=== PATIENT | male | born 1990 | race Caucasian/White ===

== ENCOUNTER 2017-01-12 22:11 | Emergency (ER) | payer MEDICAID ==
[~2017-01-12] VITALS: Ht 180.3 cm; Wt 72.6 kg
[~2017-01-12 22:11] MED LIST: /QUET10TA PO; /QUET25TA PO; DEPA500T2 PO; No Historical Meds; No Home Meds; QUET20XRTB PO; QUET30XR OR; RISP4TAB33 PO; SERO1TAB PO; SERO50TA PO; SEROQUEL 150 MG PO; VIMP50TA3 PO; ZYPR5TAB2 PO
[2017-01-12 22:54] LABS: MEAN CORPUSCULAR HEMOGLOBIN 30.1 pg (27.0-33.0); MEAN CORPUSCULAR VOLUME 88.5 fl (80.0-96.0); RED CELL DISTRIBUTION WIDTH 12.2 % (11.5-14.5); WHITE BLOOD COUNT 10.4 K/mm3 (4.0-10.0)
[2017-01-12 23:25] LABS: ALBUMIN 4.7 GM/DL (3.2-5.2); ALBUMIN/GLOBULIN RATIO 1.42 (1.00-1.93); ALKALINE PHOSPHATASE 134 U/L (45-117); ALT/SGPT 30 U/L (12-78); ANION GAP 9 MEQ/L (8-16); AST/SGOT 22 U/L (15-37); BILIRUBIN,DIRECT 0.2 MG/DL (0.0-0.2); BILIRUBIN,TOTAL 0.8 MG/DL (0.2-1.0); BLOOD UREA NITROGEN 7 MG/DL (7-18); CALCIUM LEVEL 9.1 MG/DL (8.5-10.1); CARBON DIOXIDE LEVEL 29 MEQ/L (21-32); CHLORIDE LEVEL 103 MEQ/L (98-107); CREATININE FOR GFR 0.81 MG/DL (0.70-1.30); GLOMERULAR FILTRATION RATE > 60.0 (>60); GLUCOSE, FASTING 76 MG/DL (70-105); POTASSIUM SERUM 3.6 MEQ/L (3.5-5.1); SODIUM LEVEL 141 MEQ/L (136-145)
[2017-01-13 00:49] VITALS: BP 128/85
== END 2017-01-13 00:09 | disposition home or self-care (01) ==
LOC: M ED 22:39
DX: F88 Other disorders of psychological development (principal); Z88.1 Allergy status to other antibiotic agents; Z79.899 Other long term (current) drug therapy; F31.9 Bipolar disorder, unspecified
CPT/HCPCS: 36415; 80048; 80076; 84443; 85027; 99284; G0480

== ENCOUNTER 2017-01-17 18:50 | Inpatient (IN) | payer MEDICAID ==
[2017-01-17 19:55] LABS: MEAN CORPUSCULAR HEMOGLOBIN 29.8 pg (27.0-33.0); MEAN CORPUSCULAR HGB CONC 34.4 g/dl (32.0-36.5); MEAN CORPUSCULAR VOLUME 86.7 fl (80.0-96.0); RED CELL DISTRIBUTION WIDTH 12.2 % (11.5-14.5); WHITE BLOOD COUNT 8.6 K/mm3 (4.0-10.0)
[2017-01-17 20:22] LABS: METHADONE URINE NEGATIVE (NEGATIVE)
[2017-01-17 20:33] LABS: ALBUMIN 4.5 GM/DL (3.2-5.2); ALKALINE PHOSPHATASE 118 U/L (45-117); ALT/SGPT 24 U/L (12-78); ANION GAP 10 MEQ/L (8-16); AST/SGOT 18 U/L (15-37); BILIRUBIN,DIRECT 0.1 MG/DL (0.0-0.2); BILIRUBIN,TOTAL 0.5 MG/DL (0.2-1.0); BLOOD UREA NITROGEN 6 MG/DL (7-18); CALCIUM LEVEL 9.3 MG/DL (8.5-10.1); CARBON DIOXIDE LEVEL 26 MEQ/L (21-32); CHLORIDE LEVEL 106 MEQ/L (98-107); CREATININE FOR GFR 0.75 MG/DL (0.70-1.30); GLOMERULAR FILTRATION RATE > 60.0 (>60); GLUCOSE, FASTING 92 MG/DL (70-105); POTASSIUM SERUM 3.6 MEQ/L (3.5-5.1); SODIUM LEVEL 142 MEQ/L (136-145); TOTAL PROTEIN 7.5 GM/DL (6.4-8.2)
[2017-01-17] MEDS ORDERED: OLANZapine INTRAMUSCULAR 10 MG VIAL (S0166) IM ONE (21:30)
[2017-01-17] MEDS ORDERED: ACETAMINOPHEN TAB 650MG DOSE (2X325MG) PO PRN (21:45)
[2017-01-17] MEDS ORDERED: MOM 30ML SUSPENSION UDC PO PRN (21:45)
[2017-01-17] MEDS ORDERED: traZODone 50 MG TAB PO PRN (21:45)
[2017-01-17] MEDS ORDERED: LORazepam 1 MG TAB PO PRN (21:45)
[2017-01-17] MEDS ORDERED: diphenhydrAMINE 25 MG CAP PO PRN (21:45)
[2017-01-17] MEDS ORDERED: MAALOX 30 ML SUSP *UDC PO PRN (21:45)
[2017-01-17] MEDS ORDERED: QUET30XR PO (22:02)
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
[2017-01-18 18:00] VITALS: BP 149/78
[2017-01-18] MEDS: QUEtiapine FUMARATE 50 MG TAB PO SCH ×2 (20:15→21:36)
[2017-01-18] MEDS: HALOPERIDOL 5 MG TAB PO PRN (20:15)
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
--- NOTE | 2017-01-19 16:32 | IPN ---
DATE: 01/19/2017 SUBJECTIVE: The patient is a 26-year-old man who was admitted on 01/17/2017 with a diagnosis of personality change due to traumatic brain injury. He had presented with paranoid ideation about others plotting to harm him. He is seen today and his treatment reviewed. He currently is being prescribed only quetiapine 50 mg orally at bedtime for insomnia. No other psychotropic medication is presently prescribed. In addition to the medication, he is provided with therapeutic programming including group and activity therapy. He reports that he has been doing fine and had a good sleep during the night. He says he is no longer experiencing thoughts that others are out to get him or to kill him. He has been observed interacting normally with his peers and participating in activities. He has not been a management problem since his admission. There is no evidence of him being depressed or experiencing any notable psychotic symptoms. OBSERVATION: His vital signs are stable. He is adequately groomed, appropriately dressed in [facility]. His speech is fluent. Thought process is coherent and logical. No evidence of delusion and he denies any form of hallucination. His mood is presently not depressed or elated. He denies suicidal thoughts, plan, or intent as well as homicidal ideation. ASSESSMENT: He continues to satisfy criteria for his diagnosis of personality change due to other medical condition, in this care traumatic brain injury. He has been noted to show some improvement in his thinking and presently does not appear to be at risk of danger to self or to others. There are no gross psychotic features present at this time. PLAN: Current treatment will be continued and patient reevaluated the next 24 hours and if stable will be scheduled for discharge the same day with appropriate followup plan.
[2017-01-19 18:00] VITALS: BP 133/82
[2017-01-19] MEDS: HALOPERIDOL 5 MG TAB PO PRN (21:09)
[2017-01-20 06:36] VITALS: BP 137/84
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
== END 2017-01-20 13:00 | disposition home or self-care (01) | DRG 752 ==
LOC: M ED 19:19 → M ED INP 21:49 → M PSY 22:20
PROVIDERS: ADMIT Psychiatry & Neurology Child & Adolescent Psychiatry; ATTEND Psychiatry & Neurology Psychiatry
DX: F60.89 Other specific personality disorders (principal); F17.200 Nicotine dependence, unspecified, uncomplicated; G47.00 Insomnia, unspecified

== ENCOUNTER 2017-01-31 18:22 | Emergency (ER) | payer MEDICAID ==
[~2017-01-31] VITALS: Ht 180.3 cm; Wt 77.1 kg
[~2017-01-31 18:22] MED LIST changes: +QUET30XR PO
[2017-01-31] MEDS ORDERED: HALDOL PO (18:40)
[2017-01-31 19:55] LABS: ALBUMIN 4.1 GM/DL (3.2-5.2); ALBUMIN/GLOBULIN RATIO 1.46 (1.00-1.93); ALKALINE PHOSPHATASE 129 U/L (45-117); ALT/SGPT 29 U/L (12-78); ANION GAP 7 MEQ/L (8-16); AST/SGOT 21 U/L (15-37); BILIRUBIN,DIRECT 0.1 MG/DL (0.0-0.2); BILIRUBIN,TOTAL 0.3 MG/DL (0.2-1.0); BLOOD UREA NITROGEN 8 MG/DL (7-18); CALCIUM LEVEL 8.5 MG/DL (8.5-10.1); CARBON DIOXIDE LEVEL 27 MEQ/L (21-32); CHLORIDE LEVEL 107 MEQ/L (98-107); CREATININE FOR GFR 0.68 MG/DL (0.70-1.30); GLOMERULAR FILTRATION RATE > 60.0 (>60); GLUCOSE, FASTING 114 MG/DL (70-105); POTASSIUM SERUM 3.7 MEQ/L (3.5-5.1); SODIUM LEVEL 141 MEQ/L (136-145); TOTAL PROTEIN 6.9 GM/DL (6.4-8.2)
[2017-01-31 19:58] LABS: MEAN CORPUSCULAR HEMOGLOBIN 30.1 pg (27.0-33.0); MEAN CORPUSCULAR HGB CONC 34.1 g/dl (32.0-36.5); MEAN CORPUSCULAR VOLUME 88.4 fl (80.0-96.0); RED CELL DISTRIBUTION WIDTH 12.6 % (11.5-14.5); WHITE BLOOD COUNT 7.4 K/mm3 (4.0-10.0)
[2017-01-31 20:43] LABS: METHADONE URINE NEGATIVE (NEGATIVE)
[2017-01-31 22:03] VITALS: BP 144/91
== END 2017-01-31 22:05 | disposition home or self-care (01) ==
LOC: M ED 19:44
DX: F88 Other disorders of psychological development (principal); Z79.899 Other long term (current) drug therapy; Z88.1 Allergy status to other antibiotic agents
CPT/HCPCS: 36415; 80048; 80076; 80306; 84443; 85027; 99283; G0480

== ENCOUNTER 2017-02-01 18:01 | Emergency (ER) | payer MEDICAID ==
[~2017-02-01] VITALS: Ht 177.8 cm; Wt 78.5 kg
[~2017-02-01 18:01] MED LIST changes: +HALDOL PO
[2017-02-01 19:36] VITALS: BP 146/72
== END 2017-02-01 19:38 | disposition home or self-care (01) ==
LOC: M ED 19:35
DX: F88 Other disorders of psychological development (principal); Z79.899 Other long term (current) drug therapy; Z88.1 Allergy status to other antibiotic agents

== ENCOUNTER 2017-04-09 15:21 | Emergency (ER) | payer MEDICAID ==
[~2017-04-09] VITALS: Ht 172.7 cm; Wt 72.7 kg
[2017-04-09 17:53] LABS: MEAN CORPUSCULAR HGB CONC 34.1 g/dl (32.0-36.5); RED CELL DISTRIBUTION WIDTH 12.9 % (11.5-14.5); WHITE BLOOD COUNT 6.5 K/mm3 (4.0-10.0)
[2017-04-09 18:12] LABS: METHADONE URINE NEGATIVE (NEGATIVE)
[2017-04-09 18:16] LABS: ALBUMIN 4.8 GM/DL (3.2-5.2); ALKALINE PHOSPHATASE 142 U/L (45-117); ALT/SGPT 33 U/L (12-78); ANION GAP 5 MEQ/L (8-16); AST/SGOT 17 U/L (15-37); BILIRUBIN,DIRECT 0.1 MG/DL (0.0-0.2); BILIRUBIN,TOTAL 0.6 MG/DL (0.2-1.0); BLOOD UREA NITROGEN 8 MG/DL (7-18); CALCIUM LEVEL 9.3 MG/DL (8.5-10.1); CARBON DIOXIDE LEVEL 31 MEQ/L (21-32); CHLORIDE LEVEL 101 MEQ/L (98-107); CREATININE FOR GFR 0.82 MG/DL (0.70-1.30); GLOMERULAR FILTRATION RATE > 60.0 (>60); GLUCOSE, FASTING 86 MG/DL (70-105); POTASSIUM SERUM 3.8 MEQ/L (3.5-5.1); SODIUM LEVEL 137 MEQ/L (136-145)
[2017-04-09] MEDS ORDERED: QUEtiapine FUMARATE 50 MG TAB PO ONE (20:45)
[2017-04-09] MEDS ORDERED: QUEtiapine FUMARATE **XR** 200MG TABLET PO SCH (21:00)
[2017-04-09] MEDS ORDERED: QUEtiapine FUMERATE XR 50 MG TABER PO SCH (21:01)
[2017-04-09] MEDS ORDERED: QUET150T PO (21:14)
[2017-04-09 23:46] VITALS: BP 124/68
--- NOTE | 2017-04-11 09:07 | ECGEPIP ---
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
== END 2017-04-09 23:51 ==
LOC: M ED 16:07
DX: F22 Delusional disorders (principal); F31.9 Bipolar disorder, unspecified; F43.10 Post-traumatic stress disorder, unspecified; F20.9 Schizophrenia, unspecified; R45.850 Homicidal ideations; G47.30 Sleep apnea, unspecified; G43.909 Migraine, unspecified, not intractable, without status migrainosus; G40.909 Epilepsy, unspecified, not intractable, without status epilepticus; R63.0 Anorexia; F17.200 Nicotine dependence, unspecified, uncomplicated; F12.10 Cannabis abuse, uncomplicated; Z79.899 Other long term (current) drug therapy; Z88.8 Allergy status to other drugs, medicaments and biological substances
CPT/HCPCS: 36415; 80048; 80076; 80306; 82550; 84443; 85027; 93005; 99285; G0480

== ENCOUNTER 2017-06-03 02:01 | Emergency (ER) | payer MEDICAID ==
[~2017-06-03] VITALS: Ht 177.8 cm; Wt 72.7 kg
[~2017-06-03 02:01] MED LIST changes: +QUET150T PO
[2017-06-03 03:10] VITALS: BP 140/90
== END 2017-06-03 03:12 | disposition home or self-care (01) ==
LOC: M ED 02:01
DX: F41.8 Other specified anxiety disorders (principal); Z60.9 Problem related to social environment, unspecified; F88 Other disorders of psychological development; F09 Unspecified mental disorder due to known physiological condition; D49.6 Neoplasm of unspecified behavior of brain; Z79.899 Other long term (current) drug therapy; Z88.8 Allergy status to other drugs, medicaments and biological substances

== ENCOUNTER 2017-06-27 19:57 | Emergency (ER) | payer MEDICAID ==
[2017-06-27 20:48] LABS: MEAN CORPUSCULAR HGB CONC 34.6 g/dl (32.0-36.5); MEAN CORPUSCULAR VOLUME 89.7 fl (80.0-96.0); WHITE BLOOD COUNT 7.6 K/mm3 (4.0-10.0)
[2017-06-27 21:20] LABS: METHADONE URINE NEGATIVE (NEGATIVE)
[2017-06-27 21:32] LABS: ALBUMIN 4.1 GM/DL (3.2-5.2); ALBUMIN/GLOBULIN RATIO 1.37 (1.00-1.93); ALKALINE PHOSPHATASE 116 U/L (45-117); ALT/SGPT 32 U/L (12-78); ANION GAP 9 MEQ/L (8-16); AST/SGOT 16 U/L (15-37); BILIRUBIN,DIRECT 0.1 MG/DL (0.0-0.2); BILIRUBIN,TOTAL 0.4 MG/DL (0.2-1.0); BLOOD UREA NITROGEN 9 MG/DL (7-18); CARBON DIOXIDE LEVEL 27 MEQ/L (21-32); CHLORIDE LEVEL 105 MEQ/L (98-107); GLOMERULAR FILTRATION RATE > 60.0 (>60); GLUCOSE, FASTING 92 MG/DL (70-105); POTASSIUM SERUM 4.3 MEQ/L (3.5-5.1); SODIUM LEVEL 141 MEQ/L (136-145); TOTAL PROTEIN 7.1 GM/DL (6.4-8.2)
[2017-06-27 22:01] VITALS: BP 138/92
== END 2017-06-27 22:04 | disposition home or self-care (01) ==
LOC: M ED 19:57
DX: F43.9 Reaction to severe stress, unspecified (principal); G40.909 Epilepsy, unspecified, not intractable, without status epilepticus; Z72.0 Tobacco use
CPT/HCPCS: 36415; 80048; 80076; 80307; 84443; 85027; 99284; G0480

== ENCOUNTER 2017-09-04 14:01 | Emergency (ER) | payer MEDICAID ==
[~2017-09-04] VITALS: Ht 180.3 cm; Wt 87.5 kg
[2017-09-04] MEDS ORDERED: ABIL1INJ2 (14:15)
[2017-09-04 15:00] VITALS: BP 127/86
[2017-09-04 15:04] LABS: MEAN CORPUSCULAR HEMOGLOBIN 30.1 pg (27.0-33.0); MEAN CORPUSCULAR HGB CONC 33.3 g/dl (32.0-36.5); MEAN CORPUSCULAR VOLUME 90.3 fl (80.0-96.0); PLATELET COUNT, AUTOMATED 247 10^3/uL (150-450); RED CELL DISTRIBUTION WIDTH 12.4 % (11.5-14.5); WHITE BLOOD COUNT 7.4 10^3/uL (4.0-10.0)
[2017-09-04 15:28] LABS: METHADONE URINE NEGATIVE (NEGATIVE)
[2017-09-04 15:32] LABS: ALBUMIN 4.1 GM/DL (3.2-5.2); ALBUMIN/GLOBULIN RATIO 1.21 (1.00-1.93); ALKALINE PHOSPHATASE 115 U/L (45-117); ALT/SGPT 47 U/L (12-78); ANION GAP 5 MEQ/L (8-16); AST/SGOT 22 U/L (7-37); BILIRUBIN,DIRECT 0.2 MG/DL (0.0-0.2); BILIRUBIN,TOTAL 0.6 MG/DL (0.2-1.0); BLOOD UREA NITROGEN 15 MG/DL (7-18); CALCIUM LEVEL 9.1 MG/DL (8.5-10.1); CARBON DIOXIDE LEVEL 30 MEQ/L (21-32); CHLORIDE LEVEL 106 MEQ/L (98-107); CREATININE FOR GFR 0.84 MG/DL (0.70-1.30); GLOMERULAR FILTRATION RATE > 60.0 (>60); GLUCOSE, FASTING 86 MG/DL (70-105); POTASSIUM SERUM 4.2 MEQ/L (3.5-5.1); SODIUM LEVEL 141 MEQ/L (136-145); TOTAL PROTEIN 7.5 GM/DL (6.4-8.2)
== END 2017-09-04 17:20 | disposition home or self-care (01) ==
LOC: M ED 14:01
DX: F33.9 Major depressive disorder, recurrent, unspecified (principal); F43.20 Adjustment disorder, unspecified; F20.9 Schizophrenia, unspecified; F90.9 Attention-deficit hyperactivity disorder, unspecified type; Z79.899 Other long term (current) drug therapy; Z88.8 Allergy status to other drugs, medicaments and biological substances
CPT/HCPCS: 36415; 80048; 80076; 80307; 84443; 85027; 99284; G0480

== ENCOUNTER 2017-10-18 12:40 | Emergency (ER) | payer MEDICAID | END 2017-10-18 14:07 | disposition home or self-care (01) | LOC: M ED 12:40 | DX: F22 Delusional disorders (principal); F43.20 Adjustment disorder, unspecified; Z79.899 Other long term (current) drug therapy; Z88.8 Allergy status to other drugs, medicaments and biological substances | CPT/HCPCS: 99284 ==

== ENCOUNTER 2017-11-11 13:48 | Inpatient (IN) | payer MEDICAID ==
[2017-11-11] MEDS: FOLIC ACID 1 MG TAB PO (09:00)
[2017-11-11] MEDS: MULTIVITAMINS/MINERALS THERAP 1 TAB PO (09:00)
[2017-11-11 14:14] LABS: HEMATOCRIT 48.9 % (42.0-52.0); HEMOGLOBIN 16.4 g/dl (14.0-18.0); MEAN CORPUSCULAR HEMOGLOBIN 29.8 pg (27.0-33.0); MEAN CORPUSCULAR HGB CONC 33.5 g/dl (32.0-36.5); MEAN CORPUSCULAR VOLUME 88.9 fl (80.0-96.0); PLATELET COUNT, AUTOMATED 234 10^3/uL (150-450); RED CELL DISTRIBUTION WIDTH 13.2 % (11.5-14.5); WHITE BLOOD COUNT 4.9 10^3/uL (4.0-10.0)
[2017-11-11 14:35] LABS: ALT/SGPT 54 U/L (12-78); ANION GAP 7 MEQ/L (8-16); AST/SGOT 27 U/L (7-37); BLOOD UREA NITROGEN 7 MG/DL (7-18); CARBON DIOXIDE LEVEL 31 MEQ/L (21-32); CHLORIDE LEVEL 107 MEQ/L (98-107); CREATININE FOR GFR 0.79 MG/DL (0.70-1.30); GLOMERULAR FILTRATION RATE > 60.0 (>60); GLUCOSE, FASTING 99 MG/DL (70-105); POTASSIUM SERUM 3.9 MEQ/L (3.5-5.1); SODIUM LEVEL 145 MEQ/L (136-145)
[2017-11-11 14:36] LABS: ACETAMINOPHEN LEVEL < 2.0 UG/ML (10.0-30.0); ALBUMIN 4.3 GM/DL (3.2-5.2); ALBUMIN/GLOBULIN RATIO 1.39 (1.00-1.93); ALKALINE PHOSPHATASE 111 U/L (45-117); BILIRUBIN,DIRECT 0.1 MG/DL (0.0-0.2); BILIRUBIN,TOTAL 0.4 MG/DL (0.2-1.0); ETHYL ALCOHOL (ETHANOL) 0.048 % (0.000-0.010); SALICYLATE LEVEL < 1.7 MG/DL (5.0-30.0); THYROID STIMULATING HORMONE 0.531 uIU/ML (0.358-3.740); TOTAL PROTEIN 7.4 GM/DL (6.4-8.2); VALPROIC ACID (DEPAKOTE) 3.2 UG/ML (50.0-100.0)
[2017-11-11 14:43] LABS: AMPHETAMINES LEVEL URINE NEGATIVE (NEGATIVE); BARBITURATES URINE NEGATIVE (NEGATIVE); BENZODIAZEPINES URINE NEGATIVE (NEGATIVE); CANNABINOIDS URINE NEGATIVE (NEGATIVE); COCAINE METABOLITE URINE NEGATIVE (NEGATIVE); METHADONE URINE NEGATIVE (NEGATIVE); OPIATES URINE NEGATIVE (NEGATIVE); PHENCYCLIDINE URINE NEGATIVE (NEGATIVE)
[2017-11-11] MEDS: LORazepam 1 MG TAB PO (14:58)
[2017-11-11] MEDS ORDERED: MAALOX 30 ML SUSP *UDC PO (19:00)
[2017-11-11] MEDS ORDERED: LORazepam 2 MG TAB PO (19:00)
[2017-11-11] MEDS ORDERED: MOM 30ML SUSPENSION UDC PO (19:00)
[2017-11-11] MEDS ORDERED: ACETAMINOPHEN TAB 650MG DOSE (2X325MG) PO (19:00)
[2017-11-11] MEDS: traZODone 50 MG TAB PO (21:56)
[2017-11-11] MEDS: THIAMINE 100 MG TAB PO (21:56)
[2017-11-11] MEDS: QUEtiapine FUMARATE 50 MG TAB PO (21:56)
[2017-11-12] MEDS: FOLIC ACID 1 MG TAB PO (09:00)
[2017-11-12] MEDS: THIAMINE 100 MG TAB PO ×2 (09:00→20:56)
[2017-11-12] MEDS: MULTIVITAMINS/MINERALS THERAP 1 TAB PO (09:00)
[2017-11-12] MEDS: QUEtiapine FUMARATE 50 MG TAB PO (20:56)
[2017-11-13] MEDS: THIAMINE 100 MG TAB PO ×2 (08:53→20:47)
[2017-11-13] MEDS: FOLIC ACID 1 MG TAB PO (08:53)
[2017-11-13] MEDS: MULTIVITAMINS/MINERALS THERAP 1 TAB PO (08:53)
[2017-11-13] MEDS: HALOPERIDOL 10 MG TAB PO (20:47)
[2017-11-13] MEDS: QUEtiapine FUMARATE 50 MG TAB PO (22:34)
[2017-11-14] MEDS: FOLIC ACID 1 MG TAB PO (08:56)
[2017-11-14] MEDS: HALOPERIDOL 10 MG TAB PO ×2 (08:57→19:54)
[2017-11-14] MEDS: THIAMINE 100 MG TAB PO (08:57)
[2017-11-14] MEDS: MULTIVITAMINS/MINERALS THERAP 1 TAB PO (08:57)
[2017-11-14] MEDS: QUEtiapine FUMARATE 50 MG TAB PO (22:39)
[2017-11-15] MEDS: FOLIC ACID 1 MG TAB PO (09:00)
[2017-11-15] MEDS: MULTIVITAMINS/MINERALS THERAP 1 TAB PO (09:00)
[2017-11-15] MEDS: HALOPERIDOL 10 MG TAB PO (09:18)
== END 2017-11-15 11:45 | disposition home or self-care (01) | DRG 750 ==
LOC: M ED 13:48 → M ED INP 17:05 → M PSY 18:00
DX: F25.0 Schizoaffective disorder, bipolar type (principal); G40.909 Epilepsy, unspecified, not intractable, without status epilepticus; F10.10 Alcohol abuse, uncomplicated; F17.200 Nicotine dependence, unspecified, uncomplicated; Z87.820 Personal history of traumatic brain injury; Z88.1 Allergy status to other antibiotic agents; Z79.899 Other long term (current) drug therapy

== ENCOUNTER 2017-11-17 15:30 | Emergency (ER) | payer MEDICAID | END 2017-11-17 17:36 | disposition home or self-care (01) | LOC: M ED 15:30 | DX: M79.1 Myalgia (principal); F31.9 Bipolar disorder, unspecified; F90.9 Attention-deficit hyperactivity disorder, unspecified type; G47.00 Insomnia, unspecified; Z88.8 Allergy status to other drugs, medicaments and biological substances | CPT/HCPCS: 99283 ==

== ENCOUNTER 2017-11-27 18:15 | Emergency (ER) | payer MEDICAID ==
[2017-11-27 21:16] LABS: HEMATOCRIT 47.1 % (42.0-52.0); HEMOGLOBIN 15.9 g/dl (14.0-18.0); MEAN CORPUSCULAR HEMOGLOBIN 29.7 pg (27.0-33.0); MEAN CORPUSCULAR HGB CONC 33.8 g/dl (32.0-36.5); PLATELET COUNT, AUTOMATED 267 10^3/uL (150-450); RED BLOOD COUNT 5.35 10^6/uL (4.30-6.10); RED CELL DISTRIBUTION WIDTH 12.8 % (11.5-14.5); WHITE BLOOD COUNT 6.5 10^3/uL (4.0-10.0)
[2017-11-27 21:45] LABS: ALBUMIN 4.2 GM/DL (3.2-5.2); ALBUMIN/GLOBULIN RATIO 1.31 (1.00-1.93); ALKALINE PHOSPHATASE 96 U/L (45-117); ALT/SGPT 32 U/L (12-78); ANION GAP 8 MEQ/L (8-16); AST/SGOT 13 U/L (7-37); BILIRUBIN,DIRECT 0.1 MG/DL (0.0-0.2); BILIRUBIN,TOTAL 0.4 MG/DL (0.2-1.0); BLOOD UREA NITROGEN 4 MG/DL (7-18); CALCIUM LEVEL 8.4 MG/DL (8.5-10.1); CARBON DIOXIDE LEVEL 26 MEQ/L (21-32); CHLORIDE LEVEL 110 MEQ/L (98-107); CREATININE FOR GFR 0.68 MG/DL (0.70-1.30); ETHYL ALCOHOL (ETHANOL) 0.242 % (0.000-0.010); GLOMERULAR FILTRATION RATE > 60.0 (>60); GLUCOSE, FASTING 90 MG/DL (70-100); POTASSIUM SERUM 3.8 MEQ/L (3.5-5.1); SALICYLATE LEVEL < 1.7 MG/DL (5.0-30.0); SODIUM LEVEL 144 MEQ/L (136-145); THYROID STIMULATING HORMONE 0.869 uIU/ML (0.358-3.740); TOTAL PROTEIN 7.4 GM/DL (6.4-8.2)
[2017-11-27 21:53] LABS: ACETAMINOPHEN LEVEL < 2.0 UG/ML (10.0-30.0)
== END 2017-11-28 06:54 | disposition home or self-care (01) ==
LOC: M ED 11-28 06:54
DX: F10.220 Alcohol dependence with intoxication, uncomplicated (principal); Y90.1 Blood alcohol level of 20-39 mg/100 ml; F31.9 Bipolar disorder, unspecified; F43.10 Post-traumatic stress disorder, unspecified; F41.9 Anxiety disorder, unspecified; F20.9 Schizophrenia, unspecified; G43.909 Migraine, unspecified, not intractable, without status migrainosus; G40.909 Epilepsy, unspecified, not intractable, without status epilepticus; Z87.820 Personal history of traumatic brain injury; Z88.8 Allergy status to other drugs, medicaments and biological substances
CPT/HCPCS: G0480

== ENCOUNTER 2018-02-02 20:50 | Observation (INO) | payer OTHER, MEDICAID ==
[2018-02-02] MEDS ORDERED: ONDANSETRON 4MG/2ML VIAL (J2405) IV (22:45)
[2018-02-02] MEDS ORDERED: MORPHINE 2 MG/ML 1ML SYRINGE (J2270) IV (22:45)
[2018-02-02] MEDS: CIPROFLOXACIN 400 MG in APPROPRIATE DILUENT 1 EA IV (23:12)
[2018-02-02] MEDS: D5W/LR 1,000 ML IV (23:13)
[2018-02-03] MEDS: ACETAMINOPHEN TAB 650MG DOSE (2X325MG) PO (02:02)
[2018-02-03] MEDS ORDERED: MORPHINE 4 MG/ML 1ML VIAL/SYRINGE (J2270) IV (03:50)
[2018-02-03] MEDS: D5W/LR 1,000 ML IV ×2 (08:25→14:46)
[2018-02-03] MEDS: CIPROFLOXACIN 400 MG in APPROPRIATE DILUENT 1 EA IV (11:21)
[2018-02-03] MEDS ORDERED: fentaNYL 100 MCG/2 ML INJECTION (J3010) As Ordered (14:59)
[2018-02-03] MEDS ORDERED: PROPOFOL 200 MG/20 ML VIAL As Ordered (14:59)
[2018-02-03] MEDS ORDERED: MIDAZOLAM INJ 2 MG/2 ML VIAL (J2250) As Ordered (14:59)
[2018-02-03] MEDS ORDERED: LIDOCAINE 2% INJ 100 MG/5 ML SDV (FOR ANES.) As Ordered (14:59)
[2018-02-03 15:39] LABS: HEMATOCRIT 43.1 % (42.0-52.0); HEMOGLOBIN 15.1 g/dl (13.5-17.5); MEAN CORPUSCULAR HEMOGLOBIN 30.1 pg (27.0-33.0); PLATELET COUNT, AUTOMATED 186 10^3/uL (150-450); RED BLOOD COUNT 5.01 10^6/uL (4.30-6.10); RED CELL DISTRIBUTION WIDTH 11.8 % (11.5-14.5); WHITE BLOOD COUNT 9.2 10^3/uL (4.0-10.0)
[2018-02-03 15:56] LABS: ANION GAP 6 MEQ/L (8-16); BLOOD UREA NITROGEN 9 MG/DL (7-18); CALCIUM LEVEL 8.4 MG/DL (8.5-10.1); CARBON DIOXIDE LEVEL 26 MEQ/L (21-32); CHLORIDE LEVEL 113 MEQ/L (98-107); CREATININE FOR GFR 1.28 MG/DL (0.70-1.30); GLOMERULAR FILTRATION RATE > 60.0 (>60); GLUCOSE, FASTING 101 MG/DL (70-100); SODIUM LEVEL 145 MEQ/L (136-145)
[2018-02-03] MEDS ORDERED: CONRAY-60 60% 50ML VIAL (Q9961) As Ordered (17:07)
[2018-02-03] MEDS ORDERED: dexameTHASONE 4 MG/ML 1ML VIAL (J1100) As Ordered ×2 (17:32)
[2018-02-03] MEDS ORDERED: ONDANSETRON 4MG/2ML VIAL (J2405) As Ordered (17:32)
[2018-02-03] MEDS ORDERED: KETOROLAC 60 MG/2 ML VIAL (J1885) As Ordered (17:33)
[2018-02-03] MEDS: HALOPERIDOL 2 MG TAB PO (20:48)
[2018-02-03] MEDS: VALPROIC ACID 250 MG CAP PO (20:48)
[2018-02-05 12:07] LABS: HIV 1&2 SCREEN CENTAUR NEGATIVE (NEGATIVE)
== END 2018-02-03 22:43 ==
LOC: M ICU 02-03 03:47 → M MSPAV 02-03 14:12 → M ED 20:50 → M ED INP 20:51
PROVIDERS: Urology Pediatric Urology
DX: N20.1 Calculus of ureter (principal); F99 Mental disorder, not otherwise specified; G40.909 Epilepsy, unspecified, not intractable, without status epilepticus; Z87.820 Personal history of traumatic brain injury; R51 Headache; F17.200 Nicotine dependence, unspecified, uncomplicated; Z88.1 Allergy status to other antibiotic agents; Z79.899 Other long term (current) drug therapy
CPT/HCPCS: 52356

== ENCOUNTER 2018-10-03 22:20 | Emergency (ER) | payer MEDICAID, OTHER | END 2018-10-04 01:02 | disposition home or self-care (01) | LOC: M ED 22:20 | DX: Z60.8 Other problems related to social environment (principal); F43.20 Adjustment disorder, unspecified; Z88.8 Allergy status to other drugs, medicaments and biological substances; Z87.891 Personal history of nicotine dependence | CPT/HCPCS: 99284 ==

== ENCOUNTER 2018-10-20 22:27 | Emergency (ER) | payer MEDICAID ==
[~2018-10-20] VITALS: Ht 177.8 cm; Wt 90.5 kg
[~2018-10-20 22:27] MED LIST changes: +ABIL1INJ2; +DEPA1TAB3 PO; +FLOM0.4C39 PO; +FOLI1TAB11 PO; +HALO1TA PO; +HALO1TAB19 PO; +HALO1TAB29 PO; +NITR100C39 PO; +OXYC1TAB23 PO; +PATIENT COMMENT; -QUET150T PO; +QUET150T2 PO; +QUET1TAB10 PO; -QUET20XRTB PO; -QUET30XR PO; +QUET5TAB PO; +SERO200T43 PO; +SERO300T20 PO; +TRAZO50TA PO; +VALP1CAP2 PO; +VITMTA PO
[2018-10-21] MEDS ORDERED: QUET1TAB8 PO (00:02)
[2018-10-21] MEDS ORDERED: DIVA250T7 PO (00:02)
[2018-10-21 00:08] VITALS: BP 151/104
== END 2018-10-21 00:13 | disposition home or self-care (01) ==
LOC: M ED 22:27
DX: Z59.0 Homelessness (principal); Z79.899 Other long term (current) drug therapy; Z88.8 Allergy status to other drugs, medicaments and biological substances

== ENCOUNTER 2019-01-17 15:36 | Emergency (ER) | payer MEDICAID ==
[~2019-01-17 15:36] MED LIST changes: -/QUET10TA PO; -/QUET25TA PO; +DIVA250T7 PO; +HALO10TA20 PO; -HALO1TAB29 PO; +QUET1TAB8 PO; -QUET30XR OR; +SERO1TAB3 PO; +SERO300T PO; +SERO300T20 OR; -SERO300T20 PO
[2019-01-17 16:11] LABS: HEMOGLOBIN 14.7 g/dl (13.5-17.5); MEAN CORPUSCULAR HEMOGLOBIN 29.8 pg (27.0-33.0); MEAN CORPUSCULAR HGB CONC 33.4 g/dl (32.0-36.5); MEAN CORPUSCULAR VOLUME 89.1 fl (80.0-96.0); PLATELET COUNT, AUTOMATED 272 10^3/uL (150-450); RED BLOOD COUNT 4.94 10^6/uL (4.30-6.10); WHITE BLOOD COUNT 7.5 10^3/uL (4.0-10.0)
[2019-01-17 16:43] LABS: ACETAMINOPHEN LEVEL < 2.0 UG/ML (10.0-30.0); ALBUMIN 4.2 GM/DL (3.2-5.2); ALT/SGPT 59 U/L (12-78); BILIRUBIN,DIRECT 0.1 MG/DL (0.0-0.2); BILIRUBIN,TOTAL 0.4 MG/DL (0.2-1.0); BLOOD UREA NITROGEN 7 MG/DL (7-18); CALCIUM LEVEL 8.7 MG/DL (8.5-10.1); CARBON DIOXIDE LEVEL 26 MEQ/L (21-32); CHLORIDE LEVEL 107 MEQ/L (98-107); CREATININE FOR GFR 0.76 MG/DL (0.70-1.30); ETHYL ALCOHOL (ETHANOL) < 0.003 % (0.000-0.010); GLOMERULAR FILTRATION RATE > 60.0 (>60); GLUCOSE, FASTING 85 MG/DL (70-100); POTASSIUM SERUM 3.5 MEQ/L (3.5-5.1); SALICYLATE LEVEL < 1.7 MG/DL (5.0-30.0); SODIUM LEVEL 141 MEQ/L (136-145)
[2019-01-17 17:37] LABS: AMPHETAMINES LEVEL URINE NEGATIVE (NEGATIVE); BARBITURATES URINE NEGATIVE (NEGATIVE); BENZODIAZEPINES URINE NEGATIVE (NEGATIVE); CANNABINOIDS URINE NEGATIVE (NEGATIVE); COCAINE METABOLITE URINE NEGATIVE (NEGATIVE); METHADONE URINE NEGATIVE (NEGATIVE); OPIATES URINE NEGATIVE (NEGATIVE); PHENCYCLIDINE URINE NEGATIVE (NEGATIVE)
[2019-01-17 20:24] VITALS: BP 145/91
[2019-01-18] MEDS ORDERED: IBUP80TA PO (09:17)
== END 2019-01-17 20:25 | disposition home or self-care (01) ==
LOC: M ED 15:36
DX: Z04.6 Encounter for general psychiatric examination, requested by authority (principal); F43.0 Acute stress reaction; F31.9 Bipolar disorder, unspecified; F43.10 Post-traumatic stress disorder, unspecified; Z86.69 Personal history of other diseases of the nervous system and sense organs; Z98.890 Other specified postprocedural states; Z88.1 Allergy status to other antibiotic agents; Z79.899 Other long term (current) drug therapy
CPT/HCPCS: 36415; 80048; 80076; 80307; 84443; 85027; 99284; G0480

== ENCOUNTER 2019-01-18 02:11 | Emergency (ER) | payer MEDICAID ==
[~2019-01-18] VITALS: Ht 182.9 cm; Wt 92.9 kg
[2019-01-18 02:11] VITALS: BP 136/76
--- NOTE | 2019-01-18 07:57 | REP ---
Left tib-fib series: Four views. History: Trauma. Findings: Four views of the left tibia and fibula demonstrate normal bones, joints and soft tissues. No fracture or subluxation is seen. Impression: No fracture noted. Electronically Signed by Jim Starr MD 01/18/2019 07:48 A
[2019-01-18] MEDS ORDERED: IBUP80TA PO (09:17)
== END 2019-01-18 03:40 | disposition home or self-care (01) ==
LOC: M ED 02:11
DX: S80.12XA Contusion of left lower leg, initial encounter (principal); W10.9XXA Fall (on) (from) unspecified stairs and steps, initial encounter; Y92.009 Unspecified place in unspecified non-institutional (private) residence as the place of occurrence of the external cause; Z88.8 Allergy status to other drugs, medicaments and biological substances

== ENCOUNTER 2019-01-18 07:37 | Emergency (ER) | payer MEDICAID ==
[~2019-01-18] VITALS: Ht 175.3 cm; Wt 92.9 kg
[2019-01-18 07:38] VITALS: BP 138/89
[2019-01-18] MEDS ORDERED: IBUP80TA PO (09:17)
[2019-01-18] MEDS ORDERED: IBUPROFEN 800 MG TAB PO ONE (09:30)
== END 2019-01-18 09:46 | disposition home or self-care (01) ==
LOC: M ED 07:37
DX: S80.12XD Contusion of left lower leg, subsequent encounter (principal); W10.8XXD Fall (on) (from) other stairs and steps, subsequent encounter; Y92.009 Unspecified place in unspecified non-institutional (private) residence as the place of occurrence of the external cause; Z88.8 Allergy status to other drugs, medicaments and biological substances

== ENCOUNTER 2019-08-20 21:31 | Emergency (ER) | payer MEDICAID ==
[~2019-08-20] VITALS: Ht 177.8 cm; Wt 98.9 kg
[~2019-08-20 21:31] MED LIST changes: +IBUP80TA PO; +TRAZ1TAB10 PO; -TRAZO50TA PO
[2019-08-20] MEDS ORDERED: QUET1TAB10 PO (21:41)
[2019-08-20 22:26] LABS: BASO # 0.1 10^3/uL (0.0-0.2); BASO % 0.6 % (0.0-1.0); EOS # 0.1 10^3/uL (0.0-0.5); EOS % 1.2 % (0.0-3.0); HEMATOCRIT 46.2 % (42.0-52.0); HEMOGLOBIN 15.8 g/dl (13.5-17.5); LYMPH # 2.6 10^3/uL (1.5-5.0); LYMPH % 28.6 % (24.0-44.0); MEAN CORPUSCULAR HEMOGLOBIN 29.8 pg (27.0-33.0); MEAN CORPUSCULAR HGB CONC 34.2 g/dl (32.0-36.5); MONO # 0.7 10^3/uL (0.0-0.8); MONO % 7.8 % (0.0-5.0); NEUTROPHILS # 5.5 10^3/uL (1.5-8.5); NEUTROPHILS % 61.4 % (36.0-66.0); PLATELET COUNT, AUTOMATED 268 10^3/uL (150-450); RED BLOOD COUNT 5.31 10^6/uL (4.30-6.10)
[2019-08-20 22:44] LABS: BLOOD UREA NITROGEN 11 MG/DL (7-18); CALCIUM LEVEL 9.2 MG/DL (8.5-10.1); CARBON DIOXIDE LEVEL 24 MEQ/L (21-32); CHLORIDE LEVEL 111 MEQ/L (98-107); CK-MB VALUE MASS 1.4 NG/ML (<3.6); CPK CREATINE PHOSPHOKINASE 222 U/L (39-308); CREATININE FOR GFR 0.79 MG/DL (0.70-1.30); GLOMERULAR FILTRATION RATE > 60.0 (>60); GLUCOSE, FASTING 94 MG/DL (70-100); MB/CK RELATIVE INDEX 0.63 (< OR =4); POTASSIUM SERUM 3.6 MEQ/L (3.5-5.1); SODIUM LEVEL 140 MEQ/L (136-145); TROPONIN I 0.02 NG/ML (< 0.10)
--- NOTE | 2019-08-20 22:51 | ECGEPIP ---
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
[2019-08-21 00:38] VITALS: BP 154/95
--- NOTE | 2019-08-21 08:00 | REP ---
Clinical: Acute chest pain . Comparison: None . Technique: PA and lateral. Findings: The mediastinum and cardiac silhouette are normal. The lung fry are clear and without acute consolidation, effusion, or pneumothorax. The skeletal structures are intact and normal. Impression: 1. No acute cardiopulmonary process. Electronically Signed by Ja Murphy MD 08/21/2019 07:52 A
== END 2019-08-21 00:42 | disposition left against medical advice (07) ==
LOC: M ED 21:31
DX: R07.89 Other chest pain (principal)

== ENCOUNTER 2019-11-22 18:21 | Emergency (ER) | payer MEDICAID ==
[2019-11-22 18:23] VITALS: BP 176/94
== END 2019-11-22 21:00 | disposition home or self-care (01) ==
LOC: M ED 18:21
DX: F43.9 Reaction to severe stress, unspecified (principal); R45.4 Irritability and anger; F31.9 Bipolar disorder, unspecified; F90.9 Attention-deficit hyperactivity disorder, unspecified type; G47.00 Insomnia, unspecified; F42.9 Obsessive-compulsive disorder, unspecified; Z79.899 Other long term (current) drug therapy

== ENCOUNTER 2020-02-14 12:40 | Emergency (ER) | payer MEDICAID ==
[~2020-02-14 12:40] MED LIST changes: +QUET100T2 PO; -QUET1TAB8 PO
[2020-02-14 14:56] VITALS: BP 137/78
== END 2020-02-14 14:58 | disposition home or self-care (01) ==
LOC: M ED 12:40
DX: F43.0 Acute stress reaction (principal); F99 Mental disorder, not otherwise specified; F17.200 Nicotine dependence, unspecified, uncomplicated; Z88.1 Allergy status to other antibiotic agents

== ENCOUNTER 2020-03-22 22:23 | Emergency (ER) | payer MEDICAID ==
[~2020-03-22] VITALS: Ht 172.7 cm; Wt 86.4 kg
[~2020-03-22 22:23] MED LIST changes: -QUET1TAB10 PO; +QUET300T2 PO; +QUET50TA3 PO; -QUET5TAB PO
[2020-03-22] MEDS ORDERED: SERO1TAB2 PO (22:44)
[2020-03-22 22:55] VITALS: BP 141/92
[2020-03-22 22:57] LABS: HEMATOCRIT 44.2 % (42.0-52.0); HEMOGLOBIN 15.2 g/dl (13.5-17.5); MEAN CORPUSCULAR HEMOGLOBIN 29.8 pg (27.0-33.0); MEAN CORPUSCULAR HGB CONC 34.4 g/dl (32.0-36.5); MEAN CORPUSCULAR VOLUME 86.7 fl (80.0-96.0); PLATELET COUNT, AUTOMATED 287 10^3/uL (150-450); WHITE BLOOD COUNT 8.6 10^3/uL (4.0-10.0)
[2020-03-22 23:34] LABS: ACETAMINOPHEN LEVEL < 2.0 UG/ML (10.0-30.0); ALBUMIN 4.3 GM/DL (3.2-5.2); ALT/SGPT 29 U/L (12-78); BILIRUBIN,DIRECT 0.2 MG/DL (0.0-0.2); BILIRUBIN,TOTAL 0.8 MG/DL (0.2-1.0); BLOOD UREA NITROGEN 10 MG/DL (7-18); CARBON DIOXIDE LEVEL 28 MEQ/L (21-32); CHLORIDE LEVEL 107 MEQ/L (98-107); CREATININE FOR GFR 0.75 MG/DL (0.70-1.30); ETHYL ALCOHOL (ETHANOL) < 0.003 % (0.000-0.010); GLOMERULAR FILTRATION RATE > 60.0 (>60); GLUCOSE, FASTING 90 MG/DL (70-100); POTASSIUM SERUM 3.6 MEQ/L (3.5-5.1); SALICYLATE LEVEL < 1.7 MG/DL (5.0-30.0); SODIUM LEVEL 140 MEQ/L (136-145); TOTAL PROTEIN 7.1 GM/DL (6.4-8.2)
== END 2020-03-23 00:07 | disposition home or self-care (01) ==
LOC: M ED 22:23
DX: R45.86 Emotional lability (principal); F29 Unspecified psychosis not due to a substance or known physiological condition; Z88.1 Allergy status to other antibiotic agents; Z79.899 Other long term (current) drug therapy
CPT/HCPCS: 36415; 80048; 80076; 84443; 85027; 99284; G0480

== ENCOUNTER 2020-05-21 12:22 | Emergency (ER) | payer MEDICAID ==
[~2020-05-21 12:22] MED LIST changes: +QUET1TAB10 PO; -QUET300T2 PO; -QUET50TA3 PO; +QUET5TAB PO; +SERO1TAB2 PO
== END 2020-05-21 18:14 | disposition home or self-care (01) ==
LOC: M ED 12:22
DX: F41.0 Panic disorder [episodic paroxysmal anxiety] (principal); Z79.899 Other long term (current) drug therapy

== ENCOUNTER 2020-07-12 21:41 | Emergency (ER) | payer MEDICAID ==
[~2020-07-12] VITALS: Ht 182.9 cm; Wt 83.1 kg
[2020-07-12] MEDS ORDERED: NS 1,000 ML IV ONE (22:30)
[2020-07-12 22:53] LABS: BASO % 0.5 % (0.0-1.0); EOS # 0.2 10^3/uL (0.0-0.5); EOS % 2.1 % (0.0-3.0); HEMATOCRIT 52.2 % (42.0-52.0); HEMOGLOBIN 17.3 g/dl (13.5-17.5); LYMPH % 23.1 % (24.0-44.0); MEAN CORPUSCULAR HEMOGLOBIN 30.1 pg (27.0-33.0); MEAN CORPUSCULAR HGB CONC 33.1 g/dl (32.0-36.5); MEAN CORPUSCULAR VOLUME 90.9 fl (80.0-96.0); MONO # 0.6 10^3/uL (0.0-0.8); NEUTROPHILS # 5.7 10^3/uL (1.5-8.5); NEUTROPHILS % 66.8 % (36.0-66.0); PLATELET COUNT, AUTOMATED 264 10^3/uL (150-450); RED BLOOD COUNT 5.74 10^6/uL (4.30-6.10); WHITE BLOOD COUNT 8.5 10^3/uL (4.0-10.0)
[2020-07-12 23:18] LABS: BLOOD UREA NITROGEN 16 MG/DL (7-18); CARBON DIOXIDE LEVEL 28 MEQ/L (21-32); CHLORIDE LEVEL 107 MEQ/L (98-107); CREATININE FOR GFR 0.73 MG/DL (0.70-1.30); GLOMERULAR FILTRATION RATE > 60.0 (>60); GLUCOSE, FASTING 93 MG/DL (70-100); POTASSIUM SERUM 4.1 MEQ/L (3.5-5.1); SODIUM LEVEL 138 MEQ/L (136-145)
[2020-07-13 00:15] VITALS: BP 129/77
== END 2020-07-13 00:25 | disposition home or self-care (01) ==
LOC: M ED 21:41
DX: R42 Dizziness and giddiness (principal); F20.0 Paranoid schizophrenia; Z86.011 Personal history of benign neoplasm of the brain; F12.10 Cannabis abuse, uncomplicated; Z79.899 Other long term (current) drug therapy; Z88.1 Allergy status to other antibiotic agents

== ENCOUNTER 2020-07-23 18:47 | Emergency (ER) | payer MEDICAID ==
[2020-07-23 18:59] VITALS: BP 144/78
== END 2020-07-23 20:07 | disposition home or self-care (01) ==
LOC: M ED 18:47
DX: R45.4 Irritability and anger (principal); Z87.820 Personal history of traumatic brain injury; Z87.442 Personal history of urinary calculi; F12.10 Cannabis abuse, uncomplicated; Z79.899 Other long term (current) drug therapy; Z88.1 Allergy status to other antibiotic agents

== ENCOUNTER 2020-08-20 10:42 | Inpatient (IN) | payer MEDICAID ==
[~2020-08-20] VITALS: Ht 182.9 cm; Wt 80.1 kg
[2020-08-20 11:22] LABS: HEMOGLOBIN 17.1 g/dl (13.5-17.5); MEAN CORPUSCULAR HEMOGLOBIN 29.6 pg (27.0-33.0); MEAN CORPUSCULAR HGB CONC 32.9 g/dl (32.0-36.5); PLATELET COUNT, AUTOMATED 297 10^3/uL (150-450); RED BLOOD COUNT 5.78 10^6/uL (4.30-6.10); WHITE BLOOD COUNT 6.2 10^3/uL (4.0-10.0)
[2020-08-20 11:59] LABS: ACETAMINOPHEN LEVEL < 2.0 UG/ML (10.0-30.0); ALBUMIN 4.4 GM/DL (3.2-5.2); ALT/SGPT 31 U/L (12-78); BILIRUBIN,DIRECT 0.1 MG/DL (0.0-0.2); BILIRUBIN,TOTAL 0.3 MG/DL (0.2-1.0); BLOOD UREA NITROGEN 4 MG/DL (7-18); CALCIUM LEVEL 8.8 MG/DL (8.5-10.1); CARBON DIOXIDE LEVEL 29 MEQ/L (21-32); CHLORIDE LEVEL 111 MEQ/L (98-107); CREATININE FOR GFR 0.72 MG/DL (0.70-1.30); ETHYL ALCOHOL (ETHANOL) 0.264 % (0.000-0.010); GLOMERULAR FILTRATION RATE > 60.0 (>60); GLUCOSE, FASTING 95 MG/DL (70-100); POTASSIUM SERUM 3.7 MEQ/L (3.5-5.1); SALICYLATE LEVEL < 1.7 MG/DL (5.0-30.0); SODIUM LEVEL 147 MEQ/L (136-145); THYROID STIMULATING HORMONE 0.542 uIU/ML (0.358-3.740); TOTAL PROTEIN 7.8 GM/DL (6.4-8.2)
[2020-08-20] MEDS ORDERED: LORazepam 2 MG TAB PO STA (16:24)
[2020-08-20] MEDS ORDERED: LORazepam 2 MG/ML VIAL IM ONE (17:15)
[2020-08-20] MEDS ORDERED: diphenhydrAMINE 50MG/ML VIAL (J1200) IM ONE (17:15)
[2020-08-20] MEDS ORDERED: HALOPERIDOL 5MG/ML VIAL (J1630 PER 1) IM ONE (17:15)
[2020-08-20 19:16] LABS: AMPHETAMINES LEVEL URINE NEGATIVE (NEGATIVE); BARBITURATES URINE NEGATIVE (NEGATIVE); BENZODIAZEPINES URINE NEGATIVE (NEGATIVE); CANNABINOIDS URINE NEGATIVE (NEGATIVE); COCAINE METABOLITE URINE NEGATIVE (NEGATIVE); METHADONE URINE NEGATIVE (NEGATIVE); OPIATES URINE NEGATIVE (NEGATIVE); PHENCYCLIDINE URINE NEGATIVE (NEGATIVE)
[2020-08-20] MEDS ORDERED: OLANZapine ORAL DISINTEGRATING TAB 5MG PO PRN (22:15)
[2020-08-20] MEDS ORDERED: MAALOX 30 ML SUSP *UDC PO PRN (22:15)
[2020-08-20] MEDS ORDERED: traZODone 50 MG TAB PO PRN (22:15)
[2020-08-20] MEDS ORDERED: ACETAMINOPHEN TAB 650MG DOSE (2X325MG) PO PRN (22:15)
[2020-08-20] MEDS ORDERED: MOM 30ML SUSPENSION UDC PO PRN (22:15)
[2020-08-21] MEDS ORDERED: LORazepam 2 MG TAB PO PRN
[2020-08-21 00:06] VITALS: BP 148/88
[2020-08-21] MEDS: THIAMINE 100 MG TAB PO SCH ×3 (00:30→20:40)
[2020-08-21 06:56] VITALS: BP 121/75
[2020-08-21] MEDS: FOLIC ACID 1 MG TAB PO SCH (09:00)
[2020-08-21] MEDS: MULTIVITAMINS/MINERALS THERAP 1 TAB PO SCH (09:00)
--- NOTE | 2020-08-21 11:03 | MHHPEPDOC ---
[facility] History & Physical History and Physical DATE OF ADMISSION: Aug 20, 2020 at 22:12 Subjective HPI/Psych ROS: The patient a 29-year-old man is admitted to the inpatient mental health unit, he was found intoxicated but was also significantly paranoid. He is a long history of psychotic illness and was notably agitated in the ER required restraints. He was admitted due to continual paranoid thoughts and disorganization. When he was met with he was quite paranoid and did not wish to speak at length about many topics. He reported feeling afraid of people but that this was due to other people's problems. He was quite paranoid and disorganized. Information was extracted from the chart to help complete the no. Was unable to obtain a full and complete review of psychiatric symptoms. MEDICAL/PSYCHIATRIC HISTORY: Appears to have diagnosis of psychotic illness, with multiple previous admissions, reports being on Seroquel 300 mg nightly, has not been taking recently. FAMILY HISTORY: Unclear SOCIAL HISTORY - OCCUPATION: Unemployed SOCIAL HISTORY - LIVING SITUATION: , living in a [facility] subsidized apartment SOCIAL HISTORY- ADDICTION: Reports alcohol use, but vehemently denies being addicted, Stern history DUI and legal problems Objective General: poor Speech: rapid Thought processes: tangential Thought content: psychotic delusions Abstract reasoning, and computation: impaired Description of associations: imparied Description of abnormal or psychotic thoughts:Unclear, appears to have psychotic processes going on. Judgment: poor Insight: poor Orientation: Alert and orientated 3 Recent and remote memory: Intact Attention span and concentration: impaired secondary to thought process Fund of knowledge: unable to determine Mood: "fine" Affect: flat, little reactivity Assessment Schizophrenia Plan Will resume Seroquel 300 mg nightly as scheduled rather than PRN Treatment priorities are 1.. Altered thoughts 2.. Substance abuse Stay for 2-5 days. Vital Signs Vital Signs Date Time Temp Pulse Resp B/P (MAP) Pulse Ox O2 Delivery O2 Flow Rate FiO2 08/21/20 06:56 98.6 59 14 121/75 (90) 96 08/21/20 00:06 Room Air Laboratory Data 24H Labs Laboratory Tests 2 08/20/20 11:14: Nucleated Red Blood Cells % (auto) 0.0, Anion Gap 7L, Glomerular Filtration Rate > 60.0, Calcium Level 8.8, Total Bilirubin 0.3, Direct Bilirubin 0.1, Aspartate Amino Transf (AST/SGOT) 17, Alanine Aminotransferase (ALT/SGPT) 31, Alkaline Phosphatase 128H, Total Protein 7.8, Albumin 4.4, Albumin/Globulin Ratio 1.3, Thyroid Stimulating Hormone (TSH) 0.542, Salicylates Level < 1.7L, Acetaminophen Level < 2.0L, Ethyl Alcohol Level 0.264H 08/20/20 18:39: Urine Opiates Screen NEGATIVE, Urine Methadone Screen NEGATIVE, Urine Barbiturates Screen NEGATIVE, Urine Phencyclidine Screen NEGATIVE, Urine Amphetamines Screen NEGATIVE, Urine Benzodiazepines Screen NEGATIVE, Urine Cocaine Metabolite Screen NEGATIVE, Urine Cannabinoids Screen NEGATIVE CBC/BMP Laboratory Tests 08/20/20 11:14 Medications Scheduled PRN Quetiapine Fumarate (Seroquel) 300 Mg Tablet, 300 MG PO QHS PRN for INSOMNIA, (Reported) Allergies Coded Allergies: cefuroxime (Verified Allergy, Unknown, 08/20/19) ANTONINO PARRISH DO Aug 21, 2020 11:03
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
[2020-08-21] MEDS ORDERED: LORazepam 0.5 MG TAB PO ONE (13:15)
[2020-08-21 14:30] VITALS: BP 143/90
[2020-08-21 16:03] VITALS: BP 143/90
[2020-08-21] MEDS ORDERED: QUEtiapine FUMARATE 200 MG TAB PO SCH (21:00)
[2020-08-22 06:47] VITALS: BP 141/89
[2020-08-22] MEDS: FOLIC ACID 1 MG TAB PO SCH (09:00)
[2020-08-22] MEDS: MULTIVITAMINS/MINERALS THERAP 1 TAB PO SCH (09:00)
[2020-08-22] MEDS: THIAMINE 100 MG TAB PO SCH (09:00)
[2020-08-22 11:19] VITALS: BP 141/89
[2020-08-22] MEDS ORDERED: HALOPERIDOL 5MG/ML VIAL (J1630 PER 1) IM STA (12:49)
[2020-08-22] MEDS ORDERED: diphenhydrAMINE 50MG/ML VIAL (J1200) IM STA (12:49)
[2020-08-22] MEDS ORDERED: LORazepam 2 MG/ML VIAL IM STA (12:49)
--- NOTE | 2020-08-22 12:53 | MHIPNPDOC ---
[facility] Progress Note Progress Note DATE OF SERVICE: 08/22/20 HISTORY: The patient is met with today, still paranoid and bizarre, he reports that people are out to get him still is upset Ago. He reports that he feels the government is out to get him and otherwise interview is difficult to engage due to psychosis.. VITAL SIGNS: See below. CURRENT MEDICATIONS: See below. MENTAL STATUS EXAMINATION: Language skills are limited. Thought processes including: Circumstantial. Thought content: Delusional. Abstract reasoning, and computation: Impaired. Description of associations: Impaired. Description of abnormal or psychotic thoughts: Paranoid. Judgment: poor Insight: poor Orientation: Alert and orientated. Recent and remote memory: Intact. Attention span and concentration: Impaired secondary thought process. Language: Fair. Fund of knowledge: Unable to assess. Mood: Irritable. Affect: Irritable. DIAGNOSES: 1. Unspecified psychotic disorder. 2. Alcohol use disorder. 3. TBI. ASSESSMENT: Will continue to offer medication schedule Seroquel MANAGEMENT PLAN: Seroquel 300 mg nightly. Vital Signs Vital Signs Date Time Temp Pulse Resp B/P (MAP) Pulse Ox O2 Delivery O2 Flow Rate FiO2 08/22/20 11:19 51 141/89 08/22/20 06:47 97.8 16 08/21/20 06:56 96 08/21/20 00:06 Room Air Current Medications Current Medications Medications (Trade) Dose Ordered Sig/Cali Route PRN Reason Start Time Stop Time Status Last Admin Dose Admin Acetaminophen (Tylenol Tab) 650 mg Q6HP PRN PO HEADACHE or DISCOMFORT 08/20/20 22:15 Al Hydrox/Mg Hydrox/Simethicone (Mylanta) 30 ml Q4HP PRN PO HEARTBURN/INDIGESTION 08/20/20 22:15 Diphenhydramine HCl (Benadryl) 50 mg STAT STAT IM 08/22/20 12:49 08/22/20 12:51 DC Folic Acid (Folic Acid) 1 mg DAILY PO 08/21/20 09:00 Haloperidol (Haldol) 10 mg STAT STAT IM 08/22/20 12:49 08/22/20 12:51 DC Home Med (Med Rec Complete!) ASDIRECTED XX 08/20/20 21:45 08/20/20 21:48 DC Lorazepam (Ativan) 2 mg ASDIRECTED PRN PO SEE PROTOCOL 08/21/20 00:00 Lorazepam (Ativan) 2 mg STAT STAT IM 08/22/20 12:49 08/22/20 12:51 DC Lorazepam (Ativan) 2 mg STAT STAT PO 08/20/20 16:24 08/20/20 16:25 Cancel Magnesium Hydroxide (Milk Of Magnesia) 30 ml DAILYPRN PRN PO CONSTIPATION 08/20/20 22:15 Multivitamins (Theragram-M) 1 tab DAILY PO 08/21/20 09:00 Olanzapine (ZyPREXA ZYDIS) 5 mg Q4HP PRN PO ANXIETY/AGITATION 08/20/20 22:15 Quetiapine Fumarate (SEROquel) 300 mg QHS PO 08/21/20 21:00 08/21/20 20:40 Thiamine HCl (Thiamine HCl) 100 mg BID PO 08/21/20 00:30 08/23/20 21:01 Trazodone HCl (Desyrel) 50 mg QHSP PRN PO INSOMNIA 08/20/20 22:15 Allergies Coded Allergies: cefuroxime (Verified Allergy, Unknown, 08/20/19) ANTONINO PARRISH DO Aug 22, 2020 12:53
[2020-08-22] MEDS ORDERED: LORazepam 2 MG TAB PO STA (12:56)
[2020-08-22] MEDS ORDERED: diphenhydrAMINE 50MG CAP PO STA (12:56)
[2020-08-22 16:24] VITALS: BP 131/70
[2020-08-22] MEDS: QUEtiapine 300 MG XR TABLET(SEROQUEL XR) PO SCH (21:00)
[2020-08-23 06:45] VITALS: BP 124/76
[2020-08-23 08:09] VITALS: BP 124/76
--- NOTE | 2020-08-23 15:02 | MHIPNPDOC ---
[facility] Progress Note Progress Note DATE OF SERVICE: 08/23/20 HISTORY: Patient is doing much better today, no paranoia, reports that he feels unusual for saying what he said when he was paranoid. He reports doing well and describes that his alcohol use tends to make him feel very strange. He is been doing well throughout the day and generally engaging with staff without any issue.. VITAL SIGNS: See below. CURRENT MEDICATIONS: See below. MENTAL STATUS EXAMINATION: General: Well dressed with good hygiene Speech: Spontaneous and fluid Thought processes: Linear and logical Thought content: Future orientated Abstract reasoning, and computation: Intact Description of associations: Intact Description of abnormal or psychotic thoughts:Denies any suicidal or homicidal ideation. Denies any auditory or visual hallucinations. Does not appear to be responding to internal stimuli. Does not appear to be endorsing any bizarre or paranoid ideation. Judgment: Improved Insight: Improved Orientation: Alert and orientated 3 Recent and remote memory: Intact Attention span and concentration: Intact Fund of knowledge: Adequate Mood: Improved Affect: Euthymic with a full range DIAGNOSES: 1. Unspecified psychotic disorder. 2. Alcohol use disorder. 3. TBI. ASSESSMENT: Immense improvement start Seroquel and alcohol wash out of system likely combination of TBI and alcohol use MANAGEMENT PLAN: Continue Seroquel, likely discharge tomorrow. Vital Signs Vital Signs Date Time Temp Pulse Resp B/P (MAP) Pulse Ox O2 Delivery O2 Flow Rate FiO2 08/23/20 08:09 73 124/76 08/23/20 06:45 98.0 14 97 Room Air Current Medications Current Medications Medications (Trade) Dose Ordered Sig/Cali Route PRN Reason Start Time Stop Time Status Last Admin Dose Admin Acetaminophen (Tylenol Tab) 650 mg Q6HP PRN PO HEADACHE or DISCOMFORT 08/20/20 22:15 Al Hydrox/Mg Hydrox/Simethicone (Mylanta) 30 ml Q4HP PRN PO HEARTBURN/INDIGESTION 08/20/20 22:15 Diphenhydramine HCl (Benadryl) 50 mg STAT STAT IM 08/22/20 12:49 08/22/20 12:59 DC Diphenhydramine HCl (Benadryl) 50 mg STAT STAT PO 08/22/20 12:56 08/22/20 12:59 DC 08/22/20 13:03 Folic Acid (Folic Acid) 1 mg DAILY PO 08/21/20 09:00 08/22/20 19:31 DC Haloperidol (Haldol) 10 mg STAT STAT IM 08/22/20 12:49 08/22/20 12:59 DC Haloperidol (Haldol) 10 mg STAT STAT PO 08/22/20 12:56 08/22/20 12:59 DC 08/22/20 13:03 Home Med (Med Rec Complete!) ASDIRECTED XX 08/20/20 21:45 08/20/20 21:48 DC Lorazepam (Ativan) 2 mg ASDIRECTED PRN PO SEE PROTOCOL 08/21/20 00:00 Cancel Lorazepam (Ativan) 2 mg STAT STAT IM 08/22/20 12:49 08/22/20 12:59 DC Lorazepam (Ativan) 2 mg STAT STAT PO 08/20/20 16:24 08/20/20 16:25 Cancel Lorazepam (Ativan) 2 mg STAT STAT PO 08/22/20 12:56 08/22/20 12:59 DC 08/22/20 13:03 Magnesium Hydroxide (Milk Of Magnesia) 30 ml DAILYPRN PRN PO CONSTIPATION 08/20/20 22:15 Multivitamins (Theragram-M) 1 tab DAILY PO 08/21/20 09:00 08/22/20 19:31 DC Olanzapine (ZyPREXA ZYDIS) 5 mg Q4HP PRN PO ANXIETY/AGITATION 08/20/20 22:15 Quetiapine Fumarate (SEROquel XR) 300 mg QHS PO 08/22/20 21:00 Quetiapine Fumarate (SEROquel) 300 mg QHS PO 08/21/20 21:00 08/22/20 14:03 DC 08/21/20 20:40 Thiamine HCl (Thiamine HCl) 100 mg BID PO 08/21/20 00:30 08/22/20 19:31 DC Trazodone HCl (Desyrel) 50 mg QHSP PRN PO INSOMNIA 08/20/20 22:15 Allergies Coded Allergies: cefuroxime (Verified Allergy, Unknown, 08/20/19) ANTONINO PARRISH DO Aug 23, 2020 15:02
[2020-08-23] MEDS: QUEtiapine 300 MG XR TABLET(SEROQUEL XR) PO SCH (17:51)
[2020-08-23 21:25] VITALS: BP 124/76
[2020-08-24 06:46] VITALS: BP 115/59
--- NOTE | 2020-08-24 10:11 | MHDSPDOC ---
[facility] Discharge Summary Discharge Summary DATE OF ADMISSION: Aug 20, 2020 at 22:12 DATE OF DISCHARGE:Aug 24, 2020 at 13:52 DISCHARGE DIAGNOSES: Z87.820 Personal history of traumatic brain injury F29 Unspecified psychosis not due to a substance or known physiological condition F10.99 Alcohol use, unspecified with unspecified alcohol-induced disorder CONSULTANTS INVOLVED:[ None (basic hospitalist screening)] REASON FOR ADMISSION & TREATMENT AND PROGRESS ON THE UNIT : The patient was admitted to the inpatient mental health unit after having paranoia after drinking. He did quite well resolved in his paranoia and bizarreness resolved as well, which he reported that he generally has these problems when he's drinking. He did well resolved him served over the weekend prior to discharge on which he return to his normal mental status exam. MEDICATIONS: He was submitted and subsequently, he did not want to take the Seroquel. He did take one dose after being convinced. MEDICAL HISTORY: He has history of TBI which appeared to be a far more likely cause of his paranoia. DISCHARGE ASSESSMENT:[improved] Legal status considerations: The patient at the time of discharge did not meet criteria for involuntary admission/extension due to having a [normal] mental status exam, [fair] insight into the situation, They are engaged in the discharge process, as well as being friendly and amenable in behavioral control and havent been engaging in any observed concerning behavior or ideation recently. They decline voluntary extension/admission at this time and must be discharged in good fanta, as Im unable to make a case for holding the patient against their will. They may have historical risk factors of admissions and other interactions with psychiatry however, those are not modifiable from a clinical perspective. The patient will need to be discharged in good fanta. MENTAL STATUS EXAMINATION ON DISCHARGE: [General: Well dressed with good hygiene Speech: Spontaneous and fluid Thought processes: Linear and logical Thought content: Future orientated Abstract reasoning, and computation: Intact Description of associations: Intact Description of abnormal or psychotic thoughts:Denies any suicidal or homicidal ideation. Denies any auditory or visual hallucinations. Does not appear to be responding to internal stimuli. Does not appear to be endorsing any bizarre or paranoid ideation. Judgment: fair Insight: fair Orientation: Alert and orientated 3 Recent and remote memory: Intact Attention span and concentration: Intact Fund of knowledge: Adequate Mood: "okay" Affect: Euthymic with a full range] PLAN/FOLLOWUP ARRANGEMENTS: Follow up appointments made (PCP and MH in 5 days of D/C date) and safety plan completed. Safety Planning aspects completed prior to discharge [Medication supplies limited to 7 days with 4 refills to prevent accumulation to OD] information systems audit manager correlated with [RN reviewed crisis hotline information and other aspects to empower patient to access care in interim before next appointment.] The amount of time spent in the coordination of care for this patient was approximately 30 minutes. Vital Signs/I&Os Vital Signs Date Time Temp Pulse Resp B/P (MAP) Pulse Ox O2 Delivery O2 Flow Rate FiO2 08/24/20 06:46 97.8 69 12 115/59 (77) Room Air 08/23/20 06:45 97 Medications Scheduled Quetiapine Fumarate (Quetiapine Fumarate ER) 300 Mg Tab.er.24h, 300 MG PO QHS for thoughts for 7 Days, #7 Allergies Coded Allergies: cefuroxime (Verified Allergy, Unknown, 08/20/19) ANTONINO PARRISH DO Aug 24, 2020 10:10
[2020-08-24] MEDS ORDERED: QUET300T53 PO (10:32)
== END 2020-08-24 13:52 | disposition home or self-care (01) | DRG 751 ==
LOC: M ED 10:42 → M ED INP 22:12 → M PSY 08-21 00:05
PROVIDERS: ADMIT Psychiatry & Neurology Psychiatry; ATTEND Psychiatry & Neurology Addiction Medicine
DX: F29 Unspecified psychosis not due to a substance or known physiological condition (principal); F10.99 Alcohol use, unspecified with unspecified alcohol-induced disorder; Z87.820 Personal history of traumatic brain injury; Z88.8 Allergy status to other drugs, medicaments and biological substances; G47.00 Insomnia, unspecified; Z79.899 Other long term (current) drug therapy; F17.200 Nicotine dependence, unspecified, uncomplicated

== ENCOUNTER 2020-08-31 22:43 | Emergency (ER) | payer MEDICAID ==
[~2020-08-31] VITALS: Ht 180.3 cm; Wt 84.0 kg
[~2020-08-31 22:43] MED LIST changes: +QUET300T53 PO
[2020-08-31 22:44] VITALS: BP 136/88
[2020-08-31] MEDS ORDERED: ACETAMINOPHEN TAB 650MG DOSE (2X325MG) PO ONE (23:15)
== END 2020-08-31 23:15 | disposition home or self-care (01) ==
LOC: M ED 22:43
DX: M25.561 Pain in right knee (principal); R45.4 Irritability and anger; F31.9 Bipolar disorder, unspecified; Z87.820 Personal history of traumatic brain injury; Z79.899 Other long term (current) drug therapy; Z88.1 Allergy status to other antibiotic agents

== ENCOUNTER 2020-10-20 11:41 | Emergency (ER) | payer MEDICAID ==
[~2020-10-20] VITALS: Ht 175.3 cm; Wt 84.8 kg
[2020-10-20] MEDS ORDERED: ACET325C5 PO (12:40)
[2020-10-20] MEDS ORDERED: IBUP-1022 PO (12:40)
[2020-10-20] MEDS ORDERED: ACETAMINOPHEN 500 MG TAB PO ONE (12:45)
[2020-10-20] MEDS ORDERED: IBUPROFEN 800 MG TAB PO ONE (12:45)
[2020-10-20 13:08] VITALS: BP 138/71
== END 2020-10-20 13:09 | disposition home or self-care (01) ==
LOC: M ED 11:41
DX: K08.89 Other specified disorders of teeth and supporting structures (principal)

== ENCOUNTER 2020-10-30 16:40 | Emergency (ER) | payer MEDICAID ==
[~2020-10-30] VITALS: Ht 177.8 cm; Wt 87.7 kg
[~2020-10-30 16:40] MED LIST changes: +ACET325C5 PO; +IBUP-1022 PO
[2020-10-30 16:41] VITALS: BP 142/87
== END 2020-10-30 18:26 | disposition home or self-care (01) ==
LOC: M ED 16:40
DX: F31.9 Bipolar disorder, unspecified (principal); F20.9 Schizophrenia, unspecified; Z87.820 Personal history of traumatic brain injury; F17.200 Nicotine dependence, unspecified, uncomplicated; Z79.899 Other long term (current) drug therapy; Z88.1 Allergy status to other antibiotic agents

== ENCOUNTER 2020-11-03 11:58 | Emergency (ER) | payer MEDICAID ==
[~2020-11-03] VITALS: Ht 180.3 cm; Wt 89.3 kg
[2020-11-03 11:58] VITALS: BP 140/82
--- OUTSIDE RECORDS SUMMARY | 2020-11-03 12:10 | CCD ---
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, With delusions Active 08/19/2020 Medications Rx Norm Medication Route Route Concept Start Date Stop Date Dosage Diego quency Duration Formula Strength Dosage Form Dosage Form Code Dosage Description Medication Id Account Npid Author First Name Author Last Name Taxonomy Code Taxonomy Desc Phone Number [phone] [facility]/04/2018 every four weeks 300 mg suspension,extended rel recon [id number] Laurie Mckeon [id number] Nurse Practitioner [phone] [id number] Seroquel 07/25/2019 30 300 mg tablet 31840 1 [phone] Irlanda Mckeon [id number] Nurse Practitioner [phone] Social History Social History Element Description Concept Effective Date Smoking Status Smoker, current status unknown [id number] Immunizations No Data in Section Vital Signs No Data in Section Procedures Date Concept Id Description Targeted Site Concept Targeted Site Concept Type 08/19/2020 75864 Extended Individual Psychotherapy - 45 min CPT Patient has no history of implantable de vices Encounters Encounter Start Date End Date Encounter Type Description Diagnosis Di agnosis Desc Location Author First Name Author Last Name Npid Taxonomy Cod e Taxonomy Desc Phone Number Location Addr1 Location Addr2 Location City Location Sta Location Zip [address]644 08/19/2020 08/19/2020 52784 Extended Individual Psych otherapy - 45 min 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
--- OUTSIDE RECORDS SUMMARY | 2020-11-03 12:10 | CCD ---
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, With delusions Active 09/24/2020 Medications Rx Norm Medication Route Route Concept Start Date Stop Date Dosage Diego quency Duration Formula Strength Dosage Form Dosage Form Code Dosage Description Medication Id Account Npid Author First Name Author Last Name Taxonomy Code Taxonomy Desc Phone Number [phone] Abishauna Chery 01/04/2018 every four weeks 300 mg suspension,extended rel recon [id number] Laurie Mckeon [id number] Nurse Practitioner [phone] [id number] Seroquel 07/25/2019 30 300 mg tablet 78984 1 [phone] Irlanda Mckeon [id number] Nurse Practitioner [phone] Social History Social History Element Description Concept Effective Date Smoking Status Smoker, current status unknown [id number] Immunizations No Data in Section Vital Signs No Data in Section Procedures Date Concept Id Description Targeted Site Concept Targeted Site Concept Type 09/24/2020 07972 Psychiatric Diagnostic Evaluation with Medical Services CPT Patient has no history of implantable de vices Encounters Encounter Start Date End Date Encounter Type Description Diagnosis Di agnosis Desc Location Author First Name Author Last Name Npid Taxonomy Cod e Taxonomy Desc Phone Number Location Addr1 Location Addr2 Location [facility] Location [facility] Location Zip [address] 09/24/2020 09/24/2020 21635 Psychiatric [place] gnostic Evaluation with Medical Services F06.2 Psychotic disorder w delusions due to kn own physl cond [facility] Rosana Teixeira [phone] [id number] Nurse Practitioner [phone] [address] [place] [phone] Plan of Treatment No Data in Section Lab Results No Data in Section Instructions No Data in Section Insurance Providers Insurance Id Policy Effective Date Policy Thru Date Company [employer] [id number] 2013 MEDICAID
--- OUTSIDE RECORDS SUMMARY | 2020-11-03 12:10 | CCD ---
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, With delusions Active 09/02/2020 Medications Rx Norm Medication Route Route Concept Start Date Stop Date Dosage Diego quency Duration Formula Strength Dosage Form Dosage Form Code Dosage Description Medication Id Account Npid Author First Name Author Last Name Taxonomy Code Taxonomy Desc Phone Number [phone] [facility] 01/04/2018 every four weeks 300 mg suspension,extended rel recon [id number] Laurie Mckeon [id number] Nurse Practitioner [phone] Seroquel 07/25/2019 30 300 mg tablet 42875 1 [phone] Irlanda Mckeon [id number] Nurse Practitioner [phone] Social History Social History Element Description Concept Effective Date Smoking Status Smoker, current status unknown [id number] Immunizations No Data in Section Vital Signs No Data in Section Procedures Date Concept Id Description Targeted Site Concept Targeted Site Concept Type 08/31/2020 31425 Extended Individual Psychotherapy - 45 min CPT Patient has no history of implantable de vices Encounters Encounter Start Date End Date Encounter Type Description Diagnosis Di agnosis Desc Location Author First Name Author Last Name Npid Taxonomy Cod e Taxonomy Desc Phone Number Location Addr1 Location Addr2 Location City Location Sta Location Zip [address] 08/31/2020 08/31/2020 33453 Extended Individual Psych otherapy - 45 min 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
--- OUTSIDE RECORDS SUMMARY | 2020-11-03 12:10 | CCD ---
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, With delusions Active 08/18/2020 Medications Rx Norm Medication Route Route Concept Start Date Stop Date Dosage Diego quency Duration Formula Strength Dosage Form Dosage Form Code Dosage Description Medication Id Account Npid Author First Name Author Last Name Taxonomy Code Taxonomy Desc Phone Number [phone] [facility]/04[facility]2018 every four weeks 300 mg suspension,extended rel recon [phone] Laurie Mckeon [id number] Nurse Practitioner [phone] Seroquel 07/25/2019 30 300 mg tablet 29736 1 [phone] Irlanda Mckeon [id number] Nurse Practitioner [phone] Social History Social History Element Description Concept Effective Date Smoking Status Smoker, current status unknown [id number] Immunizations No Data in Section Vital Signs No Data in Section Procedures Date Concept Id Description Targeted Site Concept Targeted Site Concept Type 08/17/2020 45143 Extended Individual Psychotherapy - 45 min CPT Patient has no history of implantable de vices Encounters Encounter Start Date End Date Encounter Type Description Diagnosis Di agnosis Desc Location Author First Name Author Last Name Npid Taxonomy Cod e Taxonomy Desc Phone Number Location Addr1 Location Addr2 Location City Location Sta Location Zip [address] 08/17/2020 08/17/2020 42587 Extended Individual Psych otherapy - 45 min 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
--- OUTSIDE RECORDS SUMMARY | 2020-11-03 12:10 | CCD ---
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 Medications Rx Norm Medication Route Route Concept Start Date Stop Date Dosage Diego quency Duration Formula Strength Dosage Form Dosage Form Code Dosage Description Medication Id Account Npid Author First Name Author Last Name Taxonomy Code Taxonomy Desc Phone Number [id number] Socorrolirk Chery 01/04/2018 every four weeks 300 mg suspension,extended rel recon [id number] [phone] Laurie Mckeon [id number] Nurse Practitioner [phone] [id number] Seroquel 07/25/2019 30 300 mg tablet [id number] [phone] [id number] [phone] Irlanda Mckeon [id number] Nurse Practitioner [phone] Social History Social History Element Description Concept Effective Date Smoking Status Smoker, current status unknown [id number] Immunizations No Data in Section Vital Signs No Data in Section Procedures Date Concept Id Description Targeted Site Concept Targeted Site Concept Type 10/19/2020 [id number] Brief Individual Psychotherapy - 30 min CPT Patient has no history of implantable de vices Encounters Encounter Start Date End Date Encounter Type Description Diagnosis Di agnosis Desc Location Author First Name Author Last Name Npid Taxonomy Cod e Taxonomy Desc Phone Number Location Addr1 Location Addr2 Location [facility] [place] Location [facility] Location [facility] [id number] 10/19/2020 10/19/2020 [id number] Brief Individual Psychoth erapy - 30 min 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
--- OUTSIDE RECORDS SUMMARY | 2020-11-03 12:11 | CCD ---
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 normal. Chest nontender.Abdomen: Soft and nontender.Back: No tenderness.Skin: Skin warm and dry. Normal skin color. Normal skin turgor.Extremities: Extremities exhibit normal ROM. No lower extremity edema.Psych / Neuro: Oriented X 3. Mood and affect normal. Speech normal. Cognition normal. Thoughtprocess and content normal. Appears to have delusions (Believes bleach fumes inhaled 3 days ago havedamaged his face / eyes / mouth). He expresses obsessions and compulsions (Cleanliness). Insight andjudgement not normal. He does not appear to understand his illness. Cranial nerves normal (as tested).No cerebellar findings. No motor deficit. No sensory deficit.LABS, X-RAYS, AND EKGLaboratory Tests: Laboratory tests have been ordered, with results reviewed and considered in themedical decision making process. CT ABD PEL W/O Oral W/O IV Contrast: (LULU: 08/29/2020 00:42) ( MsgRcvd 08/29/2020 02:39) Final results Exam CT ABD //T// PELV W/O ORAL W/O IV [facility] [address] [place] [address] ---------N RYANN--------- NUMBER SEX AGE ADMIT DISC. XRAY# F/C TYPE BENJAMÍN Navarro [id number] M 29 08/29/20 [id number] NA E/R DATE OF : 1990 M/R# [id number] PH#: [phone] TR-03 3 Clinical Report - Physicians/Mid Levels [facility] Emergency Department [address] [place] [address] Phone #: ext- [phone] 08/29/2020 00:12 Patient: CAMILO BUTTS Sex: M : 1990 Age: 29y LOCATION: EMERGENCY DEPT TRANSCRIBED: 08/29/20 2:[address] ABD //T// PELV W/O ORAL W/[place] [id number] COMPLETED:08/29/20 2:18 RLB [id number] Reason(s): Trauma/Injury PHYSICIAN: ANTHONY GODINEZ = R A D I O L O G Y R E P O R T PATIENT HISTORY:Patient possibly drank bleach. Trauma/Injury. Accumulated DLP(Thorax //T// Abd/PelCombined)-723.9 mGy*cm, Estimated DLP-724.5 mGy*cm. Male.Verification of 2 patient identifiers performed. - RLB / SAG (DICOM Hx)EXAM: CT Abdomen and Pelvis Without IV contrastCLINICAL HISTORY:Patient possibly drank bleach. Trauma/Injury. AccumulatedDLP(Thorax //T// Abd/Pel Combined)-723.9 mGy*cm, Estimated DLP-724.5 mGy*cm. Male.Verification of 2 patient identifiers performed. - RLBTECHNIQUE: Axial computed tomography images of the abdomen and pelvis withoutintravenous contrast.CONTRAST: No IV contrast.COMPARISON:None provided.FINDINGS:LUNG BASES: The lung bases appear clear. No pleural effusions are seen.LIVER: Unremarkable.GALLBLADDER AND BILE DUCTS: The gallbladder appears within normal limits. Noradioopaque gallstones are seen. No biliary ductal dilatation is evident.PANCREAS: Unremarkable.SPLEEN: Unremarkable.ADRENAL GLANDS: Unremarkable.KIDNEYS, URETERS, AND BLADDER: The kidneys appear within normal limits. There isno hydronephrosis or hydroureter. No urinary calculi are seen.STOMACH AND BOWEL: Unremarkable appearance of the stomach and bowel. No evidenceof bowel obstruction. No evidence suggesting enteritis or colitis.APPENDIX: No evidence of acute appendicitis on CT examination.PERITONEUM: No free fluid. No free air.LYMPH NODES: No ly mphadenopathy is evident.REPRODUCTIVE: Unremarkable as visualized.VASCULATURE: No evidence of abdominal aortic aneurysm.BONES: No aggressive appearing osseous lesion. No acute osseous pathologyevident.IMPRESSION: 4 Clinical Report - Physicians/Mid Levels [facility] Emergency Department [address] [place] [address] Phone #: ext- [phone] 08/29/2020 00:12 Patient: CAMILO BUTTS Sex: M : 1990 Age: 29y No acute intra-abdominal or pelvic abnormality. While performing the above CT examination, radiation dose reduction was accomplished utilizing automated exposure control, adjusting of the mA and kV based on the patient's body size and/or the use of imperative reconstructive techniques. Electronically Signed By: Jani Vera MD , Radiologist Date/Time: 08/29/20 02:39CT Neck Soft Tissue W/O Cont: (LULU: 08/29/2020 00:41) ( MsgRcvd 08/29/2020 02:37) Finalresults Exam CT ST NECK W/O CONTRAST [address] [place] [address] ---------NAME--------- NUMBER SEX AGE ADMIT DISC. XRAY# F/C TYPE MANTLE CAMILO D [id number] M 29 08/29/20 [id number] NA E/R DATE OF : 1990 M/R# [id number] #: [id number] TR-03 LOCATION: EMERGENCY DEPT TRANSCRIBED: 08/29/20 2:[address] NECK W/O CONTRAST [id number] COMPLETED:08/29/20 2:18 RLB [id number] Reason(s): Trauma/Injury PHYSICIAN: ANTHONY BR R A D I O L O G Y R E P O R T ===== PATIENT HISTORY: Patient possible drank bleach. Trauma/Injury. Accumulated DLP- 309.8 mGy*cm, Estimated DLP-298.2 mGy*cm. Male. Verification of 2 patient identifiers performed. - RLB / Executed [place] (DICOM Hx) EXAM: CT Neck Without IV contrast. CLINICAL HISTORY:Patient possible drank bleach. Trauma/Injury. Accumulated DLP-309.8 mGy*cm, Estimated DLP-298.2 mGy*cm. Male. Verification of 2 patient identifiers performed. - RLB TECHNIQUE: Axial computed tomography images of the neck without intravenous contrast. Sagittal and coronal reformatted images were generated. CONTRAST:Without COMPARISON:None provided. FINDINGS: PHARYNX: The nasopharynx, oropharyx, and hypopharynx are unremarkable. No pharyngeal mucosal based lesions. LARYNX: The larynx is unremarkable. Normal epiglottis. RETROPHARYNGEAL SPACE: No retropharyngeal soft tissue swelling or gas. 5 Clinical Report - Physicians/Mid Levels [facility] Emergency Department [address] [place] [address] Phone #: ext- [phone] 08/29/2020 00:12 Patient: CAMILO BUTTS Sex: M : 1990 Age: 29y SALIVARY GLANDS: The parotid, submandibular, and sublingual glands are unremarkable. LYMPH NODES: No lymphadenopathy is evident. THYROID: The thyroid gland is unremarkable. No nodule. BONES: No acute osseous abnormality. IMPRESSION: Unremarkable CT neck without IV contrast. While performing the above CT examination, radiation dose reduction was accomplished utilizing automated exposure control, adjusting of the mA and kV based on the patient's body size and/or the use of imperative reconstructive techniques. Electronically Signed By: Jani Vera MD , Radiologist Date/Time: 08/29/20 02:37CT Chest W/O Cont: (LULU: 08/29/2020 00:41) ( MsgRcvd 08/29/2020 02:56) Final results Exam CT THORAX W/[place] [address] ---------NAME--------- NUMBER SEX AGE ADMIT DISC. XRAY# F/C TYPE BENJAMÍN Navarro [id number] M 29 08/29/20 [id number] NA E/R DATE OF : 1990 M/R# [id number] #: [id number] TR-03 LOCATION: EMERGENCY DEPT TRANSCRIBED: 08/29/20 2:[address] THORAX W/O CONTRAST [id number] COMPLETED:08/29/20 2:18 RLB [id number] Reason(s): Trauma/Injury PHYSICIAN: ANTHONY BR R A D I O L O G Y R E P O R T PATIENT HISTORY: patient possibly drank bleach. Trauma/Injury. Accumulated DLP(Thorax //T// Abd/Pel Combined)-723.9 mGy*cm, Estimated DLP-724.5 mGy*cm. Male. Verification of 2 patient identifiers performed. - RLB / CHEST (DICOM Hx) CT Chest History: patient possibly drank bleach. Trauma/Injury. Accumulated DLP(Thorax //T// Abd/Pel Combined)-723.9 mGy*cm, Estimated DLP-724.5 mGy*cm. Male. Verification of 2 patient identifiers performed. - RLB (Hx) / CHEST (DICOM Hx) Technique: CT THORAX W/O CONTRAST Dose length product (mGy-cm): Not provided Reformations: None Contrast: Without Comparison: No comparison study provided. 6 Clinical Report - Physicians/Mid Levels [facility] Emergency Department [address] [place] [address] Phone #: ext- [phone] 08/29/2020 00:12 [id number] Sex[facility] M : 1990 Age: 29y Findings: Visualized esophagus and stomach appear normal. Visualized bowel loops are unremarkable. There is no aortic aneurysm. Heart size is normal. There is no pericardial effusion. No adenopathy within the mediastinum or hilar regions. No infiltrates, effusions or pneumothorax. Minimal dependent atelectasis lower lobes bilaterally are noted. No aggressive bony lesion is identified. IMPRESSIONS: Visualized esophagus and stomach appear normal. This be further evaluated by esophagram if warranted. No acute cardiopulmonary disease otherwise. While performing the above CT examination, radiation dose reduction was accomplished utilizing automated exposure control, adjusting of the mA and kV based on the patient's body size and/or the use of imperative reconstructive techniques. Electronically Signed By: Bridger Regalado M.D. , Radiologist Date/Time: 08/29/20 02:56Urinalysis: (LULU: 08/29/2020 01:15) ( MsgRcvd 08/29/2020 01:25) Final results Test Result Flag Units (Reference) URINALYSIS URINALYSIS SOURCE R COLOR yellow (NORMAL: Yello CLARITY clear (NORMAL: Clear SPEC GRAVITY 1.010 (1.001 - 1.030 pH 6.5 (5 - 9) GLUCOSE NORM (NORMAL: Negat BILIRUBIN NEG (NORMAL: Negat KETONE NEG (NORMAL: Negat PROTEIN NEG (NORMAL: Negat NITRITE NEG (NORMAL: Negat BLOOD NEG (NORMAL: Negat LEUK EST NEG (NORMAL: Negat UROBILINOGEN NOR (less than 1.0 MICROSCOPIC Not IndicateDrug Screen-Urine: (LULU: 08/29/2020 01:15) ( MsgRcvd 08/29/2020 01:40) Final results Test Result Flag Units (Reference) DRUG SCREEN URINE URINE DRUG SCREEN AMPHETAMINES NEGATIVE (NORMAL: NEGAT BARBITURATES NEGATIVE (NORMAL: NEGAT BENZO NEGATIVE (NORMAL: NEGAT COCAINE NEGATIVE (NORMAL: NEGAT 7 Clinical Report - Physicians/Mid Levels [facility] Emergency Department [address] [place] [address] Phone #: ext- [phone] 08/29/2020 00:12 Patient: CAMILO BUTTS Sex: M : 1990 Age: 29y THC NEGATIVE (NORMAL: NEGAT OPIATES NEGATIVE (NORMAL: NEGAT PCP NEGATIVE (NORMAL: NEGAT \\BLDo\\URINE DRUG SCREEN INTERPRETATION\\BLDx\\ THE CUTOFFF LEVELS FORDETECTION ARE FOLLOWS: AMPHETAMINES 1000 ng/mlBARBITUARATES 200 ng/ml BENZODIAZEPINES 100 ng/mlTHC 50 ng/ml PHENCYCLIDINE 25 ng/mlOPIATES 300 ng/ml COCAINE 300 ng/mlALL POSITIVES ARE CONSIDERED PRESUMPTIVE POSITIVE CONFIRMATION WILL [facility].CMP: (LULU: 08/29/2020 01:35) ( MsgRcvd 08/29/2020 02:03) Final results Test Result Flag Units (Reference) COMPREHENSIVE METABOLIC PANEL COMPREHENSIVE METABOLIC PANEL SODIUM 136 mEq/L (134 - 153) POTASSIUM 3.8 mEq/L (3.6 - 5.0) CHLORIDE 103 mEq/L (98 - 107) CO2 26 MEQ/L (22 - 30) GLUCOSE 106 MG/DL (65 - 110) BUN 14 MG/DL (7 - 21) CREATININE 0.6 L MG/DL (0.7 - 1.5) BUN/CREAT 23 (8 - 27) TOTAL PROTEIN 6.6 G/DL (6.3 - 8.2) ALBUMIN 4.3 G/DL (3.9 - 5.0) GLOBULIN 2.3 L GM/DL (2.4 - 3.2) A/G RATIO 1.9 (0.8 - 2.0) CALCIUM 9.3 MG/DL (8.4 - 10.2) TOTAL BILI 0.8 MG/DL (0.2 - 1.3) ALKALINE PHOS 108 U/L (38 - 126) SGOT/AST 17 U/L (5 - 40) SGPT/ALT 18 U/L (7 - 56) ANION GAP 7.0 L mmol/L (8.0 - 16.0) AGE 29 yrs NON-AA GFR >60 mL/min AFR AMER GFR >60 mL/min Male GFR Interprentation 20-49 yrs >60 mL/min Cdufob64-97 yrs >56 mL/min Normal 60-69 yrs >49 mL/min Normal 70-79yrs>42 mL/min Normal 80 and above >35 mL/min Normal Female GFRInterpretation 20-39 yrs >60 mL/min Normal 40-49 yrs >58 mL/minNormal 50-59 yrs >51 mL/min Normal 60-69 yrs >45 mL/min Iigvja47-22 yrs >39 mL/min Normal 80 and above >32 mL/min NormalCBC w Diff: (LULU: 08/29/2020 01:35) ( MsgRcvd 08/29/2020 01:43) Final results Test Result Flag Units (Reference) CBC W/AUTOMATED DIFF COMPLETE BLOOD COUNT WBC 8.4 10/uL (4.2 - 11.0) RBC 4.97 10/uL (4.50 - 6.30) HEMOGLOBIN 15.1 g/dL (14.0 - 16.0) HEMATOCRIT 43.8 % (41.0 - 51.0) MCV 88.1 fL (80.0 - 94.0) MCH 30.4 pg (27.0 - 34.0) MCHC 34.5 g/dL (31.0 - 36.0) RDW 12.6 % (11.5 - 14.8) PLATELETS 258 10/uL (150 - 450) 8 C linical Report - Physicians/Mid Levels [facility] Emergency Department [address] [place] [address] Phone #: ext- [phone] 08/29/2020 00:12 [id number] Sex: M : 1990 Age: 29y MPV 9.9 fL (7.4 - 10.4) NEUT 59.4 % (37.0 - 80.0) LYMPH 28.6 % (25.0 - 40.0) MONO 8.9 H % (3.0 - 8.0) EOS 2.1 % (0.0 - 7.0) BASO 0.6 % (0.0 - 2.0) %IG 0.4 H % (0.0 - 0.0) %NRBC 0.0 % (0.0 - 0.0) #NEUT 4.99 10/uL (2.00 - 6.90) #LYMPH 2.40 10/uL (0.60 - 3.40) #MONO 0.75 10/uL (0.00 - 0.90) #EOS 0.18 10/uL (0.00 - 0.70) #BASO 0.05 10/uL (0.00 - 0.20) #IG 0.03 10/uL (0.00 - 0.10) #NRBC 0.00 10/uL (0.00 - 0.00) MANUAL DIFF NOT INDICATED RBC MORPH NOT INDICATED Lipase: (LULU: 08/29/2020 01:35) ( [facility] 08/29/[place] 02:03) Final results Test Result Flag Units (Reference) LIPASE 37 U/L (13 - 60) Lactic Acid: (LULU: 08/29/2020 01:35) ( [facility] 08/29/2020 01:45) Final results Test Result Flag Units (Reference) LACTIC ACID 1.0 MMOL/L (0.2 - 2.2) . Note - Tests: (CT soft tissue neck - Unremarkable CT chest - Unremarkable CT abdomen / pelvis - Unremarkable EKG - Sinus bradycardia).PROGRESS AND PROCEDURESCourse of Care: 03:Aug 29 2020. Patient is stable. Symptoms much better. 03:21 Aug 29 2020. There is no indication that pt. consumed any amount of bleach. He has no visible facial or eye wounds. CT scans are unremarkable and labs are unremarkable. Pt. has no abdominal pain and has not vomited. In addition, he maintains that he has no suicidal thoughts or tendencies. Will discharge home. Critical care performed (130 minutes). Time is exclusive of separately billable procedures. Time includes: direct patient care, patient reassessment, interpretation of data (laboratory data and pulse oximetry), review of patient's medical records and documentation of patient care- see progress notes. Procedures included in critical care time: phlebotomy- see progress notes. Disposition: Discharged home in good and improved condition (03:23 Aug 29 2020). Condition: good.CLINICAL IMPRESSION Chronic paranoid schizophrenia (No suicidal tendencies.). 9 Clinical Report - Physicians/Mid Levels [facility] Emergency Department [address] [place] [address] Phone #: ext- [phone] 08/29/2020 00:12 Patient: CAMILO BUTTS Sex: M : 1990 Age: 29yINSTRUCTIONS Warnings: Further evaluation is necessary. GENERAL WARNINGS: Return or contact your physician immediately if your condition worsens or changes unexpectedly, if not improving as expected, or if other problems arise. Follow-up: Follow up with your doctor if not better. Call for the next available appointment. Reason for referral: evaluation, treatment and Schizophrenia Understanding of the discharge instructions verbalized by patient.(Electronically signed by Prudencio Cruz, Physician 08/30/2020 08:42) Name Value Range Interpretation Code Description Data Cecy rce(s) Supporting Document(s) ID Date Data Source [id number] 08/29/2020 02:56:00 [place] [address] ---------NAME--------- NUMBER SEX AGE ADMIT DISC. XRAY# F/C TYPE BENJAMÍN Navarro [id number] M 29 08/29/20 [id number] NA E/R DATE OF : 1990 M/R# [id number] #: [id number] TR-03 LOCATION: EMERGENCY DEPT TRANSCRIBED: 08/29/20 2:[address] THORAX W/O CONTRAST 74802 COMPLETED:08/29/20 2:18 RLB [id number] Reason(s): Trauma/Injury PHYSICIAN: ANTHONY GODINEZ R A D I O L O G Y R E P O R T PATIENT HISTORY:patient possibly drank bleach. Trauma/Injury. Accumulated DLP(Thorax //T// Abd/PelCombined)-723.9 mGy*cm, Estimated DLP-724.5 mGy*cm. Male.Verification of 2 patient identifiers performed. - RLB / CHEST (DICOM Hx)CT ChestHistory:patient possibly drank bleach. Trauma/Injury. Accumulated DLP(Thorax //T// Abd/PelCombined)-723.9 mGy*cm, Estimated DLP-724.5 mGy*cm. Male. Verification of 2patient identifiers performed. - RLB (Hx) / CHEST (DICOM Hx)Technique:CT THORAX W/O CONTRASTDose length product (mGy-cm): Not providedReformations: NoneContrast: WithoutComparison:No comparison study provided.Findings:Visualized esophagus and stomach appear normal.Visualized bowel loops are unremarkable.There is no aortic aneurysm.Heart size is normal.There is no pericardial effusion.No adenopathy within the mediastinum or hilar regions.No infiltrates, effusions or pneumothorax.Minimal dependent atelectasis lower lobes bilaterally are noted.No aggressive bony lesion is identified.IMPRESSIONS:Visualized esophagus and stomach appear normal. This be further evaluated byesophagram if warranted.No acute cardiopulmonary disease otherwise.While performing the above CT examination, radiation dose reduction wa saccomplished utilizing automated exposure control, adjusting of the mA and kVbased on the patient's body size and/or the use of imperative reconstructivetechniques.Electronically Signed By:Bridger Regalado M.D. , RadiologistDate/Time: 08/29/20 02:56 Name Value Range Interpretation Code Description Data Cecy rce(s) Supporting Document(s) ID Date Data Source [id number] 08/29/2020 02:39:00 AM EST [place] [address] [place] [address] ---------NAME--------- NUMBER SEX AGE ADMIT DISC. XRAY# F/C TYPE MANTLE CAMILO D [id number] M 29 08/29/20 [id number] NA E/R DATE OF : 1990 M/R# [id number] #: [id number] TR-03 LOCATION: EMERGENCY DEPT TRANSCRIBED: 08/29/20 2:[address] ABD //T// PELV W/O ORAL W/[place] [id number] COMPLETED:08/29/20 2:18 RLB [id number] Reason(s): Trauma/Injury PHYSICIAN: ANTHONY BR======== R A D I O L O G Y R E P O R T =PATIENT HISTORY:Patient possibly drank bleach. Trauma/Injury. Accumulated DLP(Thorax //T// Abd/PelCombined)-723.9 mGy*cm, Estimated DLP-724.5 mGy*cm. Male.Verification of 2 patient identifiers performed. - RLB / SAG (DICOM Hx)EXAM: CT Abdomen and Pelvis Without IV contrastCLINICAL HISTORY:Patient possibly drank bleach. Trauma/Injury. AccumulatedDLP(Thorax //T// Abd/Pel Combined)-723.9 mGy*cm, Estimated DLP-724.5 mGy*cm. Male.Verification of 2 patient identifiers performed. - RLBTECHNIQUE: Axial computed tomography images of the abdomen and pelvis withoutintravenous contrast.CONTRAST: No IV contrast.C OMPARISON:None provided.FINDINGS:LUNG BASES: The lung bases appear clear. No pleural effusions are seen.LIVER: Unremarkable.GALLBLADDER AND BILE DUCTS: The gallbladder appears within normal limits. Noradioopaque gallstones are seen. No biliary ductal dilatation is evident.PANCREAS: Unremarkable.SPLEEN: Unremarkable.ADRENAL GLANDS: Unremarkable.KIDNEYS, URETERS, AND BLADDER: The kidneys appear within normal limits. There isno hydronephrosis or hydroureter. No urinary calculi are seen.STOMACH AND BOWEL: Unremarkable appearance of the stomach and bowel. No evidenceof bowel obstruction. No evidence suggesting enteritis or colitis.APPENDIX: No evidence of acute appendicitis on CT examination.PERITONEUM: No free fluid. No free air.LYMPH NODES: No lymphadenopathy is evident.REPRODUCTIVE: Unremarkable as visualized.VASCULATURE: No evidence of abdominal aortic aneurysm.BONES: No aggressive appearing osseous lesion. No acute osseous pathologyevident.IMPRESSION:No acute intra-abdominal or pelvic abnormality.While performing the above CT examination, radiation dose reduction wasaccomplished utilizing automated exposure control, adjusting of the mA and kVbased on the patient's body size and/or the use of imperative reconstructivetechniques.Electronically Signed By:Jani Vera MD , RadiologistDate/Time: 08/29/20 02:39 Name Value Range Interpretation Code Description Data Cecy rce(s) Supporting Document(s) ID Date Data Source [id number] 08/29/2020 02:37:00 AM EST [place] [address] [facility] [place] [address] ---------NAME--------- NUMBER SEX AGE ADMIT DISC. XRAY# F/C TYPE MANTLE CAMILO Navarro [id number] M 29 08/29/20 [id number] NA E/R DATE OF : 1990 M/R# [id number] #: [id number] TR-03 LOCATION: EMERGENCY DEPT TRANSCRIBED: 08/29/20 2:[address] NECK W/O CONTRAST [id number] COMPLETED:08/29/20 2:18 RLB [id number] Reason(s): Trauma/Injury PHYSICIAN: ANTHONY BR R A D I O L O G Y R E P O R T PATIENT HISTORY:Patient possible drank bleach. Trauma/Injury. Accumulated DLP- 309.8 mGy*cm,Estimated DLP-298.2 mGy*cm. Male.Verification of 2 patient identifiers performed. - RLB / Executed [place] (DICOMHx)EXAM: CT Neck Without IV contrast.CLINICAL HISTORY:Patient possible drank bleach. Trauma/Injury. AccumulatedDLP-309.8 mGy*cm, Estimated DLP-298.2 mGy*cm. Male. Verification of 2 patientidentifiers performed. - RLBTECHNIQUE: Axial computed tomography images of the neck without intravenouscontrast. Sagittal and coronal reformatted images were generated.CONTRAST:WithoutCOMPARISON:None provided.FINDINGS:PHARYNX: The nasopharynx, oropharyx, and hypopharynx are unremarkable. Nopharyngeal mucosal based lesions.LARYNX: The larynx is unremarkable. Normal epiglottis.RETROPHARYNGEAL SPACE: No retropharyngeal soft tissue swelling or gas.SALIVARY GLANDS: The parotid, submandibular, and sublingual glands areunremarkable.LYMPH NODES: No lymphadenopathy is evident.THYROID: The thyroid gland is unremarkable. No nodule.BONES: No acute osseous abnormality.IMPRESSION:Unremarkable CT neck without IV contrast.While performing the above CT examination, radiation dose reduction wasaccomplished utilizing automated exposure control, adjusting of the mA and kVbased on the patient's body size and/or the use of imperative reconstructivetechniques.Electronically Signed By:Jani Vera MD , RadiologistDate/Time: 08/29/20 02:37 Name Value Range Interpretation Code Description Data Cecy rce(s) Supporting Document(s) ID Date Data Source [id number] 08/29/2020 02:02:00 AM [facility] Name Value Range Interpretation Code Description Data Cecy rce(s) Supporting Document(s) Lipase [Enzymatic activity/volume] in Serum or Plasma 37 U/L 13 - 60 [facility] ID Date Data Source [id number] 08/29/2020 02:02:00 AM [facility] Name Value Range Interpretation Code Description Data Cecy rce(s) Supporting Document(s) COMPREHENSIVE METABOLIC PANEL [facility] COMPREHENSIVE METABOLIC PANEL Sodium [Moles/volume] in Serum or Plasma 136 mEq/L 134 - 153 [facility] Potassium [Moles/volume] in Serum or Plasma 3.8 mEq/L 3.6 - 5.0 [facility] Chloride [Moles/volume] in Serum or Plasma 103 mEq/L 98 - 107 [facility] Carbon dioxide, total [Moles/volume] in Serum or Plasma 26 MEQ/L 22 - 30 [facility] Glucose [Mass/volume] in Serum or Plasma 106 MG/DL 65 - 110 [facility] BUN 14 MG/DL 7 - 21 [facility] Creatinine [Mass/volume] in Serum or Plasma 0.6 MG/DL 0.7 - 1.5 L [facility] BUN/CREAT 23 8 - 27 [facility] Protein [Mass/volume] in Serum or Plasma 6.6 G/DL 6.3 - 8.2 [facility] Albumin [Mass/volume] in Serum or Plasma 4.3 G/DL 3.9 - 5.0 [facility] Globulin [Mass/volume] in Serum by calculation 2.3 GM/DL 2.4 - 3.2 L [facility] A/G RATIO 1.9 0.8 - 2.0 [facility] Calcium [Mass/volume] in Serum or Plasma 9.3 MG/DL 8.4 - 10.2 [facility] Bilirubin.total [Mass/volume] in Serum or Plasma 0.8 MG/DL 0.2 - 1.3 [facility] Alkaline phosphatase [Enzymatic activity/volume] in Serum or Plasma 108 U/L 38 - 126 [facility] Aspartate aminotransferase [Enzymatic activity/volume] in Serum or Plasma 17 U/L 5 - 40 [facility] Alanine aminotransferase [Enzymatic activity/volume] in Seru m or Plasma 18 U/L 7 - 56 [facility] Anion gap 3 in Serum or Plasma 7.0 mmol/L 8.0 - 16.0 L [facility] AGE [address] [facility] al NON-AA GFR >60 mL/min [facility] ital AFR AMER GFR >60 mL/min [facility] spital Male GFR In terprentation 20-49 yrs >60 mL/min Normal 50-59 yrs >56 mL/min Normal 60-69 yrs >49 mL/min Normal 70-79yrs >42 mL/min Normal 80 and above >35 mL/min Normal Female GFR Interpretation 20-39 yrs >60 mL/min Normal 40-49 yrs >58 mL/min Normal 50-59 yrs >51 mL/min Normal 60-69 yrs >45 mL/min Normal 70-79 yrs >39 mL/min Normal 80 and above >32 mL/min Normal ID Date Data Source [id number] 08/29/2020 01:45:00 AM EST [facility] Name Value Range Interpretation Code Description Data Cecy rce(s) Supporting Document(s) Lactate [Moles/volume] in Serum or Plasma 1.0 MMOL/L 0.2 - 2.2 [facility] ID Date Data Source [id number] 08/29/2020 01:42:00 AM EST [facility] Name Value Range Interpretation Code Description Data Cecy rce(s) Supporting Document(s) CBC W/AUTOMATED DIFF [facility] COMPLETE BLOOD COUNT Leukocytes [#/volume] in Blood by Automated count 8.4 10^3/uL 4.2 - 1 1.0 [facility] Erythrocytes [#/volume] in Blood by Automated count 4.97 10^6/uL 4. 50 - 6.30 [facility] Hemoglobin [Mass/volume] in Blood 15.1 g/dL 14.0 - 16.0 [facility] Hematocrit [Volume Fraction] of Blood by Automated count 43.8 % 4 1.0 - 51.0 [facility] Erythrocyte mean corpuscular volume [Entitic volume] by Auto mated count 88.1 fL 80.0 - 94.0 [facility] Erythrocyte mean corpuscular hemoglobin [Entitic mass] by Automated count 30.4 pg 27.0 - 34.0 [facility] Erythrocyte mean corpuscular hemoglobin concentration [Mass/volume] by Automated count 34.5 g/dL 31.0 - 36.0 [facility] Erythrocyte distribution width [Ratio] by Automated count 12.6 % 11.5 - 14.8 [facility] Platelets [#/volume] in Blood by Automated count 258 10^3/uL 150 - 45 0 [facility] Platelet mean volume [Entitic volume] in Blood by Automated count 9.9 fL 7.4 - 10.4 [facility] Neutrophils/100 leukocytes in Blood by Automated count 59.4 % 37. 0 - 80.0 [facility] Lymphocytes/100 leukocytes in Blood by Manual count 28.6 % 25.0 - 40.0 [facility] Monocytes/100 leukocytes in Blood by Automated count 8.9 % 3.0 - 8.0 H [facility] Eosinophils/100 leukocytes in Blood by Automated count 2.1 % 0.0 - 7.0 [facility] Basophils/100 leukocytes in Blood by Automated count 0.6 % 0.0 - 2.0 [facility] %IG 0.4 % 0.0 - 0.0 H [facility] %NRBC 0.0 % 0.0 - 0.0 [facility] Neutrophils [#/volume] in Blood by Automated count 4.99 10^3/uL 2.00 - 6.90 [facility] Lymphocytes [#/volume] in Blood by Automated count 2.40 10^3/uL 0.60 - 3.40 [facility] Monocytes [#/volume] in Blood by Automated count 0.75 10^3/uL 0.00 - 0.90 [facility] Eosinophils [#/volume] in Blood by Automated count 0.18 10^3/uL 0.00 - 0.70 [facility] Basophils [#/volume] in Blood by Automated count 0.05 10^3/uL 0.00 - 0.20 [facility] #IG 0.03 10^3/uL 0.00 - 0.10 [facility] ospital #NRBC 0.00 10^3/uL 0.00 - 0.00 [facility] ospital MANUAL DIFF NOT INDICATED [facility] RBC MORPH NOT INDICATED [facility] spital ID Date Data Source [id number] 08/29/2020 01:40:00 AM EST [facility] Name Value Range Interpretation Code Description Data Cecy rce(s) Supporting Document(s) DRUG SCREEN URINE [facility] URINE DRUG SCREEN Amphetamine [Presence] in Urine by Screen method NEGATIVE NORMAL: N EGATIVE [facility] BARBITURATES NEGATIVE NORMAL: NEGATIVE [facility] BENZO NEGATIVE NORMAL: NEGATIVE [facility] COCAINE NEGATIVE NORMAL: NEGATIVE [facility] Tetrahydrocannabinol [Presence] in Urine NEGATIVE NORMAL: NEGATIVE [facility] OPIATES NEGATIVE NORMAL: NEGATIVE [facility] Phencyclidine [Presence] in Urine by Screen method NEGATIVE NOR MAL: NEGATIVE [facility] \\BLDo\\URINE DRUG SCR EEN INTERPRETATION\\BLDx\\ THE CUTOFFF LEVELS FOR DETECTION ARE FOLLOWS: AMPHETAMINES 1000 ng/ml BARBITUARATES 200 ng/ml BENZODIAZEPINES 100 ng/ml THC 50 ng/ml PHENCYCLIDINE 25 ng/ml OPIATES 300 ng/ml COCAINE 300 ng/ml ALL POSITIVES ARE CONSIDERED PRESUMPTIVE POSITIVE CONFIRMATION WILL BE PERFORMED AT PHYSICIAN REQUEST. ID Date Data Source [id number] 08/29/2020 01:25:00 AM EST [facility] Name Value Range Interpretation Code Description Data Ceyc rce(s) Supporting Document(s) UR[facility]YSIS [facility] ak[facility]ha URINALYSIS SOURCE R [facility] COLOR yellow NORMAL: Yellow [facility] CLARITY clear NORMAL: Clear [facility] Specific gravity of Urine by Test strip 1.010 1.001 - 1.030 [facility] pH 6.5 5 - 9 [facility] Glucose [Mass/volume] in Urine by Test strip NORM NORMAL: Negat [facility] Bilirubin.total [Presence] in Urine by Test strip NEG NORMAL: Negative [facility] Ketones [Presence] in Urine by Test strip NEG NORMAL: Negative [facility] Protein [Mass/volume] in Urine by Test strip NEG NORMAL: Negat [facility] Nitrite [Presence] in Urine by Test strip NEG NORMAL: Negative [facility] BLOOD NEG NORMAL: Negative [facility] Leukocyte esterase [Presence] in Urine by Test strip NEG [place] L: Negative [facility] Urobilinogen [Mass/volume] in Urine by Test strip NOR less alida n 1.0 mg/dL [facility] MICROSCOPIC Not Indicate [facility]sp[facility] ID Date Data Source [id number] 08/19/2020 01:52:52 PM EDT [facility] Vital SignsBlood Pressure: 138/82 Patient History Medical History:Brain TumorSeizure DisorderDepressionHx of kidney stonesBipolarSurgical History:Partial lobectomyFamily History:No known family historySocial/Personal History: Smoking Status: current some day smokerDo you vape? NoCurrent Problems: Normal examination (ICD-V65.5) (DCH63-Q49.1)Dental caries/Impaction of teeth (ICD-521.00) (VQF65-R06.9)Contact dermatitis and other eczema, unspecified cause (ICD-692.9) (DBZ56-E33.9)Depression (ICD-311) (KZW75-S26.9)Seizure Disorder (ICD-780.39) (JWZ92-L78.9)Brain Tumor (ICD-191.9) (UIU56-P46.9)Problem list reviewed during this update.Current Medications: SEROQUEL 200 MG ORAL TABLET (QUETIAPINE FUMARATE) 1 tablet PO q HSMedication list reviewed during this update.Allergy list reviewed during this update.No known allergies.Patient declined [facility].Past Medical History:(reviewed - no changes required) Brain TumorSeizure DisorderDepressionHx of kidney stonesBipolar Dental Chart: Procedures:Type - CDT Code - Description B - (D0150) Comprehensive oral evaluation - new or established patient (Performed by China Amaya DDS) B - (D0274) Bitewings, 4 radiographic images (Performed by Kimberley Wen RDH) B - (D1110) Prophylaxis, adult (Performed by Kimberley Wen RDH) Treatments:Type - CDT Code - Description T - (D7140) Extraction, erupted tooth or exposed root (elevation and/or forceps removal) on Tooth # 2 (Performed by Kimberley Wen RDH) T - (D7140) Extraction, erupted tooth or exposed root (elevation and/or forceps removal) on Tooth # 1 (Performed by Kimberley Wen RDH) T - (D2140) Amalgam-one surface, primary or permanent on Tooth # 14 on Tooth Surface O (Performed by Kimberley Wen RDH) Existing:Type - CDT Code - Description[E] Decay On #14 Surface O Chart Alert:bruce Prophy 1 per 6 month periodchild through age 12adult 13+next avail has an apt 02/09/2016Exam 1 per 6 month periodnext avail has an apt 02/09/2016Fl2 1 per 6 month periodthrough age 20next avail Bwx 4 films per 6 month periodnext avail 02/09/2016Panorex 1 every 3 yearsnext avail Sealants every 5 yearsage 5-15Pre authorization needed for perio with charting and fmx Chart Notes:shailesh (Jul 242019 2:39PM): [place]-[employer] exam, 4BW's (pt kept moving his head and barely opens), Adult prophyPt states he brushes bid. Heavy calculus removed from the #2-3 buccal area/ light to mod else where. Tissue mod papillary inflammation; mod bleeding with hand scaling and ultrasonic use. Med Hx is significant for a TBI. 6 month recall. Pt is difficult to work on aggitated state and constantly moving his head. Pt kept talking about his anger issues; throwing and breaking thinks. Some calculus remains but pt was becoming increasingly aggitated and visit was ended.Referral for extraction of #12 and 16.N/V-FillingKimberley Wen RDH by shailesh (08/19/2020 2:39 PM): ; yany (Aug 20 2020 7:29AM): [facility](-). CC: none. Reviewed Xrays. Exam: caries detected. OCS: WNL, IO/ EO completed, No significant hard findings upon clinical exam.Additional PPE requirements due to COVID-19 in the dental setting, N95, surgical mask, hair covering, gown and shieldPt was cooperative. OHI given Referral: exo # 2 and 16. NV:Kimberley Araujo RDH by yany (08/20/2020 7:29 AM): Tooth Notes and Watches: Assessment & Plan Medications:SEROQUEL 200 MG ORAL TABLETAllergies:No Known Allergies (updated 08/19/2020) Orders:Oral Surgery Referral [[id number]-[id number]] Clinical Visit Summary Declined Name Value Range Interpretation Code Description Data Cecy rce(s) Supporting Document(s) ID Date Data Source [id number] 08/14/2020 07:17:00 PM EDT [facility] 1 Medication Reconciliation Report [facility] Emergency Department [address] [place] [address] Phone #: ext- [phone] 08/14/2020 19:09 Patient: CAMILO BUTTS Sex: M : 1990 Age: 29yWeight: 81.6 kgHeight/Length: 72 in.BMI: 24.4ALLERGIES: No Known Drug AllergyThe patient's Home Medications are listed below:THE FOLLOWING MEDICATIONS NEED TO BE RECONCILED: SEROquel Oral (300 mg) 1/2 tablet, daily, at bedtimeThe source(s) of the original Home Medication information:Not obtained.The following Medications were given to the patient in the Emergency Department:None.The following Medications were prescribed to the patient:None. Name Value Range Interpretation Code Description Data Cecy rce(s) Supporting Document(s) ID Date Data Source [id number] 08/14/2020 07:17:00 PM EDT [place] [address] Medication Administration Record [facility] Emergency Department [address] [place] [address] Phone #: ext- [phone] 19:09 Patient: CAMILO BUTTS Sex: M : 1990 Age: 29yWeight: 81.6 kgHeight/Length: 72 inBMI: 24.4ALLERGIES: No Known Drug AllergyDate/Time Medication Administered Medication Ordered Name Value Range Interpretation Code Description Data Cecy rce(s) Supporting Document(s) ID Date Data Source [id number] 08/14/2020 07:17:00 PM EDT [facility] 1 General Instructions [facility] Emergency Department [address] [place] [address] Phone #: ext- [phone] 08/14/2020 19:09 Patient: CAMILO BUTTS Sex: M : 1990 Age: 29y Anxiety reaction. No hyperventilation.INSTRUCTIONS Warnings: GENERAL WARNINGS: Return or contact your physician immediately if your condition worsens or changes unexpectedly, if not improving as expected, or if other problems arise. Understanding of the discharge instructions verbalized by patient. Follow-up with: [facility], , , [address], [place], [facility] Follow up in one week. Call for an appointment. ADDITIONAL INFORMATIONAnxiety ReactionAnxiety is the feeling we all get when we think something bad might happen. It is a normal responseto stress and usually causes only a mild reacti on. When anxiety becomes more severe, itcan interfere with daily life. In some cases, you may not even be aware of what it is you're anxiousabout. There may also be a genetic link or it may be a learned behavior in the home.Both psychological and physical triggers cause stress reaction. It's often a response to fear oremotional stress, real or imagined. This stress may come from home, family, work, or socialrelationships.During an anxiety reaction, you may feel: Helpless Nervous Depressed IrritableYour body may show signs of anxiety in many ways. You may experience: Dry mouth 2 General Instructions [facility] Emergency Department [address] [place] [address] Phone #: ext- [phone] 08/14/2020 19:09 Patient: CAMILO BUTTS Sex: M : 1990 Age: 29y Shakiness Dizziness Weakness Trouble breathing Breathing fast (hyperventilating) Chest pressure Sweating Headache Nausea Diarrhea Tiredness Inability to sleep Sexual problemsHome care Try to locate the sources of stress in your life. They may not be obvious. These may include: o Daily hassles of life (such as traffic jams, missed appointments, or car troubles) o Major life changes, both good (new baby or job promotion) and bad (loss of job or loss of loved one) o Overload: feeling that you have too many responsibilities and can't take care of all of them at once o Feeling helpless or feeling that your problems are beyond what you're able to solve Notice how your body reacts to stress. Learn to listen to your body signals. This will help you take action before the stress becomes severe. When you can, do something about the source of your stress. (Avoid hassles, limit the amount of change that happens in your life at one time and take a break when you feel overloaded). Unfortunately, many stressful situations can't be avoided. It is necessary to learn how to better manage stress. There are many proven methods that will reduce your anxiety. These include simple things like exercise, good nutrition, and adequate rest. Also, there are certain 3 General Instructions [facility] Emergency Department [address] [place] [address] Phone #: ext- [phone] 08/14/2020 19:09 [id number] Sex[facility] : 1990 Age: 29y techniques that are helpful: o Relaxation o Breathing exercises o Visualization o Biofeedback o MeditationFor more information about this, consult your healthcare provider or go to a local bookstore hortencia the many books and tapes available on this subject.Follow-up careIf you feel that your anxiety is not responding to self- help measures, contact your healthcare provideror make an appointment with a counselor. You may need short-term psychological counseling andtemporary medicine to help you manage stress.Call [phone] if any of these happen: Trouble breathing Confusion Drowsiness or trouble wakening Fainting or loss of consciousness Rapid heart rate Seizure New chest pain that becomes more severe, lasts longer, or spreads into your shoulder, arm, neck, jaw, or backWhen to seek medical adviceCall your healthcare provider right away if any of these happen: Your symptoms get worse Severe headache not relieved by rest and mild pain reliever 4 General Instructions [facility] Emergency Department [address] [place] [address] Phone #: ext- [phone] 08/14/2020 19:09 Patient: CAMILO BUTTS Sex: M : 1990 Age: 29y [id number] [employer] [place] [address]. All rights reserved. This information is not intended as asubstitute for professional medical care. Always follow your healthcare professional's instructions. You have been given the following additional information: Anxiety Reaction(Electronically signed by Pedro Kim, 08/14/2020 20:15) Name Value Range Interpretation Code Description Data Cecy rce(s) Supporting Document(s) ID Date Data Source [id number] 08/14/2020 07:17:00 PM EDT [facility] 1 Clinical Report - Nurses [facility] Emergency Department [address] [place] [address] Phone #: ext- [phone] 08/14/2020 19:09 Patient: CAMILO BUTTS Sex: M : 1990 Age: 29yTRIAGEHistorian: patient.Acuity: LEVEL 4.Chief Complaint: (wants to be checked out denies any symptoms).No acute distress.No fever, weakness, cough, difficulty breathing or skin rash. Denies muscle aches. --19:30 08/14/20Alfonso Buck R.N.19:27 08/14/20. BP: 136/98. MAP: 110. HR: 80. RR: 16. O2 saturation: 98%. Temp: 97.8 F. Pain levelnow: 0/10. --19:30 08/14/20 Alfonso Buck R.N.Weight: 81.6 kg stated. Height/Length: 72 inches Per Patient. BMI: 24.4. --19:29 08/14/20 Alfonso Buck R.N.MedicationsSEROquel Oral (Tablet 300 mg) 1/2 tablet, daily at bedtime. --08/14/20 Alfonso Buck R.N.AllergiesNo Known Drug Allergy. --08/14/20 Alfonso Buck R.N.HistoryPAST MEDICAL HX: No history of diabetes mellitus, hypertension, heart disease or lung disease.SURGERY HX: Craniotomy. ( removal of tumors r/t seizures).SOCIAL HX: Never smoker. Occasional alcohol use. History of occasional drug use. He was offeredHIV testing but declined and hepatitis C testing but declined. He has not traveled outside the [place]Infectious disease exposure: No infectious disease exposure.SELF HARM ASSESSMENT: Self harm assessment was performed. The patient answered "no" to thequestion(s) "Have you recently felt down, depressed, or hopeless?" and "Do you have thoughts of harmingor killing yourself?".ABUSE ASSESSMENT: Abuse assessment.NUTRITIONAL RISK ASSESSMENT: The nutritional risk assessment revealed no deficiencies.FUNCTIONAL ASSESSMENT: Functional assessment: no impairments noted.LEARNING NEEDS ASSESSMENT: The learning needs assessment revealed no barriers. 2 Clinical Report - Nurses [facility] Emergency Department [address] [place] [address] Phone #: ext- [phone] 08/14/2020 19:09 Patient: CAMILO BUTTS Sex: M : 1990 Age: 29y FALL RISK ASSESSMENT: Fall risk assessment completed. No risk factors identified. SKIN INTEGRITY ASSESSMENT: Skin integrity risk assessment completed. No skin integrity risk identified. --19:30 08/14/20 Alfonso Buck R.N. FAMILY HX: No significant family medical history. --19:53 08/14/20 Pedro Kim.PHYSICAL [id number] 08/14/20. Ambulatory to room.GENERAL / NEURO / PSYCH: Alert. Oriented X 4. Appears in no acute distress. Appears anxious.HEENT: Pupils equal, round and reactive to light. No facial asymmetry noted. Mucous membranes arepink.RESPIRATORY: Respirations not labored. Chest nontender. Breath sounds within normal limits.CVS: Normal sinus rhythm noted. Capillary refill less than 2 seconds. Pulses within normal limits.GI / : Abdomen soft and nontender and normal bowel sounds.SKIN: Skin is warm and dry. --19:55 08/14/20 Carito Barry R.N.NURSING PROGRESS NOTESSide rails up. Bed placed in lowest position. Brakes of bed on. --19:30 08/14/20 Alfonso Buck R.N.DISPOSITION / DISCHARGE No learning barriers present. Discharge instructions provided and reviewed with the patient. Reviewed warnings. Reviewed medication(s). Treatments reviewed. Reviewed referrals. Patient verbalized understanding. Written instructions provided in [place] Ze[place]. The patient was discharged home and unaccompanied at time of discharge. He left ambulatory and via taxi. 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 --20:04 08/14/20 Carito Barry R.N. 20:03 08/14/20. BP: 141/93. MAP: 109. HR: 81. RR: 16. O2 saturation: 98%. Temp: 97.9 F. Pain level now: 0/10. --20:04 08/14/20 Carito Barry R.N.Locked/Released at 08/14/2020 20:04 by Carito Barry R.N. Name Value Range Interpretation Code Description Data Cecy rce(s) Supporting Document(s) ID Date Data Source [id number] 08/14/2020 07:17:00 PM EDT [facility] 1 Clinical Report - Physicians/Mid Levels [facility] Emergency Department [address] [place] [address] Phone #: ext- [phone] 08/14/2020 19:09 [id number] Sex: M : 1990 Age: 29y Time Seen: 19:35 08/14/2020. Arrived- By private vehicle. Historian- patient.HISTORY OF PRESENT ILLNESS Chief Complaint: ( "I want to be checked out"). This started today and is still present. At its maximum, severity described as mild. Modifying factors. Not worsened by anything. Not relieved by anything. No loss of appetite, weight loss, headache, fatigue or weakness. Denies sleep problem. (Patient wants to be checked out. He gets worried and anxious. Patient states that with "what's going on in the world" he wants to make sure he's doing "okay" Wants to know if he needs COVID testing. no recent exposure to sick contacts. no medication changes). Similar symptoms previously. Patient has had similar symptoms several times. Recent medical care: The patient was seen recently in the emergency department.REVIEW OF SYSTEMSNo fever, difficulty breathing, headache, blackouts or anorexia. No fatigue, double vision, runny nose,mouth sores or cough. No diarrhea, nausea, vomiting, neck pain or depression. No head injury,numbness, seizure, suicidal thoughts or diabetic symptoms. No difficulty with urination. Denies sleepdisorder. The patient has had anxiety. All other systems reviewed and are negative.PAST HISTORYSee nurses notes. Problems: Obsessive Compulsive Disorder. Bipolar Disorder. Seizure. STD - Sexually Transmitted Disease. Additional Surgeries: Craniotomy. Medications: SEROquel Oral (Tablet 300 mg) 1/2 tablet, daily at bedtime. Allergies: No Known Drug Allergy.SOCIAL HISTORYAlcohol use. History of drug use: marijuana. Resides in a house. He lives alone. 2 Clinical Report - Physicians/Mid Levels [facility] Emergency Department [address] [place] [address] Phone #: ext- [phone] 08/14/2020 19:09 Patient: CAMILO BUTTS Sex: M : 1990 Age: 29yFAMILY HISTORYNo significant family medical history.ADDITIONAL NOTESThe nursing notes have been reviewed.PHYSICAL EXAMVital Signs: 08/14/2020 19:27 BP: 136/98. MAP: 110. HR: 80. RR: 16. O2 saturation: 98%. Temp: 97.8 F.Pain level now: 0/10. Have been reviewed as normal.Appearance: Alert. No acute distress. Alert. Anxious.Eyes: Pupils equal, round and reactive to light. Eyes normal inspection.ENT: Ears normal. Nose normal. Pharynx normal.Neck: Normal inspection. Neck supple.CVS: Normal heart rate and rhythm. Heart sounds normal.Abdomen: No visible injury. Soft. Bowel sounds normal. No organomegaly.Back: Normal inspection.Skin: Normal skin color.Extremities: No lower extremity edema.Neuro: Oriented X 3. No motor deficit. No sensory deficit. (non-pressured speech).Psych: Cognition normal. Denies suicidal thoughts. Patient does not express homicidal thoughts.PROGRESS AND PROCEDURESCourse of Care: 19:59 08/14/20. Patient's main concern is that he is doing well. wanted to be checked out.I reviewed old records and labs. no signs of any agitation or paranoid thoughts. 20:03 08/14/20. I felt like the patient has some component of obsessive-compulsive disorder with anxiety. Patient denies depression. Disposition: Discharged. Condition: stable.CLINICAL IMPRESSION Anxiety reaction. No hyperventilation.INSTRUCTIONS Warnings: GENERAL WARNINGS: Return or contact your physician immediately if your condition worsens or changes unexpectedly, if not improving as expected, or if other problems arise. Understanding of the discharge instructions verbalized by patient. 3 Clinical Report - Physicians/Mid Levels [facility] Emergency Department [address] [place] [address] Phone #: ext- [phone] 08/14/2020 19:09 Patient: CAMILO BUTTS Sex: M : 1990 Age: 29y Follow-up with: [facility], , , [address] [place], [address] Follow up in one week. Call for an appointment.(Electronically signed by Pedro Kim, 08/14/2020 20:15) Name Value Range Interpretation Code Description Data Cecy rce(s) Supporting Document(s) ID Date Data Source [id number] 05/04/2020 10:53:00 AM EDT [facility] [address] [place] [address] PHONE: [phone] FAX: [phone] Name .................. : BENJAMÍN Navarro Acct Number.................. : [id number] ROOM. ................. : TR-07 MR Number ................... : [id number] Stay type ............. : E/R Discharge Date......... ... : Admit Date ......... : 05/02/20 Admit Phys .................... : SAQIB PA Date of ....... : 1990 Family Phys ................... : NON STAFF Phone .................. : [phone] Age ................................ : 29 Film# .................. .:[id number] Sex ................................. : M Unsigned transcriptions are preliminary reports and do not represent a medical or legal document CT HEAD W/O CONTRAST [id number] COMPLETE:05/02/20 11:52 KBO [id number] Reason(s): Head Pain CT OF THE HEAD WITHOUT CONTRAST: COMPARISON: 01/10/18 FINDINGS: There is an unchanged arachnoid cyst noted posterior to the left temporal lobe. Solid mass lesion, acute ischemic event or intracranial hemorrhage is not seen. There is no obstructive hydrocephalus. There is no fracture. Intraorbital pathology is not seen. The sinuses and orbits are unremarkable. IMPRESSION: No acute pathology or interval change from 01/10/18. Left temporal region arachnoid cyst noted without change. While performing the above CT examination, radiation dose reduction was accomplished utilizing automated exposure control, adjusting of the mA and kV based on the patient's body size and/or the use of imperative reconstructive techniques. CT dose: 857.7 mGycm Electronically Reviewed and Signed By Santosh Salguero MD , 05/04/20 10:53, KGG Transcribe Initials: DZ , Transcribe Date: 05/02/20 12:23, Dictation Date: Copy for: PARVEEN GALLAGHER via fax Copy for: EMERGENCY DEPT via [facility] Copy for: 710 MED REC DISCHARGED Page 1 of 1 Name Value Range Interpretation Code Description Data Cecy rce(s) Supporting Document(s) ID Date Data Source [id number] 05/04/2020 10:53:00 AM EDT [facility] [address] [place] [address] PHONE: [phone] FAX: [phone] Name .................. : BENJAMÍN Navarro Acct Number.................. : [id number] ROOM. ................. : TR-07 MR Number ................... : [id number] Stay type ............. : E/R Discharge Date......... ... : Admit Date ......... : 05/02/20 Admit Phys .................... : SAQIB PA Date of ....... : 1990 Family Phys ................... : NON STAFF Phone .................. : [phone] Age ................................ : 29 Film# .................. .:[id number] Sex ................................. : M Unsigned transcriptions are preliminary reports and do not represent a medical or legal document CHEST PORTABLE [id number] COMPLETE:05/02/20 11:52 KBO [id number] Reason(s): seizure PORTABLE CHEST X-RAY: COMPARISON: 11/06/19 FINDINGS: The cardiac and mediastinal silhouettes appear normal and the lungs are clear. The bones and soft tissues are normal. The upper abdomen is unremarkable. IMPRESSION: No acute disease identifiable. Electronically Reviewed and Signed By Santosh Salguero MD , 05/04/20 10:53, KGG Transcribe Initials: FIORELLA , Transcribe Date: 05/02/20 12:21, Dictation Date: Copy for: PARVEEN GALLAGHER via fax Copy for: EMERGENCY DEPT via modem Copy for: 710 MED REC DISCHARGED Page 1 of 1 Name Value Range Interpretation Code Description Data Cecy rce(s) Supporting Document(s) ID Date Data Source [id number] 05/03/2020 01:07:00 [place] [address] RESPIRATORY CARE REPORT ==== ---------NAME------- NUMBER SEX AGE ADMIT DISC. XRAY# F/C TYPEBENJAMÍN Navarro [id number] M 29 05/02/20 05/02/20 [id number] XBE E/R DATE OF : 1990 M/R# [id number] #: [id number] TR-07 LOCATION: EMERGENCY DEPT EKG [id number] COMPLE TE:05/02/20 14:[place] [id number] PHYSICIAN: SAQIB HUGGINS CH Name Value Range Interpretation Code Description Data Cecy rce(s) Supporting Document(s) ID Date Data Source [id number] 05/02/2020 10:49:00 AM EDT [facility] 1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 2+; left radial 2+; right dorsalis pedis 2+; leftdorsalis pedis 2+; right posterior tibial 2+; left posterior tibial 2+. 3 Clinical Report - Physicians/[facility] Emergency Department [address] [place] [address] Phone #: ext- [phone] 05/02/2020 10:49 Patient: CAMILO BUTTS Sex: M : 1990 Age: 29y Respiratory: Chest normal on inspection. No respiratory distress. Lungs clear. Good chest movement. Breath sounds normal and equal. [place] st nontender. Abdomen: Normal inspection. Soft and nontender. Bowel sounds normal. No distention. Back: Normal inspection. Skin: Skin warm and dry. Extremities: Extremities exhibit normal ROM. No lower extremity edema. No calf tenderness. No lower extremity edema. Neuro: Awake. Alert. Oriented X 3. Mood/affect normal. Speech normal. Cranial nerves II through XII intact and normal (as tested). No motor deficit. Moves all extremities. No sensory deficit. Reflexes normal. Reflex exam: right triceps 2+, left triceps 2+, right biceps 2+, left biceps 2+ and left brachioradialis 2+. Psych: Cognition normal. Thought process and content normal. Insight and judgement normal.LABS, X-RAYS, AND EKGEKG: No acute process. Normal EKG. Normal sinus rhythm. Rate: 88. NSR; Normal ECG Discussed and reviewed with/by attenidng. Chest X-ray: (Noemy chatman Kirwin - 05/02/2020 11:36:39 AM No acute disease). The X-rays were interpreted by the radiologist. CT Head: (Noemy chatman Kirwin - 05/02/2020 11:37:59 AM No acute disease No Significant Change). The study was interpreted by the radiologist. Laboratory Tests: Chest Portable 1 View: (LULU: 05/02/2020 11:12) ( MsgRcvd 05/02/2020 12:22) In Progress CHEST PORTABLE Reason(s): seizure TRANSPORTATION: IV? O2? Oxygen?(No) Room: ED Exam CHEST PORTABLE [facility] [address] [place] [address] PHONE: [phone] FAX: [phone] Name .................. : BENJAMÍN Navarro Acct Number.................. : [id number] ROOM. ................. : TR-07 MR Number ................... : [id number] Stay type ............. : E/R Discharge Date......... ... : Admit Date ......... : 05/02/20 Admit Phys .................... : SAQIB GRUBBS Date of ....... : 1990 Family Phys ................... : NON STAFF Phone .................. : [phone] Age ................................ : 29 Film# .................. .:[id number] Sex ................................. : M Unsigned transcriptions are preliminary reports and do not represent a medical or legal document CHEST PORTABLE [id number] COMPLETE:05/02/20 11:52 KBO [id number] Reason(s): seizure 4 Clinical Report - Physicians/Mid Levels [facility] Emergency Department [address] [place] [address] Phone #: ext- [phone] 05/02/2020 10:49 Patient: CAMILO BUTTS Sex: M : 1990 Age: 29y PORTABLE CHEST X-RAY: COMPARISON: 11/06/19 FINDI NGS: The cardiac and mediastinal silhouettes appear normal and the lungs are clear. The bones and soft tissues are normal. The upper abdomen is unremarkable. IMPRESSION: No acute disease identifiable. Electronically Reviewed and Signed By ZENAIDA SIGNDATEGRACE Transcribe Initials: FIORELLA , Transcribe Date: 05/02/20 12:21, Dictation Date: <<REPDIST>> Page 1of 1Urinalysis: (LULU: 05/02/2020 12:30) ( MsgRcvd 05/02/2020 12:52) Final results Test Result Flag Units (Reference) URINALYSIS URINALYSIS SOURCE R COLOR yellow (NORMAL: Yello CLARITY clear (NORMAL: Clear SPEC GRAVITY 1.020 (1.001 - 1.030 pH 6 (5 - 9) GLUCOSE NORM (NORMAL: Negat BILIRUBIN NEG (NORMAL: Negat KETONE NEG (NORMAL: Negat PROTEIN 15 (NORMAL: Negat NITRITE NEG (NORMAL: Negat BLOOD NEG (NORMAL: Negat LEUK EST NEG (NORMAL: Negat UROBILINOGEN NOR (less than 1.0 M ICROSCOPIC See Below WBC 0 - 1 (NORMAL: NONE RBC 0 - 1 (NORMAL: NONE EPITHELIAL FEW (NORMAL: NONE BACTERIA Trace (NORMAL: NONEDrug Screen- Urine: (LULU: 05/02/2020 12:30) ( MsgRcvd 05/02/2020 12:52) Final results Test Result Flag Units (Reference) DRUG SCREEN URINE URINE DRUG SCREEN AMPHETAMINES NEGATIVE (NORMAL: NEGAT 5 Clinical Report - Physicians/Mid Levels [facility] Emergency Department [address] [place] [address] Phone #: ext- [phone] 05/02/2020 10:49 Patient: CAMILO BUTTS Sex: M : 1990 Age: 29y BARBITURATES NEGATIVE (NORMAL: NEGAT BENZO NEGATIVE (NORMAL: NEGAT COCAINE NEGATIVE (NORMAL: NEGAT THC NEGATIVE (NORMAL: NEGAT OPIATES NEGATIVE (NORMAL: NEGAT PCP NEGATIVE (NORMAL: NEGAT \\BLDo\\URINE DRUG SCREEN INTERPRETATION\\BLDx\\ THE CUTOFFF LEVELS FORDETECTION ARE FOLLOWS: AMPHETAMINES 1000 ng/mlBARBITUARATES 200 ng/ml BENZODIAZEPINES 100 ng/mlTHC 50 ng/ml PHENCYCLIDINE 25 ng/mlOPIATES 300 ng/ml COCAINE 300 ng/mlALL POSITIVES ARE CONSIDERED PRESUMPTIVE POSITIVE CONFIRMATION WILL BE PERFORMED AT [facility].CMP: (LULU: 05/02/2020 11:13) ( MsgRcvd 05/02/2020 11:44) Final results Test Result Flag Units (Reference) COMPREHENSIVE METABOLIC PANEL COMPREHENSIVE METABOLIC PANEL SODIUM 138 mEq/L (134 - 153) POTASSIUM 3.9 mEq/L (3.6 - 5.0) CHLORIDE 105 mEq/L (98 - 107) CO2 21 L MEQ/L (22 - 30) GLUCOSE 112 H MG/DL (65 - 110) BUN 10 MG/DL (7 - 21) CREATININE 0.6 L MG/DL (0.7 - 1.5) BUN/CREAT 17 (8 - 27) TOTAL PROTEIN 6.6 G/DL (6.3 - 8.2) ALBUMIN 4.4 G/DL (3.9 - 5.0) GLOBULIN 2.2 L GM/DL (2.4 - 3.2) A/G RATIO 2.0 (0.8 - 2.0) CALCIUM 8.7 MG/DL (8.4 - 10.2) TOTAL BILI <0.7 MG/DL (0.2 - 1.3) ALKALINE PHOS 112 U/L (38 - 126) SGOT/AST 25 U/L (5 - 40) SGPT/ALT 28 U/L (7 - 56) ANION GAP 12.0 mmol/L (8.0 - 16.0) AGE 29 yrs NON-AA GFR >60 mL/min AFR AMER GFR >60 mL/min Male GFR Interprentation 20-49 yrs >60 mL/min Szrpdb74-02 yrs >56 mL/min Normal 60-69 yrs >49 mL/min Normal 70-79yrs>42 mL/min Normal 80 and above >35 mL/min Normal Female GFRInterpretation 20-39 yrs >60 mL/min Normal 40-49 yrs >58 mL/minNormal 50-59 yrs >51 mL/min Normal 60-69 yrs >45 mL/min Hechip10-97 yrs >39 mL/min Normal 80 and above >32 mL/min NormalCBC w Diff: (LULU: 05/02/2020 11:13) ( MsgRcvd 05/02/2020 11:40) Final results Test Result Flag Units * *(Reference) CBC W/AUTOMATED DIFF COMPLETE BLOOD COUNT WBC 6.9 10/uL (4.2 - 11.0) RBC 5.08 10/uL (4.50 - 6.30) HEMOGLOBIN 15.1 g/dL (14.0 - 16.0) HEMATOCRIT 44.7 % (41.0 - 51.0) MCV 88.0 fL (80.0 - 94.0) MCH 29.7 pg (27.0 - 34.0) 6 Clinical Report - Physicians/Mid Levels [facility] Emergency Department [address] [place] [address] Phone #: ext- [phone] 05/02/2020 10:49 Patient: CAMILO BUTTS Sex: M : 1990 Age: 29y MCHC 33.8 g/dL (31.0 - 36.0) RDW 12.4 % (11.5 - 14.8) PLATELETS 255 10/uL (150 - 450) MPV 9.9 fL (7.4 - 10.4) NEUT 74.4 % (37.0 - 80.0) LYMPH 14.6 L % (25.0 - 40.0) MONO 7.5 % (3.0 - 8.0) EOS 1.9 % (0.0 - 7.0) BASO 0.6 % (0.0 - 2.0) %IG 1.0 H % (0.0 - 0.0) %NRBC 0.0 % (0.0 - 0.0) #NEUT 5.15 10/uL (2.00 - 6.90) #LYMPH 1.01 10/uL (0.60 - 3.40) #MONO 0.52 10/uL (0.00 - 0.90) #EOS 0.13 10/uL (0.00 - 0.70) #BASO 0.04 10/uL (0.00 - 0.20) #IG 0.07 10/uL (0.00 - 0.10) #NRBC 0.00 10/uL (0.00 - 0.00) MANUAL DIFF NOT INDICATED RBC MORPH NOT INDICATEDCPK: (LULU: 05/02/2020 11:13) ( [facility] 05/02/2020 11:44) Final results Test Result Flag Units (Reference) CPK 204 H U/L (30 - 170)Acetaminophen Level: (LULU: 05/02/2020 11:13) ( [facility] 05/02/2020 11:41) Final results Test Result Flag Units (Reference) ACETAMINOPHEN <5.0 UG/ML (0.0 - 30.0)Salicylate Level: (LULU: 05/02/2020 11:13) ( [facility] 05/02/2020 11:44) Final results Test Result Flag Units (Reference) SALICYLATE <0.3 L mg/dL (2.0 - 20.0)CT Head W/O Cont: (LULU: 05/02/2020 11:06) ( [facility] 05/02/2020 12:26) In ProgressCT HEAD W/O CONTRASTReason(s): Head PainTRANSPORTATION: WC IV? O2? Oxygen?(No) Room: ED CMTS: Seizure Exam CT HEAD W/[place] [address] PHONE: [phone] FAX: [phone] Name .................. : BENJAMÍN Navarro Acct Number.................. : [id number] ROOM. ................. : TR-07 MR Number ................... : [id number] Stay type ............. : E/R Discharge Date......... ... : Admit Date ......... : 05/02/20 Admit Phys .................... : SAQIB GRUBBS Date of ....... : 1990 Family Phys ................... : NON STAFF Phone .................. : [phone] Age ................................ : 29 Film# .................. .:[id number] Sex ................................. : M Unsigned transcriptions are preliminary reports and do not represent a medical or legal document CT HEAD W/O CONTRAST [id number] COMPLETE:05/02/20 11:52 KBO [id number] Reason(s): Head Pain 7 Clinical Report - Physicians/Mid Levels [facility] Emergency Department [address] [place] [address] Phone #: ext- [phone] 05/02/2020 10:49 Patient: CAMILO BUTTS Sex: M : 1990 Age: 29y CT OF THE HEAD WITHOUT CONTRAST: COMPARISON: 01/10/18 FINDINGS: There is an unchanged arachnoid cyst noted posterior to the left temporal lobe. Solid mass lesion, acute ischemic event or intracranial hemorrhage is not seen. There is no obstructive hydrocephalus. There is no fracture. Intraorbital pathology is not seen. The sinuses and orbits are unremarkable. IMPRESSION: No acute pathology or interval change from 01/10/18. Left temporal region arachnoid cyst noted without change. While performing the above CT examination, radiation dose reduction was accomplished utilizing automated exposure control, adjusting of the mA and kV based on the patient's body size and/or the use of imperative reconstructive techniques. CT dose: 857.7 mGycm Electronically Reviewed and Signed By DCTNAME , SIGNDATE, ALVINAG Transcribe Initials: FIORELLA , Transcribe Date: 05/02/20 12:23, Dictation Date: <<REPDIST>> Page 1 of 1 Chest 1 View: (LULU: 05/02/2020 11:06) ( MsgRcvd 05/02/2020 11:12) Canceled Reason(s): Cough Reason(s): Cough TRANSPORTATION: IV? O2? Oxygen?(No) Room: ED.PROGRESS AND PROCEDURESCourse of Care: VSS, NAD, AOx3, interacting well and appropriately, no use of accessory muscle, able tospeak full sentences, stable, non-toxic looking. Enter room and pt lying peacefully in bed in NAD. Patient stable. Denies any new issues, concerns, or complaints. Pt has long chronic hx of seizures is brought to the ER via EMS for seizure. Pt sts that he was sleeping when it happend and his GM called the EMS. Sts that he feels good/normal now. Sts that it has been a 8 Clinical Report - Physicians/Mid Levels [facility] Emergency Department [address] [place] [address] Phone #: ext- [phone] 05/02/2020 10:49 Patient: CAMILO BUTTS Sex: M : 1990 Age: 29y few years since last seizure. Denies seeing a neurologist or taking seizure meds despite hx. Sts that it was conveyed to him that he would have seizures w/ or w/o meds and chooses to not take meds. 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 PE demos NV intact b/l UE and LE. No neuro deficits. Pt agrees to labs and rads. Declines any anti-seizure meds here in the ER. Sts that he feels fine. Sts that he does not wish to take. Will honor pts wishes as PE was benign and appears to ahve returned to base line. Pending results. 12:24 05/02/20. Witness patient lying peacefully in bed in NAD. Patient stable. Pending results. 12:40 05/02/20. Pt complaining of a tightness in his thigh. ? 2/2 seizure activitiy. Noted CK slighlty elevated. will tx iwth meds. Pt agrees to medicaitn. Pending final results. Reviewed results. discussed wiht attening. Penidng 2 labs, but are send out and iwll not get resutls. Pt not taking med. Enter room and patient lying peacefully in bed in NAD. Patient stable. Denies any new issues, concerns, or complaints. Discussed results with pt. Discussed tx plan with pt. Discussed and counseled on stable condition. Discussed importance of a f/u with PCP. Discussed return to ER criteria. Answered their questions. Indicates and verbalizes that they understand, agree, and will comply with above. Denies any new questions or concerns. Patient has capacity to understand. Discussed possibility to see neur olgoy and med management and pt indicates he understands, agree, and will consider. Discharge decision based on the following: patient's condition is stable; patient's exam is stable; social support is adequate; transportation is available; follow-up is available. Discussed of OTC Motrin and Tylenol to control inflammation and pain management. Informed to follow directions on bottle that are appropriate for age and/or weight. Discussed case with health care provider (Saqib). Disposition: Discharged home in good and improved condition. Condition: good and stable.CLINICAL IMPRESSION Generalized seizure of unknown cause, 9 Clinical Report - Physicians/Mid Levels [facility] Emergency Department [address] [place] [address] Phone #: ext- [phone] 05/02/2020 10:49 Patient: CAMILO BUTTS [facility]#: [id number] Sex: M : 1990 Age: 29yINSTRUCTIONS Take Tylenol (Acetaminophen) or Motrin (Ibuprofen) as needed for fever control. Take medication according to label instructions. No driving or operating machinery until released. No dietary restrictions. (Recommend to utilize OTC Motrin and Tylenol to control inflammation and pain management. Recommend to follow the instructions on the bottle and not to exceed.). Warnings: GENERAL WARNINGS: Return or contact your physician immediately if your condition worsens or changes unexpectedly, if not improving as expected, or if other problems arise. Follow-up: Return to the emergency department as needed. Follow up with your healthcare provider in about two days if not better. Call for an appointment. Understanding of the discharge instructions verbalized by patient. Follow-up with: [facility], , [id number], [address] [place], [address] Follow up. Call for the next available appointment. Reason for referral: evaluation and treatment.(Electronically signed by Francisco J Huggins P.A.-C 05/03/2020 10:57) Name Value Range Interpretation Code Description Data [facility](s) Supporting Document(s) ID Date Data Source [id number] 05/02/2020 12:52:00 PM EDT [facility] Name Value Range Interpretation Code Description Data [facility](s) Supporting Document(s) DRUG SCREEN URINE [facility] URINE DRUG SCREEN Amphetamine [Presence] in Urine by Screen method NEGATIVE NORMAL: N EGATIVE [facility] BARBITURATES NEGATIVE NORMAL: NEGATIVE [facility] BENZO NEGATIVE NORMAL: NEGATIVE [facility] COCAINE NEGATIVE NORMAL: NEGATIVE [facility] Tetrahydrocannabinol [Presence] in Urine NEGATIVE NORMAL: NEGATIVE [facility] OPIATES NEGATIVE NORMAL: NEGATIVE [facility] Phencyclidine [Presence] in Urine by Screen method NEGATIVE NOR MAL: NEGATIVE [facility] \\BLDo\\URINE DRUG SCR EEN INTERPRETATION\\BLDx\\ THE CUTOFFF LEVELS FOR DETECTION ARE FOLLOWS: AMPHETAMINES 1000 ng/ml BARBITUARATES 200 ng/ml BENZODIAZEPINES 100 ng/ml THC 50 ng/ml PHENCYCLIDINE 25 ng/ml OPIATES 300 ng/ml COCAINE 300 ng/ml ALL POSITIVES ARE CONSIDERED PRESUMPTIVE POSITIVE CONFIRMATION WILL BE PERFORMED AT PHYSICIAN REQUEST. ID Date Data Source [id number] 05/02/2020 12:52:00 PM EDT [facility] Name Value Range Interpretation Code Description Data Cecy rce(s) Supporting Document(s) [facility] URINALYSIS SOURCE R [facility] COLOR yellow NORMAL: Yellow [facility] CLARITY clear NORMAL: Clear [facility] Specific gravity of Urine by Test strip 1.020 1.001 - 1.030 [facility] pH 6 5 - [address] [facility] Glucose [Mass/volume] in Urine by Test strip NORM NORMAL: Negat [facility] Bilirubin.total [Presence] in Urine by Test strip NEG NORMAL: Negative [facility] Ketones [Presence] in Urine by Test strip NEG NORMAL: Negative [facility] Protein [Mass/volume] in Urine by Test strip 15 NORMAL: Negat [facility] Nitrite [Presence] in Urine by Test strip NEG NORMAL: Negative [facility] BLOOD NEG NORMAL: Negative [facility] Leukocyte esterase [Presence] in Urine by Test strip NEG [place] L: Negative [facility] Urobilinogen [Mass/volume] in Urine by Test strip NOR less alida n 1.0 mg/dL [facility] MICROSCOPIC See Below [facility] ital WBC 0 - 1 NORMAL: NONE SEEN [facility] Erythrocytes [#/volume] in Urine by Test strip 0 - 1 NORMAL: NON E SEEN [facility] EPITHELIAL FEW NORMAL: NONE SEEN [facility] Bacteria [Presence] in Urine sediment by Light microscopy Tr mela NORMAL: NONE SEEN [facility] ID Date Data Source [id number] 05/06/2020 06:25:00 AM EDT [facility] Name Value Range Interpretation Code Description Data Cecy rce(s) Supporting Document(s) Prolactin [Mass/volume] in Serum or Plasma 12.7 ng/mL 4.0-15.2 [facility] ID Date Data Source [id number] 05/05/2020 08:12:00 AM EDT [facility] Name Value Range Interpretation Code Description Data Cecy rce(s) Supporting Document(s) Valproate [Mass/volume] in Serum or Plasma <4 ug/mL 50-100 L [facility] Verified by repeat analysis Detection Limit = 4 <4 indicates None Detected Toxicity may occur at levels of 100-500. Measurements of free unbound valproic acid may improve the assess- ment of clinical response. ID Date Data Source [id number] 05/02/2020 11:44:00 AM EDT [facility] Name Value Range Interpretation Code Description Data Cecy rce(s) Supporting Document(s) SALICYLATE <0.3 mg/dL 2.0 - 20.0 L [facility] pital ID Date Data Source [id number] 05/02/2020 11:44:00 AM EDT [facility] Name Value Range Interpretation Code Description Data Cecy rce(s) Supporting Document(s) Creatine kinase [Enzymatic activity/volume] in Serum or Plasma 2 04 U/L 30 - 170 H [facility] ID Date Data Source [id number] 05/02/2020 11:44:00 AM EDT [facility] Name Value Range Interpretation Code Description Data Cecy rce(s) Supporting Document(s) COMPREHENSIVE METABOLIC PANEL [facility] COMPREHENSIVE METABOLIC PANEL Sodium [Moles/volume] in Serum or Plasma 138 mEq/L 134 - 153 [facility] Potassium [Moles/volume] in Serum or Plasma 3.9 mEq/L 3.6 - 5.0 [facility] Chloride [Moles/volume] in Serum or Plasma 105 mEq/L 98 - 107 [facility] Carbon dioxide, total [Moles/volume] in Serum or Plasma 21 MEQ/L 22 - 30 L [facility] Glucose [Mass/volume] in Serum or Plasma 112 MG/DL 65 - 110 H [facility] BUN 10 MG/DL 7 - 21 [facility] Creatinine [Mass/volume] in Serum or Plasma 0.6 MG/DL 0.7 - 1.5 L [facility] BUN/CREAT 17 8 - 27 [facility] Protein [Mass/volume] in Serum or Plasma 6.6 G/DL 6.3 - 8.2 [facility] Albumin [Mass/volume] in Serum or Plasma 4.4 G/DL 3.9 - 5.0 [facility] Globulin [Mass/volume] in Serum by calculation 2.2 GM/DL 2.4 - 3.2 L [facility] A/G RATIO 2.0 0.8 - 2.0 [facility] Calcium [Mass/volume] in Serum or Plasma 8.7 MG/DL 8.4 - 10.2 [facility] Bilirubin.total [Mass/volume] in Serum or Plasma <0.7 MG/DL 0.2 - 1.3 [facility] Alkaline phosphatase [Enzymatic activity/volume] in Serum or Plasma 112 U/L 38 - 126 [facility] Aspartate aminotransferase [Enzymatic activity/volume] in Serum or Plasma 25 U/L 5 - 40 [facility] Alanine aminotransferase [Enzymatic activity/volume] in Seru m or Plasma 28 U/L 7 - 56 [facility] Anion gap 3 in Serum or Plasma 12.0 mmol/L 8.0 - 16.0 [facility] AGE [address] [facility] al NON-AA GFR >60 mL/min [facility] ital AFR AMER GFR >60 mL/min [facility] spital Male GFR In terprentation 20-49 yrs >60 mL/min Normal 50-59 yrs >56 mL/min Normal 60-69 yrs >49 mL/min Normal 70-79yrs >42 mL/min Normal 80 and above >35 mL/min Normal Female GFR Interpretation 20-39 yrs >60 mL/min Normal 40-49 yrs >58 mL/min Normal 50-59 yrs >51 mL/min Normal 60-69 yrs >45 mL/min Normal 70-79 yrs >39 mL/min Normal 80 and above >32 mL/min Normal ID Date Data Source [id number] 05/02/2020 11:41:00 AM EDT [facility] Name Value Range Interpretation Code Description Data Cecy rce(s) Supporting Document(s) Acetaminophen [Presence] in Urine <5.0 UG/ML 0.0 - 30.0 [facility] ID Date Data Source [id number] 05/02/2020 11:40:00 AM EDT [facility] Name Value Range Interpretation Code Description Data Cecy rce(s) Supporting Document(s) CBC W/AUTOMATED DIFF [facility] COMPLETE BLOOD COUNT Leukocytes [#/volume] in Blood by Automated count 6.9 10^3/uL 4.2 - 1 1.0 [facility] Erythrocytes [#/volume] in Blood by Automated count 5.08 10^6/uL 4. 50 - 6.30 [facility] Hemoglobin [Mass/volume] in Blood 15.1 g/dL 14.0 - 16.0 [facility] Hematocrit [Volume Fraction] of Blood by Automated count 44.7 % 4 1.0 - 51.0 [facility] Erythrocyte mean corpuscular volume [Entitic volume] by Auto mated count 88.0 fL 80.0 - 94.0 [facility] Erythrocyte mean corpuscular hemoglobin [Entitic mass] by Automated count 29.7 pg 27.0 - 34.0 [facility] Erythrocyte mean corpuscular hemoglobin concentration [Mass/volume] by Automated count 33.8 g/dL 31.0 - 36.0 [facility] Erythrocyte distribution width [Ratio] by Automated count 12.4 % 11.5 - 14.8 [facility] Platelets [#/volume] in Blood by Automated count 255 10^3/uL 150 - 45 0 [facility] Platelet mean volume [Entitic volume] in Blood by Automated count 9.9 fL 7.4 - 10.4 [facility] Neutrophils/100 leukocytes in Blood by Automated count 74.4 % 37. 0 - 80.0 [facility] Lymphocytes/100 leukocytes in Blood by Manual count 14.6 % 25.0 - 40.0 L [facility] Monocytes/100 leukocytes in Blood by Automated count 7.5 % 3.0 - 8.0 [facility] Eosinophils/100 leukocytes in Blood by Automated count 1.9 % 0.0 - 7.0 [facility] Basophils/100 leukocytes in Blood by Automated count 0.6 % 0.0 - 2.0 [facility] %IG 1.0 % 0.0 - 0.0 H [facility] %NRBC 0.0 % 0.0 - 0.0 [facility] Neutrophils [#/volume] in Blood by Automated count 5.15 10^3/uL 2.00 - 6.90 [facility] Lymphocytes [#/volume] in Blood by Automated count 1.01 10^3/uL 0.60 - 3.40 [facility] Monocytes [#/volume] in Blood by Automated count 0.52 10^3/uL 0.00 - 0.90 [facility] Eosinophils [#/volume] in Blood by Automated count 0.13 10^3/uL 0.00 - 0.70 [facility] Basophils [#/volume] in Blood by Automated count 0.04 10^3/uL 0.00 - 0.20 [facility] #IG 0.07 10^3/uL 0.00 - 0.10 [facility] #NRBC 0.00 10^3/uL 0.00 - 0.00 [facility] MANUAL DIFF NOT INDICATED [facility] RBC MORPH NOT INDICATED [facility] spital ID Date Data Source [id number] 12/11/2019 07:07:00 PM EST [facility] 1 OrderSheet [facility] Emergency Department [address] [place] [address] Phone #: ext- [phone] 12/11/2019 19:05 Patient: CAMILO BUTTS Sex: M : 1990 Age: 29yWEIGHT:88.4 kg (M) HEIGHT:72 inches (S) BMI:26.5ALLERGIES: No Known Drug AllergyDIAGNOSIS: Sexually transmitted infectious diseaseLAB ORDERSOrder Description Priority Entered Acknowledged InitialedUrinalysis (Clean STAT 19:23 12/11/2019 19:25 Matthew Hernandez) Rupert GRUBBS;Chlamydia/GC STAT 19:23 12/11/2019 Ack'd: 19:25 19:29 Rupert Ross Tamra R.N. Jennifer R.N. PA;Syphilis 19:12/11/2019 Ack'd: 19:25 19:29 Rupert Ross Tamra R.N. Jennifer R.N. PA;HIV Panel STAT :12/11/2019 Ack'd: 19:25 19:29 Rupert Ross Tamra R.N. Jennifer R.N. PA;DIAGNOSTIC STUDY ORDERSOrder Description Priority Entered Acknowledged InitialedMEDICATION/IV/DRIP/FLUID ORDERSOrder Description Priority Entered Acknowledged InitialedGENERAL ORDERSOrder Description Priority Entered Acknowledged Initialed[Electronically signed by Lolis Hernandez R.N. (19:56 12/11/2019)][Electronically signed by Rupert Mccormack (21:47 12/11/2019)][Electronically locked by Lolis Hernandez R.N. (19:56 12/11/2019)] Name Value Range Interpretation Code Description Data Cecy rce(s) Supporting Document(s) ID Date Data Source [id number] 12/11/2019 07:07:00 PM EST [facility] 1 Medication Reconciliation Report [facility] Emergency Department [address] [place] [address] Phone #: ext- [phone] 12/11/2019 19:05 Patient: CAMILO BUTTS Sex: M : 1990 Age: 29yWeight: 88.4 kgHeight/Length: 72 in.BMI: 26.5ALLERGIES: No Known Drug AllergyThe patient's Home Medications are listed below:CONTINUE TAKING THE FOLLOWING MEDICATIONS: SEROquel Oral 300 mg, daily, at bedtimeThe source(s) of the original Home Medication information:patientThe following Medications were given to the patient in the Emergency Department:None.The following Medications were prescribed to the patient:None. Name Value Range Interpretation Code Description Data [facility](s) Supporting Document(s) ID Date Data Source [id number] 12/11/2019 07:07:00 PM [facility] 1 Medication Administration Record [facility] Emergency Department [address] [place] [address] Phone #: ext- [phone] 19:05 Patient: CAMILO BUTTS Sex: M : 1990 Age: 29yWeight: 88.4 kgHeight/Length: 72 inBMI: 26.5ALLERGIES: No Known Drug AllergyDate/Time Medication Administered Medication Ordered Name Value Range Interpretation Code Description Data [facility](s) Supporting Document(s) ID Date Data Source [id number] 12/11/2019 07:07:00 PM [facility] 1 General Instructions [facility] Emergency Department [address] [place] [address] Phone #: ext [phone] 12/11/2019 19:05 Patient: CAMILO BUTTS Sex: M : 1990 Age: 29yChlamydia; gonorrhea; syphilis; HIV with asymptomatic disease (STD Testing).INSTRUCTIONSYour Current Medications: Your current home medications have been reviewed.CONTINUE TAKING THE FOLLOWING MEDICATIONS:SEROquel Oral : 300 mg daily, at bedtime.Follow-up:Follow up with your doctor as needed. Reason for referral: evaluation and treatment. Summary of careprovided to patient.Understanding of the discharge instructions verbalized by patient. ADDITIONAL INFORMATIONTesting for Suspected STIYour symptoms suggest that you may have a sexually transmitted infection (STI). The most commonbacteria that cause STIs are chlamydia and gonorrhea. Both are highly contagious. They are passedby sexual contact with an infected partner.Symptoms start within 1 to 3 weeks after exposure. There is usually a discharge from the penis orvagina and burning during urination. Many women with one of these infections will have only mildsymptoms or no symptoms at all early in the disease.Tests have been done to show if you have an infection with chlamydia or gonorrhea. These infectionscan be treated and cured with antibiotic medicine.Home careDon't have sex until you know that your test result is negative.Call for the results of your tests. If the test is positive, contact your healthcare provider, local clinic, [facility] department to be treated, or return to our facility. You will be prescribed antibiotic medicine. Be sure to take all of the antibiotic as prescribed until it is gone or you are told to stop. Keep taking it even if you feel better. 2 General Instructions [facility] Emergency Department [address] [place] [address] Phone #: [phone]- [phone] 12/11/2019 19:05 Patient: CAMILO BUTTS Sex: M : 1990 Age: 29y Both you and your sexual partner or partners need to be treated, even if the partner has no symptoms. Don't have sex until both you and your partner or partners have finished all antibiotic medicine and you are told that you are no longer contagious.Learn about safe sex practices and use these in the future. The safest sex is with a partner who hastested negative for STIs and only has sex with you. Condoms can help prevent the spread ofgonorrhea and chlamydia, but are not a guarantee.Follow-up careFollow up with your healthcare provider, or as advised. Call as directed for the results of your test.This is to be sure the infection has cleared. Follow up with your provider or the public [facility] for complete STI screening, including HIV testing, and to consider ways to prevent HIV.For more information about STIs, call the CDC information line at 910-199-3068 or look at the [facility] HOSPITALwebsite online.When to seek medical adviceCall your healthcare provider if any of these occur: Fever of 100.4F (38.0C) or higher, or as directed New pain in your lower belly (abdomen) or back or pain that gets worse Unexpected vaginal bleeding Weakness, dizziness, or fainting Repeated vomiting Inability to urinate because of pain Rash or joint pain Painful open sores on the penis, or in or around the outer vagina or rectum Enlarged painful lumps (lymph nodes) in the groin Testicle p ain or scrotal swelling in men [id number] [employer]. [address] [place] [address]. All rights reserved. This information is not intended as asubstitute for professional medical care. Always follow your healthcare professional's instructions. You have been given the following additional information: Testing for Suspected STI 3 General Instructions [facility] Emergency Department [address] [place] [address] Phone #: ext- [phone] 12/11/2019 19:05 Patient: CAMILO BUTTS Sex: M : 1990 Age: 29y(Electronically signed by HUMERA Kan 12/11/2019 21:47) Name Value Range Interpretation Code Description Data Cecy rce(s) Supporting Document(s) ID Date Data Source [id number] 12/11/2019 07:07:00 PM EST [facility] 1 Clinical Report - Nurses [facility] Emergency Department [address] [place] [address] Phone #: [phone] 12/11/2019 19:05 Patient: CAMILO BUTTS Sex: M : 1990 Age: 29yTRIAGEArrived by private vehicle. Historian: patient. Accompanied by (Dropped off by Medicaid cab).Triage time: 19:05 12/11/2019. Acuity: LEVEL 5.Chief Complaint: (Requests STD testing).Alert.This started today. ( Pt states "i would like to make sure i don't have no diseases". Pt denies anysymptoms;). ( Pt very vague during triage/angry/aggressvie).Treatment TREATMENT COORDINATOR:None.SEPSIS SCREEN: NEGATIVE. Negative (no infection suspected/documented). (19:10 12/11/2019).--19:10 12/11/19 Kathryn Ross R.N.19:05 12/11/19. BP: 150/83. MAP: 105. HR: 81. RR: 18. O2 saturation: 98% on room air. Pain level now:0/10. --19:10 12/11/19 Kathryn Ross R.N.19:14 12/11/19. Temp: 98.8 F (oral). --19:15 12/11/19 Kathryn Ross R.N.Height/Length: 72 inches Per Patient. --19:05 12/11/19 Kathryn Ross R.N..Weight: 88.4 kg measured. BMI: 26.5. --19:05 12/11/19 Kathryn Ross R.N.MedicationsSEROquel Oral 300 mg, daily at bedtime. --19:07 12/11/19 Kathryn Ross R.N.AllergiesNo Known Drug Allergy. --19:07 12/11/19 Kathryn Ross R.N.PROBLEMS:Seizure. --19:08 12/11/19 Kathryn Ross R.N.Medication/allergy information source: the patient. --19:10 12/11/19 Kathryn Ross R.N.ADDITIONAL SURGERIES:Tumor removal/cranial surgery. --19:08 12/11/19 Kathryn Ross R.N.HistoryPAST MEDICAL HX: Immunizations: status is unknown.SOCIAL HX: Never smoker. No alcohol use or drug use. He was offered HIV testing, accepted and oral 2 Clinical Report - Nurses [facility] Department [address] [place] [address] Phone #: ext- [phone] 12/11/2019 19:05 Patient: CAMILO BUTTS Sex: M : 1990 Age: 29y consent was obtained unable to offer HIV testing due to the patient's condition. Patient education was provided. He was offered hepatitis C testing but declined. Patient education was provided. He has not traveled outside the [place] Infectious disease exposure: No infectious disease exposure. Patient is not a known carrier of tuberculosis, hepatitis, HIV, MRSA or VRE. Patient is not a known carrier of CRE. SELF HARM ASSESSMENT: Self harm assessment was performed. The patient answered "no" to the question(s) "Do you have thoughts of harming or killing yourself?". ABUSE ASSESSMENT: Abuse assessment. The patient had positive responses to the question(s) "Do you feel safe in your home?". Abuse denied. No suspicion of abuse. No report of abuse. NUTRITIONAL RISK ASSESSMENT: The nutritional risk assessment revealed no deficiencies. FUNCTIONAL ASSESSMENT: Functional assessment: no impairments noted. LEARNING NEEDS ASSESSMENT: The learning needs assessment revealed no barriers. FALL RISK ASSESSMENT: Fall risk assessment completed. No risk factors identified. SKIN INTEGRITY ASSESSMENT: Skin integrity risk assessment completed. No skin integrity risk identified. --19:10 12/11/19 Kathryn Ross R.N. Interventions Identification band on patient. --19:10 12/11/19 Kathryn Ross R.N.PHYSICAL ASSESSMENTAmbulatory to room.GENERAL / NEURO / PSYCH: The patient appears restless and agitated.HEENT: Mucous membranes are pink.RESPIRATORY: Respirations not labored.GI / : Normal genitalia. No genital lesions noted.SKIN: Skin is warm and dry. --:15 12/11/19 Kathryn Ross R.N.NURSING PROGRESS NOTESReassurance given. Three patient identifiers checked. Call light placed in reach. Side rails up x 2. Bedplaced in lowest position. Brakes of bed on. Patient ready for evaluation- PA notified. --:15 12/11/19Kathryn Ross R.N. Patient ID band checked for patient name and birthdate: patient confirmed. Instructions provided to collect clean catch urine and patient verbalized understanding. Clean catch urine collected; sample sent to lab for urinalysis. Specimen labeled in the presence of the patient. --19:29 12/11/19 Kathryn Ross R.N. The patient reports no complaints. --19:55 12/11/19 Lolis Hernandez R.N. 3 Clinical Report - Nurses [facility] Emergency Department [address] [place] [address] Phone #: ext- [phone] 12/11/2019 19:05 Patient: CAMILO BUTTS Sex: M : 1990 Age: 29yDISPOSITION / DISCHARGE Departure time: 19:56 12/11/2019. Condition at departure: stable. No learning barriers present. Reviewed warnings. Reviewed medication(s). Treatments reviewed. Reviewed referrals. Patient verbalized understanding. Written instructions provided in [place]. The patient was discharged by the physician assistant professor of biology. He was discharged home and unaccompanied at time of discharge. He left ambulatory and via taxi. 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 --19:56 12/11/19 Lolis Hernandez R.N. 19:55 12/11/19. BP: deferred. HR: deferred. RR: deferred. O2 saturation: deferred. Temp: deferred. --19:56 12/11/19 Lolis Hernandez R.N. 19:56 12/11/19. Pain level now: 0/10. --19:56 12/11/19 Lolis Hernandez R.N.Locked/Released at 12/11/2019 19:56 by Lolis Hernandez R.N. Name Value Range Interpretation Code Description Data Cecy rce(s) Supporting Document(s) ID Date Data Source [id number] 12/11/2019 07:07:00 PM EST [facility] 1 Clinical Report - Physicians/Mid Levels [facility] Emergency Department [address] [place] [address] Phone #: ext- [phone] 12/11/2019 19:05 Patient: CAMILO BUTTS Sex: M : 1990 Age: 29y Time Seen: 19:10 12/11/2019. Arrived- By private vehicle. Historian- patient.HISTORY OF PRESENT ILLNESS Chief Complaint: Pt would like STD testing. This started today and is still present. Not abrupt onset. At its maximum, severity described as 0 / 10. When seen in the E.D., severity described as 0 / 10. No loss of appetite, weight loss, headache, visual disturbance or fatigue. No muscle aches or weakness. Denies sleep problem. No decreased urine output. S imilar symptoms previously. Patient has had similar symptoms several times. Recent medical care: The patient was seen recently at another facility in the emergency department.REVIEW OF SYSTEMSNo fever, sore throat, sinus drainage, nasal congestion or cough. No difficulty breathing, chest pain,abdominal pain, nausea or vomiting. No diarrhea, black stools, bloody stools, chills or difficulty withurination. No skin rash, back pain, calf pain, headache or blackouts. No double vision. No difficulty withambulation.PAST HISTORYProblems:Seizure. Additional Surgeries: Tumor removal/cranial surgery. Medications: SEROquel Oral 300 mg, daily at bedtime. Allergies: No Known Drug Allergy.SOCIAL HISTORYNever smoker. No alcohol use or drug use.PHYSICAL EXAMVital Signs: 12/11/2019 19:05 BP: 150/83. MAP: 105. HR: 81. RR: 18. O2 saturation: 98% on room air.Pain level now: 0/10. Have been reviewed as normal. Oxygen saturation normal.Appearance: Alert. No acute distress.Eyes: Pupils equal, round and reactive to light. Eyes normal inspection.ENT: Ears normal. Nose normal. Pharynx normal.Neck: Normal inspection. 2 Clinical Report - Physicians/Mid Levels [facility] Emergency Department [address] [place] [address] Phone #: ext- [phone] 12/11/2019 19:05 Patient: CAMILO BUTTS Sex: M : 1990 Age: 29y CVS: Normal heart rate and rhythm. Respiratory: No respiratory distress. Abdomen: No visible injury. Back: Normal inspection. Skin: Skin warm and dry. Normal skin color. No rash. Normal skin turgor. Extremities: Extremities exhibit normal ROM. Neuro: Oriented X 3.LABS, X-RAYS, AND EKGLaboratory Tests: Laboratory tests have been ordered, with results revi ewed and considered in themedical decision making process. Urinalysis: (LULU: 12/11/2019 19:25) ( MsgRcvd 12/11/2019 19:34) Final results Test Result Flag Units (Reference) URINALYSIS URINALYSIS SOURCE R COLOR yellow (NORMAL: Yello CLARITY clear (NORMAL: Clear SPEC GRAVITY 1.010 (1.001 - 1.030 pH 6 (5 - 9) GLUCOSE NORM (NORMAL: Negat BILIRUBIN NEG (NORMAL: Negat KETONE NEG (NORMAL: Negat PROTEIN NEG (NORMAL: Negat NITRITE NEG (NORMAL: Negat BLOOD NEG (NORMAL: Negat LEUK EST NEG (NORMAL: Negat UROBILINOGEN NOR (less than 1.0 MICROSCOPIC Not Indicate.PROGRESS AND PROCEDURESCourse of Care: :Dec 11 2019. Evaluation after observation. (Pt is erratic and irrational, has nosymptoms, but demands STD testing. Seems like the path of least resistance to perform lab testing vs.physical altercation and law enforcement involvement.). Patient counseled in person regarding the patient's stable condition, diagnosis and need for follow-up. Patient agrees with plan of care. :Dec 11 2019. Disposition: Discharged home in good and improved condition (Dec 11 2019).CLINICAL IMPRESSION Chlamydia; gonorrhea; syphilis; HIV with asymptomatic disease (STD Testing).INSTRUCTIONS 3 Clinical Report - Physicians/Mid Levels [facility] Emergency Department [address] [place] [address] Phone #: ext- [phone] 12/11/2019 19:05 Patient: CAMILO BUTTS Sex: M : 1990 Age: 29y Your Current Medications: Your current home medications have been reviewed. CONTINUE TAKING THE FOLLOWING MEDICATIONS: SEROquel Oral : 300 mg daily, at bedtime. Follow-up: Follow up with your doctor as needed. Reason for referral: evaluation and treatment. Summary of care provided to patient. Understanding of the discharge instructions verbalized by patient.(Electronically signed by HUMERA Kan 12/11/2019 21:47) Name Value Range Interpretation Code Description Data Cecy rce(s) Supporting Document(s) ID Date Data Source [id number] 12/13/2019 08:10:00 AM EST [facility] Name Value Range Interpretation Code Description Data Cecy rce(s) Supporting Document(s) HIV 1+2 Ab+HIV1 p24 Ag [Presence] in Serum or Plasma b y Immunoassay Non Reactive Non Reactive [facility] ID Date Data Source [id number] 12/11/2019 08:51:00 PM [facility] Name Value Range Interpretation Code Description Data Cecy rce(s) Supporting Document(s) Treponema pallidum Ab [Presence] in Serum NON-REACTIVE NORMAL:NON MELBA CTIVE [facility] ID Date Data Source [id number] 12/14/2019 06:49:00 PM [facility] Name Value Range Interpretation Code Description Data Cecy rce(s) Supporting Document(s) Chlamydia trachomatis rRNA [Presence] in Unspecified specimen by Probe and target amplification method Negative Negative [facility] Neisseria gonorrhoeae rRNA [Presence] in Unspecified specimen by Probe and target amplification method Negative Negative [facility] ID Date Data Source [id number] 12/11/2019 07:34:00 PM [facility] Name Value Range Interpretation Code Description Data Cecy rce(s) Supporting Document(s) URINALYSIS [facility] akanksha URINALYSIS SOURCE R [facility] COLOR yellow NORMAL: Yellow [facility] ospital CLARITY clear NORMAL: Clear [facility] Specific gravity of Urine by Test strip 1.010 1.001 - 1.030 [facility] pH 6 5 - 9 [facility] Glucose [Mass/volume] in Urine by Test strip NORM NORMAL: Negat [facility] Bilirubin.total [Presence] in Urine by Test strip NEG NORMAL: Negative [facility] Ketones [Presence] in Urine by Test strip NEG NORMAL: Negative [facility] Protein [Mass/volume] in Urine by Test strip NEG NORMAL: Negat [facility] Nitrite [Presence] in Urine by Test strip NEG NORMAL: Negative [facility] BLOOD NEG NORMAL: Negative [facility] Leukocyte esterase [Presence] in Urine by Test strip NEG TRENTON L: Negative [facility] Urobilinogen [Mass/volume] in Urine by Test strip NOR less alida n 1.0 mg/dL [facility] MICROSCOPIC Not Indicate [facility] ID Date Data Source [id number] 11/07/2019 08:51:00 PM [facility] [address] [place] [address] RESPIRATORY CARE REPORT ==== ---------NAME------- NUMBER SEX AGE ADMIT DISC. XRAY# F/C JULIAN Navarro [id number] M 29 11/06/19 11/06/19 [id number] XBE E/R DATE OF : 1990 M/R# [id number] #: [id number] TR-07 LOCATION: [place] [id number] COMP LETE:11/07/19 03:07 [place] [id number] PHYSICIAN: SOLEDAD HUGGINS CH Name Value Range Interpretation Code Description Data Cecy rce(s) Supporting Document(s) ID Date Data Source [id number] 11/07/2019 04:06:00 [place] [address] PHONE: [phone] FAX: [phone] Name .................. : BENJAMÍN Navarro Acct Number.................. : [id number] ROOM. ................. : [facility] Number ................... : [id number] Stay type ............. : E/R Discharge Date......... ... : 11/06/19 Admit Date ......... : 11/06/19 Admit Phys .................... : SOLEDAD Turner Date of ....... : 1990 Family Phys ................... : NON STAFF Phone .................. : [phone] Age ................................ : 29 Film# .................. .:[id number] Sex ................................. : M Unsigned transcriptions are preliminary reports and do not represent a medical or legal document CHEST 2 VIEWS [id number] COMPLETE:11/06/19 14:30 KBO [id number] Reason(s): transient lightheadedness; resolved CHEST X-RAY: 2- VIEWS INDICATION: Transient lightheadedness, which has now resolved. FINDINGS: The cardiac and mediastinal silhouettes appear normal and the lungs are clear. The bones and soft tissues are normal. The upper abdomen is unremarkable. IMPRESSION: No acute disease identifiable. Electronically Reviewed and Signed By Kevin Ponce M.D. , 11/07/19 16:06, [facility] Transcribe Initials: FIORELLA , Transcribe Date: 11/06/19 18:06, Dictation Date: Copy for: PARVEEN GALLAGHER via fax Copy for: EMERGENCY DEPT via [facility] Copy for: 710 MED REC DISCHARGED Page 1 of 1 Name Value Range Interpretation Code Description Data Cecy rce(s) Supporting Document(s) ID Date Data Source [id number] 11/06/2019 10:57:00 AM EST [facility] 1 OrderSheet [facility] Emergency Department [address] [place] [address] Phone #: ext- [phone] 11/06/2019 10:53 Patient: CAMILO BUTTS Sex: M : 1990 Age: 29yWEIGHT:87.2 kg (M) HEIGHT:69 inches (E) BMI:28.4ALLERGIES: No Known Drug AllergyLAB ORDERSOrder Description Priority Entered Acknowledged InitialedCBC w Diff STAT 11:11/06/2019 11:28 [facility] Francisco J Huggins reports analyst, Cornelio ER P.A.-C; [id number] STAT 11:11/06/2019 11:28 [facility] Serjiokuldeep Huggins reports analyst, Cornelio ER P.A.-C; Yozk7Nnrysopaqx (Clean STAT 11:11/06/2019 11:28 [facility]) Francisco J Huggins reports analyst, Cornelio ER P.A.-C; [id number] Nasal A B STAT 11:11/06/2019 11:50 Zostevie, January Francisco J Huggins R.N. P.A.-C;HIV RNA Quant STAT 11:11/06/2019 11:43 [facility] Francisco J Huggins reports analyst, Cornelio ER P.A.-C; Tech1 NOTES: ER HIV lab; pt requests. Need waiver signedDIAGNOSTIC STUDY ORDERSOrder Description Priority Entered Acknowledged InitialedChest 2 View STAT 11:57 11/06/2019 12:01 ZostevieJanuary(Oxygen?(No)) Francisco J Huggins R.N. P.A.-C; Reason for Study: transient lightheadedness; resolvedMEDICATION/IV/DRIP/FLUID ORDERSOrder Description Priority Entered Acknowledged InitialedIV NS : Bolus 500 11:11/06/2019 Cancelled: Patient Refusal 11:50 Zoss,mL, then 125 mL/hr Francisco J Carrasquillo R.N. P.A.-C;GENERAL ORDERSOrder Description Priority Entered Acknowledged InitialedNPO 11:11/06/2019 11:33 Em, January Francisco J Huggins R.N. P.A.-C; 2 OrderSheet [facility] Emergency Department [address] [place] [address] Phone #: [phone] 11/06/2019 10:53 Patient: CAMILO BUTTS Sex: M : 1990 Age: 29ySaline Lock 11:22 11/06/2019 Cancelled: Patient Refusal 11:50 Francisco J Strickland R.N.;EKG 11:11/06/2019 Ack'd: 11:30 11:43 Ruthann Huggins [facility] reports analyst, reports analyst, Cronelio BENNETT P.A.-C; Cornelio BENNETT Tech1 Tech1[Electronically signed by Neida Strickland R.N. (:11/06/2019)][Electronically signed by Francisco J Huggins P.A.-C (01:11/07/2019)][Electronically locked by Neida Strickland R.N. (:11/06/2019)] Name Value Range Interpretation Code Description Data Cecy rce(s) Supporting Document(s) ID Date Data Source [id number] 11/06/2019 10:57:00 AM EST [facility] 1 Medication Reconciliation Report [facility] Emergency Department [address] [place] [address] Phone #: ext- [phone] 11/06/2019 10:53 Patient: CAMILO BUTTS Sex: M : 1990 Age: 29yWeight: 87.2 kgHeight/Length: 69 in.BMI: 28.4ALLERGIES: No Known Drug AllergyThe patient's Home Medications are listed below:THE FOLLOWING MEDICATIONS NEED TO BE RECONCILED: SEROquel OralThe source(s) of the original Home Medication information:Not obtained.The following Medications were given to the patient in the Emergency Department:None.The following Medications were prescribed to the patient:None. Name Value Range Interpretation Code Description Data [facility](s) Supporting Document(s) ID Date Data Source [id number] 11/06/2019 10:57:00 AM [facility] 1 Medication Administration Record [facility] Emergency Department [address] [place] [address] Phone #: ext- [phone] 10:53 Patient: CAMILO BUTTS Sex: M : 1990 Age: 29yWeight: 87.2 kgHeight/Length: 69 inBMI: 28.4ALLERGIES: No Known Drug AllergyDate/Time Medication Administered Medication Ordered Name Value Range Interpretation Code Description Data [facility](s) Supporting Document(s) ID Date Data Source [id number] 11/06/2019 10:57:00 AM [facility] 1 General Instructions [facility] Emergency Department [address] [place] [address] Phone #: ext- [phone] 11/06/2019 10:53 Patient: CAMILO BUTTS Sex: M : 1990 Age: 29y(Transient brief lightheadedness; resolved in ER.).INSTRUCTIONSNo dietary restrictions.(Recommend to utilize OTC Motrin and Tylenol to control inflammation and pain management.Recommend to follow the instructions on the bottle and not to exceed.In order to obtain the results tod ay, you will need to either f/u with your PCP or report to medical recordsas results are extremely sensitive and not released over the phone.).Warnings: GENERAL WARNINGS: Return or contact your physician immediately if your conditionworsens or changes unexpectedly, if not improving as expected, or if other problems arise.Follow-up:Return to the emergency department if not better. Follow up with your healthcare provider in about twodays if not better. Call for an appointment.Understanding of the discharge instructions verbalized by patient.(Electronically signed by Francisco J Huggins P.A.-C 11/07/2019 01:28) Name Value Range Interpretation Code Description Data Cecy rce(s) Supporting Document(s) ID Date Data Source [id number] 11/06/2019 10:57:00 AM EST [facility] 1 Clinical Report - Nurses [facility] Emergency Department [address] [place] [address] Phone #: [phone]- [phone] 11/06/2019 10:53 Patient: CAMILO BUTTS Sex: M : 1990 Age: 29yTRIAGEHistorian: patient.Triage time: 10:53 11/06/2019. Acuity: LEVEL 3.Chief Complaint: (lightheaded.).Alert. No acute distress.( pt c/o being lightheaded for past hour. denies n/v/d, denies head injury, denies etoh.).SEPSIS SCREEN: NEGATIVE. Negative (no infection suspected/documented). --10:57 11/06/19 Em, R.N.10:53 11/06/19. BP: 130/92. MAP: 104. HR: 80. RR: 17. O2 saturation: 98%. Temp: 97.1 F. Pain levelnow: 0/10. --10:57 11/06/19 Em Neida, R.N.Weight: 87.2 kg measured. Height/Length: 69 inches Estimated. BMI: 28.4. --10:52 11/06/19 EmJanuaryRBrittN.MedicationsSEROquel Oral. --10:54 11/06/19 Em, January RBrittN.AllergiesNo Known Drug Allergy. --10:54 11/06/19 Em, January RBrittN.PROBLEMS:Ocd.Paranoid schizophrenia.Tbi. --10:56 11/06/19 Em, Neida R.N.ADHD - Attention Deficit Hyperactivity Disorder. --11:20 11/06/19 Compa Logan.-CThe following entry was modified by Lucia Logan-C, 11:20 11/06/19ADHD - Attention Deficit Hyperactivity Disorder. --10:55 11/06/19 Em, Neida RBrittN..ADDITIONAL SURGERIES:Brain surgery (Removed tumors). --10:56 11/06/19 Em, January, RBrittN.HistorySOCIAL HX: Never smoker. No alcohol use or drug use. He was offered HIV testing, accepted andwritten consent was obtained. He has not traveled outside the [place]Infectious disease exposure: No infectious disease exposure. Patient is not a known carrier of tuberculosis,hepatitis, HIV, MRSA or VRE. Patient is not a known carrier of CRE. 2 Clinical Report - Nurses [facility] Emergency Department [address] [place] [address] Phone #: ext- [phone] 11/06/2019 10:53 Patient: CAMILO BUTTS Sex: M : 1990 Age: 29y SELF HARM ASSESSMENT: Self harm assessment was performed. The patient answered "no" to the question(s) "Have you recently felt down, depressed, or hopeless?", "Do you have thoughts of harming or killing yourself?", "Do you have a plan for harming or killing yourself?", "Have you recently had thoughts about harming or killing others?", "Do you have any dangerous items in your possession?", "Have you noticed less interest or pleasure in doing things?",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
--- OUTSIDE RECORDS SUMMARY | 2020-11-03 13:01 | CCD ---
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 [facility] Ketones [Presence] in Urine by Test strip NEG NORMAL: Negative [facility] Protein [Mass/volume] in Urine by Test strip NEG NORMAL: Negat [facility] Nitrite [Presence] in Urine by Test strip NEG NORMAL: Negative [facility] BLOOD NEG NORMAL: Negative [facility] Leukocyte esterase [Presence] in Urine by Test strip NEG [place] L: Negative [facility] Urobilinogen [Mass/volume] in Urine by Test strip NOR less alida n 1.0 mg/dL [facility] MICROSCOPIC Not Indicate [facility] ospital ID Date Data Source [id number] 09/06/2020 08:43:00 PM EST [facility] Name Value Range Interpretation Code Description Data Cecy rce(s) Supporting Document(s) COMPREHENSIVE METABOLIC PANEL [facility] COMPREHENSIVE METABOLIC PANEL Sodium [Moles/volume] in Serum or Plasma 138 mEq/L 134 - 153 [facility] Potassium [Moles/volume] in Serum or Plasma 4.0 mEq/L 3.6 - 5.0 [facility] Chloride [Moles/volume] in Serum or Plasma 103 mEq/L 98 - 107 [facility] Carbon dioxide, total [Moles/volume] in Serum or Plasma 26 MEQ/L 22 - 30 [facility] Glucose [Mass/volume] in Serum or Plasma 93 MG/DL 65 - 110 [facility] BUN 6 MG/DL 7 - 21 L [facility] Creatinine [Mass/volume] in Serum or Plasma 0.5 MG/DL 0.7 - 1.5 L [facility] BUN/CREAT 12 8 - 27 [facility] Protein [Mass/volume] in Serum or Plasma 7.0 G/DL 6.3 - 8.2 [facility] Albumin [Mass/volume] in Serum or Plasma 4.9 G/DL 3.9 - 5.0 [facility] Globulin [Mass/volume] in Serum by calculation 2.1 GM/DL 2.4 - 3.2 L [facility] A/G RATIO 2.3 0.8 - 2.0 H [facility] al Calcium [Mass/volume] in Serum or Plasma 10.0 MG/DL 8.4 - 10.2 [facility] Bilirubin.total [Mass/volume] in Serum or Plasma <0.7 MG/DL 0.2 - 1.3 [facility] Alkaline phosphatase [Enzymatic activity/volume] in Serum or Plasma 135 U/L 38 - 126 H [facility] Aspartate aminotransferase [Enzymatic activity/volume] in Serum or Plasma 24 U/L 5 - 40 [facility] Alanine aminotransferase [Enzymatic activity/volume] in Seru m or Plasma 28 U/L 7 - 56 [facility] Anion gap 3 in Serum or Plasma 9.0 mmol/L 8.0 - 16.0 [facility] AGE 29 yrs [facility] al NON-AA GFR >60 mL/min [facility] ital AFR AMER GFR >60 mL/min [facility] spital Male GFR In [...] >32 mL/min Normal ID Date Data Source [id number] 09/06/2020 08:43:00 PM [facility] Name Value Range Interpretation Code Description Data Cecy rce(s) Supporting Document(s) SALICYLATE <0.3 mg/dL 2.0 - 20.0 L [facility] p[facility] ID Date Data Source [id number] 09/06/2020 08:39:00 PM [facility] Name Value Range Interpretation Code Description Data Cecy rce(s) Supporting Document(s) Lipase [Enzymatic activity/volume] in Serum or Plasma 38 U/L 13 - 60 [facility] ID Date Data Source [id number] 09/06/2020 08:39:00 PM [facility] Name Value Range Interpretation Code Description Data Cecy rce(s) Supporting Document(s) Ethanol [Moles/volume] in Blood <10.0 MG/DL [facility] ALCOHOL % 0.01 % 0.00 - 0.01 [facility] ital *FOR MEDICAL PURPOSES ONLY * ID Date Data Source [id number] 09/06/2020 08:39:00 PM [facility] Name Value Range Interpretation Code Description Data Cecy rce(s) Supporting Document(s) Acetaminophen [Presence] in Urine <5.0 UG/ML 0.0 - 30.0 [facility] ID Date Data Source [id number] 09/06/2020 08:14:00 PM [facility] Name Value Range Interpretation Code Description Data Cecy rce(s) Supporting Document(s) CBC W/AUTOMATED DIFF [facility] COMPLETE BLOOD COUNT Leukocytes [#/volume] in Blood by Automated count 9.2 10^3/uL 4.2 - 1 1.0 [facility] Erythrocytes [#/volume] in Blood by Automated count 5.24 10^6/uL 4. 50 - 6.30 [facility] Hemoglobin [Mass/volume] in Blood 15.8 g/dL 14.0 - 16.0 [facility] Hematocrit [Volume Fraction] of Blood by Automated count 45.8 % 4 1.0 - 51.0 [facility] Erythrocyte mean corpuscular volume [Entitic volume] by Auto mated count 87.4 fL 80.0 - 94.0 [facility] Erythrocyte mean corpuscular hemoglobin [Entitic mass] by Automated count 30.2 pg 27.0 - 34.0 [facility] Erythrocyte mean corpuscular hemoglobin concentration [Mass/volume] by Automated count 34.5 g/dL 31.0 - 36.0 [facility] Erythrocyte distribution width [Ratio] by Automated count 12.7 % 11.5 - 14.8 [facility] Platelets [#/volume] in Blood by Automated count 318 10^3/uL 150 - 45 0 [facility] Platelet mean volume [Entitic volume] in Blood by Automated count 9.5 fL 7.4 - 10.4 [facility] Neutrophils/100 leukocytes in Blood by Automated count 63.9 % 37. 0 - 80.0 [facility] Lymphocytes/100 leukocytes in Blood by Manual count 26.6 % 25.0 - 40.0 [facility] Monocytes/100 leukocytes in Blood by Automated count 6.8 % 3.0 - 8.0 [facility] Eosinophils/100 leukocytes in Blood by Automated count 1.4 % 0.0 - 7.0 [facility] Basophils/100 leukocytes in Blood by Automated count 0.5 % 0.0 - 2.0 [facility] %IG 0.8 % 0.0 - 0.0 H [facility] al %NRBC 0.0 % 0.0 - 0.0 [facility] al Neutrophils [#/volume] in Blood by Automated count 5.90 10^3/uL 2.00 - 6.90 [facility] Lymphocytes [#/volume] in Blood by Automated count 2.46 10^3/uL 0.60 - 3.40 [facility] Monocytes [#/volume] in Blood by Automated count 0.63 10^3/uL 0.00 - 0.90 [facility] Eosinophils [#/volume] in Blood by Automated count 0.13 10^3/uL 0.00 - 0.70 [facility] Basophils [#/volume] in Blood by Automated count 0.05 10^3/uL 0.00 - 0.20 [facility] #IG 0.07 10^3/uL 0.00 - 0.10 [facility] ospital #NRBC 0.00 10^3/uL 0.00 - 0.00 [facility] MANUAL DIFF NOT INDICATED [facility] RBC MORPH NOT INDICATED [facility] spital ID Date Data Source [id number] 08/31/2020 09:29:00 AM EST [facility] [address] [place] [address] RESPIRATORY CARE REPORT ==== ---------NAME------- NUMBER SEX AGE ADMIT DISC. XRAY# F/C JULIAN Navarro [id number] M 29 08/29/20 08/29/20 [id number] XBE E/R DATE OF : 1990 M/R# [id number] #: [id number] TR-03 LOCATION: EMERGENCY DEPT EKG 74215 COMP LETE:08/29/20 01:26 [place] 74178 PHYSICIAN: ANTHONY GODINEZ Name Value Range Interpretation Code Description Data Cecy rce(s) Supporting Document(s) ID Date Data Source [id number] 08/29/2020 12:13:00 AM EST [facility] 1 OrderSheet [facility] Emergency Department [address] [place] [address] Phone #: ext- [phone] 08/29/2020 00:12 Patient: CAMILO BUTTS Sex: M : 1990 Age: 29yWEIGHT:82.8 kg (M) HEIGHT:70 inches (S) BMI:26.2ALLERGIES: No Known Drug AllergyCHIEF COMPLAINT: anxious, agitatedDIAGNOSIS: SchizophreniaLAB ORDERSOrder Description Priority Entered Acknowledged InitialedUrinalysis (Clean STAT 00:37 08/29/2020 Ack'd: 01:42 01:43 Matthew Barry) Carito William R.N. Physician; R.N. Reason for ordering with alerts: Benefits outweigh risks -- 00:37 08/29/2020 Prudencio FernandoUrine Drug Screen STAT 00:37 08/29/2020 A [...] outweigh risks -- 00:37 08/29/2020 2 OrderSheet [facility] Emergency Department [address] [place] [address] Phone #: ext- [phone] 08/29/2020 00:12 Patient: CAMILO BUTTS Sex: M [...] 08/29/2020 01:21 Prudencio Barry R.N. 3 OrderSheet [facility] Emergency Department [address] [place] [address] Phone #: ext- [phone] 08/29/2020 00:12 Patient: CAMILO BUTTS Sex: M [...] rce(s) Supporting Document(s) ID Date Data Source [id number] 08/29/2020 12:13:00 AM [place] [address] Medication Reconciliation Report [facility] Emergency Department [address] [place] [address] Phone #: ext- [phone] 08/29/2020 00:12 Patient: [...] rce(s) Supporting Document(s) ID Date Data Source [id number] 08/29/2020 12:13:00 AM [facility] 1 Medication Administration Record [facility] Emergency Department [address] [place] [address] Phone #: ext- [phone] 08/29/2020 00:12 Patient: [...] rce(s) Supporting Document(s) ID Date Data Source [id number] 08/29/2020 12:13:00 AM EST [facility] 1 General Instructions [facility] Emergency Department [address] [place] [address] Phone #: ext- [phone] 08/29/2020 00:12 Patient: [...] yourself at most times 2 General Instructions [facility] Emergency Department [address] [place] [address] Phone #: ext- [phone] 08/29/2020 00:12 Patient: CMAILO BUTTS Sex: M : 1990 Age: 29y [...] providers about all of the prescription medicines, nqzs-ebp-mabkvdo medicines, vitamins, and supplements you take. Certain [...] operates a toll-free ADA information line at: [phone] (Voice); or [phone] (TTY). They can help you locate a local office.Follow-up careFollow up with your healthcare provider, or as advised.Call [phone] if any of these occur: You have suicidal thoughts, a suicide plan, and the means to carry out the plan Trouble breathing 3 General Instructions [facility] Emergency Department [address] [place] [address] Phone #: ext- [phone] 08/29/2020 00:12 Patient: [...] who have expressed concern over your behavior [phone] [employer]. [address] [place] [address], [place] [address]. All rights reserved. This information is not intended as asubstitute for professional medical care. Always follow your healthcare professional's instructions. 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 --00:22 08/29/20 Carito Barry R.N.00:14 08/29/20. BP: [...] Barry R.N.PROBLEMS:Insomnia: Chronic. --00:20 08/29/20 Carito Barry R.N.Orange disorder.Lifestyle / Substance Problems.Bipolar Disorder.Anxiety Reaction.ADHD - Attention Deficit Hyperactivity Disorder.Neurological Disease.Tension-Type Headache.Seizure Disorder.Seizure.STD - Sexually Transmitted Disease.Tendonitis.Tbi. 2 Clinical Report - Nurses [facility] Emergency Department [address] [place] [address] Phone #: ext- [phone] 08/29/2020 00:12 Patient: CAMILO BUTTS [facility]#: [id number] Sex: M : 1990 Age: 29yObsessive Compulsive [...] integrity risk 3 Clinical Report - Nurses [facility] Emergency Department [address] [place] [address] Phone #: ext- [phone] 08/29/2020 00:12 Patient: [...] Patient verbalized understanding. Written instructions provided in [place]. The patient was discharged home. He left ambulatory and via taxi. 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 --03:44 08/29/20 Carito Barry R.N. 4 Clinical Report - Nurses [facility] Emergency Department [address] [place] [address] Phone #: ext- [phone] 08/29/2020 00:12 Patient: [...] rce(s) Supporting Document(s) ID Date Data Source [id number] 08/29/2020 12:13:00 AM EST [facility] 1 Clinical Report - Physicians/Mid Levels [facility] Emergency Department [address] [place] [address] Phone #: ext- [phone] 08/29/2020 00:12 Patient: [...] Abrasions 2 Clinical Report - Physicians/Mid Levels [facility] Emergency Department [address] [place] [address] Phone #: ext- [phone] 08/29/2020 00:12 Patient: CAMILO BUTTS Sex: M [...] ABD //T// PELV W/O ORAL W/O IV [facility] [address] [place] [address] ---------N RYANN--------- NUMBER SEX AGE ADMIT DISC. XRAY# F/C TYPE BENJAMÍN Navarro [id number] M 29 08/29/20 [id number] NA E/R DATE OF : 1990 M/R# [id number] PH#: [phone] TR-03 3 Clinical Report - Physicians/Mid Levels [facility] Emergency Department [address] [place] [address] Phone #: ext- [phone] 08/29/2020 00:12 Patient: CAMILO BUTTS Sex: M : 1990 Age: 29y LOCATION: EMERGENCY DEPT TRANSCRIBED: 08/29/20 2:[address] ABD //T// PELV W/[place] ORAL W/[place] [address] COMPLETED:08/29/20 2:18 RLB 47101 Reason(s): Trauma/Injury PHYSICIAN: ANTHONY GODINEZ = R [...] pathologyevident.IMPRESSION: 4 Clinical Report - Physicians/Mid Levels [facility] Emergency Department [address] [place] [address] Phone #: ext- [phone] 08/29/2020 00:12 Patient: CAMILO BUTTS Sex: M [...] Finalresults Exam CT ST NECK W/O CONTRAST [address] [place] [address] ---------NAME--------- NUMBER SEX AGE ADMIT DISC. XRAY# F/C TYPE MANTLE CAMILO D [id number] M 29 08/29/20 [id number] NA E/R DATE OF : 1990 M/R# [id number] #: [id number] TR-03 LOCATION: EMERGENCY DEPT TRANSCRIBED: 08/29/20 2:[address] NECK W/O CONTRAST 47823 COMPLETED:08/29/20 2:18 RLB 30271 Reason(s): Trauma/Injury PHYSICIAN: ANTHONY BR R A [...] gas. 5 Clinical Report - Physicians/Mid Levels [facility] Emergency Department [address] [place] [address] Phone #: ext- [phone] 08/29/2020 00:12 Patient: [...] Final results Exam CT THORAX W/[place] [address] ---------NAME--------- NUMBER SEX AGE ADMIT DISC. XRAY# F/C TYPE BENJAMÍN Navarro [id number] M 29 08/29/20 [id number] NA E/R DATE OF : 1990 M/R# [id number] #: [id number] TR-03 LOCATION: EMERGENCY DEPT TRANSCRIBED: 08/29/20 2:[address] THORAX W/O CONTRAST 74412 COMPLETED:08/29/20 2:18 RLB 92210 Reason(s): Trauma/Injury PHYSICIAN: ANTHONY BR R A [...] provided. 6 Clinical Report - Physicians/Mid Levels [facility] Emergency Department [address] [place] [address] Phone #: ext- [phone] 08/29/2020 00:12 [id number] Sex: M : 1990 Age: 29y Findings: [...] NEGAT 7 Clinical Report - Physicians/Mid Levels [facility] Emergency Department [address] [place] [address] Phone #: ext- [phone] 08/29/2020 00:12 Patient: [...] PRESUMPTIVE POSITIVE [facility]: (LULU: 08/29/2020 01:35) ( MsgRcvd 08/29/2020 02:03) [...] Male GFR Interprentation 20-49 yrs >60 mL/min Idotzs35-14 yrs >56 mL/min Normal 60-69 yrs >49 mL/min Normal 70-79yrs>42 mL/min Normal 80 and above >35 mL/min Normal Female GFRInterpretation 20-39 yrs >60 mL/min Normal 40-49 yrs >58 mL/minNormal 50-59 yrs >51 mL/min Normal 60-69 yrs >45 mL/min Mdcdhw29-54 yrs >39 mL/min Normal 80 and above [...] 8 C linical Report - Physicians/Mid Levels [facility] Emergency Department [address] [place] [address] Phone #: ext- [phone] 08/29/2020 00:12 Patient: [facility]ILO BUTTS [id number] Sex: M : 1990 Age: 29y MPV [...] NOT INDICATED Lipase: (LULU: 08/29/2020 01:35) ( [facility] 02:03) Final results Test Result Flag Units (Reference) LIPASE 37 U/L (13 - 60) Lactic Acid: (LULU: 08/29/2020 01:35) ( [facility] 08/29/2020 01:45) Final results Test Result Flag [...] tendencies.). 9 Clinical Report - Physicians/Mid Levels [facility] Emergency Department [address] [place] [address] Phone #: ext- [phone] 08/29/2020 00:12 Patient: [...] rce(s) Supporting Document(s) ID Date Data Source [id number] 08/29/2020 02:56:00 [place] [address] ---------NAME--------- NUMBER SEX AGE ADMIT DISC. XRAY# F/C TYPE BENJAMÍN Navarro [id number] M 29 08/29/20 [id number] NA E/R DATE OF : 1990 M/R# [id number] #: [id number] TR-03 LOCATION: EMERGENCY DEPT TRANSCRIBED: 08/29/20 2:[address] THORAX W/O CONTRAST 315[address] COMPLETED:08/29/20 2:18 RLB [id number] Reason(s): Trauma/Injury PHYSICIAN: ANTHONY GODINZE R A D I O L O [...] rce(s) Supporting Document(s) ID Date Data Source [id number] 08/29/2020 02:39:00 AM EST [place] [address] [facility] [place] [address] ---------NAME--------- NUMBER SEX AGE ADMIT DISC. XRAY# F/C TYPE MANTLE CAMILO D [id number] M 29 08/29/20 [id number] NA E/R DATE OF : 1990 M/R# [id number] #: [id number] TR-03 LOCATION: EMERGENCY DEPT TRANSCRIBED: 08/29/20 2:[address] ABD //T// PELV W/O ORAL W/[place] [address] COMPLETED:08/29/20 2:18 RLB 96381 Reason(s): Trauma/Injury PHYSICIAN: ANTHONY BR======== R A [...] rce(s) Supporting Document(s) ID Date Data Source [id number] 08/29/2020 02:37:00 AM EST [place] [address] [facility] [place] [address] ---------NAME--------- NUMBER SEX AGE ADMIT DISC. XRAY# F/C TYPE MANTLE CAMILO Navarro [id number] M 29 08/29/20 [id number] NA E/R DATE OF : 1990 M/R# [id number] #: [id number] TR-03 LOCATION: EMERGENCY DEPT TRANSCRIBED: 08/29/20 2:[address] NECK W/O CONTRAST 29534 COMPLETED:08/29/20 2:18 RLB 30296 Reason(s): Trauma/Injury PHYSICIAN: ANTHONY BR R A [...] rce(s) Supporting Document(s) ID Date Data Source [id number] 08/29/2020 02:02:00 AM [facility] Name Value Range Interpretation Code Description Data Cecy rce(s) Supporting Document(s) Lipase [Enzymatic activity/volume] in Serum or Plasma 37 U/L 13 - 60 [facility] ID Date Data Source [id number] 08/29/2020 02:02:00 AM [facility] Name Value Range Interpretation Code Description Data Cecy rce(s) Supporting Document(s) COMPREHENSIVE METABOLIC PANEL [facility] COMPREHENSIVE METABOLIC PANEL Sodium [Moles/volume] in Serum or Plasma 136 mEq/L 134 - 153 [facility] Potassium [Moles/volume] in Serum or Plasma 3.8 mEq/L 3.6 - 5.0 [facility] Chloride [Moles/volume] in Serum or Plasma 103 mEq/L 98 - 107 [facility] Carbon dioxide, total [Moles/volume] in Serum or Plasma 26 MEQ/L 22 - 30 [facility] Glucose [Mass/volume] in Serum or Plasma 106 MG/DL 65 - 110 [facility] BUN 14 MG/DL 7 - 21 [facility] Creat[facility] [Mass/volume] in Serum or Plasma 0.6 MG/DL 0.7 - 1.5 L [facility] BUN/CREAT 23 8 - 27 [facility] al Protein [Mass/volume] in Serum or Plasma 6.6 G/DL 6.3 - 8.2 [facility] Albumin [Mass/volume] in Serum or Plasma 4.3 G/DL 3.9 - 5.0 [facility] Globulin [Mass/volume] in Serum by calculation 2.3 GM/DL 2.4 - 3.2 L [facility] A/G RATIO 1.9 0.8 - 2.0 [facility] Calcium [Mass/volume] in Serum or Plasma 9.3 MG/DL 8.4 - 10.2 [facility] Bilirubin.total [Mass/volume] in Serum or Plasma 0.8 MG/DL 0.2 - 1.3 [facility] Alkaline phosphatase [Enzymatic activity/volume] in Serum or Plasma 108 U/L 38 - 126 [facility] Aspartate aminotransferase [Enzymatic activity/volume] in Serum or Plasma 17 U/L 5 - 40 [facility] Alanine aminotransferase [Enzymatic activity/volume] in Seru m or Plasma 18 U/L 7 - 56 [facility] Anion gap 3 in Serum or Plasma 7.0 mmol/L 8.0 - 16.0 L [facility] AGE 29 yrs [facility] al NON-AA GFR >60 mL/min [facility] ital AFR AMER GFR >60 mL/min [facility] Ho spital Male GFR In [...] >32 mL/min Normal ID Date Data Source [id number] 08/29/2020 01:45:00 AM EST [facility] Name Value Range Interpretation Code Description Data Cecy rce(s) Supporting Document(s) Lactate [Moles/volume] in Serum or Plasma 1.0 MMOL/L 0.2 - 2.2 [facility] ID Date Data Source [id number] 08/29/2020 01:42:00 AM EST [facility] Name Value Range Interpretation Code Description Data Cecy rce(s) Supporting Document(s) CBC W/AUTOMATED DIFF [facility] COMPLETE BLOOD COUNT Leukocytes [#/volume] in Blood by Automated count 8.4 10^3/uL 4.2 - 1 1.0 [facility] Erythrocytes [#/volume] in Blood by Automated count 4.97 10^6/uL 4. 50 - 6.30 [facility] Hemoglobin [Mass/volume] in Blood 15.1 g/dL 14.0 - 16.0 [facility] Hematocrit [Volume Fraction] of Blood by Automated count 43.8 % 4 1.0 - 51.0 [facility] Erythrocyte mean corpuscular volume [Entitic volume] by Auto mated count 88.1 fL 80.0 - 94.0 [facility] Erythrocyte mean corpuscular hemoglobin [Entitic mass] by Automated count 30.4 pg 27.0 - 34.0 [facility] Erythrocyte mean corpuscular hemoglobin concentration [Mass/volume] by Automated count 34.5 g/dL 31.0 - 36.0 [facility] Erythrocyte distribution width [Ratio] by Automated count 12.6 % 11.5 - 14.8 [facility] Platelets [#/volume] in Blood by Automated count 258 10^3/uL 150 - 45 0 [facility] Platelet mean volume [Entitic volume] in Blood by Automated count 9.9 fL 7.4 - 10.4 [facility] Neutrophils/100 leukocytes in Blood by Automated count 59.4 % 37. 0 - 80.0 [facility] Lymphocytes/100 leukocytes in Blood by Manual count 28.6 % 25.0 - 40.0 [facility] Monocytes/100 leukocytes in Blood by Automated count 8.9 % 3.0 - 8.0 H [facility] Eosinophils/100 leukocytes in Blood by Automated count 2.1 % 0.0 - 7.0 [facility] Basophils/100 leukocytes in Blood by Automated count 0.6 % 0.0 - 2.0 [facility] %IG 0.4 % 0.0 - 0.0 [facility] % 0.0 - 0.0 [facility] al Neutrophils [#/volume] in Blood by Automated count 4.99 10^3/uL 2.00 - 6.90 [facility] Lymphocytes [#/volume] in Blood by Automated count 2.40 10^3/uL 0.60 - 3.40 [facility] Monocytes [#/volume] in Blood by Automated count 0.75 10^3/uL 0.00 - 0.90 [facility] Eosinophils [#/volume] in Blood by Automated count 0.18 10^3/uL 0.00 - 0.70 [facility] Basophils [#/volume] in Blood by Automated count 0.05 10^3/uL 0.00 - 0.20 [facility] #IG 0.03 10^3/uL 0.00 - 0.10 [facility] ospital #NRBC 0.00 10^3/uL 0.00 - 0.00 [facility]ital MANUAL DIFF NOT INDICATED [facility] RBC MORPH NOT INDICATED [facility] spital ID Date Data Source [id number] 08/29/2020 01:40:00 AM EST [facility] Name Value Range Interpretation Code Description Data Cecy rce(s) Supporting Document(s) DRUG SCREEN URINE [facility] URINE DRUG SCREEN Amphetamine [Presence] in Urine by Screen method NEGATIVE NORMAL: N EGATIVE [facility] BARBITURATES NEGATIVE NORMAL: NEGATIVE [facility] BENZO NEGATIVE NORMAL: NEGATIVE [facility] COCAINE NEGATIVE NORMAL: NEGATIVE [facility] Tetrahydrocannabinol [Presence] in Urine NEGATIVE NORMAL: NEGATIVE [facility] OPIATES NEGATIVE NORMAL: NEGATIVE [facility] Phencyclidine [Presence] in Urine by Screen method NEGATIVE NOR MAL: NEGATIVE [facility] \\BLDo\\URINE DRUG SCR EEN INTERPRETATION\\BLDx\\ THE CUTOFFF LEVELS FOR DETECTION ARE FOLLOWS: AMPHETAMINES 1000 ng/ml BARBITUARATES 200 ng/ml BENZODIAZEPINES 100 ng/ml THC 50 ng/ml PHENCYCLIDINE 25 ng/ml OPIATES 300 ng/ml COCAINE 300 ng/ml ALL POSITIVES ARE CONSIDERED PRESUMPTIVE POSITIVE CONFIRMATION WILL BE PERFORMED AT PHYSICIAN REQUEST. ID Date Data Source [id number] 08/29/2020 01:25:00 AM EST [facility] Name Value Range Interpretation Code Description Data Cecy rce(s) Supporting Document(s) [facility] COL[facility] yellow NORMAL: Yellow [facility] CLARITY clear NORMAL: Clear [facility] Specific gravity of Urine by Test strip 1.010 1.001 - 1.030 [facility] pH 6.5 5 - 9 [facility] al Glucose [Mass/volume] in Urine by Test strip NORM NORMAL: Negat [facility] Bilirubin.total [Presence] in Urine by Test strip NEG NORMAL: Negative [facility] Ketones [Presence] in Urine by Test strip NEG NORMAL: Negative [facility] Protein [Mass/volume] in Urine by Test strip NEG NORMAL: Negat [facility] Nitrite [Presence] in Urine by Test strip NEG NORMAL: Negative [facility] BLOOD NEG NORMAL: Negative [facility] Leukocyte esterase [Presence] in Urine by Test strip NEG [place] L: Negative [facility] Urobilinogen [Mass/volume] in Urine by Test strip NOR less alida n 1.0 mg/dL [facility] MICROSCOPIC Not Indicate [facility]sp[facility] ID Date Data Source [id number] 08/19/2020 01:52:52 PM EDT [facility] Vital SignsBlood Pressure: 138/82 Patient History Medical History:Brain TumorSeizure DisorderDepressionHx of kidney stonesBipolarSurgical History:Partial lobectomyFamily History:No known family historySocial/Personal History: Smoking Status: current some day smokerDo you vape? NoCurrent Problems: Normal examination (ICD-V65.5) (WKT31-I24.1)Dental caries/Impaction of teeth (ICD-521.00) (HEC01-U42.9)Contact dermatitis and other eczema, unspecified cause (ICD-692.9) (BGO88-K57.9)Depression (ICD-311) (UXN44-K52.9)Seizure Disorder (ICD-780.39) (TJS27-B35.9)Brain Tumor (ICD-191.9) (XMU22-F62.9)Problem list reviewed during this update.Current Medications: SEROQUEL [...] PM): ; yany (Aug 20 2020 7:29AM): [facility](-). CC: none. Reviewed Xrays. Exam: caries detected. [...] Known Allergies (updated 08/19/2020) Orders:Oral Surgery Referral [[id number]] Clinical Visit Summary Declined Name Value Range Interpretation Code Description Data Cecy rce(s) Supporting Document(s) ID Date Data Source [id number] 08/14/2020 07:17:00 PM EDT [facility] 1 Medication Reconciliation Report [facility] Emergency Department [address] [place] [address] Phone #: ext- [phone] 08/14/2020 19:09 Patient: [...] rce(s) Supporting Document(s) ID Date Data Source [id number] 08/14/2020 07:17:00 PM EDT [place] [address] Medication Administration Record [facility] Emergency Department [address] [place] [address] Phone #: ext- [phone] 19:09 Patient: CAMILO BUTTS Sex: M : 1990 Age: 29yWeight: 81.6 kgHeight/Length: 72 inBMI: 24.4ALLERGIES: No Known Drug AllergyDate/Time Medication Administered Medication Ordered Name Value Range Interpretation Code Description Data Cecy rce(s) Supporting Document(s) ID Date Data Source [id number] 08/14/2020 07:17:00 PM EDT [facility] 1 General Instructions [facility] Emergency Department [address] [place] [address] Phone #: ext- [phone] 08/14/2020 19:09 Patient: CAMILO BUTTS Sex: M : 1990 Age: 29y Anxiety reaction. No hyperventilation.INSTRUCTIONS Warnings: GENERAL WARNINGS: Return or contact your physician immediately if your condition worsens or changes unexpectedly, if not improving as expected, or if other problems arise. Understanding of the discharge instructions verbalized by patient. Follow-up with: [facility], , , [address], [place], Critical access hospital Follow up in one week. Call for [...] may experience: Dry mouth 2 General Instructions [facility] Emergency Department [address] [place] [address] Phone #: ext- [phone] 08/14/2020 19:09 Patient: [...] Also, there are certain 3 General Instructions [facility] Emergency Department [address] [place] [address] Phone #: ext- [phone] 08/14/2020 19:09 [id number] Sex: M : 1990 Age: 29y techniques [...] andtemporary medicine to help you manage stress.Call [phone] [phone] if any of these happen: Trouble breathing [...] and mild pain reliever 4 General Instructions [facility] Emergency Department [address] [place] [address] Phone #: ext- [phone] 08/14/2020 19:09 Patient: CAMILO BUTTS Sex: M : 1990 Age: 29y [id number] [employer]. [address] [place] [address]. All rights reserved. This information is not intended as asubstitute for professional medical care. Always follow your healthcare professional's instructions. You have been given the following additional information: Anxiety Reaction(Electronically signed by Pedro Kim, 08/14/2020 20:15) Name Value Range Interpretation Code Description Data Cecy rce(s) Supporting Document(s) ID Date Data Source [id number] 08/14/2020 07:17:00 PM EDT [facility] 1 Clinical Report - Nurses [facility] Emergency Department [address] [place] [address] Phone #: ext- [phone] 08/14/2020 19:09 Patient: [...] no barriers. 2 Clinical Report - Nurses [facility] Emergency Department [address] [place] [address] Phone #: ext- [phone] 08/14/2020 19:09 Patient: CAMILO BUTTS Sex: M : 1990 Age: 29y FALL RISK ASSESSMENT: Fall risk assessment completed. No risk factors identified. SKIN INTEGRITY ASSESSMENT: Skin integrity risk assessment completed. No skin integrity risk identified. --19:30 08/14/20 Alfonso Buck R.N. FAMILY HX: No significant family medical history. --19:53 08/14/20 Pedro Kim.PHYSICAL [id number]:35 08/14/20. Ambulatory to room.GENERAL / NEURO / [...] Patient verbalized understanding. Written instructions provided in [place]. The patient was discharged home and unaccompanied at time of discharge. He left ambulatory and via taxi. 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 --20:04 08/14/20 Carito Barry R.N. 20:03 08/14/20. BP: 141/93. MAP: 109. HR: 81. RR: 16. O2 saturation: 98%. Temp: 97.9 F. Pain level now: 0/10. --20:04 08/14/20 Carito Barry R.N.Locked/Released at 08/14/2020 20:04 by Carito Barry R.N. Name Value Range Interpretation Code Description Data Cecy rce(s) Supporting Document(s) ID Date Data Source [id number] 08/14/2020 07:17:00 PM EDT [facility] 1 Clinical Report - Physicians/Mid Levels [facility] Emergency Department [address] [place] [address] Phone #: ext- [phone] 08/14/2020 19:09 Patient: [id number] Sex: M : 1990 Age: 29y Time [...] alone. 2 Clinical Report - Physicians/Mid Levels [facility] Emergency Department [address] [place] [address] Phone #: ext- [phone] 08/14/2020 19:09 Patient: [...] patient. 3 Clinical Report - Physicians/Mid Levels [facility] Emergency Department [address] [place] [address] Phone #: ext- [phone] 08/14/2020 19:09 Patient: CAMILO BUTTS Sex: M : 1990 Age: 29y Follow-up with: [facility], , , [address] [place], [address] Follow up in one week. Call for an appointment.(Electronically signed by Pedro Kim, 08/14/2020 20:15) Name Value Range Interpretation Code Description Data Cecy rce(s) Supporting Document(s) ID Date Data Source [id number] 05/04/2020 10:53:00 AM EDT [facility] [address] [place] [address] PHONE: [phone] FAX: [phone] Name .................. : BENJAMÍN Navarro Acct Number.................. : [id number] ROOM. ................. : TR-07 MR Number ................... : [id number] Stay type ............. : E/R Discharge Date......... ... : Admit Date ......... : 05/02/20 Admit Phys .................... : SAQIB PA Date of ....... : 1990 Family Phys ................... : NON STAFF Phone .................. : [phone] Age ................................ : 29 Film# .................. .:[id number] Sex ................................. : M Unsigned transcriptions are preliminary reports and do not represent a medical or legal document CT HEAD W/O CONTRAST [id number] COMPLETE:05/02/20 11:52 KBO 24884 Reason(s): Head Pain CT OF THE HEAD [...] via fax Copy for: EMERGENCY DEPT via [employer] Copy for: 710 MED REC DISCHARGED Page 1 of 1 Name Value Range Interpretation Code Description Data Cecy rce(s) Supporting Document(s) ID Date Data Source [id number] 05/04/2020 10:53:00 AM EDT [facility] [address] [place] [address] PHONE: [phone] FAX: [phone] Name .................. : BENJAMÍN Navarro Acct Number.................. : [id number] ROOM. ................. : TR-07 MR Number ................... : [id number] Stay type ............. : E/R Discharge Date......... ... : Admit Date ......... : 05/02/20 Admit Phys .................... : SAQIB PA Date of ....... : 1990 Family Phys ................... : NON STAFF Phone .................. : [phone] Age ................................ : 29 Film# .................. .:[id number] Sex ................................. : M Unsigned transcriptions are preliminary reports and do not represent a medical or legal document CHEST PORTABLE [id number] COMPLETE:05/02/20 11:52 KBO 84913 Reason(s): seizure PORTABLE CHEST X-RAY: COMPARISON: 11/06/19 [...] rce(s) Supporting Document(s) ID Date Data Source [id number] 05/03/2020 01:07:00 [place] [address] RESPIRATORY CARE REPORT ==== ---------NAME------- NUMBER SEX AGE ADMIT DISC. XRAY# F/C TYPEBENJAMÍN Navarro [id number] M 29 05/02/20 05/02/20 [id number] XBE E/R DATE OF : 1990 M/R# [id number] #: [id number] TR-07 LOCATION: EMERGENCY DEPT EKG 09227 COMPLE TE:05/02/20 14:[place] [address] PHYSICIAN: SAQIB HUGGINS CH Name Value Range Interpretation Code Description Data Cecy rce(s) Supporting Document(s) ID Date Data Source [id number] 05/02/2020 10:49:00 AM EDT [facility] 1 OrderSheet [facility] Emergency Department [address] [place] [address] Phone #: ext- [phone] 05/02/2020 10:49 Patient: [...] STAT 11:06 05/02/2020 11:14 Freddy 2 OrderSheet [facility] Emergency Department [address] [place] [address] Phone #: ext- [phone] 05/02/2020 10:49 Patient: [...] 05/02/2020 11:14 JanineyMonitor Francisco J Blanchard RN P.A.-C;B[employer]le [employer] Inspector 11:11 05/02/2020 11:14 Freddy(continuous) Francisco J Blanchard RN P.A.-C;NPO 11:11 05/02/2020 11:14 Freddy 3 OrderSheet [facility] Emergency Department [address] [place] [address] Phone #: ext- [phone] 05/02/2020 10:49 Patient: CAMILO BUTTS Sex: M [...] rce(s) Supporting Document(s) ID Date Data Source [id number] 05/02/2020 10:49:00 AM EDT [facility] 1 Medication Reconciliation Report [facility] Emergency Department [address] [place] [address] Phone #: ext- [phone] 05/02/2020 10:49 Patient: [...] rce(s) Supporting Document(s) ID Date Data Source [id number] 05/02/2020 10:49:00 AM EDT [facility] 1 Medication Administration Record [facility] Emergency Department [address] [place] [address] Phone #: ext- [phone] 05/02/2020 10:49 Patient: [...] rce(s) Supporting Document(s) ID Date Data Source [id number] 05/02/2020 10:49:00 AM EDT [facility] 1 General Instructions [facility] Emergency Department [address] [place] [address] Phone #: [phone] kfr- [phone] 05/02/2020 10:49 Patient: [facility] BUTTS [id number] Sex: M : 1990 Age: 29yGeneralized seizure [...] discharge instructions verbalized by patient.Follow-up with: [facility], , [id number], [facility] [place], [address] Follow up. Call for the next available [...] change to another medicine. 2 General Instructions [facility] Emergency Department [address] [place] [address] Phone #: ext- [phone] 05/02/2020 10:49 Patient: [...] and/or another type of 3 General Instructions [facility] Emergency Department [address] [place] [address] Phone #: ext- [phone] 05/02/2020 10:49 Patient: [...] Headache that gets worse 4 General Instructions [facility] Emergency Department [address] [place] [address] Phone #: ext- [phone] 05/02/2020 10:49 Patient: CAMILO BUTTS Sex: M : 1990 Age: 29y [id number] [employer]. [address] [place], [place] [address]. All rights reserved. This information is not intended as asubstitute for professional medical care. Always follow your healthcare professional's instructions. You have been given the following additional information: Seizure, Recurrent (Adult) No driving or operating machinery until released.(Electronically signed by Francisco J Huggins P.A.-C 05/03/2020 10:57) Name Value Range Interpretation Code Description Data Cecy rce(s) Supporting Document(s) ID Date Data Source [id number] 05/02/2020 10:49:00 AM EDT [facility] 1 Clinical Report - Nurses [facility] Emergency Department [address] [place] [address] Phone #: ext- [phone] 05/02/2020 10:49 Patient: CAMILO BUTTS Sex: M [...] trauma. 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 Sepsis Screen negative. [...] Known Drug Allergy. --10:56 05/02/20 Freddy Blanchard RN.Fittsyi36:59 05/02/20.PAST MEDICAL HX: Seizures. No history of [...] no deficiencies. 2 Clinical Report - Nurses [facility] Emergency Department [address] [place] [address] Phone #: ext- [phone] 05/02/2020 10:49 Patient: [...] patient. To room. --10:05/02/20 Freddy Blanchard RN.PHYSICAL [id number]:05/02/20. To room via stretcher.GENERAL / NEURO / [...] 11:05/02/20. Cardiac rhythm: normal sinus rhythm; (1050). traffic monitor specialist, NIBP monitor and pulse oximeter placed on patient; traffic monitor specialist- Lead II; monitor alarms on; monitor strip [...] at 75 3 Clinical Report - Nurses [facility] Emergency Department [address] [place] [address] Phone #: ext- [phone] 05/02/2020 10:49 Patient: CAMILO BUTTS A cct#: [id number] Sex: M : 1990 Age: 29ymL/hr over 5 hour(s) via site #1 via IV pump. Allergies verified and confirmed 5 rights. IV patencyestablished. IV site checked: no pain, redness, or swelling. IV flushed thoroughly pre- and post-medicationadministration. Information reviewed with patient. --11:43 05/02/20 Freddy Blanchard RNChecked patient name and birthdate. Blood samples drawn by tech. (7272). Finger stick glucose: 1140accu check 101. Portable chest x-ray completed. Shown to the PA (1120). Patient transported to [facility] with nurse and injection maintenance technician. (1130). Patient returned from CT by stretcher [...] Specimen labeled in the presenceof the patient (7638). --12:34 05/02/20 Freddy Blanchard RN12:44 05/02/2020 Tylenol [...] Blanchard RN 4 Clinical Report - Nurses [facility] Emergency Department [address] [place] [address] Phone #: ext- [phone] 05/02/2020 10:49 Patient: CAMILO BUTTS Sex: M : 1990 Age: 29y 13:34 05/02/2020 Tylenol PO Response: pain is improving. Symptoms have improved the patient feels better. Physician tutoring assistant notified. --13:34 05/02/20 Freddy Blanchard RN 13:34 05/02/2020 Ativan PO Response: pain is improving. Symptoms have improved the patient feels better. Physician tutoring assistant notified. --13:34 05/02/20 Freddy Blanchard RN 13:00 [...] parent verbalized understanding. Written instructions provided in [place]. The patient was discharged by the physician tutoring assistant. He was discharged home and accompanied by parent. He left ambulatory and via private vehicle. Parent driving. --13:57 05/02/20 Freddy Blanchard RN 13:45 05/02/2020 Site #1 removed upon discharge. Catheter intact. Bandaid applied. --13:58 05/02/20 Freddy Blanchard RN.Locked/Released at 05/02/2020 16:59 by Freddy Blanchard RN Name Value Range Interpretation Code Description Data Cecy rce(s) Supporting Document(s) ID Date Data Source [id number] 05/02/2020 10:49:00 AM EDT [facility] 1 Clinical Report - Physicians/Mid Levels [facility] Emergency Department [address] [place] [address] Phone #: ext- [phone] 05/02/2020 10:49 Patient: CAMILO BUTTS Sex: M [...] tumor. See old chart. Problems: Insomnia [Chronic]. Orange disorder. Lifestyle / Substance Problems. Neurological Disease. Bipolar Disorder. Obsessive Compulsive Disorder. ADHD - Attention Deficit Hyperactivity Disorder. Seizure. Tendonitis. STD - Sexually Transmitted Disease. 2 Clinical Report - Physicians/Mid Levels [facility] Emergency Department [address] [place] [address] Phone #: ext- [phone] 05/02/2020 10:49 Patient: CAMILO BUTTS Sex: M [...] posterior tibial 2+. 3 Clinical Report - Physicians/[facility] Emergency Department [address] [place] [address] Phone #: ext- [phone] 05/02/2020 10:49 Patient: [...] O2? Oxygen?(No) Room: ED Exam CHEST PORTABLE [facility] [address] [place] [address] PHONE: [phone] FAX: [phone] Name .................. : BENJAMÍN Navarro Acct Number.................. : [id number] ROOM. ................. : TR-07 MR Number ................... : [id number] Stay type ............. : E/R Discharge Date......... ... : Admit Date ......... : 05/02/20 Admit Phys .................... : SAQIB GRUBBS Date of ....... : 1990 Family Phys ................... : NON STAFF Phone .................. : [phone] Age ................................ : 29 Film# .................. .:[id number] Sex ................................. : M Unsigned transcriptions are preliminary reports and do not represent a medical or legal document CHEST PORTABLE [id number] COMPLETE:05/02/20 11:52 KBO 60573 Reason(s): seizure 4 Clinical Report - Physicians/Mid Levels [facility] Emergency Department [address] [place] [address] Phone #: ext- [phone] 05/02/2020 10:49 Patient: [...] NEGAT 5 Clinical Report - Physicians/Mid Levels [facility] Emergency Department [address] [place] [address] Phone #: ext- [phone] 05/02/2020 10:49 Patient: [...] PRESUMPTIVE POSITIVE CONFIRMATION WILL BE PERFORMED AT [facility].CMP: (LULU: 05/02/2020 11:13) ( MsgRcvd 05/02/2020 11:44) [...] Male GFR Interprentation 20-49 yrs >60 mL/min Anbnqg79-31 yrs >56 mL/min Normal 60-69 yrs >49 mL/min Normal 70-79yrs>42 mL/min Normal 80 and above >35 mL/min Normal Female GFRInterpretation 20-39 yrs >60 mL/min Normal 40-49 yrs >58 mL/minNormal 50-59 yrs >51 mL/min Normal 60-69 yrs >45 mL/min Ilylsm89-23 yrs >39 mL/min Normal 80 and above [...] 34.0) 6 Clinical Report - Physicians/Mid Levels [facility] Emergency Department [address] [place] [address] Phone #: ext- [phone] 05/02/2020 10:49 Patient: [...] MORPH NOT INDICATEDCPK: (LULU: 05/02/2020 11:13) ( [facility] 05/02/2020 11:44) Final results Test Result Flag Units (Reference) CPK 204 H U/L (30 - 170)Acetaminophen Level: (LULU: 05/02/2020 11:13) ( [facility] 05/02/2020 11:41) Final results Test Result Flag Units (Reference) ACETAMINOPHEN <5.0 UG/ML (0.0 - 30.0)Salicylate Level: (LULU: 05/02/2020 11:13) ( [facility] 05/02/2020 11:44) Final results Test Result Flag Units (Reference) SALICYLATE <0.3 L mg/dL (2.0 - 20.0)CT Head W/O Cont: (LULU: 05/02/2020 11:06) ( [facility] 05/02/2020 12:26) In ProgressCT HEAD W/O CONTRASTReason(s): Head PainTRANSPORTATION: WC IV? O2? Oxygen?(No) Room: ED CMTS: Seizure Exam CT HEAD [place] [address] PHONE: [phone] FAX: [phone] Name .................. : BENJAMÍN Navarro Acct Number.................. : [id number] ROOM. ................. : TR-07 MR Number ................... : [id number] Stay type ............. : E/R Discharge Date......... ... : Admit Date ......... : 05/02/20 Admit Phys .................... : SAQIB GRUBBS Date of ....... : 1990 Family Phys ................... : NON STAFF Phone .................. : [phone] Age ................................ : 29 Film# .................. .:[id number] Sex ................................. : M Unsigned transcriptions are preliminary reports and do not represent a medical or legal document CT HEAD W/O CONTRAST [id number] COMPLETE:05/02/20 11:52 KBO 80109 Reason(s): Head Pain 7 Clinical Report - Physicians/Mid Levels [facility] Emergency Department [address] [place] [address] Phone #: ext- [phone] 05/02/2020 10:49 Patient: [...] a 8 Clinical Report - Physicians/Mid Levels [facility] Emergency Department [address] [place] [address] Phone #: ext- [phone] 05/02/2020 10:49 Patient: [...] cause, 9 Clinical Report - Physicians/Mid Levels [facility] Emergency Department [address] [place] [address] Phone #: ext- [phone] 05/02/2020 10:49 Patient: CAMILO BUTTS [facility]#: [id number] Sex: M : 1990 Age: 29yINSTRUCTIONS Take [...] instructions verbalized by patient. Follow-up with: [facility], , [id number], [address] [place], [address] Follow up. Call for the next available appointment. Reason for referral: evaluation and treatment.(Electronically signed by Francisco J Huggins P.A.-C 05/03/2020 10:57) Name Value Range Interpretation Code Description Data [facility](s) Supporting Document(s) ID Date Data Source [id number] 05/02/2020 12:52:00 PM EDT [facility] Name Value Range Interpretation Code Description Data [facility](s) Supporting Document(s) DRUG SCREEN URINE [facility] URINE DRUG SCREEN Amphetamine [Presence] in Urine by Screen method NEGATIVE NORMAL: N EGATIVE [facility] BARBITURATES NEGATIVE NORMAL: NEGATIVE [facility] BENZO NEGATIVE NORMAL: NEGATIVE [facility] COCAINE NEGATIVE NORMAL: NEGATIVE [facility] Tetrahydrocannabinol [Presence] in Urine NEGATIVE NORMAL: NEGATIVE [facility] OPIATES NEGATIVE NORMAL: NEGATIVE [facility] Phencyclidine [Presence] in Urine by Screen method NEGATIVE NOR MAL: NEGATIVE [facility] \\BLDo\\URINE DRUG SCR EEN INTERPRETATION\\BLDx\\ THE CUTOFFF LEVELS FOR DETECTION ARE FOLLOWS: AMPHETAMINES 1000 ng/ml BARBITUARATES 200 ng/ml BENZODIAZEPINES 100 ng/ml THC 50 ng/ml PHENCYCLIDINE 25 ng/ml OPIATES 300 ng/ml COCAINE 300 ng/ml ALL POSITIVES ARE CONSIDERED PRESUMPTIVE POSITIVE CONFIRMATION WILL BE PERFORMED AT PHYSICIAN REQUEST. ID Date Data Source [id number] 05/02/2020 12:52:00 PM EDT [facility] Name Value Range Interpretation Code Description Data Cecy rce(s) Supporting Document(s) [facility] S[facility] R [facility] al COLOR yellow NORMAL: Yellow [facility] CLARITY clear NORMAL: Clear [facility] Specific gravity of Urine by Test strip 1.020 1.001 - 1.030 [facility] pH 6 5 - 9 [facility] al Glucose [Mass/volume] in Urine by Test strip NORM NORMAL: Negat [facility] Bilirubin.total [Presence] in Urine by Test strip NEG NORMAL: Negative [facility] Ketones [Presence] in Urine by Test strip NEG NORMAL: Negative [facility] Protein [Mass/volume] in Urine by Test strip 15 NORMAL: Negat [facility] Nitrite [Presence] in Urine by Test strip NEG NORMAL: Negative [facility] BLOOD NEG NORMAL: Negative [facility] Leukocyte esterase [Presence] in Urine by Test strip NEG TR[place]ON L: Negative [facility] Urobilinogen [Mass/volume] in Urine by Test strip NOR less alida n 1.0 mg/dL [facility] MICROSCOPIC See Below [facility] ital WBC 0 - 1 NORMAL: NONE SEEN [facility] Erythrocytes [#/volume] in Urine by Test strip 0 - 1 NORMAL: NON E SEEN [facility] EPITHELIAL FEW NORMAL: NONE SEEN [facility] Bacteria [Presence] in Urine sediment by Light microscopy Tr mela NORMAL: NONE SEEN [facility] ID Date Data Source [id number] 05/06/2020 06:25:00 AM EDT [facility] Name Value Range Interpretation Code Description Data Cecy rce(s) Supporting Document(s) Prolactin [Mass/volume] in Serum or Plasma 12.7 ng/mL 4.0-15.2 [facility] ID Date Data Source [id number] 05/05/2020 08:12:00 AM EDT [facility] Name Value Range Interpretation Code Description Data Cecy rce(s) Supporting Document(s) Valproate [Mass/volume] in Serum or Plasma <4 ug/mL 50-100 L [facility] Verified by repeat analysis Detection Limit = 4 <4 indicates None Detected Toxicity may occur at levels of 100-500. Measurements of free unbound valproic acid may improve the assess- ment of clinical response. ID Date Data Source [id number] 05/02/2020 11:44:00 AM EDT [facility] Name Value Range Interpretation Code Description Data Cecy rce(s) Supporting Document(s) SALICYLATE <0.3 mg/dL 2.0 - 20.0 L [facility] pital ID Date Data Source [id number] 05/02/2020 11:44:00 AM EDT [facility] Name Value Range Interpretation Code Description Data Cecy rce(s) Supporting Document(s) Creatine kinase [Enzymatic activity/volume] in Serum or Plasma 2 04 U/L 30 - 170 H [facility] ID Date Data Source [id number] 05/02/2020 11:44:00 AM EDT [facility] Name Value Range Interpretation Code Description Data Cecy rce(s) Supporting Document(s) COMPREHENSIVE METABOLIC PANEL [facility] COMPREHENSIVE METABOLIC PANEL Sodium [Moles/volume] in Serum or Plasma 138 mEq/L 134 - 153 [facility] Potassium [Moles/volume] in Serum or Plasma 3.9 mEq/L 3.6 - 5.0 [facility] Chloride [Moles/volume] in Serum or Plasma 105 mEq/L 98 - 107 [facility] Carbon dioxide, total [Moles/volume] in Serum or Plasma 21 MEQ/L 22 - 30 L [facility] Glucose [Mass/volume] in Serum or Plasma 112 MG/DL 65 - 110 H [facility] BUN 10 MG/DL 7 - 21 [facility] Creatinine [Mass/volume] in Serum or Plasma 0.6 MG/DL 0.7 - 1.5 L [facility] BUN/CREAT 17 8 - 27 [facility] al Protein [Mass/volume] in Serum or Plasma 6.6 G/DL 6.3 - 8.2 [facility] Albumin [Mass/volume] in Serum or Plasma 4.4 G/DL 3.9 - 5.0 [facility] Globulin [Mass/volume] in Serum by calculation 2.2 GM/DL 2.4 - 3.2 L [facility] A/G RATIO 2.0 0.8 - 2.0 [facility] Calcium [Mass/volume] in Serum or Plasma 8.7 MG/DL 8.4 - 10.2 [facility] Bilirubin.total [Mass/volume] in Serum or Plasma <0.7 MG/DL 0.2 - 1.3 [facility] Alkaline phosphatase [Enzymatic activity/volume] in Serum or Plasma 112 U/L 38 - 126 [facility] Aspartate aminotransferase [Enzymatic activity/volume] in Serum or Plasma 25 U/L 5 - 40 [facility] Alanine aminotransferase [Enzymatic activity/volume] in Seru m or Plasma 28 U/L 7 - 56 [facility] Anion gap 3 in Serum or Plasma 12.0 mmol/L 8.0 - 16.0 [facility] AGE 29 yrs [facility] al NON-AA GFR >60 mL/min [facility] ital AFR AMER GFR >60 mL/min [facility] spital Male GFR In [...] >32 mL/min Normal ID Date Data Source [id number] 05/02/2020 11:41:00 AM EDT [facility] Name Value Range Interpretation Code Description Data Cecy rce(s) Supporting Document(s) Acetaminophen [Presence] in Urine <5.0 UG/ML 0.0 - 30.0 [facility] ID Date Data Source [id number] 05/02/2020 11:40:00 AM EDT [facility] Name Value Range Interpretation Code Description Data Cecy rce(s) Supporting Document(s) CBC W/AUTOMATED DIFF [facility] COMPLETE BLOOD COUNT Leukocytes [#/volume] in Blood by Automated count 6.9 10^3/uL 4.2 - 1 1.0 [facility] Erythrocytes [#/volume] in Blood by Automated count 5.08 10^6/uL 4. 50 - 6.30 [facility] Hemoglobin [Mass/volume] in Blood 15.1 g/dL 14.0 - 16.0 [facility] Hematocrit [Volume Fraction] of Blood by Automated count 44.7 % 4 1.0 - 51.0 [facility] Erythrocyte mean corpuscular volume [Entitic volume] by Auto mated count 88.0 fL 80.0 - 94.0 [facility] Erythrocyte mean corpuscular hemoglobin [Entitic mass] by Automated count 29.7 pg 27.0 - 34.0 [facility] Erythrocyte mean corpuscular hemoglobin concentration [Mass/volume] by Automated count 33.8 g/dL 31.0 - 36.0 [facility] Erythrocyte distribution width [Ratio] by Automated count 12.4 % 11.5 - 14.8 [facility] Platelets [#/volume] in Blood by Automated count 255 10^3/uL 150 - 45 0 [facility] Platelet mean volume [Entitic volume] in Blood by Automated count 9.9 fL 7.4 - 10.4 [facility] Neutrophils/100 leukocytes in Blood by Automated count 74.4 % 37. 0 - 80.0 [facility] Lymphocytes/100 leukocytes in Blood by Manual count 14.6 % 25.0 - 40.0 L [facility] Monocytes/100 leukocytes in Blood by Automated count 7.5 % 3.0 - 8.0 [facility] Eosinophils/100 leukocytes in Blood by Automated count 1.9 % 0.0 - 7.0 [facility] Basophils/100 leukocytes in Blood by Automated count 0.6 % 0.0 - 2.0 [facility] %IG 1.0 % 0.0 - 0.0 H [facility] %NRBC 0.0 % 0.0 - 0.0 [facility] Neutrophils [#/volume] in Blood by Automated count 5.15 10^3/uL 2.00 - 6.90 [facility] Lymphocytes [#/volume] in Blood by Automated count 1.01 10^3/uL 0.60 - 3.40 [facility] Monocytes [#/volume] in Blood by Automated count 0.52 10^3/uL 0.00 - 0.90 [facility] Eosinophils [#/volume] in Blood by Automated count 0.13 10^3/uL 0.00 - 0.70 [facility] Basophils [#/volume] in Blood by Automated count 0.04 10^3/uL 0.00 - 0.20 [facility] #IG 0.07 10^3/uL 0.00 - 0.10 [facility] #NRBC 0.00 10^3/uL 0.00 - 0.00 [facility] MANUAL DIFF NOT INDICATED [facility] RBC MORPH NOT INDICATED [facility] spital ID Date Data Source [id number] 12/11/2019 07:07:00 PM EST [facility] 1 OrderSheet [facility] Emergency Department [address] [place] [address] Phone #: ext- [phone] 12/11/2019 19:05 Patient: [...] rce(s) Supporting Document(s) ID Date Data Source [id number] 12/11/2019 07:07:00 PM EST [facility] 1 Medication Reconciliation Report [facility] Emergency Department [address] [place] [address] Phone #: ext- [phone] 12/11/2019 19:05 Patient: [...] Name Value Range Interpretation Code Description Data [facility](s) Supporting Document(s) ID Date Data Source [id number] 12/11/2019 07:07:00 PM [facility] 1 Medication Administration Record [facility] Emergency Department [address] [place] [address] Phone #: ext- [phone] 19:05 Patient: CAMILO BUTTS Sex: M : 1990 Age: 29yWeight: 88.4 kgHeight/Length: 72 inBMI: 26.5ALLERGIES: No Known Drug AllergyDate/Time Medication Administered Medication Ordered Name Value Range Interpretation Code Description Data [facility](s) Supporting Document(s) ID Date Data Source [id number] 12/11/2019 07:07:00 PM [facility] 1 General Instructions [facility] Emergency Department [address] [place] [address] Phone #: ext [phone] 12/11/2019 19:05 Patient: CAMILO BUTTS Sex: M [...] positive, contact your healthcare provider, local clinic, [facility] department to be treated, or return to our facility. You will be prescribed antibiotic medicine. Be sure to take all of the antibiotic as prescribed until it is gone or you are told to stop. Keep taking it even if you feel better. 2 General Instructions [facility] Emergency Department [address] [place] [address] Phone #: [phone]- [phone] 12/11/2019 19:05 Patient: CAMILO BUTTS Sex: M [...] up with your provider or the [facility] for complete STI screening, including HIV testing, and to consider ways to prevent HIV.For more information about STIs, call the CDC information line at 617-745-1767 or look at the [facility]ICSwebsite online.When to seek medical adviceCall your healthcare [...] p ain or scrotal swelling in men 4358-1764 [employer]. [address] [place] [address]. All rights reserved. This information is not intended as asubstitute for professional medical care. Always follow your healthcare professional's instructions. You have been given the following additional information: Testing for Suspected STI 3 General Instructions [facility] Emergency Department [address] [place] [address] Phone #: ext- [phone] 12/11/2019 19:05 Patient: CAMILO BUTTS Sex: M : 1990 Age: 29y(Electronically signed by HUMERA Kan 12/11/2019 21:47) Name Value Range Interpretation Code Description Data Cecy rce(s) Supporting Document(s) ID Date Data Source [id number] 12/11/2019 07:07:00 PM EST [facility] 1 Clinical Report - Nurses [facility] Emergency Department [address] [place] [address] Phone #: [phone]- [phone] 12/11/2019 19:05 Patient: CAMILO BUTTS Sex: M : 1990 Age: 29yTRIAGEArrived by private vehicle. Historian: patient. Accompanied by (Dropped off by Medicaid cab).Triage time: 19:05 12/11/2019. Acuity: LEVEL 5.Chief Complaint: (Requests STD testing).Alert.This started today. ( Pt states "i would like to make sure i don't have no diseases". Pt denies anysymptoms;). 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 Negative (no infection suspected/documented). (19:10 [...] and oral 2 Clinical Report - Nurses [facility] Department [address] [place] [address] Phone #: ext- [phone] 12/11/2019 19:05 Patient: [...] Hernandez R.N. 3 Clinical Report - Nurses [facility] Emergency Department [address] [place] [address] Phone #: ext- [phone] 12/11/2019 19:05 Patient: CAMILO BUTTS Sex: M : 1990 Age: 29yDISPOSITION / DISCHARGE Departure time: 19:56 12/11/2019. Condition at departure: stable. No learning barriers present. Reviewed warnings. Reviewed medication(s). Treatments reviewed. Reviewed referrals. Patient verbalized understanding. Written instructions provided in [place]. The patient was discharged by the physician tutoring assistant. He was discharged home and unaccompanied at [...] rce(s) Supporting Document(s) ID Date Data Source [id number] 12/11/2019 07:07:00 PM EST [facility] 1 Clinical Report - Physicians/Mid Levels [facility] Emergency Department [address] [place] [address] Phone #: ext- [phone] 12/11/2019 19:05 Patient: [...] inspection. 2 Clinical Report - Physicians/Mid Levels [facility] Emergency Department [address] [place] [address] Phone #: ext- [phone] 12/11/2019 19:05 Patient: CAMILO BUTTS Sex: M [...] Testing).INSTRUCTIONS 3 Clinical Report - Physicians/Mid Levels [facility] Emergency Department [address] [place] [address] Phone #: ext- [phone] 12/11/2019 19:05 Patient: [...] rce(s) Supporting Document(s) ID Date Data Source [id number] 12/13/2019 08:10:00 AM EST [facility] Name Value Range Interpretation Code Description Data Cecy rce(s) Supporting Document(s) HIV 1+2 Ab+HIV1 p24 Ag [Presence] in Serum or Plasma b y Immunoassay Non Reactive Non Reactive [facility] ID Date Data Source [id number] 12/11/2019 08:51:00 PM [facility] Name Value Range Interpretation Code Description Data Cecy rce(s) Supporting Document(s) Treponema pallidum Ab [Presence] in Serum NON-REACTIVE NORMAL:NON MELBA CTIVE [facility] ID Date Data Source [id number] 12/14/2019 06:49:00 PM [facility] Name Value Range Interpretation Code Description Data Cecy rce(s) Supporting Document(s) Chlamydia trachomatis rRNA [Presence] in Unspecified specimen by Probe and target amplification method Negative Negative [facility] Neisseria gonorrhoeae rRNA [Presence] in Unspecified specimen by Probe and target amplification method Negative Negative [facility] ID Date Data Source [id number] 12/11/2019 07:34:00 PM [facility] Name Value Range Interpretation Code Description Data Cecy rce(s) Supporting Document(s) URINALYSIS [facility] akanksha URINALYSIS SOURCE R [facility] COLOR yellow NORMAL: Yellow [facility] ospital CLARITY clear NORMAL: Clear [facility] Specific gravity of Urine by Test strip 1.010 1.001 - 1.030 [facility] pH 6 5 - 9 [facility] Glucose [Mass/volume] in Urine by Test strip NORM NORMAL: Negat [facility] Bilirubin.total [Presence] in Urine by Test strip NEG NORMAL: Negative [facility] Ketones [Presence] in Urine by Test strip NEG NORMAL: Negative [facility] Protein [Mass/volume] in Urine by Test strip NEG NORMAL: Negat [facility] Nitrite [Presence] in Urine by Test strip NEG NORMAL: Negative [facility] BLOOD NEG NORMAL: Negative [facility] Leukocyte esterase [Presence] in Urine by Test strip NEG [place] L: Negative [facility] Urobilinogen [Mass/volume] in Urine by Test strip NOR less alida n 1.0 mg/dL [facility] MICROSCOPIC Not Indicate [facility] ID Date Data Source [id number] 11/07/2019 08:51:00 PM [facility] [address] [place] [address] RESPIRATORY CARE REPORT ==== ---------NAME------- NUMBER SEX AGE ADMIT DISC. XRAY# F/C JULIAN Navarro [id number] M 29 11/06/19 11/06/19 [id number] XBE E/R DATE OF : 1990 M/R# [id number] #: [id number] TR-07 LOCATION: [place] [id number] COMP LETE:11/07/19 03:07 VMT [id number] PHYSICIAN: SOLEDAD HUGGINS CH Name Value Range Interpretation Code Description Data Cecy rce(s) Supporting Document(s) ID Date Data Source [id number] 11/07/2019 04:06:00 [place] [address] PHONE: [phone] FAX: [phone] Name .................. : BENJAMÍN Navarro Acct Number.................. : [id number] ROOM. ................. : [facility] Number ................... : [id number] Stay type ............. : E/R Discharge Date......... ... : 11/06/19 Admit Date ......... : 11/06/19 Admit Phys .................... : SOLEDAD Turner Date of ....... : 1990 Family Phys ................... : NON STAFF Phone .................. : [phone] Age ................................ : 29 Film# .................. .:[id number] Sex ................................. : M Unsigned transcriptions are preliminary reports and do not represent a medical or legal document CHEST 2 VIEWS [id number] COMPLETE:11/06/19 14:30 KBO 09672 Reason(s): transient lightheadedness; resolved CHEST X-RAY: 2- VIEWS INDICATION: Transient lightheadedness, which has now resolved. FINDINGS: The cardiac and mediastinal silhouettes appear normal and the lungs are clear. The bones and soft tissues are normal. The upper abdomen is unremarkable. IMPRESSION: No acute disease identifiable. Electronically Reviewed and Signed By Kevin Ponce M.D. , 11/07/19 16:06, [facility] Transcribe Initials: FIORELLA , Transcribe Date: 11/06/19 18:06, Dictation Date: Copy for: PARVEEN GALLAGHER via fax Copy for: EMERGENCY DEPT via [employer] Copy for: 710 MED REC DISCHARGED Page 1 of 1 Name Value Range Interpretation Code Description Data Cecy rce(s) Supporting Document(s) ID Date Data Source [id number] 11/06/2019 10:57:00 AM EST [facility] 1 OrderSheet [facility] Emergency Department [address] [place] [address] Phone #: ext- [phone] 11/06/2019 10:53 Patient: CAMILO BUTTS Sex: M : 1990 Age: 29yWEIGHT:87.2 kg (M) HEIGHT:69 inches (E) BMI:28.4ALLERGIES: No Known Drug AllergyLAB ORDERSOrder Description Priority Entered Acknowledged InitialedCBC w Diff STAT 11:11/06/2019 11:28 [place] Francisco J Huggins fructose loader, Cornelio ER P.A.-C; [id number] STAT 11:11/06/2019 11:28 [place] Serjiokuldeep Huggins fructose loader, Cornelio ER P.A.-C; [id number] (Clean STAT 11:11/06/2019 11:28 [facility]) Francisco J Huggins fructose loader, Cornelio ER P.A.-C; [id number] Nasal A B STAT 11:11/06/2019 11:50 [place], January Francisco J Huggins R.N. P.A.-C;HIV RNA Quant STAT 11:11/06/2019 11:43 [place] Francisco J Huggins fructose loader, Cornelio ER P.A.-C; Tech1 NOTES: ER HIV [...] Francisco J Huggins R.N. P.A.-C; 2 OrderSheet [facility] Emergency Department [address] [place] [address] Phone #: [phone]- [phone] 11/06/2019 10:53 Patient: CAMILO BUTTS Sex: M : 1990 Age: 29ySaline Lock 11:22 11/06/2019 Cancelled: Patient Refusal 11:50 Francisco J Strickland R.N.;EKG 11:11/06/2019 Ack'd: 11:30 11:43 Ruthann Huggins [place] fructose loader, fructose loader, Cornelio BENNETT P.A.-C; Cornelio BENNETT Tech1 Tech1[Electronically signed by Neida Strickland R.N. (:11/06/2019)][Electronically signed by Francisco J Huggins P.A.-C (01:11/07/2019)][Electronically locked by Neida Strickland R.N. (:11/06/2019)] Name Value Range Interpretation Code Description Data Cecy rce(s) Supporting Document(s) ID Date Data Source [id number] 11/06/2019 10:57:00 AM EST [facility] 1 Medication Reconciliation Report [facility] Emergency Department [address] [place] [address] Phone #: ext- [phone] 11/06/2019 10:53 Patient: [...] Name Value Range Interpretation Code Description Data [facility](s) Supporting Document(s) ID Date Data Source [id number] 11/06/2019 10:57:00 AM [facility] 1 Medication Administration Record [facility] Emergency Department [address] [place] [address] Phone #: ext- [phone] 10:53 Patient: CAMILO BUTTS Sex: M : 1990 Age: 29yWeight: 87.2 kgHeight/Length: 69 inBMI: 28.4ALLERGIES: No Known Drug AllergyDate/Time Medication Administered Medication Ordered Name Value Range Interpretation Code Description Data [facility](s) Supporting Document(s) ID Date Data Source [id number] 11/06/2019 10:57:00 AM [facility] 1 General Instructions [facility] Emergency Department [address] [place] [address] Phone #: ext- [phone] 11/06/2019 10:53 Patient: CAMILO BUTTS Sex: M [...] rce(s) Supporting Document(s) ID Date Data Source [id number] 11/06/2019 10:57:00 AM EST [facility] 1 Clinical Report - Nurses [facility] Emergency Department [address] [place] [address] Phone #: [phone]- [phone] 11/06/2019 10:53 Patient: CAMILO BUTTS Sex: M [...] of CRE. 2 Clinical Report - Nurses [facility] Emergency Department [address] [place] [address] Phone #: ext- [phone] 11/06/2019 10:53 Patient: [...] and shown to the PA. --11:43 11/06/19 [place] fructose loaderCornelio Rivera ER Tech1 11:40 11/06/19. Patient ID band checked for patient name and birthdate: patient confirmed. Flu swab obtained by RN via nasal swab. Labeled in the presence of the patient and sent to lab. --11:50 11/06/19 Neida Strickland R.N. 3 Clinical Report - Nurses [facility] Emergency Department [address] [place] [address] Phone #: ext- [phone] 11/06/2019 10:53 Patient: CAMILO BUTTS Sex: M : 1990 Age: 29y 11:45 11/06/19. ( blood drawn by molder labels.). --11:51 11/06/19 Neida Strickland R.N. ( RN [...] he [facility] de[facility] and sign them out or see a pcp and they will request results and discuss treatment if he is positive. pt verbalized understanding.). --13:03 11/06/19 Neida Strickland R.N.DISPOSITION / DISCHARGE 13:00 11/06/19. BP: 126/86. HR: 73. RR: 17. O2 saturation: 99%. Temp: 98.2 F. Pain level now 0/10. --13:00 11/06/19 [facility] TechCornelio ER Tech1 Condition at departure: improved and stable. No learning barriers present. Discharge instructions provided and reviewed with the patient. Patient verbalized understanding. Written instructions provided in [place]. The patient was discharged by the physician tutoring assistant. He was discharged home. He left ambulatory and via taxi. 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 --13:01 11/06/19 Neida Strickland R.N.Locked/Released at 11/06/2019 13:03 by Neida Strickland R.N. Name Value Range Interpretation Code Description Data Cecy rce(s) Supporting Document(s) ID Date Data Source [id number] 11/06/2019 10:57:00 AM EST [facility] 1 Clinical Report - Physicians/Mid Levels [facility] Emergency Department [address] [place] [address] Phone #: ext- [phone] 11/06/2019 10:53 Patient: [...] HISTORYSee nurses notes. Seizures. Problems: Insomnia [Chronic]. Orange disorder. Lifestyle / Substance Problems. Neurological Disease. Bipolar Disorder. ADHD - Attention Deficit Hyperactivity Disorder. Other Disease. Seizure Disorder. Tendonitis. Tension-Type Headache. Obsessive Compulsive Disorder. Ocd. Paranoid schizophrenia. Tbi. 2 Clinical Report - Physicians/Mid [facility] Emergency Department [address] [place] [address] Phone #: ext- [phone] 11/06/2019 10:53 Patient: [...] normal. 3 Clinical Report - Physicians/Mid Levels [facility] Emergency Department [address] [place] [address] Phone #: ext- [phone] 11/06/2019 10:53 Patient: [...] 68-79yrs 4 Clinical Report - Physicians/Mid Levels [facility] Emergency Department [address] [place] [address] Phone #: ext- [phone] 11/06/2019 10:53 Patient: [...] results. 5 Clinical Report - Physicians/Mid Levels [facility] Emergency Department [address] [place] [address] Phone #: ext- [phone] 11/06/2019 10:53 Patient: CAMILO BUTTS Sex: M [...] patient. 6 Clinical Report - Physicians/Mid Levels [facility] Emergency Department [address] [place] [address] Phone #: ext- [phone] 11/06/2019 10:53 Patient: CAMILO BUTTS [facility]#: [id number] Sex: M : 1990 Age: 29y(Electronically signed by Francisco J Huggins P.A.-C 11/07/2019 01:28) Name Value Range Interpretation Code Description Data Cecy rce(s) Supporting Document(s) ID Date Data Source [id number] 11/07/2019 10:12:00 AM [facility] Name Value Range Interpretation Code Description Data Cecy rce(s) Supporting Document(s) HIV 1+2 Ab+HIV1 p24 Ag [Presence] in Serum or Plasma b y Immunoassay Non Reactive Non Reactive [facility] ID Date Data Source [id number] 11/06/2019 12:10:00 PM [facility] Name Value Range Interpretation Code Description Data Cecy rce(s) Supporting Document(s) COMPREHENSIVE METABOLIC PANEL [facility] COMPREHENSIVE METABOLIC PANEL Sodium [Moles/volume] in Serum or Plasma 141 mEq/L 134 - 153 [facility] Potassium [Moles/volume] in Serum or Plasma 4.0 mEq/L 3.6 - 5.0 [facility] Chloride [Moles/volume] in Serum or Plasma 105 mEq/L 98 - 107 [facility] Carbon dioxide, total [Moles/volume] in Serum or Plasma 26 MEQ/L 22 - 30 [facility] Glucose [Mass/volume] in Serum or Plasma 98 MG/DL 65 - 110 [facility] BUN 17 MG/DL 7 - [facility] Creatinine [Mass/volume] in Serum or Plasma 0.7 MG/DL 0.7 - 1.5 [facility] BUN/CREAT 24 8 - 27 [facility] Protein [Mass/volume] in Serum or Plasma 6.7 G/DL 6.3 - 8.2 [facility] Albumin [Mass/volume] in Serum or Plasma 4.3 G/DL 3.9 - 5.0 [facility] Globulin [Mass/volume] in Serum by calculation 2.4 GM/DL 2.4 - 3.2 [facility] A/G RATIO 1.8 0.8 - 2.0 [facility] al Calcium [Mass/volume] in Serum or Plasma 9.5 MG/DL 8.4 - 10.2 [facility] Bilirubin.total [Mass/volume] in Serum or Plasma 0.8 MG/DL 0.2 - 1.3 [facility] Alkaline phosphatase [Enzymatic activity/volume] in Serum or Plasma 107 U/L 38 - 126 [facility] Aspartate aminotransferase [Enzymatic activity/volume] in Serum or Plasma 18 U/L 5 - 40 [facility] Alanine aminotransferase [Enzymatic activity/volume] in Seru m or Plasma 24 U/L 7 - 56 [facility] Anion gap 3 in Serum or Plasma 10.0 mmol/L 8.0 - 16.0 [facility] AGE 29 yrs [facility] al NON-AA GFR >60 mL/min [facility] ital AFR AMER GFR >60 mL/min [facility] Male GFR In [...] >32 mL/min Normal ID Date Data Source [id number] 11/06/2019 11:57:00 AM EST [facility] Name Value Range Interpretation Code Description Data Cecy rce(s) Supporting Document(s) CBC W/AUTOMATED DIFF [facility] COMPLETE BLOOD COUNT Leukocytes [#/volume] in Blood by Automated count 6.8 10^3/uL 4.2 - 1 1.0 [facility] Erythrocytes [#/volume] in Blood by Automated count 5.42 10^6/uL 4. 50 - 6.30 [facility] Hemoglobin [Mass/volume] in Blood 16.1 g/dL 14.0 - 16.0 H [facility] Hematocrit [Volume Fraction] of Blood by Automated count 47.4 % 4 1.0 - 51.0 [facility] Erythrocyte mean corpuscular volume [Entitic volume] by Auto mated count 87.5 fL 80.0 - 94.0 [facility] Erythrocyte mean corpuscular hemoglobin [Entitic mass] by Automated count 29.7 pg 27.0 - 34.0 [facility] Erythrocyte mean corpuscular hemoglobin concentration [Mass/volume] by Automated count 34.0 g/dL 31.0 - 36.0 [facility] Erythrocyte distribution width [Ratio] by Automated count 12.4 % 11.5 - 14.8 [facility] Platelets [#/volume] in Blood by Automated count 237 10^3/uL 150 - 45 0 [facility] Platelet mean volume [Entitic volume] in Blood by Automated count 9.5 fL 7.4 - 10.4 [facility] Neutrophils/100 leukocytes in Blood by Automated count 69.2 % 37. 0 - 80.0 [facility] Lymphocytes/100 leukocytes in Blood by Manual count 20.1 % 25.0 - 40.0 L [facility] Monocytes/100 leukocytes in Blood by Automated count 7.3 % 3.0 - 8.0 [facility] Eosinophils/100 leukocytes in Blood by Automated count 2.2 % 0.0 - 7.0 [facility] Basophils/100 leukocytes in Blood by Automated count 0.6 % 0.0 - 2.0 [facility] %IG 0.6 % 0.0 - 0.0 [facility] %NRBC 0.0 % 0.0 - 0.0 [facility] al Neutrophils [#/volume] in Blood by Automated count 4.73 10^3/uL 2.00 - 6.90 [facility] Lymphocytes [#/volume] in Blood by Automated count 1.37 10^3/uL 0.60 - 3.40 [facility] Monocytes [#/volume] in Blood by Automated count 0.50 10^3/uL 0.00 - 0.90 [facility] Eosinophils [#/volume] in Blood by Automated count 0.15 10^3/uL 0.00 - 0.70 [facility] Basophils [#/volume] in Blood by Automated count 0.04 10^3/uL 0.00 - 0.20 [facility] #IG 0.04 10^3/uL 0.00 - 0.10 [facility] #NRBC 0.00 10^3/uL 0.00 - 0.00 [facility] ospital MANUAL DIFF NOT INDICATED [facility] RBC MORPH NOT INDICATED [facility] ID Date Data Source [id number] 11/06/2019 12:11:00 PM EST [facility] Name Value Range Interpretation Code Description Data Cecy rce(s) Supporting Document(s) Influenza virus A Ag [Presence] in Nasopharynx by Immunoassa y NEGATIVE NORMAL: NEGATIVE [facility] Influenza virus B Ag [Presence] in Nasopharynx by Immunoassa y NEGATIVE NORMAL: NEGATIVE [facility] NEGATIVENEGATIVE PROCEDURAL CO NTROL VALID KIT [...] other patient managementdecisions. ID Date Data Source [id number] 11/06/2019 11:55:00 AM EST [facility] Name Value Range Interpretation Code Description Data Cecy rce(s) Supporting Document(s) [facility] SOURCE R [facility] COLOR yellow NORMAL: Yellow [facility] CLARITY clear NORMAL: Clear [facility] Specific gravity of Urine by Test strip 1.020 1.001 - 1.030 [facility] pH 7 5 - 9 [facility] al Glucose [Mass/volume] in Urine by Test strip NORM NORMAL: Negat delia [facility] Bilirubin.total [Presence] in Urine by Test strip NEG NORMAL: Negative [facility] Ketones [Presence] in Urine by Test strip NEG NORMAL: Negative [facility] Protein [Mass/volume] in Urine by Test strip NEG NORMAL: Negat delia [facility] Nitrite [Presence] in Urine by Test strip NEG NORMAL: Negative [facility] BLOOD NEG NORMAL: Negative [facility] Leukocyte esterase [Presence] in Urine by Test strip NEG [place] L: Negative [facility] Urobilinogen [Mass/volume] in Urine by Test strip 4 less alida n 1.0 mg/dL [facility] MICROSCOPIC Not Indicate [facility] Procedure Social History Code Duration Value Status Description Data Source(s ) Smoking 10/20/2020 12:00:00 AM EST Smoker, current status unkn own completed Smoker, current status unknown [facility]) Smoking 09/24/2020 12:00:00 AM EST Smoker, current status unkn own completed Smoker, current status unknown [facility] ([facility]) Smoking 09/02/2020 12:00:00 AM EST Smoker, current status unkn own completed Smoker, current status unknown [facility] ([facility]) Smoking 08/19/2020 12:00:00 AM EDT Smoker, current status unkn own completed Smoker, current status unknown [facility] ([facility]) Smoking 08/18/2020 12:00:00 AM EDT Smoker, current status unkn own completed Smoker, current status unknown [facility] ([facility]) Smoking 07/29/2020 12:00:00 AM EDT Smoker, current status unkn own completed Smoker, current status unknown [facility] ([facility]) Smoking 07/22/2020 12:00:00 AM EDT Smoker, current status unkn own completed Smoker, current status unknown [facility] ([facility]) Smoking 07/10/2020 12:00:00 AM EDT Smoker, current status unkn own completed Smoker, current status unknown [facility] ([facility]) Smoking 04/13/2020 12:00:00 AM EDT Smoker, current status unkn own completed Smoker, current status unknown [facility] ([facility]) Smoking 02/24/2020 12:00:00 AM EDT Smoker, current status unkn own completed Smoker, current status unknown [facility] ([facility]) Smoking 02/19/2020 12:00:00 AM EDT Smoker, current status unkn own completed Smoker, current status unknown [facility] ([facility]) Smoking 01/28/2020 12:00:00 AM EDT Smoker, current status unkn own completed Smoker, current status unknown [facility] ([facility]) Smoking 01/10/2020 12:00:00 AM EDT Smoker, current status unkn own completed Smoker, current status unknown [facility] ([facility]) Smoking 12/26/2019 12:00:00 AM EST Smoker, current status unkn own completed Smoker, current status unknown [facility] ([facility]) Smoking 12/09/2019 12:00:00 AM EST Smoker, current status unkn own completed Smoker, current status unknown [facility] ([facility]) Smoking 10/21/2019 12:00:00 AM EST Smoker, current status unkn own completed Smoker, current status unknown [facility] ([facility]) Smoking 10/07/2019 12:00:00 AM EST Smoker, current status unkn own completed Smoker, current status unknown [facility] ([facility]) Smoking 09/17/2019 12:00:00 AM EST Smoker, current status unkn own completed Smoker, current status unknown [facility] ([facility])
== END 2020-11-03 13:03 | disposition home or self-care (01) ==
LOC: M ED 11:58
DX: M79.10 Myalgia, unspecified site (principal); R56.9 Unspecified convulsions; Z87.442 Personal history of urinary calculi; Z79.899 Other long term (current) drug therapy; Z88.1 Allergy status to other antibiotic agents

== ENCOUNTER 2020-11-14 20:08 | Emergency (ER) | payer MEDICAID ==
[~2020-11-14] VITALS: Ht 182.9 cm; Wt 80.1 kg
[~2020-11-14 20:08] MED LIST changes: -QUET1TAB10 PO; +QUET300T2 PO; +QUET50TA3 PO; -QUET5TAB PO
[2020-11-14 20:41] LABS: HEMATOCRIT 48.7 % (42.0-52.0); HEMOGLOBIN 16.2 g/dl (13.5-17.5); MEAN CORPUSCULAR HEMOGLOBIN 29.8 pg (27.0-33.0); MEAN CORPUSCULAR HGB CONC 33.3 g/dl (32.0-36.5); MEAN CORPUSCULAR VOLUME 89.7 fl (80.0-96.0); PLATELET COUNT, AUTOMATED 274 10^3/uL (150-450); RED BLOOD COUNT 5.43 10^6/uL (4.30-6.10)
[2020-11-14 21:08] LABS: AMPHETAMINES LEVEL URINE NEGATIVE (NEGATIVE); BARBITURATES URINE NEGATIVE (NEGATIVE); BENZODIAZEPINES URINE NEGATIVE (NEGATIVE); CANNABINOIDS URINE NEGATIVE (NEGATIVE); COCAINE METABOLITE URINE NEGATIVE (NEGATIVE); METHADONE URINE NEGATIVE (NEGATIVE); OPIATES URINE NEGATIVE (NEGATIVE); PHENCYCLIDINE URINE NEGATIVE (NEGATIVE)
[2020-11-14] MEDS ORDERED: LORazepam 2 MG/ML VIAL IM STA (21:36)
[2020-11-14] MEDS ORDERED: HALOPERIDOL 5MG/ML VIAL (J1630 PER 1) IM STA (21:36)
[2020-11-14 21:49] LABS: ACETAMINOPHEN LEVEL < 2.0 UG/ML (10.0-30.0); ALBUMIN 4.6 GM/DL (3.2-5.2); ALT/SGPT 30 U/L (12-78); BILIRUBIN,DIRECT 0.2 MG/DL (0.0-0.2); BILIRUBIN,TOTAL 0.4 MG/DL (0.2-1.0); BLOOD UREA NITROGEN 5 MG/DL (7-18); CARBON DIOXIDE LEVEL 25 MEQ/L (21-32); CHLORIDE LEVEL 111 MEQ/L (98-107); CREATININE FOR GFR 0.79 MG/DL (0.70-1.30); ETHYL ALCOHOL (ETHANOL) 0.178 % (0.000-0.010); GLOMERULAR FILTRATION RATE > 60.0 (>60); GLUCOSE, FASTING 90 MG/DL (70-100); POTASSIUM SERUM 3.5 MEQ/L (3.5-5.1); SALICYLATE LEVEL < 1.7 MG/DL (5.0-30.0); SODIUM LEVEL 144 MEQ/L (136-145); TOTAL PROTEIN 7.8 GM/DL (6.4-8.2)
[2020-11-15 06:31] VITALS: BP 140/89
== END 2020-11-15 06:35 | disposition home or self-care (01) ==
LOC: M ED 20:08
DX: F10.129 Alcohol abuse with intoxication, unspecified (principal)
CPT/HCPCS: 36415; 80048; 80076; 80307; 84443; 85027; 96372; 99285; G0480; J1630; J2060

== ENCOUNTER 2020-11-18 06:17 | Emergency (ER) | payer MEDICAID ==
--- OUTSIDE RECORDS SUMMARY | 2020-11-18 06:23 | CCD ---
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 Medications Rx Norm Medication Route Route Concept Start Date Stop Date Dosage Diego quency Duration Formula Strength Dosage Form Dosage Form Code Dosage Description Medication Id Account Npid Author First Name Author Last Name Taxonomy Code Taxonomy Desc Phone Number [id number] Sanchez Chery 01/04/2018 every four weeks 300 mg suspension,extended rel recon [phone] Laurie Mckeon [id number] Nurse Practitioner [phone] Seroquel 07/25/2019 30 300 mg tablet 00002 1 [phone] Irlanda Mckeon [id number] Nurse Practitioner [phone] Social History Social History Element Description Concept Effective Date Smoking Status Smoker, current status unknown [id number] Immunizations No Data in Section Vital Signs No Data in Section Procedures Date Concept Id Description Targeted Site Concept Targeted Site Concept Type 11/16/2020 12300 Extended Individual Psychotherapy - 45 min CPT Patient has no history of implantable de vices Encounters Encounter Start Date End Date Encounter Type Description Diagnosis Di agnosis Desc Location Author First Name Author Last Name Npid Taxonomy Cod e Taxonomy Desc Phone Number Location Addr1 Location Addr2 Location City Location Sta Location Zip [id number] 11/16/2020 11/16/2020 56594 Extended Individual Psych otherapy - 45 min 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 C[place] Jensen [phone] [id number] [place] [phone] [phone] Plan of Treatment No Data in Section Lab Results No Data in Section Instructions No Data in Section Insurance Providers Insurance Id Policy Effective Date Policy Thru Date Company [employer] ivan [id number] MEDICAID
--- OUTSIDE RECORDS SUMMARY | 2020-11-18 06:23 | CCD ---
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, With delusions Active 11/03/2020 Medications Rx Norm Medication Route Route Concept Start Date Stop Date Dosage Diego quency Duration Formula Strength Dosage Form Dosage Form Code Dosage Description Medication Id Account Npid Author First Name Author Last Name Taxonomy Code Taxonomy Desc Phone Number [phone] Sanchez Chery 01/04/2018 every four weeks 300 mg suspension,extended rel recon [phone] Laurie Mckeon [id number] Nurse Practitioner [phone] Seroquel 07/25/2019 30 300 mg tablet 71913 1 [phone] Irlanda Mckeon [id number] Nurse Practitioner [phone] Social History Social History Element Description Concept Effective Date Smoking Status Smoker, current status unknown [id number] Immunizations No Data in Section Vital Signs No Data in Section Procedures Date Concept Id Description Targeted Site Concept Targeted Site Concept Type 11/02/2020 75340 Extended Individual Psychotherapy - 45 min CPT Patient has no history of implantable de vices Encounters Encounter Start Date End Date Encounter Type Description Diagnosis Di agnosis Desc Location Author First Name Author Last Name Npid Taxonomy Cod e Taxonomy Desc Phone Number Location Addr1 Location Addr2 Location City Location Sta Location [facility] [id number] 11/02/2020 11/02/2020 61759 Extended Individual Psych otherapy - 45 min 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
--- OUTSIDE RECORDS SUMMARY | 2020-11-18 06:24 | CCD ---
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 [...] rce(s) Supporting Document(s) ID Date Data Source [id number] 08/29/2020 02:39:[address] [address] ---------NAME--------- NUMBER SEX AGE ADMIT DISC. XRAY# F/C TYPE MANTLE CAMILO D [id number] M 29 08/29/20 [id number] NA E/R DATE OF : 1990 M/R# [id number] #: [id number] TR-03 LOCATION: EMERGENCY DEPT TRANSCRIBED: 08/29/20 2:[address] ABD //T// PELV W/[place] ORAL W/[place] [id number] COMPLETED:08/29/20 2:18 RLB [id number] Reason(s): Trauma/Injury PHYSICIAN: ANTHONY BR======== R A [...] rce(s) Supporting Document(s) ID Date Data Source [id number] 08/29/2020 02:37:00 AM [facility] [address] [place] [address] ---------NAME--------- NUMBER SEX AGE ADMIT DISC. XRAY# F/C TYPE MANTLE CAMILO D [id number] M 29 08/29/20 [id number] NA E/R DATE OF : 1990 M/R# [id number] PH#: [phone] TR-03 LOCATION: EMERGENCY DEPT TRANSCRIBED: 08/29/20 2:[address] NECK W/O CONTRAST [id number] COMPLETED:08/29/20 2:18 RLB [id number] Reason(s): Trauma/Injury PHYSICIAN: ANTHONY BR R A [...] rce(s) Supporting Document(s) ID Date Data Source [id number] 08/29/2020 02:02:00 AM [facility] Name Value Range Interpretation Code Description Data Cecy rce(s) Supporting Document(s) Lipase [Enzymatic activity/volume] in Serum or Plasma 37 U/L 13 - 60 [facility] ID Date Data Source [id number] 08/29/2020 02:02:00 AM [facility] Name Value Range Interpretation Code Description Data Cecy rce(s) Supporting Document(s) COMPREHENSIVE METABOLIC PANEL [facility] COMPREHENSIVE METABOLIC PANEL Sodium [Moles/volume] in Serum or Plasma 136 mEq/L 134 - 153 [facility] Potassium [Moles/volume] in Serum or Plasma 3.8 mEq/L 3.6 - 5.0 [facility] Chloride [Moles/volume] in Serum or Plasma 103 mEq/L 98 - 107 [facility] Carbon dioxide, total [Moles/volume] in Serum or Plasma 26 MEQ/L 22 - 30 [facility] Glucose [Mass/volume] in Serum or Plasma 106 MG/DL 65 - 110 [facility] BUN 14 MG/DL 7 - 21 [facility] al Creatinine [Mass/volume] in Serum or Plasma 0.6 MG/DL 0.7 - 1.5 L [facility] BUN/CREAT 23 8 - 27 [facility] Protein [Mass/volume] in Serum or Plasma 6.6 G/DL 6.3 - 8.2 [facility] Albumin [Mass/volume] in Serum or Plasma 4.3 G/DL 3.9 - 5.0 [facility] Globulin [Mass/volume] in Serum by calculation 2.3 GM/DL 2.4 - 3.2 L [facility] A/G RATIO 1.9 0.8 - 2.0 [facility] Calcium [Mass/volume] in Serum or Plasma 9.3 MG/DL 8.4 - 10.2 [facility] Bilirubin.total [Mass/volume] in Serum or Plasma 0.8 MG/DL 0.2 - 1.3 [facility] Alkaline phosphatase [Enzymatic activity/volume] in Serum or Plasma 108 U/L 38 - 126 [facility] Aspartate aminotransferase [Enzymatic activity/volume] in Serum or Plasma 17 U/L 5 - 40 [facility] Alanine aminotransferase [Enzymatic activity/volume] in Seru m or Plasma 18 U/L 7 - 56 [facility] Anion gap 3 in Serum or Plasma 7.0 mmol/L 8.0 - 16.0 L [facility] AGE 29 yrs [facility] al NON-AA GFR >60 mL/min [facility] ital AFR AMER GFR >60 mL/min [facility] Ho spital Male GFR In terprentation 20-49 [...] >32 mL/min Normal ID Date Data Source [id number] 08/29/2020 01:45:00 AM [facility] Name Value Range Interpretation Code Description Data Cecy rce(s) Supporting Document(s) Lactate [Moles/volume] in Serum or Plasma 1.0 MMOL/L 0.2 - 2.2 [facility] ID Date Data Source [id number] 08/29/2020 01:42:00 AM [facility] Name Value Range Interpretation Code Description Data Cecy rce(s) Supporting Document(s) CBC W/AUTOMATED DIFF [facility] COMPLETE BLOOD COUNT Leukocytes [#/volume] in Blood by Automated count 8.4 10^3/uL 4.2 - 1 1.0 [facility] Erythrocytes [#/volume] in Blood by Automated count 4.97 10^6/uL 4. 50 - 6.30 [facility] Hemoglobin [Mass/volume] in Blood 15.1 g/dL 14.0 - 16.0 [facility] Hematocrit [Volume Fraction] of Blood by Automated count 43.8 % 4 1.0 - 51.0 [facility] Erythrocyte mean corpuscular volume [Entitic volume] by Auto mated count 88.1 fL 80.0 - 94.0 [facility] Erythrocyte mean corpuscular hemoglobin [Entitic mass] by Automated count 30.4 pg 27.0 - 34.0 [facility] Erythrocyte mean corpuscular hemoglobin concentration [Mass/volume] by Automated count 34.5 g/dL 31.0 - 36.0 [facility] Erythrocyte distribution width [Ratio] by Automated count 12.6 % 11.5 - 14.8 [facility] Platelets [#/volume] in Blood by Automated count 258 10^3/uL 150 - 45 0 [facility] Platelet mean volume [Entitic volume] in Blood by Automated count 9.9 fL 7.4 - 10.4 [facility] Neutrophils/100 leukocytes in Blood by Automated count 59.4 % 37. 0 - 80.0 [facility] Lymphocytes/100 leukocytes in Blood by Manual count 28.6 % 25.0 - 40.0 [facility] Monocytes/100 leukocytes in Blood by Automated count 8.9 % 3.0 - 8.0 H [facility] Eosinophils/100 leukocytes in Blood by Automated count 2.1 % 0.0 - 7.0 [facility] Basophils/100 leukocytes in Blood by Automated count 0.6 % 0.0 - 2.0 [facility] %IG 0.4 % 0.0 - 0.0 H [facility] al %NRBC 0.0 % 0.0 - 0.0 [facility] al Neutrophils [#/volume] in Blood by Automated count 4.99 10^3/uL 2.00 - 6.90 [facility] Lymphocytes [#/volume] in Blood by Automated count 2.40 10^3/uL 0.60 - 3.40 [facility] Monocytes [#/volume] in Blood by Automated count 0.75 10^3/uL 0.00 - 0.90 [facility] Eosinophils [#/volume] in Blood by Automated count 0.18 10^3/uL 0.00 - 0.70 [facility] Basophils [#/volume] in Blood by Automated count 0.05 10^3/uL 0.00 - 0.20 [facility] #IG 0.03 10^3/uL 0.00 - 0.10 [facility] ospital #NRBC 0.00 10^3/uL 0.00 - 0.00 [facility] ospital MANUAL DIFF NOT INDICATED [facility] RBC MORPH NOT INDICATED [facility] spital ID Date Data Source [id number] 08/29/2020 01:40:00 AM EST [facility] Name Value Range Interpretation Code Description Data Cecy rce(s) Supporting Document(s) DRUG SCREEN URINE [facility] URINE DRUG SCREEN Amphetamine [Presence] in Urine by Screen method NEGATIVE NORMAL: N EGATIVE [facility] BARBITURATES NEGATIVE NORMAL: NEGATIVE [facility] BENZO NEGATIVE NORMAL: NEGATIVE [facility] COCAINE NEGATIVE NORMAL: NEGATIVE [facility] Tetrahydrocannabinol [Presence] in Urine NEGATIVE NORMAL: NEGATIVE [facility] OPIATES NEGATIVE NORMAL: NEGATIVE [facility] Phencyclidine [Presence] in Urine by Screen method NEGATIVE NOR MAL: NEGATIVE [facility] \\BLDo\\URINE DRUG SCR EEN INTERPRETATION\\BLDx\\ THE CUTOFFF LEVELS FOR DETECTION ARE FOLLOWS: AMPHETAMINES 1000 ng/ml BARBITUARATES 200 ng/ml BENZODIAZEPINES 100 ng/ml THC 50 ng/ml PHENCYCLIDINE 25 ng/ml OPIATES 300 ng/ml COCAINE 300 ng/ml ALL POSITIVES ARE CONSIDERED PRESUMPTIVE POSITIVE CONFIRMATION WILL BE PERFORMED AT PHYSICIAN REQUEST. ID Date Data Source [id number] 08/29/2020 01:25:00 AM EST [facility] Name Value Range Interpretation Code Description Data Cecy rce(s) Supporting Document(s) URINALYSIS [facility] URINALYSIS SOURCE R [facility] al COLOR yellow NORMAL: Yellow [facility] ospital CLARITY clear NORMAL: Clear [facility] Ho spital Specific gravity of Urine by Test strip 1.010 1.001 - 1.030 [facility] pH 6.5 5 - 9 [facility] Glucose [Mass/volume] in Urine by Test strip NORM NORMAL: Negat [facility] Bilirubin.total [Presence] in Urine by Test strip NEG NORMAL: Negative [facility] Ketones [Presence] in Urine by Test strip NEG NORMAL: Negative [facility] Protein [Mass/volume] in Urine by Test strip NEG NORMAL: Negat [facility] Nitrite [Presence] in Urine by Test strip NEG NORMAL: Negative [facility] BLOOD NEG NORMAL: Negative [facility] Leukocyte esterase [Presence] in Urine by Test strip NEG [place] L: Negative [facility] Urobilinogen [Mass/volume] in Urine by Test strip NOR less alida n 1.0 mg/dL [facility] MICROSCOPIC Not Indicate [facility] H ospital ID Date Data Source [id number] 08/19/2020 01:52:52 PM EDT [facility] Vital SignsBlood Pressure: 138/82 Patient History Medical History:Brain TumorSeizure DisorderDepressionHx of kidney stonesBipolarSurgical History:Partial lobectomyFamily History:No known family historySocial/Personal History: Smoking Status: current some day smokerDo you vape? NoCurrent Problems: Normal examination (ICD-V65.5) (CXW34-C12.1)Dental caries/Impaction of teeth (ICD-521.00) (NZS00-E48.9)Contact dermatitis and other eczema, unspecified cause (ICD-692.9) (PFT70-J07.9)Depression (ICD-311) (VKM68-Q14.9)Seizure Disorder (ICD-780.39) (YSU89-F56.9)Brain Tumor (ICD-191.9) (VPA27-P47.9)Problem list reviewed during this update.Current Medications: SEROQUEL [...] RDH by shailesh (08/19/2020 2:39 PM): ; ayny (Aug 20 2020 7:29AM): [facility](-). CC: none. Reviewed Xrays. Exam: caries detected. [...] Known Allergies (updated 08/19/2020) Orders:Oral Surgery Referral [[id number]] Clinical Visit Summary Declined Name Value Range Interpretation Code Description Data Cecy rce(s) Supporting Document(s) ID Date Data Source [id number] 08/14/2020 07:17:00 PM EDT [facility] 1 Medication Reconciliation Report [facility] Emergency Department [address] [place] [address] Phone #: ext- [phone] 08/14/2020 19:09 Patient: CAMILO BTUTS Sex: M : 1990 Age: 29yWeight: 81.6 [...] rce(s) Supporting Document(s) ID Date Data Source [id number] 08/14/2020 07:17:00 PM EDT [facility] 1 Medication Administration Record [facility] Emergency Department [address] [place] [address] Phone #: ext- [phone] 19:09 Patient: CAMILO BUTTS Sex: M : 1990 Age: 29yWeight: 81.6 kgHeight/Length: 72 inBMI: 24.4ALLERGIES: No Known Drug AllergyDate/Time Medication Administered Medication Ordered Name Value Range Interpretation Code Description Data Cecy rce(s) Supporting Document(s) ID Date Data Source [id number] 08/14/2020 07:17:00 PM EDT [facility] 1 General Instructions [facility] Emergency Department [address] [place] [address] Phone #: ext- [phone] 08/14/2020 19:09 Patient: CAMILO BUTTS Sex: M : 1990 Age: 29y Anxiety reaction. No hyperventilation.INSTRUCTIONS Warnings: GENERAL WARNINGS: Return or contact your physician immediately if your condition worsens or changes unexpectedly, if not improving as expected, or if other problems arise. Understanding of the discharge instructions verbalized by patient. Follow-up with: [facility], , , [address] [place] [address], [id number] Follow up in one week. Call for [...] may experience: Dry mouth 2 General Instructions [facility] Emergency Department [address] [place] [address] Phone #: ext- [phone] 08/14/2020 19:09 Patient: [...] Also, there are certain 3 General Instructions [facility] Emergency Department [address] [place] [address] Phone #: ext- [phone] 08/14/2020 19:09 Patient: CAMILO BUTTS Sex: M : 1990 Age: 29y techniques [...] andtemporary medicine to help you manage stress.Call [phone] if any of these happen: Trouble breathing [...] and mild pain reliever 4 General Instructions [facility] Emergency Department [address] [place] [address] Phone #: ext- [phone] 08/14/2020 19:09 Patient: CAMILO BUTTS Sex: M : 1990 Age: 29y [phone] [employer]. [address] [place] [address]. All rights reserved. This information is not intended as asubstitute for professional medical care. Always follow your healthcare professional's instructions. You have been given the following additional information: Anxiety Reaction(Electronically signed by Pedro Kim, 08/14/2020 20:15) Name Value Range Interpretation Code Description Data Cecy rce(s) Supporting Document(s) ID Date Data Source [id number] 08/14/2020 07:17:00 PM EDT [facility] 1 Clinical Report - Nurses [facility] Emergency Department [address] [place] [address] Phone #: ext- [phone] 08/14/2020 19:09 Patient: CAMILO BUTTS [facility]#: [id number] Sex: M : 1990 Age: 29yTRIAGEHistorian: patient.Acuity: [...] 300 mg) 1/2 tablet, daily at bedtime. --19:08/14/20 Alfonso Buck R.N.AllergiesNo Known Drug Allergy. --19:08/14/20 Alfonso Buck R.N.HistoryPAST MEDICAL HX: No history [...] no barriers. 2 Clinical Report - Nurses [facility] Emergency Department [address] [place] [address] Phone #: ext- [phone] 08/14/2020 19:09 Patient: CAMILO BUTTS Sex: M : 1990 Age: 29y FALL RISK ASSESSMENT: Fall risk assessment completed. No risk factors identified. SKIN INTEGRITY ASSESSMENT: Skin integrity risk assessment completed. No skin integrity risk identified. --19:30 08/14/20 Alfonso Buck R.N. FAMILY HX: No significant family medical history. --19:53 08/14/20 Pedro Kim.PHYSICAL [id number]:35 08/14/20. Ambulatory to room.GENERAL / NEURO / [...] Patient verbalized understanding. Written instructions provided in Vietnamese. The patient was discharged home and unaccompanied at time of discharge. He left ambulatory and via taxi. 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 --20:04 08/14/20 Carito Barry R.N. 20:03 08/14/20. BP: 141/93. MAP: 109. HR: 81. RR: 16. O2 saturation: 98%. Temp: 97.9 F. Pain level now: 0. --20:04 08/14/20 Carito Barry R.N.Locked/Released at 08/14/2020 20:04 by Carito Barry R.N. Name Value Range Interpretation Code Description Data Cecy rce(s) Supporting Document(s) ID Date Data Source [id number] 08/14/2020 07:17:00 PM EDT [facility] 1 Clinical Report - Physicians/Mid Levels [facility] Emergency Department [address] [place] [address] Phone #: ext- [phone] 08/14/2020 19:09 Patient: [...] alone. 2 Clinical Report - Physicians/Mid Levels [facility] Emergency Department [address] [place] [address] Phone #: ext- [phone] 08/14/2020 19:09 Patient: [...] patient. 3 Clinical Report - Physicians/Mid Levels [facility] Emergency Department [address] [place] [address] Phone #: ext- [phone] 08/14/2020 19:09 Patient: CAMILO BUTTS Sex: M : 1990 Age: 29y Follow-up with: [facility], , , [address] [place] [address], [facility] Follow up in one week. Call for an appointment.(Electronically signed by Pedro Kim, 08/14/2020 20:15) Name Value Range Interpretation Code Description Data Cecy rce(s) Supporting Document(s) ID Date Data Source [id number] 05/04/2020 10:53:00 [place] [address] PHONE: [phone] FAX: [phone] Name .................. : BENJAMÍN Navarro Acct Number.................. : [id number] ROOM. ................. : TR-07 MR Number ................... : [id number] Stay type ............. : E/R Discharge Date......... ... : Admit Date ......... : 05/02/20 Admit Phys .................... : SAQIB GRUBBS Date of ....... : 1990 Family Phys ................... : NON STAFF Phone .................. : [phone] Age ................................ : 29 Film# .................. .:[id number] Sex ................................. : M Unsigned transcriptions are preliminary reports and do not represent a medical or legal document CT HEAD W/O CONTRAST [id number] COMPLETE:05/02/20 11:52 KBO [id number] Reason(s): Head Pain CT OF THE HEAD [...] 05/02/20 12:23, Dictation Date: Copy for: PARVEEN ROQUELA via fax Copy for: EMERGENCY DEPT via modem Copy for: 710 MED REC DISCHARGED Page 1 of 1 Name Value Range Interpretation Code Description Data Cecy rce(s) Supporting Document(s) ID Date Data Source [id number] 05/04/2020 10:53:00 AM EDT [facility] [address] [place] [address] PHONE: [phone] FAX: [phone] Name .................. : BENJAMÍN Navarro Acct Number.................. : [id number] ROOM. ................. : TR-07 Number ................... : [id number] Stay type ............. : E/R Discharge Date......... ... : Admit Date ......... : 05/02/20 Admit Phys .................... : SAQIB HUMERA Date of ....... : 1990 Family Phys ................... : NON STAFF Phone .................. : [phone] Age ................................ : 29 Film# .................. .:[id number] Sex ................................. : M Unsigned transcriptions are preliminary reports and do not represent a medical or legal document CHEST PORTABLE [id number] COMPLETE:05/02/20 11:52 KBO 67076 Reason(s): seizure PORTABLE CHEST X-RAY: COMPARISON: 11/06/19 FINDINGS: The cardiac and mediastinal silhouettes appear normal and the lungs are clear. The bones and soft tissues are normal. The upper abdomen is unremarkable. IMPRESSION: No acute disease identifiable. Electronically Reviewed and Signed By Santosh Salguero MD , 05/04/20 10:53, KGG Transcribe Initials: DZ , Transcribe Date: 05/02/20 12:21, Dictation Date: Copy for: PARVEEN GALLAGHER via fax Copy for: EMERGENCY DEPT via modem Copy for: [address] [place] [address] REC DISCHARGED Page 1 of 1 Name Value Range Interpretation Code Description Data Cecy rce(s) Supporting Document(s) ID Date Data Source [id number] 05/03/2020 01:07:00 [place] [address] RESPIRATORY CARE REPORT ==== ---------NAME------- NUMBER SEX AGE ADMIT DISC. XRAY# F/C JULIAN Navarro [id number] M 29 05/02/20 05/02/20 [id number] XBE E/R DATE OF : 1990 M/R# [id number] #: [id number] TR-07 LOCATION: EMERGENCY DEPT EKG 07047 COMPLE TE:05/02/20 14:49 [place] [id number] PHYSICIAN: SAQIB SAINI CH Name Value Range Interpretation Code Description Data Cecy rce(s) Supporting Document(s) ID Date Data Source [id number] 05/02/2020 10:49:00 AM EDT [facility] 1 OrderSheet [facility] Emergency Department [address] [place] [address] Phone #: ext- [phone] 05/02/2020 10:49 Patient: CAMILO BUTTS Sex: M [...] 11:07 Mai Thomas RN P.A.-C;Depakene (Valproic STAT 11:06 05/02/2020 11:07 Gino Thomas) Francisco J Saini RN P.A.-C;Salicylate Level STAT 11:06 05/02/2020 11:07 Angeles Thomas RN P.A.-C;DIAGNOSTIC STUDY ORDERSOrder Description Priority Entered Acknowledged InitialedCT Head W/O Cont STAT 11:06 05/02/2020 11:14 Freddy 2 OrderSheet [facility] Emergency Department [address] [place] [address] Phone #: ext- [phone] 05/02/2020 10:49 Patient: CAMILO BUTTS Sex: M : 1990 Age: 29y(Oxygen?(No)) Francisco J Blanchard RN P.A.-C; NOTES: Seizure Reason for Study: Head PainChest 1 View STAT 11:06 05/02/2020 Initialed: 11:12 Francisco J Cr(Oxygen?(No)) Francisco J Saini Cancelled: Other 11:12 Francisco J Ivory; Parveen P.A.- Shaye Reason for Study: CoughChest Portable 1 STAT [...] Blanchard RN P.A.-C;Blood Pressure 11:11 05/02/2020 11:14 TerryMonitor Francisco J Blanchard RN P.A.-C;Metal Door Assembler 11:11 05/02/2020 11:14 Freddy(continuous) Francisco J Blanchard RN P.A.-C;NPO 11:11 05/02/2020 11:14 Freddy 3 OrderSheet [facility] Emergency Department [address] [place] [address] Phone #: ext- [phone] 05/02/2020 10:49 Patient: [...] RN (16:59 05/02/2020)][Electronically signed by Francisco J Saini P.A.-C (10:57 05/03/2020)][Electronically locked by Freddy Blanchard RN (16:59 05/02/2020)] Name Value Range Interpretation Code Description Data Cecy rce(s) Supporting Document(s) ID Date Data Source [id number] 05/02/2020 10:49:00 AM EDT [facility] 1 Medication Reconciliation Report [facility] Emergency Department [address] [place] [address] Phone #: ext- [phone] 05/02/2020 10:49 Patient: CAMILO BUTTS [facility]#: [id number] Sex: M : 1990 Age: 29yWeight: 83.9 [...] rce(s) Supporting Document(s) ID Date Data Source [id number] 05/02/2020 10:49:00 AM EDT [facility] 1 Medication Administration Record [facility] Emergency Department [address] [place] [address] Phone #: ext- [phone] 05/02/2020 10:49 Patient: CAMIOL BUTTS Sex: M : 1990 Age: 29yWeight: 83.9 kgHeight/Length: 7 inBMI: 2678ALLERGIES: No Known Drug Allergy Date/Time Medication Administered Medication OrderedStart IV NS IV NS : Bolus 500 mL, then 7511:40 05/02/2020 Dose: IV Fluids mL/hrTizaiah Blanchard RN Rate: 75 mL/hr over 5 hour(s)---- Bolus: 500 mL over 30 minute(s)Stop Dispensed: 1000 mL bag13:43 05/02/2020 Site: #1 left Nikhil Blanchard RNGiven TYLENOL [PO] (APAP) Tylenol 1 g PO X1 dose: 1000 mg12:44 05/02/2020 Dose: 1000 mg Tablets PO (NOW x1)Freddy Blanchard RNGiven ATIVAN [PO] (LORAZEPAM) Ativan PO 1 mg12:44 05/02/2020 Dose: 1 mg Tablets Clyde Blanchard RN Name Value Range Interpretation Code Description Data Cecy rce(s) Supporting Document(s) ID Date Data Source [id number] 05/02/2020 10:49:00 AM EDT [facility] 1 General Instructions [facility] Emergency Department [address] [place] [address] Phone #: [phone] nke- [phone] 05/02/2020 10:49 Patient: CAMILO BUTTS Sex: M : 1990 Age: 29yGeneralized seizure [...] discharge instructions verbalized by patient.Follow-up with: [facility], , [id number], [facility] [place], [address] Follow up. Call for the next available [...] change to another medicine. 2 General Instructions [facility] Emergency Department [address] [place] [address] Phone #: ext- [phone] 05/02/2020 10:49 Patient: CAMILO BUTTS Sex: M [...] and/or another type of 3 General Instructions [facility] Emergency Department [address] [place] [address] Phone #: ext- [phone] 05/02/2020 10:49 Patient: [...] Headache that gets worse 4 General Instructions [facility] Emergency Department [address] [place] [address] Phone #: ext- [phone] 05/02/2020 10:49 Patient: CAMILO BUTTS Sex: M : 1990 Age: 29y [id number] [employer]. [address] [place] [address]. All rights reserved. This information is not intended as asubstitute for professional medical care. Always follow your healthcare professional's instructions. You have been given the following additional information: Seizure, Recurrent (Adult) No driving or operating machinery until released.(Electronically signed by Francisco J Saini P.A.-C 05/03/2020 10:57) Name Value Range Interpretation Code Description Data Cecy rce(s) Supporting Document(s) ID Date Data Source [id number] 05/02/2020 10:49:00 AM EDT [facility] 1 Clinical Report - Nurses [facility] Emergency Department [address] [place] [address] Phone #: ext- [phone] 05/02/2020 10:49 Patient: [...] trauma. Did not miss recentdose of anticonvulsant.Treatment COMPLIANCE MGR:None.SEPSIS SCREEN: SIRS Screen negative. Sepsis Screen negative. No suspected or confirmed signs ofinfection present. (10:58 05/02/2020). --10:59 05/02/20 Freddy Blanchard RN10:54 05/02/20. BP: 121/85. MAP: 97. HR: 93. RR: 18. O2 saturation: 96% on room air. Temp: 98.7 F(oral). Pain level now: 0/10. --10:59 05/02/20 Freddy Blanchard RN.Weight: 83.9 kg measured. --10:52 05/02/20 Freddy Blanchard RN.Height/Length: 7 inches. BMI: 2678. --10:52 05/02/20 Freddy Blanchard RN.MedicationsSEROquel Oral (Tablet 300 mg) 1/2 tablet, daily at bedtime. --10:56 05/02/20 Freddy Blanchard RN.AllergiesNo Known Drug Allergy. --10:56 05/02/20 Freddy Blanchard RN.Guxbnfs07:59 05/02/20.PAST MEDICAL HX: Seizures. No history of [...] no deficiencies. 2 Clinical Report - Nurses [facility] Emergency Department [address] [place] [address] Phone #: ext- [phone] 05/02/2020 10:49 Patient: CAMILO BUTTS [facility]#: [id number] Sex: M : 1990 Age: 29y FUNCTIONAL [...] ever tried to hurt yourself before today?". --11:03 05/02/20 Freddy Blanchard RN. Interventions 10:59 05/02/20. Identification band on patient. To room. --10:59 05/02/20 Freddy Blanchard RN.PHYSICAL [id number]:05/02/20. To room via stretcher.GENERAL / NEURO / PSYCH: Alert. Oriented X 4. Speech within normal limits. Patient appearswell- nourished.HEENT: No facial asymmetry noted.RESPIRATORY: Respirations not la bored. Breath sounds within normal limits.CVS: Cardiac rhythm: normal sinus rhythm; (1053). Capillary refill less than 2 seconds.GI / : Abdomen soft and nontender. Bowel sounds within normal limits.SKIN: Skin is warm and dry. --11:01 05/02/20 Freddy Blanchard RN.NURSING PROGRESS NOTES10:38 05/02/2020 Site #1 started prior to arrival by EMS via IV in the left antecubital space with an 20gangiocath; one attempt. Saline lock flushed with 10 mL saline. --11:03 05/02/20 Freddy Blanchard RN 11:03 05/02/20. Cardiac rhythm: normal sinus rhythm; (1050). director sales and marketing, NIBP monitor and pulse oximeter placed on patient; grain sacker- Lead II; monitor alarms on; monitor strip [...] at 75 3 Clinical Report - Nurses [facility] Emergency Department [address] [place] [address] Phone #: ext- [phone] 05/02/2020 10:49 Patient: CAMILO BUTTS A cct#: [id number] Sex: M : 1990 Age: 29ymL/hr over 5 hour(s) via site #1 via IV pump. Allergies verified and confirmed 5 rights. IV patencyestablished. IV site checked: no pain, redness, or swelling. IV flushed thoroughly pre- and post-medicationadministration. Information reviewed with patient. --11:43 05/02/20 Freddy Blanchard, RNChecked patient name and birthdate. Blood samples drawn by tech. (1125). Finger stick glucose: 1140accu check 101. Portable chest x-ray completed. Shown to the PA (1120). Patient transported to [facility] ER with nurse and radiology resident. (1130). Patient returned from CT by stretcher with nurse andradiology tech. (1135). --11:44 05/02/20 Donovan Pretty precautions maintained: side rails up x2 and padded, suction and O2 at bedside, patient in view ofQuantance's station and call abbasi in reach (1050). [...] of head but refusing medication.,). --12:08 05/02/20 Sondra Pretty patient name and birthdate: patient confirmed. Clean catch urine collected with return ofamber-colored urine; sample sent to lab for urinalysis and drug screen. Specimen labeled in the presenceof the patient (1230). --12:34 05/02/20 Freddy Blanchard RN12:44 05/02/2020 Tylenol [...] Blanchard RN 4 Clinical Report - Nurses [facility] Emergency Department [address] [place] [address] Phone #: ext- [phone] 05/02/2020 10:49 Patient: CAMILO BUTTS Sex: M : 1990 Age: 29y 13:34 05/02/2020 Tylenol PO Response: pain is improving. Symptoms have improved the patient feels better. Physician anesthesiology physician assistant notified. --13:34 05/02/20 Freddy Blanchard RN 13:34 05/02/2020 Ativan PO Response: pain is improving. Symptoms have improved the patient feels better. Physician anesthesiology physician assistant notified. --13:34 05/02/20 Freddy Blanchard RN [...] parent verbalized understanding. Written instructions provided in Vietnamese. The patient was discharged by the physician anesthesiology physician assistant. He was discharged home and accompanied by parent. He left ambulatory and via private vehicle. Parent driving. --13:57 05/02/20 Freddy Blanchard RN 13:45 05/02/2020 Site #1 removed upon discharge. Catheter intact. Bandaid applied. --13:58 05/02/20 Freddy Blanchard RN.Locked/Released at 05/02/2020 16:59 by Freddy Blanchard RN Name Value Range Interpretation Code Description Data Cecy rce(s) Supporting Document(s) ID Date Data Source [id number] 05/02/2020 10:49:00 AM EDT [facility] 1 Clinical Report - Physicians/Mid Levels [facility] Emergency Department [address] [place] [address] Phone #: ext- [phone] 05/02/2020 10:49 Patient: CAMILO BUTTS [facility]#: [id number] Sex: M : 1990 Age: 29y Time [...] tumor. See old chart. Problems: Insomnia [Chronic]. Sinclair disorder. Lifestyle / Substance Problems. Neurological Disease. Bipolar Disorder. Obsessive Compulsive Disorder. ADHD - Attention Deficit Hyperactivity Disorder. Seizure. Tendonitis. STD - Sexually Transmitted Disease. 2 Clinical Report - Physicians/Mid Levels [facility] Emergency Department [address] [place] [address] Phone #: ext- [phone] 05/02/2020 10:49 Patient: CAMILO BUTTS [facility]#: [id number] Sex: M : 1990 Age: 29y Tbi. [...] posterior tibial 2+. 3 Clinical Report - Physicians/Mid Levels [facility] Emergency Department [address] [place] [address] Phone #: ext- [phone] 05/02/2020 10:49 Patient: CAMILO BUTTS [facility]#: [id number] Sex: M : 1990 Age: 29y Respiratory: [...] In Progress CHEST PORTABLE Reason(s): seizure TRANSPORTATION: WC IV? O2? Oxygen?(No) Room: ED Exam CHEST PORTABLE [facility] [address] [place] [address] PHONE: [phone] FAX: [phone] Name .................. : BENJAMÍN Navarro Acct Number.................. : [id number] ROOM. ................. : TR-07 MR Number ................... : [id number] Stay type ............. : E/R Discharge Date......... ... : Admit Date ......... : 05/02/20 Admit Phys .................... : SAQIB GRUBBS Date of ....... : 1990 Family Phys ................... : NON STAFF Phone .................. : [phone] Age ................................ : 29 Film# .................. .:[id number] Sex ................................. : M Unsigned transcriptions are preliminary reports and do not represent a medical or legal document CHEST PORTABLE [id number] COMPLETE:05/02/20 11:52 KBO 02606 Reason(s): seizure 4 Clinical Report - Physicians/Mid Levels [facility] Emergency Department [address] [place] [address] Phone #: ext- [phone] 05/02/2020 10:49 Patient: CAMILO BUTTS Sex: M : 1990 Age: 29y PORTABLE CHEST X-RAY: COMPARISON: 11/06/19 FINDI NGS: The cardiac and mediastinal silhouettes appear normal and the lungs are clear. The bones and soft tissues are normal. The upper abdomen is unremarkable. IMPRESSION: No acute disease identifiable. Electronically Reviewed and Signed By DCTNAME , [...] NEGAT 5 Clinical Report - Physicians/Mid Levels [facility] Emergency Department [address] [place] [address] Phone #: ext- [phone] 05/02/2020 10:49 Patient: CAMILO BUTTS Sex: M [...] PRESUMPTIVE POSITIVE CONFIRMATION WILL BE PERFORMED AT [facility].CMP: (LULU: 05/02/2020 11:13) ( MsgRcvd 05/02/2020 11:44) [...] Male GFR Interprentation 20-49 yrs >60 mL/min Hgnumf15-94 yrs >56 mL/min Normal 60-69 yrs >49 mL/min Normal 70-79yrs>42 mL/min Normal 80 and above >35 mL/min Normal Female GFRInterpretation 20-39 yrs >60 mL/min Normal 40-49 yrs >58 mL/minNormal 50-59 yrs >51 mL/min Normal 60-69 yrs >45 mL/min Kghfbf99-14 yrs >39 mL/min Normal 80 and above [...] 34.0) 6 Clinical Report - Physicians/Mid Levels [facility] Emergency Department [address] [place] [address] Phone #: ext- [phone] 05/02/2020 10:49 Patient: [...] MORPH NOT INDICATEDCPK: (LULU: 05/02/2020 11:13) ( [facility] 05/02/2020 11:44) Final results Test Result Flag Units (Reference) CPK 204 H U/L (30 - 170)Acetaminophen Level: (LULU: 05/02/2020 11:13) ( [facility] 05/02/2020 11:41) Final results Test Result Flag Units (Reference) ACETAMINOPHEN <5.0 UG/ML (0.0 - 30.0)Salicylate Level: (LULU: 05/02/2020 11:13) ( [facility] 05/02/2020 11:44) Final results Test Result Flag Units (Reference) SALICYLATE <0.3 L mg/dL (2.0 - 20.0)CT Head W/O Cont: (LULU: 05/02/2020 11:06) ( [facility] 05/02/2020 12:26) In ProgressCT HEAD W/O CONTRASTReason(s): Head PainTRANSPORTATION: WC IV? O2? Oxygen?(No) Room: ED CMTS: Seizure Exam CT HEAD W/[place] [address] PHONE: [phone] FAX: [phone] Name .................. : BENJAMÍN Navarro Acct Number.................. : [id number] ROOM. ................. : [facility] MR Number ................... : [id number] Stay type ............. : E/R Discharge Date......... ... : Admit Date ......... : 05/02/20 Admit Phys .................... : SAQIB HUMERA Date of ....... : 1990 Family Phys ................... : NON STAFF Phone .................. : [phone] Age ................................ : 29 Film# .................. .:[id number] Sex ................................. : M Unsigned transcriptions are preliminary reports and do not represent a medical or legal document CT HEAD W/O CONTRAST [id number] COMPLETE:05/02/20 11:52 KBO 73957 Reason(s): Head Pain 7 Clinical Report - Physicians/Mid Levels [facility] Emergency Department [address] [place] [address] Phone #: ext- [phone] 05/02/2020 10:49 Patient: CAMILO BUTTS [facility]#: [id number] Sex: M : 1990 Age: 29y CT [...] Reviewed and Signed By DCTNAME , SIGNDATE, KGG Transcribe Initials: FIORELLA , Transcribe Date: 05/02/20 12:23, Dictation Date: <<REPDIST>> Page 1 of 1 Chest 1 View: (LULU: 05/02/2020 11:06) ( MsgRcvd 05/02/2020 11:12) Canceled Reason(s): Cough Reason(s): Cough TRANSPORTATION: WC IV? O2? Oxygen?(No) Room: ED.PROGRESS AND PROCEDURESCourse [...] a 8 Clinical Report - Physicians/Mid Levels [facility] Emergency Department [address] [place] [address] Phone #: ext- [phone] 05/02/2020 10:49 Patient: CAMILO BUTTS Sex: M [...] cause, 9 Clinical Report - Physicians/Mid Levels [facility] Emergency Department [address] [place] [address] Phone #: ext- [phone] 05/02/2020 10:49 Patient: CAMILO BUTTS Sex: M : 1990 Age: 29yINSTRUCTIONS Take [...] instructions verbalized by patient. Follow-up with: [facility], , [id number], [address] [place], [address] Follow up. Call for the next available appointment. Reason for referral: evaluation and treatment.(Electronically signed by Francisco J Saini P.A.-C 05/03/2020 10:57) Name Value Range Interpretation Code Description Data Cecy rce(s) Supporting Document(s) ID Date Data Source [id number] 05/02/2020 12:52:00 PM EDT [facility] Name Value Range Interpretation Code Description Data Cecy rce(s) Supporting Document(s) DRUG SCREEN URINE [facility] URINE DRUG SCREEN Amphetamine [Presence] in Urine by Screen method NEGATIVE NORMAL: N EGATIVE [facility] BARBITURATES NEGATIVE NORMAL: NEGATIVE [facility] BENZO NEGATIVE NORMAL: NEGATIVE [facility] COCAINE NEGATIVE NORMAL: NEGATIVE [facility] Tetrahydrocannabinol [Presence] in Urine NEGATIVE NORMAL: NEGATIVE [facility] OPIATES NEGATIVE NORMAL: NEGATIVE [facility] Phencyclidine [Presence] in Urine by Screen method NEGATIVE NOR MAL: NEGATIVE [facility] \\BLDo\\URINE DRUG SCR EEN INTERPRETATION\\BLDx\\ THE CUTOFFF LEVELS FOR DETECTION ARE FOLLOWS: AMPHETAMINES 1000 ng/ml BARBITUARATES 200 ng/ml BENZODIAZEPINES 100 ng/ml THC 50 ng/ml PHENCYCLIDINE 25 ng/ml OPIATES 300 ng/ml COCAINE 300 ng/ml ALL POSITIVES ARE CONSIDERED PRESUMPTIVE POSITIVE CONFIRMATION WILL BE PERFORMED AT PHYSICIAN REQUEST. ID Date Data Source [id number] 05/02/2020 12:52:00 PM EDT [facility] Name Value Range Interpretation Code Description Data Cecy rce(s) Supporting Document(s) URINALYSIS [facility] akanksha URINALYSIS SOURCE R [facility] al COLOR yellow NORMAL: Yellow [facility] CLARITY clear NORMAL: Clear [facility] Specific gravity of Urine by Test strip 1.020 1.001 - 1.030 [facility] pH 6 5 - 9 [facility] al Glucose [Mass/volume] in Urine by Test strip NORM NORMAL: Negat [facility] Bilirubin.total [Presence] in Urine by Test strip NEG NORMAL: Negative [facility] Ketones [Presence] in Urine by Test strip NEG NORMAL: Negative [facility] Protein [Mass/volume] in Urine by Test strip 15 NORMAL: Negat [facility] Nitrite [Presence] in Urine by Test strip NEG NORMAL: Negative [facility] BLOOD NEG NORMAL: Negative [facility] Leukocyte esterase [Presence] in Urine by Test strip NEG TR[place] L: Negative [facility] Urobilinogen [Mass/volume] in Urine by Test strip NOR less alida n 1.0 mg/dL [facility] MICROSCOPIC See Below [facility] Hosp ital WBC 0 - 1 NORMAL: NONE SEEN [facility] Erythrocytes [#/volume] in Urine by Test strip 0 - 1 NORMAL: NON E SEEN [facility] EPITHELIAL FEW NORMAL: NONE SEEN [facility] Bacteria [Presence] in Urine sediment by Light microscopy Tr mela NORMAL: NONE SEEN [facility] ID Date Data Source [id number] 05/06/2020 06:25:00 AM EDT [facility] Name Value Range Interpretation Code Description Data Cecy rce(s) Supporting Document(s) Prolactin [Mass/volume] in Serum or Plasma 12.7 ng/mL 4.0-15.2 [facility] ID Date Data Source [id number] 05/05/2020 08:12:00 AM EDT [facility] Name Value Range Interpretation Code Description Data Cecy rce(s) Supporting Document(s) Valproate [Mass/volume] in Serum or Plasma <4 ug/mL 50-100 L [facility] Verified by repeat analysis Detection Limit = 4 <4 indicates None Detected Toxicity may occur at levels of 100-500. Measurements of free unbound valproic acid may improve the assess- ment of clinical response. ID Date Data Source [id number] 05/02/2020 11:44:00 AM EDT [facility] Name Value Range Interpretation Code Description Data Cecy rce(s) Supporting Document(s) SALICYLATE <0.3 mg/dL 2.0 - 20.0 L [facility] ID Date Data Source [id number] 05/02/2020 11:44:00 AM EDT [facility] Name Value Range Interpretation Code Description Data Cecy rce(s) Supporting Document(s) Creatine kinase [Enzymatic activity/volume] in Serum or Plasma 2 04 U/L 30 - 170 H [facility] ID Date Data Source [id number] 05/02/2020 11:44:00 AM EDT [facility] Name Value Range Interpretation Code Description Data Cecy rce(s) Supporting Document(s) COMPREHENSIVE METABOLIC PANEL [facility] COMPREHENSIVE METABOLIC PANEL Sodium [Moles/volume] in Serum or Plasma 138 mEq/L 134 - 153 [facility] Potassium [Moles/volume] in Serum or Plasma 3.9 mEq/L 3.6 - 5.0 [facility] Chloride [Moles/volume] in Serum or Plasma 105 mEq/L 98 - 107 [facility] Carbon dioxide, total [Moles/volume] in Serum or Plasma 21 MEQ/L 22 - 30 L [facility] Glucose [Mass/volume] in Serum or Plasma 112 MG/DL 65 - 110 H [facility] BUN 10 MG/DL 7 - 21 [facility] al Creatinine [Mass/volume] in Serum or Plasma 0.6 MG/DL 0.7 - 1.5 L [facility] BUN/CREAT 17 8 - 27 [facility] Protein [Mass/volume] in Serum or Plasma 6.6 G/DL 6.3 - 8.2 [facility] Albumin [Mass/volume] in Serum or Plasma 4.4 G/DL 3.9 - 5.0 [facility] Globulin [Mass/volume] in Serum by calculation 2.2 GM/DL 2.4 - 3.2 L [facility] A/G RATIO 2.0 0.8 - 2.0 [facility] Calcium [Mass/volume] in Serum or Plasma 8.7 MG/DL 8.4 - 10.2 [facility] Bilirubin.total [Mass/volume] in Serum or Plasma <0.7 MG/DL 0.2 - 1.3 [facility] Alkaline phosphatase [Enzymatic activity/volume] in Serum or Plasma 112 U/L 38 - 126 [facility] Aspartate aminotransferase [Enzymatic activity/volume] in Serum or Plasma 25 U/L 5 - 40 [facility] Alanine aminotransferase [Enzymatic activity/volume] in Seru m or Plasma 28 U/L 7 - 56 [facility] Anion gap 3 in Serum or Plasma 12.0 mmol/L 8.0 - 16.0 [facility] AGE 29 yrs [facility] al NON-AA GFR >60 mL/min [facility] ital AFR AMER GFR >60 mL/min [facility] Ho spital Male GFR In terprentation 20-49 [...] >32 mL/min Normal ID Date Data Source [id number] 05/02/2020 11:41:00 AM EDT [facility] Name Value Range Interpretation Code Description Data Cecy rce(s) Supporting Document(s) Acetaminophen [Presence] in Urine <5.0 UG/ML 0.0 - 30.0 [facility] ID Date Data Source [id number] 05/02/2020 11:40:00 AM EDT [facility] Name Value Range Interpretation Code Description Data Cecy rce(s) Supporting Document(s) CBC W/AUTOMATED DIFF [facility] COMPLETE BLOOD COUNT Leukocytes [#/volume] in Blood by Automated count 6.9 10^3/uL 4.2 - 1 1.0 [facility] Erythrocytes [#/volume] in Blood by Automated count 5.08 10^6/uL 4. 50 - 6.30 [facility] Hemoglobin [Mass/volume] in Blood 15.1 g/dL 14.0 - 16.0 [facility] Hematocrit [Volume Fraction] of Blood by Automated count 44.7 % 4 1.0 - 51.0 [facility] Erythrocyte mean corpuscular volume [Entitic volume] by Auto mated count 88.0 fL 80.0 - 94.0 [facility] Erythrocyte mean corpuscular hemoglobin [Entitic mass] by Automated count 29.7 pg 27.0 - 34.0 [facility] Erythrocyte mean corpuscular hemoglobin concentration [Mass/volume] by Automated count 33.8 g/dL 31.0 - 36.0 [facility] Erythrocyte distribution width [Ratio] by Automated count 12.4 % 11.5 - 14.8 [facility] Platelets [#/volume] in Blood by Automated count 255 10^3/uL 150 - 45 0 [facility] Platelet mean volume [Entitic volume] in Blood by Automated count 9.9 fL 7.4 - 10.4 [facility] Neutrophils/100 leukocytes in Blood by Automated count 74.4 % 37. 0 - 80.0 [facility] Lymphocytes/100 leukocytes in Blood by Manual count 14.6 % 25.0 - 40.0 L [facility] Monocytes/100 leukocytes in Blood by Automated count 7.5 % 3.0 - 8.0 [facility] Eosinophils/100 leukocytes in Blood by Automated count 1.9 % 0.0 - 7.0 [facility] Basophils/100 leukocytes in Blood by Automated count 0.6 % 0.0 - 2.0 [facility] %IG 1.0 % 0.0 - 0.0 H [facility] al %NRBC 0.0 % 0.0 - 0.0 [facility] al Neutrophils [#/volume] in Blood by Automated count 5.15 10^3/uL 2.00 - 6.90 [facility] Lymphocytes [#/volume] in Blood by Automated count 1.01 10^3/uL 0.60 - 3.40 [facility] Monocytes [#/volume] in Blood by Automated count 0.52 10^3/uL 0.00 - 0.90 [facility] Eosinophils [#/volume] in Blood by Automated count 0.13 10^3/uL 0.00 - 0.70 [facility] Basophils [#/volume] in Blood by Automated count 0.04 10^3/uL 0.00 - 0.20 [facility] #IG 0.07 10^3/uL 0.00 - 0.10 [facility] H ospital #NRBC 0.00 10^3/uL 0.00 - 0.00 [facility] H ospital MANUAL DIFF NOT INDICATED [facility] RBC MORPH NOT INDICATED [facility] spital ID Date Data Source [id number] 12/11/2019 07:07:00 PM EST [facility] 1 OrderSheet [facility] Emergency Department [address] [place] [address] Phone #: ext- [phone] 12/11/2019 19:05 Patient: CAMILO BUTTS Sex: M : 1990 Age: 29yWEIGHT:88.4 kg (M) HEIGHT:72 inches (S) BMI:26.5ALLERGIES: No Known Drug AllergyDIAGNOSIS: Sexually transmitted infectious diseaseLAB ORDERSOrder Description Priority Entered Acknowledged InitialedUrinalysis (Clean STAT 19:23 12/11/2019 19:25 Rodrigo Hernandez R.N.;Chlamydia/GC STAT 19:23 12/11/2019 Ack'd: 19:25 19:29 Rupert Ross Tamra R.N. Jennifer R.N. PA;Syphilis 19:23 12/11/2019 Ack'd: 19:25 19:29 Rupert Ross Tamra R.N. Jennifer R.N. PA;HIV Panel STAT 19:23 12/11/2019 Ack'd: 19:25 19:29 Rupert [...] rce(s) Supporting Document(s) ID Date Data Source [id number] 12/11/2019 07:07:00 PM EST [facility] 1 Medication Reconciliation Report [facility] Emergency Department [address] [place] [address] Phone #: ext- [phone] 12/11/2019 19:05 Patient: [...] Value Range Interpretation Code Description Data Cecy [facility](s) Supporting Document(s) ID Date Data Source [id number] 12/11/2019 07:07:00 PM [place] [address] Medication Administration Record [facility] Emergency Department [address] [place] [address] Phone #: ext [phone] 19:05 Patient: CAMILO BUTTS Sex: M : 1990 Age: 29yWeight: 88.4 kgHeight/Length: 72 inBMI: 26.5ALLERGIES: No Known Drug AllergyDate/Time Medication Administered Medication Ordered Name Value Range Interpretation Code Description Data Cecy rce(s) Supporting Document(s) ID Date Data Source [id number] 12/11/2019 07:07:00 PM [facility] 1 General Instructions [facility] Emergency Department [address] [place] [address] Phone #: ext- [phone] 12/11/2019 19:05 Patient: CAMILO BUTTS [facility] [id number] Sex: M : 1990 Age: 29yChlamydia; gonorrhea; [...] positive, contact your healthcare provider, local clinic, [facility] department to be treated, or return to our facility. You will be prescribed antibiotic medicine. Be sure to take all of the antibiotic as prescribed until it is gone or you are told to stop. Keep taking it even if you feel better. 2 General Instructions [facility] Emergency Department [address] [place] [address] Phone #: [phone] [id number]- [phone] 12/11/2019 19:05 Patient: CAMILO BUTTS [facility]#: [id number] Sex: M : 1990 Age: 29y Both [...] up with your provider or the [facility] for complete STI screening, including HIV testing, and to consider ways to prevent HIV.For more information about STIs, call the CDC information line at 191-095-2547 or look at the [employer] online.When to seek medical adviceCall your healthcare [...] p ain or scrotal swelling in men 2223-2199 [employer]. [address] [place] [address]. All rights reserved. This information is not intended as asubstitute for professional medical care. Always follow your healthcare professional's instructions. You have been given the following additional information: Testing for Suspected STI 3 General Instructions [facility] Emergency Department [address] [place] [address] Phone #: ext- [phone] 12/11/2019 19:05 Patient: CAMILO BUTTS Sex: M : 1990 Age: 29y(Electronically signed by HUMERA Kan 12/11/2019 21:47) Name Value Range Interpretation Code Description Data Cecy rce(s) Supporting Document(s) ID Date Data Source [id number] 12/11/2019 07:07:00 PM EST [facility] 1 Clinical Report - Nurses [facility] Emergency Department [address] [place] [address] Phone #: rdz- [phone] 12/11/2019 19:05 Patient: CAMILO BUTTS Sex: M : 1990 Age: 29yTRIAGEArrived by private vehicle. Historian: patient. Accompanied by (Dropped off by Medicaid cab).Triage time: 19:05 12/11/2019. Acuity: LEVEL 5.Chief Complaint: (Requests STD testing).Alert.This started today. ( Pt states "i would like to make sure i don't have no diseases". Pt denies anysymptoms;). ( Pt very vague during triage/angry/aggressvie).Treatment COMPLIANCE MGR:None.SEPSIS SCREEN: NEGATIVE. Negative (no infection suspected/documented). (19:10 [...] 12/11/19 Kathryn Ross R.N.ADDITIONAL SURGERIES:Tumor removal/cranial surgery. --19:12/11/19 Kathryn Ross R.N.HistoryPAST MEDICAL HX: Immunizations: status is unknown.SOCIAL HX: Never smoker. No alcohol use or drug use. He was offered HIV testing, accepted and oral 2 Clinical Report - Nurses [facility] Department [address] [place] [address] Phone #: ext- [phone] 12/11/2019 19:05 Patient: [...] lesions noted.SKIN: Skin is warm and dry. --19:15 12/11/19 Kathryn Ross R.N.NURSING PROGRESS NOTESReassurance given. Three patient identifiers checked. Call light placed in reach. Side rails up x 2. Bedplaced in lowest position. Brakes of bed on. Patient ready for evaluation- PA notified. --19:15 12/11/19Kathryn Ross R.N. Patient ID band checked for patient name and birthdate: patient confirmed. Instructions provided to collect clean catch urine and patient verbalized understanding. Clean catch urine collected; sample sent to lab for urinalysis. Specimen labeled in the presence of the patient. --19:29 12/11/19 Kathryn Ross R.N. The patient reports no complaints. --19:55 12/11/19 Lolis Hernandez R.N. 3 Clinical Report - Nurses [facility] Emergency Department [address] [place] [address] Phone #: ext- [phone] 12/11/2019 19:05 Patient: CAMILO BUTTS Sex: M : 1990 Age: 29yDISPOSITION / DISCHARGE Departure time: 19:56 12/11/2019. Condition at departure: stable. No learning barriers present. Reviewed warnings. Reviewed medication(s). Treatments reviewed. Reviewed referrals. Patient verbalized understanding. Written instructions provided in Vietnamese. The patient was discharged by the physician anesthesiology physician assistant. He was discharged home and unaccompanied [...] rce(s) Supporting Document(s) ID Date Data Source [id number] 12/11/2019 07:07:00 PM [facility] 1 Clinical Report - Physicians/Mid Levels [facility] Emergency Department [address] [place] [address] Phone #: ext- [phone] 12/11/2019 19:05 Patient: CAMILO BUTTS Sex: M [...] Normal inspection. 2 Clinical Report - Physicians/Mid [facility] Emergency Department [address] [place] [address] Phone #: ext- [phone] 12/11/2019 19:05 Patient: CAMILO BUTTS Sex: M [...] MICROSCOPIC Not Indicate.PROGRESS AND PROCEDURESCourse of Care: 19:23 Dec 11 2019. Evaluation after observation. (Pt is erratic and irrational, has nosymptoms, but demands STD testing. Seems like the path of least resistance to perform lab testing vs.physical altercation and law enforcement involvement.). Patient counseled in person regarding the patient's stable condition, diagnosis and need for follow-up. Patient agrees with plan of care. 19:25 Dec 11 2019. Disposition: Discharged home in good and improved condition (19:25 Dec 11 2019).CLINICAL IMPRESSION Chlamydia; gonorrhea; syphilis; HIV with asymptomatic disease (STD Testing).INSTRUCTIONS 3 Clinical Report - Physicians/Mid Levels [facility] Emergency Department [address] [place] [address] Phone #: ext- [phone] 12/11/2019 19:05 Patient: CAMILO BUTTS Sex: M [...] rce(s) Supporting Document(s) ID Date Data Source [id number] 12/13/2019 08:10:00 AM [facility] Name Value Range Interpretation Code Description Data Cecy rce(s) Supporting Document(s) HIV 1+2 Ab+HIV1 p24 Ag [Presence] in Serum or Plasma b y Immunoassay Non Reactive Non Reactive [facility] ID Date Data Source [id number] 12/11/2019 08:51:00 PM [facility] Name Value Range Interpretation Code Description Data Cecy rce(s) Supporting Document(s) Treponema pallidum Ab [Presence] in Serum NON-REACTIVE NORMAL:NON MELBA CTIVE [facility] ID Date Data Source [id number] 12/14/2019 06:49:00 PM [facility] Name Value Range Interpretation Code Description Data Cecy rce(s) Supporting Document(s) Chlamydia trachomatis rRNA [Presence] in Unspecified specimen by Probe and target amplification method Negative Negative [facility] Neisseria gonorrhoeae rRNA [Presence] in Unspecified specimen by Probe and target amplification method Negative Negative [facility] ID Date Data Source [id number] 12/11/2019 07:34:00 PM [facility] Name Value Range Interpretation Code Description Data Cecy rce(s) Supporting Document(s) URINALYSIS [facility] akanksha URINALYSIS SOURCE R [facility] COLOR yellow NORMAL: Yellow [facility] CLARITY clear NORMAL: Clear [facility] Specific gravity of Urine by Test strip 1.010 1.001 - 1.030 [facility] pH 6 5 - 9 [facility] Gl[facility] [Mass/volume] in Urine by Test strip NORM NORMAL: Negat delia [facility] Bilirubin.total [Presence] in Urine by Test strip NEG NORMAL: Negative [facility] Ketones [Presence] in Urine by Test strip NEG NORMAL: Negative [facility] Protein [Mass/volume] in Urine by Test strip NEG NORMAL: Negat delia [facility] Nitrite [Presence] in Urine by Test strip NEG NORMAL: Negative [facility] BLOOD NEG NORMAL: Negative [facility] Leukocyte esterase [Presence] in Urine by Test strip NEG TR[place] L: Negative [facility] Urobilinogen [Mass/volume] in Urine by Test strip NOR less alida n 1.0 mg/dL [facility] MICROSCOPIC Not Indicate [facility] ospital ID Date Data Source [id number] 11/07/2019 08:51:00 [place] [address] RESPIRATORY CARE REPORT ==== ---------NAME------- NUMBER SEX AGE ADMIT DISC. XRAY# F/C JULIAN Navarro [id number] 29 11/06/19 11/06/19 [id number] XBE E/R DATE OF : 1990 M/R# [id number] #: [id number] TR-07 LOCATION: EMERGENCY DEPT EKG [id number] COMP LETE:11/07/19 03:07 [place] [id number] PHYSICIAN: SOLEDAD SAINI CH Name Value Range Interpretation Code Description Data Cecy rce(s) Supporting Document(s) ID Date Data Source [id number] 11/07/2019 04:06:00 [place] [address] PHONE: [phone] FAX: [phone] Name .................. : BENJAMÍN Navarro Acct Number.................. : [id number] ROOM. ................. : TR-07 MR Number ................... : [id number] Stay type ............. : E/R Discharge Date......... ... : 11/06/19 Admit Date ......... : 11/06/19 Admit Phys .................... : AMERNATH L Date of ....... : 1990 Family Phys ................... : NON STAFF Phone .................. : [phone] Age ................................ : 29 Film# .................. .:[id number] Sex ................................. : M Unsigned transcriptions are preliminary reports and do not represent a medical or legal document CHEST 2 VIEWS [id number] COMPLETE:11/06/19 14:30 KBO 83591 Reason(s): transient lightheadedness; resolved CHEST X-RAY: 2- VIEWS INDICATION: Transient lightheadedness, which has now resolved. FINDINGS: The cardiac and mediastinal silhouettes appear normal and the lungs are clear. The bones and soft tissues are normal. The upper abdomen is unremarkable. IMPRESSION: No acute disease identifiable. Electronically Reviewed and Signed By Kevin Ponce M.D. , 11/07/19 16:06, [facility] Transcribe Initials: FIORELLA , Transcribe Date: 11/06/19 18:06, Dictation Date: Copy for: PARVEEN GALLAGHER via fax Copy for: EMERGENCY DEPT via modem Copy for: 710 MED REC DISCHARGED Page 1 of 1 Name Value Range Interpretation Code Description Data Cecy rce(s) Supporting Document(s) ID Date Data Source [id number] 11/06/2019 10:57:00 AM EST [facility] 1 OrderSheet [facility] Emergency Department [address] [place] [address] Phone #: ext- [phone] 11/06/2019 10:53 Patient: CAMILO BUTTS Sex: M : 1990 Age: 29yWEIGHT:87.2 kg (M) HEIGHT:69 inches (E) BMI:28.4ALLERGIES: No Known Drug AllergyLAB ORDERSOrder Description Priority Entered Acknowledged InitialedCBC w Diff STAT 11:22 11/06/2019 11:28 [place] Francisco J Saini design printing machine set up operator, Cornelio ER P.A.-C; [id number] STAT 11:22 11/06/2019 11:28 [place] Francisco J Saini design printing machine set up operator, Cornelio BENNETT P.A.-C; [id number] (Clean STAT 11:22 11/06/2019 11:28 [facility]) Francisco J Saini design printing machine set up operator, Cornelio BENNETT P.A.-C; [id number] Nasal A B STAT 11:22 11/06/2019 11:50 January Francisco J Lawson.N. P.A.-C;HIV RNA Quant STAT 11:22 11/06/2019 11:43 [place] Francisco J Saini design printing machine set up operator, Cornelio BENNETT P.A.-C; Tech1 NOTES: ER HIV lab; pt requests. Need waiver signedDIAGNOSTIC STUDY ORDERSOrder Description Priority Entered Acknowledged InitialedChest 2 View STAT 11:57 11/06/2019 12:01 January(Oxygen?(No)) Francisco J Saini R.N. P.A.-C; Reason for Study: transient lightheadedness; resolvedMEDICATION/IV/DRIP/FLUID ORDERSOrder Description Priority Entered Acknowledged InitialedIV NS : Bolus 500 11:11/06/2019 Cancelled: Patient Refusal 11:50 Em,mL, then 125 mL/hr Francisco J Carrasquillo R.N., P.A.-C;GENERAL ORDERSOrder Description Priority Entered Acknowledged InitialedNPO 11:22 11/06/2019 11:33 Neida Strickland R.N., P.A.-C; 2 OrderSheet [facility] Emergency Department [address] [place] [address] Phone #: [phone] mxv- [phone] 11/06/2019 10:53 Patient: CAMILO BUTTS Sex: M : 1990 Age: 29ySaline Lock 11:11/06/2019 Cancelled: Patient Refusal 11:50 Francisco J Strickland R.N.;EKG 11:11/06/2019 Ack'd: 11:30 11:43 Ruthann Saini [place] design printing machine set up operator, design printing machine set up operator, Cornelio BENNETT P.A.-C; Cornelio BENNETT Tech1 Tech1[Electronically signed by Neida Strickland R.N. (:11/06/2019)][Electronically signed by Francisco J Saini P.A.-C (01:11/07/2019)][Electronically locked by Neida Strickland R.N. (13:11/06/2019)] Name Value Range Interpretation Code Description Data Cecy rce(s) Supporting Document(s) ID Date Data Source [id number] 11/06/2019 10:57:00 AM EST [facility] 1 Medication Reconciliation Report [facility] Emergency Department [address] [place] [address] Phone #: ext- [phone] 11/06/2019 10:53 Patient: [...] Name Value Range Interpretation Code Description Data [facility](s) Supporting Document(s) ID Date Data Source [id number] 11/06/2019 10:57:00 AM EST [facility] 1 Medication Administration Record [facility] Emergency Department [address] [place] [address] Phone #: ext- [phone] 10:53 Patient: CAMILO BUTTS Sex: M : 1990 Age: 29yWeight: 87.2 kgHeight/Length: 69 inBMI: 28.4ALLERGIES: No Known Drug AllergyDate/Time Medication Administered Medication Ordered Name Value Range Interpretation Code Description Data Cecy [facility](s) Supporting Document(s) ID Date Data Source [id number] 11/06/2019 10:57:00 AM EST [facility] 1 General Instructions [facility] Emergency Department [address] [place] [address] Phone #: ext- [phone] 11/06/2019 10:53 Patient: [...] verbalized by patient.(Electronically signed by Francisco J Saini P.A.-C 11/07/2019 01:28) Name Value Range Interpretation Code Description Data Cecy rce(s) Supporting Document(s) ID Date Data Source [id number] 11/06/2019 10:57:00 AM EST [facility] 1 Clinical Report - Nurses [facility] Emergency Department [address] [place] [address] Phone #: ymb- [phone] 11/06/2019 10:53 Patient: CAMILO BUTTS Sex: M : 1990 Age: 29yTRIAGEHistorian: patient.Triage time: 10:53 11/06/2019. Acuity: LEVEL 3.Chief Complaint: (lightheaded.).Alert. No acute distress.( pt c/o being lightheaded for past hour. denies n/v/d, denies head injury, denies etoh.).SEPSIS SCREEN: NEGATIVE. Negative (no infection suspected/documented). --10:57 11/06/19 R.N.10:53 11/06/19. BP: 130/92. MAP: 104. HR: 80. RR: 17. O2 saturation: 98%. Temp: 97.1 F. Pain levelnow: 0/10. --10:57 11/06/19 January, R.N.Weight: 87.2 kg measured. Height/Length: 69 inches Estimated. BMI: 28.4. --10:52 11/06/19January,R.N.MedicationsSEROquel Oral. --10:54 11/06/19January RBrittN.AllergiesNo Known Drug Allergy. --10:54 11/06/19 January RBrittN.PROBLEMS:Ocd.Paranoid schizophrenia.Tbi. --10:56 11/06/19 Gayle January RBrittN.ADHD - Attention Deficit Hyperactivity Disorder. --11:20 11/06/19 Compa Logan.-CThe following entry was modified by Compa Logan.-C, 11:20 11/06/19ADHD - Attention Deficit Hyperactivity Disorder. --10:55 11/06/19 Gayle January RBrittN..ADDITIONAL SURGERIES:Brain surgery (Removed tumors). --10:56 11/06/19 Em January RBrittN.HistorySOCIAL HX: Never smoker. No alcohol use or drug use. He was offered HIV testing, accepted andwritten consent was obtained. He has not traveled outside the [place]Infectious disease exposure: No infectious disease exposure. Patient is not a known carrier of tuberculosis,hepatitis, HIV, MRSA or VRE. Patient is not a known carrier of CRE. 2 Clinical Report - Nurses [facility] Emergency Department [address] [place] [address] Phone #: ext- [phone] 11/06/2019 10:53 Patient: CAMILO BUTTS [facility]#: [id number] Sex: M : 1990 Age: 29y SELF [...] integrity risk identified. --10:57 11/06/19 Neida Strickland RShirley. Interventions To treatment room. --10:57 11/06/19 Neida Strickland RShirley.PHYSICAL ASSESSMENT( pt has several layers of clothing, [...] Normal skin turgor. --11:04 11/06/19 Neida Strickland RShirley.NURSING PROGRESS NOTESPatient gowned. Head of bed elevated. Reassurance given. Bed placed in lowest position. Brakes ofbed on. Patient ready for evaluation- ED physician notified. --10:57 11/06/19 Neida Strickland R.N. EKG time: (11:39 11/06/2019). EKG was performed by a tech and shown to the PA. --11:43 11/06/19 [place] design printing machine set up operatorCornelio ER Tech1 11:40 11/06/19. Patient ID band checked for patient name and birthdate: patient confirmed. Flu swab obtained by RN via nasal swab. Labeled in the presence of the patient and sent to lab. --11:50 11/06/19 Neida Strickland R.N. 3 Clinical Report - Nurses [facility] Emergency Department [address] [place] [address] Phone #: ext- [phone] 11/06/2019 10:53 Patient: CAMILO BUTTS Sex: M : 1990 Age: 29y 11:45 11/06/19. ( blood drawn by label paster.). --11:51 11/06/19 Neida Strickland R.N. ( RN [...] he either has to come to the hospital medical r ecords dept and sign them out or see a pcp and they will request results and discuss treatment if he is positive. pt verbalized understanding.). --13:03 11/06/19 Neida Strickland R.N.DISPOSITION / DISCHARGE 13:00 11/06/19. BP: 126/86. HR: 73. RR: 17. O2 saturation: 99%. Temp: 98.2 F. Pain level now 0/10. --13:00 11/06/19 [place] design printing machine set up operator, Cornelio, ER Tech1 Condition at departure: improved and stable. No learning barriers present. Discharge instructions provided and reviewed with the patient. Patient verbalized understanding. Written instructions provided in Vietnamese. The patient was discharged by the physician anesthesiology physician assistant. He was discharged home. He left ambulatory and via taxi. 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 --13:11/06/19 Neida Strickland R.N.Locked/Released at 11/06/2019 13:03 by Neida Strickland R.N. Name Value Range Interpretation Code Description Data Cecy rce(s) Supporting Document(s) ID Date Data Source [id number] 11/06/2019 10:57:00 AM [facility] 1 Clinical Report - Physicians/Mid Levels [facility] Emergency Department [address] [place] [address] Phone #: ext- [phone] 11/06/2019 10:53 Patient: [...] HISTORYSee nurses notes. Seizures. Problems: Insomnia [Chronic]. Sinclair disorder. Lifestyle / Substance Problems. Neurological Disease. Bipolar Disorder. ADHD - Attention Deficit Hyperactivity Disorder. Other Disease. Seizure Disorder. Tendonitis. Tension-Type Headache. Obsessive Compulsive Disorder. Ocd. Paranoid schizophrenia. Tbi. 2 Clinical Report - Physicians/Mid Levels [facility] Emergency Department [address] [place] [address] Phone #: ext- [phone] 11/06/2019 10:53 Patient: [...] normal. 3 Clinical Report - Physicians/Mid Levels [facility] Emergency Department [address] [place] [address] Phone #: ext- [phone] 11/06/2019 10:53 Patient: [...] 70-79yrs 4 Clinical Report - Physicians/Mid Levels [facility] Emergency Department [address] [place] [address] Phone #: ext- [phone] 11/06/2019 10:53 Patient: CAMILO BUTTS Sex: M : 1990 Age: 29y >42 mL/min Normal 80 and above >35 mL/min Normal Female GFR Interpretation 20-39 yrs >60 mL/min Normal 40-49 yrs >58 mL/min Normal 50-59 yrs >51 mL/min Normal 60-69 yrs >45 mL/min Normal 70-79 yrs >39 mL/min Normal 80 and above >32 mL/min Normal Urinalysis: ([facility]: 11/06/2019 11:18) ( [facility] [place]/06/[place] 11:55) Final results Test Result Flag [...] Nasal A B: ([facility]: 11/06/2019 11:35) ( [facility] [place] 11/06/2019 12:11) Final results Test Result Flag Units (Reference) INFLUENZA A NEGATIVE (NORMAL: NEGAT INFLUENZA B NEGATIVE (NORMAL: NEGAT INFLUENZA A REENTER NEGATIVE (NORMAL: NEGAT INFLUENZA B REENTER NEGATIVE (NORMAL: NEGAT PROCEDURAL CONTROL VALID KIT LOT # _[id number] 11/06/19.1. . KIT EXP DATE _07.16.20 11/06/19.121Irene. .The Influenza A utilizin g an isothermal nucleic acid amplification technology for thequalitative detection of influenza A and B viral RNA.Negative results do not preclude influenza virus infection and should not beused as the sole basis for diagnosis, treatment or other patient managementdecisions. HIV RNA Quant: ([facility]: 11/06/2019 11:22) [facility] 11[facility]30[facility] Canceled CMTS: ER HIV lab; pt requests. Need waiver signed.PROGRESS AND PROCEDURESCourse of Care: VSS, NAD, AOx3, interacting well and appropriately, no use of accessory muscle, able tospeak full sentences, stable, non-toxic loo john. Enter room and pt lying peacefully in bed in NAD. Patient stable. Denies any new issues, concerns, or complaints. PE adriano NV intact b/l UE and LE. Pt [...] results. 5 Clinical Report - Physicians/Mid Levels [facility] Emergency Department [address] [place] [address] Phone #: ext- [phone] 11/06/2019 10:53 Patient: CAMILO BUTTS Sex: M [...] patient. 6 Clinical Report - Physicians/Mid Levels [facility] Emergency Department [address] [place] [address] Phone #: ext- [phone] 11/06/2019 10:53 Patient: CAMILO BUTTS Sex: M : 1990 Age: 29y(Electronically signed by Francisco J Saini P.A.-C 11/07/2019 01:28) Name Value Range Interpretation Code Description Data Cecy rce(s) Supporting Document(s) ID Date Data Source [id number] 11/07/2019 10:12:00 AM [facility] Name Value Range Interpretation Code Description Data Cecy rce(s) Supporting Document(s) HIV 1+2 Ab+HIV1 p24 Ag [Presence] in Serum or Plasma b y Immunoassay Non Reactive Non Reactive [facility] ID Date Data Source [id number] 11/06/2019 12:10:00 PM [facility] Name Value Range Interpretation Code Description Data Cecy rce(s) Supporting Document(s) COMPREHENSIVE METABOLIC PANEL [facility] COMPREHENSIVE METABOLIC PANEL Sodium [Moles/volume] in Serum or Plasma 141 mEq/L 134 - 153 [facility] Potassium [Moles/volume] in Serum or Plasma 4.0 mEq/L 3.6 - 5.0 [facility] Chloride [Moles/volume] in Serum or Plasma 105 mEq/L 98 - 107 [facility] Carbon dioxide, total [Moles/volume] in Serum or Plasma 26 MEQ/L 22 - 30 [facility] Glucose [Mass/volume] in Serum or Plasma 98 MG/DL 65 - 110 [facility] BUN 17 MG/DL 7 - 21 [facility] Creatinine [Mass/volume] in Serum or Plasma 0.7 MG/DL 0.7 - 1.5 [facility] BUN/CREAT 24 8 - 27 [facility] Protein [Mass/volume] in Serum or Plasma 6.7 G/DL 6.3 - 8.2 [facility] Albumin [Mass/volume] in Serum or Plasma 4.3 G/DL 3.9 - 5.0 [facility] Globulin [Mass/volume] in Serum by calculation 2.4 GM/DL 2.4 - 3.2 [facility] A/G RATIO 1.8 0.8 - 2.0 [facility] Calcium [Mass/volume] in Serum or Plasma 9.5 MG/DL 8.4 - 10.2 [facility] Bilirubin.total [Mass/volume] in Serum or Plasma 0.8 MG/DL 0.2 - 1.3 [facility] Alkaline phosphatase [Enzymatic activity/volume] in Serum or Plasma 107 U/L 38 - 126 [facility] Aspartate aminotransferase [Enzymatic activity/volume] in Serum or Plasma 18 U/L 5 - 40 [facility] Alanine aminotransferase [Enzymatic activity/volume] in Seru m or Plasma 24 U/L 7 - 56 [facility] Anion gap 3 in Serum or Plasma 10.0 mmol/L 8.0 - 16.0 [facility] AGE 29 yrs [facility] NON-AA GFR >60 mL/min [facility] ital AFR AMER GFR >60 mL/min [facility] Male GFR In terprentation 20-49 [...] >32 mL/min Normal ID Date Data Source [id number] 11/06/2019 11:57:00 AM EST [facility] Name Value Range Interpretation Code Description Data Cecy rce(s) Supporting Document(s) CBC W/AUTOMATED DIFF [facility] COMPLETE BLOOD COUNT Leukocytes [#/volume] in Blood by Automated count 6.8 10^3/uL 4.2 - 1 1.0 [facility] Erythrocytes [#/volume] in Blood by Automated count 5.42 10^6/uL 4. 50 - 6.30 [facility] Hemoglobin [Mass/volume] in Blood 16.1 g/dL 14.0 - 16.0 H [facility] Hematocrit [Volume Fraction] of Blood by Automated count 47.4 % 4 1.0 - 51.0 [facility] Erythrocyte mean corpuscular volume [Entitic volume] by Auto mated count 87.5 fL 80.0 - 94.0 [facility] Erythrocyte mean corpuscular hemoglobin [Entitic mass] by Automated count 29.7 pg 27.0 - 34.0 [facility] Erythrocyte mean corpuscular hemoglobin concentration [Mass/volume] by Automated count 34.0 g/dL 31.0 - 36.0 [facility] Erythrocyte distribution width [Ratio] by Automated count 12.4 % 11.5 - 14.8 [facility] Platelets [#/volume] in Blood by Automated count 237 10^3/uL 150 - 45 0 [facility] Platelet mean volume [Entitic volume] in Blood by Automated count 9.5 fL 7.4 - 10.4 [facility] Neutrophils/100 leukocytes in Blood by Automated count 69.2 % 37. 0 - 80.0 [facility] Lymphocytes/100 leukocytes in Blood by Manual count 20.1 % 25.0 - 40.0 L [facility] Monocytes/100 leukocytes in Blood by Automated count 7.3 % 3.0 - 8.0 [facility] Eosinophils/100 leukocytes in Blood by Automated count 2.2 % 0.0 - 7.0 [facility] Basophils/100 leukocytes in Blood by Automated count 0.6 % 0.0 - 2.0 [facility] %IG 0.6 % 0.0 - 0.0 H [facility] %NRBC 0.0 % 0.0 - 0.0 [facility] Neut[facility]ils [#/volume] in Blood by Automated count 4.73 10^3/uL 2.00 - 6.90 [facility] Lymphocytes [#/volume] in Blood by Automated count 1.37 10^3/uL 0.60 - 3.40 [facility] Monocytes [#/volume] in Blood by Automated count 0.50 10^3/uL 0.00 - 0.90 [facility] Eosinophils [#/volume] in Blood by Automated count 0.15 10^3/uL 0.00 - 0.70 [facility] Basophils [#/volume] in Blood by Automated count 0.04 10^3/uL 0.00 - 0.20 [facility] #IG 0.04 10^3/uL 0.00 - 0.10 [facility] #NRBC 0.00 10^3/uL 0.00 - 0.00 [facility] MANUAL DIFF NOT INDICATED [facility] RBC MORPH NOT INDICATED [facility] spital ID Date Data Source [id number] 11/06/2019 12:11:00 PM EST [facility] Name Value Range Interpretation Code Description Data Cecy rce(s) Supporting Document(s) Influenza virus A Ag [Presence] in Nasopharynx by Immunoassa y NEGATIVE NORMAL: NEGATIVE [facility] Influenza virus B Ag [Presence] in Nasopharynx by Immunoassa y NEGATIVE NORMAL: NEGATIVE [facility] NEGATIVENEGATIVE PROCEDURAL CO NTROL VALID KIT LOT # _[id number] 11/06/19.1210 . KIT EXP DATE _07.16.20 11/06/19 .The Influenza A & B assay is a rapid molecular in vitro diagnostic testutilizing an isothermal nucleic acid amplification technology for thequalitative detection of influenza A and B viral RNA.Negative results do not preclude influenza virus infection and should not beused as the sole basis for diagnosis, treatment or other patient managementdecisions. ID Date Data Source [id number] 11/06/2019 11:55:00 AM EST [facility] Name Value Range Interpretation Code Description Data Cecy rce(s) Supporting Document(s) [facility] COL[facility] yellow NORMAL: Yellow [facility] CLARITY clear NORMAL: Clear [facility] Specific gravity of Urine by Test strip 1.020 1.001 - 1.030 [facility] pH 7 5 - 9 [facility] al Glucose [Mass/volume] in Urine by Test strip NORM NORMAL: Negat [facility] Bilirubin.total [Presence] in Urine by Test strip NEG NORMAL: Negative [facility] Ketones [Presence] in Urine by Test strip NEG NORMAL: Negative [facility] Protein [Mass/volume] in Urine by Test strip NEG NORMAL: Negat [facility] Nitrite [Presence] in Urine by Test strip NEG NORMAL: Negative [facility] BLOOD NEG NORMAL: Negative [facility] Leukocyte esterase [Presence] in Urine by Test strip NEG [place] L: Negative [facility] Urobilinogen [Mass/volume] in Urine by Test strip 4 less alida n 1.0 mg/dL [facility] MICROSCOPIC Not Indicate [facility] Procedure Social History Code Duration Value Status Description Data Source(s ) Smoking 11/17/2020 12:00:00 AM EST Smoker, current status unkn own completed Smoker, current status unknown [facility] ([facility]) Smoking 11/02/2020 12:00:00 AM EST Smoker, current status unkn own completed Smoker, current status unknown [facility] ([facility]) Smoking 10/20/2020 12:00:00 AM EST Smoker, current status unkn own completed Smoker, current status unknown [facility] ([facility]) Smoking 09/24/2020 12:00:00 AM EST Smoker, current status unkn own completed Smoker, current status unknown [facility] ([facility]) Smoking 09/02/2020 12:00:00 AM EST Smoker, current status unkn own completed Smoker, current status unknown [facility]) Smoking 08/19/2020 12:00:00 AM EDT Smoker, current status unkn own completed Smoker, current status unknown [facility] ([facility]) Smoking 08/18/2020 12:00:00 AM EDT Smoker, current status unkn own completed Smoker, current status unknown [facility] ([facility]) Smoking 07/29/2020 12:00:00 AM EDT Smoker, current status unkn own completed Smoker, current status unknown [facility] ([facility]) Smoking 07/22/2020 12:00:00 AM EDT Smoker, current status unkn own completed Smoker, current status unknown [facility] ([facility]) Smoking 07/10/2020 12:00:00 AM EDT Smoker, current status unkn own completed Smoker, current status unknown [facility] ([facility]) Smoking 04/13/2020 12:00:00 AM EDT Smoker, current status unkn own completed Smoker, current status unknown [facility] ([facility]) Smoking 02/24/2020 12:00:00 AM EDT Smoker, current status unkn own completed Smoker, current status unknown [facility] ([facility]) Smoking 02/19/2020 12:00:00 AM EDT Smoker, current status unkn own completed Smoker, current status unknown [facility] ([facility]) Smoking 01/28/2020 12:00:00 AM EDT Smoker, current status unkn own completed Smoker, current status unknown [facility] ([facility]) Smoking 01/10/2020 12:00:00 AM EDT Smoker, current status unkn own completed Smoker, current status unknown [facility] ([facility]) Smoking 12/26/2019 12:00:00 AM EST Smoker, current status unkn own completed Smoker, current status unknown [facility] ([facility]) Smoking 12/09/2019 12:00:00 AM EST Smoker, current status unkn own completed Smoker, current status unknown [facility] ([facility]) Smoking 10/21/2019 12:00:00 AM EST Smoker, current status unkn own completed Smoker, current status unknown [facility] ([facility]) Smoking 10/07/2019 12:00:00 AM EST Smoker, current status unkn own completed Smoker, current status unknown [facility] ([facility])
[2020-11-18 08:26] VITALS: BP 166/92
--- OUTSIDE RECORDS SUMMARY | 2020-11-18 08:27 | CCD ---
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 --03:44 08/29/20 Carito Barry R.N.Locked/Released at 08/29/2020 05:19 by Carito Barry R.N. Name Value Range Interpretation Code Description Data Cecy rce(s) Supporting Document(s) ID Date Data Source [id number] 08/29/2020 12:13:[address] [facility] 1 Clinical Report - Physicians/Mid Levels [facility] Emergency Department [address] [place] [address] Phone #: ext- [phone] 08/29/2020 00:12 Patient: [...] Abrasions 2 Clinical Report - Physicians/Mid Levels [facility] Emergency Department [address] [place] [address] Phone #: ext- [phone] 08/29/2020 00:12 Patient: [...] ABD //T// PELV W/O ORAL W/[place] [address] ---------N RYANN--------- NUMBER SEX AGE ADMIT DISC. XRAY# F/C TYPE BENJAMÍN Navarro [id number] M 29 08/29/20 [id number] NA E/R DATE OF : 1990 M/R# [id number] #: [id number] TR-03 3 Clinical Report - Physicians/Mid Levels [facility] Emergency Department [address] [place] [address] Phone #: ext- [phone] 08/29/2020 00:12 [id number] Sex: M : 1990 Age: 29y LOCATION: EMERGENCY DEPT TRANSCRIBED: 08/29/20 2:[address] ABD //T// PELV W/O ORAL W/[place] [address] COMPLETED:08/29/20 2:18 RLB [id number] Reason(s): Trauma/Injury PHYSICIAN: ANTHONY BR = R [...] acute osseous pathologyevident.IMPRESSION: 4 Clinical Report - Physicians/[facility] Emergency Department [address] [place] [address] Phone #: ext- [phone] 08/29/2020 00:12 Patient: [...] Finalresults Exam CT ST NECK W/[place] [address] ---------NAME--------- NUMBER SEX AGE ADMIT DISC. XRAY# F/C TYPE BENJAMÍN Navarro [id number] M 29 08/29/20 [id number] NA E/R DATE OF : 1990 M/R# [id number] #: [id number] TR-03 LOCATION: EMERGENCY DEPT TRANSCRIBED: 08/29/20 2:[address] NECK W/O CONTRAST 56455 COMPLETED:08/29/20 2:18 RLB [id number] Reason(s): Trauma/Injury PHYSICIAN: ANTHONY BR R A [...] or gas. 5 Clinical Report - Physicians/[facility] Emergency Department [address] [place] [address] Phone #: ext- [phone] 08/29/2020 00:12 Patient: [...] Final results Exam CT THORAX W/[place] [address] ---------NAME--------- NUMBER SEX AGE ADMIT DISC. XRAY# F/C TYPE MANTLE CAMILO D [id number] M 29 08/29/20 [id number] NA E/R DATE OF : 1990 M/R# [id number] #: [id number] TR-03 LOCATION: EMERGENCY DEPT TRANSCRIBED: 08/29/20 2:[address] THORAX W/O CONTRAST 95969 COMPLETED:08/29/20 2:18 RLB [id number] Reason(s): Trauma/Injury PHYSICIAN: ANTHONY BR R A [...] provided. 6 Clinical Report - Physicians/Mid Levels [facility] Emergency Department [address] [place] [address] Phone #: ext- [phone] 08/29/2020 00:12 Patient: [...] NEGATIVE (NORMAL: NEGAT 7 Clinical Report - Physicians/[facility] Emergency Department [address] [place] [address] Phone #: ext- [phone] 08/29/2020 00:12 Patient: [...] PRESUMPTIVE POSITIVE [facility]CMP: (LULU: 08/29/2020 01:35) ( MsgRcvd 08/29/2020 [...] Male GFR Interprentation 20-49 yrs >60 mL/min Lgffaq94-29 yrs >56 mL/min Normal 60-69 yrs >49 mL/min Normal 70-79yrs>42 mL/min Normal 80 and above >35 mL/min Normal Female GFRInterpretation 20-39 yrs >60 mL/min Normal 40-49 yrs >58 mL/minNormal 50-59 yrs >51 mL/min Normal 60-69 yrs >45 mL/min Tkzpqz28-83 yrs >39 mL/min Normal 80 and above [...] 8 C linical Report - Physicians/Mid Levels [facility] Emergency Department [address] [place] [address] Phone #: ext- [phone] 08/29/2020 00:12 Patient: CAMILO BUTTS Sex: M [...] tendencies.). 9 Clinical Report - Physicians/Mid Levels [facility] Emergency Department [address] [place] [address] Phone #: ext- [phone] 08/29/2020 00:12 Patient: [...] rce(s) Supporting Document(s) ID Date Data Source [id number] 08/29/2020 02:56:00 AM [facility] [address] [facility] [place] [address] ---------NAME--------- NUMBER SEX AGE ADMIT DISC. XRAY# F/C TYPE MANTLE CAMILO Navarro [id number] M 29 08/29/20 [id number] NA E/R DATE OF : 1990 M/R# [id number] #: [id number] TR-03 LOCATION: EMERGENCY DEPT TRANSCRIBED: 08/29/20 2:[address] THORAX W/O CONTRAST 60768 COMPLETED:08/29/20 2:18 RLB [id number] Reason(s): Trauma/Injury PHYSICIAN: ANTHONY BR R A [...] rce(s) Supporting Document(s) ID Date Data Source [id number] 08/29/2020 02:39:[address] [address] ---------NAME--------- NUMBER SEX AGE ADMIT DISC. XRAY# F/C TYPE MANTLE CAMILO D [id number] M 29 08/29/20 [id number] NA E/R DATE OF : 1990 M/R# [id number] #: [id number] TR-03 LOCATION: EMERGENCY DEPT TRANSCRIBED: 08/29/20 2:[address] ABD //T// PELV W/O ORAL W/[place] [address] COMPLETED:08/29/20 2:18 RLB [id number] Reason(s): Trauma/Injury PHYSICIAN: ANTHONY BR======== R A [...] rce(s) Supporting Document(s) ID Date Data Source [id number] 08/29/2020 02:37:00 AM [facility] [address] [facility] [place] [address] ---------NAME--------- NUMBER SEX AGE ADMIT DISC. XRAY# F/C TYPE MANTLE CAMILO D [id number] M 29 08/29/20 [id number] NA E/R DATE OF : 1990 M/R# [id number] PH#: [phone] TR-03 LOCATION: EMERGENCY DEPT TRANSCRIBED: 08/29/20 2:[address] NECK W/O CONTRAST 80925 COMPLETED:08/29/20 2:18 RLB [id number] Reason(s): Trauma/Injury PHYSICIAN: ANTHONY BR R A [...] rce(s) Supporting Document(s) ID Date Data Source [id number] 08/29/2020 02:02:00 AM [facility] Name Value Range Interpretation Code Description Data Cecy rce(s) Supporting Document(s) Lipase [Enzymatic activity/volume] in Serum or Plasma 37 U/L 13 - 60 [facility] ID Date Data Source [id number] 08/29/2020 02:02:00 AM [facility] Name Value Range Interpretation Code Description Data Cecy rce(s) Supporting Document(s) COMPREHENSIVE METABOLIC PANEL [facility] COMPREHENSIVE METABOLIC PANEL Sodium [Moles/volume] in Serum or Plasma 136 mEq/L 134 - 153 [facility] Potassium [Moles/volume] in Serum or Plasma 3.8 mEq/L 3.6 - 5.0 [facility] Chloride [Moles/volume] in Serum or Plasma 103 mEq/L 98 - 107 [facility] Carbon dioxide, total [Moles/volume] in Serum or Plasma 26 MEQ/L 22 - 30 [facility] Glucose [Mass/volume] in Serum or Plasma 106 MG/DL 65 - 110 [facility] BUN 14 MG/DL 7 - 21 [facility] al Creatinine [Mass/volume] in Serum or Plasma 0.6 MG/DL 0.7 - 1.[address] [facility] BUN/CREAT 23 8 - 27 [facility] Protein [Mass/volume] in Serum or Plasma 6.6 G/DL 6.3 - 8.2 [facility] Albumin [Mass/volume] in Serum or Plasma 4.3 G/DL 3.9 - 5.0 [facility] Globulin [Mass/volume] in Serum by calculation 2.3 GM/DL 2.4 - 3.[address] [facility] A/G RATIO 1.9 0.8 - 2.0 [facility] Calcium [Mass/volume] in Serum or Plasma 9.3 MG/DL 8.4 - 10.2 [facility] Bilirubin.total [Mass/volume] in Serum or Plasma 0.8 MG/DL 0.2 - 1.3 [facility] Alkaline phosphatase [Enzymatic activity/volume] in Serum or Plasma 108 U/L 38 - 126 [facility] Aspartate aminotransferase [Enzymatic activity/volume] in Serum or Plasma 17 U/L 5 - 40 [facility] Alanine aminotransferase [Enzymatic activity/volume] in Seru m or Plasma 18 U/L 7 - 56 [facility] Anion gap 3 in Serum or Plasma 7.0 mmol/L 8.0 - 16.[address] [facility] AGE 29 yrs [facility] al NON-AA GFR >60 mL/min [facility] ital AFR AMER GFR >60 mL/min [facility] Ho spital Male GFR In terprentation [...] >32 mL/min Normal ID Date Data Source [id number] 08/29/2020 01:45:00 AM [facility] Name Value Range Interpretation Code Description Data Cecy rce(s) Supporting Document(s) Lactate [Moles/volume] in Serum or Plasma 1.0 MMOL/L 0.2 - 2.2 [facility] ID Date Data Source [id number] 08/29/2020 01:42:00 AM [facility] Name Value Range Interpretation Code Description Data Cecy rce(s) Supporting Document(s) CBC W/AUTOMATED DIFF [facility] COMPLETE BLOOD COUNT Leukocytes [#/volume] in Blood by Automated count 8.4 10^3/uL 4.2 - [address] [facility] Erythrocytes [#/volume] in Blood by Automated count 4.97 10^6/uL 4. 50 - 6.30 [facility] Hemoglobin [Mass/volume] in Blood 15.1 g/dL 14.0 - 16.0 [facility] Hematocrit [Volume Fraction] of Blood by Automated count 43.8 % 4 1.0 - 51.0 [facility] Erythrocyte mean corpuscular volume [Entitic volume] by Auto mated count 88.1 fL 80.0 - 94.0 [facility] Erythrocyte mean corpuscular hemoglobin [Entitic mass] by Automated count 30.4 pg 27.0 - 34.0 [facility] Erythrocyte mean corpuscular hemoglobin concentration [Mass/volume] by Automated count 34.5 g/dL 31.0 - 36.0 [facility] Erythrocyte distribution width [Ratio] by Automated count 12.6 % 11.5 - 14.8 [facility] Platelets [#/volume] in Blood by Automated count 258 10^3/uL 150 - [address] [facility] Platelet mean volume [Entitic volume] in Blood by Automated count 9.9 fL 7.4 - 10.4 [facility] Neutrophils/100 leukocytes in Blood by Automated count 59.4 % 37. 0 - 80.0 [facility] Lymphocytes/100 leukocytes in Blood by Manual count 28.6 % 25.0 - 40.0 [facility] Monocytes/100 leukocytes in Blood by Automated count 8.9 % 3.0 - 8.[address] [facility] Eosinophils/100 leukocytes in Blood by Automated count 2.1 % 0.0 - 7.0 [facility] Basophils/100 leukocytes in Blood by Automated count 0.6 % 0.0 - 2.0 [facility] %IG 0.4 % 0.0 - 0.0 H [facility] al %NRBC 0.0 % 0.0 - 0.0 [facility] al Neutrophils [#/volume] in Blood by Automated count 4.99 10^3/uL 2.00 - 6.90 [facility] Lymphocytes [#/volume] in Blood by Automated count 2.40 10^3/uL 0.60 - 3.40 [facility] Monocytes [#/volume] in Blood by Automated count 0.75 10^3/uL 0.00 - 0.90 [facility] Eosinophils [#/volume] in Blood by Automated count 0.18 10^3/uL 0.00 - 0.70 [facility] Basophils [#/volume] in Blood by Automated count 0.05 10^3/uL 0.00 - 0.20 [facility] #IG 0.03 10^3/uL 0.00 - 0.10 [facility] ospital #NRBC 0.00 10^3/uL 0.00 - 0.00 [facility] ospital MANUAL DIFF NOT INDICATED [facility] RBC MORPH NOT INDICATED [facility] spital ID Date Data Source [id number] 08/29/2020 01:40:[address] [facility] Name Value Range Interpretation Code Description Data Cecy rce(s) Supporting Document(s) DRUG SCREEN URINE [facility] URINE DRUG SCREEN Amphetamine [Presence] in Urine by Screen method NEGATIVE NORMAL: N EGATIVE [facility] BARBITURATES NEGATIVE NORMAL: NEGATIVE [facility] BENZO NEGATIVE NORMAL: NEGATIVE [facility] COCAINE NEGATIVE NORMAL: NEGATIVE [facility] Tetrahydrocannabinol [Presence] in Urine NEGATIVE NORMAL: NEGATIVE [facility] OPIATES NEGATIVE NORMAL: NEGATIVE [facility] Phencyclidine [Presence] in Urine by Screen method NEGATIVE NOR MAL: NEGATIVE [facility] \\BLDo\\URINE DRUG SCR EEN INTERPRETATION\\BLDx\\ THE CUTOFFF LEVELS FOR DETECTION ARE FOLLOWS: AMPHETAMINES 1000 ng/ml BARBITUARATES 200 ng/ml BENZODIAZEPINES 100 ng/ml THC 50 ng/ml PHENCYCLIDINE 25 ng/ml OPIATES 300 ng/ml COCAINE 300 ng/ml ALL POSITIVES ARE CONSIDERED PRESUMPTIVE POSITIVE CONFIRMATION WILL BE PERFORMED AT PHYSICIAN REQUEST. ID Date Data Source [id number] 08/29/2020 01:25:[address] [facility] Name Value Range Interpretation Code Description Data Cecy rce(s) Supporting Document(s) URINALYSIS [facility] URINALYSIS SOURCE R [facility] al COLOR yellow NORMAL: Yellow [facility] ospital CLARITY clear NORMAL: Clear [facility] Ho spital Specific gravity of Urine by Test strip 1.010 1.001 - 1.030 [facility] pH 6.5 5 - 9 [facility] Glucose [Mass/volume] in Urine by Test strip NORM NORMAL: Negat [facility] Bilirubin.total [Presence] in Urine by Test strip NEG NORMAL: Negative [facility] Ketones [Presence] in Urine by Test strip NEG NORMAL: Negative [facility] Protein [Mass/volume] in Urine by Test strip NEG NORMAL: Negat [facility] Nitrite [Presence] in Urine by Test strip NEG NORMAL: Negative [facility] BLOOD NEG NORMAL: Negative [facility] Leukocyte esterase [Presence] in Urine by Test strip NEG [place] L: Negative [facility] Urobilinogen [Mass/volume] in Urine by Test strip NOR less alida n 1.0 mg/dL [facility] MICROSCOPIC Not Indicate [facility] ospital ID Date Data Source [id number] 08/19/2020 01:52:52 PM EDT [facility] Vital SignsBlood Pressure: 138/82 Patient History Medical History:Brain TumorSeizure DisorderDepressionHx of kidney stonesBipolarSurgical History:Partial lobectomyFamily History:No known family historySocial/Personal History: Smoking Status: current some day smokerDo you vape? NoCurrent Problems: Normal examination (ICD-V65.5) (ILJ07-X74.1)Dental caries/Impaction of teeth (ICD-521.00) (UCX53-K28.9)Contact dermatitis and other eczema, unspecified cause (ICD-692.9) (DAW00-N08.9)Depression (ICD-311) (WUY71-Y70.9)Seizure Disorder (ICD-780.39) (BEC66-P90.9)Brain Tumor (ICD-191.9) (TZG90-M38.9)Problem list reviewed during this update.Current Medications: SEROQUEL [...] PM): ; yany (Aug 20 2020 7:29AM): [facility] CC: none. Reviewed Xrays. Exam: caries detected. [...] Known Allergies (updated 08/19/2020) Orders:Oral Surgery Referral [[id number]] Clinical Visit Summary Declined Name Value Range Interpretation Code Description Data Cecy rce(s) Supporting Document(s) ID Date Data Source [id number] 08/14/2020 07:17:[address] [facility] [address] [facility] Emergency Department [address] [place] [address] Phone #: ext- [phone] 08/14/2020 19:09 Patient: [...] rce(s) Supporting Document(s) ID Date Data Source [id number] 08/14/2020 07:17:[address] [facility] [address] [facility] Emergency Department [address] [place] [address] Phone #: ext- [phone] 19:09 Patient: CAMILO BUTTS Sex: M : 1990 Age: 29yWeight: 81.6 kgHeight/Length: 72 inBMI: 24.4ALLERGIES: No Known Drug AllergyDate/Time Medication Administered Medication Ordered Name Value Range Interpretation Code Description Data Cecy rce(s) Supporting Document(s) ID Date Data Source [id number] 08/14/2020 07:17:[address] [facility] [address] [facility] Emergency Department [address] [place] [address] Phone #: ext- [phone] 08/14/2020 19:09 Patient: CAMILO BUTTS Sex: M : 1990 Age: 29y Anxiety reaction. No hyperventilation.INSTRUCTIONS Warnings: GENERAL WARNINGS: Return or contact your physician immediately if your condition worsens or changes unexpectedly, if not improving as expected, or if other problems arise. Understanding of the discharge instructions verbalized by patient. Follow-up with: [facility], , , [address] [place] [address], [address] Follow up in one week. Call for [...] may experience: Dry mouth [address] [facility] Emergency Department [address] [place] [address] Phone #: ext- [phone] 08/14/2020 19:09 Patient: [...] Also, there are certain [address] [facility] Emergency Department [address] [place] [address] Phone #: ext- [phone] 08/14/2020 19:09 Patient: [...] andtemporary medicine to help you manage stress.Call [phone] [phone] if any of these happen: Trouble breathing [...] and mild pain reliever [address] [facility] Emergency Department [address] [place] [address] Phone #: ext- [phone] 08/14/2020 19:09 Patient: CAMILO BUTTS Sex: M : 1990 Age: 29y [phone] [employer]. [address] [place] [address]. All rights reserved. This information is not intended as asubstitute for professional medical care. Always follow your healthcare professional's instructions. You have been given the following additional information: Anxiety Reaction(Electronically signed by Pedro Kim, 08/14/2020 20:15) Name Value Range Interpretation Code Description Data Cecy rce(s) Supporting Document(s) ID Date Data Source [id number] 08/14/2020 07:17:[address] [facility] 1 Clinical Report - Nurses [facility] Emergency Department [address] [place] [address] Phone #: ext- [phone] 08/14/2020 19:09 Patient: CAMILO BUTTS [facility]#: [id number] Sex: M : 1990 Age: 29yTRIAGEHistorian: patient.Acuity: [...] no barriers. 2 Clinical Report - Nurses [facility] Emergency Department [address] [place] [address] Phone #: ext- [phone] 08/14/2020 19:09 Patient: CAMILO BUTTS Sex: M : 1990 Age: 29y FALL RISK ASSESSMENT: Fall risk assessment completed. No risk factors identified. SKIN INTEGRITY ASSESSMENT: Skin integrity risk assessment completed. No skin integrity risk identified. --19:30 08/14/20 Alfonso Buck R.N. FAMILY HX: No significant family medical history. --19:53 08/14/20 Pedro Kim.PHYSICAL LPMUJYPRJI21:35 08/14/20. Ambulatory to room.GENERAL / NEURO / [...] Patient verbalized understanding. Written instructions provided in Jordanian. The patient was discharged home and unaccompanied at time of discharge. He left ambulatory and via taxi. 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 --20:04 08/14/20 Carito Barry R.N. 20:03 08/14/20. BP: 141/93. MAP: 109. HR: 81. RR: 16. O2 saturation: 98%. Temp: 97.9 F. Pain level now: 0. --20:04 08/14/20 Carito Barry R.N.Locked/Released at 08/14/2020 20:04 by Carito Barry R.N. Name Value Range Interpretation Code Description Data Cecy rce(s) Supporting Document(s) ID Date Data Source [id number] 08/14/2020 07:17:[address] [facility] 1 Clinical Report - Physicians/Mid Levels [facility] Emergency Department [address] [place] [address] Phone #: ext- [phone] 08/14/2020 19:09 Patient: [...] alone. 2 Clinical Report - Physicians/Mid Levels [facility] Emergency Department [address] [place] [address] Phone #: ext- [phone] 08/14/2020 19:09 Patient: [...] patient. 3 Clinical Report - Physicians/Mid Levels [facility] Emergency Department [address] [place] [address] Phone #: ext- [phone] 08/14/2020 19:09 Patient: CAMILO BUTTS Sex: M : 1990 Age: 29y Follow-up with: [facility], , , [address] [place] [address], [facility] Follow up in one week. Call for an appointment.(Electronically signed by Pedro Kim, 08/14/2020 20:15) Name Value Range Interpretation Code Description Data Cecy rce(s) Supporting Document(s) ID Date Data Source [id number] 05/04/2020 10:53:00 [place] [address] PHONE: [phone] FAX: [phone] Name .................. : BENJAMÍN Navarro Acct Number.................. : [id number] ROOM. ................. : TR-07 MR Number ................... : [id number] Stay type ............. : E/R Discharge Date......... ... : Admit Date ......... : 05/02/20 Admit Phys .................... : SAQIB GRUBBS Date of ....... : 1990 Family Phys ................... : NON STAFF Phone .................. : [phone] Age ................................ : 29 Film# .................. .:[id number] Sex ................................. : M Unsigned transcriptions are preliminary reports and do not represent a medical or legal document CT HEAD W/O CONTRAST [id number] COMPLETE:05/02/20 11:52 KBO 79701 Reason(s): Head Pain CT OF THE HEAD [...] rce(s) Supporting Document(s) ID Date Data Source [id number] 05/04/2020 10:53:00 AM EDT [facility] [address] [place] [address] PHONE: [phone] FAX: [phone] Name .................. : BENJAMÍN Navarro Acct Number.................. : [id number] ROOM. ................. : TR-07 Number ................... : [id number] Stay type ............. : E/R Discharge Date......... ... : Admit Date ......... : 05/02/20 Admit Phys .................... : SAQIB HUMERA Date of ....... : 1990 Family Phys ................... : NON STAFF Phone .................. : [phone] Age ................................ : 29 Film# .................. .:[id number] Sex ................................. : M Unsigned transcriptions are preliminary reports and do not represent a medical or legal document CHEST PORTABLE [id number] COMPLETE:05/02/20 11:52 KBO 54722 Reason(s): seizure PORTABLE CHEST X-RAY: COMPARISON: 11/06/19 [...] for: EMERGENCY DEPT via modem Copy for: [address] [place] [address] REC DISCHARGED Page 1 of 1 Name Value Range Interpretation Code Description Data Cecy rce(s) Supporting Document(s) ID Date Data Source [id number] 05/03/2020 01:07:00 [place] [address] RESPIRATORY CARE REPORT ==== ---------NAME------- NUMBER SEX AGE ADMIT DISC. XRAY# F/C JULIAN Navarro [id number] M 29 05/02/20 05/02/20 [id number] XBE E/R DATE OF : 1990 M/R# [id number] #: [id number] TR-07 LOCATION: EMERGENCY DEPT EKG 61879 COMPLE TE:05/02/20 14:49 [place] [address] PHYSICIAN: SAQIB SAINI CH Name Value Range Interpretation Code Description Data Cecy rce(s) Supporting Document(s) ID Date Data Source [id number] 05/02/2020 10:49:[address] [facility] [address] [facility] Emergency Department [address] [place] [address] Phone #: ext- [phone] 05/02/2020 10:49 Patient: CAMILO BUTTS Sex: M [...] STAT 11:06 05/02/2020 11:[address] [facility] Emergency Department [address] [place] [address] Phone #: ext- [phone] 05/02/2020 10:49 Patient: CAMILO BUTTS Sex: M : 1990 Age: 29y(Oxygen?(No)) Francisco J Blanchard RN P.A.-C; NOTES: Seizure Reason for Study: Head PainChest 1 View STAT 11:06 05/02/2020 Initialed: 11:12 Francisco J Cr(Oxygen?(No)) Francisco J Saini Cancelled: Other 11:12 Francisco J Ivory; Parvene P.A.- Shaye Reason for Study: CoughChest Portable [...] 05/02/2020 11:14 TerryMonitor Francisco J Blanchard RN P.A.-C;Slubber Operator 11:11 05/02/2020 11:14 Freddy(continuous) Francisco J Blanchard RN P.A.-C;NPO 11:11 05/02/2020 11:14 [address] [facility] Emergency Department [address] [place] [address] Phone #: ext- [phone] 05/02/2020 10:49 Patient: [...] rce(s) Supporting Document(s) ID Date Data Source [id number] 05/02/2020 10:49:[address] [facility] [address] [facility] Emergency Department [address] [place] [address] Phone #: ext- [phone] 05/02/2020 10:49 [id number] Sex: [facility] : 1990 Age: 29yWeight: 83.9 [...] rce(s) Supporting Document(s) ID Date Data Source [id number] 05/02/2020 10:49:[address] [facility] [address] [facility] Emergency Department [address] [place] [address] Phone #: ext- [phone] 05/02/2020 10:49 Patient: [...] rce(s) Supporting Document(s) ID Date Data Source [id number] 05/02/2020 10:49:[address] [facility] [address] [facility] Emergency Department [address] [place] [address] Phone #: [phone] wvg- [phone] 05/02/2020 10:49 Patient: CAMILO BUTTS Sex: M [...] discharge instructions verbalized by patient.Follow-up with: [facility], , [id number], [facility] [place], [address] Follow up. Call for the next available [...] change to another medicine. [address] [facility] Emergency Department [address] [place] [address] Phone #: ext- [phone] 05/02/2020 10:49 Patient: CAMILO BUTTS Sex: M [...] and/or another type of [address] [facility] Emergency Department [address] [place] [address] Phone #: ext- [phone] 05/02/2020 10:49 Patient: [...] Headache that gets worse [address] [facility] Emergency Department [address] [place] [address] Phone #: ext- [phone] 05/02/2020 10:49 Patient: CAMILO BUTTS Sex: M : 1990 Age: 29y [phone] [employer] [address] [place] [address]. All rights reserved. This information is not intended as asubstitute for professional medical care. Always follow your healthcare professional's instructions. You have been given the following additional information: Seizure, Recurrent (Adult) No driving or operating machinery until released.(Electronically signed by Francisco J Saini P.A.-C 05/03/2020 10:57) Name Value Range Interpretation Code Description Data Cecy rce(s) Supporting Document(s) ID Date Data Source [id number] 05/02/2020 10:49:[address] [facility] 1 Clinical Report - Nurses [facility] Emergency Department [address] [place] [address] Phone #: ext- [phone] 05/02/2020 10:49 Patient: [...] trauma. Did not miss recentdose of anticonvulsant.Treatment MEASUREMENT AND SENSING TECHNICIAN:None.SEPSIS SCREEN: SIRS Screen negative. Sepsis Screen negative. [...] Known Drug Allergy. --10:56 05/02/20 Freddy Blanchard RN.Jcmoaxy94:59 05/02/20.PAST MEDICAL HX: Seizures. No history of [...] no deficiencies. 2 Clinical Report - Nurses [facility] Emergency Department [address] [place] [address] Phone #: ext- [phone] 05/02/2020 10:49 [id number] Sex: M : 1990 Age: 29y FUNCTIONAL [...] To room. --10:59 05/02/20 Freddy Blanchard RN.PHYSICAL TGNGWEWSWO31:05/02/20. To room via stretcher.GENERAL / NEURO / [...] 05/02/20. Cardiac rhythm: normal sinus rhythm; (1050). monitoring coordinator, NIBP monitor and pulse oximeter placed on patient; laboratory monitor- Lead II; monitor alarms on; monitor strip [...] at 75 3 Clinical Report - Nurses [facility] Emergency Department [address] [place] [address] Phone #: ext- [phone] 05/02/2020 10:49 Patient: CAMILO BUTTS A cct#: [id number] Sex: M : 1990 Age: 29ymL/hr over [...] the PA (1120). Patient transported to [facility] with nurse and pharmacy order entry technician. (1130). Patient returned from CT by stretcher with nurse andradiology tech. (1135). --11:44 05/02/20 Donovan Pretty precautions maintained: side rails up x2 and padded, suction and O2 at bedside, patient in view ofNew Relic's station and call abbasi in reach (1050). [...] Blanchard RN 4 Clinical Report - Nurses [facility] Emergency Department [address] [place] [address] Phone #: ext- [phone] 05/02/2020 10:49 Patient: CAMILO BUTTS Sex: M : 1990 Age: 29y 13:34 05/02/2020 Tylenol PO Response: pain is improving. Symptoms have improved the patient feels better. Physician fleet administrative assistant notified. --13:34 05/02/20 Freddy Blanchard RN 13:34 05/02/2020 Ativan PO Response: pain is improving. Symptoms have improved the patient feels better. Physician fleet administrative assistant notified. --13:34 05/02/20 Freddy Blanchard RN [...] parent verbalized understanding. Written instructions provided in Jordanian. The patient was discharged by the physician fleet administrative assistant. He was discharged home and accompanied by parent. He left ambulatory and via private vehicle. Parent driving. --13:57 05/02/20 Freddy Blanchard RN 13:45 05/02/2020 Site #1 removed upon discharge. Catheter intact. Bandaid applied. --13:58 05/02/20 Freddy Blanchard RN.Locked/Released at 05/02/2020 16:59 by Freddy Blanchard RN Name Value Range Interpretation Code Description Data Cecy rce(s) Supporting Document(s) ID Date Data Source [id number] 05/02/2020 10:49:[address] [facility] 1 Clinical Report - Physicians/Mid Levels [facility] Emergency Department [address] [place] [address] Phone #: ext- [phone] 05/02/2020 10:49 Patient: [facility] BUTTS [id number] Sex: M : 1990 Age: 29y Time [...] tumor. See old chart. Problems: Insomnia [Chronic]. [place] disorder. Lifestyle / Substance Problems. Neurological Disease. Bipolar Disorder. Obsessive Compulsive Disorder. ADHD - Attention Deficit Hyperactivity Disorder. Seizure. Tendonitis. STD - Sexually Transmitted Disease. 2 Clinical Report - Physicians/Mid Levels [facility] Emergency Department [address] [place] [address] Phone #: ext- [phone] 05/02/2020 10:49 Patient: [id number] Sex: M : 1990 Age: 29y Tbi. [...] 2+. 3 Clinical Report - Physicians/Mid Levels [facility] Emergency Department [address] [place] [address] Phone #: ext- [phone] 05/02/2020 10:49 Patient: CAMILO BUTTS [facility]#: [id number] Sex: M : 1990 Age: 29y Respiratory: [...] Oxygen?(No) Room: ED Exam CHEST PORTABLE [facility] [address] [place] [address] PHONE: [phone] FAX: [phone] Name .................. : BENJAMÍN Navarro Acct Number.................. : [id number] ROOM. ................. : TR-07 MR Number ................... : [id number] Stay type ............. : E/R Discharge Date......... ... : Admit Date ......... : 05/02/20 Admit Phys .................... : SAQIB GRUBBS Date of ....... : 1990 Family Phys ................... : NON STAFF Phone .................. : [phone] Age ................................ : 29 Film# .................. .:[id number] Sex ................................. : M Unsigned transcriptions are preliminary reports and do not represent a medical or legal document CHEST PORTABLE [id number] COMPLETE:05/02/20 11:52 KBO 48172 Reason(s): seizure 4 Clinical Report - Physicians/Mid Levels [facility] Emergency Department [address] [place] [address] Phone #: ext- [phone] 05/02/2020 10:49 Patient: [...] NEGAT 5 Clinical Report - Physicians/Mid Levels [facility] Emergency Department [address] [place] [address] Phone #: ext- [phone] 05/02/2020 10:49 Patient: CAMILO BUTTS Sex: M [...] PERFORMED AT [facility].CMP: (LULU: 05/02/2020 11:13) ( MsgRcvd 05/02/2020 11:44) [...] Male GFR Interprentation 20-49 yrs >60 mL/min Zllush51-02 yrs >56 mL/min Normal 60-69 yrs >49 mL/min Normal 70-79yrs>42 mL/min Normal 80 and above >35 mL/min Normal Female GFRInterpretation 20-39 yrs >60 mL/min Normal 40-49 yrs >58 mL/minNormal 50-59 yrs >51 mL/min Normal 60-69 yrs >45 mL/min Memgyr40-21 yrs >39 mL/min Normal 80 and above [...] 34.0) 6 Clinical Report - Physicians/Mid Levels [facility] Emergency Department [address] [place] [address] Phone #: ext- [phone] 05/02/2020 10:49 Patient: [...] MORPH NOT INDICATEDCPK: (LULU: 05/02/2020 11:13) ( [facility] 05/02/2020 11:44) Final results Test Result Flag Units (Reference) CPK 204 H U/L (30 - 170)Acetaminophen Level: (LULU: 05/02/2020 11:13) ( [facility] 05/02/2020 11:41) Final results Test Result Flag Units (Reference) ACETAMINOPHEN <5.0 UG/ML (0.0 - 30.0)Salicylate Level: (LULU: 05/02/2020 11:13) ( [facility] 05/02/2020 11:44) Final results Test Result Flag Units (Reference) SALICYLATE <0.3 L mg/dL (2.0 - 20.0)CT Head W/O Cont: (LULU: 05/02/2020 11:06) ( [facility] 05/02/2020 12:26) In ProgressCT HEAD W/O CONTRASTReason(s): Head PainTRANSPORTATION: WC IV? O2? Oxygen?(No) Room: ED CMTS: Seizure Exam CT HEAD W/[place] [address] PHONE: [phone] FAX: [phone] Name .................. : BENJAMÍN Navarro Acct Number.................. : [id number] ROOM. ................. : [facility] MR Number ................... : [id number] Stay type ............. : E/R Discharge Date......... ... : Admit Date ......... : 05/02/20 Admit Phys .................... : SAQIB HUMERA Date of ....... : 1990 Family Phys ................... : NON STAFF Phone .................. : [phone] Age ................................ : 29 Film# .................. .:[id number] Sex ................................. : M Unsigned transcriptions are preliminary reports and do not represent a medical or legal document CT HEAD W/O CONTRAST [id number] COMPLETE:05/02/20 11:52 KBO 87859 Reason(s): Head Pain 7 Clinical Report - Physicians/Mid Levels [facility] Emergency Department [address] [place] [address] Phone #: ext- [phone] 05/02/2020 10:49 Patient: CAMILO BUTTS [facility]#: [id number] Sex: M : 1990 Age: 29y CT [...] a 8 Clinical Report - Physicians/Mid Levels [facility] Emergency Department [address] [place] [address] Phone #: ext- [phone] 05/02/2020 10:49 Patient: CAMILO BUTTS Sex: M [...] cause, 9 Clinical Report - Physicians/Mid Levels [facility] Emergency Department [address] [place] [address] Phone #: ext- [phone] 05/02/2020 10:49 Patient: [...] instructions verbalized by patient. Follow-up with: [facility]UROLOGY [facility], , [id number], [address] [place], [address] Follow up. Call for the next available appointment. Reason for referral: evaluation and treatment.(Electronically signed by Francisco J Saini P.A.-C 05/03/2020 10:57) Name Value Range Interpretation Code Description Data Cecy rce(s) Supporting Document(s) ID Date Data Source [id number] 05/02/2020 12:52:[address] [facility] Name Value Range Interpretation Code Description Data Cecy rce(s) Supporting Document(s) DRUG SCREEN URINE [facility] URINE DRUG SCREEN Amphetamine [Presence] in Urine by Screen method NEGATIVE NORMAL: N EGATIVE [facility] BARBITURATES NEGATIVE NORMAL: NEGATIVE [facility] BENZO NEGATIVE NORMAL: NEGATIVE [facility] COCAINE NEGATIVE NORMAL: NEGATIVE [facility] Tetrahydrocannabinol [Presence] in Urine NEGATIVE NORMAL: NEGATIVE [facility] OPIATES NEGATIVE NORMAL: NEGATIVE [facility] Phencyclidine [Presence] in Urine by Screen method NEGATIVE NOR MAL: NEGATIVE [facility] \\BLDo\\URINE DRUG SCR EEN INTERPRETATION\\BLDx\\ THE CUTOFFF LEVELS FOR DETECTION ARE FOLLOWS: AMPHETAMINES 1000 ng/ml BARBITUARATES 200 ng/ml BENZODIAZEPINES 100 ng/ml THC 50 ng/ml PHENCYCLIDINE 25 ng/ml OPIATES 300 ng/ml COCAINE 300 ng/ml ALL POSITIVES ARE CONSIDERED PRESUMPTIVE POSITIVE CONFIRMATION WILL BE PERFORMED AT PHYSICIAN REQUEST. ID Date Data Source [id number] 05/02/2020 12:52:[address] [facility] Name Value Range Interpretation Code Description Data Cecy rce(s) Supporting Document(s) URINALYSIS [facility] akanksha URINALYSIS SOURCE R [facility] al COLOR yellow NORMAL: Yellow [facility] CLARITY clear NORMAL: Clear [facility] sp[facility] Specific gravity of Urine by Test strip 1.020 1.001 - 1.030 [facility] pH 6 5 - 9 [facility] al Glucose [Mass/volume] in Urine by Test strip NORM NORMAL: Negat [facility] Bilirubin.total [Presence] in Urine by Test strip NEG NORMAL: Negative [facility] Ketones [Presence] in Urine by Test strip NEG NORMAL: Negative [facility] Protein [Mass/volume] in Urine by Test strip 15 NORMAL: Negat [facility] Nitrite [Presence] in Urine by Test strip NEG NORMAL: Negative [facility] BLOOD NEG NORMAL: Negative [facility] Leukocyte esterase [Presence] in Urine by Test strip NEG [place] L: Negative [facility] Urobilinogen [Mass/volume] in Urine by Test strip NOR less alida n 1.0 mg/dL [facility] MICROSCOPIC See Below [facility] Hosp ital WBC 0 - 1 NORMAL: NONE SEEN [facility] Erythrocytes [#/volume] in Urine by Test strip 0 - 1 NORMAL: NON E SEEN [facility] EPITHELIAL FEW NORMAL: NONE SEEN [facility] Bacteria [Presence] in Urine sediment by Light microscopy Tr mela NORMAL: NONE SEEN [facility] ID Date Data Source [id number] 05/06/2020 06:25:[address] [facility] Name Value Range Interpretation Code Description Data Cecy rce(s) Supporting Document(s) Prolactin [Mass/volume] in Serum or Plasma 12.7 ng/mL 4.0-15.2 [facility] ID Date Data Source [id number] 05/05/2020 08:12:[address] [facility] Name Value Range Interpretation Code Description Data Cecy rce(s) Supporting Document(s) Valproate [Mass/volume] in Serum or Plasma <4 ug/mL 50-[address] [facility] Verified by repeat analysis Detection Limit = 4 <4 indicates None Detected Toxicity may occur at levels of 100-500. Measurements of free unbound valproic acid may improve the assess- ment of clinical response. ID Date Data Source [id number] 05/02/2020 11:44:[address] [facility] Name Value Range Interpretation Code Description Data Cecy rce(s) Supporting Document(s) SALICYLATE <0.3 mg/dL 2.0 - 20.0 L [facility] ID Date Data Source [id number] 05/02/2020 11:44:[address] [facility] Name Value Range Interpretation Code Description Data Cecy rce(s) Supporting Document(s) Creatine kinase [Enzymatic activity/volume] in Serum or Plasma 2 04 U/L 30 - [address] [facility] ID Date Data Source [id number] 05/02/2020 11:44:[address] [facility] Name Value Range Interpretation Code Description Data Cecy rce(s) Supporting Document(s) COMPREHENSIVE METABOLIC PANEL [facility] COMPREHENSIVE METABOLIC PANEL Sodium [Moles/volume] in Serum or Plasma 138 mEq/L 134 - 153 [facility] Potassium [Moles/volume] in Serum or Plasma 3.9 mEq/L 3.6 - 5.0 [facility] Chloride [Moles/volume] in Serum or Plasma 105 mEq/L 98 - 107 [facility] Carbon dioxide, total [Moles/volume] in Serum or Plasma 21 MEQ/L 22 - [address] [facility] Glucose [Mass/volume] in Serum or Plasma 112 MG/DL 65 - [address] [facility] BUN 10 MG/DL 7 - 21 [facility] al Creatinine [Mass/volume] in Serum or Plasma 0.6 MG/DL 0.7 - 1.[address] [facility] BUN/CREAT 17 8 - 27 [facility] Protein [Mass/volume] in Serum or Plasma 6.6 G/DL 6.3 - 8.2 [facility] Albumin [Mass/volume] in Serum or Plasma 4.4 G/DL 3.9 - 5.0 [facility] Globulin [Mass/volume] in Serum by calculation 2.2 GM/DL 2.4 - 3.[address] [facility] A/G RATIO 2.0 0.8 - 2.0 [facility] Calcium [Mass/volume] in Serum or Plasma 8.7 MG/DL 8.4 - 10.2 [facility] Bilirubin.total [Mass/volume] in Serum or Plasma <0.7 MG/DL 0.2 - 1.3 [facility] Alkaline phosphatase [Enzymatic activity/volume] in Serum or Plasma 112 U/L 38 - 126 [facility] Aspartate aminotransferase [Enzymatic activity/volume] in Serum or Plasma 25 U/L 5 - 40 [facility] Alanine aminotransferase [Enzymatic activity/volume] in Seru m or Plasma 28 U/L 7 - 56 [facility] Anion gap 3 in Serum or Plasma 12.0 mmol/L 8.0 - 16.0 [facility] AGE 29 yrs [facility] al NON-AA GFR >60 mL/min [facility] ital AFR AMER GFR >60 mL/min [facility] Male GFR In terprentation [...] >32 mL/min Normal ID Date Data Source [id number] 05/02/2020 11:41:[address] [facility] Name Value Range Interpretation Code Description Data Cecy rce(s) Supporting Document(s) Acetaminophen [Presence] in Urine <5.0 UG/ML 0.0 - 30.0 [facility] ID Date Data Source [id number] 05/02/2020 11:40:[address] [facility] Name Value Range Interpretation Code Description Data Cecy rce(s) Supporting Document(s) CBC W/AUTOMATED DIFF [facility] COMPLETE BLOOD COUNT Leukocytes [#/volume] in Blood by Automated count 6.9 10^3/uL 4.2 - [address] [facility] Erythrocytes [#/volume] in Blood by Automated count 5.08 10^6/uL 4. 50 - 6.30 [facility] Hemoglobin [Mass/volume] in Blood 15.1 g/dL 14.0 - 16.0 [facility] Hematocrit [Volume Fraction] of Blood by Automated count 44.7 % 4 1.0 - 51.0 [facility] Erythrocyte mean corpuscular volume [Entitic volume] by Auto mated count 88.0 fL 80.0 - 94.0 [facility] Erythrocyte mean corpuscular hemoglobin [Entitic mass] by Automated count 29.7 pg 27.0 - 34.0 [facility] Erythrocyte mean corpuscular hemoglobin concentration [Mass/volume] by Automated count 33.8 g/dL 31.0 - 36.0 [facility] Erythrocyte distribution width [Ratio] by Automated count 12.4 % 11.5 - 14.8 [facility] Platelets [#/volume] in Blood by Automated count 255 10^3/uL 150 - [address] [facility] Platelet mean volume [Entitic volume] in Blood by Automated count 9.9 fL 7.4 - 10.4 [facility] Neutrophils/100 leukocytes in Blood by Automated count 74.4 % 37. 0 - 80.0 [facility] Lymphocytes/100 leukocytes in Blood by Manual count 14.6 % 25.0 - 40.[address] [facility] Monocytes/100 leukocytes in Blood by Automated count 7.5 % 3.0 - 8.0 [facility] Eosinophils/100 leukocytes in Blood by Automated count 1.9 % 0.0 - 7.0 [facility] Basophils/100 leukocytes in Blood by Automated count 0.6 % 0.0 - 2.0 [facility] %IG 1.0 % 0.0 - 0.0 H [facility] %NRBC 0.0 % 0.0 - 0.0 [facility] al Neutrophils [#/volume] in Blood by Automated count 5.15 10^3/uL 2.00 - 6.90 [facility] Lymphocytes [#/volume] in Blood by Automated count 1.01 10^3/uL 0.60 - 3.40 [facility] Monocytes [#/volume] in Blood by Automated count 0.52 10^3/uL 0.00 - 0.90 [facility] Eosinophils [#/volume] in Blood by Automated count 0.13 10^3/uL 0.00 - 0.70 [facility] Basophils [#/volume] in Blood by Automated count 0.04 10^3/uL 0.00 - 0.20 [facility] #IG 0.07 10^3/uL 0.00 - 0.10 [facility] #NRBC 0.00 10^3/uL 0.00 - 0.00 [facility] MANUAL DIFF NOT INDICATED [facility] RBC MORPH NOT INDICATED [facility] spital ID Date Data Source [id number] 12/11/2019 07:07:[address] [facility] [address] [facility] Emergency Department [address] [place] [address] Phone #: ext- [phone] 12/11/2019 19:05 Patient: [...] rce(s) Supporting Document(s) ID Date Data Source [id number] 12/11/2019 07:07:[address] [facility] [address] [facility] Emergency Department [address] [place] [address] Phone #: ext- [phone] 12/11/2019 19:05 Patient: [...] Value Range Interpretation Code Description Data Cecy [facility](s) Supporting Document(s) ID Date Data Source [id number] 12/11/2019 07:07:00 PM [place] [address] [facility] Emergency Department [address] [place] [address] Phone #: ext [phone] 19:05 Patient: CAMILO BUTTS Sex: M : 1990 Age: 29yWeight: 88.4 kgHeight/Length: 72 inBMI: 26.5ALLERGIES: No Known Drug AllergyDate/Time Medication Administered Medication Ordered Name Value Range Interpretation Code Description Data Cecy rce(s) Supporting Document(s) ID Date Data Source [id number] 12/11/2019 07:07:00 PM [facility] [address] [facility] Emergency Department [address] [place] [address] Phone #: ext- [phone] 12/11/2019 19:05 [id number] Sex: M : 1990 Age: 29yChlamydia; gonorrhea; [...] positive, contact your healthcare provider, local clinic, [facility] to be treated, or return to our facility. You will be prescribed antibiotic medicine. Be sure to take all of the antibiotic as prescribed until it is gone or you are told to stop. Keep taking it even if you feel better. [address] [facility] Emergency Department [address] [place] [address] Phone #: [phone]- [phone] 12/11/2019 19:05 [id number] Sex: M : 1990 Age: 29y Both [...] up with your provider or the [facility] for complete STI screening, including HIV testing, and to consider ways to prevent HIV.For more information about STIs, call the CDC information line at 360-387-5894 or look at the [employer] online.When to seek medical adviceCall your healthcare [...] p ain or scrotal swelling in men 1453-4829 [employer]. [address] [place] [address]. All rights reserved. This information is not intended as asubstitute for professional medical care. Always follow your healthcare professional's instructions. You have been given the following additional information: Testing for Suspected STI [address] [facility] Emergency Department [address] [place] [address] Phone #: ext- [phone] 12/11/2019 19:05 Patient: CAMILO BUTTS Sex: M : 1990 Age: 29y(Electronically signed by HUMERA Kan 12/11/2019 21:47) Name Value Range Interpretation Code Description Data Cecy rce(s) Supporting Document(s) ID Date Data Source [id number] 12/11/2019 07:07:[address] [facility] 1 Clinical Report - Nurses [facility] Emergency Department [address] [place] [address] Phone #: [phone]- [phone] 12/11/2019 19:05 Patient: CAMILO BUTTS Sex: M : 1990 Age: 29yTRIAGEArrived by private vehicle. Historian: patient. Accompanied by (Dropped off by Medicaid cab).Triage time: 19:05 12/11/2019. Acuity: LEVEL 5.Chief Complaint: (Requests STD testing).Alert.This started today. ( Pt states "i would like to make sure i don't have no diseases". Pt denies anysymptoms;). ( Pt very vague during triage/angry/aggressvie).Treatment MEASUREMENT AND SENSING TECHNICIAN:None.SEPSIS SCREEN: NEGATIVE. Negative (no infection suspected/documented). (19:10 [...] and oral 2 Clinical Report - Nurses [facility] Department [address] [place] [address] Phone #: ext- [phone] 12/11/2019 19:05 Patient: [...] Hernandez R.N. 3 Clinical Report - Nurses [facility] Emergency Department [address] [place] [address] Phone #: ext- [phone] 12/11/2019 19:05 Patient: CAMILO BUTTS Sex: M : 1990 Age: 29yDISPOSITION / DISCHARGE Departure time: 19:56 12/11/2019. Condition at departure: stable. No learning barriers present. Reviewed warnings. Reviewed medication(s). Treatments reviewed. Reviewed referrals. Patient verbalized understanding. Written instructions provided in Jordanian. The patient was discharged by the physician fleet administrative assistant. He was discharged home and unaccompanied [...] rce(s) Supporting Document(s) ID Date Data Source [id number] 12/11/2019 07:07:00 PM [facility] 1 Clinical Report - Physicians/Mid Levels [facility] Emergency Department [address] [place] [address] Phone #: ext- [phone] 12/11/2019 19:05 Patient: CAMILO BUTTS Sex: M [...] Normal inspection. 2 Clinical Report - Physicians/Mid [facility] Emergency Department [address] [place] [address] Phone #: ext- [phone] 12/11/2019 19:05 Patient: CAMILO BUTTS Sex: M [...] Testing).INSTRUCTIONS 3 Clinical Report - Physicians/Mid Levels [facility] Emergency Department [address] [place] [address] Phone #: ext- [phone] 12/11/2019 19:05 Patient: CAMILO BUTTS Sex: M [...] rce(s) Supporting Document(s) ID Date Data Source [id number] 12/13/2019 08:10:00 AM [facility] Name Value Range Interpretation Code Description Data Cecy rce(s) Supporting Document(s) HIV 1+2 Ab+HIV1 p24 Ag [Presence] in Serum or Plasma b y Immunoassay Non Reactive Non Reactive [facility] ID Date Data Source [id number] 12/11/2019 08:51:00 PM [facility] Name Value Range Interpretation Code Description Data Cecy rce(s) Supporting Document(s) Treponema pallidum Ab [Presence] in Serum NON-REACTIVE NORMAL:NON MELBA CTIVE [facility] ID Date Data Source [id number] 12/14/2019 06:49:00 PM [facility] Name Value Range Interpretation Code Description Data Cecy rce(s) Supporting Document(s) Chlamydia trachomatis rRNA [Presence] in Unspecified specimen by Probe and target amplification method Negative Negative [facility] Neisseria gonorrhoeae rRNA [Presence] in Unspecified specimen by Probe and target amplification method Negative Negative [facility] ID Date Data Source [id number] 12/11/2019 07:34:00 PM [facility] Name Value Range Interpretation Code Description Data Cecy rce(s) Supporting Document(s) URINALYSIS [facility] akanksha URINALYSIS SOURCE R [facility] COLOR yellow NORMAL: Yellow [facility] CLARITY clear NORMAL: Clear [facility] Specific gravity of Urine by Test strip 1.010 1.001 - 1.030 [facility] pH 6 5 - [facility] Glucose [Mass/volume] in Urine by Test strip NORM NORMAL: Negat delia [facility] Bilirubin.total [Presence] in Urine by Test strip NEG NORMAL: Negative [facility] Ketones [Presence] in Urine by Test strip NEG NORMAL: Negative [facility] Protein [Mass/volume] in Urine by Test strip NEG NORMAL: Negat delia [facility] Nitrite [Presence] in Urine by Test strip NEG NORMAL: Negative [facility] BLOOD NEG NORMAL: Negative [facility] Leukocyte esterase [Presence] in Urine by Test strip NEG [place] L: Negative [facility] Urobilinogen [Mass/volume] in Urine by Test strip NOR less alida n 1.0 mg/dL [facility] MICROSCOPIC Not Indicate [facility] ospital ID Date Data Source [id number] 11/07/2019 08:51:00 [place] [address] RESPIRATORY CARE REPORT ==== ---------NAME------- NUMBER SEX AGE ADMIT DISC. XRAY# F/C JULIAN Navarro [id number] 29 11/06/19 11/06/19 [id number] XBE E/R DATE OF : 1990 M/R# [id number] #: [id number] TR-07 LOCATION: EMERGENCY DEPT EKG [id number] COMP LETE:11/07/19 03:07 [place] [id number] PHYSICIAN: SOLEDAD SAINI [facility] Name Value Range Interpretation Code Description Data Cecy rce(s) Supporting Document(s) ID Date Data Source [id number] 11/07/2019 04:06:00 [place] [address] PHONE: [phone] FAX: [phone] Name .................. : BENJAMÍN Navarro Acct Number.................. : [id number] ROOM. ................. : TR-07 MR Number ................... : [id number] Stay type ............. : E/R Discharge Date......... ... : 11/06/19 Admit Date ......... : 11/06/19 Admit Phys .................... : AMERNATH L Date of ....... : 1990 Family Phys ................... : NON STAFF Phone .................. : [phone] Age ................................ : 29 Film# .................. .:[id number] Sex ................................. : M Unsigned transcriptions are preliminary reports and do not represent a medical or legal document CHEST 2 VIEWS [id number] COMPLETE:11/06/19 14:30 KBO 47088 Reason(s): transient lightheadedness; resolved CHEST X-RAY: 2- VIEWS INDICATION: Transient lightheadedness, which has now resolved. FINDINGS: The cardiac and mediastinal silhouettes appear normal and the lungs are clear. The bones and soft tissues are normal. The upper abdomen is unremarkable. IMPRESSION: No acute disease identifiable. Electronically Reviewed and Signed By Kevin Ponce M.D. , 11/07/19 16:06, [facility] Transcribe Initials: FIORELLA , Transcribe Date: 11/06/19 18:06, Dictation Date: Copy for: PARVEEN GALLAGHER via fax Copy for: EMERGENCY DEPT via modem Copy for: 710 MED REC DISCHARGED Page 1 of 1 Name Value Range Interpretation Code Description Data Cecy rce(s) Supporting Document(s) ID Date Data Source [id number] 11/06/2019 10:57:[address] [facility] [address] [facility] Emergency Department [address] [place] [address] Phone #: ext- [phone] 11/06/2019 10:53 Patient: CAMILO BUTTS Sex: M : 1990 Age: 29yWEIGHT:87.2 kg (M) HEIGHT:69 inches (E) BMI:28.4ALLERGIES: No Known Drug AllergyLAB ORDERSOrder Description Priority Entered Acknowledged InitialedCBC w Diff STAT 11:22 11/06/2019 11:28 Willis Francisco J Saini clay molder, Cornelio ER P.A.-C; [id number] STAT 11:22 11/06/2019 11:28 Willis Francisco J Saini clay molder, Cornelio BENNETT P.A.-C; [id number] (Clean STAT 11:22 11/06/2019 11:28 [facility]) Francisco J Saini clay molder, Cornelio BENNETT P.A.-C; [id number] Nasal A B STAT 11:22 11/06/2019 11:50 January Francisco J Lawson.N. P.A.-C;HIV RNA Quant STAT 11:22 11/06/2019 11:43 Willis Francisco J Saini clay molder, Cornelio BENNETT P.A.-C; Tech1 NOTES: ER HIV [...] 11:33 Neida Strickland R.N., P.A.-C; [address] [facility] Emergency Department [address] [place] [address] Phone #: [phone]- [phone] 11/06/2019 10:53 Patient: CAMILO BUTTS Sex: M : 1990 Age: 29ySaline Lock 11:11/06/2019 Cancelled: Patient Refusal 11:50 Francisco J Strickland R.N.;EKG 11:11/06/2019 Ack'd: 11:30 11:43 Ruthann Saini Willis clay molder, clay molder, Cornelio BENNETT P.A.-C; Cornelio BENNETT Tech1 Tech1[Electronically signed by Neida Strickland R.N. (:11/06/2019)][Electronically signed by Francisco J Saini P.A.-C (01:11/07/2019)][Electronically locked by Neida Strickland R.N. (13:11/06/2019)] Name Value Range Interpretation Code Description Data Cecy rce(s) Supporting Document(s) ID Date Data Source [id number] 11/06/2019 10:57:[address] [facility] [address] [facility] Emergency Department [address] [place] [address] Phone #: ext- [phone] 11/06/2019 10:53 Patient: [...] Value Range Interpretation Code Description Data [facility](s) Supporting Document(s) ID Date Data Source [id number] 11/06/2019 10:57:[address] [facility] [address] [facility] Emergency Department [address] [place] [address] Phone #: ext- [phone] 10:53 Patient: CAMILO BUTTS Sex: M : 1990 Age: 29yWeight: 87.2 kgHeight/Length: 69 inBMI: 28.4ALLERGIES: No Known Drug AllergyDate/Time Medication Administered Medication Ordered Name Value Range Interpretation Code Description Data Cecy [facility](s) Supporting Document(s) ID Date Data Source [id number] 11/06/2019 10:57:[address] [facility] [address] [facility] Emergency Department [address] [place] [address] Phone #: ext- [phone] 11/06/2019 10:53 Patient: [...] rce(s) Supporting Document(s) ID Date Data Source [id number] 11/06/2019 10:57:[address] [facility] 1 Clinical Report - Nurses [facility] Emergency Department [address] [place] [address] Phone #: [phone]- [phone] 11/06/2019 10:53 Patient: CAMILO BUTTS Sex: M [...] Attention Deficit Hyperactivity Disorder. --11:20 11/06/19 Compa Logna.-CThe following entry was modified by Compa Logan.-C, [...] of CRE. 2 Clinical Report - Nurses [facility] Emergency Department [address] [place] [address] Phone #: ext- [phone] 11/06/2019 10:53 Patient: CAMILO BUTTS [facility]#: [id number] Sex: M : 1990 Age: 29y SELF [...] and shown to the PA. --11:43 11/06/19 Willis clay molderCornelio ER Tech1 11:40 11/06/19. Patient ID band checked for patient name and birthdate: patient confirmed. Flu swab obtained by RN via nasal swab. Labeled in the presence of the patient and sent to lab. --11:50 11/06/19 Neida Strickland R.N. 3 Clinical Report - Nurses [facility] Emergency Department [address] [place] [address] Phone #: ext- [phone] 11/06/2019 10:53 Patient: CAMILO BUTTS Sex: M : 1990 Age: 29y 11:45 11/06/19. 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 --11:51 11/06/19 Neida Strickland R.N. ( RN [...] F. Pain level now 0/10. --13:00 11/06/19 Willis clay molder, Cornelio, ER Tech1 Condition at departure: improved and stable. No learning barriers present. Discharge instructions provided and reviewed with the patient. Patient verbalized understanding. Written instructions provided in Jordanian. The patient was discharged by the physician fleet administrative assistant. He was discharged home. He left ambulatory and via taxi. 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 --13:11/06/19 Neida Strickland R.N.Locked/Released at 11/06/2019 13:03 by Neida Strickland R.N. Name Value Range Interpretation Code Description Data Cecy rce(s) Supporting Document(s) ID Date Data Source [id number] 11/06/2019 10:57:00 AM [facility] 1 Clinical Report - Physicians/Mid Levels [facility] Emergency Department [address] [place] [address] Phone #: ext- [phone] 11/06/2019 10:53 Patient: [...] HISTORYSee nurses notes. Seizures. Problems: Insomnia [Chronic]. [place] disorder. Lifestyle / Substance Problems. Neurological Disease. Bipolar Disorder. ADHD - Attention Deficit Hyperactivity Disorder. Other Disease. Seizure Disorder. Tendonitis. Tension-Type Headache. Obsessive Compulsive Disorder. Ocd. Paranoid schizophrenia. Tbi. 2 Clinical Report - Physicians/Mid Levels [facility] Emergency Department [address] [place] [address] Phone #: ext- [phone] 11/06/2019 10:53 Patient: [...] normal. 3 Clinical Report - Physicians/Mid Levels [facility] Emergency Department [address] [place] [address] Phone #: ext- [phone] 11/06/2019 10:53 Patient: [...] 70-79yrs 4 Clinical Report - Physicians/Mid Levels [facility] Emergency Department [address] [place] [address] Phone #: ext- [phone] 11/06/2019 10:53 Patient: CAMILO BUTTS Sex: M : 1990 Age: 29y >42 mL/min Normal 80 and above >35 mL/min Normal Female GFR Interpretation 20-39 yrs >60 mL/min Normal 40-49 yrs >58 mL/min Normal 50-59 yrs >51 mL/min Normal 60-69 yrs >45 mL/min Normal 70-79 yrs >39 mL/min Normal 80 and above >32 mL/min Normal Urinalysis: ([facility]: 11/06/2019 11:18) ( [facility] 11/06/2019 11:55) Final results Test Result Flag [...] Nasal A B: ([facility]: 11/06/2019 11:35) ( [facility] 11/06/2019 12:11) Final results Test Result Flag [...] HIV RNA Quant: ([facility]: 11/06/2019 11:22) ( [facility] 11/06/2019 11:30) Canceled CMTS: ER HIV lab; [...] results. 5 Clinical Report - Physicians/Mid Levels [facility] Emergency Department [address] [place] [address] Phone #: ext- [phone] 11/06/2019 10:53 Patient: CAMILO BUTTS Sex: M [...] patient. 6 Clinical Report - Physicians/Mid Levels [facility] Emergency Department [address] [place] [address] Phone #: ext- [phone] 11/06/2019 10:53 Patient: CAMILO BUTTS Sex: M : 1990 Age: 29y(Electronically signed by Francisco J Saini P.A.-C 11/07/2019 01:28) Name Value Range Interpretation Code Description Data Cecy rce(s) Supporting Document(s) ID Date Data Source [id number] 11/07/2019 10:12:00 AM [facility] Name Value Range Interpretation Code Description Data Cecy rce(s) Supporting Document(s) HIV 1+2 Ab+HIV1 p24 Ag [Presence] in Serum or Plasma b y Immunoassay Non Reactive Non Reactive [facility] ID Date Data Source [id number] 11/06/2019 12:10:00 PM [facility] Name Value Range Interpretation Code Description Data Cecy rce(s) Supporting Document(s) COMPREHENSIVE METABOLIC PANEL [facility] COMPREHENSIVE METABOLIC PANEL Sodium [Moles/volume] in Serum or Plasma 141 mEq/L 134 - 153 [facility] Potassium [Moles/volume] in Serum or Plasma 4.0 mEq/L 3.6 - 5.0 [facility] Chloride [Moles/volume] in Serum or Plasma 105 mEq/L 98 - 107 [facility] Carbon dioxide, total [Moles/volume] in Serum or Plasma 26 MEQ/L 22 - 30 [facility] Glucose [Mass/volume] in Serum or Plasma 98 MG/DL 65 - 110 [facility] BUN 17 MG/DL 7 - 21 [facility] Creatinine [Mass/volume] in Serum or Plasma 0.7 MG/DL 0.7 - 1.5 [facility] BUN/CREAT 24 8 - 27 [facility] Protein [Mass/volume] in Serum or Plasma 6.7 G/DL 6.3 - 8.2 [facility] Albumin [Mass/volume] in Serum or Plasma 4.3 G/DL 3.9 - 5.0 [facility] Globulin [Mass/volume] in Serum by calculation 2.4 GM/DL 2.4 - 3.2 [facility] A/G RATIO 1.8 0.8 - 2.0 [facility] Calcium [Mass/volume] in Serum or Plasma 9.5 MG/DL 8.4 - 10.2 [facility] Bilirubin.total [Mass/volume] in Serum or Plasma 0.8 MG/DL 0.2 - 1.3 [facility] Alkaline phosphatase [Enzymatic activity/volume] in Serum or Plasma 107 U/L 38 - 126 [facility] Aspartate aminotransferase [Enzymatic activity/volume] in Serum or Plasma 18 U/L 5 - 40 [facility] Alanine aminotransferase [Enzymatic activity/volume] in Seru m or Plasma 24 U/L 7 - 56 [facility] Anion gap 3 in Serum or Plasma 10.0 mmol/L 8.0 - 16.0 [facility] AGE 29 yrs [facility] NON-AA GFR >60 mL/min [facility] ital AFR AMER GFR >60 mL/min [facility] Male GFR In terprentation [...] >32 mL/min Normal ID Date Data Source [id number] 11/06/2019 11:57:[address] [facility] Name Value Range Interpretation Code Description Data Cecy rce(s) Supporting Document(s) CBC W/AUTOMATED DIFF [facility] COMPLETE BLOOD COUNT Leukocytes [#/volume] in Blood by Automated count 6.8 10^3/uL 4.2 - [address] [facility] Erythrocytes [#/volume] in Blood by Automated count 5.42 10^6/uL 4. 50 - 6.30 [facility] Hemoglobin [Mass/volume] in Blood 16.1 g/dL 14.0 - 16.[address] [facility] Hematocrit [Volume Fraction] of Blood by Automated count 47.4 % 4 1.0 - 51.0 [facility] Erythrocyte mean corpuscular volume [Entitic volume] by Auto mated count 87.5 fL 80.0 - 94.0 [facility] Erythrocyte mean corpuscular hemoglobin [Entitic mass] by Automated count 29.7 pg 27.0 - 34.0 [facility] Erythrocyte mean corpuscular hemoglobin concentration [Mass/volume] by Automated count 34.0 g/dL 31.0 - 36.0 [facility] Erythrocyte distribution width [Ratio] by Automated count 12.4 % 11.5 - 14.8 [facility] Platelets [#/volume] in Blood by Automated count 237 10^3/uL 150 - [address] [facility] Platelet mean volume [Entitic volume] in Blood by Automated count 9.5 fL 7.4 - 10.4 [facility] Neutrophils/100 leukocytes in Blood by Automated count 69.2 % 37. 0 - 80.0 [facility] Lymphocytes/100 leukocytes in Blood by Manual count 20.1 % 25.0 - 40.[address] [facility] Monocytes/100 leukocytes in Blood by Automated count 7.3 % 3.0 - 8.0 [facility] Eosinophils/100 leukocytes in Blood by Automated count 2.2 % 0.0 - 7.0 [facility] Basophils/100 leukocytes in Blood by Automated count 0.6 % 0.0 - 2.0 [facility] %IG 0.6 % 0.0 - 0.0 H [facility] %NRBC 0.0 % 0.0 - 0.0 [facility] Neut[facility] [#/volume] in Blood by Automated count 4.73 10^3/uL 2.00 - 6.90 [facility] Lymphocytes [#/volume] in Blood by Automated count 1.37 10^3/uL 0.60 - 3.40 [facility] Monocytes [#/volume] in Blood by Automated count 0.50 10^3/uL 0.00 - 0.90 [facility] Eosinophils [#/volume] in Blood by Automated count 0.15 10^3/uL 0.00 - 0.70 [facility] Basophils [#/volume] in Blood by Automated count 0.04 10^3/uL 0.00 - 0.20 [facility] #IG 0.04 10^3/uL 0.00 - 0.10 [facility] #NRBC 0.00 10^3/uL 0.00 - 0.00 [facility] MANUAL DIFF NOT INDICATED [facility] RBC MORPH NOT INDICATED [facility] spital ID Date Data Source [id number] 11/06/2019 12:11:[address] [facility] Name Value Range Interpretation Code Description Data Cecy rce(s) Supporting Document(s) Influenza virus A Ag [Presence] in Nasopharynx by Immunoassa y NEGATIVE NORMAL: NEGATIVE [facility] Influenza virus B Ag [Presence] in Nasopharynx by Immunoassa y NEGATIVE NORMAL: NEGATIVE [facility] NEGATIVENEGATIVE PROCEDURAL CO NTROL VALID KIT LOT [...] other patient managementdecisions. ID Date Data Source [id number] 11/06/2019 11:55:[address] [facility] Name Value Range Interpretation Code Description Data Cecy rce(s) Supporting Document(s) [facility]YS[facility] SOURCE R [facility] COL[facility] yellow NORMAL: Yellow [facility] CLARITY clear NORMAL: Clear [facility] Specific gravity of Urine by Test strip 1.020 1.001 - 1.030 [facility] pH 7 5 - 9 [facility] al Glucose [Mass/volume] in Urine by Test strip NORM NORMAL: Negat [facility] Bilirubin.total [Presence] in Urine by Test strip NEG NORMAL: Negative [facility] Ketones [Presence] in Urine by Test strip NEG NORMAL: Negative [facility] Protein [Mass/volume] in Urine by Test strip NEG NORMAL: Negat [facility] Nitrite [Presence] in Urine by Test strip NEG NORMAL: Negative [facility] BLOOD NEG NORMAL: Negative [facility] Leukocyte esterase [Presence] in Urine by Test strip NEG [place] L: Negative [facility] Urobilinogen [Mass/volume] in Urine by Test strip 4 less alida n 1.0 mg/dL [facility] MICROSCOPIC Not Indicate [facility] Procedure Social History Code Duration Value Status Description Data Source(s ) Smoking 11/17/2020 12:00:00 AM EST Smoker, current status unkn own completed Smoker, current status unknown [facility] ([facility]) Smoking 11/02/2020 12:00:00 AM EST Smoker, current status unkn own completed Smoker, current status unknown [facility] ([facility]) Smoking 10/20/2020 12:00:00 AM EST Smoker, current status unkn own completed Smoker, current status unknown [facility] ([facility]) Smoking 09/24/2020 12:00:00 AM EST Smoker, current status unkn own completed Smoker, current status unknown [facility] ([facility]) Smoking 09/02/2020 12:00:00 AM EST Smoker, current status unkn own completed Smoker, current status unknown [facility]) Smoking 08/19/2020 12:00:00 AM EDT Smoker, current status unkn own completed Smoker, current status unknown [facility] ([facility]) Smoking 08/18/2020 12:00:00 AM EDT Smoker, current status unkn own completed Smoker, current status unknown [facility] ([facility]) Smoking 07/29/2020 12:00:00 AM EDT Smoker, current status unkn own completed Smoker, current status unknown [facility] ([facility]) Smoking 07/22/2020 12:00:00 AM EDT Smoker, current status unkn own completed Smoker, current status unknown [facility] ([facility]) Smoking 07/10/2020 12:00:00 AM EDT Smoker, current status unkn own completed Smoker, current status unknown [facility] ([facility]) Smoking 04/13/2020 12:00:00 AM EDT Smoker, current status unkn own completed Smoker, current status unknown [facility] ([facility]) Smoking 02/24/2020 12:00:00 AM EDT Smoker, current status unkn own completed Smoker, current status unknown [facility] ([facility]) Smoking 02/19/2020 12:00:00 AM EDT Smoker, current status unkn own completed Smoker, current status unknown [facility] ([facility]) Smoking 01/28/2020 12:00:00 AM EDT Smoker, current status unkn own completed Smoker, current status unknown [facility] ([facility]) Smoking 01/10/2020 12:00:00 AM EDT Smoker, current status unkn own completed Smoker, current status unknown [facility] ([facility]) Smoking 12/26/2019 12:00:00 AM EST Smoker, current status unkn own completed Smoker, current status unknown [facility] ([facility]) Smoking 12/09/2019 12:00:00 AM EST Smoker, current status unkn own completed Smoker, current status unknown [facility] ([facility]) Smoking 10/21/2019 12:00:00 AM EST Smoker, current status unkn own completed Smoker, current status unknown [facility] ([facility]) Smoking 10/07/2019 12:00:00 AM EST Smoker, current status unkn own completed Smoker, current status unknown [facility] ([facility])
== END 2020-11-18 09:22 | disposition home or self-care (01) ==
LOC: M ED 06:17
DX: F43.0 Acute stress reaction (principal); Z87.820 Personal history of traumatic brain injury; F17.200 Nicotine dependence, unspecified, uncomplicated; Z79.899 Other long term (current) drug therapy; Z88.1 Allergy status to other antibiotic agents

== ENCOUNTER 2020-11-18 13:34 | Emergency (ER) | payer MEDICAID ==
[~2020-11-18] VITALS: Ht 175.3 cm; Wt 89.1 kg
--- OUTSIDE RECORDS SUMMARY | 2020-11-18 13:41 | CCD ---
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 [...] rce(s) Supporting Document(s) ID Date Data Source [id number] 08/29/2020 12:13:[address] [facility] 1 General Instructions [facility] Emergency Department [address] [place] [address] Phone #: ext- [phone] 08/29/2020 00:12 Patient: [...] yourself at most times 2 General Instructions [facility] Emergency Department [address] [place] [address] Phone #: ext- [phone] 08/29/2020 00:12 Patient: [...] providers about all of the prescription medicines, irix-lxr-urpqfcp medicines, vitamins, and supplements you take. Certain [...] operates a toll-free ADA information line at: [phone] (Voice); or [phone] (TTY). They can help you locate a local office.Follow-up careFollow up with your healthcare provider, or as advised.Call [phone] if any of these occur: You have suicidal thoughts, a suicide plan, and the means to carry out the plan Trouble breathing 3 General Instructions [facility] Emergency Department [address] [place] [address] Phone #: ext- [phone] 08/29/2020 00:12 [id number] Sex: M : 1990 Age: 29y Very [...] who have expressed concern over your behavior [id number] [employer]. [address] [place] [address]. All rights reserved. This information is not intended as asubstitute for professional medical care. Always follow your healthcare professional's instructions. You have been given the following additional information: Schizophrenia, Paranoid Type(Electronically signed by Prudencio Cruz, Physician 08/30/2020 08:42) Name Value Range Interpretation Code Description Data Cecy rce(s) Supporting Document(s) ID Date Data Source [id number] 08/29/2020 12:13:00 AM EST [facility] 1 Clinical Report - Nurses [facility] Emergency Department [address] [place] [address] Phone #: ext- [phone] 08/29/2020 00:12 Patient: [...] full sentences, no distress noted, patent airway.).Treatment RADIOLOGICAL ENGINEER:None. --00:22 08/29/20 Carito Barry R.N.00:14 08/29/20. BP: [...] Barry R.N.PROBLEMS:Insomnia: Chronic. --00:20 08/29/20 Carito Barry R.N.[place] disorder.Lifestyle / Substance Problems.Bipolar Disorder.Anxiety Reaction.ADHD - Attention Deficit Hyperactivity Disorder.Neurological Disease.Tension-Type Headache.Seizure Disorder.Seizure.STD - Sexually Transmitted Disease.Tendonitis.Tbi. 2 Clinical Report - Nurses [facility] Emergency Department [address] [place] [address] Phone #: ext- [phone] 08/29/2020 00:12 Patient: [...] integrity risk 3 Clinical Report - Nurses [facility] Emergency Department [address] [place] [address] Phone #: ext- [phone] 08/29/2020 00:12 Patient: CAMILO BUTTS [facility]#: [id number] Sex: M : 1990 Age: 29y identified. [...] reviewed with patient. Verbalizes understanding. --01:40 08/29/20 Hnah Carr RN The patient is calm, resting [...] Patient verbalized understanding. Written instructions provided in Spanish. The patient was discharged home. He left ambulatory and via taxi. 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 --03:44 08/29/20 Carito Barry R.N. 4 Clinical Report - Nurses [facility] Emergency Department [address] [place] [address] Phone #: ext- [phone] 08/29/2020 00:12 Patient: [...] rce(s) Supporting Document(s) ID Date Data Source [id number] 08/29/2020 12:13:00 AM EST [facility] 1 Clinical Report - Physicians/Mid Levels [facility] Emergency Department [address] [place] [address] Phone #: ext- [phone] 08/29/2020 00:12 Patient: [...] Abrasions 2 Clinical Report - Physicians/Mid Levels [facility] Emergency Department [address] [place] [address] Phone #: ext- [phone] 08/29/2020 00:12 Patient: [...] ABD //T// PELV W/O ORAL W/[place] [address] ---------N RYANN--------- NUMBER SEX AGE ADMIT DISC. XRAY# F/C TYPE BENJAMÍN Navarro [id number] M 29 08/29/20 [id number] NA E/R DATE OF : 1990 M/R# [id number] #: [id number] TR-03 3 Clinical Report - Physicians/Mid Levels [facility] Emergency Department [address] [place] [address] Phone #: ext- [phone] 08/29/2020 00:12 [id number] Sex: M : 1990 Age: 29y LOCATION: EMERGENCY DEPT TRANSCRIBED: 08/29/20 2:[address] ABD //T// PELV W/O ORAL W/[place] [address] COMPLETED:08/29/20 2:18 RLB [id number] Reason(s): Trauma/Injury PHYSICIAN: ANTHONY BR = R [...] pathologyevident.IMPRESSION: 4 Clinical Report - Physicians/Mid Levels [facility] Emergency Department [address] [place] [address] Phone #: ext- [phone] 08/29/2020 00:12 Patient: [...] Finalresults Exam CT ST NECK W/[place] [address] ---------NAME--------- NUMBER SEX AGE ADMIT DISC. XRAY# F/C TYPE BENJAMÍN Navarro [id number] M 29 08/29/20 [id number] NA E/R DATE OF : 1990 M/R# [id number] #: [id number] TR-03 LOCATION: EMERGENCY DEPT TRANSCRIBED: 08/29/20 2:[address] NECK W/O CONTRAST [address]08[address] COMPLETED:08/29/20 2:18 RLB [id number] Reason(s): Trauma/Injury PHYSICIAN: ANTHONY BR R A [...] or gas. 5 Clinical Report - Physicians/Mid [facility] Emergency Department [address] [place] [address] Phone #: ext- [phone] 08/29/2020 00:12 Patient: [...] Final results Exam CT THORAX W/O CONTRAST [address] [address] ---------NAME--------- NUMBER SEX AGE ADMIT DISC. XRAY# F/C TYPE MANTLE CAMILO D [id number] M 29 08/29/20 [id number] NA E/R DATE OF : 1990 M/R# [id number] #: [id number] TR-03 LOCATION: EMERGENCY DEPT TRANSCRIBED: 08/29/20 2:[address] THORAX W/O CONTRAST 901[address] COMPLETED:08/29/20 2:18 RLB [id number] Reason(s): Trauma/Injury PHYSICIAN: ANTHONY BR R A [...] provided. 6 Clinical Report - Physicians/Mid Levels [facility] Emergency Department [address] [place] [address] Phone #: ext- [phone] 08/29/2020 00:12 Patient: [...] of imperative reconstructive techniques. Electronically Signed By: rBidger Regalado M.D. , Radiologist Date/Time: 08/29/20 02:56Urinalysis: [...] NEGATIVE (NORMAL: NEGAT 7 Clinical Report - Physicians/[facility] Emergency Department [address] [place] [address] Phone #: ext- [phone] 08/29/2020 00:12 Patient: [...] PRESUMPTIVE POSITIVE CONFIRMATION WILL BE PERFORMED AT PHYSICIANRUST.CMP: (LULU: 08/29/2020 01:35) ( MsgRcvd 08/29/2020 02:03) [...] Male GFR Interprentation 20-49 yrs >60 mL/min Yldxdr45-98 yrs >56 mL/min Normal 60-69 yrs >49 mL/min Normal 70-79yrs>42 mL/min Normal 80 and above >35 mL/min Normal Female GFRInterpretation 20-39 yrs >60 mL/min Normal 40-49 yrs >58 mL/minNormal 50-59 yrs >51 mL/min Normal 60-69 yrs >45 mL/min Wneaev90-00 yrs >39 mL/min Normal 80 and above [...] 8 C linical Report - Physicians/Mid Levels [facility] Emergency Department [address] [place] [address] Phone #: ext- [phone] 08/29/2020 00:12 Patient: CAMILO BUTTS Sex: M [...] tendencies.). 9 Clinical Report - Physicians/Mid Levels [facility] Emergency Department [address] [place] [address] Phone #: ext- [phone] 08/29/2020 00:12 Patient: [...] rce(s) Supporting Document(s) ID Date Data Source [id number] 08/29/2020 02:56:00 AM [facility] [address] [facility] [place] [address] ---------NAME--------- NUMBER SEX AGE ADMIT DISC. XRAY# F/C TYPE MANTLE CAMILO Navarro [id number] M 29 08/29/20 [id number] NA E/R DATE OF : 1990 M/R# [id number] #: [id number] TR-03 LOCATION: EMERGENCY DEPT TRANSCRIBED: 08/29/20 2:[address] THORAX W/O CONTRAST 246[address] COMPLETED:08/29/20 2:18 RLB [id number] Reason(s): Trauma/Injury PHYSICIAN: ANTHONY BR R A [...] rce(s) Supporting Document(s) ID Date Data Source [id number] 08/29/2020 02:39:[address] [address] ---------NAME--------- NUMBER SEX AGE ADMIT DISC. XRAY# F/C TYPE MANTLE CAMILO D [id number] M 29 08/29/20 [id number] NA E/R DATE OF : 1990 M/R# [id number] #: [id number] TR-03 LOCATION: EMERGENCY DEPT TRANSCRIBED: 08/29/20 2:[address] ABD //T// PELV W/O ORAL W/[place] [address] COMPLETED:08/29/20 2:18 RLB [id number] Reason(s): Trauma/Injury PHYSICIAN: ANTHONY BR======== R A [...] rce(s) Supporting Document(s) ID Date Data Source [id number] 08/29/2020 02:37:00 AM [place] [address] [facility] [place] [place] [address] ---------NAME--------- NUMBER SEX AGE ADMIT DISC. XRAY# F/C TYPE MANTLE CAMILO D [id number] M 29 08/29/20 [id number] NA E/R DATE OF : 1990 M/R# [id number] PH#: [phone] TR-03 LOCATION: EMERGENCY DEPT TRANSCRIBED: 08/29/20 2:[address] NECK W/O CONTRAST [address] COMPLETED:08/29/20 2:18 RLB [id number] Reason(s): Trauma/Injury PHYSICIAN: ANTHONY BR R A [...] rce(s) Supporting Document(s) ID Date Data Source [id number] 08/29/2020 02:02:[address] [facility] Name Value Range Interpretation Code Description Data Cecy rce(s) Supporting Document(s) Lipase [Enzymatic activity/volume] in Serum or Plasma 37 U/L 13 - 60 [facility] ID Date Data Source [id number] 08/29/2020 02:02:[address] [facility] Name Value Range Interpretation Code Description Data Cecy rce(s) Supporting Document(s) COMPREHENSIVE METABOLIC PANEL [facility] COMPREHENSIVE METABOLIC PANEL Sodium [Moles/volume] in Serum or Plasma 136 mEq/L 134 - 153 [facility] Potassium [Moles/volume] in Serum or Plasma 3.8 mEq/L 3.6 - 5.0 [facility] Chloride [Moles/volume] in Serum or Plasma 103 mEq/L 98 - 107 [facility] Carbon dioxide, total [Moles/volume] in Serum or Plasma 26 MEQ/L 22 - 30 [facility] Glucose [Mass/volume] in Serum or Plasma 106 MG/DL 65 - 110 [facility] BUN 14 MG/DL 7 - 21 [facility] al Creatinine [Mass/volume] in Serum or Plasma 0.6 MG/DL 0.7 - 1.5 L [facility] BUN/CREAT 23 8 - 27 [facility] Protein [Mass/volume] in Serum or Plasma 6.6 G/DL 6.3 - 8.2 [facility] Albumin [Mass/volume] in Serum or Plasma 4.3 G/DL 3.9 - 5.0 [facility] Globulin [Mass/volume] in Serum by calculation 2.3 GM/DL 2.4 - 3.2 L [facility] A/G RATIO 1.9 0.8 - 2.0 [facility] Calcium [Mass/volume] in Serum or Plasma 9.3 MG/DL 8.4 - 10.2 [facility] Bilirubin.total [Mass/volume] in Serum or Plasma 0.8 MG/DL 0.2 - 1.3 [facility] Alkaline phosphatase [Enzymatic activity/volume] in Serum or Plasma 108 U/L 38 - 126 [facility] Aspartate aminotransferase [Enzymatic activity/volume] in Serum or Plasma 17 U/L 5 - 40 [facility] Alanine aminotransferase [Enzymatic activity/volume] in Seru m or Plasma 18 U/L 7 - 56 [facility] Anion gap 3 in Serum or Plasma 7.0 mmol/L 8.0 - 16.0 L [facility] AGE 29 yrs [facility] al NON-AA GFR >60 mL/min [facility] ital AFR AMER GFR >60 mL/min [facility] Male GFR In terprentation [...] >32 mL/min Normal ID Date Data Source [id number] 08/29/2020 01:45:[address] [facility] Name Value Range Interpretation Code Description Data Cecy rce(s) Supporting Document(s) Lactate [Moles/volume] in Serum or Plasma 1.0 MMOL/L 0.2 - 2.2 [facility] ID Date Data Source [id number] 08/29/2020 01:42:[address] [facility] Name Value Range Interpretation Code Description Data Cecy rce(s) Supporting Document(s) CBC W/AUTOMATED DIFF [facility] COMPLETE BLOOD COUNT Leukocytes [#/volume] in Blood by Automated count 8.4 10^3/uL 4.2 - 1 1.0 [facility] Erythrocytes [#/volume] in Blood by Automated count 4.97 10^6/uL 4. 50 - 6.30 [facility] Hemoglobin [Mass/volume] in Blood 15.1 g/dL 14.0 - 16.0 [facility] Hematocrit [Volume Fraction] of Blood by Automated count 43.8 % 4 1.0 - 51.0 [facility] Erythrocyte mean corpuscular volume [Entitic volume] by Auto mated count 88.1 fL 80.0 - 94.0 [facility] Erythrocyte mean corpuscular hemoglobin [Entitic mass] by Automated count 30.4 pg 27.0 - 34.0 [facility] Erythrocyte mean corpuscular hemoglobin concentration [Mass/volume] by Automated count 34.5 g/dL 31.0 - 36.0 [facility] Erythrocyte distribution width [Ratio] by Automated count 12.6 % 11.5 - 14.8 [facility] Platelets [#/volume] in Blood by Automated count 258 10^3/uL 150 - 45 0 [facility] Platelet mean volume [Entitic volume] in Blood by Automated count 9.9 fL 7.4 - 10.4 [facility] Neutrophils/100 leukocytes in Blood by Automated count 59.4 % 37. 0 - 80.0 [facility] Lymphocytes/100 leukocytes in Blood by Manual count 28.6 % 25.0 - 40.0 [facility] Monocytes/100 leukocytes in Blood by Automated count 8.9 % 3.0 - 8.0 H [facility] Eosinophils/100 leukocytes in Blood by Automated count 2.1 % 0.0 - 7.0 [facility] Basophils/100 leukocytes in Blood by Automated count 0.6 % 0.0 - 2.0 [facility] %IG 0.4 % 0.0 - 0.0 H [facility] al %NRBC 0.0 % 0.0 - 0.0 [facility] al Neutrophils [#/volume] in Blood by Automated count 4.99 10^3/uL 2.00 - 6.90 [facility] Lymphocytes [#/volume] in Blood by Automated count 2.40 10^3/uL 0.60 - 3.40 [facility] Monocytes [#/volume] in Blood by Automated count 0.75 10^3/uL 0.00 - 0.90 [facility] Eosinophils [#/volume] in Blood by Automated count 0.18 10^3/uL 0.00 - 0.70 [facility] Basophils [#/volume] in Blood by Automated count 0.05 10^3/uL 0.00 - 0.20 [facility] #IG 0.03 10^3/uL 0.00 - 0.10 [facility] ospital #NRBC 0.00 10^3/uL 0.00 - 0.00 [facility]ital MANUAL DIFF NOT INDICATED [facility] RBC MORPH NOT INDICATED [facility] spital ID Date Data Source [id number] 08/29/2020 01:40:00 AM EST [facility] Name Value Range Interpretation Code Description Data Cecy rce(s) Supporting Document(s) DRUG SCREEN URINE [facility] URINE DRUG SCREEN Amphetamine [Presence] in Urine by Screen method NEGATIVE NORMAL: N EGATIVE [facility] BARBITURATES NEGATIVE NORMAL: NEGATIVE [facility] BENZO NEGATIVE NORMAL: NEGATIVE [facility] COCAINE NEGATIVE NORMAL: NEGATIVE [facility] Tetrahydrocannabinol [Presence] in Urine NEGATIVE NORMAL: NEGATIVE [facility] OPIATES NEGATIVE NORMAL: NEGATIVE [facility] Phencyclidine [Presence] in Urine by Screen method NEGATIVE NOR MAL: NEGATIVE [facility] \\BLDo\\URINE DRUG SCR EEN INTERPRETATION\\BLDx\\ THE CUTOFFF LEVELS FOR DETECTION ARE FOLLOWS: AMPHETAMINES 1000 ng/ml BARBITUARATES 200 ng/ml BENZODIAZEPINES 100 ng/ml THC 50 ng/ml PHENCYCLIDINE 25 ng/ml OPIATES 300 ng/ml COCAINE 300 ng/ml ALL POSITIVES ARE CONSIDERED PRESUMPTIVE POSITIVE CONFIRMATION WILL BE PERFORMED AT PHYSICIAN REQUEST. ID Date Data Source [id number] 08/29/2020 01:25:00 AM EST [facility] Name Value Range Interpretation Code Description Data Cecy rce(s) Supporting Document(s) URINALYSIS [facility] URINALYSIS SOURCE R [facility] al COLOR yellow NORMAL: Yellow [facility] ospital CLARITY clear NORMAL: Clear [facility] spital Specific gravity of Urine by Test strip 1.010 1.001 - 1.030 [facility] pH 6.5 5 - 9 [facility] Glucose [Mass/volume] in Urine by Test strip NORM NORMAL: Negat [facility] Bilirubin.total [Presence] in Urine by Test strip NEG NORMAL: Negative [facility] Ketones [Presence] in Urine by Test strip NEG NORMAL: Negative [facility] Protein [Mass/volume] in Urine by Test strip NEG NORMAL: Negat [facility] Nitrite [Presence] in Urine by Test strip NEG NORMAL: Negative [facility] BLOOD NEG NORMAL: Negative [facility] Leukocyte esterase [Presence] in Urine by Test strip NEG TR[place]ON L: Negative [facility] Urobilinogen [Mass/volume] in Urine by Test strip NOR less alida n 1.0 mg/dL [facility] MICROSCOPIC Not Indicate [facility] ID Date Data Source [id number] 08/19/2020 01:52:52 PM EDT [facility] Vital SignsBlood Pressure: 138/82 Patient History Medical History:Brain TumorSeizure DisorderDepressionHx of kidney stonesBipolarSurgical History:Partial lobectomyFamily History:No known family historySocial/Personal History: Smoking Status: current some day smokerDo you vape? NoCurrent Problems: Normal examination (ICD-V65.5) (JTA26-Q83.1)Dental caries/Impaction of teeth (ICD-521.00) (EXK71-N74.9)Contact dermatitis and other eczema, unspecified cause (ICD-692.9) (GPE49-S02.9)Depression (ICD-311) (TLF53-D68.9)Seizure Disorder (ICD-780.39) (STD92-S37.9)Brain Tumor (ICD-191.9) (IHI71-P01.9)Problem list reviewed during this update.Current Medications: SEROQUEL [...] B - (D1110) Prophylaxis, adult (Performed by Behzad HOWARDKimberley) Treatments:Type - CDT Code - Description T - (D7140) Extraction, erupted tooth or exposed root (elevation and/or forceps removal) on Tooth # 2 (Performed by Behzad HOWARDKimberley) T - (D7140) Extraction, erupted tooth or exposed root (elevation and/or forceps removal) on Tooth # 1 (Performed by Behzad HOWARDKimberley) T - (D2140) Amalgam-one surface, primary or permanent on Tooth # 14 on Tooth Surface O (Performed by Kimberley Wen RDH) Existing:Type - CDT Code - Description[E] Decay On #14 Surface O Chart Alert:[facility] Prophy 1 per 6 month periodchild through [...] PM): ; yany (Aug 20 2020 7:29AM): [facility](-). CC: none. Reviewed Xrays. Exam: caries detected. [...] Known Allergies (updated 08/19/2020) Orders:Oral Surgery Referral [CPT-22702] Clinical Visit Summary Declined Name Value Range Interpretation Code Description Data Cecy rce(s) Supporting Document(s) ID Date Data Source [id number] 08/14/2020 07:17:00 PM EDT [facility] 1 Medication Reconciliation Report [facility] Emergency Department [address] [place] [address] Phone #: ext- [phone] 08/14/2020 19:09 Patient: [...] rce(s) Supporting Document(s) ID Date Data Source [id number] 08/14/2020 07:17:00 PM EDT [facility] 1 Medication Administration Record [facility] Emergency Department [address] [place] [address] Phone #: ext- [phone] 19:09 Patient: CAMILO BUTTS Sex: M : 1990 Age: 29yWeight: 81.6 kgHeight/Length: 72 inBMI: 24.4ALLERGIES: No Known Drug AllergyDate/Time Medication Administered Medication Ordered Name Value Range Interpretation Code Description Data Cecy rce(s) Supporting Document(s) ID Date Data Source [id number] 08/14/2020 07:17:00 PM EDT [facility] 1 General Instructions [facility] Emergency Department [address] [place] [address] Phone #: ext- [phone] 08/14/2020 19:09 Patient: CAMILO BUTTS Sex: M : 1990 Age: 29y Anxiety reaction. No hyperventilation.INSTRUCTIONS Warnings: GENERAL WARNINGS: Return or contact your physician immediately if your condition worsens or changes unexpectedly, if not improving as expected, or if other problems arise. Understanding of the discharge instructions verbalized by patient. Follow-up with: [facility], , , [address] [place] [address], [facility] Follow up in one week. Call for [...] may experience: Dry mouth 2 General Instructions [facility] Emergency Department [address] [place] [address] Phone #: ext- [phone] 08/14/2020 19:09 Patient: [...] Also, there are certain 3 General Instructions [facility] Emergency Department [address] [place] [address] Phone #: ext- [phone] 08/14/2020 19:09 Patient: [...] andtemporary medicine to help you manage stress.Call [phone] if any of these happen: Trouble breathing [...] and mild pain reliever 4 General Instructions [facility] Emergency Department [address] [place] [address] Phone #: ext- [phone] 08/14/2020 19:09 Patient: CAMILO BUTTS Sex: M : 1990 Age: 29y [id number] [employer]. [address] [place] [address]. All rights reserved. This information is not intended as asubstitute for professional medical care. Always follow your healthcare professional's instructions. You have been given the following additional information: Anxiety Reaction(Electronically signed by Pedro Kim, 08/14/2020 20:15) Name Value Range Interpretation Code Description Data Cecy rce(s) Supporting Document(s) ID Date Data Source [id number] 08/14/2020 07:17:00 PM EDT [facility] 1 Clinical Report - Nurses [facility] Emergency Department [address] [place] [address] Phone #: ext- [phone] 08/14/2020 19:09 [id number] Sex: M : 1990 Age: 29yTRIAGEHistorian: patient.Acuity: [...] no barriers. 2 Clinical Report - Nurses [facility] Emergency Department [address] [place] [address] Phone #: ext- [phone] 08/14/2020 19:09 Patient: CAMILO BUTTS Sex: M : 1990 Age: 29y FALL RISK ASSESSMENT: Fall risk assessment completed. No risk factors identified. SKIN INTEGRITY ASSESSMENT: Skin integrity risk assessment completed. No skin integrity risk identified. --19:30 08/14/20 Alfonso Buck R.N. FAMILY HX: No significant family medical history. --19:53 08/14/20 Pedro Kim.PHYSICAL BNQXZFOHAZ69:35 08/14/20. Ambulatory to room.GENERAL / NEURO / [...] Patient verbalized understanding. Written instructions provided in Spanish. The patient was discharged home and unaccompanied at time of discharge. He left ambulatory and via taxi. 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 --20:04 08/14/20 Carito Barry R.N. 20:03 08/14/20. BP: 141/93. MAP: 109. HR: 81. RR: 16. O2 saturation: 98%. Temp: 97.9 F. Pain level now: 0. --20:04 08/14/20 Carito Barry R.N.Locked/Released at 08/14/2020 20:04 by Carito Barry R.N. Name Value Range Interpretation Code Description Data Cecy rce(s) Supporting Document(s) ID Date Data Source [id number] 08/14/2020 07:17:00 PM EDT [facility] 1 Clinical Report - Physicians/Mid Levels [facility] Emergency Department [address] [place] [address] Phone #: ext- [phone] 08/14/2020 19:09 Patient: [...] alone. 2 Clinical Report - Physicians/Mid Levels [facility] Emergency Department [address] [place] [address] Phone #: ext- [phone] 08/14/2020 19:09 Patient: CAMILO BUTTS Sex: M [...] patient. 3 Clinical Report - Physicians/Mid Levels [facility] Emergency Department [address] [place] [address] Phone #: ext- [phone] 08/14/2020 19:09 Patient: CAMILO BUTTS Sex: M : 1990 Age: 29y Follow-up with: [facility], , , [address] [place] [address], [facility] Follow up in one week. Call for an appointment.(Electronically signed by Pedro Kim, 08/14/2020 20:15) Name Value Range Interpretation Code Description Data Cecy rce(s) Supporting Document(s) ID Date Data Source [id number] 05/04/2020 10:53:00 [place] [address] PHONE: [phone] FAX: [phone] Name .................. : BENJAMÍN Navarro Acct Number.................. : [id number] ROOM. ................. : TR-07 MR Number ................... : [id number] Stay type ............. : E/R Discharge Date......... ... : Admit Date ......... : 05/02/20 Admit Phys .................... : SAQIB GRUBBS Date of ....... : 1990 Family Phys ................... : NON STAFF Phone .................. : [phone] Age ................................ : 29 Film# .................. .:[id number] Sex ................................. : M Unsigned transcriptions are preliminary reports and do not represent a medical or legal document CT HEAD W/O CONTRAST [id number] COMPLETE:05/02/20 11:52 KBO 01079 Reason(s): Head Pain CT OF THE HEAD [...] rce(s) Supporting Document(s) ID Date Data Source [id number] 05/04/2020 10:53:00 AM EDT [facility] [address] [place] [address] PHONE: [phone] FAX: [phone] Name .................. : BENJAMÍN Navarro Acct Number.................. : [id number] ROOM. ................. : TR-07 Number ................... : [id number] Stay type ............. : E/R Discharge Date......... ... : Admit Date ......... : 05/02/20 Admit Phys .................... : SAQIB HUMERA Date of ....... : 1990 Family Phys ................... : NON STAFF Phone .................. : [phone] Age ................................ : 29 Film# .................. .:[id number] Sex ................................. : M Unsigned transcriptions are preliminary reports and do not represent a medical or legal document CHEST PORTABLE [id number] COMPLETE:05/02/20 11:52 KBO 42032 Reason(s): seizure PORTABLE CHEST X-RAY: COMPARISON: 11/06/19 [...] for: EMERGENCY DEPT via modem Copy for: [address] [place] [address] REC DISCHARGED Page 1 of 1 Name Value Range Interpretation Code Description Data Cecy rce(s) Supporting Document(s) ID Date Data Source [id number] 05/03/2020 01:07:00 [place] [address] RESPIRATORY CARE REPORT ==== ---------NAME------- NUMBER SEX AGE ADMIT DISC. XRAY# F/C JULIAN Navarro [id number] M 29 05/02/20 05/02/20 [id number] XBE E/R DATE OF : 1990 M/R# [id number] #: [id number] TR-07 LOCATION: EMERGENCY DEPT EKG [id number] COMPLE TE:05/02/20 14:[place] [address] PHYSICIAN: SAQIB HUGGINS CH Name Value Range Interpretation Code Description Data Cecy rce(s) Supporting Document(s) ID Date Data Source [id number] 05/02/2020 10:49:00 AM EDT [facility] 1 OrderSheet [facility] Emergency Department [address] [place] [address] Phone #: ext- [phone] 05/02/2020 10:49 Patient: CAMILO BUTTS Sex: M [...] 11:06 05/02/2020 11:07 Gino Thomas) Francisco J Huggins RN P.A.-C;Salicylate Level STAT 11:06 05/02/2020 11:07 Angeles Thomas RN P.A.-C;DIAGNOSTIC STUDY ORDERSOrder Description Priority Entered Acknowledged InitialedCT Head W/O Cont STAT 11:06 05/02/2020 11:14 Freddy 2 OrderSheet [facility] Emergency Department [address] [place] [address] Phone #: ext- [phone] 05/02/2020 10:49 Patient: CAMILO BUTTS Sex: M : 1990 Age: 29y(Oxygen?(No)) Francisco J Blanchard RN P.A.-C; NOTES: Seizure Reason for Study: Head PainChest 1 View STAT 11:06 05/02/2020 Initialed: 11:12 Francisco J Cr(Oxygen?(No)) Francisco J Huggins Cancelled: Other 11:12 Francisco J Ivory; Parveen PBrittA.- Shaye Reason for Study: CoughChest Portable 1 [...] 05/02/2020 11:14 TerryMonitor Francisco J Blanchard RN P.A.-C;Prawn Trawler Hand 11:11 05/02/2020 11:14 Freddy(continuous) Francisco J Blanchard RN P.A.-C;NPO 11:11 05/02/2020 11:14 Freddy 3 OrderSheet [facility] Emergency Department [address] [place] [address] Phone #: ext- [phone] 05/02/2020 10:49 Patient: [...] rce(s) Supporting Document(s) ID Date Data Source [id number] 05/02/2020 10:49:00 AM EDT [facility] 1 Medication Reconciliation Report [facility] Emergency Department [address] [place] [address] Phone #: ext- [phone] 05/02/2020 10:49 [id number] Sex: M : 1990 Age: 29yWeight: 83.9 [...] rce(s) Supporting Document(s) ID Date Data Source [id number] 05/02/2020 10:49:00 AM EDT [facility] 1 Medication Administration Record [facility] Emergency Department [address] [place] [address] Phone #: ext- [phone] 05/02/2020 10:49 Patient: [...] rce(s) Supporting Document(s) ID Date Data Source [id number] 05/02/2020 10:49:00 AM EDT [facility] 1 General Instructions [facility] Emergency Department [address] [place] [address] Phone #: lxl- [phone] 05/02/2020 10:49 Patient: CAMILO BUTTS Sex: M [...] patient.Follow-up with: [facility], , [id number], [address] [place], [address] Follow up. Call for the next available [...] change to another medicine. 2 General Instructions [facility] Emergency Department [address] [place] [address] Phone #: ext- [phone] 05/02/2020 10:49 Patient: [...] and/or another type of 3 General Instructions [facility] Emergency Department [address] [place] [address] Phone #: ext- [phone] 05/02/2020 10:49 Patient: [...] Headache that gets worse 4 General Instructions [facility] Emergency Department [address] [place] [address] Phone #: ext- [phone] 05/02/2020 10:49 Patient: CAMILO BUTTS Sex: M : 1990 Age: 29y [id number] [employer]. [address] [place] [address]. All rights reserved. This information is not intended as asubstitute for professional medical care. Always follow your healthcare professional's instructions. You have been given the following additional information: Seizure, Recurrent (Adult) No driving or operating machinery until released.(Electronically signed by Francisco J Huggins P.A.-C 05/03/2020 10:57) Name Value Range Interpretation Code Description Data Cecy rce(s) Supporting Document(s) ID Date Data Source [id number] 05/02/2020 10:49:00 AM EDT [facility] 1 Clinical Report - Nurses [facility] Emergency Department [address] [place] [address] Phone #: ext- [phone] 05/02/2020 10:49 Patient: [...] trauma. Did not miss recentdose of anticonvulsant.Treatment RADIOLOGICAL ENGINEER:None.SEPSIS SCREEN: SIRS Screen negative. Sepsis Screen negative. [...] Known Drug Allergy. --10:56 05/02/20 Freddy Blanchard RN.Ntijyae50:59 05/02/20.PAST MEDICAL HX: Seizures. No history of [...] no deficiencies. 2 Clinical Report - Nurses [facility] Emergency Department [address] [place] [address] Phone #: ext- [phone] 05/02/2020 10:49 [facility]: [facility]TS [id number] Sex: M : 1990 Age: 29y FUNCTIONAL [...] To room. --10:59 05/02/20 Freddy Blanchard RN.PHYSICAL AMCTFIRZOP31:05/02/20. To room via stretcher.GENERAL / NEURO / [...] 05/02/20. Cardiac rhythm: normal sinus rhythm; (1050). bus driver/monitor, NIBP monitor and pulse oximeter placed on patient; athletic monitor- Lead II; monitor alarms on; monitor [...] at 75 3 Clinical Report - Nurses [facility] Emergency Department [address] [place] [address] Phone #: ext- [phone] 05/02/2020 10:49 Patient: CAMILO BUTTS A cct#: [id number] Sex: M : 1990 Age: 29ymL/hr over [...] PA (1120). Patient transported to [facility] with nurse and industrial cleaning technician. (1130). Patient returned from CT by stretcher with nurse andradiology tech. (1135). --11:44 05/02/20 Shmuel Prettyzudustin precautions maintained: side rails up x2 and padded, suction and O2 at bedside, patient in view of[employer]'s station and call abbasi in reach (1050). [...] saturation: 94% on room air. --12:06 05/02/20 Vanessa RN12:00 05/02/20. BP: 133/77. MAP: 95. HR: 72. [...] Specimen labeled in the presenceof the patient (5908). --12:34 05/02/20 Freddy Blanchard RN12:44 05/02/2020 Tylenol [...] Blanchard RN 4 Clinical Report - Nurses [facility] Emergency Department [address] [place] [address] Phone #: ext- [phone] 05/02/2020 10:49 Patient: CAMILO BUTTS Sex: M : 1990 Age: 29y 13:34 05/02/2020 Tylenol PO Response: pain is improving. Symptoms have improved the patient feels better. Physician customer assistant notified. --13:34 05/02/20 Freddy Blanchard RN 13:34 05/02/2020 Ativan PO Response: pain is improving. Symptoms have improved the patient feels better. Physician customer assistant notified. --13:34 05/02/20 Freddy Blanchard RN [...] parent verbalized understanding. Written instructions provided in Spanish. The patient was discharged by the physician customer assistant. He was discharged home and accompanied by parent. He left ambulatory and via private vehicle. Parent driving. --13:57 05/02/20 Freddy Blanchard RN 13:45 05/02/2020 Site #1 removed upon discharge. Catheter intact. Bandaid applied. --13:58 05/02/20 Freddy Blanchard RN.Locked/Released at 05/02/2020 16:59 by Freddy Blanchard RN Name Value Range Interpretation Code Description Data Cecy rce(s) Supporting Document(s) ID Date Data Source [id number] 05/02/2020 10:49:00 AM EDT [facility] 1 Clinical Report - Physicians/Mid Levels [facility] Emergency Department [address] [place] [address] Phone #: ext- [phone] 05/02/2020 10:49 [facility]: [facility]TS [id number] Sex: M : 1990 Age: 29y Time [...] tumor. See old chart. Problems: Insomnia [Chronic]. [place] disorder. Lifestyle / Substance Problems. Neurological Disease. Bipolar Disorder. Obsessive Compulsive Disorder. ADHD - Attention Deficit Hyperactivity Disorder. Seizure. Tendonitis. STD - Sexually Transmitted Disease. 2 Clinical Report - Physicians/Mid Levels [facility] Emergency Department [address] [place] [address] Phone #: ext- [phone] 05/02/2020 10:49 Patient: [facility]TS [id number] Sex: M : 1990 Age: 29y Tbi. [...] 2+. 3 Clinical Report - Physicians/Mid Levels [facility] Emergency Department [address] [place] [address] Phone #: ext- [phone] 05/02/2020 10:49 Patient: CAMILO BUTTS [facility]#: [id number] Sex: M : 1990 Age: 29y Respiratory: [...] O2? Oxygen?(No) Room: ED Exam CHEST PORTABLE [facility] [address] [place] [address] PHONE: [phone] FAX: [phone] Name .................. : BENJAMÍN Navarro Acct Number.................. : [id number] ROOM. ................. : TR-07 MR Number ................... : [id number] Stay type ............. : E/R Discharge Date......... ... : Admit Date ......... : 05/02/20 Admit Phys .................... : SAQIB GRUBBS Date of ....... : 1990 Family Phys ................... : NON STAFF Phone .................. : [phone] Age ................................ : 29 Film# .................. .:[id number] Sex ................................. : M Unsigned transcriptions are preliminary reports and do not represent a medical or legal document CHEST PORTABLE [id number] COMPLETE:05/02/20 11:52 KBO 75038 Reason(s): seizure 4 Clinical Report - Physicians/Mid Levels [facility] Emergency Department [address] [place] [address] Phone #: ext- [phone] 05/02/2020 10:49 Patient: CAMILO BUTTS Sex: M : 1990 Age: 29y PORTABLE CHEST X-RAY: COMPARISON: 11/06/19 FINDI NGS: The cardiac and mediastinal silhouettes appear normal and the lungs are clear. The bones and soft tissues are normal. The upper abdomen is unremarkable. IMPRESSION: No acute disease identifiable. Electronically Reviewed and Signed By DCTNAME SIGNDATE, ALVINAG Transcribe Initials: FIORELLA , Transcribe Date: 05/02/20 12:21, Dictation Date: <<REPDIST>> Page 1of 1Urinalysis: ([facility]: 05/02/2020 12:30) ( [facility] 05/02[facility] 12:52) Final results Test Result Flag [...] NONEDrug Screen- Urine: ([facility]UL[facility]: 05/02/2020 12:30) ( [facility] 05/02/2020 12:52) Final results Test Result Flag Units (Reference) DRUG SCREEN URINE URINE DRUG SCREEN AMPHETAMINES NEGATIVE (NORMAL: NEGAT 5 Clinical Report - Physicians/Mid Levels [facility] Emergency Department [address] [place] [address] Phone #: ext- [phone] 05/02/2020 10:49 Patient: CAMILO BUTTS Sex: M [...] PRESUMPTIVE POSITIVE CONFIRMATION WILL BE PERFORMED AT [facility].CMP: (LULU: 05/02/2020 11:13) ( [facility] 05/02/2020 11:44) [...] Male GFR Interprentation 20-49 yrs >60 mL/min Ukdfjc10-35 yrs >56 mL/min Normal 60-69 yrs >49 mL/min Normal 70-79yrs>42 mL/min Normal 80 and above >35 mL/min Normal Female GFRInterpretation 20-39 yrs >60 mL/min Normal 40-49 yrs >58 mL/minNormal 50-59 yrs >51 mL/min Normal 60-69 yrs >45 mL/min Hfvxmw76-08 yrs >39 mL/min Normal 80 and above [...] 34.0) 6 Clinical Report - Physicians/Mid Levels [facility] Emergency Department [address] [place] [address] Phone #: ext- [phone] 05/02/2020 10:49 Patient: [...] MORPH NOT INDICATEDCPK: (LULU: 05/02/2020 11:13) ( [facility] 05/02/2020 11:44) Final results Test Result Flag Units (Reference) CPK 204 H U/L (30 - 170)Acetaminophen Level: (LULU: 05/02/2020 11:13) ( [facility] 05/02/2020 11:41) Final results Test Result Flag Units (Reference) ACETAMINOPHEN <5.0 UG/ML (0.0 - 30.0)Salicylate Level: (LULU: 05/02/2020 11:13) ( [facility] 05/02/2020 11:44) Final results Test Result Flag Units (Reference) SALICYLATE <0.3 L mg/dL (2.0 - 20.0)CT Head W/O Cont: (LULU: 05/02/2020 11:06) ( [facility] 05/02/2020 12:26) In ProgressCT HEAD W/O CONTRASTReason(s): Head PainTRANSPORTATION: WC IV? O2? Oxygen?(No) Room: ED CMTS: Seizure Exam CT HEAD W/[place] [address] PHONE: [phone] FAX: [phone] Name .................. : BENJAMÍN Navarro Acct Number.................. : [id number] ROOM. ................. : [facility] MR Number ................... : [id number] Stay type ............. : E/R Discharge Date......... ... : Admit Date ......... : 05/02/20 Admit Phys .................... : SAQIB HUMERA Date of ....... : 1990 Family Phys ................... : NON STAFF Phone .................. : [phone] Age ................................ : 29 Film# .................. .:[id number] Sex ................................. : M Unsigned transcriptions are preliminary reports and do not represent a medical or legal document CT HEAD W/O CONTRAST [id number] COMPLETE:05/02/20 11:52 KBO 60801 Reason(s): Head Pain 7 Clinical Report - Physicians/Mid Levels [facility] Emergency Department [address] [place] [address] Phone #: ext- [phone] 05/02/2020 10:49 Patient: CAMILO BUTTS [facility]#: [id number] Sex: M : 1990 Age: 29y CT [...] a 8 Clinical Report - Physicians/Mid Levels [facility] Emergency Department [address] [place] [address] Phone #: ext- [phone] 05/02/2020 10:49 Patient: CAMILO BUTTS Sex: M [...] cause, 9 Clinical Report - Physicians/Mid Levels [facility] Emergency Department [address] [place] [address] Phone #: ext- [phone] 05/02/2020 10:49 Patient: [...] Follow-up with: [facility], , [id number], [address] [place], [address] Follow up. Call for the next available appointment. Reason for referral: evaluation and treatment.(Electronically signed by Francisco J Huggins P.A.-C 05/03/2020 10:57) Name Value Range Interpretation Code Description Data Cecy rce(s) Supporting Document(s) ID Date Data Source [id number] 05/02/2020 12:52:00 PM EDT [facility] Name Value Range Interpretation Code Description Data Cecy rce(s) Supporting Document(s) DRUG SCREEN URINE [facility] URINE DRUG SCREEN Amphetamine [Presence] in Urine by Screen method NEGATIVE NORMAL: N EGATIVE [facility] BARBITURATES NEGATIVE NORMAL: NEGATIVE [facility] BENZO NEGATIVE NORMAL: NEGATIVE [facility] COCAINE NEGATIVE NORMAL: NEGATIVE [facility] Tetrahydrocannabinol [Presence] in Urine NEGATIVE NORMAL: NEGATIVE [facility] OPIATES NEGATIVE NORMAL: NEGATIVE [facility] Phencyclidine [Presence] in Urine by Screen method NEGATIVE NOR MAL: NEGATIVE [facility] \\BLDo\\URINE DRUG SCR EEN INTERPRETATION\\BLDx\\ THE CUTOFFF LEVELS FOR DETECTION ARE FOLLOWS: AMPHETAMINES 1000 ng/ml BARBITUARATES 200 ng/ml BENZODIAZEPINES 100 ng/ml THC 50 ng/ml PHENCYCLIDINE 25 ng/ml OPIATES 300 ng/ml COCAINE 300 ng/ml ALL POSITIVES ARE CONSIDERED PRESUMPTIVE POSITIVE CONFIRMATION WILL BE PERFORMED AT PHYSICIAN REQUEST. ID Date Data Source [id number] 05/02/2020 12:52:00 PM EDT [facility] Name Value Range Interpretation Code Description Data Cecy rce(s) Supporting Document(s) URINALYSIS [facility] akanksha URINALYSIS SOURCE R [facility] al COLOR yellow NORMAL: Yellow [facility] CLARITY clear NORMAL: Clear [facility] Specific gravity of Urine by Test strip 1.020 1.001 - 1.030 [facility] pH 6 5 - 9 [facility] al Glucose [Mass/volume] in Urine by Test strip NORM NORMAL: Negat [facility] Bilirubin.total [Presence] in Urine by Test strip NEG NORMAL: Negative [facility] Ketones [Presence] in Urine by Test strip NEG NORMAL: Negative [facility] Protein [Mass/volume] in Urine by Test strip 15 NORMAL: Negat [facility] Nitrite [Presence] in Urine by Test strip NEG NORMAL: Negative [facility] BLOOD NEG NORMAL: Negative [facility] Leukocyte esterase [Presence] in Urine by Test strip NEG TRENTON L: Negative [facility] Urobilinogen [Mass/volume] in Urine by Test strip NOR less alida n 1.0 mg/dL [facility] MICROSCOPIC See Below [facility] ital WBC 0 - 1 NORMAL: NONE SEEN [facility] Erythrocytes [#/volume] in Urine by Test strip 0 - 1 NORMAL: NON E SEEN [facility] EPITHELIAL FEW NORMAL: NONE SEEN [facility] Bacteria [Presence] in Urine sediment by Light microscopy Tr mela NORMAL: NONE SEEN [facility] ID Date Data Source [id number] 05/06/2020 06:25:00 AM EDT [facility] Name Value Range Interpretation Code Description Data Cecy rce(s) Supporting Document(s) Prolactin [Mass/volume] in Serum or Plasma 12.7 ng/mL 4.0-15.2 [facility] ID Date Data Source [id number] 05/05/2020 08:12:00 AM EDT [facility] Name Value Range Interpretation Code Description Data Cecy rce(s) Supporting Document(s) Valproate [Mass/volume] in Serum or Plasma <4 ug/mL 50-100 L [facility] Verified by repeat analysis Detection Limit = 4 <4 indicates None Detected Toxicity may occur at levels of 100-500. Measurements of free unbound valproic acid may improve the assess- ment of clinical response. ID Date Data Source [id number] 05/02/2020 11:44:00 AM EDT [facility] Name Value Range Interpretation Code Description Data Cecy rce(s) Supporting Document(s) SALICYLATE <0.3 mg/dL 2.0 - 20.0 L [facility] ID Date Data Source [id number] 05/02/2020 11:44:00 AM EDT [facility] Name Value Range Interpretation Code Description Data Cecy rce(s) Supporting Document(s) Creatine kinase [Enzymatic activity/volume] in Serum or Plasma 2 04 U/L 30 - 170 H [facility] ID Date Data Source [id number] 05/02/2020 11:44:00 AM EDT [facility] Name Value Range Interpretation Code Description Data Cecy rce(s) Supporting Document(s) COMPREHENSIVE METABOLIC PANEL [facility] COMPREHENSIVE METABOLIC PANEL Sodium [Moles/volume] in Serum or Plasma 138 mEq/L 134 - 153 [facility] Potassium [Moles/volume] in Serum or Plasma 3.9 mEq/L 3.6 - 5.0 [facility] Chloride [Moles/volume] in Serum or Plasma 105 mEq/L 98 - 107 [facility] Carbon dioxide, total [Moles/volume] in Serum or Plasma 21 MEQ/L 22 - 30 L [facility] Glucose [Mass/volume] in Serum or Plasma 112 MG/DL 65 - 110 H [facility] BUN 10 MG/DL 7 - 21 [facility] al Creatinine [Mass/volume] in Serum or Plasma 0.6 MG/DL 0.7 - 1.5 L [facility] BUN/CREAT 17 8 - 27 [facility] Protein [Mass/volume] in Serum or Plasma 6.6 G/DL 6.3 - 8.2 [facility] Albumin [Mass/volume] in Serum or Plasma 4.4 G/DL 3.9 - 5.0 [facility] Globulin [Mass/volume] in Serum by calculation 2.2 GM/DL 2.4 - 3.2 L [facility] A/G RATIO 2.0 0.8 - 2.0 [facility] Calcium [Mass/volume] in Serum or Plasma 8.7 MG/DL 8.4 - 10.2 [facility] Bilirubin.total [Mass/volume] in Serum or Plasma <0.7 MG/DL 0.2 - 1.3 [facility] Alkaline phosphatase [Enzymatic activity/volume] in Serum or Plasma 112 U/L 38 - 126 [facility] Aspartate aminotransferase [Enzymatic activity/volume] in Serum or Plasma 25 U/L 5 - 40 [facility] Alanine aminotransferase [Enzymatic activity/volume] in Seru m or Plasma 28 U/L 7 - 56 [facility] Anion gap 3 in Serum or Plasma 12.0 mmol/L 8.0 - 16.0 [facility] AGE 29 yrs [facility] al NON-AA GFR >60 mL/min [facility] ital AFR AMER GFR >60 mL/min [facility] Male GFR In terprentation [...] >32 mL/min Normal ID Date Data Source [id number] 05/02/2020 11:41:00 AM EDT [facility] Name Value Range Interpretation Code Description Data Cecy rce(s) Supporting Document(s) Acetaminophen [Presence] in Urine <5.0 UG/ML 0.0 - 30.0 [facility] ID Date Data Source [id number] 05/02/2020 11:40:00 AM EDT [facility] Name Value Range Interpretation Code Description Data Cecy rce(s) Supporting Document(s) CBC W/AUTOMATED DIFF [facility] COMPLETE BLOOD COUNT Leukocytes [#/volume] in Blood by Automated count 6.9 10^3/uL 4.2 - 1 1.0 [facility] Erythrocytes [#/volume] in Blood by Automated count 5.08 10^6/uL 4. 50 - 6.30 [facility] Hemoglobin [Mass/volume] in Blood 15.1 g/dL 14.0 - 16.0 [facility] Hematocrit [Volume Fraction] of Blood by Automated count 44.7 % 4 1.0 - 51.0 [facility] Erythrocyte mean corpuscular volume [Entitic volume] by Auto mated count 88.0 fL 80.0 - 94.0 [facility] Erythrocyte mean corpuscular hemoglobin [Entitic mass] by Automated count 29.7 pg 27.0 - 34.0 [facility] Erythrocyte mean corpuscular hemoglobin concentration [Mass/volume] by Automated count 33.8 g/dL 31.0 - 36.0 [facility] Erythrocyte distribution width [Ratio] by Automated count 12.4 % 11.5 - 14.8 [facility] Platelets [#/volume] in Blood by Automated count 255 10^3/uL 150 - 45 0 [facility] Platelet mean volume [Entitic volume] in Blood by Automated count 9.9 fL 7.4 - 10.4 [facility] Neutrophils/100 leukocytes in Blood by Automated count 74.4 % 37. 0 - 80.0 [facility] Lymphocytes/100 leukocytes in Blood by Manual count 14.6 % 25.0 - 40.0 L [facility] Monocytes/100 leukocytes in Blood by Automated count 7.5 % 3.0 - 8.0 [facility] Eosinophils/100 leukocytes in Blood by Automated count 1.9 % 0.0 - 7.0 [facility] Basophils/100 leukocytes in Blood by Automated count 0.6 % 0.0 - 2.0 [facility] %IG 1.0 % 0.0 - 0.0 H [facility] al %NRBC 0.0 % 0.0 - 0.0 [facility] al Neutrophils [#/volume] in Blood by Automated count 5.15 10^3/uL 2.00 - 6.90 [facility] Lymphocytes [#/volume] in Blood by Automated count 1.01 10^3/uL 0.60 - 3.40 [facility] Monocytes [#/volume] in Blood by Automated count 0.52 10^3/uL 0.00 - 0.90 [facility] Eosinophils [#/volume] in Blood by Automated count 0.13 10^3/uL 0.00 - 0.70 [facility] Basophils [#/volume] in Blood by Automated count 0.04 10^3/uL 0.00 - 0.20 [facility] #IG 0.07 10^3/uL 0.00 - 0.10 [facility] #NRBC 0.00 10^3/uL 0.00 - 0.00 [facility] MANUAL DIFF NOT INDICATED [facility] RBC MORPH NOT INDICATED [facility] spital ID Date Data Source [id number] 12/11/2019 07:07:00 PM EST [facility] 1 OrderSheet [facility] Emergency Department [address] [place] [address] Phone #: ext- [phone] 12/11/2019 19:05 Patient: [...] rce(s) Supporting Document(s) ID Date Data Source [id number] 12/11/2019 07:07:00 PM EST [facility] 1 Medication Reconciliation Report [facility] Emergency Department [address] [place] [address] Phone #: ext- [phone] 12/11/2019 19:05 Patient: [...] Value Range Interpretation Code Description Data Cecy [facility](s) Supporting Document(s) ID Date Data Source [id number] 12/11/2019 07:07:00 PM [place] [address] Medication Administration Record [facility] Emergency Department [address] [place] [address] Phone #: ext- [phone] 19:05 Patient: CAMILO BUTTS Sex: M : 1990 Age: 29yWeight: 88.4 kgHeight/Length: 72 inBMI: 26.5ALLERGIES: No Known Drug AllergyDate/Time Medication Administered Medication Ordered Name Value Range Interpretation Code Description Data Cecy [facility](s) Supporting Document(s) ID Date Data Source [id number] 12/11/2019 07:07:[address] [facility] 1 General Instructions [facility] Emergency Department [address] [place] [address] Phone #: ext- [phone] 12/11/2019 19:05 Patient: [...] positive, contact your healthcare provider, local clinic, [facility] department to be treated, or return to our facility. You will be prescribed antibiotic medicine. Be sure to take all of the antibiotic as prescribed until it is gone or you are told to stop. Keep taking it even if you feel better. 2 General Instructions [facility] Emergency Department [address] [place] [address] Phone #: [phone]- [phone] 12/11/2019 19:05 Patient: CAMILO BUTTS Sex: M [...] up with your provider or the [facility] for complete STI screening, including HIV testing, and to consider ways to prevent HIV.For more information about STIs, call the CDC information line at 638-864-4978 or look at the [employer] online.When to seek medical adviceCall your healthcare [...] p ain or scrotal swelling in men [phone] [employer]. [address] [place] [address]. All rights reserved. This information is not intended as asubstitute for professional medical care. Always follow your healthcare professional's instructions. You have been given the following additional information: Testing for Suspected STI 3 General Instructions [facility] Emergency Department [address] [place] [address] Phone #: ext- [phone] 12/11/2019 19:05 Patient: CAMILO BUTTS Sex: M : 1990 Age: 29y(Electronically signed by HUMERA Kan 12/11/2019 21:47) Name Value Range Interpretation Code Description Data Cecy rce(s) Supporting Document(s) ID Date Data Source [id number] 12/11/2019 07:07:00 PM EST [facility] 1 Clinical Report - Nurses [facility] Emergency Department [address] [place] [address] Phone #: [phone]- [phone] 12/11/2019 19:05 Patient: CAMILO BUTTS Sex: M : 1990 Age: 29yTRIAGEArrived by private vehicle. Historian: patient. Accompanied by (Dropped off by Medicaid cab).Triage time: 19:05 12/11/2019. Acuity: LEVEL 5.Chief Complaint: (Requests STD testing).Alert.This started today. ( Pt states "i would like to make sure i don't have no diseases". Pt denies anysymptoms;). ( Pt very vague during triage/angry/aggressvie).Treatment RADIOLOGICAL ENGINEER:None.SEPSIS SCREEN: NEGATIVE. Negative (no infection suspected/documented). (19:10 12/11/2019).--19:10 12/11/19 Kathryn Ross R.N.19:05 12/11/19. BP: 150/83. MAP: 105. HR: 81. RR: 18. O2 saturation: 98% on room air. Pain level now:0/10. --19:10 12/11/19 Kathryn Ross R.N.19:14 12/11/19. Temp: 98.8 F (oral). --19:15 12/11/19 Kathryn Ross R.N.Height/Length: 72 inches Per Patient. --19:05 2/19/20 Kathryn Ross R.N..Weight: 88.4 kg measured. BMI: [...] and oral 2 Clinical Report - Nurses [facility] Department [address] [place] [address] Phone #: ext- [phone] 12/11/2019 19:05 Patient: [...] Hernandez R.N. 3 Clinical Report - Nurses [facility] Emergency Department [address] [place] [address] Phone #: ext- [phone] 12/11/2019 19:05 Patient: CAMILO BUTTS Ramon Sex: M : 1990 Age: 29yDISPOSITION / DISCHARGE Departure time: 19:56 12/11/2019. Condition at departure: stable. No learning barriers present. Reviewed warnings. Reviewed medication(s). Treatments reviewed. Reviewed referrals. Patient verbalized understanding. Written instructions provided in Spanish. The patient was discharged by the physician customer assistant. He was discharged home and unaccompanied [...] rce(s) Supporting Document(s) ID Date Data Source [id number] 12/11/2019 07:07:00 PM EST [facility] 1 Clinical Report - Physicians/Mid Levels [facility] Emergency Department [address] [place] [address] Phone #: ext- [phone] 12/11/2019 19:05 Patient: CAMILO BUTTS Sex: M [...] inspection. 2 Clinical Report - Physicians/Mid Levels [facility] Emergency Department [address] [place] [address] Phone #: ext- [phone] 12/11/2019 19:05 Patient: CAMILO BUTTS Sex: M [...] Testing).INSTRUCTIONS 3 Clinical Report - Physicians/Mid Levels [facility] Emergency Department [address] [place] [address] Phone #: ext- [phone] 12/11/2019 19:05 Patient: CAMILO BUTTS Sex: M [...] rce(s) Supporting Document(s) ID Date Data Source [id number] 12/13/2019 08:10:[address] [facility] Name Value Range Interpretation Code Description Data Cecy rce(s) Supporting Document(s) HIV 1+2 Ab+HIV1 p24 Ag [Presence] in Serum or Plasma b y Immunoassay Non Reactive Non Reactive [facility] ID Date Data Source [id number] 12/11/2019 08:51:[address] [facility] Name Value Range Interpretation Code Description Data Cecy rce(s) Supporting Document(s) Treponema pallidum Ab [Presence] in Serum NON-REACTIVE NORMAL:NON MELBA CTIVE [facility] ID Date Data Source [id number] 12/14/2019 06:49:[address] [facility] Name Value Range Interpretation Code Description Data Cecy rce(s) Supporting Document(s) Chlamydia trachomatis rRNA [Presence] in Unspecified specimen by Probe and target amplification method Negative Negative [facility] Neisseria gonorrhoeae rRNA [Presence] in Unspecified specimen by Probe and target amplification method Negative Negative [facility] ID Date Data Source [id number] 12/11/2019 07:34:[address] [facility] Name Value Range Interpretation Code Description Data Cecy rce(s) Supporting Document(s) URINALYSIS [facility] akanksha URINALYSIS SOURCE R [facility] al COLOR yellow NORMAL: Yellow [facility] CLARITY clear NORMAL: Clear [facility] Specific gravity of Urine by Test strip 1.010 1.001 - 1.030 [facility] 6 5 - 9 [facility] Gl[facility] [Mass/volume] in Urine by Test strip NORM NORMAL: Negat delia [facility] Bilirubin.total [Presence] in Urine by Test strip NEG NORMAL: Negative [facility] Ketones [Presence] in Urine by Test strip NEG NORMAL: Negative [facility] Protein [Mass/volume] in Urine by Test strip NEG NORMAL: Negat delia [facility] Nitrite [Presence] in Urine by Test strip NEG NORMAL: Negative [facility] BLOOD NEG NORMAL: Negative [facility] Leukocyte esterase [Presence] in Urine by Test strip NEG TRENTON L: Negative [facility] Urobilinogen [Mass/volume] in Urine by Test strip NOR less alida n 1.0 mg/dL [facility] MICROSCOPIC Not Indicate [facility] ospital ID Date Data Source [id number] 11/07/2019 08:51:00 [place] [address] RESPIRATORY CARE REPORT ==== ---------NAME------- NUMBER SEX AGE ADMIT DISC. XRAY# F/C JULIAN Navarro [id number] 29 11/06/19 11/06/19 [id number] XBE E/R DATE OF : 1990 M/R# [id number] #: [id number] TR-07 LOCATION: EMERGENCY DEPT EKG [id number] COMP LETE:11/07/19 03:07 [place] [id number] PHYSICIAN: SOLEDAD HUGGINS CH Name Value Range Interpretation Code Description Data Cecy rce(s) Supporting Document(s) ID Date Data Source [id number] 11/07/2019 04:06:00 [place] [address] PHONE: [phone] FAX: [phone] Name .................. : BENJAMÍN Navarro Acct Number.................. : [id number] ROOM. ................. : TR-07 MR Number ................... : [id number] Stay type ............. : E/R Discharge Date......... ... : 11/06/19 Admit Date ......... : 11/06/19 Admit Phys .................... : AMERNATH L Date of ....... : 1990 Family Phys ................... : NON STAFF Phone .................. : [phone] Age ................................ : 29 Film# .................. .:[id number] Sex ................................. : M Unsigned transcriptions are preliminary reports and do not represent a medical or legal document CHEST 2 VIEWS [id number] COMPLETE:11/06/19 14:30 KBO [id number] Reason(s): transient lightheadedness; resolved CHEST X-RAY: 2- VIEWS INDICATION: Transient lightheadedness, which has now resolved. FINDINGS: The cardiac and mediastinal silhouettes appear normal and the lungs are clear. The bones and soft tissues are normal. The upper abdomen is unremarkable. IMPRESSION: No acute disease identifiable. Electronically Reviewed and Signed By Kevin Ponce M.D. , 11/07/19 16:06, [facility] Transcribe Initials: FIORELLA , Transcribe Date: 11/06/19 18:06, Dictation Date: Copy for: PARVEEN GALLAGHER via fax Copy for: EMERGENCY DEPT via modem Copy for: 710 MED REC DISCHARGED Page 1 of 1 Name Value Range Interpretation Code Description Data Cecy rce(s) Supporting Document(s) ID Date Data Source [id number] 11/06/2019 10:57:00 AM EST [facility] 1 OrderSheet [facility] Emergency Department [address] [place] [address] Phone #: ext- [phone] 11/06/2019 10:53 Patient: CAMILO BUTTS Sex: M : 1990 Age: 29yWEIGHT:87.2 kg (M) HEIGHT:69 inches (E) BMI:28.4ALLERGIES: No Known Drug AllergyLAB ORDERSOrder Description Priority Entered Acknowledged InitialedCBC w Diff STAT 11:22 11/06/2019 11:28 Doyle Francisco J Huggins paper inserter, Cornelio BENNETT P.A.-C; [id number] STAT 11:22 11/06/2019 11:28 Doyle Francisco J Huggins paper inserter, Cornelio BENNETT P.A.-C; [id number] (Clean STAT 11:22 11/06/2019 11:28 [facility]) Francisco J Huggins paper inserterCornelio P.A.-C; [id number] Nasal A B STAT 11:22 11/06/2019 11:50 January Francisco J SifuentesN. P.A.-C;HIV RNA Quant STAT 11:22 11/06/2019 11:43 Doyle Francisco J Huggins paper inserter, Cornelio BENNETT P.A.-C; Tech1 NOTES: ER HIV lab; pt requests. Need waiver signedDIAGNOSTIC STUDY ORDERSOrder Description Priority Entered Acknowledged InitialedChest 2 View STAT 11:57 11/06/2019 12:01 January(Oxygen?(No)) Francisco J Huggins R.N. P.A.-C; Reason for Study: transient lightheadedness; resolvedMEDICATION/IV/DRIP/FLUID ORDERSOrder Description Priority Entered Acknowledged InitialedIV NS : Bolus 500 11:11/06/2019 Cancelled: Patient Refusal 11:50 Em,mL, then 125 mL/hr Francisco J Carrasquillo R.N., P.A.-C;GENERAL ORDERSOrder Description Priority Entered Acknowledged InitialedNPO 11:11/06/2019 11:33 Neida Strickland R.N., P.A.-C; 2 OrderSheet [facility] Emergency Department [address] [place] [address] Phone #: [phone]- [phone] 11/06/2019 10:53 Patient: CAMILO BUTTS Sex: M : 1990 Age: 29ySaline Lock 11:11/06/2019 Cancelled: Patient Refusal 11:50 Francisco J Strickladn R.N.;EKG 11:11/06/2019 Ack'd: 11:30 11:43 Ruthann Huggins Doyle paper inserter, paper inserter, Cornelio BENNETT P.A.-C; Cornelio BENNETT Tech1 Tech1[Electronically signed by Neida Strickland R.N. (:11/06/2019)][Electronically signed by Francisco J Huggins P.A.-C (01:28 11/07/2019)][Electronically locked by Neida Strickland R.N. (13:11/06/2019)] Name Value Range Interpretation Code Description Data Cecy rce(s) Supporting Document(s) ID Date Data Source [id number] 11/06/2019 10:57:00 AM EST [facility] 1 Medication Reconciliation Report [facility] Emergency Department [address] [place] [address] Phone #: ext- [phone] 11/06/2019 10:53 Patient: [...] Value Range Interpretation Code Description Data Cecy [facility](s) Supporting Document(s) ID Date Data Source [id number] 11/06/2019 10:57:00 AM EST [facility] 1 Medication Administration Record [facility] Emergency Department [address] [place] [address] Phone #: ext- [phone] 10:53 Patient: CAMILO BUTTS Sex: M : 1990 Age: 29yWeight: 87.2 kgHeight/Length: 69 inBMI: 28.4ALLERGIES: No Known Drug AllergyDate/Time Medication Administered Medication Ordered Name Value Range Interpretation Code Description Data Cecy [facility](s) Supporting Document(s) ID Date Data Source [id number] 11/06/2019 10:57:[address] [facility] 1 General Instructions [facility] Emergency Department [address] [place] [address] Phone #: ext- [phone] 11/06/2019 10:53 Patient: [...] rce(s) Supporting Document(s) ID Date Data Source [id number] 11/06/2019 10:57:00 AM EST [facility] 1 Clinical Report - Nurses [facility] Emergency Department [address] [place] [address] Phone #: [phone] 11/06/2019 10:53 Patient: CAMILO BUTTS Sex: M : 1990 Age: 29yTRIAGEHistorian: patient.Triage time: 10:53 11/06/2019. Acuity: LEVEL 3.Chief Complaint: (lightheaded.).Alert. No acute distress.( pt c/o being lightheaded for past hour. denies n/v/d, denies head injury, denies etoh.).SEPSIS SCREEN: NEGATIVE. Negative (no infection suspected/documented). --10:57 11/06/19, R.N.10:53 11/06/19. BP: 130/92. MAP: 104. HR: 80. RR: 17. O2 saturation: 98%. Temp: 97.1 F. Pain levelnow: 0/10. --10:57 11/06/19, January, R.N.Weight: 87.2 kg measured. Height/Length: 69 inches Estimated. BMI: 28.4. --10:52 11/06/19January,R.N.MedicationsSEROquel Oral. --10:54 11/06/19January R.N.AllergiesNo Known Drug Allergy. --10:54 11/06/19, January R.N.PROBLEMS:Ocd.Paranoid schizophrenia.Tbi. --10:56 11/06/19 January RBrittN.ADHD - Attention Deficit Hyperactivity Disorder. --11:20 11/06/19 Compa Logan.-CThe following entry was modified by Compa Logan.-C, 11:20 11/06/19ADHD - Attention Deficit Hyperactivity Disorder. --10:55 11/06/19 January RBrittN..ADDITIONAL SURGERIES:Brain surgery (Removed tumors). --10:56 [...] of CRE. 2 Clinical Report - Nurses [facility] Emergency Department [address] [place] [address] Phone #: ext- [phone] 11/06/2019 10:53 Patient: CAMILO BUTTS [facility]#: [id number] Sex: M : 1990 Age: 29y SELF [...] and shown to the PA. --11:43 11/06/19 Doyle paper inserterCornelio ER Tech1 11:40 11/06/19. Patient ID band checked for patient name and birthdate: patient confirmed. Flu swab obtained by RN via nasal swab. Labeled in the presence of the patient and sent to lab. --11:50 11/06/19 Neida Strickland R.N. 3 Clinical Report - Nurses [facility] [facility] [address] [place] [address] Phone #: ext- [phone] 11/06/2019 10:53 Patient: CAMILO BUTTS Sex: M : 1990 Age: 29y 11:45 11/06/19. ( blood drawn by laboratory scientist.). --11:51 11/06/19 Neida Strickland R.N. ( RN [...] F. Pain level now 0/10. --13:00 11/06/19 Doyle paper inserter, Cornelio, ER Tech1 Condition at departure: improved and stable. No learning barriers present. Discharge instructions provided and reviewed with the patient. Patient verbalized understanding. Written instructions provided in Spanish. The patient was discharged by the physician customer assistant. He was discharged home. He left ambulatory and via taxi. 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 --13:11/06/19 Neida Strickland R.N.Locked/Released at 11/06/2019 13:03 by Neida Strickland R.N. Name Value Range Interpretation Code Description Data Cecy rce(s) Supporting Document(s) ID Date Data Source [id number] 11/06/2019 10:57:00 AM EST [facility] 1 Clinical Report - Physicians/Mid Levels [facility] Emergency Department [address] [place] [address] Phone #: ext- [phone] 11/06/2019 10:53 Patient: [...] HISTORYSee nurses notes. Seizures. Problems: Insomnia [Chronic]. [place] disorder. Lifestyle / Substance Problems. Neurological Disease. Bipolar Disorder. ADHD - Attention Deficit Hyperactivity Disorder. Other Disease. Seizure Disorder. Tendonitis. Tension-Type Headache. Obsessive Compulsive Disorder. Ocd. Paranoid schizophrenia. Tbi. 2 Clinical Report - Physicians/Mid Levels [facility] Emergency Department [address] [place] [address] Phone #: ext- [phone] 11/06/2019 10:53 Patient: [...] normal. 3 Clinical Report - Physicians/Mid Levels [facility] Emergency Department [address] [place] [address] Phone #: ext- [phone] 11/06/2019 10:53 Patient: [...] 70-79yrs 4 Clinical Report - Physicians/Mid Levels [facility] Emergency Department [address] [place] [address] Phone #: ext- [phone] 11/06/2019 10:53 Patient: CAMILO BUTTS Sex: M : 1990 Age: 29y >42 mL/min Normal 80 and above >35 mL/min Normal Female GFR Interpretation 20-39 yrs >60 mL/min Normal 40-49 yrs >58 mL/min Normal 50-59 yrs >51 mL/min Normal 60-69 yrs >45 mL/min Normal 70-79 yrs >39 mL/min Normal 80 and above >32 mL/min Normal Urinalysis: (LULU: 11/06/2019 11:18) ( [facility] 11/06/2019 11:55) Final results Test Result Flag [...] Nasal A B: ([facility]: 11/06/2019 11:35) ( [facility] 11/06/2019 12:11) Final results Test Result Flag [...] HIV RNA Quant: (LULU: 11/06/2019 11:22) ( [facility] 11/06/2019 11:30) Canceled CMTS: ER HIV lab; pt requests. Need waiver signed.PROGRESS AND PROCEDURESCourse of Care: VSS, NAD, AOx3, interacting well and appropriately, no use of accessory muscle, able tospeak full sentences, stable, non-toxic loo john. Enter room and pt lying peacefully in bed in NAD. Patient stable. Denies any new issues, concerns, or complaints. PE abdelrahmanos [place] intact b/l UE and LE. Pt [...] results. 5 Clinical Report - Physicians/Mid Levels [facility] Emergency Department [address] [place] [address] Phone #: ext- [phone] 11/06/2019 10:53 Patient: CAMILO BUTTS Sex: M [...] patient. 6 Clinical Report - Physicians/Mid Levels [facility] Emergency Department [address] [place] [address] Phone #: ext- [phone] 11/06/2019 10:53 Patient: CAMILO BUTTS Sex: M : 1990 Age: 29y(Electronically signed by Francisco J Huggins P.A.-C 11/07/2019 01:28) Name Value Range Interpretation Code Description Data Cecy rce(s) Supporting Document(s) ID Date Data Source [id number] 11/07/2019 10:12:[address] [facility] Name Value Range Interpretation Code Description Data Cecy rce(s) Supporting Document(s) HIV 1+2 Ab+HIV1 p24 Ag [Presence] in Serum or Plasma b y Immunoassay Non Reactive Non Reactive [facility] ID Date Data Source [id number] 11/06/2019 12:10:[address] [facility] Name Value Range Interpretation Code Description Data Cecy rce(s) Supporting Document(s) COMPREHENSIVE METABOLIC PANEL [facility] COMPREHENSIVE METABOLIC PANEL Sodium [Moles/volume] in Serum or Plasma 141 mEq/L 134 - 153 [facility] Potassium [Moles/volume] in Serum or Plasma 4.0 mEq/L 3.6 - 5.0 [facility] Chloride [Moles/volume] in Serum or Plasma 105 mEq/L 98 - 107 [facility] Carbon dioxide, total [Moles/volume] in Serum or Plasma 26 MEQ/L 22 - 30 [facility] Glucose [Mass/volume] in Serum or Plasma 98 MG/DL 65 - 110 [facility] BUN 17 MG/DL 7 - 21 [facility] Creatinine [Mass/volume] in Serum or Plasma 0.7 MG/DL 0.7 - 1.5 [facility] BUN/CREAT 24 8 - 27 [facility] Protein [Mass/volume] in Serum or Plasma 6.7 G/DL 6.3 - 8.2 [facility] Albumin [Mass/volume] in Serum or Plasma 4.3 G/DL 3.9 - 5.0 [facility] Globulin [Mass/volume] in Serum by calculation 2.4 GM/DL 2.4 - 3.2 [facility] A/G RATIO 1.8 0.8 - 2.0 [facility] Calcium [Mass/volume] in Serum or Plasma 9.5 MG/DL 8.4 - 10.2 [facility] Bilirubin.total [Mass/volume] in Serum or Plasma 0.8 MG/DL 0.2 - 1.3 [facility] Alkaline phosphatase [Enzymatic activity/volume] in Serum or Plasma 107 U/L 38 - 126 [facility] Aspartate aminotransferase [Enzymatic activity/volume] in Serum or Plasma 18 U/L 5 - 40 [facility] Alanine aminotransferase [Enzymatic activity/volume] in Seru m or Plasma 24 U/L 7 - 56 [facility] Anion gap 3 in Serum or Plasma 10.0 mmol/L 8.0 - 16.0 [facility] AGE 29 yrs [facility] NON-AA GFR >60 mL/min [facility] ital AFR AMER GFR >60 mL/min [facility] Male GFR In terprentation [...] >32 mL/min Normal ID Date Data Source [id number] 11/06/2019 11:57:00 AM EST [facility] Name Value Range Interpretation Code Description Data Cecy rce(s) Supporting Document(s) CBC W/AUTOMATED DIFF [facility] COMPLETE BLOOD COUNT Leukocytes [#/volume] in Blood by Automated count 6.8 10^3/uL 4.2 - 1 1.0 [facility] Erythrocytes [#/volume] in Blood by Automated count 5.42 10^6/uL 4. 50 - 6.30 [facility] Hemoglobin [Mass/volume] in Blood 16.1 g/dL 14.0 - 16.0 H [facility] Hematocrit [Volume Fraction] of Blood by Automated count 47.4 % 4 1.0 - 51.0 [facility] Erythrocyte mean corpuscular volume [Entitic volume] by Auto mated count 87.5 fL 80.0 - 94.0 [facility] Erythrocyte mean corpuscular hemoglobin [Entitic mass] by Automated count 29.7 pg 27.0 - 34.0 [facility] Erythrocyte mean corpuscular hemoglobin concentration [Mass/volume] by Automated count 34.0 g/dL 31.0 - 36.0 [facility] Erythrocyte distribution width [Ratio] by Automated count 12.4 % 11.5 - 14.8 [facility] Platelets [#/volume] in Blood by Automated count 237 10^3/uL 150 - 45 0 [facility] Platelet mean volume [Entitic volume] in Blood by Automated count 9.5 fL 7.4 - 10.4 [facility] Neutrophils/100 leukocytes in Blood by Automated count 69.2 % 37. 0 - 80.0 [facility] Lymphocytes/100 leukocytes in Blood by Manual count 20.1 % 25.0 - 40.0 L [facility] Monocytes/100 leukocytes in Blood by Automated count 7.3 % 3.0 - 8.0 [facility] Eosinophils/100 leukocytes in Blood by Automated count 2.2 % 0.0 - 7.0 [facility] Basophils/100 leukocytes in Blood by Automated count 0.6 % 0.0 - 2.0 [facility] %IG 0.6 % 0.0 - 0.0 H [facility] %NRBC 0.0 % 0.0 - 0.[facility] Neut[facility]ils [#/volume] in Blood by Automated count 4.73 10^3/uL 2.00 - 6.90 [facility] Lymphocytes [#/volume] in Blood by Automated count 1.37 10^3/uL 0.60 - 3.40 [facility] Monocytes [#/volume] in Blood by Automated count 0.50 10^3/uL 0.00 - 0.90 [facility] Eosinophils [#/volume] in Blood by Automated count 0.15 10^3/uL 0.00 - 0.70 [facility] Basophils [#/volume] in Blood by Automated count 0.04 10^3/uL 0.00 - 0.20 [facility] #IG 0.04 10^3/uL 0.00 - 0.10 [facility] #NRBC 0.00 10^3/uL 0.00 - 0.00 [facility] MANUAL DIFF NOT INDICATED [facility] RBC MORPH NOT INDICATED [facility] spital ID Date Data Source [id number] 11/06/2019 12:11:00 PM EST [facility] Name Value Range Interpretation Code Description Data Cecy rce(s) Supporting Document(s) Influenza virus A Ag [Presence] in Nasopharynx by Immunoassa y NEGATIVE NORMAL: NEGATIVE [facility] Influenza virus B Ag [Presence] in Nasopharynx by Immunoassa y NEGATIVE NORMAL: NEGATIVE [facility] NEGATIVENEGATIVE PROCEDURAL CO NTROL VALID KIT [...] other patient managementdecisions. ID Date Data Source [id number] 11/06/2019 11:55:00 AM EST [facility] Name Value Range Interpretation Code Description Data Cecy rce(s) Supporting Document(s) [facility] COL[facility] yellow NORMAL: Yellow [facility] CLARITY clear NORMAL: Clear [facility] Specific gravity of Urine by Test strip 1.020 1.001 - 1.030 [facility] pH 7 5 - 9 [facility] al Glucose [Mass/volume] in Urine by Test strip NORM NORMAL: Negat [facility] Bilirubin.total [Presence] in Urine by Test strip NEG NORMAL: Negative [facility] Ketones [Presence] in Urine by Test strip NEG NORMAL: Negative [facility] Protein [Mass/volume] in Urine by Test strip NEG NORMAL: Negat [facility] Nitrite [Presence] in Urine by Test strip NEG NORMAL: Negative [facility] BLOOD NEG NORMAL: Negative [facility] Leukocyte esterase [Presence] in Urine by Test strip NEG [place] L: Negative [facility] Urobilinogen [Mass/volume] in Urine by Test strip 4 less alida n 1.0 mg/dL [facility] MICROSCOPIC Not Indicate [facility] Procedure Social History Code Duration Value Status Description Data Source(s ) Smoking 11/17/2020 12:00:00 AM EST Smoker, current status unkn own completed Smoker, current status unknown [facility]) Smoking 11/02/2020 12:00:00 AM EST Smoker, current status unkn own completed Smoker, current status unknown [facility] ([facility]) Smoking 10/20/2020 12:00:00 AM EST Smoker, current status unkn own completed Smoker, current status unknown [facility] ([facility]) Smoking 09/24/2020 12:00:00 AM EST Smoker, current status unkn own completed Smoker, current status unknown [facility] ([facility]) Smoking 09/02/2020 12:00:00 AM EST Smoker, current status unkn own completed Smoker, current status unknown [facility] ([facility]) Smoking 08/19/2020 12:00:00 AM EDT Smoker, current status unkn own completed Smoker, current status unknown [facility] ([facility]) Smoking 08/18/2020 12:00:00 AM EDT Smoker, current status unkn own completed Smoker, current status unknown [facility] ([facility]) Smoking 07/29/2020 12:00:00 AM EDT Smoker, current status unkn own completed Smoker, current status unknown [facility] ([facility]) Smoking 07/22/2020 12:00:00 AM EDT Smoker, current status unkn own completed Smoker, current status unknown [facility] ([facility]) Smoking 07/10/2020 12:00:00 AM EDT Smoker, current status unkn own completed Smoker, current status unknown [facility] ([facility]) Smoking 04/13/2020 12:00:00 AM EDT Smoker, current status unkn own completed Smoker, current status unknown [facility] ([facility]) Smoking 02/24/2020 12:00:00 AM EDT Smoker, current status unkn own completed Smoker, current status unknown [facility] ([facility]) Smoking 02/19/2020 12:00:00 AM EDT Smoker, current status unkn own completed Smoker, current status unknown [facility] ([facility]) Smoking 01/28/2020 12:00:00 AM EDT Smoker, current status unkn own completed Smoker, current status unknown [facility] ([facility]) Smoking 01/10/2020 12:00:00 AM EDT Smoker, current status unkn own completed Smoker, current status unknown [facility] ([facility]) Smoking 12/26/2019 12:00:00 AM EST Smoker, current status unkn own completed Smoker, current status unknown [facility] ([facility]) Smoking 12/09/2019 12:00:00 AM EST Smoker, current status unkn own completed Smoker, current status unknown [facility] ([facility]) Smoking 10/21/2019 12:00:00 AM EST Smoker, current status unkn own completed Smoker, current status unknown [facility] ([facility]) Smoking 10/07/2019 12:00:00 AM EST Smoker, current status unkn own completed Smoker, current status unknown [facility])
--- OUTSIDE RECORDS SUMMARY | 2020-11-18 14:26 | CCD ---
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 [facility] 1 Clinical Report - Physicians/Mid Levels [facility] Emergency Department [address] [place] [address] Phone #: ext- [phone] 08/29/2020 00:12 Patient: [...] Abrasions 2 Clinical Report - Physicians/Mid Levels [facility] Emergency Department [address] [place] [address] Phone #: ext- [phone] 08/29/2020 00:12 Patient: [...] ABD //T// PELV W/O ORAL W/[place] [address] ---------N RYANN--------- NUMBER SEX AGE ADMIT DISC. XRAY# F/C TYPE BENJAMÍN Navarro [id number] M 29 08/29/20 [id number] NA E/R DATE OF : 1990 M/R# [id number] #: [id number] TR-03 3 Clinical Report - Physicians/Mid Levels [facility] Emergency Department [address] [place] [address] Phone #: ext- [phone] 08/29/2020 00:12 [id number] Sex: M : 1990 Age: 29y LOCATION: EMERGENCY DEPT TRANSCRIBED: 08/29/20 2:[address] ABD //T// PELV W/O ORAL W/[place] [address] COMPLETED:08/29/20 2:18 RLB 24707 Reason(s): Trauma/Injury PHYSICIAN: ANTHONY BR = R [...] pathologyevident.IMPRESSION: 4 Clinical Report - Physicians/Mid Levels [facility] Emergency Department [address] [place] [address] Phone #: ext- [phone] 08/29/2020 00:12 Patient: [...] Finalresults Exam CT ST NECK W/[place] [address] ---------NAME--------- NUMBER SEX AGE ADMIT DISC. XRAY# F/C TYPE BENJAMÍN Navarro [id number] M 29 08/29/20 [id number] NA E/R DATE OF : 1990 M/R# [id number] #: [id number] TR-03 LOCATION: EMERGENCY DEPT TRANSCRIBED: 08/29/20 2:[address] NECK W/O CONTRAST [address] COMPLETED:08/29/20 2:18 RLB [id number] Reason(s): Trauma/Injury PHYSICIAN: ANTHONY BR R A [...] or gas. 5 Clinical Report - Physicians/[facility] Emergency Department [address] [place] [address] Phone #: ext- [phone] 08/29/2020 00:12 Patient: [...] Final results Exam CT THORAX W/O CONTRAST [address] [address] ---------NAME--------- NUMBER SEX AGE ADMIT DISC. XRAY# F/C TYPE MANTLE CAMILO D [id number] M 29 08/29/20 [id number] NA E/R DATE OF : 1990 M/R# [id number] #: [id number] TR-03 LOCATION: EMERGENCY DEPT TRANSCRIBED: 08/29/20 2:[address] THORAX W/O CONTRAST [address] COMPLETED:08/29/20 2:18 RLB 53662 Reason(s): Trauma/Injury PHYSICIAN: ANTHONY BR R A [...] provided. 6 Clinical Report - Physicians/Mid Levels [facility] Emergency Department [address] [place] [address] Phone #: ext- [phone] 08/29/2020 00:12 Patient: [...] NEGATIVE (NORMAL: NEGAT 7 Clinical Report - Physicians/[facility] Emergency Department [address] [place] [address] Phone #: ext- [phone] 08/29/2020 00:12 Patient: [...] PRESUMPTIVE POSITIVE CONFIRMATION [facility]CMP: (LULU: 08/29/2020 01:35) ( MsgRcvd [...] Male GFR Interprentation 20-49 yrs >60 mL/min Rebtdq93-39 yrs >56 mL/min Normal 60-69 yrs >49 mL/min Normal 70-79yrs>42 mL/min Normal 80 and above >35 mL/min Normal Female GFRInterpretation 20-39 yrs >60 mL/min Normal 40-49 yrs >58 mL/minNormal 50-59 yrs >51 mL/min Normal 60-69 yrs >45 mL/min Bibjqz83-33 yrs >39 mL/min Normal 80 and above [...] 8 C linical Report - Physicians/Mid Levels [facility] Emergency Department [address] [place] [address] Phone #: ext- [phone] 08/29/2020 00:12 Patient: CAMILO BUTTS Sex: M [...] tendencies.). 9 Clinical Report - Physicians/Mid Levels [facility] Emergency Department [address] [place] [address] Phone #: ext- [phone] 08/29/2020 00:12 Patient: [...] rce(s) Supporting Document(s) ID Date Data Source [id number] 08/29/2020 02:56:00 AM [facility] [address] [facility] [place] [address] ---------NAME--------- NUMBER SEX AGE ADMIT DISC. XRAY# F/C TYPE MANTLE CAMILO Navarro [id number] M 29 08/29/20 [id number] NA E/R DATE OF : 1990 M/R# [id number] #: [id number] TR-03 LOCATION: EMERGENCY DEPT TRANSCRIBED: 08/29/20 2:[address] THORAX W/O CONTRAST [address] COMPLETED:08/29/20 2:18 RLB 85097 Reason(s): Trauma/Injury PHYSICIAN: ANTHONY BR R A [...] rce(s) Supporting Document(s) ID Date Data Source [id number] 08/29/2020 02:39:[address] [address] ---------NAME--------- NUMBER SEX AGE ADMIT DISC. XRAY# F/C TYPE MANTLE CAMILO D [id number] M 29 08/29/20 [id number] NA E/R DATE OF : 1990 M/R# [id number] #: [id number] TR-03 LOCATION: EMERGENCY DEPT TRANSCRIBED: 08/29/20 2:[address] ABD //T// PELV W/O ORAL W/[place] [address] COMPLETED:08/29/20 2:18 RLB 42592 Reason(s): Trauma/Injury PHYSICIAN: ANTHONY BR======== R A [...] Name Value Range Interpretation Code Description Data Ccey rce(s) Supporting Document(s) ID Date Data Source [id number] 08/29/2020 02:37:[address] [place] [address] [facility] [place] [address] ---------NAME--------- NUMBER SEX AGE ADMIT DISC. XRAY# F/C TYPE MANTLE CAMILO D [id number] M 29 08/29/20 [id number] NA E/R DATE OF : 1990 M/R# [id number] PH#: [phone] TR-03 LOCATION: EMERGENCY DEPT TRANSCRIBED: 08/29/20 2:[address] NECK W/O CONTRAST 74774 COMPLETED:08/29/20 2:18 RLB [id number] Reason(s): Trauma/Injury PHYSICIAN: ANTHONY BR R A [...] rce(s) Supporting Document(s) ID Date Data Source [id number] 08/29/2020 02:02:[address] [facility] Name Value Range Interpretation Code Description Data Cecy rce(s) Supporting Document(s) Lipase [Enzymatic activity/volume] in Serum or Plasma 37 U/L 13 - 60 [facility] ID Date Data Source [id number] 08/29/2020 02:02:[address] [facility] Name Value Range Interpretation Code Description Data Cecy rce(s) Supporting Document(s) COMPREHENSIVE METABOLIC PANEL [facility] COMPREHENSIVE METABOLIC PANEL Sodium [Moles/volume] in Serum or Plasma 136 mEq/L 134 - 153 [facility] Potassium [Moles/volume] in Serum or Plasma 3.8 mEq/L 3.6 - 5.0 [facility] Chloride [Moles/volume] in Serum or Plasma 103 mEq/L 98 - 107 [facility] Carbon dioxide, total [Moles/volume] in Serum or Plasma 26 MEQ/L 22 - 30 [facility] Glucose [Mass/volume] in Serum or Plasma 106 MG/DL 65 - 110 [facility] BUN 14 MG/DL 7 - 21 [facility] al Creatinine [Mass/volume] in Serum or Plasma 0.6 MG/DL 0.7 - 1.5 L [facility] BUN/CREAT 23 8 - 27 [facility] Protein [Mass/volume] in Serum or Plasma 6.6 G/DL 6.3 - 8.2 [facility] Albumin [Mass/volume] in Serum or Plasma 4.3 G/DL 3.9 - 5.0 [facility] Globulin [Mass/volume] in Serum by calculation 2.3 GM/DL 2.4 - 3.2 L [facility] A/G RATIO 1.9 0.8 - 2.0 [facility] Calcium [Mass/volume] in Serum or Plasma 9.3 MG/DL 8.4 - 10.2 [facility] Bilirubin.total [Mass/volume] in Serum or Plasma 0.8 MG/DL 0.2 - 1.3 [facility] Alkaline phosphatase [Enzymatic activity/volume] in Serum or Plasma 108 U/L 38 - 126 [facility] Aspartate aminotransferase [Enzymatic activity/volume] in Serum or Plasma 17 U/L 5 - 40 [facility] Alanine aminotransferase [Enzymatic activity/volume] in Seru m or Plasma 18 U/L 7 - 56 [facility] Anion gap 3 in Serum or Plasma 7.0 mmol/L 8.0 - 16.0 L [facility] AGE 29 yrs [facility] al NON-AA GFR >60 mL/min [facility] ital AFR AMER GFR >60 mL/min [facility] Male GFR In terprentation [...] >32 mL/min Normal ID Date Data Source [id number] 08/29/2020 01:45:[address] [facility] Name Value Range Interpretation Code Description Data Cecy rce(s) Supporting Document(s) Lactate [Moles/volume] in Serum or Plasma 1.0 MMOL/L 0.2 - 2.2 [facility] ID Date Data Source [id number] 08/29/2020 01:42:[address] [facility] Name Value Range Interpretation Code Description Data Cecy rce(s) Supporting Document(s) CBC W/AUTOMATED DIFF [facility] COMPLETE BLOOD COUNT Leukocytes [#/volume] in Blood by Automated count 8.4 10^3/uL 4.2 - 1 1.0 [facility] Erythrocytes [#/volume] in Blood by Automated count 4.97 10^6/uL 4. 50 - 6.30 [facility] Hemoglobin [Mass/volume] in Blood 15.1 g/dL 14.0 - 16.0 [facility] Hematocrit [Volume Fraction] of Blood by Automated count 43.8 % 4 1.0 - 51.0 [facility] Erythrocyte mean corpuscular volume [Entitic volume] by Auto mated count 88.1 fL 80.0 - 94.0 [facility] Erythrocyte mean corpuscular hemoglobin [Entitic mass] by Automated count 30.4 pg 27.0 - 34.0 [facility] Erythrocyte mean corpuscular hemoglobin concentration [Mass/volume] by Automated count 34.5 g/dL 31.0 - 36.0 [facility] Erythrocyte distribution width [Ratio] by Automated count 12.6 % 11.5 - 14.8 [facility] Platelets [#/volume] in Blood by Automated count 258 10^3/uL 150 - 45 0 [facility] Platelet mean volume [Entitic volume] in Blood by Automated count 9.9 fL 7.4 - 10.4 [facility] Neutrophils/100 leukocytes in Blood by Automated count 59.4 % 37. 0 - 80.0 [facility] Lymphocytes/100 leukocytes in Blood by Manual count 28.6 % 25.0 - 40.0 [facility] Monocytes/100 leukocytes in Blood by Automated count 8.9 % 3.0 - 8.0 H [facility] Eosinophils/100 leukocytes in Blood by Automated count 2.1 % 0.0 - 7.0 [facility] Basophils/100 leukocytes in Blood by Automated count 0.6 % 0.0 - 2.0 [facility] %IG 0.4 % 0.0 - 0.0 H [facility] al %NRBC 0.0 % 0.0 - 0.0 [facility] al Neutrophils [#/volume] in Blood by Automated count 4.99 10^3/uL 2.00 - 6.90 [facility] Lymphocytes [#/volume] in Blood by Automated count 2.40 10^3/uL 0.60 - 3.40 [facility] Monocytes [#/volume] in Blood by Automated count 0.75 10^3/uL 0.00 - 0.90 [facility] Eosinophils [#/volume] in Blood by Automated count 0.18 10^3/uL 0.00 - 0.70 [facility] Basophils [#/volume] in Blood by Automated count 0.05 10^3/uL 0.00 - 0.20 [facility] #IG 0.03 10^3/uL 0.00 - 0.10 [facility] ospital #NRBC 0.00 10^3/uL 0.00 - 0.00 [facility] MANUAL DIFF NOT INDICATED [facility] RBC MORPH NOT INDICATED [facility] spital ID Date Data Source [id number] 08/29/2020 01:40:00 AM EST [facility] Name Value Range Interpretation Code Description Data Cecy rce(s) Supporting Document(s) DRUG SCREEN URINE [facility] URINE DRUG SCREEN Amphetamine [Presence] in Urine by Screen method NEGATIVE NORMAL: N EGATIVE [facility] BARBITURATES NEGATIVE NORMAL: NEGATIVE [facility] BENZO NEGATIVE NORMAL: NEGATIVE [facility] COCAINE NEGATIVE NORMAL: NEGATIVE [facility] Tetrahydrocannabinol [Presence] in Urine NEGATIVE NORMAL: NEGATIVE [facility] OPIATES NEGATIVE NORMAL: NEGATIVE [facility] Phencyclidine [Presence] in Urine by Screen method NEGATIVE NOR MAL: NEGATIVE [facility] \\BLDo\\URINE DRUG SCR EEN INTERPRETATION\\BLDx\\ THE CUTOFFF LEVELS FOR DETECTION ARE FOLLOWS: AMPHETAMINES 1000 ng/ml BARBITUARATES 200 ng/ml BENZODIAZEPINES 100 ng/ml THC 50 ng/ml PHENCYCLIDINE 25 ng/ml OPIATES 300 ng/ml COCAINE 300 ng/ml ALL POSITIVES ARE CONSIDERED PRESUMPTIVE POSITIVE CONFIRMATION WILL BE PERFORMED AT PHYSICIAN REQUEST. ID Date Data Source [id number] 08/29/2020 01:25:00 AM EST [facility] Name Value Range Interpretation Code Description Data Cecy rce(s) Supporting Document(s) URINALYSIS [facility] URINALYSIS SOURCE R [facility] al COLOR yellow NORMAL: Yellow [facility] ospital CLARITY clear NORMAL: Clear [facility] Ho spital Specific gravity of Urine by Test strip 1.010 1.001 - 1.030 [facility] pH 6.5 5 - 9 [facility] Glucose [Mass/volume] in Urine by Test strip NORM NORMAL: Negat [facility] Bilirubin.total [Presence] in Urine by Test strip NEG NORMAL: Negative [facility] Ketones [Presence] in Urine by Test strip NEG NORMAL: Negative [facility] Protein [Mass/volume] in Urine by Test strip NEG NORMAL: Negat [facility] Nitrite [Presence] in Urine by Test strip NEG NORMAL: Negative [facility] BLOOD NEG NORMAL: Negative [facility] Leukocyte esterase [Presence] in Urine by Test strip NEG [place] L: Negative [facility] Urobilinogen [Mass/volume] in Urine by Test strip NOR less alida n 1.0 mg/dL [facility] MICROSCOPIC Not Indicate [facility] H ospital ID Date Data Source [id number] 08/19/2020 01:52:52 PM EDT [facility] Vital SignsBlood Pressure: 138/82 Patient History Medical History:Brain TumorSeizure DisorderDepressionHx of kidney stonesBipolarSurgical History:Partial lobectomyFamily History:No known family historySocial/Personal History: Smoking Status: current some day smokerDo you vape? NoCurrent Problems: Normal examination (ICD-V65.5) (EOC59-I71.1)Dental caries/Impaction of teeth (ICD-521.00) (ZJZ60-M54.9)Contact dermatitis and other eczema, unspecified cause (ICD-692.9) (RML22-Q98.9)Depression (ICD-311) (VLI44-J81.9)Seizure Disorder (ICD-780.39) (JMT04-V13.9)Brain Tumor (ICD-191.9) (BTQ88-X40.9)Problem list reviewed during this update.Current Medications: SEROQUEL [...] Description[E] Decay On #14 Surface O Chart Alert:[facility] Prophy 1 per 6 month periodchild through [...] PM): ; yany (Aug 20 2020 7:29AM): [facility](-). CC: none. Reviewed Xrays. Exam: caries [...] Known Allergies (updated 08/19/2020) Orders:Oral Surgery Referral [[id number]] Clinical Visit Summary Declined Name Value Range Interpretation Code Description Data Cecy rce(s) Supporting Document(s) ID Date Data Source [id number] 08/14/2020 07:17:00 PM EDT [facility] 1 Medication Reconciliation Report [facility] Emergency Department [address] [place] [address] Phone #: ext- [phone] 08/14/2020 19:09 Patient: [...] rce(s) Supporting Document(s) ID Date Data Source [id number] 08/14/2020 07:17:00 PM EDT [facility] 1 Medication Administration Record [facility] Emergency Department [address] [place] [address] Phone #: ext- [phone] 19:09 Patient: CAMILO BUTTS Sex: M : 1990 Age: 29yWeight: 81.6 kgHeight/Length: 72 inBMI: 24.4ALLERGIES: No Known Drug AllergyDate/Time Medication Administered Medication Ordered Name Value Range Interpretation Code Description Data Cecy rce(s) Supporting Document(s) ID Date Data Source [id number] 08/14/2020 07:17:00 PM EDT [facility] 1 General Instructions [facility] Emergency Department [address] [place] [address] Phone #: ext- [phone] 08/14/2020 19:09 Patient: CAMILO BUTTS Sex: M : 1990 Age: 29y Anxiety reaction. No hyperventilation.INSTRUCTIONS Warnings: GENERAL WARNINGS: Return or contact your physician immediately if your condition worsens or changes unexpectedly, if not improving as expected, or if other problems arise. Understanding of the discharge instructions verbalized by patient. Follow-up with: [facility], , , [address] [place] [address], [facility] Follow up in one week. Call [...] may experience: Dry mouth 2 General Instructions [facility] Emergency Department [address] [place] [address] Phone #: ext- [phone] 08/14/2020 19:09 Patient: [...] Also, there are certain 3 General Instructions [facility] Emergency Department [address] [place] [address] Phone #: ext- [phone] 08/14/2020 19:09 Patient: [...] andtemporary medicine to help you manage stress.Call [id number] [phone] if any of these happen: Trouble breathing [...] and mild pain reliever 4 General Instructions [facility] Emergency Department [address] [place] [address] Phone #: ext- [phone] 08/14/2020 19:09 Patient: CAMILO BUTTS Sex: M : 1990 Age: 29y [phone] [employer]. [address] [place] [address]. All rights reserved. This information is not intended as asubstitute for professional medical care. Always follow your healthcare professional's instructions. You have been given the following additional information: Anxiety Reaction(Electronically signed by Pedro Kim, 08/14/2020 20:15) Name Value Range Interpretation Code Description Data Cecy rce(s) Supporting Document(s) ID Date Data Source [id number] 08/14/2020 07:17:00 PM EDT [facility] 1 Clinical Report - Nurses [facility] Emergency Department [address] [place] [address] Phone #: ext- [phone] 08/14/2020 19:09 [id number] Sex: M : 1990 Age: 29yTRIAGEHistorian: patient.Acuity: [...] no barriers. 2 Clinical Report - Nurses [facility] Emergency Department [address] [place] [address] Phone #: ext- [phone] 08/14/2020 19:09 Patient: CAMILO BUTTS Sex: M : 1990 Age: 29y FALL RISK ASSESSMENT: Fall risk assessment completed. No risk factors identified. SKIN INTEGRITY ASSESSMENT: Skin integrity risk assessment completed. No skin integrity risk identified. --19:30 08/14/20 Alfonso Buck R.N. FAMILY HX: No significant family medical history. --19:53 08/14/20 Pedro Kim.PHYSICAL OZOFPOEPKE23:35 08/14/20. Ambulatory to room.GENERAL / NEURO / [...] understanding. Written instructions provided in [place]. The patient was discharged home and unaccompanied at time of discharge. He left ambulatory and via taxi. 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 --20:04 08/14/20 Carito Barry R.N. 20:03 08/14/20. BP: 141/93. MAP: 109. HR: 81. RR: 16. O2 saturation: 98%. Temp: 97.9 F. Pain level now: 0. --20:04 08/14/20 Carito Barry R.N.Locked/Released at 08/14/2020 20:04 by Carito Barry R.N. Name Value Range Interpretation Code Description Data Cecy rce(s) Supporting Document(s) ID Date Data Source [id number] 08/14/2020 07:17:00 PM EDT [facility] 1 Clinical Report - Physicians/Mid Levels [facility] Emergency Department [address] [place] [address] Phone #: ext- [phone] 08/14/2020 19:09 Patient: [...] alone. 2 Clinical Report - Physicians/Mid Levels [facility] Emergency Department [address] [place] [address] Phone #: ext- [phone] 08/14/2020 19:09 Patient: CAMILO BUTTS Sex: M [...] patient. 3 Clinical Report - Physicians/Mid Levels [facility] Emergency Department [address] [place] [address] Phone #: ext- [phone] 08/14/2020 19:09 Patient: CAMILO BUTTS Sex: M : 1990 Age: 29y Follow-up with: [facility], , , [address] [place] [address], [facility] Follow up in one week. Call for an appointment.(Electronically signed by Pedro Kim, 08/14/2020 20:15) Name Value Range Interpretation Code Description Data Cecy rce(s) Supporting Document(s) ID Date Data Source [id number] 05/04/2020 10:53:00 [place] [address] PHONE: [phone] FAX: [phone] Name .................. : BENJAMÍN Navarro Acct Number.................. : [id number] ROOM. ................. : TR-07 MR Number ................... : [id number] Stay type ............. : E/R Discharge Date......... ... : Admit Date ......... : 05/02/20 Admit Phys .................... : SAQIB GRUBBS Date of ....... : 1990 Family Phys ................... : NON STAFF Phone .................. : [phone] Age ................................ : 29 Film# .................. .:[id number] Sex ................................. : M Unsigned transcriptions are preliminary reports and do not represent a medical or legal document CT HEAD W/O CONTRAST [id number] COMPLETE:05/02/20 11:52 KBO 68080 Reason(s): Head Pain CT OF THE HEAD [...] rce(s) Supporting Document(s) ID Date Data Source [id number] 05/04/2020 10:53:00 AM EDT [facility] [address] [place] [address] PHONE: [phone] FAX: [phone] Name .................. : BENJAMÍN Navarro Acct Number.................. : [id number] ROOM. ................. : TR-07 Number ................... : [id number] Stay type ............. : E/R Discharge Date......... ... : Admit Date ......... : 05/02/20 Admit Phys .................... : SAQIB HUMERA Date of ....... : 1990 Family Phys ................... : NON STAFF Phone .................. : [phone] Age ................................ : 29 Film# .................. .:[id number] Sex ................................. : M Unsigned transcriptions are preliminary reports and do not represent a medical or legal document CHEST PORTABLE [id number] COMPLETE:05/02/20 11:52 KBO 38884 Reason(s): seizure PORTABLE CHEST X-RAY: COMPARISON: 11/06/19 [...] for: EMERGENCY DEPT via modem Copy for: [address] [place] [address] REC DISCHARGED Page 1 of 1 Name Value Range Interpretation Code Description Data Cecy rce(s) Supporting Document(s) ID Date Data Source [id number] 05/03/2020 01:07:00 [place] [address] RESPIRATORY CARE REPORT ==== ---------NAME------- NUMBER SEX AGE ADMIT DISC. XRAY# F/C JULIAN Navarro [id number] M 29 05/02/20 05/02/20 [id number] XBE E/R DATE OF : 1990 M/R# [id number] #: [id number] TR-07 LOCATION: EMERGENCY DEPT EKG 93996 COMPLE TE:05/02/20 14:49 [place] [address] PHYSICIAN: SAQIB HUGGINS CH Name Value Range Interpretation Code Description Data Cecy rce(s) Supporting Document(s) ID Date Data Source [id number] 05/02/2020 10:49:00 AM EDT [facility] 1 OrderSheet [facility] Emergency Department [address] [place] [address] Phone #: ext- [phone] 05/02/2020 10:49 Patient: CAMILO BUTTS Sex: M [...] STAT 11:06 05/02/2020 11:14 Freddy 2 OrderSheet [facility] Emergency Department [address] [place] [address] Phone #: ext- [phone] 05/02/2020 10:49 Patient: CAMILO BUTTS Sex: M [...] 05/02/2020 11:14 TerryMonitor Francisco J Blanchard RN P.A.-C;Reception Manager 11:11 05/02/2020 11:14 Freddy(continuous) Francisco J Blanchard RN P.A.-C;NPO 11:11 05/02/2020 11:14 Freddy 3 OrderSheet [facility] Emergency Department [address] [place] [address] Phone #: ext- [phone] 05/02/2020 10:49 Patient: [...] rce(s) Supporting Document(s) ID Date Data Source [id number] 05/02/2020 10:49:00 AM EDT [facility] 1 Medication Reconciliation Report [facility] Emergency Department [address] [place] [address] Phone #: ext- [phone] 05/02/2020 10:49 Patient: [facility]IL[facility] BUTTS [id number] Sex: M : 1990 Age: 29yWeight: 83.9 [...] rce(s) Supporting Document(s) ID Date Data Source [id number] 05/02/2020 10:49:00 AM EDT [facility] 1 Medication Administration Record [facility] Emergency Department [address] [place] [address] Phone #: ext- [phone] 05/02/2020 10:49 Patient: [...] rce(s) Supporting Document(s) ID Date Data Source [id number] 05/02/2020 10:49:00 AM EDT [facility] 1 General Instructions [facility] Emergency Department [address] [place] [address] Phone #: [phone] cyl- [phone] 05/02/2020 10:49 Patient: CAMILO BUTTS Sex: M [...] discharge instructions verbalized by patient.Follow-up with: [facility], , [id number], [address] [place], [address] Follow up. Call for the next available [...] change to another medicine. 2 General Instructions [facility] Emergency Department [address] [place] [address] Phone #: ext- [phone] 05/02/2020 10:49 Patient: [...] and/or another type of 3 General Instructions [facility] Emergency Department [address] [place] [address] Phone #: ext- [phone] 05/02/2020 10:49 Patient: [...] Headache that gets worse 4 General Instructions [facility] Emergency Department [address] [place] [address] Phone #: ext- [phone] 05/02/2020 10:49 Patient: CAMILO BUTTS Sex: M : 1990 Age: 29y [phone] [employer]. [address] [place] [address]. All rights reserved. This information is not intended as asubstitute for professional medical care. Always follow your healthcare professional's instructions. You have been given the following additional information: Seizure, Recurrent (Adult) No driving or operating machinery until released.(Electronically signed by Francisco J Huggins P.A.-C 05/03/2020 10:57) Name Value Range Interpretation Code Description Data Cecy rce(s) Supporting Document(s) ID Date Data Source [id number] 05/02/2020 10:49:00 AM EDT [facility] 1 Clinical Report - Nurses [facility] Emergency Department [address] [place] [address] Phone #: ext- [phone] 05/02/2020 10:49 Patient: [...] trauma. Did not miss recentdose of anticonvulsant.Treatment DEVELOPMENT ARCHITECT:None.SEPSIS SCREEN: SIRS Screen negative. Sepsis Screen negative. [...] tablet, daily at bedtime. --10:56 05/02/20 Freddy Blanhcard RN.AllergiesNo Known Drug Allergy. --10:56 05/02/20 Freddy Blanchard RN.Edlpfqe76:59 05/02/20.PAST MEDICAL HX: Seizures. No history of [...] no deficiencies. 2 Clinical Report - Nurses [facility] Emergency Department [address] [place] [address] Phone #: ext- [phone] 05/02/2020 10:49 Patient: [facility]ILO BUTTS [id number] Sex: M : 1990 Age: 29y FUNCTIONAL [...] To room. --10:59 05/02/20 Freddy Blanchard RN.PHYSICAL WCEEDRQMFB53:05/02/20. To room via stretcher.GENERAL / NEURO / [...] Cardiac rhythm: normal sinus rhythm; (1050). monitoring tech, NIBP monitor and pulse oximeter placed on patient; cardiac cath lab technologist- Lead II; monitor alarms on; monitor strip [...] at 75 3 Clinical Report - Nurses [facility] Emergency Department [address] [place] [address] Phone #: ext- [phone] 05/02/2020 10:49 Patient: CAMILO BUTTS A cct#: [id number] Sex: M : 1990 Age: 29ymL/hr over [...] to the PA (1120). Patient transported to [facility] with nurse and customer service technician. (1130). Patient returned from CT by stretcher with nurse andradiology tech. (1135). --11:44 05/02/20 Shmuel Prettyzudustin precautions maintained: side rails up x2 and padded, suction and O2 at bedside, patient in view of[employer] Network's station and call abbasi in reach (1050). [...] Specimen labeled in the presenceof the patient (7159). --12:34 05/02/20 Freddy Blanchard RN12:44 05/02/2020 Tylenol [...] Blanchard RN 4 Clinical Report - Nurses [facility] Emergency Department [address] [place] [address] Phone #: ext- [phone] 05/02/2020 10:49 Patient: CAMILO BUTTS Sex: M : 1990 Age: 29y 13:34 05/02/2020 Tylenol PO Response: pain is improving. Symptoms have improved the patient feels better. Physician assistant dean notified. --13:34 05/02/20 Freddy Blanchard RN 13:34 05/02/2020 Ativan PO Response: pain is improving. Symptoms have improved the patient feels better. Physician assistant dean notified. --13:34 05/02/20 Freddy Blanchard RN 13:00 [...] understanding. Written instructions provided in [place]. The patient was discharged by the physician assistant dean. He was discharged home and accompanied by parent. He left ambulatory and via private vehicle. Parent driving. --13:57 05/02/20 Freddy Blanchard RN 13:45 05/02/2020 Site #1 removed upon discharge. Catheter intact. Bandaid applied. --13:58 05/02/20 Freddy Blanchard RN.Locked/Released at 05/02/2020 16:59 by Freddy Blanchard RN Name Value Range Interpretation Code Description Data Cecy rce(s) Supporting Document(s) ID Date Data Source [id number] 05/02/2020 10:49:00 AM EDT [facility] 1 Clinical Report - Physicians/Mid Levels [facility] Emergency Department [address] [place] [address] Phone #: ext- [phone] 05/02/2020 10:49 Patient: [facility]ILO BUTTS [id number] Sex: M : 1990 Age: 29y Time [...] tumor. See old chart. Problems: Insomnia [Chronic]. [place] disorder. Lifestyle / Substance Problems. Neurological Disease. Bipolar Disorder. Obsessive Compulsive Disorder. ADHD - Attention Deficit Hyperactivity Disorder. Seizure. Tendonitis. STD - Sexually Transmitted Disease. 2 Clinical Report - Physicians/Mid Levels [facility] Emergency Department [address] [place] [address] Phone #: ext- [phone] 05/02/2020 10:49 Patient: CAMILO BUTTS [id number] Sex: M : 1990 Age: 29y Tbi. [...] 2+. 3 Clinical Report - Physicians/Mid Levels [facility] Emergency Department [address] [place] [address] Phone #: ext- [phone] 05/02/2020 10:49 Patient: CAMILO BUTTS [facility]#: [id number] Sex: M : 1990 Age: 29y Respiratory: [...] O2? Oxygen?(No) Room: ED Exam CHEST PORTABLE [facility] [address] [place] [address] PHONE: [phone] FAX: [phone] Name .................. : BENJAMÍN Navarro Acct Number.................. : [id number] ROOM. ................. : TR-07 MR Number ................... : [id number] Stay type ............. : E/R Discharge Date......... ... : Admit Date ......... : 05/02/20 Admit Phys .................... : SAQIB GRUBBS Date of ....... : 1990 Family Phys ................... : NON STAFF Phone .................. : [phone] Age ................................ : 29 Film# .................. .:[id number] Sex ................................. : M Unsigned transcriptions are preliminary reports and do not represent a medical or legal document CHEST PORTABLE [id number] COMPLETE:05/02/20 11:52 KBO 78203 Reason(s): seizure 4 Clinical Report - Physicians/Mid Levels [facility] Emergency Department [address] [place] [address] Phone #: ext- [phone] 05/02/2020 10:49 Patient: [...] Page 1of 1Urinalysis: (LULU: 05/02/2020 12:30) ( [facility] 05/02/2020 12:52) Final results Test Result Flag [...] NONEDrug Screen- Urine: (LULU: 05/02/2020 12:30) ( [facility] 05/02/2020 12:52) Final results Test Result Flag Units (Reference) DRUG SCREEN URINE URINE DRUG SCREEN AMPHETAMINES NEGATIVE (NORMAL: NEGAT 5 Clinical Report - Physicians/Mid Levels [facility] Emergency Department [address] [place] [address] Phone #: ext- [phone] 05/02/2020 10:49 Patient: CAMILO BUTTS Sex: M [...] PRESUMPTIVE POSITIVE CONFIRMATION WILL BE PERFORMED AT [facility].CMP: (LULU: 05/02/2020 11:13) ( Msg[facility]cvd 05/02/2020 11:44) [...] Male GFR Interprentation 20-49 yrs >60 mL/min Jlaanq11-59 yrs >56 mL/min Normal 60-69 yrs >49 mL/min Normal 70-79yrs>42 mL/min Normal 80 and above >35 mL/min Normal Female GFRInterpretation 20-39 yrs >60 mL/min Normal 40-49 yrs >58 mL/minNormal 50-59 yrs >51 mL/min Normal 60-69 yrs >45 mL/min Wfddfq06-67 yrs >39 mL/min Normal 80 and above [...] 34.0) 6 Clinical Report - Physicians/Mid Levels [facility] Emergency Department [address] [place] [address] Phone #: ext- [phone] 05/02/2020 10:49 Patient: [...] MORPH NOT INDICATEDCPK: (LULU: 05/02/2020 11:13) ( [facility] 05/02/2020 11:44) Final results Test Result Flag Units (Reference) CPK 204 H U/L (30 - 170)Acetaminophen Level: (LULU: 05/02/2020 11:13) ( [facility] 05/02/2020 11:41) Final results Test Result Flag Units (Reference) ACETAMINOPHEN <5.0 UG/ML (0.0 - 30.0)Salicylate Level: (LULU: 05/02/2020 11:13) ( [facility] 05/02/2020 11:44) Final results Test Result Flag Units (Reference) SALICYLATE <0.3 L mg/dL (2.0 - 20.0)CT Head W/O Cont: (LULU: 05/02/2020 11:06) ( [facility] 05/02/2020 12:26) In ProgressCT HEAD W/O CONTRASTReason(s): Head PainTRANSPORTATION: WC IV? O2? Oxygen?(No) Room: ED CMTS: Seizure Exam CT HEAD W/[place] [address] PHONE: [phone] FAX: [phone] Name .................. : BENJAMÍN Navarro Acct Number.................. : [id number] ROOM. ................. : [facility] MR Number ................... : [id number] Stay type ............. : E/R Discharge Date......... ... : Admit Date ......... : 05/02/20 Admit Phys .................... : SAQIB HUMERA Date of ....... : 1990 Family Phys ................... : NON STAFF Phone .................. : [phone] Age ................................ : 29 Film# .................. .:[id number] Sex ................................. : M Unsigned transcriptions are preliminary reports and do not represent a medical or legal document CT HEAD W/O CONTRAST [id number] COMPLETE:05/02/20 11:52 KBO 95736 Reason(s): Head Pain 7 Clinical Report - Physicians/Mid Levels [facility] Emergency Department [address] [place] [address] Phone #: ext- [phone] 05/02/2020 10:49 Patient: CAMILO BUTTS [facility]#: [id number] Sex: M : 1990 Age: 29y CT [...] a 8 Clinical Report - Physicians/Mid Levels [facility] Emergency Department [address] [place] [address] Phone #: ext- [phone] 05/02/2020 10:49 Patient: CAMILO BUTTS Sex: M [...] cause, 9 Clinical Report - Physicians/Mid Levels [facility] Emergency Department [address] [place] [address] Phone #: ext- [phone] 05/02/2020 10:49 Patient: [...] instructions verbalized by patient. Follow-up with: [facility], , [id number], [address] [place], [address] Follow up. Call for the next available appointment. Reason for referral: evaluation and treatment.(Electronically signed by Francisco J Huggins P.A.-C 05/03/2020 10:57) Name Value Range Interpretation Code Description Data Cecy rce(s) Supporting Document(s) ID Date Data Source [id number] 05/02/2020 12:52:00 PM EDT [facility] Name Value Range Interpretation Code Description Data Cecy rce(s) Supporting Document(s) DRUG SCREEN URINE [facility] URINE DRUG SCREEN Amphetamine [Presence] in Urine by Screen method NEGATIVE NORMAL: N EGATIVE [facility] BARBITURATES NEGATIVE NORMAL: NEGATIVE [facility] BENZO NEGATIVE NORMAL: NEGATIVE [facility] COCAINE NEGATIVE NORMAL: NEGATIVE [facility] Tetrahydrocannabinol [Presence] in Urine NEGATIVE NORMAL: NEGATIVE [facility] OPIATES NEGATIVE NORMAL: NEGATIVE [facility] Phencyclidine [Presence] in Urine by Screen method NEGATIVE NOR MAL: NEGATIVE [facility] \\BLDo\\URINE DRUG SCR EEN INTERPRETATION\\BLDx\\ THE CUTOFFF LEVELS FOR DETECTION ARE FOLLOWS: AMPHETAMINES 1000 ng/ml BARBITUARATES 200 ng/ml BENZODIAZEPINES 100 ng/ml THC 50 ng/ml PHENCYCLIDINE 25 ng/ml OPIATES 300 ng/ml COCAINE 300 ng/ml ALL POSITIVES ARE CONSIDERED PRESUMPTIVE POSITIVE CONFIRMATION WILL BE PERFORMED AT PHYSICIAN REQUEST. ID Date Data Source [id number] 05/02/2020 12:52:00 PM EDT [facility] Name Value Range Interpretation Code Description Data Cecy rce(s) Supporting Document(s) URINALYSIS [facility] akanksha URINALYSIS SOURCE R [facility] al COLOR yellow NORMAL: Yellow [facility] CLARITY clear NORMAL: Clear [facility] Specific gravity of Urine by Test strip 1.020 1.001 - 1.030 [facility] pH 6 5 - 9 [facility] al Glucose [Mass/volume] in Urine by Test strip NORM NORMAL: Negat [facility] Bilirubin.total [Presence] in Urine by Test strip NEG NORMAL: Negative [facility] Ketones [Presence] in Urine by Test strip NEG NORMAL: Negative [facility] Protein [Mass/volume] in Urine by Test strip 15 NORMAL: Negat [facility] Nitrite [Presence] in Urine by Test strip NEG NORMAL: Negative [facility] BLOOD NEG NORMAL: Negative [facility] Leukocyte esterase [Presence] in Urine by Test strip NEG TRENTON L: Negative [facility] Urobilinogen [Mass/volume] in Urine by Test strip NOR less alida n 1.0 mg/dL [facility] MICROSCOPIC See Below [facility] Hosp ital WBC 0 - 1 NORMAL: NONE SEEN [facility] Erythrocytes [#/volume] in Urine by Test strip 0 - 1 NORMAL: NON E SEEN [facility] EPITHELIAL FEW NORMAL: NONE SEEN [facility] Bacteria [Presence] in Urine sediment by Light microscopy Tr mela NORMAL: NONE SEEN [facility] ID Date Data Source [id number] 05/06/2020 06:25:00 AM EDT [facility] Name Value Range Interpretation Code Description Data Cecy rce(s) Supporting Document(s) Prolactin [Mass/volume] in Serum or Plasma 12.7 ng/mL 4.0-15.2 [facility] ID Date Data Source [id number] 05/05/2020 08:12:00 AM EDT [facility] Name Value Range Interpretation Code Description Data Cecy rce(s) Supporting Document(s) Valproate [Mass/volume] in Serum or Plasma <4 ug/mL 50-100 L [facility] Verified by repeat analysis Detection Limit = 4 <4 indicates None Detected Toxicity may occur at levels of 100-500. Measurements of free unbound valproic acid may improve the assess- ment of clinical response. ID Date Data Source [id number] 05/02/2020 11:44:00 AM EDT [facility] Name Value Range Interpretation Code Description Data Cecy rce(s) Supporting Document(s) SALICYLATE <0.3 mg/dL 2.0 - 20.0 L [facility] ID Date Data Source [id number] 05/02/2020 11:44:00 AM EDT [facility] Name Value Range Interpretation Code Description Data Cecy rce(s) Supporting Document(s) Creatine kinase [Enzymatic activity/volume] in Serum or Plasma 2 04 U/L 30 - 170 H [facility] ID Date Data Source [id number] 05/02/2020 11:44:00 AM EDT [facility] Name Value Range Interpretation Code Description Data Cecy rce(s) Supporting Document(s) COMPREHENSIVE METABOLIC PANEL [facility] COMPREHENSIVE METABOLIC PANEL Sodium [Moles/volume] in Serum or Plasma 138 mEq/L 134 - 153 [facility] Potassium [Moles/volume] in Serum or Plasma 3.9 mEq/L 3.6 - 5.0 [facility] Chloride [Moles/volume] in Serum or Plasma 105 mEq/L 98 - 107 [facility] Carbon dioxide, total [Moles/volume] in Serum or Plasma 21 MEQ/L 22 - 30 L [facility] Glucose [Mass/volume] in Serum or Plasma 112 MG/DL 65 - 110 H [facility] BUN 10 MG/DL 7 - 21 [facility] al Creatinine [Mass/volume] in Serum or Plasma 0.6 MG/DL 0.7 - 1.5 L [facility] BUN/CREAT 17 8 - 27 [facility] Protein [Mass/volume] in Serum or Plasma 6.6 G/DL 6.3 - 8.2 [facility] Albumin [Mass/volume] in Serum or Plasma 4.4 G/DL 3.9 - 5.0 [facility] Globulin [Mass/volume] in Serum by calculation 2.2 GM/DL 2.4 - 3.2 L [facility] A/G RATIO 2.0 0.8 - 2.0 [facility] Calcium [Mass/volume] in Serum or Plasma 8.7 MG/DL 8.4 - 10.2 [facility] Bilirubin.total [Mass/volume] in Serum or Plasma <0.7 MG/DL 0.2 - 1.3 [facility] Alkaline phosphatase [Enzymatic activity/volume] in Serum or Plasma 112 U/L 38 - 126 [facility] Aspartate aminotransferase [Enzymatic activity/volume] in Serum or Plasma 25 U/L 5 - 40 [facility] Alanine aminotransferase [Enzymatic activity/volume] in Seru m or Plasma 28 U/L 7 - 56 [facility] Anion gap 3 in Serum or Plasma 12.0 mmol/L 8.0 - 16.0 [facility] AGE 29 yrs [facility] al NON-AA GFR >60 mL/min [facility] ital AFR AMER GFR >60 mL/min [facility] Male GFR In terprentation [...] >32 mL/min Normal ID Date Data Source [id number] 05/02/2020 11:41:00 AM EDT [facility] Name Value Range Interpretation Code Description Data Cecy rce(s) Supporting Document(s) Acetaminophen [Presence] in Urine <5.0 UG/ML 0.0 - 30.0 [facility] ID Date Data Source [id number] 05/02/2020 11:40:00 AM EDT [facility] Name Value Range Interpretation Code Description Data Cecy rce(s) Supporting Document(s) CBC W/AUTOMATED DIFF [facility] COMPLETE BLOOD COUNT Leukocytes [#/volume] in Blood by Automated count 6.9 10^3/uL 4.2 - 1 1.0 [facility] Erythrocytes [#/volume] in Blood by Automated count 5.08 10^6/uL 4. 50 - 6.30 [facility] Hemoglobin [Mass/volume] in Blood 15.1 g/dL 14.0 - 16.0 [facility] Hematocrit [Volume Fraction] of Blood by Automated count 44.7 % 4 1.0 - 51.0 [facility] Erythrocyte mean corpuscular volume [Entitic volume] by Auto mated count 88.0 fL 80.0 - 94.0 [facility] Erythrocyte mean corpuscular hemoglobin [Entitic mass] by Automated count 29.7 pg 27.0 - 34.0 [facility] Erythrocyte mean corpuscular hemoglobin concentration [Mass/volume] by Automated count 33.8 g/dL 31.0 - 36.0 [facility] Erythrocyte distribution width [Ratio] by Automated count 12.4 % 11.5 - 14.8 [facility] Platelets [#/volume] in Blood by Automated count 255 10^3/uL 150 - 45 0 [facility] Platelet mean volume [Entitic volume] in Blood by Automated count 9.9 fL 7.4 - 10.4 [facility] Neutrophils/100 leukocytes in Blood by Automated count 74.4 % 37. 0 - 80.0 [facility] Lymphocytes/100 leukocytes in Blood by Manual count 14.6 % 25.0 - 40.0 L [facility] Monocytes/100 leukocytes in Blood by Automated count 7.5 % 3.0 - 8.0 [facility] Eosinophils/100 leukocytes in Blood by Automated count 1.9 % 0.0 - 7.0 [facility] Basophils/100 leukocytes in Blood by Automated count 0.6 % 0.0 - 2.0 [facility] %IG 1.0 % 0.0 - 0.0 H [facility] al %NRBC 0.0 % 0.0 - 0.0 [facility] al Neutrophils [#/volume] in Blood by Automated count 5.15 10^3/uL 2.00 - 6.90 [facility] Lymphocytes [#/volume] in Blood by Automated count 1.01 10^3/uL 0.60 - 3.40 [facility] Monocytes [#/volume] in Blood by Automated count 0.52 10^3/uL 0.00 - 0.90 [facility] Eosinophils [#/volume] in Blood by Automated count 0.13 10^3/uL 0.00 - 0.70 [facility] Basophils [#/volume] in Blood by Automated count 0.04 10^3/uL 0.00 - 0.20 [facility] #IG 0.07 10^3/uL 0.00 - 0.10 [facility] #NRBC 0.00 10^3/uL 0.00 - 0.00 [facility] MANUAL DIFF NOT INDICATED [facility] RBC MORPH NOT INDICATED [facility] spital ID Date Data Source [id number] 12/11/2019 07:07:00 PM EST [facility] 1 OrderSheet [facility] Emergency Department [address] [place] [address] Phone #: ext- [phone] 12/11/2019 19:05 Patient: [...] rce(s) Supporting Document(s) ID Date Data Source [id number] 12/11/2019 07:07:00 PM EST [facility] 1 Medication Reconciliation Report [facility] Emergency Department [address] [place] [address] Phone #: ext- [phone] 12/11/2019 19:05 Patient: [...] Value Range Interpretation Code Description Data [facility] Supporting Document(s) ID Date Data Source [id number] 12/11/2019 07:07:00 PM [place] [address] Medication Administration Record [facility] Emergency Department [address] [place] [address] Phone #: ext- [phone] 19:05 Patient: CAMILO BUTTS Sex: M : 1990 Age: 29yWeight: 88.4 kgHeight/Length: 72 inBMI: 26.5ALLERGIES: No Known Drug AllergyDate/Time Medication Administered Medication Ordered Name Value Range Interpretation Code Description Data [facility] Supporting Document(s) ID Date Data Source [id number] 12/11/2019 07:07:[address] [facility] 1 General Instructions [facility] Emergency Department [address] [place] [address] Phone #: ext- [phone] 12/11/2019 19:05 Patient: [...] positive, contact your healthcare provider, local clinic, [facility] to be treated, or return to our facility. You will be prescribed antibiotic medicine. Be sure to take all of the antibiotic as prescribed until it is gone or you are told to stop. Keep taking it even if you feel better. 2 General Instructions [facility] Emergency Department [address] [place] [address] Phone #: [phone]- [phone] 12/11/2019 19:05 Patient: CAMILO BUTTS Sex: M [...] up with your provider or the public centervilledepartment for complete STI screening, including HIV testing, and to consider ways to prevent HIV.For more information about STIs, call the CDC information line at [phone] or look at the [employer] online.When to seek medical adviceCall your healthcare [...] p ain or scrotal swelling in men 1882-0611 [employer]. [address] [place] [address]. All rights reserved. This information is not intended as asubstitute for professional medical care. Always follow your healthcare professional's instructions. You have been given the following additional information: Testing for Suspected STI 3 General Instructions [facility] Emergency Department [address] [place] [address] Phone #: ext- [phone] 12/11/2019 19:05 Patient: CAMILO BUTTS Sex: M : 1990 Age: 29y(Electronically signed by HUMERA Kan 12/11/2019 21:47) Name Value Range Interpretation Code Description Data Cecy rce(s) Supporting Document(s) ID Date Data Source [id number] 12/11/2019 07:07:00 PM EST [facility] 1 Clinical Report - Nurses [facility] Emergency Department [address] [place] [address] Phone #: [phone]- [phone] 12/11/2019 19:05 Patient: CAMILO BUTTS Sex: M : 1990 Age: 29yTRIAGEArrived by private vehicle. Historian: patient. Accompanied by (Dropped off by Medicaid cab).Triage time: 19:05 12/11/2019. Acuity: LEVEL 5.Chief Complaint: (Requests STD testing).Alert.This started today. ( Pt states "i would like to make sure i don't have no diseases". Pt denies anysymptoms;). ( Pt very vague during triage/angry/aggressvie).Treatment DEVELOPMENT ARCHITECT:None.SEPSIS SCREEN: NEGATIVE. Negative (no infection suspected/documented). (19:10 [...] and oral 2 Clinical Report - Nurses [facility] Department [address] [place] [address] Phone #: ext- [phone] 12/11/2019 19:05 Patient: [...] Hernandez R.N. 3 Clinical Report - Nurses [facility] Emergency Department [address] [place] [address] Phone #: ext- [phone] 12/11/2019 19:05 Patient: CAMILO BUTST Ramon Sex: M : 1990 Age: 29yDISPOSITION / DISCHARGE Departure time: 19:56 12/11/2019. Condition at departure: stable. No learning barriers present. Reviewed warnings. Reviewed medication(s). Treatments reviewed. Reviewed referrals. Patient verbalized understanding. Written instructions provided in [place]. The patient was discharged by the physician assistant dean. He was discharged home and unaccompanied at [...] rce(s) Supporting Document(s) ID Date Data Source [id number] 12/11/2019 07:07:00 PM EST [facility] 1 Clinical Report - Physicians/Mid Levels [facility] Emergency Department [address] [place] [address] Phone #: ext- [phone] 12/11/2019 19:05 Patient: CAMILO BUTTS Sex: M [...] inspection. 2 Clinical Report - Physicians/Mid Levels [facility] Emergency Department [address] [place] [address] Phone #: ext- [phone] 12/11/2019 19:05 Patient: CAMILO BUTTS Sex: M [...] Testing).INSTRUCTIONS 3 Clinical Report - Physicians/Mid Levels [facility] Emergency Department [address] [place] [address] Phone #: ext- [phone] 12/11/2019 19:05 Patient: CAMILO BUTTS Sex: M [...] rce(s) Supporting Document(s) ID Date Data Source [id number] 12/13/2019 08:10:[address] [facility] Name Value Range Interpretation Code Description Data Cecy rce(s) Supporting Document(s) HIV 1+2 Ab+HIV1 p24 Ag [Presence] in Serum or Plasma b y Immunoassay Non Reactive Non Reactive [facility] ID Date Data Source [id number] 12/11/2019 08:51:[address] [facility] Name Value Range Interpretation Code Description Data Cecy rce(s) Supporting Document(s) Treponema pallidum Ab [Presence] in Serum NON-REACTIVE NORMAL:NON MELBA CTIVE [facility] ID Date Data Source [id number] 12/14/2019 06:49:[address] [facility] Name Value Range Interpretation Code Description Data Cecy rce(s) Supporting Document(s) Chlamydia trachomatis rRNA [Presence] in Unspecified specimen by Probe and target amplification method Negative Negative [facility] Neisseria gonorrhoeae rRNA [Presence] in Unspecified specimen by Probe and target amplification method Negative Negative [facility] ID Date Data Source [id number] 12/11/2019 07:34:[address] [facility] Name Value Range Interpretation Code Description Data Cecy rce(s) Supporting Document(s) URINALYSIS [facility] akanksha URINALYSIS SOURCE R [facility] COLOR yellow NORMAL: Yellow [facility] CLARITY clear NORMAL: Clear [facility] Specific gravity of Urine by Test strip 1.010 1.001 - 1.030 [facility] pH 6 5 - 9 [facility] Gl[facility] [Mass/volume] in Urine by Test strip NORM NORMAL: Negat delia [facility] Bilirubin.total [Presence] in Urine by Test strip NEG NORMAL: Negative [facility] Ketones [Presence] in Urine by Test strip NEG NORMAL: Negative [facility] Protein [Mass/volume] in Urine by Test strip NEG NORMAL: Negat delia [facility] Nitrite [Presence] in Urine by Test strip NEG NORMAL: Negative [facility] BLOOD NEG NORMAL: Negative [facility] Leukocyte esterase [Presence] in Urine by Test strip NEG TRENTON L: Negative [facility] Urobilinogen [Mass/volume] in Urine by Test strip NOR less alida n 1.0 mg/dL [facility] MICROSCOPIC Not Indicate [facility] ospital ID Date Data Source [id number] 11/07/2019 08:51:00 [place] [address] RESPIRATORY CARE REPORT ==== ---------NAME------- NUMBER SEX AGE ADMIT DISC. XRAY# F/C JULIAN Navarro [id number] 11/06/19 11/06/19 [id number] XBE E/R DATE OF : 1990 M/R# [id number] #: [id number] TR-07 LOCATION: EMERGENCY DEPT EKG [id number] COMP LETE:11/07/19 03:07 [place] [id number] PHYSICIAN: SOLEDAD HUGGINS CH Name Value Range Interpretation Code Description Data Cecy rce(s) Supporting Document(s) ID Date Data Source [id number] 11/07/2019 04:06:00 [place] [address] PHONE: [phone] FAX: [phone] Name .................. : BENJAMÍN Navarro Acct Number.................. : [id number] ROOM. ................. : TR-07 MR Number ................... : [id number] Stay type ............. : E/R Discharge Date......... ... : 11/06/19 Admit Date ......... : 11/06/19 Admit Phys .................... : AMERNATH L Date of ....... : 1990 Family Phys ................... : NON STAFF Phone .................. : [phone] Age ................................ : 29 Film# .................. .:[id number] Sex ................................. : M Unsigned transcriptions are preliminary reports and do not represent a medical or legal document CHEST 2 VIEWS [id number] COMPLETE:11/06/19 14:30 KBO [id number] Reason(s): transient lightheadedness; resolved CHEST X-RAY: 2- VIEWS INDICATION: Transient lightheadedness, which has now resolved. FINDINGS: The cardiac and mediastinal silhouettes appear normal and the lungs are clear. The bones and soft tissues are normal. The upper abdomen is unremarkable. IMPRESSION: No acute disease identifiable. Electronically Reviewed and Signed By Kevin Ponce M.D. , 11/07/19 16:06, [facility] Transcribe Initials: FIORELLA , Transcribe Date: 11/06/19 18:06, Dictation Date: Copy for: PARVEEN GALLAGHER via fax Copy for: EMERGENCY DEPT via modem Copy for: 710 MED REC DISCHARGED Page 1 of 1 Name Value Range Interpretation Code Description Data Cecy rce(s) Supporting Document(s) ID Date Data Source [id number] 11/06/2019 10:57:00 AM EST [facility] 1 OrderSheet [facility] Emergency Department [address] [place] [address] Phone #: ext- [phone] 11/06/2019 10:53 Patient: CAMILO BUTTS Sex: M : 1990 Age: 29yWEIGHT:87.2 kg (M) HEIGHT:69 inches (E) BMI:28.4ALLERGIES: No Known Drug AllergyLAB ORDERSOrder Description Priority Entered Acknowledged InitialedCBC w Diff STAT 11:22 11/06/2019 11:28 [place] Francisco J Huggins mixer blender, Cornelio BENNETT P.A.-C; [id number] STAT 11:22 11/06/2019 11:28 [place] Francisco J Huggins mixer blender, Cornelio BENNETT P.A.-C; [id number] (Clean STAT 11:22 11/06/2019 11:28 [facility]) Francisco J Huggins mixer blenderCornelio P.A.-C; [id number] Nasal A B STAT 11:22 11/06/2019 11:50 January Francisco J SifuentesN. P.A.-C;HIV RNA Quant STAT 11:22 11/06/2019 11:43 [place] Francisco J Huggins mixer blender, Cornelio BENNETT P.A.-C; Tech1 NOTES: ER HIV [...] 11:33 Neida Strickland R.N., P.A.-C; 2 OrderSheet [facility] Emergency Department [address] [place] [address] Phone #: [phone]- [phone] 11/06/2019 10:53 Patient: CAMILO BUTTS Sex: M : 1990 Age: 29ySaline Lock 11:11/06/2019 Cancelled: Patient Refusal 11:50 Francisco J Strickland R.N.;EKG 11:11/06/2019 Ack'd: 11:30 11:43 Ruthann Huggins [place] mixer blender, mixer blender, Cornelio BENNETT P.A.-C; Cornelio BENNETT Tech1 Tech1[Electronically signed by Neida Strickland R.N. (:11/06/2019)][Electronically signed by Francisco J Huggins P.A.-C (01:28 11/07/2019)][Electronically locked by Neida Strickland R.N. (13:11/06/2019)] Name Value Range Interpretation Code Description Data Cecy rce(s) Supporting Document(s) ID Date Data Source [id number] 11/06/2019 10:57:00 AM EST [facility] 1 Medication Reconciliation Report [facility] Emergency Department [address] [place] [address] Phone #: ext- [phone] 11/06/2019 10:53 Patient: [...] Value Range Interpretation Code Description Data [facility] Document(s) ID Date Data Source [id number] 11/06/2019 10:57:00 AM EST [facility] 1 Medication Administration Record [facility] Emergency Department [address] [place] [address] Phone #: ext- [phone] 10:53 Patient: CAMILO BUTTS Sex: M : 1990 Age: 29yWeight: 87.2 kgHeight/Length: 69 inBMI: 28.4ALLERGIES: No Known Drug AllergyDate/Time Medication Administered Medication Ordered Name Value Range Interpretation Code Description Data [facility] Supporting Document(s) ID Date Data Source [id number] 11/06/2019 10:57:[address] [facility] 1 General Instructions [facility] Emergency Department [address] [place] [address] Phone #: ext- [phone] 11/06/2019 10:53 Patient: [...] rce(s) Supporting Document(s) ID Date Data Source [id number] 11/06/2019 10:57:00 AM EST [facility] 1 Clinical Report - Nurses [facility] Emergency Department [address] [place] [address] Phone #: [phone] 11/06/2019 10:53 Patient: CAMILO BUTTS Sex: M [...] of CRE. 2 Clinical Report - Nurses [facility] Emergency Department [address] [place] [address] Phone #: ext- [phone] 11/06/2019 10:53 Patient: CAMLIO BUTTS [facility]#: [id number] Sex: M : 1990 Age: 29y SELF [...] and shown to the PA. --11:43 11/06/19 [place] mixer blenderCornelio ER Tech1 11:40 11/06/19. Patient ID band checked for patient name and birthdate: patient confirmed. Flu swab obtained by RN via nasal swab. Labeled in the presence of the patient and sent to lab. --11:50 11/06/19 Neida Strickland R.N. 3 Clinical Report - Nurses [facility] Emergency Department [address] [place] [address] Phone #: [phone] 11/06/2019 10:53 Patient: CAMILO BUTTS Sex: M : 1990 Age: 29y 11:45 11/06/19. ( blood drawn by lab animal technician.). --11:51 11/06/19 Neida Strickland R.N. ( RN [...] F. Pain level now 0/10. --13:00 11/06/19 [place] mixer blender, Cornelio, ER Tech1 Condition at departure: improved and stable. No learning barriers present. Discharge instructions provided and reviewed with the patient. Patient verbalized understanding. Written instructions provided in [place]. The patient was discharged by the physician assistant dean. He was discharged home. He left ambulatory and via taxi. 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 --13:11/06/19 Neida Strickland R.N.Locked/Released at 11/06/2019 13:03 by Neida Strickland R.N. Name Value Range Interpretation Code Description Data Cecy rce(s) Supporting Document(s) ID Date Data Source [id number] 11/06/2019 10:57:00 AM EST [facility] 1 Clinical Report - Physicians/Mid Levels [facility] Emergency Department [address] [place] [address] Phone #: [phone] 11/06/2019 10:53 Patient: [...] HISTORYSee nurses notes. Seizures. Problems: Insomnia [Chronic]. [place] disorder. Lifestyle / Substance Problems. Neurological Disease. Bipolar Disorder. ADHD - Attention Deficit Hyperactivity Disorder. Other Disease. Seizure Disorder. Tendonitis. Tension-Type Headache. Obsessive Compulsive Disorder. Ocd. Paranoid schizophrenia. Tbi. 2 Clinical Report - Physicians/Mid Levels [facility] Emergency Department [address] [place] [address] Phone #: [phone] 11/06/2019 10:53 Patient: [...] normal. 3 Clinical Report - Physicians/Mid Levels [facility] Emergency Department [address] [place] [address] Phone #: ext- [phone] 11/06/2019 10:53 Patient: [...] 70-79yrs 4 Clinical Report - Physicians/Mid Levels [facility] Emergency Department [address] [place] [address] Phone #: [phone]- [phone] 11/06/2019 10:53 Patient: CAMILO BUTTS Sex: M : 1990 Age: 29y >42 mL/min Normal 80 and above >35 mL/min Normal Female GFR Interpretation 20-39 yrs >60 mL/min Normal 40-49 yrs >58 mL/min Normal 50-59 yrs >51 mL/min Normal 60-69 yrs >45 mL/min Normal 70-79 yrs >39 mL/min Normal 80 and above >32 mL/min Normal Urinalysis: ([facility]ULU: 11/06/2019 11:18) ( [facility] 11/06/2019 11:55) Final results Test Result Flag [...] Nasal A B: (LULU: 11/06/2019 11:35) ( [facility] 11/06/2019 12:11) Final results Test Result Flag [...] HIV RNA Quant: (LULU: 11/06/2019 11:22) ( [facility] 11/06/2019 11:30) Canceled CMTS: ER HIV [...] results. 5 Clinical Report - Physicians/Mid Levels [facility] Emergency Department [address] [place] [address] Phone #: [phone] 11/06/2019 10:53 Patient: CAMILO BUTTS Sex: M [...] patient. 6 Clinical Report - Physicians/Mid Levels [facility] Emergency Department [address] [place] [address] Phone #: [phone] 11/06/2019 10:53 Patient: CAMILO BUTTS Sex: M : 1990 Age: 29y(Electronically signed by Francisco J Huggins P.A.-C 11/07/2019 01:28) Name Value Range Interpretation Code Description Data Cecy rce(s) Supporting Document(s) ID Date Data Source [id number] 11/07/2019 10:12:[address] [facility] Name Value Range Interpretation Code Description Data Cecy rce(s) Supporting Document(s) HIV 1+2 Ab+HIV1 p24 Ag [Presence] in Serum or Plasma b y Immunoassay Non Reactive Non Reactive [facility] ID Date Data Source [id number] 11/06/2019 12:10:[address] [facility] Name Value Range Interpretation Code Description Data Cecy rce(s) Supporting Document(s) COMPREHENSIVE METABOLIC PANEL [facility] COMPREHENSIVE METABOLIC PANEL Sodium [Moles/volume] in Serum or Plasma 141 mEq/L 134 - 153 [facility] Potassium [Moles/volume] in Serum or Plasma 4.0 mEq/L 3.6 - 5.0 [facility] Chloride [Moles/volume] in Serum or Plasma 105 mEq/L 98 - 107 [facility] Carbon dioxide, total [Moles/volume] in Serum or Plasma 26 MEQ/L 22 - 30 [facility] Glucose [Mass/volume] in Serum or Plasma 98 MG/DL 65 - 110 [facility] BUN 17 MG/DL 7 - 21 [facility] Creatinine [Mass/volume] in Serum or Plasma 0.7 MG/DL 0.7 - 1.5 [facility] BUN/CREAT 24 8 - 27 [facility] Protein [Mass/volume] in Serum or Plasma 6.7 G/DL 6.3 - 8.2 [facility] Albumin [Mass/volume] in Serum or Plasma 4.3 G/DL 3.9 - 5.0 [facility] Globulin [Mass/volume] in Serum by calculation 2.4 GM/DL 2.4 - 3.2 [facility] A/G RATIO 1.8 0.8 - 2.0 [facility] Calcium [Mass/volume] in Serum or Plasma 9.5 MG/DL 8.4 - 10.2 [facility] Bilirubin.total [Mass/volume] in Serum or Plasma 0.8 MG/DL 0.2 - 1.3 [facility] Alkaline phosphatase [Enzymatic activity/volume] in Serum or Plasma 107 U/L 38 - 126 [facility] Aspartate aminotransferase [Enzymatic activity/volume] in Serum or Plasma 18 U/L 5 - 40 [facility] Alanine aminotransferase [Enzymatic activity/volume] in Seru m or Plasma 24 U/L 7 - 56 [facility] Anion gap 3 in Serum or Plasma 10.0 mmol/L 8.0 - 16.0 [facility] AGE 29 yrs [facility] NON-AA GFR >60 mL/min [facility] ital AFR AMER GFR >60 mL/min [facility] Male GFR In terprentation [...] >32 mL/min Normal ID Date Data Source [id number] 11/06/2019 11:57:00 AM EST [facility] Name Value Range Interpretation Code Description Data Cecy rce(s) Supporting Document(s) CBC W/AUTOMATED DIFF [facility] COMPLETE BLOOD COUNT Leukocytes [#/volume] in Blood by Automated count 6.8 10^3/uL 4.2 - 1 1.0 [facility] Erythrocytes [#/volume] in Blood by Automated count 5.42 10^6/uL 4. 50 - 6.30 [facility] Hemoglobin [Mass/volume] in Blood 16.1 g/dL 14.0 - 16.0 H [facility] Hematocrit [Volume Fraction] of Blood by Automated count 47.4 % 4 1.0 - 51.0 [facility] Erythrocyte mean corpuscular volume [Entitic volume] by Auto mated count 87.5 fL 80.0 - 94.0 [facility] Erythrocyte mean corpuscular hemoglobin [Entitic mass] by Automated count 29.7 pg 27.0 - 34.0 [facility] Erythrocyte mean corpuscular hemoglobin concentration [Mass/volume] by Automated count 34.0 g/dL 31.0 - 36.0 [facility] Erythrocyte distribution width [Ratio] by Automated count 12.4 % 11.5 - 14.8 [facility] Platelets [#/volume] in Blood by Automated count 237 10^3/uL 150 - 45 0 [facility] Platelet mean volume [Entitic volume] in Blood by Automated count 9.5 fL 7.4 - 10.4 [facility] Neutrophils/100 leukocytes in Blood by Automated count 69.2 % 37. 0 - 80.0 [facility] Lymphocytes/100 leukocytes in Blood by Manual count 20.1 % 25.0 - 40.0 L [facility] Monocytes/100 leukocytes in Blood by Automated count 7.3 % 3.0 - 8.0 [facility] Eosinophils/100 leukocytes in Blood by Automated count 2.2 % 0.0 - 7.0 [facility] Basophils/100 leukocytes in Blood by Automated count 0.6 % 0.0 - 2.0 [facility] %IG 0.6 % 0.0 - 0.0 H [facility] al %NRBC 0.0 % 0.0 - 0.0 [facility] Neutrophils [#/volume] in Blood by Automated count 4.73 10^3/uL 2.00 - 6.90 [facility] Lymphocytes [#/volume] in Blood by Automated count 1.37 10^3/uL 0.60 - 3.40 [facility] Monocytes [#/volume] in Blood by Automated count 0.50 10^3/uL 0.00 - 0.90 [facility] Eosinophils [#/volume] in Blood by Automated count 0.15 10^3/uL 0.00 - 0.70 [facility] Basophils [#/volume] in Blood by Automated count 0.04 10^3/uL 0.00 - 0.20 [facility] #IG 0.04 10^3/uL 0.00 - 0.10 [facility] #NRBC 0.00 10^3/uL 0.00 - 0.00 [facility] MANUAL DIFF NOT INDICATED [facility] RBC MORPH NOT INDICATED [facility] spital ID Date Data Source [id number] 11/06/2019 12:11:00 PM EST [facility] Name Value Range Interpretation Code Description Data Cecy rce(s) Supporting Document(s) Influenza virus A Ag [Presence] in Nasopharynx by Immunoassa y NEGATIVE NORMAL: NEGATIVE [facility] Influenza virus B Ag [Presence] in Nasopharynx by Immunoassa y NEGATIVE NORMAL: NEGATIVE [facility] NEGATIVENEGATIVE PROCEDURAL CO NTROL VALID [...] other patient managementdecisions. ID Date Data Source [id number] 11/06/2019 11:55:00 AM EST [facility] Name Value Range Interpretation Code Description Data Cecy rce(s) Supporting Document(s) [facility] COL[facility] yellow NORMAL: Yellow [facility] CLARITY clear NORMAL: Clear [facility] Specific gravity of Urine by Test strip 1.020 1.001 - 1.030 [facility] pH 7 5 - 9 [facility] al Glucose [Mass/volume] in Urine by Test strip NORM NORMAL: Negat [facility] Bilirubin.total [Presence] in Urine by Test strip NEG NORMAL: Negative [facility] Ketones [Presence] in Urine by Test strip NEG NORMAL: Negative [facility] Protein [Mass/volume] in Urine by Test strip NEG NORMAL: Negat [facility] Nitrite [Presence] in Urine by Test strip NEG NORMAL: Negative [facility] BLOOD NEG NORMAL: Negative [facility] Leukocyte esterase [Presence] in Urine by Test strip NEG [place] L: Negative [facility] Urobilinogen [Mass/volume] in Urine by Test strip 4 less alida n 1.0 mg/dL [facility] MICROSCOPIC Not Indicate [facility] Procedure Social History Code Duration Value Status Description Data Source(s ) Smoking 11/17/2020 12:00:00 AM EST Smoker, current status unkn own completed Smoker, current status unknown [facility]) Smoking 11/02/2020 12:00:00 AM EST Smoker, current status unkn own completed Smoker, current status unknown [facility] ([facility]) Smoking 10/20/2020 12:00:00 AM EST Smoker, current status unkn own completed Smoker, current status unknown [facility] ([facility]) Smoking 09/24/2020 12:00:00 AM EST Smoker, current status unkn own completed Smoker, current status unknown [facility] ([facility]) Smoking 09/02/2020 12:00:00 AM EST Smoker, current status unkn own completed Smoker, current status unknown [facility] ([facility]) Smoking 08/19/2020 12:00:00 AM EDT Smoker, current status unkn own completed Smoker, current status unknown [facility] ([facility]) Smoking 08/18/2020 12:00:00 AM EDT Smoker, current status unkn own completed Smoker, current status unknown [facility] ([facility]) Smoking 07/29/2020 12:00:00 AM EDT Smoker, current status unkn own completed Smoker, current status unknown [facility] ([facility]) Smoking 07/22/2020 12:00:00 AM EDT Smoker, current status unkn own completed Smoker, current status unknown [facility] ([facility]) Smoking 07/10/2020 12:00:00 AM EDT Smoker, current status unkn own completed Smoker, current status unknown [facility] ([facility]) Smoking 04/13/2020 12:00:00 AM EDT Smoker, current status unkn own completed Smoker, current status unknown [facility] ([facility]) Smoking 02/24/2020 12:00:00 AM EDT Smoker, current status unkn own completed Smoker, current status unknown [facility] ([facility]) Smoking 02/19/2020 12:00:00 AM EDT Smoker, current status unkn own completed Smoker, current status unknown [facility] ([facility]) Smoking 01/28/2020 12:00:00 AM EDT Smoker, current status unkn own completed Smoker, current status unknown [facility] ([facility]) Smoking 01/10/2020 12:00:00 AM EDT Smoker, current status unkn own completed Smoker, current status unknown [facility] ([facility]) Smoking 12/26/2019 12:00:00 AM EST Smoker, current status unkn own completed Smoker, current status unknown [facility] ([facility]) Smoking 12/09/2019 12:00:00 AM EST Smoker, current status unkn own completed Smoker, current status unknown [facility] ([facility]) Smoking 10/21/2019 12:00:00 AM EST Smoker, current status unkn own completed Smoker, current status unknown [facility] ([facility]) Smoking 10/07/2019 12:00:00 AM EST Smoker, current status unkn own completed Smoker, current status unknown [facility] ([facility])
[2020-11-18 15:32] VITALS: BP 121/79
== END 2020-11-18 15:49 | disposition home or self-care (01) ==
LOC: M ED 13:34
DX: F10.10 Alcohol abuse, uncomplicated (principal); F31.9 Bipolar disorder, unspecified; F90.9 Attention-deficit hyperactivity disorder, unspecified type; F42.9 Obsessive-compulsive disorder, unspecified; G47.00 Insomnia, unspecified; Z79.899 Other long term (current) drug therapy; Z88.1 Allergy status to other antibiotic agents

== ENCOUNTER 2020-12-09 17:42 | Emergency (ER) | payer MEDICAID ==
[~2020-12-09] VITALS: Ht 175.3 cm; Wt 89.1 kg
--- OUTSIDE RECORDS SUMMARY | 2020-12-09 17:49 | CCD ---
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 ................. : TR-07 MR Number ................... : [id number] Stay type ............. : E/R Discharge Date......... ... : Admit Date ......... : 05/02/20 Admit Phys .................... : SAQIB PA Date of ....... : 1990 Family Phys ................... : NON STAFF Phone .................. : [phone] Age ................................ : 29 Film# .................. .:[id number] Sex ................................. : M Unsigned transcriptions are preliminary reports and do not represent a medical or legal document CT HEAD W/O CONTRAST [id number] COMPLETE:05/02/20 11:52 KBO 70181 Reason(s): Head Pain CT OF THE HEAD [...] rce(s) Supporting Document(s) ID Date Data Source [id number] 05/04/2020 10:53:00 [place] [address] PHONE: [phone] FAX: [phone] Name .................. : BENJAMÍN Navarro Acct Number.................. : [id number] ROOM. ................. : TR-07 MR Number ................... : [id number] Stay type ............. : E/R Discharge Date......... ... : Admit Date ......... : 05/02/20 Admit Phys .................... : SAQIB GRUBBS Date of ....... : 1990 Family Phys ................... : NON STAFF Phone .................. : [phone] Age ................................ : 29 Film# .................. .:[id number] Sex ................................. : M Unsigned transcriptions are preliminary reports and do not represent a medical or legal document CHEST PORTABLE [id number] COMPLETE:05/02/20 11:52 KBO 56650 Reason(s): seizure PORTABLE CHEST X-RAY: COMPARISON: 11/06/19 [...] rce(s) Supporting Document(s) ID Date Data Source [id number] 05/03/2020 01:07:00 PM EDT [facility] [address] [facility] [place] [address] RESPIRATORY CARE REPORT ==== ---------NAME------- NUMBER SEX AGE ADMIT DISC. XRAY# F/C JULIAN Navarro [id number] M 29 05/02/20 05/02/20 [id number] XBE E/R DATE OF : 1990 M/R# [id number] #: [id number] TR-07 LOCATION: EMERGENCY DEPT EKG [id number] COMPLE TE:05/02/20 14:49 [place] [id number] PHYSICIAN: SAQIB SAINI CH Name Value Range Interpretation Code Description Data Cecy rce(s) Supporting Document(s) ID Date Data Source [id number] 05/02/2020 10:49:00 AM EDT [facility] 1 OrderSheet [facility] Emergency Department [address] [place] [address] Phone #: ext- [phone] 05/02/2020 10:49 Patient: [...] RN P.A.-C;Depakene (Valproic STAT 11:06 05/02/2020 11:07 Hernandez Thomasid) Francisco J Saini RN P.A.-C;Salicylate Level STAT 11:06 05/02/2020 11:07 Angeles Thomas RN P.A.-C;DIAGNOSTIC STUDY ORDERSOrder Description Priority Entered Acknowledged InitialedCT Head W/O Cont STAT 11:06 05/02/2020 11:14 Freddy 2 OrderSheet [facility] Emergency Department [address] [place] [address] Phone #: ext- [phone] 05/02/2020 10:49 Patient: CAMILO BUTTS Sex: M : 1990 Age: 29y(Oxygen?(No)) Francisco J Blanchard RN P.A.-C; NOTES: Seizure Reason for Study: Head PainChest 1 View STAT 11:06 05/02/2020 Initialed: 11:12 Francisco J Cr(Oxygen?(No)) Francisco J Saini Cancelled: Other 11:12 Francisco J Ivory; Parveen Cr Reason for Study: CoughChest Portable 1 [...] 05/02/2020 11:14 TerryMonitor Francisco J Blanchard RN P.A.-C;Dough Cutting Machine Operator 11:11 05/02/2020 11:14 Freddy(continuous) Francisco J Blanchard RN P.A.-C;NPO 11:11 05/02/2020 11:14 Freddy 3 OrderSheet [facility] Emergency Department [address] [place] [address] Phone #: ext- [phone] 05/02/2020 10:49 Patient: CAMILO BUTTS Sex: M : 1990 Age: 29y Francisco J Blanchard RN P.A.-C;Ntfy if Abnml Vitals 11:11 05/02/2020 11:14 Freddy Blanchard RN P.A.-C;Pulse oximeter 11:11 05/02/2020 11:14 Freddy(Continuous) Francisco J Blanchard RN P.A.-C;Seizure 11:11 05/02/2020 11:14 TerryPrecautions Francisco J Blanchard RN P.A.-C;Vitals 11:11 05/02/2020 11:14 Freddy Blanchard RN, P.A.-C;[Electronically signed by Freddy Blanchard RN (16:59 05/02/2020)][Electronically signed by Francisco J Saini P.A.-C (10:57 05/03/2020)][Electronically locked by Freddy Blanchard RN (16:59 05/02/2020)] Name Value Range Interpretation Code Description Data Cecy rce(s) Supporting Document(s) ID Date Data Source [id number] 05/02/2020 10:49:00 AM EDT [place] [address] Medication Reconciliation Report [facility] Emergency Department [address] [place] [address] Phone #: ext- [phone] 05/02/2020 10:49 Patient: [...] rce(s) Supporting Document(s) ID Date Data Source [id number] 05/02/2020 10:49:00 AM EDT [facility] 1 Medication Administration Record [facility] Emergency Department [address] [place] [address] Phone #: ext- [phone] 05/02/2020 10:49 Patient: [...] rce(s) Supporting Document(s) ID Date Data Source [id number] 05/02/2020 10:49:00 AM EDT [facility] 1 General Instructions [facility] Emergency Department [address] [place] [address] Phone #: [phone]- [phone] 05/02/2020 10:49 Patient: CAMILO BUTTS Sex: M [...] discharge instructions verbalized by patient.Follow-up with: [facility], , [id number], [address] [place] [address], [address] Follow up. Call for the next available [...] change to another medicine. 2 General Instructions [facility] Emergency Department [address] [place] [address] Phone #: ext- [phone] 05/02/2020 10:49 Patient: [...] and/or another type of 3 General Instructions [facility] Emergency Department [address] [place] [address] Phone #: ext- [phone] 05/02/2020 10:49 Patient: [...] Headache that gets worse 4 General Instructions [facility] Emergency Department [address] [place] [address] Phone #: ext- [phone] 05/02/2020 10:49 Patient: CAMILO BUTTS Sex: M : 1990 Age: 29y [id number] [employer]. [address] [place] [address]. All rights reserved. This information is not intended as asubstitute for professional medical care. Always follow your healthcare professional's instructions. You have been given the following additional information: Seizure, Recurrent (Adult) No driving or operating machinery until released.(Electronically signed by Francisco J Saini P.A.-C 05/03/2020 10:57) Name Value Range Interpretation Code Description Data Cecy rce(s) Supporting Document(s) ID Date Data Source [id number] 05/02/2020 10:49:00 AM EDT [facility] 1 Clinical Report - Nurses [facility] Emergency Department [address] [place] [address] Phone #: ext- [phone] 05/02/2020 10:49 Patient: [...] trauma. Did not miss recentdose of anticonvulsant.Treatment PIN INSERTER:None.SEPSIS SCREEN: SIRS Screen negative. Sepsis Screen negative. [...] Known Drug Allergy. --10:56 05/02/20 Freddy Blanchard RN.Emsvqbp71:59 05/02/20.PAST MEDICAL HX: Seizures. No history of [...] no deficiencies. 2 Clinical Report - Nurses [facility] Emergency Department [address] [place] [address] Phone #: ext- [phone] 05/02/2020 10:49 Patient: [...] To room. --10:59 05/02/20 Freddy Blanchard RN.PHYSICAL [id number]:05/02/20. To room via stretcher.GENERAL / NEURO / [...] 11:05/02/20. Cardiac rhythm: normal sinus rhythm; (1050). residential monitor, NIBP monitor and pulse oximeter placed on patient; bus monitor- Lead II; monitor alarms on; monitor [...] at 75 3 Clinical Report - Nurses [facility] Emergency Department [address] [place] [address] Phone #: ext- [phone] 05/02/2020 10:49 Patient: CAMILO BUTTS A cct#: [id number] Sex: M : 1990 Age: 29ymL/hr over [...] to the PA (1120). [facility] transported [facility] with nurse and broadcast operations technician. (1130). Patient returned from CT by stretcher with nurse andradiology tech. (1135). --11:44 05/02/20 Donovan Pretty precautions maintained: side rails up x2 and padded, suction and O2 at bedside, patient in view of[employer]'s station and call abbasi in reach (1050). [...] Specimen labeled in the presenceof the patient (9755). --12:34 05/02/20 Freddy Blanchard RN12:44 05/02/2020 Tylenol [...] Blanchard RN 4 Clinical Report - Nurses [facility] Emergency Department [address] [place] [address] Phone #: ext- [phone] 05/02/2020 10:49 Patient: CAMILO BUTTS [facility]#: [id number] Sex: M : 1990 Age: 29y 13:34 05/02/2020 Tylenol PO Response: pain is improving. Symptoms have improved the patient feels better. Physician dam tender assistant notified. --13:34 05/02/20 Freddy Blanchard RN 13:34 05/02/2020 Ativan PO Response: pain is improving. Symptoms have improved the patient feels better. Physician dam tender assistant notified. --13:34 05/02/20 Freddy Blanchard RN [...] parent verbalized understanding. Written instructions provided in Mauritanian. The patient was discharged by the physician dam tender assistant. He was discharged home and accompanied by parent. He left ambulatory and via private vehicle. Parent driving. --13:57 05/02/20 Freddy Blanchard RN 13:45 05/02/2020 Site #1 removed upon discharge. Catheter intact. Bandaid applied. --13:58 05/02/20 Freddy Blanchard RN.Locked/Released at 05/02/2020 16:59 by Freddy Blanchard RN Name Value Range Interpretation Code Description Data Cecy rce(s) Supporting Document(s) ID Date Data Source [id number] 05/02/2020 10:49:00 AM EDT [facility] 1 Clinical Report - Physicians/Mid Levels [facility] Emergency Department [address] [place] [address] Phone #: ext- [phone] 05/02/2020 10:49 Patient: CAMILO BUTTS Sex: M [...] tumor. See old chart. Problems: Insomnia [Chronic]. Arroyo disorder. Lifestyle / Substance Problems. Neurological Disease. Bipolar Disorder. Obsessive Compulsive Disorder. ADHD - Attention Deficit Hyperactivity Disorder. Seizure. Tendonitis. STD - Sexually Transmitted Disease. 2 Clinical Report - Physicians/Mid Levels [facility] Emergency Department [address] [place] [address] Phone #: ext- [phone] 05/02/2020 10:49 Patient: CAMILO BUTTS Sex: M [...] tibial 2+. 3 Clinical Report - Physicians/Mid [facility] Emergency Department [address] [place] [address] Phone #: ext- [phone] 05/02/2020 10:49 Patient: [...] O2? Oxygen?(No) Room: ED Exam CHEST PORTABLE [facility] [address] [place] [address] PHONE: [phone] FAX: [phone] Name .................. : BENJAMÍN Navarro Acct Number.................. : [id number] [facility]... : [id number] Stay type ............. : E/R Discharge Date......... ... : Admit Date ......... : 05/02/20 Admit Phys .................... : SAQIB GRUBBS Date of ....... : 1990 Family Phys ................... : NON STAFF Phone .................. : [phone] Age ................................ : 29 Film# .................. .:[id number] Sex ................................. : M Unsigned transcriptions are preliminary reports and do not represent a medical or legal document CHEST PORTABLE [id number] COMPLETE:05/02/20 11:52 KBO 18307 Reason(s): seizure 4 Clinical Report - Physicians/Mid Levels [facility] Emergency Department [address] [place] [address] Phone #: ext- [phone] 05/02/2020 10:49 Patient: [...] NONE BACTERIA Trace (NORMAL: NONEDrug Screen- Urine: (LLUU: 05/02/2020 12:30) ( TxgRcvd 05/02/2020 12:52) Final results Test Result Flag Units (Reference) DRUG SCREEN URINE URINE DRUG SCREEN AMPHETAMINES NEGATIVE (NORMAL: NEGAT 5 Clinical Report - Physicians/[facility] Emergency Department [address] [place] [address] Phone #: ext- [phone] 05/02/2020 10:49 Patient: [...] PERFORMED AT [facility].CMP: (LULU: 05/02/2020 11:13) ( MsgRcvd 05/02/2020 11:44) [...] Male GFR Interprentation 20-49 yrs >60 mL/min Bwvfiz63-91 yrs >56 mL/min Normal 60-69 yrs >49 mL/min Normal 70-79yrs>42 mL/min Normal 80 and above >35 mL/min Normal Female GFRInterpretation 20-39 yrs >60 mL/min Normal 40-49 yrs >58 mL/minNormal 50-59 yrs >51 mL/min Normal 60-69 yrs >45 mL/min Eikqbp60-43 yrs >39 mL/min Normal 80 and above [...] 34.0) 6 Clinical Report - Physicians/Mid Levels [facility] Emergency Department [address] [place] [address] Phone #: ext- [phone] 05/02/2020 10:49 Patient: CAMILO BUTTS Sex: M [...] MORPH NOT INDICATEDCPK: (LULU: 05/02/2020 11:13) ( MsgRcvd 05/02/2020 11:44) Final results Test Result Flag Units (Reference) CPK 204 H U/L (30 - 170)Acetaminophen Level: (LULU: 05/02/2020 11:13) ( MsgRcvd 05/02/2020 11:41) Final results Test Result Flag Units (Reference) ACETAMINOPHEN <5.0 UG/ML (0.0 - 30.0)Salicylate Level: (LULU: 05/02/2020 11:13) ( MsgRcvd 05/02/2020 11:44) Final results Test Result Flag Units (Reference) SALICYLATE <0.3 L mg/dL (2.0 - 20.0)CT Head W/O Cont: (LULU: 05/02/2020 11:06) ( TxgRcvd 05/02/2020 12:26) In ProgressCT HEAD W/O CONTRASTReason(s): Head PainTRANSPORTATION: WC IV? O2? Oxygen?(No) Room: ED CMTS: Seizure Exam CT HEAD W/O CONTRAST [facility] [address] [place] [address] PHONE: [phone] FAX: [phone] Name .................. : BENJAMÍN VYASUA Ramon Acct Number.................. : [id number] ROOM. ................. : TR-07 MR Number ................... : [id number] Stay type ............. : E/R Discharge Date......... ... : Admit Date ......... : 05/02/20 Admit Phys .................... : SAQIB GRUBBS Date of ....... : 1990 Family Phys ................... : NON STAFF Phone .................. : [phone] Age ................................ : 29 Film# .................. .:[id number] Sex ................................. : M Unsigned transcriptions are preliminary reports and do not represent a medical or legal document CT HEAD W/O CONTRAST [id number] COMPLETE:05/02/20 11:52 KBO 74069 Reason(s): Head Pain 7 Clinical Report - Physicians/Mid Levels [facility] Emergency Department [address] [place] [address] Phone #: ext- [phone] 05/02/2020 10:49 Patient: [...] Reviewed and Signed By DCTNAME , SIGNDATE, GRACE Transcribe Initials: FIORELLA , Transcribe Date: 05/02/20 [...] a 8 Clinical Report - Physicians/Mid Levels [facility] Emergency Department [address] [place] [address] Phone #: ext- [phone] 05/02/2020 10:49 Patient: CAMILO BUTTS Sex: M [...] cause, 9 Clinical Report - Physicians/Mid Levels [facility] Emergency Department [address] [place] [address] Phone #: ext- [phone] 05/02/2020 10:49 Patient: CAMILO BUTTS Sex: M [...] instructions verbalized by patient. Follow-up with: NEUROLOGY [facility], , [id number], [address] [place], [address] Follow up. Call for the next available appointment. Reason for referral: evaluation and treatment.(Electronically signed by Francisco J Saini P.A.-C 05/03/2020 10:57) Name Value Range Interpretation Code Description Data Cecy rce(s) Supporting Document(s) ID Date Data Source [id number] 05/02/2020 12:52:00 PM EDT [facility] Name Value Range Interpretation Code Description Data [facility] rce(s) Supporting Document(s) DRUG SCREEN URINE [facility] URINE DRUG SCREEN Amphetamine [Presence] in Urine by Screen method NEGATIVE NORMAL: N EGATIVE [facility] BARBITURATES NEGATIVE NORMAL: NEGATIVE [facility] BENZO NEGATIVE NORMAL: NEGATIVE [facility] COCAINE NEGATIVE NORMAL: NEGATIVE [facility] Tetrahydrocannabinol [Presence] in Urine NEGATIVE NORMAL: NEGATIVE [facility] OPIATES NEGATIVE NORMAL: NEGATIVE [facility] Phencyclidine [Presence] in Urine by Screen method NEGATIVE NOR MAL: NEGATIVE [facility] \\BLDo\\URINE DRUG SCR EEN INTERPRETATION\\BLDx\\ THE CUTOFFF LEVELS FOR DETECTION ARE FOLLOWS: AMPHETAMINES 1000 ng/ml BARBITUARATES 200 ng/ml BENZODIAZEPINES 100 ng/ml THC 50 ng/ml PHENCYCLIDINE 25 ng/ml OPIATES 300 ng/ml COCAINE 300 ng/ml ALL POSITIVES ARE CONSIDERED PRESUMPTIVE POSITIVE CONFIRMATION WILL BE PERFORMED AT PHYSICIAN REQUEST. ID Date Data Source [id number] 05/02/2020 12:52:00 PM EDT [facility] Name Value Range Interpretation Code Description Data Cecy rce(s) Supporting Document(s) URINALYSIS [facility] akanksha URINALYSIS SOURCE R [facility] COLOR yellow NORMAL: Yellow [facility] CLARITY clear NORMAL: Clear [facility] Specific gravity of Urine by Test strip 1.020 1.001 - 1.030 [facility] 6 5 - 9 [facility] Glucose [Mass/volume] in Urine by Test strip NORM NORMAL: Negat [facility] Bilirubin.total [Presence] in Urine by Test strip NEG NORMAL: Negative [facility] Ketones [Presence] in Urine by Test strip NEG NORMAL: Negative [facility] Protein [Mass/volume] in Urine by Test strip 15 NORMAL: Negat [facility] Nitrite [Presence] in Urine by Test strip NEG NORMAL: Negative [facility] BLOOD NEG NORMAL: Negative [facility] Leukocyte esterase [Presence] in Urine by Test strip NEG TR[place]ON L: Negative [facility] Urobilinogen [Mass/volume] in Urine by Test strip NOR less alida n 1.0 mg/dL [facility] MICROSCOPIC See Below [facility] ital WBC 0 - 1 NORMAL: NONE SEEN [facility] Erythrocytes [#/volume] in Urine by Test strip 0 - 1 NORMAL: NON E SEEN [facility] EPITHELIAL FEW NORMAL: NONE SEEN [facility] Bacteria [Presence] in Urine sediment by Light microscopy Tr mela NORMAL: NONE SEEN [facility] ID Date Data Source [id number] 05/06/2020 06:25:00 AM EDT [facility] Name Value Range Interpretation Code Description Data Cecy rce(s) Supporting Document(s) Prolactin [Mass/volume] in Serum or Plasma 12.7 ng/mL 4.0-15.2 [facility] ID Date Data Source [id number] 05/05/2020 08:12:00 AM EDT [facility] Name Value Range Interpretation Code Description Data Cecy rce(s) Supporting Document(s) Valproate [Mass/volume] in Serum or Plasma <4 ug/mL 50-100 L [facility] Verified by repeat analysis Detection Limit = 4 <4 indicates None Detected Toxicity may occur at levels of 100-500. Measurements of free unbound valproic acid may improve the assess- ment of clinical response. ID Date Data Source [id number] 05/02/2020 11:44:00 AM EDT [facility] Name Value Range Interpretation Code Description Data Cecy rce(s) Supporting Document(s) SALICYLATE <0.3 mg/dL 2.0 - 20.0 L [facility] ID Date Data Source [id number] 05/02/2020 11:44:00 AM EDT [facility] Name Value Range Interpretation Code Description Data Cecy rce(s) Supporting Document(s) Creatine kinase [Enzymatic activity/volume] in Serum or Plasma 2 04 U/L 30 - 170 H [facility] ID Date Data Source [id number] 05/02/2020 11:44:00 AM EDT [facility] Name Value Range Interpretation Code Description Data Cecy rce(s) Supporting Document(s) COMPREHENSIVE METABOLIC PANEL [facility] COMPREHENSIVE METABOLIC PANEL Sodium [Moles/volume] in Serum or Plasma 138 mEq/L 134 - 153 [facility] Potassium [Moles/volume] in Serum or Plasma 3.9 mEq/L 3.6 - 5.0 [facility] Chloride [Moles/volume] in Serum or Plasma 105 mEq/L 98 - 107 [facility] Carbon dioxide, total [Moles/volume] in Serum or Plasma 21 MEQ/L 22 - 30 L [facility] Glucose [Mass/volume] in Serum or Plasma 112 MG/DL 65 - 110 H [facility] BUN 10 MG/DL 7 - 21 [facility] Creatinine [Mass/volume] in Serum or Plasma 0.6 MG/DL 0.7 - 1.5 L [facility] BUN/CREAT 17 8 - 27 [facility] Protein [Mass/volume] in Serum or Plasma 6.6 G/DL 6.3 - 8.2 [facility] Albumin [Mass/volume] in Serum or Plasma 4.4 G/DL 3.9 - 5.0 [facility] Globulin [Mass/volume] in Serum by calculation 2.2 GM/DL 2.4 - 3.2 L [facility] A/G RATIO 2.0 0.8 - 2.0 [facility] Calcium [Mass/volume] in Serum or Plasma 8.7 MG/DL 8.4 - 10.2 [facility] Bilirubin.total [Mass/volume] in Serum or Plasma <0.7 MG/DL 0.2 - 1.3 [facility] Alkaline phosphatase [Enzymatic activity/volume] in Serum or Plasma 112 U/L 38 - 126 [facility] Aspartate aminotransferase [Enzymatic activity/volume] in Serum or Plasma 25 U/L 5 - 40 [facility] Alanine aminotransferase [Enzymatic activity/volume] in Seru m or Plasma 28 U/L 7 - 56 [facility] Anion gap 3 in Serum or Plasma 12.0 mmol/L 8.0 - 16.0 [facility] AGE 29 yrs [facility] NON-AA GFR >60 mL/min [facility] AFR AMER GFR >60 mL/min [facility] Male GFR In terprentation [...] >32 mL/min Normal ID Date Data Source [id number] 05/02/2020 11:41:00 AM T [facility] Name Value Range Interpretation Code Description Data Cecy rce(s) Supporting Document(s) Acetaminophen [Presence] in Urine <5.0 UG/ML 0.0 - 30.0 [facility] ID Date Data Source [id number] 05/02/2020 11:40:00 AM EDT [facility] Name Value Range Interpretation Code Description Data Cecy rce(s) Supporting Document(s) CBC W/AUTOMATED DIFF [facility] COMPLETE BLOOD COUNT Leukocytes [#/volume] in Blood by Automated count 6.9 10^3/uL 4.2 - 1 1.0 [facility] Erythrocytes [#/volume] in Blood by Automated count 5.08 10^6/uL 4. 50 - 6.30 [facility] Hemoglobin [Mass/volume] in Blood 15.1 g/dL 14.0 - 16.0 [facility] Hematocrit [Volume Fraction] of Blood by Automated count 44.7 % 4 1.0 - 51.0 [facility] Erythrocyte mean corpuscular volume [Entitic volume] by Auto mated count 88.0 fL 80.0 - 94.0 [facility] Erythrocyte mean corpuscular hemoglobin [Entitic mass] by Automated count 29.7 pg 27.0 - 34.0 [facility] Erythrocyte mean corpuscular hemoglobin concentration [Mass/volume] by Automated count 33.8 g/dL 31.0 - 36.0 [facility] Erythrocyte distribution width [Ratio] by Automated count 12.4 % 11.5 - 14.8 [facility] Platelets [#/volume] in Blood by Automated count 255 10^3/uL 150 - 45 0 [facility] Platelet mean volume [Entitic volume] in Blood by Automated count 9.9 fL 7.4 - 10.4 [facility] Neutrophils/100 leukocytes in Blood by Automated count 74.4 % 37. 0 - 80.0 [facility] Lymphocytes/100 leukocytes in Blood by Manual count 14.6 % 25.0 - 40.0 L [facility] Monocytes/100 leukocytes in Blood by Automated count 7.5 % 3.0 - 8.0 [facility] Eosinophils/100 leukocytes in Blood by Automated count 1.9 % 0.0 - 7.0 [facility] Basophils/100 leukocytes in Blood by Automated count 0.6 % 0.0 - 2.0 [facility] %IG 1.0 % 0.0 - 0.0 [facility] %NRBC 0.0 % 0.0 - 0.0 [facility] al Neutrophils [#/volume] in Blood by Automated count 5.15 10^3/uL 2.00 - 6.90 [facility] Lymphocytes [#/volume] in Blood by Automated count 1.01 10^3/uL 0.60 - 3.40 [facility] Monocytes [#/volume] in Blood by Automated count 0.52 10^3/uL 0.00 - 0.90 [facility] Eosinophils [#/volume] in Blood by Automated count 0.13 10^3/uL 0.00 - 0.70 [facility] Basophils [#/volume] in Blood by Automated count 0.04 10^3/uL 0.00 - 0.20 [facility] #IG 0.07 10^3/uL 0.00 - 0.10 [facility] #NRBC 0.00 10^3/uL 0.00 - 0.00 [facility] MANUAL DIFF NOT INDICATED [facility] RBC MORPH NOT INDICATED [facility] spital ID Date Data Source [id number] 12/11/2019 07:07:00 PM EST [facility] 1 OrderSheet [facility] Emergency Department [address] [place] [address] Phone #: ext- [phone] 12/11/2019 19:05 Patient: CAMILO BUTTS Sex: M : 1990 Age: 29yWEIGHT:88.4 kg (M) HEIGHT:72 inches (S) BMI:26.5ALLERGIES: No Known Drug AllergyDIAGNOSIS: Sexually transmitted infectious diseaseLAB ORDERSOrder Description Priority Entered Acknowledged InitialedUrinalysis (Clean STAT 19:12/11/2019 19:25 Rodrigo Hernandez R.N.;Chlamydia/GC STAT 19:12/11/2019 Ack'd: 19:25 19:29 Rupert Ross Tamra R.N. Jennifer R.N. PA;Syphilis 19:23 12/11/2019 Ack'd: 19:25 19:29 Rupert Ross Tamra R.N. Jennifer R.N. PA;HIV Panel STAT 19:12/11/2019 Ack'd: 19:25 19:29 Rupert Ross Tamra [...] rce(s) Supporting Document(s) ID Date Data Source [id number] 12/11/2019 07:07:[address] [facility] 1 Medication Reconciliation Report [facility] Emergency Department [address] [place] [address] Phone #: ext- [phone] 12/11/2019 19:05 Patient: [...] rce(s) Supporting Document(s) ID Date Data Source [id number] 12/11/2019 07:07:[address] [facility] 1 Medication Administration Record [facility] Emergency Department [address] [place] [address] Phone #: ext- [phone] 19:05 Patient: CAMILO BUTTS Sex: M : 1990 Age: 29yWeight: 88.4 kgHeight/Length: 72 inBMI: 26.5ALLERGIES: No Known Drug AllergyDate/Time Medication Administered Medication Ordered Name Value Range Interpretation Code Description Data Cecy rce(s) Supporting Document(s) ID Date Data Source [id number] 12/11/2019 07:07:00 PM EST [facility] 1 General Instructions [facility] Emergency Department [address] [place] [address] Phone #: ext- [phone] 12/11/2019 19:05 Patient: [...] positive, contact your healthcare provider, local clinic, [facility] department to be treated, or return to our facility. You will be prescribed antibiotic medicine. Be sure to take all of the antibiotic as prescribed until it is gone or you are told to stop. Keep taking it even if you feel better. 2 General Instructions [facility] Emergency Department [address] [place] [address] Phone #: exk- [phone] 12/11/2019 19:05 Patient: CAMILO BUTTS Sex: M [...] up with your provider or the [facility] for complete STI screening, including HIV testing, and to consider ways to prevent HIV.For more information about STIs, call the CDC information line at [phone] or look at the CDCwebsite online.When to seek medical adviceCall your healthcare [...] p ain or scrotal swelling in men 6726-3988 [employer]. [address] [place] [address], [place] [address]. All rights reserved. This information is not intended as asubstitute for professional medical care. Always follow your healthcare professional's instructions. You have been given the following additional information: Testing for Suspected STI 3 General Instructions [facility] Emergency Department [address] [place] [address] Phone #: ext- [phone] 12/11/2019 19:05 Patient: CAMILO BUTTS Sex: M : 1990 Age: 29y(Electronically signed by HUMERA Kan 12/11/2019 21:47) Name Value Range Interpretation Code Description Data Cecy rce(s) Supporting Document(s) ID Date Data Source [id number] 12/11/2019 07:07:[address] [facility] 1 Clinical Report - Nurses [facility] Emergency Department [address] [place] [address] Phone #: vhf- [phone] 12/11/2019 19:05 Patient: CAMILO BUTTS Sex: M : 1990 Age: 29yTRIAGEArrived by private vehicle. Historian: patient. Accompanied by (Dropped off by Medicaid cab).Triage time: 19:05 12/11/2019. Acuity: LEVEL 5.Chief Complaint: (Requests STD testing).Alert.This started today. ( Pt states "i would like to make sure i don't have no diseases". Pt denies anysymptoms;). ( Pt very vague during triage/angry/aggressvie).Treatment PIN INSERTER:None.SEPSIS SCREEN: NEGATIVE. Negative (no infection suspected/documented). (19:10 [...] and oral 2 Clinical Report - Nurses [facility] Department [address] [place] [address] Phone #: ext- [phone] 12/11/2019 19:05 [id number] Sex: M : 1990 Age: 29y consent [...] Hernandez R.N. 3 Clinical Report - Nurses [facility] Emergency Department [address] [place] [address] Phone #: ext- [phone] 12/11/2019 19:05 Patient: CAMILO BUTTS Sex: M : 1990 Age: 29yDISPOSITION / DISCHARGE Departure time: 19:56 12/11/2019. Condition at departure: stable. No learning barriers present. Reviewed warnings. Reviewed medication(s). Treatments reviewed. Reviewed referrals. Patient verbalized understanding. Written instructions provided in Mauritanian. The patient was discharged by the physician dam tender assistant. He was discharged home and unaccompanied [...] rce(s) Supporting Document(s) ID Date Data Source [id number] 12/11/2019 07:07:00 PM EST [facility] 1 Clinical Report - Physicians/Mid Levels [facility] Emergency Department [address] [place] [address] Phone #: ext- [phone] 12/11/2019 19:05 Patient: CAMILO BUTTS Sex: M [...] inspection. 2 Clinical Report - Physicians/Mid Levels [facility] Emergency Department [address] [place] [address] Phone #: ext- [phone] 12/11/2019 19:05 Patient: CAMILO BUTTS Sex: M [...] MICROSCOPIC Not Indicate.PROGRESS AND PROCEDURESCourse of Care: 19:Dec 11 2019. Evaluation after observation. (Pt is [...] Discharged home in good and improved condition (:Dec 11 2019).CLINICAL IMPRESSION Chlamydia; gonorrhea; syphilis; HIV with asymptomatic disease (STD Testing).INSTRUCTIONS 3 Clinical Report - Physicians/Mid Levels [facility] Emergency Department [address] [place] [address] Phone #: ext- [phone] 12/11/2019 19:05 Patient: [...] rce(s) Supporting Document(s) ID Date Data Source [id number] 12/13/2019 08:10:[address] [facility] Name Value Range Interpretation Code Description Data Cecy rce(s) Supporting Document(s) HIV 1+2 Ab+HIV1 p24 Ag [Presence] in Serum or Plasma b y Immunoassay Non Reactive Non Reactive [facility] ID Date Data Source [id number] 12/11/2019 08:51:[address] [facility] Name Value Range Interpretation Code Description Data Cecy rce(s) Supporting Document(s) Treponema pallidum Ab [Presence] in Serum NON-REACTIVE NORMAL:NON MELBA CTIVE [facility] ID Date Data Source [id number] 12/14/2019 06:49:[address] [facility] Name Value Range Interpretation Code Description Data Cecy rce(s) Supporting Document(s) Chlamydia trachomatis rRNA [Presence] in Unspecified specimen by Probe and target amplification method Negative Negative [facility] Neisseria gonorrhoeae rRNA [Presence] in Unspecified specimen by Probe and target amplification method Negative Negative [facility] ID Date Data Source [id number] 12/11/2019 07:34:00 PM EST [facility] Name Value Range Interpretation Code Description Data Cecy rce(s) Supporting Document(s) URINALYSIS [facility] akanksha URINALYSIS SOURCE R [facility] COLOR yellow NORMAL: Yellow [facility] CLARITY clear NORMAL: Clear [facility] Specific gravity of Urine by Test strip 1.010 1.001 - 1.030 [facility] pH 6 5 - 9 [facility] Glucose [Mass/volume] in Urine by Test strip NORM NORMAL: Negat [facility] Bilirubin.total [Presence] in Urine by Test strip NEG NORMAL: Negative [facility] Ketones [Presence] in Urine by Test strip NEG NORMAL: Negative [facility] Protein [Mass/volume] in Urine by Test strip NEG NORMAL: Negat [facility] Nitrite [Presence] in Urine by Test strip NEG NORMAL: Negative [facility] BLOOD NEG NORMAL: Negative [facility] Leukocyte esterase [Presence] in Urine by Test strip NEG [place] L: Negative [facility] Urobilinogen [Mass/volume] in Urine by Test strip NOR less alida n 1.0 mg/dL [facility] MICROSCOPIC Not Indicate [facility] ID Date Data Source [id number] 11/07/2019 08:51:00 PM [facility] [address] [place] [address] RESPIRATORY CARE REPORT ==== ---------NAME------- NUMBER SEX AGE ADMIT DISC. XRAY# F/C JULIAN Navarro [id number] M 29 11/06/19 11/06/19 [id number] [id number] E/R DATE OF : 1990 M/R# [id number] #: [id number] TR-07 LOCATION: [place] [id number] COMP LETE:11/07/19 03:07 [place] [id number] PHYSICIAN: SOLEDAD SAINI CH Name Value Range Interpretation Code Description Data Cecy rce(s) Supporting Document(s) ID Date Data Source [id number] 11/07/2019 04:06:00 PM EST [facility] [address] [place] [address] PHONE: [phone] FAX: [phone] Name .................. : BENJAMÍN Navarro Acct Number.................. : [id number] ROOM. ................. : [address] Number ................... : [id number] Stay type ............. : E/R Discharge Date......... ... : 11/06/19 Admit Date ......... : 11/06/19 Admit Phys .................... : SOLEDAD Turner Date of ....... : 1990 Family Phys ................... : NON STAFF Phone .................. : [phone] Age ................................ : 29 Film# .................. .:[id number] Sex ................................. : M Unsigned transcriptions are preliminary reports and do not represent a medical or legal document CHEST 2 VIEWS [id number] COMPLETE:11/06/19 14:30 KBO 17223 Reason(s): transient lightheadedness; resolved CHEST X-RAY: 2- VIEWS INDICATION: Transient lightheadedness, which has now resolved. FINDINGS: The cardiac and mediastinal silhouettes appear normal and the lungs are clear. The bones and soft tissues are normal. The upper abdomen is unremarkable. IMPRESSION: No acute disease identifiable. Electronically Reviewed and Signed By Kevin Ponce M.D. , 11/07/19 16:06, [facility] Transcribe Initials: FIORELLA , Transcribe Date: 11/06/19 18:06, Dictation Date: Copy for: PARVEEN GALLAGHER via fax Copy for: EMERGENCY DEPT via modem Copy for: 710 MED REC DISCHARGED Page 1 of 1 Name Value Range Interpretation Code Description Data Cecy rce(s) Supporting Document(s) ID Date Data Source [id number] 11/06/2019 10:57:00 AM EST [facility] 1 OrderSheet [facility] Emergency Department [address] [place] [address] Phone #: ext- [phone] 11/06/2019 10:53 Patient: CAMILO BUTTS Sex: M : 1990 Age: 29yWEIGHT:87.2 kg (M) HEIGHT:69 inches (E) BMI:28.4ALLERGIES: No Known Drug AllergyLAB ORDERSOrder Description Priority Entered Acknowledged InitialedCBC w Diff STAT 11:22 11/06/2019 11:28 Ruthann Saini plugmanCornelio P.A.-C; [id number] STAT 11:22 11/06/2019 11:28 Ruthann Saini plugmanCornelio P.A.-C; [id number] (Clean STAT 11:22 11/06/2019 11:28 [facility] Francisco J Saini plugman, Cornelio BENNETT P.A.-C; [id number] Nasal A B STAT 11:22 11/06/2019 11:50 Neida Strickland R.N.ABritt-C;HIV RNA Quant STAT 11:11/06/2019 11:43 [place] Francisco J Saini plugman, Cornelio BENNETT P.A.-C; Tech1 NOTES: ER HIV lab; pt requests. Need waiver signedDIAGNOSTIC STUDY ORDERSOrder Description Priority Entered Acknowledged InitialedChest 2 View STAT 11:57 11/06/2019 12:01 Em, January(Oxygen?(No)) Francisco J Recio.A.-C; Reason for Study: transient lightheadedness; resolvedMEDICATION/IV/DRIP/FLUID ORDERSOrder Description Priority Entered Acknowledged InitialedIV NS : Bolus 500 11:11/06/2019 Cancelled: Patient Refusal 11:50 Em,mL, then 125 mL/hr Francisco J Lawson.N. P.A.-C;GENERAL ORDERSOrder Description Priority Entered Acknowledged InitialedNPO 11:11/06/2019 11:33 Neida Strickland R.N. P.A.-C; 2 OrderSheet [facility] Emergency Department [address] [place] [address] Phone #: [phone]- [phone] 11/06/2019 10:53 Patient: CAMILO BUTTS Sex: M : 1990 Age: 29ySaline Lock 11:22 11/06/2019 Cancelled: Patient Refusal 11:50 Francisco J Strickland.N. P.A.- C;EKG 11:22 11/06/2019 Ack'd: 11:30 11:43 Ruthann Saini Greene plugman, plugman, Cornelio BENNETT P.A.-C; Cornelio BENNETT Tech1 Tech1[Electronically signed by Neida Strickland R.N. (13:11/06/2019)][Electronically signed by Francisco J Saini P.A.-C (01:28 11/07/2019)][Electronically locked by Neida Strickland R.N. (13:11/06/2019)] Name Value Range Interpretation Code Description Data Cecy e(s) Supporting Document(s) ID Date Data Source [id number] 11/06/2019 10:57:[address] [facility] 1 Medication Reconciliation Report [facility] Emergency Department [address] [place] [address] Phone #: ext- [phone] 11/06/2019 10:53 Patient: [...] rce(s) Supporting Document(s) ID Date Data Source [id number] 11/06/2019 10:57:[address] [facility] 1 Medication Administration Record [facility] Emergency Department [address] [place] [address] Phone #: ext- [phone] 10:53 Patient: CAMILO BUTTS Sex: M : 1990 Age: 29yWeight: 87.2 kgHeight/Length: 69 inBMI: 28.4ALLERGIES: No Known Drug AllergyDate/Time Medication Administered Medication Ordered Name Value Range Interpretation Code Description Data [facility] rce(s) Supporting Document(s) ID Date Data Source [id number] 11/06/2019 10:57:[address] [facility] 1 General Instructions [facility] Emergency Department [address] [place] [address] Phone #: ext- [phone] 11/06/2019 10:53 Patient: CAMILO BUTST Sex: M : 1990 Age: 29y(Transient brief [...] rce(s) Supporting Document(s) ID Date Data Source [id number] 11/06/2019 10:57:[address] [facility] 1 Clinical Report - Nurses [facility] Emergency Department [address] [place] [address] Phone #: ldi- [phone] 11/06/2019 10:53 Patient: CAMILO BUTTS Sex: M [...] 97.1 F. Pain levelnow: 0/10. --10:57 11/06/19 Em, January, R.N.Weight: 87.2 kg measured. Height/Length: 69 inches Estimated. BMI: 28.4. --10:52 11/06/19 EmJanuary,R.N.MedicationsSEROquel Oral. --10:54 11/06/19January, R.N.AllergiesNo Known Drug Allergy. --10:54 11/06/19January, R.N.PROBLEMS:Ocd.Paranoid schizophrenia.Tbi. --10:56 11/06/19January, R.N.ADHD - Attention Deficit Hyperactivity Disorder. --11:20 11/06/19 Compa Logan.-CThe following entry was modified by Compa Logan.-C, 11:20 11/06/19ADHD - Attention Deficit Hyperactivity Disorder. --10:55 1/15/20 Neida Strickland RShirley..ADDITIONAL SURGERIES:Brain surgery (Removed tumors). --10:56 11/06/19 Neida Strickland R.N.HistorySOCIAL HX: Never smoker. No alcohol use or drug use. He was offered HIV testing, accepted andwritten consent was obtained. He has not traveled outside the [place]Infectious disease exposure: No infectious disease exposure. Patient is not a known carrier of tuberculosis,hepatitis, HIV, MRSA or VRE. Patient is not a known carrier of CRE. 2 Clinical Report - Nurses [facility] Emergency Department [address] [place] [address] Phone #: ext- [phone] 11/06/2019 10:53 Patient: [...] R.N. Interventions To treatment room. --10:57 11/06/19 Nieda Strickland R.N.PHYSICAL ASSESSMENT( pt has several layers [...] and shown to the PA. --11:43 11/06/19 Greene plugman, DONALD Grimes Tech1 11:40 11/06/19. Patient ID band checked for patient name and birthdate: patient confirmed. Flu swab obtained by RN via nasal swab. Labeled in the presence of the patient and sent to lab. --11:50 11/06/19 Neida Strickland R.N. 3 Clinical Report - Nurses [facility] Emergency Department [address] [place] [address] Phone #: ext- [phone] 11/06/2019 10:53 Patient: CAMILO BUTTS Sex: M : 1990 Age: 29y 11:45 11/06/19. ( blood drawn by slab lifting engineer.). --11:51 11/06/19 Neida Strickland R.N. ( RN went in to start IV to give fluids, pt states he "doesn't want all that complicated stuff", will make provider aware. Ice water provided.). --11:51 11/06/19 Nieda Strickland R.N. ( pt up to restroom [...] he either has to come to the [facility] medical r ecords dept and sign them out or see a pcp and they will request results and discuss treatment if he is positive. pt verbalized understanding.). --13:03 11/06/19 Neida Strickland R.N.DISPOSITION / DISCHARGE 13:00 11/06/19. BP: 126/86. HR: 73. RR: 17. O2 saturation: 99%. Temp: 98.2 F. Pain level now 0/10. --13:00 11/06/19 Greene plugman, Cornelio, ER Tech1 Condition at departure: improved and stable. No learning barriers present. Discharge instructions provided and reviewed with the patient. Patient verbalized understanding. Written instructions provided in Mauritanian. The patient was discharged by the physician dam tender assistant. He was discharged home. He left ambulatory and via taxi. 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 --13:01 11/06/19 Neida Strickland R.N.Locked/Released at 11/06/2019 13:03 by Neida Strickland R.N. Name Value Range Interpretation Code Description Data Cecy rce(s) Supporting Document(s) ID Date Data Source [id number] 11/06/2019 10:57:00 AM EST [facility] 1 Clinical Report - Physicians/Mid Levels [facility] Emergency Department [address] [place] [address] Phone #: ext- [phone] 11/06/2019 10:53 Patient: [...] HISTORYSee nurses notes. Seizures. Problems: Insomnia [Chronic]. Arroyo disorder. Lifestyle / Substance Problems. Neurological Disease. Bipolar Disorder. ADHD - Attention Deficit Hyperactivity Disorder. Other Disease. Seizure Disorder. Tendonitis. Tension-Type Headache. Obsessive Compulsive Disorder. Ocd. Paranoid schizophrenia. Tbi. 2 Clinical Report - Physicians/Mid Levels [facility] Emergency Department [address] [place] [address] Phone #: ext- [phone] 11/06/2019 10:53 Patient: CAMILO BUTTS [facility]#: [id number] Sex: M : 1990 Age: 29y Pneumonia [...] normal. 3 Clinical Report - Physicians/Mid Levels [facility] Emergency Department [address] [place] [address] Phone #: ext- [phone] 11/06/2019 10:53 Patient: [...] 70-79yrs 4 Clinical Report - Physicians/Mid Levels [facility] Emergency Department [address] [place] [address] Phone #: ext- [phone] 11/06/2019 10:53 Patient: CAMILO BUTTS Sex: M : 1990 Age: 29y >42 mL/min Normal 80 and above >35 mL/min Normal Female GFR Interpretation 20-39 yrs >60 mL/min Normal 40-49 yrs >58 mL/min Normal 50-59 yrs >51 mL/min Normal 60-69 yrs >45 mL/min Normal 70-79 yrs >39 mL/min Normal 80 and above >32 mL/min Normal Urinalysis: (LULU: 11/06/2019 11:18) ( [facility] 11/06/2019 11:55) Final results Test Result Flag [...] Nasal A B: ([facility]: 11/06/2019 11:35) ( [facility] 11/06/2019 12:11) Final results Test Result Flag Units (Reference) INFLUENZA A NEGATIVE (NORMAL: NEGAT INFLUENZA B NEGATIVE (NORMAL: NEGAT INFLUENZA A REENTER NEGATIVE (NORMAL: NEGAT INFLUENZA B REENTER NEGATIVE (NORMAL: NEGAT PROCEDURAL CONTROL VALID KIT LOT # _[id number] 11/06/19. . KIT EXP DATE _07.16.20 11/06/19.1211. .The Influenza A utilizin g an isothermal nucleic acid amplification technology for thequalitative detection of influenza A and B viral RNA.Negative results do not preclude influenza virus infection and should not beused as the sole basis for diagnosis, treatment or other patient managementdecisions. HIV RNA Quant: (ULLU: 11/06/2019 11:22) ( [facility] 11/06/2019 11:30) Canceled [...] results. 5 Clinical Report - Physicians/Mid Levels [facility] Emergency Department [address] [place] [address] Phone #: ext- [phone] 11/06/2019 10:53 Patient: CAMILO BUTTS Sex: M [...] patient. 6 Clinical Report - Physicians/Mid Levels [facility] Emergency Department [address] [place] [address] Phone #: ext- [phone] 11/06/2019 10:53 Patient: CAMILO BUTTS Sex: M : 1990 Age: 29y(Electronically signed by Francisco J Saini P.A.-C 11/07/2019 01:28) Name Value Range Interpretation Code Description Data Cecy rce(s) Supporting Document(s) ID Date Data Source [id number] 11/07/2019 10:12:00 AM EST [facility] Name Value Range Interpretation Code Description Data Cecy rce(s) Supporting Document(s) HIV 1+2 Ab+HIV1 p24 Ag [Presence] in Serum or Plasma b y Immunoassay Non Reactive Non Reactive [facility] ID Date Data Source [id number] 11/06/2019 12:10:00 PM EST [facility] Name Value Range Interpretation Code Description Data Cecy rce(s) Supporting Document(s) COMPREHENSIVE METABOLIC PANEL [facility] COMPREHENSIVE METABOLIC PANEL Sodium [Moles/volume] in Serum or Plasma 141 mEq/L 134 - 153 [facility] Potassium [Moles/volume] in Serum or Plasma 4.0 mEq/L 3.6 - 5.0 [facility] Chloride [Moles/volume] in Serum or Plasma 105 mEq/L 98 - 107 [facility] Carbon dioxide, total [Moles/volume] in Serum or Plasma 26 MEQ/L 22 - 30 [facility] Glucose [Mass/volume] in Serum or Plasma 98 MG/DL 65 - 110 [facility] BUN 17 MG/DL 7 - 21 [facility] al Creatinine [Mass/volume] in Serum or Plasma 0.7 MG/DL 0.7 - 1.5 [facility] BUN/CREAT 24 8 - 27 [facility] Protein [Mass/volume] in Serum or Plasma 6.7 G/DL 6.3 - 8.2 [facility] Albumin [Mass/volume] in Serum or Plasma 4.3 G/DL 3.9 - 5.0 [facility] Globulin [Mass/volume] in Serum by calculation 2.4 GM/DL 2.4 - 3.2 [facility] A/G RATIO 1.8 0.8 - 2.0 [facility] al Calcium [Mass/volume] in Serum or Plasma 9.5 MG/DL 8.4 - 10.2 [facility] Bilirubin.total [Mass/volume] in Serum or Plasma 0.8 MG/DL 0.2 - 1.3 [facility] Alkaline phosphatase [Enzymatic activity/volume] in Serum or Plasma 107 U/L 38 - 126 [facility] Aspartate aminotransferase [Enzymatic activity/volume] in Serum or Plasma 18 U/L 5 - 40 [facility] Alanine aminotransferase [Enzymatic activity/volume] in Seru m or Plasma 24 U/L 7 - 56 [facility] Anion gap 3 in Serum or Plasma 10.0 mmol/L 8.0 - 16.0 [facility] AGE 29 yrs [facility] NON-AA GFR >60 mL/min [facility] AFR AMER GFR >60 mL/min [facility] Male GFR In terprentation [...] >32 mL/min Normal ID Date Data Source [id number] 11/06/2019 11:57:00 AM EST [facility] Name Value Range Interpretation Code Description Data Cecy rce(s) Supporting Document(s) CBC W/AUTOMATED DIFF [facility] COMPLETE BLOOD COUNT Leukocytes [#/volume] in Blood by Automated count 6.8 10^3/uL 4.2 - 1 1.0 [facility] Erythrocytes [#/volume] in Blood by Automated count 5.42 10^6/uL 4. 50 - 6.30 [facility] Hemoglobin [Mass/volume] in Blood 16.1 g/dL 14.0 - 16.0 H [facility] Hematocrit [Volume Fraction] of Blood by Automated count 47.4 % 4 1.0 - 51.0 [facility] Erythrocyte mean corpuscular volume [Entitic volume] by Auto mated count 87.5 fL 80.0 - 94.0 [facility] Erythrocyte mean corpuscular hemoglobin [Entitic mass] by Automated count 29.7 pg 27.0 - 34.0 [facility] Erythrocyte mean corpuscular hemoglobin concentration [Mass/volume] by Automated count 34.0 g/dL 31.0 - 36.0 [facility] Erythrocyte distribution width [Ratio] by Automated count 12.4 % 11.5 - 14.8 [facility] Platelets [#/volume] in Blood by Automated count 237 10^3/uL 150 - 45 0 [facility] Platelet mean volume [Entitic volume] in Blood by Automated count 9.5 fL 7.4 - 10.4 [facility] Neutrophils/100 leukocytes in Blood by Automated count 69.2 % 37. 0 - 80.0 [facility] Lymphocytes/100 leukocytes in Blood by Manual count 20.1 % 25.0 - 40.0 L [facility] Monocytes/100 leukocytes in Blood by Automated count 7.3 % 3.0 - 8.0 [facility] Eosinophils/100 leukocytes in Blood by Automated count 2.2 % 0.0 - 7.0 [facility] Basophils/100 leukocytes in Blood by Automated count 0.6 % 0.0 - 2.0 [facility] %IG 0.6 % 0.0 - 0.0 H [facility] %NRBC 0.0 % 0.0 - 0.0 [facility] al Neutrophils [#/volume] in Blood by Automated count 4.73 10^3/uL 2.00 - 6.90 [facility] Lymphocytes [#/volume] in Blood by Automated count 1.37 10^3/uL 0.60 - 3.40 [facility] Monocytes [#/volume] in Blood by Automated count 0.50 10^3/uL 0.00 - 0.90 [facility] Eosinophils [#/volume] in Blood by Automated count 0.15 10^3/uL 0.00 - 0.70 [facility] Basophils [#/volume] in Blood by Automated count 0.04 10^3/uL 0.00 - 0.20 [facility] #IG 0.04 10^3/uL 0.00 - 0.10 [facility] #NRBC 0.00 10^3/uL 0.00 - 0.00 [facility] MANUAL DIFF NOT INDICATED [facility] RBC MORPH NOT INDICATED [facility] ID Date Data Source [id number] 11/06/2019 12:11:00 PM EST [facility] Name Value Range Interpretation Code Description Data Cecy rce(s) Supporting Document(s) Influenza virus A Ag [Presence] in Nasopharynx by Immunoassa y NEGATIVE NORMAL: NEGATIVE [facility] Influenza virus B Ag [Presence] in Nasopharynx by Immunoassa y NEGATIVE NORMAL: NEGATIVE [facility] NEGATIVENEGATIVE PROCEDURAL CO NTROL VALID KIT LOT # _[id number] 11/06/19.1210 . KIT EXP DATE _07.16.20 11/06/19. .The Influenza A & B assay is a rapid molecular in vitro diagnostic testutilizing an isothermal nucleic acid amplification technology for thequalitative detection of influenza A and B viral RNA.Negative results do not preclude influenza virus infection and should not beused as the sole basis for diagnosis, treatment or other patient managementdecisions. ID Date Data Source [id number] 11/06/2019 11:55:00 AM EST [facility] Name Value Range Interpretation Code Description Data [facility] rce(s) Supporting Document(s) [facility] S[facility] R [facility] COLOR yellow NORMAL: Yellow [facility]ital CLARITY clear NORMAL: Clear [facility] Specific gravity of Urine by Test strip 1.020 1.001 - 1.030 [facility] pH 7 5 - 9 [facility] al Glucose [Mass/volume] in Urine by Test strip NORM NORMAL: Negat [facility] Bilirubin.total [Presence] in Urine by Test strip NEG NORMAL: Negative [facility] Ketones [Presence] in Urine by Test strip NEG NORMAL: Negative [facility] Protein [Mass/volume] in Urine by Test strip NEG NORMAL: Negat [facility] Nitrite [Presence] in Urine by Test strip NEG NORMAL: Negative [facility] BLOOD NEG NORMAL: Negative [facility] Leukocyte esterase [Presence] in Urine by Test strip NEG [place] L: Negative [facility] Urobilinogen [Mass/volume] in Urine by Test strip 4 less alida n 1.0 mg/dL [facility] MICROSCOPIC Not Indicate [facility] Procedure Social History Code Duration Value Status Description Data Source(s ) Smoking 11/17/2020 12:00:00 AM EST Smoker, current status unkn own completed Smoker, current status unknown [facility] ([facility]) Smoking 11/02/2020 12:00:00 AM EST Smoker, current status unkn own completed Smoker, current status unknown [facility] ([facility]) Smoking 10/20/2020 12:00:00 AM EST Smoker, current status unkn own completed Smoker, current status unknown [facility] ([facility]) Smoking 09/24/2020 12:00:00 AM EST Smoker, current status unkn own completed Smoker, current status unknown [facility] ([facility]) Smoking 09/02/2020 12:00:00 AM EST Smoker, current status unkn own completed Smoker, current status unknown [facility] ([facility]) Smoking 08/19/2020 12:00:00 AM EDT Smoker, current status unkn own completed Smoker, current status unknown [facility] ([facility]) Smoking 08/18/2020 12:00:00 AM EDT Smoker, current status unkn own completed Smoker, current status unknown [facility] ([facility]) Smoking 07/29/2020 12:00:00 AM EDT Smoker, current status unkn own completed Smoker, current status unknown [facility] ([facility]) Smoking 07/22/2020 12:00:00 AM EDT Smoker, current status unkn own completed Smoker, current status unknown [facility] ([facility]) Smoking 07/10/2020 12:00:00 AM EDT Smoker, current status unkn own completed Smoker, current status unknown [facility] ([facility]) Smoking 04/13/2020 12:00:00 AM EDT Smoker, current status unkn own completed Smoker, current status unknown [facility] ([facility]) Smoking 02/24/2020 12:00:00 AM EDT Smoker, current status unkn own completed Smoker, current status unknown [facility] ([facility]) Smoking 02/19/2020 12:00:00 AM EDT Smoker, current status unkn own completed Smoker, current status unknown [facility] ([facility]) Smoking 01/28/2020 12:00:00 AM EDT Smoker, current status unkn own completed Smoker, current status unknown [facility] ([facility]) Smoking 01/10/2020 12:00:00 AM EDT Smoker, current status unkn own completed Smoker, current status unknown [facility] ([facility]) Smoking 12/26/2019 12:00:00 AM EST Smoker, current status unkn own completed Smoker, current status unknown [facility] ([facility]) Smoking 12/09/2019 12:00:00 AM EST Smoker, current status unkn own completed Smoker, current status unknown [facility] ([facility]) Smoking 10/21/2019 12:00:00 AM EST Smoker, current status unkn own completed Smoker, current status unknown [facility] ([facility])
[2020-12-09 17:53] VITALS: BP 147/95
[2020-12-09 18:51] LABS: HEMATOCRIT 48.9 % (42.0-52.0); MEAN CORPUSCULAR HEMOGLOBIN 30.2 pg (27.0-33.0); MEAN CORPUSCULAR HGB CONC 32.7 g/dl (32.0-36.5); MEAN CORPUSCULAR VOLUME 92.4 fl (80.0-96.0); PLATELET COUNT, AUTOMATED 295 10^3/uL (150-450); RED BLOOD COUNT 5.29 10^6/uL (4.30-6.10); WHITE BLOOD COUNT 8.4 10^3/uL (4.0-10.0)
--- OUTSIDE RECORDS SUMMARY | 2020-12-09 18:54 | CCD ---
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 08/29/2020 00:12 Patient: [...] rce(s) Supporting Document(s) ID Date Data Source [id number] 08/29/2020 12:13:00 AM [facility] 1 Clinical Report - Physicians/Mid Levels [facility] Emergency Department [address] [place] [address] Phone #: ext- [phone] 08/29/2020 00:12 Patient: [...] Abrasions 2 Clinical Report - Physicians/Mid Levels [facility] Emergency Department [address] [place] [address] Phone #: ext- [phone] 08/29/2020 00:12 [id number] Sex: M : 1990 Age: 29y Pneumonia). [...] ABD //T// PELV W/O ORAL [place] [address] ---------N RYANN--------- NUMBER SEX AGE ADMIT DISC. XRAY# F/C TYPE MANTLE CAMILO D [id number] M 29 08/29/20 [id number] NA E/R DATE OF : 1990 M/R# [id number] #: [id number] TR-03 3 Clinical Report - Physicians/Mid Levels [facility] Emergency Department [address] [place] [address] Phone #: ext- [phone] 08/29/2020 00:12 [id number] Sex: M : 1990 Age: 29y LOCATION: EMERGENCY DEPT TRANSCRIBED: 08/29/20 2:[address] ABD //T// PELV W/[place] ORAL W/[place] [address] COMPLETED:08/29/20 2:18 RLB [id number] Reason(s): Trauma/Injury PHYSICIAN: ANTHONY GODINEZ = R [...] pathologyevident.IMPRESSION: 4 Clinical Report - Physicians/Mid Levels [facility] Emergency Department [address] [place] [address] Phone #: ext- [phone] 08/29/2020 00:12 Patient: [...] Finalresults Exam CT ST NECK W/[place] [address] ---------NAME--------- NUMBER SEX AGE ADMIT DISC. XRAY# F/C TYPE BENJAMÍN Navarro [id number] M 29 08/29/20 [id number] NA E/R DATE OF : 1990 M/R# [id number] #: [id number] TR-03 LOCATION: EMERGENCY DEPT TRANSCRIBED: 08/29/20 2:[address] NECK W/O CONTRAST [id number] COMPLETED:08/29/20 2:18 RLB [id number] Reason(s): Trauma/Injury PHYSICIAN: ANTHONY GODINEZ R A [...] swelling or gas. 5 Clinical Report - Physicians/[facility] Emergency Department [address] [place] [address] Phone #: ext- [phone] 08/29/2020 00:12 Patient: [...] Final results Exam CT THORAX W/[place] [address] ---------NAME--------- NUMBER SEX AGE ADMIT DISC. XRAY# F/C TYPE BENJAMÍN Navarro [id number] M 29 08/29/20 [id number] NA E/R DATE OF : 1990 M/R# [id number] PH#: [phone] TR-03 LOCATION: EMERGENCY DEPT TRANSCRIBED: 08/29/20 2:[address] THORAX W/O CONTRAST [id number] COMPLETED:08/29/20 2:18 RLB [id number] Reason(s): Trauma/Injury PHYSICIAN: ANTHONY BR R A [...] study provided. 6 Clinical Report - Physicians/[facility] Emergency Department [address] [place] [address] Phone #: ext- [phone] 08/29/2020 00:12 Patient: [...] Date/Time: 08/29/20 02:56Urinalysis: (LULU: 08/29/2020 01:15) ( IdgRcvd 08/29/2020 01:25) Final results Test Result Flag [...] NEGAT 7 Clinical Report - Physicians/Mid Levels [facility] Emergency Department [address] [place] [address] Phone #: ext- [phone] 08/29/2020 00:12 Patient: [...] PRESUMPTIVE POSITIVE CONFIRMATION WILL BE PERFORMED AT [facility].CMP: (LULU: 08/29/2020 01:35) ( MsgRcvd 08/29/2020 [...] Male GFR Interprentation 20-49 yrs >60 mL/min Eqektd23-44 yrs >56 mL/min Normal 60-69 yrs >49 mL/min Normal 70-79yrs>42 mL/min Normal 80 and above >35 mL/min Normal Female GFRInterpretation 20-39 yrs >60 mL/min Normal 40-49 yrs >58 mL/minNormal 50-59 yrs >51 mL/min Normal 60-69 yrs >45 mL/min Htlcwp42-37 yrs >39 mL/min Normal 80 and above [...] 8 C linical Report - Physicians/Mid Levels [facility] Emergency Department [address] [place] [address] Phone #: ext- [phone] 08/29/2020 00:12 Patient: [...] NOT INDICATED Lipase: (LULU: 08/29/2020 01:35) ( [facility] 08/29/2020 02:03) Final results Test Result Flag Units (Reference) LIPASE 37 U/L (13 - 60) Lactic Acid: (LULU: 08/29/2020 01:35) ( [facility] 08/29/2020 01:45) Final results Test Result Flag [...] tendencies.). 9 Clinical Report - Physicians/Mid Levels [facility] Emergency Department [address] [place] [address] Phone #: ext- [phone] 08/29/2020 00:12 Patient: [...] rce(s) Supporting Document(s) ID Date Data Source [id number] 08/29/2020 02:56:00 [place] [address] ---------NAME--------- NUMBER SEX AGE ADMIT DISC. XRAY# F/C TYPE BENJAMÍN Navarro [id number] M 29 08/29/20 [id number] NA E/R DATE OF : 1990 M/R# [id number] #: [id number] TR-03 LOCATION: EMERGENCY DEPT TRANSCRIBED: 08/29/20 2:[address] THORAX W/O CONTRAST [id number] COMPLETED:08/29/20 2:18 RLB [id number] Reason(s): Trauma/Injury PHYSICIAN: ANTHONY BR R A [...] rce(s) Supporting Document(s) ID Date Data Source [id number] 08/29/2020 02:39:00 AM [facility] [address] [place] [address] ---------NAME--------- NUMBER SEX AGE ADMIT DISC. XRAY# F/C TYPE MANTLE CAMILO D [id number] M 29 08/29/20 [id number] NA E/R DATE OF : 1990 M/R# [id number] #: [id number] TR-03 LOCATION: EMERGENCY DEPT TRANSCRIBED: 08/29/20 2:[address] ABD //T// PELV W/O ORAL W/[place] [address] COMPLETED:08/29/20 2:18 RLB 13591 Reason(s): Trauma/Injury PHYSICIAN: ANTHONY GODINEZ======== R A [...] rce(s) Supporting Document(s) ID Date Data Source [id number] 08/29/2020 02:37:[address] [address] ---------NAME--------- NUMBER SEX AGE ADMIT DISC. XRAY# F/C TYPE MANTLE CAMILO D [id number] M 29 08/29/20 [id number] NA E/R DATE OF : 1990 M/R# [id number] #: [id number] TR-03 LOCATION: EMERGENCY DEPT TRANSCRIBED: 08/29/20 2:[address] NECK W/O CONTRAST [address] COMPLETED:08/29/20 2:18 RLB [id number] Reason(s): Trauma/Injury PHYSICIAN: ANTHONY BR R A [...] rce(s) Supporting Document(s) ID Date Data Source [id number] 08/29/2020 02:02:00 AM [facility] Name Value Range Interpretation Code Description Data Cecy rce(s) Supporting Document(s) Lipase [Enzymatic activity/volume] in Serum or Plasma 37 U/L 13 - 60 [facility] ID Date Data Source [id number] 08/29/2020 02:02:00 AM [facility] Name Value Range Interpretation Code Description Data [facility] Supporting Document(s) COMPREHENSIVE METABOLIC PANEL [facility] COMPREHENSIVE METABOLIC PANEL Sodium [Moles/volume] in Serum or Plasma 136 mEq/L 134 - 153 [facility] Potassium [Moles/volume] in Serum or Plasma 3.8 mEq/L 3.6 - 5.0 [facility] Chloride [Moles/volume] in Serum or Plasma 103 mEq/L 98 - 107 [facility] Carbon dioxide, total [Moles/volume] in Serum or Plasma 26 MEQ/L 22 - 30 [facility] Glucose [Mass/volume] in Serum or Plasma 106 MG/DL 65 - 110 [facility] BUN 14 MG/DL 7 - 21 [facility] Creatinine [Mass/volume] in Serum or Plasma 0.6 MG/DL 0.7 - 1.5 L [facility] BUN/CREAT 23 8 - 27 [facility] Protein [Mass/volume] in Serum or Plasma 6.6 G/DL 6.3 - 8.2 [facility] Albumin [Mass/volume] in Serum or Plasma 4.3 G/DL 3.9 - 5.0 [facility] Globulin [Mass/volume] in Serum by calculation 2.3 GM/DL 2.4 - 3.2 L [facility] A/G RATIO 1.9 0.8 - 2.0 [facility] Calcium [Mass/volume] in Serum or Plasma 9.3 MG/DL 8.4 - 10.2 [facility] Bilirubin.total [Mass/volume] in Serum or Plasma 0.8 MG/DL 0.2 - 1.3 [facility] Alkaline phosphatase [Enzymatic activity/volume] in Serum or Plasma 108 U/L 38 - 126 [facility] Aspartate aminotransferase [Enzymatic activity/volume] in Serum or Plasma 17 U/L 5 - 40 [facility] Alanine aminotransferase [Enzymatic activity/volume] in Seru m or Plasma 18 U/L 7 - 56 [facility] Anion gap 3 in Serum or Plasma 7.0 mmol/L 8.0 - 16.0 L [facility] AGE 29 yrs [facility] Hospit al NON-AA GFR >60 mL/min [facility] Hosp ital AFR AMER GFR >60 mL/min [facility] Ho spital Male GFR In [...] >32 mL/min Normal ID Date Data Source [id number] 08/29/2020 01:45:00 AM [facility] Name Value Range Interpretation Code Description Data Cecy rce(s) Supporting Document(s) Lactate [Moles/volume] in Serum or Plasma 1.0 MMOL/L 0.2 - 2.2 [facility] ID Date Data Source [id number] 08/29/2020 01:42:00 AM [facility] Name Value Range Interpretation Code Description Data Cecy rce(s) Supporting Document(s) CBC W/AUTOMATED DIFF [facility] COMPLETE BLOOD COUNT Leukocytes [#/volume] in Blood by Automated count 8.4 10^3/uL 4.2 - 1 1.0 [facility] Erythrocytes [#/volume] in Blood by Automated count 4.97 10^6/uL 4. 50 - 6.30 [facility] Hemoglobin [Mass/volume] in Blood 15.1 g/dL 14.0 - 16.0 [facility] Hematocrit [Volume Fraction] of Blood by Automated count 43.8 % 4 1.0 - 51.0 [facility] Erythrocyte mean corpuscular volume [Entitic volume] by Auto mated count 88.1 fL 80.0 - 94.0 [facility] Erythrocyte mean corpuscular hemoglobin [Entitic mass] by Automated count 30.4 pg 27.0 - 34.0 [facility] Erythrocyte mean corpuscular hemoglobin concentration [Mass/volume] by Automated count 34.5 g/dL 31.0 - 36.0 [facility] Erythrocyte distribution width [Ratio] by Automated count 12.6 % 11.5 - 14.8 [facility] Platelets [#/volume] in Blood by Automated count 258 10^3/uL 150 - 45 0 [facility] Platelet mean volume [Entitic volume] in Blood by Automated count 9.9 fL 7.4 - 10.4 [facility] Neutrophils/100 leukocytes in Blood by Automated count 59.4 % 37. 0 - 80.0 [facility] Lymphocytes/100 leukocytes in Blood by Manual count 28.6 % 25.0 - 40.0 [facility] Monocytes/100 leukocytes in Blood by Automated count 8.9 % 3.0 - 8.0 H [facility] Eosinophils/100 leukocytes in Blood by Automated count 2.1 % 0.0 - 7.0 [facility] Basophils/100 leukocytes in Blood by Automated count 0.6 % 0.0 - 2.0 [facility] %IG 0.4 % 0.0 - 0.0 [facility] %NRBC 0.0 % 0.0 - 0.0 [facility] al Neutrophils [#/volume] in Blood by Automated count 4.99 10^3/uL 2.00 - 6.90 [facility] Lymphocytes [#/volume] in Blood by Automated count 2.40 10^3/uL 0.60 - 3.40 [facility] Monocytes [#/volume] in Blood by Automated count 0.75 10^3/uL 0.00 - 0.90 [facility] Eosinophils [#/volume] in Blood by Automated count 0.18 10^3/uL 0.00 - 0.70 [facility] Basophils [#/volume] in Blood by Automated count 0.05 10^3/uL 0.00 - 0.20 [facility] #IG 0.03 10^3/uL 0.00 - 0.10 [facility] H ospital #NRBC 0.00 10^3/uL 0.00 - 0.00 [facility] ospital MANUAL DIFF NOT INDICATED [facility] RBC MORPH NOT INDICATED [facility] Ho spital ID Date Data Source [id number] 08/29/2020 01:40:00 AM [facility] Name Value Range Interpretation Code Description Data Cecy rce(s) Supporting Document(s) DRUG SCREEN URINE [facility] URINE DRUG SCREEN Amphetamine [Presence] in Urine by Screen method NEGATIVE NORMAL: N EGATIVE [facility] BARBITURATES NEGATIVE NORMAL: NEGATIVE [facility] BENZO NEGATIVE NORMAL: NEGATIVE [facility] COCAINE NEGATIVE NORMAL: NEGATIVE [facility] Tetrahydrocannabinol [Presence] in Urine NEGATIVE NORMAL: NEGATIVE [facility] OPIATES NEGATIVE NORMAL: NEGATIVE [facility] Phencyclidine [Presence] in Urine by Screen method NEGATIVE NOR MAL: NEGATIVE [facility] \\BLDo\\URINE DRUG SCR EEN INTERPRETATION\\BLDx\\ THE CUTOFFF LEVELS FOR DETECTION ARE FOLLOWS: AMPHETAMINES 1000 ng/ml BARBITUARATES 200 ng/ml BENZODIAZEPINES 100 ng/ml THC 50 ng/ml PHENCYCLIDINE 25 ng/ml OPIATES 300 ng/ml COCAINE 300 ng/ml ALL POSITIVES ARE CONSIDERED PRESUMPTIVE POSITIVE CONFIRMATION WILL BE PERFORMED AT PHYSICIAN REQUEST. ID Date Data Source [id number] 08/29/2020 01:25:00 AM [facility] Name Value Range Interpretation Code Description Data Cecy rce(s) Supporting Document(s) [facility] R [facility] COLOR yellow NORMAL: Yellow [facility]sp[facility] CLARITY clear NORMAL: Clear [facility] spital Specific gravity of Urine by Test strip 1.010 1.001 - 1.030 [facility] pH 6.5 5 - 9 [facility] al Glucose [Mass/volume] in Urine by Test strip NORM NORMAL: Negat [facility] Bilirubin.total [Presence] in Urine by Test strip NEG NORMAL: Negative [facility] Ketones [Presence] in Urine by Test strip NEG NORMAL: Negative [facility] Protein [Mass/volume] in Urine by Test strip NEG NORMAL: Negat [facility] Nitrite [Presence] in Urine by Test strip NEG NORMAL: Negative [facility] BLOOD NEG NORMAL: Negative [facility] Leukocyte esterase [Presence] in Urine by Test strip NEG TRENTON L: Negative [facility] Urobilinogen [Mass/volume] in Urine by Test strip NOR less alida n 1.0 mg/dL [facility] MICROSCOPIC Not Indicate [facility] ospital ID Date Data Source [id number] 08/19/2020 01:52:52 PM EDT [facility] Vital SignsBlood Pressure: 138/82 Patient History Medical History:Brain TumorSeizure DisorderDepressionHx of kidney stonesBipolarSurgical History:Partial lobectomyFamily History:No known family historySocial/Personal History: Smoking Status: current some day smokerDo you vape? NoCurrent Problems: Normal examination (ICD-V65.5) (YPE96-V73.1)Dental caries/Impaction of teeth (ICD-521.00) (JDG21-S24.9)Contact dermatitis and other eczema, unspecified cause (ICD-692.9) (VPB86-W06.9)Depression (ICD-311) (DTM04-S52.9)Seizure Disorder (ICD-780.39) (GRE37-O86.9)Brain Tumor (ICD-191.9) (MYB76-X35.9)Problem list reviewed during this update.Current Medications: SEROQUEL [...] on Tooth # 1 (Performed by Kimberley eWn [facility]) T - (D2140) Amalgam-one surface, primary [...] Known Allergies (updated 08/19/2020) Orders:Oral Surgery Referral [[id number]] Clinical Visit Summary Declined Name Value Range Interpretation Code Description Data Cecy rce(s) Supporting Document(s) ID Date Data Source [id number] 08/14/2020 07:17:00 PM EDT [facility] 1 Medication Reconciliation Report [facility] Emergency Department [address] [place] [address] Phone #: ext- [phone] 08/14/2020 19:09 Patient: [...] e(s) Supporting Document(s) ID Date Data Source [id number] 08/14/2020 07:17:00 PM EDT [facility] 1 Medication Administration Record [facility] Emergency Department [address] [place] [address] Phone #: ext- [phone] 19:09 Patient: CAMILO BUTTS Sex: M : 1990 Age: 29yWeight: 81.6 kgHeight/Length: 72 inBMI: 24.4ALLERGIES: No Known Drug AllergyDate/Time Medication Administered Medication Ordered Name Value Range Interpretation Code Description Data [facility](s) Supporting Document(s) ID Date Data Source [id number] 08/14/2020 07:17:00 PM EDT [facility] 1 General Instructions [facility] Emergency Department [address] [place] [address] Phone #: ext- [phone] 08/14/2020 19:09 Patient: CAMILO BUTTS Sex: M : 1990 Age: 29y Anxiety reaction. No hyperventilation.INSTRUCTIONS Warnings: GENERAL WARNINGS: Return or contact your physician immediately if your condition worsens or changes unexpectedly, if not improving as expected, or if other problems arise. Understanding of the discharge instructions verbalized by patient. Follow-up with: [facility], , , [address] [place], [address] Follow up in one week. Call for [...] may experience: Dry mouth 2 General Instructions [facility] Emergency Department [address] [place] [address] Phone #: ext- [phone] 08/14/2020 19:09 Patient: [...] Also, there are certain 3 General Instructions [facility] Emergency Department [address] [place] [address] Phone #: ext- [phone] 08/14/2020 19:09 Patient: [...] andtemporary medicine to help you manage stress.Call [phone] if any of these happen: Trouble breathing [...] and mild pain reliever 4 General Instructions [facility] Emergency Department [address] [place] [address] Phone #: ext- [phone] 08/14/2020 19:09 Patient: CAMILO BUTTS Sex: M : 1990 Age: 29y [id number] [employer]. [address] [place] [address], [place] [address]. All rights reserved. This information is not intended as asubstitute for professional medical care. Always follow your healthcare professional's instructions. You have been given the following additional information: Anxiety Reaction(Electronically signed by Pedro Kim, 08/14/2020 20:15) Name Value Range Interpretation Code Description Data Cecy rce(s) Supporting Document(s) ID Date Data Source [id number] 08/14/2020 07:17:00 PM EDT [facility] 1 Clinical Report - Nurses [facility] Emergency Department [address] [place] [address] Phone #: ext- [phone] 08/14/2020 19:09 Patient: [...] 1/2 tablet, daily at bedtime. --19:27 08/14/20 Seaview, Alfonso, R.N.AllergiesNo Known Drug Allergy. --19:27 08/14/20 [...] no barriers. 2 Clinical Report - Nurses [facility] Emergency Department [address] [place] [address] Phone #: ext- [phone] 08/14/2020 19:09 Patient: CAMILO BUTTS Sex: M : 1990 Age: 29y FALL RISK ASSESSMENT: Fall risk assessment completed. No risk factors identified. SKIN INTEGRITY ASSESSMENT: Skin integrity risk assessment completed. No skin integrity risk identified. --19:30 08/14/20 Alfonso Buck R.N. FAMILY HX: No significant family medical history. --19:53 08/14/20 Pedro Kim.PHYSICAL PTFEMHEKVA15:35 08/14/20. Ambulatory to room.GENERAL / NEURO / [...] Patient verbalized understanding. Written instructions provided in Maltese. The patient was discharged home and unaccompanied at time of discharge. He left ambulatory and via taxi. 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 --20:04 08/14/20 Carito Barry R.N. 20:03 08/14/20. BP: 141/93. MAP: 109. HR: 81. RR: 16. O2 saturation: 98%. Temp: 97.9 F. Pain level now: 0/10. --20:04 08/14/20 Carito Barry R.N.Locked/Released at 08/14/2020 20:04 by Carito Barry R.N. Name Value Range Interpretation Code Description Data Cecy rce(s) Supporting Document(s) ID Date Data Source [id number] 08/14/2020 07:17:00 PM EDT [facility] 1 Clinical Report - Physicians/Mid Levels [facility] Emergency Department [address] [place] [address] Phone #: ext- [phone] 08/14/2020 19:09 Patient: [...] alone. 2 Clinical Report - Physicians/Mid Levels [facility] Emergency Department [address] [place] [address] Phone #: ext- [phone] 08/14/2020 19:09 Patient: CAMILO BUTTS Sex: M [...] patient. 3 Clinical Report - Physicians/Mid Levels [facility] Emergency Department [address] [place] [address] Phone #: ext- [phone] 08/14/2020 19:09 Patient: CAMILO BUTTS Sex: M : 1990 Age: 29y Follow-up with: [facility], , , [address] [place], [address] Follow up in one week. Call for an appointment.(Electronically signed by Pedro Kim, 08/14/2020 20:15) Name Value Range Interpretation Code Description Data Cecy rce(s) Supporting Document(s) ID Date Data Source [id number] 05/04/2020 10:53:00 AM EDT [facility] [address] [place] [address] PHONE: [phone] FAX: [phone] Name .................. : BENJAMÍN Navarro Acct Number.................. : [id number] ROOM. ................. : TR-07 MR Number ................... : [id number] Stay type ............. : E/R Discharge Date......... ... : Admit Date ......... : 05/02/20 Admit Phys .................... : SAQIB PA Date of ....... : 1990 Family Phys ................... : NON STAFF Phone .................. : [phone] Age ................................ : 29 Film# .................. .:[id number] Sex ................................. : M Unsigned transcriptions are preliminary reports and do not represent a medical or legal document CT HEAD W/O CONTRAST [id number] COMPLETE:05/02/20 11:52 KBO 26244 Reason(s): Head Pain CT OF THE HEAD [...] 05/02/20 12:23, Dictation Date: Copy for: PARVEEN GALLAHGER via fax Copy for: EMERGENCY DEPT via modem Copy for: 710 MED REC DISCHARGED Page 1 of 1 Name Value Range Interpretation Code Description Data Cecy rce(s) Supporting Document(s) ID Date Data Source [id number] 05/04/2020 10:53:00 [place] [address] PHONE: [phone] FAX: [phone] Name .................. : BENJAMÍN Navarro Acct Number.................. : [id number] ROOM. ................. : TR-07 MR Number ................... : [id number] Stay type ............. : E/R Discharge Date......... ... : Admit Date ......... : 05/02/20 Admit Phys .................... : SAQIB GRUBBS Date of ....... : 1990 Family Phys ................... : NON STAFF Phone .................. : [phone] Age ................................ : 29 Film# .................. .:[id number] Sex ................................. : M Unsigned transcriptions are preliminary reports and do not represent a medical or legal document CHEST PORTABLE [id number] COMPLETE:05/02/20 11:52 KBO 72650 Reason(s): seizure PORTABLE CHEST X-RAY: COMPARISON: 11/06/19 [...] rce(s) Supporting Document(s) ID Date Data Source [id number] 05/03/2020 01:07:00 PM EDT [facility] [address] [facility] [place] [address] RESPIRATORY CARE REPORT ==== ---------NAME------- NUMBER SEX AGE ADMIT DISC. XRAY# F/C JULIAN Navarro [id number] M 29 05/02/20 05/02/20 [id number] XBE E/R DATE OF : 1990 M/R# [id number] #: [id number] TR-07 LOCATION: EMERGENCY DEPT EKG [id number] COMPLE TE:05/02/20 14:49 [place] [address] PHYSICIAN: SAQIB SAINI CH Name Value Range Interpretation Code Description Data Cecy rce(s) Supporting Document(s) ID Date Data Source [id number] 05/02/2020 10:49:00 AM EDT [facility] 1 OrderSheet [facility] Emergency Department [address] [place] [address] Phone #: ext- [phone] 05/02/2020 10:49 Patient: [...] STAT 11:06 05/02/2020 11:14 Freddy 2 OrderSheet [facility] Emergency Department [address] [place] [address] Phone #: ext- [phone] 05/02/2020 10:49 Patient: [...] 05/02/2020 11:14 TerryMonitor Francisco J Blanchard RN P.A.-C;Clinical Account Executive 11:11 05/02/2020 11:14 Freddy(continuous) Francisco J Blanchard RN P.A.-C;NPO 11:11 05/02/2020 11:14 Freddy 3 OrderSheet [facility] Emergency Department [address] [place] [address] Phone #: ext- [phone] 05/02/2020 10:49 Patient: [...] rce(s) Supporting Document(s) ID Date Data Source [id number] 05/02/2020 10:49:00 AM EDT [place] [address] Medication Reconciliation Report [facility] Emergency Department [address] [place] [address] Phone #: ext- [phone] 05/02/2020 10:49 Patient: [...] rce(s) Supporting Document(s) ID Date Data Source [id number] 05/02/2020 10:49:00 AM EDT [facility] 1 Medication Administration Record [facility] Emergency Department [address] [place] [address] Phone #: ext- [phone] 05/02/2020 10:49 Patient: [...] rce(s) Supporting Document(s) ID Date Data Source [id number] 05/02/2020 10:49:00 AM EDT [facility] 1 General Instructions [facility] Emergency Department [address] [place] [address] Phone #: [phone] inn- [phone] 05/02/2020 10:49 Patient: CAMILO BUTTS Sex: M [...] discharge instructions verbalized by patient.Follow-up with: [facility], , [id number], [address] [place] [address], [address] Follow up. Call for the next available [...] change to another medicine. 2 General Instructions [facility] Emergency Department [address] [place] [address] Phone #: ext- [phone] 05/02/2020 10:49 Patient: [...] and/or another type of 3 General Instructions [facility] Emergency Department [address] [place] [address] Phone #: ext- [phone] 05/02/2020 10:49 Patient: [...] Headache that gets worse 4 General Instructions [facility] Emergency Department [address] [place] [address] Phone #: ext- [phone] 05/02/2020 10:49 Patient: CAMILO BUTTS Sex: M : 1990 Age: 29y [id number] [employer]. [address] [place] [address]. All rights reserved. This information is not intended as asubstitute for professional medical care. Always follow your healthcare professional's instructions. You have been given the following additional information: Seizure, Recurrent (Adult) No driving or operating machinery until released.(Electronically signed by Francisco J Saini P.A.-C 05/03/2020 10:57) Name Value Range Interpretation Code Description Data Cecy rce(s) Supporting Document(s) ID Date Data Source [id number] 05/02/2020 10:49:00 AM EDT [facility] 1 Clinical Report - Nurses [facility] Emergency Department [address] [place] [address] Phone #: ext- [phone] 05/02/2020 10:49 Patient: [...] trauma. Did not miss recentdose of anticonvulsant.Treatment COST REDUCTION ENGINEER:None.SEPSIS SCREEN: SIRS Screen negative. Sepsis Screen [...] Known Drug Allergy. --10:56 05/02/20 Freddy Blanchard RN.Xcsbepc74:59 05/02/20.PAST MEDICAL HX: Seizures. No history of [...] no deficiencies. 2 Clinical Report - Nurses [facility] Emergency Department [address] [place] [address] Phone #: ext- [phone] 05/02/2020 10:49 Patient: [...] To room. --10:59 05/02/20 Freddy Blanchard RN.PHYSICAL GZFPCCJMTV32:05/02/20. To room via stretcher.GENERAL / NEURO / [...] 11:05/02/20. Cardiac rhythm: normal sinus rhythm; (1050). quality assurance monitor final, NIBP monitor and pulse oximeter placed on patient; cardiac catheterization technician- Lead II; monitor alarms on; monitor strip [...] at 73 3 Clinical Report - Nurses [facility] Emergency Department [address] [place] [address] Phone #: ext- [phone] 05/02/2020 10:49 Patient: CAMILO BUTTS A cct#: [id number] Sex: M : 1990 Age: 29ymL/hr over [...] the PA (1120). Patient transported to [facility] with nurse and radiology administrator. (1130). Patient returned from CT by stretcher with nurse andradiology tech. (1135). --11:44 05/02/20 Donovan Pretty precautions maintained: side rails up x2 and padded, suction and O2 at bedside, patient in view ofBlip's station and call abbasi in reach (1050). [...] Specimen labeled in the presenceof the patient (7822). --12:34 05/02/20 Freddy Blanchard RN12:44 05/02/2020 Tylenol [...] Blanchard RN 4 Clinical Report - Nurses [facility] Emergency Department [address] [place] [address] Phone #: ext- [phone] 05/02/2020 10:49 Patient: CAMILO BUTTS [facility]#: [id number] Sex: M : 1990 Age: 29y 13:34 05/02/2020 Tylenol PO Response: pain is improving. Symptoms have improved the patient feels better. Physician assistant cross country coach notified. --13:34 05/02/20 Freddy Blanchard RN 13:34 05/02/2020 Ativan PO Response: pain is improving. Symptoms have improved the patient feels better. Physician assistant cross country coach notified. --13:34 05/02/20 Freddy Blanchard RN 13:00 [...] parent verbalized understanding. Written instructions provided in Maltese. The patient was discharged by the physician assistant cross country coach. He was discharged home and accompanied by parent. He left ambulatory and via private vehicle. Parent driving. --13:57 05/02/20 Freddy Blanchard RN 13:45 05/02/2020 Site #1 removed upon discharge. Catheter intact. Bandaid applied. --13:58 05/02/20 Freddy Blanchard RN.Locked/Released at 05/02/2020 16:59 by Freddy Blanchard RN Name Value Range Interpretation Code Description Data Cecy rce(s) Supporting Document(s) ID Date Data Source [id number] 05/02/2020 10:49:00 AM EDT [facility] 1 Clinical Report - Physicians/Mid Levels [facility] Emergency Department [address] [place] [address] Phone #: ext- [phone] 05/02/2020 10:49 Patient: CAMILO BUTTS Sex: M [...] tumor. See old chart. Problems: Insomnia [Chronic]. [place] disorder. Lifestyle / Substance Problems. Neurological Disease. Bipolar Disorder. Obsessive Compulsive Disorder. ADHD - Attention Deficit Hyperactivity Disorder. Seizure. Tendonitis. STD - Sexually Transmitted Disease. 2 Clinical Report - Physicians/Mid Levels [facility] Emergency Department [address] [place] [address] Phone #: ext- [phone] 05/02/2020 10:49 Patient: CAMILO BUTTS Sex: M [...] tibial 2+. 3 Clinical Report - Physicians/Mid [facility] Emergency Department [address] [place] [address] Phone #: ext- [phone] 05/02/2020 10:49 Patient: [...] Oxygen?(No) Room: ED Exam CHEST PORTABLE [facility] [address] [place] [address] PHONE: [phone] FAX: [phone] Name .................. : EBNJAMÍN Navarro Acct Number.................. : [id number] [facility] ................... : [id number] Stay type ............. : E/R Discharge Date......... ... : Admit Date ......... : 05/02/20 Admit Phys .................... : SAQIB GRUBBS Date of ....... : 1990 Family Phys ................... : NON STAFF Phone .................. : [phone] Age ................................ : 29 Film# .................. .:[id number] Sex ................................. : M Unsigned transcriptions are preliminary reports and do not represent a medical or legal document CHEST PORTABLE [id number] COMPLETE:05/02/20 11:52 KBO 48073 Reason(s): seizure 4 Clinical Report - Physicians/Mid Levels [facility] Emergency Department [address] [place] [address] Phone #: ext- [phone] 05/02/2020 10:49 Patient: [...] NONEDrug Screen- Urine: (LULU: 05/02/2020 12:30) ( IdgRcvd 05/02/2020 12:52) Final results Test Result Flag Units (Reference) DRUG SCREEN URINE URINE DRUG SCREEN AMPHETAMINES NEGATIVE (NORMAL: NEGAT 5 Clinical Report - Physicians/[facility] Emergency Department [address] [place] [address] Phone #: ext- [phone] 05/02/2020 10:49 Patient: [...] PRESUMPTIVE POSITIVE CONFIRMATION WILL BE PERFORMED AT [facility].CMP: (LULU: 05/02/2020 11:13) ( MsgRcvd 05/02/2020 11:44) [...] Male GFR Interprentation 20-49 yrs >60 mL/min Eamxvn81-31 yrs >56 mL/min Normal 60-69 yrs >49 mL/min Normal 70-79yrs>42 mL/min Normal 80 and above >35 mL/min Normal Female GFRInterpretation 20-39 yrs >60 mL/min Normal 40-49 yrs >58 mL/minNormal 50-59 yrs >51 mL/min Normal 60-69 yrs >45 mL/min Qhnsuv98-82 yrs >39 mL/min Normal 80 and above [...] 34.0) 6 Clinical Report - Physicians/Mid Levels [facility] Emergency Department [address] [place] [address] Phone #: ext- [phone] 05/02/2020 10:49 Patient: CAMILO BUTTS Sex: M [...] Head W/O Cont: (LULU: 05/02/2020 11:06) ( IdgRcvd 05/02/2020 12:26) In ProgressCT HEAD W/O CONTRASTReason(s): Head PainTRANSPORTATION: WC IV? O2? Oxygen?(No) Room: ED CMTS: Seizure Exam CT HEAD W/O CONTRAST [facility] [address] [place] [address] PHONE: [phone] FAX: [phone] Name .................. : BENJAMÍN VYASUA Ramon Acct Number.................. : [id number] ROOM. ................. : TR-07 MR Number ................... : [id number] Stay type ............. : E/R Discharge Date......... ... : Admit Date ......... : 05/02/20 Admit Phys .................... : SAQIB GRUBBS Date of ....... : 1990 Family Phys ................... : NON STAFF Phone .................. : [phone] Age ................................ : 29 Film# .................. .:[id number] Sex ................................. : M Unsigned transcriptions are preliminary reports and do not represent a medical or legal document CT HEAD W/O CONTRAST [id number] COMPLETE:05/02/20 11:52 KBO 99138 Reason(s): Head Pain 7 Clinical Report - Physicians/Mid Levels [facility] Emergency Department [address] [place] [address] Phone #: ext- [phone] 05/02/2020 10:49 Patient: [...] a 8 Clinical Report - Physicians/Mid Levels [facility] Emergency Department [address] [place] [address] Phone #: ext- [phone] 05/02/2020 10:49 Patient: CAMILO BUTTS Sex: M [...] cause, 9 Clinical Report - Physicians/Mid Levels [facility] Emergency Department [address] [place] [address] Phone #: ext- [phone] 05/02/2020 10:49 Patient: CAMILO BUTTS Sex: M [...] instructions verbalized by patient. Follow-up with: [facility], , [id number], [address] [place], [address] Follow up. Call for the next available appointment. Reason for referral: evaluation and treatment.(Electronically signed by Francisco J Saini P.A.-C 05/03/2020 10:57) Name Value Range Interpretation Code Description Data Cecy rce(s) Supporting Document(s) ID Date Data Source [id number] 05/02/2020 12:52:00 PM EDT [facility] Name Value Range Interpretation Code Description Data [facility] rce(s) Supporting Document(s) DRUG SCREEN URINE [facility] URINE DRUG SCREEN Amphetamine [Presence] in Urine by Screen method NEGATIVE NORMAL: N EGATIVE [facility] BARBITURATES NEGATIVE NORMAL: NEGATIVE [facility] BENZO NEGATIVE NORMAL: NEGATIVE [facility] COCAINE NEGATIVE NORMAL: NEGATIVE [facility] Tetrahydrocannabinol [Presence] in Urine NEGATIVE NORMAL: NEGATIVE [facility] OPIATES NEGATIVE NORMAL: NEGATIVE [facility] Phencyclidine [Presence] in Urine by Screen method NEGATIVE NOR MAL: NEGATIVE [facility] \\BLDo\\URINE DRUG SCR EEN INTERPRETATION\\BLDx\\ THE CUTOFFF LEVELS FOR DETECTION ARE FOLLOWS: AMPHETAMINES 1000 ng/ml BARBITUARATES 200 ng/ml BENZODIAZEPINES 100 ng/ml THC 50 ng/ml PHENCYCLIDINE 25 ng/ml OPIATES 300 ng/ml COCAINE 300 ng/ml ALL POSITIVES ARE CONSIDERED PRESUMPTIVE POSITIVE CONFIRMATION WILL BE PERFORMED AT PHYSICIAN REQUEST. ID Date Data Source [id number] 05/02/2020 12:52:00 PM EDT [facility] Name Value Range Interpretation Code Description Data Cecy rce(s) Supporting Document(s) URINALYSIS [facility] akanksha URINALYSIS SOURCE R [facility] COLOR yellow NORMAL: Yellow [facility] CLARITY clear NORMAL: Clear [facility] Specific gravity of Urine by Test strip 1.020 1.001 - 1.030 [facility] 6 5 - [facility] Gl[facility] [Mass/volume] in Urine by Test strip NORM NORMAL: Negat [facility] Bilirubin.total [Presence] in Urine by Test strip NEG NORMAL: Negative [facility] Ketones [Presence] in Urine by Test strip NEG NORMAL: Negative [facility] Protein [Mass/volume] in Urine by Test strip 15 NORMAL: Negat [facility] Nitrite [Presence] in Urine by Test strip NEG NORMAL: Negative [facility] BLOOD NEG NORMAL: Negative [facility] Leukocyte esterase [Presence] in Urine by Test strip NEG [place] L: Negative [facility] Urobilinogen [Mass/volume] in Urine by Test strip NOR less alida n 1.0 mg/dL [facility] MICROSCOPIC See Below [facility] ital WBC 0 - 1 NORMAL: NONE SEEN [facility] Erythrocytes [#/volume] in Urine by Test strip 0 - 1 NORMAL: NON E SEEN [facility] EPITHELIAL FEW NORMAL: NONE SEEN [facility] Bacteria [Presence] in Urine sediment by Light microscopy Tr mela NORMAL: NONE SEEN [facility] ID Date Data Source [id number] 05/06/2020 06:25:00 AM EDT [facility] Name Value Range Interpretation Code Description Data Cecy rce(s) Supporting Document(s) Prolactin [Mass/volume] in Serum or Plasma 12.7 ng/mL 4.0-15.2 [facility] ID Date Data Source [id number] 05/05/2020 08:12:00 AM EDT [facility] Name Value Range Interpretation Code Description Data Cecy rce(s) Supporting Document(s) Valproate [Mass/volume] in Serum or Plasma <4 ug/mL 50-100 L [facility] Verified by repeat analysis Detection Limit = 4 <4 indicates None Detected Toxicity may occur at levels of 100-500. Measurements of free unbound valproic acid may improve the assess- ment of clinical response. ID Date Data Source [id number] 05/02/2020 11:44:00 AM EDT [facility] Name Value Range Interpretation Code Description Data Cecy rce(s) Supporting Document(s) SALICYLATE <0.3 mg/dL 2.0 - 20.0 L [facility] ID Date Data Source [id number] 05/02/2020 11:44:00 AM EDT [facility] Name Value Range Interpretation Code Description Data Cecy rce(s) Supporting Document(s) Creatine kinase [Enzymatic activity/volume] in Serum or Plasma 2 04 U/L 30 - 170 H [facility] ID Date Data Source [id number] 05/02/2020 11:44:00 AM EDT [facility] Name Value Range Interpretation Code Description Data Cecy rce(s) Supporting Document(s) COMPREHENSIVE METABOLIC PANEL [facility] COMPREHENSIVE METABOLIC PANEL Sodium [Moles/volume] in Serum or Plasma 138 mEq/L 134 - 153 [facility] Potassium [Moles/volume] in Serum or Plasma 3.9 mEq/L 3.6 - 5.0 [facility] Chloride [Moles/volume] in Serum or Plasma 105 mEq/L 98 - 107 [facility] Carbon dioxide, total [Moles/volume] in Serum or Plasma 21 MEQ/L 22 - 30 L [facility] Glucose [Mass/volume] in Serum or Plasma 112 MG/DL 65 - 110 H [facility] BUN 10 MG/DL 7 - 21 [facility] Creatinine [Mass/volume] in Serum or Plasma 0.6 MG/DL 0.7 - 1.5 L [facility] BUN/CREAT 17 8 - 27 [facility] Protein [Mass/volume] in Serum or Plasma 6.6 G/DL 6.3 - 8.2 [facility] Albumin [Mass/volume] in Serum or Plasma 4.4 G/DL 3.9 - 5.0 [facility] Globulin [Mass/volume] in Serum by calculation 2.2 GM/DL 2.4 - 3.2 L [facility] A/G RATIO 2.0 0.8 - 2.0 [facility] Calcium [Mass/volume] in Serum or Plasma 8.7 MG/DL 8.4 - 10.2 [facility] Bilirubin.total [Mass/volume] in Serum or Plasma <0.7 MG/DL 0.2 - 1.3 [facility] Alkaline phosphatase [Enzymatic activity/volume] in Serum or Plasma 112 U/L 38 - 126 [facility] Aspartate aminotransferase [Enzymatic activity/volume] in Serum or Plasma 25 U/L 5 - 40 [facility] Alanine aminotransferase [Enzymatic activity/volume] in Seru m or Plasma 28 U/L 7 - 56 [facility] Anion gap 3 in Serum or Plasma 12.0 mmol/L 8.0 - 16.0 [facility] AGE 29 yrs [facility] al NON-AA GFR >60 mL/min [facility] ital AFR AMER GFR >60 mL/min [facility] spital Male GFR In [...] >32 mL/min Normal ID Date Data Source [id number] 05/02/2020 11:41:00 AM T [facility] Name Value Range Interpretation Code Description Data Cecy rce(s) Supporting Document(s) Acetaminophen [Presence] in Urine <5.0 UG/ML 0.0 - 30.0 [facility] ID Date Data Source [id number] 05/02/2020 11:40:00 AM EDT [facility] Name Value Range Interpretation Code Description Data Cecy rce(s) Supporting Document(s) CBC W/AUTOMATED DIFF [facility] COMPLETE BLOOD COUNT Leukocytes [#/volume] in Blood by Automated count 6.9 10^3/uL 4.2 - 1 1.0 [facility] Erythrocytes [#/volume] in Blood by Automated count 5.08 10^6/uL 4. 50 - 6.30 [facility] Hemoglobin [Mass/volume] in Blood 15.1 g/dL 14.0 - 16.0 [facility] Hematocrit [Volume Fraction] of Blood by Automated count 44.7 % 4 1.0 - 51.0 [facility] Erythrocyte mean corpuscular volume [Entitic volume] by Auto mated count 88.0 fL 80.0 - 94.0 [facility] Erythrocyte mean corpuscular hemoglobin [Entitic mass] by Automated count 29.7 pg 27.0 - 34.0 [facility] Erythrocyte mean corpuscular hemoglobin concentration [Mass/volume] by Automated count 33.8 g/dL 31.0 - 36.0 [facility] Erythrocyte distribution width [Ratio] by Automated count 12.4 % 11.5 - 14.8 [facility] Platelets [#/volume] in Blood by Automated count 255 10^3/uL 150 - 45 0 [facility] Platelet mean volume [Entitic volume] in Blood by Automated count 9.9 fL 7.4 - 10.4 [facility] Neutrophils/100 leukocytes in Blood by Automated count 74.4 % 37. 0 - 80.0 [facility] Lymphocytes/100 leukocytes in Blood by Manual count 14.6 % 25.0 - 40.0 L [facility] Monocytes/100 leukocytes in Blood by Automated count 7.5 % 3.0 - 8.0 [facility] Eosinophils/100 leukocytes in Blood by Automated count 1.9 % 0.0 - 7.0 [facility] Basophils/100 leukocytes in Blood by Automated count 0.6 % 0.0 - 2.0 [facility] %IG 1.0 % 0.0 - 0.0 [facility] %NR[facility] 0.0 % 0.0 - 0.0 [facility] al Neutrophils [#/volume] in Blood by Automated count 5.15 10^3/uL 2.00 - 6.90 [facility] Lymphocytes [#/volume] in Blood by Automated count 1.01 10^3/uL 0.60 - 3.40 [facility] Monocytes [#/volume] in Blood by Automated count 0.52 10^3/uL 0.00 - 0.90 [facility] Eosinophils [#/volume] in Blood by Automated count 0.13 10^3/uL 0.00 - 0.70 [facility] Basophils [#/volume] in Blood by Automated count 0.04 10^3/uL 0.00 - 0.20 [facility] #IG 0.07 10^3/uL 0.00 - 0.10 [facility] #NRBC 0.00 10^3/uL 0.00 - 0.00 [facility] MANUAL DIFF NOT INDICATED [facility] RBC MORPH NOT INDICATED [facility] spital ID Date Data Source [id number] 12/11/2019 07:07:00 PM EST [facility] 1 OrderSheet [facility] Emergency Department [address] [place] [address] Phone #: ext- [phone] 12/11/2019 19:05 Patient: [...] rce(s) Supporting Document(s) ID Date Data Source [id number] 12/11/2019 07:07:00 PM [facility] 1 Medication Reconciliation Report [facility] Emergency Department [address] [place] [address] Phone #: ext- [phone] 12/11/2019 19:05 Patient: [...] rce(s) Supporting Document(s) ID Date Data Source [id number] 12/11/2019 07:07:00 PM [facility] 1 Medication Administration Record [facility] Emergency Department [address] [place] [address] Phone #: ext- [phone] 19:05 Patient: CAMILO BUTTS Sex: M : 1990 Age: 29yWeight: 88.4 kgHeight/Length: 72 inBMI: 26.5ALLERGIES: No Known Drug AllergyDate/Time Medication Administered Medication Ordered Name Value Range Interpretation Code Description Data Cecy rce(s) Supporting Document(s) ID Date Data Source [id number] 12/11/2019 07:07:00 PM EST [facility] 1 General Instructions [facility] Emergency Department [address] [place] [address] Phone #: ext- [phone] 12/11/2019 19:05 Patient: [...] positive, contact your healthcare provider, local clinic, [facility] department to be treated, or return to our facility. You will be prescribed antibiotic medicine. Be sure to take all of the antibiotic as prescribed until it is gone or you are told to stop. Keep taking it even if you feel better. 2 General Instructions [facility] Emergency Department [address] [place] [address] Phone #: [phone] pqt- [phone] 12/11/2019 19:05 Patient: CAMILO BUTTS Sex: M [...] up with your provider or the [facility] for complete STI screening, including HIV testing, and to consider ways to prevent HIV.For more information about STIs, call the CDC information line at [phone] or look at the CDCwebsite online.When to [...] p ain or scrotal swelling in men 0122-4722 [employer]. [address] [place] [address], [place] [address]. All rights reserved. This information is not intended as asubstitute for professional medical care. Always follow your healthcare professional's instructions. You have been given the following additional information: Testing for Suspected STI 3 General Instructions [facility] Emergency Department [address] [place] [address] Phone #: ext- [phone] 12/11/2019 19:05 Patient: CAMILO BUTTS Sex: M : 1990 Age: 29y(Electronically signed by HUMERA Kan 12/11/2019 21:47) Name Value Range Interpretation Code Description Data Cecy rce(s) Supporting Document(s) ID Date Data Source [id number] 12/11/2019 07:07:00 PM [facility] 1 Clinical Report - Nurses [facility] Emergency Department [address] [place] [address] Phone #: [phone]- [phone] 12/11/2019 19:05 Patient: CAMILO BUTTS Sex: M : 1990 Age: 29yTRIAGEArrived by private vehicle. Historian: patient. Accompanied by (Dropped off by Medicaid cab).Triage time: 19:05 12/11/2019. Acuity: LEVEL 5.Chief Complaint: (Requests STD testing).Alert.This started today. ( Pt states "i would like to make sure i don't have no diseases". Pt denies anysymptoms;). ( Pt very vague during triage/angry/aggressvie).Treatment COST REDUCTION ENGINEER:None.SEPSIS SCREEN: NEGATIVE. Negative (no infection suspected/documented). [...] and oral 2 Clinical Report - Nurses [facility] Department [address] [place] [address] Phone #: ext- [phone] 12/11/2019 19:05 [id number] Sex: M : 1990 Age: 29y consent [...] Hernandez R.N. 3 Clinical Report - Nurses [facility] Emergency Department [address] [place] [address] Phone #: ext- [phone] 12/11/2019 19:05 Patient: CAMILO BUTTS Sex: M : 1990 Age: 29yDISPOSITION / DISCHARGE Departure time: 19:56 12/11/2019. Condition at departure: stable. No learning barriers present. Reviewed warnings. Reviewed medication(s). Treatments reviewed. Reviewed referrals. Patient verbalized understanding. Written instructions provided in Maltese. The patient was discharged by the physician assistant cross country coach. He was discharged home and unaccompanied at [...] rce(s) Supporting Document(s) ID Date Data Source [id number] 12/11/2019 07:07:00 PM EST [facility] 1 Clinical Report - Physicians/Mid Levels [facility] Emergency Department [address] [place] [address] Phone #: ext- [phone] 12/11/2019 19:05 Patient: CAMILO BUTTS Sex: M [...] inspection. 2 Clinical Report - Physicians/Mid Levels [facility] Emergency Department [address] [place] [address] Phone #: ext- [phone] 12/11/2019 19:05 Patient: CAMILO BUTTS Sex: M [...] Testing).INSTRUCTIONS 3 Clinical Report - Physicians/Mid Levels [facility] Emergency Department [address] [place] [address] Phone #: ext- [phone] 12/11/2019 19:05 Patient: [...] rce(s) Supporting Document(s) ID Date Data Source [id number] 12/13/2019 08:10:00 AM [facility] Name Value Range Interpretation Code Description Data Cecy rce(s) Supporting Document(s) HIV 1+2 Ab+HIV1 p24 Ag [Presence] in Serum or Plasma b y Immunoassay Non Reactive Non Reactive [facility] ID Date Data Source [id number] 12/11/2019 08:51:00 PM [facility] Name Value Range Interpretation Code Description Data Cecy rce(s) Supporting Document(s) Treponema pallidum Ab [Presence] in Serum NON-REACTIVE NORMAL:NON MELBA CTIVE [facility] ID Date Data Source [id number] 12/14/2019 06:49:00 PM [facility] Name Value Range Interpretation Code Description Data Cecy rce(s) Supporting Document(s) Chlamydia trachomatis rRNA [Presence] in Unspecified specimen by Probe and target amplification method Negative Negative [facility] Neisseria gonorrhoeae rRNA [Presence] in Unspecified specimen by Probe and target amplification method Negative Negative [facility] ID Date Data Source [id number] 12/11/2019 07:34:00 PM EST [facility] Name Value Range Interpretation Code Description Data Cecy rce(s) Supporting Document(s) URINALYSIS [facility] akanksha URINALYSIS SOURCE R [facility] COLOR yellow NORMAL: Yellow [facility] CLARITY clear NORMAL: Clear [facility] Specific gravity of Urine by Test strip 1.010 1.001 - 1.030 [facility] pH 6 5 - 9 [facility] Glucose [Mass/volume] in Urine by Test strip NORM NORMAL: Negat [facility] Bilirubin.total [Presence] in Urine by Test strip NEG NORMAL: Negative [facility] Ketones [Presence] in Urine by Test strip NEG NORMAL: Negative [facility] Protein [Mass/volume] in Urine by Test strip NEG NORMAL: Negat [facility] Nitrite [Presence] in Urine by Test strip NEG NORMAL: Negative [facility] BLOOD NEG NORMAL: Negative [facility] Leukocyte esterase [Presence] in Urine by Test strip NEG [place] L: Negative [facility] Urobilinogen [Mass/volume] in Urine by Test strip NOR less alida n 1.0 mg/dL [facility] MICROSCOPIC Not Indicate [facility] ID Date Data Source [id number] 11/07/2019 08:51:00 PM [facility] [address] [place] [address] RESPIRATORY CARE REPORT ==== ---------NAME------- NUMBER SEX AGE ADMIT DISC. XRAY# F/C JULIAN Navarro [id number] M 29 11/06/19 11/06/19 [id number] [id number] E/R DATE OF : 1990 M/R# [id number] #: [id number] TR-07 LOCATION[place] [id number] COMP LETE:11/07/19 03:07 VMT [id number] PHYSICIAN: SOLEDAD SAINI CH Name Value Range Interpretation Code Description Data Cecy rce(s) Supporting Document(s) ID Date Data Source [id number] 11/07/2019 04:06:00 PM EST [facility] [address] [place] [address] PHONE: [phone] FAX: [phone] Name .................. : BENJAMÍN Navarro Acct Number.................. : [id number] ROOM. ................. : [address] Number ................... : [id number] Stay type ............. : E/R Discharge Date......... ... : 11/06/19 Admit Date ......... : 11/06/19 Admit Phys .................... : SOLEDAD Turner Date of ....... : 1990 Family Phys ................... : NON STAFF Phone .................. : [phone] Age ................................ : 29 Film# .................. .:[id number] Sex ................................. : M Unsigned transcriptions are preliminary reports and do not represent a medical or legal document CHEST 2 VIEWS [id number] COMPLETE:11/06/19 14:30 KBO [id number] Reason(s): transient lightheadedness; resolved CHEST X-RAY: 2- VIEWS INDICATION: Transient lightheadedness, which has now resolved. FINDINGS: The cardiac and mediastinal silhouettes appear normal and the lungs are clear. The bones and soft tissues are normal. The upper abdomen is unremarkable. IMPRESSION: No acute disease identifiable. Electronically Reviewed and Signed By Kevin Ponce M.D. , 11/07/19 16:06, [facility] Transcribe Initials: FIORELLA , Transcribe Date: 11/06/19 18:06, Dictation Date: Copy for: PARVEEN GALLAGHER via fax Copy for: EMERGENCY DEPT via modem Copy for: 710 MED REC DISCHARGED Page 1 of 1 Name Value Range Interpretation Code Description Data Cecy rce(s) Supporting Document(s) ID Date Data Source [id number] 11/06/2019 10:57:00 AM EST [facility] 1 OrderSheet [facility] Emergency Department [address] [place] [address] Phone #: ext- [phone] 11/06/2019 10:53 Patient: CAMILO BUTTS Sex: M : 1990 Age: 29yWEIGHT:87.2 kg (M) HEIGHT:69 inches (E) BMI:28.4ALLERGIES: No Known Drug AllergyLAB ORDERSOrder Description Priority Entered Acknowledged InitialedCBC w Diff STAT 11:22 11/06/2019 11:28 Ruthann Saini dormitory maidConrelio P.A.-C; [id number] STAT 11:22 11/06/2019 11:28 Ruthann Saini dormitory maidCornelio P.A.-C; [id number] (Clean STAT 11:22 11/06/2019 11:28 [facility] Francisco J Saini dormitory maid, Cornelio BENNETT P.A.-C; [id number] Nasal A B STAT 11:22 11/06/2019 11:50 Neida Strickland R.N.ABritt-C;HIV RNA Quant STAT 11:11/06/2019 11:43 [place] Francisco J Saini dormitory maid, Cornelio BENNETT P.A.-C; Tech1 NOTES: ER HIV [...] 11:33 Neida Strickland R.N. P.A.-C; 2 OrderSheet [facility] Emergency Department [address] [place] [address] Phone #: [phone]- [phone] 11/06/2019 10:53 Patient: CAMILO BUTTS Sex: M : 1990 Age: 29ySaline Lock 11:22 11/06/2019 Cancelled: Patient Refusal 11:50 Francisco J Strickland.N. P.A.- C;EKG 11:22 11/06/2019 Ack'd: 11:30 11:43 Ruthann Saini [place] dormitory maid, dormitory maid, Cornelio BENNETT P.A.-C; Cornelio BENNETT Tech1 Tech1[Electronically signed by Neida Strickland R.N. (13:11/06/2019)][Electronically signed by Francisco J Saini P.A.-C (01:28 11/07/2019)][Electronically locked by Neida Strickland R.N. (13:11/06/2019)] Name Value Range Interpretation Code Description Data Cecy e(s) Supporting Document(s) ID Date Data Source [id number] 11/06/2019 10:57:00 AM [facility] 1 Medication Reconciliation Report [facility] Emergency Department [address] [place] [address] Phone #: ext- [phone] 11/06/2019 10:53 Patient: [...] rce(s) Supporting Document(s) ID Date Data Source [id number] 11/06/2019 10:57:00 AM [facility] 1 Medication Administration Record [facility] Emergency Department [address] [place] [address] Phone #: ext- [phone] 10:53 Patient: CAMILO BUTTS Sex: M : 1990 Age: 29yWeight: 87.2 kgHeight/Length: 69 inBMI: 28.4ALLERGIES: No Known Drug AllergyDate/Time Medication Administered Medication Ordered Name Value Range Interpretation Code Description Data [facility] rce(s) Supporting Document(s) ID Date Data Source [id number] 11/06/2019 10:57:00 AM [facility] 1 General Instructions [facility] Emergency Department [address] [place] [address] Phone #: ext- [phone] 11/06/2019 10:53 Patient: [...] rce(s) Supporting Document(s) ID Date Data Source [id number] 11/06/2019 10:57:00 AM [facility] 1 Clinical Report - Nurses [facility] Emergency Department [address] [place] [address] Phone #: oik- [phone] 11/06/2019 10:53 Patient: CAMILO BUTTS Sex: M [...] of CRE. 2 Clinical Report - Nurses [facility] Emergency Department [address] [place] [address] Phone #: ext- [phone] 11/06/2019 10:53 Patient: [...] and shown to the PA. --11:43 11/06/19 [place] dormitory maid, DONALD Grimes Tech1 11:40 11/06/19. Patient ID band checked for patient name and birthdate: patient confirmed. Flu swab obtained by RN via nasal swab. Labeled in the presence of the patient and sent to lab. --11:50 11/06/19 Neida Strickland R.N. 3 Clinical Report - Nurses [facility] Emergency Department [address] [place] [address] Phone #: ext- [phone] 11/06/2019 10:53 Patient: CAMILO BUTTS Sex: M : 1990 Age: 29y 11:45 11/06/19. ( blood drawn by school laboratory technician.). --11:51 11/06/19 Neida Strickland R.N. ( [...] he either has to come to [facility] and sign them out or see a pcp and they will request results and discuss treatment if he is positive. pt verbalized understanding.). --13:03 11/06/19 Neida Strickland R.N.DISPOSITION / DISCHARGE 13:00 11/06/19. BP: 126/86. HR: 73. RR: 17. O2 saturation: 99%. Temp: 98.2 F. Pain level now 0/10. --13:00 11/06/19 [place] dormitory maid, Cornelio, ER Tech1 Condition at departure: improved and stable. No learning barriers present. Discharge instructions provided and reviewed with the patient. Patient verbalized understanding. Written instructions provided in Maltese. The patient was discharged by the physician assistant cross country coach. He was discharged home. He left ambulatory and via taxi. 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 --13:01 11/06/19 Neida Strickland R.N.Locked/Released at 11/06/2019 13:03 by Neida Strickland R.N. Name Value Range Interpretation Code Description Data Cecy rce(s) Supporting Document(s) ID Date Data Source [id number] 11/06/2019 10:57:00 AM EST [facility] 1 Clinical Report - Physicians/Mid Levels [facility] Emergency Department [address] [place] [address] Phone #: ext- [phone] 11/06/2019 10:53 Patient: [...] HISTORYSee nurses notes. Seizures. Problems: Insomnia [Chronic]. [place] disorder. Lifestyle / Substance Problems. Neurological Disease. Bipolar Disorder. ADHD - Attention Deficit Hyperactivity Disorder. Other Disease. Seizure Disorder. Tendonitis. Tension-Type Headache. Obsessive Compulsive Disorder. Ocd. Paranoid schizophrenia. Tbi. 2 Clinical Report - Physicians/Mid Levels [facility] Emergency Department [address] [place] [address] Phone #: ext- [phone] 11/06/2019 10:53 Patient: CAMILO BUTTS [facility]#: [id number] Sex: M : 1990 Age: 29y Pneumonia [...] normal. 3 Clinical Report - Physicians/Mid Levels [facility] Emergency Department [address] [place] [address] Phone #: ext- [phone] 11/06/2019 10:53 Patient: [...] 70-79yrs 4 Clinical Report - Physicians/Mid Levels [facility] Emergency Department [address] [place] [address] Phone #: [phone] 11/06/2019 10:53 Patient: CAMILO BUTTS Sex: M : 1990 Age: 29y >42 mL/min Normal 80 and above >35 mL/min Normal Female GFR Interpretation 20-39 yrs >60 mL/min Normal 40-49 yrs >58 mL/min Normal 50-59 yrs >51 mL/min Normal 60-69 yrs >45 mL/min Normal 70-79 yrs >39 mL/min Normal 80 and above >32 mL/min Normal Urinalysis: (LULU: 11/06/2019 11:18) ( [facility] 11/06/2019 11:55) Final results Test Result Flag [...] Nasal A B: ([facility]: 11/06/2019 11:35) ( [facility] 11/06/2019 12:11) Final results Test Result Flag [...] results. 5 Clinical Report - Physicians/Mid Levels [facility] Emergency Department [address] [place] [address] Phone #: [phone] 11/06/2019 10:53 Patient: CAMILO BUTTS Sex: M [...] patient. 6 Clinical Report - Physicians/Mid Levels [facility] Emergency Department [address] [place] [address] Phone #: [phone] 11/06/2019 10:53 Patient: CAMILO BUTTS Sex: M : 1990 Age: 29y(Electronically signed by Francisco J Saini P.A.-C 11/07/2019 01:28) Name Value Range Interpretation Code Description Data Cecy rce(s) Supporting Document(s) ID Date Data Source [id number] 11/07/2019 10:12:00 AM EST [facility] Name Value Range Interpretation Code Description Data Cecy rce(s) Supporting Document(s) HIV 1+2 Ab+HIV1 p24 Ag [Presence] in Serum or Plasma b y Immunoassay Non Reactive Non Reactive [facility] ID Date Data Source [id number] 11/06/2019 12:10:00 PM EST [facility] Name Value Range Interpretation Code Description Data Cecy rce(s) Supporting Document(s) COMPREHENSIVE METABOLIC PANEL [facility] COMPREHENSIVE METABOLIC PANEL Sodium [Moles/volume] in Serum or Plasma 141 mEq/L 134 - 153 [facility] Potassium [Moles/volume] in Serum or Plasma 4.0 mEq/L 3.6 - 5.0 [facility] Chloride [Moles/volume] in Serum or Plasma 105 mEq/L 98 - 107 [facility] Carbon dioxide, total [Moles/volume] in Serum or Plasma 26 MEQ/L 22 - 30 [facility] Glucose [Mass/volume] in Serum or Plasma 98 MG/DL 65 - 110 [facility] BUN 17 MG/DL 7 - 21 [facility] al Creatinine [Mass/volume] in Serum or Plasma 0.7 MG/DL 0.7 - 1.5 [facility] BUN/CREAT 24 8 - 27 [facility] Protein [Mass/volume] in Serum or Plasma 6.7 G/DL 6.3 - 8.2 [facility] Albumin [Mass/volume] in Serum or Plasma 4.3 G/DL 3.9 - 5.0 [facility] Globulin [Mass/volume] in Serum by calculation 2.4 GM/DL 2.4 - 3.2 [facility] A/G RATIO 1.8 0.8 - 2.0 [facility] Calcium [Mass/volume] in Serum or Plasma 9.5 MG/DL 8.4 - 10.2 [facility] Bilirubin.total [Mass/volume] in Serum or Plasma 0.8 MG/DL 0.2 - 1.3 [facility] Alkaline phosphatase [Enzymatic activity/volume] in Serum or Plasma 107 U/L 38 - 126 [facility] Aspartate aminotransferase [Enzymatic activity/volume] in Serum or Plasma 18 U/L 5 - 40 [facility] Alanine aminotransferase [Enzymatic activity/volume] in Seru m or Plasma 24 U/L 7 - 56 [facility] Anion gap 3 in Serum or Plasma 10.0 mmol/L 8.0 - 16.0 [facility] AGE 29 yrs [facility] Hospit al NON-AA GFR >60 mL/min [facility] Hosp ital AFR AMER GFR >60 mL/min [facility] Ho spital Male GFR In [...] >32 mL/min Normal ID Date Data Source [id number] 11/06/2019 11:57:00 AM EST [facility] Name Value Range Interpretation Code Description Data Cecy rce(s) Supporting Document(s) CBC W/AUTOMATED DIFF [facility] COMPLETE BLOOD COUNT Leukocytes [#/volume] in Blood by Automated count 6.8 10^3/uL 4.2 - 1 1.0 [facility] Erythrocytes [#/volume] in Blood by Automated count 5.42 10^6/uL 4. 50 - 6.30 [facility] Hemoglobin [Mass/volume] in Blood 16.1 g/dL 14.0 - 16.0 H [facility] Hematocrit [Volume Fraction] of Blood by Automated count 47.4 % 4 1.0 - 51.0 [facility] Erythrocyte mean corpuscular volume [Entitic volume] by Auto mated count 87.5 fL 80.0 - 94.0 [facility] Erythrocyte mean corpuscular hemoglobin [Entitic mass] by Automated count 29.7 pg 27.0 - 34.0 [facility] Erythrocyte mean corpuscular hemoglobin concentration [Mass/volume] by Automated count 34.0 g/dL 31.0 - 36.0 [facility] Erythrocyte distribution width [Ratio] by Automated count 12.4 % 11.5 - 14.8 [facility] Platelets [#/volume] in Blood by Automated count 237 10^3/uL 150 - 45 0 [facility] Platelet mean volume [Entitic volume] in Blood by Automated count 9.5 fL 7.4 - 10.4 [facility] Neutrophils/100 leukocytes in Blood by Automated count 69.2 % 37. 0 - 80.0 [facility] Lymphocytes/100 leukocytes in Blood by Manual count 20.1 % 25.0 - 40.0 L [facility] Monocytes/100 leukocytes in Blood by Automated count 7.3 % 3.0 - 8.0 [facility] Eosinophils/100 leukocytes in Blood by Automated count 2.2 % 0.0 - 7.0 [facility] Basophils/100 leukocytes in Blood by Automated count 0.6 % 0.0 - 2.0 [facility] %IG 0.6 % 0.0 - 0.0 H [facility] Hospit al %NRBC 0.0 % 0.0 - 0.0 [facility] al Neutrophils [#/volume] in Blood by Automated count 4.73 10^3/uL 2.00 - 6.90 [facility] Lymphocytes [#/volume] in Blood by Automated count 1.37 10^3/uL 0.60 - 3.40 [facility] Monocytes [#/volume] in Blood by Automated count 0.50 10^3/uL 0.00 - 0.90 [facility] Eosinophils [#/volume] in Blood by Automated count 0.15 10^3/uL 0.00 - 0.70 [facility] Basophils [#/volume] in Blood by Automated count 0.04 10^3/uL 0.00 - 0.20 [facility] #IG 0.04 10^3/uL 0.00 - 0.10 [facility] #NRBC 0.00 10^3/uL 0.00 - 0.00 [facility] MANUAL DIFF NOT INDICATED [facility] RBC MORPH NOT INDICATED [facility] ID Date Data Source [id number] 11/06/2019 12:11:00 PM EST [facility] Name Value Range Interpretation Code Description Data Cecy rce(s) Supporting Document(s) Influenza virus A Ag [Presence] in Nasopharynx by Immunoassa y NEGATIVE NORMAL: NEGATIVE [facility] Influenza virus B Ag [Presence] in Nasopharynx by Immunoassa y NEGATIVE NORMAL: NEGATIVE [facility] NEGATIVENEGATIVE PROCEDURAL CO NTROL VALID KIT [...] other patient managementdecisions. ID Date Data Source [id number] 11/06/2019 11:55:00 AM EST [facility] Name Value Range Interpretation Code Description Data [facility] rce(s) Supporting Document(s) [facility] S[facility] R [facility] COLOR yellow NORMAL: Yellow [facility] ospital CLARITY clear NORMAL: Clear [facility] sp[facility] Specific gravity of Urine by Test strip 1.020 1.001 - 1.030 [facility] pH 7 5 - 9 [facility] Glucose [Mass/volume] in Urine by Test strip NORM NORMAL: Negat [facility] Bilirubin.total [Presence] in Urine by Test strip NEG NORMAL: Negative [facility] Ketones [Presence] in Urine by Test strip NEG NORMAL: Negative [facility] Protein [Mass/volume] in Urine by Test strip NEG NORMAL: Negat [facility] Nitrite [Presence] in Urine by Test strip NEG NORMAL: Negative [facility] BLOOD NEG NORMAL: Negative [facility] Leukocyte esterase [Presence] in Urine by Test strip NEG [place] L: Negative [facility] Urobilinogen [Mass/volume] in Urine by Test strip 4 less alida n 1.0 mg/dL [facility] MICROSCOPIC Not Indicate [facility] Procedure Social History Code Duration Value Status Description Data Source(s ) Smoking 11/17/2020 12:00:00 AM EST Smoker, current status unkn own completed Smoker, current status unknown [facility] Smoking 11/02/2020 12:00:00 AM EST Smoker, current status unkn own completed Smoker, current status unknown [facility]) Smoking 10/20/2020 12:00:00 AM EST Smoker, current status unkn own completed Smoker, current status unknown [facility]) Smoking 09/24/2020 12:00:00 AM EST Smoker, current status unkn own completed Smoker, current status unknown [facility]) Smoking 09/02/2020 12:00:00 AM EST Smoker, current status unkn own completed Smoker, current status unknown [facility]) Smoking 08/19/2020 12:00:00 AM EDT Smoker, current status unkn own completed Smoker, current status unknown [facility]) Smoking 08/18/2020 12:00:00 AM EDT Smoker, current status unkn own completed Smoker, current status unknown [facility]) Smoking 07/29/2020 12:00:00 AM EDT Smoker, current status unkn own completed Smoker, current status unknown [facility]) Smoking 07/22/2020 12:00:00 AM EDT Smoker, current status unkn own completed Smoker, current status unknown [facility]) Smoking 07/10/2020 12:00:00 AM EDT Smoker, current status unkn own completed Smoker, current status unknown [facility]) Smoking 04/13/2020 12:00:00 AM EDT Smoker, current status unkn own completed Smoker, current status unknown [facility]) Smoking 02/24/2020 12:00:00 AM EDT Smoker, current status unkn own completed Smoker, current status unknown [facility]) Smoking 02/19/2020 12:00:00 AM EDT Smoker, current status unkn own completed Smoker, current status unknown [facility]) Smoking 01/28/2020 12:00:00 AM EDT Smoker, current status unkn own completed Smoker, current status unknown [facility]) Smoking 01/10/2020 12:00:00 AM EDT Smoker, current status unkn own completed Smoker, current status unknown [facility]) Smoking 12/26/2019 12:00:00 AM EST Smoker, current status unkn own completed Smoker, current status unknown [facility]) Smoking 12/09/2019 12:00:00 AM EST Smoker, current status unkn own completed Smoker, current status unknown [facility]) Smoking 10/21/2019 12:00:00 AM EST Smoker, current status unkn own completed Smoker, current status unknown [facility])
[2020-12-09 19:04] LABS: ALBUMIN 4.3 GM/DL (3.2-5.2); ALT/SGPT 37 U/L (12-78); BILIRUBIN,DIRECT 0.2 MG/DL (0.0-0.2); BILIRUBIN,TOTAL 0.5 MG/DL (0.2-1.0); BLOOD UREA NITROGEN 17 MG/DL (7-18); CALCIUM LEVEL 9.6 MG/DL (8.5-10.1); CARBON DIOXIDE LEVEL 29 MEQ/L (21-32); CHLORIDE LEVEL 106 MEQ/L (98-107); CREATININE FOR GFR 0.95 MG/DL (0.70-1.30); GLOMERULAR FILTRATION RATE > 60.0 (>60); GLUCOSE, FASTING 100 MG/DL (70-100); POTASSIUM SERUM 4.2 MEQ/L (3.5-5.1); SALICYLATE LEVEL < 1.7 MG/DL (5.0-30.0); SODIUM LEVEL 141 MEQ/L (136-145); THYROID STIMULATING HORMONE 0.869 uIU/ML (0.358-3.740); TOTAL PROTEIN 7.2 GM/DL (6.4-8.2)
[2020-12-09 19:05] LABS: ACETAMINOPHEN LEVEL < 2.0 UG/ML (10.0-30.0); ETHYL ALCOHOL (ETHANOL) < 0.003 % (0.000-0.010)
[2020-12-09 19:15] LABS: AMPHETAMINES LEVEL URINE NEGATIVE (NEGATIVE); BARBITURATES URINE NEGATIVE (NEGATIVE); BENZODIAZEPINES URINE NEGATIVE (NEGATIVE); CANNABINOIDS URINE NEGATIVE (NEGATIVE); COCAINE METABOLITE URINE NEGATIVE (NEGATIVE); METHADONE URINE NEGATIVE (NEGATIVE); OPIATES URINE NEGATIVE (NEGATIVE); PHENCYCLIDINE URINE NEGATIVE (NEGATIVE)
== END 2020-12-09 21:15 | disposition home or self-care (01) ==
LOC: M ED 17:42
DX: F43.0 Acute stress reaction (principal); F31.9 Bipolar disorder, unspecified; F20.9 Schizophrenia, unspecified; Z79.899 Other long term (current) drug therapy; Z88.8 Allergy status to other drugs, medicaments and biological substances

== ENCOUNTER 2020-12-18 08:03 | Emergency (ER) | payer MEDICAID ==
--- OUTSIDE RECORDS SUMMARY | 2020-12-18 08:12 | CCD ---
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 Data Cecy rce(s) Supporting Document(s) ID Date Data Source [id number] 08/14/2020 07:17:00 PM EDT [facility] 1 General Instructions [facility] Emergency Department [address] [place] [address] Phone #: ext- [phone] 08/14/2020 19:09 Patient: CAMILO BUTTS Sex: M : 1990 Age: 29y Anxiety reaction. No hyperventilation.INSTRUCTIONS Warnings: GENERAL WARNINGS: Return or contact your physician immediately if your condition worsens or changes unexpectedly, if not improving as expected, or if other problems arise. Understanding of the discharge instructions verbalized by patient. Follow-up with: [facility], , , [address] [place] [address], [address] Follow up in one week. Call for [...] may experience: Dry mouth 2 General Instructions [facility] Emergency Department [address] [place] [address] Phone #: ext- [phone] 08/14/2020 19:09 Patient: [...] Also, there are certain 3 General Instructions [facility] Emergency Department [address] [place] [address] Phone #: ext- [phone] 08/14/2020 19:09 Patient: [...] andtemporary medicine to help you manage stress.Call [phone] if any of these happen: Trouble breathing [...] and mild pain reliever 4 General Instructions [facility] Emergency Department [address] [place] [address] Phone #: ext- [phone] 08/14/2020 19:09 Patient: CAMILO BUTTS Sex: M : 1990 Age: 29y [id number] [employer]. [address] [place] [address], [place] [address]. All rights reserved. This information is not intended as asubstitute for professional medical care. Always follow your healthcare professional's instructions. You have been given the following additional information: Anxiety Reaction(Electronically signed by Pedro Kim, 08/14/2020 20:15) Name Value Range Interpretation Code Description Data Cecy rce(s) Supporting Document(s) ID Date Data Source [id number] 08/14/2020 07:17:00 PM EDT [facility] 1 Clinical Report - Nurses [facility] Emergency Department [address] [place] [address] Phone #: ext- [phone] 08/14/2020 19:09 Patient: [...] no barriers. 2 Clinical Report - Nurses [facility] Emergency Department [address] [place] [address] Phone #: ext- [phone] 08/14/2020 19:09 Patient: CAMILO BUTTS Sex: M : 1990 Age: 29y FALL RISK ASSESSMENT: Fall risk assessment completed. No risk factors identified. SKIN INTEGRITY ASSESSMENT: Skin integrity risk assessment completed. No skin integrity risk identified. --19:30 08/14/20 Alfonso Buck R.N. FAMILY HX: No significant family medical history. --19:53 08/14/20 Pedro Kim.PHYSICAL RKFYKOVYFK20:35 08/14/20. Ambulatory to room.GENERAL / NEURO / [...] Patient verbalized understanding. Written instructions provided in Andorran. The patient was discharged home and unaccompanied at time of discharge. He left ambulatory and via taxi. 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 --20:04 08/14/20 Carito Barry R.N. 20:03 08/14/20. BP: 141/93. MAP: 109. HR: 81. RR: 16. O2 saturation: 98%. Temp: 97.9 F. Pain level now: 010. --20:04 08/14/20 Carito Barry R.N.Locked/Released at 08/14/2020 20:04 by Carito Barry R.N. Name Value Range Interpretation Code Description Data Cecy rce(s) Supporting Document(s) ID Date Data Source [id number] 08/14/2020 07:17:00 PM EDT [facility] 1 Clinical Report - Physicians/Mid Levels [facility] Emergency Department [address] [place] [address] Phone #: ext- [phone] 08/14/2020 19:09 Patient: [...] alone. 2 Clinical Report - Physicians/Mid Levels [facility] Emergency Department [address] [place] [address] Phone #: ext- [phone] 08/14/2020 19:09 Patient: [...] patient. 3 Clinical Report - Physicians/Mid Levels [facility] Emergency Department [address] [place] [address] Phone #: ext- [phone] 08/14/2020 19:09 Patient: CAMILO BUTTS Sex: M : 1990 Age: 29y Follow-up with: [facility], , , [address] [place] [address], [facility] Follow up in one week. Call for an appointment.(Electronically signed by Pedro Kim, 08/14/2020 20:15) Name Value Range Interpretation Code Description Data Cecy rce(s) Supporting Document(s) ID Date Data Source [id number] 05/04/2020 10:53:00 [place] [address] PHONE: [phone] FAX: [phone] Name .................. : BENJAMÍN Navarro Acct Number.................. : [id number] ROOM. ................. : TR-07 MR Number ................... : [id number] Stay type ............. : E/R Discharge Date......... ... : Admit Date ......... : 05/02/20 Admit Phys .................... : SAQIB PA Date of ....... : 1990 Family Phys ................... : NON STAFF Phone .................. : [phone] Age ................................ : 29 Film# .................. .:[id number] Sex ................................. : M Unsigned transcriptions are preliminary reports and do not represent a medical or legal document CT HEAD W/O CONTRAST [id number] COMPLETE:05/02/20 11:52 KBO 27156 Reason(s): Head Pain CT OF THE HEAD [...] rce(s) Supporting Document(s) ID Date Data Source [id number] 05/04/2020 10:53:00 [place] [address] PHONE: [phone] FAX: [phone] Name .................. : BENJAMÍN Navarro Acct Number.................. : [id number] ROOM. ................. : TR-07 MR Number ................... : [id number] Stay type ............. : E/R Discharge Date......... ... : Admit Date ......... : 05/02/20 Admit Phys .................... : SAQIB PA Date of ....... : 1990 Family Phys ................... : NON STAFF Phone .................. : [phone] Age ................................ : 29 Film# .................. .:[id number] Sex ................................. : M Unsigned transcriptions are preliminary reports and do not represent a medical or legal document CHEST PORTABLE [id number] COMPLETE:05/02/20 11:52 KBO 77886 Reason(s): seizure PORTABLE CHEST X-RAY: COMPARISON: 11/06/19 [...] rce(s) Supporting Document(s) ID Date Data Source [id number] 05/03/2020 01:07:00 [place] [address] RESPIRATORY CARE REPORT ==== ---------NAME------- NUMBER SEX AGE ADMIT DISC. XRAY# F/C JULIAN Navarro [id number] M 29 05/02/20 05/02/20 [id number] XBE E/R DATE OF : 1990 M/R# [id number] #: [phone] TR-07 LOCATION: EMERGENCY DEPT EKG 17365 COMPLE TE:05/02/20 14:[place] [address] PHYSICIAN: SAQIB HUGGINS CH Name Value Range Interpretation Code Description Data Cecy rce(s) Supporting Document(s) ID Date Data Source [id number] 05/02/2020 10:49:00 AM EDT [facility] 1 OrderSheet [facility] Emergency Department [address] [place] [address] Phone #: ext- [phone] 05/02/2020 10:49 Patient: [...] STAT 11:06 05/02/2020 11:14 Freddy 2 OrderSheet [facility] Emergency Department [address] [place] [address] Phone #: ext- [phone] 05/02/2020 10:49 Patient: CAMILO BUTTS Sex: M : 1990 Age: 29y(Oxygen?(No)) Francisco J Blanchard RN P.A.-C; NOTES: Seizure Reason for Study: Head PainChest 1 View STAT 11:06 05/02/2020 Initialed: 11:12 Francisco J LimaA.- Shaye(Oxygen?(No)) Francisco J Huggins Cancelled: Other 11:12 Francisco J LimaANorma; Parveen PBrittADerrek Cr Reason for Study: CoughChest Portable 1 [...] 05/02/2020 11:14 JanineyMonitor Francisco J Blanchard RN P.A.-C;Hand I Tube Bender 11:11 05/02/2020 11:14 Freddy(continuous) Francisco J Blanchard RN P.A.-C;NPO 11:11 05/02/2020 11:14 Freddy 3 OrderSheet [facility] Emergency Department [address] [place] [address] Phone #: ext- [phone] 05/02/2020 10:49 Patient: [...] rce(s) Supporting Document(s) ID Date Data Source [id number] 05/02/2020 10:49:00 AM EDT [facility] 1 Medication Reconciliation Report [facility] Emergency Department [address] [place] [address] Phone #: ext [phone] 05/02/2020 10:49 Patient: CAMILO BUTTS Sex: M [...] rce(s) Supporting Document(s) ID Date Data Source [id number] 05/02/2020 10:49:00 AM EDT [facility] 1 Medication Administration Record [facility] Emergency Department [address] [place] [address] Phone #: ext- [phone] 05/02/2020 10:49 Patient: CAMILO BUTTS Sex: M : 1990 Age: 29yWeight: 83.9 kgHeight/Length: 7 inBMI: 2678ALLERGIES: No Known Drug Allergy Date/Time Medication Administered Medication OrderedStart IV NS IV NS : Bolus 500 mL, then 7511:40 05/02/2020 Dose: IV Fluids mL/Enrico Blanchard RN Rate: 75 mL/hr over 5 hour(s)---- Bolus: 500 mL over 30 minute(s)Stop Dispensed: 1000 mL bag13:43 05/02/2020 Site: #1 left Manas Alexanderven TYLENOL [PO] (APAP) Tylenol 1 g PO X1 dose: 1000 mg12:44 05/02/2020 Dose: 1000 mg Tablets PO (NOW x1)Mae Pretty ATIVAN [PO] (LORAZEPAM) Ativan PO 1 mg12:44 05/02/2020 Dose: 1 mg Tablets Clyde Blanchard RN Name Value Range Interpretation Code Description Data Cecy rce(s) Supporting Document(s) ID Date Data Source [id number] 05/02/2020 10:49:00 AM EDT [facility] 1 General Instructions [facility] Emergency Department [address] [place] [address] Phone #: [phone] osq- [phone] 05/02/2020 10:49 Patient: CMAILO BUTTS Sex: M : 1990 Age: 29yGeneralized [...] discharge instructions verbalized by patient.Follow-up with: [facility], , [id number], [address] [place], [address] Follow up. Call for the next available [...] change to another medicine. 2 General Instructions [facility] Emergency Department [address] [place] [address] Phone #: ext- [phone] 05/02/2020 10:49 Patient: [...] and/or another type of 3 General Instructions [facility] Emergency Department [address] [place] [address] Phone #: ext- [phone] 05/02/2020 10:49 Patient: [...] Headache that gets worse 4 General Instructions [facility] Emergency Department [address] [place] [address] Phone #: ext- [phone] 05/02/2020 10:49 Patient: CAMILO BUTTS Sex: M : 1990 Age: 29y [phone] [employer]. [address] [place] [address]. All rights reserved. This information is not intended as asubstitute for professional medical care. Always follow your healthcare professional's instructions. You have been given the following additional information: Seizure, Recurrent (Adult) No driving or operating machinery until released.(Electronically signed by Francisco J Huggins P.A.-C 05/03/2020 10:57) Name Value Range Interpretation Code Description Data Cecy rce(s) Supporting Document(s) ID Date Data Source [id number] 05/02/2020 10:49:00 AM EDT [facility] 1 Clinical Report - Nurses [facility] Emergency Department [address] [place] [address] Phone #: ext- [phone] 05/02/2020 10:49 Patient: [...] trauma. Did not miss recentdose of anticonvulsant.Treatment SENIOR VISUAL DESIGNER:None.SEPSIS SCREEN: SIRS Screen negative. Sepsis Screen negative. [...] Known Drug Allergy. --10:56 05/02/20 Freddy Blanchard RN.Liygjka98:59 05/02/20.PAST MEDICAL HX: Seizures. No history of [...] no deficiencies. 2 Clinical Report - Nurses [facility] Emergency Department [address] [place] [address] Phone #: ext- [phone] 05/02/2020 10:49 Patient: [...] To room. --10:59 05/02/20 Freddy Blanchard RN.PHYSICAL [id number]:05/02/20. To room via stretcher.GENERAL / NEURO / [...] 05/02/20. Cardiac rhythm: normal sinus rhythm; (1050). monitor technician, NIBP monitor and pulse oximeter placed on patient; monitor technician- Lead II; monitor alarms on; monitor [...] at 75 3 Clinical Report - Nurses [facility] Emergency Department [address] [place] [address] Phone #: ext- [phone] 05/02/2020 10:49 Patient: CAMILO BUTTS A cct#: [id number] Sex: M : 1990 Age: 29ymL/hr over [...] the PA (1120). Patient transported to [facility] with nurse and technical report writer. (1130). Patient returned from CT by stretcher with nurse andradiology tech. (1135). --11:44 05/02/20 TODD Prettyeizudustin precautions maintained: side rails up x2 and padded, suction and O2 at bedside, patient in view of[employer] Pharm[employer]'s station and call abbasi in reach (1050). [...] Specimen labeled in the presenceof the patient (9531). --12:34 05/02/20 Freddy Blanchard RN12:44 05/02/2020 Tylenol [...] Blanchard RN 4 Clinical Report - Nurses [facility] Emergency Department [address] [place] [address] Phone #: ext- [phone] 05/02/2020 10:49 Patient: CAMILO BUTTS Sex: M : 1990 Age: 29y 13:34 05/02/2020 Tylenol PO Response: pain is improving. Symptoms have improved the patient feels better. Physician hardware sales assistant notified. --13:34 05/02/20 Freddy Blanchard RN 13:34 05/02/2020 Ativan PO Response: pain is improving. Symptoms have improved the patient feels better. Physician hardware sales assistant notified. --13:34 05/02/20 Freddy Blanchard RN 13:00 05/02/20. BP: 117/85. MAP: 95. HR: 72. O2 saturation: 96%. --13:34 05/02/20 Freddy Blanchadr RN. Intake Output 12:34 05/02/20. Urine output: [...] parent verbalized understanding. Written instructions provided in Andorran. The patient was discharged by the physician hardware sales assistant. He was discharged home and accompanied by parent. He left ambulatory and via private vehicle. Parent driving. --13:57 05/02/20 Freddy Blanchard RN 13:45 05/02/2020 Site #1 removed upon discharge. Catheter intact. Bandaid applied. --13:58 05/02/20 Freddy Blanchard RN.Locked/Released at 05/02/2020 16:59 by Freddy Blanchard RN Name Value Range Interpretation Code Description Data Cecy rce(s) Supporting Document(s) ID Date Data Source [id number] 05/02/2020 10:49:00 AM EDT [facility] 1 Clinical Report - Physicians/Mid Levels [facility] Emergency Department [address] [place] [address] Phone #: ext- [phone] 05/02/2020 10:49 Patient: CAMILO BUTTS Sex: M [...] tumor. See old chart. Problems: Insomnia [Chronic]. [place] disorder. Lifestyle / Substance Problems. Neurological Disease. Bipolar Disorder. Obsessive Compulsive Disorder. ADHD - Attention Deficit Hyperactivity Disorder. Seizure. Tendonitis. STD - Sexually Transmitted Disease. 2 Clinical Report - Physicians/Mid Levels [facility] Emergency Department [address] [place] [address] Phone #: ext- [phone] 05/02/2020 10:49 Patient: [...] 2+. 3 Clinical Report - Physicians/Mid Levels [facility] Emergency Department [address] [place] [address] Phone #: ext- [phone] 05/02/2020 10:49 Patient: CAMILO BUTTS Sex: M [...] O2? Oxygen?(No) Room: [place] [address] PHONE: [phone] FAX: [phone] Name .................. : BENJAMÍN Navarro Acct Number.................. : [id number] ROOM. ................. : [facility] MR Number ................... : [id number] Stay type ............. : E/R Discharge Date......... ... : Admit Date ......... : 05/02/20 Admit Phys .................... : SAQIB PA Date of ....... : 1990 Family Phys ................... : NON STAFF Phone .................. : [phone] Age ................................ : 29 Film# .................. .:[id number] Sex ................................. : M Unsigned transcriptions are preliminary reports and do not represent a medical or legal document [place] [id number] COMPLETE:05/02/20 11:52 KBO 99005 Reason(s): seizure 4 Clinical Report - Physicians/Mid Levels [facility] Emergency Department [address] [place] [address] Phone #: ext- [phone] 05/02/2020 10:49 Patient: CAMILO BUTTS Sex: M [...] NEGAT 5 Clinical Report - Physicians/Mid Levels [facility] Emergency Department [address] [place] [address] Phone #: ext- [phone] 05/02/2020 10:49 Patient: CAMILO BUTTS Sex: M [...] PRESUMPTIVE POSITIVE [facility]: (LULU: 05/02/2020 11:13) ( MsgRcvd 05/02/2020 [...] Male GFR Interprentation 20-49 yrs >60 mL/min Geanzu06-81 yrs >56 mL/min Normal 60-69 yrs >49 mL/min Normal 70-79yrs>42 mL/min Normal 80 and above >35 mL/min Normal Female GFRInterpretation 20-39 yrs >60 mL/min Normal 40-49 yrs >58 mL/minNormal 50-59 yrs >51 mL/min Normal 60-69 yrs >45 mL/min Rujbzf08-21 yrs >39 mL/min Normal 80 and above [...] 34.0) 6 Clinical Report - Physicians/Mid Levels [facility] Emergency Department [address] [place] [address] Phone #: ext- [phone] 05/02/2020 10:49 Patient: [...] MORPH NOT INDICATEDCPK: (LULU: 05/02/2020 11:13) ( [facility] 05/02/2020 11:44) Final results Test Result Flag Units (Reference) CPK 204 H U/L (30 - 170)Acetaminophen Level: (LULU: 05/02/2020 11:13) ( [facility] 05/02/2020 11:41) Final results Test Result Flag Units (Reference) ACETAMINOPHEN <5.0 UG/ML (0.0 - 30.0)Salicylate Level: (LULU: 05/02/2020 11:13) ( [facility] 05/02/2020 11:44) Final results Test Result Flag Units (Reference) SALICYLATE <0.3 L mg/dL (2.0 - 20.0)CT Head W/O Cont: (LULU: 05/02/2020 11:06) ( MsgRcvd 05/02/2020 12:26) In ProgressCT HEAD W/O CONTRASTReason(s): Head PainTRANSPORTATION: WC IV? O2? Oxygen?(No) Room: ED CMTS: Seizure Exam CT HEAD W/O CONTRAST [id number] [place] [address] PHONE: [phone] FAX: [phone] Name .................. : BENJAMÍN CAMILO Navarro Acct Number.................. : [id number] ROOM. ................. : TR-07 Number ................... : [id number] Stay type ............. : E/R Discharge Date......... ... : Admit Date ......... : 05/02/20 Admit Phys .................... : SAQIB HUMERA Date of ....... : 1990 Family Phys ................... : NON STAFF Phone .................. : [phone] Age ................................ : 29 Film# .................. .:[id number] Sex ................................. : M Unsigned transcriptions are preliminary reports and do not represent a medical or legal document CT HEAD W/O CONTRAST [id number] COMPLETE:05/02/20 11:52 KBO 62555 Reason(s): Head Pain 7 Clinical Report - Physicians/Mid Levels [facility] Emergency Department [address] [place] [address] Phone #: ext- [phone] 05/02/2020 10:49 Patient: [...] a 8 Clinical Report - Physicians/Mid Levels [facility] Emergency Department [address] [place] [address] Phone #: ext- [phone] 05/02/2020 10:49 Patient: [...] cause, 9 Clinical Report - Physicians/Mid Levels [facility] Emergency Department [address] [place] [address] Phone #: ext- [phone] 05/02/2020 10:49 Patient: [...] instructions verbalized by patient. Follow-up with: [facility], , [id number], [address] [place] [address], [address] Follow up. Call for the next available appointment. Reason for referral: evaluation and treatment.(Electronically signed by Francisco J Huggins P.A.-C 05/03/2020 10:57) Name Value Range Interpretation Code Description Data [facility] rce(s) Supporting Document(s) ID Date Data Source [id number] 05/02/2020 12:52:00 PM EDT [facility] Name Value Range Interpretation Code Description Data [facility] rc(s) Supporting Document(s) DRUG SCREEN URINE [facility] URINE DRUG SCREEN Amphetamine [Presence] in Urine by Screen method NEGATIVE NORMAL: N EGATIVE [facility] BARBITURATES NEGATIVE NORMAL: NEGATIVE [facility] BENZO NEGATIVE NORMAL: NEGATIVE [facility] COCAINE NEGATIVE NORMAL: NEGATIVE [facility] Tetrahydrocannabinol [Presence] in Urine NEGATIVE NORMAL: NEGATIVE [facility] OPIATES NEGATIVE NORMAL: NEGATIVE [facility] Phencyclidine [Presence] in Urine by Screen method NEGATIVE NOR MAL: NEGATIVE [facility] \\BLDo\\URINE DRUG SCR EEN INTERPRETATION\\BLDx\\ THE CUTOFFF LEVELS FOR DETECTION ARE FOLLOWS: AMPHETAMINES 1000 ng/ml BARBITUARATES 200 ng/ml BENZODIAZEPINES 100 ng/ml THC 50 ng/ml PHENCYCLIDINE 25 ng/ml OPIATES 300 ng/ml COCAINE 300 ng/ml ALL POSITIVES ARE CONSIDERED PRESUMPTIVE POSITIVE CONFIRMATION WILL BE PERFORMED AT PHYSICIAN REQUEST. ID Date Data Source [id number] 05/02/2020 12:52:00 PM EDT [facility] Name Value Range Interpretation Code Description Data [facility](s) Supporting Document(s) [facility] COLOR yellow NORMAL: Yellow [facility] CLARITY clear NORMAL: Clear [facility] Specific gravity of Urine by Test strip 1.020 1.001 - 1.030 [facility] pH 6 5 - 9 [facility] al Glucose [Mass/volume] in Urine by Test strip NORM NORMAL: Negat delia [facility] Bilirubin.total [Presence] in Urine by Test strip NEG NORMAL: Negative [facility] Ketones [Presence] in Urine by Test strip NEG NORMAL: Negative [facility] Protein [Mass/volume] in Urine by Test strip 15 NORMAL: Negat delia [facility] Nitrite [Presence] in Urine by Test strip NEG NORMAL: Negative [facility] BLOOD NEG NORMAL: Negative [facility] Leukocyte esterase [Presence] in Urine by Test strip NEG TRENTON L: Negative [facility] Urobilinogen [Mass/volume] in Urine by Test strip NOR less alida n 1.0 mg/dL [facility] MICROSCOPIC See Below [facility] ital WBC 0 - 1 NORMAL: NONE SEEN [facility] Erythrocytes [#/volume] in Urine by Test strip 0 - 1 NORMAL: NON E SEEN [facility] EPITHELIAL FEW NORMAL: NONE SEEN [facility] Bacteria [Presence] in Urine sediment by Light microscopy Tr mela NORMAL: NONE SEEN [facility] ID Date Data Source [id number] 05/06/2020 06:25:00 AM EDT [facility] Name Value Range Interpretation Code Description Data Cecy rce(s) Supporting Document(s) Prolactin [Mass/volume] in Serum or Plasma 12.7 ng/mL 4.0-15.2 [facility] ID Date Data Source [id number] 05/05/2020 08:12:[address] [facility] Value Range Interpretation Code Description Data Cecy rce(s) Supporting Document(s) Valproate [Mass/volume] in Serum or Plasma <4 ug/mL 50-100 L [facility] Verified by repeat analysis Detection Limit = 4 <4 indicates None Detected Toxicity may occur at levels of 100-500. Measurements of free unbound valproic acid may improve the assess- ment of clinical response. ID Date Data Source [id number] 05/02/2020 11:44:00 AM EDT [facility] Name Value Range Interpretation Code Description Data Cecy rce(s) Supporting Document(s) SALICYLATE <0.3 mg/dL 2.0 - 20.0 L [facility] ID Date Data Source [id number] 05/02/2020 11:44:00 AM EDT [facility] Name Value Range Interpretation Code Description Data Cecy rce(s) Supporting Document(s) Creatine kinase [Enzymatic activity/volume] in Serum or Plasma 2 04 U/L 30 - 170 H [facility] ID Date Data Source [id number] 05/02/2020 11:44:00 AM EDT [facility] Name Value Range Interpretation Code Description Data Cecy rce(s) Supporting Document(s) COMPREHENSIVE METABOLIC PANEL [facility] COMPREHENSIVE METABOLIC PANEL Sodium [Moles/volume] in Serum or Plasma 138 mEq/L 134 - 153 [facility] Potassium [Moles/volume] in Serum or Plasma 3.9 mEq/L 3.6 - 5.0 [facility] Chloride [Moles/volume] in Serum or Plasma 105 mEq/L 98 - 107 [facility] Carbon dioxide, total [Moles/volume] in Serum or Plasma 21 MEQ/L 22 - 30 L [facility] Glucose [Mass/volume] in Serum or Plasma 112 MG/DL 65 - 110 H [facility] BUN 10 MG/DL 7 - 21 [facility] al Creatinine [Mass/volume] in Serum or Plasma 0.6 MG/DL 0.7 - 1.5 L [facility] BUN/CREAT 17 8 - 27 [facility] al Protein [Mass/volume] in Serum or Plasma 6.6 G/DL 6.3 - 8.2 [facility] Albumin [Mass/volume] in Serum or Plasma 4.4 G/DL 3.9 - 5.0 [facility] Globulin [Mass/volume] in Serum by calculation 2.2 GM/DL 2.4 - 3.2 L [facility] A/G RATIO 2.0 0.8 - 2.0 [facility] Calcium [Mass/volume] in Serum or Plasma 8.7 MG/DL 8.4 - 10.2 [facility] Bilirubin.total [Mass/volume] in Serum or Plasma <0.7 MG/DL 0.2 - 1.3 [facility] Alkaline phosphatase [Enzymatic activity/volume] in Serum or Plasma 112 U/L 38 - 126 [facility] Aspartate aminotransferase [Enzymatic activity/volume] in Serum or Plasma 25 U/L 5 - 40 [facility] Alanine aminotransferase [Enzymatic activity/volume] in Seru m or Plasma 28 U/L 7 - 56 [facility] Anion gap 3 in Serum or Plasma 12.0 mmol/L 8.0 - 16.0 [facility] AGE 29 yrs [facility] NON-AA GFR >60 mL/min [facility] >32 mL/min Normal ID Date Data Source [id number] 05/02/2020 11:41:00 AM EDT [facility] Name Value Range Interpretation Code Description Data Cecy rce(s) Supporting Document(s) Acetaminophen [Presence] in Urine <5.0 UG/ML 0.0 - 30.0 [facility] ID Date Data Source [id number] 05/02/2020 11:40:00 AM EDT [facility] Name Value Range Interpretation Code Description Data Cecy rce(s) Supporting Document(s) CBC W/AUTOMATED DIFF [facility] COMPLETE BLOOD COUNT Leukocytes [#/volume] in Blood by Automated count 6.9 10^3/uL 4.2 - 1 1.0 [facility] Erythrocytes [#/volume] in Blood by Automated count 5.08 10^6/uL 4. 50 - 6.30 [facility] Hemoglobin [Mass/volume] in Blood 15.1 g/dL 14.0 - 16.0 [facility] Hematocrit [Volume Fraction] of Blood by Automated count 44.7 % 4 1.0 - 51.0 [facility] Erythrocyte mean corpuscular volume [Entitic volume] by Auto mated count 88.0 fL 80.0 - 94.0 [facility] Erythrocyte mean corpuscular hemoglobin [Entitic mass] by Automated count 29.7 pg 27.0 - 34.0 [facility] Erythrocyte mean corpuscular hemoglobin concentration [Mass/volume] by Automated count 33.8 g/dL 31.0 - 36.0 [facility] Erythrocyte distribution width [Ratio] by Automated count 12.4 % 11.5 - 14.8 [facility] Platelets [#/volume] in Blood by Automated count 255 10^3/uL 150 - 45 0 [facility] Platelet mean volume [Entitic volume] in Blood by Automated count 9.9 fL 7.4 - 10.4 [facility] Neutrophils/100 leukocytes in Blood by Automated count 74.4 % 37. 0 - 80.0 [facility] Lymphocytes/100 leukocytes in Blood by Manual count 14.6 % 25.0 - 40.0 L [facility] Monocytes/100 leukocytes in Blood by Automated count 7.5 % 3.0 - 8.0 [facility] Eosinophils/100 leukocytes in Blood by Automated count 1.9 % 0.0 - 7.0 [facility] Basophils/100 leukocytes in Blood by Automated count 0.6 % 0.0 - 2.0 [facility] %IG 1.0 % 0.0 - 0.0 H [facility] %NRBC 0.0 % 0.0 - 0.0 [facility] al Neutrophils [#/volume] in Blood by Automated count 5.15 10^3/uL 2.00 - 6.90 [facility] Lymphocytes [#/volume] in Blood by Automated count 1.01 10^3/uL 0.60 - 3.40 [facility] Monocytes [#/volume] in Blood by Automated count 0.52 10^3/uL 0.00 - 0.90 [facility] Eosinophils [#/volume] in Blood by Automated count 0.13 10^3/uL 0.00 - 0.70 [facility] Basophils [#/volume] in Blood by Automated count 0.04 10^3/uL 0.00 - 0.20 [facility] #IG 0.07 10^3/uL 0.00 - 0.10 [facility] #NRBC 0.00 10^3/uL 0.00 - 0.00 [facility] MANUAL DIFF NOT INDICATED [facility] RBC MORPH NOT INDICATED [facility] spital ID Date Data Source [id number] 12/11/2019 07:07:00 PM EST [facility] 1 OrderSheet [facility] Emergency Department [address] [place] [address] Phone #: ext- [phone] 12/11/2019 19:05 Patient: [...] rce(s) Supporting Document(s) ID Date Data Source [id number] 12/11/2019 07:07:00 PM [facility] 1 Medication Reconciliation Report [facility] Emergency Department [address] [place] [address] Phone #: ext- [phone] 12/11/2019 19:05 Patient: [...] Hospital(s) Supporting Document(s) ID Date Data Source [id number] 12/11/2019 07:07:00 PM [place] [address] Medication Administration Record [facility] Emergency Department [address] [place] [address] Phone #: ext- [phone] 19:05 Patient: CAMILO BUTTS Sex: M : 1990 Age: 29yWeight: 88.4 kgHeight/Length: 72 inBMI: 26.5ALLERGIES: No Known Drug AllergyDate/Time Medication Administered Medication Ordered Name Value Range Interpretation Code Description Data [facility](s) Supporting Document(s) ID Date Data Source [id number] 12/11/2019 07:07:00 PM EST [facility] 1 General Instructions [facility] Emergency Department [address] [place] [address] Phone #: ext- [phone] 12/11/2019 19:05 Patient: [...] positive, contact your healthcare provider, local clinic, [facility] to be treated, or return to our facility. You will be prescribed antibiotic medicine. Be sure to take all of the antibiotic as prescribed until it is gone or you are told to stop. Keep taking it even if you feel better. 2 General Instructions [facility] Emergency Department [address] [place], [place] [address] Phone #: ext [phone] 12/11/2019 19:05 [id number] Sex: M : 1990 Age: 29y Both [...] up with your provider or the public healthdepartment for complete STI screening, including HIV testing, and to consider ways to prevent HIV.For more information about STIs, call the CDC information line at 510-935-8717 or look at the CDCwebsite online.When to [...] p ain or scrotal swelling in men 3817-2619 [employer]. [address] [place] [address], [place] [address]. All rights reserved. This information is not intended as asubstitute for professional medical care. Always follow your healthcare professional's instructions. You have been given the following additional information: Testing for Suspected STI 3 General Instructions [facility] Emergency Department [address] [place] [address] Phone #: ext- [phone] 12/11/2019 19:05 Patient: CAMILO BUTTS Sex: M : 1990 Age: 29y(Electronically signed by HUMERA Kan 12/11/2019 21:47) Name Value Range Interpretation Code Description Data Cecy rce(s) Supporting Document(s) ID Date Data Source [id number] 12/11/2019 07:07:00 PM EST [facility] 1 Clinical Report - Nurses [facility] Emergency Department [address] [place] [address] Phone #: hfo- [phone] 12/11/2019 19:05 Patient: CAMILO BUTTS Sex: M : 1990 Age: 29yTRIAGEArrived by private vehicle. Historian: patient. Accompanied by (Dropped off by Medicaid cab).Triage time: 19:05 12/11/2019. Acuity: LEVEL 5.Chief Complaint: (Requests STD testing).Alert.This started today. ( Pt states "i would like to make sure i don't have no diseases". Pt denies anysymptoms;). ( Pt very vague during triage/angry/aggressvie).Treatment SENIOR VISUAL DESIGNER:None.SEPSIS SCREEN: NEGATIVE. Negative (no infection suspected/documented). (19:10 [...] and oral 2 Clinical Report - Nurses [facility] Department [address] [place] [address] Phone #: ext- [phone] 12/11/2019 19:05 Patient: [...] Hernandez R.N. 3 Clinical Report - Nurses [facility] Emergency Department [address] [place] [address] Phone #: ext- [phone] 12/11/2019 19:05 Patient: CAMILO BUTTS Sex: M : 1990 Age: 29yDISPOSITION / DISCHARGE Departure time: 19:56 12/11/2019. Condition at departure: stable. No learning barriers present. Reviewed warnings. Reviewed medication(s). Treatments reviewed. Reviewed referrals. Patient verbalized understanding. Written instructions provided in Andorran. The patient was discharged by the physician hardware sales assistant. He was discharged home and unaccompanied [...] rce(s) Supporting Document(s) ID Date Data Source [id number] 12/11/2019 07:07:00 PM EST [facility] 1 Clinical Report - Physicians/Mid Levels [facility] Emergency Department [address] [place] [address] Phone #: ext- [phone] 12/11/2019 19:05 Patient: [...] inspection. 2 Clinical Report - Physicians/Mid Levels [facility] Emergency Department [address] [place] [address] Phone #: ext- [phone] 12/11/2019 19:05 Patient: CAMILO BUTTS Sex: M [...] Testing).INSTRUCTIONS 3 Clinical Report - Physicians/Mid Levels [facility] Emergency Department [address] [place] [address] Phone #: ext- [phone] 12/11/2019 19:05 Patient: CAMILO BUTTS Sex: M [...] rce(s) Supporting Document(s) ID Date Data Source [id number] 12/13/2019 08:10:00 AM [facility] Name Value Range Interpretation Code Description Data Cecy rce(s) Supporting Document(s) HIV 1+2 Ab+HIV1 p24 Ag [Presence] in Serum or Plasma b y Immunoassay Non Reactive Non Reactive [facility] ID Date Data Source [id number] 12/11/2019 08:51:00 PM [facility] Name Value Range Interpretation Code Description Data Cecy rce(s) Supporting Document(s) Treponema pallidum Ab [Presence] in Serum NON-REACTIVE NORMAL:NON MELBA CTIVE [facility] ID Date Data Source [id number] 12/14/2019 06:49:00 PM [facility] Name Value Range Interpretation Code Description Data Cecy rce(s) Supporting Document(s) Chlamydia trachomatis rRNA [Presence] in Unspecified specimen by Probe and target amplification method Negative Negative [facility] Neisseria gonorrhoeae rRNA [Presence] in Unspecified specimen by Probe and target amplification method Negative Negative [facility] ID Date Data Source [id number] 12/11/2019 07:34:00 PM [facility] Name Value Range Interpretation Code Description Data Cecy rce(s) Supporting Document(s) URINALYSIS [facility] akanksha URINALYSIS SOURCE R [facility] COLOR yellow NORMAL: Yellow [facility] CLARITY clear NORMAL: Clear [facility] Specific gravity of Urine by Test strip 1.010 1.001 - 1.030 [facility] pH 6 5 - 9 [facility] Glucose [Mass/volume] in Urine by Test strip NORM NORMAL: Negat [facility] Bilirubin.total [Presence] in Urine by Test strip NEG NORMAL: Negative [facility] Ketones [Presence] in Urine by Test strip NEG NORMAL: Negative [facility] Protein [Mass/volume] in Urine by Test strip NEG NORMAL: Negat [facility] Nitrite [Presence] in Urine by Test strip NEG NORMAL: Negative [facility] BLOOD NEG NORMAL: Negative [facility] Leukocyte esterase [Presence] in Urine by Test strip NEG TRENTON L: Negative [facility] Urobilinogen [Mass/volume] in Urine by Test strip NOR less alida n 1.0 mg/dL [facility] MICROSCOPIC Not Indicate [facility] ID Date Data Source [id number] 11/07/2019 08:51:[address] [place] [address] RESPIRATORY CARE REPORT ==== ---------NAME------- NUMBER SEX AGE ADMIT DISC. XRAY# F/C JULIAN Navarro [id number] M 29 11/06/19 11/06/19 [id number] [id number] E/R DATE OF : 1990 M/R# [id number] PH#: [phone] TR-07 LOCATION: EMERGENCY DEPT EKG 56823 COMP LETE:11/07/19 03:07 T 44097 PHYSICIAN: SOLEDAD HUGGINS CH Name Value Range Interpretation Code Description Data Cecy rce(s) Supporting Document(s) ID Date Data Source [id number] 11/07/2019 04:06:[address] [place] [address] PHONE: [phone] FAX: [phone] Name .................. : BENJAMÍN Navarro Acct Number.................. : [id number] [facility]... : [id number] Stay type ............. : E/R Discharge Date......... ... : 11/06/19 Admit Date ......... : 11/06/19 Admit Phys .................... : ANUP Yue Date of ....... : 1990 Family Phys ................... : NON STAFF Phone .................. : [phone] Age ................................ : 29 Film# .................. .:[id number] Sex ................................. : M Unsigned transcriptions are preliminary reports and do not represent a medical or legal document CHEST 2 VIEWS [id number] COMPLETE:11/06/19 14:30 KBO [id number] Reason(s): transient lightheadedness; resolved CHEST X-RAY: 2- VIEWS INDICATION: Transient lightheadedness, which has now resolved. FINDINGS: The cardiac and mediastinal silhouettes appear normal and the lungs are clear. The bones and soft tissues are normal. The upper abdomen is unremarkable. IMPRESSION: No acute disease identifiable. Electronically Reviewed and Signed By Kevin Ponce M.D. , 11/07/19 16:06, VERONICAY Transcribe Initials: FIORELLA , Transcribe Date: 11/06/19 18:06, Dictation Date: Copy for: PARVEEN GALLAGHER via fax Copy for: EMERGENCY DEPT via modem Copy for: 710 MED REC DISCHARGED Page 1 of 1 Name Value Range Interpretation Code Description Data Cecy rce(s) Supporting Document(s) ID Date Data Source [id number] 11/06/2019 10:57:00 AM EST [facility] 1 OrderSheet [facility] Emergency Department [address] [place] [address] Phone #: ext- [phone] 11/06/2019 10:53 Patient: CAMILO BUTTS Sex: M : 1990 Age: 29yWEIGHT:87.2 kg (M) HEIGHT:69 inches (E) BMI:28.4ALLERGIES: No Known Drug AllergyLAB ORDERSOrder Description Priority Entered Acknowledged InitialedCBC w Diff STAT 11:11/06/2019 11:28 [place] Francisco J Huggins construction schedulerCornelio P.A.-C; Acpz0CQU STAT 11:11/06/2019 11:28 [place] Francisco J Huggins construction schedulerCornelio P.A.-C; [id number] (Clean STAT 11:11/06/2019 11:28 [facility]) Francisco J Huggins construction schedulerCornelio.A.-C; [id number] Nasal A B STAT 11:11/06/2019 11:50 Neida Strickland R.N.ABritt-C;HIV RNA Quant STAT 11:11/06/2019 11:43 [place] Francisco J Huggins construction schedulerCornelio.A.-C; Tech1 NOTES: ER HIV lab; pt requests. Need waiver signedDIAGNOSTIC STUDY ORDERSOrder Description Priority Entered Acknowledged InitialedChest 2 View STAT 11:57 11/06/2019 12:01 Em [place]ida(Oxygen?(No)) Francisco J Huggins R.N., P.A.-C; Reason for Study: transient lightheadedness; resolvedMEDICATION/IV/DRIP/FLUID ORDERSOrder Description Priority Entered Acknowledged InitialedIV NS : Bolus 500 11:22 11/06/2019 Cancelled: Patient Refusal 11:50 Em,mL, then 125 mL/hr Francisco J Carrasquillo R.N., P.A.-C;GENERAL ORDERSOrder Description Priority Entered Acknowledged InitialedNPO 11:22 11/06/2019 11:33 Neida Strickland R.N., P.A.-C; 2 OrderSheet [facility] Emergency Department [address] [place] [address] Phone #: [phone] 11/06/2019 10:53 Patient: CAMILO BUTTS Sex: M : 1990 Age: 29ySaline Lock 11:22 11/06/2019 Cancelled: Patient Refusal 11:50 Francisco J Strickland R.N.;EKG 11:11/06/2019 Ack'd: 11:30 11:43 Ruthann Huggins [place] construction scheduler, construction scheduler, Cornelio BENNETT P.A.-C; Cornelio BENNETT Tech1 Tech1[Electronically signed by Neida Strickland R.N. (13:11/06/2019)][Electronically signed by Francisco J Huggins P.A.-C (01:28 11/07/2019)][Electronically locked by Neida Strickland R.N. (13:03 11/06/2019)] Name Value Range Interpretation Code Description Data Cecy rce(s) Supporting Document(s) ID Date Data Source [id number] 11/06/2019 10:57:00 AM EST [facility] 1 Medication Reconciliation Report [facility] Emergency Department [address] [place] [address] Phone #: ext- [phone] 11/06/2019 10:53 Patient: [...] Name Value Range Interpretation Code Description Data [facility] Supporting Document(s) ID Date Data Source [id number] 11/06/2019 10:57:00 AM [facility] 1 Medication Administration Record [facility] Emergency Department [address] [place] [address] Phone #: ext- [phone] 10:53 Patient: CAMILO BUTTS Sex: M : 1990 Age: 29yWeight: 87.2 kgHeight/Length: 69 inBMI: 28.4ALLERGIES: No Known Drug AllergyDate/Time Medication Administered Medication Ordered Name Value Range Interpretation Code Description Data Cecy rce(s) Supporting Document(s) ID Date Data Source [id number] 11/06/2019 10:57:00 AM [facility] 1 General Instructions [facility] Emergency Department [address] [place] [address] Phone #: ext- [phone] 11/06/2019 10:53 Patient: [...] rce(s) Supporting Document(s) ID Date Data Source [id number] 11/06/2019 10:57:00 AM [facility] 1 Clinical Report - Nurses [facility] Emergency Department [address] [place] [address] Phone #: [phone] 11/06/2019 10:53 Patient: CAMILO BUTTS Sex: M [...] Temp: 97.1 F. Pain levelnow: 0/10. --10:57 11/06/19January, R.N.Weight: 87.2 kg measured. Height/Length: 69 inches Estimated. BMI: 28.4. --10:52 11/06/19January,R.N.MedicationsSEROquel Oral. --10:54 11/06/19January, R.N.AllergiesNo Known Drug Allergy. --10:54 11/06/19January, R.N.PROBLEMS:Ocd.Paranoid schizophrenia.Tbi. --10:56 11/06/19January, R.N.ADHD - Attention Deficit Hyperactivity Disorder. --11:20 11/06/19 Compa Logan.-CThe following entry was modified by Compa Logan.-C, 11:20 11/06/19ADHD - Attention Deficit Hyperactivity Disorder. --10:55 11/06/19January, R.N..ADDITIONAL SURGERIES:Brain surgery (Removed tumors). --10:56 11/06/19January, R.N.HistorySOCIAL HX: Never smoker. No alcohol use or drug use. He was offered HIV testing, accepted andwritten consent was obtained. He has not traveled outside the [place]Infectious disease exposure: No infectious disease exposure. Patient is not a known carrier of tuberculosis,hepatitis, HIV, MRSA or VRE. Patient is not a known carrier of CRE. 2 Clinical Report - Nurses [facility] Emergency Department [address] [place] [address] Phone #: ext- [phone] 11/06/2019 10:53 Patient: [...] skin integrity risk identified. --10:57 11/06/19 Neida Strickland, RBrittN. Interventions To treatment room. --10:57 11/06/19 Neida Strickland, RShirley.PHYSICAL ASSESSMENT( pt has several layers of [...] and shown to the PA. --11:43 11/06/19 [place] construction schedulerCornelio ER Tech1 11:40 11/06/19. Patient ID band checked for patient name and birthdate: patient confirmed. Flu swab obtained by RN via nasal swab. Labeled in the presence of the patient and sent to lab. --11:50 11/06/19 Neida Strickland R.N. 3 Clinical Report - Nurses [facility] Emergency Department [address] [place] [address] Phone #: ext- [phone] 11/06/2019 10:53 Patient: CAMILO BUTTS Sex: M : 1990 Age: 29y 11:45 11/06/19. ( blood drawn by lab scientist.). --11:51 11/06/19 Neida Strickland R.N. ( [...] he either has to come to the [facility] dept and sign them out or see a pcp and they will request results and discuss treatment if he is positive. pt verbalized understanding.). --13:03 11/06/19 Neida Strickland R.N.DISPOSITION / DISCHARGE 13:00 11/06/19. BP: 126/86. HR: 73. RR: 17. O2 saturation: 99%. Temp: 98.2 F. Pain level now 0/10. --13:00 11/06/19 [facility] Tech, Cornelio, DONALD Tech1 Condition at departure: improved and stable. No learning barriers present. Discharge instructions provided and reviewed with the patient. Patient verbalized understanding. Written instructions provided in Andorran. The patient was discharged by the physician hardware sales assistant. He was discharged home. He left ambulatory and via taxi. 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 --13:01 11/06/19 Neida Strickland R.N.Locked/Released at 11/06/2019 13:03 by Neida Strickland R.N. Name Value Range Interpretation Code Description Data Cecy rce(s) Supporting Document(s) ID Date Data Source [id number] 11/06/2019 10:57:00 AM EST [facility] 1 Clinical Report - Physicians/Mid Levels [facility] Emergency Department [address] [place] [address] Phone #: ext- [phone] 11/06/2019 10:53 Patient: [...] HISTORYSee nurses notes. Seizures. Problems: Insomnia [Chronic]. [place] disorder. Lifestyle / Substance Problems. Neurological Disease. Bipolar Disorder. ADHD - Attention Deficit Hyperactivity Disorder. Other Disease. Seizure Disorder. Tendonitis. Tension-Type Headache. Obsessive Compulsive Disorder. Ocd. Paranoid schizophrenia. Tbi. 2 Clinical Report - Physicians/Mid [facility] Emergency Department [address] [place] [address] Phone #: ext- [phone] 11/06/2019 10:53 Patient: [...] normal. 3 Clinical Report - Physicians/Mid Levels [facility] Emergency Department [address] [place] [address] Phone #: ext- [phone] 11/06/2019 10:53 Patient: CAMILO BUTTS Sex: M [...] 70-79yrs 4 Clinical Report - Physicians/Mid Levels [facility] Emergency Department [address] [place] [address] Phone #: ext- [phone] 11/06/2019 10:53 Patient: CAMILO BUTTS Sex: M : 1990 Age: 29y >42 mL/min Normal 80 and above >35 mL/min Normal Female GFR Interpretation 20-39 yrs >60 mL/min Normal 40-49 yrs >58 mL/min Normal 50-59 yrs >51 mL/min Normal 60-69 yrs >45 mL/min Normal 70-79 yrs >39 mL/min Normal 80 and above >32 mL/min Normal Urinalysis: ([facility]: 11/06/2019 11:18) ( [facility] 11/06/[facility] 11:55) Final results Test Result Flag [...] Nasal A B: ([facility]: 11/06/2019 11:35) ( [facility] 11/06/[place] 12:11) Final results Test Result Flag Units (Reference) INFLUENZA A NEGATIVE (NORMAL: NEGAT INFLUENZA B NEGATIVE (NORMAL: NEGAT INFLUENZA A REENTER NEGATIVE (NORMAL: NEGAT INFLUENZA B REENTER NEGATIVE (NORMAL: NEGAT PROCEDURAL CONTROL VALID KIT LOT # _[id number] 11/06/19.121. . KIT EXP DATE _07.16.20 11/06/19.1210. .The Influenza A utilizin g an isothermal nucleic acid amplification technology for thequalitative detection of influenza A and B viral RNA.Negative results do not preclude influenza virus infection and should not beused as the sole basis for diagnosis, treatment or other patient managementdecisions. HIV RNA Quant: (LULU: 11/06/2019 11:22) ( [facility] 11/06/2019 11:30) Canceled [...] results. 5 Clinical Report - Physicians/Mid Levels [facility] Emergency Department [address] [place] [address] Phone #: ext- [phone] 11/06/2019 10:53 Patient: CAMILO BUTTS Sex: M [...] patient. 6 Clinical Report - Physicians/Mid Levels [facility] Emergency Department [address] [place] [address] Phone #: ext- [phone] 11/06/2019 10:53 Patient: CAMILO BUTTS Sex: M : 1990 Age: 29y(Electronically signed by Francisco J Huggins P.A.-C 11/07/2019 01:28) Name Value Range Interpretation Code Description Data Cecy rce(s) Supporting Document(s) ID Date Data Source [id number] 11/07/2019 10:12:00 AM [facility] Name Value Range Interpretation Code Description Data Cecy rce(s) Supporting Document(s) HIV 1+2 Ab+HIV1 p24 Ag [Presence] in Serum or Plasma b y Immunoassay Non Reactive Non Reactive [facility] ID Date Data Source [id number] 11/06/2019 12:10:00 PM [facility] Name Value Range Interpretation Code Description Data Cecy rce(s) Supporting Document(s) COMPREHENSIVE METABOLIC PANEL [facility] COMPREHENSIVE METABOLIC PANEL Sodium [Moles/volume] in Serum or Plasma 141 mEq/L 134 - 153 [facility] Potassium [Moles/volume] in Serum or Plasma 4.0 mEq/L 3.6 - 5.0 [facility] Chloride [Moles/volume] in Serum or Plasma 105 mEq/L 98 - 107 [facility] Carbon dioxide, total [Moles/volume] in Serum or Plasma 26 MEQ/L 22 - 30 [facility] Glucose [Mass/volume] in Serum or Plasma 98 MG/DL 65 - 110 [facility] BUN 17 MG/DL 7 - 21 [facility] al Creatinine [Mass/volume] in Serum or Plasma 0.7 MG/DL 0.7 - 1.5 [facility] BUN/CREAT 24 8 - 27 [facility] Protein [Mass/volume] in Serum or Plasma 6.7 G/DL 6.3 - 8.2 [facility] Albumin [Mass/volume] in Serum or Plasma 4.3 G/DL 3.9 - 5.0 [facility] Globulin [Mass/volume] in Serum by calculation 2.4 GM/DL 2.4 - 3.2 [facility] A/G RATIO 1.8 0.8 - 2.0 [facility] Calcium [Mass/volume] in Serum or Plasma 9.5 MG/DL 8.4 - 10.2 [facility] Bilirubin.total [Mass/volume] in Serum or Plasma 0.8 MG/DL 0.2 - 1.3 [facility] Alkaline phosphatase [Enzymatic activity/volume] in Serum or Plasma 107 U/L 38 - 126 [facility] Aspartate aminotransferase [Enzymatic activity/volume] in Serum or Plasma 18 U/L 5 - 40 [facility] Alanine aminotransferase [Enzymatic activity/volume] in Seru m or Plasma 24 U/L 7 - 56 [facility] Anion gap 3 in Serum or Plasma 10.0 mmol/L 8.0 - 16.0 [facility] AGE 29 yrs [facility] al NON-AA GFR >60 mL/min [facility] ital AFR AMER GFR >60 [...] >32 mL/min Normal ID Date Data Source [id number] 11/06/2019 11:57:00 AM EST [facility] Name Value Range Interpretation Code Description Data Cecy rce(s) Supporting Document(s) CBC W/AUTOMATED DIFF [facility] COMPLETE BLOOD COUNT Leukocytes [#/volume] in Blood by Automated count 6.8 10^3/uL 4.2 - 1 1.0 [facility] Erythrocytes [#/volume] in Blood by Automated count 5.42 10^6/uL 4. 50 - 6.30 [facility] Hemoglobin [Mass/volume] in Blood 16.1 g/dL 14.0 - 16.0 H [facility] Hematocrit [Volume Fraction] of Blood by Automated count 47.4 % 4 1.0 - 51.0 [facility] Erythrocyte mean corpuscular volume [Entitic volume] by Auto mated count 87.5 fL 80.0 - 94.0 [facility] Erythrocyte mean corpuscular hemoglobin [Entitic mass] by Automated count 29.7 pg 27.0 - 34.0 [facility] Erythrocyte mean corpuscular hemoglobin concentration [Mass/volume] by Automated count 34.0 g/dL 31.0 - 36.0 [facility] Erythrocyte distribution width [Ratio] by Automated count 12.4 % 11.5 - 14.8 [facility] Platelets [#/volume] in Blood by Automated count 237 10^3/uL 150 - 45 0 [facility] Platelet mean volume [Entitic volume] in Blood by Automated count 9.5 fL 7.4 - 10.4 [facility] Neutrophils/100 leukocytes in Blood by Automated count 69.2 % 37. 0 - 80.0 [facility] Lymphocytes/100 leukocytes in Blood by Manual count 20.1 % 25.0 - 40.0 L [facility] Monocytes/100 leukocytes in Blood by Automated count 7.3 % 3.0 - 8.0 [facility] Eosinophils/100 leukocytes in Blood by Automated count 2.2 % 0.0 - 7.0 [facility] Basophils/100 leukocytes in Blood by Automated count 0.6 % 0.0 - 2.0 [facility] %IG 0.6 % 0.0 - 0.0 H [facility] %NRBC 0.0 % 0.0 - 0.0 [facility] al Neutrophils [#/volume] in Blood by Automated count 4.73 10^3/uL 2.00 - 6.90 [facility] Lymphocytes [#/volume] in Blood by Automated count 1.37 10^3/uL 0.60 - 3.40 [facility] Monocytes [#/volume] in Blood by Automated count 0.50 10^3/uL 0.00 - 0.90 [facility] Eosinophils [#/volume] in Blood by Automated count 0.15 10^3/uL 0.00 - 0.70 [facility] Basophils [#/volume] in Blood by Automated count 0.04 10^3/uL 0.00 - 0.20 [facility] #IG 0.04 10^3/uL 0.00 - 0.10 [facility] #NRBC 0.00 10^3/uL 0.00 - 0.00 [facility] MANUAL DIFF NOT INDICATED [facility] RBC MORPH NOT INDICATED [facility] spital ID Date Data Source [id number] 11/06/2019 12:11:00 PM EST [facility] Name Value Range Interpretation Code Description Data Cecy rce(s) Supporting Document(s) Influenza virus A Ag [Presence] in Nasopharynx by Immunoassa y NEGATIVE NORMAL: NEGATIVE [facility] Influenza virus B Ag [Presence] in Nasopharynx by Immunoassa y NEGATIVE NORMAL: NEGATIVE [facility] NEGATIVENEGATIVE PROCEDURAL CO NTROL VALID KIT LOT # _[id number] 11/06/19.1211. . KIT EXP DATE _07.16.20 11/06/19.121 .The Influenza A & B assay is a rapid molecular in vitro diagnostic testutilizing an isothermal nucleic acid amplification technology for thequalitative detection of influenza A and B viral RNA.Negative results do not preclude influenza virus infection and should not beused as the sole basis for diagnosis, treatment or other patient managementdecisions. ID Date Data Source [id number] 11/06/2019 11:55:00 AM EST [facility] Name Value Range Interpretation Code Description Data Cecy rce(s) Supporting Document(s) [facility] COL[facility] yellow NORMAL: Yellow [facility] CLARITY clear NORMAL: Clear [facility] Specific gravity of Urine by Test strip 1.020 1.001 - 1.030 [facility] pH 7 5 - 9 [facility] al Glucose [Mass/volume] in Urine by Test strip NORM NORMAL: Negat [facility] Bilirubin.total [Presence] in Urine by Test strip NEG NORMAL: Negative [facility] Ketones [Presence] in Urine by Test strip NEG NORMAL: Negative [facility] Protein [Mass/volume] in Urine by Test strip NEG NORMAL: Negat [facility] Nitrite [Presence] in Urine by Test strip NEG NORMAL: Negative [facility] BLOOD NEG NORMAL: Negative [facility] Leukocyte esterase [Presence] in Urine by Test strip NEG [place] L: Negative [facility] Urobilinogen [Mass/volume] in Urine by Test strip 4 less alida n 1.0 mg/dL [facility] MICROSCOPIC Not Indicate [facility] Procedure Social History Code Duration Value Status Description Data Source(s ) Smoking 11/17/2020 12:00:00 AM EST Smoker, current status unkn own completed Smoker, current status unknown [facility]) Smoking 11/02/2020 12:00:00 AM EST Smoker, current status unkn own completed Smoker, current status unknown [facility] ([facility]) Smoking 10/20/2020 12:00:00 AM EST Smoker, current status unkn own completed Smoker, current status unknown [facility] ([facility]) Smoking 09/24/2020 12:00:00 AM EST Smoker, current status unkn own completed Smoker, current status unknown [facility] ([facility]) Smoking 09/02/2020 12:00:00 AM EST Smoker, current status unkn own completed Smoker, current status unknown [facility] ([facility]) Smoking 08/19/2020 12:00:00 AM EDT Smoker, current status unkn own completed Smoker, current status unknown [facility] ([facility]) Smoking 08/18/2020 12:00:00 AM EDT Smoker, current status unkn own completed Smoker, current status unknown [facility] ([facility]) Smoking 07/29/2020 12:00:00 AM EDT Smoker, current status unkn own completed Smoker, current status unknown [facility] ([facility]) Smoking 07/22/2020 12:00:00 AM EDT Smoker, current status unkn own completed Smoker, current status unknown [facility] ([facility]) Smoking 07/10/2020 12:00:00 AM EDT Smoker, current status unkn own completed Smoker, current status unknown [facility] ([facility]) Smoking 04/13/2020 12:00:00 AM EDT Smoker, current status unkn own completed Smoker, current status unknown [facility] ([facility]) Smoking 02/24/2020 12:00:00 AM EDT Smoker, current status unkn own completed Smoker, current status unknown [facility] ([facility]) Smoking 02/19/2020 12:00:00 AM EDT Smoker, current status unkn own completed Smoker, current status unknown [facility] ([facility]) Smoking 01/28/2020 12:00:00 AM EDT Smoker, current status unkn own completed Smoker, current status unknown [facility] ([facility]) Smoking 01/10/2020 12:00:00 AM EDT Smoker, current status unkn own completed Smoker, current status unknown [facility] ([facility]) Smoking 12/26/2019 12:00:00 AM EST Smoker, current status unkn own completed Smoker, current status unknown [facility] ([facility]) Smoking 12/09/2019 12:00:00 AM EST Smoker, current status unkn own completed Smoker, current status unknown [facility] ([facility]) Smoking 10/21/2019 12:00:00 AM EST Smoker, current status unkn own completed Smoker, current status unknown [facility])
[2020-12-18] MEDS ORDERED: LORazepam 2 MG TAB PO PRN (08:20)
[2020-12-18 08:24] VITALS: BP 128/74
--- OUTSIDE RECORDS SUMMARY | 2020-12-18 08:46 | CCD ---
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 understand why people kill themselves because life is so hard. States that he can see ghosts and that the Devil is trying to kill him. Getting loud using curse words. Pt redirected and encouraged to try to rest.). --20:23 12/17/20 Karrie Connelly Clinical Report - Nurses [facility] Emergency Department [address] [place] [address] Phone #: ext- [phone] 12/17/2020 17:48 Patient: CAMILO LAWSON Sex: M : 1990 Age: 30yKatelynReassurance given.Rounding: Pain: denies pain. Position: states comfortable. Personal care / toileting: denies toileting needs.Proximity of possessions / care items: call light within easy reach. Plug ins: assured IV pump plugged in;checked status of equipment in use; located all cords, tubes, and lines to prevent fall hazard. --20:5612/17/20 Desi Connellyn20:58 12/17/20. BP: 129/85. MAP: 99. HR: 77. RR: 16. O2 saturation: 97%. --20:58 12/17/20 Peggy Beckwith R.N.21:15 12/17/2020 HALDOL (Haloperidol Lactate) IVP 5 mg given over 1 minute(s) via site #1. Allergiesverified and confirmed 5 rights. IV patency established. IV site checked: no pain, redness, or swelling. IVflushed thoroughly pre- and post-medication administration. IVP given by RN. Information reviewed withpatient including reason for taking this medication, signs of allergic reaction, precautions and sedativewarning. Verbalizes understanding. --21:15 12/17/20 GodwinKristin2:12/17/20. The patient is sleeping.RESPIRATORY: No respiratory distress.SKIN: Skin is warm and dry. --04:02 12/18/20 Peggy Chapin R.N.00:02 12/18/20. The patient is resting quietly. Overall patient status is improved. ( Per Provider, let ptsleep. Plan is to re-draw ETOH at 4am to proceed with sending pt to [facility] (which is where pt wants to go)for Psych Eval).RESPIRATORY: No respiratory distress.SKIN: Skin is warm and dry. --04:03 12/18/20 Peggy Chapin R.N.01:03 12/18/20. ( No changes noted pt quiet, resting on stretcher in ED room 7. Curtain open for frequentobservation by staff.). --04:05 12/18/20 Peggy Chapin R.N.03:05 12/18/20. ( pt up out of bed, sipping on water. gait steady, speech clear. Pt provided addionalcup of water per request and settled back to sleep.). --04:06 12/18/20 Peggy Chapin R.N.Checked patient name and birthdate: patient confirmed. Blood samples drawn from the left antecubitalspace peripheral IV site with Vacutainer by nurse: larisa go. (Repeat EKG). --04:08 12/18/20 Peggy Beckwith R.N.04:00 12/18/20. BP: 120/73. MAP: 88. HR: 96. RR: 16. O2 saturation: 98%. Temp: 98 F. Pain level now:0/10. --04:08 12/18/20 Peggy Chapin R.N.( chart faxed to [facility]). --04:40 12/18/20 Peggy Chapin R.N.The patient is sleeping. --04:40 12/18/20 Peggy Chapin R.N. 5 Clinical Report - Nurses [facility] Emergency Department [address] [place] [address] Phone #: ext- [phone] 12/17/2020 17:48 Patient: CAMILO LAWSON Sex: M : 1990 Age: 30y ( Call placed to Stefania at [facility] to confirm receipt of faxed chart. Chart faxed again to [phone] per request.). --04:59 12/18/20 Peggy Chapin R.N. The patient is sleeping. Overall patient status is improved. RESPIRATORY: No respiratory distress. SKIN: Skin is warm and dry. --04:59 12/18/20 Peggy Chapin R.N. ( Call placed to [facility], who verified that they did receive the fax, this time. Awaiting call back.). --05:21 12/18/20 Peggy Chapin R.N. The patient is sleeping. ( Call placed to [facility] [employer] at [phone]. Stefania states that Dr Sandra has not had a chance to look at the paperwork yet.). --05:55 12/18/20 Peggy Chapin R.N. ( 0615 no changes. Pt sleeping at long periods.). --06:48 12/18/20 Peggy Chapin R.N. ( 0715 pt resting on right side awaiting transfer t [facility], pt stating feeling antsy but feeling a lot better than last night). --07:19 12/18/20 Freddy Blanchard RN.DISPOSITION / DISCHARGE Report was given to a nurse via a phone call. Report was acknowledged. (Phuong Doe RN). --06:29 12/18/20 Peggy Chapin R.N. 06:29 12/18/2020 Site #1 removed upon transfer. --06:29 12/18/20 Peggy Chapin R.N. Condition at departure: stable. Transferred to [facility]. Visit overview, summary of care (CCDA), Emtala forms and Face Sheet provided to EMS and transfer facility via paper and digital media (ED For Psych Eval). --06:30 12/18/20 Peggy Chapin R.N. ( 0640 CARS phoned regarding transport. They state that they will send a BLS crew when the day shift gets in (at 7am) Transfer forms underway. 9.[address] Kim. Call placed to Cee Lawson, pt's family contact.). --06:48 12/18/20 Peggy Chapin R.N. 06:48 12/18/20. BP: 118/80. MAP: 92. HR: 96. RR: 16. O2 saturation: 96%. Temp: 97.1 F. Pain level now: 0/10. --06:49 12/18/20 Peggy Chapin R.N. Departure time: 07:12/18/2020. --07:25 12/18/20 Freddy Blanchard RN 07:20 12/18/20. BP: 116/80. MAP: 92. HR: 98. RR: 18. O2 saturation: 98% on room air. Temp: 97.2 F (oral). Pain level now: 0/10. --07:25 12/18/20 Freddy Blanchard RN. 6 Clinical Report - Nurses [facility] Emergency Department [address] [place] [address] Phone #: ext- [phone] 12/17/2020 17:48 Patient: CAMILO LAWSON Sex: M : 1990 Age: 30yLocked/Released at 12/18/2020 08:38 by Freddy Blanchard RN Name Value Range Interpretation Code Description Data Cecy rce(s) Supporting Document(s) ID Date Data Source [id number] 12/17/2020 05:55:00 PM EST [facility] 1 Clinical Report - Physicians/Mid Levels [facility] Emergency Department [address] [place] [address] Phone #: ext- [phone] 12/17/2020 17:48 Patient: CAMILO LAWSON Sex: M : 1990 Age: 30y Time Seen: 18:17 12/17/2020. Arrived- By ambulance. Historian- patient and EMS personnel. History limited by psychosis and intoxication. Disposition decision: 06:32 12/18/2020.HISTORY OF PRESENT ILLNESS Chief Complaint: DEPRESSION. REQUEST FOR LEGAL BLOOD ALCOHOL CHECK. ( Patient found on stairs with alcohol intoxication). This started today and is still present. Modifying factors. Not worsened by anything. No loss of appetite, headache, visual disturbance or fatigue. Denies sleep problem. No decreased urine output. (Patient admitted to drinking 3 four locos today. He states it helps his stress. Police found him sitting at bottom of stairs on premises where he lives alone. Denies any injury, headache, vomiting. He currently complains of depression and is not sure why they brought him to ED). Similar symptoms previously. Patient has had similar symptoms many times. Recent medical care: The patient was seen recently in the emergency department.REVIEW OF SYSTEMSNo fever, sinus drainage, chest pain or pain or vomiting. No diarrhea, difficulty with urination, back pain orhead injury. No difficulty with ambulation. He has had depression. All other systems reviewed and arenegative.PAST HISTORYSee nurses notes. Problems: Bipolar Disorder. Tension-Type Headache. Obsessive Compulsive Disorder. Anxiety Reaction. Seizure. Schizophrenia. Nephrolithiasis. Additional Surgeries: Brain surgery. Craniotomy. Medications: SEROquel Oral (Tablet 300 mg), daily. 2 Clinical Report - Physicians/Mid Levels [facility] Emergency Department [address] [place] [address] Phone #: ext- [phone] 12/17/2020 17:48 Patient: CAMILO LAWSON Sex: M : 1990 Age: 30y Allergies: None.SOCIAL HISTORYCurrent some days smoker. Alcohol use. No recent travel.FAMILY HISTORYUnable to obtain family medical history (alcohol intoxication).ADDITIONAL NOTESThe nursing notes have been reviewed.PHYSICAL EXAMVital Signs: 12/17/2020 17:51 BP: 160/112. MAP: 128. HR: 80. RR: 17. O2 saturation: 95%. Temp: 98 F.Pain level now: 0/10.Appearance: Alert. No acute distress. Alert.Eyes: Pupils equal, round and reactive to light. Eyes normal inspection. (sclera injected).ENT: Ears normal. Nose normal. Pharynx normal. (alcohol noted on his breath).Neck: Normal inspection. Neck supple.CVS: Normal heart rate and rhythm. Heart sounds normal.Abdomen: No visible injury. Soft. No organomegaly.Back: Normal inspection.Skin: Skin warm and dry. Normal skin color. Normal skin turgor.Extremities: No lower extremity edema.Neuro: Oriented X 3. No cranial nerve deficit. No motor deficit. No sensory deficit. (no ataxia.horizontal nystagmus.).Psych: (euphoric). Speech is abnormal. The patient exhibits altered thought processes, verbalized asloose associations and non-sensical thoughts. He does not appear to understand his illness.LABS, X-RAYS, AND EKGEKG: EKG time: 20:23 12/17/2020. No acute process. No acute ischemia. Normal sinus rhythm.Rate: 78. Normal P waves. Normal ANGELA. Normal QRS complex. Normal axis. Normal ST and Twaves and QT. The study has been interpreted contemporaneously by me. Interpretation time: :.Laboratory Tests: ETOH: (LULU: 12/18/2020 03:50) ( [facility] 12/18/2020 04:32) Final results Test Result Flag Units (Reference) ALCOHOL 100.0 MG/DL ALCOHOL % 0.10 H % (0.00 - 0.01) *FOR MEDICAL PURPOSES ONLY* Chest Portable 1 View: (LULU: 12/17/2020 20:14) ( [facility] 12/17/2020 23:41) In Progress Exam CHEST PORTABLE [facility] 3 Clinical Report - Physicians/Mid Levels [facility] Emergency Department [address] [place] [address] Phone #: ext- [phone] 12/17/2020 17:48 Patient: CAMILO LAWSON Sex: M : 1990 Age: 30y [address] [place] [address] PHONE: [phone] FAX: [phone] Name .................. : BENJAMÍN Navarro Acct Number.................. : [id number] ROOM. ................. : TR-07 MR Number ................... : [id number] Stay type ............. : E/R Discharge Date......... ... : Admit Date ......... : 12/17/20 Admit Phys .................... : JUDY Cr Date of ....... : 1990 Family Phys ................... : NON STAFF Phone .................. : [phone] Age ................................ : 30 Film# .................. .:[id number] Sex ................................. : M Unsigned transcriptions are preliminary reports and do not represent a medical or legal document CHEST PORTABLE [id number] COMPLETE:12/17/20 20:14 5122 Reason(s): [facility] PORTABLE CHEST X-RAY: INDICATION: Altered mental status. FINDINGS: The cardiac and mediastinal silhouettes appear normal and the lungs are clear. The bones and soft tissues are normal. The upper abdomen is unremarkable. IMPRESSION: No acute disease identifiable. Electronically Reviewed and Signed By CHERYL ESTEVEZ NHY Transcribe Initials: FIORELLA , Transcribe Date: 12/17/20 21:54, Dictation Date: <<REPDIST>> Page 1of 1Urinalysis: (LULU: 12/17/2020 19:25) ( MsgRcvd 12/17/2020 20:23) Final results Test Result Flag Units (Reference) URINALYSIS URINALYSIS SOURCE R COLOR yellow (NORMAL: Yello CLARITY clear (NORMAL: Clear SPEC GRAVITY 1.010 (1.001 - 1.030 pH 7 (5 - 9) GLUCOSE NORM (NORMAL: Negat BILIRUBIN NEG (NORMAL: Negat KETONE NEG (NORMAL: Negat PROTEIN NEG (NORMAL: Negat NITRITE NEG (NORMAL: Negat 4 Clinical Report - Physicians/Mid Levels [facility] Emergency Department [address] [place] [address] Phone #: ivp- [phone] 12/17/2020 17:48 Patient: CAMILO LAWSON Sex: M : 1990 Age: 30y BLOOD NEG (NORMAL: Negat LEUK EST NEG (NORMAL: Negat UROBILINOGEN NOR (less than 1.0 MICROSCOPIC Not IndicateAcetaminophen Level: (LULU: 12/17/2020 19:20) ( MsgRcvd 12/17/2020 20:10) Final results Test Result Flag Units (Reference) ACETAMINOPHEN <5.0 UG/ML (0.0 - 30.0)BMP: (LULU: 12/17/2020 19:20) ( MsgRcvd 12/17/2020 20:10) Final results Test Result Flag Units (Reference) BASIC METABOLIC PANEL BASIC METABOLIC PANEL SODIUM 142 mEq/L (134 - 153) POTASSIUM 3.3 L mEq/L (3.6 - 5.0) CHLORIDE 104 mEq/L (98 - 107) CO2 28 MEQ/L (22 - 30) GLUCOSE 91 MG/DL (70 - 99) BUN 5 L MG/DL (7 - 21) CREATININE 0.6 L MG/DL (0.7 - 1.5) BUN/CREAT 8 (8 - 27) CALCIUM 9.0 MG/DL (8.4 - 10.2) ANION GAP 10.0 mmol/L (8.0 - 16.0) AGE 30 yrs AFR AMER GFR >60 mL/min NON-AA GFR >60 mL/min Male GFR Interprentation 20-49 yrs >60 mL/min Fsjltb12-97 yrs >56 mL/min Normal 60-69 yrs >49 mL/min Normal 70-79yrs>42 mL/min Normal 80 and above >35 mL/min Normal Female GFRInterpretation 20-39 yrs >60 mL/min Normal 40-49 yrs >58 mL/minNormal 50-59 yrs >51 mL/min Normal 60-69 yrs >45 mL/min Oeecgs94-79 yrs >39 mL/min Normal 80 and above >32 mL/min NormalCBC w Diff: (LULU: 12/17/2020 19:20) ( MsgRcvd 12/17/2020 19:34) Final results Test Result Flag Units (Reference) CBC W/AUTOMATED DIFF COMPLETE BLOOD COUNT WBC 5.9 10/uL (4.2 - 11.0) RBC 5.71 10/uL (4.50 - 6.30) HEMOGLOBIN 18.0 H g/dL (14.0 - 16.0) HEMATOCRIT 50.9 % (41.0 - 51.0) MCV 89.1 fL (80.0 - 94.0) MCH 31.5 pg (27.0 - 34.0) MCHC 35.4 g/dL (31.0 - 36.0) RDW 12.6 % (11.5 - 14.8) PLATELETS 304 10/uL (150 - 450) MPV 9.2 fL (7.4 - 10.4) NEUT 46.7 % (37.0 - 80.0) LYMPH 43.1 H % (25.0 - 40.0) MONO 7.3 % (3.0 - 8.0) EOS 1.5 % (0.0 - 7.0) BASO 0.7 % (0.0 - 2.0) %IG 0.7 H % (0.0 - 0.0) %NRBC 0.0 % (0.0 - 0.0) #NEUT 2.75 10/uL (2.00 - 6.90) #LYMPH 2.54 10/uL (0.60 - 3.40) 5 Clinical Report - Physicians/Mid Levels [facility] Emergency Department [address] [place] [address] Phone #: ext- [phone] 12/17/2020 17:48 Patient: CAMILO LAWSON Sex: M : 1990 Age: 30y #MONO 0.43 10/uL (0.00 - 0.90) #EOS 0.09 10/uL (0.00 - 0.70) #BASO 0.04 10/uL (0.00 - 0.20) #IG 0.04 10/uL ( 0.00 - 0.10) #NRBC 0.00 10/uL (0.00 - 0.00) MANUAL DIFF NOT INDICATED RBC MORPH NOT INDICATEDSalicylate Level: (LULU: 12/17/2020 19:20) ( [facility] 12/17/2020 20:10) Final results Test Result Flag Units (Reference) SALICYLATE <0.3 L mg/dL (2.0 - 20.0)ETOH: (LULU: 12/17/2020 19:20) ( [facility] 12/17/2020 20:10) Final results Test Result Flag Units (Reference) ALCOHOL 265.0 MG/DL ALCOHOL % 0.27 H % (0.00 - 0.01) *FOR MEDICAL PURPOSES ONLY*TSH: (LULU: 12/17/2020 19:20) ( [facility] 12/17/2020 20:23) Final results Test Result Flag Units (Reference) TSH 0.47 uIU/mL (0.47 - 5.01)Drug Screen-Urine: (LULU: 12/17/2020 19:25) ( [facility] 12/17/2020 19:59) Final results Test Result Flag Units (Reference) [...] PRESUMPTIVE POSITIVE CONFIRMATION WILL BE PERFORMED [facility].COVID-19 CAH: (LULU: 12/17/2020 19:20) ( [facility] 12/17/2020 19:49) Final results Test Result Flag Units (Reference) COVID-19 NOT DETECTED COVID-19 REENTER NOT DETECTED { PROCEDURAL CONTROL VALID KIT LOT # [id number] 12/17/20.JOVANNA. KIT EXP DATE _[id number] 45/25/21.JOVANNA. NORMAL RANGE IS NOT DETECTEDNEGATIVE RESULTS SHOULD BE TREATEDAS PRESUMPTIVE AND, IF INCONSISTENT WITHCLINICAL SIGNS AND SYMPTOMS OR NECESSARY FOR PATIENT MANAGEMENT, SHOULDBETESTED WITH DIFFERENT AUTHORIZED OR CLEARED MOLECULAR TESTS. NEGATIVE RESULTSDO NOT PRECLUDE [id number] AND SHOULD NOT BE USED THE SOLE BASISFOR PATIENT MANAGEMENT DECISIONS. 6 Clinical Report - Physicians/Mid Levels [facility] Emergency Department [address] [place] [address] Phone #: ext- [phone] 12/17/2020 17:48 [id number] Sex: M : 1990 Age: 30y.PROGRESS AND PROCEDURESCourse of Care: 18:47 12/17/20. Patient ambulatory without difficulty. No obvious injuries. He denies anyself injury. He currently has no complaints. 20:21 12/17/20. Patient is acting erratic. reporting feeling depressed. 06:36 12/18/20. Patient awake and requesting to go to [facility]. "Send me to [facility] or send me home" Patient's case discussed with ED physician at [facility] who is familiar with the patient. Dr. Sandra agrees to accept to patient to the ED. 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, associated with schizophrenia.(Electronically signed by Pedro Kim 12/18/2020 06:44) Name Value Range Interpretation Code Description Data Ceyc rce(s) Supporting Document(s) ID Date Data Source [id number] 12/18/2020 04:31:00 AM EST [facility] Name Value Range Interpretation Code Description Data Cecy rce(s) Supporting Document(s) Ethanol [Moles/volume] in Blood 100.0 MG/DL [facility] ALCOHOL % 0.10 % 0.00 - 0.01 H [facility] *FOR MEDICAL PURPOSES ONLY * ID Date Data Source [id number] 12/17/2020 08:23:00 PM EST [facility] Name Value Range Interpretation Code Description Data Cecy rce(s) Supporting Document(s) URINALYSIS [facility] akanksha URINALYSIS SOURCE R [facility] COLOR yellow NORMAL: Yellow [facility] CLARITY clear NORMAL: Clear [facility] Specific gravity of Urine by Test strip 1.010 1.001 - 1.030 [facility] 7 5 - 9 [facility] Glucose [Mass/volume] in Urine by Test strip NORM NORMAL: Negat [facility] Bilirubin.total [Presence] in Urine by Test strip NEG NORMAL: Negative [facility] Ketones [Presence] in Urine by Test strip NEG NORMAL: Negative [facility] Protein [Mass/volume] in Urine by Test strip NEG NORMAL: Negat [facility] Nitrite [Presence] in Urine by Test strip NEG NORMAL: Negative [facility] BLOOD NEG NORMAL: Negative [facility] Leukocyte esterase [Presence] in Urine by Test strip NEG [place] L: Negative [facility] Urobilinogen [Mass/volume] in Urine by Test strip NOR less alida n 1.0 mg/dL [facility] MICROSCOPIC Not Indicate [facility] ospital ID Date Data Source [id number] 12/17/2020 07:58:00 PM EST [facility] Name Value Range Interpretation Code Description Data Cecy rce(s) Supporting Document(s) DRUG SCREEN URINE [facility] URINE DRUG SCREEN Amphetamine [Presence] in Urine by Screen method NEGATIVE NORMAL: N EGATIVE [facility] BARBITURATES NEGATIVE NORMAL: NEGATIVE [facility] BENZO NEGATIVE NORMAL: NEGATIVE [facility] COCAINE NEGATIVE NORMAL: NEGATIVE [facility] Tetrahydrocannabinol [Presence] in Urine NEGATIVE NORMAL: NEGATIVE [facility] OPIATES NEGATIVE NORMAL: NEGATIVE [facility] Phencyclidine [Presence] in Urine by Screen method NEGATIVE NOR MAL: NEGATIVE [facility] \\BLDo\\URINE DRUG SCR EEN INTERPRETATION\\BLDx\\ THE CUTOFFF LEVELS FOR DETECTION ARE FOLLOWS: AMPHETAMINES 1000 ng/ml BARBITUARATES 200 ng/ml BENZODIAZEPINES 100 ng/ml THC 50 ng/ml PHENCYCLIDINE 25 ng/ml OPIATES 300 ng/ml COCAINE 300 ng/ml ALL POSITIVES ARE CONSIDERED PRESUMPTIVE POSITIVE CONFIRMATION WILL BE PERFORMED AT PHYSICIAN REQUEST. ID Date Data Source [id number] 12/17/2020 08:23:00 PM [facility] Name Value Range Interpretation Code Description Data Cecy rce(s) Supporting Document(s) Thyrotropin [Units/volume] in Serum or Plasma by Detec tion limit <= 0.05 mIU/L 0.47 uIU/mL 0.47 - 5.01 [facility] ID Date Data Source [id number] 12/17/2020 08:10:00 PM EST [facility] Name Value Range Interpretation Code Description Data Cecy rce(s) Supporting Document(s) Ethanol [Moles/volume] in Blood 265.0 MG/DL [facility] ALCOHOL % 0.27 % 0.00 - 0.01 H [facility] *FOR MEDICAL PURPOSES ONLY * ID Date Data Source [id number] 12/17/2020 08:10:00 PM EST [facility] Name Value Range Interpretation Code Description Data Cecy rce(s) Supporting Document(s) BASIC METABOLIC PANEL [facility] BASIC METABOLIC PANEL Sodium [Moles/volume] in Serum or Plasma 142 mEq/L 134 - 153 [facility] Potassium [Moles/volume] in Serum or Plasma 3.3 mEq/L 3.6 - 5.0 L [facility] Chloride [Moles/volume] in Serum or Plasma 104 mEq/L 98 - 107 [facility] Carbon dioxide, total [Moles/volume] in Serum or Plasma 28 MEQ/L 22 - 30 [facility] Glucose [Mass/volume] in Serum or Plasma 91 MG/DL 70 - 99 [facility] BUN 5 MG/DL 7 - 21 L [facility] Creatinine [Mass/volume] in Serum or Plasma 0.6 MG/DL 0.7 - 1.5 L [facility] BUN/CREAT 8 8 - 27 [facility] Calcium [Mass/volume] in Serum or Plasma 9.0 MG/DL 8.4 - 10.2 [facility] Anion gap 3 in Serum or Plasma 10.0 mmol/L 8.0 - 16.0 [facility] AGE 30 yrs [facility] AFR AMER GFR >60 mL/min [facility] NON-AA GFR >60 mL/min [facility] ital Male GFR Inter prentation 20-49 [...] >32 mL/min Normal ID Date Data Source [id number] 12/17/2020 08:10:00 PM [facility] Name Value Range Interpretation Code Description Data Cecy rce(s) Supporting Document(s) SALICYLATE <0.3 mg/dL 2.0 - 20.0 L [facility] ID Date Data Source [id number] 12/17/2020 08:10:00 PM [facility] Name Value Range Interpretation Code Description Data [facility] Supporting Document(s) Acetaminophen [Presence] in Urine <5.0 UG/ML 0.0 - 30.0 [facility] ID Date Data Source [id number] 12/17/2020 07:48:00 PM [facility] NOT DETECTEDNOT DETECTED{ PROC EDURAL CONTROL VALID KIT LOT # [id number] 12/17/20.JOVANNA. KIT EXP DATE _[id number] 12/17/20.JOVANNA. NORMAL RANGE IS NOT DETECTEDNEGATIVE RESULTS [...] rce(s) Supporting Document(s) ID Date Data Source [id number] 12/17/2020 07:34:00 PM [facility] Name Value Range Interpretation Code Description Data [facility] Supporting Document(s) CBC W/AUTOMATED DIFF [facility] COMPLETE BLOOD COUNT Leukocytes [#/volume] in Blood by Automated count 5.9 10^3/uL 4.2 - 1 1.0 [facility] Erythrocytes [#/volume] in Blood by Automated count 5.71 10^6/uL 4. 50 - 6.30 [facility] Hemoglobin [Mass/volume] in Blood 18.0 g/dL 14.0 - 16.0 H [facility] Hematocrit [Volume Fraction] of Blood by Automated count 50.9 % 4 1.0 - 51.0 [facility] Erythrocyte mean corpuscular volume [Entitic volume] by Auto mated count 89.1 fL 80.0 - 94.0 [facility] Erythrocyte mean corpuscular hemoglobin [Entitic mass] by Automated count 31.5 pg 27.0 - 34.0 [facility] Erythrocyte mean corpuscular hemoglobin concentration [Mass/volume] by Automated count 35.4 g/dL 31.0 - 36.0 [facility] Erythrocyte distribution width [Ratio] by Automated count 12.6 % 11.5 - 14.8 [facility] Platelets [#/volume] in Blood by Automated count 304 10^3/uL 150 - 45 0 [facility] Platelet mean volume [Entitic volume] in Blood by Automated count 9.2 fL 7.4 - 10.4 [facility] Neutrophils/100 leukocytes in Blood by Automated count 46.7 % 37. 0 - 80.0 [facility] Lymphocytes/100 leukocytes in Blood by Manual count 43.1 % 25.0 - 40.0 H [facility] Monocytes/100 leukocytes in Blood by Automated count 7.3 % 3.0 - 8.0 [facility] Eosinophils/100 leukocytes in Blood by Automated count 1.5 % 0.0 - 7.0 [facility] Basophils/100 leukocytes in Blood by Automated count 0.7 % 0.0 - 2.0 [facility] %IG 0.7 % 0.0 - 0.0 [facility] 0.[facility] % 0.0 - 0.0 [facility] al Neutrophils [#/volume] in Blood by Automated count 2.75 10^3/uL 2.00 - 6.90 [facility] Lymphocytes [#/volume] in Blood by Automated count 2.54 10^3/uL 0.60 - 3.40 [facility] Monocytes [#/volume] in Blood by Automated count 0.43 10^3/uL 0.00 - 0.90 [facility] Eosinophils [#/volume] in Blood by Automated count 0.09 10^3/uL 0.00 - 0.70 [facility] Basophils [#/volume] in Blood by Automated count 0.04 10^3/uL 0.00 - 0.20 [facility] #IG 0.04 10^3/uL 0.00 - 0.10 [facility] #NRBC 0.00 10^3/uL 0.00 - 0.00 [facility] MANUAL DIFF NOT INDICATED [facility] RBC MORPH NOT INDICATED [facility] spital ID Date Data Source [id number] 11/19/2020 06:01:00 [place] [address] RESPIRATORY CARE REPORT ==== ---------NAME------- NUMBER SEX AGE ADMIT DISC. XRAY# F/C JULIAN WADESHUA Ramon [id number] 30 11/17/20 11/18/20 [id number] XBE E/R DATE OF : 1990 M/R# [id number] #: [id number] TR-03 LOCATION: EMERGENCY DEPT EKG 42403 COMP LETE:11/18/20 01:52 T 40402 PHYSICIAN: JUDY Cr Name Value Range Interpretation Code Description Data Cecy rce(s) Supporting Document(s) ID Date Data Source [id number] 11/17/2020 10:05:00 PM EST [facility] 1 OrderSheet [facility] Emergency Department [address] [place] [address] Phone #: ext- [phone] 11/17/2020 22:04 [id number] Sex: M : 1990 Age: 30yWEIGHT:83.9 kg HEIGHT:70 inches BMI:26.5ALLERGIES: No Known Drug AllergyCHIEF COMPLAINT: depressed, anxious, agitated, angryDIAGNOSIS: Depressive disorder, Bipolar disorderLAB ORDERSOrder Description Priority Entered Acknowledged InitialedCBC w Diff STAT 22:11/17/2020 22:32 Judy Dorado Jack ; Shweta Trujillo.CMP STAT 22:11/17/2020 22:32 Judy Dorado Jack ; Shweta R.Vira.TSH STAT 22:11/17/2020 22:32 Judy Dorado Jack ; Shweta Lawson.Vira.Acetaminophen STAT 22:11/17/2020 22:32 Lexi Dorado Jack ; Shweta MayerSalicylate Level STAT 22:11/17/2020 22:32 Judy Dorado Jack ; Shweta Lawson.Vira.ETOH STAT 22:11/17/2020 22:32 Judy Dorado Jack ; Shweta Lawson.WaiDrug Screen-Urine STAT 22:11/17/2020 22:32 Judy Dorado Jack ; Shweta MayerCOVID-19 CAH (Not STAT 23:55 11/17/2020 00:27 11/18/2020ymptomatic as Pedro Kim ; Shweta Dorado R.N.Defined by CDC)(11/17/2020) (NotFirst Test) (NotHospitalized) (Not) (NotResident inCongregate CareSetting) (NotEmployed inHealthcare Setting)DIAGNOSTIC STUDY ORDERSOrder Desc ription Priority Entered Acknowledged InitialedMEDICATION/IV/DRIP/FLUID ORDERS 2 OrderSheet [facility] Emergency Department [address] [place] [address] Phone #: ext- [phone] 11/17/2020 22:04 Patient: CAMILO LAWSON Sex: M : 1990 Age: 30yOrder Description Priority Entered Acknowledged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 the [...] prior toexamination. Exam has been sent to [facility] - If further informationis needed, the [...] Value Range Interpretation Code Description Data [facility] rce(s) Supporting Document(s) ID Date Data Source [id number] 09/06/2020 09:10:00 PM EST [facility] Name Value Range Interpretation Code Description Data [facility](s) Supporting Document(s) DRUG SCREEN URINE [facility] URINE DRUG SCREEN Amphetamine [Presence] in Urine by Screen method NEGATIVE NORMAL: N EGATIVE [facility] BARBITURATES NEGATIVE NORMAL: NEGATIVE [facility] BENZO NEGATIVE NORMAL: NEGATIVE [facility] COCAINE NEGATIVE NORMAL: NEGATIVE [facility] Tetrahydrocannabinol [Presence] in Urine NEGATIVE NORMAL: NEGATIVE [facility] OPIATES NEGATIVE NORMAL: NEGATIVE [facility] Phencyclidine [Presence] in Urine by Screen method NEGATIVE NOR MAL: NEGATIVE [facility] \\BLDo\\URINE DRUG SCR EEN INTERPRETATION\\BLDx\\ THE CUTOFFF LEVELS FOR DETECTION ARE FOLLOWS: AMPHETAMINES 1000 ng/ml BARBITUARATES 200 ng/ml BENZODIAZEPINES 100 ng/ml THC 50 ng/ml PHENCYCLIDINE 25 ng/ml OPIATES 300 ng/ml COCAINE 300 ng/ml ALL POSITIVES ARE CONSIDERED PRESUMPTIVE POSITIVE CONFIRMATION WILL BE PERFORMED AT PHYSICIAN REQUEST. ID Date Data Source [id number] 09/06/2020 08:53:00 PM EST [facility] Name Value Range Interpretation Code Description Data Cecy rce(s) Supporting Document(s) [facility]ALYS[facility] SOURCE R [facility] al COLOR yellow NORMAL: Yellow [facility] ospital CLARITY clear NORMAL: Clear [facility] spital Specific gravity of Urine by Test strip 1.010 1.001 - 1.030 [facility] pH 7 5 - 9 [facility] Glucose [Mass/volume] in Urine by Test strip NORM NORMAL: Negat [facility] Bilirubin.total [Presence] in Urine by Test strip NEG NORMAL: Negative [facility] Ketones [Presence] in Urine by Test strip NEG NORMAL: Negative [facility] Protein [Mass/volume] in Urine by Test strip NEG NORMAL: Negat [facility] Nitrite [Presence] in Urine by Test strip NEG NORMAL: Negative [facility] BLOOD NEG NORMAL: Negative [facility] Leukocyte esterase [Presence] in Urine by Test strip NEG [place] L: Negative [facility] Urobilinogen [Mass/volume] in Urine by Test strip NOR less alida n 1.0 mg/dL [facility] MICROSCOPIC Not Indicate [facility] ospital ID Date Data Source [id number] 09/06/2020 08:43:00 PM [facility] Name Value Range Interpretation Code Description Data Cecy rce(s) Supporting Document(s) COMPREHENSIVE METABOLIC PANEL [facility] COMPREHENSIVE METABOLIC PANEL Sodium [Moles/volume] in Serum or Plasma 138 mEq/L 134 - 153 [facility] Potassium [Moles/volume] in Serum or Plasma 4.0 mEq/L 3.6 - 5.0 [facility] Chloride [Moles/volume] in Serum or Plasma 103 mEq/L 98 - 107 [facility] Carbon dioxide, total [Moles/volume] in Serum or Plasma 26 MEQ/L 22 - 30 [facility] Glucose [Mass/volume] in Serum or Plasma 93 MG/DL 65 - 110 [facility] BUN 6 MG/DL 7 - 21 L [facility] Creatinine [Mass/volume] in Serum or Plasma 0.5 MG/DL 0.7 - 1.5 L [facility] BUN/CREAT 12 8 - 27 [facility] Protein [Mass/volume] in Serum or Plasma 7.0 G/DL 6.3 - 8.2 [facility] Albumin [Mass/volume] in Serum or Plasma 4.9 G/DL 3.9 - 5.0 [facility] Globulin [Mass/volume] in Serum by calculation 2.1 GM/DL 2.4 - 3.2 L [facility] A/G RATIO 2.3 0.8 - 2.0 H [facility] Calcium [Mass/volume] in Serum or Plasma 10.0 MG/DL 8.4 - 10.2 [facility] Bilirubin.total [Mass/volume] in Serum or Plasma <0.7 MG/DL 0.2 - 1.3 [facility] Alkaline phosphatase [Enzymatic activity/volume] in Serum or Plasma 135 U/L 38 - 126 H [facility] Aspartate aminotransferase [Enzymatic activity/volume] in Serum or Plasma 24 U/L 5 - 40 [facility] Alanine aminotransferase [Enzymatic activity/volume] in Seru m or Plasma 28 U/L 7 - 56 [facility] Anion gap 3 in Serum or Plasma 9.0 mmol/L 8.0 - 16.0 [facility] AGE 29 yrs [facility] al NON-AA GFR >60 mL/min [facility] ital AFR AMER GFR >60 mL/min [facility] spital Male GFR In [...] >32 mL/min Normal ID Date Data Source [id number] 09/06/2020 08:43:00 PM [facility] Name Value Range Interpretation Code Description Data Cecy rce(s) Supporting Document(s) SALICYLATE <0.3 mg/dL 2.0 - 20.0 L [facility] pital ID Date Data Source [id number] 09/06/2020 08:39:00 PM [facility] Name Value Range Interpretation Code Description Data Cecy rce(s) Supporting Document(s) Lipase [Enzymatic activity/volume] in Serum or Plasma 38 U/L 13 - 60 [facility] ID Date Data Source [id number] 09/06/2020 08:39:00 PM [facility] Name Value Range Interpretation Code Description Data Cecy rce(s) Supporting Document(s) Ethanol [Moles/volume] in Blood <10.0 MG/DL [facility] ALCOHOL % 0.01 % 0.00 - 0.01 [facility] Hosp ital *FOR MEDICAL PURPOSES ONLY * ID Date Data Source [id number] 09/06/2020 08:39:00 PM [facility] Name Value Range Interpretation Code Description Data Cecy rce(s) Supporting Document(s) Acetaminophen [Presence] in Urine <5.0 UG/ML 0.0 - 30.0 [facility] ID Date Data Source [id number] 09/06/2020 08:14:00 PM [facility] Name Value Range Interpretation Code Description Data Cecy rce(s) Supporting Document(s) CBC W/AUTOMATED DIFF [facility] COMPLETE BLOOD COUNT Leukocytes [#/volume] in Blood by Automated count 9.2 10^3/uL 4.2 - 1 1.0 [facility] Erythrocytes [#/volume] in Blood by Automated count 5.24 10^6/uL 4. 50 - 6.30 [facility] Hemoglobin [Mass/volume] in Blood 15.8 g/dL 14.0 - 16.0 [facility] Hematocrit [Volume Fraction] of Blood by Automated count 45.8 % 4 1.0 - 51.0 [facility] Erythrocyte mean corpuscular volume [Entitic volume] by Auto mated count 87.4 fL 80.0 - 94.0 [facility] Erythrocyte mean corpuscular hemoglobin [Entitic mass] by Automated count 30.2 pg 27.0 - 34.0 [facility] Erythrocyte mean corpuscular hemoglobin concentration [Mass/volume] by Automated count 34.5 g/dL 31.0 - 36.0 [facility] Erythrocyte distribution width [Ratio] by Automated count 12.7 % 11.5 - 14.8 [facility] Platelets [#/volume] in Blood by Automated count 318 10^3/uL 150 - 45 0 [facility] Platelet mean volume [Entitic volume] in Blood by Automated count 9.5 fL 7.4 - 10.4 [facility] Neutrophils/100 leukocytes in Blood by Automated count 63.9 % 37. 0 - 80.0 [facility] Lymphocytes/100 leukocytes in Blood by Manual count 26.6 % 25.0 - 40.0 [facility] Monocytes/100 leukocytes in Blood by Automated count 6.8 % 3.0 - 8.0 [facility] Eosinophils/100 leukocytes in Blood by Automated count 1.4 % 0.0 - 7.0 [facility] Basophils/100 leukocytes in Blood by Automated count 0.5 % 0.0 - 2.0 [facility] %IG 0.8 % 0.0 - 0.0 H [facility] al %NRBC 0.0 % 0.0 - 0.0 [facility] Neutrophils [#/volume] in Blood by Automated count 5.90 10^3/uL 2.00 - 6.90 [facility] Lymphocytes [#/volume] in Blood by Automated count 2.46 10^3/uL 0.60 - 3.40 [facility] Monocytes [#/volume] in Blood by Automated count 0.63 10^3/uL 0.00 - 0.90 [facility] Eosinophils [#/volume] in Blood by Automated count 0.13 10^3/uL 0.00 - 0.70 [facility] Basophils [#/volume] in Blood by Automated count 0.05 10^3/uL 0.00 - 0.20 [facility] #IG 0.07 10^3/uL 0.00 - 0.10 [facility] ospital #NRBC 0.00 10^3/uL 0.00 - 0.00 [facility] ospital MANUAL DIFF NOT INDICATED [facility] RBC MORPH NOT INDICATED [facility] spital ID Date Data Source [id number] 08/31/2020 09:29:00 [place] [address] RESPIRATORY CARE REPORT ==== ---------NAME------- NUMBER SEX AGE ADMIT DISC. XRAY# F/C TYPEMANTLE CAMILO Navarro [id number] M 29 08/29/20 08/29/20 [id number] XBE E/R DATE OF : 1990 M/R# [id number] #: [id number] TR-03 LOCATION: EMERGENCY DEPT EKG 85623 COMP LETE:08/29/20 01:26 T [id number] PHYSICIAN: ANTHONY GODINEZ Name Value Range Interpretation Code Description Data Cecy rce(s) Supporting Document(s) ID Date Data Source [id number] 08/29/2020 12:13:00 AM [facility] 1 OrderSheet [facility] Emergency Department [address] [place] [address] Phone #: ext- [phone] 08/29/2020 00:12 Patient: CAMILO LAWSON Sex: M : 1990 Age: 29yWEIGHT:82.8 kg [...] outweigh risks -- 00:37 08/29/2020 2 OrderSheet [facility] Emergency Department [address] [place] [address] Phone #: ext- [phone] 08/29/2020 00:12 Patient: CAMILO LAWSON Sex: M : 1990 Age: 29y Prudencio [...] Prudencio Gross PhysicianEKG 00:37 08/29/2020 01:21 Prudencio Barry R.N. 3 OrderSheet [facility] Emergency Department [address] [place] [address] Phone #: ext- [phone] 08/29/2020 00:12 Patient: CAMILO LAWSON Sex: M : 1990 Age: 29y Physician; [...] rce(s) Supporting Document(s) ID Date Data Source [id number] 08/29/2020 12:13:00 AM EST [facility] 1 Medication Reconciliation Report [facility] Emergency Department [address] [place] [address] Phone #: ext- [phone] 08/29/2020 00:12 Patient: CAMILO LAWSON Sex: M : 1990 Age: 29yWeight: 82.8 [...] rce(s) Supporting Document(s) ID Date Data Source [id number] 08/29/2020 12:13:00 AM [facility] 1 Medication Administration Record [facility] Emergency Department [address] [place] [address] Phone #: ext- [phone] 08/29/2020 00:12 Patient: CAMILO LAWSON Sex: M : 1990 Age: 29yWeight: 82.8 [...] rce(s) Supporting Document(s) ID Date Data Source [id number] 08/29/2020 12:13:00 AM [facility] 1 General Instructions [facility] Emergency Department [address] [place] [address] Phone #: ext- [phone] 08/29/2020 00:12 Patient: CAMILO LAWSON Sex: M : 1990 Age: 29yChronic paranoid [...] yourself at most times 2 General Instructions [facility] Emergency Department [address] [place] [address] Phone #: ext- [phone] 08/29/2020 00:12 Patient: CAMILO LAWSON Sex: M : 1990 Age: 29y Wanting [...] providers about all of the prescription medicines, zxqo-lnm-rnwjvke medicines, vitamins, and supplements you take. Certain [...] operates a toll-free ADA information line at: [phone] (Voice); or [phone] (TTY). They can help you locate a local office.Follow-up careFollow up with your healthcare provider, or as advised.Call [phone] if any of these occur: You have suicidal thoughts, a suicide plan, and the means to carry out the plan Trouble breathing 3 General Instructions [facility] Emergency Department [address] [place] [address] Phone #: ext- [phone] 08/29/2020 00:12 Patient: CAMILO LAWSON Sex: M : 1990 Age: 29y Very [...] who have expressed concern over your behavior [phone] [employer] [place] [address], [place] [address]. All rights reserved. This information is not intended as asubstitute for professional medical care. Always follow your healthcare professional's instructions. You have been given the following additional information: Schizophrenia, Paranoid Type(Electronically signed by Prudencio Gross, Physician 08/30/2020 08:42) Name Value Range Interpretation Code Description Data Cecy rce(s) Supporting Document(s) ID Date Data Source [id number] 08/29/2020 12:13:00 AM EST [facility] 1 Clinical Report - Nurses [facility] Emergency Department [address] [place] [address] Phone #: ext- [phone] 08/29/2020 00:12 Patient: CAMILO LAWSON Sex: M : 1990 Age: 29yTRIAGEArrived by [...] full sentences, no distress noted, patent airway.).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 --00:22 08/29/20 Carito Barry R.N.00:14 08/29/20. BP: 140/91. MAP: 107. HR: 62. RR: 16. O2 saturation: 96% on room air. Temp: 97.9 F.Pain level now: 03/01. --00:22 08/29/20 Carito Barry R.N.Weight: 82.8 kg measured. Height/Length: 70 inches Per Patient. BMI: 26.2. --00:17 08/29/20 Carito Barry R.N.MedicationsSEROquel Oral (Tablet 300 mg) 1/2 tablet, daily at bedtime. --00:08/29/20 Carito Barry R.N.AllergiesNo Known Drug Allergy. --00:20 08/29/20 Carito Barry R.N.PROBLEMS:Insomnia: Chronic. --00:20 08/29/20 Carito Barry R.N.Bastrop disorder.Lifestyle / Substance Problems.Bipolar Disorder.Anxiety Reaction.ADHD - Attention Deficit Hyperactivity Disorder.Neurological Disease.Tension-Type Headache.Seizure Disorder.Seizure.STD - Sexually Transmitted Disease.Tendonitis.Tbi. 2 Clinical Report - Nurses [facility] Emergency Department [address] [place] [address] Phone #: ext- [phone] 08/29/2020 00:12 [id number] Sex: M : 1990 Age: 29yObsessive Compulsive [...] integrity risk 3 Clinical Report - Nurses [facility] Emergency Department [address] [place] [address] Phone #: ext- [phone] 08/29/2020 00:12 Patient: CAMILO LAWSON [facility]#: [id number] Sex: M : 1990 Age: 29y identified. [...] 96% on room air. Pain level now: 10. --01:21 08/29/20 Carito Barry R.N. 01:40 08/29/2020 [...] Patient verbalized understanding. Written instructions provided in Emirati. The patient was discharged home. He left ambulatory and via taxi. 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 --03:44 08/29/20 Carito Barry R.N. 4 Clinical Report - Nurses [facility] Emergency Department [address] [place] [address] Phone #: ext- [phone] 08/29/2020 00:12 Patient: CAMILO LAWSON Sex: M : 1990 Age: 29y 03:44 08/29/20. BP: 126/82. MAP: 96. HR: 71. RR: 16. O2 saturation: 97% on room air. Temp: 98.1 F. Pain level now: 0/10. --03:44 08/29/20 Carito Barry R.N.Locked/Released at 08/29/2020 05:19 by Carito Barry R.N. Name Value Range Interpretation Code Description Data Cecy rce(s) Supporting Document(s) ID Date Data Source [id number] 08/29/2020 12:13:00 AM EST [facility] 1 Clinical Report - Physicians/Mid Levels [facility] Emergency Department [address] [place] [address] Phone #: ext- [phone] 08/29/2020 00:12 Patient: CAMILO LAWSON Sex: M : 1990 Age: 29y Time [...] Abrasions 2 Clinical Report - Physicians/Mid Levels [facility] Emergency Department [address] [place] [address] Phone #: ext- [phone] 08/29/2020 00:12 Patient: CAMILO LAWSON Sex: M : 1990 Age: 29y Pneumonia). [...] ABD //T// PELV W/O ORAL [place] [address] ---------N RYANN--------- NUMBER SEX AGE ADMIT DISC. XRAY# F/C TYPE BENJAMÍN Navarro [id number] M 29 08/29/20 [id number] NA E/R DATE OF : 1990 M/R# [id number] #: [id number] TR-03 3 Clinical Report - Physicians/Mid Levels [facility] Emergency Department [address] [place] [address] Phone #: ext- [phone] 08/29/2020 00:12 Patient: CAMILO LAWSON Sex: M : 1990 Age: 29y LOCATION: EMERGENCY DEPT TRANSCRIBED: 08/29/20 2:[address] ABD //T// PELV W/O ORAL W/[place] [id number] COMPLETED:08/29/20 2:18 RLB [id number] Reason(s): Trauma/Injury PHYSICIAN: ANTHONY BR = R [...] pathologyevident.IMPRESSION: 4 Clinical Report - Physicians/Mid Levels [facility] Emergency Department [address] [place] [address] Phone #: ext- [phone] 08/29/2020 00:12 [id number] Sex: M : 1990 Age: 29y No [...] Finalresults Exam CT ST NECK W/[place] [address] ---------NAME--------- NUMBER SEX AGE ADMIT DISC. XRAY# F/C TYPE BENJAMÍN Navarro [id number] M 29 08/29/20 [id number] NA E/R DATE OF : 1990 M/R# [id number] PH#: [phone] TR-03 LOCATION: EMERGENCY DEPT TRANSCRIBED: 08/29/20 2:[address] NECK W/O CONTRAST [id number] COMPLETED:08/29/20 2:18 RLB [id number] Reason(s): Trauma/Injury PHYSICIAN: ANTHONY BR R A [...] gas. 5 Clinical Report - Physicians/Mid Levels [facility] Emergency Department [address] [place] [address] Phone #: ext- [phone] 08/29/2020 00:12 Patient: CAMILO LAWSON Sex: M : 1990 Age: 29y SALIVARY [...] Final results Exam CT THORAX W/O CONTRAST [place] [address] [facility] [place] [address] ---------NAME--------- NUMBER SEX AGE ADMIT DISC. XRAY# F/C TYPE MANTLE CAMILO D [id number] M 29 08/29/20 [id number] NA E/R DATE OF : 1990 M/R# [id number] #: [id number] TR-03 LOCATION: EMERGENCY DEPT TRANSCRIBED: 08/29/20 2:[address] THORAX W/O CONTRAST [id number] COMPLETED:08/29/20 2:18 RLB [id number] Reason(s): Trauma/Injury PHYSICIAN: ANTHONY BR R A [...] provided. 6 Clinical Report - Physicians/Mid Levels [facility] Emergency Department [address] [place] [address] Phone #: ext- [phone] 08/29/2020 00:12 Patient: CAMILO LAWSON Sex: M : 1990 Age: 29y Findings: [...] NEGAT 7 Clinical Report - Physicians/Mid Levels [facility] Emergency Department [address] [place] [address] Phone #: ext- [phone] 08/29/2020 00:12 Patient: CAMILO LAWSON Sex: M : 1990 Age: 29y THC NEGATIVE (NORMAL: NEGAT OPIATES NEGATIVE (NORMAL: NEGAT PCP NEGATIVE (NORMAL: NEGAT \\BLDo\\URINE DRUG SCREEN INTERPRETATION\\BLDx\\ THE CUTOFFF LEVELS FORDETECTION ARE FOLLOWS: AMPHETAMINES 1000 ng/mlBARBITUARATES 200 ng/ml BENZODIAZEPINES 100 ng/mlTHC 50 ng/ml PHENCYCLIDINE 25 ng/mlOPIATES 300 ng/ml COCAINE 300 ng/mlALL POSITIVES ARE CONSIDERED PRESUMPTIVE POSITIVE CONFIRMATION WILL BE PERFORMED AT [facility].CMP: (LULU: 08/29/2020 01:35) ( MsgRcvd [...] Male GFR Interprentation 20-49 yrs >60 mL/min Lfkhnm49-23 yrs >56 mL/min Normal 60-69 yrs >49 mL/min Normal 70-79yrs>42 mL/min Normal 80 and above >35 mL/min Normal Female GFRInterpretation 20-39 yrs >60 mL/min Normal 40-49 yrs >58 mL/minNormal 50-59 yrs >51 mL/min Normal 60-69 yrs >45 mL/min Tgbzqa95-40 yrs >39 mL/min Normal 80 and above [...] 8 C linical Report - Physicians/Mid Levels [facility] Emergency Department [address] [place] [address] Phone #: ext- [phone] 08/29/2020 00:12 Patient: CAMILO LAWSON Sex: M : 1990 Age: 29y MPV [...] tendencies.). 9 Clinical Report - Physicians/Mid Levels [facility] Emergency Department [address] [place] [address] Phone #: ext- [phone] 08/29/2020 00:12 Patient: CAMILO LAWSON Sex: M : 1990 Age: 29yINSTRUCTIONS Warnings: [...] rce(s) Supporting Document(s) ID Date Data Source [id number] 08/29/2020 02:56:00 AM EST [facility] [address] [place] [address] ---------NAME--------- NUMBER SEX AGE ADMIT DISC. XRAY# F/C TYPE MANTLE CAMILO D [id number] M 29 08/29/20 [id number] NA E/R DATE OF : 1990 M/R# [id number] #: [id number] TR-03 LOCATION: EMERGENCY DEPT TRANSCRIBED: 08/29/20 2:[address] THORAX W/O CONTRAST [id number] COMPLETED:08/29/20 2:18 RLB 90507 Reason(s): Trauma/Injury PHYSICIAN: ANTHONY BR R A [...] rce(s) Supporting Document(s) ID Date Data Source [id number] 08/29/2020 02:39:[address] [address] ---------NAME--------- NUMBER SEX AGE ADMIT DISC. XRAY# F/C TYPE MANTLE CAMILO D [id number] M 29 08/29/20 [id number] NA E/R DATE OF : 1990 M/R# [id number] #: [id number] TR-03 LOCATION: EMERGENCY DEPT TRANSCRIBED: 08/29/20 2:[address] ABD //T// PELV W/O ORAL W/[place] [address] COMPLETED:08/29/20 2:18 RLB 19217 Reason(s): Trauma/Injury PHYSICIAN: ANTHONY BR======== R A [...] rce(s) Supporting Document(s) ID Date Data Source [id number] 08/29/2020 02:37:00 AM EST [facility] [address] [facility] [place] [address] ---------NAME--------- NUMBER SEX AGE ADMIT DISC. XRAY# F/C TYPE MANTLE CAMILO D [id number] M 29 08/29/20 [id number] NA E/R DATE OF : 1990 M/R# [id number] PH#: [phone] TR-03 LOCATION: EMERGENCY DEPT TRANSCRIBED: 08/29/20 2:[address] NECK W/O CONTRAST [id number] COMPLETED:08/29/20 2:18 RLB [id number] Reason(s): Trauma/Injury PHYSICIAN: ANTHONY BR R A [...] rce(s) Supporting Document(s) ID Date Data Source [id number] 08/29/2020 02:02:00 AM [facility] Name Value Range Interpretation Code Description Data Cecy rce(s) Supporting Document(s) Lipase [Enzymatic activity/volume] in Serum or Plasma 37 U/L 13 - 60 [facility] ID Date Data Source [id number] 08/29/2020 02:02:00 AM [facility] Name Value Range Interpretation Code Description Data Cecy rce(s) Supporting Document(s) COMPREHENSIVE METABOLIC PANEL [facility] COMPREHENSIVE METABOLIC PANEL Sodium [Moles/volume] in Serum or Plasma 136 mEq/L 134 - 153 [facility] Potassium [Moles/volume] in Serum or Plasma 3.8 mEq/L 3.6 - 5.0 [facility] Chloride [Moles/volume] in Serum or Plasma 103 mEq/L 98 - 107 [facility] Carbon dioxide, total [Moles/volume] in Serum or Plasma 26 MEQ/L 22 - 30 [facility] Glucose [Mass/volume] in Serum or Plasma 106 MG/DL 65 - 110 [facility] BUN 14 MG/DL 7 - 21 [facility] Creatinine [Mass/volume] in Serum or Plasma 0.6 MG/DL 0.7 - 1.5 L [facility] BUN/CREAT 23 8 - 27 [facility] al Protein [Mass/volume] in Serum or Plasma 6.6 G/DL 6.3 - 8.2 [facility] Albumin [Mass/volume] in Serum or Plasma 4.3 G/DL 3.9 - 5.0 [facility] Globulin [Mass/volume] in Serum by calculation 2.3 GM/DL 2.4 - 3.2 L [facility] A/G RATIO 1.9 0.8 - 2.0 [facility] Calcium [Mass/volume] in Serum or Plasma 9.3 MG/DL 8.4 - 10.2 [facility] Bilirubin.total [Mass/volume] in Serum or Plasma 0.8 MG/DL 0.2 - 1.3 [facility] Alkaline phosphatase [Enzymatic activity/volume] in Serum or Plasma 108 U/L 38 - 126 [facility] Aspartate aminotransferase [Enzymatic activity/volume] in Serum or Plasma 17 U/L 5 - 40 [facility] Alanine aminotransferase [Enzymatic activity/volume] in Seru m or Plasma 18 U/L 7 - 56 [facility] Anion gap 3 in Serum or Plasma 7.0 mmol/L 8.0 - 16.0 L [facility] AGE 29 yrs [facility] al NON-AA GFR >60 mL/min [facility] ital AFR AMER GFR >60 mL/min [facility] spital Male GFR In [...] >32 mL/min Normal ID Date Data Source [id number] 08/29/2020 01:45:00 AM EST [facility] Name Value Range Interpretation Code Description Data Cecy rce(s) Supporting Document(s) Lactate [Moles/volume] in Serum or Plasma 1.0 MMOL/L 0.2 - 2.2 [facility] ID Date Data Source [id number] 08/29/2020 01:42:00 AM EST [facility] Name Value Range Interpretation Code Description Data Cecy rce(s) Supporting Document(s) CBC W/AUTOMATED DIFF [facility] COMPLETE BLOOD COUNT Leukocytes [#/volume] in Blood by Automated count 8.4 10^3/uL 4.2 - 1 1.0 [facility] Erythrocytes [#/volume] in Blood by Automated count 4.97 10^6/uL 4. 50 - 6.30 [facility] Hemoglobin [Mass/volume] in Blood 15.1 g/dL 14.0 - 16.0 [facility] Hematocrit [Volume Fraction] of Blood by Automated count 43.8 % 4 1.0 - 51.0 [facility] Erythrocyte mean corpuscular volume [Entitic volume] by Auto mated count 88.1 fL 80.0 - 94.0 [facility] Erythrocyte mean corpuscular hemoglobin [Entitic mass] by Automated count 30.4 pg 27.0 - 34.0 [facility] Erythrocyte mean corpuscular hemoglobin concentration [Mass/volume] by Automated count 34.5 g/dL 31.0 - 36.0 [facility] Erythrocyte distribution width [Ratio] by Automated count 12.6 % 11.5 - 14.8 [facility] Platelets [#/volume] in Blood by Automated count 258 10^3/uL 150 - 45 0 [facility] Platelet mean volume [Entitic volume] in Blood by Automated count 9.9 fL 7.4 - 10.4 [facility] Neutrophils/100 leukocytes in Blood by Automated count 59.4 % 37. 0 - 80.0 [facility] Lymphocytes/100 leukocytes in Blood by Manual count 28.6 % 25.0 - 40.0 [facility] Monocytes/100 leukocytes in Blood by Automated count 8.9 % 3.0 - 8.0 H [facility] Eosinophils/100 leukocytes in Blood by Automated count 2.1 % 0.0 - 7.0 [facility] Basophils/100 leukocytes in Blood by Automated count 0.6 % 0.0 - 2.0 [facility] %IG 0.4 % 0.0 - 0.0 H [facility] al %NRBC 0.0 % 0.0 - 0.0 [facility] al Neutrophils [#/volume] in Blood by Automated count 4.99 10^3/uL 2.00 - 6.90 [facility] Lymphocytes [#/volume] in Blood by Automated count 2.40 10^3/uL 0.60 - 3.40 [facility] Monocytes [#/volume] in Blood by Automated count 0.75 10^3/uL 0.00 - 0.90 [facility] Eosinophils [#/volume] in Blood by Automated count 0.18 10^3/uL 0.00 - 0.70 [facility] Basophils [#/volume] in Blood by Automated count 0.05 10^3/uL 0.00 - 0.20 [facility] #IG 0.03 10^3/uL 0.00 - 0.10 [facility] ospital #NRBC 0.00 10^3/uL 0.00 - 0.00 [facility] ospital MANUAL DIFF NOT INDICATED [facility] RBC MORPH NOT INDICATED [facility] spital ID Date Data Source [id number] 08/29/2020 01:40:00 AM EST [facility] Name Value Range Interpretation Code Description Data Cecy rce(s) Supporting Document(s) DRUG SCREEN URINE [facility] URINE DRUG SCREEN Amphetamine [Presence] in Urine by Screen method NEGATIVE NORMAL: N EGATIVE [facility] BARBITURATES NEGATIVE NORMAL: NEGATIVE [facility] BENZO NEGATIVE NORMAL: NEGATIVE [facility] COCAINE NEGATIVE NORMAL: NEGATIVE [facility] Tetrahydrocannabinol [Presence] in Urine NEGATIVE NORMAL: NEGATIVE [facility] OPIATES NEGATIVE NORMAL: NEGATIVE [facility] Phencyclidine [Presence] in Urine by Screen method NEGATIVE NOR MAL: NEGATIVE [facility] \\BLDo\\URINE DRUG SCR EEN INTERPRETATION\\BLDx\\ THE CUTOFFF LEVELS FOR DETECTION ARE FOLLOWS: AMPHETAMINES 1000 ng/ml BARBITUARATES 200 ng/ml BENZODIAZEPINES 100 ng/ml THC 50 ng/ml PHENCYCLIDINE 25 ng/ml OPIATES 300 ng/ml COCAINE 300 ng/ml ALL POSITIVES ARE CONSIDERED PRESUMPTIVE POSITIVE CONFIRMATION WILL BE PERFORMED AT PHYSICIAN REQUEST. ID Date Data Source [id number] 08/29/2020 01:25:00 AM EST [facility] Name Value Range Interpretation Code Description Data Cecy rce(s) Supporting Document(s) URINALYSIS [facility] akanksha URINALYSIS SOURCE R [facility] COLOR yellow NORMAL: Yellow [facility] ospital CLARITY clear NORMAL: Clear [facility] spital Specific gravity of Urine by Test strip 1.010 1.001 - 1.030 [facility] pH 6.5 5 - 9 [facility] Glucose [Mass/volume] in Urine by Test strip NORM NORMAL: Negat [facility] Bilirubin.total [Presence] in Urine by Test strip NEG NORMAL: Negative [facility] Ketones [Presence] in Urine by Test strip NEG NORMAL: Negative [facility] Protein [Mass/volume] in Urine by Test strip NEG NORMAL: Negat [facility] Nitrite [Presence] in Urine by Test strip NEG NORMAL: Negative [facility] BLOOD NEG NORMAL: Negative [facility] Leukocyte esterase [Presence] in Urine by Test strip NEG [place] L: Negative [facility] Urobilinogen [Mass/volume] in Urine by Test strip NOR less alida n 1.0 mg/dL [facility] MICROSCOPIC Not Indicate [facility] ospital ID Date Data Source [id number] 08/19/2020 01:52:52 PM EDT [facility] Vital SignsBlood Pressure: 138/82 Patient History Medical History:Brain TumorSeizure DisorderDepressionHx of kidney stonesBipolarSurgical History:Partial lobectomyFamily History:No known family historySocial/Personal History: Smoking Status: current some day smokerDo you vape? NoCurrent Problems: Normal examination (ICD-V65.5) (JPD88-B01.1)Dental caries/Impaction of teeth (ICD-521.00) (JVX98-M99.9)Contact dermatitis and other eczema, unspecified cause (ICD-692.9) (CCM57-N83.9)Depression (ICD-311) (TFW39-I62.9)Seizure Disorder (ICD-780.39) (JXM44-I22.9)Brain Tumor (ICD-191.9) (IMC24-E70.9)Problem list reviewed during this update.Current Medications: SEROQUEL [...] PM): ; yany (Aug 20 2020 7:29AM): [facility](-). CC: none. Reviewed Xrays. Exam: caries [...] Known Allergies (updated 08/19/2020) Orders:Oral Surgery Referral [[id number]] Clinical Visit Summary Declined Name Value Range Interpretation Code Description Data Cecy rce(s) Supporting Document(s) ID Date Data Source [id number] 08/14/2020 07:17:00 PM EDT [facility] 1 Medication Reconciliation Report [facility] Emergency Department [address] [place] [address] Phone #: ext- [phone] 08/14/2020 19:09 Patient: CAMILO LAWSON Sex: M : 1990 Age: 29yWeight: 81.6 [...] Name Value Range Interpretation Code Description [facility] Supporting Document(s) ID Date Data Source [id number] 08/14/2020 07:17:00 PM EDT [facility] 1 Medication Administration Record [facility] Emergency Department [address] [place] [address] Phone #: ext [phone] 19:09 Patient: CAMILO LAWSON Sex: M : 1990 Age: 29yWeight: 81.6 kgHeight/Length: 72 inBMI: 24.4ALLERGIES: No Known Drug AllergyDate/Time Medication Administered Medication Ordered Name Value Range Interpretation Code Description Data Cecy rce(s) Supporting Document(s) ID Date Data Source [id number] 08/14/2020 07:17:00 PM EDT [facility] 1 General Instructions [facility] Emergency Department [address] [place] [address] Phone #: ext- [phone] 08/14/2020 19:09 Patient: CAMILO LAWSON Sex: M : 1990 Age: 29y Anxiety reaction. No hyperventilation.INSTRUCTIONS Warnings: GENERAL WARNINGS: Return or contact your physician immediately if your condition worsens or changes unexpectedly, if not improving as expected, or if other problems arise. Understanding of the discharge instructions verbalized by patient. Follow-up with: [facility], , , [address] [place] [address], [address] Follow up in one week. Call for [...] may experience: Dry mouth 2 General Instructions [facility] Emergency Department [address] [place] [address] Phone #: ext- [phone] 08/14/2020 19:09 Patient: CAMILO LAWSON Sex: M : 1990 Age: 29y Shakiness [...] Also, there are certain 3 General Instructions [facility] Emergency Department [address] [place] [address] Phone #: ext- [phone] 08/14/2020 19:09 Patient: CAMILO LAWSON Sex: M : 1990 Age: 29y techniques [...] andtemporary medicine to help you manage stress.Call [phone] if any of these happen: Trouble breathing [...] and mild pain reliever 4 General Instructions [facility] Emergency Department [address] [place] [address] Phone #: ext- [phone] 08/14/2020 19:09 Patient: CAMILO LAWSON Sex: M : 1990 Age: 29y [id number] [employer]. [address] [place] [address]. All rights reserved. This information is not intended as asubstitute for professional medical care. Always follow your healthcare professional's instructions. You have been given the following additional information: Anxiety Reaction(Electronically signed by Pedro Kim, 08/14/2020 20:15) Name Value Range Interpretation Code Description Data Cecy rce(s) Supporting Document(s) ID Date Data Source [id number] 08/14/2020 07:17:00 PM EDT [facility] 1 Clinical Report - Nurses [facility] Emergency Department [address] [place] [address] Phone #: ext- [phone] 08/14/2020 19:09 Patient: CAMILO LAWSON Sex: M : 1990 Age: 29yTRIAGEHistorian: patient.Acuity: LEVEL 4.Chief Complaint: (wants to be checked out denies any symptoms).No acute distress.No fever, weakness, cough, difficulty breathing or skin rash. Denies muscle aches. --19:08/14/20Alfonso Buck R.N.19:08/14/20. BP: 136/98. MAP: 110. HR: 80. RR: 16. O2 saturation: 98%. Temp: 97.8 F. Pain levelnow: 0/10. --19:08/14/20 Alfonso Buck R.N.Weight: 81.6 kg stated. Height/Length: 72 inches Per Patient. BMI: 24.4. --19:08/14/20 Alfonso Buck R.N.MedicationsSEROquel Oral (Tablet 300 mg) 1/2 tablet, daily at bedtime. --:08/14/20 Alfonso Buck R.N.AllergiesNo Known Drug Allergy. --:08/14/20 Alfonso Buck R.N.HistoryPAST MEDICAL HX: No history [...] no barriers. 2 Clinical Report - Nurses [facility] Emergency Department [address] [place] [address] Phone #: ext- [phone] 08/14/2020 19:09 [id number] Sex: M : 1990 Age: 29y FALL RISK ASSESSMENT: Fall risk assessment completed. No risk factors identified. SKIN INTEGRITY ASSESSMENT: Skin integrity risk assessment completed. No skin integrity risk identified. --19:30 08/14/20 Alfonso Buck R.N. FAMILY HX: No significant family medical history. --19:53 08/14/20 Pedro Kim.PHYSICAL [id number] 08/14/20. Ambulatory to room.GENERAL / NEURO / [...] Skin is warm and dry. --19:55 08/14/20 aCrito Barry R.N.NURSING PROGRESS NOTESSide rails up. Bed placed in lowest position. Brakes of bed on. --19:30 08/14/20 Alfonso Buck R.N.DISPOSITION / DISCHARGE No learning barriers present. Discharge instructions provided and reviewed with the patient. Reviewed warnings. Reviewed medication(s). Treatments reviewed. Reviewed referrals. Patient verbalized understanding. Written instructions provided in Emir[place]. The patient was discharged home and unaccompanied at time of discharge. He left ambulatory and via taxi. 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 --20:04 08/14/20 Carito Barry R.N. 20:03 08/14/20. BP: 141/93. MAP: 109. HR: 81. RR: 16. O2 saturation: 98%. Temp: 97.9 F. Pain level now: 0/10. --20:04 08/14/20 Carito Barry R.N.Locked/Released at 08/14/2020 20:04 by Carito Barry R.N. Name Value Range Interpretation Code Description Data Cecy rce(s) Supporting Document(s) ID Date Data Source [id number] 08/14/2020 07:17:00 PM EDT [facility] 1 Clinical Report - Physicians/Mid Levels [facility] Emergency Department [address] [place] [address] Phone #: ext- [phone] 08/14/2020 19:09 Patient: CAMILO LAWSON Sex: M : 1990 Age: 29y Time [...] alone. 2 Clinical Report - Physicians/Mid Levels [facility] Emergency Department [address] [place] [address] Phone #: ext- [phone] 08/14/2020 19:09 Patient: CAMILO LAWSON Sex: M : 1990 Age: 29yFAMILY HISTORYNo [...] patient. 3 Clinical Report - Physicians/Mid Levels [facility] Emergency Department [address] [place] [address] Phone #: ext- [phone] 08/14/2020 19:09 Patient: CAMILO LAWSON Sex: M : 1990 Age: 29y Follow-up with: [facility], , , [address] [place] [address], [facility] Follow up in one week. Call for an appointment.(Electronically signed by Pedro Kim, 08/14/2020 20:15) Name Value Range Interpretation Code Description Data Cecy rce(s) Supporting Document(s) ID Date Data Source [id number] 05/04/2020 10:53:00 [place] [address] PHONE: [phone] FAX: [phone] Name .................. : BENJAMÍN Navarro Acct Number.................. : [id number] ROOM. ................. : TR-07 MR Number ................... : [id number] Stay type ............. : E/R Discharge Date......... ... : Admit Date ......... : 05/02/20 Admit Phys .................... : SAQIB GRUBBS Date of ....... : 1990 Family Phys ................... : NON STAFF Phone .................. : [phone] Age ................................ : 29 Film# .................. .:[id number] Sex ................................. : M Unsigned transcriptions are preliminary reports and do not represent a medical or legal document CT HEAD W/O CONTRAST [id number] COMPLETE:05/02/20 11:52 KBO 64429 Reason(s): Head Pain CT OF THE HEAD [...] via fax Copy for: EMERGENCY DEPT via isolam Copy for: 710 MED REC DISCHARGED Page 1 of 1 Name Value Range Interpretation Code Description Data Cecy rce(s) Supporting Document(s) ID Date Data Source [id number] 05/04/2020 10:53:00 AM EDT [facility] [address] [place] [address] PHONE: [phone] FAX: [phone] Name .................. : BENJAMÍN Navarro Acct Number.................. : [id number] ROOM. ................. : TR-07 MR Number ................... : [id number] Stay type ............. : E/R Discharge Date......... ... : Admit Date ......... : 05/02/20 Admit Phys .................... : SAQIB PA Date of ....... : 1990 Family Phys ................... : NON STAFF Phone .................. : [phone] Age ................................ : 29 Film# .................. .:[id number] Sex ................................. : M Unsigned transcriptions are preliminary reports and do not represent a medical or legal document CHEST PORTABLE [id number] COMPLETE:05/02/20 11:52 KBO 36642 Reason(s): seizure PORTABLE CHEST X-RAY: COMPARISON: 11/06/19 [...] rce(s) Supporting Document(s) ID Date Data Source [id number] 05/03/2020 01:07:[place] [address] RESPIRATORY CARE REPORT ==== ---------NAME------- NUMBER SEX AGE ADMIT DISC. XRAY# F/C JULIAN Navarro [id number] M 29 05/02/20 05/02/20 [id number] XBE E/R DATE OF : 1990 M/R# [id number] #: [id number] TR-07 LOCATION: EMERGENCY DEPT EKG [id number] COMPLE TE:05/02/20 14:49 WL [id number] PHYSICIAN: SAQIB SAINI CH Name Value Range Interpretation Code Description Data Cecy rce(s) Supporting Document(s) ID Date Data Source [id number] 05/02/2020 10:49:00 AM EDT [facility] 1 OrderSheet [facility] Emergency Department [address] [place] [address] Phone #: ext- [phone] 05/02/2020 10:49 Patient: CAMILO LAWSON Sex: M : 1990 Age: 29yWEIGHT:83.9 kg (M)ALLERGIES: No Known Drug AllergyCHIEF COMPLAINT: seizureDIAGNOSIS: SeizureLAB ORDERSOrder Description Priority Entered Acknowledged InitialedUrinalysis (Clean STAT 11:06 05/02/2020 12:34 JanineyCkaden) Francisco J Blanchard RN P.A.-C;Urine Drug Screen STAT 11:05/02/2020 12:34 Freddy Blanchard RN P.A.-C;CMP STAT 11:05/02/2020 11:07 Angeles Thomas RN P.A.-C;CBC w Diff [...] STAT 11:06 05/02/2020 11:14 Freddy 2 OrderSheet [facility] Emergency Department [address] [place] [address] Phone #: ext- [phone] 05/02/2020 10:49 Patient: CAMILO LAWSON Sex: M : 1990 Age: 29y(Oxygen?(No)) Francisco J Blanchard RN P.A.-C; NOTES: Seizure Reason for Study: Head PainChest 1 View STAT 11:06 05/02/2020 Initialed: 11:12 Francisco J Cr(Oxygen?(No)) Francisco J Saini Cancelled: Other 11:12 Francisco J Ivory; Parveen PRoxann Cr Reason for Study: CoughChest [...] 05/02/2020 11:14 JanineyMonitor Francisco J Blanchard RN P.A.-C;Stabber 11:11 05/02/2020 11:14 Freddy(continuous) Francisco J Blanchard RN P.A.-C;NPO 11:11 05/02/2020 11:14 Freddy 3 OrderSheet [facility] Emergency Department [address] [place] [address] Phone #: ext- [phone] 05/02/2020 10:49 [id number] Sex: M : 1990 Age: 29y Francisco J Blanchard RN P.A.-C;Ntfy if Abnml Vitals 11:11 05/02/2020 11:14 Freddy Blanchard RN P.A.-C;Pulse oximeter 11:11 05/02/2020 11:14 Freddy(Continuous) Francisco J Blanchard RN P.A.-C;Seizure 11:11 05/02/2020 11:14 TerryPrecautions Francisco J Blanchard RN P.A.-C;Vitals 11:11 05/02/2020 11:14 Freddy Blanchard RN P.A.-C;[Electronically signed by Freddy Blanchard RN (16:59 05/02/2020)][Electronically signed by Francisco J Saini PBrittABritt-C (10:57 05/03/2020)][Electronically locked by Freddy Blanchard RN (16:59 05/02/2020)] Name Value Range Interpretation Code Description Data Cecy rce(s) Supporting Document(s) ID Date Data Source [id number] 05/02/2020 10:49:00 AM EDT [facility] 1 Medication Reconciliation Report [facility] Emergency Department [address] [place] [address] Phone #: ext- [phone] 05/02/2020 10:49 Patient: CAMILO LASWON Sex: M : 1990 Age: 29yWeight: 83.9 [...] rce(s) Supporting Document(s) ID Date Data Source [id number] 05/02/2020 10:49:00 AM EDT [facility] 1 Medication Administration Record [facility] Emergency Department [address] [place] [address] Phone #: ext- [phone] 05/02/2020 10:49 Patient: CAMILO LAWSON Sex: M : 1990 Age: 29yWeight: 83.9 [...] 05/02/2020 Dose: 1000 mg Tablets PO (NOW x1)Manas Prettyven ATIVAN [PO] (LORAZEPAM) Ativan PO 1 mg12:44 05/02/2020 Dose: 1 mg Tablets Clyde Blanchard RN Name Value Range Interpretation Code Description Data Cecy rce(s) Supporting Document(s) ID Date Data Source [id number] 05/02/2020 10:49:00 AM EDT [facility] 1 General Instructions [facility] Emergency Department [address] [place] [address] Phone #: [phone] ext- [phone] 05/02/2020 10:49 Patient: CAMILO LAWSON Sex: M : 1990 Age: 29yGeneralized seizure [...] discharge instructions verbalized by patient.Follow-up with: [facility], , [id number], [facility] [place], [address] Follow up. Call for the next available [...] change to another medicine. 2 General Instructions [facility] Emergency Department [address] [place] [address] Phone #: ext- [phone] 05/02/2020 10:49 Patient: CAMILO LAWSON Sex: M : 1990 Age: 29yHome careFollow [...] and/or another type of 3 General Instructions [facility] Emergency Department [address] [place] [address] Phone #: ext- [phone] 05/02/2020 10:49 Patient: CAMILO LAWSON Sex: M : 1990 Age: 29y infection.For [...] Headache that gets worse 4 General Instructions [facility] Emergency Department [address] [place] [address] Phone #: ext- [phone] 05/02/2020 10:49 Patient: CAMILO LAWSON Sex: M : 1990 Age: 29y [id number] [employer] [place] [address]. All rights reserved. This information is not intended as asubstitute for professional medical care. Always follow your healthcare professional's instructions. You have been given the following additional information: Seizure, Recurrent (Adult) No driving or operating machinery until released.(Electronically signed by Francisco J Saini P.A.-C 05/03/2020 10:57) Name Value Range Interpretation Code Description Data Cecy rce(s) Supporting Document(s) ID Date Data Source [id number] 05/02/2020 10:49:00 AM EDT [facility] 1 Clinical Report - Nurses [facility] Emergency Department [address] [place] [address] Phone #: ext- [phone] 05/02/2020 10:49 Patient: CAMILO LAWSON Sex: M : 1990 Age: 29yTRIAGEArrived by [...] trauma. 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 Sepsis Screen negative. No suspected or confirmed signs ofinfection present. (10:58 05/02/2020). --10:59 05/02/20 Freddy Blanchard RN10:54 05/02/20. BP: 121/85. MAP: 97. HR: 93. RR: 18. O2 saturation: 96% on room air. Temp: 98.7 F(oral). Pain level now: 010. --10:59 05/02/20 Freddy Blanchard RN.Weight: 83.9 kg measured. --10:52 05/02/20 Freddy Blanchard RN.Height/Length: 7 inches. BMI: 2678. --10:52 05/02/20 Freddy Blanchard RN.MedicationsSEROquel Oral (Tablet 300 mg) 1/2 tablet, daily at bedtime. --10:56 05/02/20 Freddy Blanchard RN.AllergiesNo Known Drug Allergy. --10:56 05/02/20 Freddy Blanchard RN.Dlgvixf95:59 05/02/20.PAST MEDICAL HX: Seizures. No history of [...] no deficiencies. 2 Clinical Report - Nurses [facility] Emergency Department [address] [place] [address] Phone #: ext- [phone] 05/02/2020 10:49 [id number] Sex: M : 1990 Age: 29y FUNCTIONAL [...] To room. --10:59 05/02/20 Freddy Blanchard RN.PHYSICAL AMZWVFORQQ41:05/02/20. To room via stretcher.GENERAL / NEURO / [...] 05/02/20. Cardiac rhythm: normal sinus rhythm; (1050). senior bi architect, NIBP monitor and pulse oximeter placed on patient; housing project manager- Lead II; monitor alarms on; monitor strip [...] at 75 3 Clinical Report - Nurses [facility] Emergency Department [address] [place] [address] Phone #: ext- [phone] 05/02/2020 10:49 Patient: CAMILO LAWSON A cct#: [id number] Sex: M : 1990 Age: 29ymL/hr over 5 hour(s) via site #1 via IV pump. Allergies verified and confirmed 5 rights. IV patencyestablished. IV site checked: no pain, redness, or swelling. IV flushed thoroughly pre- and post-medicationadministration. Information reviewed with patient. --11:43 05/02/20 Freddy Blanchard RNChecked patient name and birthdate. Blood samples drawn by tech. (7310). Finger stick glucose: 1140accu check 101. Portable chest x-ray completed. Shown to the PA (1120). Patient transported to [facility] with nurse and radiology transcriptionist. (1130). Patient returned from CT by stretcher with nurse andradiology tech. (1135). --11:44 05/02/20 Donovan Pretty precautions maintained: side rails up x2 and padded, suction and O2 at bedside, patient in view ofnCircadence's station and call abbasi in reach (1050). [...] Specimen labeled in the presenceof the patient (9901). --12:34 05/02/20 Freddy Blanchard RN12:44 05/02/2020 Tylenol [...] Blanchard RN 4 Clinical Report - Nurses [facility] Emergency Department [address] [place] [address] Phone #: ext- [phone] 05/02/2020 10:49 Patient: CAMILO LAWSON Sex: M : 1990 Age: 29y 13:34 05/02/2020 Tylenol PO Response: pain is improving. Symptoms have improved the patient feels better. Physician anatomic pathology assistant notified. --13:34 05/02/20 Freddy Blanchard RN 13:34 05/02/2020 Ativan PO Response: pain is improving. Symptoms have improved the patient feels better. Physician anatomic pathology assistant notified. --13:34 05/02/20 Freddy Blanchard RN [...] parent verbalized understanding. Written instructions provided in Emirati. The patient was discharged by the physician anatomic pathology assistant. He was discharged home and accompanied by parent. He left ambulatory and via private vehicle. Parent driving. --13:57 05/02/20 Freddy Blanchard RN 13:45 05/02/2020 Site #1 removed upon discharge. Catheter intact. Bandaid applied. --13:58 05/02/20 Freddy Blanchard RN.Locked/Released at 05/02/2020 16:59 by Freddy Blanchard RN Name Value Range Interpretation Code Description Data Cecy rce(s) Supporting Document(s) ID Date Data Source [id number] 05/02/2020 10:49:00 AM EDT [facility] 1 Clinical Report - Physicians/Mid Levels [facility] Emergency Department [address] [place] [address] Phone #: ext- [phone] 05/02/2020 10:49 Patient: CAMILO LAWSON Sex: M : 1990 Age: 29y Time [...] tumor. See old chart. Problems: Insomnia [Chronic]. [place] disorder. Lifestyle / Substance Problems. Neurological Disease. Bipolar Disorder. Obsessive Compulsive Disorder. ADHD - Attention Deficit Hyperactivity Disorder. Seizure. Tendonitis. STD - Sexually Transmitted Disease. 2 Clinical Report - Physicians/Mid Levels [facility] Emergency Department [address] [place] [address] Phone #: ext- [phone] 05/02/2020 10:49 Patient: CAMILO LAWSON Sex: M : 1990 Age: 29y Tbi. [...] 2+. 3 Clinical Report - Physicians/Mid Levels [facility] Emergency Department [address] [place] [address] Phone #: ext- [phone] 05/02/2020 10:49 Patient: CAMILO LAWSON Sex: M : 1990 Age: 29y Respiratory: [...] O2? Oxygen?(No) Room: ED Exam CHEST PORTABLE [facility] [address] [place] [address] PHONE: [phone] FAX: [phone] Name .................. : BENJAMÍN Navarro Acct Number.................. : [id number] ROOM. ................. : TR-07 MR Number ................... : [id number] Stay type ............. : E/R Discharge Date......... ... : Admit Date ......... : 05/02/20 Admit Phys .................... : SAQIB PA Date of ....... : 1990 Family Phys ................... : NON STAFF Phone .................. : [phone] Age ................................ : 29 Film# .................. .:[id number] Sex ................................. : M Unsigned transcriptions are preliminary reports and do not represent a medical or legal document CHEST PORTABLE [id number] COMPLETE:05/02/20 11:52 KBO [id number] Reason(s): seizure 4 Clinical Report - Physicians/Mid Levels [facility] Emergency Department [address] [place] [address] Phone #: ext- [phone] 05/02/2020 10:49 Patient: CAMILO LAWSON Sex: M : 1990 Age: 29y PORTABLE CHEST X-RAY: COMPARISON: 11/06/19 FINDI NGS: The cardiac and mediastinal silhouettes appear normal and the lungs are clear. The bones and soft tissues are normal. The upper abdomen is unremarkable. IMPRESSION: No acute disease identifiable. Electronically Reviewed and Signed By ZENAIDA SIGNDAGRACE SINGH Transcribe Initials: FIORELLA , Transcribe Date: 05/02/20 12:21, Dictation Date: <<REPDIST>> Page 1of 1Urinalysis: (LULU: 05/02/2020 12:30) ( [facility] 05/02/2020 12:52) Final results Test Result Flag [...] NONEDrug Screen- Urine: (LULU: 05/02/2020 12:30) ( [facility] 05/02/2020 12:52) Final results Test Result Flag Units (Reference) DRUG SCREEN URINE URINE DRUG SCREEN AMPHETAMINES NEGATIVE (NORMAL: NEGAT 5 Clinical Report - Physicians/Mid Levels [facility] Emergency Department [address] [place] [address] Phone #: ext- [phone] 05/02/2020 10:49 Patient: CAMILO LAWSON Sex: M : 1990 Age: 29y BARBITURATES [...] PERFORMED AT [facility].CMP: (LULU: 05/02/2020 11:13) ( MsgRcvd 05/02/2020 11:44) [...] Male GFR Interprentation 20-49 yrs >60 mL/min Esaxxm16-11 yrs >56 mL/min Normal 60-69 yrs >49 mL/min Normal 70-79yrs>42 mL/min Normal 80 and above >35 mL/min Normal Female GFRInterpretation 20-39 yrs >60 mL/min Normal 40-49 yrs >58 mL/minNormal 50-59 yrs >51 mL/min Normal 60-69 yrs >45 mL/min Ayncmc95-78 yrs >39 mL/min Normal 80 and above [...] 34.0) 6 Clinical Report - Physicians/Mid Levels [facility] Emergency Department [address] [place] [address] Phone #: ext- [phone] 05/02/2020 10:49 Patient: CAMILO LAWSON Sex: M : 1990 Age: 29y MCHC [...] MORPH NOT INDICATEDCPK: (LULU: 05/02/2020 11:13) ( [facility] 05/02/2020 11:44) Final results Test Result Flag Units (Reference) CPK 204 H U/L (30 - 170)Acetaminophen Level: (LULU: 05/02/2020 11:13) ( [facility] 05/02/2020 11:41) Final results Test Result Flag Units (Reference) ACETAMINOPHEN <5.0 UG/ML (0.0 - 30.0)Salicylate Level: (LULU: 05/02/2020 11:13) ( [facility] 05/02/2020 11:44) Final results Test Result Flag Units (Reference) SALICYLATE <0.3 L mg/dL (2.0 - 20.0)CT Head W/O Cont: (LULU: 05/02/2020 11:06) ( [facility] 05/02/2020 12:26) In ProgressCT HEAD W/O CONTRASTReason(s): Head PainTRANSPORTATION: WC IV? O2? Oxygen?(No) Room: ED CMTS: Seizure Exam CT HEAD W/O CONTRAST [facility] [address] [place] [address] PHONE: [phone] FAX: [phone] Name .................. : BENJAMÍN Navarro Acct Number.................. : [id number] ROOM. ................. : TR-07 MR Number ................... : [id number] Stay type ............. : E/R Discharge Date......... ... : Admit Date ......... : 05/02/20 Admit Phys .................... : SAQIB PA Date of ....... : 1990 Family Phys ................... : NON STAFF Phone .................. : [phone] Age ................................ : 29 Film# .................. .:[id number] Sex ................................. : M Unsigned transcriptions are preliminary reports and do not represent a medical or legal document CT HEAD W/O CONTRAST [id number] COMPLETE:05/02/20 11:52 KBO [id number] Reason(s): Head Pain 7 Clinical Report - Physicians/Mid Levels [facility] Emergency Department [address] [place] [address] Phone #: ext- [phone] 05/02/2020 10:49 Patient: CAMILO LAWSON Sex: M : 1990 Age: 29y CT [...] a 8 Clinical Report - Physicians/Mid Levels [facility] Emergency Department [address] [place] [address] Phone #: ext- [phone] 05/02/2020 10:49 Patient: CAMILO LAWSON Sex: M : 1990 Age: 29y few [...] cause, 9 Clinical Report - Physicians/Mid Levels [facility] Emergency Department [address] [place] [address] Phone #: ext- [phone] 05/02/2020 10:49 Patient: CAMILO LAWSON Sex: M : 1990 Age: 29yINSTRUCTIONS Take [...] instructions verbalized by patient. Follow-up with: [facility], , [id number], [facility] [place], [address] Follow up. Call for the next available appointment. Reason for referral: evaluation and treatment.(Electronically signed by Francisco J Saini P.A.-C 05/03/2020 10:57) Name Value Range Interpretation Code Description Data Cecy rce(s) Supporting Document(s) ID Date Data Source [id number] 05/02/2020 12:52:00 PM EDT [facility] Name Value Range Interpretation Code Description Data Cecy rce(s) Supporting Document(s) DRUG SCREEN URINE [facility] URINE DRUG SCREEN Amphetamine [Presence] in Urine by Screen method NEGATIVE NORMAL: N EGATIVE [facility] BARBITURATES NEGATIVE NORMAL: NEGATIVE [facility] BENZO NEGATIVE NORMAL: NEGATIVE [facility] COCAINE NEGATIVE NORMAL: NEGATIVE [facility] Tetrahydrocannabinol [Presence] in Urine NEGATIVE NORMAL: NEGATIVE [facility] OPIATES NEGATIVE NORMAL: NEGATIVE [facility] Phencyclidine [Presence] in Urine by Screen method NEGATIVE NOR MAL: NEGATIVE [facility] \\BLDo\\URINE DRUG SCR EEN INTERPRETATION\\BLDx\\ THE CUTOFFF LEVELS FOR DETECTION ARE FOLLOWS: AMPHETAMINES 1000 ng/ml BARBITUARATES 200 ng/ml BENZODIAZEPINES 100 ng/ml THC 50 ng/ml PHENCYCLIDINE 25 ng/ml OPIATES 300 ng/ml COCAINE 300 ng/ml ALL POSITIVES ARE CONSIDERED PRESUMPTIVE POSITIVE CONFIRMATION WILL BE PERFORMED AT PHYSICIAN REQUEST. ID Date Data Source [id number] 05/02/2020 12:52:00 PM EDT [facility] Name Value Range Interpretation Code Description Data Cecy rce(s) Supporting Document(s) URINALYSIS [facility] akanksha [facility] yellow NORMAL: Yellow [facility] CLARITY clear NORMAL: Clear [facility] Specific gravity of Urine by Test strip 1.020 1.001 - 1.030 [facility] pH 6 5 - 9 [facility] al Glucose [Mass/volume] in Urine by Test strip NORM NORMAL: Negat [facility] Bilirubin.total [Presence] in Urine by Test strip NEG NORMAL: Negative [facility] Ketones [Presence] in Urine by Test strip NEG NORMAL: Negative [facility] Protein [Mass/volume] in Urine by Test strip 15 NORMAL: Negat [facility] Nitrite [Presence] in Urine by Test strip NEG NORMAL: Negative [facility] BLOOD NEG NORMAL: Negative [facility] Leukocyte esterase [Presence] in Urine by Test strip NEG [place] L: Negative [facility] Urobilinogen [Mass/volume] in Urine by Test strip NOR less alida n 1.0 mg/dL [facility] MICROSCOPIC See Below [facility] ital WBC 0 - 1 NORMAL: NONE SEEN [facility] Erythrocytes [#/volume] in Urine by Test strip 0 - 1 NORMAL: NON E SEEN [facility] EPITHELIAL FEW NORMAL: NONE SEEN [facility] Bacteria [Presence] in Urine sediment by Light microscopy Tr mela NORMAL: NONE SEEN [facility] ID Date Data Source [id number] 05/06/2020 06:25:00 AM EDT [facility] Name Value Range Interpretation Code Description Data Cecy rce(s) Supporting Document(s) Prolactin [Mass/volume] in Serum or Plasma 12.7 ng/mL 4.0-15.2 [facility] ID Date Data Source [id number] 05/05/2020 08:12:00 AM EDT [facility] Name Value Range Interpretation Code Description Data Cecy rce(s) Supporting Document(s) Valproate [Mass/volume] in Serum or Plasma <4 ug/mL 50-100 L [facility] Verified by repeat analysis Detection Limit = 4 <4 indicates None Detected Toxicity may occur at levels of 100-500. Measurements of free unbound valproic acid may improve the assess- ment of clinical response. ID Date Data Source [id number] 05/02/2020 11:44:00 AM EDT [facility] Name Value Range Interpretation Code Description Data Cecy rce(s) Supporting Document(s) SALICYLATE <0.3 mg/dL 2.0 - 20.0 L [facility] ID Date Data Source [id number] 05/02/2020 11:44:00 AM EDT [facility] Name Value Range Interpretation Code Description Data Cecy rce(s) Supporting Document(s) Creatine kinase [Enzymatic activity/volume] in Serum or Plasma 2 04 U/L 30 - 170 H [facility] ID Date Data Source [id number] 05/02/2020 11:44:00 AM EDT [facility] Value Range Interpretation Code Description Data Cecy rce(s) Supporting Document(s) COMPREHENSIVE METABOLIC PANEL [facility] COMPREHENSIVE METABOLIC PANEL Sodium [Moles/volume] in Serum or Plasma 138 mEq/L 134 - 153 [facility] Potassium [Moles/volume] in Serum or Plasma 3.9 mEq/L 3.6 - 5.0 [facility] Chloride [Moles/volume] in Serum or Plasma 105 mEq/L 98 - 107 [facility] Carbon dioxide, total [Moles/volume] in Serum or Plasma 21 MEQ/L 22 - 30 L [facility] Glucose [Mass/volume] in Serum or Plasma 112 MG/DL 65 - 110 H [facility] BUN 10 MG/DL 7 - 21 [facility] Creatinine [Mass/volume] in Serum or Plasma 0.6 MG/DL 0.7 - 1.5 L [facility] BUN/CREAT 17 8 - 27 [facility] Protein [Mass/volume] in Serum or Plasma 6.6 G/DL 6.3 - 8.2 [facility] Albumin [Mass/volume] in Serum or Plasma 4.4 G/DL 3.9 - 5.0 [facility] Globulin [Mass/volume] in Serum by calculation 2.2 GM/DL 2.4 - 3.2 L [facility] A/G RATIO 2.0 0.8 - 2.0 [facility] Calcium [Mass/volume] in Serum or Plasma 8.7 MG/DL 8.4 - 10.2 [facility] Bilirubin.total [Mass/volume] in Serum or Plasma <0.7 MG/DL 0.2 - 1.3 [facility] Alkaline phosphatase [Enzymatic activity/volume] in Serum or Plasma 112 U/L 38 - 126 [facility] Aspartate aminotransferase [Enzymatic activity/volume] in Serum or Plasma 25 U/L 5 - 40 [facility] Alanine aminotransferase [Enzymatic activity/volume] in Seru m or Plasma 28 U/L 7 - 56 [facility] Anion gap 3 in Serum or Plasma 12.0 mmol/L 8.0 - 16.0 [facility] AGE 29 yrs [facility] al NON-AA GFR >60 mL/min [facility] ital AFR AMER GFR >60 mL/min [facility] Male GFR In [...] >32 mL/min Normal ID Date Data Source [id number] 05/02/2020 11:41:00 AM EDT [facility] Name Value Range Interpretation Code Description Data Cecy rce(s) Supporting Document(s) Acetaminophen [Presence] in Urine <5.0 UG/ML 0.0 - 30.0 [facility] ID Date Data Source [id number] 05/02/2020 11:40:00 AM EDT [facility] Name Value Range Interpretation Code Description Data Cecy rce(s) Supporting Document(s) CBC W/AUTOMATED DIFF [facility] COMPLETE BLOOD COUNT Leukocytes [#/volume] in Blood by Automated count 6.9 10^3/uL 4.2 - 1 1.0 [facility] Erythrocytes [#/volume] in Blood by Automated count 5.08 10^6/uL 4. 50 - 6.30 [facility] Hemoglobin [Mass/volume] in Blood 15.1 g/dL 14.0 - 16.0 [facility] Hematocrit [Volume Fraction] of Blood by Automated count 44.7 % 4 1.0 - 51.0 [facility] Erythrocyte mean corpuscular volume [Entitic volume] by Auto mated count 88.0 fL 80.0 - 94.0 [facility] Erythrocyte mean corpuscular hemoglobin [Entitic mass] by Automated count 29.7 pg 27.0 - 34.0 [facility] Erythrocyte mean corpuscular hemoglobin concentration [Mass/volume] by Automated count 33.8 g/dL 31.0 - 36.0 [facility] Erythrocyte distribution width [Ratio] by Automated count 12.4 % 11.5 - 14.8 [facility] Platelets [#/volume] in Blood by Automated count 255 10^3/uL 150 - 45 0 [facility] Platelet mean volume [Entitic volume] in Blood by Automated count 9.9 fL 7.4 - 10.4 [facility] Neutrophils/100 leukocytes in Blood by Automated count 74.4 % 37. 0 - 80.0 [facility] Lymphocytes/100 leukocytes in Blood by Manual count 14.6 % 25.0 - 40.0 L [facility] Monocytes/100 leukocytes in Blood by Automated count 7.5 % 3.0 - 8.0 [facility] Eosinophils/100 leukocytes in Blood by Automated count 1.9 % 0.0 - 7.0 [facility] Basophils/100 leukocytes in Blood by Automated count 0.6 % 0.0 - 2.0 [facility] %IG 1.0 % 0.0 - 0.0 [facility] Hospit al %NRBC 0.0 % 0.0 - 0.0 [facility] al Neutrophils [#/volume] in Blood by Automated count 5.15 10^3/uL 2.00 - 6.90 [facility] Lymphocytes [#/volume] in Blood by Automated count 1.01 10^3/uL 0.60 - 3.40 [facility] Monocytes [#/volume] in Blood by Automated count 0.52 10^3/uL 0.00 - 0.90 [facility] Eosinophils [#/volume] in Blood by Automated count 0.13 10^3/uL 0.00 - 0.70 [facility] Basophils [#/volume] in Blood by Automated count 0.04 10^3/uL 0.00 - 0.20 [facility] #IG 0.07 10^3/uL 0.00 - 0.10 [facility]spital #NRBC 0.00 10^3/uL 0.00 - 0.00 [facility] MANUAL DIFF NOT INDICATED [facility] RBC MORPH NOT INDICATED [facility] spital ID Date Data Source [id number] 12/11/2019 07:07:00 PM EST [facility] 1 OrderSheet [facility] Emergency Department [address] [place] [address] Phone #: ext- [phone] 12/11/2019 19:05 Patient: CAMILO LAWSON Sex: M : 1990 Age: 29yWEIGHT:88.4 kg [...] rce(s) Supporting Document(s) ID Date Data Source [id number] 12/11/2019 07:07:00 PM EST [facility] 1 Medication Reconciliation Report [facility] Emergency Department [address] [place] [address] Phone #: ext- [phone] 12/11/2019 19:05 Patient: CAMILO LAWSON Sex: M : 1990 Age: 29yWeight: 88.4 [...] rce(s) Supporting Document(s) ID Date Data Source [id number] 12/11/2019 07:07:00 PM [facility] 1 Medication Administration Record [facility] Emergency Department [address] [place] [address] Phone #: ext- [phone] 19:05 Patient: CAMILO LAWSON Sex: M : 1990 Age: 29yWeight: 88.4 kgHeight/Length: 72 inBMI: 26.5ALLERGIES: No Known Drug AllergyDate/Time Medication Administered Medication Ordered Name Value Range Interpretation Code Description Data Cecy rce(s) Supporting Document(s) ID Date Data Source [id number] 12/11/2019 07:07:00 PM EST [facility] 1 General Instructions [facility] Emergency Department [address] [place] [address] Phone #: ext- [phone] 12/11/2019 19:05 Patient: CAMILO LAWSON Sex: Chelo : 1990 Age: 29yChlamydia; gonorrhea; syphilis; HIV [...] positive, contact your healthcare provider, local clinic, [facility] to be treated, or return to our facility. You will be prescribed antibiotic medicine. Be sure to take all of the antibiotic as prescribed until it is gone or you are told to stop. Keep taking it even if you feel better. 2 General Instructions [facility] Emergency Department [address] [place] [address] Phone #: [phone]- [phone] 12/11/2019 19:05 Patient: CAMILO LAWSON Sex: M : 1990 Age: 29y Both [...] Follow [facility] with your provider or [facility] for complete STI screening, including HIV testing, and to consider ways to prevent HIV.For more information about STIs, call the CDC information line at 166-635-1780 or look at the [facility]lectrochaeabsite online.When to seek medical adviceCall your healthcare [...] p ain or scrotal swelling in men 0319-7505 [employer]. [address] [place] [address]. All rights reserved. This information is not intended as asubstitute for professional medical care. Always follow your healthcare professional's instructions. You have been given the following additional information: Testing for Suspected STI 3 General Instructions [facility] Emergency Department [address] [place] [address] Phone #: ext- [phone] 12/11/2019 19:05 Patient: CAMILO LAWSON Sex: M : 1990 Age: 29y(Electronically signed by HUMERA Kan 12/11/2019 21:47) Name Value Range Interpretation Code Description Data Cecy rce(s) Supporting Document(s) ID Date Data Source [id number] 12/11/2019 07:07:00 PM EST [facility] 1 Clinical Report - Nurses [facility] Emergency Department [address] [place] [address] Phone #: [phone]- [phone] 12/11/2019 19:05 Patient: CAMILO LAWSON Sex: M : 1990 Age: 29yTRIAGEArrived by private vehicle. Historian: patient. Accompanied by (Dropped off by Medicaid cab).Triage time: 19:05 12/11/2019. Acuity: LEVEL 5.Chief Complaint: (Requests STD testing).Alert.This started today. ( Pt states "i would like to make sure i don't have no diseases". Pt denies anysymptoms;). 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 Negative (no infection suspected/documented). (19:10 [...] and oral 2 Clinical Report - Nurses [facility] Department [address] [place] [address] Phone #: ext- [phone] 12/11/2019 19:05 Patient: CAMILO LAWSON Sex: M : 1990 Age: 29y consent [...] Hernandez R.N. 3 Clinical Report - Nurses [facility] Emergency Department [address] [place] [address] Phone #: ext- [phone] 12/11/2019 19:05 Patient: CAMILO LAWSON Sex: M : 1990 Age: 29yDISPOSITION / DISCHARGE Departure time: 19:56 12/11/2019. Condition at departure: stable. No learning barriers present. Reviewed warnings. Reviewed medication(s). Treatments reviewed. Reviewed referrals. Patient verbalized understanding. Written instructions provided in Emirati. The patient was discharged by the physician anatomic pathology assistant. He was discharged home and unaccompanied [...] rce(s) Supporting Document(s) ID Date Data Source [id number] 12/11/2019 07:07:00 PM [facility] 1 Clinical Report - Physicians/Mid Levels [facility] Emergency Department [address] [place] [address] Phone #: ext- [phone] 12/11/2019 19:05 Patient: CAMILO LAWSON Sex: M : 1990 Age: 29y Time [...] inspection. 2 Clinical Report - Physicians/Mid Levels [facility] Emergency Department [address] [place] [address] Phone #: ext- [phone] 12/11/2019 19:05 Patient: CAMILO LAWSON Sex: M : 1990 Age: 29y CVS: [...] Testing).INSTRUCTIONS 3 Clinical Report - Physicians/Mid Levels [facility] Emergency Department [address] [place] [address] Phone #: ext- [phone] 12/11/2019 19:05 Patient: CAMILO LAWSON Sex: M : 1990 Age: 29y Your [...] rce(s) Supporting Document(s) ID Date Data Source [id number] 12/13/2019 08:10:00 AM [facility] Name Value Range Interpretation Code Description Data Cecy rce(s) Supporting Document(s) HIV 1+2 Ab+HIV1 p24 Ag [Presence] in Serum or Plasma b y Immunoassay Non Reactive Non Reactive [facility] ID Date Data Source [id number] 12/11/2019 08:51:00 PM [facility] Name Value Range Interpretation Code Description Data Cecy rce(s) Supporting Document(s) Treponema pallidum Ab [Presence] in Serum NON-REACTIVE NORMAL:NON MELBA CTIVE [facility] ID Date Data Source [id number] 12/14/2019 06:49:00 PM [facility] Name Value Range Interpretation Code Description Data Cecy rce(s) Supporting Document(s) Chlamydia trachomatis rRNA [Presence] in Unspecified specimen by Probe and target amplification method Negative Negative [facility] Neisseria gonorrhoeae rRNA [Presence] in Unspecified specimen by Probe and target amplification method Negative Negative [facility] ID Date Data Source [id number] 12/11/2019 07:34:00 PM [facility] Name Value Range Interpretation Code Description Data Cecy rce(s) Supporting Document(s) URINALYSIS [facility] akanksha URINALYSIS SOURCE R [facility] al COLOR yellow NORMAL: Yellow [facility] CLARITY clear NORMAL: Clear [facility] sp[facility] Specific gravity of Urine by Test strip 1.010 1.001 - 1.030 [facility] pH 6 5 - 9 [facility] Glucose [Mass/volume] in Urine by Test strip NORM NORMAL: Negat [facility] Bilirubin.total [Presence] in Urine by Test strip NEG NORMAL: Negative [facility] Ketones [Presence] in Urine by Test strip NEG NORMAL: Negative [facility] Protein [Mass/volume] in Urine by Test strip NEG NORMAL: Negat [facility] Nitrite [Presence] in Urine by Test strip NEG NORMAL: Negative [facility] BLOOD NEG NORMAL: Negative [facility] Leukocyte esterase [Presence] in Urine by Test strip NEG TR[place] L: Negative [facility] Urobilinogen [Mass/volume] in Urine by Test strip NOR less alida n 1.0 mg/dL [facility] MICROSCOPIC Not Indicate [facility] ID Date Data Source [id number] 11/07/2019 08:51:00 [place] [address] RESPIRATORY CARE REPORT ==== ---------NAME------- NUMBER SEX AGE ADMIT DISC. XRAY# F/C JULIAN Navarro [id number] 11/06/19 11/06/19 [id number] XBE E/R DATE OF : 1990 M/R# [id number] #: [id number] TR-07 LOCATION: EMERGENCY DEPT EKG [id number] COMP LETE:11/07/19 03:07 [place] [id number] PHYSICIAN: SOLEDAD SAINI CH Name Value Range Interpretation Code Description Data Cecy rce(s) Supporting Document(s) ID Date Data Source [id number] 11/07/2019 04:06:00 [place] [address] PHONE: [phone] FAX: [phone] Name .................. : BENJAMÍN Navarro Acct Number.................. : [id number] ROOM. ................. : TR- Number ................... : [id number] Stay type ............. : E/R Discharge Date......... ... : 11/06/19 Admit Date ......... : 11/06/19 Admit Phys .................... : SOLEDAD L Date of ....... : 1990 Family Phys ................... : NON STAFF Phone .................. : [phone] Age ................................ : 29 Film# .................. .:[id number] Sex ................................. : M Unsigned transcriptions are preliminary reports and do not represent a medical or legal document CHEST 2 VIEWS [id number] COMPLETE:11/06/19 14:30 KBO 51235 Reason(s): transient lightheadedness; resolved CHEST X-RAY: 2- VIEWS INDICATION: Transient lightheadedness, which has now resolved. FINDINGS: The cardiac and mediastinal silhouettes appear normal and the lungs are clear. The bones and soft tissues are normal. The upper abdomen is unremarkable. IMPRESSION: No acute disease identifiable. Electronically Reviewed and Signed By Kevin Ponce M.D. , 11/07/19 16:06, HIDeangelo Transcribe Initials: FIORELLA , Transcribe Date: 11/06/19 18:06, Dictation Date: Copy for: PARVEEN GALLAGHER via fax Copy for: EMERGENCY DEPT via modem Copy for: 710 MED REC DISCHARGED Page 1 of 1 Name Value Range Interpretation Code Description Data Cecy rce(s) Supporting Document(s) ID Date Data Source [id number] 11/06/2019 10:57:00 AM EST [facility] 1 OrderSheet [facility] Emergency Department [address] [place] [address] Phone #: ext- [phone] 11/06/2019 10:53 Patient: CAMILO LAWSON Sex: M : 1990 Age: 29yWEIGHT:87.2 kg (M) HEIGHT:69 inches (E) BMI:28.4ALLERGIES: No Known Drug AllergyLAB ORDERSOrder Description Priority Entered Acknowledged InitialedCBC w Diff STAT 11:22 11/06/2019 11:28 [place] Francisco J Saini filler leaf cutter long, Cornelio ER P.A.-C; [id number] STAT 11:11/06/2019 11:28 [place] Francisco J Saini filler leaf cutter long, Cornelio ER P.A.-C; [id number] (Clean STAT 11:11/06/2019 11:28 [facility]) Francisco J Saini filler leaf cutter long, Cornelio ER P.A.-C; [id number] Nasal A B STAT 11:22 11/06/2019 11:50 Zoss, January Francisco J Lawson.N. P.A.-C;HIV RNA Quant STAT 11:11/06/2019 11:43 [place] Francisco J Saini filler leaf cutter long, Cornelio ER P.A.-C; Tech1 NOTES: ER HIV lab; pt requests. Need waiver signedDIAGNOSTIC STUDY ORDERSOrder Description Priority Entered Acknowledged InitialedChest 2 View STAT 11:57 11/06/2019 12:01 ZossJanuary(Oxygen?(No)) Francisco J Lawson.N. P.A.-C; Reason for Study: transient lightheadedness; resolvedMEDICATION/IV/DRIP/FLUID ORDERSOrder Description Priority Entered Acknowledged InitialedIV NS : Bolus 500 11:22 11/06/2019 Cancelled: Patient Refusal 11:50 Zoss,mL, then 125 mL/hr Francisco J Carrasquillo R.N., P.A.-C;GENERAL ORDERSOrder Description Priority Entered Acknowledged InitialedNPO 11:11/06/2019 11:33 Neida Strickland R.N., P.A.-C; 2 OrderSheet [facility] Emergency Department [address] [place] [address] Phone #: [phone]- [phone] 11/06/2019 10:53 Patient: CAMILO LASWON Sex: M : 1990 Age: 29ySaline Lock 11:11/06/2019 Cancelled: Patient Refusal 11:50 Francisco J Strickland R.N.;EKG 11:11/06/2019 Ack'd: 11:30 11:43 Ruthann Saini [place] filler leaf cutter long, filler leaf cutter long, Cornelio BENNETT P.A.-C; Cornelio BENNETT Tech1 Tech1[Electronically signed by Neida tSrickland R.N. (13:11/06/2019)][Electronically signed by Francisco J Saini P.A.-C (01:28 11/07/2019)][Electronically locked by Neida Strickland R.N. (13:11/06/2019)] Name Value Range Interpretation Code Description Data Cecy rce(s) Supporting Document(s) ID Date Data Source [id number] 11/06/2019 10:57:00 AM EST [facility] 1 Medication Reconciliation Report [facility] Emergency Department [address] [place] [address] Phone #: ext- [phone] 11/06/2019 10:53 Patient: CAMILO LAWSON Sex: M : 1990 Age: 29yWeight: 87.2 kgHeight/Length: 69 in.BMI: 28.4ALLERGIES: No Known Drug AllergyThe patient's Home Medications are listed below:THE FOLLOWING MEDICATIONS NEED TO BE RECONCILED: SEROquel OralThe source(s) of the original Home Medication information:Not obtained.The following Medications were given to the patient in the Emergency Department:None.The following Medications were prescribed to the patient:None. Name Value Range Interpretation Code Description Data Cecy [facility](s) Supporting Document(s) ID Date Data Source [id number] 11/06/2019 10:57:00 AM [facility] 1 Medication Administration Record [facility] Emergency Department [address] [place] [address] Phone #: ext- [phone] 10:53 Patient: CAMILO LAWSON Sex: M : 1990 Age: 29yWeight: 87.2 kgHeight/Length: 69 inBMI: 28.4ALLERGIES: No Known Drug AllergyDate/Time Medication Administered Medication Ordered Name Value Range Interpretation Code Description Data Cecy rce(s) Supporting Document(s) ID Date Data Source [id number] 11/06/2019 10:57:00 AM [facility] 1 General Instructions [facility] Emergency Department [address] [place] [address] Phone #: ext- [phone] 11/06/2019 10:53 Patient: CAMILO LAWSON Sex: M : 1990 Age: 29y(Transient brief [...] rce(s) Supporting Document(s) ID Date Data Source [id number] 11/06/2019 10:57:00 AM EST [facility] 1 Clinical Report - Nurses [facility] Emergency Department [address] [place] [address] Phone #: [phone]- [phone] 11/06/2019 10:53 Patient: CAMILO LAWSON Sex: M : 1990 Age: 29yTRIAGEHistorian: patient.Triage time: 10:53 11/06/2019. Acuity: LEVEL 3.Chief Complaint: (lightheaded.).Alert. No acute distress.( pt c/o being lightheaded for past hour. denies n/v/d, denies head injury, denies etoh.).SEPSIS SCREEN: NEGATIVE. Negative (no infection suspected/documented). --10:57 11/06/19 Neida Strickland R.N.10:53 11/06/19. BP: 130/92. MAP: 104. HR: 80. RR: 17. O2 saturation: 98%. Temp: 97.1 F. Pain levelnow: 010. --10:57 11/06/19, January, R.N.Weight: 87.2 kg measured. Height/Length: 69 inches Estimated. BMI: 28.4. --10:52 11/06/19January,R.N.MedicationsSEROquel Oral. --10:54 11/06/19January, R.N.AllergiesNo Known Drug Allergy. --10:54 11/06/19, January, R.N.PROBLEMS:Ocd.Paranoid schizophrenia.Tbi. --10:56 11/06/19January, R.N.ADHD - Attention [...] of CRE. 2 Clinical Report - Nurses [facility] Emergency Department [address] [place] [address] Phone #: ext- [phone] 11/06/2019 10:53 Patient: CAMILO LAWSON Sex: M : 1990 Age: 29y SELF [...] and shown to the PA. --11:43 11/06/19 [place] filler leaf cutter longCornelio ER Tech1 11:40 11/06/19. Patient ID band checked for patient name and birthdate: patient confirmed. Flu swab obtained by RN via nasal swab. Labeled in the presence of the patient and sent to lab. --11:50 11/06/19 Neida Strickland R.N. 3 Clinical Report - Nurses [facility] Emergency Department [address] [place] [address] Phone #: ext- [phone] 11/06/2019 10:53 Patient: CAMILO LAWSON Sex: M : 1990 Age: 29y 11:45 11/06/19. ( blood drawn by labor relations worker.). --11:51 11/06/19 Neida Strickland R.N. ( RN [...] he either has to come [facility] and sign them out or see a pcp and they will request results and discuss treatment if he is positive. pt verbalized understanding.). --13:03 11/06/19 eNida Strickland R.N.DISPOSITION / DISCHARGE 13:00 11/06/19. BP: 126/86. HR: 73. RR: 17. O2 saturation: 99%. Temp: 98.2 F. Pain level now 0/10. --13:00 11/06/19 [place] filler leaf cutter longCornelio Rivera, DONALD Tech1 Condition at departure: improved and stable. No learning barriers present. Discharge instructions provided and reviewed with the patient. Patient verbalized understanding. Written instructions provided in Emirati. The patient was discharged by the physician anatomic pathology assistant. He was discharged home. He left ambulatory and via taxi. 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 --13:01 11/06/19 Neida Strickland R.N.Locked/Released at 11/06/2019 13:03 by Neida Strickland R.N. Name Value Range Interpretation Code Description Data Cecy rce(s) Supporting Document(s) ID Date Data Source [id number] 11/06/2019 10:57:00 AM EST [facility] 1 Clinical Report - Physicians/Mid Levels [facility] Emergency Department [address] [place] [address] Phone #: ext- [phone] 11/06/2019 10:53 Patient: CAMILO LAWSON Sex: M : 1990 Age: 29y Time [...] HISTORYSee nurses notes. Seizures. Problems: Insomnia [Chronic]. [place] disorder. Lifestyle / Substance Problems. Neurological Disease. Bipolar Disorder. ADHD - Attention Deficit Hyperactivity Disorder. Other Disease. Seizure Disorder. Tendonitis. Tension-Type Headache. Obsessive Compulsive Disorder. Ocd. Paranoid schizophrenia. Tbi. 2 Clinical Report - Physicians/Mid [facility] Emergency Department [address] [place] [address] Phone #: ext- [phone] 11/06/2019 10:53 [id number] Sex: M : 1990 Age: 29y Pneumonia [...] normal. 3 Clinical Report - Physicians/Mid Levels [facility] Emergency Department [address] [place] [address] Phone #: ext- [phone] 11/06/2019 10:53 Patient: [facility] LAWSON [id number] Sex: M : 1990 Age: 29yLABS, X-RAYS, [...] 70-79yrs 4 Clinical Report - Physicians/Mid Levels [facility] Emergency Department [address] [place] [address] Phone #: ext- [phone] 11/06/2019 10:53 Patient: CAMILO LAWSON Sex: M : 1990 Age: 29y >42 [...] A B: (LULU: 11/06/2019 11:35) ( [facility] 11/06/2019 12:11) Final results Test Result Flag Units (Reference) INFLUENZA A NEGATIVE (NORMAL: NEGAT INFLUENZA B NEGATIVE (NORMAL: NEGAT INFLUENZA A REENTER NEGATIVE (NORMAL: NEGAT INFLUENZA B REENTER NEGATIVE (NORMAL: NEGAT PROCEDURAL CONTROL VALID KIT LOT # _[id number] 11/06/19.1210. . KIT EXP DATE _07.16.20 11/06/19.1. .The Influenza A utilizin g an isothermal nucleic acid amplification technology for thequalitative detection of influenza A and B viral RNA.Negative results do not preclude influenza virus infection and should not beused as the sole basis for diagnosis, treatment or other patient managementdecisions. HIV RNA Quant: (LULU: 11/06/2019 11:22) ( [facility] 11/06/2019 11:30) Canceled CMTS: ER HIV lab; [...] results. 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 6 Clinical Report - Physicians/Mid Levels [facility] Emergency Department [address] [place] [address] Phone #: ext- [phone] 11/06/2019 10:53 Patient: CAMILO LAWSON Sex: M : 1990 Age: 29y(Electronically signed by Francisco J Saini P.A.-C 11/07/2019 01:28) Name Value Range Interpretation Code Description Data Cecy rce(s) Supporting Document(s) ID Date Data Source [id number] 11/07/2019 10:12:00 AM [facility] Name Value Range Interpretation Code Description Data Cecy rce(s) Supporting Document(s) HIV 1+2 Ab+HIV1 p24 Ag [Presence] in Serum or Plasma b y Immunoassay Non Reactive Non Reactive [facility] ID Date Data Source [id number] 11/06/2019 12:10:00 PM [facility] Name Value Range Interpretation Code Description Data Cecy rce(s) Supporting Document(s) COMPREHENSIVE METABOLIC PANEL [facility] COMPREHENSIVE METABOLIC PANEL Sodium [Moles/volume] in Serum or Plasma 141 mEq/L 134 - 153 [facility] Potassium [Moles/volume] in Serum or Plasma 4.0 mEq/L 3.6 - 5.0 [facility] Chloride [Moles/volume] in Serum or Plasma 105 mEq/L 98 - 107 [facility] Carbon dioxide, total [Moles/volume] in Serum or Plasma 26 MEQ/L 22 - 30 [facility] Glucose [Mass/volume] in Serum or Plasma 98 MG/DL 65 - 110 [facility] BUN 17 MG/DL 7 - 21 [facility] Creatinine [Mass/volume] in Serum or Plasma 0.7 MG/DL 0.7 - 1.5 [facility] BUN/CREAT 24 8 - 27 [facility] Protein [Mass/volume] in Serum or Plasma 6.7 G/DL 6.3 - 8.2 [facility] Albumin [Mass/volume] in Serum or Plasma 4.3 G/DL 3.9 - 5.0 [facility] Globulin [Mass/volume] in Serum by calculation 2.4 GM/DL 2.4 - 3.2 [facility] A/G RATIO 1.8 0.8 - 2.0 [facility] Calcium [Mass/volume] in Serum or Plasma 9.5 MG/DL 8.4 - 10.2 [facility] Bilirubin.total [Mass/volume] in Serum or Plasma 0.8 MG/DL 0.2 - 1.3 [facility] Alkaline phosphatase [Enzymatic activity/volume] in Serum or Plasma 107 U/L 38 - 126 [facility] Aspartate aminotransferase [Enzymatic activity/volume] in Serum or Plasma 18 U/L 5 - 40 [facility] Alanine aminotransferase [Enzymatic activity/volume] in Seru m or Plasma 24 U/L 7 - 56 [facility] Anion gap 3 in Serum or Plasma 10.0 mmol/L 8.0 - 16.0 [facility] AGE 29 yrs [facility] al NON-AA GFR >60 mL/min [facility] ital AFR AMER GFR >60 mL/min [facility] Male GFR In [...] >32 mL/min Normal ID Date Data Source [id number] 11/06/2019 11:57:00 AM EST [facility] Name Value Range Interpretation Code Description Data Cecy rce(s) Supporting Document(s) CBC W/AUTOMATED DIFF [facility] COMPLETE BLOOD COUNT Leukocytes [#/volume] in Blood by Automated count 6.8 10^3/uL 4.2 - 1 1.0 [facility] Erythrocytes [#/volume] in Blood by Automated count 5.42 10^6/uL 4. 50 - 6.30 [facility] Hemoglobin [Mass/volume] in Blood 16.1 g/dL 14.0 - 16.0 H [facility] Hematocrit [Volume Fraction] of Blood by Automated count 47.4 % 4 1.0 - 51.0 [facility] Erythrocyte mean corpuscular volume [Entitic volume] by Auto mated count 87.5 fL 80.0 - 94.0 [facility] Erythrocyte mean corpuscular hemoglobin [Entitic mass] by Automated count 29.7 pg 27.0 - 34.0 [facility] Erythrocyte mean corpuscular hemoglobin concentration [Mass/volume] by Automated count 34.0 g/dL 31.0 - 36.0 [facility] Erythrocyte distribution width [Ratio] by Automated count 12.4 % 11.5 - 14.8 [facility] Platelets [#/volume] in Blood by Automated count 237 10^3/uL 150 - 45 0 [facility] Platelet mean volume [Entitic volume] in Blood by Automated count 9.5 fL 7.4 - 10.4 [facility] Neutrophils/100 leukocytes in Blood by Automated count 69.2 % 37. 0 - 80.0 [facility] Lymphocytes/100 leukocytes in Blood by Manual count 20.1 % 25.0 - 40.0 L [facility] Monocytes/100 leukocytes in Blood by Automated count 7.3 % 3.0 - 8.0 [facility] Eosinophils/100 leukocytes in Blood by Automated count 2.2 % 0.0 - 7.0 [facility] Basophils/100 leukocytes in Blood by Automated count 0.6 % 0.0 - 2.0 [facility] %IG 0.6 % 0.0 - 0.0 [facility] % 0.0 - 0.0 [facility] Neutrophils [#/volume] in Blood by Automated count 4.73 10^3/uL 2.00 - 6.90 [facility] Lymphocytes [#/volume] in Blood by Automated count 1.37 10^3/uL 0.60 - 3.40 [facility] Monocytes [#/volume] in Blood by Automated count 0.50 10^3/uL 0.00 - 0.90 [facility] Eosinophils [#/volume] in Blood by Automated count 0.15 10^3/uL 0.00 - 0.70 [facility] Basophils [#/volume] in Blood by Automated count 0.04 10^3/uL 0.00 - 0.20 [facility] #IG 0.04 10^3/uL 0.00 - 0.10 [facility] #NRBC 0.00 10^3/uL 0.00 - 0.00 [facility] ospital MANUAL DIFF NOT INDICATED [facility] RBC MORPH NOT INDICATED [facility] ID Date Data Source [id number] 11/06/2019 12:11:00 PM EST [facility] Name Value Range Interpretation Code Description Data Cecy rce(s) Supporting Document(s) Influenza virus A Ag [Presence] in Nasopharynx by Immunoassa y NEGATIVE NORMAL: NEGATIVE [facility] Influenza virus B Ag [Presence] in Nasopharynx by Immunoassa y NEGATIVE NORMAL: NEGATIVE [facility] NEGATIVENEGATIVE PROCEDURAL CO NTROL VALID KIT LOT # _[id number] 11/06/19 . KIT EXP DATE _07.16.20 11/06/19. .The Influenza A & B assay is a rapid molecular in vitro diagnostic testutilizing an isothermal nucleic acid amplification technology for thequalitative detection of influenza A and B viral RNA.Negative results do not preclude influenza virus infection and should not beused as the sole basis for diagnosis, treatment or other patient managementdecisions. ID Date Data Source [id number] 11/06/2019 11:55:00 AM EST [facility] Name Value Range Interpretation Code Description Data Cecy rce(s) Supporting Document(s) [facility] COLOR yellow NORMAL: Yellow [facility] CLARITY clear NORMAL: Clear [facility] Specific gravity of Urine by Test strip 1.020 1.001 - 1.030 [facility] pH 7 5 - 9 [facility] Glucose [Mass/volume] in Urine by Test strip NORM NORMAL: Negat [facility] Bilirubin.total [Presence] in Urine by Test strip NEG NORMAL: Negative [facility] Ketones [Presence] in Urine by Test strip NEG NORMAL: Negative [facility] Protein [Mass/volume] in Urine by Test strip NEG NORMAL: Negat [facility] Nitrite [Presence] in Urine by Test strip NEG NORMAL: Negative [facility] BLOOD NEG NORMAL: Negative [facility] Leukocyte esterase [Presence] in Urine by Test strip NEG [place] L: Negative [facility] Urobilinogen [Mass/volume] in Urine by Test strip 4 less alida n 1.0 mg/dL [facility] MICROSCOPIC Not Indicate [facility] Procedure Social History Code Duration Value Status Description Data Source(s ) Smoking 11/17/2020 12:00:00 AM EST Smoker, current status unkn own completed Smoker, current status unknown [facility] ([facility]) Smoking 11/02/2020 12:00:00 AM EST Smoker, current status unkn own completed Smoker, current status unknown [facility] ([facility]) Smoking 10/20/2020 12:00:00 AM EST Smoker, current status unkn own completed Smoker, current status unknown [facility] ([facility]) Smoking 09/24/2020 12:00:00 AM EST Smoker, current status unkn own completed Smoker, current status unknown [facility] ([facility]) Smoking 09/02/2020 12:00:00 AM EST Smoker, current status unkn own completed Smoker, current status unknown [facility] ([facility]) Smoking 08/19/2020 12:00:00 AM EDT Smoker, current status unkn own completed Smoker, current status unknown [facility] ([facility]) Smoking 08/18/2020 12:00:00 AM EDT Smoker, current status unkn own completed Smoker, current status unknown [facility] ([facility]) Smoking 07/29/2020 12:00:00 AM EDT Smoker, current status unkn own completed Smoker, current status unknown [facility] ([facility]) Smoking 07/22/2020 12:00:00 AM EDT Smoker, current status unkn own completed Smoker, current status unknown [facility] ([facility]) Smoking 07/10/2020 12:00:00 AM EDT Smoker, current status unkn own completed Smoker, current status unknown [facility] ([facility]) Smoking 04/13/2020 12:00:00 AM EDT Smoker, current status unkn own completed Smoker, current status unknown [facility] ([facility]) Smoking 02/24/2020 12:00:00 AM EDT Smoker, current status unkn own completed Smoker, current status unknown [facility] ([facility]) Smoking 02/19/2020 12:00:00 AM EDT Smoker, current status unkn own completed Smoker, current status unknown [facility] ([facility]) Smoking 01/28/2020 12:00:00 AM EDT Smoker, current status unkn own completed Smoker, current status unknown [facility] ([facility]) Smoking 01/10/2020 12:00:00 AM EDT Smoker, current status unkn own completed Smoker, current status unknown [facility] ([facility]) Smoking 12/26/2019 12:00:00 AM EST Smoker, current status unkn own completed Smoker, current status unknown [facility] ([facility]) Smoking 12/09/2019 12:00:00 AM EST Smoker, current status unkn own completed Smoker, current status unknown [facility] ([facility]) Smoking 10/21/2019 12:00:00 AM EST Smoker, current status unkn own completed Smoker, current status unknown [facility] ([facility])
[2020-12-18] MEDS ORDERED: MULTIVITAMINS/MINERALS THERAP 1 TAB PO SCH (09:00)
[2020-12-18] MEDS ORDERED: THIAMINE 100 MG TAB PO SCH (09:00)
[2020-12-18] MEDS ORDERED: FOLIC ACID 1 MG TAB PO SCH (09:00)
== END 2020-12-18 08:50 | disposition home or self-care (01) ==
LOC: M ED 08:03
DX: F10.10 Alcohol abuse, uncomplicated (principal); F17.200 Nicotine dependence, unspecified, uncomplicated; Z79.899 Other long term (current) drug therapy; Z88.1 Allergy status to other antibiotic agents

== ENCOUNTER 2021-01-02 18:02 | Emergency (ER) | payer MEDICAID ==
[~2021-01-02] VITALS: Ht 175.3 cm; Wt 89.0 kg
[2021-01-02 19:51] VITALS: BP 142/90
== END 2021-01-02 19:45 | disposition home or self-care (01) ==
LOC: M ED 18:02
DX: F43.0 Acute stress reaction (principal); F20.9 Schizophrenia, unspecified; R56.9 Unspecified convulsions; Z87.820 Personal history of traumatic brain injury; F17.200 Nicotine dependence, unspecified, uncomplicated; Z79.899 Other long term (current) drug therapy; Z88.8 Allergy status to other drugs, medicaments and biological substances
CPT/HCPCS: 99284; U0003

== ENCOUNTER 2021-01-04 12:25 | Emergency (ER) | payer MEDICAID ==
[~2021-01-04] VITALS: Ht 182.9 cm; Wt 89.8 kg
[2021-01-04 12:26] VITALS: BP 151/84
== END 2021-01-04 13:59 | disposition home or self-care (01) ==
LOC: M ED 12:25
DX: F43.0 Acute stress reaction (principal); F31.9 Bipolar disorder, unspecified; F42.9 Obsessive-compulsive disorder, unspecified; F90.9 Attention-deficit hyperactivity disorder, unspecified type; F10.10 Alcohol abuse, uncomplicated; Z79.899 Other long term (current) drug therapy; Z88.8 Allergy status to other drugs, medicaments and biological substances

== ENCOUNTER 2021-01-21 10:24 | Emergency (ER) | payer MEDICAID ==
[2021-01-21 10:29] VITALS: BP 132/78
== END 2021-01-21 13:11 | disposition home or self-care (01) ==
LOC: M ED 10:24
DX: F43.0 Acute stress reaction (principal); F31.9 Bipolar disorder, unspecified; R56.9 Unspecified convulsions; G43.909 Migraine, unspecified, not intractable, without status migrainosus; Z79.899 Other long term (current) drug therapy; Z88.1 Allergy status to other antibiotic agents

== ENCOUNTER 2021-01-21 18:30 | Emergency (ER) | payer MEDICAID ==
[~2021-01-21] VITALS: Ht 175.3 cm; Wt 85.6 kg
[2021-01-21 18:32] VITALS: BP 135/85
== END 2021-01-21 20:47 | disposition home or self-care (01) ==
LOC: M ED 18:30
DX: F43.0 Acute stress reaction (principal); F31.9 Bipolar disorder, unspecified; G43.909 Migraine, unspecified, not intractable, without status migrainosus; R56.9 Unspecified convulsions; Z79.899 Other long term (current) drug therapy; Z88.1 Allergy status to other antibiotic agents

== ENCOUNTER 2021-01-24 17:39 | Emergency (ER) | payer MEDICAID ==
[2021-01-24 17:48] VITALS: BP 135/84
== END 2021-01-24 18:35 | disposition home or self-care (01) ==
LOC: M ED 17:39
DX: F43.0 Acute stress reaction (principal); Z79.899 Other long term (current) drug therapy; Z88.1 Allergy status to other antibiotic agents

== ENCOUNTER 2021-01-27 03:28 | Emergency (ER) | payer MEDICAID ==
[2021-01-27 04:06] LABS: HEMATOCRIT 46.2 % (42.0-52.0); HEMOGLOBIN 15.6 g/dl (13.5-17.5); MEAN CORPUSCULAR HEMOGLOBIN 30.6 pg (27.0-33.0); MEAN CORPUSCULAR HGB CONC 33.8 g/dl (32.0-36.5); MEAN CORPUSCULAR VOLUME 90.8 fl (80.0-96.0); PLATELET COUNT, AUTOMATED 292 10^3/uL (150-450); RED BLOOD COUNT 5.09 10^6/uL (4.30-6.10); WHITE BLOOD COUNT 6.7 10^3/uL (4.0-10.0)
[2021-01-27 04:54] LABS: ACETAMINOPHEN LEVEL < 2.0 UG/ML (10.0-30.0); ALBUMIN 4.3 GM/DL (3.2-5.2); ALT/SGPT 31 U/L (12-78); BILIRUBIN,DIRECT 0.2 MG/DL (0.0-0.2); BILIRUBIN,TOTAL 0.3 MG/DL (0.2-1.0); BLOOD UREA NITROGEN 7 MG/DL (7-18); CALCIUM LEVEL 8.4 MG/DL (8.5-10.1); CARBON DIOXIDE LEVEL 25 MEQ/L (21-32); CHLORIDE LEVEL 112 MEQ/L (98-107); CREATININE FOR GFR 0.68 MG/DL (0.70-1.30); ETHYL ALCOHOL (ETHANOL) 0.192 % (0.000-0.010); GLOMERULAR FILTRATION RATE > 60.0 (>60); GLUCOSE, FASTING 93 MG/DL (70-100); POTASSIUM SERUM 3.6 MEQ/L (3.5-5.1); SALICYLATE LEVEL < 1.7 MG/DL (5.0-30.0); SODIUM LEVEL 143 MEQ/L (136-145); TOTAL PROTEIN 7.1 GM/DL (6.4-8.2)
[2021-01-27 05:07] LABS: AMPHETAMINES LEVEL URINE NEGATIVE (NEGATIVE); BARBITURATES URINE NEGATIVE (NEGATIVE); BENZODIAZEPINES URINE NEGATIVE (NEGATIVE); CANNABINOIDS URINE NEGATIVE (NEGATIVE); COCAINE METABOLITE URINE NEGATIVE (NEGATIVE); METHADONE URINE NEGATIVE (NEGATIVE); OPIATES URINE NEGATIVE (NEGATIVE); PHENCYCLIDINE URINE NEGATIVE (NEGATIVE)
[2021-01-27] MEDS ORDERED: LORazepam 2 MG/ML VIAL IM ONE (05:50)
[2021-01-27] MEDS ORDERED: HALOPERIDOL 5MG/ML VIAL (J1630 PER 1) IM ONE (05:50)
[2021-01-27] MEDS ORDERED: diphenhydrAMINE 50MG/ML VIAL (J1200) IM ONE (05:50)
[2021-01-27 19:10] VITALS: BP 138/74
== END 2021-01-27 19:14 | disposition home or self-care (01) ==
LOC: M ED 03:28
DX: F10.129 Alcohol abuse with intoxication, unspecified (principal); F10.10 Alcohol abuse, uncomplicated; F20.9 Schizophrenia, unspecified; Z87.820 Personal history of traumatic brain injury; Z79.899 Other long term (current) drug therapy; Z88.1 Allergy status to other antibiotic agents
CPT/HCPCS: 80048; 80076; 80143; 80307; 82077; 84443; 85027; 96372; 99285; J1200; J1630; J2060

== ENCOUNTER 2021-02-02 16:06 | Emergency (ER) | payer MEDICAID ==
[~2021-02-02] VITALS: Ht 180.3 cm; Wt 86.4 kg
[2021-02-02 16:34] VITALS: BP 124/77
--- NOTE | 2021-02-03 08:00 | ECGEPIP ---
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
== END 2021-02-02 18:08 | disposition home or self-care (01) ==
LOC: EDBD 16:06 → M ED 16:06
DX: F41.9 Anxiety disorder, unspecified (principal); F31.9 Bipolar disorder, unspecified; R56.9 Unspecified convulsions; Z86.59 Personal history of other mental and behavioral disorders; Z79.899 Other long term (current) drug therapy; Z88.1 Allergy status to other antibiotic agents

== ENCOUNTER 2021-02-08 04:49 | Emergency (ER) | payer MEDICAID ==
[~2021-02-08] VITALS: Ht 177.8 cm; Wt 86.4 kg
[2021-02-08 05:01] VITALS: BP 135/88
== END 2021-02-08 06:07 | disposition home or self-care (01) ==
LOC: M ED 04:49
DX: F43.0 Acute stress reaction (principal); F25.9 Schizoaffective disorder, unspecified; Z87.820 Personal history of traumatic brain injury; Z79.899 Other long term (current) drug therapy; Z88.8 Allergy status to other drugs, medicaments and biological substances

== ENCOUNTER 2021-03-04 21:13 | Emergency (ER) | payer MEDICAID ==
[~2021-03-04] VITALS: Ht 177.8 cm; Wt 83.5 kg
[2021-03-04 21:14] VITALS: BP 108/69
== END 2021-03-04 22:14 | disposition home or self-care (01) ==
LOC: M ED 21:13
DX: F10.10 Alcohol abuse, uncomplicated (principal); Z76.5 Malingerer [conscious simulation]; Z87.820 Personal history of traumatic brain injury; R56.9 Unspecified convulsions; Z79.899 Other long term (current) drug therapy; Z88.1 Allergy status to other antibiotic agents

== ENCOUNTER 2021-03-05 16:38 | Emergency (ER) | payer MEDICAID ==
[~2021-03-05] VITALS: Ht 180.3 cm; Wt 79.9 kg
[2021-03-05 17:01] VITALS: BP 138/91
[2021-03-05 17:36] LABS: HEMATOCRIT 47.6 % (42.0-52.0); HEMOGLOBIN 15.8 g/dl (13.5-17.5); MEAN CORPUSCULAR HEMOGLOBIN 31.1 pg (27.0-33.0); MEAN CORPUSCULAR HGB CONC 33.2 g/dl (32.0-36.5); MEAN CORPUSCULAR VOLUME 93.7 fl (80.0-96.0); PLATELET COUNT, AUTOMATED 254 10^3/uL (150-450); RED BLOOD COUNT 5.08 10^6/uL (4.30-6.10); WHITE BLOOD COUNT 7.9 10^3/uL (4.0-10.0)
[2021-03-05 17:56] LABS: AMPHETAMINES LEVEL URINE NEGATIVE (NEGATIVE); BARBITURATES URINE NEGATIVE (NEGATIVE); BENZODIAZEPINES URINE NEGATIVE (NEGATIVE); CANNABINOIDS URINE NEGATIVE (NEGATIVE); COCAINE METABOLITE URINE NEGATIVE (NEGATIVE); METHADONE URINE NEGATIVE (NEGATIVE); OPIATES URINE NEGATIVE (NEGATIVE); PHENCYCLIDINE URINE NEGATIVE (NEGATIVE)
[2021-03-05 18:05] LABS: ACETAMINOPHEN LEVEL < 2.0 UG/ML (10.0-30.0); ALBUMIN 4.1 GM/DL (3.2-5.2); ALT/SGPT 32 U/L (12-78); BILIRUBIN,DIRECT 0.3 MG/DL (0.0-0.2); BILIRUBIN,TOTAL 0.8 MG/DL (0.2-1.0); BLOOD UREA NITROGEN 16 MG/DL (7-18); CALCIUM LEVEL 9.4 MG/DL (8.5-10.1); CARBON DIOXIDE LEVEL 28 MEQ/L (21-32); CHLORIDE LEVEL 106 MEQ/L (98-107); CREATININE FOR GFR 0.79 MG/DL (0.70-1.30); ETHYL ALCOHOL (ETHANOL) < 0.003 % (0.000-0.010); GLOMERULAR FILTRATION RATE > 60.0 (>60); GLUCOSE, FASTING 82 MG/DL (70-100); POTASSIUM SERUM 3.9 MEQ/L (3.5-5.1); SALICYLATE LEVEL < 1.7 MG/DL (5.0-30.0); SODIUM LEVEL 139 MEQ/L (136-145); THYROID STIMULATING HORMONE 0.695 uIU/ML (0.358-3.740); TOTAL PROTEIN 7.1 GM/DL (6.4-8.2)
== END 2021-03-05 21:42 | disposition home or self-care (01) ==
LOC: M ED 16:38
DX: F41.9 Anxiety disorder, unspecified (principal); F43.0 Acute stress reaction; F20.9 Schizophrenia, unspecified; Z87.820 Personal history of traumatic brain injury; R56.9 Unspecified convulsions; F12.10 Cannabis abuse, uncomplicated; Z79.899 Other long term (current) drug therapy; Z88.1 Allergy status to other antibiotic agents

== ENCOUNTER 2021-03-13 17:57 | Emergency (ER) | payer MEDICAID ==
[2021-03-13 19:48] LABS: AMPHETAMINES LEVEL URINE NEGATIVE (NEGATIVE); BARBITURATES URINE NEGATIVE (NEGATIVE); BENZODIAZEPINES URINE NEGATIVE (NEGATIVE); CANNABINOIDS URINE NEGATIVE (NEGATIVE); COCAINE METABOLITE URINE NEGATIVE (NEGATIVE); METHADONE URINE NEGATIVE (NEGATIVE); OPIATES URINE NEGATIVE (NEGATIVE); PHENCYCLIDINE URINE NEGATIVE (NEGATIVE)
[2021-03-13 20:11] LABS: HEMATOCRIT 43.1 % (42.0-52.0); HEMOGLOBIN 14.6 g/dl (13.5-17.5); MEAN CORPUSCULAR HEMOGLOBIN 31.4 pg (27.0-33.0); MEAN CORPUSCULAR HGB CONC 33.9 g/dl (32.0-36.5); MEAN CORPUSCULAR VOLUME 92.7 fl (80.0-96.0); PLATELET COUNT, AUTOMATED 293 10^3/uL (150-450); RED BLOOD COUNT 4.65 10^6/uL (4.30-6.10); WHITE BLOOD COUNT 11.4 10^3/uL (4.0-10.0)
[2021-03-13 20:45] LABS: ACETAMINOPHEN LEVEL < 2.0 UG/ML (10.0-30.0); ALBUMIN 3.8 GM/DL (3.2-5.2); ALT/SGPT 36 U/L (12-78); BILIRUBIN,DIRECT 0.1 MG/DL (0.0-0.2); BILIRUBIN,TOTAL 0.5 MG/DL (0.2-1.0); BLOOD UREA NITROGEN 12 MG/DL (7-18); CALCIUM LEVEL 8.7 MG/DL (8.5-10.1); CARBON DIOXIDE LEVEL 27 MEQ/L (21-32); CHLORIDE LEVEL 108 MEQ/L (98-107); CREATININE FOR GFR 0.85 MG/DL (0.70-1.30); ETHYL ALCOHOL (ETHANOL) < 0.003 % (0.000-0.010); GLOMERULAR FILTRATION RATE > 60.0 (>60); GLUCOSE, FASTING 91 MG/DL (70-100); POTASSIUM SERUM 3.3 MEQ/L (3.5-5.1); SALICYLATE LEVEL < 1.7 MG/DL (5.0-30.0); SODIUM LEVEL 142 MEQ/L (136-145); THYROID STIMULATING HORMONE 0.398 uIU/ML (0.358-3.740); TOTAL PROTEIN 6.6 GM/DL (6.4-8.2)
[2021-03-13] MEDS ORDERED: POTASSIUM CHLORIDE 10 MEQ SR TABLET PO ONE (21:00)
[2021-03-13 21:15] VITALS: BP 134/85
== END 2021-03-13 21:21 | disposition home or self-care (01) ==
LOC: M ED 17:57
DX: F41.9 Anxiety disorder, unspecified (principal); F31.9 Bipolar disorder, unspecified; F20.9 Schizophrenia, unspecified; F60.3 Borderline personality disorder; Z87.820 Personal history of traumatic brain injury; R56.9 Unspecified convulsions; F17.200 Nicotine dependence, unspecified, uncomplicated; Z79.899 Other long term (current) drug therapy; Z88.1 Allergy status to other antibiotic agents

== ENCOUNTER 2021-03-29 17:46 | Emergency (ER) | payer MEDICAID ==
[~2021-03-29] VITALS: Ht 182.9 cm; Wt 82.6 kg
[2021-03-29 22:20] LABS: BASO # 0.1 10^3/uL (0.0-0.2); BASO % 0.8 % (0.0-1.0); EOS # 0.2 10^3/uL (0.0-0.5); EOS % 2.9 % (0.0-3.0); HEMATOCRIT 48.3 % (42.0-52.0); HEMOGLOBIN 15.7 g/dl (13.5-17.5); LYMPH # 1.9 10^3/uL (1.5-5.0); LYMPH % 25.5 % (24.0-44.0); MEAN CORPUSCULAR HEMOGLOBIN 30.5 pg (27.0-33.0); MEAN CORPUSCULAR HGB CONC 32.5 g/dl (32.0-36.5); MONO # 0.7 10^3/uL (0.0-0.8); MONO % 8.9 % (2.0-8.0); NEUTROPHILS # 4.7 10^3/uL (1.5-8.5); NEUTROPHILS % 61.4 % (36.0-66.0); PLATELET COUNT, AUTOMATED 284 10^3/uL (150-450); RED BLOOD COUNT 5.14 10^6/uL (4.30-6.10); WHITE BLOOD COUNT 7.6 10^3/uL (4.0-10.0)
[2021-03-29 23:01] LABS: FREE THYROXINE INDEX 2.5 % (1.4-3.8); THYROID STIMULATING HORMONE 0.624 uIU/ML (0.358-3.740); THYROXINE (T4) 8.6 UG/DL (4.5-12.0)
[2021-03-29 23:12] VITALS: BP 150/90
--- NOTE | 2021-03-30 05:38 | ECGEPIP ---
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
== END 2021-03-29 23:14 | disposition home or self-care (01) ==
LOC: M ED 17:46
DX: Z03.89 Encounter for observation for other suspected diseases and conditions ruled out (principal); F31.9 Bipolar disorder, unspecified; F42.9 Obsessive-compulsive disorder, unspecified; F90.9 Attention-deficit hyperactivity disorder, unspecified type; G40.909 Epilepsy, unspecified, not intractable, without status epilepticus; Z79.899 Other long term (current) drug therapy

== ENCOUNTER 2021-04-10 20:00 | Emergency (ER) | payer MEDICAID ==
[2021-04-10 20:02] VITALS: BP 154/91
== END 2021-04-10 21:37 | disposition home or self-care (01) ==
LOC: M ED 20:00
DX: F43.0 Acute stress reaction (principal); F31.9 Bipolar disorder, unspecified

== ENCOUNTER 2021-04-20 19:34 | Emergency (ER) | payer MEDICAID ==
[~2021-04-20] VITALS: Ht 177.8 cm; Wt 83.5 kg
[2021-04-20 23:06] VITALS: BP 157/85
== END 2021-04-20 23:08 | disposition home or self-care (01) ==
LOC: M ED 19:34
DX: F43.0 Acute stress reaction (principal); F17.200 Nicotine dependence, unspecified, uncomplicated; F12.10 Cannabis abuse, uncomplicated; Z79.899 Other long term (current) drug therapy

== ENCOUNTER 2021-05-12 17:50 | Emergency (ER) | payer MEDICAID ==
[~2021-05-12] VITALS: Ht 175.3 cm; Wt 90.9 kg
[2021-05-12 18:13] VITALS: BP 148/81
== END 2021-05-12 18:14 | disposition left against medical advice (07) ==
LOC: M ED 17:50
DX: Z53.21 Procedure and treatment not carried out due to patient leaving prior to being seen by health care provider (principal)

== ENCOUNTER 2021-05-27 21:46 | Emergency (ER) | payer MEDICAID ==
[~2021-05-27 21:46] MED LIST changes: -HALO1TA PO; +HALO1TAB PO; -QUET50TA3 PO; +QUET50TA4 PO
[2021-05-27] MEDS ORDERED: NS 1,000 ML IV ONE (21:55)
[2021-05-27 22:25] LABS: VENOUS BASE EXCESS -1.6 (-2.0-2.0); VENOUS HCO3 24.2 MEQ/L (23.0-27.0); VENOUS O2 SATURATION 93.4 % (60.0-80.0); VENOUS PARTIAL PRESSURE CO2 44.8 mmHg (38.0-50.0); VENOUS PARTIAL PRESSURE O2 69.5 mmHg (30.0-50.0); VENOUS PH 7.351 UNITS (7.330-7.430); VENOUS TOTAL CO2 25.6 MEQ/L (24.0-28.0)
[2021-05-27 22:29] LABS: BASO # 0.1 10^3/uL (0.0-0.2); BASO % 0.7 % (0.0-1.0); EOS # 0.1 10^3/uL (0.0-0.5); EOS % 1.4 % (0.0-3.0); HEMATOCRIT 46.9 % (42.0-52.0); HEMOGLOBIN 16.1 g/dl (13.5-17.5); LYMPH # 2.4 10^3/uL (1.5-5.0); LYMPH % 31.8 % (24.0-44.0); MEAN CORPUSCULAR HEMOGLOBIN 31.5 pg (27.0-33.0); MEAN CORPUSCULAR HGB CONC 34.3 g/dl (32.0-36.5); MEAN CORPUSCULAR VOLUME 91.8 fl (80.0-96.0); MONO # 0.5 10^3/uL (0.0-0.8); MONO % 6.8 % (2.0-8.0); NEUTROPHILS # 4.5 10^3/uL (1.5-8.5); NEUTROPHILS % 58.9 % (36.0-66.0); PLATELET COUNT, AUTOMATED 277 10^3/uL (150-450); RED BLOOD COUNT 5.11 10^6/uL (4.30-6.10); WHITE BLOOD COUNT 7.7 10^3/uL (4.0-10.0)
[2021-05-27 22:51] LABS: AMPHETAMINES LEVEL URINE NEGATIVE (NEGATIVE); BARBITURATES URINE NEGATIVE (NEGATIVE); BENZODIAZEPINES URINE NEGATIVE (NEGATIVE); CANNABINOIDS URINE NEGATIVE (NEGATIVE); COCAINE METABOLITE URINE NEGATIVE (NEGATIVE); METHADONE URINE NEGATIVE (NEGATIVE); OPIATES URINE NEGATIVE (NEGATIVE); PHENCYCLIDINE URINE NEGATIVE (NEGATIVE)
[2021-05-27 22:53] LABS: OSMOLALITY SERUM 363 MOSM/KG (275-295)
[2021-05-27 23:00] LABS: ACETAMINOPHEN LEVEL < 2.0 UG/ML (10.0-30.0); ALBUMIN 4.3 GM/DL (3.2-5.2); ALT/SGPT 31 U/L (12-78); BILIRUBIN,DIRECT 0.2 MG/DL (0.0-0.2); BILIRUBIN,TOTAL 0.5 MG/DL (0.2-1.0); BLOOD UREA NITROGEN 6 MG/DL (7-18); CALCIUM LEVEL 8.2 MG/DL (8.5-10.1); CARBON DIOXIDE LEVEL 27 MEQ/L (21-32); CHLORIDE LEVEL 112 MEQ/L (98-107); CPK CREATINE PHOSPHOKINASE 160 U/L (39-308); CREATININE FOR GFR 0.71 MG/DL (0.70-1.30); ETHYL ALCOHOL (ETHANOL) 0.297 % (0.000-0.010); GLOMERULAR FILTRATION RATE > 60.0 (>60); GLUCOSE, FASTING 93 MG/DL (70-100); POTASSIUM SERUM 3.4 MEQ/L (3.5-5.1); SALICYLATE LEVEL < 1.7 MG/DL (5.0-30.0); SODIUM LEVEL 145 MEQ/L (136-145); TOTAL PROTEIN 7.1 GM/DL (6.4-8.2)
[2021-05-28 05:55] VITALS: BP 109/59
== END 2021-05-28 08:23 | disposition home or self-care (01) ==
LOC: M ED 21:46
DX: F10.129 Alcohol abuse with intoxication, unspecified (principal); Z87.820 Personal history of traumatic brain injury; F41.9 Anxiety disorder, unspecified; F17.200 Nicotine dependence, unspecified, uncomplicated; Z79.899 Other long term (current) drug therapy

== ENCOUNTER 2021-06-02 16:39 | Emergency (ER) | payer MEDICAID ==
[~2021-06-02] VITALS: Ht 172.7 cm; Wt 81.6 kg
[~2021-06-02 16:39] MED LIST changes: +HALO1TA PO; -HALO1TAB PO
[2021-06-02 18:30] VITALS: BP 133/76
== END 2021-06-02 18:31 | disposition home or self-care (01) ==
LOC: M ED 16:39
DX: F41.9 Anxiety disorder, unspecified (principal); Z87.820 Personal history of traumatic brain injury; Z79.899 Other long term (current) drug therapy

== ENCOUNTER 2021-06-09 21:12 | Emergency (ER) | payer MEDICAID ==
[~2021-06-09] VITALS: Ht 177.8 cm; Wt 58.6 kg
[2021-06-09 21:25] VITALS: BP 138/91
[2021-06-09] MEDS ORDERED: QUET300T53 PO (22:47)
[2021-06-09] MEDS ORDERED: HOME MED LIST COMPLETE! XX SCH (22:50)
== END 2021-06-10 02:20 | disposition home or self-care (01) ==
LOC: M ED 21:12
DX: F43.0 Acute stress reaction (principal); F20.9 Schizophrenia, unspecified; Z87.820 Personal history of traumatic brain injury; F12.10 Cannabis abuse, uncomplicated

== ENCOUNTER 2021-06-15 00:32 | Emergency (ER) | payer MEDICAID ==
[~2021-06-15] VITALS: Ht 167.6 cm; Wt 79.5 kg
[2021-06-15 02:40] LABS: HEMATOCRIT 44.6 % (42.0-52.0); HEMOGLOBIN 15.2 g/dl (13.5-17.5); MEAN CORPUSCULAR HEMOGLOBIN 31.3 pg (27.0-33.0); MEAN CORPUSCULAR HGB CONC 34.1 g/dl (32.0-36.5); MEAN CORPUSCULAR VOLUME 91.8 fl (80.0-96.0); PLATELET COUNT, AUTOMATED 250 10^3/uL (150-450); RED BLOOD COUNT 4.86 10^6/uL (4.30-6.10); WHITE BLOOD COUNT 7.4 10^3/uL (4.0-10.0)
[2021-06-15 03:27] LABS: ACETAMINOPHEN LEVEL < 2.0 UG/ML (10.0-30.0); ALBUMIN 3.7 GM/DL (3.2-5.2); ALT/SGPT 26 U/L (12-78); BILIRUBIN,DIRECT 0.1 MG/DL (0.0-0.2); BILIRUBIN,TOTAL 0.5 MG/DL (0.2-1.0); BLOOD UREA NITROGEN 7 MG/DL (7-18); CALCIUM LEVEL 8.7 MG/DL (8.5-10.1); CARBON DIOXIDE LEVEL 27 MEQ/L (21-32); CHLORIDE LEVEL 111 MEQ/L (98-107); CREATININE FOR GFR 0.67 MG/DL (0.70-1.30); ETHYL ALCOHOL (ETHANOL) 0.032 % (0.000-0.010); GLOMERULAR FILTRATION RATE > 60.0 (>60); GLUCOSE, FASTING 91 MG/DL (70-100); POTASSIUM SERUM 4.2 MEQ/L (3.5-5.1); SALICYLATE LEVEL < 1.7 MG/DL (5.0-30.0); SODIUM LEVEL 143 MEQ/L (136-145); TOTAL PROTEIN 6.6 GM/DL (6.4-8.2)
[2021-06-15 05:43] VITALS: BP 132/58
== END 2021-06-15 05:40 | disposition home or self-care (01) ==
LOC: M ED 00:32
DX: F43.0 Acute stress reaction (principal); F31.9 Bipolar disorder, unspecified; F17.200 Nicotine dependence, unspecified, uncomplicated; Z79.899 Other long term (current) drug therapy

== ENCOUNTER 2021-07-05 18:41 | Emergency (ER) | payer MEDICAID ==
[~2021-07-05] VITALS: Ht 172.7 cm; Wt 80.1 kg
[2021-07-05 18:42] VITALS: BP 122/81
== END 2021-07-05 20:49 | disposition home or self-care (01) ==
LOC: M ED 18:41
DX: F43.0 Acute stress reaction (principal); F31.9 Bipolar disorder, unspecified; F17.200 Nicotine dependence, unspecified, uncomplicated

== ENCOUNTER 2021-07-23 22:09 | Emergency (ER) | payer MEDICAID ==
[~2021-07-23] VITALS: Ht 177.8 cm; Wt 83.8 kg
[2021-07-24 03:12] VITALS: BP 129/70
== END 2021-07-24 03:17 | disposition home or self-care (01) ==
LOC: M ED 22:09
DX: F43.0 Acute stress reaction (principal); G43.909 Migraine, unspecified, not intractable, without status migrainosus; F12.10 Cannabis abuse, uncomplicated

== ENCOUNTER 2021-07-26 01:28 | Emergency (ER) | payer MEDICAID ==
[2021-07-26 06:39] VITALS: BP 125/82
== END 2021-07-26 06:40 | disposition home or self-care (01) ==
LOC: M ED 01:28
DX: F43.0 Acute stress reaction (principal); F31.9 Bipolar disorder, unspecified; F17.200 Nicotine dependence, unspecified, uncomplicated; Z79.899 Other long term (current) drug therapy

== ENCOUNTER 2021-07-27 21:02 | Emergency (ER) | payer MEDICAID ==
[~2021-07-27] VITALS: Ht 182.9 cm; Wt 83.3 kg
[2021-07-27 21:03] VITALS: BP 134/96
== END 2021-07-27 23:59 | disposition left against medical advice (07) ==
LOC: M ED 21:02
DX: Z53.21 Procedure and treatment not carried out due to patient leaving prior to being seen by health care provider (principal)

== ENCOUNTER 2021-07-31 16:19 | Emergency (ER) | payer MEDICAID ==
[~2021-07-31] VITALS: Ht 167.6 cm; Wt 70.0 kg
--- NOTE | 2021-07-31 17:16 | REP ---
INDICATION: syncope v seizure COMPARISON: 08/20/2019 TECHNIQUE: Portable AP view of the chest FINDINGS: The mediastinum and cardiac silhouette are stable and within normal limits for portable technique. The lung fry are clear without acute consolidation, effusion, or pneumothorax. Skeletal structures are intact. IMPRESSION: No acute cardiopulmonary process appreciated. <Electronically signed by Ja Murphy > 07/31/21 [id number]
[2021-07-31 18:58] LABS: BASO % 0.5 % (0.0-1.0); EOS # 0.1 10^3/uL (0.0-0.5); EOS % 1.7 % (0.0-3.0); HEMATOCRIT 44.9 % (42.0-52.0); HEMOGLOBIN 15.1 g/dl (13.5-17.5); LYMPH % 11.8 % (24.0-44.0); MEAN CORPUSCULAR HGB CONC 33.6 g/dl (32.0-36.5); MEAN CORPUSCULAR VOLUME 92.2 fl (80.0-96.0); MONO # 0.6 10^3/uL (0.0-0.8); MONO % 7.3 % (2.0-8.0); NEUTROPHILS # 6.5 10^3/uL (1.5-8.5); NEUTROPHILS % 78.1 % (36.0-66.0); PLATELET COUNT, AUTOMATED 246 10^3/uL (150-450); RED BLOOD COUNT 4.87 10^6/uL (4.30-6.10); WHITE BLOOD COUNT 8.3 10^3/uL (4.0-10.0)
--- NOTE | 2021-07-31 19:19 | REPVR ---
PROCEDURE INFORMATION: Exam: CT Head Without Contrast Exam date and time: 07/31/2021 6:22 PM Age: 30 years old Clinical indication: Other: Seizure; Additional info: Seizures TECHNIQUE: Imaging protocol: Computed tomography of the head without contrast. Axial and coronal reformatted images were created and reviewed. Radiation optimization: All CT scans at this facility use at least one of these dose optimization techniques: automated exposure control; mA and/or kV adjustment per patient size (includes targeted exams where dose is matched to clinical indication); or iterative reconstruction. COMPARISON: CT Head without contrast 12/29/2015 1:10 PM FINDINGS: Brain: Unchanged left temporal encephalomalacia. No CT evidence of acute intracranial hemorrhage or acute territorial infarction. No significant mass effect or midline shift. Basal cisterns patent. Cerebral ventricles: Normal in size and configuration. Paranasal sinuses: Minimal ethmoid and sphenoid sinus mucosal thickening. No fluid levels. Mastoid air cells: Grossly unremarkable. Bones/joints: No acute osseous abnormality. Evidence of prior left temporal craniotomy. Soft tissues: Grossly unremarkable. IMPRESSION: 1. No CT evidence of acute intracranial pathology. 2. Additional findings, as above. Electronically signed by: Valentin Amaya On 07/31/2021 19:19:15 PM
[2021-07-31 19:24] LABS: ALBUMIN 3.7 GM/DL (3.2-5.2); ALT/SGPT 25 U/L (12-78); BILIRUBIN,DIRECT 0.2 MG/DL (0.0-0.2); BILIRUBIN,TOTAL 0.5 MG/DL (0.2-1.0); BLOOD UREA NITROGEN 10 MG/DL (7-18); CALCIUM LEVEL 8.9 MG/DL (8.5-10.1); CARBON DIOXIDE LEVEL 26 MEQ/L (21-32); CHLORIDE LEVEL 110 MEQ/L (98-107); CREATININE FOR GFR 0.68 MG/DL (0.70-1.30); GLOMERULAR FILTRATION RATE > 60.0 (>60); GLUCOSE, FASTING 103 MG/DL (70-100); MAGNESIUM LEVEL 2.1 MG/DL (1.8-2.4); PHOSPHORUS LEVEL 2.3 MG/DL (2.5-4.9); POTASSIUM SERUM 4.3 MEQ/L (3.5-5.1); SODIUM LEVEL 141 MEQ/L (136-145); TOTAL PROTEIN 6.8 GM/DL (6.4-8.2)
[2021-07-31 20:00] VITALS: BP 128/70
[2021-08-01] MEDS ORDERED: KEPP1TAB PO (08:32)
== END 2021-07-31 20:58 | disposition home or self-care (01) ==
LOC: M ED 16:19
DX: G40.909 Epilepsy, unspecified, not intractable, without status epilepticus (principal); G93.89 Other specified disorders of brain; G47.00 Insomnia, unspecified; Z91.19 Patient's noncompliance with other medical treatment and regimen; Z87.820 Personal history of traumatic brain injury; Z79.899 Other long term (current) drug therapy

== ENCOUNTER 2021-08-01 05:20 | Emergency (ER) | payer MEDICAID ==
[2021-08-01] MEDS ORDERED: KEPP1TAB PO (08:32)
== END 2021-08-01 05:30 | disposition left against medical advice (07) ==
LOC: M ED 05:20
DX: Z53.21 Procedure and treatment not carried out due to patient leaving prior to being seen by health care provider (principal)

== ENCOUNTER 2021-08-01 08:00 | Emergency (ER) | payer MEDICAID ==
[2021-08-01] MEDS ORDERED: levETIRAcetam 250MG TABLET (KEPPRA) PO ONE (08:25)
[2021-08-01] MEDS ORDERED: KEPP1TAB PO (08:32)
[2021-08-01 08:58] VITALS: BP 130/90
== END 2021-08-01 09:08 | disposition home or self-care (01) ==
LOC: M ED 08:00
DX: G40.909 Epilepsy, unspecified, not intractable, without status epilepticus (principal); F60.89 Other specific personality disorders; F17.200 Nicotine dependence, unspecified, uncomplicated; F10.10 Alcohol abuse, uncomplicated; Z79.899 Other long term (current) drug therapy

== ENCOUNTER 2021-08-09 15:06 | Emergency (ER) | payer MEDICAID ==
[~2021-08-09] VITALS: Ht 175.3 cm; Wt 82.6 kg
[~2021-08-09 15:06] MED LIST changes: +KEPP1TAB PO
[2021-08-09 15:07] VITALS: BP 145/82
--- OUTSIDE RECORDS SUMMARY | 2021-08-09 15:13 | CCD ---
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, With delusions Active 07/06/2021 Medications Rx Norm Medication Route Route Concept Start Date Stop Date Dosage Diego quency Duration Formula Strength Dosage Form Dosage Form Code Dosage Description Medication Id Account Npid Author First Name Author Last Name Taxonomy Code Taxonomy Desc Phone Number [phone] Socorrolifmary Chery 01/04/2018 every four weeks 300 mg suspension,extended rel recon [id number] Laurie Mckeon [id number] Nurse Practitioner [phone] [id number] Seroquel 07/25/2019 30 300 mg tablet [id number] [phone] Irlanda Mckeon [id number] Nurse Practitioner [phone] Social History Social History Element Description Concept Effective Date Smoking Status Smoker, current status unknown [id number] Immunizations No Data in Section Vital Signs No Data in Section Procedures Date Concept Id Description Targeted Site Concept Targeted Site Concept Type 07/05/2021 25786 Brief Individual Psychotherapy - 30 min CPT Patient has no history of implantable de vices Encounters Encounter Start Date End Date Encounter Type Description Diagnosis Di agnosis Desc Location Author First Name Author Last Name Npid Taxonomy Cod e Taxonomy Desc Phone Number Location Addr1 Location Addr2 Location City Location [place] Location Zip [id number] 07/05/2021 07/05/2021 78196 Brief Individual Psychoth erapy - 30 min 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
--- OUTSIDE RECORDS SUMMARY | 2021-08-09 15:13 | CCD ---
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, With delusions Active 07/23/2021 Medications Rx Norm Medication Route Route Concept Start Date Stop Date Dosage Diego quency Duration Formula Strength Dosage Form Dosage Form Code Dosage Description Medication Id Account Npid Author First Name Author Last Name Taxonomy Code Taxonomy Desc Phone Number [phone] Sanchez Chery 01/04/2018 every four weeks 300 mg suspension,extended rel recon [phone] Laurie Mckeon [id number] Nurse Practitioner [phone] Seroquel 07/25/2019 30 300 mg tablet 11169 1 [phone] [phone] Irlanda Mckeon [id number] Nurse Practitioner [phone] Social History Social History Element Description Concept Effective Date Smoking Status Smoker, current status unknown [id number] Immunizations No Data in Section Vital Signs No Data in Section Procedures Date Concept Id Description Targeted Site Concept Targeted Site Concept Type 07/20/2021 12337 Extended Individual Psychotherapy - 45 min CPT Patient has no history of implantable de vices Encounters Encounter Start Date End Date Encounter Type Description Diagnosis Di agnosis Desc Location Author First Name Author Last Name Npid Taxonomy Cod e Taxonomy Desc Phone Number Location Addr1 Location Addr2 Location City Location Sta Location Zip [id number] 07/20/2021 07/20/2021 51153 Extended Individual Psych otherapy - 45 min 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
--- OUTSIDE RECORDS SUMMARY | 2021-08-09 15:14 | CCD ---
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 on cell phone talking to law enforcement 5 minutes later [facility] and [place] [employer] in ED arrived and talking with [...] encouraged to try to rest.). --20:23 12/17/20 Godwin, Karrie Clinical Report - Nurses [facility] Emergency Department [address] [place] [address] Phone #: ext- [phone] 12/17/2020 17:48 [id number] Sex[facility] : 1990 Age: 30yKatelynReassurance given.Rounding: Pain: denies pain. Position: states comfortable. Personal care / toileting: denies toileting needs.Proximity of possessions / care items: call light within easy reach. Plug ins: assured IV pump plugged in;checked status of equipment in use; located all cords, tubes, and lines to prevent fall hazard. --20:5612/17/20 Kristin Connelly0:58 12/17/20. BP: 129/85. MAP: 99. HR: 77. [...] precautions and sedativewarning. Verbalizes understanding. --21:15 12/17/20 Kristin Connelly2:12/17/20. The patient is sleeping.RESPIRATORY: No respiratory distress.SKIN: Skin is warm and dry. --04:02 12/18/20 Peggy Chapin R.N.00:02 12/18/20. The patient is resting quietly. Overall patient status is improved. ( Per Provider, let ptsleep. Plan is to re-draw ETOH at 4am to proceed with sending pt to [facility] (which is where pt wants to go)for [...] 12/18/20 Peggy Chapin R.N.( chart faxed to [facility]). --04:40 12/18/20 Peggy Chapin R.N.The patient is sleeping. --04:40 12/18/20 Peggy Chapin R.N. 5 Clinical Report - Nurses [facility] Emergency Department [address] [place] [address] Phone #: ext- [phone] 12/17/2020 17:48 Patient: TEDDY LAWSON Sex: M : 1990 Age: 30y ( Call placed to Stefania at [facility] to confirm receipt of faxed chart. Chart faxed again to [phone] per request.). --04:59 12/18/20 Peggy Chapin R.N. The patient is sleeping. Overall patient status is improved. RESPIRATORY: No respiratory distress. SKIN: Skin is warm and dry. --04:59 12/18/20 Peggy Chapin R.N. ( Call placed to [facility], who verified that they did receive the fax, this time. Awaiting call back.). --05:21 12/18/20 Peggy Chapin R.N. The patient is sleeping. ( Call placed to [facility] Out Of Town Collection Clerk at [phone]. Stefania states that Dr Sandra has not had a chance to look at the paperwork yet.). --05:55 12/18/20 Peggy Chapin R.N. ( 0615 no changes. Pt sleeping at long periods.). --06:48 12/18/20 Peggy Chapin R.N. ( 0715 pt resting on right side awaiting transfer t [facility], pt stating feeling antsy but feeling a lot better than last night). --07:19 12/18/20 Freddy Blanchard RN.DISPOSITION / DISCHARGE Report was given to a nurse via a phone call. Report was acknowledged. (Phuong Doe RN). --06:29 12/18/20 Peggy Chapin R.N. 06:29 12/18/2020 Site #1 removed upon transfer. --06:29 12/18/20 Peggy Chapin R.N. Condition at departure: stable. Transferred to [facility]. Visit overview, summary of care (CCDA), Emtala forms and Face Sheet provided to EMS and transfer facility via paper and digital media (ED For Psych Eval). --06:30 12/18/20 Peggy Chapin R.N. ( 0640 [facility]ARS phoned regarding transport. They state that they will send a BLS crew when the day shift gets in (at 7am) Transfer forms underway. 9.[address] Rizo. Call placed to Cee Lawson, pt's family contact.). --06:48 12/18/20 Peggy Chapin R.N. 06:48 12/18/20. BP: 118/80. MAP: 92. HR: 96. RR: 16. O2 saturation: 96%. Temp: 97.1 F. Pain level now: 010. --06:49 12/18/20 Peggy Chapin R.N. Departure time: 07:25 12/18/2020. --07:25 12/18/20 Freddy Blanchard RN 07:20 12/18/20. BP: 116/80. MAP: 92. HR: 98. RR: 18. O2 saturation: 98% on room air. Temp: 97.2 F (oral). Pain level now: 0/10. --07:25 12/18/20 Freddy Blanchard RN. 6 Clinical Report - Nurses [facility] Emergency Department [address] [place] [address] Phone #: ext- [phone] 12/17/2020 17:48 Patient: TEDDY LAWSON Sex: M : 1990 Age: 30yLocked/Released at 12/18/2020 08:38 by Freddy Blanchard RN Name Value Range Interpretation Code Description Data Cecy rce(s) Supporting Document(s) ID Date Data Source [id number] 12/17/2020 05:55:00 PM EST [facility] 1 Clinical Report - Physicians/Mid Levels [facility] Emergency Department [address] [place] [address] Phone #: ext- [phone] 12/17/2020 17:48 Patient: TEDDY LAWSON Sex: M : 1990 Age: 30y [...] daily. 2 Clinical Report - Physicians/Mid Levels [facility] Emergency Department [address] [place] [address] Phone #: ext- [phone] 12/17/2020 17:48 Patient: TEDDY LAWSON Sex: M : 1990 Age: 30y [...] :.Laboratory Tests: ETOH: ([facility]: 12/18/2020 03:50) ( [facility] 12/18/[place] 04:32) Final results Test Result Flag Units (Reference) ALCOHOL 100.0 MG/DL ALCOHOL % 0.10 H % (0.00 - 0.01) *FOR MEDICAL PURPOSES ONLY* Chest Portable 1 View: (LULU: 12/17/2020 20:14) ( [facility] 12/17/2020 23:41) In Progress Exam CHEST PORTABLE [facility] 3 Clinical Report - Physicians/Mid Levels [facility] Emergency Department [address] [place] [address] Phone #: ext- [phone] 12/17/2020 17:48 Patient: TEDDY LAWSON Sex: M : 1990 Age: 30y [address] [place] [address] PHONE: [phone] FAX: [phone] Name .................. : LULU Navarro Acct Number.................. : [id number] ROOM. ................. : [facility] MR Number ................... : [id number] Stay type ............. : E/R Discharge Date......... ... : Admit Date ......... : 12/17/20 Admit Phys .................... : JUDY Cr Date of ....... : 1990 Family Phys ................... : NON STAFF Phone .................. : [phone] Age ................................ : 30 Film# .................. .:[id number] Sex ................................. : M Unsigned transcriptions are preliminary reports and do not represent a medical or legal document CHEST PORTABLE [id number] COMPLETE:12/17/20 20:14 5122 Reason(s): AMS PORTABLE CHEST X-RAY: INDICATION: Altered mental status. FINDINGS: The cardiac and mediastinal silhouettes appear normal and the lungs are clear. The bones and soft tissues are normal. The upper abdomen is unremarkable. IMPRESSION: No acute disease identifiable. Electronically Reviewed and Signed By DCTNAME , SIGNDATE, TEJA Transcribe Initials: DZ , Transcribe Date: 12/17/20 21:54, Dictation Date: [...] Negat 4 Clinical Report - Physicians/Mid Levels [facility] Emergency Department [address] [place] [address] Phone #: [phone] yrq- [phone] 12/17/2020 17:48 Patient: TEDDY LAWSON Sex: M : 1990 Age: 30y [...] Male GFR Interprentation 20-49 yrs >60 mL/min Bqsdur56-74 yrs >56 mL/min Normal 60-69 yrs >49 mL/min Normal 70-79yrs>42 mL/min Normal 80 and above >35 mL/min Normal Female GFRInterpretation 20-39 yrs >60 mL/min Normal 40-49 yrs >58 mL/minNormal 50-59 yrs >51 mL/min Normal 60-69 yrs >45 mL/min Rccemc63-43 yrs >39 mL/min Normal 80 and above [...] 3.40) 5 Clinical Report - Physicians/Mid Levels [facility] Emergency Department [address] [place] [address] Phone #: ext- [phone] 12/17/2020 17:48 Patient: TEDDY LAWSON Sex: M : 1990 Age: 30y #MONO 0.43 10/uL (0.00 - 0.90) #EOS 0.09 10/uL (0.00 - 0.70) #BASO 0.04 10/uL (0.00 - 0.20) #IG 0.04 10/uL ( 0.00 - 0.10) #NRBC 0.00 10/uL (0.00 - 0.00) MANUAL DIFF NOT INDICATED RBC MORPH NOT INDICATEDSalicylate Level: (LULU: 12/17/2020 19:20) ( MsgRcvd 12/17/2020 20:10) Final results Test Result Flag Units (Reference) SALICYLATE <0.3 L mg/dL (2.0 - 20.0)ETOH: ([facility]UL[facility]: 12/17/2020 19:20) ( [facility] [place] 20:10) Final results Test Result Flag Units (Reference) ALCOHOL 265.0 MG/DL ALCOHOL % 0.27 H % (0.00 - 0.01) *FOR MEDICAL PURPOSES ONLY*TSH: ([facility]UL[facility]: 12/17/2020 19:20) ( [facility] [place] 12/17/2020 20:23) Final results Test Result Flag Units (Reference) TSH 0.47 uIU/mL (0.47 - 5.01)Drug Screen-Urine: ([facility]: 12/17/2020 19:25) ( [facility] [place]/17/[place] 19:59) Final results Test Result Flag [...] PRESUMPTIVE POSITIVE CONFIRMATION [facility]COVID-19 CAH: ([facility]UL[facility]: 12/17/2020 19:20) ( [facility] [place] 12/17/2020 19:49) Final results Test Result Flag Units (Reference) COVID-19 NOT DETECTED COVID-19 REENTER NOT DETECTED { PROCEDURAL CONTROL VALID KIT LOT # [id number] 12/17/20.1948.JOVANNA. KIT EXP DATE _[id number] 36/25/21.1948.JOVANNA. NORMAL RANGE IS NOT DETECTEDNEGATIVE RESULTS SHOULD BE TREATEDAS PRESUMPTIVE AND, IF INCONSISTENT WITHCLINICAL SIGNS AND SYMPTOMS OR NECESSARY FOR PATIENT MANAGEMENT, SHOULDBETESTED WITH DIFFERENT AUTHORIZED OR CLEARED MOLECULAR TESTS. NEGATIVE RESULTSDO NOT PRECLUDE [id number] AND SHOULD NOT BE USED THE SOLE BASISFOR PATIENT MANAGEMENT DECISIONS. 6 Clinical Report - Physicians/Mid Levels [facility] Emergency Department [address] [place] [address] Phone #: ext- [phone] 12/17/2020 17:48 Patient: TEDDY LAWSON Sex: M : 1990 Age: 30y.PROGRESS AND PROCEDURESCourse of Care: 18:47 12/17/20. Patient ambulatory without difficulty. No obvious injuries. He denies anyself injury. He currently has no complaints. 20:21 12/17/20. Patient is acting erratic. reporting feeling depressed. 06:36 12/18/20. Patient awake and requesting to go to [facility]. "Send me to [facility] or send me home" Patient's case discussed with ED physician at [facility] who is familiar with the patient. Dr. Sandra agrees to accept to patient to the ED. Disposition: Transferred to 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, associated with schizophrenia.(Electronically signed by Pedro Rizo 12/18/2020 06:44) Name Value Range Interpretation Code Description Data Cecy rce(s) Supporting Document(s) ID Date Data Source [id number] 12/18/2020 04:31:00 AM EST [facility] Name Value Range Interpretation Code Description Data Cecy rce(s) Supporting Document(s) Ethanol [Moles/volume] in Blood 100.0 MG/DL [facility] ALCOHOL % 0.10 % 0.00 - 0.01 H [facility] ital *FOR MEDICAL PURPOSES ONLY * ID Date Data Source [id number] 12/17/2020 08:23:00 PM EST [facility] Name Value Range Interpretation Code Description Data Cecy rce(s) Supporting Document(s) [facility]IS [facility] URINALYSIS SOURCE R [facility] COLOR yellow NORMAL: Yellow [facility] ospital CLARITY clear NORMAL: Clear [facility] spital Specific gravity of Urine by Test strip 1.010 1.001 - 1.030 [facility] pH 7 5 - 9 [facility] al Glucose [Mass/volume] in Urine by Test strip NORM NORMAL: Negat [facility] Bilirubin.total [Presence] in Urine by Test strip NEG NORMAL: Negative [facility] Ketones [Presence] in Urine by Test strip NEG NORMAL: Negative [facility] Protein [Mass/volume] in Urine by Test strip NEG NORMAL: Negat [facility] Nitrite [Presence] in Urine by Test strip NEG NORMAL: Negative [facility] BLOOD NEG NORMAL: Negative [facility] Leukocyte esterase [Presence] in Urine by Test strip NEG [place] L: Negative [facility] Urobilinogen [Mass/volume] in Urine by Test strip NOR less alida n 1.0 mg/dL [facility] MICROSCOPIC Not Indicate [facility] ospital ID Date Data Source [id number] 12/17/2020 07:58:00 PM EST [facility] Name Value Range Interpretation Code Description Data Cecy rce(s) Supporting Document(s) DRUG SCREEN URINE [facility] URINE DRUG SCREEN Amphetamine [Presence] in Urine by Screen method NEGATIVE NORMAL: N EGATIVE [facility] BARBITURATES NEGATIVE NORMAL: NEGATIVE [facility] BENZO NEGATIVE NORMAL: NEGATIVE [facility] COCAINE NEGATIVE NORMAL: NEGATIVE [facility] Tetrahydrocannabinol [Presence] in Urine NEGATIVE NORMAL: NEGATIVE [facility] OPIATES NEGATIVE NORMAL: NEGATIVE [facility] Phencyclidine [Presence] in Urine by Screen method NEGATIVE NOR MAL: NEGATIVE [facility] \\BLDo\\URINE DRUG SCR EEN INTERPRETATION\\BLDx\\ THE CUTOFFF LEVELS FOR DETECTION ARE FOLLOWS: AMPHETAMINES 1000 ng/ml BARBITUARATES 200 ng/ml BENZODIAZEPINES 100 ng/ml THC 50 ng/ml PHENCYCLIDINE 25 ng/ml OPIATES 300 ng/ml COCAINE 300 ng/ml ALL POSITIVES ARE CONSIDERED PRESUMPTIVE POSITIVE CONFIRMATION WILL BE PERFORMED AT PHYSICIAN REQUEST. ID Date Data Source [id number] 12/17/2020 07:20:00 PM EST [facility] Name Value Range Interpretation Code Description Data Cecy rce(s) Supporting Document(s) COVID19 Case rprt NOT DETECTED [facility] This lab was ordered by [facility] and reported by [facility]. ID Date Data Source [id number] 12/17/2020 08:23:00 PM EST [facility] Name Value Range Interpretation Code Description Data Cecy rce(s) Supporting Document(s) Thyrotropin [Units/volume] in Serum or Plasma by Detec tion limit <= 0.05 mIU/L 0.47 uIU/mL 0.47 - 5.01 [facility] ID Date Data Source [id number] 12/17/2020 08:10:00 PM EST [facility] Name Value Range Interpretation Code Description Data Cecy rce(s) Supporting Document(s) Ethanol [Moles/volume] in Blood 265.0 MG/DL [facility] ALCOHOL % 0.27 % 0.00 - 0.01 H [facility] ital *FOR MEDICAL PURPOSES ONLY * ID Date Data Source [id number] 12/17/2020 08:10:00 PM EST [facility] Name Value Range Interpretation Code Description Data Cecy rce(s) Supporting Document(s) BASIC METABOLIC PANEL [facility] BASIC METABOLIC PANEL Sodium [Moles/volume] in Serum or Plasma 142 mEq/L 134 - 153 [facility] Potassium [Moles/volume] in Serum or Plasma 3.3 mEq/L 3.6 - 5.0 L [facility] Chloride [Moles/volume] in Serum or Plasma 104 mEq/L 98 - 107 [facility] Carbon dioxide, total [Moles/volume] in Serum or Plasma 28 MEQ/L 22 - 30 [facility] Glucose [Mass/volume] in Serum or Plasma 91 MG/DL 70 - 99 [facility] BUN 5 MG/DL 7 - 21 L [facility] Creatinine [Mass/volume] in Serum or Plasma 0.6 MG/DL 0.7 - 1.5 L [facility] BUN/CREAT 8 8 - 27 [facility] al Calcium [Mass/volume] in Serum or Plasma 9.0 MG/DL 8.4 - 10.2 [facility] Anion gap 3 in Serum or Plasma 10.0 mmol/L 8.0 - 16.0 [facility] AGE 30 yrs [facility] AFR AMER GFR >60 mL/min [facility] NON-AA GFR >60 mL/min [facility] ital Male GFR Inter prentation 20-49 yrs [...] >32 mL/min Normal ID Date Data Source [id number] 12/17/2020 08:10:00 PM [facility] Name Value Range Interpretation Code Description Data Cecy rce(s) Supporting Document(s) SALICYLATE <0.3 mg/dL 2.0 - 20.0 L [facility] p[facility] ID Date Data Source [id number] 12/17/2020 08:10:00 PM [facility] Name Value Range Interpretation Code Description Data Cecy rce(s) Supporting Document(s) Acetaminophen [Presence] in Urine <5.0 UG/ML 0.0 - 30.0 [facility] ID Date Data Source [id number] 12/17/2020 07:48:00 PM [facility] NOT DETECTEDNOT DETECTED{ PROC EDURAL CONTROL VALID KIT LOT # [id number] 12/17/20.JOVANNA. KIT EXP DATE _[id number] 12/17/20.JOVANNA. NORMAL RANGE IS NOT DETECTEDNEGATIVE RESULTS SHOULD BE TREATED PRESUMPTIVE AND, IF INCONSISTENT WITHCLINICAL SIGNS AND SYMPTOMS OR NECESSARY FOR PATIENT MANAGEMENT, SHOULD BETESTED WITH DIFFERENT AUTHORIZED OR CLEARED MOLECULAR TESTS. NEGATIVE RESULTSDO NOT PRECLUDE SARS-CoV-2 INFECTION AND SHOULD NOT BE USED THE SOLE BASISFOR PATIENT MANAGEMENT DECISIONS. Name Value Range Interpretation Code Description Data [facility](s) Supporting Document(s) ID Date Data Source [id number] 12/17/2020 07:34:00 PM EST [facility] Name Value Range Interpretation Code Description Data [facility](s) Supporting Document(s) CBC W/AUTOMATED DIFF [facility] COMPLETE BLOOD COUNT Leukocytes [#/volume] in Blood by Automated count 5.9 10^3/uL 4.2 - 1 1.0 [facility] Erythrocytes [#/volume] in Blood by Automated count 5.71 10^6/uL 4. 50 - 6.30 [facility] Hemoglobin [Mass/volume] in Blood 18.0 g/dL 14.0 - 16.0 H [facility] Hematocrit [Volume Fraction] of Blood by Automated count 50.9 % 4 1.0 - 51.0 [facility] Erythrocyte mean corpuscular volume [Entitic volume] by Auto mated count 89.1 fL 80.0 - 94.0 [facility] Erythrocyte mean corpuscular hemoglobin [Entitic mass] by Automated count 31.5 pg 27.0 - 34.0 [facility] Erythrocyte mean corpuscular hemoglobin concentration [Mass/volume] by Automated count 35.4 g/dL 31.0 - 36.0 [facility] Erythrocyte distribution width [Ratio] by Automated count 12.6 % 11.5 - 14.8 [facility] Platelets [#/volume] in Blood by Automated count 304 10^3/uL 150 - 45 0 [facility] Platelet mean volume [Entitic volume] in Blood by Automated count 9.2 fL 7.4 - 10.4 [facility] Neutrophils/100 leukocytes in Blood by Automated count 46.7 % 37. 0 - 80.0 [facility] Lymphocytes/100 leukocytes in Blood by Manual count 43.1 % 25.0 - 40.0 H [facility] Monocytes/100 leukocytes in Blood by Automated count 7.3 % 3.0 - 8.0 [facility] Eosinophils/100 leukocytes in Blood by Automated count 1.5 % 0.0 - 7.0 [facility] Basophils/100 leukocytes in Blood by Automated count 0.7 % 0.0 - 2.0 [facility] %IG 0.7 % 0.0 - 0.0 H [facility] al %NRBC 0.0 % 0.0 - 0.0 [facility] al Neutrophils [#/volume] in Blood by Automated count 2.75 10^3/uL 2.00 - 6.90 [facility] Lymphocytes [#/volume] in Blood by Automated count 2.54 10^3/uL 0.60 - 3.40 [facility] Monocytes [#/volume] in Blood by Automated count 0.43 10^3/uL 0.00 - 0.90 [facility] Eosinophils [#/volume] in Blood by Automated count 0.09 10^3/uL 0.00 - 0.70 [facility] Basophils [#/volume] in Blood by Automated count 0.04 10^3/uL 0.00 - 0.20 [facility] #IG 0.04 10^3/uL 0.00 - 0.10 [facility] #NRBC 0.00 10^3/uL 0.00 - 0.00 [facility] MANUAL DIFF NOT INDICATED [facility] RBC MORPH NOT INDICATED [facility] spital ID Date Data Source [id number] 11/19/2020 06:01:00 [place] [id number] RESPIRATORY CARE REPORT ==== ---------NAME------- NUMBER SEX AGE ADMIT DISCBritt CRONINAY# F/C JULIAN Navarro [id number] M 30 11/17/20 11/18/20 [id number] XBE E/R DATE OF : 1990 M/R# [id number] #: [phone] TR-03 LOCATION: EMERGENCY DEPT EKG 11351 COMP LETE:11/18/20 01:52 [place] [id number] PHYSICIAN: JUDY Cr Name Value Range Interpretation Code Description Data Cecy rce(s) Supporting Document(s) ID Date Data Source [id number] 11/17/2020 10:05:00 PM EST [facility] 1 OrderSheet [facility] Emergency Department [address] [place] [address] Phone #: ext- [phone] 11/17/2020 22:04 Patient: TEDDY LAWSON Sex: M : 1990 Age: 30yWEIGHT:83.9 kg HEIGHT:70 inches BMI:26.5ALLERGIES: No Known Drug AllergyCHIEF COMPLAINT: depressed, anxious, agitated, angryDIAGNOSIS: Depressive disorder, Bipolar disorderLAB ORDERSOrder Description Priority Entered Acknowledged InitialedCBC w Diff STAT 22:25 11/17/2020 22:32 Judy Dorado Jack ; Shweta MayerCMP STAT 22:11/17/2020 22:32 Judy Dorado Jack ; Shweta Lawson.WaiTSH STAT 22:11/17/2020 22:32 Judy Dorado Jack ; Shweta R.Vira.Acetaminophen STAT 22:11/17/2020 22:32 Lexi Dorado Jack ; Shweta R.WaiSalicylate Level STAT 22:11/17/2020 22:32 Judy Dorado Jack ; Shweta R.N.ETOH STAT 22:11/17/2020 22:32 Judy Dorado Jack ; Shweta R.Vira.Drug Screen-Urine STAT 22:25 11/17/2020 22:32 Judy Dorado Jack ; Shwtea MayerCOVID-19 CAH (Not STAT 23:55 11/17/2020 00:27 11/18/2020ymptomatic as Pedro Rizo ; Shweta Dorado R.N.Defined by CDC)(11/17/2020) (NotFirst Test) (NotHospitalized) (Not) (NotResident inCongregate CareSetting) (NotEmployed inHealthcare Setting)DIAGNOSTIC STUDY ORDERSOrder Desc ription Priority Entered Acknowledged InitialedMEDICATION/IV/DRIP/FLUID ORDERS 2 OrderSheet [facility] Emergency Department [address] [place] [address] Phone #: ext- [phone] 11/17/2020 22:04 Patient: TEDDY LAWSON Sex: M : 1990 Age: 30yOrder Description Priority Entered Acknowledged InitialedAcetaminophen PO 03:21 11/18/2020 03:27 Estrada1000 mg (NOW x1) Pedro Rizo ; Shweta MayerGENERAL ORDERSOrder Description Priority Entered Acknowledged In itialedEKG 22:25 11/17/2020 22:32 Judy Dorado Jack ; Shweta Mayer[Electronically signed by Pedro Rizo (05:29 11/18/2020)][Electronically signed by Shweta Dorado R.N. (05:38 11/18/2020)][Electronically locked by Shweta Dorado R.N. (05:38 11/18/2020)] Name Value Range Interpretation Code Description Data Cecy rce(s) Supporting Document(s) ID Date Data Source [id number] 11/17/2020 10:05:00 PM EST [facility] 1 Medication Reconciliation Report [facility] Emergency Department [address] [place] [address] Phone #: ext- [phone] 11/17/2020 22:04 [id number] Sex: [facility] : 1990 Age: 30yWeight: 83.9 [...] Value Range Interpretation Code Description Data [facility] rce(s) Supporting Document(s) ID Date Data Source [id number] 11/17/2020 10:05:00 PM [place] [address] Medication Administration Record [facility] Emergency Department [address] [place] [address] Phone #: flr- [phone] 11/17/2020 22:04 Patient: TEDDY LAWSON Sex: M : 1990 Age: 30yWeight: 83.9 kgHeight/Length: 70 inBMI: 26.5ALLERGIES: No Known Drug Allergy Date/Time Medication Administered Medication OrderedGiven ACETAMINOPHEN [PO] Acetaminophen PO 1000 mg03:11/18/2020 Dose: 1000 mg Tablets PO (NOW x1)Shweta Dorado R.N. Name Value Range Interpretation Code Description Data [facility] rce(s) Supporting Document(s) ID Date Data Source [id number] 11/17/2020 10:05:00 PM [facility] 1 General Instructions [facility] Emergency Department [address] [place] [address] Phone #: ext- [phone] 11/17/2020 22:04 Patient: TEDDY LAWSON Sex: M : 1990 Age: 30yAcute bipolar disorder with the current episode being severely manic without psychosis.Recurrent moderate major depressive disorder without psychosis.(Electronically signed by Pedro Rizo 11/18/2020 05:29) Name Value Range Interpretation Code Description Data Cecy rce(s) Supporting Document(s) ID Date Data Source [id number] 11/17/2020 10:05:00 PM EST [facility] 1 Clinical Report - Nurses [facility] Emergency Department [address] [place] [address] Phone #: ext- [phone] 11/17/2020 22:04 Patient: TEDDY LAWSON Sex: M : 1990 Age: 30yTRIAGEArrived [...] covid", "I wish I never met them".).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 --22:15 11/17/20 Shweta Dorado R.N.22:08 11/17/20. BP: [...] "Do you 2 Clinical Report - Nurses [facility] Emergency Department [address] [place] [address] Phone #: ext- [phone] 11/17/2020 22:04 Patient: TEDDY LAWSON [facility]#: [id number] Sex: M : 1990 Age: 30y feel safe in your home?" and "Are you afraid to go home?". No report of abuse. --22:15 11/17/20 Shweta Dorado R.N. FALL RISK ASSESSMENT: Fall risk assessment completed. No risk factors identified. --05:37 11/18/20 Shweta Dorado R.N. FAMILY HX: No significant family medical history. --22:31 11/17/20 Pedro Rizo.PHYSICAL ASSESSMENTGENERAL / NEURO / PSYCH: Appears anxious. [...] the ambulance door at this time. Dr. Rizo made aware.). GENERAL / NEURO / PSYCH: [...] this time to come back in the [place] [facility] and wait for transfer to another facility. Patient is c ooperative at this time.). --01:13 11/18/20 Shweta Dorado R.N. ( Patient is sleeping at this time.). --01:51 11/18/20 Shweta Dorado R.N. Patient waiting for disposition. ( Patient updated on plan of care, information has been faxed to [facility] for review. Patient is cooperative at this [...] will make 3 Clinical Report - Nurses [facility] Emergency Department [address] [place] [address] Phone #: ext- [phone] 11/17/2020 22:04 Patient: TEDDY LAWSON Sex: M : 1990 Age: 30y MD aware.). Call light placed in reach. --03:12 11/18/20 Jordin Hitchcock 03:27 11/18/2020 Acetaminophen PO Tablets 1000 mg given. Allergies verified. Information reviewed with patient. --03:27 11/18/20 Shweta Dorado R.N. ( Attempted to call [facility] regarding transfer.). --04:45 11/18/20 Shweta Dorado R.N.DISPOSITION / DISCHARGE Departure time: 05:37 11/18/2020. Condition at departure: unchanged. Transferred to [facility]. Visit overview, summary of care [...] rce(s) Supporting Document(s) ID Date Data Source [id number] 11/17/2020 10:05:00 PM [facility] 1 Clinical Report - Physicians/Mid Levels [facility] Emergency Department [address] [place] [address] Phone #: ext- [phone] 11/17/2020 22:04 Patient: TEDDY LAWSON Sex: M : 1990 Age: 30y [...] Surgery. 2 Clinical Report - Physicians/Mid Levels [facility] Emergency Department [address] [place] [address] Phone #: ext- [phone] 11/17/2020 22:04 Patient: TEDDY LAWSON Sex: M : 1990 Age: 30y [...] # _[id number] 11/18/20.0039.AB . KIT EXP DATE _[id number] 11/18/20.0039.AB . NORMAL RANGE IS NOT DETECTEDNEGATIVE [...] DIFF 3 Clinical Report - Physicians/Mid Levels [facility] Emergency Department [address] [place] [address] Phone #: ext- [phone] 11/17/2020 22:04 Patient: TEDDY LAWSON Sex: M : 1990 Age: 30y [...] Male GFR Interprentation 20-49 yrs >60 mL/min Maeqtf28-56 yrs >56 mL/min Normal 60-69 yrs >49 mL/min Normal 70-79yrs>42 mL/min Normal 80 and above >35 mL/min Normal Female GFRInterpretation 20-39 yrs >60 mL/min Normal 40-49 yrs >58 mL/minNormal 50-59 yrs >51 mL/min Normal 60-69 yrs >45 mL/min Chyrcu36-92 yrs >39 mL/min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 hemoglobin [Entitic mass] by Automated count 30.2 pg 27.0 - 34.0 [facility] Erythrocyte mean corpuscular hemoglobin concentration [Mass/volume] by Automated count 34.5 g/dL 31.0 - 36.0 [facility] Erythrocyte distribution width [Ratio] by Automated count 12.7 % 11.5 - 14.8 [facility] Platelets [#/volume] in Blood by Automated count 318 10^3/uL 150 - 45 0 [facility] Platelet mean volume [Entitic volume] in Blood by Automated count 9.5 fL 7.4 - 10.4 [facility] Neutrophils/100 leukocytes in Blood by Automated count 63.9 % 37. 0 - 80.0 [facility] Lymphocytes/100 leukocytes in Blood by Manual count 26.6 % 25.0 - 40.0 [facility] Monocytes/100 leukocytes in Blood by Automated count 6.8 % 3.0 - 8.0 [facility] Eosinophils/100 leukocytes in Blood by Automated count 1.4 % 0.0 - 7.0 [facility] Basophils/100 leukocytes in Blood by Automated count 0.5 % 0.0 - 2.0 [facility] %IG 0.8 % 0.0 - 0.0 H [facility] Hospit al %NRBC 0.0 % 0.0 - 0.0 [facility] Neutrophils [#/volume] in Blood by Automated count 5.90 10^3/uL 2.00 - 6.90 [facility] Lymphocytes [#/volume] in Blood by Automated count 2.46 10^3/uL 0.60 - 3.40 [facility] Monocytes [#/volume] in Blood by Automated count 0.63 10^3/uL 0.00 - 0.90 [facility] Eosinophils [#/volume] in Blood by Automated count 0.13 10^3/uL 0.00 - 0.70 [facility] Basophils [#/volume] in Blood by Automated count 0.05 10^3/uL 0.00 - 0.20 [facility] #IG 0.07 10^3/uL 0.00 - 0.10 [facility] #NRBC 0.00 10^3/uL 0.00 - 0.00 [facility] MANUAL DIFF NOT INDICATED [facility] RBC MORPH NOT INDICATED [facility] spital ID Date Data Source [id number] 08/31/2020 09:29:00 [place] [address] RESPIRATORY CARE REPORT ==== ---------NAME------- NUMBER SEX AGE ADMIT DISC. XRAY# F/C JULIAN Navarro [id number] M 29 08/29/20 08/29/20 [id number] XBE E/R DATE OF : 1990 M/R# [id number] #: [id number] TR-03 LOCATION: EMERGENCY DEPT EKG 13574 COMP LETE:08/29/20 01:26 VMT 99072 PHYSICIAN: ANTHONY GODINEZ Name Value Range Interpretation Code Description Data Cecy rce(s) Supporting Document(s) ID Date Data Source [id number] 08/29/2020 12:13:00 AM EST [facility] 1 OrderSheet [facility] Emergency Department [address] [place] [address] Phone #: ext- [phone] 08/29/2020 00:12 Patient: TEDDY LAWSON Sex: M : 1990 Age: 29yWEIGHT:82.8 [...] Prudencio FernandoCMP STAT 00:37 08/29/2020 01:42 Prudencio Brary R.N. Physician; Reason for ordering with alerts: Benefits outweigh risks -- 00:37 08/29/2020 Prudencio DicksonC w Diff STAT 00:37 08/29/2020 01:41 Prudencio Barry R.N. Physician; Reason for ordering with alerts: Benefits outweigh risks -- 00:37 08/29/2020 Prudencio Cruz PhysicianLipase STAT 00:37 08/29/2020 01:41 Prudencio Barry R.N. Physician; Reason for ordering with alerts: Benefits outw eigh risks -- 00:37 08/29/2020 Prudencio FernandoLactic Acid STAT 00:37 08/29/2020 01:41 Prudencio Barry R.N. Physician; Reason for ordering with alerts: Benefits outweigh risks -- 00:37 08/29/2020 2 OrderSheet [facility] Emergency Department [address] [place] [address] Phone #: ext- [phone] 08/29/2020 00:12 Patient: TEDDY LAWSON Sex: M : 1990 Age: 29y [...] 08/29/2020 01:21 Prudencio Barry R.N. 3 OrderSheet [facility] Emergency Department [address] [place] [address] Phone #: ext- [phone] 08/29/2020 00:12 Patient: TEDDY LAWSON Sex: M : 1990 Age: 29y [...] rce(s) Supporting Document(s) ID Date Data Source [id number] 08/29/2020 12:13:00 AM EST [facility] 1 Medication Reconciliation Report [facility] Emergency Department [address] [place] [address] Phone #: ext- [phone] 08/29/2020 00:12 Patient: TEDDY LAWSON Sex: M : 1990 Age: 29yWeight: [...] rce(s) Supporting Document(s) ID Date Data Source [id number] 08/29/2020 12:13:00 AM EST [facility] 1 Medication Administration Record [facility] Emergency Department [address] [place] [address] Phone #: ext- [phone] 08/29/2020 00:12 Patient: TEDDY LAWSON Sex: M : 1990 Age: 29yWeight: [...] rce(s) Supporting Document(s) ID Date Data Source [id number] 08/29/2020 12:13:00 AM EST [facility] 1 General Instructions [facility] Emergency Department [address] [place] [address] Phone #: ext- [phone] 08/29/2020 00:12 Patient: TEDDY LAWSON Sex: M : 1990 Age: 29yChronic [...] yourself at most times 2 General Instructions [facility] Emergency Department [address] [place] [address] Phone #: ext- [phone] 08/29/2020 00:12 Patient: TEDDY LAWSON Sex: M : 1990 Age: 29y [...] providers about all of the prescription medicines, zsfl-nkn-cynwcoi medicines, vitamins, and supplements you take. Certain [...] operates a toll-free ADA information line at: [phone] (Voice); or [phone] (TTY). They can help you locate a local office.Follow-up careFollow up with your healthcare provider, or as advised.Call [phone] if any of these occur: You have suicidal thoughts, a suicide plan, and the means to carry out the plan Trouble breathing 3 General Instructions [facility] Emergency Department [address] [place] [address] Phone #: ext- [phone] 08/29/2020 00:12 Patient: TEDDY LAWSON Sex: M : 1990 Age: 29y [...] who have expressed concern over your behavior [phone] [employer]. [address] [place] [address]. All rights reserved. This information is not intended as asubstitute for professional medical care. Always follow your healthcare professional's instructions. You have been given the following additional information: Schizophrenia, Paranoid Type(Electronically signed by Prudencio Cruz, Physician 08/30/2020 08:42) Name Value Range Interpretation Code Description Data Cecy rce(s) Supporting Document(s) ID Date Data Source [id number] 08/29/2020 12:13:00 AM EST [facility] 1 Clinical Report - Nurses [facility] Emergency Department [address] [place] [address] Phone #: ext- [phone] 08/29/2020 00:12 Patient: TEDDY LAWSON Sex: M : 1990 Age: 29yTRIAGEArrived [...] full sentences, no distress noted, patent airway.).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 --00:22 08/29/20 Carito Barry R.N.00:14 08/29/20. BP: 140/91. MAP: 107. HR: 62. RR: 16. O2 saturation: 96% on room air. Temp: 97.9 F.Pain level now: 03/01. --00:22 08/29/20 Carito Barry R.N.Weight: 82.8 kg measured. Height/Length: 70 inches Per Patient. BMI: 26.2. --00:17 08/29/20 Cairto Barry R.N.MedicationsSEROquel Oral (Tablet 300 mg) 1/2 tablet, daily at bedtime. --00:20 08/29/20 Carito Barry R.N.AllergiesNo Known Drug Allergy. --00:20 08/29/20 Carito Barry R.N.PROBLEMS:Insomnia: Chronic. --00:20 08/29/20 Carito Barry R.N.[place] disorder.Lifestyle / Substance Problems.Bipolar Disorder.Anxiety Reaction.ADHD - Attention Deficit Hyperactivity Disorder.Neurological Disease.Tension-Type Headache.Seizure Disorder.Seizure.STD - Sexually Transmitted Disease.Tendonitis.Tbi. 2 Clinical Report - Nurses [facility] Emergency Department [address] [place] [address] Phone #: ext- [phone] 08/29/2020 00:12 Patient: TEDDY LAWSON Sex: M : 1990 Age: 29yObsessive Compulsive [...] integrity risk 3 Clinical Report - Nurses [facility] Emergency Department [address] [place] [address] Phone #: ext- [phone] 08/29/2020 00:12 Patient: TEDDY LAWSON Sex: M : 1990 Age: 29y identified. [...] Barry R.N. 4 Clinical Report - Nurses [facility] Emergency Department [address] [place] [address] Phone #: ext- [phone] 08/29/2020 00:12 Patient: TEDDY LAWSON Sex: M : 1990 Age: 29y 03:44 08/29/20. BP: 126/82. MAP: 96. HR: 71. RR: 16. O2 saturation: 97% on room air. Temp: 98.1 F. Pain level now: 0/10. --03:44 08/29/20 Carito Barry R.N.Locked/Released at 08/29/2020 05:19 by Carito Barry R.N. Name Value Range Interpretation Code Description Data Cecy rce(s) Supporting Document(s) ID Date Data Source [id number] 08/29/2020 12:13:00 AM [facility] 1 Clinical Report - Physicians/Mid Levels [facility] Emergency Department [address] [place] [address] Phone #: ext- [phone] 08/29/2020 00:12 Patient: TEDDY LAWSON Sex: M : 1990 Age: 29y [...] Abrasions 2 Clinical Report - Physicians/Mid Levels [facility] Emergency Department [address] [place] [address] Phone #: ext- [phone] 08/29/2020 00:12 Patient: TEDDY LAWSON Sex: M : 1990 Age: 29y [...] ABD //T// PELV W/O ORAL [place] [address] ---------N RYANN--------- NUMBER SEX AGE ADMIT DISC. XRAY# F/C TYPE LULU PAGE Ramon [id number] M 29 08/29/20 [id number] NA E/R DATE OF : 1990 M/R# [id number] PH#: [phone] TR-03 3 Clinical Report - Physicians/Mid Levels [facility] Emergency Department [address] [place] [address] Phone #: ext- [phone] 08/29/2020 00:12 [id number] Sex[facility] M : 1990 Age: 29y LOCATION: EMERGENCY DEPT TRANSCRIBED: 08/29/20 2:[address] ABD //T// PELV W/O ORAL W/[place] [address] COMPLETED:08/29/20 2:18 RLB 30164 Reason(s): Trauma/Injury PHYSICIAN: ANTHONY BR = R [...] pathologyevident.IMPRESSION: 4 Clinical Report - Physicians/Mid Levels [facility] Emergency Department [address] [place] [address] Phone #: ext- [phone] 08/29/2020 00:12 Patient: TEDDY LAWSON Sex: M : 1990 Age: 29y No [...] Finalresults Exam CT ST [place]EC[place] W/[place] [address] ---------NAME--------- NUMBER SEX AGE ADMIT DISC. XRAY# F/C TYPE LULU Navarro [id number] M 29 08/29/20 [id number] NA E/R DATE OF : 1990 M/R# [id number] #: [id number] TR-03 LOCATION: EMERGENCY DEPT TRANSCRIBED: 08/29/20 2:[address] NECK W/O CONTRAST 62250 COMPLETED:08/29/20 2:18 RLB 76612 Reason(s): Trauma/Injury PHYSICIAN: ANTHONY BR R A [...] gas. 5 Clinical Report - Physicians/Mid Levels [facility] Emergency Department [address] [place] [address] Phone #: ext- [phone] 08/29/2020 00:12 Patient: TEDDY LAWSON Sex: M : 1990 Age: 29y [...] Final results Exam CT THORAX W/[place] [address] ---------NAME--------- NUMBER SEX AGE ADMIT DISC. XRAY# F/C TYPE LULU Navarro [id number] M 29 08/29/20 [id number] NA E/R DATE OF : 1990 M/R# [id number] #: [id number] TR-03 LOCATION: EMERGENCY DEPT TRANSCRIBED: 08/29/20 2:[address] THORAX W/O CONTRAST 54718 COMPLETED:08/29/20 2:18 RLB 13812 Reason(s): Trauma/Injury PHYSICIAN: ANTHONY BR R A [...] provided. 6 Clinical Report - Physicians/Mid Levels [facility] Emergency Department [address] [place] [address] Phone #: ext- [phone] 08/29/2020 00:12 Patient: TEDDY LAWSON Sex: M : 1990 Age: 29y [...] NEGAT 7 Clinical Report - Physicians/Mid Levels [facility] Emergency Department [address] [place] [address] Phone #: ext- [phone] 08/29/2020 00:12 Patient: TEDDY LAWSON Sex: M : 1990 Age: 29y THC NEGATIVE (NORMAL: NEGAT OPIATES NEGATIVE (NORMAL: NEGAT PCP NEGATIVE (NORMAL: NEGAT \\BLDo\\URINE DRUG SCREEN INTERPRETATION\\BLDx\\ THE CUTOFFF LEVELS FORDETECTION ARE FOLLOWS: AMPHETAMINES 1000 ng/mlBARBITUARATES 200 ng/ml BENZODIAZEPINES 100 ng/mlTHC 50 ng/ml PHENCYCLIDINE 25 ng/mlOPIATES 300 ng/ml COCAINE 300 ng/mlALL POSITIVES ARE CONSIDERED PRESUMPTIVE POSITIVE CONFIRMATION WILL BE PERFORMED AT [facility].CMP: (LULU: 08/29/2020 01:35) ( MsgRcvd 08/29/2020 02:03) [...] Male GFR Interprentation 20-49 yrs >60 mL/min Hkkvte64-58 yrs >56 mL/min Normal 60-69 yrs >49 mL/min Normal 70-79yrs>42 mL/min Normal 80 and above >35 mL/min Normal Female GFRInterpretation 20-39 yrs >60 mL/min Normal 40-49 yrs >58 mL/minNormal 50-59 yrs >51 mL/min Normal 60-69 yrs >45 mL/min Zcpylc62-98 yrs >39 mL/min Normal 80 and above [...] 8 C linical Report - Physicians/Mid Levels [facility] Emergency Department [address] [place] [address] Phone #: ext- [phone] 08/29/2020 00:12 Patient: TEDDY LAWSON Sex: M : 1990 Age: 29y [...] NOT INDICATED Lipase: (LULU: 08/29/2020 01:35) ( [facility] 02:03) Final results Test Result Flag Units (Reference) LIPASE 37 U/L (13 - 60) Lactic Acid: (LULU: 08/29/2020 01:35) ( [facility] [place] 01:45) Final results Test Result Flag Units (Reference) LACTIC ACID 1.0 MMOL/L (0.2 - 2.2) . Note - Tests: (CT soft tissue neck - Unremarkable CT chest - Unremarkable CT abdomen / pelvis - Unremarkable EKG - Sinus bradycardia).PROGRESS AND PROCEDURESCourse of Care: 03:20 Aug 29 2020. Patient is stable. Symptoms much better. 03:Aug 29 2020. There is no indication that [...] tendencies.). 9 Clinical Report - Physicians/Mid Levels [facility] Emergency Department [address] [place] [address] Phone #: ext- [phone] 08/29/2020 00:12 Patient: TEDDY LAWSON Sex: M : 1990 Age: 29yINSTRUCTIONS [...] rce(s) Supporting Document(s) ID Date Data Source [id number] 08/29/2020 02:56:[address] [address] ---------NAME--------- NUMBER SEX AGE ADMIT DISC. XRAY# F/C TYPE LULU Navarro [id number] M 29 08/29/20 [id number] NA E/R DATE OF : 1990 M/R# [id number] #: [id number] TR-03 LOCATION: EMERGENCY DEPT TRANSCRIBED: 08/29/20 2:[address] THORAX W/O CONTRAST 97981 COMPLETED:08/29/20 2:18 RLB 87811 Reason(s): Trauma/Injury PHYSICIAN: ANTHONY BR R A [...] rce(s) Supporting Document(s) ID Date Data Source [id number] 08/29/2020 02:39:00 AM [facility] 1001 [facility] [place] [address] ---------NAME--------- NUMBER SEX AGE ADMIT DISC. XRAY# F/C TYPE MANTLE TEDDY Navarro [id number] M 29 08/29/20 [id number] NA E/R DATE OF : 1990 M/R# [id number] #: [id number] TR-03 LOCATION: EMERGENCY DEPT TRANSCRIBED: 08/29/20 2:[address] ABD //T// PELV W/[place] [id number] COMPLETED:08/29/20 2:18 RLB [id number] Reason(s): Trauma/Injury PHYSICIAN: ANTHONY GODINEZ======== R A [...] rce(s) Supporting Document(s) ID Date Data Source [id number] 08/29/2020 02:37:[address] [address] ---------NAME--------- NUMBER SEX AGE ADMIT DISC. XRAY# F/C TYPE MANTLE TEDDY D [id number] M 29 08/29/20 [id number] NA E/R DATE OF : 1990 M/R# [id number] #: [id number] TR-03 LOCATION: EMERGENCY DEPT TRANSCRIBED: 08/29/20 2:[address] NECK W/O CONTRAST [id number] COMPLETED:08/29/20 2:18 RLB [id number] Reason(s): Trauma/Injury PHYSICIAN: ANTHONY BR R A [...] rce(s) Supporting Document(s) ID Date Data Source [id number] 08/29/2020 02:02:00 AM [facility] Name Value Range Interpretation Code Description Data Cecy rce(s) Supporting Document(s) Lipase [Enzymatic activity/volume] in Serum or Plasma 37 U/L 13 - 60 [facility] ID Date Data Source [id number] 08/29/2020 02:02:00 AM [facility] Name Value Range Interpretation Code Description Data Cecy rce(s) Supporting Document(s) COMPREHENSIVE METABOLIC PANEL [facility] COMPREHENSIVE METABOLIC PANEL Sodium [Moles/volume] in Serum or Plasma 136 mEq/L 134 - 153 [facility] Potassium [Moles/volume] in Serum or Plasma 3.8 mEq/L 3.6 - 5.0 [facility] Chloride [Moles/volume] in Serum or Plasma 103 mEq/L 98 - 107 [facility] Carbon dioxide, total [Moles/volume] in Serum or Plasma 26 MEQ/L 22 - 30 [facility] Glucose [Mass/volume] in Serum or Plasma 106 MG/DL 65 - 110 [facility] BUN 14 MG/DL 7 - 21 [facility] al Creatinine [Mass/volume] in Serum or Plasma 0.6 MG/DL 0.7 - 1.5 L [facility] BUN/CREAT 23 8 - 27 [facility] al Protein [Mass/volume] in Serum or Plasma 6.6 G/DL 6.3 - 8.2 [facility] Albumin [Mass/volume] in Serum or Plasma 4.3 G/DL 3.9 - 5.0 [facility] Globulin [Mass/volume] in Serum by calculation 2.3 GM/DL 2.4 - 3.2 L [facility] A/G RATIO 1.9 0.8 - 2.0 [facility] Calcium [Mass/volume] in Serum or Plasma 9.3 MG/DL 8.4 - 10.2 [facility] Bilirubin.total [Mass/volume] in Serum or Plasma 0.8 MG/DL 0.2 - 1.3 [facility] Alkaline phosphatase [Enzymatic activity/volume] in Serum or Plasma 108 U/L 38 - 126 [facility] Aspartate aminotransferase [Enzymatic activity/volume] in Serum or Plasma 17 U/L 5 - 40 [facility] Alanine aminotransferase [Enzymatic activity/volume] in Seru m or Plasma 18 U/L 7 - 56 [facility] Anion gap 3 in Serum or Plasma 7.0 mmol/L 8.0 - 16.0 L [facility] AGE 29 yrs [facility] Hospit al NON-AA GFR >60 mL/min [facility] Hosp ital AFR AMER GFR >60 mL/min [facility] Ho spital Male GFR In terprentation [...] >32 mL/min Normal ID Date Data Source [id number] 08/29/2020 01:45:00 AM [facility] Name Value Range Interpretation Code Description Data Cecy rce(s) Supporting Document(s) Lactate [Moles/volume] in Serum or Plasma 1.0 MMOL/L 0.2 - 2.2 [facility] ID Date Data Source [id number] 08/29/2020 01:42:00 AM [facility] Name Value Range Interpretation Code Description Data Cecy rce(s) Supporting Document(s) CBC W/AUTOMATED DIFF [facility] COMPLETE BLOOD COUNT Leukocytes [#/volume] in Blood by Automated count 8.4 10^3/uL 4.2 - 1 1.0 [facility] Erythrocytes [#/volume] in Blood by Automated count 4.97 10^6/uL 4. 50 - 6.30 [facility] Hemoglobin [Mass/volume] in Blood 15.1 g/dL 14.0 - 16.0 [facility] Hematocrit [Volume Fraction] of Blood by Automated count 43.8 % 4 1.0 - 51.0 [facility] Erythrocyte mean corpuscular volume [Entitic volume] by Auto mated count 88.1 fL 80.0 - 94.0 [facility] Erythrocyte mean corpuscular hemoglobin [Entitic mass] by Automated count 30.4 pg 27.0 - 34.0 [facility] Erythrocyte mean corpuscular hemoglobin concentration [Mass/volume] by Automated count 34.5 g/dL 31.0 - 36.0 [facility] Erythrocyte distribution width [Ratio] by Automated count 12.6 % 11.5 - 14.8 [facility] Platelets [#/volume] in Blood by Automated count 258 10^3/uL 150 - 45 0 [facility] Platelet mean volume [Entitic volume] in Blood by Automated count 9.9 fL 7.4 - 10.4 [facility] Neutrophils/100 leukocytes in Blood by Automated count 59.4 % 37. 0 - 80.0 [facility] Lymphocytes/100 leukocytes in Blood by Manual count 28.6 % 25.0 - 40.0 [facility] Monocytes/100 leukocytes in Blood by Automated count 8.9 % 3.0 - 8.0 H [facility] Eosinophils/100 leukocytes in Blood by Automated count 2.1 % 0.0 - 7.0 [facility] Basophils/100 leukocytes in Blood by Automated count 0.6 % 0.0 - 2.0 [facility] %IG 0.4 % 0.0 - 0.0 H [facility] al %NRBC 0.0 % 0.0 - 0.0 [facility] al Neutrophils [#/volume] in Blood by Automated count 4.99 10^3/uL 2.00 - 6.90 [facility] Lymphocytes [#/volume] in Blood by Automated count 2.40 10^3/uL 0.60 - 3.40 [facility] Monocytes [#/volume] in Blood by Automated count 0.75 10^3/uL 0.00 - 0.90 [facility] Eosinophils [#/volume] in Blood by Automated count 0.18 10^3/uL 0.00 - 0.70 [facility] Basophils [#/volume] in Blood by Automated count 0.05 10^3/uL 0.00 - 0.20 [facility] #IG 0.03 10^3/uL 0.00 - 0.10 [facility] H ospital #NRBC 0.00 10^3/uL 0.00 - 0.00 [facility] ospital MANUAL DIFF NOT INDICATED [facility] RBC MORPH NOT INDICATED [facility] Ho spital ID Date Data Source [id number] 08/29/2020 01:40:00 AM EST [facility] Name Value Range Interpretation Code Description Data Cecy rce(s) Supporting Document(s) DRUG SCREEN URINE [facility] URINE DRUG SCREEN Amphetamine [Presence] in Urine by Screen method NEGATIVE NORMAL: N EGATIVE [facility] BARBITURATES NEGATIVE NORMAL: NEGATIVE [facility] BENZO NEGATIVE NORMAL: NEGATIVE [facility] COCAINE NEGATIVE NORMAL: NEGATIVE [facility] Tetrahydrocannabinol [Presence] in Urine NEGATIVE NORMAL: NEGATIVE [facility] OPIATES NEGATIVE NORMAL: NEGATIVE [facility] Phencyclidine [Presence] in Urine by Screen method NEGATIVE NOR MAL: NEGATIVE [facility] \\BLDo\\URINE DRUG SCR EEN INTERPRETATION\\BLDx\\ THE CUTOFFF LEVELS FOR DETECTION ARE FOLLOWS: AMPHETAMINES 1000 ng/ml BARBITUARATES 200 ng/ml BENZODIAZEPINES 100 ng/ml THC 50 ng/ml PHENCYCLIDINE 25 ng/ml OPIATES 300 ng/ml COCAINE 300 ng/ml ALL POSITIVES ARE CONSIDERED PRESUMPTIVE POSITIVE CONFIRMATION WILL BE PERFORMED AT PHYSICIAN REQUEST. ID Date Data Source [id number] 08/29/2020 01:25:00 AM [facility] Name Value Range Interpretation Code Description Data Cecy rce(s) Supporting Document(s) [facility]IS [facility] ak[facility]ha URINALYSIS SOURCE R [facility] COLOR yellow NORMAL: Yellow [facility] ospital CLARITY clear NORMAL: Clear [facility] Ho spital Specific gravity of Urine by Test strip 1.010 1.001 - 1.030 [facility] pH 6.5 5 - 9 [facility] al Glucose [Mass/volume] in Urine by Test strip NORM NORMAL: Negat delia [facility] Bilirubin.total [Presence] in Urine by Test strip NEG NORMAL: Negative [facility] Ketones [Presence] in Urine by Test strip NEG NORMAL: Negative [facility] Protein [Mass/volume] in Urine by Test strip NEG NORMAL: Negat delia [facility] Nitrite [Presence] in Urine by Test strip NEG NORMAL: Negative [facility] BLOOD NEG NORMAL: Negative [facility] Leukocyte esterase [Presence] in Urine by Test strip NEG [place] L: Negative [facility] Urobilinogen [Mass/volume] in Urine by Test strip NOR less alida n 1.0 mg/dL [facility] MICROSCOPIC Not Indicate [facility] ospital ID Date Data Source [id number] 08/19/2020 01:52:52 PM EDT [facility] Vital SignsBlood Pressure: 138/82 Patient History Medical History:Brain TumorSeizure DisorderDepressionHx of kidney stonesBipolarSurgical History:Partial lobectomyFamily History:No known family historySocial/Personal History: Smoking Status: current some day smokerDo you vape? NoCurrent Problems: Normal examination (ICD-V65.5) (YWN37-D55.1)Dental caries/Impaction of teeth (ICD-521.00) (EEG54-Q27.9)Contact dermatitis and other eczema, unspecified cause (ICD-692.9) (ATM22-N33.9)Depression (ICD-311) (DDM59-Q94.9)Seizure Disorder (ICD-780.39) (TMA95-N26.9)Brain Tumor (ICD-191.9) (NUQ23-F87.9)Problem list reviewed during this update.Current Medications: SEROQUEL [...] PM): ; yany (Aug 20 2020 7:29AM): [facility](-). CC: none. Reviewed Xrays. Exam: caries [...] Known Allergies (updated 08/19/2020) Orders:Oral Surgery Referral [[id number]] Clinical Visit Summary Declined Name Value Range Interpretation Code Description Data Cecy rce(s) Supporting Document(s) ID Date Data Source [id number] 08/14/2020 07:17:00 PM EDT [facility] 1 Medication Reconciliation Report [facility] Emergency Department [address] [place] [address] Phone #: ext- [phone] 08/14/2020 19:09 Patient: TEDDY LAWSON Sex: M : 1990 Age: 29yWeight: [...] rce(s) Supporting Document(s) ID Date Data Source [id number] 08/14/2020 07:17:00 PM EDT [facility] 1 Medication Administration Record [facility] Emergency Department [address] [place] [address] Phone #: ext- [phone] 19:09 Patient: TEDDY LAWSON Sex: M : 1990 Age: 29yWeight: 81.6 kgHeight/Length: 72 inBMI: 24.4ALLERGIES: No Known Drug AllergyDate/Time Medication Administered Medication Ordered Name Value Range Interpretation Code Description Data Cecy rce(s) Supporting Document(s) ID Date Data Source [id number] 08/14/2020 07:17:00 PM EDT [facility] 1 General Instructions [facility] Emergency Department [address] [place] [address] Phone #: ext- [phone] 08/14/2020 19:09 Patient: TEDDY LAWSON Sex: M : 1990 Age: 29y Anxiety reaction. No hyperventilation.INSTRUCTIONS Warnings: GENERAL WARNINGS: Return or contact your physician immediately if your condition worsens or changes unexpectedly, if not improving as expected, or if other problems arise. Understanding of the discharge instructions verbalized by patient. Follow-up with: [facility], , , [address] [place], [address] Follow up in one week. Call for [...] may experience: Dry mouth 2 General Instructions [facility] Emergency Department [address] [place] [address] Phone #: ext- [phone] 08/14/2020 19:09 Patient: TEDDY LAWSON Sex: M : 1990 Age: 29y [...] Also, there are certain 3 General Instructions [facility] Emergency Department [address] [place] [address] Phone #: ext- [phone] 08/14/2020 19:09 Patient: TEDDY LAWSON Sex: M : 1990 Age: 29y techniques that are helpful: o Relaxation o Breathing exercises o Visualization o Biofeedback o MeditationFor more information about this, consult your healthcare provider or go to a local bookstore andrepatito the many books and tapes available on this subject.Follow-up careIf you feel that your anxiety is not responding to self- help measures, contact your healthcare provideror make an appointment with a counselor. You may need short-term psychological counseling andtemporary medicine to help you manage stress.Call [phone] if any of these happen: Trouble breathing [...] and mild pain reliever 4 General Instructions [facility] Emergency Department [address] [place] [address] Phone #: ext- [phone] 08/14/2020 19:09 Patient: TEDDY LAWSON Sex: M : 1990 Age: 29y [id number] [employer] [address] [place] [address]. All rights reserved. This information is not intended as asubstitute for professional medical care. Always follow your healthcare professional's instructions. You have been given the following additional information: Anxiety Reaction(Electronically signed by Pedro Rizo, 08/14/2020 20:15) Name Value Range Interpretation Code Description Data Cecy rce(s) Supporting Document(s) ID Date Data Source [id number] 08/14/2020 07:17:00 PM EDT [facility] 1 Clinical Report - Nurses [facility] Emergency Department [address] [place] [address] Phone #: ext- [phone] 08/14/2020 19:09 Patient: TEDDY LAWSON Sex: M : 1990 Age: 29yTRIAGEHistorian: patient.Acuity: LEVEL 4.Chief Complaint: (wants to be checked out denies any symptoms).No acute distress.No fever, weakness, cough, difficulty breathing or skin rash. Denies muscle aches. --19:08/14/20Alfonso Buck R.N.19:08/14/20. BP: 136/98. MAP: 110. HR: 80. RR: 16. O2 saturation: 98%. Temp: 97.8 F. Pain levelnow: 0/10. --19:08/14/20 Alfonso Bcuk R.N.Weight: 81.6 kg stated. Height/Length: 72 inches [...] no barriers. 2 Clinical Report - Nurses [facility] Emergency Department [address] [place] [address] Phone #: ext- [phone] 08/14/2020 19:09 Patient: TEDDY LAWSON Sex: M : 1990 Age: 29y FALL RISK ASSESSMENT: Fall risk assessment completed. No risk factors identified. SKIN INTEGRITY ASSESSMENT: Skin integrity risk assessment completed. No skin integrity risk identified. --19:30 08/14/20 Alfonso Buck R.N. FAMILY HX: No significant family medical history. --19:53 08/14/20 Pedro Rizo.PHYSICAL BONIUZWSRE41:35 08/14/20. Ambulatory to room.GENERAL / NEURO / [...] He left ambulatory and via taxi. 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 --20:04 08/14/20 Carito Barry R.N. 20:03 08/14/20. BP: 141/93. MAP: 109. HR: 81. RR: 16. O2 saturation: 98%. Temp: 97.9 F. Pain level now: 010. --20:04 08/14/20 Carito Barry R.N.Locked/Released at 08/14/2020 20:04 by Carito Brary R.N. Name Value Range Interpretation Code Description Data Cecy rce(s) Supporting Document(s) ID Date Data Source [id number] 08/14/2020 07:17:00 PM EDT [facility] 1 Clinical Report - Physicians/Mid Levels [facility] Emergency Department [address] [place] [address] Phone #: ext- [phone] 08/14/2020 19:09 Patient: TEDDY LAWSON Sex: M : 1990 Age: 29y [...] alone. 2 Clinical Report - Physicians/Mid Levels [facility] Emergency Department [address] [place] [address] Phone #: ext- [phone] 08/14/2020 19:09 Patient: TEDDY LAWSON Sex: M : 1990 Age: 29yFAMILY [...] patient. 3 Clinical Report - Physicians/Mid Levels [facility] Emergency Department [address] [place] [address] Phone #: ext- [phone] 08/14/2020 19:09 Patient: TEDDY LAWSON Sex: M : 1990 Age: 29y Follow-up with: [facility], , , [address] [place] [address], [id number] Follow up in one week. Call for an appointment.(Electronically signed by Pedro Rizo, 08/14/2020 20:15) Name Value Range Interpretation Code Description Data Cecy rce(s) Supporting Document(s) Procedure Social History Code Duration Value Status Description Data Source(s ) Smoking 07/20/2021 12:00:00 AM EDT Smoker, current status unkn own completed Smoker, current status unknown [facility] ([facility]) Smoking 07/05/2021 12:00:00 AM EDT Smoker, current status unkn own completed Smoker, current status unknown [facility] ([facility]) Smoking 03/29/2021 12:00:00 AM EDT Smoker, current status unkn own completed Smoker, current status unknown [facility] ([facility]) Smoking 02/17/2021 12:00:00 AM EDT Smoker, current status unkn own completed Smoker, current status unknown [facility] ([facility]) Smoking 01/01/2021 12:00:00 AM EST Smoker, current status unkn own completed Smoker, current status unknown [facility] ([facility]) Smoking 11/17/2020 12:00:00 AM EST Smoker, current status unkn own completed Smoker, current status unknown [facility] ([facility]) Smoking 11/02/2020 12:00:00 AM EST Smoker, current status unkn own completed Smoker, current status unknown [facility] ([facility]) Smoking 10/20/2020 12:00:00 AM EST Smoker, current status unkn own completed Smoker, current status unknown [facility] ([facility]) Smoking 09/24/2020 12:00:00 AM EST Smoker, current status unkn own completed Smoker, current status unknown [facility] ([facility]) Smoking 09/02/2020 12:00:00 AM EST Smoker, current status unkn own completed Smoker, current status unknown [facility] ([facility]) Smoking 08/19/2020 12:00:00 AM EDT Smoker, current status unkn own completed Smoker, current status unknown [facility] ([facility]) Smoking 08/18/2020 12:00:00 AM EDT Smoker, current status unkn own completed Smoker, current status unknown [facility] ([facility]) Smoking 07/29/2020 12:00:00 AM EDT Smoker, current status unkn own completed Smoker, current status unknown [facility] ([facility]) Smoking 07/22/2020 12:00:00 AM EDT Smoker, current status unkn own completed Smoker, current status unknown [facility] ([facility]) Smoking 07/10/2020 12:00:00 AM EDT Smoker, current status unkn own completed Smoker, current status unknown [facility] ([facility])
--- OUTSIDE RECORDS SUMMARY | 2021-08-09 18:28 | CCD ---
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, associated with schizophrenia.(Electronically signed by Pedro Rizo 12/18/2020 06:44) Name Value Range Interpretation Code Description Data Cecy rce(s) Supporting Document(s) ID Date Data Source [id number] 12/18/2020 04:31:00 AM EST [facility] Name Value Range Interpretation Code Description Data Cecy rce(s) Supporting Document(s) Ethanol [Moles/volume] in Blood 100.0 MG/DL [facility] ALCOHOL % 0.10 % 0.00 - 0.01 H [facility] ital *FOR MEDICAL PURPOSES ONLY * ID Date Data Source [id number] 12/17/2020 08:23:00 PM EST [facility] Name Value Range Interpretation Code Description Data Cecy rce(s) Supporting Document(s) [facility]IS [facility] ak[facility]ha UR[facility]ALYS[facility] SOURCE R [facility] COLOR yellow NORMAL: Yellow [facility] ospital CLARITY clear NORMAL: Clear [facility] sp[facility] Specific gravity of Urine by Test strip 1.010 1.001 - 1.030 [facility] pH 7 5 - 9 [facility] al Glucose [Mass/volume] in Urine by Test strip NORM NORMAL: Negat [facility] Bilirubin.total [Presence] in Urine by Test strip NEG NORMAL: Negative [facility] Ketones [Presence] in Urine by Test strip NEG NORMAL: Negative [facility] Protein [Mass/volume] in Urine by Test strip NEG NORMAL: Negat [facility] Nitrite [Presence] in Urine by Test strip NEG NORMAL: Negative [facility] BLOOD NEG NORMAL: Negative [facility] Leukocyte esterase [Presence] in Urine by Test strip NEG [place] L: Negative [facility] Urobilinogen [Mass/volume] in Urine by Test strip NOR less alida n 1.0 mg/dL [facility] MICROSCOPIC Not Indicate [facility] ID Date Data Source [id number] 12/17/2020 07:58:00 PM EST [facility] Name Value Range Interpretation Code Description Data Cecy rce(s) Supporting Document(s) DRUG SCREEN URINE [facility] URINE DRUG SCREEN Amphetamine [Presence] in Urine by Screen method NEGATIVE NORMAL: N EGATIVE [facility] BARBITURATES NEGATIVE NORMAL: NEGATIVE [facility] BENZO NEGATIVE NORMAL: NEGATIVE [facility] COCAINE NEGATIVE NORMAL: NEGATIVE [facility] Tetrahydrocannabinol [Presence] in Urine NEGATIVE NORMAL: NEGATIVE [facility] OPIATES NEGATIVE NORMAL: NEGATIVE [facility] Phencyclidine [Presence] in Urine by Screen method NEGATIVE NOR MAL: NEGATIVE [facility] \\BLDo\\URINE DRUG SCR EEN INTERPRETATION\\BLDx\\ THE CUTOFFF LEVELS FOR DETECTION ARE FOLLOWS: AMPHETAMINES 1000 ng/ml BARBITUARATES 200 ng/ml BENZODIAZEPINES 100 ng/ml THC 50 ng/ml PHENCYCLIDINE 25 ng/ml OPIATES 300 ng/ml COCAINE 300 ng/ml ALL POSITIVES ARE CONSIDERED PRESUMPTIVE POSITIVE CONFIRMATION WILL BE PERFORMED AT PHYSICIAN REQUEST. ID Date Data Source [id number] 12/17/2020 07:20:00 PM EST [facility] Name Value Range Interpretation Code Description Data Cecy rce(s) Supporting Document(s) COVID19 Case rprt NOT DETECTED [facility] This lab was ordered by [facility] and reported by [facility]. ID Date Data Source [id number] 12/17/2020 08:23:00 PM EST [facility] Name Value Range Interpretation Code Description Data Cecy rce(s) Supporting Document(s) Thyrotropin [Units/volume] in Serum or Plasma by Detec tion limit <= 0.05 mIU/L 0.47 uIU/mL 0.47 - 5.01 [facility] ID Date Data Source [id number] 12/17/2020 08:10:00 PM EST [facility] Name Value Range Interpretation Code Description Data Cecy rce(s) Supporting Document(s) Ethanol [Moles/volume] in Blood 265.0 MG/DL [facility] ALCOHOL % 0.27 % 0.00 - 0.[address] [facility] ital *FOR MEDICAL PURPOSES ONLY * ID Date Data Source [id number] 12/17/2020 08:10:00 PM EST [facility] Name Value Range Interpretation Code Description Data Cecy rce(s) Supporting Document(s) BASIC METABOLIC PANEL [facility] BASIC METABOLIC PANEL Sodium [Moles/volume] in Serum or Plasma 142 mEq/L 134 - 153 [facility] Potassium [Moles/volume] in Serum or Plasma 3.3 mEq/L 3.6 - 5.0 L [facility] Chloride [Moles/volume] in Serum or Plasma 104 mEq/L 98 - 107 [facility] Carbon dioxide, total [Moles/volume] in Serum or Plasma 28 MEQ/L 22 - 30 [facility] Glucose [Mass/volume] in Serum or Plasma 91 MG/DL 70 - 99 [facility] BUN 5 MG/DL 7 - 21 L [facility] Creatinine [Mass/volume] in Serum or Plasma 0.6 MG/DL 0.7 - 1.5 L [facility] BUN/CREAT 8 8 - 27 [facility] al Calcium [Mass/volume] in Serum or Plasma 9.0 MG/DL 8.4 - 10.2 [facility] Anion gap 3 in Serum or Plasma 10.0 mmol/L 8.0 - 16.0 [facility] AGE [address] [facility] AFR AMER GFR >60 mL/min [facility] NON-AA GFR >60 mL/min [facility] ital Male GFR Inter prentation 20-49 yrs [...] >32 mL/min Normal ID Date Data Source [id number] 12/17/2020 08:10:00 PM [facility] Name Value Range Interpretation Code Description Data Cecy rce(s) Supporting Document(s) SALICYLATE <0.3 mg/dL 2.0 - 20.0 L [facility] p[facility] ID Date Data Source [id number] 12/17/2020 08:10:00 PM [facility] Name Value Range Interpretation Code Description Data Cecy rce(s) Supporting Document(s) Acetaminophen [Presence] in Urine <5.0 UG/ML 0.0 - 30.0 [facility] ID Date Data Source [id number] 12/17/2020 07:48:00 PM [facility] NOT DETECTEDNOT DETECTED{ PROC EDURAL CONTROL VALID KIT LOT # _[id number] 12/17/20.JOVANNA. KIT EXP DATE _[id number] 12/17/20.JOVANNA. NORMAL RANGE IS NOT DETECTEDNEGATIVE RESULTS SHOULD BE TREATED PRESUMPTIVE AND, IF INCONSISTENT WITHCLINICAL SIGNS AND SYMPTOMS OR NECESSARY FOR PATIENT MANAGEMENT, SHOULD BETESTED WITH DIFFERENT AUTHORIZED OR CLEARED MOLECULAR TESTS. NEGATIVE RESULTSDO NOT PRECLUDE SARS-CoV-2 INFECTION AND SHOULD NOT BE USED THE SOLE BASISFOR PATIENT MANAGEMENT DECISIONS. Name Value Range Interpretation Code Description Data [facility](s) Supporting Document(s) ID Date Data Source [id number] 12/17/2020 07:34:00 PM EST [facility] Name Value Range Interpretation Code Description Data [facility](s) Supporting Document(s) CBC W/AUTOMATED DIFF [facility] COMPLETE BLOOD COUNT Leukocytes [#/volume] in Blood by Automated count 5.9 10^3/uL 4.2 - 1 1.0 [facility] Erythrocytes [#/volume] in Blood by Automated count 5.71 10^6/uL 4. 50 - 6.30 [facility] Hemoglobin [Mass/volume] in Blood 18.0 g/dL 14.0 - 16.0 H [facility] Hematocrit [Volume Fraction] of Blood by Automated count 50.9 % 4 1.0 - 51.0 [facility] Erythrocyte mean corpuscular volume [Entitic volume] by Auto mated count 89.1 fL 80.0 - 94.0 [facility] Erythrocyte mean corpuscular hemoglobin [Entitic mass] by Automated count 31.5 pg 27.0 - 34.0 [facility] Erythrocyte mean corpuscular hemoglobin concentration [Mass/volume] by Automated count 35.4 g/dL 31.0 - 36.0 [facility] Erythrocyte distribution width [Ratio] by Automated count 12.6 % 11.5 - 14.8 [facility] Platelets [#/volume] in Blood by Automated count 304 10^3/uL 150 - 45 0 [facility] Platelet mean volume [Entitic volume] in Blood by Automated count 9.2 fL 7.4 - 10.4 [facility] Neutrophils/100 leukocytes in Blood by Automated count 46.7 % 37. 0 - 80.0 [facility] Lymphocytes/100 leukocytes in Blood by Manual count 43.1 % 25.0 - 40.0 H [facility] Monocytes/100 leukocytes in Blood by Automated count 7.3 % 3.0 - 8.0 [facility] Eosinophils/100 leukocytes in Blood by Automated count 1.5 % 0.0 - 7.0 [facility] Basophils/100 leukocytes in Blood by Automated count 0.7 % 0.0 - 2.0 [facility] %IG 0.7 % 0.0 - 0.0 H [facility] al %NRBC 0.0 % 0.0 - 0.0 [facility] al Neutrophils [#/volume] in Blood by Automated count 2.75 10^3/uL 2.00 - 6.90 [facility] Lymphocytes [#/volume] in Blood by Automated count 2.54 10^3/uL 0.60 - 3.40 [facility] Monocytes [#/volume] in Blood by Automated count 0.43 10^3/uL 0.00 - 0.90 [facility] Eosinophils [#/volume] in Blood by Automated count 0.09 10^3/uL 0.00 - 0.70 [facility] Basophils [#/volume] in Blood by Automated count 0.04 10^3/uL 0.00 - 0.20 [facility] #IG 0.04 10^3/uL 0.00 - 0.10 [facility] #NRBC 0.00 10^3/uL 0.00 - 0.00 [facility] MANUAL DIFF NOT INDICATED [facility] RBC MORPH NOT INDICATED [facility] spital ID Date Data Source [id number] 11/19/2020 06:01:00 [place] [address] RESPIRATORY CARE REPORT ==== ---------NAME------- NUMBER SEX AGE ADMIT DISCBritt CRONINAY# F/C JULIAN Navarro [id number] M 30 11/17/20 11/18/20 [id number] XBE E/R DATE OF : 1990 M/R# [id number] #: [phone] TR-03 LOCATION: EMERGENCY DEPT EKG [id number] COMP LETE:11/18/20 01:52 VMT [id number] PHYSICIAN: JUDY Cr Name Value Range Interpretation Code Description Data Cecy rce(s) Supporting Document(s) ID Date Data Source [id number] 11/17/2020 10:05:00 PM EST [facility] 1 OrderSheet [facility] Emergency Department [address] [place] [address] Phone #: ext- [phone] 11/17/2020 22:04 Patient: [...] Acknowledged InitialedMEDICATION/IV/DRIP/FLUID ORDERS 2 OrderSheet [facility] Emergency Department [address] [place] [address] Phone #: ext- [phone] 11/17/2020 22:04 Patient: [...] rce(s) Supporting Document(s) ID Date Data Source [id number] 11/17/2020 10:05:00 PM EST [facility] 1 Medication Reconciliation Report [facility] Emergency Department [address] [place] [address] Phone #: ext- [phone] 11/17/2020 22:04 [id number] Sex: M : 1990 Age: 30yWeight: 83.9 [...] Name Value Range Interpretation Code Description Data [facility] rce(s) Supporting Document(s) ID Date Data Source [id number] 11/17/2020 10:05:00 PM [place] [address] Medication Administration Record [facility] Emergency Department [address] [place] [address] Phone #: [phone] fkg- [phone] 11/17/2020 22:04 Patient: TEDDY LAWSON Sex: M : 1990 Age: 30yWeight: 83.9 kgHeight/Length: 70 inBMI: 26.5ALLERGIES: No Known Drug Allergy Date/Time Medication Administered Medication OrderedGiven ACETAMINOPHEN [PO] Acetaminophen PO 1000 mg03:11/18/2020 Dose: 1000 mg Tablets PO (NOW x1)Shweta Dorado R.N. Name Value Range Interpretation Code Description Data [facility] rce(s) Supporting Document(s) ID Date Data Source [id number] 11/17/2020 10:05:00 PM [facility] 1 General Instructions [facility] Emergency Department [address] [place] [address] Phone #: ext- [phone] 11/17/2020 22:04 Patient: TEDDY LAWSON Sex: M : 1990 Age: 30yAcute bipolar disorder with the current episode being severely manic without psychosis.Recurrent moderate major depressive disorder without psychosis.(Electronically signed by Pedro Rizo 11/18/2020 05:29) Name Value Range Interpretation Code Description Data Cecy rce(s) Supporting Document(s) ID Date Data Source [id number] 11/17/2020 10:05:00 PM EST [facility] 1 Clinical Report - Nurses [facility] Emergency Department [address] [place] [address] Phone #: ext- [phone] 11/17/2020 22:04 Patient: TEDDY LAWSON Sex: M : 1990 Age: 30yTRIAGEArrived by EMS. Historian: patient. ( Patient reports feeling anxious and being depressed today. Deniesany ETOH today, did some marijuana this morning. Patient has a history anxiety/depression. States that 3days ago had a psuedoseizure and was evaluated at [facility]. Denies any SI.).Triage time: 22:03 11/17/2020. Acuity: LEVEL 4.Chief Complaint: ANXIETY.Alert. No acute distress.Onset: today. He has had anxiety and describes feelings of depression. 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 --22:15 11/17/20 Shweta Dorado R.N.22:08 11/17/20. BP: 151/96. HR: 92. RR: 20. O2 saturation: 95%. Temp: 98.0 F. Pain level now 0/10.--22:15 11/17/20 Shweta Dorado R.N.Weight: 83.9 kg. Height/Length: 70 inches. BMI: 26.5. --22:14 11/17/20 Shweta Dorado R.N.MedicationsSEROquel Oral (Tablet 300 mg) 1/2 tablet, daily at bedtime. --22:11 11/17/20 hSweta Dorado R.N.AllergiesNo Known Drug Allergy. --22:11 11/17/20 [...] 2 Clinical Report - Nurses [facility] Emergency Department [address] [place] [address] Phone #: ext- [phone] 11/17/2020 22:04 Patient: TEDDY LAWSON [facility]#: [id number] Sex: M : 1990 Age: 30y feel [...] this time to come back in the [place] [facility] and wait for transfer to another facility. Patient is c ooperative at this time.). --01:13 11/18/20 Shweta Dorado R.N. ( Patient is sleeping at this time.). --01:51 11/18/20 Shweta Dorado R.N. Patient waiting for disposition. ( Patient updated on plan of care, information has been faxed to [facility] for review. Patient is cooperative at this time. Patient keeps stating that he hates technology, "Some day there will be a war on technology".). --02:17 11/18/20 Shweta Dorado R.N. 02:16 11/18/20. BP: 133/89. HR: 98. RR: 16. O2 saturation: 98%. Temp: 98.8 F. Pain level now 0/10. --02:17 11/18/20 hSweta Dorado R.N. The plan of care for this patient has been created. Reassurance given. ( Patient states that he has a dent in his forehead where his metal plate is and it is bothering him, explained to patient that I will make 3 Clinical Report - Nurses [facility] Emergency Department [address] [place] [address] Phone #: ext- [phone] 11/17/2020 22:04 Patient: TEDDY LAWSON Sex: M : 1990 Age: 30y MD aware.). Call light placed in reach. --03:12 11/18/20 Jordin Hitchcock 03:27 11/18/2020 Acetaminophen PO Tablets 1000 mg given. Allergies verified. Information reviewed with patient. --03:27 11/18/20 Shweta Dorado R.N. ( Attempted to call [facility] regarding transfer.). --04:45 11/18/20 Shweta Dorado R.N.DISPOSITION / DISCHARGE Departure time: 05:37 11/18/2020. Condition at departure: unchanged. Transferred to [facility]. Visit overview, summary of care (CCDA), [...] rce(s) Supporting Document(s) ID Date Data Source [id number] 11/17/2020 10:05:00 PM [facility] 1 Clinical Report - Physicians/Mid Levels [facility] Emergency Department [address] [place] [address] Phone #: ext- [phone] 11/17/2020 22:04 Patient: TEDDY LAWSON Sex: M [...] Clinical Report - Physicians/Mid Levels [facility] Emergency Department [address] [place] [address] Phone #: ext- [phone] 11/17/2020 22:04 Patient: TEDDY LAWSON Sex: M [...] # _[id number] 11/18/20.0039.AB . KIT EXP DATE _[id number] 11/18/20.0039.AB . NORMAL RANGE IS NOT DETECTEDNEGATIVE [...] DIFF 3 Clinical Report - Physicians/Mid Levels [facility] Emergency Department [address] [place] [address] Phone #: ext- [phone] 11/17/2020 22:04 Patient: [...] Male GFR Interprentation 20-49 yrs >60 mL/min Uqtrui02-08 yrs >56 mL/min Normal 60-69 yrs >49 mL/min Normal 70-79yrs>42 mL/min Normal 80 and above >35 mL/min Normal Female GFRInterpretation 20-39 yrs >60 mL/min Normal 40-49 yrs >58 mL/minNormal 50-59 yrs >51 mL/min Normal 60-69 yrs >45 mL/min Hbmurl60-06 yrs >39 mL/min Normal 80 and above >32 mL/min Normal 4 Clinical Report - Physicians/Mid Levels [facility] Emergency Department [address] [place] [address] Phone #: ext- [phone] 11/17/2020 22:04 Patient: TEDDY LAWSON Sex: M : 1990 Age: 30y TSH: (LULU: 11/17/2020 22:49) ( [facility] 11/17/2020 23:31) Final results Test Result Flag [...] He is requesting to speak with social science manager/psychiatrist. 00:26 11/18/20. Patient informed that he is waiting for remainder of results and then his case will be brought to [facility]'s attention for psych evaluation. 00:49 11/18/20. Patient agreed to return back to ED. 30 mins ago he decided to leave the ED because he was tired of waiting. Patient is medically cleared. 5 Clinical Report - Physicians/Mid Levels [facility] Emergency Department [address] [place] [address] Phone #: ext- [phone] 11/17/2020 22:04 Patient: TEDDY LAWSON Sex: M : 1990 Age: 30y 05:26 11/18/20. Patient accepted to [facility]. Dr. Villagomez is the accepting physician. Disposition: Benefits, risks and alternatives to transfer explained to patient. Transferred to [facility]. Summary of care (CCDA) pro vided to transfer facility.CLINICAL IMPRESSION Acute bipolar disorder with the current episode being severely manic without psychosis. Recurrent moderate major depressive disorder without psychosis.(Electronically signed by Pedro Rizo 11/18/2020 05:29) Name Value Range Interpretation Code Description Data Cecy rce(s) Supporting Document(s) ID Date Data Source [id number] 11/17/2020 10:05:00 PM [facility] Addenda for TEDDY LAWSON VisitID: [id number] Date: 2:39Faxed chart to [facility] for psych review at 0130(Electronically signed by Justin Maldonado - 11/18/2020 2:39) Name Value Range Interpretation Code Description Data [facility](s) Supporting Document(s) ID Date Data Source [id number] 11/18/2020 12:39:00 AM [facility] NOT DETECTEDNOT DETECTED{ PROC EDURAL CONTROL VALID KIT LOT # _[id number] 11/18/20.0039.AB . KIT EXP DATE _37-27-29 11/18/20.0039.AB . NORMAL RANGE IS NOT DETECTEDNEGATIVE [...] Hospitale(s) Supporting Document(s) ID Date Data Source [id number] 11/17/2020 11:46:00 PM [facility] Name Value Range Interpretation Code Description Data [facility](s) Supporting Document(s) DRUG SCREEN URINE [facility] URINE DRUG SCREEN Amphetamine [Presence] in Urine by Screen method NEGATIVE NORMAL: N EGATIVE [facility] BARBITURATES NEGATIVE NORMAL: NEGATIVE [facility] BENZO NEGATIVE NORMAL: NEGATIVE [facility] COCAINE NEGATIVE NORMAL: NEGATIVE [facility] Tetrahydrocannabinol [Presence] in Urine NEGATIVE NORMAL: NEGATIVE [facility] OPIATES NEGATIVE NORMAL: NEGATIVE [facility] Phencyclidine [Presence] in Urine by Screen method NEGATIVE NOR MAL: NEGATIVE [facility] \\BLDo\\URINE DRUG SCR EEN INTERPRETATION\\BLDx\\ THE CUTOFFF LEVELS FOR DETECTION ARE FOLLOWS: AMPHETAMINES 1000 ng/ml BARBITUARATES 200 ng/ml BENZODIAZEPINES 100 ng/ml THC 50 ng/ml PHENCYCLIDINE 25 ng/ml OPIATES 300 ng/ml COCAINE 300 ng/ml ALL POSITIVES ARE CONSIDERED PRESUMPTIVE POSITIVE CONFIRMATION WILL BE PERFORMED AT PHYSICIAN REQUEST. ID Date Data Source [id number] 11/17/2020 11:31:00 PM [facility] Name Value Range Interpretation Code Description Data Cecy rce(s) Supporting Document(s) SALICYLATE <0.3 mg/dL 2.0 - 20.0 [facility] [facility] ID Date Data Source [id number] 11/17/2020 11:31:00 PM [facility] Name Value Range Interpretation Code Description Data Cecy rce(s) Supporting Document(s) COMPREHENSIVE METABOLIC PANEL [facility] COMPREHENSIVE METABOLIC PANEL Sodium [Moles/volume] in Serum or Plasma 141 mEq/L 134 - 153 [facility] Potassium [Moles/volume] in Serum or Plasma 3.8 mEq/L 3.6 - 5.0 [facility] Chloride [Moles/volume] in Serum or Plasma 104 mEq/L 98 - 107 [facility] Carbon dioxide, total [Moles/volume] in Serum or Plasma 23 MEQ/L 22 - 30 [facility] Glucose [Mass/volume] in Serum or Plasma 116 MG/DL 70 - 99 H [facility] BUN 8 MG/DL 7 - 21 [facility] Creatinine [Mass/volume] in Serum or Plasma 0.6 MG/DL 0.7 - 1.5 L [facility] BUN/CREAT 13 8 - 27 [facility] Protein [Mass/volume] in Serum or Plasma 6.1 G/DL 6.3 - 8.2 L [facility] Albumin [Mass/volume] in Serum or Plasma 4.8 G/DL 3.9 - 5.0 [facility] Globulin [Mass/volume] in Serum by calculation 1.3 GM/DL 2.4 - 3.2 L [facility] A/G RATIO 3.7 0.8 - 2.0 H [facility] Calcium [Mass/volume] in Serum or Plasma 9.0 MG/DL 8.4 - 10.2 [facility] Bilirubin.total [Mass/volume] in Serum or Plasma <0.7 MG/DL 0.2 - 1.3 [facility] Alkaline phosphatase [Enzymatic activity/volume] in Serum or Plasma 95 U/L 38 - 126 [facility] Aspartate aminotransferase [Enzymatic activity/volume] in Serum or Plasma 27 U/L 5 - 40 [facility] Alanine aminotransferase [Enzymatic activity/volume] in Seru m or Plasma 24 U/L 7 - 56 [facility] Anion gap 3 in Serum or Plasma 14.0 mmol/L 8.0 - 16.0 [facility] AGE 30 yrs [facility] NON-AA GFR >60 mL/min [facility] ital AFR AMER GFR >60 mL/min [facility] Male GFR In terprentation 20-49 [...] >32 mL/min Normal ID Date Data Source [id number] 11/17/2020 11:31:00 PM [facility] Name Value Range Interpretation Code Description Data Cecy rce(s) Supporting Document(s) Ethanol [Moles/volume] in Blood <10.0 MG/DL [facility] ALCOHOL % 0.01 % 0.00 - 0.01 [facility] ital *FOR MEDICAL PURPOSES ONLY * ID Date Data Source [id number] 11/17/2020 11:31:[address] [facility] Value Range Interpretation Code Description Data Cecy rce(s) Supporting Document(s) Thyrotropin [Units/volume] in Serum or Plasma by Detec tion limit <= 0.05 mIU/L 1.06 uIU/mL 0.47 - 5.01 [facility] ID Date Data Source [id number] 11/17/2020 10:56:00 PM [facility] Name Value Range Interpretation Code Description Data Cecy rce(s) Supporting Document(s) CBC W/AUTOMATED DIFF [facility] COMPLETE BLOOD COUNT Leukocytes [#/volume] in Blood by Automated count 8.3 10^3/uL 4.2 - 1 1.0 [facility] Erythrocytes [#/volume] in Blood by Automated count 5.28 10^6/uL 4. 50 - 6.30 [facility] Hemoglobin [Mass/volume] in Blood 16.1 g/dL 14.0 - 16.0 H [facility] Hematocrit [Volume Fraction] of Blood by Automated count 46.5 % 4 1.0 - 51.0 [facility] Erythrocyte mean corpuscular volume [Entitic volume] by Auto mated count 88.1 fL 80.0 - 94.0 [facility] Erythrocyte mean corpuscular hemoglobin [Entitic mass] by Automated count 30.5 pg 27.0 - 34.0 [facility] Erythrocyte mean corpuscular hemoglobin concentration [Mass/volume] by Automated count 34.6 g/dL 31.0 - 36.0 [facility] Erythrocyte distribution width [Ratio] by Automated count 12.4 % 11.5 - 14.8 [facility] Platelets [#/volume] in Blood by Automated count 299 10^3/uL 150 - 45 0 [facility] Platelet mean volume [Entitic volume] in Blood by Automated count 9.2 fL 7.4 - 10.4 [facility] Neutrophils/100 leukocytes in Blood by Automated count 68.8 % 37. 0 - 80.0 [facility] Lymphocytes/100 leukocytes in Blood by Manual count 21.8 % 25.0 - 40.0 L [facility] Monocytes/100 leukocytes in Blood by Automated count 7.4 % 3.0 - 8.0 [facility] Eosinophils/100 leukocytes in Blood by Automated count 0.7 % 0.0 - 7.0 [facility] Basophils/100 leukocytes in Blood by Automated count 0.8 % 0.0 - 2.0 [facility] %IG 0.5 % 0.0 - 0.[address] [facility] %NRBC 0.0 % 0.0 - 0.0 [facility] al Neutrophils [#/volume] in Blood by Automated count 5.69 10^3/uL 2.00 - 6.90 [facility] Lymphocytes [#/volume] in Blood by Automated count 1.80 10^3/uL 0.60 - 3.40 [facility] Monocytes [#/volume] in Blood by Automated count 0.61 10^3/uL 0.00 - 0.90 [facility] Eosinophils [#/volume] in Blood by Automated count 0.06 10^3/uL 0.00 - 0.70 [facility] Basophils [#/volume] in Blood by Automated count 0.07 10^3/uL 0.00 - 0.20 [facility] #IG 0.04 10^3/uL 0.00 - 0.10 [facility] #NRBC 0.00 10^3/uL 0.00 - 0.00 [facility] MANUAL DIFF NOT INDICATED [facility] RBC MORPH NOT INDICATED [facility] spital ID Date Data Source [id number] 11/18/2020 01:40:00 AM [facility] Name Value Range Interpretation Code Description Data Cecy rce(s) Supporting Document(s) Acetaminophen [Presence] in Urine <5.0 UG/ML 0.0 - 30.0 [facility] ID Date Data Source [id number] 09/06/2020 07:03:00 PM [facility] 1 OrderSheet [facility] Emergency Department [address] [place] [address] Phone #: ext- [phone] 09/06/2020 19:02 Patient: [...] Chapin R.N.Contrast Physician;(Oxygen?(No)) 2 OrderSheet [facility] Emergency Department [address] [place] [address] Phone #: ext- [phone] 09/06/2020 19:02 Patient: TEDDY LAWSON Sex: M : 1990 Age: 29y(IV?(No)) NOTES: Rectal pain Reason for Study: Abdominal PainMEDICATION/IV/DRIP/FLUID ORDERSOrder Description Priority Entered Acknowledged InitialedGENERAL ORDERSOrder Description Priority Entered Acknowledged Initialed[Electronically signed by Prudencio Cruz (:09/06/2020)][Electronically signed by Peggy Dye R.N. (09/06/2020)][Electronically locked by Peggy Dye R.N. (09/06/2020)] Name Value Range Interpretation Code Description Data Cecy rce(s) Supporting Document(s) ID Date Data Source [id number] 09/06/2020 07:03:00 PM [place] [address] Medication Reconciliation Report [facility] Emergency Department [address] [place] [address] Phone #: ext- [phone] 09/06/2020 19:02 Patient: [...] rce(s) Supporting Document(s) ID Date Data Source [id number] 09/06/2020 07:03:00 PM [facility] 1 Medication Administration Record [facility] Emergency Department [address] [place] [address] Phone #: ext [phone] 19:02 Patient: TEDDY LAWSON Sex: M : 1990 Age: 29yWeight: 90.2 kgHeight/Length: 66 inBMI: 32.1ALLERGIES: No Known Drug AllergyDate/Time Medication Administered Medication Ordered Name Value Range Interpretation Code Description Data Cecy rce(s) Supporting Document(s) ID Date Data Source [id number] 09/06/2020 07:03:00 PM [facility] 1 General Instructions [facility] Emergency Department [address] [place] [address] Phone #: ext [phone] 09/06/2020 19:02 Patient: [...] rce(s) Supporting Document(s) ID Date Data Source [id number] 09/06/2020 07:03:00 PM EST [facility] 1 Clinical Report - Nurses [facility] Emergency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 [Moles/volume] in Serum or Plasma 26 MEQ/L 22 - 30 [facility] Glucose [Mass/volume] in Serum or Plasma 106 MG/DL 65 - 110 [facility] BUN 14 MG/DL 7 - 21 [facility] al Creatinine [Mass/volume] in Serum or Plasma 0.6 MG/DL 0.7 - 1.5 L [facility] BUN/CREAT 23 8 - 27 [facility] al Protein [Mass/volume] in Serum or Plasma 6.6 G/DL 6.3 - 8.2 [facility] Albumin [Mass/volume] in Serum or Plasma 4.3 G/DL 3.9 - 5.0 [facility] Globulin [Mass/volume] in Serum by calculation 2.3 GM/DL 2.4 - 3.2 L [facility] A/G RATIO 1.9 0.8 - 2.0 [facility] Calcium [Mass/volume] in Serum or Plasma 9.3 MG/DL 8.4 - 10.2 [facility] Bilirubin.total [Mass/volume] in Serum or Plasma 0.8 MG/DL 0.2 - 1.3 [facility] Alkaline phosphatase [Enzymatic activity/volume] in Serum or Plasma 108 U/L 38 - 126 [facility] Aspartate aminotransferase [Enzymatic activity/volume] in Serum or Plasma 17 U/L 5 - 40 [facility] Alanine aminotransferase [Enzymatic activity/volume] in Seru m or Plasma 18 U/L 7 - 56 [facility] Anion gap 3 in Serum or Plasma 7.0 mmol/L 8.0 - 16.0 L [facility] AGE 29 yrs [facility] NON-AA GFR >60 mL/min [facility] ital AFR AMER GFR >60 mL/min [facility] spital Male GFR In terprentation 20-49 [...] >32 mL/min Normal ID Date Data Source [id number] 08/29/2020 01:45:00 AM [facility] Name Value Range Interpretation Code Description Data Cecy rce(s) Supporting Document(s) Lactate [Moles/volume] in Serum or Plasma 1.0 MMOL/L 0.2 - 2.2 [facility] ID Date Data Source [id number] 08/29/2020 01:42:00 AM [facility] Name Value Range Interpretation Code Description Data Cecy rce(s) Supporting Document(s) CBC W/AUTOMATED DIFF [facility] COMPLETE BLOOD COUNT Leukocytes [#/volume] in Blood by Automated count 8.4 10^3/uL 4.2 - 1 1.0 [facility] Erythrocytes [#/volume] in Blood by Automated count 4.97 10^6/uL 4. 50 - 6.30 [facility] Hemoglobin [Mass/volume] in Blood 15.1 g/dL 14.0 - 16.0 [facility] Hematocrit [Volume Fraction] of Blood by Automated count 43.8 % 4 1.0 - 51.0 [facility] Erythrocyte mean corpuscular volume [Entitic volume] by Auto mated count 88.1 fL 80.0 - 94.0 [facility] Erythrocyte mean corpuscular hemoglobin [Entitic mass] by Automated count 30.4 pg 27.0 - 34.0 [facility] Erythrocyte mean corpuscular hemoglobin concentration [Mass/volume] by Automated count 34.5 g/dL 31.0 - 36.0 [facility] Erythrocyte distribution width [Ratio] by Automated count 12.6 % 11.5 - 14.8 [facility] Platelets [#/volume] in Blood by Automated count 258 10^3/uL 150 - 45 0 [facility] Platelet mean volume [Entitic volume] in Blood by Automated count 9.9 fL 7.4 - 10.4 [facility] Neutrophils/100 leukocytes in Blood by Automated count 59.4 % 37. 0 - 80.0 [facility] Lymphocytes/100 leukocytes in Blood by Manual count 28.6 % 25.0 - 40.0 [facility] Monocytes/100 leukocytes in Blood by Automated count 8.9 % 3.0 - 8.0 H [facility] Eosinophils/100 leukocytes in Blood by Automated count 2.1 % 0.0 - 7.0 [facility] Basophils/100 leukocytes in Blood by Automated count 0.6 % 0.0 - 2.0 [facility] %IG 0.4 % 0.0 - 0.0 H [facility] al %NRBC 0.0 % 0.0 - 0.0 [facility] al Neutrophils [#/volume] in Blood by Automated count 4.99 10^3/uL 2.00 - 6.90 [facility] Lymphocytes [#/volume] in Blood by Automated count 2.40 10^3/uL 0.60 - 3.40 [facility] Monocytes [#/volume] in Blood by Automated count 0.75 10^3/uL 0.00 - 0.90 [facility] Eosinophils [#/volume] in Blood by Automated count 0.18 10^3/uL 0.00 - 0.70 [facility] Basophils [#/volume] in Blood by Automated count 0.05 10^3/uL 0.00 - 0.20 [facility] #IG 0.03 10^3/uL 0.00 - 0.10 [facility] #NRBC 0.00 10^3/uL 0.00 - 0.00 [facility] ospital MANUAL DIFF NOT INDICATED [facility] RBC MORPH NOT INDICATED [facility] spital ID Date Data Source [id number] 08/29/2020 01:40:00 AM EST [facility] Name Value Range Interpretation Code Description Data Cecy rce(s) Supporting Document(s) DRUG SCREEN URINE [facility] URINE DRUG SCREEN Amphetamine [Presence] in Urine by Screen method NEGATIVE NORMAL: N EGATIVE [facility] BARBITURATES NEGATIVE NORMAL: NEGATIVE [facility] BENZO NEGATIVE NORMAL: NEGATIVE [facility] COCAINE NEGATIVE NORMAL: NEGATIVE [facility] Tetrahydrocannabinol [Presence] in Urine NEGATIVE NORMAL: NEGATIVE [facility] OPIATES NEGATIVE NORMAL: NEGATIVE [facility] Phencyclidine [Presence] in Urine by Screen method NEGATIVE NOR MAL: NEGATIVE [facility] \\BLDo\\URINE DRUG SCR EEN INTERPRETATION\\BLDx\\ THE CUTOFFF LEVELS FOR DETECTION ARE FOLLOWS: AMPHETAMINES 1000 ng/ml BARBITUARATES 200 ng/ml BENZODIAZEPINES 100 ng/ml THC 50 ng/ml PHENCYCLIDINE 25 ng/ml OPIATES 300 ng/ml COCAINE 300 ng/ml ALL POSITIVES ARE CONSIDERED PRESUMPTIVE POSITIVE CONFIRMATION WILL BE PERFORMED AT PHYSICIAN REQUEST. ID Date Data Source [id number] 08/29/2020 01:25:00 AM [facility] Name Value Range Interpretation Code Description Data Cecy rce(s) Supporting Document(s) [facility] UR[facility]ALYS[facility] SOURCE R [facility] COLOR yellow NORMAL: Yellow [facility] ospital CLARITY clear NORMAL: Clear [facility] Specific gravity of Urine by Test strip 1.010 1.001 - 1.030 [facility] pH 6.5 5 - 9 [facility] al Glucose [Mass/volume] in Urine by Test strip NORM NORMAL: Negat delia [facility] Bilirubin.total [Presence] in Urine by Test strip NEG NORMAL: Negative [facility] Ketones [Presence] in Urine by Test strip NEG NORMAL: Negative [facility] Protein [Mass/volume] in Urine by Test strip NEG NORMAL: Negat delia [facility] Nitrite [Presence] in Urine by Test strip NEG NORMAL: Negative [facility] BLOOD NEG NORMAL: Negative [facility] Leukocyte esterase [Presence] in Urine by Test strip NEG TR[place] L: Negative [facility] Urobilinogen [Mass/volume] in Urine by Test strip NOR less alida n 1.0 mg/dL [facility] MICROSCOPIC Not Indicate [facility] ospital ID Date Data Source [id number] 08/19/2020 01:52:52 PM EDT [facility] Vital SignsBlood Pressure: 138/82 Patient History Medical History:Brain TumorSeizure DisorderDepressionHx of kidney stonesBipolarSurgical History:Partial lobectomyFamily History:No known family historySocial/Personal History: Smoking Status: current some day smokerDo you vape? NoCurrent Problems: Normal examination (ICD-V65.5) (HHG98-W86.1)Dental caries/Impaction of teeth (ICD-521.00) (LXA26-B13.9)Contact dermatitis and other eczema, unspecified cause (ICD-692.9) (NDU15-I34.9)Depression (ICD-311) (CEZ74-Y75.9)Seizure Disorder (ICD-780.39) (PSY48-F68.9)Brain Tumor (ICD-191.9) (FXU92-Q71.9)Problem list reviewed during this update.Current Medications: SEROQUEL [...] PM): ; yany (Aug 20 2020 7:29AM): [facility]). CC: none. Reviewed Xrays. Exam: caries detected. [...] Known Allergies (updated 08/19/2020) Orders:Oral Surgery Referral [[id number]] Clinical Visit Summary Declined Name Value Range Interpretation Code Description Data Cecy rce(s) Supporting Document(s) ID Date Data Source [id number] 08/14/2020 07:17:00 PM EDT [facility] 1 Medication Reconciliation Report [facility] Emergency Department [address] [place] [address] Phone #: ext- [phone] 08/14/2020 19:09 Patient: [...] rce(s) Supporting Document(s) ID Date Data Source [id number] 08/14/2020 07:17:00 PM EDT [facility] 1 Medication Administration Record [facility] Emergency Department [address] [place] [address] Phone #: ext- [phone] 19:09 Patient: TEDDY LAWSON Sex: M : 1990 Age: 29yWeight: 81.6 kgHeight/Length: 72 inBMI: 24.4ALLERGIES: No Known Drug AllergyDate/Time Medication Administered Medication Ordered Name Value Range Interpretation Code Description Data Cecy rce(s) Supporting Document(s) ID Date Data Source [id number] 08/14/2020 07:17:00 PM EDT [facility] 1 General Instructions [facility] Emergency Department [address] [place] [address] Phone #: ext- [phone] 08/14/2020 19:09 Patient: TEDDY LAWSON Sex: M : 1990 Age: 29y Anxiety reaction. No hyperventilation.INSTRUCTIONS Warnings: GENERAL WARNINGS: Return or contact your physician immediately if your condition worsens or changes unexpectedly, if not improving as expected, or if other problems arise. Understanding of the discharge instructions verbalized by patient. Follow-up with: [facility], , , [address] [place], [address] Follow up in one week. Call for [...] Dry mouth 2 General Instructions [facility] Emergency Department [address] [place] [address] Phone #: ext- [phone] 08/14/2020 19:09 Patient: [...] are certain 3 General Instructions [facility] Emergency Department [address] [place] [address] Phone #: ext- [phone] 08/14/2020 19:09 Patient: [...] andtemporary medicine to help you manage stress.Call [phone] if any of these happen: Trouble breathing [...] pain reliever 4 General Instructions [facility] Emergency Department [address] [place] [address] Phone #: ext- [phone] 08/14/2020 19:09 Patient: TEDDY LAWSON Sex: M : 1990 Age: 29y [id number] [employer]. [address] [place] [address]. All rights reserved. This information is not intended as asubstitute for professional medical care. Always follow your healthcare professional's instructions. You have been given the following additional information: Anxiety Reaction(Electronically signed by Pedro Rizo, 08/14/2020 20:15) Name Value Range Interpretation Code Description Data Cecy rce(s) Supporting Document(s) ID Date Data Source [id number] 08/14/2020 07:17:00 PM EDT [facility] 1 Clinical Report - Nurses [facility] Emergency Department [address] [place] [address] Phone #: ext- [phone] 08/14/2020 19:09 Patient: [...] 2 Clinical Report - Nurses [facility] Emergency Department [address] [place] [address] Phone #: ext- [phone] 08/14/2020 19:09 Patient: TEDDY LAWSON Sex: M : 1990 Age: 29y FALL RISK ASSESSMENT: Fall risk assessment completed. No risk factors identified. SKIN INTEGRITY ASSESSMENT: Skin integrity risk assessment completed. No skin integrity risk identified. --19:30 08/14/20 Alfonso Buck R.N. FAMILY HX: No significant family medical history. --19:53 08/14/20 Pedro Rizo.PHYSICAL [id number] 08/14/20. Ambulatory to room.GENERAL / NEURO / [...] Patient verbalized understanding. Written instructions provided in Nauruan. The patient was discharged home and unaccompanied at time of discharge. He left ambulatory and via taxi. 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 --20:04 08/14/20 Carito Barry R.N. 20:03 08/14/20. BP: 141/93. MAP: 109. HR: 81. RR: 16. O2 saturation: 98%. Temp: 97.9 F. Pain level now: 010. --20:04 08/14/20 Carito Barry R.N.Locked/Released at 08/14/2020 20:04 by Carito Barry R.N. Name Value Range Interpretation Code Description Data Cecy rce(s) Supporting Document(s) ID Date Data Source [id number] 08/14/2020 07:17:00 PM EDT [facility] 1 Clinical Report - Physicians/Mid Levels [facility] Emergency Department [address] [place] [place] [address] Phone #: ext- [phone] 08/14/2020 19:09 Patient: [...] Clinical Report - Physicians/Mid Levels [facility] Emergency Department [address] [place] [address] Phone #: ext- [phone] 08/14/2020 19:09 Patient: [...] Clinical Report - Physicians/Mid Levels [facility] Emergency Department [address] [place] [address] Phone #: ext- [phone] 08/14/2020 19:09 Patient: TEDDY LAWSON Sex: M : 1990 Age: 29y Follow-up with: [facility], , , [address] [place] [address], [phone] Follow up in one week. Call for an appointment.(Electronically signed by Pedro Rizo, 08/14/2020 20:15) Name Value Range Interpretation Code Description Data Cecy rce(s) Supporting Document(s) Procedure Social History Code Duration Value Status Description Data Source(s ) Smoking 07/20/2021 12:00:00 AM EDT Smoker, current status unkn own completed Smoker, current status unknown [facility] ([facility]) Smoking 07/05/2021 12:00:00 AM EDT Smoker, current status unkn own completed Smoker, current status unknown [facility] ([facility]) Smoking 03/29/2021 12:00:00 AM EDT Smoker, current status unkn own completed Smoker, current status unknown [facility] ([facility]) Smoking 02/17/2021 12:00:00 AM EDT Smoker, current status unkn own completed Smoker, current status unknown [facility] ([facility]) Smoking 01/01/2021 12:00:00 AM EST Smoker, current status unkn own completed Smoker, current status unknown [facility] ([facility]) Smoking 11/17/2020 12:00:00 AM EST Smoker, current status unkn own completed Smoker, current status unknown [facility] ([facility]) Smoking 11/02/2020 12:00:00 AM EST Smoker, current status unkn own completed Smoker, current status unknown [facility] ([facility]) Smoking 10/20/2020 12:00:00 AM EST Smoker, current status unkn own completed Smoker, current status unknown [facility] ([facility]) Smoking 09/24/2020 12:00:00 AM EST Smoker, current status unkn own completed Smoker, current status unknown [facility] ([facility]) Smoking 09/02/2020 12:00:00 AM EST Smoker, current status unkn own completed Smoker, current status unknown [facility] ([facility]) Smoking 08/19/2020 12:00:00 AM EDT Smoker, current status unkn own completed Smoker, current status unknown [facility] ([facility]) Smoking 08/18/2020 12:00:00 AM EDT Smoker, current status unkn own completed Smoker, current status unknown [facility] ([facility]) Smoking 07/29/2020 12:00:00 AM EDT Smoker, current status unkn own completed Smoker, current status unknown [facility] ([facility]) Smoking 07/22/2020 12:00:00 AM EDT Smoker, current status unkn own completed Smoker, current status unknown [facility] ([facility]) Smoking 07/10/2020 12:00:00 AM EDT Smoker, current status unkn own completed Smoker, current status unknown [facility] ([facility])
== END 2021-08-09 22:32 | disposition home or self-care (01) ==
LOC: M ED 15:06
DX: F60.9 Personality disorder, unspecified (principal); R56.9 Unspecified convulsions; F19.10 Other psychoactive substance abuse, uncomplicated; F17.200 Nicotine dependence, unspecified, uncomplicated; Z79.899 Other long term (current) drug therapy

== ENCOUNTER 2021-08-10 23:07 | Emergency (ER) | payer MEDICAID ==
[~2021-08-10] VITALS: Ht 175.3 cm; Wt 82.6 kg
--- OUTSIDE RECORDS SUMMARY | 2021-08-10 23:13 | CCD ---
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 POSITIVE CONFIRMATION WILL BE PERFORMED [facility].COVID-19 CAH: (LULU: 12/17/2020 19:20) ( [facility] 12/17/2020 19:49) Final results Test Result Flag Units (Reference) COVID-19 NOT DETECTED COVID-19 REENTER NOT DETECTED { PROCEDURAL CONTROL VALID KIT LOT # _[id number] 12/17/20.1948.JOVANNA. KIT EXP DATE _[id number] 49/25/21.1948.JOVANNA. NORMAL RANGE IS NOT DETECTEDNEGATIVE RESULTS SHOULD BE TREATEDAS PRESUMPTIVE AND, IF INCONSISTENT WITHCLINICAL SIGNS AND SYMPTOMS OR NECESSARY FOR PATIENT MANAGEMENT, SHOULDBETESTED WITH DIFFERENT AUTHORIZED OR CLEARED MOLECULAR TESTS. NEGATIVE RESULTSDO NOT PRECLUDE [id number] AND SHOULD NOT BE USED THE SOLE BASISFOR PATIENT MANAGEMENT DECISIONS. 6 Clinical Report - Physicians/Mid Levels [facility] Emergency Department [address] [place] [address] Phone #: ext- [phone] 12/17/2020 17:48 Patient: CAMILO LAWSON Sex: M : 1990 Age: 30y.PROGRESS AND PROCEDURESCourse of Care: 18:47 12/17/20. Patient ambulatory without difficulty. No obvious injuries. He denies anyself injury. He currently has no complaints. 20:21 12/17/20. Patient is acting erratic. reporting feeling depressed. 06:36 12/18/20. Patient awake and requesting to go to [facility]. "Send me to [facility] or send me home" Patient's case discussed with ED physician at [facility] who is familiar with the patient. Dr. Sandra agrees to accept to patient to the ED. 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, associated with schizophrenia.(Electronically signed by Pedro Rizo 12/18/2020 06:44) Name Value Range Interpretation Code Description Data Cecy rce(s) Supporting Document(s) ID Date Data Source [id number] 12/18/2020 04:31:00 AM EST [facility] Name Value Range Interpretation Code Description Data Cecy rce(s) Supporting Document(s) Ethanol [Moles/volume] in Blood 100.0 MG/DL [facility] ALCOHOL % 0.10 % 0.00 - 0.01 H [facility] *FOR MEDICAL PURPOSES ONLY * ID Date Data Source [id number] 12/17/2020 08:23:00 PM EST [facility] Name Value Range Interpretation Code Description Data Cecy rce(s) Supporting Document(s) [facility] COLOR yellow NORMAL: Yellow [facility]ital CLARITY clear NORMAL: Clear [facility] Specific gravity of Urine by Test strip 1.010 1.001 - 1.030 [facility] pH 7 5 - 9 [facility] al Glucose [Mass/volume] in Urine by Test strip NORM NORMAL: Negat [facility] Bilirubin.total [Presence] in Urine by Test strip NEG NORMAL: Negative [facility] Ketones [Presence] in Urine by Test strip NEG NORMAL: Negative [facility] Protein [Mass/volume] in Urine by Test strip NEG NORMAL: Negat [facility] Nitrite [Presence] in Urine by Test strip NEG NORMAL: Negative [facility] BLOOD NEG NORMAL: Negative [facility] Leukocyte esterase [Presence] in Urine by Test strip NEG [place] L: Negative [facility] Urobilinogen [Mass/volume] in Urine by Test strip NOR less alida n 1.0 mg/dL [facility] MICROSCOPIC Not Indicate [facility] ID Date Data Source [id number] 12/17/2020 07:58:00 PM [facility] Name Value Range Interpretation Code Description Data Cecy rce(s) Supporting Document(s) DRUG SCREEN URINE [facility] URINE DRUG SCREEN Amphetamine [Presence] in Urine by Screen method NEGATIVE NORMAL: N EGATIVE [facility] BARBITURATES NEGATIVE NORMAL: NEGATIVE [facility] BENZO NEGATIVE NORMAL: NEGATIVE [facility] COCAINE NEGATIVE NORMAL: NEGATIVE [facility] Tetrahydrocannabinol [Presence] in Urine NEGATIVE NORMAL: NEGATIVE [facility] OPIATES NEGATIVE NORMAL: NEGATIVE [facility] Phencyclidine [Presence] in Urine by Screen method NEGATIVE NOR MAL: NEGATIVE [facility] \\BLDo\\URINE DRUG SCR EEN INTERPRETATION\\BLDx\\ THE CUTOFFF LEVELS FOR DETECTION ARE FOLLOWS: AMPHETAMINES 1000 ng/ml BARBITUARATES 200 ng/ml BENZODIAZEPINES 100 ng/ml THC 50 ng/ml PHENCYCLIDINE 25 ng/ml OPIATES 300 ng/ml COCAINE 300 ng/ml ALL POSITIVES ARE CONSIDERED PRESUMPTIVE POSITIVE CONFIRMATION WILL BE PERFORMED AT PHYSICIAN REQUEST. ID Date Data Source [id number] 12/17/2020 07:20:00 PM EST [facility] Name Value Range Interpretation Code Description Data Cecy rce(s) Supporting Document(s) COVID19 Case rprt NOT DETECTED [facility] This lab was ordered by [facility] and reported by [facility]. ID Date Data Source [id number] 12/17/2020 08:23:00 PM EST [facility] Name Value Range Interpretation Code Description Data Cecy rce(s) Supporting Document(s) Thyrotropin [Units/volume] in Serum or Plasma by Detec tion limit <= 0.05 mIU/L 0.47 uIU/mL 0.47 - 5.01 [facility] ID Date Data Source [id number] 12/17/2020 08:10:00 PM EST [facility] Name Value Range Interpretation Code Description Data Cecy rce(s) Supporting Document(s) Ethanol [Moles/volume] in Blood 265.0 MG/DL [facility] ALCOHOL % 0.27 % 0.00 - 0.01 H [facility] ital *FOR MEDICAL PURPOSES ONLY * ID Date Data Source [id number] 12/17/2020 08:10:00 PM EST [facility] Name Value Range Interpretation Code Description Data Cecy rce(s) Supporting Document(s) BASIC METABOLIC PANEL [facility] BASIC METABOLIC PANEL Sodium [Moles/volume] in Serum or Plasma 142 mEq/L 134 - 153 [facility] Potassium [Moles/volume] in Serum or Plasma 3.3 mEq/L 3.6 - 5.0 L [facility] Chloride [Moles/volume] in Serum or Plasma 104 mEq/L 98 - 107 [facility] Carbon dioxide, total [Moles/volume] in Serum or Plasma 28 MEQ/L 22 - 30 [facility] Glucose [Mass/volume] in Serum or Plasma 91 MG/DL 70 - 99 [facility] BUN 5 MG/DL 7 - 21 L [facility] Creatinine [Mass/volume] in Serum or Plasma 0.6 MG/DL 0.7 - 1.5 L [facility] BUN/CREAT 8 8 - 27 [facility] al Calcium [Mass/volume] in Serum or Plasma 9.0 MG/DL 8.4 - 10.2 [facility] Anion gap 3 in Serum or Plasma 10.0 mmol/L 8.0 - 16.0 [facility] AGE 30 yrs [facility] al AFR AMER GFR >60 mL/min [facility] NON-AA GFR >60 mL/min [facility] ital Male GFR Inter prentation 20-49 yrs [...] >32 mL/min Normal ID Date Data Source [id number] 12/17/2020 08:10:00 PM [facility] Name Value Range Interpretation Code Description Data Cecy rce(s) Supporting Document(s) SALICYLATE <0.3 mg/dL 2.0 - 20.0 L [facility] ID Date Data Source [id number] 12/17/2020 08:10:00 PM [facility] Name Value Range Interpretation Code Description Data Cecy rce(s) Supporting Document(s) Acetaminophen [Presence] in Urine <5.0 UG/ML 0.0 - 30.0 [facility] ID Date Data Source [id number] 12/17/2020 07:48:00 PM [facility] NOT DETECTEDNOT DETECTED{ PROC EDURAL CONTROL VALID KIT LOT # _[id number] 12/17/20.JOVANNA. KIT EXP DATE _[id number] 12/17/20.JOVANNA. NORMAL RANGE IS NOT DETECTEDNEGATIVE RESULTS SHOULD BE TREATED PRESUMPTIVE AND, IF INCONSISTENT WITHCLINICAL SIGNS AND SYMPTOMS OR NECESSARY FOR PATIENT MANAGEMENT, SHOULD BETESTED WITH DIFFERENT AUTHORIZED OR CLEARED MOLECULAR TESTS. NEGATIVE RESULTSDO NOT PRECLUDE SARS-CoV-2 INFECTION AND SHOULD NOT BE USED THE SOLE BASISFOR PATIENT MANAGEMENT DECISIONS. Name Value Range Interpretation Code Description Data [facility](s) Supporting Document(s) ID Date Data Source [id number] 12/17/2020 07:34:00 PM EST [facility] Name Value Range Interpretation Code Description Data [facility](s) Supporting Document(s) CBC W/AUTOMATED DIFF [facility] COMPLETE BLOOD COUNT Leukocytes [#/volume] in Blood by Automated count 5.9 10^3/uL 4.2 - 1 1.0 [facility] Erythrocytes [#/volume] in Blood by Automated count 5.71 10^6/uL 4. 50 - 6.30 [facility] Hemoglobin [Mass/volume] in Blood 18.0 g/dL 14.0 - 16.0 H [facility] Hematocrit [Volume Fraction] of Blood by Automated count 50.9 % 4 1.0 - 51.0 [facility] Erythrocyte mean corpuscular volume [Entitic volume] by Auto mated count 89.1 fL 80.0 - 94.0 [facility] Erythrocyte mean corpuscular hemoglobin [Entitic mass] by Automated count 31.5 pg 27.0 - 34.0 [facility] Erythrocyte mean corpuscular hemoglobin concentration [Mass/volume] by Automated count 35.4 g/dL 31.0 - 36.0 [facility] Erythrocyte distribution width [Ratio] by Automated count 12.6 % 11.5 - 14.8 [facility] Platelets [#/volume] in Blood by Automated count 304 10^3/uL 150 - 45 0 [facility] Platelet mean volume [Entitic volume] in Blood by Automated count 9.2 fL 7.4 - 10.4 [facility] Neutrophils/100 leukocytes in Blood by Automated count 46.7 % 37. 0 - 80.0 [facility] Lymphocytes/100 leukocytes in Blood by Manual count 43.1 % 25.0 - 40.0 H [facility] Monocytes/100 leukocytes in Blood by Automated count 7.3 % 3.0 - 8.0 [facility] Eosinophils/100 leukocytes in Blood by Automated count 1.5 % 0.0 - 7.0 [facility] Basophils/100 leukocytes in Blood by Automated count 0.7 % 0.0 - 2.0 [facility] %IG 0.7 % 0.0 - 0.0 H [facility] %NRBC 0.0 % 0.0 - 0.0 [facility] Neutrophils [#/volume] in Blood by Automated count 2.75 10^3/uL 2.00 - 6.90 [facility] Lymphocytes [#/volume] in Blood by Automated count 2.54 10^3/uL 0.60 - 3.40 [facility] Monocytes [#/volume] in Blood by Automated count 0.43 10^3/uL 0.00 - 0.90 [facility] Eosinophils [#/volume] in Blood by Automated count 0.09 10^3/uL 0.00 - 0.70 [facility] Basophils [#/volume] in Blood by Automated count 0.04 10^3/uL 0.00 - 0.20 [facility] #IG 0.04 10^3/uL 0.00 - 0.10 [facility] #NRBC 0.00 10^3/uL 0.00 - 0.00 [facility] MANUAL DIFF NOT INDICATED [facility] RBC MORPH NOT INDICATED [facility] spital ID Date Data Source [id number] 11/19/2020 06:01:00 AM EST [facility] [address] [place] [address] RESPIRATORY CARE REPORT ==== ---------NAME------- NUMBER SEX AGE ADMIT DISCBritt CRONINAY# F/C JULIAN Navarro [id number] 11/17/20 11/18/20 [id number] XBE E/R DATE OF : 1990 M/R# [id number] #: [id number] TR-03 LOCATION: EMERGENCY DEPT EKG [id number] COMP LETE:11/18/20 01:52 [place] [id number] PHYSICIAN: JUDY Cr Name Value Range Interpretation Code Description Data Cecy rce(s) Supporting Document(s) ID Date Data Source [id number] 11/17/2020 10:05:00 PM EST [facility] 1 OrderSheet [facility] Emergency Department [address] [place] [address] Phone #: ext- [phone] 11/17/2020 22:04 Patient: CAMILO LAWSON Sex: M : 1990 Age: 30yWEIGHT:83.9 kg HEIGHT:70 inches BMI:26.5ALLERGIES: No Known Drug AllergyCHIEF COMPLAINT: depressed, anxious, agitated, angryDIAGNOSIS: Depressive disorder, Bipolar disorderLAB ORDERSOrder Description Priority Entered Acknowledged InitialedCBC w Diff STAT 22:11/17/2020 22:32 Juyd Dorado Jack ; Shweta MayerCMP STAT 22:11/17/2020 22:32 Judy Dorado Jack ; Shweta Lawson.WaiTSH STAT 22:11/17/2020 22:32 Judy Dorado Jack ; Shweta Lawson.WaiAcetaminophen STAT 22:11/17/2020 22:32 Lexi Dorado Jack ; Shweta MayerSalicylate Level STAT 22:11/17/2020 22:32 Judy Dorado Jack ; Shweta Lawson.Vira.ETOH STAT 22:11/17/2020 22:32 Judy Dorado Jack ; Shweta MayerDrug Screen-Urine STAT 22:11/17/2020 22:32 Judy Dorado Jack ; Shweta MayerCOVID-19 CAH (Not STAT 23:55 11/17/2020 00:27 11/18/2020ymptomatic as Pedro Rizo ; Shweta Dorado R.N.Defined by CDC)(11/17/2020) (NotFirst Test) (NotHospitalized) (Not) (NotResident inCongregate CareSetting) (NotEmployed inHealthcare Setting)DIAGNOSTIC STUDY ORDERSOrder Desc ription Priority Entered Acknowledged InitialedMEDICATION/IV/DRIP/FLUID ORDERS 2 OrderSheet [facility] Emergency Department [address] [place] [address] Phone #: ext- [phone] 11/17/2020 22:04 Patient: [...] rce(s) Supporting Document(s) ID Date Data Source [id number] 11/17/2020 10:05:00 PM EST [facility] 1 Medication Reconciliation Report [facility] Emergency Department [address] [place] [address] Phone #: ext- [phone] 11/17/2020 22:04 [id number] Sex[facility] M : 1990 Age: 30yWeight: 83.9 [...] rce(s) Supporting Document(s) ID Date Data Source [id number] 11/17/2020 10:05:00 PM [place] [address] Medication Administration Record [facility] Emergency Department [address] [place] [address] Phone #: [phone]- [phone] 11/17/2020 22:04 Patient: CAMILO LAWSON Sex: M : 1990 Age: 30yWeight: 83.9 kgHeight/Length: 70 inBMI: 26.5ALLERGIES: No Known Drug Allergy Date/Time Medication Administered Medication OrderedGiven ACETAMINOPHEN [PO] Acetaminophen PO 1000 mg03:11/18/2020 Dose: 1000 mg Tablets PO (NOW x1)Shweta Dorado R.N. Name Value Range Interpretation Code Description Data Cecy rce(s) Supporting Document(s) ID Date Data Source [id number] 11/17/2020 10:05:00 PM [place] [address] General Instructions [facility] Emergency Department [address] [place] [address] Phone #: ext- [phone] 11/17/2020 22:04 Patient: CAMILO LAWSON Sex: M : 1990 Age: 30yAcute bipolar disorder with the current episode being severely manic without psychosis.Recurrent moderate major depressive disorder without psychosis.(Electronically signed by Pedro Rizo 11/18/2020 05:29) Name Value Range Interpretation Code Description Data Cecy rce(s) Supporting Document(s) ID Date Data Source [id number] 11/17/2020 10:05:00 PM EST [facility] 1 Clinical Report - Nurses [facility] Emergency Department [address] [place] [address] Phone #: ext [phone] 11/17/2020 22:04 Patient: CAMILO LAWSON Sex: M : 1990 Age: 30yTRIAGEArrived by EMS. Historian: patient. ( Patient reports feeling anxious and being depressed today. Deniesany ETOH today, did some marijuana this morning. Patient has a history anxiety/depression. States that 3days ago had a psuedoseizure and was evaluated at [facility]. Denies any SI.).Triage time: 22:03 11/17/2020. Acuity: LEVEL 4.Chief Complaint: ANXIETY.Alert. No acute distress.Onset: today. He has had anxiety and describes feelings of depression. ( Patient keeps repeating thathe hates his family, "I could careless if they of covid", "I wish I never met them".).Treatment BEATER BOSS:None. --22:15 11/17/20 Shweta Dorado R.N.22:08 11/17/20. BP: [...] "Do you 2 Clinical Report - Nurses [facility] Emergency Department [address] [place] [address] Phone #: ext- [phone] 11/17/2020 22:04 Patient: CAMILO LAWSON [facility]#: [id number] Sex: M : 1990 Age: 30y feel [...] this time to come back in the [place] ER and wait for transfer to another facility. Patient is c ooperative at this time.). --01:13 11/18/20 Shweta Dorado R.N. ( Patient is sleeping at this time.). --01:51 11/18/20 Shweta Dorado R.N. Patient waiting for disposition. ( Patient updated on plan of care, information has been faxed to [facility] for review. Patient is cooperative [...] will make 3 Clinical Report - Nurses [facility] Emergency Department [address] [place] [address] Phone #: ext- [phone] 11/17/2020 22:04 Patient: CAMILO LAWSON Sex: M : 1990 Age: 30y MD aware.). Call light placed in reach. --03:12 11/18/20 Jordin Hitchcock 03:27 11/18/2020 Acetaminophen PO Tablets 1000 mg given. Allergies verified. Information reviewed with patient. --03:27 11/18/20 Shweta Dorado R.N. ( Attempted to call [facility] regarding transfer.). --04:45 11/18/20 Shweta Dorado R.N.DISPOSITION / DISCHARGE Departure time: 05:37 11/18/2020. Condition at departure: unchanged. Transferred to [facility]. Visit overview, summary of care (CCDA), [...] rce(s) Supporting Document(s) ID Date Data Source [id number] 11/17/2020 10:05:00 PM [facility] 1 Clinical Report - Physicians/Mid Levels [facility] Emergency Department [address] [place] [address] Phone #: ext- [phone] 11/17/2020 22:04 Patient: CAMILO LAWSON Sex: M [...] Surgery. 2 Clinical Report - Physicians/Mid Levels [facility] Emergency Department [address] [place] [address] Phone #: ext- [phone] 11/17/2020 22:04 [id number] Sex: M : 1990 Age: 30y Medications: [...] # _[id number] 11/18/20.0039.AB . KIT EXP DATE _[id number] 11/18/20.0039.AB . NORMAL RANGE IS NOT DETECTEDNEGATIVE [...] DIFF 3 Clinical Report - Physicians/Mid Levels [facility] Emergency Department [address] [place] [address] Phone #: ext- [phone] 11/17/2020 22:04 Patient: [...] Male GFR Interprentation 20-49 yrs >60 mL/min Sozrca85-82 yrs >56 mL/min Normal 60-69 yrs >49 mL/min Normal 70-79yrs>42 mL/min Normal 80 and above >35 mL/min Normal Female GFRInterpretation 20-39 yrs >60 mL/min Normal 40-49 yrs >58 mL/minNormal 50-59 yrs >51 mL/min Normal 60-69 yrs >45 mL/min Xzlgia81-38 yrs >39 mL/min Normal 80 and above >32 mL/min Normal 4 Clinical Report - Physicians/Mid Levels [facility] Emergency Department [address] [place], [place] [address] Phone #: ext- [phone] 11/17/2020 22:04 Patient: [...] He is requesting to speak with social media specialist/psychiatrist. 00:26 11/18/20. Patient informed that he is waiting for remainder of results and then his case will be brought to [facility]'s attention for psych evaluation. 00:49 11/18/20. Patient agreed to return back to ED. 30 mins ago he decided to leave the ED because he was tired of waiting. Patient is medically cleared. 5 Clinical Report - Physicians/Mid Levels [facility] Emergency Department [address] [place] [address] Phone #: ext- [phone] 11/17/2020 22:04 Patient: CAMILO LAWSON Sex: M : 1990 Age: 30y 05:26 11/18/20. Patient accepted to [facility]. Dr. Villagomez is the accepting physician. Disposition: Benefits, risks and alternatives to transfer explained to patient. Transferred to [facility]. Summary of care (CCDA) pro vided to transfer facility.CLINICAL IMPRESSION Acute bipolar disorder with the current episode being severely manic without psychosis. Recurrent moderate major depressive disorder without psychosis.(Electronically signed by Pedro Rizo 11/18/2020 05:29) Name Value Range Interpretation Code Description Data Cecy rce(s) Supporting Document(s) ID Date Data Source [id number] 11/17/2020 10:05:00 PM [facility] Shahid for CAMILO LAWSON VisitID: [id number] Date: 2:39Faxed chart to [facility] for psych review at 0130(Electronically signed by Justin Maldonado - 11/18/2020 2:39) Name Value Range Interpretation Code Description [facility] Supporting Document[facility]s) ID Date Data Source [id number] 11/18/2020 12:39:00 AM [facility] NOT DETECTEDNOT DETECTED{ PROC EDURAL CONTROL VALID KIT LOT # _[id number] 11/18/20.0039.AB . KIT EXP DATE _[id number] 11/18/20.0039.AB . NORMAL RANGE IS NOT DETECTEDNEGATIVE RESULTS SHOULD BE TREATED PRESUMPTIVE AND, IF INCONSISTENT WITHCLINICAL SIGNS AND SYMPTOMS OR NECESSARY FOR PATIENT MANAGEMENT, SHOULD BETESTED WITH DIFFERENT AUTHORIZED OR CLEARED MOLECULAR TESTS. NEGATIVE RESULTSDO NOT PRECLUDE SARS-CoV-2 INFECTION AND SHOULD NOT BE USED THE SOLE BASISFOR PATIENT MANAGEMENT DECISIONS. Name Value Range Interpretation Code Description Data [facility] rce(s) Supporting Document(s) ID Date Data Source [id number] 11/17/2020 11:46:00 PM [facility] Name Value Range Interpretation Code Description Data [facility](s) Supporting Document(s) DRUG SCREEN URINE [facility] URINE DRUG SCREEN Amphetamine [Presence] in Urine by Screen method NEGATIVE NORMAL: N EGATIVE [facility] BARBITURATES NEGATIVE NORMAL: NEGATIVE [facility] BENZO NEGATIVE NORMAL: NEGATIVE [facility] COCAINE NEGATIVE NORMAL: NEGATIVE [facility] Tetrahydrocannabinol [Presence] in Urine NEGATIVE NORMAL: NEGATIVE [facility] OPIATES NEGATIVE NORMAL: NEGATIVE [facility] Phencyclidine [Presence] in Urine by Screen method NEGATIVE NOR MAL: NEGATIVE [facility] \\BLDo\\URINE DRUG SCR EEN INTERPRETATION\\BLDx\\ THE CUTOFFF LEVELS FOR DETECTION ARE FOLLOWS: AMPHETAMINES 1000 ng/ml BARBITUARATES 200 ng/ml BENZODIAZEPINES 100 ng/ml THC 50 ng/ml PHENCYCLIDINE 25 ng/ml OPIATES 300 ng/ml COCAINE 300 ng/ml ALL POSITIVES ARE CONSIDERED PRESUMPTIVE POSITIVE CONFIRMATION WILL BE PERFORMED AT PHYSICIAN REQUEST. ID Date Data Source [id number] 11/17/2020 11:31:00 PM [facility] Name Value Range Interpretation Code Description Data Cecy rce(s) Supporting Document(s) SALICYLATE <0.3 mg/dL 2.0 - 20.0 L [facility] ID Date Data Source [id number] 11/17/2020 11:31:00 PM [facility] Name Value Range Interpretation Code Description Data Cecy rce(s) Supporting Document(s) COMPREHENSIVE METABOLIC PANEL [facility] COMPREHENSIVE METABOLIC PANEL Sodium [Moles/volume] in Serum or Plasma 141 mEq/L 134 - 153 [facility] Potassium [Moles/volume] in Serum or Plasma 3.8 mEq/L 3.6 - 5.0 [facility] Chloride [Moles/volume] in Serum or Plasma 104 mEq/L 98 - 107 [facility] Carbon dioxide, total [Moles/volume] in Serum or Plasma 23 MEQ/L 22 - 30 [facility] Glucose [Mass/volume] in Serum or Plasma 116 MG/DL 70 - 99 H [facility] BUN 8 MG/DL 7 - 21 [facility] Creatinine [Mass/volume] in Serum or Plasma 0.6 MG/DL 0.7 - 1.5 L [facility] BUN/CREAT 13 8 - 27 [facility] Protein [Mass/volume] in Serum or Plasma 6.1 G/DL 6.3 - 8.2 L [facility] Albumin [Mass/volume] in Serum or Plasma 4.8 G/DL 3.9 - 5.0 [facility] Globulin [Mass/volume] in Serum by calculation 1.3 GM/DL 2.4 - 3.2 L [facility] A/G RATIO 3.7 0.8 - 2.0 H [facility] Calcium [Mass/volume] in Serum or Plasma 9.0 MG/DL 8.4 - 10.2 [facility] Bilirubin.total [Mass/volume] in Serum or Plasma <0.7 MG/DL 0.2 - 1.3 [facility] Alkaline phosphatase [Enzymatic activity/volume] in Serum or Plasma 95 U/L 38 - 126 [facility] Aspartate aminotransferase [Enzymatic activity/volume] in Serum or Plasma 27 U/L 5 - 40 [facility] Alanine aminotransferase [Enzymatic activity/volume] in Seru m or Plasma 24 U/L 7 - 56 [facility] Anion gap 3 in Serum or Plasma 14.0 mmol/L 8.0 - 16.0 [facility] AGE 30 yrs [facility] NON-AA GFR >60 mL/min [facility] AFR AMER GFR >60 mL/min [facility] Male GFR In terprentation [...] >32 mL/min Normal ID Date Data Source [id number] 11/17/2020 11:31:00 PM [facility] Name Value Range Interpretation Code Description Data Cecy rce(s) Supporting Document(s) Ethanol [Moles/volume] in Blood <10.0 MG/DL [facility] ALCOHOL % 0.01 % 0.00 - 0.01 [facility] *FOR MEDICAL PURPOSES ONLY * ID Date Data Source [id number] 11/17/2020 11:31:00 PM [facility] Name Value Range Interpretation Code Description Data Cecy rce(s) Supporting Document(s) Thyrotropin [Units/volume] in Serum or Plasma by Detec tion limit <= 0.05 mIU/L 1.06 uIU/mL 0.47 - 5.01 [facility] ID Date Data Source [id number] 11/17/2020 10:56:00 PM [facility] Value Range Interpretation Code Description Data Cecy rce(s) Supporting Document(s) CBC W/AUTOMATED DIFF [facility] COMPLETE BLOOD COUNT Leukocytes [#/volume] in Blood by Automated count 8.3 10^3/uL 4.2 - 1 1.0 [facility] Erythrocytes [#/volume] in Blood by Automated count 5.28 10^6/uL 4. 50 - 6.30 [facility] Hemoglobin [Mass/volume] in Blood 16.1 g/dL 14.0 - 16.0 H [facility] Hematocrit [Volume Fraction] of Blood by Automated count 46.5 % 4 1.0 - 51.0 [facility] Erythrocyte mean corpuscular volume [Entitic volume] by Auto mated count 88.1 fL 80.0 - 94.0 [facility] Erythrocyte mean corpuscular hemoglobin [Entitic mass] by Automated count 30.5 pg 27.0 - 34.0 [facility] Erythrocyte mean corpuscular hemoglobin concentration [Mass/volume] by Automated count 34.6 g/dL 31.0 - 36.0 [facility] Erythrocyte distribution width [Ratio] by Automated count 12.4 % 11.5 - 14.8 [facility] Platelets [#/volume] in Blood by Automated count 299 10^3/uL 150 - 45 0 [facility] Platelet mean volume [Entitic volume] in Blood by Automated count 9.2 fL 7.4 - 10.4 [facility] Neutrophils/100 leukocytes in Blood by Automated count 68.8 % 37. 0 - 80.0 [facility] Lymphocytes/100 leukocytes in Blood by Manual count 21.8 % 25.0 - 40.0 L [facility] Monocytes/100 leukocytes in Blood by Automated count 7.4 % 3.0 - 8.0 [facility] Eosinophils/100 leukocytes in Blood by Automated count 0.7 % 0.0 - 7.0 [facility] Basophils/100 leukocytes in Blood by Automated count 0.8 % 0.0 - 2.0 [facility] %IG 0.5 % 0.0 - 0.0 [facility] %NRBC 0.0 % 0.0 - 0.0 [facility] al Neutrophils [#/volume] in Blood by Automated count 5.69 10^3/uL 2.00 - 6.90 [facility] Lymphocytes [#/volume] in Blood by Automated count 1.80 10^3/uL 0.60 - 3.40 [facility] Monocytes [#/volume] in Blood by Automated count 0.61 10^3/uL 0.00 - 0.90 [facility] Eosinophils [#/volume] in Blood by Automated count 0.06 10^3/uL 0.00 - 0.70 [facility] Basophils [#/volume] in Blood by Automated count 0.07 10^3/uL 0.00 - 0.20 [facility] #IG 0.04 10^3/uL 0.00 - 0.10 [facility] #NRBC 0.00 10^3/uL 0.00 - 0.00 [facility] MANUAL DIFF NOT INDICATED [facility] RBC MORPH NOT INDICATED [facility] spital ID Date Data Source [id number] 11/18/2020 01:40:00 AM [facility] Name Value Range Interpretation Code Description Data Cecy rce(s) Supporting Document(s) Acetaminophen [Presence] in Urine <5.0 UG/ML 0.0 - 30.0 [facility] ID Date Data Source [id number] 09/06/2020 07:03:00 PM [facility] 1 OrderSheet [facility] Emergency Department [address] [place] [address] Phone #: ext- [phone] 09/06/2020 19:02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 50-59 yrs >51 mL/min Normal 60-69 yrs >45 mL/min Sbbgpz19-45 yrs >39 mL/min Normal 80 and above [...] 8 C linical Report - Physicians/Mid Levels [facility] Emergency Department [address] [place] [address] Phone #: ext- [phone] 08/29/2020 00:12 Patient: [...] NOT INDICATED Lipase: (LULU: 08/29/2020 01:35) ( [facility] 08/29/2020 02:03) Final results Test Result Flag Units (Reference) LIPASE 37 U/L (13 - 60) Lactic Acid: (LULU: 08/29/2020 01:35) ( [facility] 08/29/2020 01:45) Final results Test Result [...] tendencies.). 9 Clinical Report - Physicians/Mid Levels [facility] Emergency Department [address] [place] [address] Phone #: ext- [phone] 08/29/2020 00:12 Patient: [...] rce(s) Supporting Document(s) ID Date Data Source [id number] 08/29/2020 02:56:00 AM EST [address] [place] [address] ---------NAME--------- NUMBER SEX AGE ADMIT DISC. XRAY# F/C TYPE BENJAMÍN Navarro [id number] M 29 08/29/20 [id number] NA E/R DATE OF : 1990 M/R# [id number] #: [id number] TR-03 LOCATION: EMERGENCY DEPT TRANSCRIBED: 08/29/20 2:[address] THORAX W/O CONTRAST 65597 COMPLETED:08/29/20 2:18 RLB [id number] Reason(s): Trauma/Injury PHYSICIAN: ANTHONY BR R A [...] rce(s) Supporting Document(s) ID Date Data Source [id number] 08/29/2020 02:39:00 AM [facility] [address] [place] [address] ---------NAME--------- NUMBER SEX AGE ADMIT DISC. XRAY# F/C TYPE MANTLE CAMILO Navarro [id number] M 29 08/29/20 [id number] NA E/R DATE OF : 1990 M/R# [id number] PH#: [phone] TR-03 LOCATION: EMERGENCY DEPT TRANSCRIBED: 08/29/20 2:[address] ABD //T// PELV W/O ORAL W/[place] [address] COMPLETED:08/29/20 2:18 RLB [id number] Reason(s): Trauma/Injury PHYSICIAN: ANTHONY GODINEZ======== R A [...] rce(s) Supporting Document(s) ID Date Data Source [id number] 08/29/2020 02:37:[address] [address] ---------NAME--------- NUMBER SEX AGE ADMIT DISC. XRAY# F/C TYPE MANTLE CAMILO D [id number] M 29 08/29/20 [id number] NA E/R DATE OF : 1990 M/R# [id number] #: [id number] TR-03 LOCATION: EMERGENCY DEPT TRANSCRIBED: 08/29/20 2:[address] NECK W/O CONTRAST [id number] COMPLETED:08/29/20 2:18 RLB [id number] Reason(s): Trauma/Injury PHYSICIAN: ANTHONY BR R A [...] rce(s) Supporting Document(s) ID Date Data Source [id number] 08/29/2020 02:02:00 AM [facility] Name Value Range Interpretation Code Description Data Cecy rce(s) Supporting Document(s) Lipase [Enzymatic activity/volume] in Serum or Plasma 37 U/L 13 - 60 [facility] ID Date Data Source [id number] 08/29/2020 02:02:00 AM [facility] Name Value Range Interpretation Code Description Data Cecy rce(s) Supporting Document(s) COMPREHENSIVE METABOLIC PANEL [facility] COMPREHENSIVE METABOLIC PANEL Sodium [Moles/volume] in Serum or Plasma 136 mEq/L 134 - 153 [facility] Potassium [Moles/volume] in Serum or Plasma 3.8 mEq/L 3.6 - 5.0 [facility] Chloride [Moles/volume] in Serum or Plasma 103 mEq/L 98 - 107 [facility] Carbon dioxide, total [Moles/volume] in Serum or Plasma 26 MEQ/L 22 - 30 [facility] Glucose [Mass/volume] in Serum or Plasma 106 MG/DL 65 - 110 [facility] BUN 14 MG/DL 7 - 21 [facility] al Creatinine [Mass/volume] in Serum or Plasma 0.6 MG/DL 0.7 - 1.5 L [facility] BUN/CREAT 23 8 - 27 [facility] Protein [Mass/volume] in Serum or Plasma 6.6 G/DL 6.3 - 8.2 [facility] Albumin [Mass/volume] in Serum or Plasma 4.3 G/DL 3.9 - 5.0 [facility] Globulin [Mass/volume] in Serum by calculation 2.3 GM/DL 2.4 - 3.2 L [facility] A/G RATIO 1.9 0.8 - 2.0 [facility] Calcium [Mass/volume] in Serum or Plasma 9.3 MG/DL 8.4 - 10.2 [facility] Bilirubin.total [Mass/volume] in Serum or Plasma 0.8 MG/DL 0.2 - 1.3 [facility] Alkaline phosphatase [Enzymatic activity/volume] in Serum or Plasma 108 U/L 38 - 126 [facility] Aspartate aminotransferase [Enzymatic activity/volume] in Serum or Plasma 17 U/L 5 - 40 [facility] Alanine aminotransferase [Enzymatic activity/volume] in Seru m or Plasma 18 U/L 7 - 56 [facility] Anion gap 3 in Serum or Plasma 7.0 mmol/L 8.0 - 16.0 L [facility] AGE 29 yrs [facility] NON-AA GFR >60 mL/min [facility] AFR AMER GFR >60 mL/min [facility] Male GFR In terprentation [...] >32 mL/min Normal ID Date Data Source [id number] 08/29/2020 01:45:00 AM [facility] Name Value Range Interpretation Code Description Data Cecy rce(s) Supporting Document(s) Lactate [Moles/volume] in Serum or Plasma 1.0 MMOL/L 0.2 - 2.2 [facility] ID Date Data Source [id number] 08/29/2020 01:42:00 AM [facility] Name Value Range Interpretation Code Description Data Cecy rce(s) Supporting Document(s) CBC W/AUTOMATED DIFF [facility] COMPLETE BLOOD COUNT Leukocytes [#/volume] in Blood by Automated count 8.4 10^3/uL 4.2 - 1 1.0 [facility] Erythrocytes [#/volume] in Blood by Automated count 4.97 10^6/uL 4. 50 - 6.30 [facility] Hemoglobin [Mass/volume] in Blood 15.1 g/dL 14.0 - 16.0 [facility] Hematocrit [Volume Fraction] of Blood by Automated count 43.8 % 4 1.0 - 51.0 [facility] Erythrocyte mean corpuscular volume [Entitic volume] by Auto mated count 88.1 fL 80.0 - 94.0 [facility] Erythrocyte mean corpuscular hemoglobin [Entitic mass] by Automated count 30.4 pg 27.0 - 34.0 [facility] Erythrocyte mean corpuscular hemoglobin concentration [Mass/volume] by Automated count 34.5 g/dL 31.0 - 36.0 [facility] Erythrocyte distribution width [Ratio] by Automated count 12.6 % 11.5 - 14.8 [facility] Platelets [#/volume] in Blood by Automated count 258 10^3/uL 150 - 45 0 [facility] Platelet mean volume [Entitic volume] in Blood by Automated count 9.9 fL 7.4 - 10.4 [facility] Neutrophils/100 leukocytes in Blood by Automated count 59.4 % 37. 0 - 80.0 [facility] Lymphocytes/100 leukocytes in Blood by Manual count 28.6 % 25.0 - 40.0 [facility] Monocytes/100 leukocytes in Blood by Automated count 8.9 % 3.0 - 8.0 H [facility] Eosinophils/100 leukocytes in Blood by Automated count 2.1 % 0.0 - 7.0 [facility] Basophils/100 leukocytes in Blood by Automated count 0.6 % 0.0 - 2.0 [facility] %IG 0.4 % 0.0 - 0.0 [facility] %NRBC 0.0 % 0.0 - 0.0 [facility] al Neutrophils [#/volume] in Blood by Automated count 4.99 10^3/uL 2.00 - 6.90 [facility] Lymphocytes [#/volume] in Blood by Automated count 2.40 10^3/uL 0.60 - 3.40 [facility] Monocytes [#/volume] in Blood by Automated count 0.75 10^3/uL 0.00 - 0.90 [facility] Eosinophils [#/volume] in Blood by Automated count 0.18 10^3/uL 0.00 - 0.70 [facility] Basophils [#/volume] in Blood by Automated count 0.05 10^3/uL 0.00 - 0.20 [facility] #IG 0.03 10^3/uL 0.00 - 0.10 [facility] #NRBC 0.00 10^3/uL 0.00 - 0.00 [facility] ospital MANUAL DIFF NOT INDICATED [facility] RBC MORPH NOT INDICATED [facility] ID Date Data Source [id number] 08/29/2020 01:40:00 AM EST [facility] Name Value Range Interpretation Code Description Data Cecy rce(s) Supporting Document(s) DRUG SCREEN URINE [facility] URINE DRUG SCREEN Amphetamine [Presence] in Urine by Screen method NEGATIVE NORMAL: N EGATIVE [facility] BARBITURATES NEGATIVE NORMAL: NEGATIVE [facility] BENZO NEGATIVE NORMAL: NEGATIVE [facility] COCAINE NEGATIVE NORMAL: NEGATIVE [facility] Tetrahydrocannabinol [Presence] in Urine NEGATIVE NORMAL: NEGATIVE [facility] OPIATES NEGATIVE NORMAL: NEGATIVE [facility] Phencyclidine [Presence] in Urine by Screen method NEGATIVE NOR MAL: NEGATIVE [facility] \\BLDo\\URINE DRUG SCR EEN INTERPRETATION\\BLDx\\ THE CUTOFFF LEVELS FOR DETECTION ARE FOLLOWS: AMPHETAMINES 1000 ng/ml BARBITUARATES 200 ng/ml BENZODIAZEPINES 100 ng/ml THC 50 ng/ml PHENCYCLIDINE 25 ng/ml OPIATES 300 ng/ml COCAINE 300 ng/ml ALL POSITIVES ARE CONSIDERED PRESUMPTIVE POSITIVE CONFIRMATION WILL BE PERFORMED AT PHYSICIAN REQUEST. ID Date Data Source [id number] 08/29/2020 01:25:00 AM [facility] Name Value Range Interpretation Code Description Data Cecy rce(s) Supporting Document(s) [facility] COL[facility] yellow NORMAL: Yellow [facility] CLARITY clear NORMAL: Clear [facility] Specific gravity of Urine by Test strip 1.010 1.001 - 1.030 [facility] pH 6.5 5 - 9 [facility] al Glucose [Mass/volume] in Urine by Test strip NORM NORMAL: Negat delia [facility] Bilirubin.total [Presence] in Urine by Test strip NEG NORMAL: Negative [facility] Ketones [Presence] in Urine by Test strip NEG NORMAL: Negative [facility] Protein [Mass/volume] in Urine by Test strip NEG NORMAL: Negat delia [facility] Nitrite [Presence] in Urine by Test strip NEG NORMAL: Negative [facility] BLOOD NEG NORMAL: Negative [facility] Leukocyte esterase [Presence] in Urine by Test strip NEG [place] L: Negative [facility] Urobilinogen [Mass/volume] in Urine by Test strip NOR less alida n 1.0 mg/dL [facility] MICROSCOPIC Not Indicate [facility] ospital ID Date Data Source [id number] 08/19/2020 01:52:52 PM EDT [facility] Vital SignsBlood Pressure: 138/82 Patient History Medical History:Brain TumorSeizure DisorderDepressionHx of kidney stonesBipolarSurgical History:Partial lobectomyFamily History:No known family historySocial/Personal History: Smoking Status: current some day smokerDo you vape? NoCurrent Problems: Normal examination (ICD-V65.5) (ZHS59-H88.1)Dental caries/Impaction of teeth (ICD-521.00) (FBJ87-N54.9)Contact dermatitis and other eczema, unspecified cause (ICD-692.9) (BQG89-Y96.9)Depression (ICD-311) (VZC03-I03.9)Seizure Disorder (ICD-780.39) (EAK07-M63.9)Brain Tumor (ICD-191.9) (DCD66-S47.9)Problem list reviewed during this update.Current Medications: SEROQUEL [...] PM): ; yany (Aug 20 2020 7:29AM): Karyn(-). CC: none. Reviewed Xrays. Exam: caries detected. [...] Known Allergies (updated 08/19/2020) Orders:Oral Surgery Referral [[id number]] Clinical Visit Summary Declined Name Value Range Interpretation Code Description Data Cecy rce(s) Supporting Document(s) ID Date Data Source [id number] 08/14/2020 07:17:00 PM EDT [facility] 1 Medication Reconciliation Report [facility] Emergency Department [address] [place] [address] Phone #: ext- [phone] 08/14/2020 19:09 Patient: [...] rce(s) Supporting Document(s) ID Date Data Source [id number] 08/14/2020 07:17:00 PM EDT [facility] 1 Medication Administration Record [facility] Emergency Department [address] [place] [address] Phone #: ext- [phone] 19:09 Patient: CAMILO LAWSON Sex: M : 1990 Age: 29yWeight: 81.6 kgHeight/Length: 72 inBMI: 24.4ALLERGIES: No Known Drug AllergyDate/Time Medication Administered Medication Ordered Name Value Range Interpretation Code Description Data Cecy rce(s) Supporting Document(s) ID Date Data Source [id number] 08/14/2020 07:17:00 PM EDT [facility] 1 General Instructions [facility] Emergency Department [address] [place] [address] Phone #: ext- [phone] 08/14/2020 19:09 Patient: CAMILO LAWSON Sex: M : 1990 Age: 29y Anxiety reaction. No hyperventilation.INSTRUCTIONS Warnings: GENERAL WARNINGS: Return or contact your physician immediately if your condition worsens or changes unexpectedly, if not improving as expected, or if other problems arise. Understanding of the discharge instructions verbalized by patient. Follow-up with: [facility], , , [address] [place], [address] Follow up in one week. Call for [...] may experience: Dry mouth 2 General Instructions [facility] Emergency Department [address] [place] [address] Phone #: ext- [phone] 08/14/2020 19:09 Patient: [...] Also, there are certain 3 General Instructions [facility] Emergency Department [address] [place] [address] Phone #: ext- [phone] 08/14/2020 19:09 Patient: [...] andtemporary medicine to help you manage stress.Call [phone] if any of these happen: Trouble breathing [...] and mild pain reliever 4 General Instructions [facility] Emergency Department [address] [place], [place] [id number] Phone #: ext- [phone] 08/14/2020 19:09 Patient: CAMILO LAWSON Sex: M : 1990 Age: 29y [id number] [employer]. [address] [place] [address]. All rights reserved. This information is not intended as asubstitute for professional medical care. Always follow your healthcare professional's instructions. You have been given the following additional information: Anxiety Reaction(Electronically signed by Pedro Rizo, 08/14/2020 20:15) Name Value Range Interpretation Code Description Data Cecy rce(s) Supporting Document(s) ID Date Data Source [id number] 08/14/2020 07:17:00 PM EDT [facility] 1 Clinical Report - Nurses [facility] Emergency Department [address] [place] [address] Phone #: ext- [phone] 08/14/2020 19:09 Patient: [...] no barriers. 2 Clinical Report - Nurses [facility] Emergency Department [address] [place] [address] Phone #: ext- [phone] 08/14/2020 19:09 Patient: CAMILO LAWSON Sex: M : 1990 Age: 29y FALL RISK ASSESSMENT: Fall risk assessment completed. No risk factors identified. SKIN INTEGRITY ASSESSMENT: Skin integrity risk assessment completed. No skin integrity risk identified. --19:30 08/14/20 Alfonso Buck R.N. FAMILY HX: No significant family medical history. --19:53 08/14/20 Pedro Rizo.PHYSICAL CILVCPAPXT98:35 08/14/20. Ambulatory to room.GENERAL / NEURO / [...] Patient verbalized understanding. Written instructions provided in [place]. The patient was discharged home and unaccompanied at time of discharge. He left ambulatory and via taxi. 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 --20:04 08/14/20 Carito Barry R.N. 20:03 08/14/20. BP: 141/93. MAP: 109. HR: 81. RR: 16. O2 saturation: 98%. Temp: 97.9 F. Pain level now: 010. --20:04 08/14/20 Carito Barry R.N.Locked/Released at 08/14/2020 20:04 by Carito Barry R.N. Name Value Range Interpretation Code Description Data Cecy rce(s) Supporting Document(s) ID Date Data Source [id number] 08/14/2020 07:17:00 PM EDT [facility] 1 Clinical Report - Physicians/Mid Levels [facility] Emergency Department [address] [place] [address] Phone #: ext- [phone] 08/14/2020 19:09 Patient: [...] alone. 2 Clinical Report - Physicians/Mid Levels [facility] Emergency Department [address] [place] [address] Phone #: ext- [phone] 08/14/2020 19:09 Patient: CAMILO LAWSON Sex: M [...] patient. 3 Clinical Report - Physicians/Mid Levels [facility] Emergency Department [address] [place] [address] Phone #: ext- [phone] 08/14/2020 19:09 Patient: CAMILO LAWSON Sex: M : 1990 Age: 29y Follow-up with: [facility], , , [address] [place], [address] Follow up in one week. Call for an appointment.(Electronically signed by Pedro Rizo, 08/14/2020 20:15) Name Value Range Interpretation Code Description Data Cecy rce(s) Supporting Document(s) Procedure Social History Code Duration Value Status Description Data Source(s ) Smoking 07/20/2021 12:00:00 AM EDT Smoker, current status unkn own completed Smoker, current status unknown [facility]) Smoking 07/05/2021 12:00:00 AM EDT Smoker, current status unkn own completed Smoker, current status unknown [facility] ([facility]) Smoking 03/29/2021 12:00:00 AM EDT Smoker, current status unkn own completed Smoker, current status unknown [facility] ([facility]) Smoking 02/17/2021 12:00:00 AM EDT Smoker, current status unkn own completed Smoker, current status unknown [facility] ([facility]) Smoking 01/01/2021 12:00:00 AM EST Smoker, current status unkn own completed Smoker, current status unknown [facility] ([facility]) Smoking 11/17/2020 12:00:00 AM EST Smoker, current status unkn own completed Smoker, current status unknown [facility] ([facility]) Smoking 11/02/2020 12:00:00 AM EST Smoker, current status unkn own completed Smoker, current status unknown [facility] ([facility]) Smoking 10/20/2020 12:00:00 AM EST Smoker, current status unkn own completed Smoker, current status unknown [facility] ([facility]) Smoking 09/24/2020 12:00:00 AM EST Smoker, current status unkn own completed Smoker, current status unknown [facility] ([facility]) Smoking 09/02/2020 12:00:00 AM EST Smoker, current status unkn own completed Smoker, current status unknown [facility] ([facility]) Smoking 08/19/2020 12:00:00 AM EDT Smoker, current status unkn own completed Smoker, current status unknown [facility] ([facility]) Smoking 08/18/2020 12:00:00 AM EDT Smoker, current status unkn own completed Smoker, current status unknown [facility] ([facility]) Smoking 07/29/2020 12:00:00 AM EDT Smoker, current status unkn own completed Smoker, current status unknown [facility] ([facility]) Smoking 07/22/2020 12:00:00 AM EDT Smoker, current status unkn own completed Smoker, current status unknown [facility] ([facility]) Smoking 07/10/2020 12:00:00 AM EDT Smoker, current status unkn own completed Smoker, current status unknown [facility] ([facility])
[2021-08-10 23:35] LABS: HEMATOCRIT 45.1 % (42.0-52.0); HEMOGLOBIN 15.3 g/dl (13.5-17.5); MEAN CORPUSCULAR HEMOGLOBIN 31.1 pg (27.0-33.0); MEAN CORPUSCULAR HGB CONC 33.9 g/dl (32.0-36.5); MEAN CORPUSCULAR VOLUME 91.7 fl (80.0-96.0); PLATELET COUNT, AUTOMATED 288 10^3/uL (150-450); RED BLOOD COUNT 4.92 10^6/uL (4.30-6.10); WHITE BLOOD COUNT 11.5 10^3/uL (4.0-10.0)
[2021-08-11 00:04] LABS: AMPHETAMINES LEVEL URINE NEGATIVE (NEGATIVE); BARBITURATES URINE NEGATIVE (NEGATIVE); BENZODIAZEPINES URINE NEGATIVE (NEGATIVE); CANNABINOIDS URINE NEGATIVE (NEGATIVE); COCAINE METABOLITE URINE NEGATIVE (NEGATIVE); METHADONE URINE NEGATIVE (NEGATIVE); OPIATES URINE NEGATIVE (NEGATIVE); PHENCYCLIDINE URINE NEGATIVE (NEGATIVE)
[2021-08-11 00:10] LABS: ACETAMINOPHEN LEVEL < 2.0 UG/ML (10.0-30.0); ALBUMIN 4.1 GM/DL (3.2-5.2); ALT/SGPT 36 U/L (12-78); BILIRUBIN,DIRECT 0.2 MG/DL (0.0-0.2); BILIRUBIN,TOTAL 0.8 MG/DL (0.2-1.0); BLOOD UREA NITROGEN 5 MG/DL (7-18); CALCIUM LEVEL 8.7 MG/DL (8.5-10.1); CARBON DIOXIDE LEVEL 28 MEQ/L (21-32); CHLORIDE LEVEL 110 MEQ/L (98-107); CREATININE FOR GFR 0.79 MG/DL (0.70-1.30); ETHYL ALCOHOL (ETHANOL) 0.137 % (0.000-0.010); GLOMERULAR FILTRATION RATE > 60.0 (>60); GLUCOSE, FASTING 89 MG/DL (70-100); POTASSIUM SERUM 3.9 MEQ/L (3.5-5.1); SALICYLATE LEVEL < 1.7 MG/DL (5.0-30.0); SODIUM LEVEL 143 MEQ/L (136-145); TOTAL PROTEIN 7.4 GM/DL (6.4-8.2)
--- OUTSIDE RECORDS SUMMARY | 2021-08-11 05:43 | CCD ---
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, associated with schizophrenia.(Electronically signed by Pedro Rizo 12/18/2020 06:44) Name Value Range Interpretation Code Description Data Cecy rce(s) Supporting Document(s) ID Date Data Source [id number] 12/18/2020 04:31:00 AM EST [facility] Name Value Range Interpretation Code Description Data Cecy rce(s) Supporting Document(s) Ethanol [Moles/volume] in Blood 100.0 MG/DL [facility] ALCOHOL % 0.10 % 0.00 - 0.01 H [facility] *FOR MEDICAL PURPOSES ONLY * ID Date Data Source [id number] 12/17/2020 08:23:00 PM EST [facility] Name Value Range Interpretation Code Description Data Cecy rce(s) Supporting Document(s) [facility] COL[facility] yellow NORMAL: Yellow [facility] ospital CLARITY clear NORMAL: Clear [facility] Specific gravity of Urine by Test strip 1.010 1.001 - 1.030 [facility] pH 7 5 - 9 [facility] al Glucose [Mass/volume] in Urine by Test strip NORM NORMAL: Negat [facility] Bilirubin.total [Presence] in Urine by Test strip NEG NORMAL: Negative [facility] Ketones [Presence] in Urine by Test strip NEG NORMAL: Negative [facility] Protein [Mass/volume] in Urine by Test strip NEG NORMAL: Negat [facility] Nitrite [Presence] in Urine by Test strip NEG NORMAL: Negative [facility] BLOOD NEG NORMAL: Negative [facility] Leukocyte esterase [Presence] in Urine by Test strip NEG TR[place] L: Negative [facility] Urobilinogen [Mass/volume] in Urine by Test strip NOR less alida n 1.0 mg/dL [facility] MICROSCOPIC Not Indicate [facility] ID Date Data Source [id number] 12/17/2020 07:58:00 PM [facility] Name Value Range Interpretation Code Description Data Cecy rce(s) Supporting Document(s) DRUG SCREEN URINE [facility] URINE DRUG SCREEN Amphetamine [Presence] in Urine by Screen method NEGATIVE NORMAL: N EGATIVE [facility] BARBITURATES NEGATIVE NORMAL: NEGATIVE [facility] BENZO NEGATIVE NORMAL: NEGATIVE [facility] COCAINE NEGATIVE NORMAL: NEGATIVE [facility] Tetrahydrocannabinol [Presence] in Urine NEGATIVE NORMAL: NEGATIVE [facility] OPIATES NEGATIVE NORMAL: NEGATIVE [facility] Phencyclidine [Presence] in Urine by Screen method NEGATIVE NOR MAL: NEGATIVE [facility] \\BLDo\\URINE DRUG SCR EEN INTERPRETATION\\BLDx\\ THE CUTOFFF LEVELS FOR DETECTION ARE FOLLOWS: AMPHETAMINES 1000 ng/ml BARBITUARATES 200 ng/ml BENZODIAZEPINES 100 ng/ml THC 50 ng/ml PHENCYCLIDINE 25 ng/ml OPIATES 300 ng/ml COCAINE 300 ng/ml ALL POSITIVES ARE CONSIDERED PRESUMPTIVE POSITIVE CONFIRMATION WILL BE PERFORMED AT PHYSICIAN REQUEST. ID Date Data Source [id number] 12/17/2020 07:20:00 PM EST [facility] Name Value Range Interpretation Code Description Data Cecy rce(s) Supporting Document(s) COVID19 Case rprt NOT DETECTED [facility] This lab was ordered by [facility] and reported by [facility]. ID Date Data Source [id number] 12/17/2020 08:23:00 PM EST [facility] Name Value Range Interpretation Code Description Data Cecy rce(s) Supporting Document(s) Thyrotropin [Units/volume] in Serum or Plasma by Detec tion limit <= 0.05 mIU/L 0.47 uIU/mL 0.47 - 5.01 [facility] ID Date Data Source [id number] 12/17/2020 08:10:00 PM EST [facility] Name Value Range Interpretation Code Description Data Cecy rce(s) Supporting Document(s) Ethanol [Moles/volume] in Blood 265.0 MG/DL [facility] ALCOHOL % 0.27 % 0.00 - 0.01 H [facility] *FOR MEDICAL PURPOSES ONLY * ID Date Data Source [id number] 12/17/2020 08:10:00 PM EST [facility] Name Value Range Interpretation Code Description Data Cecy rce(s) Supporting Document(s) BASIC METABOLIC PANEL [facility] BASIC METABOLIC PANEL Sodium [Moles/volume] in Serum or Plasma 142 mEq/L 134 - 153 [facility] Potassium [Moles/volume] in Serum or Plasma 3.3 mEq/L 3.6 - 5.0 L [facility] Chloride [Moles/volume] in Serum or Plasma 104 mEq/L 98 - 107 [facility] Carbon dioxide, total [Moles/volume] in Serum or Plasma 28 MEQ/L 22 - 30 [facility] Glucose [Mass/volume] in Serum or Plasma 91 MG/DL 70 - 99 [facility] BUN 5 MG/DL 7 - 21 [facility] Creatinine [Mass/volume] in Serum or Plasma 0.6 MG/DL 0.7 - 1.5 L [facility] BUN/CREAT 8 8 - 27 [facility] Calcium [Mass/volume] in Serum or Plasma 9.0 MG/DL 8.4 - 10.2 [facility] Anion gap 3 in Serum or Plasma 10.0 mmol/L 8.0 - 16.0 [facility] AGE 30 yrs [facility] al AFR AMER GFR >60 mL/min [facility] NON-AA GFR >60 mL/min [facility] Male GFR Inter prentation 20-49 yrs [...] >32 mL/min Normal ID Date Data Source [id number] 12/17/2020 08:10:00 PM [facility] Name Value Range Interpretation Code Description Data Cecy rce(s) Supporting Document(s) SALICYLATE <0.3 mg/dL 2.0 - 20.0 [facility] ID Date Data Source [id number] 12/17/2020 08:10:00 PM [facility] Name Value Range Interpretation Code Description Data Cecy rce(s) Supporting Document(s) Acetaminophen [Presence] in Urine <5.0 UG/ML 0.0 - 30.0 [facility] ID Date Data Source [id number] 12/17/2020 07:48:00 PM [facility] NOT DETECTEDNOT DETECTED{ PROC EDURAL CONTROL VALID KIT LOT # _[id number] 12/17/20.JOVANNA. KIT EXP DATE _[id number] 12/17/20.JOVANNA. NORMAL RANGE IS NOT DETECTEDNEGATIVE RESULTS SHOULD BE TREATED PRESUMPTIVE AND, IF INCONSISTENT WITHCLINICAL SIGNS AND SYMPTOMS OR NECESSARY FOR PATIENT MANAGEMENT, SHOULD BETESTED WITH DIFFERENT AUTHORIZED OR CLEARED MOLECULAR TESTS. NEGATIVE RESULTSDO NOT PRECLUDE SARS-CoV-2 INFECTION AND SHOULD NOT BE USED THE SOLE BASISFOR PATIENT MANAGEMENT DECISIONS. Name Value Range Interpretation Code Description Data [facility](s) Supporting Document(s) ID Date Data Source [id number] 12/17/2020 07:34:00 PM EST [facility] Name Value Range Interpretation Code Description Data [facility](s) Supporting Document(s) CBC W/AUTOMATED DIFF [facility] COMPLETE BLOOD COUNT Leukocytes [#/volume] in Blood by Automated count 5.9 10^3/uL 4.2 - 1 1.0 [facility] Erythrocytes [#/volume] in Blood by Automated count 5.71 10^6/uL 4. 50 - 6.30 [facility] Hemoglobin [Mass/volume] in Blood 18.0 g/dL 14.0 - 16.0 H [facility] Hematocrit [Volume Fraction] of Blood by Automated count 50.9 % 4 1.0 - 51.0 [facility] Erythrocyte mean corpuscular volume [Entitic volume] by Auto mated count 89.1 fL 80.0 - 94.0 [facility] Erythrocyte mean corpuscular hemoglobin [Entitic mass] by Automated count 31.5 pg 27.0 - 34.0 [facility] Erythrocyte mean corpuscular hemoglobin concentration [Mass/volume] by Automated count 35.4 g/dL 31.0 - 36.0 [facility] Erythrocyte distribution width [Ratio] by Automated count 12.6 % 11.5 - 14.8 [facility] Platelets [#/volume] in Blood by Automated count 304 10^3/uL 150 - 45 0 [facility] Platelet mean volume [Entitic volume] in Blood by Automated count 9.2 fL 7.4 - 10.4 [facility] Neutrophils/100 leukocytes in Blood by Automated count 46.7 % 37. 0 - 80.0 [facility] Lymphocytes/100 leukocytes in Blood by Manual count 43.1 % 25.0 - 40.0 H [facility] Monocytes/100 leukocytes in Blood by Automated count 7.3 % 3.0 - 8.0 [facility] Eosinophils/100 leukocytes in Blood by Automated count 1.5 % 0.0 - 7.0 [facility] Basophils/100 leukocytes in Blood by Automated count 0.7 % 0.0 - 2.0 [facility] %IG 0.7 % 0.0 - 0.0 [facility] %NRBC 0.0 % 0.0 - 0.0 [facility] Neutrophils [#/volume] in Blood by Automated count 2.75 10^3/uL 2.00 - 6.90 [facility] Lymphocytes [#/volume] in Blood by Automated count 2.54 10^3/uL 0.60 - 3.40 [facility] Monocytes [#/volume] in Blood by Automated count 0.43 10^3/uL 0.00 - 0.90 [facility] Eosinophils [#/volume] in Blood by Automated count 0.09 10^3/uL 0.00 - 0.70 [facility] Basophils [#/volume] in Blood by Automated count 0.04 10^3/uL 0.00 - 0.20 [facility] #IG 0.04 10^3/uL 0.00 - 0.10 [facility] #NRBC 0.00 10^3/uL 0.00 - 0.00 [facility] MANUAL DIFF NOT INDICATED [facility] RBC MORPH NOT INDICATED [facility] spital ID Date Data Source [id number] 11/19/2020 06:01:00 AM EST [facility] [address] [place] [address] RESPIRATORY CARE REPORT ==== ---------NAME------- NUMBER SEX AGE ADMIT DISCBritt CRONINAY# F/C JULIAN Navarro [id number] 11/17/20 11/18/20 [id number] XBE E/R DATE OF : 1990 M/R# [id number] #: [id number] TR-03 LOCATION: EMERGENCY DEPT EKG [id number] COMP LETE:11/18/20 01:52 [place] [id number] PHYSICIAN: JUDY Cr Name Value Range Interpretation Code Description Data Cecy rce(s) Supporting Document(s) ID Date Data Source [id number] 11/17/2020 10:05:00 PM EST [facility] 1 OrderSheet [facility] Emergency Department [address] [place] [address] Phone #: ext- [phone] 11/17/2020 22:04 Patient: CAMILO LAWSON Sex: M : 1990 Age: 30yWEIGHT:83.9 kg HEIGHT:70 inches BMI:26.5ALLERGIES: No Known Drug AllergyCHIEF COMPLAINT: depressed, anxious, agitated, angryDIAGNOSIS: Depressive disorder, Bipolar disorderLAB ORDERSOrder Description Priority Entered Acknowledged InitialedCBC w Diff STAT 22:11/17/2020 22:32 Judy Dorado Jack ; Shweta MayerCMP [...] 11/17/2020 00:27 11/18/2020ymptomatic as Pedro Rizo ; Shwtea Dorado R.N.Defined by CDC)(11/17/2020) (NotFirst Test) (NotHospitalized) (Not) (NotResident inCongregate CareSetting) (NotEmployed inHealthcare Setting)DIAGNOSTIC STUDY ORDERSOrder Desc ription Priority Entered Acknowledged InitialedMEDICATION/IV/DRIP/FLUID ORDERS 2 OrderSheet [facility] Emergency Department [address] [place] [address] Phone #: ext- [phone] 11/17/2020 22:04 Patient: [...] rce(s) Supporting Document(s) ID Date Data Source [id number] 11/17/2020 10:05:00 PM EST [facility] 1 Medication Reconciliation Report [facility] Emergency Department [address] [place] [address] Phone #: ext- [phone] 11/17/2020 22:04 [id number] Sex: M : 1990 Age: 30yWeight: 83.9 [...] rce(s) Supporting Document(s) ID Date Data Source [id number] 11/17/2020 10:05:00 PM [place] [address] Medication Administration Record [facility] Emergency Department [address] [place] [address] Phone #: [phone] 11/17/2020 22:04 Patient: CAMILO LAWSON Sex: M : 1990 Age: 30yWeight: 83.9 kgHeight/Length: 70 inBMI: 26.5ALLERGIES: No Known Drug Allergy Date/Time Medication Administered Medication OrderedGiven ACETAMINOPHEN [PO] Acetaminophen PO 1000 mg03:11/18/2020 Dose: 1000 mg Tablets PO (NOW x1)Shweta Dorado R.N. Name Value Range Interpretation Code Description Data Cecy rce(s) Supporting Document(s) ID Date Data Source [id number] 11/17/2020 10:05:00 PM [place] [address] General Instructions [facility] Emergency Department [address] [place] [address] Phone #: ext- [phone] 11/17/2020 22:04 Patient: CAMILO LAWSON Sex: M : 1990 Age: 30yAcute bipolar disorder with the current episode being severely manic without psychosis.Recurrent moderate major depressive disorder without psychosis.(Electronically signed by Pedro Rizo 11/18/2020 05:29) Name Value Range Interpretation Code Description Data Cecy rce(s) Supporting Document(s) ID Date Data Source [id number] 11/17/2020 10:05:00 PM EST [facility] 1 Clinical Report - Nurses [facility] Emergency Department [address] [place] [address] Phone #: ext [phone] 11/17/2020 22:04 Patient: CAMILO LAWSON Sex: M : 1990 Age: 30yTRIAGEArrived by EMS. Historian: patient. ( Patient reports feeling anxious and being depressed today. Deniesany ETOH today, did some marijuana this morning. Patient has a history anxiety/depression. States that 3days ago had a psuedoseizure and was evaluated at [facility]. Denies any SI.).Triage time: 22:03 11/17/2020. Acuity: LEVEL 4.Chief Complaint: ANXIETY.Alert. No acute distress.Onset: today. He has had anxiety and describes feelings of depression. ( Patient keeps repeating thathe hates his family, "I could careless if they of covid", "I wish I never met them".).Treatment INSPECTOR FINISHING:None. --22:15 11/17/20 Shweta Dorado R.N.22:08 11/17/20. BP: [...] "Do you 2 Clinical Report - Nurses [facility] Emergency Department [address] [place] [address] Phone #: ext- [phone] 11/17/2020 22:04 Patient: CAMILO LAWSON [facility]#: [id number] Sex: M : 1990 Age: 30y feel [...] this time to come back in the [facility] and wait for transfer to another facility. Patient is c ooperative at this time.). --01:13 11/18/20 Shweta Dorado R.N. ( Patient is sleeping at this time.). --01:51 11/18/20 Shweta Dorado R.N. Patient waiting for disposition. ( Patient updated on plan of care, information has been faxed to [facility] for review. Patient is cooperative [...] will make 3 Clinical Report - Nurses [facility] Emergency Department [address] [place] [address] Phone #: ext- [phone] 11/17/2020 22:04 Patient: CAMILO LAWSON Sex: M : 1990 Age: 30y MD aware.). Call light placed in reach. --03:12 11/18/20 Jordin Hitchcock 03:27 11/18/2020 Acetaminophen PO Tablets 1000 mg given. Allergies verified. Information reviewed with patient. --03:27 11/18/20 Shweta Dorado R.N. ( Attempted to call [facility] regarding transfer.). --04:45 11/18/20 Shweta Dorado R.N.DISPOSITION / DISCHARGE Departure time: 05:37 11/18/2020. Condition at departure: unchanged. Transferred to [facility]. Visit overview, summary of care (CCDA), [...] rce(s) Supporting Document(s) ID Date Data Source [id number] 11/17/2020 10:05:00 PM [facility] 1 Clinical Report - Physicians/Mid Levels [facility] Emergency Department [address] [place] [address] Phone #: ext- [phone] 11/17/2020 22:04 Patient: CAMILO LAWSON Sex: M [...] Surgery. 2 Clinical Report - Physicians/Mid Levels [facility] Emergency Department [address] [place] [address] Phone #: ext- [phone] 11/17/2020 22:04 [id number] Sex: M : 1990 Age: 30y Medications: [...] # _[id number] 11/18/20.0039.AB . KIT EXP DATE _[id number] 11/18/20.0039.AB . NORMAL RANGE IS NOT DETECTEDNEGATIVE [...] DIFF 3 Clinical Report - Physicians/Mid Levels [facility] Emergency Department [address] [place] [address] Phone #: ext- [phone] 11/17/2020 22:04 Patient: [...] Male GFR Interprentation 20-49 yrs >60 mL/min Haowkf38-90 yrs >56 mL/min Normal 60-69 yrs >49 mL/min Normal 70-79yrs>42 mL/min Normal 80 and above >35 mL/min Normal Female GFRInterpretation 20-39 yrs >60 mL/min Normal 40-49 yrs >58 mL/minNormal 50-59 yrs >51 mL/min Normal 60-69 yrs >45 mL/min Spqypz66-18 yrs >39 mL/min Normal 80 and above >32 mL/min Normal 4 Clinical Report - Physicians/Mid Levels [facility] Emergency Department [address] [place], [place] [address] Phone #: ext- [phone] 11/17/2020 22:04 Patient: [...] OCD. He is requesting to speak with group social worker/psychiatrist. 00:26 11/18/20. Patient informed that he is waiting for remainder of results and then his case will be brought to [facility]'s attention for psych evaluation. 00:49 11/18/20. Patient agreed to return back to ED. 30 mins ago he decided to leave the ED because he was tired of waiting. Patient is medically cleared. 5 Clinical Report - Physicians/Mid Levels [facility] Emergency Department [address] [place] [address] Phone #: ext- [phone] 11/17/2020 22:04 Patient: CAMILO LAWSON Sex: M : 1990 Age: 30y 05:26 11/18/20. Patient accepted to [facility]. Dr. Villagomez is the accepting physician. Disposition: Benefits, risks and alternatives to transfer explained to patient. Transferred to [facility]. Summary of care (CCDA) pro vided to transfer facility.CLINICAL IMPRESSION Acute bipolar disorder with the current episode being severely manic without psychosis. Recurrent moderate major depressive disorder without psychosis.(Electronically signed by Pedro Rizo 11/18/2020 05:29) Name Value Range Interpretation Code Description Data Cecy rce(s) Supporting Document(s) ID Date Data Source [id number] 11/17/2020 10:05:00 PM [facility] Shhaid for CAMILO LAWSON VisitID: [id number] Date: 2:39Faxed chart to [facility] for psych review at 0130(Electronically signed by Justin Maldonado - 11/18/2020 2:39) Name Value Range Interpretation Code Description Data [facility] Supporting Document(s) ID Date Data Source [id number] 11/18/2020 12:39:00 AM [facility] NOT DETECTEDNOT DETECTED{ PROC EDURAL CONTROL VALID KIT LOT # _[id number] 11/18/20.0039.AB . KIT EXP DATE _[id number] 11/18/20.0039.AB . NORMAL RANGE IS NOT DETECTEDNEGATIVE RESULTS SHOULD BE TREATED PRESUMPTIVE AND, IF INCONSISTENT WITHCLINICAL SIGNS AND SYMPTOMS OR NECESSARY FOR PATIENT MANAGEMENT, SHOULD BETESTED WITH DIFFERENT AUTHORIZED OR CLEARED MOLECULAR TESTS. NEGATIVE RESULTSDO NOT PRECLUDE SARS-CoV-2 INFECTION AND SHOULD NOT BE USED THE SOLE BASISFOR PATIENT MANAGEMENT DECISIONS. Name Value Range Interpretation Code Description Data [facility] rce(s) Supporting Document(s) ID Date Data Source [id number] 11/17/2020 11:46:00 PM [facility] Name Value Range Interpretation Code Description Data [facility](s) Supporting Document(s) DRUG SCREEN URINE [facility] URINE DRUG SCREEN Amphetamine [Presence] in Urine by Screen method NEGATIVE NORMAL: N EGATIVE [facility] BARBITURATES NEGATIVE NORMAL: NEGATIVE [facility] BENZO NEGATIVE NORMAL: NEGATIVE [facility] COCAINE NEGATIVE NORMAL: NEGATIVE [facility] Tetrahydrocannabinol [Presence] in Urine NEGATIVE NORMAL: NEGATIVE [facility] OPIATES NEGATIVE NORMAL: NEGATIVE [facility] Phencyclidine [Presence] in Urine by Screen method NEGATIVE NOR MAL: NEGATIVE [facility] \\BLDo\\URINE DRUG SCR EEN INTERPRETATION\\BLDx\\ THE CUTOFFF LEVELS FOR DETECTION ARE FOLLOWS: AMPHETAMINES 1000 ng/ml BARBITUARATES 200 ng/ml BENZODIAZEPINES 100 ng/ml THC 50 ng/ml PHENCYCLIDINE 25 ng/ml OPIATES 300 ng/ml COCAINE 300 ng/ml ALL POSITIVES ARE CONSIDERED PRESUMPTIVE POSITIVE CONFIRMATION WILL BE PERFORMED AT PHYSICIAN REQUEST. ID Date Data Source [id number] 11/17/2020 11:31:00 PM [facility] Name Value Range Interpretation Code Description Data Cecy rce(s) Supporting Document(s) SALICYLATE <0.3 mg/dL 2.0 - 20.0 L [facility] ID Date Data Source [id number] 11/17/2020 11:31:00 PM [facility] Name Value Range Interpretation Code Description Data Cecy rce(s) Supporting Document(s) COMPREHENSIVE METABOLIC PANEL [facility] COMPREHENSIVE METABOLIC PANEL Sodium [Moles/volume] in Serum or Plasma 141 mEq/L 134 - 153 [facility] Potassium [Moles/volume] in Serum or Plasma 3.8 mEq/L 3.6 - 5.0 [facility] Chloride [Moles/volume] in Serum or Plasma 104 mEq/L 98 - 107 [facility] Carbon dioxide, total [Moles/volume] in Serum or Plasma 23 MEQ/L 22 - 30 [facility] Glucose [Mass/volume] in Serum or Plasma 116 MG/DL 70 - 99 H [facility] BUN 8 MG/DL 7 - 21 [facility] Creatinine [Mass/volume] in Serum or Plasma 0.6 MG/DL 0.7 - 1.5 L [facility] BUN/CREAT 13 8 - 27 [facility] Protein [Mass/volume] in Serum or Plasma 6.1 G/DL 6.3 - 8.2 L [facility] Albumin [Mass/volume] in Serum or Plasma 4.8 G/DL 3.9 - 5.0 [facility] Globulin [Mass/volume] in Serum by calculation 1.3 GM/DL 2.4 - 3.2 L [facility] A/G RATIO 3.7 0.8 - 2.0 H [facility] Calcium [Mass/volume] in Serum or Plasma 9.0 MG/DL 8.4 - 10.2 [facility] Bilirubin.total [Mass/volume] in Serum or Plasma <0.7 MG/DL 0.2 - 1.3 [facility] Alkaline phosphatase [Enzymatic activity/volume] in Serum or Plasma 95 U/L 38 - 126 [facility] Aspartate aminotransferase [Enzymatic activity/volume] in Serum or Plasma 27 U/L 5 - 40 [facility] Alanine aminotransferase [Enzymatic activity/volume] in Seru m or Plasma 24 U/L 7 - 56 [facility] Anion gap 3 in Serum or Plasma 14.0 mmol/L 8.0 - 16.0 [facility] AGE 30 yrs [facility] NON-AA GFR >60 mL/min [facility] AFR AMER GFR >60 mL/min [facility] Male GFR In terprentation 20-49 [...] >32 mL/min Normal ID Date Data Source [id number] 11/17/2020 11:31:00 PM [facility] Name Value Range Interpretation Code Description Data Cecy rce(s) Supporting Document(s) Ethanol [Moles/volume] in Blood <10.0 MG/DL [facility] ALCOHOL % 0.01 % 0.00 - 0.01 [facility] *FOR MEDICAL PURPOSES ONLY * ID Date Data Source [id number] 11/17/2020 11:31:00 PM [facility] Name Value Range Interpretation Code Description Data Cecy rce(s) Supporting Document(s) Thyrotropin [Units/volume] in Serum or Plasma by Detec tion limit <= 0.05 mIU/L 1.06 uIU/mL 0.47 - 5.01 [facility] ID Date Data Source [id number] 11/17/2020 10:56:00 PM [facility] Value Range Interpretation Code Description Data Cecy rce(s) Supporting Document(s) CBC W/AUTOMATED DIFF [facility] COMPLETE BLOOD COUNT Leukocytes [#/volume] in Blood by Automated count 8.3 10^3/uL 4.2 - 1 1.0 [facility] Erythrocytes [#/volume] in Blood by Automated count 5.28 10^6/uL 4. 50 - 6.30 [facility] Hemoglobin [Mass/volume] in Blood 16.1 g/dL 14.0 - 16.0 H [facility] Hematocrit [Volume Fraction] of Blood by Automated count 46.5 % 4 1.0 - 51.0 [facility] Erythrocyte mean corpuscular volume [Entitic volume] by Auto mated count 88.1 fL 80.0 - 94.0 [facility] Erythrocyte mean corpuscular hemoglobin [Entitic mass] by Automated count 30.5 pg 27.0 - 34.0 [facility] Erythrocyte mean corpuscular hemoglobin concentration [Mass/volume] by Automated count 34.6 g/dL 31.0 - 36.0 [facility] Erythrocyte distribution width [Ratio] by Automated count 12.4 % 11.5 - 14.8 [facility] Platelets [#/volume] in Blood by Automated count 299 10^3/uL 150 - 45 0 [facility] Platelet mean volume [Entitic volume] in Blood by Automated count 9.2 fL 7.4 - 10.4 [facility] Neutrophils/100 leukocytes in Blood by Automated count 68.8 % 37. 0 - 80.0 [facility] Lymphocytes/100 leukocytes in Blood by Manual count 21.8 % 25.0 - 40.0 L [facility] Monocytes/100 leukocytes in Blood by Automated count 7.4 % 3.0 - 8.0 [facility] Eosinophils/100 leukocytes in Blood by Automated count 0.7 % 0.0 - 7.0 [facility] Basophils/100 leukocytes in Blood by Automated count 0.8 % 0.0 - 2.0 [facility] %IG 0.5 % 0.0 - 0.0 [facility] %NRBC 0.0 % 0.0 - 0.0 [facility] Neutrophils [#/volume] in Blood by Automated count 5.69 10^3/uL 2.00 - 6.90 [facility] Lymphocytes [#/volume] in Blood by Automated count 1.80 10^3/uL 0.60 - 3.40 [facility] Monocytes [#/volume] in Blood by Automated count 0.61 10^3/uL 0.00 - 0.90 [facility] Eosinophils [#/volume] in Blood by Automated count 0.06 10^3/uL 0.00 - 0.70 [facility] Basophils [#/volume] in Blood by Automated count 0.07 10^3/uL 0.00 - 0.20 [facility] #IG 0.04 10^3/uL 0.00 - 0.10 [facility] #NRBC 0.00 10^3/uL 0.00 - 0.00 [facility] MANUAL DIFF NOT INDICATED [facility] RBC MORPH NOT INDICATED [facility] spital ID Date Data Source [id number] 11/18/2020 01:40:00 AM [facility] Name Value Range Interpretation Code Description Data Cecy rce(s) Supporting Document(s) Acetaminophen [Presence] in Urine <5.0 UG/ML 0.0 - 30.0 [facility] ID Date Data Source [id number] 09/06/2020 07:03:00 PM [facility] 1 OrderSheet [facility] Emergency Department [address] [place] [address] Phone #: ext- [phone] 09/06/2020 19:02 Patient: [...] IV Prudencio Chapin R.N.Contrast Physician;(Oxygen?(No)) 2 OrderSheet [facility] Emergency Department [address] [place] [address] Phone #: ext- [phone] 09/06/2020 19:02 Patient: CAMILO LAWSON Sex: M : 1990 Age: 29y(IV?(No)) NOTES: Rectal pain Reason for Study: Abdominal PainMEDICATION/IV/DRIP/FLUID ORDERSOrder Description Priority Entered Acknowledged InitialedGENERAL ORDERSOrder Description Priority Entered Acknowledged Initialed[Electronically signed by Prudencio Cruz (23:09/06/2020)][Electronically signed by Peggy Dye R.N. (09/06/2020)][Electronically locked by Peggy Dye R.N. (09/06/2020)] Name Value Range Interpretation Code Description Data Cecy rce(s) Supporting Document(s) ID Date Data Source [id number] 09/06/2020 07:03:00 PM [facility] 1 Medication Reconciliation Report [facility] Emergency Department [address] [place] [address] Phone #: ext- [phone] 09/06/2020 19:02 Patient: [...] rce(s) Supporting Document(s) ID Date Data Source [id number] 09/06/2020 07:03:00 PM [facility] 1 Medication Administration Record [facility] Emergency Department [address] [place] [address] Phone #: ext- [phone] 19:02 Patient: CAMILO LAWSON Sex: M : 1990 Age: 29yWeight: 90.2 kgHeight/Length: 66 inBMI: 32.1ALLERGIES: No Known Drug AllergyDate/Time Medication Administered Medication Ordered Name Value Range Interpretation Code Description Data Cecy rce(s) Supporting Document(s) ID Date Data Source [id number] 09/06/2020 07:03:00 PM [facility] 1 General Instructions [facility] Emergency Department [address] [place] [address] Phone #: ext [phone] 09/06/2020 19:02 Patient: CAMILO LAWSON Sex: M [...] rce(s) Supporting Document(s) ID Date Data Source [id number] 09/06/2020 07:03:00 PM EST [facility] 1 Clinical Report - Nurses [facility] Emergency Department [address] [place] [address] Phone #: ext- [phone] 09/06/2020 19:02 Patient: [...]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 calculation 2.3 GM/DL 2.4 - 3.2 L [facility] A/G RATIO 1.9 0.8 - 2.0 [facility] Calcium [Mass/volume] in Serum or Plasma 9.3 MG/DL 8.4 - 10.2 [facility] Bilirubin.total [Mass/volume] in Serum or Plasma 0.8 MG/DL 0.2 - 1.3 [facility] Alkaline phosphatase [Enzymatic activity/volume] in Serum or Plasma 108 U/L 38 - 126 [facility] Aspartate aminotransferase [Enzymatic activity/volume] in Serum or Plasma 17 U/L 5 - 40 [facility] Alanine aminotransferase [Enzymatic activity/volume] in Seru m or Plasma 18 U/L 7 - 56 [facility] Anion gap 3 in Serum or Plasma 7.0 mmol/L 8.0 - 16.0 L [facility] AGE 29 y[facility] NON-AA GFR >60 mL/min [facility] AFR AMER GFR >60 mL/min [facility] Male GFR In terprentation 20-49 [...] >32 mL/min Normal ID Date Data Source [id number] 08/29/2020 01:45:00 AM [facility] Name Value Range Interpretation Code Description Data Cecy rce(s) Supporting Document(s) Lactate [Moles/volume] in Serum or Plasma 1.0 MMOL/L 0.2 - 2.2 [facility] ID Date Data Source [id number] 08/29/2020 01:42:00 AM [facility] Name Value Range Interpretation Code Description Data Cecy rce(s) Supporting Document(s) CBC W/AUTOMATED DIFF [facility] COMPLETE BLOOD COUNT Leukocytes [#/volume] in Blood by Automated count 8.4 10^3/uL 4.2 - 1 1.0 [facility] Erythrocytes [#/volume] in Blood by Automated count 4.97 10^6/uL 4. 50 - 6.30 [facility] Hemoglobin [Mass/volume] in Blood 15.1 g/dL 14.0 - 16.0 [facility] Hematocrit [Volume Fraction] of Blood by Automated count 43.8 % 4 1.0 - 51.0 [facility] Erythrocyte mean corpuscular volume [Entitic volume] by Auto mated count 88.1 fL 80.0 - 94.0 [facility] Erythrocyte mean corpuscular hemoglobin [Entitic mass] by Automated count 30.4 pg 27.0 - 34.0 [facility] Erythrocyte mean corpuscular hemoglobin concentration [Mass/volume] by Automated count 34.5 g/dL 31.0 - 36.0 [facility] Erythrocyte distribution width [Ratio] by Automated count 12.6 % 11.5 - 14.8 [facility] Platelets [#/volume] in Blood by Automated count 258 10^3/uL 150 - 45 0 [facility] Platelet mean volume [Entitic volume] in Blood by Automated count 9.9 fL 7.4 - 10.4 [facility] Neutrophils/100 leukocytes in Blood by Automated count 59.4 % 37. 0 - 80.0 [facility] Lymphocytes/100 leukocytes in Blood by Manual count 28.6 % 25.0 - 40.0 [facility] Monocytes/100 leukocytes in Blood by Automated count 8.9 % 3.0 - 8.0 H [facility] Eosinophils/100 leukocytes in Blood by Automated count 2.1 % 0.0 - 7.0 [facility] Basophils/100 leukocytes in Blood by Automated count 0.6 % 0.0 - 2.0 [facility] %IG 0.4 % 0.0 - 0.0 [facility] %NRBC 0.0 % 0.0 - 0.0 [facility] al Neutrophils [#/volume] in Blood by Automated count 4.99 10^3/uL 2.00 - 6.90 [facility] Lymphocytes [#/volume] in Blood by Automated count 2.40 10^3/uL 0.60 - 3.40 [facility] Monocytes [#/volume] in Blood by Automated count 0.75 10^3/uL 0.00 - 0.90 [facility] Eosinophils [#/volume] in Blood by Automated count 0.18 10^3/uL 0.00 - 0.70 [facility] Basophils [#/volume] in Blood by Automated count 0.05 10^3/uL 0.00 - 0.20 [facility] #IG 0.03 10^3/uL 0.00 - 0.10 [facility] #NRBC 0.00 10^3/uL 0.00 - 0.00 [facility] MANUAL DIFF NOT INDICATED [facility] RBC MORPH NOT INDICATED [facility] ID Date Data Source [id number] 08/29/2020 01:40:00 AM EST [facility] Name Value Range Interpretation Code Description Data Cecy rce(s) Supporting Document(s) DRUG SCREEN URINE [facility] URINE DRUG SCREEN Amphetamine [Presence] in Urine by Screen method NEGATIVE NORMAL: N EGATIVE [facility] BARBITURATES NEGATIVE NORMAL: NEGATIVE [facility] BENZO NEGATIVE NORMAL: NEGATIVE [facility] COCAINE NEGATIVE NORMAL: NEGATIVE [facility] Tetrahydrocannabinol [Presence] in Urine NEGATIVE NORMAL: NEGATIVE [facility] OPIATES NEGATIVE NORMAL: NEGATIVE [facility] Phencyclidine [Presence] in Urine by Screen method NEGATIVE NOR MAL: NEGATIVE [facility] \\BLDo\\URINE DRUG SCR EEN INTERPRETATION\\BLDx\\ THE CUTOFFF LEVELS FOR DETECTION ARE FOLLOWS: AMPHETAMINES 1000 ng/ml BARBITUARATES 200 ng/ml BENZODIAZEPINES 100 ng/ml THC 50 ng/ml PHENCYCLIDINE 25 ng/ml OPIATES 300 ng/ml COCAINE 300 ng/ml ALL POSITIVES ARE CONSIDERED PRESUMPTIVE POSITIVE CONFIRMATION WILL BE PERFORMED AT PHYSICIAN REQUEST. ID Date Data Source [id number] 08/29/2020 01:25:00 AM [facility] Name Value Range Interpretation Code Description Data Cecy rce(s) Supporting Document(s) [facility] COLOR yellow NORMAL: Yellow [facility] CLARITY clear NORMAL: Clear [facility] Specific gravity of Urine by Test strip 1.010 1.001 - 1.030 [facility] pH 6.5 5 - 9 [facility] al Glucose [Mass/volume] in Urine by Test strip NORM NORMAL: Negat delia [facility] Bilirubin.total [Presence] in Urine by Test strip NEG NORMAL: Negative [facility] Ketones [Presence] in Urine by Test strip NEG NORMAL: Negative [facility] Protein [Mass/volume] in Urine by Test strip NEG NORMAL: Negat delia [facility] Nitrite [Presence] in Urine by Test strip NEG NORMAL: Negative [facility] BLOOD NEG NORMAL: Negative [facility] Leukocyte esterase [Presence] in Urine by Test strip NEG TR[place]ON L: Negative [facility] Urobilinogen [Mass/volume] in Urine by Test strip NOR less alida n 1.0 mg/dL [facility] MICROSCOPIC Not Indicate [facility] ID Date Data Source [id number] 08/19/2020 01:52:52 PM EDT [facility] Vital SignsBlood Pressure: 138/82 Patient History Medical History:Brain TumorSeizure DisorderDepressionHx of kidney stonesBipolarSurgical History:Partial lobectomyFamily History:No known family historySocial/Personal History: Smoking Status: current some day smokerDo you vape? NoCurrent Problems: Normal examination (ICD-V65.5) (VOO28-T19.1)Dental caries/Impaction of teeth (ICD-521.00) (JGB99-G00.9)Contact dermatitis and other eczema, unspecified cause (ICD-692.9) (NOA38-A52.9)Depression (ICD-311) (YSP70-G49.9)Seizure Disorder (ICD-780.39) (ZPH91-K40.9)Brain Tumor (ICD-191.9) (PAP58-N92.9)Problem list reviewed during this update.Current Medications: SEROQUEL [...] Known Allergies (updated 08/19/2020) Orders:Oral Surgery Referral [[id number]] Clinical Visit Summary Declined Name Value Range Interpretation Code Description Data Cecy rce(s) Supporting Document(s) ID Date Data Source [id number] 08/14/2020 07:17:00 PM EDT [facility] 1 Medication Reconciliation Report [facility] Emergency Department [address] [place] [address] Phone #: ext- [phone] 08/14/2020 19:09 Patient: [...] rce(s) Supporting Document(s) ID Date Data Source [id number] 08/14/2020 07:17:00 PM EDT [facility] 1 Medication Administration Record [facility] Emergency Department [address] [place] [address] Phone #: ext- [phone] 19:09 Patient: CAMILO LAWSON Sex: M : 1990 Age: 29yWeight: 81.6 kgHeight/Length: 72 inBMI: 24.4ALLERGIES: No Known Drug AllergyDate/Time Medication Administered Medication Ordered Name Value Range Interpretation Code Description Data Cecy rce(s) Supporting Document(s) ID Date Data Source [id number] 08/14/2020 07:17:00 PM EDT [facility] 1 General Instructions [facility] Emergency Department [address] [place] [address] Phone #: ext- [phone] 08/14/2020 19:09 Patient: CAMILO LAWSON Sex: M : 1990 Age: 29y Anxiety reaction. No hyperventilation.INSTRUCTIONS Warnings: GENERAL WARNINGS: Return or contact your physician immediately if your condition worsens or changes unexpectedly, if not improving as expected, or if other problems arise. Understanding of the discharge instructions verbalized by patient. Follow-up with: [facility], , , [address] [place], [address] Follow up in one week. Call for [...] may experience: Dry mouth 2 General Instructions [facility] Emergency Department [address] [place] [address] Phone #: ext- [phone] 08/14/2020 19:09 Patient: [...] Also, there are certain 3 General Instructions [facility] Emergency Department [address] [place] [address] Phone #: ext- [phone] 08/14/2020 19:09 Patient: [...] andtemporary medicine to help you manage stress.Call [phone] if any of these happen: Trouble breathing [...] and mild pain reliever 4 General Instructions [facility] Emergency Department [address] [place], [place] [address] Phone #: ext- [phone] 08/14/2020 19:09 Patient: CAMILO LAWSON Sex: M : 1990 Age: 29y [phone] [employer]. [address] [place] [address]. All rights reserved. This information is not intended as asubstitute for professional medical care. Always follow your healthcare professional's instructions. You have been given the following additional information: Anxiety Reaction(Electronically signed by Pedro Rizo, 08/14/2020 20:15) Name Value Range Interpretation Code Description Data Cecy rce(s) Supporting Document(s) ID Date Data Source [id number] 08/14/2020 07:17:00 PM EDT [facility] 1 Clinical Report - Nurses [facility] Emergency Department [address] [place] [address] Phone #: ext- [phone] 08/14/2020 19:09 Patient: [...] no barriers. 2 Clinical Report - Nurses [facility] Emergency Department [address] [place] [address] Phone #: ext- [phone] 08/14/2020 19:09 Patient: CAMILO LAWSON Sex: M : 1990 Age: 29y FALL RISK ASSESSMENT: Fall risk assessment completed. No risk factors identified. SKIN INTEGRITY ASSESSMENT: Skin integrity risk assessment completed. No skin integrity risk identified. --19:30 08/14/20 Alfonso Buck R.N. FAMILY HX: No significant family medical history. --19:53 08/14/20 Pedro Rizo.PHYSICAL EZGLHCUGOV02:35 08/14/20. Ambulatory to room.GENERAL / NEURO / [...] Patient verbalized understanding. Written instructions provided in Serbian. The patient was discharged home and unaccompanied at time of discharge. He left ambulatory and via taxi. 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 --20:04 08/14/20 Carito Barry R.N. 20:03 08/14/20. BP: 141/93. MAP: 109. HR: 81. RR: 16. O2 saturation: 98%. Temp: 97.9 F. Pain level now: 010. --20:04 08/14/20 Carito Barry R.N.Locked/Released at 08/14/2020 20:04 by Carito Barry R.N. Name Value Range Interpretation Code Description Data Cecy rce(s) Supporting Document(s) ID Date Data Source [id number] 08/14/2020 07:17:00 PM EDT [facility] 1 Clinical Report - Physicians/Mid Levels [facility] Emergency Department [address] [place] [address] Phone #: ext- [phone] 08/14/2020 19:09 Patient: [...] alone. 2 Clinical Report - Physicians/Mid Levels [facility] Emergency Department [address] [place] [address] Phone #: ext- [phone] 08/14/2020 19:09 Patient: CAMILO LAWSON Sex: M [...] patient. 3 Clinical Report - Physicians/Mid Levels [facility] Emergency Department [address] [place] [address] Phone #: ext- [phone] 08/14/2020 19:09 Patient: CAMILO LAWSON Sex: M : 1990 Age: 29y Follow-up with: [facility], , , [address] [place], [address] Follow up in one week. Call for an appointment.(Electronically signed by Pedro Rizo, 08/14/2020 20:15) Name Value Range Interpretation Code Description Data Cecy rce(s) Supporting Document(s) Procedure Social History Code Duration Value Status Description Data Source(s ) Smoking 07/20/2021 12:00:00 AM EDT Smoker, current status unkn own completed Smoker, current status unknown [facility] ([facility]) Smoking 07/05/2021 12:00:00 AM EDT Smoker, current status unkn own completed Smoker, current status unknown [facility] ([facility]) Smoking 03/29/2021 12:00:00 AM EDT Smoker, current status unkn own completed Smoker, current status unknown [facility] ([facility]) Smoking 02/17/2021 12:00:00 AM EDT Smoker, current status unkn own completed Smoker, current status unknown [facility] ([facility]) Smoking 01/01/2021 12:00:00 AM EST Smoker, current status unkn own completed Smoker, current status unknown [facility] ([facility]) Smoking 11/17/2020 12:00:00 AM EST Smoker, current status unkn own completed Smoker, current status unknown [facility] ([facility]) Smoking 11/02/2020 12:00:00 AM EST Smoker, current status unkn own completed Smoker, current status unknown [facility] ([facility]) Smoking 10/20/2020 12:00:00 AM EST Smoker, current status unkn own completed Smoker, current status unknown [facility] ([facility]) Smoking 09/24/2020 12:00:00 AM EST Smoker, current status unkn own completed Smoker, current status unknown [facility] ([facility]) Smoking 09/02/2020 12:00:00 AM EST Smoker, current status unkn own completed Smoker, current status unknown [facility] ([facility]) Smoking 08/19/2020 12:00:00 AM EDT Smoker, current status unkn own completed Smoker, current status unknown [facility] ([facility]) Smoking 08/18/2020 12:00:00 AM EDT Smoker, current status unkn own completed Smoker, current status unknown [facility] ([facility]) Smoking 07/29/2020 12:00:00 AM EDT Smoker, current status unkn own completed Smoker, current status unknown [facility] ([facility]) Smoking 07/22/2020 12:00:00 AM EDT Smoker, current status unkn own completed Smoker, current status unknown [facility] ([facility]) Smoking 07/10/2020 12:00:00 AM EDT Smoker, current status unkn own completed Smoker, current status unknown [facility] ([facility])
[2021-08-11 06:55] VITALS: BP 128/69
== END 2021-08-11 06:57 | disposition home or self-care (01) ==
LOC: M ED 23:07
DX: F10.129 Alcohol abuse with intoxication, unspecified (principal); F20.9 Schizophrenia, unspecified; Z87.820 Personal history of traumatic brain injury; Z79.899 Other long term (current) drug therapy

== ENCOUNTER 2021-08-18 16:14 | Emergency (ER) | payer MEDICAID ==
[~2021-08-18] VITALS: Ht 180.3 cm; Wt 83.5 kg
[2021-08-18] MEDS ORDERED: HALOPERIDOL 5MG/ML VIAL (J1630 PER 1) IM ONE (16:25)
[2021-08-18] MEDS ORDERED: diphenhydrAMINE 50MG/ML VIAL (J1200) IM ONE (16:25)
--- OUTSIDE RECORDS SUMMARY | 2021-08-18 16:25 | CCD ---
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 PROCEDURESCourse of Care: 18:47 12/17/20. Patient ambulatory without difficulty. No obvious injuries. He denies anyself injury. He currently has no complaints. 20:21 12/17/20. Patient is acting erratic. reporting feeling depressed. 06:36 12/18/20. Patient awake and requesting to go to [facility]. "Send me to [facility] or send me home" Patient's case discussed with ED physician at [facility] who is familiar with the patient. Dr. Sandra agrees to accept to patient to the ED. 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, associated with schizophrenia.(Electronically signed by Pedro Rizo 12/18/2020 06:44) Name Value Range Interpretation Code Description Data Cecy rce(s) Supporting Document(s) ID Date Data Source [id number] 12/18/2020 04:31:00 AM EST [facility] Name Value Range Interpretation Code Description Data Cecy rce(s) Supporting Document(s) Ethanol [Moles/volume] in Blood 100.0 MG/DL [facility] ALCOHOL % 0.10 % 0.00 - 0.01 H [facility] ital *FOR MEDICAL PURPOSES ONLY * ID Date Data Source [id number] 12/17/2020 08:23:00 PM EST [facility] Name Value Range Interpretation Code Description Data Cecy rce(s) Supporting Document(s) [facility] COL[facility] yellow NORMAL: Yellow [facility] ospital CLARITY clear NORMAL: Clear [facility] spital Specific gravity of Urine by Test strip 1.010 1.001 - 1.030 [facility] pH 7 5 - 9 [facility] al Glucose [Mass/volume] in Urine by Test strip NORM NORMAL: Negat [facility] Bilirubin.total [Presence] in Urine by Test strip NEG NORMAL: Negative [facility] Ketones [Presence] in Urine by Test strip NEG NORMAL: Negative [facility] Protein [Mass/volume] in Urine by Test strip NEG NORMAL: Negat [facility] Nitrite [Presence] in Urine by Test strip NEG NORMAL: Negative [facility] BLOOD NEG NORMAL: Negative [facility] Leukocyte esterase [Presence] in Urine by Test strip NEG TR[place] L: Negative [facility] Urobilinogen [Mass/volume] in Urine by Test strip NOR less alida n 1.0 mg/dL [facility] MICROSCOPIC Not Indicate [facility] ID Date Data Source [id number] 12/17/2020 07:58:00 PM [facility] Name Value Range Interpretation Code Description Data Cecy rce(s) Supporting Document(s) DRUG SCREEN URINE [facility] URINE DRUG SCREEN Amphetamine [Presence] in Urine by Screen method NEGATIVE NORMAL: N EGATIVE [facility] BARBITURATES NEGATIVE NORMAL: NEGATIVE [facility] BENZO NEGATIVE NORMAL: NEGATIVE [facility] COCAINE NEGATIVE NORMAL: NEGATIVE [facility] Tetrahydrocannabinol [Presence] in Urine NEGATIVE NORMAL: NEGATIVE [facility] OPIATES NEGATIVE NORMAL: NEGATIVE [facility] Phencyclidine [Presence] in Urine by Screen method NEGATIVE NOR MAL: NEGATIVE [facility] \\BLDo\\URINE DRUG SCR EEN INTERPRETATION\\BLDx\\ THE CUTOFFF LEVELS FOR DETECTION ARE FOLLOWS: AMPHETAMINES 1000 ng/ml BARBITUARATES 200 ng/ml BENZODIAZEPINES 100 ng/ml THC 50 ng/ml PHENCYCLIDINE 25 ng/ml OPIATES 300 ng/ml COCAINE 300 ng/ml ALL POSITIVES ARE CONSIDERED PRESUMPTIVE POSITIVE CONFIRMATION WILL BE PERFORMED AT PHYSICIAN REQUEST. ID Date Data Source [id number] 12/17/2020 07:20:00 PM EST [facility] Name Value Range Interpretation Code Description Data Cecy rce(s) Supporting Document(s) COVID19 Case rprt NOT DETECTED [facility] This lab was ordered by [facility] and reported by [facility]. ID Date Data Source [id number] 12/17/2020 08:23:00 PM EST [facility] Name Value Range Interpretation Code Description Data Cecy rce(s) Supporting Document(s) Thyrotropin [Units/volume] in Serum or Plasma by Detec tion limit <= 0.05 mIU/L 0.47 uIU/mL 0.47 - 5.01 [facility] ID Date Data Source [id number] 12/17/2020 08:10:00 PM EST [facility] Name Value Range Interpretation Code Description Data Cecy rce(s) Supporting Document(s) Ethanol [Moles/volume] in Blood 265.0 MG/DL [facility] ALCOHOL % 0.27 % 0.00 - 0.01 H [facility] ital *FOR MEDICAL PURPOSES ONLY * ID Date Data Source [id number] 12/17/2020 08:10:00 PM EST [facility] Name Value Range Interpretation Code Description Data Cecy rce(s) Supporting Document(s) BASIC METABOLIC PANEL [facility] BASIC METABOLIC PANEL Sodium [Moles/volume] in Serum or Plasma 142 mEq/L 134 - 153 [facility] Potassium [Moles/volume] in Serum or Plasma 3.3 mEq/L 3.6 - 5.0 L [facility] Chloride [Moles/volume] in Serum or Plasma 104 mEq/L 98 - 107 [facility] Carbon dioxide, total [Moles/volume] in Serum or Plasma 28 MEQ/L 22 - 30 [facility] Glucose [Mass/volume] in Serum or Plasma 91 MG/DL 70 - 99 [facility] BUN 5 MG/DL 7 - 21 L [facility] Creatinine [Mass/volume] in Serum or Plasma 0.6 MG/DL 0.7 - 1.5 L [facility] BUN/CREAT 8 8 - 27 [facility] al Calcium [Mass/volume] in Serum or Plasma 9.0 MG/DL 8.4 - 10.2 [facility] Anion gap 3 in Serum or Plasma 10.0 mmol/L 8.0 - 16.0 [facility] AGE 30 yrs [facility] al AFR AMER GFR >60 mL/min [facility] NON-AA GFR >60 mL/min [facility] ital Male GFR Inter prentation 20-49 [...] >32 mL/min Normal ID Date Data Source [id number] 12/17/2020 08:10:00 PM [facility] Name Value Range Interpretation Code Description Data Cecy rce(s) Supporting Document(s) SALICYLATE <0.3 mg/dL 2.0 - 20.0 L [facility] ID Date Data Source [id number] 12/17/2020 08:10:00 PM [facility] Name Value Range Interpretation Code Description Data Cecy rce(s) Supporting Document(s) Acetaminophen [Presence] in Urine <5.0 UG/ML 0.0 - 30.0 [facility] ID Date Data Source [id number] 12/17/2020 07:48:00 PM [facility] NOT DETECTEDNOT DETECTED{ PROC EDURAL CONTROL VALID KIT LOT # _[id number] 12/17/20.JOVANNA. KIT EXP DATE _[id number] 12/17/20.JOVANNA. NORMAL RANGE IS NOT DETECTEDNEGATIVE RESULTS SHOULD BE TREATED PRESUMPTIVE AND, IF INCONSISTENT WITHCLINICAL SIGNS AND SYMPTOMS OR NECESSARY FOR PATIENT MANAGEMENT, SHOULD BETESTED WITH DIFFERENT AUTHORIZED OR CLEARED MOLECULAR TESTS. NEGATIVE RESULTSDO NOT PRECLUDE SARS-CoV-2 INFECTION AND SHOULD NOT BE USED THE SOLE BASISFOR PATIENT MANAGEMENT DECISIONS. Name Value Range Interpretation Code Description Data [facility](s) Supporting Document(s) ID Date Data Source [id number] 12/17/2020 07:34:00 PM EST [facility] Name Value Range Interpretation Code Description Data [facility](s) Supporting Document(s) CBC W/AUTOMATED DIFF [facility] COMPLETE BLOOD COUNT Leukocytes [#/volume] in Blood by Automated count 5.9 10^3/uL 4.2 - 1 1.0 [facility] Erythrocytes [#/volume] in Blood by Automated count 5.71 10^6/uL 4. 50 - 6.30 [facility] Hemoglobin [Mass/volume] in Blood 18.0 g/dL 14.0 - 16.0 H [facility] Hematocrit [Volume Fraction] of Blood by Automated count 50.9 % 4 1.0 - 51.0 [facility] Erythrocyte mean corpuscular volume [Entitic volume] by Auto mated count 89.1 fL 80.0 - 94.0 [facility] Erythrocyte mean corpuscular hemoglobin [Entitic mass] by Automated count 31.5 pg 27.0 - 34.0 [facility] Erythrocyte mean corpuscular hemoglobin concentration [Mass/volume] by Automated count 35.4 g/dL 31.0 - 36.0 [facility] Erythrocyte distribution width [Ratio] by Automated count 12.6 % 11.5 - 14.8 [facility] Platelets [#/volume] in Blood by Automated count 304 10^3/uL 150 - 45 0 [facility] Platelet mean volume [Entitic volume] in Blood by Automated count 9.2 fL 7.4 - 10.4 [facility] Neutrophils/100 leukocytes in Blood by Automated count 46.7 % 37. 0 - 80.0 [facility] Lymphocytes/100 leukocytes in Blood by Manual count 43.1 % 25.0 - 40.0 H [facility] Monocytes/100 leukocytes in Blood by Automated count 7.3 % 3.0 - 8.0 [facility] Eosinophils/100 leukocytes in Blood by Automated count 1.5 % 0.0 - 7.0 [facility] Basophils/100 leukocytes in Blood by Automated count 0.7 % 0.0 - 2.0 [facility] %IG 0.7 % 0.0 - 0.0 H [facility] %NRBC 0.0 % 0.0 - 0.0 [facility] Neutrophils [#/volume] in Blood by Automated count 2.75 10^3/uL 2.00 - 6.90 [facility] Lymphocytes [#/volume] in Blood by Automated count 2.54 10^3/uL 0.60 - 3.40 [facility] Monocytes [#/volume] in Blood by Automated count 0.43 10^3/uL 0.00 - 0.90 [facility] Eosinophils [#/volume] in Blood by Automated count 0.09 10^3/uL 0.00 - 0.70 [facility] Basophils [#/volume] in Blood by Automated count 0.04 10^3/uL 0.00 - 0.20 [facility] #IG 0.04 10^3/uL 0.00 - 0.10 [facility] #NRBC 0.00 10^3/uL 0.00 - 0.00 [facility] MANUAL DIFF NOT INDICATED [facility] RBC MORPH NOT INDICATED [facility] spital ID Date Data Source [id number] 11/19/2020 06:01:00 AM EST [facility] [address] [place] [address] RESPIRATORY CARE REPORT ==== ---------NAME------- NUMBER SEX AGE ADMIT DISCBritt CRONINAY# F/C JULIAN Navarro [id number] 11/17/20 11/18/20 [id number] XBE E/R DATE OF : 1990 M/R# [id number] #: [id number] TR-03 LOCATION: EMERGENCY DEPT EKG [id number] COMP LETE:11/18/20 01:52 [place] [id number] PHYSICIAN: JUDY Cr Name Value Range Interpretation Code Description Data Cecy rce(s) Supporting Document(s) ID Date Data Source [id number] 11/17/2020 10:05:00 PM EST [facility] 1 OrderSheet [facility] Emergency Department [address] [place] [address] Phone #: ext- [phone] 11/17/2020 22:04 Patient: [...] Priority Entered Acknowledged InitialedMEDICATION/IV/DRIP/FLUID ORDERS 2 OrderSheet [facility] Emergency Department [address] [place] [address] Phone #: ext- [phone] 11/17/2020 22:04 Patient: [...] rce(s) Supporting Document(s) ID Date Data Source [id number] 11/17/2020 10:05:00 PM EST [facility] 1 Medication Reconciliation Report [facility] Emergency Department [address] [place] [address] Phone #: ext- [phone] 11/17/2020 22:04 [id number] Sex: M : 1990 Age: 30yWeight: 83.9 [...] rce(s) Supporting Document(s) ID Date Data Source [id number] 11/17/2020 10:05:00 PM [place] [address] Medication Administration Record [facility] Emergency Department [address] [place] [address] Phone #: [phone]- [phone] 11/17/2020 22:04 Patient: CAMILO LAWSON Sex: M : 1990 Age: 30yWeight: 83.9 kgHeight/Length: 70 inBMI: 26.5ALLERGIES: No Known Drug Allergy Date/Time Medication Administered Medication OrderedGiven ACETAMINOPHEN [PO] Acetaminophen PO 1000 mg03:11/18/2020 Dose: 1000 mg Tablets PO (NOW x1)Shweta Dorado R.N. Name Value Range Interpretation Code Description Data Cecy rce(s) Supporting Document(s) ID Date Data Source [id number] 11/17/2020 10:05:00 PM [place] [address] General Instructions [facility] Emergency Department [address] [place] [address] Phone #: ext- [phone] 11/17/2020 22:04 Patient: CAMILO LAWSON Sex: M : 1990 Age: 30yAcute bipolar disorder with the current episode being severely manic without psychosis.Recurrent moderate major depressive disorder without psychosis.(Electronically signed by Pedro Rizo 11/18/2020 05:29) Name Value Range Interpretation Code Description Data Cecy rce(s) Supporting Document(s) ID Date Data Source [id number] 11/17/2020 10:05:00 PM EST [facility] 1 Clinical Report - Nurses [facility] Emergency Department [address] [place] [address] Phone #: ext [phone] 11/17/2020 22:04 Patient: CAMILO LAWSON Sex: M : 1990 Age: 30yTRIAGEArrived by EMS. Historian: patient. ( Patient reports feeling anxious and being depressed today. Deniesany ETOH today, did some marijuana this morning. Patient has a history anxiety/depression. States that 3days ago had a psuedoseizure and was evaluated at [facility]. Denies any SI.).Triage time: 22:03 11/17/2020. Acuity: LEVEL 4.Chief Complaint: ANXIETY.Alert. No acute distress.Onset: today. He has had anxiety and describes feelings of depression. ( Patient keeps repeating thathe hates his family, "I could careless if they of covid", "I wish I never met them".).Treatment RUG CLEANER HAND:None. --22:15 11/17/20 Shweta Dorado R.N.22:08 11/17/20. BP: [...] "Do you 2 Clinical Report - Nurses [facility] Emergency Department [address] [place] [address] Phone #: ext- [phone] 11/17/2020 22:04 Patient: CAMILO LAWSON [facility]#: [id number] Sex: M : 1990 Age: 30y feel [...] this time to come back in the [facility] and wait for transfer to another facility. Patient is c ooperative at this time.). --01:13 11/18/20 Shweta Dorado R.N. ( Patient is sleeping at this time.). --01:51 11/18/20 Shweta Dorado R.N. Patient waiting for disposition. ( Patient updated on plan of care, information has been faxed to [facility] for review. Patient is cooperative at [...] will make 3 Clinical Report - Nurses [facility] Emergency Department [address] [place] [address] Phone #: ext- [phone] 11/17/2020 22:04 Patient: CAMILO LAWSON Sex: M : 1990 Age: 30y MD aware.). Call light placed in reach. --03:12 11/18/20 Jordin Hitchcock 03:27 11/18/2020 Acetaminophen PO Tablets 1000 mg given. Allergies verified. Information reviewed with patient. --03:27 11/18/20 Shweta Dorado R.N. ( Attempted to call [facility] regarding transfer.). --04:45 11/18/20 Shweta Dorado R.N.DISPOSITION / DISCHARGE Departure time: 05:37 11/18/2020. Condition at departure: unchanged. Transferred to [facility]. Visit overview, summary of care (CCDA), [...] rce(s) Supporting Document(s) ID Date Data Source [id number] 11/17/2020 10:05:00 PM [facility] 1 Clinical Report - Physicians/Mid Levels [facility] Emergency Department [address] [place] [address] Phone #: ext- [phone] 11/17/2020 22:04 Patient: CAMILO LAWSON Sex: M [...] Surgery. 2 Clinical Report - Physicians/Mid Levels [facility] Emergency Department [address] [place] [address] Phone #: ext- [phone] 11/17/2020 22:04 [id number] Sex: M : 1990 Age: 30y Medications: [...] # _[id number] 11/18/20.0039.AB . KIT EXP DATE _[id number] 11/18/20.0039.AB . NORMAL RANGE IS NOT DETECTEDNEGATIVE [...] DIFF 3 Clinical Report - Physicians/Mid Levels [facility] Emergency Department [address] [place] [address] Phone #: ext- [phone] 11/17/2020 22:04 Patient: [...] Male GFR Interprentation 20-49 yrs >60 mL/min Oveyie29-34 yrs >56 mL/min Normal 60-69 yrs >49 mL/min Normal 70-79yrs>42 mL/min Normal 80 and above >35 mL/min Normal Female GFRInterpretation 20-39 yrs >60 mL/min Normal 40-49 yrs >58 mL/minNormal 50-59 yrs >51 mL/min Normal 60-69 yrs >45 mL/min Zfhmik78-36 yrs >39 mL/min Normal 80 and above >32 mL/min Normal 4 Clinical Report - Physicians/Mid Levels [facility] Emergency Department [address] [place], [place] [address] Phone #: ext- [phone] 11/17/2020 22:04 Patient: [...] OCD. He is requesting to speak with health and social care teacher/psychiatrist. 00:26 11/18/20. Patient informed that he is waiting for remainder of results and then his case will be brought to [facility]'s attention for psych evaluation. 00:49 11/18/20. Patient agreed to return back to ED. 30 mins ago he decided to leave the ED because he was tired of waiting. Patient is medically cleared. 5 Clinical Report - Physicians/Mid Levels [facility] Emergency Department [address] [place] [address] Phone #: ext- [phone] 11/17/2020 22:04 Patient: CAMILO LAWSON Sex: M : 1990 Age: 30y 05:26 11/18/20. Patient accepted to [facility]. Dr. Villagomez is the accepting physician. Disposition: Benefits, risks and alternatives to transfer explained to patient. Transferred to [facility]. Summary of care (CCDA) pro vided to transfer facility.CLINICAL IMPRESSION Acute bipolar disorder with the current episode being severely manic without psychosis. Recurrent moderate major depressive disorder without psychosis.(Electronically signed by Pedro Rizo 11/18/2020 05:29) Name Value Range Interpretation Code Description Data Cecy rce(s) Supporting Document(s) ID Date Data Source [id number] 11/17/2020 10:05:00 PM [facility] Shahid for CAMILO LAWSON VisitID: [id number] Date: 2:39Faxed chart to [facility] for psych review at 0130(Electronically signed by Justin Maldonado - 11/18/2020 2:39) Name Value Range Interpretation Code Description [facility] Document(s) ID Date Data Source [id number] 11/18/2020 12:39:00 AM [facility] NOT DETECTEDNOT DETECTED{ PROC EDURAL CONTROL VALID KIT LOT # _[id number] 11/18/20.0039.AB . KIT EXP DATE _[id number] 11/18/20.0039.AB . NORMAL RANGE IS NOT DETECTEDNEGATIVE RESULTS SHOULD BE TREATED PRESUMPTIVE AND, IF INCONSISTENT WITHCLINICAL SIGNS AND SYMPTOMS OR NECESSARY FOR PATIENT MANAGEMENT, SHOULD BETESTED WITH DIFFERENT AUTHORIZED OR CLEARED MOLECULAR TESTS. NEGATIVE RESULTSDO NOT PRECLUDE SARS-CoV-2 INFECTION AND SHOULD NOT BE USED THE SOLE BASISFOR PATIENT MANAGEMENT DECISIONS. Name Value Range Interpretation Code Description Data [facility] rce(s) Supporting Document(s) ID Date Data Source [id number] 11/17/2020 11:46:00 PM [facility] Name Value Range Interpretation Code Description Data [facility](s) Supporting Document(s) DRUG SCREEN URINE [facility] URINE DRUG SCREEN Amphetamine [Presence] in Urine by Screen method NEGATIVE NORMAL: N EGATIVE [facility] BARBITURATES NEGATIVE NORMAL: NEGATIVE [facility] BENZO NEGATIVE NORMAL: NEGATIVE [facility] COCAINE NEGATIVE NORMAL: NEGATIVE [facility] Tetrahydrocannabinol [Presence] in Urine NEGATIVE NORMAL: NEGATIVE [facility] OPIATES NEGATIVE NORMAL: NEGATIVE [facility] Phencyclidine [Presence] in Urine by Screen method NEGATIVE NOR MAL: NEGATIVE [facility] \\BLDo\\URINE DRUG SCR EEN INTERPRETATION\\BLDx\\ THE CUTOFFF LEVELS FOR DETECTION ARE FOLLOWS: AMPHETAMINES 1000 ng/ml BARBITUARATES 200 ng/ml BENZODIAZEPINES 100 ng/ml THC 50 ng/ml PHENCYCLIDINE 25 ng/ml OPIATES 300 ng/ml COCAINE 300 ng/ml ALL POSITIVES ARE CONSIDERED PRESUMPTIVE POSITIVE CONFIRMATION WILL BE PERFORMED AT PHYSICIAN REQUEST. ID Date Data Source [id number] 11/17/2020 11:31:00 PM [facility] Name Value Range Interpretation Code Description Data Cecy rce(s) Supporting Document(s) SALICYLATE <0.3 mg/dL 2.0 - 20.0 L [facility] p[facility] ID Date Data Source [id number] 11/17/2020 11:31:[address] [facility] Name Value Range Interpretation Code Description Data Cecy rce(s) Supporting Document(s) COMPREHENSIVE METABOLIC PANEL [facility] COMPREHENSIVE METABOLIC PANEL Sodium [Moles/volume] in Serum or Plasma 141 mEq/L 134 - 153 [facility] Potassium [Moles/volume] in Serum or Plasma 3.8 mEq/L 3.6 - 5.0 [facility] Chloride [Moles/volume] in Serum or Plasma 104 mEq/L 98 - 107 [facility] Carbon dioxide, total [Moles/volume] in Serum or Plasma 23 MEQ/L 22 - 30 [facility] Glucose [Mass/volume] in Serum or Plasma 116 MG/DL 70 - 99 H [facility] BUN 8 MG/DL 7 - [facility] Creatinine [Mass/volume] in Serum or Plasma 0.6 MG/DL 0.7 - 1.5 L [facility] BUN/CREAT 13 8 - 27 [facility] Protein [Mass/volume] in Serum or Plasma 6.1 G/DL 6.3 - 8.2 L [facility] Albumin [Mass/volume] in Serum or Plasma 4.8 G/DL 3.9 - 5.0 [facility] Globulin [Mass/volume] in Serum by calculation 1.3 GM/DL 2.4 - 3.2 L [facility] A/G RATIO 3.7 0.8 - 2.0 H [facility] Calcium [Mass/volume] in Serum or Plasma 9.0 MG/DL 8.4 - 10.2 [facility] Bilirubin.total [Mass/volume] in Serum or Plasma <0.7 MG/DL 0.2 - 1.3 [facility] Alkaline phosphatase [Enzymatic activity/volume] in Serum or Plasma 95 U/L 38 - 126 [facility] Aspartate aminotransferase [Enzymatic activity/volume] in Serum or Plasma 27 U/L 5 - 40 [facility] Alanine aminotransferase [Enzymatic activity/volume] in Seru m or Plasma 24 U/L 7 - 56 [facility] Anion gap 3 in Serum or Plasma 14.0 mmol/L 8.0 - 16.0 [facility] AGE 30 yrs [facility] Hospit al NON-AA GFR >60 mL/min [facility] Hosp ital AFR AMER GFR >60 mL/min [facility] Ho spital Male GFR In terprentation [...] >32 mL/min Normal ID Date Data Source [id number] 11/17/2020 11:31:00 PM [facility] Name Value Range Interpretation Code Description Data Cecy rce(s) Supporting Document(s) Ethanol [Moles/volume] in Blood <10.0 MG/DL [facility] ALCOHOL % 0.01 % 0.00 - 0.01 [facility] ital *FOR MEDICAL PURPOSES ONLY * ID Date Data Source [id number] 11/17/2020 11:31:00 PM [facility] Name Value Range Interpretation Code Description Data Cecy rce(s) Supporting Document(s) Thyrotropin [Units/volume] in Serum or Plasma by Detec tion limit <= 0.05 mIU/L 1.06 uIU/mL 0.47 - 5.01 [facility] ID Date Data Source [id number] 11/17/2020 10:56:[address] [facility] Value Range Interpretation Code Description Data Cecy rce(s) Supporting Document(s) CBC W/AUTOMATED DIFF [facility] COMPLETE BLOOD COUNT Leukocytes [#/volume] in Blood by Automated count 8.3 10^3/uL 4.2 - 1 1.0 [facility] Erythrocytes [#/volume] in Blood by Automated count 5.28 10^6/uL 4. 50 - 6.30 [facility] Hemoglobin [Mass/volume] in Blood 16.1 g/dL 14.0 - 16.0 H [facility] Hematocrit [Volume Fraction] of Blood by Automated count 46.5 % 4 1.0 - 51.0 [facility] Erythrocyte mean corpuscular volume [Entitic volume] by Auto mated count 88.1 fL 80.0 - 94.0 [facility] Erythrocyte mean corpuscular hemoglobin [Entitic mass] by Automated count 30.5 pg 27.0 - 34.0 [facility] Erythrocyte mean corpuscular hemoglobin concentration [Mass/volume] by Automated count 34.6 g/dL 31.0 - 36.0 [facility] Erythrocyte distribution width [Ratio] by Automated count 12.4 % 11.5 - 14.8 [facility] Platelets [#/volume] in Blood by Automated count 299 10^3/uL 150 - 45 0 [facility] Platelet mean volume [Entitic volume] in Blood by Automated count 9.2 fL 7.4 - 10.4 [facility] Neutrophils/100 leukocytes in Blood by Automated count 68.8 % 37. 0 - 80.0 [facility] Lymphocytes/100 leukocytes in Blood by Manual count 21.8 % 25.0 - 40.0 L [facility] Monocytes/100 leukocytes in Blood by Automated count 7.4 % 3.0 - 8.0 [facility] Eosinophils/100 leukocytes in Blood by Automated count 0.7 % 0.0 - 7.0 [facility] Basophils/100 leukocytes in Blood by Automated count 0.8 % 0.0 - 2.0 [facility] %IG 0.5 % 0.0 - 0.0 [facility] %NRBC 0.0 % 0.0 - 0.0 [facility] al Neutrophils [#/volume] in Blood by Automated count 5.69 10^3/uL 2.00 - 6.90 [facility] Lymphocytes [#/volume] in Blood by Automated count 1.80 10^3/uL 0.60 - 3.40 [facility] Monocytes [#/volume] in Blood by Automated count 0.61 10^3/uL 0.00 - 0.90 [facility] Eosinophils [#/volume] in Blood by Automated count 0.06 10^3/uL 0.00 - 0.70 [facility] Basophils [#/volume] in Blood by Automated count 0.07 10^3/uL 0.00 - 0.20 [facility] #IG 0.04 10^3/uL 0.00 - 0.10 [facility] #NRBC 0.00 10^3/uL 0.00 - 0.00 [facility] MANUAL DIFF NOT INDICATED [facility] RBC MORPH NOT INDICATED [facility] spital ID Date Data Source [id number] 11/18/2020 01:40:00 AM [facility] Name Value Range Interpretation Code Description Data Cecy rce(s) Supporting Document(s) Acetaminophen [Presence] in Urine <5.0 UG/ML 0.0 - 30.0 [facility] ID Date Data Source [id number] 09/06/2020 07:03:00 PM [facility] 1 OrderSheet [facility] Emergency Department [address] [place] [address] Phone #: ext- [phone] 09/06/2020 19:02 Patient: [...] IV Prudencio Chapin R.N.Contrast Physician;(Oxygen?(No)) 2 OrderSheet [facility] Emergency Department [address] [place] [address] Phone #: ext- [phone] 09/06/2020 19:02 Patient: CAMILO LAWSON Sex: M : 1990 Age: 29y(IV?(No)) NOTES: Rectal pain Reason for Study: Abdominal PainMEDICATION/IV/DRIP/FLUID ORDERSOrder Description Priority Entered Acknowledged InitialedGENERAL ORDERSOrder Description Priority Entered Acknowledged Initialed[Electronically signed by Prudencio Cruz (23:09/06/2020)][Electronically signed by Peggy Dye R.N. (09/06/2020)][Electronically locked by Peggy Dye R.N. (09/06/2020)] Name Value Range Interpretation Code Description Data Cecy rce(s) Supporting Document(s) ID Date Data Source [id number] 09/06/2020 07:03:00 PM [facility] 1 Medication Reconciliation Report [facility] Emergency Department [address] [place] [address] Phone #: ext- [phone] 09/06/2020 19:02 Patient: [...] rce(s) Supporting Document(s) ID Date Data Source [id number] 09/06/2020 07:03:00 PM [facility] 1 Medication Administration Record [facility] Emergency Department [address] [place] [address] Phone #: ext- [phone] 19:02 Patient: CAMILO LAWSON Sex: M : 1990 Age: 29yWeight: 90.2 kgHeight/Length: 66 inBMI: 32.1ALLERGIES: No Known Drug AllergyDate/Time Medication Administered Medication Ordered Name Value Range Interpretation Code Description Data Cecy rce(s) Supporting Document(s) ID Date Data Source [id number] 09/06/2020 07:03:00 PM [facility] 1 General Instructions [facility] Emergency Department [address] [place] [address] Phone #: ext [phone] 09/06/2020 19:02 Patient: CAMILO LAWSON Sex: M [...] rce(s) Supporting Document(s) ID Date Data Source [id number] 09/06/2020 07:03:00 PM EST [facility] 1 Clinical Report - Nurses [facility] Emergency Department [address] [place] [address] Phone #: ext- [phone] 09/06/2020 19:02 Patient: [...]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 MEQ/L 22 - 30 [facility] Glucose [Mass/volume] in Serum or Plasma 106 MG/DL 65 - 110 [facility] BUN 14 MG/DL 7 - 21 [facility] al Creatinine [Mass/volume] in Serum or Plasma 0.6 MG/DL 0.7 - 1.5 L [facility] BUN/CREAT 23 8 - 27 [facility] Protein [Mass/volume] in Serum or Plasma 6.6 G/DL 6.3 - 8.2 [facility] Albumin [Mass/volume] in Serum or Plasma 4.3 G/DL 3.9 - 5.0 [facility] Globulin [Mass/volume] in Serum by calculation 2.3 GM/DL 2.4 - 3.2 L [facility] A/G RATIO 1.9 0.8 - 2.0 [facility] Calcium [Mass/volume] in Serum or Plasma 9.3 MG/DL 8.4 - 10.2 [facility] Bilirubin.total [Mass/volume] in Serum or Plasma 0.8 MG/DL 0.2 - 1.3 [facility] Alkaline phosphatase [Enzymatic activity/volume] in Serum or Plasma 108 U/L 38 - 126 [facility] Aspartate aminotransferase [Enzymatic activity/volume] in Serum or Plasma 17 U/L 5 - 40 [facility] Alanine aminotransferase [Enzymatic activity/volume] in Seru m or Plasma 18 U/L 7 - 56 [facility] Anion gap 3 in Serum or Plasma 7.0 mmol/L 8.0 - 16.0 L [facility] AGE 29 yrs [facility] Hospit al NON-AA GFR >60 mL/min [facility] Hosp ital AFR AMER GFR >60 mL/min [facility] Ho spital Male GFR In terprentation [...] >32 mL/min Normal ID Date Data Source [id number] 08/29/2020 01:45:00 AM [facility] Name Value Range Interpretation Code Description Data Cecy rce(s) Supporting Document(s) Lactate [Moles/volume] in Serum or Plasma 1.0 MMOL/L 0.2 - 2.2 [facility] ID Date Data Source [id number] 08/29/2020 01:42:00 AM [facility] Name Value Range Interpretation Code Description Data Cecy rce(s) Supporting Document(s) CBC W/AUTOMATED DIFF [facility] COMPLETE BLOOD COUNT Leukocytes [#/volume] in Blood by Automated count 8.4 10^3/uL 4.2 - 1 1.0 [facility] Erythrocytes [#/volume] in Blood by Automated count 4.97 10^6/uL 4. 50 - 6.30 [facility] Hemoglobin [Mass/volume] in Blood 15.1 g/dL 14.0 - 16.0 [facility] Hematocrit [Volume Fraction] of Blood by Automated count 43.8 % 4 1.0 - 51.0 [facility] Erythrocyte mean corpuscular volume [Entitic volume] by Auto mated count 88.1 fL 80.0 - 94.0 [facility] Erythrocyte mean corpuscular hemoglobin [Entitic mass] by Automated count 30.4 pg 27.0 - 34.0 [facility] Erythrocyte mean corpuscular hemoglobin concentration [Mass/volume] by Automated count 34.5 g/dL 31.0 - 36.0 [facility] Erythrocyte distribution width [Ratio] by Automated count 12.6 % 11.5 - 14.8 [facility] Platelets [#/volume] in Blood by Automated count 258 10^3/uL 150 - 45 0 [facility] Platelet mean volume [Entitic volume] in Blood by Automated count 9.9 fL 7.4 - 10.4 [facility] Neutrophils/100 leukocytes in Blood by Automated count 59.4 % 37. 0 - 80.0 [facility] Lymphocytes/100 leukocytes in Blood by Manual count 28.6 % 25.0 - 40.0 [facility] Monocytes/100 leukocytes in Blood by Automated count 8.9 % 3.0 - 8.0 H [facility] Eosinophils/100 leukocytes in Blood by Automated count 2.1 % 0.0 - 7.0 [facility] Basophils/100 leukocytes in Blood by Automated count 0.6 % 0.0 - 2.0 [facility] %IG 0.4 % 0.0 - 0.0 [facility] %NRBC 0.0 % 0.0 - 0.0 [facility] al Neutrophils [#/volume] in Blood by Automated count 4.99 10^3/uL 2.00 - 6.90 [facility] Lymphocytes [#/volume] in Blood by Automated count 2.40 10^3/uL 0.60 - 3.40 [facility] Monocytes [#/volume] in Blood by Automated count 0.75 10^3/uL 0.00 - 0.90 [facility] Eosinophils [#/volume] in Blood by Automated count 0.18 10^3/uL 0.00 - 0.70 [facility] Basophils [#/volume] in Blood by Automated count 0.05 10^3/uL 0.00 - 0.20 [facility] #IG 0.03 10^3/uL 0.00 - 0.10 [facility] H ospital #NRBC 0.00 10^3/uL 0.00 - 0.00 [facility] ospital MANUAL DIFF NOT INDICATED [facility] RBC MORPH NOT INDICATED [facility] Ho spital ID Date Data Source [id number] 08/29/2020 01:40:00 AM EST [facility] Name Value Range Interpretation Code Description Data Cecy rce(s) Supporting Document(s) DRUG SCREEN URINE [facility] URINE DRUG SCREEN Amphetamine [Presence] in Urine by Screen method NEGATIVE NORMAL: N EGATIVE [facility] BARBITURATES NEGATIVE NORMAL: NEGATIVE [facility] BENZO NEGATIVE NORMAL: NEGATIVE [facility] COCAINE NEGATIVE NORMAL: NEGATIVE [facility] Tetrahydrocannabinol [Presence] in Urine NEGATIVE NORMAL: NEGATIVE [facility] OPIATES NEGATIVE NORMAL: NEGATIVE [facility] Phencyclidine [Presence] in Urine by Screen method NEGATIVE NOR MAL: NEGATIVE [facility] \\BLDo\\URINE DRUG SCR EEN INTERPRETATION\\BLDx\\ THE CUTOFFF LEVELS FOR DETECTION ARE FOLLOWS: AMPHETAMINES 1000 ng/ml BARBITUARATES 200 ng/ml BENZODIAZEPINES 100 ng/ml THC 50 ng/ml PHENCYCLIDINE 25 ng/ml OPIATES 300 ng/ml COCAINE 300 ng/ml ALL POSITIVES ARE CONSIDERED PRESUMPTIVE POSITIVE CONFIRMATION WILL BE PERFORMED AT PHYSICIAN REQUEST. ID Date Data Source [id number] 08/29/2020 01:25:00 AM [facility] Name Value Range Interpretation Code Description Data Cecy rce(s) Supporting Document(s) [facility] COL[facility] yellow NORMAL: Yellow [facility]sp[facility] CLARITY clear NORMAL: Clear [facility] spital Specific gravity of Urine by Test strip 1.010 1.001 - 1.030 [facility] pH 6.5 5 - 9 [facility] al Glucose [Mass/volume] in Urine by Test strip NORM NORMAL: Negat delia [facility] Bilirubin.total [Presence] in Urine by Test strip NEG NORMAL: Negative [facility] Ketones [Presence] in Urine by Test strip NEG NORMAL: Negative [facility] Protein [Mass/volume] in Urine by Test strip NEG NORMAL: Negat delia [facility] Nitrite [Presence] in Urine by Test strip NEG NORMAL: Negative [facility] BLOOD NEG NORMAL: Negative [facility] Leukocyte esterase [Presence] in Urine by Test strip NEG [place] L: Negative [facility] Urobilinogen [Mass/volume] in Urine by Test strip NOR less alida n 1.0 mg/dL [facility] MICROSCOPIC Not Indicate [facility] ospital ID Date Data Source [id number] 08/19/2020 01:52:52 PM EDT [facility] Vital SignsBlood Pressure: 138/82 Patient History Medical History:Brain TumorSeizure DisorderDepressionHx of kidney stonesBipolarSurgical History:Partial lobectomyFamily History:No known family historySocial/Personal History: Smoking Status: current some day smokerDo you vape? NoCurrent Problems: Normal examination (ICD-V65.5) (VKJ40-R20.1)Dental caries/Impaction of teeth (ICD-521.00) (TTR77-Q69.9)Contact dermatitis and other eczema, unspecified cause (ICD-692.9) (FAF87-C67.9)Depression (ICD-311) (CLC89-G20.9)Seizure Disorder (ICD-780.39) (FSK05-T37.9)Brain Tumor (ICD-191.9) (PIV61-K18.9)Problem list reviewed during this update.Current Medications: SEROQUEL [...] Known Allergies (updated 08/19/2020) Orders:Oral Surgery Referral [[id number]] Clinical Visit Summary Declined Name Value Range Interpretation Code Description Data Cecy rce(s) Supporting Document(s) ID Date Data Source [id number] 08/14/2020 07:17:00 PM EDT [facility] 1 Medication Reconciliation Report [facility] Emergency Department [address] [place] [address] Phone #: ext- [phone] 08/14/2020 19:09 Patient: [...] rce(s) Supporting Document(s) ID Date Data Source [id number] 08/14/2020 07:17:00 PM EDT [facility] 1 Medication Administration Record [facility] Emergency Department [address] [place] [address] Phone #: ext- [phone] 19:09 Patient: CAMILO LAWSON Sex: M : 1990 Age: 29yWeight: 81.6 kgHeight/Length: 72 inBMI: 24.4ALLERGIES: No Known Drug AllergyDate/Time Medication Administered Medication Ordered Name Value Range Interpretation Code Description Data Cecy rce(s) Supporting Document(s) ID Date Data Source [id number] 08/14/2020 07:17:00 PM EDT [facility] 1 General Instructions [facility] Emergency Department [address] [place] [address] Phone #: ext- [phone] 08/14/2020 19:09 Patient: CAMILO LAWSON Sex: M : 1990 Age: 29y Anxiety reaction. No hyperventilation.INSTRUCTIONS Warnings: GENERAL WARNINGS: Return or contact your physician immediately if your condition worsens or changes unexpectedly, if not improving as expected, or if other problems arise. Understanding of the discharge instructions verbalized by patient. Follow-up with: [facility], , , [address] [place], [address] Follow up in one week. Call for [...] may experience: Dry mouth 2 General Instructions [facility] Emergency Department [address] [place] [address] Phone #: ext- [phone] 08/14/2020 19:09 Patient: [...] Also, there are certain 3 General Instructions [facility] Emergency Department [address] [place] [address] Phone #: ext- [phone] 08/14/2020 19:09 Patient: [...] andtemporary medicine to help you manage stress.Call [id number] [phone] if any of these happen: Trouble breathing [...] and mild pain reliever 4 General Instructions [facility] Emergency Department [address] [place], [place] [id number] Phone #: ext- [phone] 08/14/2020 19:09 Patient: CAMILO LAWSON Sex: M : 1990 Age: 29y [id number] [employer]. [address] [place] [address]. All rights reserved. This information is not intended as asubstitute for professional medical care. Always follow your healthcare professional's instructions. You have been given the following additional information: Anxiety Reaction(Electronically signed by Pedro Rizo, 08/14/2020 20:15) Name Value Range Interpretation Code Description Data Cecy rce(s) Supporting Document(s) ID Date Data Source [id number] 08/14/2020 07:17:00 PM EDT [facility] 1 Clinical Report - Nurses [facility] Emergency Department [address] [place] [address] Phone #: ext- [phone] 08/14/2020 19:09 Patient: [...] no barriers. 2 Clinical Report - Nurses [facility] Emergency Department [address] [place] [address] Phone #: ext- [phone] 08/14/2020 19:09 Patient: CAMILO LAWSON Sex: M : 1990 Age: 29y FALL RISK ASSESSMENT: Fall risk assessment completed. No risk factors identified. SKIN INTEGRITY ASSESSMENT: Skin integrity risk assessment completed. No skin integrity risk identified. --19:30 08/14/20 Alfonso Buck R.N. FAMILY HX: No significant family medical history. --19:53 08/14/20 Pedro Rizo.PHYSICAL [id number] 08/14/20. Ambulatory to room.GENERAL / NEURO / [...] Patient verbalized understanding. Written instructions provided in [employer]. The patient was discharged home and unaccompanied at time of discharge. He left ambulatory and via taxi. 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 --20:04 08/14/20 Carito Barry R.N. 20:03 08/14/20. BP: 141/93. MAP: 109. HR: 81. RR: 16. O2 saturation: 98%. Temp: 97.9 F. Pain level now: 010. --20:04 08/14/20 Carito Barry R.N.Locked/Released at 08/14/2020 20:04 by Carito Barry R.N. Name Value Range Interpretation Code Description Data Cecy rce(s) Supporting Document(s) ID Date Data Source [id number] 08/14/2020 07:17:00 PM EDT [facility] 1 Clinical Report - Physicians/Mid Levels [facility] Emergency Department [address] [place] [address] Phone #: ext- [phone] 08/14/2020 19:09 Patient: [...] alone. 2 Clinical Report - Physicians/Mid Levels [facility] Emergency Department [address] [place] [address] Phone #: ext- [phone] 08/14/2020 19:09 Patient: CAMILO LAWSON Sex: M [...] patient. 3 Clinical Report - Physicians/Mid Levels [facility] Emergency Department [address] [place] [address] Phone #: ext- [phone] 08/14/2020 19:09 Patient: CAMILO LAWSON Sex: M : 1990 Age: 29y Follow-up with: [facility], , , [address] [place], [address] Follow up in one week. Call for an appointment.(Electronically signed by Pedro Rizo, 08/14/2020 20:15) Name Value Range Interpretation Code Description Data Cecy rce(s) Supporting Document(s) Procedure Social History Code Duration Value Status Description Data Source(s ) Smoking 07/20/2021 12:00:00 AM EDT Smoker, current status unkn own completed Smoker, current status unknown [facility] ([facility]) Smoking 07/05/2021 12:00:00 AM EDT Smoker, current status unkn own completed Smoker, current status unknown [facility] ([facility]) Smoking 03/29/2021 12:00:00 AM EDT Smoker, current status unkn own completed Smoker, current status unknown [facility] ([facility]) Smoking 02/17/2021 12:00:00 AM EDT Smoker, current status unkn own completed Smoker, current status unknown [facility] ([facility]) Smoking 01/01/2021 12:00:00 AM EST Smoker, current status unkn own completed Smoker, current status unknown [facility] ([facility]) Smoking 11/17/2020 12:00:00 AM EST Smoker, current status unkn own completed Smoker, current status unknown [facility] ([facility]) Smoking 11/02/2020 12:00:00 AM EST Smoker, current status unkn own completed Smoker, current status unknown [facility] ([facility]) Smoking 10/20/2020 12:00:00 AM EST Smoker, current status unkn own completed Smoker, current status unknown [facility] ([facility]) Smoking 09/24/2020 12:00:00 AM EST Smoker, current status unkn own completed Smoker, current status unknown [facility] ([facility]) Smoking 09/02/2020 12:00:00 AM EST Smoker, current status unkn own completed Smoker, current status unknown [facility] ([facility]) Smoking 08/19/2020 12:00:00 AM EDT Smoker, current status unkn own completed Smoker, current status unknown [facility] ([facility]) Smoking 08/18/2020 12:00:00 AM EDT Smoker, current status unkn own completed Smoker, current status unknown [facility] ([facility]) Smoking 07/29/2020 12:00:00 AM EDT Smoker, current status unkn own completed Smoker, current status unknown [facility] ([facility]) Smoking 07/22/2020 12:00:00 AM EDT Smoker, current status unkn own completed Smoker, current status unknown [facility] ([facility]) Smoking 07/10/2020 12:00:00 AM EDT Smoker, current status unkn own completed Smoker, current status unknown [facility] ([facility])
[2021-08-18] MEDS ORDERED: LORazepam 2 MG TAB PO PRN (16:35)
--- OUTSIDE RECORDS SUMMARY | 2021-08-18 16:49 | CCD ---
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 depressed. 06:36 12/18/20. Patient awake and requesting to go to [facility]. "Send me to [facility] or send me home" Patient's case discussed with ED physician at [facility] who is familiar with the patient. Dr. Sandra agrees to accept to patient to the ED. 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, associated with schizophrenia.(Electronically signed by Pedro Rizo 12/18/2020 06:44) Name Value Range Interpretation Code Description Data Cecy rce(s) Supporting Document(s) ID Date Data Source [id number] 12/18/2020 04:31:00 AM EST [facility] Name Value Range Interpretation Code Description Data Cecy rce(s) Supporting Document(s) Ethanol [Moles/volume] in Blood 100.0 MG/DL [facility] ALCOHOL % 0.10 % 0.00 - 0.01 H [facility] ital *FOR MEDICAL PURPOSES ONLY * ID Date Data Source [id number] 12/17/2020 08:23:00 PM EST [facility] Name Value Range Interpretation Code Description Data Cecy rce(s) Supporting Document(s) [facility] COL[facility] yellow NORMAL: Yellow [facility] ospital CLARITY clear NORMAL: Clear [facility] Ho spital Specific gravity of Urine by Test strip 1.010 1.001 - 1.030 [facility] pH 7 5 - 9 [facility] al Glucose [Mass/volume] in Urine by Test strip NORM NORMAL: Negat [facility] Bilirubin.total [Presence] in Urine by Test strip NEG NORMAL: Negative [facility] Ketones [Presence] in Urine by Test strip NEG NORMAL: Negative [facility] Protein [Mass/volume] in Urine by Test strip NEG NORMAL: Negat [facility] Nitrite [Presence] in Urine by Test strip NEG NORMAL: Negative [facility] BLOOD NEG NORMAL: Negative [facility] Leukocyte esterase [Presence] in Urine by Test strip NEG [place] L: Negative [facility] Urobilinogen [Mass/volume] in Urine by Test strip NOR less alida n 1.0 mg/dL [facility] MICROSCOPIC Not Indicate [facility] H ospital ID Date Data Source [id number] 12/17/2020 07:58:00 PM [facility] Name Value Range Interpretation Code Description Data Cecy rce(s) Supporting Document(s) DRUG SCREEN URINE [facility] URINE DRUG SCREEN Amphetamine [Presence] in Urine by Screen method NEGATIVE NORMAL: N EGATIVE [facility] BARBITURATES NEGATIVE NORMAL: NEGATIVE [facility] BENZO NEGATIVE NORMAL: NEGATIVE [facility] COCAINE NEGATIVE NORMAL: NEGATIVE [facility] Tetrahydrocannabinol [Presence] in Urine NEGATIVE NORMAL: NEGATIVE [facility] OPIATES NEGATIVE NORMAL: NEGATIVE [facility] Phencyclidine [Presence] in Urine by Screen method NEGATIVE NOR MAL: NEGATIVE [facility] \\BLDo\\URINE DRUG SCR EEN INTERPRETATION\\BLDx\\ THE CUTOFFF LEVELS FOR DETECTION ARE FOLLOWS: AMPHETAMINES 1000 ng/ml BARBITUARATES 200 ng/ml BENZODIAZEPINES 100 ng/ml THC 50 ng/ml PHENCYCLIDINE 25 ng/ml OPIATES 300 ng/ml COCAINE 300 ng/ml ALL POSITIVES ARE CONSIDERED PRESUMPTIVE POSITIVE CONFIRMATION WILL BE PERFORMED AT PHYSICIAN REQUEST. ID Date Data Source [id number] 12/17/2020 07:20:00 PM EST [facility] Name Value Range Interpretation Code Description Data Cecy rce(s) Supporting Document(s) COVID19 Case rprt NOT DETECTED [facility] This lab was ordered by [facility] and reported by [facility]. ID Date Data Source [id number] 12/17/2020 08:23:00 PM EST [facility] Name Value Range Interpretation Code Description Data Cecy rce(s) Supporting Document(s) Thyrotropin [Units/volume] in Serum or Plasma by Detec tion limit <= 0.05 mIU/L 0.47 uIU/mL 0.47 - 5.01 [facility] ID Date Data Source [id number] 12/17/2020 08:10:00 PM EST [facility] Name Value Range Interpretation Code Description Data Cecy rce(s) Supporting Document(s) Ethanol [Moles/volume] in Blood 265.0 MG/DL [facility] ALCOHOL % 0.27 % 0.00 - 0.01 H [facility] ital *FOR MEDICAL PURPOSES ONLY * ID Date Data Source [id number] 12/17/2020 08:10:00 PM EST [facility] Name Value Range Interpretation Code Description Data Cecy rce(s) Supporting Document(s) BASIC METABOLIC PANEL [facility] BASIC METABOLIC PANEL Sodium [Moles/volume] in Serum or Plasma 142 mEq/L 134 - 153 [facility] Potassium [Moles/volume] in Serum or Plasma 3.3 mEq/L 3.6 - 5.0 L [facility] Chloride [Moles/volume] in Serum or Plasma 104 mEq/L 98 - 107 [facility] Carbon dioxide, total [Moles/volume] in Serum or Plasma 28 MEQ/L 22 - 30 [facility] Glucose [Mass/volume] in Serum or Plasma 91 MG/DL 70 - 99 [facility] BUN 5 MG/DL 7 - 21 [facility] Creatinine [Mass/volume] in Serum or Plasma 0.6 MG/DL 0.7 - 1.5 L [facility] BUN/CREAT 8 8 - 27 [facility] al Calcium [Mass/volume] in Serum or Plasma 9.0 MG/DL 8.4 - 10.2 [facility] Anion gap 3 in Serum or Plasma 10.0 mmol/L 8.0 - 16.0 [facility] AGE 30 yrs [facility] al AFR AMER GFR >60 mL/min [facility] Ho spital NON-AA GFR >60 mL/min [facility] ital Male GFR Inter prentation [...] >32 mL/min Normal ID Date Data Source [id number] 12/17/2020 08:10:00 PM [facility] Name Value Range Interpretation Code Description Data Cecy rce(s) Supporting Document(s) SALICYLATE <0.3 mg/dL 2.0 - 20.0 L [facility] ID Date Data Source [id number] 12/17/2020 08:10:00 PM [facility] Name Value Range Interpretation Code Description Data Cecy rce(s) Supporting Document(s) Acetaminophen [Presence] in Urine <5.0 UG/ML 0.0 - 30.0 [facility] ID Date Data Source [id number] 12/17/2020 07:48:00 PM [facility] NOT DETECTEDNOT DETECTED{ PROC EDURAL CONTROL VALID KIT LOT # _[id number] 12/17/20.JOVANNA. KIT EXP DATE _[id number] 12/17/20.JOVANNA. NORMAL RANGE IS NOT DETECTEDNEGATIVE RESULTS SHOULD BE TREATED PRESUMPTIVE AND, IF INCONSISTENT WITHCLINICAL SIGNS AND SYMPTOMS OR NECESSARY FOR PATIENT MANAGEMENT, SHOULD BETESTED WITH DIFFERENT AUTHORIZED OR CLEARED MOLECULAR TESTS. NEGATIVE RESULTSDO NOT PRECLUDE SARS-CoV-2 INFECTION AND SHOULD NOT BE USED THE SOLE BASISFOR PATIENT MANAGEMENT DECISIONS. Name Value Range Interpretation Code Description Data [facility](s) Supporting Document(s) ID Date Data Source [id number] 12/17/2020 07:34:00 PM EST [facility] Name Value Range Interpretation Code Description Data [facility](s) Supporting Document(s) CBC W/AUTOMATED DIFF [facility] COMPLETE BLOOD COUNT Leukocytes [#/volume] in Blood by Automated count 5.9 10^3/uL 4.2 - 1 1.0 [facility] Erythrocytes [#/volume] in Blood by Automated count 5.71 10^6/uL 4. 50 - 6.30 [facility] Hemoglobin [Mass/volume] in Blood 18.0 g/dL 14.0 - 16.0 H [facility] Hematocrit [Volume Fraction] of Blood by Automated count 50.9 % 4 1.0 - 51.0 [facility] Erythrocyte mean corpuscular volume [Entitic volume] by Auto mated count 89.1 fL 80.0 - 94.0 [facility] Erythrocyte mean corpuscular hemoglobin [Entitic mass] by Automated count 31.5 pg 27.0 - 34.0 [facility] Erythrocyte mean corpuscular hemoglobin concentration [Mass/volume] by Automated count 35.4 g/dL 31.0 - 36.0 [facility] Erythrocyte distribution width [Ratio] by Automated count 12.6 % 11.5 - 14.8 [facility] Platelets [#/volume] in Blood by Automated count 304 10^3/uL 150 - 45 0 [facility] Platelet mean volume [Entitic volume] in Blood by Automated count 9.2 fL 7.4 - 10.4 [facility] Neutrophils/100 leukocytes in Blood by Automated count 46.7 % 37. 0 - 80.0 [facility] Lymphocytes/100 leukocytes in Blood by Manual count 43.1 % 25.0 - 40.0 H [facility] Monocytes/100 leukocytes in Blood by Automated count 7.3 % 3.0 - 8.0 [facility] Eosinophils/100 leukocytes in Blood by Automated count 1.5 % 0.0 - 7.0 [facility] Basophils/100 leukocytes in Blood by Automated count 0.7 % 0.0 - 2.0 [facility] %IG 0.7 % 0.0 - 0.0 H [facility] al %NRBC 0.0 % 0.0 - 0.0 [facility] Neutrophils [#/volume] in Blood by Automated count 2.75 10^3/uL 2.00 - 6.90 [facility] Lymphocytes [#/volume] in Blood by Automated count 2.54 10^3/uL 0.60 - 3.40 [facility] Monocytes [#/volume] in Blood by Automated count 0.43 10^3/uL 0.00 - 0.90 [facility] Eosinophils [#/volume] in Blood by Automated count 0.09 10^3/uL 0.00 - 0.70 [facility] Basophils [#/volume] in Blood by Automated count 0.04 10^3/uL 0.00 - 0.20 [facility] #IG 0.04 10^3/uL 0.00 - 0.10 [facility] #NRBC 0.00 10^3/uL 0.00 - 0.00 [facility] MANUAL DIFF NOT INDICATED [facility] RBC MORPH NOT INDICATED [facility] spital ID Date Data Source [id number] 11/19/2020 06:01:00 AM EST [facility] [address] [place] [address] RESPIRATORY CARE REPORT ==== ---------NAME------- NUMBER SEX AGE ADMIT DISCBritt CRONINAY# F/C JULIAN Navarro [id number] 11/17/20 11/18/20 [id number] XBE E/R DATE OF : 1990 M/R# [id number] #: [phone] TR-03 LOCATION: EMERGENCY DEPT EKG [id number] COMP LETE:11/18/20 01:52 VMT [id number] PHYSICIAN: JUDY Cr Name Value Range Interpretation Code Description Data Cecy rce(s) Supporting Document(s) ID Date Data Source [id number] 11/17/2020 10:05:00 PM EST [facility] 1 OrderSheet [facility] Emergency Department [address] [place] [address] Phone #: ext- [phone] 11/17/2020 22:04 Patient: [...] Priority Entered Acknowledged InitialedMEDICATION/IV/DRIP/FLUID ORDERS 2 OrderSheet [facility] Department [address] [place] [address] Phone #: ext- [phone] 11/17/2020 22:04 Patient: [...] rce(s) Supporting Document(s) ID Date Data Source [id number] 11/17/2020 10:05:00 PM EST [facility] 1 Medication Reconciliation Report [facility] Department [address] [place] [address] Phone #: ext- [phone] 11/17/2020 22:04 [id number] Sex: M : 1990 Age: 30yWeight: 83.9 [...] rce(s) Supporting Document(s) ID Date Data Source [id number] 11/17/2020 10:05:00 PM [place] [address] Medication Administration Record [facility] [address] [place] [address] Phone #: [phone] tov- [phone] 11/17/2020 22:04 Patient: CAMILO LAWSON Sex: M : 1990 Age: 30yWeight: 83.9 kgHeight/Length: 70 inBMI: 26.5ALLERGIES: No Known Drug Allergy Date/Time Medication Administered Medication OrderedGiven ACETAMINOPHEN [PO] Acetaminophen PO 1000 mg03:11/18/2020 Dose: 1000 mg Tablets PO (NOW x1)Shweta Dorado R.N. Name Value Range Interpretation Code Description Data Cecy rce(s) Supporting Document(s) ID Date Data Source [id number] 11/17/2020 10:05:00 PM [place] [address] General Instructions [facility] [address] [place] [address] Phone #: ext- [phone] 11/17/2020 22:04 Patient: CAMILO LAWSON Sex: M : 1990 Age: 30yAcute bipolar disorder with the current episode being severely manic without psychosis.Recurrent moderate major depressive disorder without psychosis.(Electronically signed by Pedro Rizo 11/18/2020 05:29) Name Value Range Interpretation Code Description Data Cecy rce(s) Supporting Document(s) ID Date Data Source [id number] 11/17/2020 10:05:00 PM EST [facility] 1 Clinical Report - Nurses [facility] Emergency Department [address] [place] [address] Phone #: ext [phone] 11/17/2020 22:04 Patient: CAMILO LAWSON Sex: M [...] covid", "I wish I never met them".).Treatment WIRELESS WATCHER:None. --22:15 11/17/20 Shweta Dorado R.N.22:08 11/17/20. BP: [...] "Do you 2 Clinical Report - Nurses [facility] [address] [place] [address] Phone #: ext- [phone] 11/17/2020 22:04 Patient: CAMILO LAWSON [facility]#: [id number] Sex: M : 1990 Age: 30y feel [...] this time to come back in [facility] and wait for transfer to another facility. Patient is c ooperative at this time.). --01:13 11/18/20 Shweta Dorado R.N. ( Patient is sleeping at this time.). --01:51 11/18/20 Shweta Dorado R.N. Patient waiting for disposition. ( Patient updated on plan of care, information has been faxed to [facility] for review. Patient is cooperative [...] will make 3 Clinical Report - Nurses [facility] [address] [place] [address] Phone #: ext- [phone] 11/17/2020 22:04 Patient: CAMILO LAWSON Sex: M : 1990 Age: 30y MD aware.). Call light placed in reach. --03:12 11/18/20 Jordin Hitchcock 03:27 11/18/2020 Acetaminophen PO Tablets 1000 mg given. Allergies verified. Information reviewed with patient. --03:27 11/18/20 Shweta Dorado R.N. ( Attempted to call [facility] regarding transfer.). --04:45 11/18/20 Shweta Dorado R.N.DISPOSITION / DISCHARGE Departure time: 05:37 11/18/2020. Condition at departure: unchanged. Transferred to [facility]. Visit overview, summary of care (CCDA), [...] rce(s) Supporting Document(s) ID Date Data Source [id number] 11/17/2020 10:05:00 PM [facility] 1 Clinical Report - Physicians/Mid Levels [facility] Emergency Department [address] [place] [address] Phone #: ext- [phone] 11/17/2020 22:04 Patient: CAMILO LAWSON Sex: M [...] Surgery. 2 Clinical Report - Physicians/Mid Levels [facility] Emergency Department [address] [place] [address] Phone #: ext- [phone] 11/17/2020 22:04 [id number] Sex: M : 1990 Age: 30y Medications: [...] # _[id number] 11/18/20.0039.AB . KIT EXP DATE _[id number] 11/18/20.0039.AB . NORMAL RANGE IS NOT DETECTEDNEGATIVE [...] DIFF 3 Clinical Report - Physicians/Mid Levels [facility] Department [address] [place] [address] Phone #: ext- [phone] 11/17/2020 22:04 Patient: [...] Male GFR Interprentation 20-49 yrs >60 mL/min Atrtzq84-37 yrs >56 mL/min Normal 60-69 yrs >49 mL/min Normal 70-79yrs>42 mL/min Normal 80 and above >35 mL/min Normal Female GFRInterpretation 20-39 yrs >60 mL/min Normal 40-49 yrs >58 mL/minNormal 50-59 yrs >51 mL/min Normal 60-69 yrs >45 mL/min Vnmsja23-06 yrs >39 mL/min Normal 80 and above >32 mL/min Normal 4 Clinical Report - Physicians/Mid Levels [facility] Emergency Department [address] [place], [place] [address] Phone #: ext- [phone] 11/17/2020 22:04 Patient: [...] is requesting to speak with social sciences professor/psychiatrist. 00:26 11/18/20. Patient informed that he is waiting for remainder of results and then his case will be brought to [facility]'s attention for psych evaluation. 00:49 11/18/20. Patient agreed to return back to ED. 30 mins ago he decided to leave the ED because he was tired of waiting. Patient is medically cleared. 5 Clinical Report - Physicians/Mid Levels [facility] Department [address] [place] [address] Phone #: ext- [phone] 11/17/2020 22:04 Patient: CAMILO LAWSON Sex: M : 1990 Age: 30y 05:26 11/18/20. Patient accepted to [facility]. Dr. Villagomez is the accepting physician. Disposition: Benefits, risks and alternatives to transfer explained to patient. Transferred to [facility]. Summary of care (CCDA) pro vided to transfer facility.CLINICAL IMPRESSION Acute bipolar disorder with the current episode being severely manic without psychosis. Recurrent moderate major depressive disorder without psychosis.(Electronically signed by Pedro Rizo 11/18/2020 05:29) Name Value Range Interpretation Code Description Data Cecy rce(s) Supporting Document(s) ID Date Data Source [id number] 11/17/2020 10:05:00 PM [facility] Shahid for CAMILO LAWSON VisitID: [id number] Date: 2:39Faxed chart to [facility] for psych review at 0130(Electronically signed by Justin Maldonado - 11/18/2020 2:39) Name Value Range Interpretation Code Description Data [facility] Supporting Document(s) ID Date Data Source [id number] 11/18/2020 12:39:00 AM [facility] NOT DETECTEDNOT DETECTED{ PROC EDURAL CONTROL VALID KIT LOT # _[id number] 11/18/20.0039.AB . KIT EXP DATE _[id number] 11/18/20.0039.AB . NORMAL RANGE IS NOT DETECTEDNEGATIVE RESULTS SHOULD BE TREATED PRESUMPTIVE AND, IF INCONSISTENT WITHCLINICAL SIGNS AND SYMPTOMS OR NECESSARY FOR PATIENT MANAGEMENT, SHOULD BETESTED WITH DIFFERENT AUTHORIZED OR CLEARED MOLECULAR TESTS. NEGATIVE RESULTSDO NOT PRECLUDE SARS-CoV-2 INFECTION AND SHOULD NOT BE USED THE SOLE BASISFOR PATIENT MANAGEMENT DECISIONS. Name Value Range Interpretation Code Description Data [facility] rce(s) Supporting Document(s) ID Date Data Source [id number] 11/17/2020 11:46:00 PM [facility] Name Value Range Interpretation Code Description Data [facility](s) Supporting Document(s) DRUG SCREEN URINE [facility] URINE DRUG SCREEN Amphetamine [Presence] in Urine by Screen method NEGATIVE NORMAL: N EGATIVE [facility] BARBITURATES NEGATIVE NORMAL: NEGATIVE [facility] BENZO NEGATIVE NORMAL: NEGATIVE [facility] COCAINE NEGATIVE NORMAL: NEGATIVE [facility] Tetrahydrocannabinol [Presence] in Urine NEGATIVE NORMAL: NEGATIVE [facility] OPIATES NEGATIVE NORMAL: NEGATIVE [facility] Phencyclidine [Presence] in Urine by Screen method NEGATIVE NOR MAL: NEGATIVE [facility] \\BLDo\\URINE DRUG SCR EEN INTERPRETATION\\BLDx\\ THE CUTOFFF LEVELS FOR DETECTION ARE FOLLOWS: AMPHETAMINES 1000 ng/ml BARBITUARATES 200 ng/ml BENZODIAZEPINES 100 ng/ml THC 50 ng/ml PHENCYCLIDINE 25 ng/ml OPIATES 300 ng/ml COCAINE 300 ng/ml ALL POSITIVES ARE CONSIDERED PRESUMPTIVE POSITIVE CONFIRMATION WILL BE PERFORMED AT PHYSICIAN REQUEST. ID Date Data Source [id number] 11/17/2020 11:31:00 PM [facility] Name Value Range Interpretation Code Description Data Cecy rce(s) Supporting Document(s) SALICYLATE <0.3 mg/dL 2.0 - 20.0 L [facility] ID Date Data Source [id number] 11/17/2020 11:31:00 PM [facility] Name Value Range Interpretation Code Description Data Cecy rce(s) Supporting Document(s) COMPREHENSIVE METABOLIC PANEL [facility] COMPREHENSIVE METABOLIC PANEL Sodium [Moles/volume] in Serum or Plasma 141 mEq/L 134 - 153 [facility] Potassium [Moles/volume] in Serum or Plasma 3.8 mEq/L 3.6 - 5.0 [facility] Chloride [Moles/volume] in Serum or Plasma 104 mEq/L 98 - 107 [facility] Carbon dioxide, total [Moles/volume] in Serum or Plasma 23 MEQ/L 22 - 30 [facility] Glucose [Mass/volume] in Serum or Plasma 116 MG/DL 70 - 99 H [facility] BUN 8 MG/DL 7 - 21 [facility] Creat[facility] [Mass/volume] in Serum or Plasma 0.6 MG/DL 0.7 - 1.5 L [facility] BUN/CREAT 13 8 - 27 [facility] Protein [Mass/volume] in Serum or Plasma 6.1 G/DL 6.3 - 8.2 L [facility] Albumin [Mass/volume] in Serum or Plasma 4.8 G/DL 3.9 - 5.0 [facility] Globulin [Mass/volume] in Serum by calculation 1.3 GM/DL 2.4 - 3.2 L [facility] A/G RATIO 3.7 0.8 - 2.0 H [facility] Calcium [Mass/volume] in Serum or Plasma 9.0 MG/DL 8.4 - 10.2 [facility] Bilirubin.total [Mass/volume] in Serum or Plasma <0.7 MG/DL 0.2 - 1.3 [facility] Alkaline phosphatase [Enzymatic activity/volume] in Serum or Plasma 95 U/L 38 - 126 [facility] Aspartate aminotransferase [Enzymatic activity/volume] in Serum or Plasma 27 U/L 5 - 40 [facility] Alanine aminotransferase [Enzymatic activity/volume] in Seru m or Plasma 24 U/L 7 - 56 [facility] Anion gap 3 in Serum or Plasma 14.0 mmol/L 8.0 - 16.0 [facility] AGE 30 yrs [facility] NON-AA GFR >60 mL/min [facility] H[facility] ital AFR AMER GFR >60 mL/min [facility] Ho spital Male GFR In terprentation 20-49 [...] >32 mL/min Normal ID Date Data Source [id number] 11/17/2020 11:31:00 PM [facility] Name Value Range Interpretation Code Description Data Cecy rce(s) Supporting Document(s) Ethanol [Moles/volume] in Blood <10.0 MG/DL [facility] ALCOHOL % 0.01 % 0.00 - 0.01 [facility] ital *FOR MEDICAL PURPOSES ONLY * ID Date Data Source [id number] 11/17/2020 11:31:00 PM [facility] Name Value Range Interpretation Code Description Data Cecy rce(s) Supporting Document(s) Thyrotropin [Units/volume] in Serum or Plasma by Detec tion limit <= 0.05 mIU/L 1.06 uIU/mL 0.47 - 5.01 [facility] ID Date Data Source [id number] 11/17/2020 10:56:00 PM [facility] Value Range Interpretation Code Description Data Cecy rce(s) Supporting Document(s) CBC W/AUTOMATED DIFF [facility] COMPLETE BLOOD COUNT Leukocytes [#/volume] in Blood by Automated count 8.3 10^3/uL 4.2 - 1 1.0 [facility] Erythrocytes [#/volume] in Blood by Automated count 5.28 10^6/uL 4. 50 - 6.30 [facility] Hemoglobin [Mass/volume] in Blood 16.1 g/dL 14.0 - 16.0 H [facility] Hematocrit [Volume Fraction] of Blood by Automated count 46.5 % 4 1.0 - 51.0 [facility] Erythrocyte mean corpuscular volume [Entitic volume] by Auto mated count 88.1 fL 80.0 - 94.0 [facility] Erythrocyte mean corpuscular hemoglobin [Entitic mass] by Automated count 30.5 pg 27.0 - 34.0 [facility] Erythrocyte mean corpuscular hemoglobin concentration [Mass/volume] by Automated count 34.6 g/dL 31.0 - 36.0 [facility] Erythrocyte distribution width [Ratio] by Automated count 12.4 % 11.5 - 14.8 [facility] Platelets [#/volume] in Blood by Automated count 299 10^3/uL 150 - 45 0 [facility] Platelet mean volume [Entitic volume] in Blood by Automated count 9.2 fL 7.4 - 10.4 [facility] Neutrophils/100 leukocytes in Blood by Automated count 68.8 % 37. 0 - 80.0 [facility] Lymphocytes/100 leukocytes in Blood by Manual count 21.8 % 25.0 - 40.0 L [facility] Monocytes/100 leukocytes in Blood by Automated count 7.4 % 3.0 - 8.0 [facility] Eosinophils/100 leukocytes in Blood by Automated count 0.7 % 0.0 - 7.0 [facility] Basophils/100 leukocytes in Blood by Automated count 0.8 % 0.0 - 2.0 [facility] %IG 0.5 % 0.0 - 0.0 [facility] %NRBC 0.0 % 0.0 - 0.0 [facility] al Neutrophils [#/volume] in Blood by Automated count 5.69 10^3/uL 2.00 - 6.90 [facility] Lymphocytes [#/volume] in Blood by Automated count 1.80 10^3/uL 0.60 - 3.40 [facility] Monocytes [#/volume] in Blood by Automated count 0.61 10^3/uL 0.00 - 0.90 [facility] Eosinophils [#/volume] in Blood by Automated count 0.06 10^3/uL 0.00 - 0.70 [facility] Basophils [#/volume] in Blood by Automated count 0.07 10^3/uL 0.00 - 0.20 [facility] #IG 0.04 10^3/uL 0.00 - 0.10 [facility] H ospital #NRBC 0.00 10^3/uL 0.00 - 0.00 [facility] H ospital MANUAL DIFF NOT INDICATED [facility] RBC MORPH NOT INDICATED [facility] spital ID Date Data Source [id number] 11/18/2020 01:40:00 AM [facility] Name Value Range Interpretation Code Description Data Cecy rce(s) Supporting Document(s) Acetaminophen [Presence] in Urine <5.0 UG/ML 0.0 - 30.0 [facility] ID Date Data Source [id number] 09/06/2020 07:03:00 PM [facility] 1 OrderSheet [facility] Emergency Department [address] [place] [address] Phone #: ext- [phone] 09/06/2020 19:02 Patient: [...] IV Prudencio Chapin R.N.Contrast Physician;(Oxygen?(No)) 2 OrderSheet [facility] Emergency Department [address] [place] [address] Phone #: ext- [phone] 09/06/2020 19:02 Patient: CAMILO LAWSON Sex: M : 1990 Age: 29y(IV?(No)) NOTES: Rectal pain Reason for Study: Abdominal PainMEDICATION/IV/DRIP/FLUID ORDERSOrder Description Priority Entered Acknowledged InitialedGENERAL ORDERSOrder Description Priority Entered Acknowledged Initialed[Electronically signed by Prudenico Cruz (23:09/06/2020)][Electronically signed by Peggy Dye R.N. (09/06/2020)][Electronically locked by Peggy Dye R.N. (09/06/2020)] Name Value Range Interpretation Code Description Data Cecy rce(s) Supporting Document(s) ID Date Data Source [id number] 09/06/2020 07:03:00 PM [facility] 1 Medication Reconciliation Report [facility] Emergency Department [address] [place] [address] Phone #: ext- [phone] 09/06/2020 19:02 Patient: [...] rce(s) Supporting Document(s) ID Date Data Source [id number] 09/06/2020 07:03:00 PM [facility] 1 Medication Administration Record [facility] Emergency Department [address] [place] [address] Phone #: ext- [phone] 19:02 Patient: CAMILO LAWSON Sex: M : 1990 Age: 29yWeight: 90.2 kgHeight/Length: 66 inBMI: 32.1ALLERGIES: No Known Drug AllergyDate/Time Medication Administered Medication Ordered Name Value Range Interpretation Code Description Data Cecy rce(s) Supporting Document(s) ID Date Data Source [id number] 09/06/2020 07:03:00 PM [facility] 1 General Instructions [facility] Emergency Department [address] [place] [address] Phone #: ext [phone] 09/06/2020 19:02 Patient: [...] rce(s) Supporting Document(s) ID Date Data Source [id number] 09/06/2020 07:03:00 PM EST [facility] 1 Clinical Report - Nurses [facility] Emergency Department [address] [place] [address] Phone #: ext- [phone] 09/06/2020 19:02 Patient: [...] (friend). Occurred at home. Police department notified.Treatment WIRELESS WATCHER:None.SEPSIS SCREEN: SIRS Screen negative. Sepsis Screen negative. [...] SURGERIES:Brain surgery. 2 Clinical Report - Nurses [facility] Emergency Department [address] [place] [address] Phone #: ext- [phone] 09/06/2020 19:02 [id number] Sex: M : 1990 Age: 29y BRAIN [...] well.). --19:41 3 Clinical Report - Nurses [facility] Emergency Department [address] [place] [address] Phone #: ext- [phone] 09/06/2020 19:02 Patient: CAMILO LAWSON Sex: M : 1990 Age: 29y 09/06/20 Peggy Chapin R.N. ( [facility] in to speak with pt.). --19:42 09/06/20 Peggy Chapin R.N. 20:20 09/06/20. Blood samples drawn by lab. Urine collected. --22:41 09/06/20 Peggy Chapin R.N. 20:50 09/06/20. Patient transported to CT with technology officer. Patient returned from CT by wheelchair with technology officer. ([id number]). --22:40 09/06/20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 Code Description Data Cecy rce(s) Supporting Document(s) CBC W/AUTOMATED DIFF [facility] COMPLETE BLOOD COUNT Leukocytes [#/volume] in Blood by Automated count 8.4 10^3/uL 4.2 - 1 1.0 [facility] Erythrocytes [#/volume] in Blood by Automated count 4.97 10^6/uL 4. 50 - 6.30 [facility] Hemoglobin [Mass/volume] in Blood 15.1 g/dL 14.0 - 16.0 [facility] Hematocrit [Volume Fraction] of Blood by Automated count 43.8 % 4 1.0 - 51.0 [facility] Erythrocyte mean corpuscular volume [Entitic volume] by Auto mated count 88.1 fL 80.0 - 94.0 [facility] Erythrocyte mean corpuscular hemoglobin [Entitic mass] by Automated count 30.4 pg 27.0 - 34.0 [facility] Erythrocyte mean corpuscular hemoglobin concentration [Mass/volume] by Automated count 34.5 g/dL 31.0 - 36.0 [facility] Erythrocyte distribution width [Ratio] by Automated count 12.6 % 11.5 - 14.8 [facility] Platelets [#/volume] in Blood by Automated count 258 10^3/uL 150 - 45 0 [facility] Platelet mean volume [Entitic volume] in Blood by Automated count 9.9 fL 7.4 - 10.4 [facility] Neutrophils/100 leukocytes in Blood by Automated count 59.4 % 37. 0 - 80.0 [facility] Lymphocytes/100 leukocytes in Blood by Manual count 28.6 % 25.0 - 40.0 [facility] Monocytes/100 leukocytes in Blood by Automated count 8.9 % 3.0 - 8.0 H [facility] Eosinophils/100 leukocytes in Blood by Automated count 2.1 % 0.0 - 7.0 [facility] Basophils/100 leukocytes in Blood by Automated count 0.6 % 0.0 - 2.0 [facility] %IG 0.4 % 0.0 - 0.0 [facility] %NRBC 0.0 % 0.0 - 0.0 [facility] al Neutrophils [#/volume] in Blood by Automated count 4.99 10^3/uL 2.00 - 6.90 [facility] Lymphocytes [#/volume] in Blood by Automated count 2.40 10^3/uL 0.60 - 3.40 [facility] Monocytes [#/volume] in Blood by Automated count 0.75 10^3/uL 0.00 - 0.90 [facility] Eosinophils [#/volume] in Blood by Automated count 0.18 10^3/uL 0.00 - 0.70 [facility] Basophils [#/volume] in Blood by Automated count 0.05 10^3/uL 0.00 - 0.20 [facility] #IG 0.03 10^3/uL 0.00 - 0.10 [facility] H [facility]spital #NRBC 0.00 10^3/uL 0.00 - 0.00 [facility] ospital MANUAL DIFF NOT INDICATED [facility] RBC MORPH NOT INDICATED [facility] Ho [facility]ital ID Date Data Source [id number] 08/29/2020 01:40:00 AM EST [facility] Name Value Range Interpretation Code Description Data Cecy rce(s) Supporting Document(s) DRUG SCREEN URINE [facility] URINE DRUG SCREEN Amphetamine [Presence] in Urine by Screen method NEGATIVE NORMAL: N EGATIVE [facility] BARBITURATES NEGATIVE NORMAL: NEGATIVE [facility] BENZO NEGATIVE NORMAL: NEGATIVE [facility] COCAINE NEGATIVE NORMAL: NEGATIVE [facility] Tetrahydrocannabinol [Presence] in Urine NEGATIVE NORMAL: NEGATIVE [facility] OPIATES NEGATIVE NORMAL: NEGATIVE [facility] Phencyclidine [Presence] in Urine by Screen method NEGATIVE NOR MAL: NEGATIVE [facility] \\BLDo\\URINE DRUG SCR EEN INTERPRETATION\\BLDx\\ THE CUTOFFF LEVELS FOR DETECTION ARE FOLLOWS: AMPHETAMINES 1000 ng/ml BARBITUARATES 200 ng/ml BENZODIAZEPINES 100 ng/ml THC 50 ng/ml PHENCYCLIDINE 25 ng/ml OPIATES 300 ng/ml COCAINE 300 ng/ml ALL POSITIVES ARE CONSIDERED PRESUMPTIVE POSITIVE CONFIRMATION WILL BE PERFORMED AT PHYSICIAN REQUEST. ID Date Data Source [id number] 08/29/2020 01:25:00 AM [facility] Name Value Range Interpretation Code Description Data Cecy rce(s) Supporting Document(s) [facility] R [facility] COL[facility] yellow NORMAL: Yellow [facility] CLARITY clear NORMAL: Clear [facility] Specific gravity of Urine by Test strip 1.010 1.001 - 1.030 [facility] pH 6.5 5 - 9 [facility] al Glucose [Mass/volume] in Urine by Test strip NORM NORMAL: Negat delia [facility] Bilirubin.total [Presence] in Urine by Test strip NEG NORMAL: Negative [facility] Ketones [Presence] in Urine by Test strip NEG NORMAL: Negative [facility] Protein [Mass/volume] in Urine by Test strip NEG NORMAL: Negat delia [facility] Nitrite [Presence] in Urine by Test strip NEG NORMAL: Negative [facility] BLOOD NEG NORMAL: Negative [facility] Leukocyte esterase [Presence] in Urine by Test strip NEG [place] L: Negative [facility] Urobilinogen [Mass/volume] in Urine by Test strip NOR less alida n 1.0 mg/dL [facility] MICROSCOPIC Not Indicate [facility] ospital ID Date Data Source [id number] 08/19/2020 01:52:52 PM EDT [facility] Vital SignsBlood Pressure: 138/82 Patient History Medical History:Brain TumorSeizure DisorderDepressionHx of kidney stonesBipolarSurgical History:Partial lobectomyFamily History:No known family historySocial/Personal History: Smoking Status: current some day smokerDo you vape? NoCurrent Problems: Normal examination (ICD-V65.5) (QFJ70-K88.1)Dental caries/Impaction of teeth (ICD-521.00) (RIZ70-O85.9)Contact dermatitis and other eczema, unspecified cause (ICD-692.9) (CXD37-F93.9)Depression (ICD-311) (IUG36-Q26.9)Seizure Disorder (ICD-780.39) (AGJ30-E72.9)Brain Tumor (ICD-191.9) (PBD44-K96.9)Problem list reviewed during this update.Current Medications: SEROQUEL [...] was ended.Referral for extraction of #12 and 16.N/V-FillingiKmberley Wen RDH by shailesh (08/19/2020 2:39 PM): [...] Known Allergies (updated 08/19/2020) Orders:Oral Surgery Referral [[id number]] Clinical Visit Summary Declined Name Value Range Interpretation Code Description Data Cecy rce(s) Supporting Document(s) ID Date Data Source [id number] 08/14/2020 07:17:00 PM EDT [facility] 1 Medication Reconciliation Report [facility] Emergency Department [address] [place] [address] Phone #: ext- [phone] 08/14/2020 19:09 Patient: [...] rce(s) Supporting Document(s) ID Date Data Source [id number] 08/14/2020 07:17:00 PM EDT [facility] 1 Medication Administration Record [facility] Emergency Department [address] [place] [address] Phone #: ext- [phone] 19:09 Patient: CAMILO LAWSON Sex: M : 1990 Age: 29yWeight: 81.6 kgHeight/Length: 72 inBMI: 24.4ALLERGIES: No Known Drug AllergyDate/Time Medication Administered Medication Ordered Name Value Range Interpretation Code Description Data Cecy rce(s) Supporting Document(s) ID Date Data Source [id number] 08/14/2020 07:17:00 PM EDT [facility] 1 General Instructions [facility] Emergency Department [address] [place] [address] Phone #: ext- [phone] 08/14/2020 19:09 Patient: CAMILO LAWSON Sex: M : 1990 Age: 29y Anxiety reaction. No hyperventilation.INSTRUCTIONS Warnings: GENERAL WARNINGS: Return or contact your physician immediately if your condition worsens or changes unexpectedly, if not improving as expected, or if other problems arise. Understanding of the discharge instructions verbalized by patient. Follow-up with: [facility], , , [address] [place], [address] Follow up in one week. Call for [...] may experience: Dry mouth 2 General Instructions [facility] Emergency Department [address] [place] [address] Phone #: ext- [phone] 08/14/2020 19:09 Patient: [...] Also, there are certain 3 General Instructions [facility] Emergency Department [address] [place] [address] Phone #: ext- [phone] 08/14/2020 19:09 Patient: [...] andtemporary medicine to help you manage stress.Call [phone] if any of these happen: Trouble breathing [...] and mild pain reliever 4 General Instructions [facility] Emergency Department [address] [place], [place] [address] Phone #: ext- [phone] 08/14/2020 19:09 Patient: CAMILO LAWSON Sex: M : 1990 Age: 29y [phone] [employer]. [address] [place] [address]. All rights reserved. This information is not intended as asubstitute for professional medical care. Always follow your healthcare professional's instructions. You have been given the following additional information: Anxiety Reaction(Electronically signed by Pedro Rizo, 08/14/2020 20:15) Name Value Range Interpretation Code Description Data Cecy rce(s) Supporting Document(s) ID Date Data Source [id number] 08/14/2020 07:17:00 PM EDT [facility] 1 Clinical Report - Nurses [facility] Emergency Department [address] [place] [address] Phone #: ext- [phone] 08/14/2020 19:09 Patient: [...] no barriers. 2 Clinical Report - Nurses [facility] Emergency Department [address] [place] [address] Phone #: ext- [phone] 08/14/2020 19:09 Patient: CAMILO LAWSON Sex: M : 1990 Age: 29y FALL RISK ASSESSMENT: Fall risk assessment completed. No risk factors identified. SKIN INTEGRITY ASSESSMENT: Skin integrity risk assessment completed. No skin integrity risk identified. --19:30 08/14/20 Alfonso Buck R.N. FAMILY HX: No significant family medical history. --19:53 08/14/20 Pedro Rizo.PHYSICAL [id number] 08/14/20. Ambulatory to room.GENERAL / NEURO / [...] He left ambulatory and via taxi. 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 --20:04 08/14/20 Carito Barry R.N. 20:03 08/14/20. BP: 141/93. MAP: 109. HR: 81. RR: 16. O2 saturation: 98%. Temp: 97.9 F. Pain level now: 010. --20:04 08/14/20 Carito Barry R.N.Locked/Released at 08/14/2020 20:04 by Carito Barry R.N. Name Value Range Interpretation Code Description Data Cecy rce(s) Supporting Document(s) ID Date Data Source [id number] 08/14/2020 07:17:00 PM EDT [facility] 1 Clinical Report - Physicians/Mid Levels [facility] Emergency Department [address] [place] [address] Phone #: ext- [phone] 08/14/2020 19:09 Patient: [...] alone. 2 Clinical Report - Physicians/Mid Levels [facility] Emergency Department [address] [place] [address] Phone #: ext- [phone] 08/14/2020 19:09 Patient: CAMILO LAWSON Sex: M [...] patient. 3 Clinical Report - Physicians/Mid Levels [facility] Emergency Department [address] [place] [address] Phone #: ext- [phone] 08/14/2020 19:09 Patient: CAMILO LAWSON Sex: M : 1990 Age: 29y Follow-up with: [facility], , , [address] [place], [address] Follow up in one week. Call for an appointment.(Electronically signed by Pedro Rizo, 08/14/2020 20:15) Name Value Range Interpretation Code Description Data Cecy rce(s) Supporting Document(s) Procedure Social History Code Duration Value Status Description Data Source(s ) Smoking 07/20/2021 12:00:00 AM EDT Smoker, current status unkn own completed Smoker, current status unknown [facility] ([facility]) Smoking 07/05/2021 12:00:00 AM EDT Smoker, current status unkn own completed Smoker, current status unknown [facility] ([facility]) Smoking 03/29/2021 12:00:00 AM EDT Smoker, current status unkn own completed Smoker, current status unknown [facility] ([facility]) Smoking 02/17/2021 12:00:00 AM EDT Smoker, current status unkn own completed Smoker, current status unknown [facility] ([facility]) Smoking 01/01/2021 12:00:00 AM EST Smoker, current status unkn own completed Smoker, current status unknown [facility] ([facility]) Smoking 11/17/2020 12:00:00 AM EST Smoker, current status unkn own completed Smoker, current status unknown [facility] ([facility]) Smoking 11/02/2020 12:00:00 AM EST Smoker, current status unkn own completed Smoker, current status unknown [facility] ([facility]) Smoking 10/20/2020 12:00:00 AM EST Smoker, current status unkn own completed Smoker, current status unknown [facility] ([facility]) Smoking 09/24/2020 12:00:00 AM EST Smoker, current status unkn own completed Smoker, current status unknown [facility] ([facility]) Smoking 09/02/2020 12:00:00 AM EST Smoker, current status unkn own completed Smoker, current status unknown [facility] ([facility]) Smoking 08/19/2020 12:00:00 AM EDT Smoker, current status unkn own completed Smoker, current status unknown [facility] ([facility]) Smoking 08/18/2020 12:00:00 AM EDT Smoker, current status unkn own completed Smoker, current status unknown [facility] ([facility]) Smoking 07/29/2020 12:00:00 AM EDT Smoker, current status unkn own completed Smoker, current status unknown [facility] ([facility]) Smoking 07/22/2020 12:00:00 AM EDT Smoker, current status unkn own completed Smoker, current status unknown [facility] ([facility]) Smoking 07/10/2020 12:00:00 AM EDT Smoker, current status unkn own completed Smoker, current status unknown [facility] ([facility])
[2021-08-18 17:28] LABS: HEMATOCRIT 51.7 % (42.0-52.0); HEMOGLOBIN 16.9 g/dl (13.5-17.5); MEAN CORPUSCULAR HEMOGLOBIN 31.1 pg (27.0-33.0); MEAN CORPUSCULAR HGB CONC 32.7 g/dl (32.0-36.5); MEAN CORPUSCULAR VOLUME 95.2 fl (80.0-96.0); PLATELET COUNT, AUTOMATED 351 10^3/uL (150-450); RED BLOOD COUNT 5.43 10^6/uL (4.30-6.10); WHITE BLOOD COUNT 9.6 10^3/uL (4.0-10.0)
[2021-08-18 18:15] LABS: ACETAMINOPHEN LEVEL < 2.0 UG/ML (10.0-30.0); ALBUMIN 4.8 GM/DL (3.2-5.2); ALT/SGPT 44 U/L (12-78); BILIRUBIN,DIRECT < 0.1 MG/DL (0.0-0.2); BILIRUBIN,TOTAL 0.5 MG/DL (0.2-1.0); BLOOD UREA NITROGEN 15 MG/DL (7-18); CALCIUM LEVEL 9.1 MG/DL (8.5-10.1); CARBON DIOXIDE LEVEL 24 MEQ/L (21-32); CHLORIDE LEVEL 107 MEQ/L (98-107); ETHYL ALCOHOL (ETHANOL) 0.287 % (0.000-0.010); GLOMERULAR FILTRATION RATE > 60.0 (>60); GLUCOSE, FASTING 102 MG/DL (70-100); SALICYLATE LEVEL < 1.7 MG/DL (5.0-30.0); SODIUM LEVEL 141 MEQ/L (136-145); THYROID STIMULATING HORMONE 0.614 uIU/ML (0.358-3.740); TOTAL PROTEIN 8.2 GM/DL (6.4-8.2)
[2021-08-18] MEDS ORDERED: THIAMINE 100 MG TAB PO SCH (21:00)
[2021-08-19 02:45] LABS: AMPHETAMINES LEVEL URINE NEGATIVE (NEGATIVE); BARBITURATES URINE NEGATIVE (NEGATIVE); BENZODIAZEPINES URINE NEGATIVE (NEGATIVE); CANNABINOIDS URINE NEGATIVE (NEGATIVE); COCAINE METABOLITE URINE NEGATIVE (NEGATIVE); METHADONE URINE NEGATIVE (NEGATIVE); OPIATES URINE NEGATIVE (NEGATIVE); PHENCYCLIDINE URINE NEGATIVE (NEGATIVE)
[2021-08-19 04:19] VITALS: BP 133/91
[2021-08-19] MEDS ORDERED: MULTIVITAMINS/MINERALS THERAP 1 TAB PO SCH (09:00)
[2021-08-19] MEDS ORDERED: FOLIC ACID 1 MG TAB PO SCH (09:00)
[2021-08-20] MEDS ORDERED: KEPP1TAB PO (07:19)
== END 2021-08-19 04:22 | disposition home or self-care (01) ==
LOC: M ED 16:14
DX: F10.129 Alcohol abuse with intoxication, unspecified (principal); F20.9 Schizophrenia, unspecified; Z87.820 Personal history of traumatic brain injury; R56.9 Unspecified convulsions; Z79.899 Other long term (current) drug therapy
CPT/HCPCS: 80048; 80076; 80143; 80307; 82077; 84443; 85027; 96372; 99285; J1200; J1630

== ENCOUNTER 2021-08-19 20:59 | Inpatient (IN) | payer MEDICAID ==
[2021-08-19] MEDS ORDERED: levETIRAcetam 250MG TABLET (KEPPRA) PO ONE (21:20)
[2021-08-19 21:41] LABS: HEMATOCRIT 43.7 % (42.0-52.0); MEAN CORPUSCULAR HEMOGLOBIN 31.2 pg (27.0-33.0); MEAN CORPUSCULAR HGB CONC 34.1 g/dl (32.0-36.5); MEAN CORPUSCULAR VOLUME 91.6 fl (80.0-96.0); PLATELET COUNT, AUTOMATED 296 10^3/uL (150-450); RED BLOOD COUNT 4.77 10^6/uL (4.30-6.10); WHITE BLOOD COUNT 8.1 10^3/uL (4.0-10.0)
[2021-08-19 21:47] LABS: HEMOGLOBIN 14.9 g/dl (13.5-17.5)
[2021-08-19 22:21] LABS: ACETAMINOPHEN LEVEL < 2.0 UG/ML (10.0-30.0); ALBUMIN 3.9 GM/DL (3.2-5.2); ALT/SGPT 47 U/L (12-78); BILIRUBIN,DIRECT 0.2 MG/DL (0.0-0.2); BILIRUBIN,TOTAL 0.5 MG/DL (0.2-1.0); BLOOD UREA NITROGEN 16 MG/DL (7-18); CALCIUM LEVEL 8.9 MG/DL (8.5-10.1); CARBON DIOXIDE LEVEL 28 MEQ/L (21-32); CHLORIDE LEVEL 105 MEQ/L (98-107); CREATININE FOR GFR 0.73 MG/DL (0.70-1.30); ETHYL ALCOHOL (ETHANOL) < 0.003 % (0.000-0.010); GLOMERULAR FILTRATION RATE > 60.0 (>60); GLUCOSE, FASTING 92 MG/DL (70-100); SALICYLATE LEVEL < 1.7 MG/DL (5.0-30.0); SODIUM LEVEL 141 MEQ/L (136-145); TOTAL PROTEIN 6.7 GM/DL (6.4-8.2)
[2021-08-20] MEDS ORDERED: KEPP1TAB PO (07:19)
[2021-08-20] MEDS ORDERED: HOME MED LIST COMPLETE! XX SCH (07:20)
[2021-08-20] MEDS ORDERED: levETIRAcetam 250MG TABLET (KEPPRA) PO ONE (09:00)
[2021-08-20] MEDS ORDERED: LORazepam 2 MG/ML VIAL IM ONE (12:35)
[2021-08-20] MEDS ORDERED: HALOPERIDOL 5MG/ML VIAL (J1630 PER 1) IM ONE (12:35)
[2021-08-20] MEDS ORDERED: diphenhydrAMINE 50MG/ML VIAL (J1200) IM ONE (12:35)
[2021-08-20] MEDS ORDERED: LORazepam 2 MG TAB PO PRN (13:35)
[2021-08-20] MEDS ORDERED: traZODone 50 MG TAB PO PRN (13:35)
[2021-08-20] MEDS ORDERED: MAALOX 30 ML SUSP *UDC PO PRN (13:35)
[2021-08-20] MEDS ORDERED: MOM 30ML SUSPENSION UDC PO PRN (13:35)
[2021-08-20] MEDS ORDERED: haloperidoL 5 MG TAB PO PRN (13:35)
[2021-08-20] MEDS ORDERED: ACETAMINOPHEN TAB 650MG DOSE (2X325MG) PO PRN (13:35)
--- OUTSIDE RECORDS SUMMARY | 2021-08-20 14:19 | CCD ---
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 [facility].COVID-19 CAH: (LULU: 12/17/2020 19:20) ( [facility] 12/17/2020 19:49) Final results Test Result Flag Units (Reference) COVID-19 NOT DETECTED COVID-19 REENTER NOT DETECTED { PROCEDURAL CONTROL VALID KIT LOT # _[id number] 12/17/20.1947.JOVANNA. KIT EXP DATE _[id number] 19/25/21.1947.JOVANNA. NORMAL RANGE IS NOT DETECTEDNEGATIVE RESULTS SHOULD BE TREATEDAS PRESUMPTIVE AND, IF INCONSISTENT WITHCLINICAL SIGNS AND SYMPTOMS OR NECESSARY FOR PATIENT MANAGEMENT, SHOULDBETESTED WITH DIFFERENT AUTHORIZED OR CLEARED MOLECULAR TESTS. NEGATIVE RESULTSDO NOT PRECLUDE [id number] AND SHOULD NOT BE USED THE SOLE BASISFOR PATIENT MANAGEMENT DECISIONS. 6 Clinical Report - Physicians/Mid Levels [facility] Emergency Department [address] [place] [address] Phone #: ext- [phone] 12/17/2020 17:48 Patient: CAMILO LAWSON Sex: M : 1990 Age: 30y.PROGRESS AND PROCEDURESCourse of Care: 18:47 12/17/20. Patient ambulatory without difficulty. No obvious injuries. He denies anyself injury. He currently has no complaints. 20:21 12/17/20. Patient is acting erratic. reporting feeling depressed. 06:36 12/18/20. Patient awake and requesting to go to [facility]. "Send me to [facility] or send me home" Patient's case discussed with ED physician at [facility] who is familiar with the patient. Dr. Sandra agrees to accept to patient to the ED. 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 Name Value Range Interpretation Code Description Data Cecy rce(s) Supporting Document(s) Ethanol [Moles/volume] in Blood 100.0 MG/DL [facility] ALCOHOL % 0.10 % 0.00 - 0.01 H [facility] *FOR MEDICAL PURPOSES ONLY * ID Date Data Source [id number] 12/17/2020 08:23:[address] [facility] Name Value Range Interpretation Code Description Data Cecy rce(s) Supporting Document(s) [facility] SOURCE R [facility] COLOR yellow NORMAL: Yellow [facility] CLARITY clear NORMAL: Clear [facility] Specific gravity of Urine by Test strip 1.010 1.001 - 1.030 [facility] pH 7 5 - 9 [facility] Glucose [Mass/volume] in Urine by Test strip NORM [facility]: [facility] Bil[facility].total [Presence] in Urine by Test strip NEG NORMAL: Negative [facility] Ketones [Presence] in Urine by Test strip NEG NORMAL: Negative [facility] Protein [Mass/volume] in Urine by Test strip NEG NORMAL: Negat [facility] Nitrite [Presence] in Urine by Test strip NEG NORMAL: Negative [facility] BLOOD NEG NORMAL: Negative [facility] Leukocyte esterase [Presence] in Urine by Test strip NEG [place] L: Negative [facility] Urobilinogen [Mass/volume] in Urine by Test strip NOR less alida n 1.0 mg/dL [facility] MICROSCOPIC Not Indicate [facility] ID Date Data Source [id number] 12/17/2020 07:58:[address] [facility] Name Value Range Interpretation Code Description Data Cecy rce(s) Supporting Document(s) DRUG SCREEN URINE [facility] URINE DRUG SCREEN Amphetamine [Presence] in Urine by Screen method NEGATIVE NORMAL: N EGATIVE [facility] BARBITURATES NEGATIVE NORMAL: NEGATIVE [facility] BENZO NEGATIVE NORMAL: NEGATIVE [facility] COCAINE NEGATIVE NORMAL: NEGATIVE [facility] Tetrahydrocannabinol [Presence] in Urine NEGATIVE NORMAL: NEGATIVE [facility] OPIATES NEGATIVE NORMAL: NEGATIVE [facility] Phencyclidine [Presence] in Urine by Screen method NEGATIVE NOR MAL: NEGATIVE [facility] \\BLDo\\URINE DRUG SCR EEN INTERPRETATION\\BLDx\\ THE CUTOFFF LEVELS FOR DETECTION ARE FOLLOWS: AMPHETAMINES 1000 ng/ml BARBITUARATES 200 ng/ml BENZODIAZEPINES 100 ng/ml THC 50 ng/ml PHENCYCLIDINE 25 ng/ml OPIATES 300 ng/ml COCAINE 300 ng/ml ALL POSITIVES ARE CONSIDERED PRESUMPTIVE POSITIVE CONFIRMATION WILL BE PERFORMED AT PHYSICIAN REQUEST. ID Date Data Source [id number] 12/17/2020 07:20:00 PM EST [facility] Name Value Range Interpretation Code Description Data Cecy rce(s) Supporting Document(s) COVID19 Case rprt NOT DETECTED [facility] This lab was ordered by [facility] and reported by [facility]. ID Date Data Source [id number] 12/17/2020 08:23:[address] [facility] Name Value Range Interpretation Code Description Data Cecy rce(s) Supporting Document(s) Thyrotropin [Units/volume] in Serum or Plasma by Detec tion limit <= 0.05 mIU/L 0.47 uIU/mL 0.47 - 5.01 [facility] ID Date Data Source [id number] 12/17/2020 08:10:[address] [facility] Name Value Range Interpretation Code Description Data Cecy rce(s) Supporting Document(s) Ethanol [Moles/volume] in Blood 265.0 MG/DL [facility] ALCOHOL % 0.27 % 0.00 - 0.01 H [facility] *FOR MEDICAL PURPOSES ONLY * ID Date Data Source [id number] 12/17/2020 08:10:[address] [facility] Name Value Range Interpretation Code Description Data Cecy rce(s) Supporting Document(s) BASIC METABOLIC PANEL [facility] BASIC METABOLIC PANEL Sodium [Moles/volume] in Serum or Plasma 142 mEq/L 134 - 153 [facility] Potassium [Moles/volume] in Serum or Plasma 3.3 mEq/L 3.6 - 5.[address] [facility] Chloride [Moles/volume] in Serum or Plasma 104 mEq/L 98 - 107 [facility] Carbon dioxide, total [Moles/volume] in Serum or Plasma 28 MEQ/L 22 - 30 [facility] Glucose [Mass/volume] in Serum or Plasma 91 MG/DL 70 - 99 [facility] BUN 5 MG/DL 7 - 21 L [facility] al Creatinine [Mass/volume] in Serum or Plasma 0.6 MG/DL 0.7 - 1.[address] [facility] BUN/CREAT 8 8 - 27 [facility] Calcium [Mass/volume] in Serum or Plasma 9.0 MG/DL 8.4 - 10.2 [facility] Anion gap 3 in Serum or Plasma 10.0 mmol/L 8.0 - 16.0 [facility] AGE 30 yrs [facility] al AFR AMER GFR >60 mL/min [facility] NON-AA GFR >60 mL/min [facility] Male GFR Inter prentation 20-49 [...] >32 mL/min Normal ID Date Data Source [id number] 12/17/2020 08:10:00 PM [facility] Name Value Range Interpretation Code Description Data Cecy rce(s) Supporting Document(s) SALICYLATE <0.3 mg/dL 2.0 - 20.0 L [facility] ID Date Data Source [id number] 12/17/2020 08:10:00 PM [facility] Name Value Range Interpretation Code Description Data Cecy rce(s) Supporting Document(s) Acetaminophen [Presence] in Urine <5.0 UG/ML 0.0 - 30.0 [facility] ID Date Data Source [id number] 12/17/2020 07:48:00 PM [facility] NOT DETECTEDNOT DETECTED{ PROC EDURAL CONTROL VALID KIT LOT # _[id number] 12/17/20.1948.JOVANNA. KIT EXP DATE _[id number] 12/17/20.1948.JOVANNA. NORMAL RANGE IS NOT DETECTEDNEGATIVE RESULTS SHOULD BE TREATED PRESUMPTIVE AND, IF INCONSISTENT WITHCLINICAL SIGNS AND SYMPTOMS OR NECESSARY FOR PATIENT MANAGEMENT, SHOULD BETESTED WITH DIFFERENT AUTHORIZED OR CLEARED MOLECULAR TESTS. NEGATIVE RESULTSDO NOT PRECLUDE SARS-CoV-2 INFECTION AND SHOULD NOT BE USED THE SOLE BASISFOR PATIENT MANAGEMENT DECISIONS. Name Value Range Interpretation Code Description Data [facility] Supporting Document(s) ID Date Data Source [id number] 12/17/2020 07:34:[address] [facility] Name Value Range Interpretation Code Description Data [facility](s) Supporting Document(s) CBC W/AUTOMATED DIFF [facility] COMPLETE BLOOD COUNT Leukocytes [#/volume] in Blood by Automated count 5.9 10^3/uL 4.2 - [address] [facility] Erythrocytes [#/volume] in Blood by Automated count 5.71 10^6/uL 4. 50 - 6.30 [facility] Hemoglobin [Mass/volume] in Blood 18.0 g/dL 14.0 - 16.[address] [facility] Hematocrit [Volume Fraction] of Blood by Automated count 50.9 % 4 1.0 - 51.0 [facility] Erythrocyte mean corpuscular volume [Entitic volume] by Auto mated count 89.1 fL 80.0 - 94.0 [facility] Erythrocyte mean corpuscular hemoglobin [Entitic mass] by Automated count 31.5 pg 27.0 - 34.0 [facility] Erythrocyte mean corpuscular hemoglobin concentration [Mass/volume] by Automated count 35.4 g/dL 31.0 - 36.0 [facility] Erythrocyte distribution width [Ratio] by Automated count 12.6 % 11.5 - 14.8 [facility] Platelets [#/volume] in Blood by Automated count 304 10^3/uL 150 - [address] [facility] Platelet mean volume [Entitic volume] in Blood by Automated count 9.2 fL 7.4 - 10.4 [facility] Neutrophils/100 leukocytes in Blood by Automated count 46.7 % 37. 0 - 80.0 [facility] Lymphocytes/100 leukocytes in Blood by Manual count 43.1 % 25.0 - 40.[address] [facility] Monocytes/100 leukocytes in Blood by Automated count 7.3 % 3.0 - 8.0 [facility] Eosinophils/100 leukocytes in Blood by Automated count 1.5 % 0.0 - 7.0 [facility] Basophils/100 leukocytes in Blood by Automated count 0.7 % 0.0 - 2.0 [facility] %IG 0.7 % 0.0 - 0.0 H [facility] %NRBC 0.0 % 0.0 - 0.0 [facility] al Neutrophils [#/volume] in Blood by Automated count 2.75 10^3/uL 2.00 - 6.90 [facility] Lymphocytes [#/volume] in Blood by Automated count 2.54 10^3/uL 0.60 - 3.40 [facility] Monocytes [#/volume] in Blood by Automated count 0.43 10^3/uL 0.00 - 0.90 [facility] Eosinophils [#/volume] in Blood by Automated count 0.09 10^3/uL 0.00 - 0.70 [facility] Basophils [#/volume] in Blood by Automated count 0.04 10^3/uL 0.00 - 0.20 [facility] #IG 0.04 10^3/uL 0.00 - 0.10 [facility] #NRBC 0.00 10^3/uL 0.00 - 0.00 [facility] MANUAL DIFF NOT INDICATED [facility] RBC MORPH NOT INDICATED [facility] spital ID Date Data Source [id number] 11/19/2020 06:01:00 [place] [address] RESPIRATORY CARE REPORT ==== ---------NAME------- NUMBER SEX AGE ADMIT DISC. XRAY# F/C JULIAN Navarro [id number] M 30 11/17/20 11/18/20 [id number] XBE E/R DATE OF : 1990 M/R# [id number] #: [id number] TR-03 LOCATION: EMERGENCY DEPT EKG [id number] COMP LETE:11/18/20 01:52 [place] [id number] PHYSICIAN: JUDY Cr Name Value Range Interpretation Code Description Data Cecy rce(s) Supporting Document(s) ID Date Data Source [id number] 11/17/2020 10:05:[address] [facility] [address] [facility] Emergency Department [address] [place] [address] Phone #: ext- [phone] 11/17/2020 22:04 Patient: CAMILO LAWSON Sex: M : 1990 Age: 30yWEIGHT:83.9 kg HEIGHT:70 inches BMI:26.5ALLERGIES: No Known Drug AllergyCHIEF COMPLAINT: depressed, anxious, agitated, angryDIAGNOSIS: Depressive disorder, Bipolar disorderLAB ORDERSOrder Description Priority Entered Acknowledged InitialedCBC w Diff STAT 22:11/17/2020 22:32 Judy Dorado Jack ; Shweta MayerCMP STAT 22:11/17/2020 22:32 Judy Dorado Jack ; Shweta Lawson.Vira.TSH STAT 22:11/17/2020 22:32 Judy Dorado Jack ; Shweta Lawson.WaiAcetaminophen STAT 22:11/17/2020 22:32 Lexi Dorado Jack ; Shweta Lawson.WaiSalicylate Level STAT 22:11/17/2020 22:32 Judy Dorado Jack [...] Entered Acknowledged InitialedMEDICATION/IV/DRIP/FLUID ORDERS [address] [facility] Emergency Department [address] [place] [address] Phone #: ext- [phone] 11/17/2020 22:04 Patient: [...] rce(s) Supporting Document(s) ID Date Data Source [id number] 11/17/2020 10:05:[address] [facility] [address] [facility] Emergency Department [address] [place] [address] Phone #: ext- [phone] 11/17/2020 22:04 Patient: [...] Name Value Range Interpretation Code Description Data [facility](s) Supporting Document(s) ID Date Data Source [id number] 11/17/2020 10:05:[address] [facility] [address] [facility] Emergency Department [address] [place] [address] Phone #: ext- [phone] 11/17/2020 22:04 Patient: CAMILO LAWSON Sex: M : 1990 Age: 30yWeight: 83.9 kgHeight/Length: 70 inBMI: 26.5ALLERGIES: No Known Drug Allergy Date/Time Medication Administered Medication OrderedGiven ACETAMINOPHEN [PO] Acetaminophen PO 1000 mg03:27 11/18/2020 Dose: 1000 mg Tablets PO (NOW x1)Shweta Dorado R.N. Name Value Range Interpretation Code Description Data [facility] Supporting Document(s) ID Date Data Source [id number] 11/17/2020 10:05:[address] [facility] [address] [facility] Emergency Department [address] [place] [address] Phone #: ext- [phone] 11/17/2020 22:04 Patient: CAMILO LAWSON Sex: M : 1990 Age: 30yAcute bipolar disorder with the current episode being severely manic without psychosis.Recurrent moderate major depressive disorder without psychosis.(Electronically signed by Pedro Rizo 11/18/2020 05:29) Name Value Range Interpretation Code Description Data Cecy rce(s) Supporting Document(s) ID Date Data Source [id number] 11/17/2020 10:05:00 PM [facility] 1 Clinical Report - Nurses [facility] Emergency Department [address] [place] [address] Phone #: ext [phone] 11/17/2020 22:04 Patient: CAMILO LAWSON Sex: M : 1990 Age: 30yTRIAGEArrived by EMS. Historian: patient. ( Patient reports feeling anxious and being depressed today. Deniesany ETOH today, did some marijuana this morning. Patient has a history anxiety/depression. States that 3days ago had a psuedoseizure and was evaluated at [facility]. Denies any SI.).Triage time: 22:03 11/17/2020. Acuity: LEVEL 4.Chief Complaint: ANXIETY.Alert. No acute distress.Onset: today. He has had anxiety and describes feelings of depression. ( Patient keeps repeating thathe hates his family, "I could careless if they of covid", "I wish I never met them".).Treatment TELEVISION PRODUCTION ASSISTANT:None. --22:15 11/17/20 Shweta Dorado R.N.22:08 11/17/20. BP: [...] you 2 Clinical Report - Nurses [facility] Emergency Department [address] [place] [address] Phone #: ext- [phone] 11/17/2020 22:04 [id number] Sex: [facility] : 1990 Age: 30y feel [...] this time to come back in the [place] [facility] and wait for transfer to another facility. Patient is c ooperative at this time.). --01:13 11/18/20 Shweta Dorado R.N. ( Patient is sleeping at this time.). --01:51 11/18/20 Shweta Dorado R.N. Patient waiting for disposition. ( Patient updated on plan of care, information has been faxed to [facility] for review. Patient is cooperative at [...] make 3 Clinical Report - Nurses [facility] Emergency Department [address] [place] [address] Phone #: ext- [phone] 11/17/2020 22:04 Patient: CAMILO LAWSON Sex: M : 1990 Age: 30y MD aware.). Call light placed in reach. --03:12 11/18/20 Jordin Hitchcock 03:27 11/18/2020 Acetaminophen PO Tablets 1000 mg given. Allergies verified. Information reviewed with patient. --03:27 11/18/20 Shweta Dorado R.N. ( Attempted to call [facility] regarding transfer.). --04:45 11/18/20 Shweta Dorado R.N.DISPOSITION / DISCHARGE Departure time: 05:37 11/18/2020. Condition at departure: unchanged. Transferred to [facility]. Visit overview, summary of care [...] was transferred. (GUDELIA HUNT RN). --05:37 11/18/20 hSweta Dorado R.N. 05:34 11/18/20. BP: 133/98. HR: 88. RR: 18. O2 saturation: 99%. Temp: 97.8 F. Pain level now 0/10. --05:37 11/18/20 Shweta Dorado R.N.Locked/Released at 11/18/2020 05:38 by Shweta Dorado R.N. Name Value Range Interpretation Code Description Data Cecy rce(s) Supporting Document(s) ID Date Data Source [id number] 11/17/2020 10:05:[address] [facility] 1 Clinical Report - Physicians/Mid Levels [facility] Emergency Department [address] [place] [address] Phone #: ext- [phone] 11/17/2020 22:04 Patient: CAMILO LAWSON Sex: M [...] 2 Clinical Report - Physicians/Mid Levels [facility] Emergency Department [address] [place] [address] Phone #: ext- [phone] 11/17/2020 22:04 [id number] Sex: M : 1990 Age: 30y Medications: [...] # _[id number] 11/18/20.0039.AB . KIT EXP DATE _25-07-30 11/18/20.0039.AB . NORMAL RANGE IS NOT DETECTEDNEGATIVE [...] 3 Clinical Report - Physicians/Mid Levels [facility] Emergency Department [address] [place] [address] Phone #: ext- [phone] 11/17/2020 22:04 Patient: [...] Male GFR Interprentation 20-49 yrs >60 mL/min Vjdopd58-12 yrs >56 mL/min Normal 60-69 yrs >49 mL/min Normal 70-79yrs>42 mL/min Normal 80 and above >35 mL/min Normal Female GFRInterpretation 20-39 yrs >60 mL/min Normal 40-49 yrs >58 mL/minNormal 50-59 yrs >51 mL/min Normal 60-69 yrs >45 mL/min Kdiaua33-73 yrs >39 mL/min Normal 80 and above >32 mL/min Normal 4 Clinical Report - Physicians/Mid Levels [facility] Emergency Department [address] [place] [address] Phone #: ext- [phone] 11/17/2020 22:04 Patient: CAMILO LAWSON Sex: M : 1990 Age: 30y TSH: (LULU: 11/17/2020 22:49) [facility] 11[facility]17[facility] 23:31) Final results Test Result Flag [...] He is requesting to speak with social staff worker/psychiatrist. 00:26 11/18/20. Patient informed that he is waiting for remainder of results and then his case will be brought to [facility]'s attention for psych evaluation. 00:49 11/18/20. Patient agreed to return back to ED. 30 mins ago he decided to leave the ED because he was tired of waiting. Patient is medically cleared. 5 Clinical Report - Physicians/Mid Levels [facility] Emergency Department [address] [place] [address] Phone #: ext- [phone] 11/17/2020 22:04 Patient: CAMILO LAWSON Sex: M : 1990 Age: 30y 05:26 11/18/20. Patient accepted to [facility]. Dr. Villagomez is the accepting physician. Disposition: Benefits, risks and alternatives to transfer explained to patient. Transferred to [facility]. Summary of care (CCDA) pro vided to transfer facility.CLINICAL IMPRESSION Acute bipolar disorder with the current episode being severely manic without psychosis. Recurrent moderate major depressive disorder without psychosis.(Electronically signed by Pedro Rizo 11/18/2020 05:29) Name Value Range Interpretation Code Description Data Cecy rce(s) Supporting Document(s) ID Date Data Source [id number] 11/17/2020 10:05:00 PM [facility] Shahid for CAMILO LAWSON VisitID: [id number] Date: 2:39Faxed chart to [facility] for psych review at 0130(Electronically signed by Justin Maldonado - 11/18/2020 2:39) Name Value Range Interpretation Code Description Data Cecy rce(s) Supporting Document(s) ID Date Data Source [id number] 11/18/2020 12:39:00 AM [facility] NOT DETECTEDNOT DETECTED{ PROC EDURAL CONTROL VALID KIT LOT # _[id number] 11/18/20.0039.AB . KIT EXP DATE _95-31-09 11/18/20.0039.AB . NORMAL RANGE IS NOT DETECTEDNEGATIVE RESULTS SHOULD BE TREATED PRESUMPTIVE AND, IF INCONSISTENT WITHCLINICAL SIGNS AND SYMPTOMS OR NECESSARY FOR PATIENT MANAGEMENT, SHOULD BETESTED WITH DIFFERENT AUTHORIZED OR CLEARED MOLECULAR TESTS. NEGATIVE RESULTSDO NOT PRECLUDE SARS-CoV-2 INFECTION AND SHOULD NOT BE USED THE SOLE BASISFOR PATIENT MANAGEMENT DECISIONS. Name Value Range Interpretation Code Description Data [facility] rce(s) Supporting Document(s) ID Date Data Source [id number] 11/17/2020 11:46:00 PM [facility] Name Value Range Interpretation Code Description Data [facility](s) Supporting Document(s) DRUG SCREEN URINE [facility] URINE DRUG SCREEN Amphetamine [Presence] in Urine by Screen method NEGATIVE NORMAL: N EGATIVE [facility] BARBITURATES NEGATIVE NORMAL: NEGATIVE [facility] BENZO NEGATIVE NORMAL: NEGATIVE [facility] COCAINE NEGATIVE NORMAL: NEGATIVE [facility] Tetrahydrocannabinol [Presence] in Urine NEGATIVE NORMAL: NEGATIVE [facility] OPIATES NEGATIVE NORMAL: NEGATIVE [facility] Phencyclidine [Presence] in Urine by Screen method NEGATIVE NOR MAL: NEGATIVE [facility] \\BLDo\\URINE DRUG SCR EEN INTERPRETATION\\BLDx\\ THE CUTOFFF LEVELS FOR DETECTION ARE FOLLOWS: AMPHETAMINES 1000 ng/ml BARBITUARATES 200 ng/ml BENZODIAZEPINES 100 ng/ml THC 50 ng/ml PHENCYCLIDINE 25 ng/ml OPIATES 300 ng/ml COCAINE 300 ng/ml ALL POSITIVES ARE CONSIDERED PRESUMPTIVE POSITIVE CONFIRMATION WILL BE PERFORMED AT PHYSICIAN REQUEST. ID Date Data Source [id number] 11/17/2020 11:31:00 PM [facility] Name Value Range Interpretation Code Description Data Cecy rce(s) Supporting Document(s) SALICYLATE <0.3 mg/dL 2.0 - 20.0 L [facility] ID Date Data Source [id number] 11/17/2020 11:31:00 PM [facility] Name Value Range Interpretation Code Description Data Cecy rce(s) Supporting Document(s) COMPREHENSIVE METABOLIC PANEL [facility] COMPREHENSIVE METABOLIC PANEL Sodium [Moles/volume] in Serum or Plasma 141 mEq/L 134 - 153 [facility] Potassium [Moles/volume] in Serum or Plasma 3.8 mEq/L 3.6 - 5.0 [facility] Chloride [Moles/volume] in Serum or Plasma 104 mEq/L 98 - 107 [facility] Carbon dioxide, total [Moles/volume] in Serum or Plasma 23 MEQ/L 22 - 30 [facility] Glucose [Mass/volume] in Serum or Plasma 116 MG/DL 70 - [address] [facility] BUN 8 MG/DL 7 - 21 [facility] al Creatinine [Mass/volume] in Serum or Plasma 0.6 MG/DL 0.7 - 1.[address] [facility] BUN/CREAT 13 8 - 27 [facility] Protein [Mass/volume] in Serum or Plasma 6.1 G/DL 6.3 - 8.[address] [facility] Albumin [Mass/volume] in Serum or Plasma 4.8 G/DL 3.9 - 5.0 [facility] Globulin [Mass/volume] in Serum by calculation 1.3 GM/DL 2.4 - 3.[address] [facility] A/G RATIO 3.7 0.8 - 2.0 [facility] Calcium [Mass/volume] in Serum or Plasma 9.0 MG/DL 8.4 - 10.2 [facility] Bilirubin.total [Mass/volume] in Serum or Plasma <0.7 MG/DL 0.2 - 1.3 [facility] Alkaline phosphatase [Enzymatic activity/volume] in Serum or Plasma 95 U/L 38 - 126 [facility] Aspartate aminotransferase [Enzymatic activity/volume] in Serum or Plasma 27 U/L 5 - 40 [facility] Alanine aminotransferase [Enzymatic activity/volume] in Seru m or Plasma 24 U/L 7 - 56 [facility] Anion gap 3 in Serum or Plasma 14.0 mmol/L 8.0 - 16.0 [facility] AGE 30 yrs [facility] NON-AA GFR >60 mL/min [facility] ital AFR AMER GFR >60 mL/min [facility] spital Male GFR In terprentation [...] >32 mL/min Normal ID Date Data Source [id number] 11/17/2020 11:31:00 PM [facility] Name Value Range Interpretation Code Description Data Cecy rce(s) Supporting Document(s) Ethanol [Moles/volume] in Blood <10.0 MG/DL [facility] ALCOHOL % 0.01 % 0.00 - 0.01 [facility] ital *FOR MEDICAL PURPOSES ONLY * ID Date Data Source [id number] 11/17/2020 11:31:00 PM [facility] Name Value Range Interpretation Code Description Data Cecy rce(s) Supporting Document(s) Thyrotropin [Units/volume] in Serum or Plasma by Detec tion limit <= 0.05 mIU/L 1.06 uIU/mL 0.47 - 5.01 [facility] ID Date Data Source [id number] 11/17/2020 10:56:00 PM [facility] Name Value Range Interpretation Code Description Data Cecy rce(s) Supporting Document(s) CBC W/AUTOMATED DIFF [facility] COMPLETE BLOOD COUNT Leukocytes [#/volume] in Blood by Automated count 8.3 10^3/uL 4.2 - [address] [facility] Erythrocytes [#/volume] in Blood by Automated count 5.28 10^6/uL 4. 50 - 6.30 [facility] Hemoglobin [Mass/volume] in Blood 16.1 g/dL 14.0 - 16.[address] [facility] Hematocrit [Volume Fraction] of Blood by Automated count 46.5 % 4 1.0 - 51.0 [facility] Erythrocyte mean corpuscular volume [Entitic volume] by Auto mated count 88.1 fL 80.0 - 94.0 [facility] Erythrocyte mean corpuscular hemoglobin [Entitic mass] by Automated count 30.5 pg 27.0 - 34.0 [facility] Erythrocyte mean corpuscular hemoglobin concentration [Mass/volume] by Automated count 34.6 g/dL 31.0 - 36.0 [facility] Erythrocyte distribution width [Ratio] by Automated count 12.4 % 11.5 - 14.8 [facility] Platelets [#/volume] in Blood by Automated count 299 10^3/uL 150 - [address] [facility] Platelet mean volume [Entitic volume] in Blood by Automated count 9.2 fL 7.4 - 10.4 [facility] Neutrophils/100 leukocytes in Blood by Automated count 68.8 % 37. 0 - 80.0 [facility] Lymphocytes/100 leukocytes in Blood by Manual count 21.8 % 25.0 - 40.[address] [facility] Monocytes/100 leukocytes in Blood by Automated count 7.4 % 3.0 - 8.0 [facility] Eosinophils/100 leukocytes in Blood by Automated count 0.7 % 0.0 - 7.0 [facility] Basophils/100 leukocytes in Blood by Automated count 0.8 % 0.0 - 2.0 [facility] %IG 0.5 % 0.0 - 0.0 [facility] %NRBC 0.0 % 0.0 - 0.0 [facility] al Neutrophils [#/volume] in Blood by Automated count 5.69 10^3/uL 2.00 - 6.90 [facility] Lymphocytes [#/volume] in Blood by Automated count 1.80 10^3/uL 0.60 - 3.40 [facility] Monocytes [#/volume] in Blood by Automated count 0.61 10^3/uL 0.00 - 0.90 [facility] Eosinophils [#/volume] in Blood by Automated count 0.06 10^3/uL 0.00 - 0.70 [facility] Basophils [#/volume] in Blood by Automated count 0.07 10^3/uL 0.00 - 0.20 [facility] #IG 0.04 10^3/uL 0.00 - 0.10 [facility] #NRBC 0.00 10^3/uL 0.00 - 0.00 [facility] MANUAL DIFF NOT INDICATED [facility] RBC MORPH NOT INDICATED [facility] spital ID Date Data Source [id number] 11/18/2020 01:40:00 AM [facility] Name Value Range Interpretation Code Description Data Cecy rce(s) Supporting Document(s) Acetaminophen [Presence] in Urine <5.0 UG/ML 0.0 - 30.0 [facility] ID Date Data Source [id number] 09/06/2020 07:03:00 PM [facility] [address] [facility] Emergency Department [address] [place] [address] Phone #: ext- [phone] 09/06/2020 19:02 Patient: CAMILO LAWSON Sex: M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
[2021-08-20 15:37] LABS: AMPHETAMINES LEVEL URINE NEGATIVE (NEGATIVE); BARBITURATES URINE NEGATIVE (NEGATIVE); BENZODIAZEPINES URINE NEGATIVE (NEGATIVE); CANNABINOIDS URINE NEGATIVE (NEGATIVE); COCAINE METABOLITE URINE NEGATIVE (NEGATIVE); METHADONE URINE NEGATIVE (NEGATIVE); OPIATES URINE NEGATIVE (NEGATIVE); PHENCYCLIDINE URINE NEGATIVE (NEGATIVE)
[2021-08-20 16:59] LABS: RSV AMPLIFICATION NEGATIVE (NEGATIVE)
[2021-08-20] MEDS: levETIRAcetam 250MG TABLET (KEPPRA) PO SCH (21:40)
[2021-08-20] MEDS: QUEtiapine 300 MG XR TABLET(SEROQUEL XR) PO SCH (21:40)
[2021-08-21 07:07] VITALS: BP 109/56
[2021-08-21] MEDS: levETIRAcetam 250MG TABLET (KEPPRA) PO SCH ×2 (09:13→21:37)
[2021-08-21] MEDS ORDERED: OLANZapine ORAL DISINTEGRATING TAB 5MG PO ONE (15:00)
[2021-08-21 16:28] VITALS: BP 129/88
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
[2021-08-21] MEDS: OLANZapine ORAL DISINTEGRATING TAB 5MG PO SCH (21:37)
[2021-08-21] MEDS: QUEtiapine 300 MG XR TABLET(SEROQUEL XR) PO SCH (21:37)
[2021-08-22 07:15] VITALS: BP 115/75
[2021-08-22] MEDS: OLANZapine ORAL DISINTEGRATING TAB 5MG PO SCH ×2 (09:00→20:45)
[2021-08-22] MEDS: levETIRAcetam 250MG TABLET (KEPPRA) PO SCH ×2 (09:00→20:45)
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
--- NOTE | 2021-08-22 15:34 | MHHPEPDOC ---
General Legal Status: 9.39 Chief Complaint paranoia History of Present Illness HISTORY OF THE PRESENT ILLNESS: Patient is a 30 -year-old , male, who. as per Ed records: "Patient arrived by police after dialing 911 himself and stating that he wanted to be transported here, "For help". Upon arrival he was agitated and refused to engage CDP (Ramon Mathis) for interview. He was reportedly quite hostile with CDP, with whom he normally has good rapport. CDP attempted several more times to nterview patient, however he continued to display hostil ity and refuse." Chief Complaint "I'm not a retard, I wasn't born yesterday. Don't treat me like one. Just because the [facility] wants me locked up and institutionalized doesn't mean I don't know what's going on here." tTHE PATIENT WAS EXTREMELY PARANOID, ANGRY AND HSTILE, REFUSED TO COOPERATE WITH INITIAL EVALUATION Past Psychiatric History PATIENT WAS COMPLETELY UNCOOPERATIVE, GUARDED AND PARANOID. REFUSED TO COOPERATE WITH THE INTERVIEW Previous Psychiatric Diagnosis: Says he has been hospitlized in here any times before but he rather stays in here instead of [facility] Previous Psychiatric Admissions: . Suicide Attempts: . Psychiatric Follow-up: . Psychiatric medications: . Past Medical History Medical Problems PATIENT REFUSED TO COOPERATE WITH THE INTERVIEW WAS HOSTILE, ANGRY AND PARANOID Head Injury: Yes Seizures: Yes (HE SAYS HE HAD THEM OVER THE YEARS, THAT'S WHY HE HAD THE SURGERIES) Hospitalizations: Yes Surgeries: Yes (KNEE3 SURGERY, HE SAYS HE HAD "BRAIN SURGERY") Family Medical/Psychiatric HX Medical Problems PATIENT REFUSED TO COOPERATE WITH THE INTERVIEW, WAS HISTILE, AGGRESSIVE AND PARANOID Social History PATIENT WAS EXTREMELY PARANOID, ANGRY, HOSTILE. REFUSED TO COOPERATE WITH INITIAL EVLAUATION Childhood: . Abuse/Trauma:. Current Living Situation: . Education: . Employment: . Social Support: . Legal: . Marital: . Mental Status Examination General Appearance: well groomed, hospital scubs/clothing Build: average Demeanor: hostile, guarded Eye Contact: avoidant Activity: average Behavior: uncooperative, resistant Speech: rapid, spontaneous, normal volume Mood: angry, irritable Affect: constricted Thought Content (Delusions): persecutory, paranoia Thought Content (Other): guarded, ideas of reference Thought Content (Aggressive): none reported Perception (Hallucinations): none reported Perception (Other): none reported Cognition (Impairment of): none reported Cognition(Intelligence Est.): average Oriented: Awake, Alert, Oriented times three Insight: poor Judgment: Poor A-FIB/CHADSVASC A-FIB History Current/History of A-Fib/PAF?: No Current PO Anticoag Therapy: No Age/Risk Factor Scoring CHADSVASC: CHADSVASC Response (Comments) Value Age Risk Factor Age < 65 years old 0 Gender Risk Factor Male 0 Hx of CHF No 0 Hx of HTN No 0 Hx of Stroke/TIA/or VTE No 0 Hx of Diabetes No 0 Hx of Vascular Disease No 0 Total 0 Treatment Treatment ordered: NONE Reason Anticoagulant not given: Not indicated/[id number] Assessment Extremely paranoid, everybody is out to get him the Police wants to kill him, the CO"s are horrible people. He is hostile and he could easily become aggressive to others. Initial Treatment Plan 1. Patient was admitted on a [9.39] status. 2. Complete history was obtained. 3. With patients permission, family will be contacted and database will be expanded. 4. Patients medication regimen will be reviewed and changed accordingly. 5. Patient will be provided with protected environment. 6. Patient will be treated with individual, group, and milieu therapies. 7. Patient will receive supportive psych-education. 8. Discharge planning will commence immediately. 9. Outpatient follow-up treatment will be strongly recommended. 10. The initial treatment plan will focus initially on: * Paranoia * Risk of harming others * Risk for suicide. * Ineffective coping * poor impulse control * poor judgment * anger ESTIMATED LENGTH OF STAY: 5-7 DAYS. TIME SPENT COUNSELING AND COORDINATING INITIAL CARE: 35 minutes. Tobacco Cessation Screen If Patient is a Smoker yes Tobacco Cessation Tx Ordered?: Yes N/A-No Antipsychotics Vital Signs Vital Signs Date Time Temp Pulse Resp B/P (MAP) Pulse Ox O2 Delivery O2 Flow Rate FiO2 08/21/21 07:07 97.4 61 16 109/56 (73) 08/20/21 16:00 100 Room Air Laboratory Data 24H Labs Laboratory Tests 2 08/20/21 14:56: Urine Opiates Screen NEGATIVE, Urine Methadone Screen NEGATIVE, Urine Barbiturates Screen NEGATIVE, Urine Phencyclidine Screen NEGATIVE, Urine Amphetamines Screen NEGATIVE, Urine Benzodiazepines Screen NEGATIVE, Urine Cocaine Metabolite Screen NEGATIVE, Urine Cannabinoids Screen NEGATIVE 08/20/21 15:47: Coronavirus (COVID-19)(PCR) NEGATIVE, Influenza Type A (RT-PCR) NEGATIVE, Influenza Type B (RT-PCR) NEGATIVE, Respiratory Syncytial Virus (PCR) NEGATIVE Medications Scheduled Levetiracetam (Keppra) 500 Mg Tablet, 500 MG PO BID, (Reported) Quetiapine Fumarate (Quetiapine Fumarate ER) 300 Mg Tab.er.24h, 300 MG PO QHS, (Reported) Allergies Coded Allergies: No Known Drug Allergies (Verified Allergy, Unknown, 03/29/21) CARO WILLARD MD Aug 21, 2021 12:46
[2021-08-22] MEDS: QUEtiapine 300 MG XR TABLET(SEROQUEL XR) PO SCH (20:45)
[2021-08-23 06:48] VITALS: BP 115/70
[2021-08-23] MEDS: levETIRAcetam 250MG TABLET (KEPPRA) PO SCH ×2 (09:31→20:38)
[2021-08-23] MEDS: OLANZapine ORAL DISINTEGRATING TAB 5MG PO SCH ×2 (09:32→20:38)
--- NOTE | 2021-08-23 12:21 | MHIPNPDOC ---
[facility] Progress Note Progress Note DATE OF SERVICE: 08/23/21 HISTORY: Patient is a 30 -year-old , male, who. as per Ed records: " Patient arrived by police after dialing 911 himself and stating that he wanted to be transported here, "For help". Upon arrival he was agitated and refused to engage CDP (Ramon Mathis) for interview. He was reportedly quite hostile with CDP, with whom he normally has good rapport. CDP attempted several more times to nterview patient, however he continued to display hostility and refuse." Has a history of psychosis, paranoia, angry, aggressive behavior Chief Complaint "I'm not a retard, I wasn't born yesterday. Don't treat me like one. Just because the [facility] wants me locked up and institutionalized doesn't mean I don't know what's going on here." VITAL SIGNS: See below. NEW TEST RESULTS: See below CURRENT MEDICATIONS: See below. MENTAL STATUS EXAMINATION: General Appearance: well groomed, hospital scrubs/clothing Build: average Demeanor: He is still hostile, guarded, defensive Eye Contact: avoidant Activity: average Behavior: resistant, hostile Speech: rapid, spontaneous, loud Mood: angry, irritable Affect: angry Thought Content (Delusions): persecutory, paranoia Thought Content (Other): guarded, ideas of reference, paranoid ideas Thought Content (Aggressive): none reported Perception (Hallucinations): none reported Perception (Other): none reported Cognition (Impairment of): none reported Cognition(Intelligence Est.): average Oriented: Awake, Alert, Oriented times three Insight: fair Judgment: fair DIAGNOSES: 1. Schizoaffective bipolar type versus Bipolar 1 disorder, manic, with psychosis ASSESSMENT: Attempted to meet patient this morning. Patient was unwilling to wake up and meet with provider this morning. When asked to wake up and meet in interview room, patient stated "No." According to staff patient is not a mo rning person. 2nd attempt at 1212 - patient remained superficial in the interview, demands to be discharged today. As this is provider's first meeting with patient, encouraged patient to be agreeable to discharged tomorrow. Patient was mildly irritable and undertones of agitation, he denies suicidal or homicidal thoughts. States he came to the hospital because he was agitated and angry. When asked what has changed, he states he feels "better" Patient sat in the interview with his eyes closed, refused to be engaged in the interview and was very dismissive. Per reports - He is not engaged in the treatment, withdrawn, isolative and guarded. 3rd encounter patient states he has court on 08/26. Wants to be discharged and feels that since he came to the hospital voluntarily that he should not be held involuntarily another day. Stated "I am sick and tired of people treating me like shimaya, I am tired of being locked up and being institutionalized!" MANAGEMENT PLAN: Continue with the same treatment plan TIME SPENT: 25 minutes. Vital Signs Vital Signs Date Time Temp Pulse Resp B/P (MAP) Pulse Ox O2 Delivery O2 Flow Rate FiO2 08/23/21 06:48 98.1 63 16 115/70 (85) 98 Room Air Current Medications Current Medications Medications (Trade) Dose Ordered Sig/Cali Route PRN Reason Start Time Stop Time Status Last Admin Dose Admin Acetaminophen (Tylenol Tab) 650 mg Q6HP PRN PO HEADACHE or MILD DISCOMFORT 08/20/21 13:35 Al Hydrox/Mg Hydrox/Simethicone (Mylanta) 30 ml Q4HP PRN PO HEARTBURN/INDIGESTION 08/20/21 13:35 Haloperidol (Haldol) 10 mg Q4HP PRN PO ANXIETY/AGITATION 08/20/21 13:35 Home Med (Home Med List Complete!) ASDIRECTED XX 08/20/21 07:20 08/20/21 07:22 DC Levetiracetam (Keppra) 500 mg BID PO 08/20/21 21:00 08/23/21 09:31 Lorazepam (Ativan) 2 mg Q4HP PRN PO ANXIETY/AGITATION 08/20/21 13:35 Magnesium Hydroxide (Milk Of Magnesia) 30 ml DAILYPRN PRN PO CONSTIPATION 08/20/21 13:35 Olanzapine (ZyPREXA ZYDIS) 10 mg BID PO 08/21/21 21:00 08/23/21 09:32 Quetiapine Fumarate (SEROquel XR) 300 mg QHS PO 08/20/21 21:00 08/21/21 21:37 Trazodone HCl (Desyrel) 50 mg QHSP PRN PO INSOMNIA 08/20/21 13:35 Allergies Coded Allergies: No Known Drug Allergies (Verified Allergy, Unknown, 03/29/21) PAUL SPIVEY NP Aug 23, 2021 11:55
[2021-08-23] MEDS ORDERED: KEPP1TAB PO (12:25)
[2021-08-23] MEDS ORDERED: QUET300T53 PO (12:25)
[2021-08-23 16:05] VITALS: BP 133/71
[2021-08-23] MEDS: QUEtiapine 300 MG XR TABLET(SEROQUEL XR) PO SCH (20:36)
[2021-08-24 07:17] VITALS: BP 94/56
[2021-08-24] MEDS: levETIRAcetam 250MG TABLET (KEPPRA) PO SCH (08:52)
[2021-08-24] MEDS: OLANZapine ORAL DISINTEGRATING TAB 5MG PO SCH (08:54)
[2021-08-24] MEDS ORDERED: ZYPR10TA PO (09:03)
--- NOTE | 2021-08-24 11:05 | MHDSPDOC ---
[facility] Discharge Summary Discharge Summary DATE OF ADMISSION: Aug 20, 2021 at 13:35 DATE OF DISCHARGE: August 24, 2021 at 1020 DISCHARGE DIAGNOSES: Bipolar 1 disorder, manic, with psychosis History of TBI REASON FOR ADMISSION: Patient is a 30 -year-old , male, who. as per Ed records: "Patient arrived by police after dialing 911 himself and stating that he wanted to be transported here, "For help". Upon arrival he was agitated and refused to engage CDP (Ramon Mathis) for interview. He was reportedly quite hostile with CDP, with whom he normally has good rapport. CDP attempted several more times to interview patient, however he continued to display hostility and refuse." Has a history of psychosis, paranoia, angry, aggressive behavior Chief Complaint "I'm not a retard, I wasn't born yesterday. Don't treat me like one. Just because the [facility] wants me locked up and institutionalized doesn't mean I don't know what's going on here." VITAL SIGNS: See below. CONSULTANTS INVOLVED: See Medical H + P by Hospitalist TREATMENT AND PROGRESS ON THE UNIT: Patient was admitted to the [facility] on a 9.39 legal status was afforded the following treatment modalities: 1) Individual Therapy 2) Group Therapy 3) Medication Management 4) Milieu Therapy 5) Safe Environment HOSPITAL COURSE: Patient was admitted to [facility] on a 9.39 legal status. Patient was started on his home medications of Keppra and Seroquel . He reported that Zyprexa Zydis was helpful. pt found medications beneficial and tolerated them well. Mood, anxiety, and intrusive thoughts improved with treatment. Pt a ttended groups daily during stay. Pts symptoms improved with treatment. On day of discharge pt. denied depression, anxiety, insomnia, SI/HI, hallucinations, delusions. Pt was discharged home with follow-up with [facility]. . Pt felt safe for discharge DISCHARGE ASSESSMENT: In today's interview, patient is alert and oriented, pt.s dress is appropriate. Hygiene and grooming is well-kempt. Smiles on approach and is pleasant and engaged in the interview. Denies depression and anxiety. Denies suicidal and homicidal ideation, planning or intent. Denies and is not observed with brianna, psychotic symptoms of delusions, bizarre thinking, obsessions, paranoia, ruminations illogical thoughts, flight of ideas or having poor insight and judgement. Reinforced with patient need to abstain from alcohol and drugs. At discharge patient has normal mentation, declines further hospitalization on a voluntary status and meets criteria for discharge today. Discussed indications of medications, potential benefits and risks, alternatives (including no treatment) and questions were encouraged and answered. Patient encouraged to return to hospital if symptoms worsen or change and encouraged to call unit if he/she/they needs to speak to provider for questions regarding medications or care. Patient no longer exhibiting hostility and irritation. Patient was engaged in the interview and discussed that Zyprexa was helpful for him and requests that this be prescribed. MENTAL STATUS EXAMINATION ON DISCHARGE: Patient is a 30 -year-old , male, who. as per Ed records: "Patient a rrived by police after dialing 911 himself and stating that he wanted to be transported here, "For help". Upon arrival he was agitated and refused to engage CDP (Ramon Mathis) for interview. Speech: Is fluid, conversant, normal rate, tone and volume Language skills are intact Thought processes including: linear and goal oriented Thought content: denies depression and anxiety. Denies suicidal/homicidal ideation, planning or intent. Abstract reasoning, and computation: fair Description of associations: denies, none observed Description of abnormal or psychotic thoughts: denies, none observed. Judgment: fair Insight: fair Orientation: alert and oriented to person, place, time and situation Recent and remote memory: intact Attention span and concentration: good Language: expansive Fund of knowledge: average Mood: Euthymic Mood Affect: reactive Suicide Risk Assessment: 1) Does the patient wish to be ? No 2) Since your admission, have you had any actual thought of killing yourself? No 3) Since your admission, have you been thinking about how you might do this? No 4) Since your admission, have you had these thoughts and had some intention of acting on them? No 5) Since your admission, have you started to work out or worked out the details of how to kill yourself? No 5A) Do you intent to carry out this plan? No and NA 6) Have you ever done anything, started anything, or prepared to do anything with any intent to ? No 6A) How long since your admission did you do any of these? NA MEDICATIONS ON DISCHARGE: See Medication Reconciliation PLAN/FOLLOWUP ARRANGEMENTS: Pt was discharged home with follow-up with [facility]. . Pt felt safe for discharge The amount of time spent in the coordination of care for this patient was approximately 20 minutes. ETOH/Disorder Med Rx ETOH/DRUG DISORDER RX: Offrd @ d/c & pt refused Vital Signs/I&Os Vital Signs Date Time Temp Pulse Resp B/P (MAP) Pulse Ox O2 Delivery O2 Flow Rate FiO2 08/24/21 07:17 97.7 61 15 94/56 (69) 97 Room Air Medications Scheduled Levetiracetam (Keppra) 500 Mg Tablet, 500 MG PO BID for Seizures, #14 Olanzapine (Zyprexa) 10 Mg Tablet, 10 MG PO BID for Anger, #14 Quetiapine Fumarate (Quetiapine Fumarate ER) 300 Mg Tab.er.24h, 300 MG PO QHS for Psychosis, #7 Allergies Coded Allergies: No Known Drug Allergies (Verified Allergy, Unknown, 03/29/21) PAUL SPIVEY [employer] Aug 24, 2021 10:29
== END 2021-08-24 11:52 | disposition home or self-care (01) | DRG 753 ==
LOC: M ED 20:59 → M ED INP 08-20 13:35 → M PSY 08-20 18:34
PROVIDERS: ADMIT Student in an Organized Health Care Education/Training Program; ATTEND Psychiatry & Neurology Psychiatry
DX: F31.2 Bipolar disorder, current episode manic severe with psychotic features (principal); G40.909 Epilepsy, unspecified, not intractable, without status epilepticus; G43.909 Migraine, unspecified, not intractable, without status migrainosus; F10.10 Alcohol abuse, uncomplicated; F41.9 Anxiety disorder, unspecified; F32.A Depression, unspecified; F90.9 Attention-deficit hyperactivity disorder, unspecified type; G47.00 Insomnia, unspecified; F42.9 Obsessive-compulsive disorder, unspecified; F17.210 Nicotine dependence, cigarettes, uncomplicated; Z79.899 Other long term (current) drug therapy; Z20.822 Contact with and (suspected) exposure to COVID-19; Z87.820 Personal history of traumatic brain injury; Z91.19 Patient's noncompliance with other medical treatment and regimen

== ENCOUNTER 2021-08-27 21:07 | Emergency (ER) | payer MEDICAID ==
[~2021-08-27] VITALS: Ht 172.7 cm; Wt 68.2 kg
[~2021-08-27 21:07] MED LIST changes: +ZYPR10TA PO
--- OUTSIDE RECORDS SUMMARY | 2021-08-27 21:13 | CCD ---
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 ................................. : M Unsigned transcriptions are preliminary reports and do not represent a medical or legal document CHEST PORTABLE [id number] COMPLETE:12/17/20 20:14 5122 Reason(s): AMS PORTABLE CHEST X-RAY: INDICATION: Altered mental status. FINDINGS: The cardiac and mediastinal silhouettes appear normal and the lungs are clear. The bones and soft tissues are normal. The upper abdomen is unremarkable. IMPRESSION: No acute disease identifiable. Electronically Reviewed and Signed By DCTNAME , SIGNDATE, TEJA Transcribe Initials: FIORELLA , Transcribe Date: 12/17/20 [...] Negat 4 Clinical Report - Physicians/Mid Levels [facility] Emergency Department [address] [place] [address] Phone #: [phone]- [phone] 12/17/2020 17:48 Patient: CAMILO LAWSON Sex: M : 1990 Age: 30y BLOOD NEG (NORMAL: Negat LEUK EST NEG (NORMAL: Negat UROBILINOGEN NOR (less than 1.0 MICROSCOPIC Not IndicateAcetaminophen Level: (LULU: 12/17/2020 19:20) ( AlgRcvd 12/17/2020 20:10) Final results Test Result Flag [...] Male GFR Interprentation 20-49 yrs >60 mL/min Ulmnno65-24 yrs >56 mL/min Normal 60-69 yrs >49 mL/min Normal 70-79yrs>42 mL/min Normal 80 and above >35 mL/min Normal Female GFRInterpretation 20-39 yrs >60 mL/min Normal 40-49 yrs >58 mL/minNormal 50-59 yrs >51 mL/min Normal 60-69 yrs >45 mL/min Wuqeif70-56 yrs >39 mL/min Normal 80 and above >32 mL/min NormalCBC w Diff: (LULU: 12/17/2020 19:20) ( AlgRcvd 12/17/2020 19:34) Final results Test Result Flag [...] 3.40) 5 Clinical Report - Physicians/Mid Levels [facility] Emergency Department [address] [place] [address] Phone #: ext- [phone] 12/17/2020 17:48 Patient: CAMILO LAWSON Sex: M : 1990 Age: 30y #MONO 0.43 10/uL (0.00 - 0.90) #EOS 0.09 10/uL (0.00 - 0.70) #BASO 0.04 10/uL (0.00 - 0.20) #IG 0.04 10/uL ( 0.00 - 0.10) #NRBC 0.00 10/uL (0.00 - 0.00) MANUAL DIFF NOT INDICATED RBC MORPH NOT INDICATEDSalicylate Level: (LULU: 12/17/2020 19:20) ( [facility] 12/17/2020 20:10) Final results Test Result Flag Units (Reference) SALICYLATE <0.3 L mg/dL (2.0 - 20.0)ETOH: (LULU: 12/17/2020 19:20) ( [facility] 12/17/2020 20:10) Final results Test Result Flag Units (Reference) ALCOHOL 265.0 MG/DL ALCOHOL % 0.27 H % (0.00 - 0.01) *FOR MEDICAL PURPOSES ONLY*TSH: (LULU: 12/17/2020 19:20) ( [facility] 12/17/2020 20:23) Final results Test Result Flag Units (Reference) TSH 0.47 uIU/mL (0.47 - 5.01)Drug Screen-Urine: (LULU: 12/17/2020 19:25) ( [facility] 12/17/2020 19:59) Final results Test Result Flag [...] PRESUMPTIVE POSITIVE CONFIRMATION WILL BE PERFORMED AT [facility].COVID-19 CAH: (LULU: 12/17/2020 19:20) ( [facility] 12/17/2020 19:49) Final results Test Result Flag Units (Reference) COVID-19 NOT DETECTED COVID-19 REENTER NOT DETECTED { PROCEDURAL CONTROL VALID KIT LOT # _[id number] 12/17/20.1947.JOVANNA. KIT EXP DATE _14-72-1902 01/25/21.JOVANNA. NORMAL RANGE IS NOT DETECTEDNEGATIVE RESULTS SHOULD BE TREATEDAS PRESUMPTIVE AND, IF INCONSISTENT WITHCLINICAL SIGNS AND SYMPTOMS OR NECESSARY FOR PATIENT MANAGEMENT, SHOULDBETESTED WITH DIFFERENT AUTHORIZED OR CLEARED MOLECULAR TESTS. NEGATIVE RESULTSDO NOT PRECLUDE [id number] AND SHOULD NOT BE USED THE SOLE BASISFOR PATIENT MANAGEMENT DECISIONS. 6 Clinical Report - Physicians/Mid Levels [facility] Emergency Department [address] [place] [address] Phone #: ext- [phone] 12/17/2020 17:48 Patient: CAMILO LAWSON Sex: M : 1990 Age: 30y.PROGRESS AND PROCEDURESCourse of Care: 18:47 12/17/20. Patient ambulatory without difficulty. No obvious injuries. He denies anyself injury. He currently has no complaints. 20:21 12/17/20. Patient is acting erratic. reporting feeling depressed. 06:36 12/18/20. Patient awake and requesting to go to [facility]. "Send me to [facility] or send me home" Patient's case discussed with ED physician at [facility] who is familiar with the patient. Dr. Sandra agrees to accept to patient to the ED. 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, associated with schizophrenia.(Electronically signed by Pedro Rizo 12/18/2020 06:44) Name Value Range Interpretation Code Description Data Cecy rce(s) Supporting Document(s) ID Date Data Source [id number] 12/18/2020 04:31:00 AM EST [facility] Name Value Range Interpretation Code Description Data Cecy rce(s) Supporting Document(s) Ethanol [Moles/volume] in Blood 100.0 MG/DL [facility] ALCOHOL % 0.10 % 0.00 - 0.01 H [facility] ital *FOR MEDICAL PURPOSES ONLY * ID Date Data Source [id number] 12/17/2020 08:23:00 PM [facility] Name Value Range Interpretation Code Description Data Cecy rce(s) Supporting Document(s) [facility] COLOR yellow NORMAL: Yellow [facility] ospital CLARITY clear NORMAL: Clear [facility] spital Specific gravity of Urine by Test strip 1.010 1.001 - 1.030 [facility] pH 7 5 - 9 [facility] al Glucose [Mass/volume] in Urine by Test strip NORM NORMAL: Negat [facility] Bilirubin.total [Presence] in Urine by Test strip NEG NORMAL: Negative [facility] Ketones [Presence] in Urine by Test strip NEG NORMAL: Negative [facility] Protein [Mass/volume] in Urine by Test strip NEG NORMAL: [facility] Nitrite [Presence] in Urine by Test strip NEG NORMAL: Negative [facility] BLOOD NEG NORMAL: Negative [facility] Leukocyte esterase [Presence] in Urine by Test strip NEG [place] L: Negative [facility] Urobilinogen [Mass/volume] in Urine by Test strip NOR less alida n 1.0 mg/dL [facility] MICROSCOPIC Not Indicate [facility] ID Date Data Source [id number] 12/17/2020 07:58:00 PM [facility] Name Value Range Interpretation Code Description Data [facility] rce(s) Supporting Document(s) DRUG SCREEN URINE [facility] URINE DRUG SCREEN Amphetamine [Presence] in Urine by Screen method NEGATIVE NORMAL: N EGATIVE [facility] BARBITURATES NEGATIVE NORMAL: NEGATIVE [facility] BENZO NEGATIVE NORMAL: NEGATIVE [facility] COCAINE NEGATIVE NORMAL: NEGATIVE [facility] Tetrahydrocannabinol [Presence] in Urine NEGATIVE NORMAL: NEGATIVE [facility] OPIATES NEGATIVE NORMAL: NEGATIVE [facility] Phencyclidine [Presence] in Urine by Screen method NEGATIVE NOR MAL: NEGATIVE [facility] \\BLDo\\URINE DRUG SCR EEN INTERPRETATION\\BLDx\\ THE CUTOFFF LEVELS FOR DETECTION ARE FOLLOWS: AMPHETAMINES 1000 ng/ml BARBITUARATES 200 ng/ml BENZODIAZEPINES 100 ng/ml THC 50 ng/ml PHENCYCLIDINE 25 ng/ml OPIATES 300 ng/ml COCAINE 300 ng/ml ALL POSITIVES ARE CONSIDERED PRESUMPTIVE POSITIVE CONFIRMATION WILL BE PERFORMED AT PHYSICIAN REQUEST. ID Date Data Source [id number] 12/17/2020 07:20:00 PM EST [facility] Name Value Range Interpretation Code Description Data Cecy rce(s) Supporting Document(s) COVID19 Case rprt NOT DETECTED [facility] This lab was ordered by [facility] and reported by [facility]. ID Date Data Source [id number] 12/17/2020 08:23:00 PM EST [facility] Name Value Range Interpretation Code Description Data Cecy rce(s) Supporting Document(s) Thyrotropin [Units/volume] in Serum or Plasma by Detec tion limit <= 0.05 mIU/L 0.47 uIU/mL 0.47 - 5.01 [facility] ID Date Data Source [id number] 12/17/2020 08:10:00 PM [facility] Name Value Range Interpretation Code Description Data Cecy rce(s) Supporting Document(s) Ethanol [Moles/volume] in Blood 265.0 MG/DL [facility] ALCOHOL % 0.27 % 0.00 - 0.01 H [facility] ital *FOR MEDICAL PURPOSES ONLY * ID Date Data Source [id number] 12/17/2020 08:10:00 PM [facility] Name Value Range Interpretation Code Description Data Cecy rce(s) Supporting Document(s) BASIC METABOLIC PANEL [facility] BASIC METABOLIC PANEL Sodium [Moles/volume] in Serum or Plasma 142 mEq/L 134 - 153 [facility] Potassium [Moles/volume] in Serum or Plasma 3.3 mEq/L 3.6 - 5.0 L [facility] Chloride [Moles/volume] in Serum or Plasma 104 mEq/L 98 - 107 [facility] Carbon dioxide, total [Moles/volume] in Serum or Plasma 28 MEQ/L 22 - 30 [facility] Glucose [Mass/volume] in Serum or Plasma 91 MG/DL 70 - 99 [facility] BUN 5 MG/DL 7 - 21 L [facility] Creatinine [Mass/volume] in Serum or Plasma 0.6 MG/DL 0.7 - 1.5 L [facility] BUN/CREAT 8 8 - 27 [facility] Calcium [Mass/volume] in Serum or Plasma 9.0 MG/DL 8.4 - 10.2 [facility] Anion gap 3 in Serum or Plasma 10.0 mmol/L 8.0 - 16.0 [facility] AGE 30 yrs [facility] al AFR AMER GFR >60 mL/min [facility] NON-AA GFR >60 mL/min [facility] ital Male GFR Inter prentation 20-49 [...] >32 mL/min Normal ID Date Data Source [id number] 12/17/2020 08:10:00 PM [facility] Name Value Range Interpretation Code Description Data Cecy rce(s) Supporting Document(s) SALICYLATE <0.3 mg/dL 2.0 - 20.0 L [facility] ID Date Data Source [id number] 12/17/2020 08:10:00 PM [facility] Name Value Range Interpretation Code Description Data Cecy rce(s) Supporting Document(s) Acetaminophen [Presence] in Urine <5.0 UG/ML 0.0 - 30.0 [facility] ID Date Data Source [id number] 12/17/2020 07:48:00 PM EST [facility] NOT DETECTEDNOT DETECTED{ PROC EDURAL CONTROL VALID KIT LOT # _[id number] 12/17/20.JOVANNA. KIT EXP DATE _04-92-7594 12/17/20.JOVANNA. NORMAL RANGE IS NOT DETECTEDNEGATIVE RESULTS [...] rce(s) Supporting Document(s) ID Date Data Source [id number] 12/17/2020 07:34:00 PM [facility] Name Value Range Interpretation Code Description Data Cecy rce(s) Supporting Document(s) CBC W/AUTOMATED DIFF [facility] COMPLETE BLOOD COUNT Leukocytes [#/volume] in Blood by Automated count 5.9 10^3/uL 4.2 - 1 1.0 [facility] Erythrocytes [#/volume] in Blood by Automated count 5.71 10^6/uL 4. 50 - 6.30 [facility] Hemoglobin [Mass/volume] in Blood 18.0 g/dL 14.0 - 16.0 H [facility] Hematocrit [Volume Fraction] of Blood by Automated count 50.9 % 4 1.0 - 51.0 [facility] Erythrocyte mean corpuscular volume [Entitic volume] by Auto mated count 89.1 fL 80.0 - 94.0 [facility] Erythrocyte mean corpuscular hemoglobin [Entitic mass] by Automated count 31.5 pg 27.0 - 34.0 [facility] Erythrocyte mean corpuscular hemoglobin concentration [Mass/volume] by Automated count 35.4 g/dL 31.0 - 36.0 [facility] Erythrocyte distribution width [Ratio] by Automated count 12.6 % 11.5 - 14.8 [facility] Platelets [#/volume] in Blood by Automated count 304 10^3/uL 150 - 45 0 [facility] Platelet mean volume [Entitic volume] in Blood by Automated count 9.2 fL 7.4 - 10.4 [facility] Neutrophils/100 leukocytes in Blood by Automated count 46.7 % 37. 0 - 80.0 [facility] Lymphocytes/100 leukocytes in Blood by Manual count 43.1 % 25.0 - 40.0 H [facility] Monocytes/100 leukocytes in Blood by Automated count 7.3 % 3.0 - 8.0 [facility] Eosinophils/100 leukocytes in Blood by Automated count 1.5 % 0.0 - 7.0 [facility] Basophils/100 leukocytes in Blood by Automated count 0.7 % 0.0 - 2.0 [facility] %IG 0.7 % 0.0 - 0.0 H [facility] %NRBC 0.0 % 0.0 - 0.0 [facility] al Neutrophils [#/volume] in Blood by Automated count 2.75 10^3/uL 2.00 - 6.90 [facility] Lymphocytes [#/volume] in Blood by Automated count 2.54 10^3/uL 0.60 - 3.40 [facility] Monocytes [#/volume] in Blood by Automated count 0.43 10^3/uL 0.00 - 0.90 [facility] Eosinophils [#/volume] in Blood by Automated count 0.09 10^3/uL 0.00 - 0.70 [facility] Basophils [#/volume] in Blood by Automated count 0.04 10^3/uL 0.00 - 0.20 [facility] #IG 0.04 10^3/uL 0.00 - 0.10 [facility] #NRBC 0.00 10^3/uL 0.00 - 0.00 [facility] MANUAL DIFF NOT INDICATED [facility] RBC MORPH NOT INDICATED [facility] spital ID Date Data Source [id number] 11/19/2020 06:01:00 AM EST [facility] [address] [place] [address] RESPIRATORY CARE REPORT ==== ---------NAME------- NUMBER SEX AGE ADMIT DISC. XRAY# F/C JULIAN Navarro [id number] 30 11/17/20 11/18/20 [id number] XBE E/R DATE OF : 1990 M/R# [id number] PH#: [phone] TR-03 LOCATION: EMERGENCY DEPT EKG [id number] COMP LETE:11/18/20 01:52 [place] [id number] PHYSICIAN: JUDY Cr Name Value Range Interpretation Code Description Data Cecy rce(s) Supporting Document(s) ID Date Data Source [id number] 11/17/2020 10:05:00 PM EST [facility] 1 OrderSheet [facility] Emergency Department [address] [place] [address] Phone #: ext- [phone] 11/17/2020 22:04 Patient: CAMILO LAWSON Sex: M : 1990 Age: 30yWEIGHT:83.9 kg HEIGHT:70 inches BMI:26.5ALLERGIES: No Known Drug AllergyCHIEF COMPLAINT: depressed, anxious, agitated, angryDIAGNOSIS: Depressive disorder, Bipolar disorderLAB ORDERSOrder Description Priority Entered Acknowledged InitialedCBC w Diff STAT 22:11/17/2020 22:32 Judy Dorado Jack ; Shweta MayerCMP STAT 22:11/17/2020 22:32 Judy Dorado Jack ; Shweta MayerTSH STAT 22:11/17/2020 22:32 Judy Dorado Jack ; Shweta MayerAcetaminophen STAT 22:11/17/2020 22:32 Estrada,Level Pedro Rizo ; Shweta MayerSalicylate Level STAT 22:25 11/17/2020 22:32 Judy Dorado Jack ; Shweta MayerETOH STAT 22:25 11/17/2020 22:32 Judy Dorado Jack ; Shweta MayerDrug Screen-Urine STAT 22:25 11/17/2020 22:32 Judy Dorado Jack ; Shweta MayerCOVID-19 CAH (Not STAT 23:55 11/17/2020 00:27 11/18/2020ymptomatic as Pedro Rizo ; Shweta Dorado R.N.Defined by CDC)(11/17/2020) (NotFirst Test) (NotHospitalized) (Not) (NotResident inCongregate CareSetting) (NotEmployed inHealthcare Setting)DIAGNOSTIC STUDY ORDERSOrder Desc ription Priority Entered Acknowledged InitialedMEDICATION/IV/DRIP/FLUID ORDERS 2 OrderSheet [facility] Emergency Department [address] [place] [address] Phone #: ext- [phone] 11/17/2020 22:04 Patient: [...] rce(s) Supporting Document(s) ID Date Data Source [id number] 11/17/2020 10:05:00 PM [facility] 1 Medication Reconciliation Report [facility] Emergency Department [address] [place] [address] Phone #: ext [phone] 11/17/2020 22:04 Patient: CAMILO LAWSON Sex: M [...] Name Value Range Interpretation Code Description Data [facility] Supporting Document(s) ID Date Data Source [id number] 11/17/2020 10:05:00 PM [facility] 1 Medication Administration Record [facility] Emergency Department [address] [place] [address] Phone #: [phone] 11/17/2020 22:04 Patient: CAMILO LAWSON Sex: M : 1990 Age: 30yWeight: 83.9 kgHeight/Length: 70 inBMI: 26.5ALLERGIES: No Known Drug Allergy Date/Time Medication Administered Medication OrderedGiven ACETAMINOPHEN [PO] Acetaminophen PO 1000 mg03:27 11/18/2020 Dose: 1000 mg Tablets PO (NOW x1)Shweta Dorado R.N. Name Value Range Interpretation Code Description Data Cecy rce(s) Supporting Document(s) ID Date Data Source [id number] 11/17/2020 10:05:00 PM [facility] 1 General Instructions [facility] Emergency Department [address] [place] [address] Phone #: ext [phone] 11/17/2020 22:04 Patient: CAMILO LAWSON Sex: M : 1990 Age: 30yAcute bipolar disorder with the current episode being severely manic without psychosis.Recurrent moderate major depressive disorder without psychosis.(Electronically signed by Pedro Rizo 11/18/2020 05:29) Name Value Range Interpretation Code Description Data Cecy rce(s) Supporting Document(s) ID Date Data Source [id number] 11/17/2020 10:05:00 PM [facility] 1 Clinical Report - Nurses [facility] Emergency Department [address] [place] [address] Phone #: ext [phone] 11/17/2020 22:04 Patient: CAMILO LAWSON Sex: M : 1990 Age: 30yTRIAGEArrived by EMS. Historian: patient. ( Patient reports feeling anxious and being depressed today. Deniesany ETOH today, did some marijuana this morning. Patient has a history anxiety/depression. States that 3days ago had a psuedoseizure and was evaluated at [facility]. Denies any SI.).Triage time: 22:03 11/17/2020. Acuity: LEVEL 4.Chief Complaint: ANXIETY.Alert. No acute distress.Onset: today. He has had anxiety and describes feelings of depression. ( Patient keeps repeating thathe hates his family, "I could careless if they of covid", "I wish I never met them".).Treatment [address] COURT CLERK:None. --22:15 11/17/20 Shweta Dorado R.N.22:08 11/17/20. BP: 151/96. HR: 92. RR: 20. O2 saturation: 95%. Temp: 98.0 F. Pain level now 0/10.--22:15 11/17/20 Shweta Dorado R.N.Weight: 83.9 kg. Height/Length: 70 inches. BMI: 26.5. --22:14 11/17/20 Shweta Dorado R.N.MedicationsSEROquel Oral (Tablet 300 mg) 1/2 tablet, daily at bedtime. --22:11 11/17/20 Swheta Dorado R.N.AllergiesNo Known Drug Allergy. --22:11 11/17/20 [...] "Do you 2 Clinical Report - Nurses [facility] Emergency Department [address] [place] [address] Phone #: ext- [phone] 11/17/2020 22:04 Patient: [...] this time to come back in the [place] [facility] and wait for transfer to another facility. Patient is c ooperative at this time.). --01:13 11/18/20 Shweta Dorado R.N. ( Patient is sleeping at this time.). --01:51 11/18/20 Shweta Dorado R.N. Patient waiting for disposition. ( Patient updated on plan of care, information has been faxed to [facility] for review. Patient is cooperative at this time. Patient keeps stating that he hates technology, "Some day there will be a war on technology".). --02:17 11/18/20 Shweta Dorado R.N. 02:16 11/18/20. BP: 133/89. HR: 98. RR: 16. O2 saturation: 98%. Temp: 98.8 F. Pain level now 0/10. --02:17 11/18/20 Shweta Dorado RBrittN. The plan of care for this patient has been created. Reassurance given. ( Patient states that he has a dent in his forehead where his metal plate is and it is bothering him, explained to patient that I will make 3 Clinical Report - Nurses [facility] Emergency Department [address] [place] [address] Phone #: ext- [phone] 11/17/2020 22:04 Patient: CAMILO LAWSON Sex: M : 1990 Age: 30y MD aware.). Call light placed in reach. --03:12 11/18/20 Jordin Hitchcock 03:27 11/18/2020 Acetaminophen PO Tablets 1000 mg given. Allergies verified. Information reviewed with patient. --03:27 11/18/20 Shweta Dorado R.N. ( Attempted to call [facility] regarding transfer.). --04:45 11/18/20 Shweta Dorado R.N.DISPOSITION / DISCHARGE Departure time: 05:37 11/18/2020. Condition at departure: unchanged. Transferred to [facility]. Visit overview, summary of care (CCDA), [...] rce(s) Supporting Document(s) ID Date Data Source [id number] 11/17/2020 10:05:00 PM EST [facility] 1 Clinical Report - Physicians/Mid Levels [facility] Emergency Department [address] [place] [address] Phone #: ext- [phone] 11/17/2020 22:04 Patient: CAMILO LAWSON [facility]#: [id number] Sex: M : 1990 Age: 30y Time [...] Surgery. 2 Clinical Report - Physicians/Mid Levels [facility] Emergency Department [address] [place] [address] Phone #: ext- [phone] 11/17/2020 22:04 Patient: CAMILO LAWSON Sex: M [...] PROCEDURAL CONTROL VALID KIT LOT # _[id number] 11/18/20.38.AB . KIT EXP DATE _08-85-40 11/18/20.38.AB . NORMAL RANGE IS NOT DETECTEDNEGATIVE RESULTS [...] DIFF 3 Clinical Report - Physicians/Mid Levels [facility] Emergency Department [address] [place] [address] Phone #: ext- [phone] 11/17/2020 22:04 Patient: CAMILO LAWSON Sex: M [...] Male GFR Interprentation 20-49 yrs >60 mL/min Qnxxac57-83 yrs >56 mL/min Normal 60-69 yrs >49 mL/min Normal 70-79yrs>42 mL/min Normal 80 and above >35 mL/min Normal Female GFRInterpretation 20-39 yrs >60 mL/min Normal 40-49 yrs >58 mL/minNormal 50-59 yrs >51 mL/min Normal 60-69 yrs >45 mL/min Dmgaxh45-48 yrs >39 mL/min Normal 80 and above >32 mL/min Normal 4 Clinical Report - Physicians/Mid Levels [facility] Emergency Department [address] [place] [address] Phone #: ext- [phone] 11/17/2020 22:04 Patient: CAMILO LAWSON Sex: M : 1990 Age: 30y TSH: (LULU: 11/17/2020 22:49) ( [facility] 11/17/2020 23:31) Final results Test Result Flag Units (Reference) TSH 1.06 uIU/mL (0.47 - 5.01) Salicylate Level: (LULU: 11/17/2020 22:49) ( AlgRcvd 11/17/2020 23:31) Final results Test Result Flag Units (Reference) SALICYLATE <0.3 L mg/dL (2.0 - 20.0) ETOH: (LULU: 11/17/2020 22:49) ( MsgRcvd 11/17/2020 23:31) Final results Test Result Flag Units (Reference) ALCOHOL <10.0 MG/DL ALCOHOL % 0.01 % (0.00 - 0.01) *FOR MEDICAL PURPOSES ONLY* Drug Screen-Urine: (LULU: 11/17/2020 23:24) ( [facility] 11/17/2020 23:46) Final results Test Result Flag [...] is requesting to speak with social media designer/psychiatrist. 00:26 11/18/20. Patient informed that he is waiting for remainder of results and then his case will be brought to [facility]'s attention for psych evaluation. 00:49 11/18/20. Patient agreed to return back to ED. 30 mins ago he decided to leave the ED because he was tired of waiting. Patient is medically cleared. 5 Clinical Report - Physicians/Mid Levels [facility] Emergency Department [address] [place] [address] Phone #: ext- [phone] 11/17/2020 22:04 Patient: CAMILO LAWSON Sex: M : 1990 Age: 30y 05:26 11/18/20. Patient accepted to [facility]. Dr. Villagomez is the accepting physician. Disposition: Benefits, risks and alternatives to transfer explained to patient. Transferred to [facility]. Summary of care (CCDA) pro vided to transfer facility.CLINICAL IMPRESSION Acute bipolar disorder with the current episode being severely manic without psychosis. Recurrent moderate major depressive disorder without psychosis.(Electronically signed by Pedro Rizo 11/18/2020 05:29) Name Value Range Interpretation Code Description Data [facility] rce(s) Supporting Document(s) ID Date Data Source [id number] 11/17/2020 10:05:00 PM [facility] Addenda for CAMILO LAWSON VisitID: [id number] Date: 2:39Faxed chart to [facility] for psych review at 0130(Electronically signed by Justin Maldonado - 11/18/2020 2:39) Name Value Range Interpretation Code Description Data [facility] Supporting Document(s) ID Date Data Source [id number] 11/18/2020 12:39:00 AM [facility] NOT DETECTEDNOT DETECTED{ PROC EDURAL CONTROL VALID KIT LOT # _[id number] 11/18/20.0039.AB . KIT EXP DATE _[id number] 11/18/20.0039.AB . NORMAL RANGE IS NOT DETECTEDNEGATIVE RESULTS SHOULD BE TREATED PRESUMPTIVE AND, IF INCONSISTENT WITHCLINICAL SIGNS AND SYMPTOMS OR NECESSARY FOR PATIENT MANAGEMENT, SHOULD BETESTED WITH DIFFERENT AUTHORIZED OR CLEARED MOLECULAR TESTS. NEGATIVE RESULTSDO NOT PRECLUDE SARS-CoV-2 INFECTION AND SHOULD NOT BE USED THE SOLE BASISFOR PATIENT MANAGEMENT DECISIONS. Name Value Range Interpretation Code Description Data [facility] Supporting Document(s) ID Date Data Source [id number] 11/17/2020 11:46:00 PM [facility] Name Value Range Interpretation Code Description Data [facility](s) Supporting Document(s) DRUG SCREEN URINE [facility] URINE DRUG SCREEN Amphetamine [Presence] in Urine by Screen method NEGATIVE NORMAL: N EGATIVE [facility] BARBITURATES NEGATIVE NORMAL: NEGATIVE [facility] BENZO NEGATIVE NORMAL: NEGATIVE [facility] COCAINE NEGATIVE NORMAL: NEGATIVE [facility] Tetrahydrocannabinol [Presence] in Urine NEGATIVE NORMAL: NEGATIVE [facility] OPIATES NEGATIVE NORMAL: NEGATIVE [facility] Phencyclidine [Presence] in Urine by Screen method NEGATIVE NOR MAL: NEGATIVE [facility] \\BLDo\\URINE DRUG SCR EEN INTERPRETATION\\BLDx\\ THE CUTOFFF LEVELS FOR DETECTION ARE FOLLOWS: AMPHETAMINES 1000 ng/ml BARBITUARATES 200 ng/ml BENZODIAZEPINES 100 ng/ml THC 50 ng/ml PHENCYCLIDINE 25 ng/ml OPIATES 300 ng/ml COCAINE 300 ng/ml ALL POSITIVES ARE CONSIDERED PRESUMPTIVE POSITIVE CONFIRMATION WILL BE PERFORMED AT PHYSICIAN REQUEST. ID Date Data Source [id number] 11/17/2020 11:31:00 PM [facility] Name Value Range Interpretation Code Description Data Cecy rce(s) Supporting Document(s) SALICYLATE <0.3 mg/dL 2.0 - 20.0 L [facility] pital ID Date Data Source [id number] 11/17/2020 11:31:00 PM [facility] Name Value Range Interpretation Code Description Data Cecy rce(s) Supporting Document(s) COMPREHENSIVE METABOLIC PANEL [facility] COMPREHENSIVE METABOLIC PANEL Sodium [Moles/volume] in Serum or Plasma 141 mEq/L 134 - 153 [facility] Potassium [Moles/volume] in Serum or Plasma 3.8 mEq/L 3.6 - 5.0 [facility] Chloride [Moles/volume] in Serum or Plasma 104 mEq/L 98 - 107 [facility] Carbon dioxide, total [Moles/volume] in Serum or Plasma 23 MEQ/L 22 - 30 [facility] Glucose [Mass/volume] in Serum or Plasma 116 MG/DL 70 - 99 H [facility] BUN 8 MG/DL 7 - 21 [facility] al Creatinine [Mass/volume] in Serum or Plasma 0.6 MG/DL 0.7 - 1.5 L [facility] BUN/CREAT 13 8 - 27 [facility] Protein [Mass/volume] in Serum or Plasma 6.1 G/DL 6.3 - 8.2 L [facility] Albumin [Mass/volume] in Serum or Plasma 4.8 G/DL 3.9 - 5.0 [facility] Globulin [Mass/volume] in Serum by calculation 1.3 GM/DL 2.4 - 3.2 L [facility] A/G RATIO 3.7 0.8 - 2.0 H [facility] al Calcium [Mass/volume] in Serum or Plasma 9.0 MG/DL 8.4 - 10.2 [facility] Bilirubin.total [Mass/volume] in Serum or Plasma <0.7 MG/DL 0.2 - 1.3 [facility] Alkaline phosphatase [Enzymatic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 distress noted, patent airway.).Treatment CIRCUIT COURT CLERK:None. --00:22 08/29/20 Carito Barry R.N.00:14 08/29/20. BP: [...] Allergy. --00:20 08/29/20 Carito Barry R.N.PROBLEMS:Insomnia: Chronic. --00:08/29/20 Carito Barry R.N.Morrow disorder.Lifestyle / Substance Problems.Bipolar Disorder.Anxiety Reaction.ADHD - Attention Deficit Hyperactivity Disorder.Neurological Disease.Tension-Type Headache.Seizure Disorder.Seizure.STD - Sexually Transmitted Disease.Tendonitis.Tbi. 2 Clinical Report - Nurses [facility] Emergency Department [address] [place] [address] Phone #: ext- [phone] 08/29/2020 00:12 [id number] Sex: M : 1990 Age: 29yObsessive Compulsive [...] integrity risk 3 Clinical Report - Nurses [facility] Emergency Department [address] [place] [address] Phone #: ext- [phone] 08/29/2020 00:12 Patient: [...] Patient verbalized understanding. Written instructions provided in Finnish. The patient was discharged home. He left ambulatory and via taxi. 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 --03:44 08/29/20 Carito Barry R.N. 4 Clinical Report - Nurses [facility] Emergency Department [address] [place] [address] Phone #: ext- [phone] 08/29/2020 00:12 Patient: CAMILO LAWSON Sex: M : 1990 Age: 29y 03:44 08/29/20. BP: 126/82. MAP: 96. HR: 71. RR: 16. O2 saturation: 97% on room air. Temp: 98.1 F. Pain level now: 010. --03:44 08/29/20 Carito Barry R.N.Locked/Released at 08/29/2020 05:19 by Carito Barry R.N. Name Value Range Interpretation Code Description Data Cecy rce(s) Supporting Document(s) ID Date Data Source [id number] 08/29/2020 12:13:00 AM EST [facility] 1 Clinical Report - Physicians/Mid Levels [facility] Emergency Department [address] [place] [address] Phone #: ext- [phone] 08/29/2020 00:12 Patient: CAMILO LAWSON Sex: M [...] Abrasions 2 Clinical Report - Physicians/Mid Levels [facility] Emergency Department [address] [place] [address] Phone #: ext- [phone] 08/29/2020 00:12 Patient: [...] ABD //T// PELV W/O ORAL W/[place] [address] ---------N RYANN--------- NUMBER SEX AGE ADMIT DISC. XRAY# F/C TYPE MANTLE CAMILO D [id number] M 29 08/29/20 [id number] NA E/R DATE OF : 1990 M/R# [id number] #: [id number] TR-03 3 Clinical Report - Physicians/Mid Levels [facility] Emergency Department [address] [place] [address] Phone #: ext- [phone] 08/29/2020 00:12 Patient: CAMILO LAWSON Sex: M : 1990 Age: 29y LOCATION: EMERGENCY DEPT TRANSCRIBED: 08/29/20 2:[address] ABD //T// PELV W/O ORAL W/[place] [id number] COMPLETED:08/29/20 2:18 RLB [id number] Reason(s): Trauma/Injury PHYSICIAN: ANTHONY BR = R [...] pathologyevident.IMPRESSION: 4 Clinical Report - Physicians/Mid Levels [facility] Emergency Department [address] [place] [address] Phone #: ext- [phone] 08/29/2020 00:12 Patient: [...] Finalresults Exam CT ST NECK W/O CONTRAST [facility] [address] [place] [address] ---------NAME--------- NUMBER SEX AGE ADMIT DISC. XRAY# F/C TYPE MANTLE CAMILO Navarro [id number] M 29 08/29/20 [id number] NA E/R DATE OF : 1990 M/R# [id number] #: [id number] TR-03 LOCATION: EMERGENCY DEPT TRANSCRIBED: 08/29/20 2:[address] NECK W/O CONTRAST [id number] COMPLETED:08/29/20 2:18 RLB [id number] Reason(s): Trauma/Injury PHYSICIAN: ANTHONY GODINEZ R A [...] gas. 5 Clinical Report - Physicians/Mid Levels [facility] Emergency Department [address] [place] [address] Phone #: ext- [phone] 08/29/2020 00:12 Patient: [...] Final results Exam CT THORAX W/[place] [address] ---------NAME--------- NUMBER SEX AGE ADMIT DISC. XRAY# F/C TYPE BENJAMÍN Navarro [id number] M 29 08/29/20 [id number] NA E/R DATE OF : 1990 M/R# [id number] #: [id number] TR-03 LOCATION: EMERGENCY DEPT TRANSCRIBED: 08/29/20 2:[address] THORAX W/O CONTRAST [id number] COMPLETED:08/29/20 2:18 RLB [id number] Reason(s): Trauma/Injury PHYSICIAN: ANTHONY GODINEZ R A [...] comparison study provided. 6 Clinical Report - Physicians/[facility] Emergency Department [address] [place] [address] Phone #: ext- [phone] 08/29/2020 00:12 Patient: [...] NEGAT 7 Clinical Report - Physicians/Mid Levels [facility] Emergency Department [address] [place] [address] Phone #: ext- [phone] 08/29/2020 00:12 Patient: [facility] LAWSON [id number] Sex: M : 1990 Age: 29y THC NEGATIVE (NORMAL: NEGAT OPIATES NEGATIVE (NORMAL: NEGAT PCP NEGATIVE (NORMAL: NEGAT \\BLDo\\URINE DRUG SCREEN INTERPRETATION\\BLDx\\ THE CUTOFFF LEVELS FORDETECTION ARE FOLLOWS: AMPHETAMINES 1000 ng/mlBARBITUARATES 200 ng/ml BENZODIAZEPINES 100 ng/mlTHC 50 ng/ml PHENCYCLIDINE 25 ng/mlOPIATES 300 ng/ml COCAINE 300 ng/mlALL POSITIVES ARE CONSIDERED PRESUMPTIVE POSITIVE CONFIRMATION WILL BE PERFORMED AT [facility].CMP: (LULU: 08/29/2020 01:35) ( MsgRcvd 08/29/2020 [...] Male GFR Interprentation 20-49 yrs >60 mL/min Hcyqej78-38 yrs >56 mL/min Normal 60-69 yrs >49 mL/min Normal 70-79yrs>42 mL/min Normal 80 and above >35 mL/min Normal Female GFRInterpretation 20-39 yrs >60 mL/min Normal 40-49 yrs >58 mL/minNormal 50-59 yrs >51 mL/min Normal 60-69 yrs >45 mL/min Gnlths31-68 yrs >39 mL/min Normal 80 and above [...] 8 C linical Report - Physicians/Mid Levels [facility] Emergency Department [address] [place] [address] Phone #: ext- [phone] 08/29/2020 00:12 Patient: [...] NOT INDICATED Lipase: (LULU: 08/29/2020 01:35) ( [facility] 08/29/2020 02:03) Final results Test Result Flag Units (Reference) LIPASE 37 U/L (13 - 60) Lactic Acid: (LULU: 08/29/2020 01:35) ( [facility] 08/29/2020 01:45) Final results Test Result Flag [...] tendencies.). 9 Clinical Report - Physicians/Mid Levels [facility] Emergency Department [address] [place] [address] Phone #: ext- [phone] 08/29/2020 00:12 Patient: [...] rce(s) Supporting Document(s) ID Date Data Source [id number] 08/29/2020 02:56:00 [place] [address] ---------NAME--------- NUMBER SEX AGE ADMIT DISC. XRAY# F/C TYPE BENJAMÍN Navarro [id number] M 29 08/29/20 [id number] NA E/R DATE OF : 1990 M/R# [id number] #: [id number] TR-03 LOCATION: EMERGENCY DEPT TRANSCRIBED: 08/29/20 2:[address] THORAX W/O CONTRAST [id number] COMPLETED:11/07/20 2:18 RLB [id number] Reason(s): Trauma/Injury PHYSICIAN: ANTHONY BR R A [...] rce(s) Supporting Document(s) ID Date Data Source [id number] 08/29/2020 02:39:00 AM EST [address] [place] [address] ---------NAME--------- NUMBER SEX AGE ADMIT DISC. XRAY# F/C TYPE MANTLE CAMILO D [id number] M 29 08/29/20 [id number] NA E/R DATE OF : 1990 M/R# [id number] PH#: [phone] TR-03 LOCATION: EMERGENCY DEPT TRANSCRIBED: 08/29/20 2:[address] ABD //T// PELV W/O ORAL W/[place] [id number] COMPLETED:08/29/20 2:18 RLB [id number] Reason(s): Trauma/Injury PHYSICIAN: ANTHONY BR======== R A [...] rce(s) Supporting Document(s) ID Date Data Source [id number] 08/29/2020 02:37:00 AM [facility] [address] [place] [address] ---------NAME--------- NUMBER SEX AGE ADMIT DISC. XRAY# F/C TYPE MANTLE CAMILO D [id number] M 29 08/29/20 [id number] NA E/R DATE OF : 1990 M/R# [id number] #: [id number] TR-03 LOCATION: EMERGENCY DEPT TRANSCRIBED: 08/29/20 2:[address] NECK W/O CONTRAST [id number] COMPLETED:08/29/20 2:18 RLB [id number] Reason(s): Trauma/Injury PHYSICIAN: ANTHONY BR R A [...] rce(s) Supporting Document(s) ID Date Data Source [id number] 08/29/2020 02:02:00 AM [facility] Name Value Range Interpretation Code Description Data Cecy rce(s) Supporting Document(s) Lipase [Enzymatic activity/volume] in Serum or Plasma 37 U/L 13 - 60 [facility] ID Date Data Source [id number] 08/29/2020 02:02:00 AM [facility] Name Value Range Interpretation Code Description Data Cecy rce(s) Supporting Document(s) COMPREHENSIVE METABOLIC PANEL [facility] COMPREHENSIVE METABOLIC PANEL Sodium [Moles/volume] in Serum or Plasma 136 mEq/L 134 - 153 [facility] Potassium [Moles/volume] in Serum or Plasma 3.8 mEq/L 3.6 - 5.0 [facility] Chloride [Moles/volume] in Serum or Plasma 103 mEq/L 98 - 107 [facility] Carbon dioxide, total [Moles/volume] in Serum or Plasma 26 MEQ/L 22 - 30 [facility] Glucose [Mass/volume] in Serum or Plasma 106 MG/DL 65 - 110 [facility] BUN 14 MG/DL 7 - 21 [facility] al Creatinine [Mass/volume] in Serum or Plasma 0.6 MG/DL 0.7 - 1.5 L [facility] BUN/CREAT 23 8 - 27 [facility] al Protein [Mass/volume] in Serum or Plasma 6.6 G/DL 6.3 - 8.2 [facility] Albumin [Mass/volume] in Serum or Plasma 4.3 G/DL 3.9 - 5.0 [facility] Globulin [Mass/volume] in Serum by calculation 2.3 GM/DL 2.4 - 3.2 L [facility] A/G RATIO 1.9 0.8 - 2.0 [facility] al Calcium [Mass/volume] in Serum or Plasma 9.3 MG/DL 8.4 - 10.2 [facility] Bilirubin.total [Mass/volume] in Serum or Plasma 0.8 MG/DL 0.2 - 1.3 [facility] Alkaline phosphatase [Enzymatic activity/volume] in Serum or Plasma 108 U/L 38 - 126 [facility] Aspartate aminotransferase [Enzymatic activity/volume] in Serum or Plasma 17 U/L 5 - 40 [facility] Alanine aminotransferase [Enzymatic activity/volume] in Seru m or Plasma 18 U/L 7 - 56 [facility] Anion gap 3 in Serum or Plasma 7.0 mmol/L 8.0 - 16.0 L [facility] AGE 29 yrs [facility] al NON-AA GFR >60 mL/min [facility] ital AFR AMER GFR >60 mL/min [facility] Male GFR In [...] >32 mL/min Normal ID Date Data Source [id number] 08/29/2020 01:45:00 AM [facility] Name Value Range Interpretation Code Description Data Cecy rce(s) Supporting Document(s) Lactate [Moles/volume] in Serum or Plasma 1.0 MMOL/L 0.2 - 2.2 [facility] ID Date Data Source [id number] 08/29/2020 01:42:00 AM [facility] Name Value Range Interpretation Code Description Data Cecy rce(s) Supporting Document(s) CBC W/AUTOMATED DIFF [facility] COMPLETE BLOOD COUNT Leukocytes [#/volume] in Blood by Automated count 8.4 10^3/uL 4.2 - 1 1.0 [facility] Erythrocytes [#/volume] in Blood by Automated count 4.97 10^6/uL 4. 50 - 6.30 [facility] Hemoglobin [Mass/volume] in Blood 15.1 g/dL 14.0 - 16.0 [facility] Hematocrit [Volume Fraction] of Blood by Automated count 43.8 % 4 1.0 - 51.0 [facility] Erythrocyte mean corpuscular volume [Entitic volume] by Auto mated count 88.1 fL 80.0 - 94.0 [facility] Erythrocyte mean corpuscular hemoglobin [Entitic mass] by Automated count 30.4 pg 27.0 - 34.0 [facility] Erythrocyte mean corpuscular hemoglobin concentration [Mass/volume] by Automated count 34.5 g/dL 31.0 - 36.0 [facility] Erythrocyte distribution width [Ratio] by Automated count 12.6 % 11.5 - 14.8 [facility] Platelets [#/volume] in Blood by Automated count 258 10^3/uL 150 - 45 0 [facility] Platelet mean volume [Entitic volume] in Blood by Automated count 9.9 fL 7.4 - 10.4 [facility] Neutrophils/100 leukocytes in Blood by Automated count 59.4 % 37. 0 - 80.0 [facility] Lymphocytes/100 leukocytes in Blood by Manual count 28.6 % 25.0 - 40.0 [facility] Monocytes/100 leukocytes in Blood by Automated count 8.9 % 3.0 - 8.0 H [facility] Eosinophils/100 leukocytes in Blood by Automated count 2.1 % 0.0 - 7.0 [facility] Basophils/100 leukocytes in Blood by Automated count 0.6 % 0.0 - 2.0 [facility] %IG 0.4 % 0.0 - 0.0 H [facility] al %NRBC 0.0 % 0.0 - 0.0 [facility] al Neutrophils [#/volume] in Blood by Automated count 4.99 10^3/uL 2.00 - 6.90 [facility] Lymphocytes [#/volume] in Blood by Automated count 2.40 10^3/uL 0.60 - 3.40 [facility] Monocytes [#/volume] in Blood by Automated count 0.75 10^3/uL 0.00 - 0.90 [facility] Eosinophils [#/volume] in Blood by Automated count 0.18 10^3/uL 0.00 - 0.70 [facility] Basophils [#/volume] in Blood by Automated count 0.05 10^3/uL 0.00 - 0.20 [facility] #IG 0.03 10^3/uL 0.00 - 0.10 [facility] ospital #NRBC 0.00 10^3/uL 0.00 - 0.00 [facility]ital MANUAL DIFF NOT INDICATED [facility] RBC MORPH NOT INDICATED [facility] spital ID Date Data Source [id number] 08/29/2020 01:40:00 AM [facility] Name Value Range Interpretation Code Description Data Cecy rce(s) Supporting Document(s) DRUG SCREEN URINE [facility] URINE DRUG SCREEN Amphetamine [Presence] in Urine by Screen method NEGATIVE NORMAL: N EGATIVE [facility] BARBITURATES NEGATIVE NORMAL: NEGATIVE [facility] BENZO NEGATIVE NORMAL: NEGATIVE [facility] COCAINE NEGATIVE NORMAL: NEGATIVE [facility] Tetrahydrocannabinol [Presence] in Urine NEGATIVE NORMAL: NEGATIVE [facility] OPIATES NEGATIVE NORMAL: NEGATIVE [facility] Phencyclidine [Presence] in Urine by Screen method NEGATIVE NOR MAL: NEGATIVE [facility] \\BLDo\\URINE DRUG SCR EEN INTERPRETATION\\BLDx\\ THE CUTOFFF LEVELS FOR DETECTION ARE FOLLOWS: AMPHETAMINES 1000 ng/ml BARBITUARATES 200 ng/ml BENZODIAZEPINES 100 ng/ml THC 50 ng/ml PHENCYCLIDINE 25 ng/ml OPIATES 300 ng/ml COCAINE 300 ng/ml ALL POSITIVES ARE CONSIDERED PRESUMPTIVE POSITIVE CONFIRMATION WILL BE PERFORMED AT PHYSICIAN REQUEST. ID Date Data Source [id number] 08/29/2020 01:25:00 AM [facility] Name Value Range Interpretation Code Description Data Cecy rce(s) Supporting Document(s) URINALYSIS [facility] [place] URINALYSIS SOURCE R [facility] COLOR yellow NORMAL: Yellow [facility] CLARITY clear NORMAL: Clear [facility] Specific gravity of Urine by Test strip 1.010 1.001 - 1.030 [facility] pH 6.5 5 - 9 [facility] Glucose [Mass/volume] in Urine by Test strip NORM NORMAL: Negat [facility] Bilirubin.total [Presence] in Urine by Test strip NEG NORMAL: Negative [facility] Ketones [Presence] in Urine by Test strip NEG NORMAL: Negative [facility] Protein [Mass/volume] in Urine by Test strip NEG NORMAL: Negat [facility] Nitrite [Presence] in Urine by Test strip NEG NORMAL: Negative [facility] BLOOD NEG NORMAL: Negative [facility] Leukocyte esterase [Presence] in Urine by Test strip NEG TRENTNO L: Negative [facility] Urobilinogen [Mass/volume] in Urine by Test strip NOR less alida n 1.0 mg/dL [facility] MICROSCOPIC Not Indicate [facility] ID Date Data Source [id number] 08/19/2020 01:52:52 PM EDT [facility] Vital SignsBlood Pressure: 138/82 Patient History Medical History:Brain TumorSeizure DisorderDepressionHx of kidney stonesBipolarSurgical History:Partial lobectomyFamily History:No known family historySocial/Personal History: Smoking Status: current some day smokerDo you vape? NoCurrent Problems: Normal examination (ICD-V65.5) (HIR52-Q33.1)Dental caries/Impaction of teeth (ICD-521.00) (MZL25-Q93.9)Contact dermatitis and other eczema, unspecified cause (ICD-692.9) (NKY56-J23.9)Depression (ICD-311) (BEG36-N45.9)Seizure Disorder (ICD-780.39) (GFL93-O88.9)Brain Tumor (ICD-191.9) ([id number])Problem list reviewed during this update.Current Medications: SEROQUEL [...] was ended.Referral for extraction of #12 and 16.N/V-FillingRoly Wen RDHya by shailesh (08/19/2020 2:39 PM): ; yany (Aug 20 2020 7:29AM): [facility](-). CC: none. Reviewed Xrays. Exam: caries [...] Known Allergies (updated 08/19/2020) Orders:Oral Surgery Referral [[id number]] Clinical Visit Summary Declined Name Value Range Interpretation Code Description Data Cecy rce(s) Supporting Document(s) ID Date Data Source [id number] 08/14/2020 07:17:00 PM EDT [facility] 1 Medication Reconciliation Report [facility] Emergency Department [address] [place] [address] Phone #: ext- [phone] 08/14/2020 19:09 Patient: [...] Name Value Range Interpretation Code Description Data [facility](s) Supporting Document(s) ID Date Data Source [id number] 08/14/2020 07:17:00 PM EDT [place] [address] Medication Administration Record [facility] Emergency Department [address] [place] [address] Phone #: ext- [phone] 19:09 Patient: CAMILO LAWSON Sex: M : 1990 Age: 29yWeight: 81.6 kgHeight/Length: 72 inBMI: 24.4ALLERGIES: No Known Drug AllergyDate/Time Medication Administered Medication Ordered Name Value Range Interpretation Code Description Data [facility](s) Supporting Document(s) ID Date Data Source [id number] 08/14/2020 07:17:00 PM EDT [facility] 1 General Instructions [facility] Emergency Department [address] [place] [address] Phone #: ext- [phone] 08/14/2020 19:09 Patient: CAMILO LAWSON Sex: M : 1990 Age: 29y Anxiety reaction. No hyperventilation.INSTRUCTIONS Warnings: GENERAL WARNINGS: Return or contact your physician immediately if your condition worsens or changes unexpectedly, if not improving as expected, or if other problems arise. Understanding of the discharge instructions verbalized by patient. Follow-up with: [facility], , , [address], [place], [address] Follow up in one week. Call for [...] may experience: Dry mouth 2 General Instructions [facility] Emergency Department [address] [place] [address] Phone #: ext- [phone] 08/14/2020 19:09 Patient: [...] Also, there are certain 3 General Instructions [facility] Emergency Department [address] [place] [address] Phone #: ext- [phone] 08/14/2020 19:09 Patient: [...] andtemporary medicine to help you manage stress.Call [phone] if any of these happen: Trouble breathing [...] and mild pain reliever 4 General Instructions [facility] Emergency Department [address] [place] [address] Phone #: ext- [phone] 08/14/2020 19:09 Patient: CAMILO LAWSON Sex: M : 1990 Age: 29y [id number] [employer]. [address] [place] [address], [place] [address]. All rights reserved. This information is not intended as asubstitute for professional medical care. Always follow your healthcare professional's instructions. You have been given the following additional information: Anxiety Reaction(Electronically signed by Pedro Rizo, 08/14/2020 20:15) Name Value Range Interpretation Code Description Data Cecy rce(s) Supporting Document(s) ID Date Data Source [id number] 08/14/2020 07:17:00 PM EDT [facility] 1 Clinical Report - Nurses [facility] Emergency Department [address] [place] [address] Phone #: ext- [phone] 08/14/2020 19:09 Patient: [...] 1/2 tablet, daily at bedtime. --19:27 08/14/20 Alfonso Buck R.N.AllergiesNo Known Drug Allergy. --19:27 08/14/20 Alfonso [...] no barriers. 2 Clinical Report - Nurses [facility] Emergency Department [address] [place] [address] Phone #: ext- [phone] 08/14/2020 19:09 [id number] Sex: M : 1990 Age: 29y FALL RISK ASSESSMENT: Fall risk assessment completed. No risk factors identified. SKIN INTEGRITY ASSESSMENT: Skin integrity risk assessment completed. No skin integrity risk identified. --19:30 08/14/20 Alfonso Buck R.N. FAMILY HX: No significant family medical history. --19:53 08/14/20 Jack. JudyPHYSICAL [id number] 08/14/20. Ambulatory to room.GENERAL / NEURO / [...] Patient verbalized understanding. Written instructions provided in Finnish. The patient was discharged home and unaccompanied [...] rce(s) Supporting Document(s) ID Date Data Source [id number] 08/14/2020 07:17:00 PM EDT [facility] 1 Clinical Report - Physicians/Mid Levels [facility] Emergency Department [address] [place] [address] Phone #: ext- [phone] 08/14/2020 19:09 Patient: CAMILO LAWSON Sex: M [...] alone. 2 Clinical Report - Physicians/Mid Levels [facility] Emergency Department [address] [place] [address] Phone #: ext- [phone] 08/14/2020 19:09 Patient: CAMILO LAWSON Sex: M [...] patient. 3 Clinical Report - Physicians/Mid Levels [facility] Emergency Department [address] [place] [address] Phone #: ext- [phone] 08/14/2020 19:09 Patient: CAMILO LAWSON Sex: M : 1990 Age: 29y Follow-up with: [facility], , , [address], , [place], [address] Follow up in one week. Call for an appointment.(Electronically signed by Pedro Rizo, 08/14/2020 20:15) Name Value Range Interpretation Code Description Data Cecy rce(s) Supporting Document(s) Procedure Social History Code Duration Value Status Description Data Source(s ) Smoking 07/20/2021 12:00:00 AM EDT Smoker, current status unkn own completed Smoker, current status unknown [facility] ([facility]) Smoking 07/05/2021 12:00:00 AM EDT Smoker, current status unkn own completed Smoker, current status unknown [facility] ([facility]) Smoking 03/29/2021 12:00:00 AM EDT Smoker, current status unkn own completed Smoker, current status unknown [facility] ([facility]) Smoking 02/17/2021 12:00:00 AM EDT Smoker, current status unkn own completed Smoker, current status unknown [facility] ([facility]) Smoking 01/01/2021 12:00:00 AM EST Smoker, current status unkn own completed Smoker, current status unknown [facility] ([facility]) Smoking 11/17/2020 12:00:00 AM EST Smoker, current status unkn own completed Smoker, current status unknown [facility] ([facility]) Smoking 11/02/2020 12:00:00 AM EST Smoker, current status unkn own completed Smoker, current status unknown [facility] ([facility]) Smoking 10/20/2020 12:00:00 AM EST Smoker, current status unkn own completed Smoker, current status unknown [facility] ([facility]) Smoking 09/24/2020 12:00:00 AM EST Smoker, current status unkn own completed Smoker, current status unknown [facility] ([facility]) Smoking 09/02/2020 12:00:00 AM EST Smoker, current status unkn own completed Smoker, current status unknown [facility] ([facility]) Smoking 08/19/2020 12:00:00 AM EDT Smoker, current status unkn own completed Smoker, current status unknown [facility] ([facility]) Smoking 08/18/2020 12:00:00 AM EDT Smoker, current status unkn own completed Smoker, current status unknown [facility] ([facility]) Smoking 07/29/2020 12:00:00 AM EDT Smoker, current status unkn own completed Smoker, current status unknown [facility] ([facility]) Smoking 07/22/2020 12:00:00 AM EDT Smoker, current status unkn own completed Smoker, current status unknown [facility] ([facility]) Smoking 07/10/2020 12:00:00 AM EDT Smoker, current status unkn own completed Smoker, current status unknown [facility])
--- OUTSIDE RECORDS SUMMARY | 2021-08-27 21:36 | CCD ---
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 complaints. 20:21 12/17/20. Patient is acting erratic. reporting feeling depressed. 06:36 12/18/20. Patient awake and requesting to go to [facility]. "Send me to [facility] or send me home" Patient's case discussed with ED physician at [facility] who is familiar with the patient. Dr. Sandra agrees to accept to patient to the ED. 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 ital *FOR MEDICAL PURPOSES ONLY * ID Date Data Source [id number] 12/17/2020 08:23:00 PM [facility] Name Value Range Interpretation Code Description Data Cecy rce(s) Supporting Document(s) [facility]IS [facility] SOURCE [facility] COLOR yellow NORMAL: Yellow [facility] ospital CLARITY clear NORMAL: Clear [facility] spital Specific gravity of Urine by Test strip 1.010 1.001 - 1.030 [facility] pH 7 5 - 9 [facility] al Glucose [Mass/volume] in Urine by Test strip NORM NORMAL: Negat [facility] Bilirubin.total [Presence] in Urine by Test strip NEG NORMAL: Negative [facility] Ketones [Presence] in Urine by Test strip NEG NORMAL: Negative [facility] Protein [Mass/volume] in Urine by Test strip NEG NORMAL: [facility] Nitrite [Presence] in Urine by Test strip NEG NORMAL: Negative [facility] BLOOD NEG NORMAL: Negative [facility] Leukocyte esterase [Presence] in Urine by Test strip NEG [place] L: Negative [facility] Urobilinogen [Mass/volume] in Urine by Test strip NOR less alida n 1.0 mg/dL [facility] MICROSCOPIC Not Indicate [facility] ID Date Data Source [id number] 12/17/2020 07:58:00 PM [facility] Name Value Range Interpretation Code Description Data [facility] rce(s) Supporting Document(s) DRUG SCREEN URINE [facility] URINE DRUG SCREEN Amphetamine [Presence] in Urine by Screen method NEGATIVE NORMAL: N EGATIVE [facility] BARBITURATES NEGATIVE NORMAL: NEGATIVE [facility] BENZO NEGATIVE NORMAL: NEGATIVE [facility] COCAINE NEGATIVE NORMAL: NEGATIVE [facility] Tetrahydrocannabinol [Presence] in Urine NEGATIVE NORMAL: NEGATIVE [facility] OPIATES NEGATIVE NORMAL: NEGATIVE [facility] Phencyclidine [Presence] in Urine by Screen method NEGATIVE NOR MAL: NEGATIVE [facility] \\BLDo\\URINE DRUG SCR EEN INTERPRETATION\\BLDx\\ THE CUTOFFF LEVELS FOR DETECTION ARE FOLLOWS: AMPHETAMINES 1000 ng/ml BARBITUARATES 200 ng/ml BENZODIAZEPINES 100 ng/ml THC 50 ng/ml PHENCYCLIDINE 25 ng/ml OPIATES 300 ng/ml COCAINE 300 ng/ml ALL POSITIVES ARE CONSIDERED PRESUMPTIVE POSITIVE CONFIRMATION WILL BE PERFORMED AT PHYSICIAN REQUEST. ID Date Data Source [id number] 12/17/2020 07:20:00 PM EST [facility] Name Value Range Interpretation Code Description Data Cecy rce(s) Supporting Document(s) COVID19 Case rprt NOT DETECTED [facility] This lab was ordered by [facility] and reported by [facility]. ID Date Data Source [id number] 12/17/2020 08:23:00 PM EST [facility] Name Value Range Interpretation Code Description Data Cecy rce(s) Supporting Document(s) Thyrotropin [Units/volume] in Serum or Plasma by Detec tion limit <= 0.05 mIU/L 0.47 uIU/mL 0.47 - 5.01 [facility] ID Date Data Source [id number] 12/17/2020 08:10:00 PM [facility] Name Value Range Interpretation Code Description Data Cecy rce(s) Supporting Document(s) Ethanol [Moles/volume] in Blood 265.0 MG/DL [facility] ALCOHOL % 0.27 % 0.00 - 0.01 H [facility] ital *FOR MEDICAL PURPOSES ONLY * ID Date Data Source [id number] 12/17/2020 08:10:00 PM [facility] Name Value Range Interpretation Code Description Data Cecy rce(s) Supporting Document(s) BASIC METABOLIC PANEL [facility] BASIC METABOLIC PANEL Sodium [Moles/volume] in Serum or Plasma 142 mEq/L 134 - 153 [facility] Potassium [Moles/volume] in Serum or Plasma 3.3 mEq/L 3.6 - 5.0 L [facility] Chloride [Moles/volume] in Serum or Plasma 104 mEq/L 98 - 107 [facility] Carbon dioxide, total [Moles/volume] in Serum or Plasma 28 MEQ/L 22 - 30 [facility] Glucose [Mass/volume] in Serum or Plasma 91 MG/DL 70 - 99 [facility] BUN 5 MG/DL 7 - 21 L [facility] Creatinine [Mass/volume] in Serum or Plasma 0.6 MG/DL 0.7 - 1.5 L [facility] BUN/CREAT 8 8 - 27 [facility] Calcium [Mass/volume] in Serum or Plasma 9.0 MG/DL 8.4 - 10.2 [facility] Anion gap 3 in Serum or Plasma 10.0 mmol/L 8.0 - 16.0 [facility] AGE 30 yrs [facility] al AFR AMER GFR >60 mL/min [facility] NON-AA GFR >60 mL/min [facility] ital Male GFR Inter prentation [...] >32 mL/min Normal ID Date Data Source [id number] 12/17/2020 08:10:00 PM [facility] Name Value Range Interpretation Code Description Data Cecy rce(s) Supporting Document(s) SALICYLATE <0.3 mg/dL 2.0 - 20.[address] [facility] ID Date Data Source [id number] 12/17/2020 08:10:00 PM [facility] Name Value Range Interpretation Code Description Data Cecy rce(s) Supporting Document(s) Acetaminophen [Presence] in Urine <5.0 UG/ML 0.0 - 30.0 [facility] ID Date Data Source [id number] 12/17/2020 07:48:00 PM EST [facility] NOT DETECTEDNOT DETECTED{ PROC EDURAL CONTROL VALID KIT LOT # _[id number] 12/17/20.JOVANNA. KIT EXP DATE _05-81-3914 12/17/20.JOVANNA. NORMAL RANGE IS NOT DETECTEDNEGATIVE RESULTS [...] rce(s) Supporting Document(s) ID Date Data Source [id number] 12/17/2020 07:34:00 PM [facility] Name Value Range Interpretation Code Description Data Cecy rce(s) Supporting Document(s) CBC W/AUTOMATED DIFF [facility] COMPLETE BLOOD COUNT Leukocytes [#/volume] in Blood by Automated count 5.9 10^3/uL 4.2 - 1 1.0 [facility] Erythrocytes [#/volume] in Blood by Automated count 5.71 10^6/uL 4. 50 - 6.30 [facility] Hemoglobin [Mass/volume] in Blood 18.0 g/dL 14.0 - 16.0 H [facility] Hematocrit [Volume Fraction] of Blood by Automated count 50.9 % 4 1.0 - 51.0 [facility] Erythrocyte mean corpuscular volume [Entitic volume] by Auto mated count 89.1 fL 80.0 - 94.0 [facility] Erythrocyte mean corpuscular hemoglobin [Entitic mass] by Automated count 31.5 pg 27.0 - 34.0 [facility] Erythrocyte mean corpuscular hemoglobin concentration [Mass/volume] by Automated count 35.4 g/dL 31.0 - 36.0 [facility] Erythrocyte distribution width [Ratio] by Automated count 12.6 % 11.5 - 14.8 [facility] Platelets [#/volume] in Blood by Automated count 304 10^3/uL 150 - 45 0 [facility] Platelet mean volume [Entitic volume] in Blood by Automated count 9.2 fL 7.4 - 10.4 [facility] Neutrophils/100 leukocytes in Blood by Automated count 46.7 % 37. 0 - 80.0 [facility] Lymphocytes/100 leukocytes in Blood by Manual count 43.1 % 25.0 - 40.0 H [facility] Monocytes/100 leukocytes in Blood by Automated count 7.3 % 3.0 - 8.0 [facility] Eosinophils/100 leukocytes in Blood by Automated count 1.5 % 0.0 - 7.0 [facility] Basophils/100 leukocytes in Blood by Automated count 0.7 % 0.0 - 2.0 [facility] %IG 0.7 % 0.0 - 0.[address] [facility] %NRBC 0.0 % 0.0 - 0.0 [facility] al Neutrophils [#/volume] in Blood by Automated count 2.75 10^3/uL 2.00 - 6.90 [facility] Lymphocytes [#/volume] in Blood by Automated count 2.54 10^3/uL 0.60 - 3.40 [facility] Monocytes [#/volume] in Blood by Automated count 0.43 10^3/uL 0.00 - 0.90 [facility] Eosinophils [#/volume] in Blood by Automated count 0.09 10^3/uL 0.00 - 0.70 [facility] Basophils [#/volume] in Blood by Automated count 0.04 10^3/uL 0.00 - 0.20 [facility] #IG 0.04 10^3/uL 0.00 - 0.10 [facility] #NRBC 0.00 10^3/uL 0.00 - 0.00 [facility] MANUAL DIFF NOT INDICATED [facility] RBC MORPH NOT INDICATED [facility] spital ID Date Data Source [id number] 11/19/2020 06:01:00 AM EST [facility] [address] [place] [address] RESPIRATORY CARE REPORT ==== ---------NAME------- NUMBER SEX AGE ADMIT DISC. XRAY# F/C JULIAN Navarro [id number] 11/17/20 11/18/20 [id number] XBE E/R DATE OF : 1990 M/R# [id number] PH#: [phone] TR-03 LOCATION: EMERGENCY DEPT EKG [id number] COMP LETE:11/18/20 01:52 VMT 10179 PHYSICIAN: JUDY Cr Name Value Range Interpretation Code Description Data Cecy rce(s) Supporting Document(s) ID Date Data Source [id number] 11/17/2020 10:05:00 PM EST [facility] 1 OrderSheet [facility] Emergency Department [address] [place] [address] Phone #: ext- [phone] 11/17/2020 22:04 Patient: [...] Priority Entered Acknowledged InitialedMEDICATION/IV/DRIP/FLUID ORDERS 2 OrderSheet [facility] Emergency Department [address] [place] [address] Phone #: ext- [phone] 11/17/2020 22:04 Patient: [...] rce(s) Supporting Document(s) ID Date Data Source [id number] 11/17/2020 10:05:00 PM [facility] 1 Medication Reconciliation Report [facility] Emergency Department [address] [place] [address] Phone #: ext [phone] 11/17/2020 22:04 Patient: CAMILO LAWSON Sex: M [...] Name Value Range Interpretation Code Description [facility](s[facility] ID Date Data Source [id number] 11/17/2020 10:05:00 PM [facility] 1 Medication Administration Record [facility] Emergency Department [address] [place] [address] Phone #: [phone] qlq- [phone] 11/17/2020 22:04 Patient: CAMILO LAWSON Sex: M : 1990 Age: 30yWeight: 83.9 kgHeight/Length: 70 inBMI: 26.5ALLERGIES: No Known Drug Allergy Date/Time Medication Administered Medication OrderedGiven ACETAMINOPHEN [PO] Acetaminophen PO 1000 mg03:27 11/18/2020 Dose: 1000 mg Tablets PO (NOW x1)Shweta Dorado R.N. Name Value Range Interpretation Code Description Data Cecy rce(s) Supporting Document(s) ID Date Data Source [id number] 11/17/2020 10:05:00 PM [facility] 1 General Instructions [facility] Emergency Department [address] [place] [address] Phone #: ext [phone] 11/17/2020 22:04 Patient: CAMILO LAWSON Sex: M : 1990 Age: 30yAcute bipolar disorder with the current episode being severely manic without psychosis.Recurrent moderate major depressive disorder without psychosis.(Electronically signed by Pedro Rizo 11/18/2020 05:29) Name Value Range Interpretation Code Description Data Cecy rce(s) Supporting Document(s) ID Date Data Source [id number] 11/17/2020 10:05:00 PM [facility] 1 Clinical Report - Nurses [facility] Emergency Department [address] [place] [address] Phone #: ext [phone] 11/17/2020 22:04 Patient: CAMILO LAWSON Sex: M : 1990 Age: 30yTRIAGEArrived by EMS. Historian: patient. ( Patient reports feeling anxious and being depressed today. Deniesany ETOH today, did some marijuana this morning. Patient has a history anxiety/depression. States that 3days ago had a psuedoseizure and was evaluated at [facility]. Denies any SI.).Triage time: 22:03 11/17/2020. Acuity: LEVEL 4.Chief Complaint: ANXIETY.Alert. No acute distress.Onset: today. He has had anxiety and describes feelings of depression. 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 --22:15 11/17/20 Shweta Dorado R.N.22:08 11/17/20. BP: [...] "Do you 2 Clinical Report - Nurses [facility] Emergency Department [address] [place] [address] Phone #: ext- [phone] 11/17/2020 22:04 Patient: [...] this time to come back in the [place] ER and wait for transfer to another facility. Patient is c ooperative at this time.). --01:13 11/18/20 Shweta Dorado R.N. ( Patient is sleeping at this time.). --01:51 11/18/20 Shweta Dorado R.N. Patient waiting for disposition. ( Patient updated on plan of care, information has been faxed to [facility] for review. Patient is cooperative at this [...] will make 3 Clinical Report - Nurses [facility] Emergency Department [address] [place] [address] Phone #: ext- [phone] 11/17/2020 22:04 Patient: CAMILO LAWSON Sex: M : 1990 Age: 30y MD aware.). Call light placed in reach. --03:12 11/18/20 Jordin Hitchcock 03:27 11/18/2020 Acetaminophen PO Tablets 1000 mg given. Allergies verified. Information reviewed with patient. --03:27 11/18/20 Shweta Dorado R.N. ( Attempted to call [facility] regarding transfer.). --04:45 11/18/20 Shweta Dorado R.N.DISPOSITION / DISCHARGE Departure time: 05:37 11/18/2020. Condition at departure: unchanged. Transferred to [facility]. Visit overview, summary of care (CCDA), Emtala [...] rce(s) Supporting Document(s) ID Date Data Source [id number] 11/17/2020 10:05:00 PM EST [facility] 1 Clinical Report - Physicians/Mid Levels [facility] Emergency Department [address] [place] [address] Phone #: ext- [phone] 11/17/2020 22:04 Patient: CAMILO LAWSON [facility]#: [id number] Sex: M : 1990 Age: 30y Time [...] Surgery. 2 Clinical Report - Physicians/Mid Levels [facility] Emergency Department [address] [place] [address] Phone #: ext- [phone] 11/17/2020 22:04 Patient: CAMILO LAWSON Sex: M [...] # _[id number] 11/18/20.38.AB . KIT EXP DATE _27-15-64 11/18/20.38.AB . NORMAL RANGE IS NOT DETECTEDNEGATIVE [...] DIFF 3 Clinical Report - Physicians/Mid Levels [facility] Emergency Department [address] [place] [address] Phone #: ext- [phone] 11/17/2020 22:04 Patient: CAMILO LAWSON Sex: M [...] Male GFR Interprentation 20-49 yrs >60 mL/min Dvpdhz67-44 yrs >56 mL/min Normal 60-69 yrs >49 mL/min Normal 70-79yrs>42 mL/min Normal 80 and above >35 mL/min Normal Female GFRInterpretation 20-39 yrs >60 mL/min Normal 40-49 yrs >58 mL/minNormal 50-59 yrs >51 mL/min Normal 60-69 yrs >45 mL/min Lxxknq75-87 yrs >39 mL/min Normal 80 and above >32 mL/min Normal 4 Clinical Report - Physicians/Mid Levels [facility] Emergency Department [address] [place] [address] Phone #: ext- [phone] 11/17/2020 22:04 Patient: CAMILO LAWSON Sex: M : 1990 Age: 30y TSH: (LULU: 11/17/2020 22:49) ( [facility] 11/17/2020 23:31) Final results Test Result Flag Units (Reference) TSH 1.06 uIU/mL (0.47 - 5.01) Salicylate Level: (LULU: 11/17/2020 22:49) ( WvgRcvd 11/17/2020 23:31) Final results Test Result Flag Units (Reference) SALICYLATE <0.3 L mg/dL (2.0 - 20.0) ETOH: (LULU: 11/17/2020 22:49) ( MsgRcvd 11/17/2020 23:31) Final results Test Result Flag Units (Reference) ALCOHOL <10.0 MG/DL ALCOHOL % 0.01 % (0.00 - 0.01) *FOR MEDICAL PURPOSES ONLY* Drug Screen-Urine: (LULU: 11/17/2020 23:24) ( [facility] 11/17/2020 23:46) Final results Test Result Flag [...] cleared. 5 Clinical Report - Physicians/Mid Levels [facility] Emergency Department [address] [place] [address] Phone #: ext- [phone] 11/17/2020 22:04 Patient: CAMILO LAWSON Sex: M : 1990 Age: 30y 05:26 11/18/20. Patient accepted to [facility]. Dr. Villagomez is the accepting physician. Disposition: Benefits, risks and alternatives to transfer explained to patient. Transferred to [facility]. Summary of care (CCDA) pro vided to transfer facility.CLINICAL IMPRESSION Acute bipolar disorder with the current episode being severely manic without psychosis. Recurrent moderate major depressive disorder without psychosis.(Electronically signed by Pedro Rizo 11/18/2020 05:29) Name Value Range Interpretation Code Description Data [facility] rce(s) Supporting Document(s) ID Date Data Source [id number] 11/17/2020 10:05:00 PM [facility] Addenda for CAMILO LAWSON VisitID: [id number] Date: 2:39Faxed chart to [facility] for psych review at 0130(Electronically signed by Justin Maldonado - 11/18/2020 2:39) Name Value Range Interpretation Code Description Data [facility] Supporting Document(s) ID Date Data Source [id number] 11/18/2020 12:39:00 AM [facility] NOT DETECTEDNOT DETECTED{ PROC EDURAL CONTROL VALID KIT LOT # _[id number] 11/18/20.0039.AB . KIT EXP DATE _92-44-75 11/18/20.0039.AB . NORMAL RANGE IS NOT DETECTEDNEGATIVE RESULTS SHOULD BE TREATED PRESUMPTIVE AND, IF INCONSISTENT WITHCLINICAL SIGNS AND SYMPTOMS OR NECESSARY FOR PATIENT MANAGEMENT, SHOULD BETESTED WITH DIFFERENT AUTHORIZED OR CLEARED MOLECULAR TESTS. NEGATIVE RESULTSDO NOT PRECLUDE SARS-CoV-2 INFECTION AND SHOULD NOT BE USED THE SOLE BASISFOR PATIENT MANAGEMENT DECISIONS. Name Value Range Interpretation Code Description Data [facility] Supporting Document(s) ID Date Data Source [id number] 11/17/2020 11:46:00 PM [facility] Name Value Range Interpretation Code Description Data [facility](s) Supporting Document(s) DRUG SCREEN URINE [facility] URINE DRUG SCREEN Amphetamine [Presence] in Urine by Screen method NEGATIVE NORMAL: N EGATIVE [facility] BARBITURATES NEGATIVE NORMAL: NEGATIVE [facility] BENZO NEGATIVE NORMAL: NEGATIVE [facility] COCAINE NEGATIVE NORMAL: NEGATIVE [facility] Tetrahydrocannabinol [Presence] in Urine NEGATIVE NORMAL: NEGATIVE [facility] OPIATES NEGATIVE NORMAL: NEGATIVE [facility] Phencyclidine [Presence] in Urine by Screen method NEGATIVE NOR MAL: NEGATIVE [facility] \\BLDo\\URINE DRUG SCR EEN INTERPRETATION\\BLDx\\ THE CUTOFFF LEVELS FOR DETECTION ARE FOLLOWS: AMPHETAMINES 1000 ng/ml BARBITUARATES 200 ng/ml BENZODIAZEPINES 100 ng/ml THC 50 ng/ml PHENCYCLIDINE 25 ng/ml OPIATES 300 ng/ml COCAINE 300 ng/ml ALL POSITIVES ARE CONSIDERED PRESUMPTIVE POSITIVE CONFIRMATION WILL BE PERFORMED AT PHYSICIAN REQUEST. ID Date Data Source [id number] 11/17/2020 11:31:00 PM [facility] Name Value Range Interpretation Code Description Data Cecy rce(s) Supporting Document(s) SALICYLATE <0.3 mg/dL 2.0 - 20.0 L [facility] pital ID Date Data Source [id number] 11/17/2020 11:31:00 PM [facility] Name Value Range Interpretation Code Description Data Cecy rce(s) Supporting Document(s) COMPREHENSIVE METABOLIC PANEL [facility] COMPREHENSIVE METABOLIC PANEL Sodium [Moles/volume] in Serum or Plasma 141 mEq/L 134 - 153 [facility] Potassium [Moles/volume] in Serum or Plasma 3.8 mEq/L 3.6 - 5.0 [facility] Chloride [Moles/volume] in Serum or Plasma 104 mEq/L 98 - 107 [facility] Carbon dioxide, total [Moles/volume] in Serum or Plasma 23 MEQ/L 22 - 30 [facility] Glucose [Mass/volume] in Serum or Plasma 116 MG/DL 70 - 99 H [facility] BUN 8 MG/DL 7 - 21 [facility] al Creatinine [Mass/volume] in Serum or Plasma 0.6 MG/DL 0.7 - 1.5 L [facility] BUN/CREAT 13 8 - 27 [facility] Protein [Mass/volume] in Serum or Plasma 6.1 G/DL 6.3 - 8.2 L [facility] Albumin [Mass/volume] in Serum or Plasma 4.8 G/DL 3.9 - 5.0 [facility] Globulin [Mass/volume] in Serum by calculation 1.3 GM/DL 2.4 - 3.2 L [facility] A/G RATIO 3.7 0.8 - 2.0 H [facility] al Calcium [Mass/volume] in Serum or Plasma 9.0 MG/DL 8.4 - 10.2 [facility] Bilirubin.total [Mass/volume] in Serum or Plasma <0.7 MG/DL 0.2 - 1.3 [facility] Alkaline phosphatase [Enzymatic activity/volume] in Serum or Plasma 95 U/L 38 - 126 [facility] Aspartate aminotransferase [Enzymatic activity/volume] in Serum or Plasma 27 U/L 5 - 40 [facility] Alanine aminotransferase [Enzymatic activity/volume] in Seru m or Plasma 24 U/L 7 - 56 [facility] Anion gap 3 in Serum or Plasma 14.0 mmol/L 8.0 - 16.0 [facility] AGE 30 yrs [facility] al NON-AA GFR >60 mL/min [facility] ital AFR AMER GFR >60 mL/min [facility] Male GFR In terprentation 20-49 [...] >32 mL/min Normal ID Date Data Source [id number] 11/17/2020 11:31:00 PM [facility] Name Value Range Interpretation Code Description Data Cecy rce(s) Supporting Document(s) Ethanol [Moles/volume] in Blood <10.0 MG/DL [facility] ALCOHOL % 0.01 % 0.00 - 0.01 [facility] ital *FOR MEDICAL PURPOSES ONLY * ID Date Data Source [id number] 11/17/2020 11:31:00 PM [facility] Name Value Range Interpretation Code Description Data Cecy rce(s) Supporting Document(s) Thyrotropin [Units/volume] in Serum or Plasma by Detec tion limit <= 0.05 mIU/L 1.06 uIU/mL 0.47 - 5.01 [facility] ID Date Data Source [id number] 11/17/2020 10:56:00 PM EST [facility] Name Value Range Interpretation Code Description Data Cecy rce(s) Supporting Document(s) CBC W/AUTOMATED DIFF [facility] COMPLETE BLOOD COUNT Leukocytes [#/volume] in Blood by Automated count 8.3 10^3/uL 4.2 - 1 1.0 [facility] Erythrocytes [#/volume] in Blood by Automated count 5.28 10^6/uL 4. 50 - 6.30 [facility] Hemoglobin [Mass/volume] in Blood 16.1 g/dL 14.0 - 16.0 H [facility] Hematocrit [Volume Fraction] of Blood by Automated count 46.5 % 4 1.0 - 51.0 [facility] Erythrocyte mean corpuscular volume [Entitic volume] by Auto mated count 88.1 fL 80.0 - 94.0 [facility] Erythrocyte mean corpuscular hemoglobin [Entitic mass] by Automated count 30.5 pg 27.0 - 34.0 [facility] Erythrocyte mean corpuscular hemoglobin concentration [Mass/volume] by Automated count 34.6 g/dL 31.0 - 36.0 [facility] Erythrocyte distribution width [Ratio] by Automated count 12.4 % 11.5 - 14.8 [facility] Platelets [#/volume] in Blood by Automated count 299 10^3/uL 150 - 45 0 [facility] Platelet mean volume [Entitic volume] in Blood by Automated count 9.2 fL 7.4 - 10.4 [facility] Neutrophils/100 leukocytes in Blood by Automated count 68.8 % 37. 0 - 80.0 [facility] Lymphocytes/100 leukocytes in Blood by Manual count 21.8 % 25.0 - 40.0 L [facility] Monocytes/100 leukocytes in Blood by Automated count 7.4 % 3.0 - 8.0 [facility] Eosinophils/100 leukocytes in Blood by Automated count 0.7 % 0.0 - 7.0 [facility] Basophils/100 leukocytes in Blood by Automated count 0.8 % 0.0 - 2.0 [facility] %IG 0.5 % 0.0 - 0.[address] [facility] al %NRBC 0.0 % 0.0 - 0.0 [facility] al Neutrophils [#/volume] in Blood by Automated count 5.69 10^3/uL 2.00 - 6.90 [facility] Lymphocytes [#/volume] in Blood by Automated count 1.80 10^3/uL 0.60 - 3.40 [facility] Monocytes [#/volume] in Blood by Automated count 0.61 10^3/uL 0.00 - 0.90 [facility] Eosinophils [#/volume] in Blood by Automated count 0.06 10^3/uL 0.00 - 0.70 [facility] Basophils [#/volume] in Blood by Automated count 0.07 10^3/uL 0.00 - 0.20 [facility] #IG 0.04 10^3/uL 0.00 - 0.10 [facility] #NRBC 0.00 10^3/uL 0.00 - 0.00 [facility] MANUAL DIFF NOT INDICATED [facility] RBC MORPH NOT INDICATED [facility] ID Date Data Source [id number] 11/18/2020 01:40:00 AM [facility] Name Value Range Interpretation Code Description Data Cecy rce(s) Supporting Document(s) Acetaminophen [Presence] in Urine <5.0 UG/ML 0.0 - 30.0 [facility] ID Date Data Source [id number] 09/06/2020 07:03:00 PM [facility] 1 OrderSheet [facility] Emergency Department [address] [place] [address] Phone #: ext- [phone] 09/06/2020 19:02 Patient: [...] BlairOral W/O MAGI Low Physician;(Oxygen?(No)) 2 OrderSheet [facility] Emergency Department [address] [place] [address] Phone #: ext- [phone] 09/06/2020 19:02 Patient: [...] rce(s) Supporting Document(s) ID Date Data Source [id number] 09/06/2020 07:03:00 PM EST [facility] 1 Medication Reconciliation Report [facility] Emergency Department [address] [place] [address] Phone #: ext- [phone] 09/06/2020 19:02 Patient: [...] rce(s) Supporting Document(s) ID Date Data Source [id number] 09/06/2020 07:03:00 PM [place] [address] Medication Administration Record [facility] Emergency Department [address] [place] [address] Phone #: ext [phone] 19:02 Patient: CAMILO LASWON Sex: M : 1990 Age: 29yWeight: 90.2 kgHeight/Length: 66 inBMI: 32.1ALLERGIES: No Known Drug AllergyDate/Time Medication Administered Medication Ordered Name Value Range Interpretation Code Description Data [facility](s) Supporting Document(s) ID Date Data Source [id number] 09/06/2020 07:03:00 PM [place] [address] General Instructions [facility] Emergency Department [address] [place] [address] Phone #: ext- [phone] 09/06/2020 19:02 Patient: [...] rce(s) Supporting Document(s) ID Date Data Source [id number] 09/06/2020 07:03:00 PM EST [facility] 1 Clinical Report - Nurses [facility] Emergency Department [address] [place] [address] Phone #: ext- [phone] 09/06/2020 19:02 Patient: [...] (friend). Occurred at home. Police department notified.Treatment YARD SUPERVISOR:None.SEPSIS SCREEN: SIRS Screen negative. Sepsis Screen negative. [...] SURGERIES:Brain surgery. 2 Clinical Report - Nurses [facility] Emergency Department [address] [place] [address] Phone #: ext- [phone] 09/06/2020 19:02 Patient: [...] well.). --19:41 3 Clinical Report - Nurses [facility] Emergency Department [address] [place] [address] Phone #: ext- [phone] 09/06/2020 19:02 Patient: CAMILO LAWSON Sex: M : 1990 Age: 29y 09/06/20 Peggy Chapin R.N. ( [facility] in to speak with pt.). --19:42 09/06/20 Peggy Chapin R.N. 20:20 09/06/20. Blood samples drawn by lab. Urine collected. --22:41 09/06/20 Peggy Chapin R.N. 20:50 09/06/20. 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 - 10.2 [facility] Bilirubin.total [Mass/volume] in Serum or Plasma 0.8 MG/DL 0.2 - 1.3 [facility] Alkaline phosphatase [Enzymatic activity/volume] in Serum or Plasma 108 U/L 38 - 126 [facility] Aspartate aminotransferase [Enzymatic activity/volume] in Serum or Plasma 17 U/L 5 - 40 [facility] Alanine aminotransferase [Enzymatic activity/volume] in Seru m or Plasma 18 U/L 7 - 56 [facility] Anion gap 3 in Serum or Plasma 7.0 mmol/L 8.0 - 16.0 L [facility] AGE 29 yrs [facility] al NON-AA GFR >60 mL/min [facility] ital AFR AMER GFR >60 mL/min [facility] Male GFR In terprentation 20-49 [...] >32 mL/min Normal ID Date Data Source [id number] 08/29/2020 01:45:00 AM [facility] Name Value Range Interpretation Code Description Data Cecy rce(s) Supporting Document(s) Lactate [Moles/volume] in Serum or Plasma 1.0 MMOL/L 0.2 - 2.2 [facility] ID Date Data Source [id number] 08/29/2020 01:42:00 AM [facility] Name Value Range Interpretation Code Description Data Cecy rce(s) Supporting Document(s) CBC W/AUTOMATED DIFF [facility] COMPLETE BLOOD COUNT Leukocytes [#/volume] in Blood by Automated count 8.4 10^3/uL 4.2 - 1 1.0 [facility] Erythrocytes [#/volume] in Blood by Automated count 4.97 10^6/uL 4. 50 - 6.30 [facility] Hemoglobin [Mass/volume] in Blood 15.1 g/dL 14.0 - 16.0 [facility] Hematocrit [Volume Fraction] of Blood by Automated count 43.8 % 4 1.0 - 51.0 [facility] Erythrocyte mean corpuscular volume [Entitic volume] by Auto mated count 88.1 fL 80.0 - 94.0 [facility] Erythrocyte mean corpuscular hemoglobin [Entitic mass] by Automated count 30.4 pg 27.0 - 34.0 [facility] Erythrocyte mean corpuscular hemoglobin concentration [Mass/volume] by Automated count 34.5 g/dL 31.0 - 36.0 [facility] Erythrocyte distribution width [Ratio] by Automated count 12.6 % 11.5 - 14.8 [facility] Platelets [#/volume] in Blood by Automated count 258 10^3/uL 150 - 45 0 [facility] Platelet mean volume [Entitic volume] in Blood by Automated count 9.9 fL 7.4 - 10.4 [facility] Neutrophils/100 leukocytes in Blood by Automated count 59.4 % 37. 0 - 80.0 [facility] Lymphocytes/100 leukocytes in Blood by Manual count 28.6 % 25.0 - 40.0 [facility] Monocytes/100 leukocytes in Blood by Automated count 8.9 % 3.0 - 8.0 H [facility] Eosinophils/100 leukocytes in Blood by Automated count 2.1 % 0.0 - 7.0 [facility] Basophils/100 leukocytes in Blood by Automated count 0.6 % 0.0 - 2.0 [facility] %IG 0.4 % 0.0 - 0.0 H [facility] al %NRBC 0.0 % 0.0 - 0.0 [facility] al Neutrophils [#/volume] in Blood by Automated count 4.99 10^3/uL 2.00 - 6.90 [facility] Lymphocytes [#/volume] in Blood by Automated count 2.40 10^3/uL 0.60 - 3.40 [facility] Monocytes [#/volume] in Blood by Automated count 0.75 10^3/uL 0.00 - 0.90 [facility] Eosinophils [#/volume] in Blood by Automated count 0.18 10^3/uL 0.00 - 0.70 [facility] Basophils [#/volume] in Blood by Automated count 0.05 10^3/uL 0.00 - 0.20 [facility] #IG 0.03 10^3/uL 0.00 - 0.10 [facility] ospital #NRBC 0.00 10^3/uL 0.00 - 0.00 [facility] osp[facility] MANUAL DIFF NOT INDICATED [facility] RBC MORPH NOT INDICATED [facility] spital ID Date Data Source [id number] 08/29/2020 01:40:00 AM [facility] Name Value Range Interpretation Code Description Data Cecy rce(s) Supporting Document(s) DRUG SCREEN URINE [facility] URINE DRUG SCREEN Amphetamine [Presence] in Urine by Screen method NEGATIVE NORMAL: N EGATIVE [facility] BARBITURATES NEGATIVE NORMAL: NEGATIVE [facility] BENZO NEGATIVE NORMAL: NEGATIVE [facility] COCAINE NEGATIVE NORMAL: NEGATIVE [facility] Tetrahydrocannabinol [Presence] in Urine NEGATIVE NORMAL: NEGATIVE [facility] OPIATES NEGATIVE NORMAL: NEGATIVE [facility] Phencyclidine [Presence] in Urine by Screen method NEGATIVE NOR MAL: NEGATIVE [facility] \\BLDo\\URINE DRUG SCR EEN INTERPRETATION\\BLDx\\ THE CUTOFFF LEVELS FOR DETECTION ARE FOLLOWS: AMPHETAMINES 1000 ng/ml BARBITUARATES 200 ng/ml BENZODIAZEPINES 100 ng/ml THC 50 ng/ml PHENCYCLIDINE 25 ng/ml OPIATES 300 ng/ml COCAINE 300 ng/ml ALL POSITIVES ARE CONSIDERED PRESUMPTIVE POSITIVE CONFIRMATION WILL BE PERFORMED AT PHYSICIAN REQUEST. ID Date Data Source [id number] 08/29/2020 01:25:00 AM [facility] Name Value Range Interpretation Code Description Data Cecy rce(s) Supporting Document(s) URINALYSIS [facility] ak[place]ha URINALYSIS SOURCE R [facility] COLOR yellow NORMAL: Yellow [facility] CLARITY clear NORMAL: Clear [facility] Specific gravity of Urine by Test strip 1.010 1.001 - 1.030 [facility] pH 6.5 5 - 9 [facility] Glucose [Mass/volume] in Urine by Test strip NORM NORMAL: Negat [facility] Bilirubin.total [Presence] in Urine by Test strip NEG NORMAL: Negative [facility] Ketones [Presence] in Urine by Test strip NEG NORMAL: Negative [facility] Protein [Mass/volume] in Urine by Test strip NEG NORMAL: Negat [facility] Nitrite [Presence] in Urine by Test strip NEG NORMAL: Negative [facility] BLOOD NEG NORMAL: Negative [facility] Leukocyte esterase [Presence] in Urine by Test strip NEG [place] L: Negative [facility] Urobilinogen [Mass/volume] in Urine by Test strip NOR less alida n 1.0 mg/dL [facility] MICROSCOPIC Not Indicate [facility] ID Date Data Source [id number] 08/19/2020 01:52:52 PM EDT [facility] Vital SignsBlood Pressure: 138/82 Patient History Medical History:Brain TumorSeizure DisorderDepressionHx of kidney stonesBipolarSurgical History:Partial lobectomyFamily History:No known family historySocial/Personal History: Smoking Status: current some day smokerDo you vape? NoCurrent Problems: Normal examination (ICD-V65.5) (ZXS37-V36.1)Dental caries/Impaction of teeth (ICD-521.00) (DKI14-W29.9)Contact dermatitis and other eczema, unspecified cause (ICD-692.9) (KUO37-A19.9)Depression (ICD-311) (HGV52-Z15.9)Seizure Disorder (ICD-780.39) (FRG52-U97.9)Brain Tumor (ICD-191.9) (IIZ54-E04.9)Problem list reviewed during this update.Current Medications: SEROQUEL [...] PM): ; yany (Aug 20 2020 7:29AM): [facility](-). CC: none. Reviewed Xrays. Exam: caries [...] Known Allergies (updated 08/19/2020) Orders:Oral Surgery Referral [[id number]] Clinical Visit Summary Declined Name Value Range Interpretation Code Description Data Cecy rce(s) Supporting Document(s) ID Date Data Source [id number] 08/14/2020 07:17:00 PM EDT [facility] 1 Medication Reconciliation Report [facility] Emergency Department [address] [place] [address] Phone #: ext- [phone] 08/14/2020 19:09 Patient: [...] Name Value Range Interpretation Code Description Data [facility](s) Supporting Document(s) ID Date Data Source [id number] 08/14/2020 07:17:00 PM EDT [place] [address] Medication Administration Record [facility] Emergency Department [address] [place] [address] Phone #: ext- [phone] 19:09 Patient: CAMILO LAWSON Sex: M : 1990 Age: 29yWeight: 81.6 kgHeight/Length: 72 inBMI: 24.4ALLERGIES: No Known Drug AllergyDate/Time Medication Administered Medication Ordered Name Value Range Interpretation Code Description Data [facility](s) Supporting Document(s) ID Date Data Source [id number] 08/14/2020 07:17:00 PM EDT [facility] 1 General Instructions [facility] Emergency Department [address] [place] [address] Phone #: ext- [phone] 08/14/2020 19:09 Patient: CAIMLO LAWSON Sex: M : 1990 Age: 29y Anxiety reaction. No hyperventilation.INSTRUCTIONS Warnings: GENERAL WARNINGS: Return or contact your physician immediately if your condition worsens or changes unexpectedly, if not improving as expected, or if other problems arise. Understanding of the discharge instructions verbalized by patient. Follow-up with: [facility], , , [address], [place], [address] Follow up in one week. Call for [...] may experience: Dry mouth 2 General Instructions [facility] Emergency Department [address] [place] [address] Phone #: ext- [phone] 08/14/2020 19:09 Patient: [...] Also, there are certain 3 General Instructions [facility] Emergency Department [address] [place] [address] Phone #: ext- [phone] 08/14/2020 19:09 Patient: [...] andtemporary medicine to help you manage stress.Call [phone] if any of these happen: Trouble breathing [...] and mild pain reliever 4 General Instructions [facility] Emergency Department [address] [place] [address] Phone #: ext- [phone] 08/14/2020 19:09 Patient: CAMILO LAWSON Sex: M : 1990 Age: 29y [phone] [employer]. [address] [place] [address], [place] [address]. All rights reserved. This information is not intended as asubstitute for professional medical care. Always follow your healthcare professional's instructions. You have been given the following additional information: Anxiety Reaction(Electronically signed by Pedro Rizo, 08/14/2020 20:15) Name Value Range Interpretation Code Description Data Cecy rce(s) Supporting Document(s) ID Date Data Source [id number] 08/14/2020 07:17:00 PM EDT [facility] 1 Clinical Report - Nurses [facility] Emergency Department [address] [place] [address] Phone #: ext- [phone] 08/14/2020 19:09 Patient: [...] tablet, daily at bedtime. --19:27 08/14/20 Alfonso Bcuk R.N.AllergiesNo Known Drug Allergy. --19:27 08/14/20 Alfonso [...] no barriers. 2 Clinical Report - Nurses [facility] Emergency Department [address] [place] [address] Phone #: ext- [phone] 08/14/2020 19:09 [id number] Sex: M : 1990 Age: 29y FALL RISK ASSESSMENT: Fall risk assessment completed. No risk factors identified. SKIN INTEGRITY ASSESSMENT: Skin integrity risk assessment completed. No skin integrity risk identified. --19:30 08/14/20 Alfonso Buck R.N. FAMILY HX: No significant family medical history. --19:53 08/14/20 Jack. JudyPHYSICAL [id number] 08/14/20. Ambulatory to room.GENERAL / NEURO / [...] Patient verbalized understanding. Written instructions provided in [place]. The patient was discharged home and unaccompanied at time of discharge. He left ambulatory and via taxi. 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 --20:04 08/14/20 Carito Barry R.N. 20:03 08/14/20. BP: 141/93. MAP: 109. HR: 81. RR: 16. O2 saturation: 98%. Temp: 97.9 F. Pain level now: 0/10. --20:04 08/14/20 Carito Barry R.N.Locked/Released at 08/14/2020 20:04 by Carito Barry R.N. Name Value Range Interpretation Code Description Data Cecy rce(s) Supporting Document(s) ID Date Data Source [id number] 08/14/2020 07:17:00 PM EDT [facility] 1 Clinical Report - Physicians/Mid Levels [facility] Emergency Department [address] [place] [address] Phone #: ext- [phone] 08/14/2020 19:09 Patient: CAMILO LAWSON Sex: M [...] alone. 2 Clinical Report - Physicians/Mid Levels [facility] Emergency Department [address] [place] [address] Phone #: ext- [phone] 08/14/2020 19:09 Patient: CAMILO LAWSON Sex: M [...] patient. 3 Clinical Report - Physicians/Mid Levels [facility] Emergency Department [address] [place] [address] Phone #: ext- [phone] 08/14/2020 19:09 Patient: CAMILO LAWSON Sex: M : 1990 Age: 29y Follow-up with: [facility], , , [address], , [place], [address] Follow up in one week. Call for an appointment.(Electronically signed by Pedro Rizo, 08/14/2020 20:15) Name Value Range Interpretation Code Description Data Cecy rce(s) Supporting Document(s) Procedure Social History Code Duration Value Status Description Data Source(s ) Smoking 07/20/2021 12:00:00 AM EDT Smoker, current status unkn own completed Smoker, current status unknown [facility] ([facility]) Smoking 07/05/2021 12:00:00 AM EDT Smoker, current status unkn own completed Smoker, current status unknown [facility] ([facility]) Smoking 03/29/2021 12:00:00 AM EDT Smoker, current status unkn own completed Smoker, current status unknown [facility] ([facility]) Smoking 02/17/2021 12:00:00 AM EDT Smoker, current status unkn own completed Smoker, current status unknown [facility] ([facility]) Smoking 01/01/2021 12:00:00 AM EST Smoker, current status unkn own completed Smoker, current status unknown [facility] ([facility]) Smoking 11/17/2020 12:00:00 AM EST Smoker, current status unkn own completed Smoker, current status unknown [facility] ([facility]) Smoking 11/02/2020 12:00:00 AM EST Smoker, current status unkn own completed Smoker, current status unknown [facility] ([facility]) Smoking 10/20/2020 12:00:00 AM EST Smoker, current status unkn own completed Smoker, current status unknown [facility] ([facility]) Smoking 09/24/2020 12:00:00 AM EST Smoker, current status unkn own completed Smoker, current status unknown [facility] ([facility]) Smoking 09/02/2020 12:00:00 AM EST Smoker, current status unkn own completed Smoker, current status unknown [facility] ([facility]) Smoking 08/19/2020 12:00:00 AM EDT Smoker, current status unkn own completed Smoker, current status unknown [facility] ([facility]) Smoking 08/18/2020 12:00:00 AM EDT Smoker, current status unkn own completed Smoker, current status unknown [facility] ([facility]) Smoking 07/29/2020 12:00:00 AM EDT Smoker, current status unkn own completed Smoker, current status unknown [facility] ([facility]) Smoking 07/22/2020 12:00:00 AM EDT Smoker, current status unkn own completed Smoker, current status unknown [facility] ([facility]) Smoking 07/10/2020 12:00:00 AM EDT Smoker, current status unkn own completed Smoker, current status unknown [facility] ([facility])
[2021-08-27 22:28] VITALS: BP 148/90
== END 2021-08-27 22:39 | disposition home or self-care (01) ==
LOC: M ED 21:07
DX: F43.0 Acute stress reaction (principal); F31.89 Other bipolar disorder; R56.9 Unspecified convulsions; F90.9 Attention-deficit hyperactivity disorder, unspecified type; F42.9 Obsessive-compulsive disorder, unspecified; Z79.899 Other long term (current) drug therapy

== ENCOUNTER 2021-08-30 17:57 | Emergency (ER) | payer MEDICAID ==
--- OUTSIDE RECORDS SUMMARY | 2021-08-30 18:42 | CCD ---
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 : 1990 Age: 30y [address] [place] [address] PHONE: [phone] FAX: [phone] Name .................. : BENJAMÍN Navarro Acct Number.................. : [id number] ROOM. ................. : TR-07 MR Number ................... : [id number] Stay type ............. : E/R Discharge Date......... ... : Admit Date ......... : 12/17/20 Admit Phys .................... : JUDY Cr Date of ....... : 1990 Family Phys ................... : NON STAFF Phone .................. : [phone] Age ................................ : 30 Film# .................. .:[id number] Sex ................................. : M Unsigned transcriptions are preliminary reports and do not represent a medical or legal document CHEST PORTABLE [id number] COMPLETE:12/17/20 20:14 5122 Reason(s): [facility] PORTABLE CHEST X-RAY: INDICATION: Altered mental [...] Negat 4 Clinical Report - Physicians/[facility] Emergency Department [address] [place] [address] Phone #: ext- [phone] 12/17/2020 17:48 Patient: TEDDY LAWSON Sex: M [...] Male GFR Interprentation 20-49 yrs >60 mL/min Riyviv78-16 yrs >56 mL/min Normal 60-69 yrs >49 mL/min Normal 70-79yrs>42 mL/min Normal 80 and above >35 mL/min Normal Female GFRInterpretation 20-39 yrs >60 mL/min Normal 40-49 yrs >58 mL/minNormal 50-59 yrs >51 mL/min Normal 60-69 yrs >45 mL/min Yidrge03-11 yrs >39 mL/min Normal 80 and above [...] 3.40) 5 Clinical Report - Physicians[facility] Emergency Department [address] [place] [address] Phone #: ext- [phone] 12/17/2020 17:48 Patient: TEDDY LAWSON Sex: M : 1990 Age: 30y #MONO 0.43 10/uL (0.00 - 0.90) #EOS 0.09 10/uL (0.00 - 0.70) #BASO 0.04 10/uL (0.00 - 0.20) #IG 0.04 10/uL ( 0.00 - 0.10) #NRBC 0.00 10/uL (0.00 - 0.00) MANUAL DIFF NOT INDICATED RBC MORPH NOT INDICATEDSalicylate Level: (LULU: 12/17/2020 19:20) ( [facility] 12/17/2020 20:10) Final results Test Result Flag Units (Reference) SALICYLATE <0.3 L mg/dL (2.0 - 20.0)ETOH: (LULU: 12/17/2020 19:20) ( [facility] 12/17/2020 20:10) Final results Test Result Flag Units (Reference) ALCOHOL 265.0 MG/DL ALCOHOL % 0.27 H % (0.00 - 0.01) *FOR MEDICAL PURPOSES ONLY*TSH: (LULU: 12/17/2020 19:20) ( [facility] 12/17/2020 20:23) Final results Test Result Flag Units (Reference) TSH 0.47 uIU/mL (0.47 - 5.01)Drug Screen-Urine: (LULU: 12/17/2020 19:25) ( [facility] [place]/17/[place] [...] PRESUMPTIVE POSITIVE CONFIRMATION WILL BE PERFORMED AT [facility].COVID-19 CAH: (LULU: 12/17/2020 19:20) ( Msg[facility]d 12/17/2020 19:49) Final results Test Result Flag Units (Reference) COVID-19 NOT DETECTED COVID-19 REENTER NOT DETECTED { PROCEDURAL CONTROL VALID KIT LOT # _[id number] 12/17/20.JOVANNA. KIT EXP DATE _[id number] 41/25/21.JOVANNA. NORMAL RANGE IS NOT DETECTEDNEGATIVE RESULTS SHOULD BE TREATEDAS PRESUMPTIVE AND, IF INCONSISTENT WITHCLINICAL SIGNS AND SYMPTOMS OR NECESSARY FOR PATIENT MANAGEMENT, SHOULDBETESTED WITH DIFFERENT AUTHORIZED OR CLEARED MOLECULAR TESTS. NEGATIVE RESULTSDO NOT PRECLUDE [id number] AND SHOULD NOT BE USED THE SOLE BASISFOR PATIENT MANAGEMENT DECISIONS. 6 Clinical Report - Physicians[facility] Emergency Department [address] [place] [address] Phone #: ext- [phone] 12/17/2020 17:48 Patient: TEDDY LAWSON Sex: M : 1990 Age: 30y.PROGRESS AND PROCEDURESCourse of Care: 18:47 12/17/20. Patient ambulatory without difficulty. No obvious injuries. He denies anyself injury. He currently has no complaints. 20:21 12/17/20. Patient is acting erratic. reporting feeling depressed. 06:36 12/18/20. Patient awake and requesting to go to [facility]. "Send me to [facility] or send me home" Patient's case discussed with ED physician at [facility] who is familiar with the patient. Dr. Sandra agrees to accept to patient to the ED. 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, associated with schizophrenia.(Electronically signed by Pedro Rizo 12/18/2020 06:44) Name Value Range Interpretation Code Description Data Cecy rce(s) Supporting Document(s) ID Date Data Source [id number] 12/18/2020 04:31:00 AM [facility] Name Value Range Interpretation Code Description Data Cecy rce(s) Supporting Document(s) Ethanol [Moles/volume] in Blood 100.0 MG/DL [facility] ALCOHOL % 0.10 % 0.00 - 0.01 H [facility] *FOR MEDICAL PURPOSES ONLY * ID Date Data Source [id number] 12/17/2020 08:23:00 PM [facility] Name Value Range Interpretation Code Description Data [facility] rce(s) Supporting Document(s) [facility] SOURCE R [facility] COLOR yellow NORMAL: Yellow [facility] CLARITY clear NORMAL: Clear [facility] Specific gravity of Urine by Test strip 1.010 1.001 - 1.030 [facility] pH 7 5 - 9 [facility] Glucose [Mass/volume] in Urine by Test strip NORM NORMAL: Negat [facility] Bilirubin.total [Presence] in Urine by Test strip NEG NORMAL: Negative [facility] Ketones [Presence] in Urine by Test strip NEG NORMAL: Negative [facility] Protein [Mass/volume] in Urine by Test strip NEG NORMAL: Negat [facility] Nitrite [Presence] in Urine by Test strip NEG NORMAL: Negative [facility] BLOOD NEG NORMAL: Negative [facility] Leukocyte esterase [Presence] in Urine by Test strip NEG [place] L: Negative [facility] Urobilinogen [Mass/volume] in Urine by Test strip NOR less alida n 1.0 mg/dL [facility] MICROSCOPIC Not Indicate [facility] ID Date Data Source [id number] 12/17/2020 07:58:00 PM EST [facility] Name Value Range Interpretation Code Description Data Cecy rce(s) Supporting Document(s) DRUG SCREEN URINE [facility] URINE DRUG SCREEN Amphetamine [Presence] in Urine by Screen method NEGATIVE NORMAL: N EGATIVE [facility] BARBITURATES NEGATIVE NORMAL: NEGATIVE [facility] BENZO NEGATIVE NORMAL: NEGATIVE [facility] COCAINE NEGATIVE NORMAL: NEGATIVE [facility] Tetrahydrocannabinol [Presence] in Urine NEGATIVE NORMAL: NEGATIVE [facility] OPIATES NEGATIVE NORMAL: NEGATIVE [facility] Phencyclidine [Presence] in Urine by Screen method NEGATIVE NOR MAL: NEGATIVE [facility] \\BLDo\\URINE DRUG SCR EEN INTERPRETATION\\BLDx\\ THE CUTOFFF LEVELS FOR DETECTION ARE FOLLOWS: AMPHETAMINES 1000 ng/ml BARBITUARATES 200 ng/ml BENZODIAZEPINES 100 ng/ml THC 50 ng/ml PHENCYCLIDINE 25 ng/ml OPIATES 300 ng/ml COCAINE 300 ng/ml ALL POSITIVES ARE CONSIDERED PRESUMPTIVE POSITIVE CONFIRMATION WILL BE PERFORMED AT PHYSICIAN REQUEST. ID Date Data Source [id number] 12/17/2020 07:20:00 PM EST [facility] Name Value Range Interpretation Code Description Data Cecy rce(s) Supporting Document(s) COVID19 Case rprt NOT DETECTED [facility] This lab was ordered by [facility] YANNI NIETO and [facility] ID Date Data Source [id number] 12/17/2020 08:23:00 PM EST [facility] Name Value Range Interpretation Code Description Data Cecy rce(s) Supporting Document(s) Thyrotropin [Units/volume] in Serum or Plasma by Detec tion limit <= 0.05 mIU/L 0.47 uIU/mL 0.47 - 5.01 [facility] ID Date Data Source [id number] 12/17/2020 08:10:00 PM EST [facility] Name Value Range Interpretation Code Description Data Cecy rce(s) Supporting Document(s) Ethanol [Moles/volume] in Blood 265.0 MG/DL [facility] ALCOHOL % 0.27 % 0.00 - 0.01 H [facility] *FOR MEDICAL PURPOSES ONLY * ID Date Data Source [id number] 12/17/2020 08:10:00 PM [facility] Name Value Range Interpretation Code Description Data Cecy rce(s) Supporting Document(s) BASIC METABOLIC PANEL [facility] BASIC METABOLIC PANEL Sodium [Moles/volume] in Serum or Plasma 142 mEq/L 134 - 153 [facility] Potassium [Moles/volume] in Serum or Plasma 3.3 mEq/L 3.6 - 5.0 L [facility] Chloride [Moles/volume] in Serum or Plasma 104 mEq/L 98 - 107 [facility] Carbon dioxide, total [Moles/volume] in Serum or Plasma 28 MEQ/L 22 - 30 [facility] Glucose [Mass/volume] in Serum or Plasma 91 MG/DL 70 - 99 [facility] BUN 5 MG/DL 7 - 21 L [facility] Creatinine [Mass/volume] in Serum or Plasma 0.6 MG/DL 0.7 - 1.5 L [facility] BUN/CREAT 8 8 - 27 [facility] Calcium [Mass/volume] in Serum or Plasma 9.0 MG/DL 8.4 - 10.2 [facility] Anion gap 3 in Serum or Plasma 10.0 mmol/L 8.0 - 16.0 [facility] AGE 30 yrs [facility] al AFR AMER GFR >60 mL/min [facility] NON-AA GFR >60 mL/min [facility] Male GFR Inter prentation [...] >32 mL/min Normal ID Date Data Source [id number] 12/17/2020 08:10:00 PM [facility] Name Value Range Interpretation Code Description Data Cecy rce(s) Supporting Document(s) SALICYLATE <0.3 mg/dL 2.0 - 20.0 L [facility] ID Date Data Source [id number] 12/17/2020 08:10:00 PM [facility] Name Value Range Interpretation Code Description Data Cecy rce(s) Supporting Document(s) Acetaminophen [Presence] in Urine <5.0 UG/ML 0.0 - 30.0 [facility] ID Date Data Source [id number] 12/17/2020 07:48:00 PM [facility] NOT DETECTEDNOT DETECTED{ PROC EDURAL CONTROL VALID KIT LOT # _[id number] 12/17/20.JOVANNA. KIT EXP DATE _[id number] 12/17/20.JOVANNA. NORMAL RANGE IS NOT DETECTEDNEGATIVE RESULTS [...] rce(s) Supporting Document(s) ID Date Data Source [id number] 12/17/2020 07:34:00 PM [facility] Name Value Range Interpretation Code Description Data Cecy rce(s) Supporting Document(s) CBC W/AUTOMATED DIFF [facility] COMPLETE BLOOD COUNT Leukocytes [#/volume] in Blood by Automated count 5.9 10^3/uL 4.2 - 1 1.0 [facility] Erythrocytes [#/volume] in Blood by Automated count 5.71 10^6/uL 4. 50 - 6.30 [facility] Hemoglobin [Mass/volume] in Blood 18.0 g/dL 14.0 - 16.0 H [facility] Hematocrit [Volume Fraction] of Blood by Automated count 50.9 % 4 1.0 - 51.0 [facility] Erythrocyte mean corpuscular volume [Entitic volume] by Auto mated count 89.1 fL 80.0 - 94.0 [facility] Erythrocyte mean corpuscular hemoglobin [Entitic mass] by Automated count 31.5 pg 27.0 - 34.0 [facility] Erythrocyte mean corpuscular hemoglobin concentration [Mass/volume] by Automated count 35.4 g/dL 31.0 - 36.0 [facility] Erythrocyte distribution width [Ratio] by Automated count 12.6 % 11.5 - 14.8 [facility] Platelets [#/volume] in Blood by Automated count 304 10^3/uL 150 - 45 0 [facility] Platelet mean volume [Entitic volume] in Blood by Automated count 9.2 fL 7.4 - 10.4 [facility] Neutrophils/100 leukocytes in Blood by Automated count 46.7 % 37. 0 - 80.0 [facility] Lymphocytes/100 leukocytes in Blood by Manual count 43.1 % 25.0 - 40.0 H [facility] Monocytes/100 leukocytes in Blood by Automated count 7.3 % 3.0 - 8.0 [facility] Eosinophils/100 leukocytes in Blood by Automated count 1.5 % 0.0 - 7.0 [facility] Basophils/100 leukocytes in Blood by Automated count 0.7 % 0.0 - 2.0 [facility] %IG 0.7 % 0.0 - 0.0 H [facility] al %NRBC 0.0 % 0.0 - 0.0 [facility] al Neutrophils [#/volume] in Blood by Automated count 2.75 10^3/uL 2.00 - 6.90 [facility] Lymphocytes [#/volume] in Blood by Automated count 2.54 10^3/uL 0.60 - 3.40 [facility] Monocytes [#/volume] in Blood by Automated count 0.43 10^3/uL 0.00 - 0.90 [facility] Eosinophils [#/volume] in Blood by Automated count 0.09 10^3/uL 0.00 - 0.70 [facility] Basophils [#/volume] in Blood by Automated count 0.04 10^3/uL 0.00 - 0.20 [facility] #IG 0.04 10^3/uL 0.00 - 0.10 [facility] #NRBC 0.00 10^3/uL 0.00 - 0.00 [facility] MANUAL DIFF NOT INDICATED [facility] RBC MORPH NOT INDICATED [facility] ID Date Data Source [id number] 11/19/2020 06:01:00 [place] [address] RESPIRATORY CARE REPORT ==== ---------NAME------- NUMBER SEX AGE ADMIT DISC. XRAY# F/C TYPEBENJAMÍN WADESHUA Ramon [id number] M 30 11/17/20 11/18/20 [id number] XBE E/R DATE OF : 1990 M/R# [id number] #: [id number] TR-03 LOCATION: EMERGENCY DEPT EKG 50137 COMP LETE:11/18/20 01:52 VMT [id number] PHYSICIAN: JUDY Cr Name Value Range Interpretation Code Description Data Cecy rce(s) Supporting Document(s) ID Date Data Source [id number] 11/17/2020 10:05:00 PM [facility] 1 OrderSheet [facility] Emergency Department [address] [place] [address] Phone #: ext- [phone] 11/17/2020 22:04 Patient: BENJAMÍNTEDDY Ramon Sex: M : 1990 Age: 30yWEIGHT:83.9 kg HEIGHT:70 inches BMI:26.5ALLERGIES: No Known Drug AllergyCHIEF COMPLAINT: depressed, anxious, agitated, angryDIAGNOSIS: Depressive disorder, Bipolar disorderLAB ORDERSOrder Description Priority Entered Acknowledged InitialedCBC w Diff STAT 22:11/17/2020 22:32 Judy Dorado Jack ; Shweta R.Vira.CMP STAT 22:11/17/2020 22:32 Judy Dorado Jack ; Shweta R.N.TSH STAT 22:11/17/2020 22:32 Judy Dorado Jack ; Shweta R.Vira.Acetaminophen STAT 22:11/17/2020 22:32 Lexi Dorado Jack ; Shweta Lawson.Vira.Salicylate Level STAT 22:11/17/2020 22:32 Judy Dorado Jack ; Shweta R.Vira.ETOH STAT 22:11/17/2020 22:32 Judy Dorado Jack ; Shweta R.Vira.Drug Screen-Urine STAT 22:11/17/2020 22:32 Judy Dorado Jack ; Shweta Lawson.Vira.COVID-19 CAH (Not STAT 23:55 11/17/2020 00:27 11/18/2020ymptomatic as Pedro Rizo ; Shweta Dorado R.N.Defined by CDC)(11/17/2020) (NotFirst Test) (NotHospitalized) (Not) (NotResident inCongregate CareSetting) (NotEmployed inHealthcare Setting)DIAGNOSTIC STUDY ORDERSOrder Desc ription Priority Entered Acknowledged InitialedMEDICATION/IV/DRIP/FLUID ORDERS 2 OrderSheet [facility] Emergency Department [address] [place] [address] Phone #: ext- [phone] 11/17/2020 22:04 Patient: TEDDY LAWSON Sex: M : 1990 Age: 30yOrder Description Priority Entered Acknowledged InitialedAcetaminophen PO 03:21 11/18/2020 03:27 Andreina Dorado mg (NOW x1) Pedro Rizo ; Shweta MayerGENERAL ORDERSOrder Description Priority Entered Acknowledged In itialedEKG 22:25 11/17/2020 22:32 Judy Dorado Jack ; Shweta Mayer[Electronically signed by Pedro Rizo (05:29 11/18/2020)][Electronically signed by Shweta Dorado R.N. (05:38 11/18/2020)][Electronically locked by Shweta Dorado R.N. (05:38 11/18/2020)] Name Value Range Interpretation Code Description Data Cecy rce(s) Supporting Document(s) ID Date Data Source [id number] 11/17/2020 10:05:00 PM [facility] 1 Medication Reconciliation Report [facility] Emergency Department [address] [place] [address] Phone #: ext- [phone] 11/17/2020 22:04 Patient: [...] rce(s) Supporting Document(s) ID Date Data Source [id number] 11/17/2020 10:05:00 PM [facility] 1 Medication Administration Record [facility] Emergency Department [address] [place] [address] Phone #: eoj- [phone] 11/17/2020 22:04 Patient: TEDDY LAWSON Sex: M : 1990 Age: 30yWeight: 83.9 kgHeight/Length: 70 inBMI: 26.5ALLERGIES: No Known Drug Allergy Date/Time Medication Administered Medication OrderedGiven ACETAMINOPHEN [PO] Acetaminophen PO 1000 mg03:27 11/18/2020 Dose: 1000 mg Tablets PO (NOW x1)Shweta Dorado R.N. Name Value Range Interpretation Code Description Data Cecy rce(s) Supporting Document(s) ID Date Data Source [id number] 11/17/2020 10:05:00 PM [facility] 1 General Instructions [facility] Emergency Department [address] [place] [address] Phone #: ext- [phone] 11/17/2020 22:04 Patient: TEDDY LAWSON Sex: M : 1990 Age: 30yAcute bipolar disorder with the current episode being severely manic without psychosis.Recurrent moderate major depressive disorder without psychosis.(Electronically signed by Pedro Rizo 11/18/2020 05:29) Name Value Range Interpretation Code Description Data Cecy rce(s) Supporting Document(s) ID Date Data Source [id number] 11/17/2020 10:05:00 PM [facility] 1 Clinical Report - Nurses [facility] Emergency Department [address] [place] [address] Phone #: ext- [phone] 11/17/2020 22:04 Patient: TEDDY LAWSON Sex: M : 1990 Age: 30yTRIAGEArrived by EMS. Historian: patient. ( Patient reports feeling anxious and being depressed today. Deniesany ETOH today, did some marijuana this morning. Patient has a history anxiety/depression. States that 3days ago had a psuedoseizure and was evaluated at [facility]. Denies any SI.).Triage time: 22:03 11/17/2020. Acuity: LEVEL 4.Chief Complaint: ANXIETY.Alert. No acute distress.Onset: today. He has had anxiety and describes feelings of depression. ( Patient keeps repeating thathe hates his family, "I could careless if they of covid", "I wish I never met them".).Treatment SUPERVISOR AUDIT CLERKS:None. --22:15 11/17/20 Shweta Dorado R.N.22:08 11/17/20. BP: [...] "Do you 2 Clinical Report - Nurses [facility] Emergency Department [address] [place] [address] Phone #: ext- [phone] 11/17/2020 22:04 Patient: [...] this time to come back in the [place] [facility] and wait for transfer to another facility. Patient is c ooperative at this time.). --01:13 11/18/20 Shweta Dorado R.N. ( Patient is sleeping at this time.). --01:51 11/18/20 Shweta Dorado R.N. Patient waiting for disposition. ( Patient updated on plan of care, information has been faxed to [facility] for review. Patient is cooperative [...] will make 3 Clinical Report - Nurses [facility] Emergency Department [address] [place] [address] Phone #: ext- [phone] 11/17/2020 22:04 Patient: TEDDY LAWSON Sex: M : 1990 Age: 30y MD aware.). Call light placed in reach. --03:12 11/18/20 Jordin Hitchcock 03:27 11/18/2020 Acetaminophen PO Tablets 1000 mg given. Allergies verified. Information reviewed with patient. --03:27 11/18/20 Shweta Dorado R.N. ( Attempted to call [facility] regarding transfer.). --04:45 11/18/20 Shweta Dorado R.N.DISPOSITION / DISCHARGE Departure time: 05:37 11/18/2020. Condition at departure: unchanged. Transferred to [facility]. Visit overview, summary of care [...] rce(s) Supporting Document(s) ID Date Data Source [id number] 11/17/2020 10:05:00 PM [facility] 1 Clinical Report - Physicians/Mid Levels [facility] Emergency Department [address] [place] [address] Phone #: ext- [phone] 11/17/2020 22:04 Patient: TEDDY LAWSON Sex: M [...] Surgery. 2 Clinical Report - Physicians/[facility] Emergency Department [address] [place] [address] Phone #: ext- [phone] 11/17/2020 22:04 Patient: [...] # _[id number] 11/18/20.0039.AB . KIT EXP DATE _[id number] 11/18/20.0039.AB . NORMAL RANGE IS NOT DETECTEDNEGATIVE [...] DIFF 3 Clinical Report - Physicians[facility] Emergency Department [address] [place] [address] Phone #: ext- [phone] 11/17/2020 22:04 Patient: [...] Male GFR Interprentation 20-49 yrs >60 mL/min Zkljws27-32 yrs >56 mL/min Normal 60-69 yrs >49 mL/min Normal 70-79yrs>42 mL/min Normal 80 and above >35 mL/min Normal Female GFRInterpretation 20-39 yrs >60 mL/min Normal 40-49 yrs >58 mL/minNormal 50-59 yrs >51 mL/min Normal 60-69 yrs >45 mL/min Oxnqrz73-92 yrs >39 mL/min Normal 80 and above >32 mL/min Normal 4 Clinical Report - [facility] Emergency Department [address] [place] [address] Phone #: ext- [phone] 11/17/2020 22:04 Patient: [...] OCD. He is requesting to speak with healthcare social worker/psychiatrist. 00:26 11/18/20. Patient informed that he is waiting for remainder of results and then his case will be brought to [facility]'s attention for psych evaluation. 00:49 11/18/20. Patient agreed to return back to ED. 30 mins ago he decided to leave the ED because he was tired of waiting. Patient is medically cleared. 5 Clinical Report - [facility] Emergency Department [address] [place] [address] Phone #: ext- [phone] 11/17/2020 22:04 Patient: TEDDY LAWSON Sex: M : 1990 Age: 30y 05:26 11/18/20. Patient accepted to [facility]. Dr. Villagomez is the accepting physician. Disposition: Benefits, risks and alternatives to transfer explained to patient. Transferred to [facility]. Summary of care (CCDA) pro vided to transfer facility.CLINICAL IMPRESSION Acute bipolar disorder with the current episode being severely manic without psychosis. Recurrent moderate major depressive disorder without psychosis.(Electronically signed by Pedro Rizo 11/18/2020 05:29) Name Value Range Interpretation Code Description Data Cecy rce(s) Supporting Document(s) ID Date Data Source [id number] 11/17/2020 10:05:00 PM [facility] Addenda for TEDDY LAWSON VisitID: [id number] Date: 2:39Faxed chart to [facility] for psych review at 0130(Electronically signed by Justin Maldonado - 11/18/2020 2:39) Name Value Range Interpretation Code Description Data Cecy rce(s) Supporting Document(s) ID Date Data Source [id number] 11/18/2020 12:39:00 AM [facility] NOT DETECTEDNOT DETECTED{ PROC EDURAL CONTROL VALID KIT LOT # _[id number] 11/18/20.0039.AB . KIT EXP DATE _40-25-28 11/18/20.003.AB . NORMAL RANGE IS NOT DETECTEDNEGATIVE RESULTS [...] rce(s) Supporting Document(s) ID Date Data Source [id number] 11/17/2020 11:46:00 PM [facility] Name Value Range Interpretation Code Description Data Cecy rce(s) Supporting Document(s) DRUG SCREEN URINE [facility] URINE DRUG SCREEN Amphetamine [Presence] in Urine by Screen method NEGATIVE NORMAL: N EGATIVE [facility] BARBITURATES NEGATIVE NORMAL: NEGATIVE [facility] BENZO NEGATIVE NORMAL: NEGATIVE [facility] COCAINE NEGATIVE NORMAL: NEGATIVE [facility] Tetrahydrocannabinol [Presence] in Urine NEGATIVE NORMAL: NEGATIVE [facility] OPIATES NEGATIVE NORMAL: NEGATIVE [facility] Phencyclidine [Presence] in Urine by Screen method NEGATIVE NOR MAL: NEGATIVE [facility] \\BLDo\\URINE DRUG SCR EEN INTERPRETATION\\BLDx\\ THE CUTOFFF LEVELS FOR DETECTION ARE FOLLOWS: AMPHETAMINES 1000 ng/ml BARBITUARATES 200 ng/ml BENZODIAZEPINES 100 ng/ml THC 50 ng/ml PHENCYCLIDINE 25 ng/ml OPIATES 300 ng/ml COCAINE 300 ng/ml ALL POSITIVES ARE CONSIDERED PRESUMPTIVE POSITIVE CONFIRMATION WILL BE PERFORMED AT PHYSICIAN REQUEST. ID Date Data Source [id number] 11/17/2020 11:31:00 PM [facility] Name Value Range Interpretation Code Description Data Cecy rce(s) Supporting Document(s) SALICYLATE <0.3 mg/dL 2.0 - 20.0 L [facility] ID Date Data Source [id number] 11/17/2020 11:31:00 PM [facility] Name Value Range Interpretation Code Description Data Cecy rce(s) Supporting Document(s) COMPREHENSIVE METABOLIC PANEL [facility] COMPREHENSIVE METABOLIC PANEL Sodium [Moles/volume] in Serum or Plasma 141 mEq/L 134 - 153 [facility] Potassium [Moles/volume] in Serum or Plasma 3.8 mEq/L 3.6 - 5.0 [facility] Chloride [Moles/volume] in Serum or Plasma 104 mEq/L 98 - 107 [facility] Carbon dioxide, total [Moles/volume] in Serum or Plasma 23 MEQ/L 22 - 30 [facility] Glucose [Mass/volume] in Serum or Plasma 116 MG/DL 70 - 99 H [facility] BUN 8 MG/DL 7 - 21 [facility] Creatinine [Mass/volume] in Serum or Plasma 0.6 MG/DL 0.7 - 1.5 L [facility] BUN/CREAT 13 8 - 27 [facility] Protein [Mass/volume] in Serum or Plasma 6.1 G/DL 6.3 - 8.2 L [facility] Albumin [Mass/volume] in Serum or Plasma 4.8 G/DL 3.9 - 5.0 [facility] Globulin [Mass/volume] in Serum by calculation 1.3 GM/DL 2.4 - 3.2 L [facility] A/G RATIO 3.7 0.8 - 2.[address] [facility] Calcium [Mass/volume] in Serum or Plasma 9.0 MG/DL 8.4 - 10.2 [facility] Bilirubin.total [Mass/volume] in Serum or Plasma <0.7 MG/DL 0.2 - 1.3 [facility] Alkaline phosphatase [Enzymatic activity/volume] in Serum or Plasma 95 U/L 38 - 126 [facility] Aspartate aminotransferase [Enzymatic activity/volume] in Serum or Plasma 27 U/L 5 - 40 [facility] Alanine aminotransferase [Enzymatic activity/volume] in Seru m or Plasma 24 U/L 7 - 56 [facility] Anion gap 3 in Serum or Plasma 14.0 mmol/L 8.0 - 16.0 [facility] AGE [address] [facility] NON-AA GFR >60 mL/min [facility] ital AFR AMER GFR >60 mL/min [facility] Male GFR In [...] >32 mL/min Normal ID Date Data Source [id number] 11/17/2020 11:31:00 PM [facility] Name Value Range Interpretation Code Description Data Cecy rce(s) Supporting Document(s) Ethanol [Moles/volume] in Blood <10.0 MG/DL [facility] ALCOHOL % 0.01 % 0.00 - 0.01 [facility] ital *FOR MEDICAL PURPOSES ONLY * ID Date Data Source [id number] 11/17/2020 11:31:00 PM [facility] Name Value Range Interpretation Code Description Data Cecy rce(s) Supporting Document(s) Thyrotropin [Units/volume] in Serum or Plasma by Detec tion limit <= 0.05 mIU/L 1.06 uIU/mL 0.47 - 5.01 [facility] ID Date Data Source [id number] 11/17/2020 10:56:00 PM [facility] Name Value Range Interpretation Code Description Data Cecy rce(s) Supporting Document(s) CBC W/AUTOMATED DIFF [facility] COMPLETE BLOOD COUNT Leukocytes [#/volume] in Blood by Automated count 8.3 10^3/uL 4.2 - 1 1.0 [facility] Erythrocytes [#/volume] in Blood by Automated count 5.28 10^6/uL 4. 50 - 6.30 [facility] Hemoglobin [Mass/volume] in Blood 16.1 g/dL 14.0 - 16.0 H [facility] Hematocrit [Volume Fraction] of Blood by Automated count 46.5 % 4 1.0 - 51.0 [facility] Erythrocyte mean corpuscular volume [Entitic volume] by Auto mated count 88.1 fL 80.0 - 94.0 [facility] Erythrocyte mean corpuscular hemoglobin [Entitic mass] by Automated count 30.5 pg 27.0 - 34.0 [facility] Erythrocyte mean corpuscular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 [address] Phone #: ext- [phone] 08/29/2020 00:12 Patient: TEDDY LAWSON Sex: M [...] Finalresults Exam CT ST NECK W/O CONTRAST [address] [address] ---------NAME--------- NUMBER SEX AGE ADMIT DISC. XRAY# F/C TYPE BENJAMÍN Navarro [id number] M 29 08/29/20 [id number] NA E/R DATE OF : 1990 M/R# [id number] #: [id number] TR-03 LOCATION: EMERGENCY DEPT TRANSCRIBED: 08/29/20 2:[address] NECK W/O CONTRAST [id number] COMPLETED:08/29/20 2:18 RLB [id number] Reason(s): Trauma/Injury PHYSICIAN: ANTHONY BR R A [...] swelling or gas. 5 Clinical Report - Physicians/[facility] Emergency Department [address] [place] [address] Phone #: ext- [phone] 08/29/2020 00:12 Patient: [...] Final results Exam CT THORAX W/O CONTRAST [place] [address] [facility] [place] [address] ---------NAME--------- NUMBER SEX AGE ADMIT DISC. XRAY# F/C TYPE MANTLE TEDDY Navarro [id number] M 29 08/29/20 [id number] NA E/R DATE OF : 1990 M/R# [id number] #: [id number] TR-03 LOCATION: EMERGENCY DEPT TRANSCRIBED: 08/29/20 2:[address] THORAX W/O CONTRAST 16672 COMPLETED:08/29/20 2:18 RLB [id number] Reason(s): Trauma/Injury PHYSICIAN: ANTHONY GODINEZ R A [...] provided. 6 Clinical Report - Physicians/[facility] [address] [place] [address] Phone #: ext- [phone] 08/29/2020 00:12 Patient: [...] of imperative reconstructive techniques. Electronically Signed By: Brdiger Regalaod M.D. , Radiologist Date/Time: 08/29/20 02:56Urinalysis: (LULU: [...] NEGAT 7 Clinical Report - Physicians/[facility] [address] [place] [address] Phone #: ext- [phone] 08/29/2020 00:12 Patient: [...] PRESUMPTIVE POSITIVE CONFIRMATION WILL BE PERFORMED AT [facility].CMP: (LULU: 08/29/2020 01:35) ( MsgRcvd 08/29/2020 02:03) [...] Male GFR Interprentation 20-49 yrs >60 mL/min Gzrlzl47-01 yrs >56 mL/min Normal 60-69 yrs >49 mL/min Normal 70-79yrs>42 mL/min Normal 80 and above >35 mL/min Normal Female GFRInterpretation 20-39 yrs >60 mL/min Normal 40-49 yrs >58 mL/minNormal 50-59 yrs >51 mL/min Normal 60-69 yrs >45 mL/min Cqbzck74-25 yrs >39 mL/min Normal 80 and above [...] 8 C linical Report - Physicians/[facility] Emergency Department [address] [place] [address] Phone #: ext- [phone] 08/29/2020 00:12 Patient: TEDDY LAWSON Sex: M [...] tendencies.). 9 Clinical Report - Physicians/[facility] Emergency Department [address] [place] [address] Phone #: ext- [phone] 08/29/2020 00:12 Patient: [...] discharge instructions verbalized by patient.(Electronically signed by Prduencio Cruz, Physician 08/30/2020 08:42) Name Value Range Interpretation Code Description Data Cecy rce(s) Supporting Document(s) ID Date Data Source [id number] 08/29/2020 02:56:00 AM EST [facility] [address] [place] [address] ---------NAME--------- NUMBER SEX AGE ADMIT DISC. XRAY# F/C TYPE MANTLE TEDDY Navarro [id number] M 29 08/29/20 [id number] NA E/R DATE OF : 1990 M/R# [id number] #: [id number] TR-03 LOCATION: EMERGENCY DEPT TRANSCRIBED: 08/29/20 2:[address] THORAX W/O CONTRAST 31668 COMPLETED:08/29/20 2:18 RLB 50139 Reason(s): Trauma/Injury PHYSICIAN: ANTHONY BR R A [...] rce(s) Supporting Document(s) ID Date Data Source [id number] 08/29/2020 02:39:[address] [address] ---------NAME--------- NUMBER SEX AGE ADMIT DISC. XRAY# F/C TYPE MANTLE TEDDY D [id number] M 29 08/29/20 [id number] NA E/R DATE OF : 1990 M/R# [id number] #: [id number] TR-03 LOCATION: EMERGENCY DEPT TRANSCRIBED: 08/29/20 2:[address] ABD //T// PELV W/O ORAL W/[place] [address] COMPLETED:08/29/20 2:18 RLB [id number] Reason(s): Trauma/Injury PHYSICIAN: ANTHONY BR======== R A [...] rce(s) Supporting Document(s) ID Date Data Source [id number] 08/29/2020 02:37:00 AM [address] [place] [address] ---------NAME--------- NUMBER SEX AGE ADMIT DISC. XRAY# F/C TYPE MANTLE TEDDY D [id number] M 29 08/29/20 [id number] NA E/R DATE OF : 1990 M/R# [id number] PH#: [phone] TR-03 LOCATION: EMERGENCY DEPT TRANSCRIBED: 08/29/20 2:[address] NECK W/O CONTRAST [id number] COMPLETED:08/29/20 2:18 RLB 11565 Reason(s): Trauma/Injury PHYSICIAN: ANTHONY BR R A [...] rce(s) Supporting Document(s) ID Date Data Source [id number] 08/29/2020 02:02:00 AM [facility] Name Value Range Interpretation Code Description Data Cecy rce(s) Supporting Document(s) Lipase [Enzymatic activity/volume] in Serum or Plasma 37 U/L 13 - 60 [facility] ID Date Data Source [id number] 08/29/2020 02:02:00 AM [facility] Name Value Range Interpretation Code Description Data Cecy rce(s) Supporting Document(s) COMPREHENSIVE METABOLIC PANEL [facility] COMPREHENSIVE METABOLIC PANEL Sodium [Moles/volume] in Serum or Plasma 136 mEq/L 134 - 153 [facility] Potassium [Moles/volume] in Serum or Plasma 3.8 mEq/L 3.6 - 5.0 [facility] Chloride [Moles/volume] in Serum or Plasma 103 mEq/L 98 - 107 [facility] Carbon dioxide, total [Moles/volume] in Serum or Plasma 26 MEQ/L 22 - 30 [facility] Glucose [Mass/volume] in Serum or Plasma 106 MG/DL 65 - 110 [facility] BUN 14 MG/DL 7 - 21 [facility] Creatinine [Mass/volume] in Serum or Plasma 0.6 MG/DL 0.7 - 1.5 L [facility] BUN/CREAT 23 8 - 27 [facility] al Protein [Mass/volume] in Serum or Plasma 6.6 G/DL 6.3 - 8.2 [facility] Albumin [Mass/volume] in Serum or Plasma 4.3 G/DL 3.9 - 5.0 [facility] Globulin [Mass/volume] in Serum by calculation 2.3 GM/DL 2.4 - 3.2 L [facility] A/G RATIO 1.9 0.8 - 2.0 [facility] Calcium [Mass/volume] in Serum or Plasma 9.3 MG/DL 8.4 - 10.2 [facility] Bilirubin.total [Mass/volume] in Serum or Plasma 0.8 MG/DL 0.2 - 1.3 [facility] Alkaline phosphatase [Enzymatic activity/volume] in Serum or Plasma 108 U/L 38 - 126 [facility] Aspartate aminotransferase [Enzymatic activity/volume] in Serum or Plasma 17 U/L 5 - 40 [facility] Alanine aminotransferase [Enzymatic activity/volume] in Seru m or Plasma 18 U/L 7 - 56 [facility] Anion gap 3 in Serum or Plasma 7.0 mmol/L 8.0 - 16.0 L [facility] AGE 29 yrs [facility] al NON-AA GFR >60 mL/min [facility] ital AFR AMER GFR >60 mL/min [facility] spital Male GFR In [...] >32 mL/min Normal ID Date Data Source [id number] 08/29/2020 01:45:00 AM EST [facility] Name Value Range Interpretation Code Description Data Cecy rce(s) Supporting Document(s) Lactate [Moles/volume] in Serum or Plasma 1.0 MMOL/L 0.2 - 2.2 [facility] ID Date Data Source [id number] 08/29/2020 01:42:00 AM EST [facility] Name Value Range Interpretation Code Description Data Cecy rce(s) Supporting Document(s) CBC W/AUTOMATED DIFF [facility] COMPLETE BLOOD COUNT Leukocytes [#/volume] in Blood by Automated count 8.4 10^3/uL 4.2 - 1 1.0 [facility] Erythrocytes [#/volume] in Blood by Automated count 4.97 10^6/uL 4. 50 - 6.30 [facility] Hemoglobin [Mass/volume] in Blood 15.1 g/dL 14.0 - 16.0 [facility] Hematocrit [Volume Fraction] of Blood by Automated count 43.8 % 4 1.0 - 51.0 [facility] Erythrocyte mean corpuscular volume [Entitic volume] by Auto mated count 88.1 fL 80.0 - 94.0 [facility] Erythrocyte mean corpuscular hemoglobin [Entitic mass] by Automated count 30.4 pg 27.0 - 34.0 [facility] Erythrocyte mean corpuscular hemoglobin concentration [Mass/volume] by Automated count 34.5 g/dL 31.0 - 36.0 [facility] Erythrocyte distribution width [Ratio] by Automated count 12.6 % 11.5 - 14.8 [facility] Platelets [#/volume] in Blood by Automated count 258 10^3/uL 150 - 45 0 [facility] Platelet mean volume [Entitic volume] in Blood by Automated count 9.9 fL 7.4 - 10.4 [facility] Neutrophils/100 leukocytes in Blood by Automated count 59.4 % 37. 0 - 80.0 [facility] Lymphocytes/100 leukocytes in Blood by Manual count 28.6 % 25.0 - 40.0 [facility] Monocytes/100 leukocytes in Blood by Automated count 8.9 % 3.0 - 8.0 H [facility] Eosinophils/100 leukocytes in Blood by Automated count 2.1 % 0.0 - 7.0 [facility] Basophils/100 leukocytes in Blood by Automated count 0.6 % 0.0 - 2.0 [facility] %IG 0.4 % 0.0 - 0.0 H [facility] al %NRBC 0.0 % 0.0 - 0.0 [facility] al Neutrophils [#/volume] in Blood by Automated count 4.99 10^3/uL 2.00 - 6.90 [facility] Lymphocytes [#/volume] in Blood by Automated count 2.40 10^3/uL 0.60 - 3.40 [facility] Monocytes [#/volume] in Blood by Automated count 0.75 10^3/uL 0.00 - 0.90 [facility] Eosinophils [#/volume] in Blood by Automated count 0.18 10^3/uL 0.00 - 0.70 [facility] Basophils [#/volume] in Blood by Automated count 0.05 10^3/uL 0.00 - 0.20 [facility] #IG 0.03 10^3/uL 0.00 - 0.10 [facility] #NRBC 0.00 10^3/uL 0.00 - 0.00 [facility] ospital MANUAL DIFF NOT INDICATED [facility] RBC MORPH NOT INDICATED [facility] spital ID Date Data Source [id number] 08/29/2020 01:40:00 AM EST [facility] Name Value Range Interpretation Code Description Data Cecy rce(s) Supporting Document(s) DRUG SCREEN URINE [facility] URINE DRUG SCREEN Amphetamine [Presence] in Urine by Screen method NEGATIVE NORMAL: N EGATIVE [facility] BARBITURATES NEGATIVE NORMAL: NEGATIVE [facility] BENZO NEGATIVE NORMAL: NEGATIVE [facility] COCAINE NEGATIVE NORMAL: NEGATIVE [facility] Tetrahydrocannabinol [Presence] in Urine NEGATIVE NORMAL: NEGATIVE [facility] OPIATES NEGATIVE NORMAL: NEGATIVE [facility] Phencyclidine [Presence] in Urine by Screen method NEGATIVE NOR MAL: NEGATIVE [facility] \\BLDo\\URINE DRUG SCR EEN INTERPRETATION\\BLDx\\ THE CUTOFFF LEVELS FOR DETECTION ARE FOLLOWS: AMPHETAMINES 1000 ng/ml BARBITUARATES 200 ng/ml BENZODIAZEPINES 100 ng/ml THC 50 ng/ml PHENCYCLIDINE 25 ng/ml OPIATES 300 ng/ml COCAINE 300 ng/ml ALL POSITIVES ARE CONSIDERED PRESUMPTIVE POSITIVE CONFIRMATION WILL BE PERFORMED AT PHYSICIAN REQUEST. ID Date Data Source [id number] 08/29/2020 01:25:00 AM EST [facility] Name Value Range Interpretation Code Description Data Cecy rce(s) Supporting Document(s) [facility] URINALYSIS SOURCE R [facility] al COLOR yellow NORMAL: Yellow [facility] ospital CLARITY clear NORMAL: Clear [facility] spital Specific gravity of Urine by Test strip 1.010 1.001 - 1.030 [facility] pH 6.5 5 - 9 [facility] al Glucose [Mass/volume] in Urine by Test strip NORM NORMAL: Negat [facility] Bilirubin.total [Presence] in Urine by Test strip NEG NORMAL: Negative [facility] Ketones [Presence] in Urine by Test strip NEG NORMAL: Negative [facility] Protein [Mass/volume] in Urine by Test strip NEG NORMAL: Negat [facility] Nitrite [Presence] in Urine by Test strip NEG NORMAL: Negative [facility] BLOOD NEG NORMAL: Negative [facility] Leukocyte esterase [Presence] in Urine by Test strip NEG [place] L: Negative [facility] Urobilinogen [Mass/volume] in Urine by Test strip NOR less alida n 1.0 mg/dL [facility] MICROSCOPIC Not Indicate [facility]spital ID Date Data Source [id number] 08/19/2020 01:52:52 PM EDT [facility] Vital SignsBlood Pressure: 138/82 Patient History Medical History:Brain TumorSeizure DisorderDepressionHx of kidney stonesBipolarSurgical History:Partial lobectomyFamily History:No known family historySocial/Personal History: Smoking Status: current some day smokerDo you vape? NoCurrent Problems: Normal examination (ICD-V65.5) (AQM10-S03.1)Dental caries/Impaction of teeth (ICD-521.00) (FDS20-Q92.9)Contact dermatitis and other eczema, unspecified cause (ICD-692.9) (KMO20-Y86.9)Depression (ICD-311) (NOZ22-W85.9)Seizure Disorder (ICD-780.39) (MXH72-A19.9)Brain Tumor (ICD-191.9) (IJP30-J06.9)Problem list reviewed during this update.Current Medications: SEROQUEL [...] (D0274) Bitewings, 4 radiographic images (Performed by Behzad HOWARDKimberley) B - (D1110) Prophylaxis, adult (Performed by [...] 14 on Tooth Surface O (Performed by Behzad HOWARDKimberley) Existing:Type - CDT Code - Description[E] Decay [...] was ended.Referral for extraction of #12 and 16.N/V-Kimberley Marquez RDH by shailesh (08/19/2020 2:39 PM): ; yany (Aug 20 2020 7:29AM): [facility]). CC: none. Reviewed Xrays. Exam: caries detected. [...] Known Allergies (updated 08/19/2020) Orders:Oral Surgery Referral [[id number]] Clinical Visit Summary Declined Name Value Range Interpretation Code Description Data Cecy rce(s) Supporting Document(s) ID Date Data Source [id number] 08/14/2020 07:17:00 PM EDT [facility] 1 Medication Reconciliation Report [facility] Emergency Department [address] [place] [address] Phone #: ext- [phone] 08/14/2020 19:09 Patient: [...] Value Range Interpretation Code Description Data [facility](s) Supporting Document(s) ID Date Data Source [id number] 08/14/2020 07:17:00 PM EDT [place] [address] Medication Administration Record [facility] Emergency Department [address] [place] [address] Phone #: ext- [phone] 19:09 Patient: TEDDY LAWSON Sex: M : 1990 Age: 29yWeight: 81.6 kgHeight/Length: 72 inBMI: 24.4ALLERGIES: No Known Drug AllergyDate/Time Medication Administered Medication Ordered Name Value Range Interpretation Code Description Data Cecy rce(s) Supporting Document(s) ID Date Data Source [id number] 08/14/2020 07:17:00 PM EDT [facility] 1 General Instructions [facility] Emergency Department [address] [place] [address] Phone #: ext- [phone] 08/14/2020 19:09 Patient: TEDDY LAWSON Sex: Chelo : 1990 Age: 29y Anxiety reaction. No hyperventilation.INSTRUCTIONS Warnings: GENERAL WARNINGS: Return or contact your physician immediately if your condition worsens or changes unexpectedly, if not improving as expected, or if other problems arise. Understanding of the discharge instructions verbalized by patient. Follow-up with: [facility], , , [address] [place], [address] Follow up in one week. Call for [...] may experience: Dry mouth 2 General Instructions [facility] Emergency Department [address] [place] [address] Phone #: ext- [phone] 08/14/2020 19:09 Patient: [...] Also, there are certain 3 General Instructions [facility] Emergency Department [address] [place] [address] Phone #: ext- [phone] 08/14/2020 19:09 Patient: [...] andtemporary medicine to help you manage stress.Call [phone] if any of these happen: Trouble breathing [...] and mild pain reliever 4 General Instructions [facility] Emergency Department [address] [place] [address] Phone #: ext- [phone] 08/14/2020 19:09 Patient: TEDDY LAWSON Sex: M : 1990 Age: 29y [phone] [place] [address]. All rights reserved. This information is not intended as asubstitute for professional medical care. Always follow your healthcare professional's instructions. You have been given the following additional information: Anxiety Reaction(Electronically signed by Pedro Rizo, 08/14/2020 20:15) Name Value Range Interpretation Code Description Data Cecy rce(s) Supporting Document(s) ID Date Data Source [id number] 08/14/2020 07:17:00 PM EDT [facility] 1 Clinical Report - Nurses [facility] Emergency Department [address] [place] [address] Phone #: ext- [phone] 08/14/2020 19:09 Patient: TEDDY LAWSON Sex: M : 1990 Age: 29yTRIAGEHistorian: patient.Acuity: LEVEL 4.Chief Complaint: (wants to be checked out denies any symptoms).No acute distress.No fever, weakness, cough, difficulty breathing or skin rash. Denies muscle aches. --:08/14/20Alfonso Buck R.N.08/14/20. BP: 136/98. MAP: 110. HR: 80. RR: 16. O2 saturation: 98%. Temp: 97.8 F. Pain levelnow: 0/10. --19:08/14/20 Alfonso Buck R.N.Weight: 81.6 kg stated. Height/Length: 72 inches Per Patient. BMI: 24.4. --08/14/20 Alfonso Buck R.N.MedicationsSEROquel Oral (Tablet 300 mg) [...] no barriers. 2 [facility] [address] [place] [address] Phone #: ext- [phone] 08/14/2020 19:09 [id number] Sex[facility] M : 1990 Age: 29y FALL RISK ASSESSMENT: Fall risk assessment completed. No risk factors identified. SKIN INTEGRITY ASSESSMENT: Skin integrity risk assessment completed. No skin integrity risk identified. --19:30 08/14/20 Alfonso Buck R.N. FAMILY HX: No significant family medical history. --19:53 08/14/20 Pedro Rizo.PHYSICAL [id number] 08/14/20. Ambulatory to room.GENERAL / NEURO / [...] Patient verbalized understanding. Written instructions provided in Fijian. The patient was discharged home and unaccompanied at time of discharge. He left ambulatory and via taxi. 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 --20:04 08/14/20 Carito Barry R.N. 20:03 08/14/20. BP: 141/93. MAP: 109. HR: 81. RR: 16. O2 saturation: 98%. Temp: 97.9 F. Pain level now: 0/10. --20:04 08/14/20 Carito Barry R.N.Locked/Released at 08/14/2020 20:04 by Carito Barry R.N. Name Value Range Interpretation Code Description Data Cecy rce(s) Supporting Document(s) ID Date Data Source [id number] 08/14/2020 07:17:00 PM EDT [facility] [address] [place] [address] Phone #: ext- [phone] 08/14/2020 19:09 Patient: [...] alone. 2 Clinical Report [facility] [address] [place] [address] Phone #: ext- [phone] 08/14/2020 19:09 Patient: [...] patient. 3 Clinical Report - [facility] Department [address] [place] [address] Phone #: ext- [phone] 08/14/2020 19:09 Patient: TEDDY LAWSON Sex: M : 1990 Age: 29y Follow-up with: [facility], , , [address] [place] [address], [id number] Follow up in one week. Call for an appointment.(Electronically signed by Pedro Rizo, 08/14/2020 20:15) Name Value Range Interpretation Code Description Data Cecy rce(s) Supporting Document(s) Procedure Social History Code Duration Value Status Description Data Source(s ) Smoking 08/30/2021 12:00:00 AM EST Smoker, current status unkn own completed Smoker, current status unknown [facility] Smoking 07/20/2021 12:00:00 AM EDT Smoker, current status unkn own completed Smoker, current status unknown [facility] ([facility]) Smoking 07/05/2021 12:00:00 AM EDT Smoker, current status unkn own completed Smoker, current status unknown [facility] ([facility]) Smoking 03/29/2021 12:00:00 AM EDT Smoker, current status unkn own completed Smoker, current status unknown [facility] ([facility]) Smoking 02/17/2021 12:00:00 AM EDT Smoker, current status unkn own completed Smoker, current status unknown [facility] ([facility]) Smoking 01/01/2021 12:00:00 AM EST Smoker, current status unkn own completed Smoker, current status unknown [facility] ([facility]) Smoking 11/17/2020 12:00:00 AM EST Smoker, current status unkn own completed Smoker, current status unknown [facility] ([facility]) Smoking 11/02/2020 12:00:00 AM EST Smoker, current status unkn own completed Smoker, current status unknown [facility] ([facility]) Smoking 10/20/2020 12:00:00 AM EST Smoker, current status unkn own completed Smoker, current status unknown [facility] ([facility]) Smoking 09/24/2020 12:00:00 AM EST Smoker, current status unkn own completed Smoker, current status unknown [facility] ([facility]) Smoking 09/02/2020 12:00:00 AM EST Smoker, current status unkn own completed Smoker, current status unknown [facility] ([facility]) Smoking 08/19/2020 12:00:00 AM EDT Smoker, current status unkn own completed Smoker, current status unknown [facility] ([facility]) Smoking 08/18/2020 12:00:00 AM EDT Smoker, current status unkn own completed Smoker, current status unknown [facility] ([facility]) Smoking 07/29/2020 12:00:00 AM EDT Smoker, current status unkn own completed Smoker, current status unknown [facility] ([facility]) Smoking 07/22/2020 12:00:00 AM EDT Smoker, current status unkn own completed Smoker, current status unknown [facility] ([facility]) Smoking 07/10/2020 12:00:00 AM EDT Smoker, current status unkn own completed Smoker, current status unknown [facility])
[2021-08-30 20:29] VITALS: BP 141/98
== END 2021-08-30 20:32 | disposition home or self-care (01) ==
LOC: M ED 17:57
DX: F43.0 Acute stress reaction (principal); F31.9 Bipolar disorder, unspecified; F90.9 Attention-deficit hyperactivity disorder, unspecified type; R56.9 Unspecified convulsions; Z87.442 Personal history of urinary calculi; Z79.899 Other long term (current) drug therapy

== ENCOUNTER 2021-08-31 22:21 | Emergency (ER) | payer MEDICAID ==
--- OUTSIDE RECORDS SUMMARY | 2021-08-31 22:26 | CCD ---
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 Sodium [Moles/volume] in Serum or Plasma 136 mEq/L 134 - 153 [facility] Potassium [Moles/volume] in Serum or Plasma 3.8 mEq/L 3.6 - 5.0 [facility] Chloride [Moles/volume] in Serum or Plasma 103 mEq/L 98 - 107 [facility] Carbon dioxide, total [Moles/volume] in Serum or Plasma 26 MEQ/L 22 - 30 [facility] Glucose [Mass/volume] in Serum or Plasma 106 MG/DL 65 - 110 [facility] BUN 14 MG/DL 7 - 21 [facility] Creatinine [Mass/volume] in Serum or Plasma 0.6 MG/DL 0.7 - 1.5 L [facility] BUN/CREAT 23 8 - 27 [facility] Protein [Mass/volume] in Serum or Plasma 6.6 G/DL 6.3 - 8.2 [facility] Albumin [Mass/volume] in Serum or Plasma 4.3 G/DL 3.9 - 5.0 [facility] Globulin [Mass/volume] in Serum by calculation 2.3 GM/DL 2.4 - 3.2 L [facility] A/G RATIO 1.9 0.8 - 2.0 [facility] Calcium [Mass/volume] in Serum or Plasma 9.3 MG/DL 8.4 - 10.2 [facility] Bilirubin.total [Mass/volume] in Serum or Plasma 0.8 MG/DL 0.2 - 1.3 [facility] Alkaline phosphatase [Enzymatic activity/volume] in Serum or Plasma 108 U/L 38 - 126 [facility] Aspartate aminotransferase [Enzymatic activity/volume] in Serum or Plasma 17 U/L 5 - 40 [facility] Alanine aminotransferase [Enzymatic activity/volume] in Seru m or Plasma 18 U/L 7 - 56 [facility] Anion gap 3 in Serum or Plasma 7.0 mmol/L 8.0 - 16.0 L [facility] AGE 29 yrs [facility] NON-AA GFR >60 mL/min [facility] ital AFR AMER GFR >60 mL/min [facility] spital Male GFR In terprentation [...] >32 mL/min Normal ID Date Data Source [id number] 08/29/2020 01:45:00 AM EST [facility] Name Value Range Interpretation Code Description Data Cecy rce(s) Supporting Document(s) Lactate [Moles/volume] in Serum or Plasma 1.0 MMOL/L 0.2 - 2.2 [facility] ID Date Data Source [id number] 08/29/2020 01:42:00 AM EST [facility] Name Value Range Interpretation Code Description Data Cecy rce(s) Supporting Document(s) CBC W/AUTOMATED DIFF [facility] COMPLETE BLOOD COUNT Leukocytes [#/volume] in Blood by Automated count 8.4 10^3/uL 4.2 - 1 1.0 [facility] Erythrocytes [#/volume] in Blood by Automated count 4.97 10^6/uL 4. 50 - 6.30 [facility] Hemoglobin [Mass/volume] in Blood 15.1 g/dL 14.0 - 16.0 [facility] Hematocrit [Volume Fraction] of Blood by Automated count 43.8 % 4 1.0 - 51.0 [facility] Erythrocyte mean corpuscular volume [Entitic volume] by Auto mated count 88.1 fL 80.0 - 94.0 [facility] Erythrocyte mean corpuscular hemoglobin [Entitic mass] by Automated count 30.4 pg 27.0 - 34.0 [facility] Erythrocyte mean corpuscular hemoglobin concentration [Mass/volume] by Automated count 34.5 g/dL 31.0 - 36.0 [facility] Erythrocyte distribution width [Ratio] by Automated count 12.6 % 11.5 - 14.8 [facility] Platelets [#/volume] in Blood by Automated count 258 10^3/uL 150 - 45 0 [facility] Platelet mean volume [Entitic volume] in Blood by Automated count 9.9 fL 7.4 - 10.4 [facility] Neutrophils/100 leukocytes in Blood by Automated count 59.4 % 37. 0 - 80.0 [facility] Lymphocytes/100 leukocytes in Blood by Manual count 28.6 % 25.0 - 40.0 [facility] Monocytes/100 leukocytes in Blood by Automated count 8.9 % 3.0 - 8.0 H [facility] Eosinophils/100 leukocytes in Blood by Automated count 2.1 % 0.0 - 7.0 [facility] Basophils/100 leukocytes in Blood by Automated count 0.6 % 0.0 - 2.0 [facility] %IG 0.4 % 0.0 - 0.0 H [facility] al %NRBC 0.0 % 0.0 - 0.0 [facility] al Neutrophils [#/volume] in Blood by Automated count 4.99 10^3/uL 2.00 - 6.90 [facility] Lymphocytes [#/volume] in Blood by Automated count 2.40 10^3/uL 0.60 - 3.40 [facility] Monocytes [#/volume] in Blood by Automated count 0.75 10^3/uL 0.00 - 0.90 [facility] Eosinophils [#/volume] in Blood by Automated count 0.18 10^3/uL 0.00 - 0.70 [facility] Basophils [#/volume] in Blood by Automated count 0.05 10^3/uL 0.00 - 0.20 [facility] #IG 0.03 10^3/uL 0.00 - 0.10 [facility] ospital #NRBC 0.00 10^3/uL 0.00 - 0.00 [facility] ospital MANUAL DIFF NOT INDICATED [facility] RBC MORPH NOT INDICATED [facility] ID Date Data Source [id number] 08/29/2020 01:40:00 AM EST [facility] Name Value Range Interpretation Code Description Data Cecy rce(s) Supporting Document(s) DRUG SCREEN URINE [facility] URINE DRUG SCREEN Amphetamine [Presence] in Urine by Screen method NEGATIVE NORMAL: N EGATIVE [facility] BARBITURATES NEGATIVE NORMAL: NEGATIVE [facility] BENZO NEGATIVE NORMAL: NEGATIVE [facility] COCAINE NEGATIVE NORMAL: NEGATIVE [facility] Tetrahydrocannabinol [Presence] in Urine NEGATIVE NORMAL: NEGATIVE [facility] OPIATES NEGATIVE NORMAL: NEGATIVE [facility] Phencyclidine [Presence] in Urine by Screen method NEGATIVE NOR MAL: NEGATIVE [facility] \\BLDo\\URINE DRUG SCR EEN INTERPRETATION\\BLDx\\ THE CUTOFFF LEVELS FOR DETECTION ARE FOLLOWS: AMPHETAMINES 1000 ng/ml BARBITUARATES 200 ng/ml BENZODIAZEPINES 100 ng/ml THC 50 ng/ml PHENCYCLIDINE 25 ng/ml OPIATES 300 ng/ml COCAINE 300 ng/ml ALL POSITIVES ARE CONSIDERED PRESUMPTIVE POSITIVE CONFIRMATION WILL BE PERFORMED AT PHYSICIAN REQUEST. ID Date Data Source [id number] 08/29/2020 01:25:00 AM EST [facility] Name Value Range Interpretation Code Description Data Cecy rce(s) Supporting Document(s) [facility]IS [facility] URINALYSIS SOURCE R [facility] al COLOR yellow NORMAL: Yellow [facility] ospital CLARITY clear NORMAL: Clear [facility] spital Specific gravity of Urine by Test strip 1.010 1.001 - 1.030 [facility] pH 6.5 5 - 9 [facility] al Glucose [Mass/volume] in Urine by Test strip NORM NORMAL: Negat [facility] Bilirubin.total [Presence] in Urine by Test strip NEG NORMAL: Negative [facility] Ketones [Presence] in Urine by Test strip NEG NORMAL: Negative [facility] Protein [Mass/volume] in Urine by Test strip NEG NORMAL: Negat [facility] Nitrite [Presence] in Urine by Test strip NEG NORMAL: Negative [facility] BLOOD NEG NORMAL: Negative [facility] Leukocyte esterase [Presence] in Urine by Test strip NEG [place] L: Negative [facility] Urobilinogen [Mass/volume] in Urine by Test strip NOR less alida n 1.0 mg/dL [facility] MICROSCOPIC Not Indicate [facility] ospital ID Date Data Source [id number] 08/19/2020 01:52:52 PM EDT [facility] Vital SignsBlood Pressure: 138/82 Patient History Medical History:Brain TumorSeizure DisorderDepressionHx of kidney stonesBipolarSurgical History:Partial lobectomyFamily History:No known family historySocial/Personal History: Smoking Status: current some day smokerDo you vape? NoCurrent Problems: Normal examination (ICD-V65.5) (KWS39-O58.1)Dental caries/Impaction of teeth (ICD-521.00) (VOK77-G29.9)Contact dermatitis and other eczema, unspecified cause (ICD-692.9) (XFK59-Q04.9)Depression (ICD-311) (YQO71-F22.9)Seizure Disorder (ICD-780.39) (FMQ61-P35.9)Brain Tumor (ICD-191.9) (EDX60-T00.9)Problem list reviewed during this update.Current Medications: SEROQUEL [...] on Tooth # 1 (Performed by Behzad HOAWRDKimberley) T - (D2140) Amalgam-one surface, primary or [...] PM): ; yany (Aug 20 2020 7:29AM): [facility](-). CC: none. Reviewed Xrays. Exam: [...] Known Allergies (updated 08/19/2020) Orders:Oral Surgery Referral [[id number]] Clinical Visit Summary Declined Name Value Range Interpretation Code Description Data Cecy rce(s) Supporting Document(s) ID Date Data Source [id number] 08/14/2020 07:17:00 PM EDT [facility] 1 Medication Reconciliation Report [facility] Department [address] [place] [address] Phone #: ext- [phone] 08/14/2020 19:09 Patient: [...] Value Range Interpretation Code Description Data [facility](s) Supporting Document(s) ID Date Data Source [id number] 08/14/2020 07:17:00 PM EDT [place] [address] Medication Administration Record [facility] Department [address] [place] [address] Phone #: ext- [phone] 19:09 Patient: CAMILO LAWSON Sex: M : 1990 Age: 29yWeight: 81.6 kgHeight/Length: 72 inBMI: 24.4ALLERGIES: No Known Drug AllergyDate/Time Medication Administered Medication Ordered Name Value Range Interpretation Code Description Data Cecy rce(s) Supporting Document(s) ID Date Data Source [id number] 08/14/2020 07:17:00 PM EDT [facility] 1 General Instructions [facility] Department [address] [place] [address] Phone #: ext- [phone] 08/14/2020 19:09 Patient: CAMILO LAWSON Sex: M : 1990 Age: 29y Anxiety reaction. No hyperventilation.INSTRUCTIONS Warnings: GENERAL WARNINGS: Return or contact your physician immediately if your condition worsens or changes unexpectedly, if not improving as expected, or if other problems arise. Understanding of the discharge instructions verbalized by patient. Follow-up with: [facility], , , [address] [place], [address] Follow up in one week. Call for [...] may experience: Dry mouth 2 General Instructions [facility] Department [address] [place] [address] Phone #: ext- [phone] 08/14/2020 19:09 Patient: [...] Also, there are certain 3 General Instructions [facility] Department [address] [place] [address] Phone #: ext- [phone] 08/14/2020 19:09 Patient: [...] andtemporary medicine to help you manage stress.Call [phone] [phone] if any of these happen: Trouble breathing [...] and mild pain reliever 4 General Instructions [facility] Department [address] [place] [address] Phone #: ext- [phone] 08/14/2020 19:09 Patient: CAMILO LAWSON Sex: M : 1990 Age: 29y [phone] [employer]. [address] [place] [address]. All rights reserved. This information is not intended as asubstitute for professional medical care. Always follow your healthcare professional's instructions. You have been given the following additional information: Anxiety Reaction(Electronically signed by Pedro Rizo, 08/14/2020 20:15) Name Value Range Interpretation Code Description Data Cecy rce(s) Supporting Document(s) ID Date Data Source [id number] 08/14/2020 07:17:00 PM EDT [facility] 1 Clinical Report - Nurses [facility] [address] [place] [address] Phone #: ext- [phone] 08/14/2020 19:09 Patient: CAMILO LAWSON Sex: M : 1990 Age: 29yTRIAGEHistorian: patient.Acuity: LEVEL 4.Chief Complaint: (wants to be checked out denies any symptoms).No acute distress.No fever, weakness, cough, difficulty breathing or skin rash. Denies muscle aches. --1908/14/20Alfonso Buck R.N.08/14/20. BP: 136/98. MAP: 110. HR: [...] no barriers. 2 Clinical Report - Nurses [facility] Department [address] [place] [address] Phone #: ext- [phone] 08/14/2020 19:09 Patient: CAMILO LAWSON [facility]#: [id number] Sex: M : 1990 Age: 29y FALL RISK ASSESSMENT: Fall risk assessment completed. No risk factors identified. SKIN INTEGRITY ASSESSMENT: Skin integrity risk assessment completed. No skin integrity risk identified. --19:30 08/14/20 Alfonso Buck R.N. FAMILY HX: No significant family medical history. --19:53 08/14/20 Pedro Rizo.PHYSICAL [id number] 08/14/20. Ambulatory to room.GENERAL / NEURO / [...] Patient verbalized understanding. Written instructions provided in Mongolian. The patient was discharged home and unaccompanied at time of discharge. He left ambulatory and via taxi. 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 --20:04 08/14/20 Carito Barry R.N. 20:03 08/14/20. BP: 141/93. MAP: 109. HR: 81. RR: 16. O2 saturation: 98%. Temp: 97.9 F. Pain level now: 0/10. --20:04 08/14/20 Carito Barry R.N.Locked/Released at 08/14/2020 20:04 by Carito aBrry R.N. Name Value Range Interpretation Code Description Data Cecy rce(s) Supporting Document(s) ID Date Data Source [id number] 08/14/2020 07:17:00 PM EDT [facility] 1 Clinical Report - Physicians/Mid Levels [facility] Emergency Department [address] [place] [address] Phone #: ext- [phone] 08/14/2020 19:09 Patient: [...] alone. 2 Clinical Report - Physicians/Mid Levels [facility] Department [address] [place] [address] Phone #: ext- [phone] 08/14/2020 19:09 Patient: [...] patient. 3 Clinical Report - Physicians/Mid Levels [facility] Department [address] [place] [address] Phone #: ext- [phone] 08/14/2020 19:09 Patient: CAMILO LAWSON Sex: M : 1990 Age: 29y Follow-up with: [facility], , , [address] [place] [address], [address] Follow up in one week. Call for an appointment.(Electronically signed by Pedro Rizo, 08/14/2020 20:15) Name Value Range Interpretation Code Description Data Cecy rce(s) Supporting Document(s) Procedure Social History Code Duration Value Status Description Data Source(s ) Smoking 08/30/2021 12:00:00 AM EST Smoker, current status unkn own completed Smoker, current status unknown [facility]) Smoking 07/20/2021 12:00:00 AM EDT Smoker, current status unkn own completed Smoker, current status unknown [facility] ([facility]) Smoking 07/05/2021 12:00:00 AM EDT Smoker, current status unkn own completed Smoker, current status unknown [facility] ([facility]) Smoking 03/29/2021 12:00:00 AM EDT Smoker, current status unkn own completed Smoker, current status unknown [facility] ([facility]) Smoking 02/17/2021 12:00:00 AM EDT Smoker, current status unkn own completed Smoker, current status unknown [facility] ([facility]) Smoking 01/01/2021 12:00:00 AM EST Smoker, current status unkn own completed Smoker, current status unknown [facility] ([facility]) Smoking 11/17/2020 12:00:00 AM EST Smoker, current status unkn own completed Smoker, current status unknown [facility] ([facility]) Smoking 11/02/2020 12:00:00 AM EST Smoker, current status unkn own completed Smoker, current status unknown [facility] ([facility]) Smoking 10/20/2020 12:00:00 AM EST Smoker, current status unkn own completed Smoker, current status unknown [facility] ([facility]) Smoking 09/24/2020 12:00:00 AM EST Smoker, current status unkn own completed Smoker, current status unknown [facility] ([facility]) Smoking 09/02/2020 12:00:00 AM EST Smoker, current status unkn own completed Smoker, current status unknown [facility] ([facility]) Smoking 08/19/2020 12:00:00 AM EDT Smoker, current status unkn own completed Smoker, current status unknown [facility]) Smoking 08/18/2020 12:00:00 AM EDT Smoker, current status unkn own completed Smoker, current status unknown [facility] ([facility]) Smoking 07/29/2020 12:00:00 AM EDT Smoker, current status unkn own completed Smoker, current status unknown [facility] ([facility]) Smoking 07/22/2020 12:00:00 AM EDT Smoker, current status unkn own completed Smoker, current status unknown [facility]) Smoking 07/10/2020 12:00:00 AM EDT Smoker, current status unkn own completed Smoker, current status unknown [facility] ([facility])
--- OUTSIDE RECORDS SUMMARY | 2021-08-31 22:26 | CCD ---
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 Medications Rx Norm Medication Route Route Concept Start Date Stop Date Dosage Diego quency Duration Formula Strength Dosage Form Dosage Form Code Dosage Description Medication Id Account Npid Author First Name Author Last Name Taxonomy Code Taxonomy Desc Phone Number [id number] Sanchez Chery 01/04/2018 every four weeks 300 mg suspension,extended rel recon [id number] [phone] Laurie Mckeon [id number] Nurse Practitioner [phone] [id number] Seroquel 07/25/2019 30 300 mg tablet [id number] [phone] Irlanda Mckeon [id number] Nurse Practitioner [phone] Social History Social History Element Description Concept Effective Date Smoking Status Smoker, current status unknown [id number] Immunizations No Data in Section Vital Signs No Data in Section Procedures Date Concept Id Description Targeted Site Concept Targeted Site Concept Type 08/27/2021 [id number] Extended Individual Psychotherapy - 45 min CPT Patient has no history of implantable de vices Encounters Encounter Start Date End Date Encounter Type Description Diagnosis Di agnosis Desc Location Author First Name Author Last Name Npid Taxonomy Cod e Taxonomy Desc Phone Number Location Addr1 Location Addr2 Location City Location Sta Location Zip [id number] 08/27/2021 08/27/2021 58076 Extended Individual Psych otherapy - 45 min 

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
[2021-08-31 23:27] VITALS: BP 150/96
== END 2021-08-31 23:30 | disposition home or self-care (01) ==
LOC: M ED 22:21
DX: F31.9 Bipolar disorder, unspecified (principal); Z79.899 Other long term (current) drug therapy

== ENCOUNTER 2021-09-08 17:53 | Emergency (ER) | payer MEDICAID ==
[2021-09-08] MEDS ORDERED: LEVE500T5 (17:59)
--- OUTSIDE RECORDS SUMMARY | 2021-09-08 21:55 | CCD ---
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 www.epilepsy.com/driving-laws.When to seek medical adviceCall your healthcare provider [...] or painful neck Headache that gets worse [phone] [employer]. [address] [place] [address]. All rights reserved. This information is not intended as a 4 General Instructions [facility] Emergency Department [address] [place] [address] Phone #: ext- [phone] 09/04/2021 18:54 Patient: CAMILO LAWSON Sex: M : 1990 Age: 30ysubstitute for professional medical care. Always follow your healthcare professional's instructions. You have been given the following additional information: Seizure, Recurrent (Adult)(Electronically signed by Pedro Rizo 09/04/2021 21:21) Name Value Range Interpretation Code Description Data Cecy rce(s) Supporting Document(s) ID Date Data Source [id number] 09/04/2021 06:55:00 PM EST [facility] 1 Clinical Report - Nurses [facility] Emergency Department [address] [place] [address] Phone #: ext- [phone] 09/04/2021 18:54 Patient: CAMILO LAWSON Sex: M : 1990 Age: 30yTRIAGEArrived by private vehicle. Historian: patient.Acuity: LEVEL 3.Chief Complaint: POSSIBLE SEIZURE (single episode) and (Not taking his seizure meds because hedrinks. Unsure of last dose. Pt was laying on couch and awoke on floor. Bit inside of mouth, uncompliantwith meds.).Alert. No acute distress.This occurred just prior to arrival. 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 SEPSIS SCREEN NEGATIVE.No suspected or confirmed signs of infection present. --19:03 09/04/21 Neida Mittal R.N.18:57 09/04/21. BP: 148/81. MAP: 103. HR: 109. RR: 18. O2 saturation: 93% on room air. Temp: 98.9 F(oral). Pain level now: 10/10. Describes the quality as aching. --19:03 09/04/21 Neida Mittal R.N.Weight: 84.9 kg measured. Height/Length: 69 inches Measured. BMI: 27.7. --19:03 09/04/21 Neida Mittal R.N.MedicationsQUEtiapine Fumarate Oral (Tablet 300 mg), daily. --18:58 09/04/21 Neida Mittal R.N. levETIRAcetam Oral (Tablet 500 mg), 2x a day (unsure of last dose). --18:59 09/04/21 Neida Mittal R.N.AllergiesNo Known Drug Allergy. --18:58 09/04/21 Neida Mittal R.N.PROBLEMS:Lifestyle / Substance Problems.Depression.Mental disabled .Nephrolithiasis.Anxiety Reaction.Brain tumor.Bipolar Disorder.[place] dis order. 2 Clinical Report - Nurses [facility] Emergency Department [address] [place] [address] Phone #: ext- [phone] 09/04/2021 18:54 Patient: CAMILO LAWSON Sex: M : 1990 Age: 30yADHD - Attention Deficit Hyperactivity Disorder.Seizure Disorder.Seizure.Schizophrenia.Tbi.Psychosis.Obsessive Compulsive Disorder.Paranoid schizophrenia. --19:00 09/04/21 Neida Mittal R.N.The following entry was modified by Neida Mittal R.N., 19:00 09/04/21Insomnia: Chronic. --19:00 09/04/21 Neida Mittal R.N..ADDITIONAL SURGERIES:Brain surgery.Brain surgery (Removed tumors).Brain surgery.BRAIN TUMOR A CHILD.Craniotomy.Knee Surgery.Tumor removal/cranial surgery. --19:00 09/04/21 Neida Mittal R. N.HistorySOCIAL HX: Never smoker. Heavy alcohol use. Last drink was 2 days ago. Drug use: marijuana. Hewas offered HIV testing but declined and hepatitis C testing but declined. He has not traveled outside the.[place].Infectious disease exposure: No infectious disease exposure. The patient was not exposed to Coronavirus.SELF HARM ASSESSMENT: Self harm assessment was performed. The patient answered "no" to thequestion(s) "Have you recently felt down, depressed, or hopeless?" and "Have you recently had thoughtsabout harming or killing others?".ABUSE ASSESSMENT: No report of abuse.NUTRITIONAL RISK ASSESSMENT: The nutritional risk assessment revealed no deficiencies.FUNCTIONAL ASSESSMENT: Functional assessment: no impairments noted.LEARNING NEEDS ASSESSMENT: The learning needs assessment revealed no barriers.FALL RISK ASSESSMENT: Fall risk assessment completed. No risk factors identified.SKIN INTEGRITY ASSESSMENT: Skin integrity risk assessment completed. No skin integrity riskidentified. --19:09/04/21 Neida Mittal R.N. 3 Clinical Report - Nurses [facility] Emergency Department [address] [place] [address] Phone #: ext- [phone] 09/04/2021 18:54 Patient: CAMILO LAWSON Sex: M : 1990 Age: 30y Interventions Identification band on patient. To treatment room. --:09/04/21 Neida Mittal R.N.NURSING PROGRESS NOTESSeizure precautions initiated. Two patient identifiers checked. Call light placed in reach. Side rails up x2. Bed placed in lowest position. Brakes of bed on. Patient ready for evaluation- chart flagged. --: Neida Mittal R.N. 19:33 09/04/2021 Site #1 started via IV in the right antecubital space with an 20g angiocath; two attempts. Saline lock flushed with saline. --09/04/21 Shari Beltran R.N. 19:33 09/04/2021 Started 1000 mg of Keppra (levETIRAcetam) IVPB in bag #1 100 mL; at 200 mL/hr via site #1 via IV pump. Allergies verified and confirmed 5 rights. IV patency established. IV site checked: no pain, redness, or swelling. IV flushed thoroughly pre- and post-medication administration. --19:36 09/04/21 Shari Beltran R.N. 20:06 09/04/2021 Acetaminophen PO 1000 mg given. Allergies verified and confirmed 5 rights. Information reviewed with patient including reason for taking this medication. Verbalizes understanding. --20:06 09/04/21 Shari Beltran R.N. Patient returned from [facility] by wheelchair with mask and tech. --20:06 09/04/21 Shari Beltran R.N. Charted On Wrong Patient --20:07 09/04/21 Shari Beltran R.N. 19:52 09/04/21. Patient transported to [facility] by wheelchair with mask and tech. --20:07 09/04/21 Shari Beltran R.N. Charted On Wrong Patient --20:07 09/04/21 Shari Beltran R.N. 20:02 09/04/21. The patient is calm and resting quietly. GENERAL / NEURO / PSYCH: The patient reports headache that is moderate in severity. Alert. Oriented X 4. --20:07 09/04/21 Shari Beltran R.N. 20:08 09/04/21. BP: 127/80. MAP: 95. HR: 104. RR: 20. O2 saturation: 94%. --20:09 09/04/21 Vinny Parker 20:14 09/04/2021 Keppra IVPB via IV site #1 Discontinued: bag #1 completed upon discharge. Total amount infused: 100 mL. IV patency established. IV site checked: no pain, redness, or swelling. IV flushed thoroughly. --20:14 09/04/21 Shari Beltran R.N.DISPOSITION / DISCHARGE 20:57 09/04/2021 Site #1 removed upon discharge. Catheter intact. Manual pressure and bandage applied. --20:57 09/04/21 Shari Beltran R.N. Condition at departure: stable. No learning barriers present. Discharge instructions provided and reviewed with the patient. Patient verbalized understanding. Written instructions provided in Latvian. The patient was discharged by the physician. He was discharged home. He left ambulatory. ( Pt 4 Clinical Report - Nurses [facility] Emergency Department [address] [place] [address] Phone #: ext- [phone] 09/04/2021 18:54 Patient: CAMILO LAWSON Sex: M : 1990 Age: 30y became irate and using abusive language towards staff when being discharged. Police called.). --21:02 09/04/21 Shari Beltran R.N. 20:56 09/04/21. BP: 120/68. MAP: 85. HR: 100. RR: 18. O2 saturation: 100%. Temp: 98.2 F. Pain level now: 0/10. --21:02 09/04/21 Shari Beltran R.N.Locked/Released at 09/04/2021 21:03 by Shari Beltran R.N. Name Value Range Interpretation Code Description Data Cecy rce(s) Supporting Document(s) ID Date Data Source [id number] 09/04/2021 06:55:00 PM [facility] 1 Clinical Report - Physicians/Mid Levels [facility] Emergency Department [address] [place] [address] Phone #: ext- [phone] 09/04/2021 18:54 Patient: CAMILO LAWSON Sex: M : 1990 Age: 30y Time Seen: 19:04 09/04/2021. Arrived- By ambulance. Historian- patient.HISTORY OF PRESENT ILLNESS Chief Complaint: SEIZURE. This occurred just prior to arrival. The patient has recovered. Patient was reported to be last known well. Seizure was not witnessed. Had a single isolated seizure. Seizure activity was brief. The patient lost consciousness. No incontinence or headache post-ictally. No recent sleep deprivation. He has had alcohol consumption recently. He bel ieves he took his seizure medication. Reports poor short term memory. bit the inner cheek during seizure tonight. He recalls laying on couch at home this evening when he suffered seizure. States his last drink was 2 days ago, but drank heavily two nights ago. Similar symptoms previously. Recent medical care: Not recently seen/assessed.REVIEW OF SYSTEMSNo fever, chest pain, cough, eye irritation or nausea. No enlarged lymph nodes, vomiting, joint pain,double vision or photophobia. No urinary incontinence or headache. He had seizure activity. All othersystems reviewed and are negative.PAST HISTORYSee nurses notes. Seizures. Psychiatric problems. Problems: Tension-Type Headache. Depression. Mental disabled . Nephrolithiasis. Brain tumor. Bipolar Disorder. ADHD - Attention Deficit Hyperactivity Disorder. Seizure. Schizophrenia. Psychosis. Obsessive Compulsive Disorder. Paranoid schizophrenia. Additional Surgeries: Brain surgery. (Removed tumors) 2 Clinical Report - Physicians/Mid Levels [facility] Emergency Department [address] [place] [address] Phone #: ext- [phone] 09/04/2021 18:54 [id number] Sex[facility] M : 1990 Age: 30y Craniotomy. Knee Surgery. Medications: levETIRAcetam Oral (Tablet 500 mg), 2x a day (unsure of last dose). QUEtiapine Fumarate Oral (Tablet 300 mg), daily. Allergies: No Known Drug Allergy.SOCIAL HISTORYAlcohol use. (four locos).ADDITIONAL NOTESThe nursing notes have been reviewed.PHYSICAL EXAMVital Signs: 09/04/2021 18:57 BP: 148/81. MAP: 103. HR: 109. RR: 18. O2 saturation: 93% on room air.Temp: 98.9 F. Pain level now: 08/01.Appearance: Alert. No acute distress. (poor eye contact).Eyes: Pupils equal, round and reactive to light. Extraocular movements normal.ENT: Normal ENT inspection. Moist mucous membranes. Pharynx normal. (abrasion to left inner cheekmucosa).Neck: Normal inspection. Neck supple.CVS: Tachycardia. Heart sounds normal. Pulses normal.Respiratory: No respiratory distress. Painless inspiration. Breath sounds normal.Abdomen: Soft and nontender.Back: Normal inspection.Skin: Skin warm. Normal skin color. Normal skin turgor.Extremities: Extremities exhibit normal ROM. No lower extremity edema.Neuro: Alert. Oriented X 3. Speech normal. Cranial nerves normal (as tested). No cerebellar findings.Normal gait. No motor deficit. No sensory deficit. (Irritable mood, labile mood).LABS, X-RAYS, AND EKGEKG: EKG time: 18:57 09/04/2021. Rate: 110. Tachycardia. Normal P waves. Normal QRS complex.Normal axis. Normal ST and T waves and QT. The study has been interpreted contemporaneously byme. Interpretation time: 19:04 09/04/2021.Laboratory Tests: CMP: (LULU: 09/04/2021 19:23) ( MsgRcvd 09/04/2021 20:19) Final results Test Result Flag Units (Reference) COMPREHENSIVE METABOLIC PANEL COMPREHENSIVE METABOLIC PANEL SODIUM 139 mEq/L (134 - 153) POTASSIUM 4.1 mEq/L (3.6 - 5.0) CHLORIDE 104 mEq/L (98 - 107) CO2 23 MEQ/L (22 - 30) 3 Clinical Report - Physicians/Mid Levels [facility] Emergency Department [address] [place] [address] Phone #: ext- [phone] 09/04/2021 18:54 Patient: CAMILO LAWSON Sex: M : 1990 Age: 30y GLUCOSE 116 H MG/DL (70 - 99) BUN 11 MG/DL (7 - 21) CREATININE 0.8 MG/DL (0.7 - 1.5) BUN/CREAT 14 (8 - 27) TOTAL PROTEIN 6.5 G/DL (6.3 - 8.2) ALBUMIN 4.4 G/DL (3.9 - 5.0) GLOBULIN 2.1 L GM/DL (2.4 - 3.2) A/G RATIO 2.1 H (0.8 - 2.0) CALCIUM 9.1 MG/DL (8.4 - 10.2) TOTAL BILI <0.7 MG/DL (0.2 - 1.3) ALKALINE PHOS 90 U/L (38 - 126) SGOT/AST 29 U/L (5 - 40) SGPT/ALT 30 U/L (7 - 56) ANION GAP 12.0 mmol/L (8.0 - 16.0) AGE 30 yrs NON-AA GFR >60 mL/min AFR AMER GFR >60 mL/min Male GFR Interprentation 20-49 yrs >60 mL/min Gxgums87-41 yrs >56 mL/min Normal 60-69 yrs >49 mL/min Normal 70-79yrs>42 mL/min Normal 80 and above >35 mL/min Normal Female GFRInterpretation 20-39 yrs >60 mL/min Normal 40-49 yrs >58 mL/minNormal 50-59 yrs >51 mL/min Normal 60-69 yrs >45 mL/min Juvccn33-80 yrs >39 mL/min Normal 80 and above >32 mL/min NormalCBC w Diff: (LULU: 09/04/2021 19:23) ( MsgRcvd 09/04/2021 19:44) Final results Test Result Flag Units (Reference) CBC W/AUTOMATED DIFF COMPLETE BLOOD COUNT WBC 18.7 H 10/uL (4.2 - 11.0) RBC 4.72 10/uL (4.50 - 6.30) HEMOGLOBIN 14.8 g/dL (14.0 - 16.0) HEMATOCRIT 43.4 % (41.0 - 51.0) MCV 91.9 fL (80.0 - 94.0) MCH 31.4 pg (27.0 - 34.0) MCHC 34.1 g/dL (31.0 - 36.0) RDW 12.4 % (11.5 - 14.8) PLATELETS 251 10/uL (150 - 450) MPV 10.0 fL (7.4 - 10.4) NEUT 89.8 H % (37.0 - 80.0) LYMPH 4.3 L % (25.0 - 40.0) MONO 5.0 % (3.0 - 8.0) EOS 0.1 % (0.0 - 7.0) BASO 0.3 % (0.0 - 2.0) %IG 0.5 H % (0.0 - 0.0) %NRBC 0.0 % (0.0 - 0.0) #NEUT 16.74 H 10/uL (2.00 - 6.90) #LYMPH 0.81 10/uL (0.60 - 3.40) #MONO 0.94 H 10/uL (0.00 - 0.90) #EOS 0.02 10/uL (0.00 - 0.70) #BASO 0.06 10/uL (0.00 - 0.20) #IG 0.10 10/uL (0.00 - 0.10) #NRBC 0.00 10/uL (0.00 - 0.00) MANUAL DIFF NOT INDICATED RBC MORPH NOT INDICATEDMagnesium: (LULU: 09/04/2021 19:23) ( MsgRcvd 09/04/2021 20:11) Final results Test Result Flag Units (Reference) MAGNESIUM 2.0 MG/DL (1.7 - 2.2) 4 Clinical Report - Physicians/Mid Levels [facility] Emergency Department [address] [place] [address] Phone #: ext- [phone] 09/04/2021 18:54 Patient: CAMILO LAWSON Sex: Chelo : 1990 Age: 30y ETOH: (LULU: 09/04/2021 19:23) ( MsgRcvd 09/04/2021 20:11) Final results Test Result Flag Units (Reference) ALCOHOL <10.0 MG/DL ALCOHOL % 0.01 % (0.00 - 0.01) *FOR MEDICAL PURPOSES ONLY*.PROGRESS AND PROCEDURESCourse of Care: 20:39 09/04/21. Possible seizure due to noncompliance or alcohol withdrawal/abuse. Nosigns of alcohol intoxication. no signs of acute alcohol withdrawal at this time. Vital signs normal. 20:52 09/04/21. Released from ED. Requesting to be transported home in [place] or to his friend's house in [place]. Angry and using profanity towards staff. Agitated and cursing at staff. Old medical records ordered. Disposition: Discharged. Condition: stable.CLINICAL IMPRESSION Generalized seizure of unknown cause. History of poorly controlled epilepsy. No status epilepticus or history of idiopathic etiology epilepsy.INSTRUCTIONS No alcohol. Warnings: Further evaluation is necessary. GENERAL WARNINGS: Return or contact your physician immediately if your condition worsens or changes unexpectedly, if not improving as expected, or if other problems arise. Your Current Medications: Your current home medications have been reviewed. CONTINUE TAKING THE FOLLOWING MEDICATIONS: levETIRAcetam Oral : Tablet 500 mg, 2x a day, unsure of last dose. QUEtiapine Fumarate Oral : Tablet 300 mg, daily. Follow-up: Follow up with your healthcare provider. Understanding of the discharge instructions verbalized by patient. 5 Clinical Report - Physicians/Mid Levels [facility] Emergency Department [address] [place] [address] Phone #: ext- [phone] 09/04/2021 18:54 Patient: CAMILO LAWSON Sex: M : 1990 Age: 30y(Electronically signed by Pedro Rizo 09/04/2021 21:21) Name Value Range Interpretation Code Description Data Cecy rce(s) Supporting Document(s) ID Date Data Source [id number] 09/04/2021 07:43:00 PM EST [facility] Name Value Range Interpretation Code Description Data Cecy rce(s) Supporting Document(s) CBC W/AUTOMATED DIFF [facility] COMPLETE BLOOD COUNT Leukocytes [#/volume] in Blood by Automated count 18.7 10^3/uL 4.2 - 11.0 H [facility] Erythrocytes [#/volume] in Blood by Automated count 4.72 10^6/uL 4. 50 - 6.30 [facility] Hemoglobin [Mass/volume] in Blood 14.8 g/dL 14.0 - 16.0 [facility] Hematocrit [Volume Fraction] of Blood by Automated count 43.4 % 4 1.0 - 51.0 [facility] Erythrocyte mean corpuscular volume [Entitic volume] by Auto mated count 91.9 fL 80.0 - 94.0 [facility] Erythrocyte mean corpuscular hemoglobin [Entitic mass] by Automated count 31.4 pg 27.0 - 34.0 [facility] Erythrocyte mean corpuscular hemoglobin concentration [Mass/volume] by Automated count 34.1 g/dL 31.0 - 36.0 [facility] Erythrocyte distribution width [Ratio] by Automated count 12.4 % 11.5 - 14.8 [facility] Platelets [#/volume] in Blood by Automated count 251 10^3/uL 150 - 45 0 [facility] Platelet mean volume [Entitic volume] in Blood by Automated count 10.0 fL 7.4 - 10.4 [facility] Neutrophils/100 leukocytes in Blood by Automated count 89.8 % 37. 0 - 80.0 H [facility] Lymphocytes/100 leukocytes in Blood by Manual count 4.3 % 25.0 - 40.0 L [facility] Monocytes/100 leukocytes in Blood by Automated count 5.0 % 3.0 - 8.0 [facility] Eosinophils/100 leukocytes in Blood by Automated count 0.1 % 0.0 - 7.0 [facility] Basophils/100 leukocytes in Blood by Automated count 0.3 % 0.0 - 2.0 [facility] %IG 0.5 % 0.0 - 0.0 H [facility] al %NRBC 0.0 % 0.0 - 0.0 [facility] al Neutrophils [#/volume] in Blood by Automated count 16.74 10^3/uL 2. 00 - 6.90 H [facility] Lymphocytes [#/volume] in Blood by Automated count 0.81 10^3/uL 0.60 - 3.40 [facility] Monocytes [#/volume] in Blood by Automated count 0.94 10^3/uL 0.00 - 0.90 H [facility] Eosinophils [#/volume] in Blood by Automated count 0.02 10^3/uL 0.00 - 0.70 [facility] Basophils [#/volume] in Blood by Automated count 0.06 10^3/uL 0.00 - 0.20 [facility] #IG 0.10 10^3/uL 0.00 - 0.10 [facility] ospital #NRBC 0.00 10^3/uL 0.00 - 0.00 [facility] ospital MANUAL DIFF NOT INDICATED [facility] RBC MORPH NOT INDICATED [facility] spital ID Date Data Source [id number] 09/04/2021 08:19:00 PM EST [facility] Name Value Range Interpretation Code Description Data Cecy rce(s) Supporting Document(s) COMPREHENSIVE METABOLIC PANEL [facility] COMPREHENSIVE METABOLIC PANEL Sodium [Moles/volume] in Serum or Plasma 139 mEq/L 134 - 153 [facility] Potassium [Moles/volume] in Serum or Plasma 4.1 mEq/L 3.6 - 5.0 [facility] Chloride [Moles/volume] in Serum or Plasma 104 mEq/L 98 - 107 [facility] Carbon dioxide, total [Moles/volume] in Serum or Plasma 23 MEQ/L 22 - 30 [facility] Glucose [Mass/volume] in Serum or Plasma 116 MG/DL 70 - 99 H [facility] BUN 11 MG/DL 7 - 21 [facility] Creatinine [Mass/volume] in Serum or Plasma 0.8 MG/DL 0.7 - 1.5 [facility] BUN/CREAT 14 8 - 27 [facility] al Protein [Mass/volume] in Serum or Plasma 6.5 G/DL 6.3 - 8.2 [facility] Albumin [Mass/volume] in Serum or Plasma 4.4 G/DL 3.9 - 5.0 [facility] Globulin [Mass/volume] in Serum by calculation 2.1 GM/DL 2.4 - 3.2 L [facility] A/G RATIO 2.1 0.8 - 2.0 H [facility] Calcium [Mass/volume] in Serum or Plasma 9.1 MG/DL 8.4 - 10.2 [facility] Bilirubin.total [Mass/volume] in Serum or Plasma <0.7 MG/DL 0.2 - 1.3 [facility] Alkaline phosphatase [Enzymatic activity/volume] in Serum or Plasma 90 U/L 38 - 126 [facility] Aspartate aminotransferase [Enzymatic activity/volume] in Serum or Plasma 29 U/L 5 - 40 [facility] Alanine aminotransferase [Enzymatic activity/volume] in Seru m or Plasma 30 U/L 7 - 56 [facility] Anion gap 3 in Serum or Plasma 12.0 mmol/L 8.0 - 16.0 [facility] AGE 30 yrs [facility] al NON-AA GFR >60 mL/min [facility] ital AFR AMER GFR >60 mL/min [facility]ital Male GFR In terprentation [...] >32 mL/min Normal ID Date Data Source [id number] 09/04/2021 08:11:00 PM EST [facility] Name Value Range Interpretation Code Description Data Cecy rce(s) Supporting Document(s) Ethanol [Moles/volume] in Blood <10.0 MG/DL [facility] ALCOHOL % 0.01 % 0.00 - 0.01 [facility] ital *FOR MEDICAL PURPOSES ONLY * ID Date Data Source [id number] 09/04/2021 08:11:00 PM EST [facility] Name Value Range Interpretation Code Description Data Cecy rce(s) Supporting Document(s) Magnesium [Mass/volume] in Serum or Plasma 2.0 MG/DL 1.7 - 2.2 [facility] ID Date Data Source [id number] 08/20/2021 03:47:00 PM EDT [facility] Name Value Range Interpretation Code Description Data Cecy rce(s) Supporting Document(s) SARS coronavirus 2 RNA [Presence] in Res piratory specimen by WILLOW with probe detection [facility] was ordered by [facility] a nd reported by [facility]. ID Date Data Source [id number] 01/02/2021 07:12:00 PM EST [facility] Name Value Range Interpretation Code Description Data Cecy rce(s) Supporting Document(s) SARS coronavirus 2 RNA Not Detected [facility] This lab was ordered by [facility] and reported by [facility]. ID Date Data Source [id number] 12/18/2020 12:37:00 PM [facility] [address] [place] [address] RESPIRATORY CARE REPORT ==== ---------NAME------- NUMBER SEX AGE ADMIT DISC. XRAY# F/C JULIAN Navarro [id number] M 30 12/17/20 12/18/20 [id number] [id number] E/R DATE OF : 1990 M/R# [id number] #: [id number] TR-07 LOCATION: [place] [id number] COMP LETE:12/18/20 03:38 T [id number] PHYSICIAN: UJDY Cr Name Value Range Interpretation Code Description Data Cecy rce(s) Supporting Document(s) ID Date Data Source [id number] 12/17/2020 09:54:00 [place] [address] PHONE: [phone] FAX: [phone] Name .................. : BENJAMÍN Navarro Acct Number.................. : [id number] ROOM. ................. : -[facility] Number ................... : [id number] Stay type ............. : E/R Discharge Date......... ... : Admit Date ......... : 12/17/20 Admit Phys .................... : JUDY Cr Date of ....... : 1990 Family Phys ................... : NON STAFF Phone .................. : [phone] Age ................................ : 30 Film# .................. .:[id number] Sex ................................. : M Unsigned transcriptions are preliminary reports and do not represent a medical or legal document CHEST PORTABLE [id number] COMPLETE:12/17/20 20:14 5122 Reason(s): AMS PORTABLE CHEST [...] rce(s) Supporting Document(s) ID Date Data Source [id number] 12/17/2020 05:55:00 PM EST [facility] 1 OrderSheet [facility] Emergency Department [address] [place] [address] Phone #: ext- [phone] 12/17/2020 17:48 Patient: CAMILO LAWSON Sex: M : 1990 Age: 30yWEIGHT:87.4 kg (M) HEIGHT:69 inches (S) BMI:28.5ALLERGIES: NoneCHIEF COMPLAINT: depressionDIAGNOSIS: Psychotic disorderLAB ORDERSOrder Description Priority Entered Acknowledged InitialedAcetaminophen STAT 19:12/17/2020 19:27 Be sondra,Pedro Morales ; KatelynBMP STAT 19:12/17/2020 19:27 Judy Connelly [...] 20:00 12/17/2020 20:00 Peggy Joy) Peggy SifuentesN. R.N.; Per protocol; Alyssa Rizo STAT 03:57 12/18/2020 03:58 Sander Can OrderSheet [facility] Emergency Department [address] [place] [address] Phone #: ext- [phone] 12/17/2020 17:48 Patient: [...] 12/17/2020 21:15 Godwin,(NOW x1) Pedro Rizo ; DseinGENERAL ORDERSOrder Description Priority Entered Acknowledged InitialedEKG 20:14 12/17/2020 20:30 Peggy Connelly R.N.; Per protocol; Marcello Rizo[Electronically signed by Pedro Rizo (06:44 12/18/2020)][Electronically signed by Freddy Blanchard RN (08:38 12/18/2020)][Electronically locked by Freddy Blanchard RN (08:38 12/18/2020)] Name Value Range Interpretation Code Description Data Cecy rce(s) Supporting Document(s) ID Date Data Source [id number] 12/17/2020 05:55:00 PM [facility] 1 Medication Reconciliation Report [facility] Emergency Department [address] [place] [address] Phone #: ext- [phone] 12/17/2020 17:48 Patient: [...] rce(s) Supporting Document(s) ID Date Data Source [id number] 12/17/2020 05:55:00 PM [facility] 1 Medication Administration Record [facility] Emergency Department [address] [place] [address] Phone #: ext- [phone] 12/17/2020 17:48 Patient: CAMILO LAWSON Sex: M : 1990 Age: 30yWeight: 87.4 kgHeight/Length: 69 inBMI: 28.5ALLERGIES: None Date/Time Medication Administered Medication OrderedGiven HALDOL [IVP] (HALOPERIDOL Haldol IVP 5 mg (NOW x1)21:15 12/17/2020 LACTATE)Ana Connelly, Dose: 5 mg IVP Site: #1 left Name Value Range Interpretation Code Description Data Cecy rce(s) Supporting Document(s) ID Date Data Source [id number] 12/17/2020 05:55:00 PM [facility] 1 General Instructions [facility] Emergency Department [address] [place] [address] Phone #: ext- [phone] 12/17/2020 17:48 Patient: CAMILO LAWSON Sex: M : 1990 Age: 30yAcute drug induced (alcohol) psychosis with paranoia, associated with schizophrenia.(Electronically signed by Pedro Rizo 12/18/2020 06:44) Name Value Range Interpretation Code Description Data Cecy rce(s) Supporting Document(s) ID Date Data Source [id number] 12/17/2020 05:55:00 PM [facility] 1 Clinical Report - Nurses [facility] Emergency Department [address] [place] [address] Phone #: [phone]- [phone] 12/17/2020 17:48 Patient: CAMILO LAWSON Sex: M [...] Escalante RN. 2 Clinical Report - Nurses [facility] Emergency Department [address] [place] [address] Phone #: ext- [phone] 12/17/2020 17:48 Patient: CAMILO LAWSON [facility]#: [id number] Sex: M : 1990 Age: 30y ADDITIONAL [...] treatment room. --18:00 12/17/20 Shila Dorantes R.N.PHYSICAL SDLSECFXQH64:00 12/17/20. To room via stretcher.GENERAL / NEURO / PSYCH: Alert. Oriented X 4. Appears anxious. ( pt swearing yelling at staff).Pupillary exam: Right pupil 2mm and constricted. Left pupil: 2mm and constricted. 3 Clinical Report - Nurses [facility] Emergency Department [address] [place] [address] Phone #: ext- [phone] 12/17/2020 17:48 Patient: [...] with supervision with out incident). --18:32 12/17/20 Fredyd Blanchard RN ( 1845 pt oob pulling all wires off becoming belligerent , pt put back in bed, pt on cell phone talking to law enforcement [address] [facility] and [facility] police in ED arrived and talking with [...] 12/17/20 Godwin, Karrie Clinical Report - Nurses [facility] Emergency Department [address] [place] [address] Phone #: ext- [phone] 12/17/2020 17:48 Patient: CAMILO LAWSON Sex: M [...] precautions and sedativewarning. Verbalizes understanding. --21:15 12/17/20 Elio Connelly:02 12/17/20. The patient is sleeping.RESPIRATORY: No respiratory distress.SKIN: Skin is warm and dry. --04:02 12/18/20 Peggy Chapin R.N.00:02 12/18/20. The patient is resting quietly. Overall patient status is improved. ( Per Provider, let ptsleep. Plan is to re-draw ETOH at 4am to proceed with sending pt to [facility] (which is where pt [...] 12/18/20 Peggy Chapin R.N.( chart faxed to [facility]). --04:40 12/18/20 Peggy Chapin R.N.The patient is sleeping. --04:40 12/18/20 Peggy Chapin R.N. 5 Clinical Report - Nurses [facility] Emergency Department [address] [place] [address] Phone #: ext- [phone] 12/17/2020 17:48 Patient: CAMILO LAWSON Sex: M : 1990 Age: 30y ( Call placed to Stefania at [facility] to confirm receipt of faxed chart. Chart faxed again to [phone] per request.). --04:59 12/18/20 Peggy Chapin R.N. The patient is sleeping. Overall patient status is improved. RESPIRATORY: No respiratory distress. SKIN: Skin is warm and dry. --04:59 12/18/20 Peggy Chapin R.N. ( Call placed to [facility], who verified that they did receive the fax, this time. Awaiting call back.). --05:21 12/18/20 Peggy Chapin R.N. The patient is sleeping. ( Call placed to [facility] Decorating Consultant at [phone]. Stefania states that Dr Sandra has not had a chance to look at the paperwork yet.). --05:55 12/18/20 Peggy Chapin R.N. ( 0615 no changes. Pt sleeping at long periods.). --06:48 12/18/20 Peggy Chapin R.N. ( 0715 pt resting on right side awaiting transfer t [facility], pt stating feeling antsy but feeling a lot better than last night). --07:19 12/18/20 Freddy Blanchard RN.DISPOSITION / DISCHARGE Report was given to a nurse via a phone call. Report was acknowledged. (Phuong Doe RN). --06:29 12/18/20 Peggy Chapin R.N. 06:29 12/18/2020 Site #1 removed upon transfer. --06:29 12/18/20 Peggy Chapin R.N. Condition at departure: stable. Transferred to [facility]. Visit overview, summary of care [...] Blanchard RN. 6 Clinical Report - Nurses [facility] Emergency Department [address] [place] [address] Phone #: ext- [phone] 12/17/2020 17:48 Patient: CAMILO LAWSON Sex: M : 1990 Age: 30yLocked/Released at 12/18/2020 08:38 by Freddy Blanchard RN Name Value Range Interpretation Code Description Data Cecy rce(s) Supporting Document(s) ID Date Data Source [id number] 12/17/2020 05:55:00 PM EST [facility] 1 Clinical Report - Physicians/Mid Levels [facility] Emergency Department [address] [place] [address] Phone #: ext- [phone] 12/17/2020 17:48 Patient: [...] daily. 2 Clinical Report - Physicians/Mid Levels [facility] Emergency Department [address] [place] [address] Phone #: ext- [phone] 12/17/2020 17:48 [id number] Sex[facility] M : 1990 Age: 30y Allergies: [...] :.Laboratory Tests: ETOH: (LULU: 12/18/2020 03:50) ( MsgRcvd 12/18/2020 04:32) Final results Test Result Flag Units (Reference) ALCOHOL 100.0 MG/DL ALCOHOL % 0.10 H % (0.00 - 0.01) *FOR MEDICAL PURPOSES ONLY* Chest Portable 1 View: (LULU: 12/17/2020 20:14) ( MsgRcvd 12/17/2020 23:41) In Progress Exam CHEST PORTABLE [facility] 3 Clinical Report - Physicians/Mid Levels [facility] Emergency Department [address] [place] [address] Phone #: ext- [phone] 12/17/2020 17:48 Patient: CAMILO LAWSON Sex: M : 1990 Age: 30y [address] [place] [address] PHONE: [phone] FAX: [phone] Name .................. : BENJAMÍN Navarro Acct Number.................. : [id number] ROOM. ................. : TR-07 MR Number ................... : [id number] Stay type ............. : E/R Discharge Date......... ... : Admit Date ......... : 12/17/20 Admit Phys .................... : JUDY Cr Date of ....... : 1990 Family Phys ................... : NON STAFF Phone .................. : [phone] Age ................................ : 30 Film# .................. .:[id number] Sex ................................. : M Unsigned transcriptions are preliminary reports and do not represent a medical or legal document CHEST PORTABLE [id number] COMPLETE:12/17/20 20:14 5122 Reason(s): AMS PORTABLE CHEST X-RAY: INDICATION: Altered mental status. FINDINGS: The cardiac and mediastinal silhouettes appear normal and the lungs are clear. The bones and soft tissues are normal. The upper abdomen is unremarkable. IMPRESSION: No acute disease identifiable. Electronically Reviewed and Signed By DCTNAME , SIGNDATE, DEDeangelo Transcribe Initials: FIORELLA , Transcribe Date: 12/17/20 [...] Negat 4 Clinical Report - Physicians/Mid Levels [facility] Emergency Department [address] [place] [address] Phone #: ext- [phone] 12/17/2020 17:48 [id number] Sex: M : 1990 Age: 30y BLOOD [...] Male GFR Interprentation 20-49 yrs >60 mL/min Xancwr22-27 yrs >56 mL/min Normal 60-69 yrs >49 mL/min Normal 70-79yrs>42 mL/min Normal 80 and above >35 mL/min Normal Female GFRInterpretation 20-39 yrs >60 mL/min Normal 40-49 yrs >58 mL/minNormal 50-59 yrs >51 mL/min Normal 60-69 yrs >45 mL/min Rmejrk78-49 yrs >39 mL/min Normal 80 and above [...] 3.40) 5 Clinical Report - Physicians/Mid Levels [facility] Emergency Department [address] [place] [address] Phone #: ext- [phone] 12/17/2020 17:48 Patient: CAMILO LAWSON Sex: M : 1990 Age: 30y #MONO 0.43 10/uL (0.00 - 0.90) #EOS 0.09 10/uL (0.00 - 0.70) #BASO 0.04 10/uL (0.00 - 0.20) #IG 0.04 10/uL ( 0.00 - 0.10) #NRBC 0.00 10/uL (0.00 - 0.00) MANUAL DIFF NOT INDICATED RBC MORPH NOT INDICATEDSalicylate Level: (LULU: 12/17/2020 19:20) ( [facility] 12/17/2020 20:10) Final results Test Result Flag Units (Reference) SALICYLATE <0.3 L mg/dL (2.0 - 20.0)ETOH: (LULU: 12/17/2020 19:20) ( [facility] 12/17/2020 20:10) Final results Test Result Flag Units (Reference) ALCOHOL 265.0 MG/DL ALCOHOL % 0.27 H % (0.00 - 0.01) *FOR MEDICAL PURPOSES ONLY*TSH: (LULU: 12/17/2020 19:20) ( [facility] 12/17/2020 20:23) Final results Test Result Flag Units (Reference) TSH 0.47 uIU/mL (0.47 - 5.01)Drug Screen-Urine: (LULU: 12/17/2020 19:25) ( [facility] 12/17/2020 19:59) Final results Test Result Flag [...] LOT # [id number] 12/17/20.JOVANNA. KIT EXP DATE _[id number] 59/25/21.JOVANNA. NORMAL RANGE IS NOT DETECTEDNEGATIVE RESULTS SHOULD BE TREATEDAS PRESUMPTIVE AND, IF INCONSISTENT WITHCLINICAL SIGNS AND SYMPTOMS OR NECESSARY FOR PATIENT MANAGEMENT, SHOULDBETESTED WITH DIFFERENT AUTHORIZED OR CLEARED MOLECULAR TESTS. NEGATIVE RESULTSDO NOT PRECLUDE [id number] AND SHOULD NOT BE USED THE SOLE BASISFOR PATIENT MANAGEMENT DECISIONS. 6 Clinical Report - Physicians/Mid Levels [facility] Emergency Department [address] [place] [address] Phone #: ext- [phone] 12/17/2020 17:48 Patient: CAMILO LAWSON Sex: M : 1990 Age: 30y.PROGRESS AND PROCEDURESCourse of Care: 18:47 12/17/20. Patient ambulatory without difficulty. No obvious injuries. He denies anyself injury. He currently has no complaints. 20:21 12/17/20. Patient is acting erratic. reporting feeling depressed. 06:36 12/18/20. Patient awake and requesting to go to [facility]. "Send me to [facility] or send me home" Patient's case discussed with ED physician at [facility] who is familiar with the patient. Dr. Sandra agrees to accept to patient to the ED. 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, associated with schizophrenia.(Electronically signed by Pedro Rizo 12/18/2020 06:44) Name Value Range Interpretation Code Description Data Cecy rce(s) Supporting Document(s) ID Date Data Source [id number] 12/18/2020 04:31:00 AM EST [facility] Name Value Range Interpretation Code Description Data Cecy rce(s) Supporting Document(s) Ethanol [Moles/volume] in Blood 100.0 MG/DL [facility] ALCOHOL % 0.10 % 0.00 - 0.01 H [facility] *FOR MEDICAL PURPOSES ONLY * ID Date Data Source [id number] 12/17/2020 08:23:00 PM [facility] Name Value Range Interpretation Code Description Data Cecy rce(s) Supporting Document(s) URINALYSIS [facility] akanksha URINALYSIS SOURCE R [facility] COLOR yellow NORMAL: Yellow [facility] CLARITY clear NORMAL: Clear [facility] Specific gravity of Urine by Test strip 1.010 1.001 - 1.030 [facility] pH 7 5 - 9 [facility] Glucose [Mass/volume] in Urine by Test strip NORM NORMAL: Negat [facility] Bilirubin.total [Presence] in Urine by Test strip NEG NORMAL: Negative [facility] Ketones [Presence] in Urine by Test strip NEG NORMAL: Negative [facility] Protein [Mass/volume] in Urine by Test strip NEG NORMAL: Negat [facility] Nitrite [Presence] in Urine by Test strip NEG NORMAL: Negative [facility] BLOOD NEG NORMAL: Negative [facility] Leukocyte esterase [Presence] in Urine by Test strip NEG TRENTON L: Negative [facility] Urobilinogen [Mass/volume] in Urine by Test strip NOR less alida n 1.0 mg/dL [facility] MICROSCOPIC Not Indicate [facility] ID Date Data Source [id number] 12/17/2020 07:58:00 PM EST [facility] Name Value Range Interpretation Code Description Data Cecy rce(s) Supporting Document(s) DRUG SCREEN URINE [facility] URINE DRUG SCREEN Amphetamine [Presence] in Urine by Screen method NEGATIVE NORMAL: N EGATIVE [facility] BARBITURATES NEGATIVE NORMAL: NEGATIVE [facility] BENZO NEGATIVE NORMAL: NEGATIVE [facility] COCAINE NEGATIVE NORMAL: NEGATIVE [facility] Tetrahydrocannabinol [Presence] in Urine NEGATIVE NORMAL: NEGATIVE [facility] OPIATES NEGATIVE NORMAL: NEGATIVE [facility] Phencyclidine [Presence] in Urine by Screen method NEGATIVE NOR MAL: NEGATIVE [facility] \\BLDo\\URINE DRUG SCR EEN INTERPRETATION\\BLDx\\ THE CUTOFFF LEVELS FOR DETECTION ARE FOLLOWS: AMPHETAMINES 1000 ng/ml BARBITUARATES 200 ng/ml BENZODIAZEPINES 100 ng/ml THC 50 ng/ml PHENCYCLIDINE 25 ng/ml OPIATES 300 ng/ml COCAINE 300 ng/ml ALL POSITIVES ARE CONSIDERED PRESUMPTIVE POSITIVE CONFIRMATION WILL BE PERFORMED AT PHYSICIAN REQUEST. ID Date Data Source [id number] 12/17/2020 07:20:00 PM [facility] Name Value Range Interpretation Code Description Data Cecy rce(s) Supporting Document(s) COVID19 Case rprt NOT DETECTED [facility] This lab was ordered by [facility] and reported by [facility]. ID Date Data Source [id number] 12/17/2020 08:23:00 PM [facility] Name Value Range Interpretation Code Description Data Cecy rce(s) Supporting Document(s) Thyrotropin [Units/volume] in Serum or Plasma by Detec tion limit <= 0.05 mIU/L 0.47 uIU/mL 0.47 - 5.01 [facility] ID Date Data Source [id number] 12/17/2020 08:10:00 PM [facility] Name Value Range Interpretation Code Description Data Cecy rce(s) Supporting Document(s) Ethanol [Moles/volume] in Blood 265.0 MG/DL [facility] ALCOHOL % 0.27 % 0.00 - 0.01 H [facility] ital *FOR MEDICAL PURPOSES ONLY * ID Date Data Source [id number] 12/17/2020 08:10:00 PM [facility] Name Value Range Interpretation Code Description Data Cecy rce(s) Supporting Document(s) BASIC METABOLIC PANEL [facility] BASIC METABOLIC PANEL Sodium [Moles/volume] in Serum or Plasma 142 mEq/L 134 - 153 [facility] Potassium [Moles/volume] in Serum or Plasma 3.3 mEq/L 3.6 - 5.0 L [facility] Chloride [Moles/volume] in Serum or Plasma 104 mEq/L 98 - 107 [facility] Carbon dioxide, total [Moles/volume] in Serum or Plasma 28 MEQ/L 22 - 30 [facility] Glucose [Mass/volume] in Serum or Plasma 91 MG/DL 70 - 99 [facility] BUN 5 MG/DL 7 - 21 L [facility] al Creatinine [Mass/volume] in Serum or Plasma 0.6 MG/DL 0.7 - 1.5 L [facility] BUN/CREAT 8 8 - 27 [facility] Calcium [Mass/volume] in Serum or Plasma 9.0 MG/DL 8.4 - 10.2 [facility] Anion gap 3 in Serum or Plasma 10.0 mmol/L 8.0 - 16.0 [facility] AGE 30 yrs [facility] al AFR AMER GFR >60 mL/min [facility] NON-AA GFR >60 mL/min [facility] ital Male GFR Inter prentation 20-49 yrs [...] >32 mL/min Normal ID Date Data Source [id number] 12/17/2020 08:10:00 PM EST [facility] Name Value Range Interpretation Code Description Data Cecy rce(s) Supporting Document(s) SALICYLATE <0.3 mg/dL 2.0 - 20.0 L [facility] ID Date Data Source [id number] 12/17/2020 08:10:00 PM [facility] Name Value Range Interpretation Code Description Data [facility] rce(s) Supporting Document(s) Acetaminophen [Presence] in Urine <5.0 UG/ML 0.0 - 30.0 [facility] ID Date Data Source [id number] 12/17/2020 07:48:00 PM [facility] NOT DETECTEDNOT DETECTED{ PROC EDURAL CONTROL VALID KIT LOT # [id number] 12/17/20.JOVANNA. KIT EXP DATE _[id number] 12/17/20.JOVANNA. NORMAL RANGE IS NOT DETECTEDNEGATIVE RESULTS [...] rce(s) Supporting Document(s) ID Date Data Source [id number] 12/17/2020 07:34:00 PM [facility] Name Value Range Interpretation Code Description Data [facility] rce(s) Supporting Document(s) CBC W/AUTOMATED DIFF [facility] COMPLETE BLOOD COUNT Leukocytes [#/volume] in Blood by Automated count 5.9 10^3/uL 4.2 - 1 1.0 [facility] Erythrocytes [#/volume] in Blood by Automated count 5.71 10^6/uL 4. 50 - 6.30 [facility] Hemoglobin [Mass/volume] in Blood 18.0 g/dL 14.0 - 16.0 H [facility] Hematocrit [Volume Fraction] of Blood by Automated count 50.9 % 4 1.0 - 51.0 [facility] Erythrocyte mean corpuscular volume [Entitic volume] by Auto mated count 89.1 fL 80.0 - 94.0 [facility] Erythrocyte mean corpuscular hemoglobin [Entitic mass] by Automated count 31.5 pg 27.0 - 34.0 [facility] Erythrocyte mean corpuscular hemoglobin concentration [Mass/volume] by Automated count 35.4 g/dL 31.0 - 36.0 [facility] Erythrocyte distribution width [Ratio] by Automated count 12.6 % 11.5 - 14.8 [facility] Platelets [#/volume] in Blood by Automated count 304 10^3/uL 150 - 45 0 [facility] Platelet mean volume [Entitic volume] in Blood by Automated count 9.2 fL 7.4 - 10.4 [facility] Neutrophils/100 leukocytes in Blood by Automated count 46.7 % 37. 0 - 80.0 [facility] Lymphocytes/100 leukocytes in Blood by Manual count 43.1 % 25.0 - 40.0 H [facility] Monocytes/100 leukocytes in Blood by Automated count 7.3 % 3.0 - 8.0 [facility] Eosinophils/100 leukocytes in Blood by Automated count 1.5 % 0.0 - 7.0 [facility] Basophils/100 leukocytes in Blood by Automated count 0.7 % 0.0 - 2.0 [facility] %IG 0.7 % 0.0 - 0.0 H [facility] %NRBC 0.0 % 0.0 - 0.0 [facility] al Neutrophils [#/volume] in Blood by Automated count 2.75 10^3/uL 2.00 - 6.90 [facility] Lymphocytes [#/volume] in Blood by Automated count 2.54 10^3/uL 0.60 - 3.40 [facility] Monocytes [#/volume] in Blood by Automated count 0.43 10^3/uL 0.00 - 0.90 [facility] Eosinophils [#/volume] in Blood by Automated count 0.09 10^3/uL 0.00 - 0.70 [facility] Basophils [#/volume] in Blood by Automated count 0.04 10^3/uL 0.00 - 0.20 [facility] #IG 0.04 10^3/uL 0.00 - 0.10 [facility] ospital #NRBC 0.00 10^3/uL 0.00 - 0.00 [facility] ospital MANUAL DIFF NOT INDICATED [facility] RBC MORPH NOT INDICATED [facility] spital ID Date Data Source [id number] 11/19/2020 06:01:00 [place] [address] RESPIRATORY CARE REPORT ==== ---------NAME------- NUMBER SEX AGE ADMIT DISC. XRAY# F/C TYPEBENJAMÍN Navarro [id number] M 30 11/17/20 11/18/20 [id number] XBE E/R DATE OF : 1990 M/R# [id number] #: [phone] TR-03 LOCATION: EMERGENCY DEPT EKG 53390 COMP LETE:11/18/20 01:52 [place] [id number] PHYSICIAN: JUDY Cr Name Value Range Interpretation Code Description Data Cecy rce(s) Supporting Document(s) ID Date Data Source [id number] 11/17/2020 10:05:00 PM EST [facility] 1 OrderSheet [facility] Emergency Department [address] [place] [address] Phone #: ext- [phone] 11/17/2020 22:04 Patient: CAMILO LAWSON Sex: M : 1990 Age: 30yWEIGHT:83.9 kg HEIGHT:70 inches BMI:26.5ALLERGIES: No Known Drug AllergyCHIEF COMPLAINT: depressed, anxious, agitated, angryDIAGNOSIS: Depressive disorder, Bipolar disorderLAB ORDERSOrder Description Priority Entered Acknowledged [facility] 22:11/17/2020 22:32 Judy Dorado Jack ; Shweta MayerCMP STAT 22:25 11/17/2020 22:32 Judy Dorado Jack ; Shweta MayerTSH STAT 22:25 11/17/2020 22:32 Judy Dorado Jack ; Shweta MayerAcetaminophen STAT 22:25 11/17/2020 22:32 Lexi Dorado Jack [...] Priority Entered Acknowledged InitialedMEDICATION/IV/DRIP/FLUID ORDERS 2 OrderSheet [facility] Emergency Department [address] [place] [address] Phone #: ext- [phone] 11/17/2020 22:04 Patient: [...] Name Value Range Interpretation Code Description Data [facility] rce(s) Supporting Document(s) ID Date Data Source [id number] 11/17/2020 10:05:00 PM [facility] 1 Medication Reconciliation Report [facility] Emergency Department [address] [place] [address] Phone #: ext [phone] 11/17/2020 22:04 Patient: CAMILO LAWSON Sex: M [...] Name Value Range Interpretation Code Description Data [facility] rce(s) Supporting Document(s) ID Date Data Source [id number] 11/17/2020 10:05:00 PM [facility] 1 Medication Administration Record [facility] Emergency Department [address] [place] [address] Phone #: [phone] 11/17/2020 22:04 Patient: CAMILO LAWSON Sex: M : 1990 Age: 30yWeight: 83.9 kgHeight/Length: 70 inBMI: 26.5ALLERGIES: No Known Drug Allergy Date/Time Medication Administered Medication OrderedGiven ACETAMINOPHEN [PO] Acetaminophen PO 1000 mg03:27 11/18/2020 Dose: 1000 mg Tablets PO (NOW x1)Shweta Dorado R.N. Name Value Range Interpretation Code Description Data Cecy rce(s) Supporting Document(s) ID Date Data Source [id number] 11/17/2020 10:05:00 PM [facility] 1 General Instructions [facility] Emergency Department [address] [place] [address] Phone #: ext- [phone] 11/17/2020 22:04 Patient: CAMILO LAWSON Sex: M : 1990 Age: 30yAcute bipolar disorder with the current episode being severely manic without psychosis.Recurrent moderate major depressive disorder without psychosis.(Electronically signed by Pedro Rizo 11/18/2020 05:29) Name Value Range Interpretation Code Description Data [facility]y [facility] sault(s) Supporting Document(s) ID Date Data Source [id number] 11/17/2020 10:05:00 PM [facility] 1 Clinical Report - Nurses [facility] Emergency Department [address] [place] [address] Phone #: ext- [phone] 11/17/2020 22:04 Patient: CAMILO LAWSON Sex: M : 1990 Age: 30yTRIAGEArrived by EMS. Historian: patient. ( Patient reports feeling anxious and being depressed today. Deniesany ETOH today, did some marijuana this morning. Patient has a history anxiety/depression. States that 3days ago had a psuedoseizure and was evaluated at [facility]. Denies any SI.).Triage time: 22:03 11/17/2020. Acuity: LEVEL 4.Chief Complaint: ANXIETY.Alert. No acute distress.Onset: today. He has had anxiety and describes feelings of depression. ( Patient keeps repeating thathe hates his family, "I could careless if they of covid", "I wish I never met them".).Treatment BILLET SHEARER:None. --22:15 11/17/20 Shweta Dorado R.N.22:08 11/17/20. BP: [...] "Do you 2 Clinical Report - Nurses [facility] Emergency Department [address] [place] [address] Phone #: ext- [phone] 11/17/2020 22:04 Patient: CAMILO LAWSON Sex: M [...] this time to come back in the [facility] and wait for transfer to another facility. Patient is c ooperative at this time.). --01:13 11/18/20 Shweta Dorado R.N. ( Patient is sleeping at this time.). --01:51 11/18/20 Shweta Dorado R.N. Patient waiting for disposition. ( Patient updated on plan of care, information has been faxed to [facility] for review. Patient is cooperative at this time. Patient keeps stating that he hates technology, "Some day there will be a war on technology".). --02:17 11/18/20 Shweta Dorado R.N. 02:16 11/18/20. BP: 133/89. HR: 98. RR: 16. O2 saturation: 98%. Temp: 98.8 F. Pain level now 0/10. --02:17 11/18/20 Shweat Dorado R.N. The plan of care for this patient has been created. Reassurance given. ( Patient states that he has a dent in his forehead where his metal plate is and it is bothering him, explained to patient that I will make 3 Clinical Report - Nurses [facility] Emergency Department [address] [place] [address] Phone #: ext- [phone] 11/17/2020 22:04 Patient: CAMILO LAWSON Sex: M : 1990 Age: 30y MD aware.). Call light placed in reach. --03:12 11/18/20 Jordin Hitchcock 03:27 11/18/2020 Acetaminophen PO Tablets 1000 mg given. Allergies verified. Information reviewed with patient. --03:27 11/18/20 Shweta Dorado R.N. ( Attempted to call [facility] regarding transfer.). --04:45 11/18/20 Shweta Dorado R.N.DISPOSITION / DISCHARGE Departure time: 05:37 11/18/2020. Condition at departure: unchanged. Transferred to [facility]. Visit overview, summary of care [...] rce(s) Supporting Document(s) ID Date Data Source [id number] 11/17/2020 10:05:00 PM EST [facility] 1 Clinical Report - Physicians/Mid Levels [facility] Emergency Department [address] [place] [address] Phone #: ext- [phone] 11/17/2020 22:04 Patient: [...] Surgery. 2 Clinical Report - Physicians/Mid Levels [facility] Emergency Department [address] [place] [address] Phone #: ext- [phone] 11/17/2020 22:04 [id number] Sex: M : 1990 Age: 30y Medications: [...] PROCEDURAL CONTROL VALID KIT LOT # _[id number] 11/18/20.AB . KIT EXP DATE _00-06-68 11/18/20.AB . NORMAL RANGE IS NOT DETECTEDNEGATIVE RESULTS [...] DIFF 3 Clinical Report - Physicians/Mid Levels [facility] Emergency Department [address] [place] [address] Phone #: ext- [phone] 11/17/2020 22:04 Patient: [...] Male GFR Interprentation 20-49 yrs >60 mL/min Vahpih76-59 yrs >56 mL/min Normal 60-69 yrs >49 mL/min Normal 70-79yrs>42 mL/min Normal 80 and above >35 mL/min Normal Female GFRInterpretation 20-39 yrs >60 mL/min Normal 40-49 yrs >58 mL/minNormal 50-59 yrs >51 mL/min Normal 60-69 yrs >45 mL/min Yrvcyt23-34 yrs >39 mL/min Normal 80 and above >32 mL/min Normal 4 Clinical Report - Physicians/Mid Levels [facility] Emergency Department [address] [place] [address] Phone #: ext- [phone] 11/17/2020 22:04 Patient: [...] He is requesting to speak with health care social worker/psychiatrist. 00:26 11/18/20. Patient informed that he is waiting for remainder of results and then his case will be brought to [facility]'s attention for psych evaluation. 00:49 11/18/20. Patient agreed to return back to ED. 30 mins ago he decided to leave the ED because he was tired of waiting. Patient is medically cleared. 5 Clinical Report - Physicians/Mid Levels [facility] Emergency Department [address] [place] [address] Phone #: ext- [phone] 11/17/2020 22:04 Patient: CAMILO LAWSON Sex: M : 1990 Age: 30y 05:26 11/18/20. Patient accepted to [facility]. Dr. Villagomez is the accepting physician. Disposition: Benefits, risks and alternatives to transfer explained to patient. Transferred to [facility]. Summary of care (CCDA) pro vided to transfer facility.CLINICAL IMPRESSION Acute bipolar disorder with the current episode being severely manic without psychosis. Recurrent moderate major depressive disorder without psychosis.(Electronically signed by Pedro Rizo 11/18/2020 05:29) Name Value Range Interpretation Code Description Data [facility] rce(s) Supporting Document(s) ID Date Data Source [id number] 11/17/2020 10:05:00 PM [facility] Addenda CAMILO Foote VisitID: [id number] Date: 2:39Faxed chart to [facility] for psych review at 0130(Electronically signed by Justin Maldonado - 11/18/2020 2:39) Name Value Range Interpretation Code Description Data [facility] rce(s) Supporting Document(s) ID Date Data Source [id number] 11/18/2020 12:39:00 AM [facility] NOT DETECTEDNOT DETECTED{ PROC EDURAL CONTROL VALID KIT LOT # _[id number] 11/18/20.0039.AB . KIT EXP DATE _09-26-57 11/18/20.0039.AB . NORMAL RANGE IS NOT DETECTEDNEGATIVE RESULTS SHOULD BE TREATED PRESUMPTIVE AND, IF INCONSISTENT WITHCLINICAL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 1990 Age: 29yWEIGHT:82.8 kg (M) HEIGHT:70 inches (S) BMI:26.2ALLERGIES: No Known Drug AllergyCHIEF COMPLAINT: anxious, agitatedDIAGNOSIS: SchizophreniaLAB ORDERSOrder Description Priority Entered Acknowledged InitialedUrinalysis (Clean STAT 00:37 08/29/2020 Ack'd: 01:42 01:43 Matthew Barry) Carito William RBrittNBritt Physician; R.N. Reason for ordering with alerts: Benefits outweigh risks -- 00:37 08/29/2020 Prudencio Bowser Drug Screen STAT 00:37 08/29/2020 A ck'd: [...] outweigh risks -- 00:37 08/29/2020 2 OrderSheet [facility] Emergency Department [address] [place] [address] Phone #: ext- [phone] 08/29/2020 00:12 Patient: [...] Benefits outweigh risks -- 00:37 08/29/2020 Prudencio Curz PhysicianGENERAL ORDERSOrder Description Priority Entered Acknowledged InitialedSaline Lock 00:37 08/29/2020 Cancelled: Physician Order 01:42 Carito William R.N. Physician; Reason for ordering with alerts: Benefits outweigh risks -- 00:37 08/29/2020 Prudencio Cruz PhysicianEKG 00:37 08/29/2020 01:21 Prudencio Barry R.N. 3 OrderSheet [facility] Emergency Department [address] [place] [address] Phone #: ext- [phone] 08/29/2020 00:12 Patient: [...] rce(s) Supporting Document(s) ID Date Data Source [id number] 08/29/2020 12:13:00 AM [facility] 1 Medication Reconciliation Report [facility] Emergency Department [address] [place] [address] Phone #: ext- [phone] 08/29/2020 00:12 Patient: CAMILO LAWSON Sex: M [...] rce(s) Supporting Document(s) ID Date Data Source [id number] 08/29/2020 12:13:00 AM [facility] 1 Medication Administration Record [facility] Emergency Department [address] [place] [address] Phone #: ext- [phone] 08/29/2020 00:12 Patient: CAMILO LAWSON Sex: M [...] rce(s) Supporting Document(s) ID Date Data Source [id number] 08/29/2020 12:13:00 AM EST [facility] 1 General Instructions [facility] Emergency Department [address] [place] [address] Phone #: ext- [phone] 08/29/2020 00:12 Patient: [...] yourself at most times 2 General Instructions [facility] Emergency Department [address] [place] [address] Phone #: ext- [phone] 08/29/2020 00:12 Patient: [...] providers about all of the prescription medicines, bmlb-fvb-salsreg medicines, vitamins, and supplements you take. Certain [...] operates a toll-free ADA information line at: [phone] (Voice); or [phone] (TTY). They can help you locate a local office.Follow-up careFollow up with your healthcare provider, or as advised.Call [phone] if any of these occur: You have suicidal thoughts, a suicide plan, and the means to carry out the plan Trouble breathing 3 General Instructions [facility] Emergency Department [address] [place] [address] Phone #: ext- [phone] 08/29/2020 00:12 Patient: [...] who have expressed concern over your behavior [phone] [employer]. [address] [place] [address], [place] [address]. All rights reserved. This information is not intended as asubstitute for professional medical care. Always follow your healthcare professional's instructions. 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 --00:22 08/29/20 Carito Barry R.NBritt00:14 08/29/20. BP: 140/91. MAP: 107. HR: 62. RR: 16. O2 saturation: 96% on room air. Temp: 97.9 F.Pain level now: 03/01. --00:22 08/29/20 Carito Barry R.N.Weight: 82.8 kg measured. Height/Length: 70 inches Per Patient. BMI: 26.2. --00:17 08/29/20 Carito Barry R.N.MedicationsSEROquel Oral (Tablet 300 mg) 1/2 tablet, daily at bedtime. --00:20 08/29/20 Carito Barry R.N.AllergiesNo Known Drug Allergy. --00:08/29/20 Carito Barry R.N.PROBLEMS:Insomnia: Chronic. --00:08/29/20 Carito Barry R.N.[place] disorder.Lifestyle / Substance Problems.Bipolar Disorder.Anxiety Reaction.ADHD - Attention Deficit Hyperactivity Disorder.Neurological Disease.Tension-Type Headache.Seizure Disorder.Seizure.STD - Sexually Transmitted Disease.Tendonitis.Tbi. 2 Clinical Report - Nurses [facility] Emergency Department [address] [place] [address] Phone #: ext- [phone] 08/29/2020 00:12 [id number] Sex: M : 1990 Age: 29yObsessive Compulsive [...] integrity risk 3 Clinical Report - Nurses [facility] Emergency Department [address] [place] [address] Phone #: ext- [phone] 08/29/2020 00:12 Patient: [...] Patient verbalized understanding. Written instructions provided in Latvian. The patient was discharged home. He left ambulatory and via taxi. 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 --03:44 08/29/20 Carito Barry R.N. 4 Clinical Report - Nurses [facility] Emergency Department [address] [place] [address] Phone #: ext- [phone] 08/29/2020 00:12 Patient: [...] rce(s) Supporting Document(s) ID Date Data Source [id number] 08/29/2020 12:13:00 AM EST [facility] 1 Clinical Report - Physicians/Mid Levels [facility] Emergency Department [address] [place] [address] Phone #: ext- [phone] 08/29/2020 00:12 Patient: [...] Abrasions 2 Clinical Report - Physicians/Mid Levels [facility] Emergency Department [address] [place] [address] Phone #: ext- [phone] 08/29/2020 00:12 Patient: CAMILO LAWSON Sex: M [...] ABD //T// PELV W/O ORAL W/O IV [address] [address] ---------N RYANN--------- NUMBER SEX AGE ADMIT DISC. XRAY# F/C TYPE MANTLE CAMILO D [id number] M 29 08/29/20 [id number] NA E/R DATE OF : 1990 M/R# [id number] #: [id number] TR-03 3 Clinical Report - Physicians/Mid Levels [facility] Emergency Department [address] [place] [address] Phone #: ext- [phone] 08/29/2020 00:12 Patient: CAMILO LAWSON Sex: M : 1990 Age: 29y LOCATION: EMERGENCY DEPT TRANSCRIBED: 08/29/20 2:[address] ABD //T// PELV W/O ORAL W/[place] [id number] COMPLETED:08/29/20 2:18 RLB [id number] Reason(s): Trauma/Injury PHYSICIAN: ANTHONY BR = R [...] pathologyevident.IMPRESSION: 4 Clinical Report - Physicians/Mid Levels [facility] Emergency Department [address] [place] [address] Phone #: ext- [phone] 08/29/2020 00:12 Patient: [...] Finalresults Exam CT ST NECK W/O CONTRAST [place] [id number] [place] [address] ---------NAME--------- NUMBER SEX AGE ADMIT DISC. XRAY# F/C TYPE MANTLE CAMILO D [id number] M 29 08/29/20 [id number] NA E/R DATE OF : 1990 M/R# [id number] PH#: [phone] TR-03 LOCATION: EMERGENCY DEPT TRANSCRIBED: 08/29/20 2:[address] NECK W/O CONTRAST [address] COMPLETED:08/29/20 2:18 RLB [id number] Reason(s): Trauma/Injury PHYSICIAN: ANTHONY BR R A [...] gas. 5 Clinical Report - Physicians/Mid Levels [facility] Emergency Department [address] [place] [address] Phone #: ext- [phone] 08/29/2020 00:12 Patient: [...] Final results Exam CT THORAX W/[place] [address] ---------NAME--------- NUMBER SEX AGE ADMIT DISC. XRAY# F/C TYPE BENJAMÍN Navarro [id number] M 29 08/29/20 [id number] NA E/R DATE OF : 1990 M/R# [id number] #: [id number] TR-03 LOCATION: EMERGENCY DEPT TRANSCRIBED: 08/29/20 2:[address] THORAX W/O CONTRAST 607[address] COMPLETED:08/29/20 2:18 RLB [id number] Reason(s): Trauma/Injury PHYSICIAN: ANTHONY GODINEZ R A [...] provided. 6 Clinical Report - Physicians/Mid Levels [facility] Emergency Department [address] [place] [address] Phone #: ext- [phone] 08/29/2020 00:12 [id number] Sex: M : 1990 Age: 29y Findings: [...] NEGAT 7 Clinical Report - Physicians/Mid Levels [facility] Emergency Department [address] [place] [address] Phone #: ext- [phone] 08/29/2020 00:12 Patient: [...] PRESUMPTIVE POSITIVE CONFIRMATION WILL BE PERFORMED AT [facility].CMP: (LULU: 08/29/2020 01:35) ( MsgRcvd [...] Male GFR Interprentation 20-49 yrs >60 mL/min Qtvtie90-67 yrs >56 mL/min Normal 60-69 yrs >49 mL/min Normal 70-79yrs>42 mL/min Normal 80 and above >35 mL/min Normal Female GFRInterpretation 20-39 yrs >60 mL/min Normal 40-49 yrs >58 mL/minNormal 50-59 yrs >51 mL/min Normal 60-69 yrs >45 mL/min Xzgkrk89-11 yrs >39 mL/min Normal 80 and above [...] 8 C linical Report - Physicians/Mid Levels [facility] Emergency Department [address] [place] [address] Phone #: ext- [phone] 08/29/2020 00:12 Patient: [...] NOT INDICATED Lipase: (LULU: 08/29/2020 01:35) ( [facility] 08/29/2020 02:03) Final results Test Result Flag Units (Reference) LIPASE 37 U/L (13 - 60) Lactic Acid: (LULU: 08/29/2020 01:35) ( [facility] 08/29/2020 01:45) Final results Test Result Flag [...] tendencies.). 9 Clinical Report - Physicians/Mid Levels [facility] Emergency Department [address] [place] [address] Phone #: ext- [phone] 08/29/2020 00:12 Patient: [...] rce(s) Supporting Document(s) ID Date Data Source [id number] 08/29/2020 02:56:00 [place] [address] ---------NAME--------- NUMBER SEX AGE ADMIT DISC. XRAY# F/C TYPE BENJAMÍN Navarro [id number] M 29 08/29/20 [id number] NA E/R DATE OF : 1990 M/R# [id number] #: [id number] TR-03 LOCATION: EMERGENCY DEPT TRANSCRIBED: 08/29/20 2:[address] THORAX W/O CONTRAST [address] COMPLETED:08/29/20 2:18 RLB 40672 Reason(s): Trauma/Injury PHYSICIAN: ANTHONY BR R A [...] rce(s) Supporting Document(s) ID Date Data Source [id number] 08/29/2020 02:39:00 AM EST [address] [address] ---------NAME--------- NUMBER SEX AGE ADMIT DISC. XRAY# F/C TYPE MANTLE CAMILO Navarro [id number] M 29 08/29/20 [id number] NA E/R DATE OF : 1990 M/R# [id number] #: [id number] TR-03 LOCATION: EMERGENCY DEPT TRANSCRIBED: 08/29/20 2:[address] ABD //T// PELV W/[place] ORAL W/[place] [address] COMPLETED:08/29/20 2:18 RLB [id number] Reason(s): Trauma/Injury PHYSICIAN: ANTHONY BR======== R A [...] rce(s) Supporting Document(s) ID Date Data Source [id number] 08/29/2020 02:37:00 AM [facility] [address] [place] [address] ---------NAME--------- NUMBER SEX AGE ADMIT DISC. XRAY# F/C TYPE MANTLE CAMILO Navarro [id number] M 29 08/29/20 [id number] NA E/R DATE OF : 1990 M/R# [id number] #: [id number] TR-03 LOCATION: EMERGENCY DEPT TRANSCRIBED: 08/29/20 2:[address] NECK W/O CONTRAST [address] COMPLETED:08/29/20 2:18 RLB [id number] Reason(s): Trauma/Injury PHYSICIAN: ANTHONY BR R A [...] rce(s) Supporting Document(s) ID Date Data Source [id number] 08/29/2020 02:02:00 AM [facility] Name Value Range Interpretation Code Description Data Cecy rce(s) Supporting Document(s) Lipase [Enzymatic activity/volume] in Serum or Plasma 37 U/L 13 - 60 [facility] ID Date Data Source [id number] 08/29/2020 02:02:00 AM [facility] Name Value Range Interpretation Code Description Data Cecy rce(s) Supporting Document(s) COMPREHENSIVE METABOLIC PANEL [facility] COMPREHENSIVE METABOLIC PANEL Sodium [Moles/volume] in Serum or Plasma 136 mEq/L 134 - 153 [facility] Potassium [Moles/volume] in Serum or Plasma 3.8 mEq/L 3.6 - 5.0 [facility] Chloride [Moles/volume] in Serum or Plasma 103 mEq/L 98 - 107 [facility] Carbon dioxide, total [Moles/volume] in Serum or Plasma 26 MEQ/L 22 - 30 [facility] Glucose [Mass/volume] in Serum or Plasma 106 MG/DL 65 - 110 [facility] BUN 14 MG/DL 7 - 21 [facility] Creat[facility] [Mass/volume] in Serum or Plasma 0.6 MG/DL 0.7 - 1.5 L [facility] BUN/CREAT 23 8 - 27 [facility] al Protein [Mass/volume] in Serum or Plasma 6.6 G/DL 6.3 - 8.2 [facility] Albumin [Mass/volume] in Serum or Plasma 4.3 G/DL 3.9 - 5.0 [facility] Globulin [Mass/volume] in Serum by calculation 2.3 GM/DL 2.4 - 3.2 L [facility] A/G RATIO 1.9 0.8 - 2.0 [facility] Calcium [Mass/volume] in Serum or Plasma 9.3 MG/DL 8.4 - 10.2 [facility] Bilirubin.total [Mass/volume] in Serum or Plasma 0.8 MG/DL 0.2 - 1.3 [facility] Alkaline phosphatase [Enzymatic activity/volume] in Serum or Plasma 108 U/L 38 - 126 [facility] Aspartate aminotransferase [Enzymatic activity/volume] in Serum or Plasma 17 U/L 5 - 40 [facility] Alanine aminotransferase [Enzymatic activity/volume] in Seru m or Plasma 18 U/L 7 - 56 [facility] Anion gap 3 in Serum or Plasma 7.0 mmol/L 8.0 - 16.0 L [facility] AGE 29 yrs [facility] al NON-AA GFR >60 mL/min [facility] ital AFR AMER GFR >60 mL/min [facility] Male GFR In terprentation [...] >32 mL/min Normal ID Date Data Source [id number] 08/29/2020 01:45:00 AM [facility] Name Value Range Interpretation Code Description Data Cecy rce(s) Supporting Document(s) Lactate [Moles/volume] in Serum or Plasma 1.0 MMOL/L 0.2 - 2.2 [facility] ID Date Data Source [id number] 08/29/2020 01:42:00 AM [facility] Name Value Range Interpretation Code Description Data Cecy rce(s) Supporting Document(s) CBC W/AUTOMATED DIFF [facility] COMPLETE BLOOD COUNT Leukocytes [#/volume] in Blood by Automated count 8.4 10^3/uL 4.2 - 1 1.0 [facility] Erythrocytes [#/volume] in Blood by Automated count 4.97 10^6/uL 4. 50 - 6.30 [facility] Hemoglobin [Mass/volume] in Blood 15.1 g/dL 14.0 - 16.0 [facility] Hematocrit [Volume Fraction] of Blood by Automated count 43.8 % 4 1.0 - 51.0 [facility] Erythrocyte mean corpuscular volume [Entitic volume] by Auto mated count 88.1 fL 80.0 - 94.0 [facility] Erythrocyte mean corpuscular hemoglobin [Entitic mass] by Automated count 30.4 pg 27.0 - 34.0 [facility] Erythrocyte mean corpuscular hemoglobin concentration [Mass/volume] by Automated count 34.5 g/dL 31.0 - 36.0 [facility] Erythrocyte distribution width [Ratio] by Automated count 12.6 % 11.5 - 14.8 [facility] Platelets [#/volume] in Blood by Automated count 258 10^3/uL 150 - 45 0 [facility] Platelet mean volume [Entitic volume] in Blood by Automated count 9.9 fL 7.4 - 10.4 [facility] Neutrophils/100 leukocytes in Blood by Automated count 59.4 % 37. 0 - 80.0 [facility] Lymphocytes/100 leukocytes in Blood by Manual count 28.6 % 25.0 - 40.0 [facility] Monocytes/100 leukocytes in Blood by Automated count 8.9 % 3.0 - 8.0 H [facility] Eosinophils/100 leukocytes in Blood by Automated count 2.1 % 0.0 - 7.0 [facility] Basophils/100 leukocytes in Blood by Automated count 0.6 % 0.0 - 2.0 [facility] %IG 0.4 % 0.0 - 0.0 [facility] %NRBC 0.0 % 0.0 - 0.0 [facility] al Neutrophils [#/volume] in Blood by Automated count 4.99 10^3/uL 2.00 - 6.90 [facility] Lymphocytes [#/volume] in Blood by Automated count 2.40 10^3/uL 0.60 - 3.40 [facility] Monocytes [#/volume] in Blood by Automated count 0.75 10^3/uL 0.00 - 0.90 [facility] Eosinophils [#/volume] in Blood by Automated count 0.18 10^3/uL 0.00 - 0.70 [facility] Basophils [#/volume] in Blood by Automated count 0.05 10^3/uL 0.00 - 0.20 [facility] #IG 0.03 10^3/uL 0.00 - 0.10 [facility] ospital #NRBC 0.00 10^3/uL 0.00 - 0.00 [facility] MANUAL DIFF NOT INDICATED [facility] RBC MORPH NOT INDICATED [facility] spital ID Date Data Source [id number] 08/29/2020 01:40:00 AM [facility] Name Value Range Interpretation Code Description Data Cecy rce(s) Supporting Document(s) DRUG SCREEN URINE [facility] URINE DRUG SCREEN Amphetamine [Presence] in Urine by Screen method NEGATIVE NORMAL: N EGATIVE [facility] BARBITURATES NEGATIVE NORMAL: NEGATIVE [facility] BENZO NEGATIVE NORMAL: NEGATIVE [facility] COCAINE NEGATIVE NORMAL: NEGATIVE [facility] Tetrahydrocannabinol [Presence] in Urine NEGATIVE NORMAL: NEGATIVE [facility] OPIATES NEGATIVE NORMAL: NEGATIVE [facility] Phencyclidine [Presence] in Urine by Screen method NEGATIVE NOR MAL: NEGATIVE [facility] \\BLDo\\URINE DRUG SCR EEN INTERPRETATION\\BLDx\\ THE CUTOFFF LEVELS FOR DETECTION ARE FOLLOWS: AMPHETAMINES 1000 ng/ml BARBITUARATES 200 ng/ml BENZODIAZEPINES 100 ng/ml THC 50 ng/ml PHENCYCLIDINE 25 ng/ml OPIATES 300 ng/ml COCAINE 300 ng/ml ALL POSITIVES ARE CONSIDERED PRESUMPTIVE POSITIVE CONFIRMATION WILL BE PERFORMED AT PHYSICIAN REQUEST. ID Date Data Source [id number] 08/29/2020 01:25:00 AM [facility] Name Value Range Interpretation Code Description Data Cecy rce(s) Supporting Document(s) URINALYSIS [facility] akanksha URINALYSIS SOURCE R [facility] COLOR yellow NORMAL: Yellow [facility] CLARITY clear NORMAL: Clear [facility] Specific gravity of Urine by Test strip 1.010 1.001 - 1.030 [facility] pH 6.5 5 - 9 [facility] Glucose [Mass/volume] in Urine by Test strip NORM NORMAL: Negat [facility] Bilirubin.total [Presence] in Urine by Test strip NEG NORMAL: Negative [facility] Ketones [Presence] in Urine by Test strip NEG NORMAL: Negative [facility] Protein [Mass/volume] in Urine by Test strip NEG NORMAL: Negat [facility] Nitrite [Presence] in Urine by Test strip NEG NORMAL: Negative [facility] BLOOD NEG NORMAL: Negative [facility] Leukocyte esterase [Presence] in Urine by Test strip NEG [place] L: Negative [facility] Urobilinogen [Mass/volume] in Urine by Test strip NOR less alida n 1.0 mg/dL [facility] MICROSCOPIC Not Indicate [facility] ID Date Data Source [id number] 08/19/2020 01:52:52 PM EDT [facility] Vital SignsBlood Pressure: 138/82 Patient History Medical History:Brain TumorSeizure DisorderDepressionHx of kidney stonesBipolarSurgical History:Partial lobectomyFamily History:No known family historySocial/Personal History: Smoking Status: current some day smokerDo you vape? NoCurrent Problems: Normal examination (ICD-V65.5) (XBT54-J99.1)Dental caries/Impaction of teeth (ICD-521.00) (TLA41-X05.9)Contact dermatitis and other eczema, unspecified cause (ICD-692.9) (DHW80-K48.9)Depression (ICD-311) (CIO70-U52.9)Seizure Disorder (ICD-780.39) (MGP66-Q93.9)Brain Tumor (ICD-191.9) (NOI29-F56.9)Problem list reviewed during this update.Current Medications: SEROQUEL [...] on Tooth # 2 (Performed by Behzad HOWARDKibmerley) T - (D7140) Extraction, erupted tooth or [...] ; yany (Aug 20 2020 7:29AM): [facility]). CC: none. Reviewed Xrays. Exam: caries [...] Known Allergies (updated 08/19/2020) Orders:Oral Surgery Referral [[id number]] Clinical Visit Summary Declined Name Value Range Interpretation Code Description Data Cecy rce(s) Supporting Document(s) ID Date Data Source [id number] 08/14/2020 07:17:00 PM EDT [facility] 1 Medication Reconciliation Report [facility] Emergency Department [address] [place] [address] Phone #: ext- [phone] 08/14/2020 19:09 Patient: [...] Value Range Interpretation Code Description Data Cecy [facility](s) Supporting Document(s) ID Date Data Source [id number] 08/14/2020 07:17:00 PM EDT [facility] 1 Medication Administration Record [facility] Emergency Department [address] [place] [address] Phone #: ext- [phone] 19:09 Patient: CAMILO LAWSON Sex: M : 1990 Age: 29yWeight: 81.6 kgHeight/Length: 72 inBMI: 24.4ALLERGIES: No Known Drug AllergyDate/Time Medication Administered Medication Ordered Name Value Range Interpretation Code Description Data [facility](s) Supporting Document(s) ID Date Data Source [id number] 08/14/2020 07:17:00 PM EDT [facility] 1 General Instructions [facility] Emergency Department [address] [place] [address] Phone #: ext- [phone] 08/14/2020 19:09 Patient: CAMILO LAWSON Sex: M : 1990 Age: 29y Anxiety reaction. No hyperventilation.INSTRUCTIONS Warnings: GENERAL WARNINGS: Return or contact your physician immediately if your condition worsens or changes unexpectedly, if not improving as expected, or if other problems arise. Understanding of the discharge instructions verbalized by patient. Follow-up with: [facility], , , [address], [place], [address] Follow up in one week. Call for [...] may experience: Dry mouth 2 General Instructions [facility] Emergency [facility] [address] [place] [address] Phone #: ext- [phone] 08/14/2020 19:09 Patient: [...] Also, there are certain 3 General Instructions [facility] [address] [place] [address] Phone #: ext- [phone] 08/14/2020 19:09 Patient: [...] andtemporary medicine to help you manage stress.Call [phone] if any of these happen: Trouble breathing [...] and mild pain reliever 4 General Instructions [facility] Emergency Department [address] [place] [address] Phone #: ext- [phone] 08/14/2020 19:09 Patient: CAMILO LAWSON Sex: M : 1990 Age: 29y [id number] [employer] [place] [address]. All rights reserved. This information is not intended as asubstitute for professional medical care. Always follow your healthcare professional's instructions. You have been given the following additional information: Anxiety Reaction(Electronically signed by Pedro Rizo, 08/14/2020 20:15) Name Value Range Interpretation Code Description Data Cecy rce(s) Supporting Document(s) ID Date Data Source [id number] 08/14/2020 07:17:00 PM EDT [facility] 1 Clinical Report - Nurses [facility] Emergency Department [address] [place] [address] Phone #: ext- [phone] 08/14/2020 19:09 Patient: [...] no barriers. 2 Clinical Report - Nurses [facility] Emergency Department [address] [place] [address] Phone #: ext- [phone] 08/14/2020 19:09 Patient: CAMILO LAWSON Sex: M : 1990 Age: 29y FALL RISK ASSESSMENT: Fall risk assessment completed. No risk factors identified. SKIN INTEGRITY ASSESSMENT: Skin integrity risk assessment completed. No skin integrity risk identified. --19:30 08/14/20 Alfonso Buck R.N. FAMILY HX: No significant family medical history. --19:53 08/14/20 Pedro Rizo.PHYSICAL [id number] 08/14/20. Ambulatory to room.GENERAL / NEURO / [...] Patient verbalized understanding. Written instructions provided in Latvian. The patient was discharged home and unaccompanied at time of discharge. He left ambulatory and via taxi. 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 --20:04 08/14/20 Carito Barry R.N. 20:03 08/14/20. BP: 141/93. MAP: 109. HR: 81. RR: 16. O2 saturation: 98%. Temp: 97.9 F. Pain level now: 0/10. --20:04 08/14/20 Carito Barry R.N.Locked/Released at 08/14/2020 20:04 by Carito Barry R.N. Name Value Range Interpretation Code Description Data Cecy rce(s) Supporting Document(s) ID Date Data Source [id number] 08/14/2020 07:17:00 PM EDT [facility] 1 Clinical Report - Physicians/Mid Levels [facility] Emergency Department [address] [place] [address] Phone #: ext- [phone] 08/14/2020 19:09 Patient: CAMILO LAWSON Sex: M [...] alone. 2 Clinical Report - Physicians/Mid Levels [facility] Emergency Department [address] [place] [address] Phone #: ext- [phone] 08/14/2020 19:09 Patient: CAMILO LAWSON Sex: M [...] patient. 3 Clinical Report - Physicians/Mid Levels [facility] Emergency Department [address] [place] [address] Phone #: ext- [phone] 08/14/2020 19:09 Patient: CAMILO LAWSON Sex: M : 1990 Age: 29y Follow-up with: [facility], , , [address] [place], [address] Follow up in one week. Call for an appointment.(Electronically signed by Pedro Rizo, 08/14/2020 20:15) Name Value Range Interpretation Code Description Data Ceyc rce(s) Supporting Document(s) Procedure Social History Code Duration Value Status Description Data Source(s ) Smoking 08/30/2021 12:00:00 AM EST Smoker, current status unkn own completed Smoker, current status unknown [facility] Smoking 07/20/2021 12:00:00 AM EDT Smoker, current status unkn own completed Smoker, current status unknown [facility] Smoking 07/05/2021 12:00:00 AM EDT Smoker, current status unkn own completed Smoker, current status unknown [facility]) Smoking 03/29/2021 12:00:00 AM EDT Smoker, current status unkn own completed Smoker, current status unknown [facility]) Smoking 02/17/2021 12:00:00 AM EDT Smoker, current status unkn own completed Smoker, current status unknown [facility]) Smoking 01/01/2021 12:00:00 AM EST Smoker, current status unkn own completed Smoker, current status unknown [facility]) Smoking 11/17/2020 12:00:00 AM EST Smoker, current status unkn own completed Smoker, current status unknown [facility]) Smoking 11/02/2020 12:00:00 AM EST Smoker, current status unkn own completed Smoker, current status unknown [facility]) Smoking 10/20/2020 12:00:00 AM EST Smoker, current status unkn own completed Smoker, current status unknown [facility]) Smoking 09/24/2020 12:00:00 AM EST Smoker, current status unkn own completed Smoker, current status unknown [facility]) Smoking 09/02/2020 12:00:00 AM EST Smoker, current status unkn own completed Smoker, current status unknown [facility]) Smoking 08/19/2020 12:00:00 AM EDT Smoker, current status unkn own completed Smoker, current status unknown [facility]) Smoking 08/18/2020 12:00:00 AM EDT Smoker, current status unkn own completed Smoker, current status unknown [facility]) Smoking 07/29/2020 12:00:00 AM EDT Smoker, current status unkn own completed Smoker, current status unknown [facility]) Smoking 07/22/2020 12:00:00 AM EDT Smoker, current status unkn own completed Smoker, current status unknown [facility]) Smoking 07/10/2020 12:00:00 AM EDT Smoker, current status unkn own completed Smoker, current status unknown [facility])
[2021-09-08 22:09] VITALS: BP 124/70
== END 2021-09-08 22:10 | disposition home or self-care (01) ==
LOC: M ED 17:53
DX: F43.0 Acute stress reaction (principal); F31.9 Bipolar disorder, unspecified; R56.9 Unspecified convulsions; F90.9 Attention-deficit hyperactivity disorder, unspecified type; F42.9 Obsessive-compulsive disorder, unspecified; Z87.442 Personal history of urinary calculi; Z79.899 Other long term (current) drug therapy

== ENCOUNTER 2021-09-21 17:03 | Emergency (ER) | payer MEDICAID ==
[~2021-09-21] VITALS: Ht 177.8 cm; Wt 87.6 kg
[~2021-09-21 17:03] MED LIST changes: -HALO1TA PO; +HALO1TAB PO; +LEVE500T5
[2021-09-21 17:04] VITALS: BP 169/84
== END 2021-09-21 21:04 | disposition left against medical advice (07) ==
LOC: M ED 17:03
DX: Z53.21 Procedure and treatment not carried out due to patient leaving prior to being seen by health care provider (principal)

== ENCOUNTER 2021-09-21 21:58 | Emergency (ER) | payer MEDICAID ==
[~2021-09-21] VITALS: Ht 182.9 cm; Wt 87.4 kg
[2021-09-22 03:34] VITALS: BP 129/58
== END 2021-09-22 05:45 | disposition left against medical advice (07) ==
LOC: M ED 21:58
DX: Z53.21 Procedure and treatment not carried out due to patient leaving prior to being seen by health care provider (principal)

== ENCOUNTER 2021-09-24 22:22 | Emergency (ER) | payer MEDICAID ==
[~2021-09-24] VITALS: Ht 182.9 cm; Wt 81.8 kg
[~2021-09-24 22:22] MED LIST changes: +HALO1TA PO; -HALO1TAB PO
--- OUTSIDE RECORDS SUMMARY | 2021-09-24 22:30 | CCD ---
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 in Blood by Automated count 10.0 fL 7.4 - 10.4 [facility] Neutrophils/100 leukocytes in Blood by Automated count 89.8 % 37. 0 - 80.0 H [facility] Lymphocytes/100 leukocytes in Blood by Manual count 4.3 % 25.0 - 40.0 L [facility] Monocytes/100 leukocytes in Blood by Automated count 5.0 % 3.0 - 8.0 [facility] Eosinophils/100 leukocytes in Blood by Automated count 0.1 % 0.0 - 7.0 [facility] Basophils/100 leukocytes in Blood by Automated count 0.3 % 0.0 - 2.0 [facility] %IG 0.5 % 0.0 - 0.0 H [facility] al %NRBC 0.0 % 0.0 - 0.0 [facility] al Neutrophils [#/volume] in Blood by Automated count 16.74 10^3/uL 2. 00 - 6.90 H [facility] Lymphocytes [#/volume] in Blood by Automated count 0.81 10^3/uL 0.60 - 3.40 [facility] Monocytes [#/volume] in Blood by Automated count 0.94 10^3/uL 0.00 - 0.90 H [facility] Eosinophils [#/volume] in Blood by Automated count 0.02 10^3/uL 0.00 - 0.70 [facility] Basophils [#/volume] in Blood by Automated count 0.06 10^3/uL 0.00 - 0.20 [facility] #IG 0.10 10^3/uL 0.00 - 0.10 [facility] ospital #NRBC 0.00 10^3/uL 0.00 - 0.00 [facility] MANUAL DIFF NOT INDICATED [facility] RBC MORPH NOT INDICATED [facility] spital ID Date Data Source [id number] 09/04/2021 08:19:00 PM EST [facility] Name Value Range Interpretation Code Description Data Cecy rce(s) Supporting Document(s) COMPREHENSIVE METABOLIC PANEL [facility] COMPREHENSIVE METABOLIC PANEL Sodium [Moles/volume] in Serum or Plasma 139 mEq/L 134 - 153 [facility] Potassium [Moles/volume] in Serum or Plasma 4.1 mEq/L 3.6 - 5.0 [facility] Chloride [Moles/volume] in Serum or Plasma 104 mEq/L 98 - 107 [facility] Carbon dioxide, total [Moles/volume] in Serum or Plasma 23 MEQ/L 22 - 30 [facility] Glucose [Mass/volume] in Serum or Plasma 116 MG/DL 70 - 99 H [facility] BUN 11 MG/DL 7 - 21 [facility] Creatinine [Mass/volume] in Serum or Plasma 0.8 MG/DL 0.7 - 1.5 [facility] BUN/CREAT 14 8 - 27 [facility] Protein [Mass/volume] in Serum or Plasma 6.5 G/DL 6.3 - 8.2 [facility] Albumin [Mass/volume] in Serum or Plasma 4.4 G/DL 3.9 - 5.0 [facility] Globulin [Mass/volume] in Serum by calculation 2.1 GM/DL 2.4 - 3.2 L [facility] A/G RATIO 2.1 0.8 - 2.0 H [facility] al Calcium [Mass/volume] in Serum or Plasma 9.1 MG/DL 8.4 - 10.2 [facility] Bilirubin.total [Mass/volume] in Serum or Plasma <0.7 MG/DL 0.2 - 1.3 [facility] Alkaline phosphatase [Enzymatic activity/volume] in Serum or Plasma 90 U/L 38 - 126 [facility] Aspartate aminotransferase [Enzymatic activity/volume] in Serum or Plasma 29 U/L 5 - 40 [facility] Alanine aminotransferase [Enzymatic activity/volume] in Seru m or Plasma 30 U/L 7 - 56 [facility] Anion gap 3 in Serum or Plasma 12.0 mmol/L 8.0 - 16.0 [facility] AGE 30 yrs [facility] al NON-AA GFR >60 mL/min [facility] ital AFR AMER GFR >60 mL/min [facility] spital Male GFR In terprentation [...] >32 mL/min Normal ID Date Data Source [id number] 09/04/2021 08:11:00 PM EST [facility] Name Value Range Interpretation Code Description Data Cecy rce(s) Supporting Document(s) Ethanol [Moles/volume] in Blood <10.0 MG/DL [facility] ALCOHOL % 0.01 % 0.00 - 0.01 [facility] *FOR MEDICAL PURPOSES ONLY * ID Date Data Source [id number] 09/04/2021 08:11:00 PM EST [facility] Name Value Range Interpretation Code Description Data Cecy rce(s) Supporting Document(s) Magnesium [Mass/volume] in Serum or Plasma 2.0 MG/DL 1.7 - 2.2 [facility] ID Date Data Source [id number] 08/20/2021 03:47:00 PM EDT [facility] Name Value Range Interpretation Code Description Data Cecy rce(s) Supporting Document(s) SARS coronavirus 2 RNA [Presence] in Res piratory specimen by WILLOW with probe detection NEGATIVE [facility] This lab was ordered by [facility] a nd reported by [facility]. ID Date Data Source [id number] 01/02/2021 07:12:00 PM EST [facility] Name Value Range Interpretation Code Description Data Cecy rce(s) Supporting Document(s) SARS coronavirus 2 RNA Not Detected [facility] This lab was ordered by [facility] and reported by [facility]. ID Date Data Source [id number] 12/18/2020 12:37:00 PM [facility] [address] [place] [address] RESPIRATORY CARE REPORT ==== ---------NAME------- NUMBER SEX AGE ADMIT DISC. XRAY# F/C JULIAN Navarro [id number] 30 12/17/20 12/18/20 [id number] XBE E/R DATE OF : 1990 M/R# [id number] #: [id number] TR-07 LOCATION: EMERGENCY DEPT EKG 50299 COMP LETE:12/18/20 03:38 [place] [id number] PHYSICIAN: JUDY Cr Name Value Range Interpretation Code Description Data Cecy rce(s) Supporting Document(s) ID Date Data Source [id number] 12/17/2020 09:54:00 PM EST [facility] [address] [place] [address] PHONE: [phone] FAX: [phone] Name .................. : BENJAMÍN Navarro Acct Number.................. : [id number] ROOM. ................. : TR-07 MR Number ................... : [id number] Stay type ............. : E/R Discharge Date......... ... : Admit Date ......... : 12/17/20 Admit Phys .................... : JUDY Cr Date of ....... : 1990 Family Phys ................... : NON STAFF Phone .................. : [phone] Age ................................ : 30 Film# .................. .:[id number] Sex ................................. : M Unsigned transcriptions are preliminary reports and do not represent a medical or legal document CHEST PORTABLE [id number] COMPLETE:12/17/20 20:14 5122 Reason(s): [facility] PORTABLE CHEST X-RAY: INDICATION: Altered mental status. FINDINGS: The cardiac and mediastinal silhouettes appear normal and the lungs are clear. The bones and soft tissues are normal. The upper abdomen is unremarkable. IMPRESSION: No acute disease identifiable. Electronically Reviewed and Signed By Kevin Ponce M.D. , 12/18/20 10:40, [place] Transcribe Initials: FIORELLA , Transcribe Date: 12/17/20 21:54, Dictation Date: Copy for: EMERGENCY DEPT via modem Copy for: 710 MED REC DISCHARGED Page 1 of 1 Name Value Range Interpretation Code Description Data Cecy rce(s) Supporting Document(s) ID Date Data Source [id number] 12/17/2020 05:55:00 PM EST [facility] 1 OrderSheet [facility] [address] [place] [address] Phone #: ext- [phone] 12/17/2020 17:48 Patient: [...] KatelynUrine Drug Screen STAT 19:23 12/17/2020 19:27 Godwin, Pedro Rizo ; KatelynCOVID-19 CAH (Not STAT 19:23 12/17/2020 19:27 Godwin,Symptomatic as Pedro Rizo ; KatelynDefined by CDC)(12/17/2020) (NotFirst Test) (NotHospitalized) (Not) (NotResident inCongregate CareSetting) (NotEmployed inHealthcare Setting)Urinalysis (Clean STAT 20:00 12/17/2020 20:00 Peggy Rufino) Peggy SifuentesN. R.N.; Per protocol; Alyssa Rizo STAT 03:57 12/18/2020 03:58 Sander Can OrderSheet [facility] Department [address] [place] [address] Phone #: ext- [phone] 12/17/2020 17:48 Patient: [...] 12/17/2020 21:15 Godwin,(NOW x1) Pedro Rizo ; DesinGENERAL ORDERSOrder Description Priority Entered Acknowledged InitialedEKG 20:14 12/17/2020 20:30 Peggy Connelly R.N.; Per protocol; Marcello Rizo[Electronically signed by Pedro Rizo (06:44 12/18/2020)][Electronically signed by Freddy Blanchard RN (08:38 12/18/2020)][Electronically locked by Freddy Blanchard RN (08:38 12/18/2020)] Name Value Range Interpretation Code Description Data [facility](s) Supporting Document(s) ID Date Data Source [id number] 12/17/2020 05:55:00 PM [place] [address] Medication Reconciliation Report [facility] Department [address] [place] [address] Phone #: ext- [phone] 12/17/2020 17:48 Patient: [...] Name Value Range Interpretation Code Description Data [facility](s) Supporting Document(s) ID Date Data Source [id number] 12/17/2020 05:55:00 PM [place] [address] Medication Administration Record [facility] [address] [place] [address] Phone #: ext- [phone] 12/17/2020 17:48 Patient: CAMILO LAWSON Sex: M : 1990 Age: 30yWeight: 87.4 kgHeight/Length: 69 inBMI: 28.5ALLERGIES: None Date/Time Medication Administered Medication OrderedGiven HALDOL [IVP] (HALOPERIDOL Haldol IVP 5 mg (NOW x1)21:15 12/17/2020 LACTATE)Ana Connelly, Dose: 5 mg IVP Site: #1 left Name Value Range Interpretation Code Description Data Cecy rce(s) Supporting Document(s) ID Date Data Source [id number] 12/17/2020 05:55:00 PM [facility] 1 General Instructions [facility] [address] [place] [address] Phone #: ext- [phone] 12/17/2020 17:48 Patient: CAMILO LAWSON Sex: M : 1990 Age: 30yAcute drug induced (alcohol) psychosis with paranoia, associated with schizophrenia.(Electronically signed by Pedro Rizo 12/18/2020 06:44) Name Value Range Interpretation Code Description Data Cecy rce(s) Supporting Document(s) ID Date Data Source [id number] 12/17/2020 05:55:00 PM [facility] 1 Clinical Report - Nurses [facility] Department [address] [place] [address] Phone #: [phone] omf- [phone] 12/17/2020 17:48 Patient: CAMILO LAWSON Sex: M [...] Escalante, LALO. 2 Clinical Report - Nurses [facility] Department [address] [place] [address] Phone #: ext- [phone] 12/17/2020 17:48 Patient: CAMILO LAWSON [facility]#: [id number] Sex: M : 1990 Age: 30y ADDITIONAL [...] treatment room. --18:00 12/17/20 Shila Dorantes R.N.PHYSICAL [id number]:00 12/17/20. To room via stretcher.GENERAL / NEURO / PSYCH: Alert. Oriented X 4. Appears anxious. ( pt swearing yelling at staff).Pupillary exam: Right pupil 2mm and constricted. Left pupil: 2mm and constricted. 3 Clinical Report - Nurses [facility] Department [address] [place] [address] Phone #: ext- [phone] 12/17/2020 17:48 Patient: [...] incident). --18:32 12/17/20 Freddy Blanchard RN ( 1844 pt oob pulling all wires off becoming belligerent , pt put back in bed, pt on cell phone talking to law enforcement 5 minutes later David PALOMARES and [facility] police in ED arrived and talking with [...] 12/17/20 Godwin, Karrie Clinical Report - Nurses [facility] Department [address] [place] [address] Phone #: ext- [phone] 12/17/2020 17:48 Patient: CAMILO LAWSON Sex: M [...] 4am to proceed with sending pt to [facility] (which is where pt wants [...] 12/18/20 Peggy Chapin R.N.( chart faxed to [facility]). --04:40 12/18/20 Peggy Chapin R.N.The patient is sleeping. --04:40 12/18/20 Peggy Chapin R.N. 5 Clinical Report - Nurses [facility] Department [address] [place] [address] Phone #: ext- [phone] 12/17/2020 17:48 Patient: CAMILO LAWSON Sex: M : 1990 Age: 30y ( Call placed to Stefania at [facility] to confirm receipt of faxed chart. Chart faxed again to [phone] per request.). --04:59 12/18/20 Peggy Chapin R.N. The patient is sleeping. Overall patient status is improved. RESPIRATORY: No respiratory distress. SKIN: Skin is warm and dry. --04:59 12/18/20 Peggy Chapin R.N. ( Call placed to [facility], who verified that they did receive the fax, this time. Awaiting call back.). --05:21 12/18/20 Peggy Chapin R.N. The patient is sleeping. ( Call placed to [facility] Board Certified Orthodontist at [phone]. Stefania states that Dr Sandra has not had a chance to look at the paperwork yet.). --05:55 12/18/20 Peggy Chapin R.N. ( 0615 no changes. Pt sleeping at long periods.). --06:48 12/18/20 Peggy Chapin R.N. ( 0715 pt resting on right side awaiting transfer t [facility], pt stating feeling antsy but feeling a lot better than last night). --07:19 12/18/20 Freddy Blanchard RN.DISPOSITION / DISCHARGE Report was given to a nurse via a phone call. Report was acknowledged. (Phuong Doe RN). --06:29 12/18/20 Peggy Chapin R.N. 06:29 12/18/2020 Site #1 removed upon transfer. --06:29 12/18/20 Peggy Chapin R.N. Condition at departure: stable. Transferred to [facility]. Visit overview, summary of care (CCDA), [...] Blanchard RN. 6 Clinical Report - Nurses [facility] Department [address] [place] [address] Phone #: ext- [phone] 12/17/2020 17:48 Patient: CAMILO LAWSON Sex: M : 1990 Age: 30yLocked/Released at 12/18/2020 08:38 by Freddy Blanchard RN Name Value Range Interpretation Code Description Data Cecy rce(s) Supporting Document(s) ID Date Data Source [id number] 12/17/2020 05:55:00 PM EST [facility] 1 Clinical Report - Physicians/Mid Levels [facility] Department [address] [place] [address] Phone #: ext- [phone] 12/17/2020 17:48 Patient: CAMILO LAWSON [id number] Sex: M : 1990 Age: 30y Time [...] daily. 2 Clinical Report - Physicians/Mid Levels [facility] Department [address] [place] [address] Phone #: ext- [phone] 12/17/2020 17:48 Patient: CAMILO LAWSON [facility] [id number] Sex: M : 1990 Age: 30y Allergies: [...] 12/17/2020 23:41) In Progress Exam CHEST PORTABLE [facility] 3 Clinical Report - Physicians/Mid Levels [facility] Department [address] [place] [address] Phone #: ext [phone] 12/17/2020 17:48 Patient: CAMILO LAWSON Sex: M : 1990 Age: 30y [address] [place] [address] PHONE: [phone] FAX: [phone] Name .................. : BENJAMÍN Navarro Acct Number.................. : [id number] ROOM. ................. : TR-07 MR Number ................... : [id number] Stay type ............. : E/R Discharge Date......... ... : Admit Date ......... : 12/17/20 Admit Phys .................... : JUDY Cr Date of ....... : 1990 Family Phys ................... : NON STAFF Phone .................. : [phone] Age ................................ : 30 Film# .................. .:[id number] Sex ................................. : M Unsigned transcriptions are preliminary reports and do not represent a medical or legal document CHEST PORTABLE [id number] COMPLETE:12/17/20 20:14 5122 Reason(s): AMS PORTABLE CHEST [...] Negat 4 Clinical Report - Physicians/Mid Levels [facility] Department [address] [place] [address] Phone #: [phone] ext- [phone] 12/17/2020 17:48 Patient: CAMILO LAWSON Sex: M : 1990 Age: 30y BLOOD NEG (NORMAL: Negat LEUK EST NEG (NORMAL: Negat UROBILINOGEN NOR (less than 1.0 MICROSCOPIC Not IndicateAcetaminophen Level: (LULU: 12/17/2020 19:20) ( [facility] 12/17/2020 20:10) Final results Test Result Flag [...] Male GFR Interprentation 20-49 yrs >60 mL/min Qqnpvi47-89 yrs >56 mL/min Normal 60-69 yrs >49 mL/min Normal 70-79yrs>42 mL/min Normal 80 and above >35 mL/min Normal Female GFRInterpretation 20-39 yrs >60 mL/min Normal 40-49 yrs >58 mL/minNormal 50-59 yrs >51 mL/min Normal 60-69 yrs >45 mL/min Tpentw48-40 yrs >39 mL/min Normal 80 and above >32 mL/min NormalCBC w Diff: (LULU: 12/17/2020 19:20) ( [facility] 12/17/[facility] 19:34) Final results Test Result Flag [...] 3.40) 5 Clinical Report - Physicians/Mid Levels [facility] Department [address] [place] [address] Phone #: ext- [phone] 12/17/2020 17:48 Patient: CAMILO LAWSON Sex: M : 1990 Age: 30y #MONO 0.43 10/uL (0.00 - 0.90) #EOS 0.09 10/uL (0.00 - 0.70) #BASO 0.04 10/uL (0.00 - 0.20) #IG 0.04 10/uL ( 0.00 - 0.10) #NRBC 0.00 10/uL (0.00 - 0.00) MANUAL DIFF NOT INDICATED RBC MORPH NOT INDICATEDSalicylate Level: (LULU: 12/17/2020 19:20) ( [facility] 12/17/2020 20:10) Final results Test Result Flag Units (Reference) SALICYLATE <0.3 L mg/dL (2.0 - 20.0)ETOH: (LULU: 12/17/2020 19:20) ( [facility] 12/17/2020 20:10) Final results Test Result Flag Units (Reference) ALCOHOL 265.0 MG/DL ALCOHOL % 0.27 H % (0.00 - 0.01) *FOR MEDICAL PURPOSES ONLY*TSH: (LULU: 12/17/2020 19:20) ( [facility] 12/17/2020 20:23) Final results Test Result Flag Units (Reference) TSH 0.47 uIU/mL (0.47 - 5.01)Drug Screen-Urine: (LULU: 12/17/2020 19:25) ( [facility] 12/17/2020 19:59) Final results Test Result Flag [...] PRESUMPTIVE POSITIVE CONFIRMATION WILL BE PERFORMED AT [facility].COVID-19 CAH: (LULU: 12/17/2020 19:20) ( [facility] 12/17/2020 19:49) Final results Test Result Flag Units (Reference) COVID-19 NOT DETECTED COVID-19 REENTER NOT DETECTED { PROCEDURAL CONTROL VALID KIT LOT # [id number] 12/17/20.1947.JOVANNA. KIT EXP DATE _[id number] 51/25/21.JOVANNA. NORMAL RANGE IS NOT DETECTEDNEGATIVE RESULTS SHOULD BE TREATEDAS PRESUMPTIVE AND, IF INCONSISTENT WITHCLINICAL SIGNS AND SYMPTOMS OR NECESSARY FOR PATIENT MANAGEMENT, SHOULDBETESTED WITH DIFFERENT AUTHORIZED OR CLEARED MOLECULAR TESTS. NEGATIVE RESULTSDO NOT PRECLUDE [id number] AND SHOULD NOT BE USED THE SOLE BASISFOR PATIENT MANAGEMENT DECISIONS. 6 Clinical Report - Physicians/Mid Levels [facility] Emergency Department [address] [place] [address] Phone #: ext- [phone] 12/17/2020 17:48 Patient: CAMILO LAWSON Sex: M : 1990 Age: 30y.PROGRESS AND PROCEDURESCourse of Care: 18:47 12/17/20. Patient ambulatory without difficulty. No obvious injuries. He denies anyself injury. He currently has no complaints. 20:21 12/17/20. Patient is acting erratic. reporting feeling depressed. 06:36 12/18/20. Patient awake and requesting to go to [facility]. "Send me to [facility] or send me home" Patient's case discussed with ED physician at [facility] who is familiar with the patient. Dr. Sandra agrees to accept to patient to the ED. Disposition: Transferred to 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, associated with schizophrenia.(Electronically signed by Pedro Rizo 12/18/2020 06:44) Name Value Range Interpretation Code Description Data Cecy rce(s) Supporting Document(s) ID Date Data Source [id number] 12/18/2020 04:31:00 AM EST [facility] Name Value Range Interpretation Code Description Data Cecy rce(s) Supporting Document(s) Ethanol [Moles/volume] in Blood 100.0 MG/DL [facility] ALCOHOL % 0.10 % 0.00 - 0.01 [facility] *FOR MEDICAL PURPOSES ONLY * ID Date Data Source [id number] 12/17/2020 08:23:00 PM EST [facility] Name Value Range Interpretation Code Description Data Cecy rce(s) Supporting Document(s) [facility] ak[facility] URINALYSIS SOURCE R [facility] al COLOR yellow NORMAL: Yellow [facility] ospital CLARITY clear NORMAL: Clear [facility] spital Specific gravity of Urine by Test strip 1.010 1.001 - 1.030 [facility] pH 7 5 - 9 [facility] Glucose [Mass/volume] in Urine by Test strip NORM [facility] Bil[facility].total [Presence] in Urine by Test strip NEG NORMAL: Negative [facility] Ketones [Presence] in Urine by Test strip NEG NORMAL: Negative [facility] Protein [Mass/volume] in Urine by Test strip NEG NORMAL: [facility] Nitrite [Presence] in Urine by Test strip NEG NORMAL: Negative [facility] BLOOD NEG NORMAL: Negative [facility] Leukocyte esterase [Presence] in Urine by Test strip NEG [place] L: Negative [facility] Urobilinogen [Mass/volume] in Urine by Test strip NOR less alida n 1.0 mg/dL [facility] MICROSCOPIC Not Indicate [facility] ID Date Data Source [id number] 12/17/2020 07:58:00 PM EST [facility] Name Value Range Interpretation Code Description Data Eccy rce(s) Supporting Document(s) DRUG SCREEN URINE [facility] URINE DRUG SCREEN Amphetamine [Presence] in Urine by Screen method NEGATIVE NORMAL: N EGATIVE [facility] BARBITURATES NEGATIVE NORMAL: NEGATIVE [facility] BENZO NEGATIVE NORMAL: NEGATIVE [facility] COCAINE NEGATIVE NORMAL: NEGATIVE [facility] Tetrahydrocannabinol [Presence] in Urine NEGATIVE NORMAL: NEGATIVE [facility] OPIATES NEGATIVE NORMAL: NEGATIVE [facility] Phencyclidine [Presence] in Urine by Screen method NEGATIVE NOR MAL: NEGATIVE [facility] \\BLDo\\URINE DRUG SCR EEN INTERPRETATION\\BLDx\\ THE CUTOFFF LEVELS FOR DETECTION ARE FOLLOWS: AMPHETAMINES 1000 ng/ml BARBITUARATES 200 ng/ml BENZODIAZEPINES 100 ng/ml THC 50 ng/ml PHENCYCLIDINE 25 ng/ml OPIATES 300 ng/ml COCAINE 300 ng/ml ALL POSITIVES ARE CONSIDERED PRESUMPTIVE POSITIVE CONFIRMATION WILL BE PERFORMED AT PHYSICIAN REQUEST. ID Date Data Source [id number] 12/17/2020 07:20:00 PM EST [facility] Name Value Range Interpretation Code Description Data Cecy rce(s) Supporting Document(s) COVID19 Case rprt NOT DETECTED [facility] This lab was ordered by [facility] [facility] and reported by [facility]. ID Date Data Source [id number] 12/17/2020 08:23:00 PM [facility] Name Value Range Interpretation Code Description Data Cecy rce(s) Supporting Document(s) Thyrotropin [Units/volume] in Serum or Plasma by Detec tion limit <= 0.05 mIU/L 0.47 uIU/mL 0.47 - 5.01 [facility] ID Date Data Source [id number] 12/17/2020 08:10:00 PM [facility] Name Value Range Interpretation Code Description Data Cecy rce(s) Supporting Document(s) Ethanol [Moles/volume] in Blood 265.0 MG/DL [facility] ALCOHOL % 0.27 % 0.00 - 0.01 H [facility] ital *FOR MEDICAL PURPOSES ONLY * ID Date Data Source [id number] 12/17/2020 08:10:00 PM [facility] Name Value Range Interpretation Code Description Data Cecy rce(s) Supporting Document(s) BASIC METABOLIC PANEL [facility] BASIC METABOLIC PANEL Sodium [Moles/volume] in Serum or Plasma 142 mEq/L 134 - 153 [facility] Potassium [Moles/volume] in Serum or Plasma 3.3 mEq/L 3.6 - 5.0 L [facility] Chloride [Moles/volume] in Serum or Plasma 104 mEq/L 98 - 107 [facility] Carbon dioxide, total [Moles/volume] in Serum or Plasma 28 MEQ/L 22 - 30 [facility] Glucose [Mass/volume] in Serum or Plasma 91 MG/DL 70 - 99 [facility] BUN 5 MG/DL 7 - 21 [facility] Creatinine [Mass/volume] in Serum or Plasma 0.6 MG/DL 0.7 - 1.5 L [facility] BUN/CREAT 8 8 - 27 [facility] Calcium [Mass/volume] in Serum or Plasma 9.0 MG/DL 8.4 - 10.2 [facility] Anion gap 3 in Serum or Plasma 10.0 mmol/L 8.0 - 16.0 [facility] AGE 30 yrs [facility] AFR AMER GFR >60 mL/min [facility] NON-AA GFR >60 mL/min [facility] ital Male GFR Inter prentation 20-49 yrs [...] >32 mL/min Normal ID Date Data Source [id number] 12/17/2020 08:10:00 PM [facility] Name Value Range Interpretation Code Description Data Cecy rce(s) Supporting Document(s) SALICYLATE <0.3 mg/dL 2.0 - 20.0 L [facility] ID Date Data Source [id number] 12/17/2020 08:10:00 PM [facility] Name Value Range Interpretation Code Description Data Cecy rce(s) Supporting Document(s) Acetaminophen [Presence] in Urine <5.0 UG/ML 0.0 - 30.0 [facility] ID Date Data Source [id number] 12/17/2020 07:48:00 PM [facility] NOT DETECTEDNOT DETECTED{ PROC [facility] CONTROL VALID KIT LOT # [id number] 12/17/20.JOVANNA. KIT EXP DATE _[id number] 12/17/20.JOVANNA. NORMAL RANGE IS NOT DETECTEDNEGATIVE RESULTS [...] rce(s) Supporting Document(s) ID Date Data Source [id number] 12/17/2020 07:34:00 PM [facility] Name Value Range Interpretation Code Description Data Cecy rce(s) Supporting Document(s) CBC W/AUTOMATED DIFF [facility] COMPLETE BLOOD COUNT Leukocytes [#/volume] in Blood by Automated count 5.9 10^3/uL 4.2 - 1 1.0 [facility] Erythrocytes [#/volume] in Blood by Automated count 5.71 10^6/uL 4. 50 - 6.30 [facility] Hemoglobin [Mass/volume] in Blood 18.0 g/dL 14.0 - 16.0 H [facility] Hematocrit [Volume Fraction] of Blood by Automated count 50.9 % 4 1.0 - 51.0 [facility] Erythrocyte mean corpuscular volume [Entitic volume] by Auto mated count 89.1 fL 80.0 - 94.0 [facility] Erythrocyte mean corpuscular hemoglobin [Entitic mass] by Automated count 31.5 pg 27.0 - 34.0 [facility] Erythrocyte mean corpuscular hemoglobin concentration [Mass/volume] by Automated count 35.4 g/dL 31.0 - 36.0 [facility] Erythrocyte distribution width [Ratio] by Automated count 12.6 % 11.5 - 14.8 [facility] Platelets [#/volume] in Blood by Automated count 304 10^3/uL 150 - 45 0 [facility] Platelet mean volume [Entitic volume] in Blood by Automated count 9.2 fL 7.4 - 10.4 [facility] Neutrophils/100 leukocytes in Blood by Automated count 46.7 % 37. 0 - 80.0 [facility] Lymphocytes/100 leukocytes in Blood by Manual count 43.1 % 25.0 - 40.0 H [facility] Monocytes/100 leukocytes in Blood by Automated count 7.3 % 3.0 - 8.0 [facility] Eosinophils/100 leukocytes in Blood by Automated count 1.5 % 0.0 - 7.0 [facility] Basophils/100 leukocytes in Blood by Automated count 0.7 % 0.0 - 2.0 [facility] %IG 0.7 % 0.0 - 0.0 H [facility] %NRBC 0.0 % 0.0 - 0.0 [facility] al Neutrophils [#/volume] in Blood by Automated count 2.75 10^3/uL 2.00 - 6.90 [facility] Lymphocytes [#/volume] in Blood by Automated count 2.54 10^3/uL 0.60 - 3.40 [facility] Monocytes [#/volume] in Blood by Automated count 0.43 10^3/uL 0.00 - 0.90 [facility] Eosinophils [#/volume] in Blood by Automated count 0.09 10^3/uL 0.00 - 0.70 [facility] Basophils [#/volume] in Blood by Automated count 0.04 10^3/uL 0.00 - 0.20 [facility] #IG 0.04 10^3/uL 0.00 - 0.10 [facility] #NRBC 0.00 10^3/uL 0.00 - 0.00 [facility] MANUAL DIFF NOT INDICATED [facility] RBC MORPH NOT INDICATED [facility] spital ID Date Data Source [id number] 11/19/2020 06:01:00 AM EST [facility] [address] [place] [address] RESPIRATORY CARE REPORT ==== ---------NAME------- NUMBER SEX AGE ADMIT DISC. XRAY# F/C JULIAN Navarro [id number] 11/17/20 11/18/20 [id number] XBE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 [facility] Name Value Range Interpretation Code Description Data [facility] rce(s) Supporting Document(s) DRUG SCREEN URINE [facility] URINE DRUG SCREEN Amphetamine [Presence] in Urine by Screen method NEGATIVE NORMAL: N EGATIVE [facility] BARBITURATES NEGATIVE NORMAL: NEGATIVE [facility] BENZO NEGATIVE NORMAL: NEGATIVE [facility] COCAINE NEGATIVE NORMAL: NEGATIVE [facility] Tetrahydrocannabinol [Presence] in Urine NEGATIVE NORMAL: NEGATIVE [facility] OPIATES NEGATIVE NORMAL: NEGATIVE [facility] Phencyclidine [Presence] in Urine by Screen method NEGATIVE NOR MAL: NEGATIVE [facility] \\BLDo\\URINE DRUG SCR EEN INTERPRETATION\\BLDx\\ THE CUTOFFF LEVELS FOR DETECTION ARE FOLLOWS: AMPHETAMINES 1000 ng/ml BARBITUARATES 200 ng/ml BENZODIAZEPINES 100 ng/ml THC 50 ng/ml PHENCYCLIDINE 25 ng/ml OPIATES 300 ng/ml COCAINE 300 ng/ml ALL POSITIVES ARE CONSIDERED PRESUMPTIVE POSITIVE CONFIRMATION WILL BE PERFORMED AT PHYSICIAN REQUEST. ID Date Data Source [id number] 09/06/2020 08:53:00 PM [facility] Name Value Range Interpretation Code Description Data [facility](s) Supporting Document(s) URINALYSIS [facility] akanksha URINALYSIS SOURCE R [facility] COLOR yellow NORMAL: Yellow [facility] CLARITY clear NORMAL: Clear [facility] Specific gravity of Urine by Test strip 1.010 1.001 - 1.030 [facility] pH 7 5 - 9 [facility] Glucose [Mass/volume] in Urine by Test strip NORM NORMAL: Negat delia [facility] Bilirubin.total [Presence] in Urine by Test strip NEG NORMAL: Negative [facility] Ketones [Presence] in Urine by Test strip NEG NORMAL: Negative [facility] Protein [Mass/volume] in Urine by Test strip NEG NORMAL: Negat [facility] Nitrite [Presence] in Urine by Test strip NEG NORMAL: Negative [facility] BLOOD NEG NORMAL: Negative [facility] Leukocyte esterase [Presence] in Urine by Test strip NEG [place] L: Negative [facility] Urobilinogen [Mass/volume] in Urine by Test strip NOR less alida n 1.0 mg/dL [facility] MICROSCOPIC Not Indicate [facility] ospital ID Date Data Source [id number] 09/06/2020 08:43:00 PM EST [facility] Name Value Range Interpretation Code Description Data Cecy rce(s) Supporting Document(s) COMPREHENSIVE METABOLIC PANEL [facility] COMPREHENSIVE METABOLIC PANEL Sodium [Moles/volume] in Serum or Plasma 138 mEq/L 134 - 153 [facility] Potassium [Moles/volume] in Serum or Plasma 4.0 mEq/L 3.6 - 5.0 [facility] Chloride [Moles/volume] in Serum or Plasma 103 mEq/L 98 - 107 [facility] Carbon dioxide, total [Moles/volume] in Serum or Plasma 26 MEQ/L 22 - 30 [facility] Glucose [Mass/volume] in Serum or Plasma 93 MG/DL 65 - 110 [facility] BUN 6 MG/DL 7 - 21 L [facility] Creatinine [Mass/volume] in Serum or Plasma 0.5 MG/DL 0.7 - 1.5 L [facility] BUN/CREAT 12 8 - 27 [facility] al Protein [Mass/volume] in Serum or Plasma 7.0 G/DL 6.3 - 8.2 [facility] Albumin [Mass/volume] in Serum or Plasma 4.9 G/DL 3.9 - 5.0 [facility] Globulin [Mass/volume] in Serum by calculation 2.1 GM/DL 2.4 - 3.2 L [facility] A/G RATIO 2.3 0.8 - 2.0 [facility] Calcium [Mass/volume] in Serum or Plasma 10.0 MG/DL 8.4 - 10.2 [facility] Bilirubin.total [Mass/volume] in Serum or Plasma <0.7 MG/DL 0.2 - 1.3 [facility] Alkaline phosphatase [Enzymatic activity/volume] in Serum or Plasma 135 U/L 38 - 126 H [facility] Aspartate aminotransferase [Enzymatic activity/volume] in Serum or Plasma 24 U/L 5 - 40 [facility] Alanine aminotransferase [Enzymatic activity/volume] in Seru m or Plasma 28 U/L 7 - 56 [facility] Anion gap 3 in Serum or Plasma 9.0 mmol/L 8.0 - 16.0 [facility] AGE 29 yrs [facility] NON-AA GFR >60 mL/min [facility] AFR AMER GFR >60 mL/min [facility] Male GFR In terprentation [...] >32 mL/min Normal ID Date Data Source [id number] 09/06/2020 08:43:00 PM [facility] Name Value Range Interpretation Code Description Data Cecy rce(s) Supporting Document(s) SALICYLATE <0.3 mg/dL 2.0 - 20.0 L [facility] ID Date Data Source [id number] 09/06/2020 08:39:00 PM [facility] Name Value Range Interpretation Code Description Data Cecy rce(s) Supporting Document(s) Lipase [Enzymatic activity/volume] in Serum or Plasma 38 U/L 13 - 60 [facility] ID Date Data Source [id number] 09/06/2020 08:39:00 PM [facility] Name Value Range Interpretation Code Description Data Cecy rce(s) Supporting Document(s) Ethanol [Moles/volume] in Blood <10.0 MG/DL [facility] ALCOHOL % 0.01 % 0.00 - 0.01 [facility] *FOR MEDICAL PURPOSES ONLY * ID Date Data Source [id number] 09/06/2020 08:39:00 PM EST [facility] Name Value Range Interpretation Code Description Data Cecy rce(s) Supporting Document(s) Acetaminophen [Presence] in Urine <5.0 UG/ML 0.0 - 30.0 [facility] ID Date Data Source [id number] 09/06/2020 08:14:00 PM EST [facility] Name Value Range Interpretation Code Description Data Cecy rce(s) Supporting Document(s) CBC W/AUTOMATED DIFF [facility] COMPLETE BLOOD COUNT Leukocytes [#/volume] in Blood by Automated count 9.2 10^3/uL 4.2 - 1 1.0 [facility] Erythrocytes [#/volume] in Blood by Automated count 5.24 10^6/uL 4. 50 - 6.30 [facility] Hemoglobin [Mass/volume] in Blood 15.8 g/dL 14.0 - 16.0 [facility] Hematocrit [Volume Fraction] of Blood by Automated count 45.8 % 4 1.0 - 51.0 [facility] Erythrocyte mean corpuscular volume [Entitic volume] by Auto mated count 87.4 fL 80.0 - 94.0 [facility] Erythrocyte mean corpuscular hemoglobin [Entitic mass] by Automated count 30.2 pg 27.0 - 34.0 [facility] Erythrocyte mean corpuscular hemoglobin concentration [Mass/volume] by Automated count 34.5 g/dL 31.0 - 36.0 [facility] Erythrocyte distribution width [Ratio] by Automated count 12.7 % 11.5 - 14.8 [facility] Platelets [#/volume] in Blood by Automated count 318 10^3/uL 150 - 45 0 [facility] Platelet mean volume [Entitic volume] in Blood by Automated count 9.5 fL 7.4 - 10.4 [facility] Neutrophils/100 leukocytes in Blood by Automated count 63.9 % 37. 0 - 80.0 [facility] Lymphocytes/100 leukocytes in Blood by Manual count 26.6 % 25.0 - 40.0 [facility] Monocytes/100 leukocytes in Blood by Automated count 6.8 % 3.0 - 8.0 [facility] Eosinophils/100 leukocytes in Blood by Automated count 1.4 % 0.0 - 7.0 [facility] Basophils/100 leukocytes in Blood by Automated count 0.5 % 0.0 - 2.0 [facility] %IG 0.8 % 0.0 - 0.0 H [facility] %NRBC 0.0 % 0.0 - 0.0 [facility] al Neutrophils [#/volume] in Blood by Automated count 5.90 10^3/uL 2.00 - 6.90 [facility] Lymphocytes [#/volume] in Blood by Automated count 2.46 10^3/uL 0.60 - 3.40 [facility] Monocytes [#/volume] in Blood by Automated count 0.63 10^3/uL 0.00 - 0.90 [facility] Eosinophils [#/volume] in Blood by Automated count 0.13 10^3/uL 0.00 - 0.70 [facility] Basophils [#/volume] in Blood by Automated count 0.05 10^3/uL 0.00 - 0.20 [facility] #IG 0.07 10^3/uL 0.00 - 0.10 [facility] #NRBC 0.00 10^3/uL 0.00 - 0.00 [facility] MANUAL DIFF NOT INDICATED [facility] RBC MORPH NOT INDICATED [facility] spital ID Date Data Source [id number] 08/31/2020 09:29:00 AM EST [facility] [address] [place] [address] RESPIRATORY CARE REPORT ==== ---------NAME------- NUMBER SEX AGE ADMIT DISC. XRAY# F/C JULIAN Navarro [id number] M 29 08/29/20 08/29/20 [id number] XBE E/R DATE OF : 1990 M/R# [id number] #: [id number] TR-03 LOCATION: EMERGENCY DEPT EKG 63360 COMP LETE:08/29/20 01:26 VMT [id number] PHYSICIAN: ANTHONY GODINEZ Name Value Range Interpretation Code Description Data Cecy rce(s) Supporting Document(s) ID Date Data Source [id number] 08/29/2020 12:13:00 AM EST [facility] 1 OrderSheet [facility] [address] [place] [address] Phone #: ext- [phone] 08/29/2020 00:12 Patient: [...] outweigh risks -- 00:37 08/29/2020 2 OrderSheet [facility] [address] [place] [address] Phone #: ext- [phone] 08/29/2020 00:12 Patient: [...] 08/29/2020 01:21 Prudencio Barry R.N. 3 OrderSheet [facility] [address] [place] [address] Phone #: ext- [phone] 08/29/2020 00:12 Patient: [...] rce(s) Supporting Document(s) ID Date Data Source [id number] 08/29/2020 12:13:00 AM [facility] 1 Medication Reconciliation Report [facility] [address] [place] [address] Phone #: ext- [phone] 08/29/2020 00:12 Patient: [...] rce(s) Supporting Document(s) ID Date Data Source [id number] 08/29/2020 12:13:00 AM [facility] 1 Medication Administration Record [facility] [address] [place] [address] Phone #: ext- [phone] 08/29/2020 00:12 Patient: CAMILO LAWSON Sex: M [...] rce(s) Supporting Document(s) ID Date Data Source [id number] 08/29/2020 12:13:00 AM EST [facility] 1 General Instructions [facility] Department [address] [place] [address] Phone #: ext- [phone] 08/29/2020 00:12 Patient: [...] yourself at most times 2 General Instructions [facility] [address] [place] [address] Phone #: ext- [phone] 08/29/2020 00:12 Patient: [...] providers about all of the prescription medicines, ktkk-dym-qncmloh medicines, vitamins, and supplements you take. Certain [...] operates a toll-free ADA information line at: [phone] (Voice); or [phone] (TTY). They can help you locate a local office.Follow-up careFollow up with your healthcare provider, or as advised.Call [phone] if any of these occur: You have suicidal thoughts, a suicide plan, and the means to carry out the plan Trouble breathing 3 General Instructions [facility] Department [address] [place] [address] Phone #: ext- [phone] 08/29/2020 00:12 Patient: [...] who have expressed concern over your behavior [phone] [employer]. [address] [place] [address], [place] [address]. All rights reserved. This information is not intended as asubstitute for professional medical care. Always follow your healthcare professional's instructions. 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 --00:22 08/29/20 Carito Barry R.N.00:14 08/29/20. [...] Carito Barry R.N.PROBLEMS:Insomnia: Chronic. --00:08/29/20 Carito Barry R.N.[place] disorder.Lifestyle / Substance Problems.Bipolar Disorder.Anxiety Reaction.ADHD - Attention Deficit Hyperactivity Disorder.Neurological Disease.Tension-Type Headache.Seizure Disorder.Seizure.STD - Sexually Transmitted Disease.Tendonitis.Tbi. 2 Clinical Report - Nurses [facility] Department [address] [place] [address] Phone #: ext- [phone] 08/29/2020 00:12 [facility]: [id number] Sex: M : 1990 Age: 29yObsessive Compulsive [...] integrity risk 3 Clinical Report - Nurses [facility] Department [address] [place] [address] Phone #: ext- [phone] 08/29/2020 00:12 Patient: [...] Patient verbalized understanding. Written instructions provided in Maldivian. The patient was discharged home. He left ambulatory and via taxi. 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 --03:44 08/29/20 Carito Barry R.N. 4 Clinical Report - Nurses [facility] Department [address] [place] [address] Phone #: ext- [phone] 08/29/2020 00:12 Patient: CAMILO LAWSON Sex: M : 1990 Age: 29y 03:44 08/29/20. BP: 126/82. MAP: 96. HR: 71. RR: 16. O2 saturation: 97% on room air. Temp: 98.1 F. Pain level now: 010. --03:44 08/29/20 Carito Barry R.N.Locked/Released at 08/29/2020 05:19 by Carito Barry R.N. Name Value Range Interpretation Code Description Data Cecy rce(s) Supporting Document(s) ID Date Data Source [id number] 08/29/2020 12:13:00 AM EST [facility] 1 Clinical Report - Physicians/Mid Levels [facility] Department [address] [place] [address] Phone #: ext- [phone] 08/29/2020 00:12 Patient: CAMILO LAWSON Sex: M [...] Abrasions 2 Clinical Report - Physicians/Mid Levels [facility] Department [address] [place] [address] Phone #: ext- [phone] 08/29/2020 00:12 Patient: [...] ABD //T// PELV W/O ORAL W/[place] [address] ---------N RYANN--------- NUMBER SEX AGE ADMIT DISC. XRAY# F/C TYPE MANTLE CAMILO D [id number] M 29 08/29/20 [id number] NA E/R DATE OF : 1990 M/R# [id number] #: [id number] TR-03 3 Clinical Report - Physicians/Mid Levels [facility] Department [address] [place] [address] Phone #: ext- [phone] 08/29/2020 00:12 Patient: CAMILO LAWSON Sex: M : 1990 Age: 29y LOCATION: EMERGENCY DEPT TRANSCRIBED: 08/29/20 2:[address] ABD //T// PELV W/O ORAL W/[place] [id number] COMPLETED:08/29/20 2:18 RLB 48947 Reason(s): Trauma/Injury PHYSICIAN: ANTHONY BR = R [...] pathologyevident.IMPRESSION: 4 Clinical Report - Physicians/Mid Levels [facility] Department [address] [place] [address] Phone #: ext- [phone] 08/29/2020 00:12 Patient: [...] Finalresults Exam CT ST NECK W/O CONTRAST [address] [place] [address] ---------NAME--------- NUMBER SEX AGE ADMIT DISC. XRAY# F/C TYPE MANTLE CAMILO Navarro [id number] M 29 08/29/20 [id number] NA E/R DATE OF : 1990 M/R# [id number] #: [id number] TR-03 LOCATION: EMERGENCY DEPT TRANSCRIBED: 08/29/20 2:[address] NECK W/O CONTRAST [address]32[address] COMPLETED:08/29/20 2:18 RLB 05446 Reason(s): Trauma/Injury PHYSICIAN: ANTHONY BR R A [...] gas. 5 Clinical Report - Physicians/Mid Levels [facility] Department [address] [place] [address] Phone #: ext- [phone] 08/29/2020 00:12 Patient: [...] Final results Exam CT THORAX W/[place] [address] ---------NAME--------- NUMBER SEX AGE ADMIT DISC. XRAY# F/C TYPE BENJAMÍN Navarro [id number] M 29 08/29/20 [id number] NA E/R DATE OF : 1990 M/R# [id number] #: [id number] TR-03 LOCATION: EMERGENCY DEPT TRANSCRIBED: 08/29/20 2:[address] THORAX W/O CONTRAST 74906 COMPLETED:08/29/20 2:18 RLB [id number] Reason(s): Trauma/Injury PHYSICIAN: ANTHONY BR R A [...] study provided. 6 Clinical Report - Physicians/Mid [facility] Emergency Department [address] [place] [address] Phone #: ext- [phone] 08/29/2020 00:12 Patient: [...] Date/Time: 08/29/20 02:56Urinalysis: (LULU: 08/29/2020 01:15) ( [facility] 08/29/2020 01:25) Final results Test Result Flag [...] NEGAT 7 Clinical Report - Physicians/Mid Levels [facility] Department [address] [place] [address] Phone #: ext- [phone] 08/29/2020 00:12 Patient: CAMILO LAWSON Sex: M : 1990 Age: 29y THC NEGATIVE (NORMAL: NEGAT OPIATES NEGATIVE (NORMAL: NEGAT PCP NEGATIVE (NORMAL: NEGAT \\BLDo\\URINE DRUG SCREEN INTERPRETATION\\BLDx\\ THE CUTOFFF LEVELS FORDETECTION ARE FOLLOWS: AMPHETAMINES 1000 ng/mlBARBITUARATES 200 ng/ml BENZODIAZEPINES 100 ng/mlTHC 50 ng/ml PHENCYCLIDINE 25 ng/mlOPIATES 300 ng/ml COCAINE 300 ng/mlALL POSITIVES ARE CONSIDERED PRESUMPTIVE POSITIVE CONFIRMATION WILL BE PERFORMED AT [facility].CMP: (LULU: 08/29/2020 01:35) ( MsgRcvd [...] Male GFR Interprentation 20-49 yrs >60 mL/min Ohnwub68-92 yrs >56 mL/min Normal 60-69 yrs >49 mL/min Normal 70-79yrs>42 mL/min Normal 80 and above >35 mL/min Normal Female GFRInterpretation 20-39 yrs >60 mL/min Normal 40-49 yrs >58 mL/minNormal 50-59 yrs >51 mL/min Normal 60-69 yrs >45 mL/min Nwywqk74-49 yrs >39 mL/min Normal 80 and above [...] 8 C linical Report - Physicians/Mid Levels [facility] Emergency Department [address] [place] [address] Phone #: ext- [phone] 08/29/2020 00:12 Patient: [...] NOT INDICATED Lipase: (LULU: 08/29/2020 01:35) ( [facility] 08/29/2020 02:03) Final results Test Result Flag Units (Reference) LIPASE 37 U/L (13 - 60) Lactic Acid: (LULU: 08/29/2020 01:35) ( [facility] 08/29/2020 01:45) Final results Test Result Flag [...] tendencies.). 9 Clinical Report - Physicians/Mid Levels [facility] Emergency Department [address] [place] [address] Phone #: ext- [phone] 08/29/2020 00:12 Patient: [...] rce(s) Supporting Document(s) ID Date Data Source [id number] 08/29/2020 02:56:00 [place] [address] ---------NAME--------- NUMBER SEX AGE ADMIT DISC. XRAY# F/C TYPE BENJAMÍN Navarro [id number] M 29 08/29/20 [id number] NA E/R DATE OF : 1990 M/R# [id number] #: [id number] RM TR-03 LOCATION: EMERGENCY DEPT TRANSCRIBED: 08/29/20 2:[address] THORAX W/O CONTRAST [id number] COMPLETED:08/29/20 2:18 RLB 44491 Reason(s): Trauma/Injury PHYSICIAN: ANTHONY BR R A [...] rce(s) Supporting Document(s) ID Date Data Source [id number] 08/29/2020 02:39:00 AM EST [address] [place] [address] ---------NAME--------- NUMBER SEX AGE ADMIT DISC. XRAY# F/C TYPE MANTLE CAMILO D [id number] M 29 08/29/20 [id number] NA E/R DATE OF : 1990 M/R# [id number] #: [id number] TR-03 LOCATION: EMERGENCY DEPT TRANSCRIBED: 08/29/20 2:[address] ABD //T// PELV W/[place] OR[place] W/[place] [id number] COMPLETED:08/29/20 2:18 RLB [id number] Reason(s): Trauma/Injury PHYSICIAN: ANTHONY BR======== R A [...] rce(s) Supporting Document(s) ID Date Data Source [id number] 08/29/2020 02:37:00 AM [facility] [address] [place] [address] ---------NAME--------- NUMBER SEX AGE ADMIT DISC. XRAY# F/C TYPE MANTLE CAMILO D [id number] M 29 08/29/20 [id number] NA E/R DATE OF : 1990 M/R# [id number] #: [id number] TR-03 LOCATION: EMERGENCY DEPT TRANSCRIBED: 08/29/20 2:[address] NECK W/O CONTRAST [id number] COMPLETED:08/29/20 2:18 RLB [id number] Reason(s): Trauma/Injury PHYSICIAN: ANTHONY BR R A [...] rce(s) Supporting Document(s) ID Date Data Source [id number] 08/29/2020 02:02:00 AM [facility] Name Value Range Interpretation Code Description Data Cecy rce(s) Supporting Document(s) Lipase [Enzymatic activity/volume] in Serum or Plasma 37 U/L 13 - 60 [facility] ID Date Data Source [id number] 08/29/2020 02:02:00 AM [facility] Name Value Range Interpretation Code Description Data Cecy rce(s) Supporting Document(s) COMPREHENSIVE METABOLIC PANEL [facility] COMPREHENSIVE METABOLIC PANEL Sodium [Moles/volume] in Serum or Plasma 136 mEq/L 134 - 153 [facility] Potassium [Moles/volume] in Serum or Plasma 3.8 mEq/L 3.6 - 5.0 [facility] Chloride [Moles/volume] in Serum or Plasma 103 mEq/L 98 - 107 [facility] Carbon dioxide, total [Moles/volume] in Serum or Plasma 26 MEQ/L 22 - 30 [facility] Glucose [Mass/volume] in Serum or Plasma 106 MG/DL 65 - 110 [facility] BUN 14 MG/DL 7 - 21 [facility] al Creatinine [Mass/volume] in Serum or Plasma 0.6 MG/DL 0.7 - 1.5 L [facility] BUN/CREAT 23 8 - 27 [facility] al Protein [Mass/volume] in Serum or Plasma 6.6 G/DL 6.3 - 8.2 [facility] Albumin [Mass/volume] in Serum or Plasma 4.3 G/DL 3.9 - 5.0 [facility] Globulin [Mass/volume] in Serum by calculation 2.3 GM/DL 2.4 - 3.2 L [facility] A/G RATIO 1.9 0.8 - 2.0 [facility] Calcium [Mass/volume] in Serum or Plasma 9.3 MG/DL 8.4 - 10.2 [facility] Bilirubin.total [Mass/volume] in Serum or Plasma 0.8 MG/DL 0.2 - 1.3 [facility] Alkaline phosphatase [Enzymatic activity/volume] in Serum or Plasma 108 U/L 38 - 126 [facility] Aspartate aminotransferase [Enzymatic activity/volume] in Serum or Plasma 17 U/L 5 - 40 [facility] Alanine aminotransferase [Enzymatic activity/volume] in Seru m or Plasma 18 U/L 7 - 56 [facility] Anion gap 3 in Serum or Plasma 7.0 mmol/L 8.0 - 16.0 L [facility] AGE 29 yrs [facility] al NON-AA GFR >60 mL/min [facility] ital AFR AMER GFR >60 mL/min [facility] Male GFR In terprentation [...] >32 mL/min Normal ID Date Data Source [id number] 08/29/2020 01:45:00 AM [facility] Name Value Range Interpretation Code Description Data Cecy rce(s) Supporting Document(s) Lactate [Moles/volume] in Serum or Plasma 1.0 MMOL/L 0.2 - 2.2 [facility] ID Date Data Source [id number] 08/29/2020 01:42:00 AM [facility] Name Value Range Interpretation Code Description Data Cecy rce(s) Supporting Document(s) CBC W/AUTOMATED DIFF [facility] COMPLETE BLOOD COUNT Leukocytes [#/volume] in Blood by Automated count 8.4 10^3/uL 4.2 - 1 1.0 [facility] Erythrocytes [#/volume] in Blood by Automated count 4.97 10^6/uL 4. 50 - 6.30 [facility] Hemoglobin [Mass/volume] in Blood 15.1 g/dL 14.0 - 16.0 [facility] Hematocrit [Volume Fraction] of Blood by Automated count 43.8 % 4 1.0 - 51.0 [facility] Erythrocyte mean corpuscular volume [Entitic volume] by Auto mated count 88.1 fL 80.0 - 94.0 [facility] Erythrocyte mean corpuscular hemoglobin [Entitic mass] by Automated count 30.4 pg 27.0 - 34.0 [facility] Erythrocyte mean corpuscular hemoglobin concentration [Mass/volume] by Automated count 34.5 g/dL 31.0 - 36.0 [facility] Erythrocyte distribution width [Ratio] by Automated count 12.6 % 11.5 - 14.8 [facility] Platelets [#/volume] in Blood by Automated count 258 10^3/uL 150 - 45 0 [facility] Platelet mean volume [Entitic volume] in Blood by Automated count 9.9 fL 7.4 - 10.4 [facility] Neutrophils/100 leukocytes in Blood by Automated count 59.4 % 37. 0 - 80.0 [facility] Lymphocytes/100 leukocytes in Blood by Manual count 28.6 % 25.0 - 40.0 [facility] Monocytes/100 leukocytes in Blood by Automated count 8.9 % 3.0 - 8.0 H [facility] Eosinophils/100 leukocytes in Blood by Automated count 2.1 % 0.0 - 7.0 [facility] Basophils/100 leukocytes in Blood by Automated count 0.6 % 0.0 - 2.0 [facility] %IG 0.4 % 0.0 - 0.0 H [facility] %NRBC 0.0 % 0.0 - 0.0 [facility] al Neutrophils [#/volume] in Blood by Automated count 4.99 10^3/uL 2.00 - 6.90 [facility] Lymphocytes [#/volume] in Blood by Automated count 2.40 10^3/uL 0.60 - 3.40 [facility] Monocytes [#/volume] in Blood by Automated count 0.75 10^3/uL 0.00 - 0.90 [facility] Eosinophils [#/volume] in Blood by Automated count 0.18 10^3/uL 0.00 - 0.70 [facility] Basophils [#/volume] in Blood by Automated count 0.05 10^3/uL 0.00 - 0.20 [facility] #IG 0.03 10^3/uL 0.00 - 0.10 [facility]ital #NRBC 0.00 10^3/uL 0.00 - 0.00 [facility] MANUAL DIFF NOT INDICATED [facility] RBC MORPH NOT INDICATED [facility] spital ID Date Data Source [id number] 08/29/2020 01:40:00 AM EST [facility] Name Value Range Interpretation Code Description Data Cecy rce(s) Supporting Document(s) DRUG SCREEN URINE [facility] URINE DRUG SCREEN Amphetamine [Presence] in Urine by Screen method NEGATIVE NORMAL: N EGATIVE [facility] BARBITURATES NEGATIVE NORMAL: NEGATIVE [facility] BENZO NEGATIVE NORMAL: NEGATIVE [facility] COCAINE NEGATIVE NORMAL: NEGATIVE [facility] Tetrahydrocannabinol [Presence] in Urine NEGATIVE NORMAL: NEGATIVE [facility] OPIATES NEGATIVE NORMAL: NEGATIVE [facility] Phencyclidine [Presence] in Urine by Screen method NEGATIVE NOR MAL: NEGATIVE [facility] \\BLDo\\URINE DRUG SCR EEN INTERPRETATION\\BLDx\\ THE CUTOFFF LEVELS FOR DETECTION ARE FOLLOWS: AMPHETAMINES 1000 ng/ml BARBITUARATES 200 ng/ml BENZODIAZEPINES 100 ng/ml THC 50 ng/ml PHENCYCLIDINE 25 ng/ml OPIATES 300 ng/ml COCAINE 300 ng/ml ALL POSITIVES ARE CONSIDERED PRESUMPTIVE POSITIVE CONFIRMATION WILL BE PERFORMED AT PHYSICIAN REQUEST. ID Date Data Source [id number] 08/29/2020 01:25:00 AM [facility] Name Value Range Interpretation Code Description Data Cecy rce(s) Supporting Document(s) URINALYSIS [facility] akanksha URINALYSIS SOURCE R [facility] COLOR yellow NORMAL: Yellow [facility] CLARITY clear NORMAL: Clear [facility] Specific gravity of Urine by Test strip 1.010 1.001 - 1.030 [facility] pH 6.5 5 - 9 [facility] Glucose [Mass/volume] in Urine by Test strip NORM NORMAL: Negat [facility] Bilirubin.total [Presence] in Urine by Test strip NEG NORMAL: Negative [facility] Ketones [Presence] in Urine by Test strip NEG NORMAL: Negative [facility] Protein [Mass/volume] in Urine by Test strip NEG NORMAL: Negat [facility] Nitrite [Presence] in Urine by Test strip NEG NORMAL: Negative [facility] BLOOD NEG NORMAL: Negative [facility] Leukocyte esterase [Presence] in Urine by Test strip NEG [place] L: Negative [facility] Urobilinogen [Mass/volume] in Urine by Test strip NOR less alida n 1.0 mg/dL [facility] MICROSCOPIC Not Indicate [facility] ID Date Data Source [id number] 08/19/2020 01:52:[address] [facility] Vital SignsBlood Pressure: 138/82 Patient History Medical History:Brain TumorSeizure DisorderDepressionHx of kidney stonesBipolarSurgical History:Partial lobectomyFamily History:No known family historySocial/Personal History: Smoking Status: current some day smokerDo you vape? NoCurrent Problems: Normal examination (ICD-V65.5) (LFV06-Y43.1)Dental caries/Impaction of teeth (ICD-521.00) (MEW42-T66.9)Contact dermatitis and other eczema, unspecified cause (ICD-692.9) (GCO43-W39.9)Depression (ICD-311) (SSN63-E13.9)Seizure Disorder (ICD-780.39) (EXA68-R76.9)Brain Tumor (ICD-191.9) (JRH66-H90.9)Problem list reviewed during this update.Current Medications: SEROQUEL [...] PM): ; yany (Aug 20 2020 7:29AM): [facility](-). CC: none. Reviewed Xrays. Exam: caries [...] Known Allergies (updated 08/19/2020) Orders:Oral Surgery Referral [[id number]] Clinical Visit Summary Declined Name Value Range Interpretation Code Description Data Cecy rce(s) Supporting Document(s) ID Date Data Source [id number] 08/14/2020 07:17:00 PM EDT [facility] 1 Medication Reconciliation Report [facility] Emergency Department [address] [place] [address] Phone #: ext- [phone] 08/14/2020 19:09 Patient: [...] Value Range Interpretation Code Description Data Cecy [facility](s) Supporting Document(s) ID Date Data Source [id number] 08/14/2020 07:17:00 PM EDT [facility] 1 Medication Administration Record [facility] [address] [place] [address] Phone #: ext- [phone] 19:09 Patient: CAMILO LAWSON Sex: M : 1990 Age: 29yWeight: 81.6 kgHeight/Length: 72 inBMI: 24.4ALLERGIES: No Known Drug AllergyDate/Time Medication Administered Medication Ordered Name Value Range Interpretation Code Description Data [facility](s) Supporting Document(s) ID Date Data Source [id number] 08/14/2020 07:17:00 PM EDT [facility] 1 General Instructions [facility] Emergency Department [address] [place] [address] Phone #: ext- [phone] 08/14/2020 19:09 Patient: CAMILO LAWSON Sex: M : 1990 Age: 29y Anxiety reaction. No hyperventilation.INSTRUCTIONS Warnings: GENERAL WARNINGS: Return or contact your physician immediately if your condition worsens or changes unexpectedly, if not improving as expected, or if other problems arise. Understanding of the discharge instructions verbalized by patient. Follow-up with: [facility], , , [address] [place], [address] Follow up in one week. Call for [...] may experience: Dry mouth 2 General Instructions [facility] Department [address] [place] [address] Phone #: ext- [phone] 08/14/2020 19:09 Patient: [...] Also, there are certain 3 General Instructions [facility] [address] [place] [address] Phone #: ext- [phone] 08/14/2020 19:09 Patient: [...] andtemporary medicine to help you manage stress.Call [phone] if any of these happen: Trouble breathing [...] and mild pain reliever 4 General Instructions [facility] Department [address] [place] [address] Phone #: ext- [phone] 08/14/2020 19:09 Patient: CAMILO LAWSON Sex: M : 1990 Age: 29y [phone] [employer]. [address] [place] [address]. All rights reserved. This information is not intended as asubstitute for professional medical care. Always follow your healthcare professional's instructions. You have been given the following additional information: Anxiety Reaction(Electronically signed by Pedro Rizo, 08/14/2020 20:15) Name Value Range Interpretation Code Description Data Cecy rce(s) Supporting Document(s) ID Date Data Source [id number] 08/14/2020 07:17:00 PM EDT [facility] 1 Clinical Report - Nurses [facility] [address] [place] [address] Phone #: ext- [phone] 08/14/2020 19:09 Patient: [...] 08/14/20 Alfonso Buck R.N.AllergiesNo Known Drug Allergy. --:08/14/20 [...] no barriers. 2 Clinical Report - Nurses [facility] Department [address] [place] [address] Phone #: ext- [phone] 08/14/2020 19:09 Patient: [id number] Sex: M : 1990 Age: 29y FALL RISK ASSESSMENT: Fall risk assessment completed. No risk factors identified. SKIN INTEGRITY ASSESSMENT: Skin integrity risk assessment completed. No skin integrity risk identified. --19:30 08/14/20 Alfonso Buck R.N. FAMILY HX: No significant family medical history. --19:53 08/14/20 Pedro Rizo.PHYSICAL [id number] 08/14/20. Ambulatory to room.GENERAL / NEURO / [...] Patient verbalized understanding. Written instructions provided in Maldivian. The patient was discharged home and unaccompanied at time of discharge. He left ambulatory and via taxi. 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 --20:04 08/14/20 Carito Barry R.N. 20:03 08/14/20. BP: 141/93. MAP: 109. HR: 81. RR: 16. O2 saturation: 98%. Temp: 97.9 F. Pain level now: 0/10. --20:04 08/14/20 Carito Barry R.N.Locked/Released at 08/14/2020 20:04 by Carito Barry R.N. Name Value Range Interpretation Code Description Data Cecy rce(s) Supporting Document(s) ID Date Data Source [id number] 08/14/2020 07:17:00 PM EDT [facility] 1 Clinical Report - Physicians/Mid Levels [facility] Emergency Department [address] [place] [address] Phone #: ext- [phone] 08/14/2020 19:09 Patient: CAMILO LAWSON Sex: M [...] alone. 2 Clinical Report - Physicians/Mid Levels [facility] Emergency Department [address] [place] [address] Phone #: ext- [phone] 08/14/2020 19:09 Patient: CAMILO LAWSON Sex: M [...] patient. 3 Clinical Report - Physicians/Mid Levels [facility] Emergency Department [address] [place] [address] Phone #: ext- [phone] 08/14/2020 19:09 Patient: CAMILO LAWSON Sex: M : 1990 Age: 29y Follow-up with: [facility], , , [address], , [place], [address] Follow up in one week. Call for an appointment.(Electronically signed by Pedro Rizo, 08/14/2020 20:15) Name Value Range Interpretation Code Description Data Cecy rce(s) Supporting Document(s) Procedure Social History Code Duration Value Status Description Data Source(s ) Smoking 09/21/2021 12:00:00 AM EST Smoker, current status unkn own completed Smoker, current status unknown [facility]) Smoking 08/30/2021 12:00:00 AM EST Smoker, current status unkn own completed Smoker, current status unknown [facility] ([facility]) Smoking 07/20/2021 12:00:00 AM EDT Smoker, current status unkn own completed Smoker, current status unknown [facility] ([facility]) Smoking 07/05/2021 12:00:00 AM EDT Smoker, current status unkn own completed Smoker, current status unknown [facility] ([facility]) Smoking 03/29/2021 12:00:00 AM EDT Smoker, current status unkn own completed Smoker, current status unknown [facility] ([facility]) Smoking 02/17/2021 12:00:00 AM EDT Smoker, current status unkn own completed Smoker, current status unknown [facility] ([facility]) Smoking 01/01/2021 12:00:00 AM EST Smoker, current status unkn own completed Smoker, current status unknown [facility] ([facility]) Smoking 11/17/2020 12:00:00 AM EST Smoker, current status unkn own completed Smoker, current status unknown [facility] ([facility]) Smoking 11/02/2020 12:00:00 AM EST Smoker, current status unkn own completed Smoker, current status unknown [facility] ([facility]) Smoking 10/20/2020 12:00:00 AM EST Smoker, current status unkn own completed Smoker, current status unknown [facility] ([facility]) Smoking 09/24/2020 12:00:00 AM EST Smoker, current status unkn own completed Smoker, current status unknown [facility] ([facility]) Smoking 09/02/2020 12:00:00 AM EST Smoker, current status unkn own completed Smoker, current status unknown [facility] ([facility]) Smoking 08/19/2020 12:00:00 AM EDT Smoker, current status unkn own completed Smoker, current status unknown [facility] ([facility]) Smoking 08/18/2020 12:00:00 AM EDT Smoker, current status unkn own completed Smoker, current status unknown [facility] ([facility]) Smoking 07/29/2020 12:00:00 AM EDT Smoker, current status unkn own completed Smoker, current status unknown [facility] ([facility])
--- OUTSIDE RECORDS SUMMARY | 2021-09-24 23:00 | CCD ---
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 MEDICAL PURPOSES ONLY * ID Date Data Source [id number] 09/04/2021 08:11:[address] [facility] Name Value Range Interpretation Code Description Data Cecy rce(s) Supporting Document(s) Magnesium [Mass/volume] in Serum or Plasma 2.0 MG/DL 1.7 - 2.[address] [facility] ID Date Data Source [id number] 08/20/2021 03:47:00 PM EDT [facility] Name Value Range Interpretation Code Description Data Cecy rce(s) Supporting Document(s) SARS coronavirus 2 RNA [Presence] in Res piratory specimen by WILLOW with probe detection NEGATIVE [facility] This lab was ordered by [facility] a nd reported by [facility]. ID Date Data Source [id number] 01/02/2021 07:12:00 PM EST [facility] Name Value Range Interpretation Code Description Data Cecy rce(s) Supporting Document(s) SARS coronavirus 2 RNA Not Detected [facility] This lab was ordered by [facility] and reported by [facility]. ID Date Data Source [id number] 12/18/2020 12:37:00 PM [facility] [address] [place] [address] RESPIRATORY CARE REPORT ==== ---------NAME------- NUMBER SEX AGE ADMIT DISC. XRAY# F/C JULIAN Navarro [id number] 30 12/17/20 12/18/20 [id number] XBE E/R DATE OF : 1990 M/R# [id number] #: [id number] TR-07 LOCATION: EMERGENCY DEPT EKG [id number] COMP LETE:12/18/20 03:38 [place] [id number] PHYSICIAN: JUDY Cr Name Value Range Interpretation Code Description Data Cecy rce(s) Supporting Document(s) ID Date Data Source [id number] 12/17/2020 09:54:00 PM EST [facility] [address] [place] [address] PHONE: [phone] FAX: [phone] Name .................. : BENJAMÍN Navarro Acct Number.................. : [id number] ROOM. ................. : TR-07 MR Number ................... : [id number] Stay type ............. : E/R Discharge Date......... ... : Admit Date ......... : 12/17/20 Admit Phys .................... : JUDY Cr Date of ....... : 1990 Family Phys ................... : NON STAFF Phone .................. : [phone] Age ................................ : 30 Film# .................. .:[id number] Sex ................................. : M Unsigned transcriptions are preliminary reports and do not represent a medical or legal document CHEST PORTABLE [id number] COMPLETE:12/17/20 20:14 5122 Reason(s): [facility] PORTABLE CHEST X-RAY: INDICATION: Altered mental [...] rce(s) Supporting Document(s) ID Date Data Source [id number] 12/17/2020 05:55:[address] [facility] [address] [facility] Emergency Department [address] [place] [address] Phone #: ext- [phone] 12/17/2020 17:48 Patient: [...] STAT 03:57 12/18/2020 03:58 Sander Can OrderSheet [facility] Emergency Department [address] [place] [address] Phone #: ext- [phone] 12/17/2020 17:48 Patient: [...] Name Value Range Interpretation Code Description Data [facility](s) Supporting Document(s) ID Date Data Source [id number] 12/17/2020 05:55:00 PM [place] [address] Medication Reconciliation Report [facility] Emergency Department [address] [place] [address] Phone #: ext- [phone] 12/17/2020 17:48 Patient: [...] Name Value Range Interpretation Code Description Data [facility](s) Supporting Document(s) ID Date Data Source [id number] 12/17/2020 05:55:00 PM [place] [address] Medication Administration Record [facility] Emergency Department [address] [place] [address] Phone #: ext- [phone] 12/17/2020 17:48 Patient: CAMILO LAWSON Sex: M : 1990 Age: 30yWeight: 87.4 kgHeight/Length: 69 inBMI: 28.5ALLERGIES: None Date/Time Medication Administered Medication OrderedGiven HALDOL [IVP] (HALOPERIDOL Haldol IVP 5 mg (NOW x1)21:15 12/17/2020 LACTATE)Ana Connelly, Dose: 5 mg IVP Site: #1 left Name Value Range Interpretation Code Description Data Cecy rce(s) Supporting Document(s) ID Date Data Source [id number] 12/17/2020 05:55:00 PM [facility] [address] [facility] Emergency Department [address] [place] [address] Phone #: ext- [phone] 12/17/2020 17:48 Patient: CAMILO LAWSON Sex: M : 1990 Age: 30yAcute drug induced (alcohol) psychosis with paranoia, associated with schizophrenia.(Electronically signed by Pedro Rizo 12/18/2020 06:44) Name Value Range Interpretation Code Description Data Cecy rce(s) Supporting Document(s) ID Date Data Source [id number] 12/17/2020 05:55:00 PM [facility] 1 Clinical Report - Nurses [facility] Emergency Department [address] [place] [address] Phone #: ivt- [phone] 12/17/2020 17:48 Patient: CAMILO LAWSON Sex: M [...] Escalante, LALO. 2 Clinical Report - Nurses [facility] Emergency Department [address] [place] [address] Phone #: [phone] ext- [phone] 12/17/2020 17:48 Patient: CAMILO LAWSON [facility]#: [id number] Sex: M : 1990 Age: 30y ADDITIONAL [...] treatment room. --18:00 12/17/20 Shila Dorantes R.N.PHYSICAL ZIQCHIEWBU48:00 12/17/20. To room via stretcher.GENERAL / NEURO / PSYCH: Alert. Oriented X 4. Appears anxious. ( pt swearing yelling at staff).Pupillary exam: Right pupil 2mm and constricted. Left pupil: 2mm and constricted. 3 Clinical Report - Nurses [facility] Emergency Department [address] [place] [address] Phone #: ext- [phone] 12/17/2020 17:48 Patient: [...] enforcement 5 minutes later David PALOMARES and [facility] police in ED arrived and talking with [...] 12/17/20 Godwin, Karrie Clinical Report - Nurses [facility] Emergency Department [address] [place] [address] Phone #: ext- [phone] 12/17/2020 17:48 Patient: CAMILO LAWSON Sex: M [...] 4am to proceed with sending pt to [facility] (which is where pt wants to [...] 12/18/20 Peggy Chapin R.N.( chart faxed to [facility]). --04:40 12/18/20 Peggy Chapin R.N.The patient is sleeping. --04:40 12/18/20 Peggy Chapin R.N. 5 Clinical Report - Nurses [facility] Emergency Department [address] [place] [address] Phone #: ext- [phone] 12/17/2020 17:48 Patient: CAMILO LAWSON Sex: M : 1990 Age: 30y ( Call placed to Stefania at [facility] to confirm receipt of faxed chart. Chart faxed again to [phone] per request.). --04:59 12/18/20 Peggy Chapin R.N. The patient is sleeping. Overall patient status is improved. RESPIRATORY: No respiratory distress. SKIN: Skin is warm and dry. --04:59 12/18/20 Peggy Chapin R.N. ( Call placed to [facility], who verified that they did receive the fax, this time. Awaiting call back.). --05:21 12/18/20 Peggy Chapin R.N. The patient is sleeping. ( Call placed to [facility] Vice President Research at [phone]. Stefania states that Dr Sandra has not had a chance to look at the paperwork yet.). --05:55 12/18/20 Peggy Chapin R.N. ( 0615 no changes. Pt sleeping at long periods.). --06:48 12/18/20 Peggy Chapin R.N. ( 0715 pt resting on right side awaiting transfer t [facility], pt stating feeling antsy but feeling a lot better than last night). --07:19 12/18/20 Freddy Blanchard RN.DISPOSITION / DISCHARGE Report was given to a nurse via a phone call. Report was acknowledged. (Phuong Doe RN). --06:29 12/18/20 Peggy Chapin R.N. 06:29 12/18/2020 Site #1 removed upon transfer. --06:29 12/18/20 Peggy Chapin R.N. Condition at departure: stable. Transferred to [facility]. Visit overview, summary of care [...] Blanchard RN. 6 Clinical Report - Nurses [facility] Emergency Department [address] [place] [address] Phone #: ext- [phone] 12/17/2020 17:48 Patient: CAMILO LAWSON Sex: M : 1990 Age: 30yLocked/Released at 12/18/2020 08:38 by Freddy Blanchard RN Name Value Range Interpretation Code Description Data Cecy rce(s) Supporting Document(s) ID Date Data Source [id number] 12/17/2020 05:55:[address] [facility] 1 Clinical Report - Physicians/Mid Levels [facility] Emergency Department [address] [place] [address] Phone #: ext- [phone] 12/17/2020 17:48 [facility]: [id number] Sex: M : 1990 Age: 30y Time [...] daily. 2 Clinical Report - Physicians/Mid Levels [facility] Emergency Department [address] [place] [address] Phone #: ext- [phone] 12/17/2020 17:48 Patient: CAM[facility]O LAWSON [facility] [id number] Sex: M : 1990 Age: 30y Allergies: [...] 12/17/2020 23:41) In Progress Exam CHEST PORTABLE [facility] 3 Clinical Report - Physicians/Mid Levels [facility] Emergency Department [address] [place] [address] Phone #: ext [phone] 12/17/2020 17:48 Patient: CAMILO LAWSON Sex: M : 1990 Age: 30y [address] [place] [address] PHONE: [phone] FAX: [phone] Name .................. : BENJAMÍN Navarro Acct Number.................. : [id number] ROOM. ................. : TR-07 MR Number ................... : [id number] Stay type ............. : E/R Discharge Date......... ... : Admit Date ......... : 12/17/20 Admit Phys .................... : JUDY Cr Date of ....... : 1990 Family Phys ................... : NON STAFF Phone .................. : [phone] Age ................................ : 30 Film# .................. .:[id number] Sex ................................. : M Unsigned transcriptions are preliminary reports and do not represent a medical or legal document CHEST PORTABLE [id number] COMPLETE:12/17/20 20:14 5122 Reason(s): AMS PORTABLE CHEST [...] Negat 4 Clinical Report - Physicians/Mid Levels [facility] Emergency Department [address] [place] [address] Phone #: ext- [phone] 12/17/2020 17:48 Patient: CAMILO LAWSON Sex: M : 1990 Age: 30y BLOOD NEG (NORMAL: Negat LEUK EST NEG (NORMAL: Negat UROBILINOGEN NOR (less than 1.0 MICROSCOPIC Not IndicateAcetaminophen Level: (LULU: 12/17/2020 19:20) ( [facility] 12/17/2020 20:10) Final results Test Result Flag [...] Male GFR Interprentation 20-49 yrs >60 mL/min Clkmwr55-54 yrs >56 mL/min Normal 60-69 yrs >49 mL/min Normal 70-79yrs>42 mL/min Normal 80 and above >35 mL/min Normal Female GFRInterpretation 20-39 yrs >60 mL/min Normal 40-49 yrs >58 mL/minNormal 50-59 yrs >51 mL/min Normal 60-69 yrs >45 mL/min Jbnhqk22-10 yrs >39 mL/min Normal 80 and above >32 mL/min NormalCBC w Diff: (LULU: 12/17/2020 19:20) ( [facility] 12/17/[facility] 19:34) Final results Test Result Flag [...] 3.40) 5 Clinical Report - Physicians/Mid Levels [facility] Emergency Department [address] [place] [address] Phone #: ext- [phone] 12/17/2020 17:48 Patient: CAMILO LAWSON Sex: M : 1990 Age: 30y #MONO 0.43 10/uL (0.00 - 0.90) #EOS 0.09 10/uL (0.00 - 0.70) #BASO 0.04 10/uL (0.00 - 0.20) #IG 0.04 10/uL ( 0.00 - 0.10) #NRBC 0.00 10/uL (0.00 - 0.00) MANUAL DIFF NOT INDICATED RBC MORPH NOT INDICATEDSalicylate Level: (LULU: 12/17/2020 19:20) ( [facility] 12/17/2020 20:10) Final results Test Result Flag Units (Reference) SALICYLATE <0.3 L mg/dL (2.0 - 20.0)ETOH: (LULU: 12/17/2020 19:20) ( [facility] 12/17/2020 20:10) Final results Test Result Flag Units (Reference) ALCOHOL 265.0 MG/DL ALCOHOL % 0.27 H % (0.00 - 0.01) *FOR MEDICAL PURPOSES ONLY*TSH: (LULU: 12/17/2020 19:20) ( [facility] 12/17/2020 20:23) Final results Test Result Flag Units (Reference) TSH 0.47 uIU/mL (0.47 - 5.01)Drug Screen-Urine: (LULU: 12/17/2020 19:25) ( [facility] 12/17/2020 19:59) Final results Test Result Flag [...] HEALTH SYSTEM.COVID-19 CAH: (LULU: 12/17/2020 19:20) ( [facility] 12/17/2020 19:49) Final results Test Result Flag Units (Reference) COVID-19 NOT DETECTED COVID-19 REENTER NOT DETECTED { PROCEDURAL CONTROL VALID KIT LOT # [id number] 12/17/20.1947.JOVANNA. KIT EXP DATE _[id number] 70/25/21.JOVANNA. NORMAL RANGE IS NOT DETECTEDNEGATIVE RESULTS SHOULD BE TREATEDAS PRESUMPTIVE AND, IF INCONSISTENT WITHCLINICAL SIGNS AND SYMPTOMS OR NECESSARY FOR PATIENT MANAGEMENT, SHOULDBETESTED WITH DIFFERENT AUTHORIZED OR CLEARED MOLECULAR TESTS. NEGATIVE RESULTSDO NOT PRECLUDE [id number] AND SHOULD NOT BE USED THE SOLE BASISFOR PATIENT MANAGEMENT DECISIONS. 6 Clinical Report - Physicians/Mid Levels [facility] Emergency Department [address] [place] [address] Phone #: ext- [phone] 12/17/2020 17:48 Patient: CAMILO LAWSON Sex: M : 1990 Age: 30y.PROGRESS AND PROCEDURESCourse of Care: 18:47 12/17/20. Patient ambulatory without difficulty. No obvious injuries. He denies anyself injury. He currently has no complaints. 20:21 12/17/20. Patient is acting erratic. reporting feeling depressed. 06:36 12/18/20. Patient awake and requesting to go to [facility]. "Send me to [facility] or send me home" Patient's case discussed with ED physician at [facility] who is familiar with the patient. Dr. Sandra agrees to accept to patient to the ED. 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, associated with schizophrenia.(Electronically signed by Pedro Rizo 12/18/2020 06:44) Name Value Range Interpretation Code Description Data Cecy rce(s) Supporting Document(s) ID Date Data Source [id number] 12/18/2020 04:31:[address] [facility] Name Value Range Interpretation Code Description Data Cecy rce(s) Supporting Document(s) Ethanol [Moles/volume] in Blood 100.0 MG/DL [facility] ALCOHOL % 0.10 % 0.00 - 0.01 H [facility] *FOR MEDICAL PURPOSES ONLY * ID Date Data Source [id number] 12/17/2020 08:23:[address] [facility] Name Value Range Interpretation Code Description Data Cecy rce(s) Supporting Document(s) URINALYSIS [facility] ak[facility] URINALYSIS SOURCE R [facility] COLOR yellow NORMAL: Yellow [facility]ital CLARITY clear NORMAL: Clear [facility] sp[facility] Specific gravity of Urine by Test strip 1.010 1.001 - 1.[address] [facility] pH 7 5 - 9 [facility] Glucose [Mass/volume] in Urine by Test strip NORM N[facility]AL[facility] Bilirubin.total [Presence] in Urine by Test strip NEG NORMAL: Negative [facility] Ketones [Presence] in Urine by Test strip NEG NORMAL: Negative [facility] Protein [Mass/volume] in Urine by Test strip NEG NORMAL: [facility] Nitrite [Presence] in Urine by Test strip NEG NORMAL: Negative [facility] BLOOD NEG NORMAL: Negative [facility] Leukocyte esterase [Presence] in Urine by Test strip NEG [place] L: Negative [facility] Urobilinogen [Mass/volume] in Urine by Test strip NOR less alida n 1.0 mg/dL [facility] MICROSCOPIC Not Indicate [facility] ID Date Data Source [id number] 12/17/2020 07:58:[address] [facility] Name Value Range Interpretation Code Description Data Cecy rce(s) Supporting Document(s) DRUG SCREEN URINE [facility] URINE DRUG SCREEN Amphetamine [Presence] in Urine by Screen method NEGATIVE NORMAL: N EGATIVE [facility] BARBITURATES NEGATIVE NORMAL: NEGATIVE [facility] BENZO NEGATIVE NORMAL: NEGATIVE [facility] COCAINE NEGATIVE NORMAL: NEGATIVE [facility] Tetrahydrocannabinol [Presence] in Urine NEGATIVE NORMAL: NEGATIVE [facility] OPIATES NEGATIVE NORMAL: NEGATIVE [facility] Phencyclidine [Presence] in Urine by Screen method NEGATIVE NOR MAL: NEGATIVE [facility] \\BLDo\\URINE DRUG SCR EEN INTERPRETATION\\BLDx\\ THE CUTOFFF LEVELS FOR DETECTION ARE FOLLOWS: AMPHETAMINES 1000 ng/ml BARBITUARATES 200 ng/ml BENZODIAZEPINES 100 ng/ml THC 50 ng/ml PHENCYCLIDINE 25 ng/ml OPIATES 300 ng/ml COCAINE 300 ng/ml ALL POSITIVES ARE CONSIDERED PRESUMPTIVE POSITIVE CONFIRMATION WILL BE PERFORMED AT PHYSICIAN REQUEST. ID Date Data Source [id number] 12/17/2020 07:20:00 PM EST [facility] Name Value Range Interpretation Code Description Data Cecy rce(s) Supporting Document(s) COVID19 Case rprt NOT DETECTED [facility] This lab was ordered by [facility] and reported by [facility]. ID Date Data Source [id number] 12/17/2020 08:23:00 PM [facility] Name Value Range Interpretation Code Description Data Cecy rce(s) Supporting Document(s) Thyrotropin [Units/volume] in Serum or Plasma by Detec tion limit <= 0.05 mIU/L 0.47 uIU/mL 0.47 - 5.[address] [facility] ID Date Data Source [id number] 12/17/2020 08:10:00 PM [facility] Name Value Range Interpretation Code Description Data Cecy rce(s) Supporting Document(s) Ethanol [Moles/volume] in Blood 265.0 MG/DL [facility] ALCOHOL % 0.27 % 0.00 - 0.01 H [facility] ital *FOR MEDICAL PURPOSES ONLY * ID Date Data Source [id number] 12/17/2020 08:10:00 PM [facility] Name Value Range Interpretation Code Description Data Cecy rce(s) Supporting Document(s) BASIC METABOLIC PANEL [facility] BASIC METABOLIC PANEL Sodium [Moles/volume] in Serum or Plasma 142 mEq/L 134 - [address] [facility] Potassium [Moles/volume] in Serum or Plasma 3.3 mEq/L 3.6 - 5.[address] [facility] Chloride [Moles/volume] in Serum or Plasma 104 mEq/L 98 - [address] [facility] Carbon dioxide, total [Moles/volume] in Serum or Plasma 28 MEQ/L 22 - [address] [facility] Glucose [Mass/volume] in Serum or Plasma 91 MG/DL 70 - [address] [facility] BUN 5 MG/DL 7 - 21 L [facility] Creatinine [Mass/volume] in Serum or Plasma 0.6 MG/DL 0.7 - 1.[address] [facility] BUN/CREAT 8 8 - 27 [facility] Calcium [Mass/volume] in Serum or Plasma 9.0 MG/DL 8.4 - 10.[address] [facility] Anion gap 3 in Serum or Plasma 10.0 mmol/L 8.0 - 16.[address] [facility] AGE 30 yrs [facility] AFR AMER GFR >60 mL/min [facility] NON-AA GFR >60 mL/min [facility] ital Male GFR Inter prentation 20-49 yrs [...] >32 mL/min Normal ID Date Data Source [id number] 12/17/2020 08:10:00 PM [facility] Name Value Range Interpretation Code Description Data Cecy rce(s) Supporting Document(s) SALICYLATE <0.3 mg/dL 2.0 - 20.0 L [facility] ID Date Data Source [id number] 12/17/2020 08:10:00 PM [facility] Name Value Range Interpretation Code Description Data Cecy rce(s) Supporting Document(s) Acetaminophen [Presence] in Urine <5.0 UG/ML 0.0 - 30.[address] [facility] ID Date Data Source [id number] 12/17/2020 07:48:00 PM [facility] NOT DETECTEDNOT DETECTED{ PROC [facility] CONTROL VALID KIT LOT # [id number] 12/17/20.JOVANNA. KIT EXP DATE _[id number] 12/17/20.JOVANNA. NORMAL RANGE IS NOT DETECTEDNEGATIVE RESULTS [...] rce(s) Supporting Document(s) ID Date Data Source [id number] 12/17/2020 07:34:00 PM [facility] Name Value Range Interpretation Code Description Data Cecy rce(s) Supporting Document(s) CBC W/AUTOMATED DIFF [facility] COMPLETE BLOOD COUNT Leukocytes [#/volume] in Blood by Automated count 5.9 10^3/uL 4.2 - [address] [facility] Erythrocytes [#/volume] in Blood by Automated count 5.71 10^6/uL 4. 50 - 6.[address] [facility] Hemoglobin [Mass/volume] in Blood 18.0 g/dL 14.0 - 16.[address] [facility] Hematocrit [Volume Fraction] of Blood by Automated count 50.9 % 4 1.0 - 51.[address] [facility] Erythrocyte mean corpuscular volume [Entitic volume] by Auto mated count 89.1 fL 80.0 - 94.[address] [facility] Erythrocyte mean corpuscular hemoglobin [Entitic mass] by Automated count 31.5 pg 27.0 - 34.[address] [facility] Erythrocyte mean corpuscular hemoglobin concentration [Mass/volume] by Automated count 35.4 g/dL 31.0 - 36.[address] [facility] Erythrocyte distribution width [Ratio] by Automated count 12.6 % 11.5 - 14.[address] [facility] Platelets [#/volume] in Blood by Automated count 304 10^3/uL 150 - [address] [facility] Platelet mean volume [Entitic volume] in Blood by Automated count 9.2 fL 7.4 - 10.[address] [facility] Neutrophils/100 leukocytes in Blood by Automated count 46.7 % 37. 0 - 80.[address] [facility] Lymphocytes/100 leukocytes in Blood by Manual count 43.1 % 25.0 - 40.[address] [facility] Monocytes/100 leukocytes in Blood by Automated count 7.3 % 3.0 - 8.[address] [facility] Eosinophils/100 leukocytes in Blood by Automated count 1.5 % 0.0 - 7.[address] [facility] Basophils/100 leukocytes in Blood by Automated count 0.7 % 0.0 - 2.[address] [facility] %IG 0.7 % 0.0 - 0.0 [facility] %NRBC 0.0 % 0.0 - 0.0 [facility] al Neutrophils [#/volume] in Blood by Automated count 2.75 10^3/uL 2.00 - 6.[address] [facility] Lymphocytes [#/volume] in Blood by Automated count 2.54 10^3/uL 0.60 - 3.[address] [facility] Monocytes [#/volume] in Blood by Automated count 0.43 10^3/uL 0.00 - 0.[address] [facility] Eosinophils [#/volume] in Blood by Automated count 0.09 10^3/uL 0.00 - 0.[address] [facility] Basophils [#/volume] in Blood by Automated count 0.04 10^3/uL 0.00 - 0.[address] [facility] #IG 0.04 10^3/uL 0.00 - 0.10 [facility] #NRBC 0.00 10^3/uL 0.00 - 0.00 [facility] MANUAL DIFF NOT INDICATED [facility] RBC MORPH NOT INDICATED [facility] spital ID Date Data Source [id number] 11/19/2020 06:01:00 AM EST [facility] [address] [place] [address] RESPIRATORY CARE REPORT ==== ---------NAME------- NUMBER SEX AGE ADMIT DISC. XRAY# F/C JULIAN Navarro [id number] 30 11/17/20 11/18/20 [id number] XBE E/R DATE OF : 1990 M/R# [id number] #: [id number] TR-03 LOCATION: EMERGENCY DEPT EKG [id number] COMP LETE:11/18/20 01:52 VMT [id number] PHYSICIAN: JUDY Cr Name Value Range Interpretation Code Description Data Cecy rce(s) Supporting Document(s) ID Date Data Source [id number] 11/17/2020 10:05:[address] [facility] [address] [facility] Emergency Department [address] [place] [address] Phone #: ext- [phone] 11/17/2020 22:04 Patient: CAMILO LAWSON Sex: M : 1990 Age: 30yWEIGHT:83.9 kg HEIGHT:70 inches BMI:26.5ALLERGIES: No Known Drug AllergyCHIEF COMPLAINT: depressed, anxious, agitated, angryDIAGNOSIS: Depressive disorder, Bipolar disorderLAB ORDERSOrder Description Priority Entered Acknowledged [facility] 22:11/17/2020 22:32 Judy Dorado [...] Priority Entered Acknowledged InitialedMEDICATION/IV/DRIP/FLUID ORDERS [address] [facility] Emergency Department [address] [place] [address] Phone #: ext- [phone] 11/17/2020 22:04 Patient: [...] Value Range Interpretation Code Description [facility] Supporting Document(s) ID Date Data Source [id number] 11/17/2020 10:05:00 PM [facility] 1 Medication Reconciliation Report [facility] Emergency Department [address] [place] [address] Phone #: ext [phone] 11/17/2020 22:04 Patient: [...] Name Value Range Interpretation Code Description Data [facility](s) Supporting Document(s) ID Date Data Source [id number] 11/17/2020 10:05:00 PM [facility] 1 Medication Administration Record [facility] Emergency Department [address] [place] [address] Phone #: [phone]- [phone] 11/17/2020 22:04 Patient: CAMILO LAWSON Sex: M : 1990 Age: 30yWeight: 83.9 kgHeight/Length: 70 inBMI: 26.5ALLERGIES: No Known Drug Allergy Date/Time Medication Administered Medication OrderedGiven ACETAMINOPHEN [PO] Acetaminophen PO 1000 mg03:27 11/18/2020 Dose: 1000 mg Tablets PO (NOW x1)Shweta Dorado R.N. Name Value Range Interpretation Code Description Data Cecy rce(s) Supporting Document(s) ID Date Data Source [id number] 11/17/2020 10:05:00 PM [facility] [address] [facility] Emergency Department [address] [place] [address] Phone #: ext- [phone] 11/17/2020 22:04 Patient: CAMILO LAWSON Sex: M : 1990 Age: 30yAcute bipolar disorder with the current episode being severely manic without psychosis.Recurrent moderate major depressive disorder without psychosis.(Electronically signed by Pedro Rizo 11/18/2020 05:29) Name Value Range Interpretation Code Description Data Cecy rce(s) Supporting Document(s) ID Date Data Source [id number] 11/17/2020 10:05:00 PM [facility] 1 Clinical Report - Nurses [facility] Emergency Department [address] [place] [address] Phone #: ext [phone] 11/17/2020 22:04 Patient: [...] covid", "I wish I never met them".).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 --22:15 11/17/20 Shweta Dorado R.N.22:08 11/17/20. BP: [...] "Do you 2 Clinical Report - Nurses [facility] Emergency Department [address] [place] [address] Phone #: ext- [phone] 11/17/2020 22:04 Patient: CAMILO LAWSON Sex: M [...] this time to come back in the [place] ER and wait for transfer to another facility. Patient is c ooperative at this time.). --01:13 11/18/20 Shweta Dorado R.N. ( Patient is sleeping at this time.). --01:51 11/18/20 Shweta Dorado R.N. Patient waiting for disposition. ( Patient updated on plan of care, information has been faxed to [facility] for review. Patient is cooperative at [...] will make 3 Clinical Report - Nurses [facility] Emergency Department [address] [place] [address] Phone #: ext- [phone] 11/17/2020 22:04 Patient: CAMILO LAWSON Sex: M : 1990 Age: 30y aware.). Call light placed in reach. --03:12 11/18/20 Jordin Hitchcock 03:27 11/18/2020 Acetaminophen PO Tablets 1000 mg given. Allergies verified. Information reviewed with patient. --03:27 11/18/20 Shweta Dorado R.N. ( Attempted to call [facility] regarding transfer.). --04:45 11/18/20 Shweta Dorado R.N.DISPOSITION / DISCHARGE Departure time: 05:37 11/18/2020. Condition at departure: unchanged. Transferred to [facility]. Visit overview, summary of [...] rce(s) Supporting Document(s) ID Date Data Source [id number] 11/17/2020 10:05:[address] [facility] 1 Clinical Report - Physicians/Mid Levels [facility] Emergency Department [address] [place] [address] Phone #: ext- [phone] 11/17/2020 22:04 [facility]: [facility] LAW[id number]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 [facility] %IG 0.8 % 0.0 - 0.0 H [facility] %NRBC 0.0 % 0.0 - 0.0 [facility] al Neutrophils [#/volume] in Blood by Automated count 5.90 10^3/uL 2.00 - 6.[address] [facility] Lymphocytes [#/volume] in Blood by Automated count 2.46 10^3/uL 0.60 - 3.[address] [facility] Monocytes [#/volume] in Blood by Automated count 0.63 10^3/uL 0.00 - 0.[address] [facility] Eosinophils [#/volume] in Blood by Automated count 0.13 10^3/uL 0.00 - 0.[address] [facility] Basophils [#/volume] in Blood by Automated count 0.05 10^3/uL 0.00 - 0.[address] [facility] #IG 0.07 10^3/uL 0.00 - 0.10 [facility] #NRBC 0.00 10^3/uL 0.00 - 0.00 [facility] MANUAL DIFF NOT INDICATED [facility] RBC MORPH NOT INDICATED [facility] spital ID Date Data Source [id number] 08/31/2020 09:29:00 AM EST [facility] [address] [place] [address] RESPIRATORY CARE REPORT ==== ---------NAME------- NUMBER SEX AGE ADMIT DISC. XRAY# F/C JULIAN Navarro [id number] M 29 08/29/20 08/29/20 [id number] XBE E/R DATE OF : 1990 M/R# [id number] #: [id number] TR-03 LOCATION: EMERGENCY DEPT EKG 32744 COMP LETE:08/29/20 01:26 VMT [id number] PHYSICIAN: ANTHONY GODINEZ Name Value Range Interpretation Code Description Data Cecy rce(s) Supporting Document(s) ID Date Data Source [id number] 08/29/2020 12:13:00 AM EST [facility] [address] [facility] Emergency Department [address] [place] [address] Phone #: ext- [phone] 08/29/2020 00:12 Patient: [...] outweigh risks -- 00:37 08/29/[address] [facility] Emergency Department [address] [place] [address] Phone #: ext- [phone] 08/29/2020 00:12 Patient: [...] 08/29/2020 01:21 Prudencio Barry R.N. [address] [facility] Emergency Department [address] [place] [address] Phone #: ext- [phone] 08/29/2020 00:12 Patient: [...] rce(s) Supporting Document(s) ID Date Data Source [id number] 08/29/2020 12:13:00 AM [facility] 1 Medication Reconciliation Report [facility] Emergency Department [address] [place] [address] Phone #: ext- [phone] 08/29/2020 00:12 Patient: [...] rce(s) Supporting Document(s) ID Date Data Source [id number] 08/29/2020 12:13:00 AM [facility] 1 Medication Administration Record [facility] Emergency Department [address] [place] [address] Phone #: ext- [phone] 08/29/2020 00:12 Patient: CAMILO LAWSON Sex: M [...] rce(s) Supporting Document(s) ID Date Data Source [id number] 08/29/2020 12:13:00 AM EST [facility] [address] [facility] Emergency Department [address] [place] [address] Phone #: ext- [phone] 08/29/2020 00:12 Patient: [...] yourself at most times [address] [facility] Emergency Department [address] [place] [address] Phone #: ext- [phone] 08/29/2020 00:12 Patient: [...] providers about all of the prescription medicines, zouu-vmp-rhtbsyy medicines, vitamins, and supplements you take. Certain [...] operates a toll-free ADA information line at: [phone] (Voice); or [phone] (TTY). They can help you locate a local office.Follow-up careFollow up with your healthcare provider, or as advised.Call [phone] if any of these occur: You have suicidal thoughts, a suicide plan, and the means to carry out the plan Trouble breathing [address] [facility] Emergency Department [address] [place] [address] Phone #: ext- [phone] 08/29/2020 00:12 Patient: [...] who have expressed concern over your behavior [phone] [employer]. [address] [place] [address], [place] [address]. All rights reserved. This information is not intended as asubstitute for professional medical care. Always follow your healthcare professional's instructions. 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 --00:22 08/29/20 Carito Barry R.N.00:14 08/29/20. BP: [...] Carito Barry R.N.PROBLEMS:Insomnia: Chronic. --00:08/29/20 Carito Barry R.N.Upton disorder.Lifestyle / Substance Problems.Bipolar Disorder.Anxiety Reaction.ADHD - Attention Deficit Hyperactivity Disorder.Neurological Disease.Tension-Type Headache.Seizure Disorder.Seizure.STD - Sexually Transmitted Disease.Tendonitis.Tbi. 2 Clinical Report - Nurses [facility] Emergency Department [address] [place] [address] Phone #: ext- [phone] 08/29/2020 00:12 Patient: [facility]O LAWSON [id number] Sex: M : 1990 Age: 29yObsessive Compulsive [...] integrity risk 3 Clinical Report - Nurses [facility] Emergency Department [address] [place] [address] Phone #: ext- [phone] 08/29/2020 00:12 Patient: [...] Patient verbalized understanding. Written instructions provided in Scottish. The patient was discharged home. He left ambulatory and via taxi. 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 --03:44 08/29/20 Carito Barry R.N. 4 Clinical Report - Nurses [facility] Emergency Department [address] [place] [address] Phone #: ext- [phone] 08/29/2020 00:12 Patient: CAMILO LAWSON Sex: M : 1990 Age: 29y 03:44 08/29/20. BP: 126/82. MAP: 96. HR: 71. RR: 16. O2 saturation: 97% on room air. Temp: 98.1 F. Pain level now: 010. --03:44 08/29/20 Carito Barry R.N.Locked/Released at 08/29/2020 05:19 by Carito Barry R.N. Name Value Range Interpretation Code Description Data Cecy rce(s) Supporting Document(s) ID Date Data Source [id number] 08/29/2020 12:13:00 AM EST [facility] 1 Clinical Report - Physicians/Mid Levels [facility] Emergency Department [address] [place] [address] Phone #: ext- [phone] 08/29/2020 00:12 Patient: CAMILO LAWSON Sex: M [...] Abrasions 2 Clinical Report - Physicians/Mid Levels [facility] Emergency Department [address] [place] [address] Phone #: ext- [phone] 08/29/2020 00:12 Patient: [...] ABD //T// PELV W/O ORAL W/[place] [address] ---------N RYANN--------- NUMBER SEX AGE ADMIT DISC. XRAY# F/C TYPE MANTLE CAMILO D [id number] M 29 08/29/20 [id number] NA E/R DATE OF : 1990 M/R# [id number] #: [id number] TR-03 3 Clinical Report - Physicians/Mid Levels [facility] Emergency Department [address] [place] [address] Phone #: ext- [phone] 08/29/2020 00:12 Patient: CAMILO LAWSON Sex: M : 1990 Age: 29y LOCATION: EMERGENCY DEPT TRANSCRIBED: 08/29/20 2:[address] ABD //T// PELV W/[place] ORAL W/[place] [address] COMPLETED:08/29/20 2:18 RLB 24356 Reason(s): Trauma/Injury PHYSICIAN: ANTHONY BR = R [...] pathologyevident.IMPRESSION: 4 Clinical Report - Physicians/Mid Levels [facility] Emergency Department [address] [place] [address] Phone #: ext- [phone] 08/29/2020 00:12 Patient: [...] Finalresults Exam CT ST NECK W/O CONTRAST [address] [place] [address] ---------NAME--------- NUMBER SEX AGE ADMIT DISC. XRAY# F/C TYPE MANTLE CAMILO Navarro [id number] M 29 08/29/20 [id number] NA E/R DATE OF : 1990 M/R# [id number] #: [id number] TR-03 LOCATION: EMERGENCY DEPT TRANSCRIBED: 08/29/20 2:[address] NECK W/O CONTRAST 71957 COMPLETED:08/29/20 2:18 RLB 69548 Reason(s): Trauma/Injury PHYSICIAN: ANTHONY BR R A [...] gas. 5 Clinical Report - Physicians/Mid Levels [facility] Emergency Department [address] [place] [address] Phone #: ext- [phone] 08/29/2020 00:12 Patient: [...] Final results Exam CT THORAX W/[place] [address] ---------NAME--------- NUMBER SEX AGE ADMIT DISC. XRAY# F/C TYPE BENJAMÍN Navarro [id number] M 29 08/29/20 [id number] NA E/R DATE OF : 1990 M/R# [id number] #: [id number] TR-03 LOCATION: EMERGENCY DEPT TRANSCRIBED: 08/29/20 2:[address] THORAX W/O CONTRAST 01953 COMPLETED:08/29/20 2:18 RLB 78937 Reason(s): Trauma/Injury PHYSICIAN: ANTHONY BR R A [...] study provided. 6 Clinical Report - Physicians/Mid [facility] Emergency Department [address] [place] [address] Phone #: ext- [phone] 08/29/2020 00:12 Patient: [...] Date/Time: 08/29/20 02:56Urinalysis: (LULU: 08/29/2020 01:15) ( [facility] 08/29/2020 01:25) Final results Test Result Flag [...] NEGAT 7 Clinical Report - Physicians/Mid Levels [facility] Emergency Department [address] [place] [address] Phone #: ext- [phone] 08/29/2020 00:12 Patient: CAMILO LAWSON Sex: M [...] Male GFR Interprentation 20-49 yrs >60 mL/min Jhdxef04-22 yrs >56 mL/min Normal 60-69 yrs >49 mL/min Normal 70-79yrs>42 mL/min Normal 80 and above >35 mL/min Normal Female GFRInterpretation 20-39 yrs >60 mL/min Normal 40-49 yrs >58 mL/minNormal 50-59 yrs >51 mL/min Normal 60-69 yrs >45 mL/min Qbkhdi36-19 yrs >39 mL/min Normal 80 and above [...] 8 C linical Report - Physicians/Mid Levels [facility] Emergency Department [address] [place] [address] Phone #: ext- [phone] 08/29/2020 00:12 Patient: [...] NOT INDICATED Lipase: (LULU: 08/29/2020 01:35) ( [facility] 08/29/2020 02:03) Final results Test Result Flag Units (Reference) LIPASE 37 U/L (13 - 60) Lactic Acid: (LULU: 08/29/2020 01:35) ( [facility] 08/29/2020 01:45) Final results Test Result Flag [...] tendencies.). 9 Clinical Report - Physicians/Mid Levels [facility] Emergency Department [address] [place] [address] Phone #: ext- [phone] 08/29/2020 00:12 Patient: [...] rce(s) Supporting Document(s) ID Date Data Source [id number] 08/29/2020 02:56:00 [place] [address] ---------NAME--------- NUMBER SEX AGE ADMIT DISC. XRAY# F/C TYPE BENJAMÍN Navarro [id number] M 29 08/29/20 [id number] NA E/R DATE OF : 1990 M/R# [id number] #: [id number] TR-03 LOCATION: EMERGENCY DEPT TRANSCRIBED: 08/29/20 2:[address] THORAX W/O CONTRAST 96394 COMPLETED:08/29/20 2:18 RLB 66024 Reason(s): Trauma/Injury PHYSICIAN: ANTHONY BR R A [...] rce(s) Supporting Document(s) ID Date Data Source [id number] 08/29/2020 02:39:00 AM EST [address] [place] [address] ---------NAME--------- NUMBER SEX AGE ADMIT DISC. XRAY# F/C TYPE MANTLE CAMILO D [id number] M 29 08/29/20 [id number] NA E/R DATE OF : 1990 M/R# [id number] #: [id number] TR-03 LOCATION: EMERGENCY DEPT TRANSCRIBED: 08/29/20 2:[address] ABD //T// PELV W/[place] ORAL W/[place] [address] COMPLETED:08/29/20 2:18 RLB 41030 Reason(s): Trauma/Injury PHYSICIAN: ANTHONY BR======== R A [...] and/or the use of imperative reconstructivetechniques.Electronically Signed By:aJni Vera MD , RadiologistDate/Time: 08/29/20 02:39 Name Value Range Interpretation Code Description Data Cecy rce(s) Supporting Document(s) ID Date Data Source [id number] 08/29/2020 02:37:00 AM [facility] [address] [place] [address] ---------NAME--------- NUMBER SEX AGE ADMIT DISC. XRAY# F/C TYPE MANTLE CAMILO D [id number] M 29 08/29/20 [id number] NA E/R DATE OF : 1990 M/R# [id number] #: [id number] TR-03 LOCATION: EMERGENCY DEPT TRANSCRIBED: 08/29/20 2:[address] NECK W/O CONTRAST 11651 COMPLETED:08/29/20 2:18 RLB 89580 Reason(s): Trauma/Injury PHYSICIAN: ANTHONY BR R A [...] rce(s) Supporting Document(s) ID Date Data Source [id number] 08/29/2020 02:02:00 AM [facility] Name Value Range Interpretation Code Description Data Cecy rce(s) Supporting Document(s) Lipase [Enzymatic activity/volume] in Serum or Plasma 37 U/L 13 - [address] [facility] ID Date Data Source [id number] 08/29/2020 02:02:00 AM [facility] Name Value Range Interpretation Code Description Data Cecy rce(s) Supporting Document(s) COMPREHENSIVE METABOLIC PANEL [facility] COMPREHENSIVE METABOLIC PANEL Sodium [Moles/volume] in Serum or Plasma 136 mEq/L 134 - [address] [facility] Potassium [Moles/volume] in Serum or Plasma 3.8 mEq/L 3.6 - 5.[address] [facility] Chloride [Moles/volume] in Serum or Plasma 103 mEq/L 98 - [address] [facility] Carbon dioxide, total [Moles/volume] in Serum or Plasma 26 MEQ/L 22 - [address] [facility] Glucose [Mass/volume] in Serum or Plasma 106 MG/DL 65 - [address] [facility] BUN 14 MG/DL 7 - 21 [facility] Creatinine [Mass/volume] in Serum or Plasma 0.6 MG/DL 0.7 - 1.[address] [facility] BUN/CREAT 23 8 - 27 [facility] Protein [Mass/volume] in Serum or Plasma 6.6 G/DL 6.3 - 8.[address] [facility] Albumin [Mass/volume] in Serum or Plasma 4.3 G/DL 3.9 - 5.[address] [facility] Globulin [Mass/volume] in Serum by calculation 2.3 GM/DL 2.4 - 3.[address] [facility] A/G RATIO 1.9 0.8 - 2.0 [facility] Calcium [Mass/volume] in Serum or Plasma 9.3 MG/DL 8.4 - 10.[address] [facility] Bilirubin.total [Mass/volume] in Serum or Plasma 0.8 MG/DL 0.2 - 1.[address] [facility] Alkaline phosphatase [Enzymatic activity/volume] in Serum or Plasma 108 U/L 38 - [address] [facility] Aspartate aminotransferase [Enzymatic activity/volume] in Serum or Plasma 17 U/L 5 - [address] [facility] Alanine aminotransferase [Enzymatic activity/volume] in Seru m or Plasma 18 U/L 7 - [address] [facility] Anion gap 3 in Serum or Plasma 7.0 mmol/L 8.0 - 16.[address] [facility] AGE 29 yrs [facility] NON-AA GFR >60 mL/min [facility] ital AFR AMER GFR >60 mL/min [facility] [...] >32 mL/min Normal ID Date Data Source [id number] 08/29/2020 01:45:00 AM [facility] Name Value Range Interpretation Code Description Data Cecy rce(s) Supporting Document(s) Lactate [Moles/volume] in Serum or Plasma 1.0 MMOL/L 0.2 - 2.[address] [facility] ID Date Data Source [id number] 08/29/2020 01:42:00 AM [facility] Name Value Range Interpretation Code Description Data Cecy rce(s) Supporting Document(s) CBC W/AUTOMATED DIFF [facility] COMPLETE BLOOD COUNT Leukocytes [#/volume] in Blood by Automated count 8.4 10^3/uL 4.2 - [address] [facility] Erythrocytes [#/volume] in Blood by Automated count 4.97 10^6/uL 4. 50 - 6.[address] [facility] Hemoglobin [Mass/volume] in Blood 15.1 g/dL 14.0 - 16.[address] [facility] Hematocrit [Volume Fraction] of Blood by Automated count 43.8 % 4 1.0 - 51.[address] [facility] Erythrocyte mean corpuscular volume [Entitic volume] by Auto mated count 88.1 fL 80.0 - 94.[address] [facility] Erythrocyte mean corpuscular hemoglobin [Entitic mass] by Automated count 30.4 pg 27.0 - 34.[address] [facility] Erythrocyte mean corpuscular hemoglobin concentration [Mass/volume] by Automated count 34.5 g/dL 31.0 - 36.[address] [facility] Erythrocyte distribution width [Ratio] by Automated count 12.6 % 11.5 - 14.[address] [facility] Platelets [#/volume] in Blood by Automated count 258 10^3/uL 150 - [address] [facility] Platelet mean volume [Entitic volume] in Blood by Automated count 9.9 fL 7.4 - 10.[address] [facility] Neutrophils/100 leukocytes in Blood by Automated count 59.4 % 37. 0 - 80.[address] [facility] Lymphocytes/100 leukocytes in Blood by Manual count 28.6 % 25.0 - 40.[address] [facility] Monocytes/100 leukocytes in Blood by Automated count 8.9 % 3.0 - 8.[address] [facility] Eosinophils/100 leukocytes in Blood by Automated count 2.1 % 0.0 - 7.[address] [facility] Basophils/100 leukocytes in Blood by Automated count 0.6 % 0.0 - 2.[address] [facility] %IG 0.4 % 0.0 - 0.0 [facility] %NRBC 0.0 % 0.0 - 0.0 [facility] al Neutrophils [#/volume] in Blood by Automated count 4.99 10^3/uL 2.00 - 6.[address] [facility] Lymphocytes [#/volume] in Blood by Automated count 2.40 10^3/uL 0.60 - 3.[address] [facility] Monocytes [#/volume] in Blood by Automated count 0.75 10^3/uL 0.00 - 0.[address] [facility] Eosinophils [#/volume] in Blood by Automated count 0.18 10^3/uL 0.00 - 0.[address] [facility] Basophils [#/volume] in Blood by Automated count 0.05 10^3/uL 0.00 - 0.[address] [facility] #IG 0.03 10^3/uL 0.00 - 0.10 [facility] #NRBC 0.00 10^3/uL 0.00 - 0.00 [facility] MANUAL DIFF NOT INDICATED [facility] RBC MORPH NOT INDICATED [facility] spital ID Date Data Source [id number] 08/29/2020 01:40:[address] [facility] Name Value Range Interpretation Code Description Data Cecy rce(s) Supporting Document(s) DRUG SCREEN URINE [facility] URINE DRUG SCREEN Amphetamine [Presence] in Urine by Screen method NEGATIVE NORMAL: N EGATIVE [facility] BARBITURATES NEGATIVE NORMAL: NEGATIVE [facility] BENZO NEGATIVE NORMAL: NEGATIVE [facility] COCAINE NEGATIVE NORMAL: NEGATIVE [facility] Tetrahydrocannabinol [Presence] in Urine NEGATIVE NORMAL: NEGATIVE [facility] OPIATES NEGATIVE NORMAL: NEGATIVE [facility] Phencyclidine [Presence] in Urine by Screen method NEGATIVE NOR MAL: NEGATIVE [facility] \\BLDo\\URINE DRUG SCR EEN INTERPRETATION\\BLDx\\ THE CUTOFFF LEVELS FOR DETECTION ARE FOLLOWS: AMPHETAMINES 1000 ng/ml BARBITUARATES 200 ng/ml BENZODIAZEPINES 100 ng/ml THC 50 ng/ml PHENCYCLIDINE 25 ng/ml OPIATES 300 ng/ml COCAINE 300 ng/ml ALL POSITIVES ARE CONSIDERED PRESUMPTIVE POSITIVE CONFIRMATION WILL BE PERFORMED AT PHYSICIAN REQUEST. ID Date Data Source [id number] 08/29/2020 01:25:00 AM [facility] Name Value Range Interpretation Code Description Data Cecy rce(s) Supporting Document(s) URINALYSIS [facility] akanksha URINALYSIS SOURCE R [facility] COLOR yellow NORMAL: Yellow [facility] CLARITY clear NORMAL: Clear [facility] Specific gravity of Urine by Test strip 1.010 1.001 - 1.[address] [facility] pH 6.5 5 - 9 [facility] Glucose [Mass/volume] in Urine by Test strip NORM NORMAL: Negat [facility] Bilirubin.total [Presence] in Urine by Test strip NEG NORMAL: Negative [facility] Ketones [Presence] in Urine by Test strip NEG NORMAL: Negative [facility] Protein [Mass/volume] in Urine by Test strip NEG NORMAL: Negat [facility] Nitrite [Presence] in Urine by Test strip NEG NORMAL: Negative [facility] BLOOD NEG NORMAL: Negative [facility] Leukocyte esterase [Presence] in Urine by Test strip NEG [place] L: Negative [facility] Urobilinogen [Mass/volume] in Urine by Test strip NOR less alida n 1.0 mg/dL [facility] MICROSCOPIC Not Indicate [facility] ID Date Data Source [id number] 08/19/2020 01:52:52 PM EDT [facility] Vital SignsBlood Pressure: 138/82 Patient History Medical History:Brain TumorSeizure DisorderDepressionHx of kidney stonesBipolarSurgical History:Partial lobectomyFamily History:No known family historySocial/Personal History: Smoking Status: current some day smokerDo you vape? NoCurrent Problems: Normal examination (ICD-V65.5) (YFB33-P07.1)Dental caries/Impaction of teeth (ICD-521.00) (VBT33-O62.9)Contact dermatitis and other eczema, unspecified cause (ICD-692.9) (ATD01-B39.9)Depression (ICD-311) (LVG38-L74.9)Seizure Disorder (ICD-780.39) (WUR00-Z24.9)Brain Tumor (ICD-191.9) (UHH95-F23.9)Problem list reviewed during this update.Current Medications: SEROQUEL [...] ; yany (Aug 20 2020 7:29AM): [facility](-). CC: none. Reviewed Xrays. Exam: caries detected. [...] Known Allergies (updated 08/19/2020) Orders:Oral Surgery Referral [[id number]] Clinical Visit Summary Declined Name Value Range Interpretation Code Description Data Cecy rce(s) Supporting Document(s) ID Date Data Source [id number] 08/14/2020 07:17:[address] [facility] 1 Medication Reconciliation Report [facility] Emergency Department [address] [place] [address] Phone #: ext- [phone] 08/14/2020 19:09 Patient: [...] sault(s) Supporting Document(s) ID Date Data Source [id number] 08/14/2020 07:17:[address] [facility] 1 Medication Administration Record [facility] Emergency Department [address] [place] [address] Phone #: ext- [phone] 19:09 Patient: CAMILO LAWSON Sex: M : 1990 Age: 29yWeight: 81.6 kgHeight/Length: 72 inBMI: 24.4ALLERGIES: No Known Drug AllergyDate/Time Medication Administered Medication Ordered Name Value Range Interpretation Code Description Data [facility](s) Supporting Document(s) ID Date Data Source [id number] 08/14/2020 07:17:[address] [facility] [address] [facility] Emergency Department [address] [place] [address] Phone #: ext- [phone] 08/14/2020 19:09 Patient: CAMILO LAWSON Sex: M : 1990 Age: 29y Anxiety reaction. No hyperventilation.INSTRUCTIONS Warnings: GENERAL WARNINGS: Return or contact your physician immediately if your condition worsens or changes unexpectedly, if not improving as expected, or if other problems arise. Understanding of the discharge instructions verbalized by patient. Follow-up with: [facility], , , [address] [place], [address] Follow up in one week. Call for [...] may experience: Dry mouth [address] [facility] Emergency Department [address] [place] [address] Phone #: ext- [phone] 08/14/2020 19:09 Patient: [...] Also, there are certain [address] [facility] Emergency Department [address] [place] [address] Phone #: ext- [phone] 08/14/2020 19:09 Patient: [...] andtemporary medicine to help you manage stress.Call [phone] if any of these happen: Trouble breathing [...] and mild pain reliever [address] [facility] Emergency Department [address] [place] [address] Phone #: ext- [phone] 08/14/2020 19:09 Patient: CAMILO LAWSON Sex: M : 1990 Age: 29y [id number] [employer]. [address] [place] [address]. All rights reserved. This information is not intended as asubstitute for professional medical care. Always follow your healthcare professional's instructions. You have been given the following additional information: Anxiety Reaction(Electronically signed by Pedro Rizo, 08/14/2020 20:15) Name Value Range Interpretation Code Description Data Cecy rce(s) Supporting Document(s) ID Date Data Source [id number] 08/14/2020 07:17:[address] [facility] 1 Clinical Report - Nurses [facility] Emergency Department [address] [place] [address] Phone #: ext- [phone] 08/14/2020 19:09 Patient: [...] no barriers. 2 Clinical Report - Nurses [facility] Emergency Department [address] [place] [address] Phone #: ext- [phone] 08/14/2020 19:09 [facility]: [id number] Sex: M : 1990 Age: 29y FALL RISK ASSESSMENT: Fall risk assessment completed. No risk factors identified. SKIN INTEGRITY ASSESSMENT: Skin integrity risk assessment completed. No skin integrity risk identified. --19:30 08/14/20 Alfonso Buck R.N. FAMILY HX: No significant family medical history. --19:53 08/14/20 Pedro Rizo.PHYSICAL [id number] 08/14/20. Ambulatory to room.GENERAL / NEURO / [...] Patient verbalized understanding. Written instructions provided in Scottish. The patient was discharged home and unaccompanied at time of discharge. He left ambulatory and via taxi. 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 --20:04 08/14/20 Carito Barry R.N. 20:03 08/14/20. BP: 141/93. MAP: 109. HR: 81. RR: 16. O2 saturation: 98%. Temp: 97.9 F. Pain level now: 0/10. --20:04 08/14/20 Carito Barry R.N.Locked/Released at 08/14/2020 20:04 by Carito Barry R.N. Name Value Range Interpretation Code Description Data Cecy rce(s) Supporting Document(s) ID Date Data Source [id number] 08/14/2020 07:17:[address] [facility] 1 Clinical Report - Physicians/Mid Levels [facility] Emergency Department [address] [place] [address] Phone #: ext- [phone] 08/14/2020 19:09 Patient: CAMILO LAWSON Sex: M [...] alone. 2 Clinical Report - Physicians/Mid Levels [facility] Emergency Department [address] [place] [address] Phone #: ext- [phone] 08/14/2020 19:09 Patient: CAMILO LAWSON Sex: M [...] patient. 3 Clinical Report - Physicians/Mid Levels [facility] Emergency Department [address] [place] [address] Phone #: ext- [phone] 08/14/2020 19:09 Patient: CAMILO LAWSON Sex: M : 1990 Age: 29y Follow-up with: [facility], , , [address] [facility], , [place], [address] Follow up in one week. Call for an appointment.(Electronically signed by Pedro Rizo, 08/14/2020 20:15) Name Value Range Interpretation Code Description Data Cecy rce(s) Supporting Document(s) Procedure Social History Code Duration Value Status Description Data Source(s ) Smoking 09/21/2021 12:00:00 AM EST Smoker, current status unkn own completed Smoker, current status unknown [facility]) Smoking 08/30/2021 12:00:00 AM EST Smoker, current status unkn own completed Smoker, current status unknown [facility] ([facility]) Smoking 07/20/2021 12:00:00 AM EDT Smoker, current status unkn own completed Smoker, current status unknown [facility] ([facility]) Smoking 07/05/2021 12:00:00 AM EDT Smoker, current status unkn own completed Smoker, current status unknown [facility] ([facility]) Smoking 03/29/2021 12:00:00 AM EDT Smoker, current status unkn own completed Smoker, current status unknown [facility] ([facility]) Smoking 02/17/2021 12:00:00 AM EDT Smoker, current status unkn own completed Smoker, current status unknown [facility] ([facility]) Smoking 01/01/2021 12:00:00 AM EST Smoker, current status unkn own completed Smoker, current status unknown [facility] ([facility]) Smoking 11/17/2020 12:00:00 AM EST Smoker, current status unkn own completed Smoker, current status unknown [facility] ([facility]) Smoking 11/02/2020 12:00:00 AM EST Smoker, current status unkn own completed Smoker, current status unknown [facility] ([facility]) Smoking 10/20/2020 12:00:00 AM EST Smoker, current status unkn own completed Smoker, current status unknown [facility] ([facility]) Smoking 09/24/2020 12:00:00 AM EST Smoker, current status unkn own completed Smoker, current status unknown [facility] ([facility]) Smoking 09/02/2020 12:00:00 AM EST Smoker, current status unkn own completed Smoker, current status unknown [facility] ([facility]) Smoking 08/19/2020 12:00:00 AM EDT Smoker, current status unkn own completed Smoker, current status unknown [facility] ([facility]) Smoking 08/18/2020 12:00:00 AM EDT Smoker, current status unkn own completed Smoker, current status unknown [facility] ([facility]) Smoking 07/29/2020 12:00:00 AM EDT Smoker, current status unkn own completed Smoker, current status unknown [facility] ([facility])
[2021-09-25 00:29] LABS: HEMATOCRIT 42.6 % (42.0-52.0); HEMOGLOBIN 14.3 g/dl (13.5-17.5); MEAN CORPUSCULAR HEMOGLOBIN 30.6 pg (27.0-33.0); MEAN CORPUSCULAR HGB CONC 33.6 g/dl (32.0-36.5); MEAN CORPUSCULAR VOLUME 91.2 fl (80.0-96.0); PLATELET COUNT, AUTOMATED 294 10^3/uL (150-450); RED BLOOD COUNT 4.67 10^6/uL (4.30-6.10); WHITE BLOOD COUNT 8.7 10^3/uL (4.0-10.0)
[2021-09-25 00:55] LABS: AMPHETAMINES LEVEL URINE NEGATIVE (NEGATIVE); BARBITURATES URINE NEGATIVE (NEGATIVE); BENZODIAZEPINES URINE NEGATIVE (NEGATIVE); CANNABINOIDS URINE POSITIVE (NEGATIVE); COCAINE METABOLITE URINE NEGATIVE (NEGATIVE); METHADONE URINE NEGATIVE (NEGATIVE); OPIATES URINE NEGATIVE (NEGATIVE); PHENCYCLIDINE URINE NEGATIVE (NEGATIVE)
[2021-09-25 01:05] LABS: ACETAMINOPHEN LEVEL < 2.0 UG/ML (10.0-30.0); ALBUMIN 3.7 GM/DL (3.2-5.2); ALT/SGPT 34 U/L (12-78); BILIRUBIN,DIRECT 0.2 MG/DL (0.0-0.2); BILIRUBIN,TOTAL 0.7 MG/DL (0.2-1.0); BLOOD UREA NITROGEN 11 MG/DL (7-18); CALCIUM LEVEL 8.1 MG/DL (8.5-10.1); CARBON DIOXIDE LEVEL 25 MEQ/L (21-32); CHLORIDE LEVEL 110 MEQ/L (98-107); CREATININE FOR GFR 0.66 MG/DL (0.70-1.30); ETHYL ALCOHOL (ETHANOL) < 0.003 % (0.000-0.010); GLOMERULAR FILTRATION RATE > 60.0 (>60); GLUCOSE, FASTING 89 MG/DL (70-100); POTASSIUM SERUM 3.8 MEQ/L (3.5-5.1); SALICYLATE LEVEL < 1.7 MG/DL (5.0-30.0); SODIUM LEVEL 141 MEQ/L (136-145); TOTAL PROTEIN 6.5 GM/DL (6.4-8.2)
[2021-09-25 01:25] LABS: RSV AMPLIFICATION NEGATIVE (NEGATIVE)
[2021-09-25 02:35] VITALS: BP 144/62
--- NOTE | 2021-09-25 07:35 | ECGEPIP ---
[facility] - ED Test Date: 2021-09-25 Pat Name: CAMILO BUTTS Department: Room: - Gender: Male Donations Attendant: VIVI : 1990 Requested By: ISAAK Navarro Order Number: [id number] Reading MD: Shweta Peoples Measurements Intervals [place] Rate: 68 P: 17 NC: 168 QRS: 47 QRSD: 96 T: 4 QT: 402 QTc: 427 Interpretive Statements Normal sinus rhythm NSTTW abnormalities decreased rate 05/27/21 Electronically Signed on 09-25-2021 7:35:35 EST by Shweta Peoples
== END 2021-09-25 03:06 | disposition home or self-care (01) ==
LOC: M ED 22:22
DX: R45.850 Homicidal ideations (principal); R45.851 Suicidal ideations; F31.9 Bipolar disorder, unspecified

== ENCOUNTER 2021-09-29 17:45 | Inpatient (IN) | payer MEDICAID ==
[~2021-09-29] VITALS: Ht 175.3 cm; Wt 81.9 kg
[~2021-09-29 17:45] MED LIST changes: -HALO1TA PO; +HALO1TAB PO
[2021-09-29] MEDS ORDERED: QUET300T2 PO (17:57)
[2021-09-29] MEDS ORDERED: DIVA500T9 PO (17:57)
[2021-09-29 20:43] LABS: HEMATOCRIT 45.4 % (42.0-52.0); HEMOGLOBIN 15.1 g/dl (13.5-17.5); MEAN CORPUSCULAR HEMOGLOBIN 30.9 pg (27.0-33.0); MEAN CORPUSCULAR HGB CONC 33.3 g/dl (32.0-36.5); PLATELET COUNT, AUTOMATED 256 10^3/uL (150-450); RED BLOOD COUNT 4.88 10^6/uL (4.30-6.10); WHITE BLOOD COUNT 6.6 10^3/uL (4.0-10.0)
[2021-09-29 21:13] LABS: ACETAMINOPHEN LEVEL < 2.0 UG/ML (10.0-30.0); ALBUMIN 3.8 GM/DL (3.2-5.2); ALT/SGPT 41 U/L (12-78); BILIRUBIN,DIRECT 0.2 MG/DL (0.0-0.2); BILIRUBIN,TOTAL 0.5 MG/DL (0.2-1.0); BLOOD UREA NITROGEN 15 MG/DL (7-18); CALCIUM LEVEL 9.7 MG/DL (8.5-10.1); CARBON DIOXIDE LEVEL 27 MEQ/L (21-32); CHLORIDE LEVEL 106 MEQ/L (98-107); CREATININE FOR GFR 0.78 MG/DL (0.70-1.30); ETHYL ALCOHOL (ETHANOL) < 0.003 % (0.000-0.010); GLOMERULAR FILTRATION RATE > 60.0 (>60); GLUCOSE, FASTING 95 MG/DL (70-100); POTASSIUM SERUM 4.3 MEQ/L (3.5-5.1); SALICYLATE LEVEL < 1.7 MG/DL (5.0-30.0); SODIUM LEVEL 140 MEQ/L (136-145)
[2021-09-29 21:24] LABS: AMPHETAMINES LEVEL URINE NEGATIVE (NEGATIVE); BARBITURATES URINE NEGATIVE (NEGATIVE); BENZODIAZEPINES URINE NEGATIVE (NEGATIVE); CANNABINOIDS URINE NEGATIVE (NEGATIVE); COCAINE METABOLITE URINE NEGATIVE (NEGATIVE); METHADONE URINE NEGATIVE (NEGATIVE); OPIATES URINE NEGATIVE (NEGATIVE); PHENCYCLIDINE URINE NEGATIVE (NEGATIVE)
[2021-09-30] MEDS ORDERED: OLANZapine ORAL DISINTEGRATING TAB 5MG PO ONE (14:00)
[2021-10-01 13:22] LABS: RSV AMPLIFICATION NEGATIVE (NEGATIVE)
[2021-10-01] MEDS ORDERED: OLANZapine ORAL DISINTEGRATING TAB 5MG PO PRN (13:55)
[2021-10-01] MEDS ORDERED: traZODone 50 MG TAB PO PRN (13:55)
[2021-10-01] MEDS ORDERED: MOM 30ML SUSPENSION UDC PO PRN (13:55)
[2021-10-01] MEDS ORDERED: ACETAMINOPHEN TAB 650MG DOSE (2X325MG) PO PRN (13:55)
[2021-10-01] MEDS ORDERED: MAALOX 30 ML SUSP *UDC PO PRN (13:55)
[2021-10-01] MEDS ORDERED: HOME MED LIST COMPLETE! XX SCH (14:10)
[2021-10-01 17:06] VITALS: BP 127/82
[2021-10-01] MEDS ORDERED: LORazepam 2 MG/ML VIAL IM STA (18:19)
[2021-10-01] MEDS ORDERED: HALOPERIDOL 5MG/ML VIAL (J1630 PER 1) IM STA (18:19)
[2021-10-01] MEDS ORDERED: diphenhydrAMINE 50MG/ML VIAL (J1200) IM STA (18:19)
[2021-10-01 18:45] VITALS: BP 142/82
[2021-10-01 19:00] VITALS: BP 142/82
[2021-10-01] MEDS ORDERED: QUEtiapine FUMARATE 100 MG TAB PO SCH (21:00)
[2021-10-01] MEDS: DIVALPROEX 500MG *ER* TAB PO SCH (21:00)
[2021-10-02] MEDS ORDERED: OLANZapine ORAL DISINTEGRATING TAB 5MG PO ONE (16:00)
[2021-10-02 19:12] VITALS: BP 141/78
[2021-10-02] MEDS: DIVALPROEX 500MG *ER* TAB PO SCH (21:57)
[2021-10-02] MEDS: OLANZapine 10 MG TAB PO SCH (21:58)
[2021-10-02] MEDS: QUEtiapine FUMARATE 100 MG TAB PO SCH (21:58)
[2021-10-03] MEDS ORDERED: DIVALPROEX 250 MG TAB PO SCH (09:00)
[2021-10-03] MEDS: OLANZapine 10 MG TAB PO SCH ×2 (09:09→20:05)
[2021-10-03] MEDS: QUEtiapine FUMARATE 100 MG TAB PO SCH (20:05)
[2021-10-03] MEDS: DIVALPROEX 500MG *ER* TAB PO SCH (20:05)
[2021-10-04 06:54] VITALS: BP 137/92
[2021-10-04] MEDS: DIVALPROEX 500MG *ER* TAB PO SCH (10:47)
[2021-10-04] MEDS: OLANZapine 10 MG TAB PO SCH (10:47)
[2021-10-04] MEDS ORDERED: QUET100T2 PO (12:12)
[2021-10-04] MEDS ORDERED: OLAN1TAB20 PO (12:12)
[2021-10-04] MEDS ORDERED: DEPA500T2 PO (12:12)
[2021-10-04 13:34] LABS: BILIRUBIN,DIRECT 0.2 MG/DL (0.0-0.2); BILIRUBIN,TOTAL 0.6 MG/DL (0.2-1.0); CHOLESTEROL RISK RATIO 3.489 (<5)
== END 2021-10-04 14:45 | disposition home or self-care (01) | DRG 753 ==
LOC: M ED 17:45 → M ED INP 10-01 13:51 → M PSY 10-01 15:57
PROVIDERS: ADMIT Psychiatry & Neurology Psychiatry; ATTEND Student in an Organized Health Care Education/Training Program
DX: F31.9 Bipolar disorder, unspecified (principal); F63.81 Intermittent explosive disorder; F60.9 Personality disorder, unspecified; Z87.820 Personal history of traumatic brain injury; Z78.1 Physical restraint status; G40.909 Epilepsy, unspecified, not intractable, without status epilepticus; G43.909 Migraine, unspecified, not intractable, without status migrainosus; F10.10 Alcohol abuse, uncomplicated; F41.9 Anxiety disorder, unspecified; F32.A Depression, unspecified; F90.9 Attention-deficit hyperactivity disorder, unspecified type; G47.00 Insomnia, unspecified; F42.9 Obsessive-compulsive disorder, unspecified; Z79.899 Other long term (current) drug therapy; Z20.822 Contact with and (suspected) exposure to COVID-19

== ENCOUNTER 2021-10-14 19:06 | Emergency (ER) | payer MEDICAID ==
[~2021-10-14] VITALS: Ht 175.3 cm; Wt 81.9 kg
[~2021-10-14 19:06] MED LIST changes: +DIVA500T9 PO; +HALO1TA PO; -HALO1TAB PO; +OLAN1TAB20 PO
[2021-10-14 21:18] VITALS: BP 156/90
== END 2021-10-14 21:23 | disposition home or self-care (01) ==
LOC: M ED 19:06
DX: Z04.6 Encounter for general psychiatric examination, requested by authority (principal); F43.0 Acute stress reaction; F90.9 Attention-deficit hyperactivity disorder, unspecified type; F42.9 Obsessive-compulsive disorder, unspecified; F31.9 Bipolar disorder, unspecified; Z79.899 Other long term (current) drug therapy

== ENCOUNTER 2021-10-16 15:06 | Emergency (ER) | payer MEDICAID ==
[~2021-10-16] VITALS: Ht 185.4 cm; Wt 85.2 kg
[2021-10-16 15:06] VITALS: BP 139/92
== END 2021-10-16 16:56 | disposition home or self-care (01) ==
LOC: M ED 15:06
DX: F43.0 Acute stress reaction (principal); F31.9 Bipolar disorder, unspecified; F10.10 Alcohol abuse, uncomplicated; F90.9 Attention-deficit hyperactivity disorder, unspecified type; F42.9 Obsessive-compulsive disorder, unspecified; F17.200 Nicotine dependence, unspecified, uncomplicated; Z79.899 Other long term (current) drug therapy; Z86.011 Personal history of benign neoplasm of the brain; Z98.890 Other specified postprocedural states; Z87.442 Personal history of urinary calculi

== ENCOUNTER 2021-11-04 18:34 | Emergency (ER) | payer MEDICAID ==
[~2021-11-04] VITALS: Ht 177.8 cm; Wt 87.7 kg
[~2021-11-04 18:34] MED LIST changes: -HALO1TA PO; +HALO1TAB PO
[2021-11-04 18:46] VITALS: BP 148/79
== END 2021-11-05 00:25 | disposition home or self-care (01) ==
LOC: M ED 18:34
DX: F43.20 Adjustment disorder, unspecified (principal); F31.9 Bipolar disorder, unspecified; F10.10 Alcohol abuse, uncomplicated; Z79.899 Other long term (current) drug therapy

== ENCOUNTER 2021-11-08 20:57 | Emergency (ER) | payer MEDICAID ==
[~2021-11-08] VITALS: Ht 177.8 cm; Wt 80.9 kg
== END 2021-11-09 01:00 | disposition home or self-care (01) ==
LOC: M ED 20:57
DX: F23 Brief psychotic disorder (principal); F43.20 Adjustment disorder, unspecified; F20.9 Schizophrenia, unspecified; F19.10 Other psychoactive substance abuse, uncomplicated; Z79.899 Other long term (current) drug therapy

== ENCOUNTER 2021-11-12 02:11 | Emergency (ER) | payer MEDICAID ==
[~2021-11-12] VITALS: Ht 182.9 cm; Wt 80.9 kg
[2021-11-12 03:12] LABS: HEMATOCRIT 48.3 % (42.0-52.0); HEMOGLOBIN 16.4 g/dl (13.5-17.5); MEAN CORPUSCULAR HEMOGLOBIN 30.9 pg (27.0-33.0); PLATELET COUNT, AUTOMATED 282 10^3/uL (150-450); RED BLOOD COUNT 5.31 10^6/uL (4.30-6.10); WHITE BLOOD COUNT 8.2 10^3/uL (4.0-10.0)
[2021-11-12 03:29] LABS: AMPHETAMINES LEVEL URINE NEGATIVE (NEGATIVE); BARBITURATES URINE NEGATIVE (NEGATIVE); BENZODIAZEPINES URINE NEGATIVE (NEGATIVE); CANNABINOIDS URINE NEGATIVE (NEGATIVE); COCAINE METABOLITE URINE NEGATIVE (NEGATIVE); METHADONE URINE NEGATIVE (NEGATIVE); OPIATES URINE NEGATIVE (NEGATIVE); PHENCYCLIDINE URINE NEGATIVE (NEGATIVE)
[2021-11-12 03:43] LABS: ACETAMINOPHEN LEVEL < 2.0 UG/ML (10.0-30.0); ALBUMIN 3.9 GM/DL (3.2-5.2); ALT/SGPT 35 U/L (12-78); BILIRUBIN,DIRECT 0.1 MG/DL (0.0-0.2); BILIRUBIN,TOTAL 0.4 MG/DL (0.2-1.0); BLOOD UREA NITROGEN 12 MG/DL (7-18); CALCIUM LEVEL 8.5 MG/DL (8.5-10.1); CARBON DIOXIDE LEVEL 31 MEQ/L (21-32); CHLORIDE LEVEL 108 MEQ/L (98-107); CREATININE FOR GFR 0.87 MG/DL (0.70-1.30); ETHYL ALCOHOL (ETHANOL) 0.103 % (0.000-0.010); GLOMERULAR FILTRATION RATE > 60.0 (>60); GLUCOSE, FASTING 77 MG/DL (70-100); POTASSIUM SERUM 3.6 MEQ/L (3.5-5.1); SALICYLATE LEVEL < 1.7 MG/DL (5.0-30.0); SODIUM LEVEL 145 MEQ/L (136-145); TOTAL PROTEIN 7.1 GM/DL (6.4-8.2)
[2021-11-12 10:12] VITALS: BP 143/94
== END 2021-11-12 12:01 | disposition home or self-care (01) ==
LOC: M ED 02:11
DX: F19.129 Other psychoactive substance abuse with intoxication, unspecified (principal); F10.129 Alcohol abuse with intoxication, unspecified; Z79.899 Other long term (current) drug therapy

== ENCOUNTER 2021-11-27 17:11 | Emergency (ER) | payer MEDICAID ==
[~2021-11-27] VITALS: Ht 177.8 cm; Wt 79.5 kg
[2021-11-27 17:31] VITALS: BP 136/88
[2021-11-27 17:50] LABS: HEMATOCRIT 44.9 % (42.0-52.0); HEMOGLOBIN 15.4 g/dl (13.5-17.5); MEAN CORPUSCULAR HGB CONC 34.3 g/dl (32.0-36.5); MEAN CORPUSCULAR VOLUME 90.5 fl (80.0-96.0); PLATELET COUNT, AUTOMATED 269 10^3/uL (150-450); RED BLOOD COUNT 4.96 10^6/uL (4.30-6.10); WHITE BLOOD COUNT 7.9 10^3/uL (4.0-10.0)
[2021-11-27 17:58] LABS: AMPHETAMINES LEVEL URINE NEGATIVE (NEGATIVE); BARBITURATES URINE NEGATIVE (NEGATIVE); BENZODIAZEPINES URINE NEGATIVE (NEGATIVE); CANNABINOIDS URINE NEGATIVE (NEGATIVE); COCAINE METABOLITE URINE NEGATIVE (NEGATIVE); METHADONE URINE NEGATIVE (NEGATIVE); OPIATES URINE NEGATIVE (NEGATIVE); PHENCYCLIDINE URINE NEGATIVE (NEGATIVE)
[2021-11-27 18:23] LABS: ACETAMINOPHEN LEVEL < 2.0 UG/ML (10.0-30.0); ALBUMIN 3.9 GM/DL (3.2-5.2); ALT/SGPT 88 U/L (12-78); BILIRUBIN,DIRECT 0.2 MG/DL (0.0-0.2); BILIRUBIN,TOTAL 0.4 MG/DL (0.2-1.0); BLOOD UREA NITROGEN 6 MG/DL (7-18); CALCIUM LEVEL 8.4 MG/DL (8.5-10.1); CARBON DIOXIDE LEVEL 28 MEQ/L (21-32); CHLORIDE LEVEL 109 MEQ/L (98-107); ETHYL ALCOHOL (ETHANOL) < 0.003 % (0.000-0.010); GLOMERULAR FILTRATION RATE > 60.0 (>60); GLUCOSE, FASTING 94 MG/DL (70-100); POTASSIUM SERUM 3.6 MEQ/L (3.5-5.1); SALICYLATE LEVEL < 1.7 MG/DL (5.0-30.0); SODIUM LEVEL 141 MEQ/L (136-145); TOTAL PROTEIN 6.5 GM/DL (6.4-8.2); VALPROIC ACID (DEPAKOTE) < 3.0 UG/ML (50.0-100.0)
== END 2021-11-27 20:08 | disposition home or self-care (01) ==
LOC: M ED 17:11
DX: F43.0 Acute stress reaction (principal); F31.9 Bipolar disorder, unspecified; R56.9 Unspecified convulsions; F10.10 Alcohol abuse, uncomplicated; Z87.442 Personal history of urinary calculi; F12.10 Cannabis abuse, uncomplicated; Z79.899 Other long term (current) drug therapy

== ENCOUNTER 2021-11-27 22:37 | Emergency (ER) | payer MEDICAID | END 2021-11-28 00:16 | disposition left against medical advice (07) | LOC: M ED 22:37 | DX: Z53.21 Procedure and treatment not carried out due to patient leaving prior to being seen by health care provider (principal) ==

== ENCOUNTER 2021-12-11 18:27 | Emergency (ER) | payer MEDICAID ==
[2021-12-11 18:43] VITALS: BP 152/90
== END 2021-12-11 20:30 | disposition home or self-care (01) ==
LOC: M ED 18:27
DX: F20.9 Schizophrenia, unspecified (principal)

== ENCOUNTER 2021-12-17 20:54 | Emergency (ER) | payer MEDICAID ==
[~2021-12-17] VITALS: Ht 177.8 cm; Wt 80.0 kg
[2021-12-17 22:03] VITALS: BP 165/99
== END 2021-12-17 22:44 | disposition home or self-care (01) ==
LOC: M ED 20:54
DX: F43.0 Acute stress reaction (principal); F31.9 Bipolar disorder, unspecified; R56.9 Unspecified convulsions; Z87.820 Personal history of traumatic brain injury; Z87.442 Personal history of urinary calculi; F90.9 Attention-deficit hyperactivity disorder, unspecified type; F42.9 Obsessive-compulsive disorder, unspecified; Z79.899 Other long term (current) drug therapy

== ENCOUNTER 2022-01-01 08:16 | Emergency (ER) | payer MEDICAID ==
[2022-01-01] MEDS ORDERED: diphenhydrAMINE 50MG/ML VIAL (J1200) IM ONE (09:20)
[2022-01-01] MEDS ORDERED: LORazepam 2 MG/ML VIAL IM ONE (09:20)
[2022-01-01] MEDS ORDERED: HALOPERIDOL 5MG/ML VIAL (J1630 PER 1) IM ONE (09:20)
[2022-01-01 11:45] LABS: HEMATOCRIT 43.6 % (42.0-52.0); HEMOGLOBIN 14.9 g/dl (13.5-17.5); MEAN CORPUSCULAR HEMOGLOBIN 31.3 pg (27.0-33.0); MEAN CORPUSCULAR HGB CONC 34.2 g/dl (32.0-36.5); MEAN CORPUSCULAR VOLUME 91.6 fl (80.0-96.0); PLATELET COUNT, AUTOMATED 252 10^3/uL (150-450); RED BLOOD COUNT 4.76 10^6/uL (4.30-6.10); WHITE BLOOD COUNT 5.7 10^3/uL (4.0-10.0)
[2022-01-01 12:20] LABS: RSV AMPLIFICATION NEGATIVE (NEGATIVE)
[2022-01-01 12:38] LABS: ACETAMINOPHEN LEVEL < 2.0 UG/ML (10.0-30.0); ALBUMIN 3.9 GM/DL (3.2-5.2); ALT/SGPT 34 U/L (12-78); BILIRUBIN,DIRECT 0.1 MG/DL (0.0-0.2); BILIRUBIN,TOTAL 0.3 MG/DL (0.2-1.0); BLOOD UREA NITROGEN 7 MG/DL (7-18); CALCIUM LEVEL 8.1 MG/DL (8.5-10.1); CARBON DIOXIDE LEVEL 26 MEQ/L (21-32); CHLORIDE LEVEL 111 MEQ/L (98-107); CREATININE FOR GFR 0.68 MG/DL (0.70-1.30); ETHYL ALCOHOL (ETHANOL) 0.053 % (0.000-0.010); GLOMERULAR FILTRATION RATE > 60.0 (>60); GLUCOSE, FASTING 83 MG/DL (70-100); SALICYLATE LEVEL < 1.7 MG/DL (5.0-30.0); SODIUM LEVEL 143 MEQ/L (136-145); TOTAL PROTEIN 6.7 GM/DL (6.4-8.2)
[2022-01-01 16:09] LABS: AMPHETAMINES LEVEL URINE NEGATIVE (NEGATIVE); BARBITURATES URINE NEGATIVE (NEGATIVE); BENZODIAZEPINES URINE NEGATIVE (NEGATIVE); CANNABINOIDS URINE NEGATIVE (NEGATIVE); COCAINE METABOLITE URINE NEGATIVE (NEGATIVE); METHADONE URINE NEGATIVE (NEGATIVE); OPIATES URINE NEGATIVE (NEGATIVE); PHENCYCLIDINE URINE NEGATIVE (NEGATIVE)
[2022-01-01] MEDS ORDERED: HOME MED LIST COMPLETE! XX SCH (17:30)
[2022-01-02 05:45] VITALS: BP 110/72
[2022-01-02] MEDS ORDERED: ACETAMINOPHEN TAB 650MG DOSE (2X325MG) PO ONE (12:25)
== END 2022-01-02 14:16 | disposition home or self-care (01) ==
LOC: M ED 08:16
DX: F25.0 Schizoaffective disorder, bipolar type (principal); Z87.442 Personal history of urinary calculi; F12.10 Cannabis abuse, uncomplicated; F10.10 Alcohol abuse, uncomplicated
CPT/HCPCS: 80048; 80076; 80143; 80307; 82077; 84443; 85027; 87631; 96372; 99285; J1200; J1630; J2060

== ENCOUNTER 2022-01-14 19:47 | Emergency (ER) | payer MEDICAID ==
[~2022-01-14] VITALS: Ht 175.3 cm; Wt 86.8 kg
[2022-01-14 20:00] VITALS: BP_DIAS 91
[2022-01-14 21:19] VITALS: BP_SYST 83
== END 2022-01-14 21:22 | disposition home or self-care (01) ==
LOC: M ED 19:47
DX: F43.0 Acute stress reaction (principal); F31.9 Bipolar disorder, unspecified; F90.9 Attention-deficit hyperactivity disorder, unspecified type; F42.9 Obsessive-compulsive disorder, unspecified; Z87.442 Personal history of urinary calculi; F12.10 Cannabis abuse, uncomplicated

== ENCOUNTER 2022-01-20 16:02 | Emergency (ER) | payer MEDICAID ==
[~2022-01-20] VITALS: Ht 175.3 cm; Wt 89.3 kg
[2022-01-20] MEDS ORDERED: DIVA500T9 (16:15)
[2022-01-20] MEDS ORDERED: QUET300T2 (16:15)
== END 2022-01-20 17:32 | disposition left against medical advice (07) ==
LOC: M ED 16:02
DX: F43.0 Acute stress reaction (principal); Z53.9 Procedure and treatment not carried out, unspecified reason; F31.89 Other bipolar disorder; F43.10 Post-traumatic stress disorder, unspecified; Z87.442 Personal history of urinary calculi

== ENCOUNTER 2022-01-20 22:31 | Emergency (ER) | payer MEDICAID ==
[~2022-01-20] VITALS: Ht 185.4 cm; Wt 87.7 kg
[2022-01-20 22:31] VITALS: BP 126/87
[~2022-01-20 22:31] MED LIST changes: +DIVA500T9; +QUET300T2
== END 2022-01-20 23:00 | disposition left against medical advice (07) ==
LOC: M ED 22:31
DX: Z53.21 Procedure and treatment not carried out due to patient leaving prior to being seen by health care provider (principal)

== ENCOUNTER 2022-02-10 04:42 | Emergency (ER) | payer MEDICAID ==
[~2022-02-10] VITALS: Ht 175.3 cm; Wt 85.9 kg
[~2022-02-10 04:42] MED LIST changes: -DIVA500T9; +med rec comment
[2022-02-10 04:55] VITALS: BP 148/69
== END 2022-02-10 05:25 | disposition home or self-care (01) ==
LOC: M ED 04:42
DX: F31.9 Bipolar disorder, unspecified (principal); F19.10 Other psychoactive substance abuse, uncomplicated; F10.10 Alcohol abuse, uncomplicated; Z79.899 Other long term (current) drug therapy

== ENCOUNTER 2022-02-21 01:13 | Emergency (ER) | payer MEDICAID ==
[~2022-02-21] VITALS: Ht 170.2 cm; Wt 87.8 kg
[2022-02-21 02:30] VITALS: BP 143/80
== END 2022-02-21 07:59 | disposition home or self-care (01) ==
LOC: M ED 01:13
DX: R45.4 Irritability and anger (principal); F31.9 Bipolar disorder, unspecified; F41.9 Anxiety disorder, unspecified; F42.9 Obsessive-compulsive disorder, unspecified; Z79.899 Other long term (current) drug therapy

== ENCOUNTER 2022-03-04 18:58 | Inpatient (IN) | payer MEDICAID ==
[~2022-03-04] VITALS: Ht 172.7 cm; Wt 81.8 kg
[2022-03-04] MEDS ORDERED: LORazepam 1 MG TAB PO ONE (19:40)
[2022-03-04 19:47] LABS: HEMATOCRIT 50.4 % (42.0-52.0); HEMOGLOBIN 16.9 g/dl (13.5-17.5); MEAN CORPUSCULAR HEMOGLOBIN 31.7 pg (27.0-33.0); MEAN CORPUSCULAR HGB CONC 33.5 g/dl (32.0-36.5); MEAN CORPUSCULAR VOLUME 94.6 fl (80.0-96.0); PLATELET COUNT, AUTOMATED 297 10^3/uL (150-450); RED BLOOD COUNT 5.33 10^6/uL (4.30-6.10)
[2022-03-04 20:17] LABS: RSV AMPLIFICATION NEGATIVE (NEGATIVE)
[2022-03-04 20:28] LABS: ACETAMINOPHEN LEVEL < 2.0 UG/ML (10.0-30.0); ALBUMIN 4.6 GM/DL (3.2-5.2); ALT/SGPT 39 U/L (12-78); BILIRUBIN,DIRECT 0.2 MG/DL (0.0-0.2); BILIRUBIN,TOTAL 0.9 MG/DL (0.2-1.0); BLOOD UREA NITROGEN 12 MG/DL (7-18); CALCIUM LEVEL 9.7 MG/DL (8.5-10.1); CARBON DIOXIDE LEVEL 29 MEQ/L (21-32); CHLORIDE LEVEL 107 MEQ/L (98-107); ETHYL ALCOHOL (ETHANOL) < 0.003 % (0.000-0.010); GLOMERULAR FILTRATION RATE > 60.0 (>60); GLUCOSE, FASTING 102 MG/DL (70-100); POTASSIUM SERUM 4.7 MEQ/L (3.5-5.1); SALICYLATE LEVEL < 1.7 MG/DL (5.0-30.0); SODIUM LEVEL 139 MEQ/L (136-145); TOTAL PROTEIN 7.7 GM/DL (6.4-8.2); VALPROIC ACID (DEPAKOTE) < 3.0 UG/ML (50.0-100.0)
[2022-03-04 20:51] LABS: AMPHETAMINES LEVEL URINE NEGATIVE (NEGATIVE); BARBITURATES URINE NEGATIVE (NEGATIVE); BENZODIAZEPINES URINE NEGATIVE (NEGATIVE); CANNABINOIDS URINE POSITIVE (NEGATIVE); COCAINE METABOLITE URINE NEGATIVE (NEGATIVE); METHADONE URINE NEGATIVE (NEGATIVE); OPIATES URINE NEGATIVE (NEGATIVE); PHENCYCLIDINE URINE NEGATIVE (NEGATIVE)
[2022-03-04] MEDS ORDERED: QUEtiapine FUMARATE 100 MG TAB PO ONE (23:55)
[2022-03-04] MEDS ORDERED: DIVALPROEX 500MG *ER* TAB PO ONE (23:55)
[2022-03-05] MEDS ORDERED: HOME MED LIST COMPLETE! XX SCH (00:15)
[2022-03-05] MEDS: DIVALPROEX 500MG *ER* TAB PO SCH ×2 (09:55→21:00)
[2022-03-05] MEDS: LORazepam 2 MG TAB PO ONE ×2 (16:00→21:00)
[2022-03-05] MEDS: OLANZapine ORAL DISINTEGRATING TAB 5MG PO ONE ×2 (16:00→21:00)
[2022-03-05] MEDS: QUEtiapine FUMARATE 100 MG TAB PO SCH (21:00)
[2022-03-06] MEDS: DIVALPROEX 500MG *ER* TAB PO SCH ×2 (10:33→21:24)
[2022-03-06] MEDS: QUEtiapine FUMARATE 100 MG TAB PO SCH (21:27)
[2022-03-07] MEDS ORDERED: NICOTINE 21MG/24HR 1 EA TRANSDERMAL TD SCH (09:00)
[2022-03-07] MEDS: DIVALPROEX 500MG *ER* TAB PO SCH ×3 (09:32→21:35)
[2022-03-07] MEDS ORDERED: OLANZapine ORAL DISINTEGRATING TAB 5MG PO ONE (12:10)
[2022-03-07] MEDS ORDERED: IBUPROFEN 400MG TAB PO PRN (14:45)
[2022-03-07] MEDS ORDERED: LORazepam 1 MG TAB PO PRN (14:45)
[2022-03-07] MEDS ORDERED: MAALOX 30 ML SUSP *UDC PO PRN (14:45)
[2022-03-07] MEDS ORDERED: MOM 30ML SUSPENSION UDC PO PRN (14:45)
[2022-03-07] MEDS ORDERED: traZODone 50 MG TAB PO PRN (14:45)
[2022-03-07] MEDS: QUEtiapine FUMARATE 100 MG TAB PO SCH ×2 (20:53→21:00)
[2022-03-08] MEDS ORDERED: DIVALPROEX 500MG *ER* TAB PO SCH (09:00)
[2022-03-08] MEDS: NICOTINE 21MG/24HR 1 EA TRANSDERMAL TD SCH (09:00)
[2022-03-08] MEDS ORDERED: diphenhydrAMINE 50MG/ML VIAL (J1200) IM ONE (12:00)
[2022-03-08] MEDS ORDERED: LORazepam 2 MG/ML VIAL IM ONE (12:00)
[2022-03-08] MEDS ORDERED: HALOPERIDOL 5MG/ML VIAL (J1630 PER 1) IM ONE (12:00)
[2022-03-08] MEDS ORDERED: MOM 30ML SUSPENSION UDC PO PRN (13:25)
[2022-03-08] MEDS ORDERED: diphenhydrAMINE 25MG CAP PO PRN (13:25)
[2022-03-08] MEDS ORDERED: MAALOX 30 ML SUSP *UDC PO PRN (13:25)
[2022-03-08] MEDS ORDERED: IBUPROFEN 400MG TAB PO PRN (13:25)
[2022-03-08] MEDS ORDERED: LORazepam 1 MG TAB PO PRN (13:25)
[2022-03-08] MEDS ORDERED: traZODone 50 MG TAB PO PRN (13:25)
[2022-03-08] MEDS ORDERED: DIVALPROEX 500MG *ER* TAB PO ONE (14:00)
[2022-03-08 15:36] VITALS: BP 129/83
[2022-03-08] MEDS ORDERED: QUEtiapine FUMARATE 100 MG TAB PO SCH (21:00)
[2022-03-08] MEDS: QUEtiapine FUMARATE 100 MG TAB PO SCH (21:58)
[2022-03-09 06:49] VITALS: BP 131/74
[2022-03-09] MEDS ORDERED: DIVALPROEX 500MG *ER* TAB PO SCH (09:00)
[2022-03-09] MEDS: NICOTINE 21MG/24HR 1 EA TRANSDERMAL TD SCH (10:03)
[2022-03-09] MEDS: DIVALPROEX 500MG *ER* TAB PO SCH ×2 (10:21→20:11)
[2022-03-09 17:56] VITALS: BP 134/84
[2022-03-09] MEDS: QUEtiapine FUMARATE 100 MG TAB PO SCH (20:11)
[2022-03-10 06:10] VITALS: BP 142/92
[2022-03-10] MEDS: NICOTINE 21MG/24HR 1 EA TRANSDERMAL TD SCH (09:00)
[2022-03-10] MEDS: DIVALPROEX 500MG *ER* TAB PO SCH ×3 (09:00→20:55)
[2022-03-10] MEDS: FLUTICASONE PROP 0.05% NASAL SPRAY 16 GM (FLONASE) NARES PRN (14:51)
[2022-03-10 18:11] VITALS: BP 137/77
[2022-03-10] MEDS: QUEtiapine FUMARATE 100 MG TAB PO SCH (20:56)
[2022-03-11] MEDS: DIVALPROEX 500MG *ER* TAB PO SCH (08:58)
[2022-03-11] MEDS: NICOTINE 21MG/24HR 1 EA TRANSDERMAL TD SCH (08:58)
[2022-03-11 18:00] VITALS: BP 139/89
[2022-03-11] MEDS: DIVALPROEX 250MG *ER* TAB PO SCH (20:34)
[2022-03-11] MEDS: QUEtiapine FUMARATE 100 MG TAB PO SCH (20:35)
[2022-03-12 06:00] VITALS: BP 130/82
[2022-03-12] MEDS: NICOTINE 21MG/24HR 1 EA TRANSDERMAL TD SCH (09:00)
[2022-03-12] MEDS: DIVALPROEX 500MG *ER* TAB PO SCH (09:21)
[2022-03-12] MEDS: FLUTICASONE PROP 0.05% NASAL SPRAY 16 GM (FLONASE) NARES PRN (18:19)
[2022-03-12] MEDS: QUEtiapine FUMARATE 100 MG TAB PO SCH (20:00)
[2022-03-12] MEDS: DIVALPROEX 250MG *ER* TAB PO SCH (20:00)
[2022-03-13] MEDS: NICOTINE 21MG/24HR 1 EA TRANSDERMAL TD SCH (09:00)
[2022-03-13] MEDS: DIVALPROEX 500MG *ER* TAB PO SCH (09:19)
[2022-03-13] MEDS: FLUTICASONE PROP 0.05% NASAL SPRAY 16 GM (FLONASE) NARES PRN (11:34)
[2022-03-13 18:00] VITALS: BP 134/75
[2022-03-13] MEDS: DIVALPROEX 250MG *ER* TAB PO SCH (20:17)
[2022-03-13] MEDS: QUEtiapine FUMARATE 100 MG TAB PO SCH (20:17)
[2022-03-14] MEDS: NICOTINE 21MG/24HR 1 EA TRANSDERMAL TD SCH (09:00)
[2022-03-14] MEDS: DIVALPROEX 500MG *ER* TAB PO SCH (09:18)
[2022-03-14 18:00] VITALS: BP 144/89
[2022-03-14] MEDS: QUEtiapine FUMARATE 100 MG TAB PO SCH (20:01)
[2022-03-14] MEDS: DIVALPROEX 250MG *ER* TAB PO SCH (20:01)
[2022-03-14] MEDS: BENZTROPINE 1 MG TAB PO SCH (20:36)
[2022-03-15] MEDS ORDERED: FLUTISP NARES (08:21)
[2022-03-15] MEDS ORDERED: QUET100T2 PO (08:21)
[2022-03-15] MEDS ORDERED: DEPA500T2 PO ×2 (08:21→08:23)
[2022-03-15] MEDS ORDERED: BENZ-52 PO (08:21)
[2022-03-15] MEDS: DIVALPROEX 500MG *ER* TAB PO SCH (08:33)
[2022-03-15] MEDS: BENZTROPINE 1 MG TAB PO SCH (08:33)
[2022-03-15] MEDS: NICOTINE 21MG/24HR 1 EA TRANSDERMAL TD SCH (08:34)
== END 2022-03-15 14:36 | disposition home or self-care (01) | DRG 753 ==
LOC: M ED 18:58 → M ED INP 03-07 14:43 → UNDOADMIN 03-07 14:43 → M ED INP 03-08 13:22 → M PSY 03-08 16:22
PROVIDERS: ADMIT Psychiatry & Neurology Psychiatry; ATTEND Psychiatry & Neurology Psychiatry
DX: F31.9 Bipolar disorder, unspecified (principal); Z87.820 Personal history of traumatic brain injury; Z91.14 Patient's other noncompliance with medication regimen; F17.200 Nicotine dependence, unspecified, uncomplicated; Z79.899 Other long term (current) drug therapy; Z20.822 Contact with and (suspected) exposure to COVID-19; D72.829 Elevated white blood cell count, unspecified; G40.909 Epilepsy, unspecified, not intractable, without status epilepticus

== ENCOUNTER 2022-04-15 23:03 | Emergency (ER) | payer MEDICAID ==
[~2022-04-15] VITALS: Ht 177.8 cm; Wt 87.2 kg
[2022-04-15 23:03] VITALS: BP 130/81
[~2022-04-15 23:03] MED LIST changes: +BENZ-52 PO; +FLUTISP NARES
== END 2022-04-16 02:37 | disposition left against medical advice (07) ==
LOC: M ED 23:03
DX: Z53.21 Procedure and treatment not carried out due to patient leaving prior to being seen by health care provider (principal)

== ENCOUNTER 2022-04-23 23:10 | Emergency (ER) | payer MEDICAID | END 2022-04-24 00:40 | disposition left against medical advice (07) | LOC: M ED 23:10 | DX: Z53.21 Procedure and treatment not carried out due to patient leaving prior to being seen by health care provider (principal) ==

== ENCOUNTER 2022-04-27 23:52 | Emergency (ER) | payer MEDICAID ==
[~2022-04-27] VITALS: Ht 177.8 cm; Wt 86.3 kg
[2022-04-28 04:12] VITALS: BP 137/93
== END 2022-04-28 04:14 | disposition home or self-care (01) ==
LOC: M ED 23:52
DX: F43.0 Acute stress reaction (principal); Z79.899 Other long term (current) drug therapy

== ENCOUNTER 2022-04-30 17:21 | Emergency (ER) | payer MEDICAID ==
[~2022-04-30] VITALS: Ht 180.3 cm; Wt 84.1 kg
[2022-04-30 17:55] VITALS: BP 157/88
[2022-04-30 18:50] LABS: HEMATOCRIT 46.4 % (42.0-52.0); HEMOGLOBIN 15.8 g/dl (13.5-17.5); MEAN CORPUSCULAR HEMOGLOBIN 31.5 pg (27.0-33.0); MEAN CORPUSCULAR HGB CONC 34.1 g/dl (32.0-36.5); MEAN CORPUSCULAR VOLUME 92.6 fl (80.0-96.0); PLATELET COUNT, AUTOMATED 288 10^3/uL (150-450); RED BLOOD COUNT 5.01 10^6/uL (4.30-6.10); WHITE BLOOD COUNT 6.9 10^3/uL (4.0-10.0)
[2022-04-30 19:08] LABS: AMPHETAMINES LEVEL URINE NEGATIVE (NEGATIVE); BARBITURATES URINE NEGATIVE (NEGATIVE); BENZODIAZEPINES URINE NEGATIVE (NEGATIVE); CANNABINOIDS URINE POSITIVE (NEGATIVE); COCAINE METABOLITE URINE NEGATIVE (NEGATIVE); METHADONE URINE NEGATIVE (NEGATIVE); OPIATES URINE NEGATIVE (NEGATIVE); PHENCYCLIDINE URINE NEGATIVE (NEGATIVE)
[2022-04-30 19:36] LABS: BLOOD UREA NITROGEN 10 MG/DL (7-18); CARBON DIOXIDE LEVEL 28 MEQ/L (21-32); CHLORIDE LEVEL 106 MEQ/L (98-107); CREATININE FOR GFR 0.83 MG/DL (0.70-1.30); GLOMERULAR FILTRATION RATE > 60.0 (>60); GLUCOSE, FASTING 92 MG/DL (70-100); POTASSIUM SERUM 4.1 MEQ/L (3.5-5.1); SODIUM LEVEL 138 MEQ/L (136-145)
[2022-04-30 19:37] LABS: ACETAMINOPHEN LEVEL < 2.0 UG/ML (10.0-30.0); ALBUMIN 4.2 GM/DL (3.2-5.2); ALT/SGPT 29 U/L (12-78); BILIRUBIN,DIRECT 0.2 MG/DL (0.0-0.2); BILIRUBIN,TOTAL 0.7 MG/DL (0.2-1.0); CALCIUM LEVEL 9.2 MG/DL (8.5-10.1); ETHYL ALCOHOL (ETHANOL) < 0.003 % (0.000-0.010); SALICYLATE LEVEL < 1.7 MG/DL (5.0-30.0); THYROID STIMULATING HORMONE 0.605 uIU/ML (0.358-3.740); TOTAL PROTEIN 6.7 GM/DL (6.4-8.2)
[2022-04-30 19:52] LABS: RSV AMPLIFICATION NEGATIVE (NEGATIVE)
== END 2022-04-30 20:03 | disposition home or self-care (01) ==
LOC: M ED 17:21
DX: F43.0 Acute stress reaction (principal); R56.9 Unspecified convulsions; Z87.820 Personal history of traumatic brain injury; Z87.442 Personal history of urinary calculi; Z79.899 Other long term (current) drug therapy

== ENCOUNTER 2022-05-02 10:15 | Emergency (ER) | payer MEDICAID ==
[2022-05-02 12:35] LABS: HEMATOCRIT 45.5 % (42.0-52.0); HEMOGLOBIN 15.5 g/dl (13.5-17.5); MEAN CORPUSCULAR HEMOGLOBIN 31.5 pg (27.0-33.0); MEAN CORPUSCULAR HGB CONC 34.1 g/dl (32.0-36.5); MEAN CORPUSCULAR VOLUME 92.5 fl (80.0-96.0); PLATELET COUNT, AUTOMATED 265 10^3/uL (150-450); RED BLOOD COUNT 4.92 10^6/uL (4.30-6.10); WHITE BLOOD COUNT 11.4 10^3/uL (4.0-10.0)
[2022-05-02] MEDS ORDERED: ACETAMINOPHEN 325 MG TAB PO ONE (13:10)
[2022-05-02 13:18] LABS: AMPHETAMINES LEVEL URINE NEGATIVE (NEGATIVE); BARBITURATES URINE NEGATIVE (NEGATIVE); BENZODIAZEPINES URINE NEGATIVE (NEGATIVE); CANNABINOIDS URINE NEGATIVE (NEGATIVE); COCAINE METABOLITE URINE NEGATIVE (NEGATIVE); METHADONE URINE NEGATIVE (NEGATIVE); OPIATES URINE NEGATIVE (NEGATIVE); PHENCYCLIDINE URINE NEGATIVE (NEGATIVE)
[2022-05-02 13:42] LABS: ACETAMINOPHEN LEVEL < 2.0 UG/ML (10.0-30.0); ALBUMIN 3.8 GM/DL (3.2-5.2); ALT/SGPT 28 U/L (12-78); BILIRUBIN,DIRECT 0.2 MG/DL (0.0-0.2); BILIRUBIN,TOTAL 0.8 MG/DL (0.2-1.0); BLOOD UREA NITROGEN 8 MG/DL (7-18); CALCIUM LEVEL 8.3 MG/DL (8.5-10.1); CARBON DIOXIDE LEVEL 26 MEQ/L (21-32); CHLORIDE LEVEL 110 MEQ/L (98-107); CREATININE FOR GFR 0.88 MG/DL (0.70-1.30); ETHYL ALCOHOL (ETHANOL) < 0.003 % (0.000-0.010); GLOMERULAR FILTRATION RATE > 60.0 (>60); GLUCOSE, FASTING 91 MG/DL (70-100); POTASSIUM SERUM 4.1 MEQ/L (3.5-5.1); SALICYLATE LEVEL < 1.7 MG/DL (5.0-30.0); SODIUM LEVEL 140 MEQ/L (136-145); THYROID STIMULATING HORMONE 0.522 uIU/ML (0.358-3.740); TOTAL PROTEIN 6.4 GM/DL (6.4-8.2); VALPROIC ACID (DEPAKOTE) < 3.0 UG/ML (50.0-100.0)
[2022-05-02] MEDS ORDERED: DIVALPROEX 500 MG TAB PO ONE (13:45)
[2022-05-02 14:35] VITALS: BP 125/68
== END 2022-05-02 14:49 | disposition home or self-care (01) ==
LOC: M ED 10:15
DX: R56.9 Unspecified convulsions (principal); Z91.14 Patient's other noncompliance with medication regimen; F44.9 Dissociative and conversion disorder, unspecified; F10.10 Alcohol abuse, uncomplicated; Z79.899 Other long term (current) drug therapy

== ENCOUNTER 2022-05-09 22:22 | Emergency (ER) | payer MEDICAID ==
[~2022-05-09] VITALS: Ht 175.3 cm; Wt 86.4 kg
[2022-05-09 22:22] VITALS: BP 164/92
[~2022-05-09 22:22] MED LIST changes: +FLON1SPR
== END 2022-05-10 07:14 | disposition home or self-care (01) ==
LOC: M ED 22:22
DX: F41.8 Other specified anxiety disorders (principal); R56.9 Unspecified convulsions; Z87.442 Personal history of urinary calculi; Z79.899 Other long term (current) drug therapy